=== PATIENT | male | born 1960 ===

== ENCOUNTER 2017-08-10 01:56 | Emergency (ER) | payer MEDICAID ==
[2017-08-10 02:18] VITALS: BP 128/82; PULSE 86; RESP 22; TEMP 98.9; O2SAT 98
--- NOTE | 2017-08-10 02:27 | C.PDOC ---
History Of Present Illness 56 year old male with long standing history of alcohol abuse presents to the ED c/o B/L leg swelling for the past 4 years. Patient admits to heavy alcohol consumption tonight. Patient is ambulatory in the ED. Patient denies trauma, fall, injury, SOB, CP, weakness, numbness. Chief Complaint (Nursing): Substance Abuse History Per: Patient History/Exam Limitations: no limitations Onset/Duration Of Symptoms: Days Current Symptoms Are (Timing): Still Present Suicide/Self Injury Attempted (Context): None Modifying Factor(s): Alcohol Associated Symptoms: denies: Depression, Suicidal Thoughts, Suicidal Plan Recent travel outside of the [place]: No Additional History Per: Patient Past Medical History Reviewed: Historical Data, Nursing Documentation, Vital Signs Vital Signs: Last Vital Signs Temp 98.9 F 08/10/17 02:16 Pulse 86 08/10/17 02:16 Resp 22 08/10/17 02:16 BP 128/82 08/10/17 02:16 Pulse Ox 98 08/10/17 02:27 - Medical History PMH: No Chronic Diseases Surgical History: No Surg Hx Family History: States: Unknown Family Hx - Social History Hx Tobacco Use: No Hx Alcohol Use: Yes Hx Substance Use: No - Immunization History Hx Tetanus Toxoid Vaccination: No Hx Influenza Vaccination: No Hx Pneumococcal Vaccination: No Review Of Systems Constitutional: Negative for: Fever, Chills Cardiovascular: Negative for: Chest Pain Gastrointestinal: Negative for: Abdominal Pain Musculoskeletal: Positive for: Leg Pain Skin: Negative for: Rash Psych: Negative for: Depression, Suicidal ideation Physical Exam - Physical Exam Appears: Non-toxic, No Acute Distress Skin: Normal Color, Warm, Dry Head: Atraumatic, Normacephalic Eye(s): bilateral: Normal Inspection Nose: No Discharge Oral Mucosa: Moist Neck: Normal ROM, Supple Chest: Symmetrical Cardiovascular: Rhythm Regular, No Murmur Respiratory: Normal Breath Sounds, No Rales, No Rhonchi, No Wheezing Gastrointestinal/Abdominal: Soft, No Tenderness, No Guarding, No Rebound Extremity: Normal ROM, No Tenderness, Capillary Refill (< 2 seconds), Swelling ( B/L pitting edema ) Extremity: Bilateral: Normal Color And Temperature, Normal ROM Pulses: Left Dorsalis Pedis: Normal, Right Dorsalis Pedis: Normal Neurological/Psych: Oriented x3, Normal Motor, Normal Sensation Gait: Steady ED Course And Treatment O2 Sat by Pulse Oximetry: 98 (On RA) Pulse Ox Interpretation: Normal Medical Decision Making Medical Decision Making: Impression: alcohol abuse Patient was ambulatory in the ED with no problem, patient was stable for D/C Disposition - Disposition Referrals: Non [facility] Provider, [Primary Care Provider] - Disposition: HOME/ ROUTINE Disposition Time: 02:26 Condition: FAIR Instructions: Dependent Edema (DC), Alcohol Abuse and Alcoholism (DC) Forms: Frequency (Lao) - Clinical Impression Clinical Impression: Alcohol intoxication, Chronic venous stasis dermatitis - Scribe Statement The provider has reviewed the documentation as recorded by the Scribe Neel Johnson All medical record entries made by the Scribe were at my direction and personally dictated by me. I have reviewed the chart and agree that the record accurately reflects my personal performance of the history, physical exam, medical decision making, and the department course for this patient. I have also personally directed, reviewed, and agree with the discharge instructions and disposition.
== END 2017-08-10 02:57 | disposition home or self-care (01) ==
LOC: C.ER 01:56 → SUPCPDRO 01:56 → C.ER 02:57
DX: F10.129 Alcohol abuse with intoxication, unspecified (principal); Y90.9 Presence of alcohol in blood, level not specified; I87.8 Other specified disorders of veins; I87.2 Venous insufficiency (chronic) (peripheral)

== ENCOUNTER 2018-02-27 11:25 | Inpatient (IN) | payer MEDICAID ==
[2018-02-27] MEDS ORDERED: Sodium Chloride 0.9% 1,000 ML IV ONE ×2 (12:09→15:45)
--- NOTE | 2018-02-27 12:23 | C.PDOC ---
History Of Present Illness 57 y/o male , homeless, hx of alcohol abuse, brought to ER by BLS for medical evaluation after he was found on someone's property. Currently, pt appears intoxicated, ith strong alcohol odor, arousable to verbal stimuli. Pt is unable to give history of present illness, appears not in any apparent distress. <Ynes Gill - Last Filed: 02/27/18 15:27> <Sheryl Rob - Last Filed: 02/27/18 12:57> History Per: EMS History/Exam Limitations: intoxication <Ynes Gill - Last Filed: 02/27/18 15:27> Time Seen by Provider: 02/27/18 12:09 Chief Complaint (Nursing): Substance Abuse Past Medical History Vital Signs: Last Vital Signs Temp 84 F L 02/27/18 11:54 Pulse 127 H 02/27/18 11:54 Resp 24 02/27/18 11:54 BP Pulse Ox 100 02/27/18 12:37 <Sheryl Rob - Last Filed: 02/27/18 12:57> Reviewed: Historical Data, Nursing Documentation, Vital Signs Vital Signs: Last Vital Signs Temp 84 F L 02/27/18 11:54 Pulse 127 H 02/27/18 11:54 Resp 24 02/27/18 11:54 BP Pulse Ox 100 02/27/18 11:54 Family History: States: Unknown Family Hx - Social History Hx Tobacco Use: No Hx Alcohol Use: Yes Hx Substance Use: No - Immunization History Hx Tetanus Toxoid Vaccination: No Hx Influenza Vaccination: No Hx Pneumococcal Vaccination: No <Ynes Gill - Last Filed: 02/27/18 15:27> Review Of Systems Review Of Systems: ROS cannot be obtained secondary to pt's inabilty to answer questions. (intoxicated) <Ynes Gill - Last Filed: 02/27/18 15:27> Physical Exam - Physical Exam Appears: No Acute Distress, Other (intoxicated, awake) Skin: Normal Color, Warm, Dry, No Ecchymosis Head: Atraumatic, Normacephalic Eye(s): bilateral: PERRL Nose: No Flaring Oral Mucosa: Moist, Other ((+)strong alcohol odor) Throat: No Drooling Neck: Trachea Midline, Supple Chest: Symmetrical Cardiovascular: No Murmur, No JVD Respiratory: No Decreased Breath Sounds, No Accessory Muscle Use, No Rales, No R honchi, No Stridor, No Wheezing Gastrointestinal/Abdominal: Soft, No Tenderness, No Distention, No Guarding, No Rebound Extremity: Normal ROM, No Swelling Neurological/Psych: Normal Motor, Normal Sensation, Normal Reflexes, Other (limited secondary to patient's condition) <Ynes Gill - Last Filed: 02/27/18 15:27> ED Course And Treatment - Laboratory Results Result Diagrams: 02/27/18 12:58 02/27/18 12:58 Lab Interpretation: Abnormal ECG: Interpreted By Me, Viewed By Me ECG Rhythm: Sinus Rhythm Interpretation Of ECG: NSR@70/min, RAD,prolong QT, no acute ST-T changes. note: limited due to motion artifacts Rate From EC O2 Sat by Pulse Oximetry: 100 (RA) Pulse Ox Interpretation: Normal - Radiology CXR: Read By Radiologist CXR Interpretation: Yes: Infiltrates (RLL) Progress Note: OBS pt in ED for 2 hours. case discussed with ED attending who evaluated patient as well. Blood work review, code sepsis called. Tx initiated per sepsis protocol. Case discussed with ICU attending and admission arranged to ICU. case discussed with hospitalist , admission arranged to service. <Ynes Gill - Last Filed: 02/27/18 15:27> Progress - Re-Evaluation Re-evaluation Note: 02/27/18 12:57 AWAKE INTERACTIVE. "I'M TRYING TO PEE". POOR HISTORIAN. VSS. IVF IN PROGRESS, LABS PENDING. - Data Reviewed Data Reviewed: Lab, Diagnostic imaging, EKG, Old records - Critical Care Citical Care: Excluding Proc Time Critical Care Time: 120 minutes <Sheryl Rob - Last Filed: 02/27/18 12:57> Critical Care Time - Critical Care Note Total Time (in mins): 120 Documented critical care: time excludes all time spent performing seperately billable procedures. <Ynes Gill - Last Filed: 02/27/18 15:27> Disposition <Sheryl Rob - Last Filed: 02/27/18 12:57> - Disposition Disposition Time: 14:04 <Ynes Gill - Last Filed: 02/27/18 15:27> - Disposition Disposition: HOSPITALIZED Condition: STABLE Forms: [facility] (C[place] Rican) - Clinical Impression Clinical Impression: Sepsis, Pneumonia - PA / YOKE PRESSER / Resident Statement MD/DO has reviewed & agrees with the documentation as recorded. - Scribe Statement The provider has reviewed the documentation as recorded by the Scribe Kyra Narvaez Provider Attestation All medical record entries made by the Scribe were at my direction and per sonally dictated by me. I have reviewed the chart and agree that the record accurately reflects my personal performance of the history, physical exam, medical decision making, and the department course for this patient. I have also personally directed, reviewed, and agree with the discharge instructions and disposition. <Ynes Gill - Last Filed: 02/27/18 15:27>
[2018-02-27 12:27] LABS: ABG ALLEN TEST POS; ARTERIAL BLOOD GAS HCO3 21.8 mmol/L (21-28); ARTERIAL BLOOD GAS O2 SAT 100.8 % (95-98); ARTERIAL BLOOD GAS PCO2 33 mm/Hg (35-45); ARTERIAL BLOOD GAS PH 7.39 (7.35-7.45); ARTERIAL BLOOD GAS PO2 121 mm/Hg (80-100)
[2018-02-27] MEDS ORDERED: Vancomycin 1 gm/NS 200 ml 1 GM/200 ML BAG IVPB STA (12:43)
[2018-02-27] MEDS ORDERED: Piperacill/Tazo 4.5gm in Dex 4.5 GM/100 ML BAG IVPB STA (12:43)
[2018-02-27 13:01] LABS: VENOUS BLOOD GAS BASE EXCESS -3.5 mmol/L (0.0-2.0); VENOUS BLOOD GAS PCO2 41 mmHg (40-60); VENOUS BLOOD GAS PO2 26 mm/Hg (30-55); VENOUS BLOOD PH 7.34 (7.32-7.43)
[2018-02-27 13:05] LABS: EOS # 0.2 K/uL (0.0-0.7); MONO # 0.7 K/uL (0.0-0.8); NEUT # 6.7 K/uL (1.8-7.0); RBC 2.92 Mil/uL (4.40-5.90)
[2018-02-27 13:11] LABS: BASO % 0.5 % (0.0-2.0); EOS % 2.1 % (0.0-4.0); HEMOGLOBIN 9.6 g/dL (12.0-18.0); LYMPH # 0.4 K/uL (1.0-4.3); LYMPH % 4.6 % (20.0-40.0); MEAN CELL VOLUME 94.2 fL (80.0-94.0); MEAN CORPUSCULAR HEMOGLOBIN 32.8 pg (27.0-31.0); MEAN CORPUSCULAR HGB CONC 34.8 g/dL (33.0-37.0); MEAN PLATELET VOLUME 9.2 fL (7.2-11.7); MONO % 8.8 % (0.0-10.0); NRBC % 0.1 % (0.0-2.0); RED CELL DISTRIBUTION WIDTH 18.1 % (11.5-14.5)
[2018-02-27 13:12] LABS: PH,URINE 6.5 (5.0-8.0); URINE BILIRUBIN MODERATE (NEGATIVE); URINE BLOOD SMALL (NEGATIVE); URINE CLARITY Clear (Clear); URINE GLUCOSE (UA) 100 mg/dL (Normal); URINE PROTEIN TRACE mg/dL (NEGATIVE)
[2018-02-27 13:13] LABS: SQUAMOUS EPITHIAL 1 /hpf (0-5); URINE BACTERIA OCC (<OCC); URINE LEUKOCYTE ESTERASE NEGATIVE Leu/uL (Negative)
[2018-02-27 13:13] LABS: PLATELET COUNT 87 K/uL (130-400)
[2018-02-27 13:14] LABS: INR 2.5
[2018-02-27 13:14] LABS: URINE COLOR YELLOW (YELLOW)
[2018-02-27 13:17] LABS: ALB/GLOB RATIO 0.7 (1.0-2.1); ALT/SGPT 77 U/L (21-72); AST/SGOT 494 U/L (17-59); BLOOD UREA NITROGEN 5 mg/dL (9-20); CALCIUM 7.4 mg/dl (8.6-10.4); GFR NON-AFRICAN AMERICAN > 60
--- NOTE | 2018-02-27 13:26 | RAD ---
Date of service: 02/27/2018 HISTORY: Sepsis Patient COMPARISON: No prior. FINDINGS: LUNGS: Right lower lobe infiltrate with air bronchograms consistent with acute pneumonia. PLEURA: No significant pleural effusion identified, no pneumothorax apparent. CARDIOVASCULAR: No atherosclerotic calcification present No radiographic findings to suggest acute or significant cardiovascular disease. OSSEOUS STRUCTURES: No significant abnormalities. VISUALIZED UPPER ABDOMEN: Normal. OTHER FINDINGS: None. IMPRESSION: Right lower lobe infiltrate/pneumonia.
[2018-02-27 13:31] LABS: BANDS 10 % (0-2); LYMPHOCYTE 5 % (20-40); MONOCYTE 6 % (0-10); NEUTROPHIL 79 % (50-75); TOTAL CELLS COUNTED 100
[2018-02-27 13:32] LABS: ANISOCYTOSIS SLIGHT; BURR CELLS SLIGHT; HYPOCHROMIC SLIGHT; PLATELET ESTIMATE DECREASED (NORMAL); POIKILOCYTOSIS SLIGHT; TARGET CELLS SLIGHT
[2018-02-27 13:38] LABS: BARBITURATES, UR NEGATIVE (NEGATIVE); BENZODIAZEPINES, UR NEGATIVE (NEGATIVE); OPIATES, UR NEGATIVE (NEGATIVE); PHENCYCLIDINE, UR NEGATIVE (NEGATIVE)
[2018-02-27] MEDS ORDERED: Piperacill/Tazo 3.375gm in Dex 3.375 GM/50 ML BAG IVPB SCH (15:15)
[2018-02-27] MEDS ORDERED: Vancomycin 1 gm/NS 200 ml 1 GM/200 ML BAG IVPB SCH (15:15)
[2018-02-27 15:30] LABS: B-TYPE NATRIURETIC PEPTIDE 332 pg/mL (0-900)
[2018-02-27] MEDS: Piperacill/Tazo 3.375gm in Dex 3.375 GM/50 ML BAG IVPB SCH ×2 (16:54→22:19)
[2018-02-27] MEDS: Vancomycin 1 gm/NS 200 ml 1 GM/200 ML BAG IVPB SCH (16:55)
--- NOTE | 2018-02-27 17:09 | CP.PCM.CON ---
History of Present Illness - History of Present Illness History of Present Illness: PGY1 Critical Care Consult Note for Dr. James Patient is a 57-year-old male with a past medical history of multiple visits to the ED for alcohol intoxication who presents to [facility] brought in by daniella marcos for alcohol intoxication. Of note, the patient is homeless and was found on someone else's property. ROS could not be obtained due to clinical condition. While in the ED: chest x-ray was obtained and revealed right lower lobe infiltrates. Patient treated empirically CAP. Pending cultures. Patient currently not arousable to painful stimuli, however he grimaces. A complete HPI and ROS could not be obtained due clinical condition. Review of Systems - Review of Systems Systems not reviewed;Unavailable: Acuity of Condition Past Patient History - Infectious Disease Hx of Infectious Diseases: None - Past Social History Smoking Status: Never Smoked - PSYCHIATRIC Hx Substance Use: No - SURGICAL HISTORY Hx Surgeries: No - ANESTHESIA Hx Anesthesia: No Meds Allergies/Adverse Reactions: Allergies Allergy/AdvReac Type Severity Reaction Status Date / Time No Known Allergies Allergy Verified 02/27/18 12:04 - Medications Medications: Current Medications Sodium Chloride (Sodium Chloride 0.9%) 1,000 mls @ 250 mls/hr IV .Q4H ONE Stop: 02/27/18 19:44 Last Admin: 02/27/18 16:58 Dose: 250 mls/hr Piperacillin Sod/Tazobactam Sod (Zosyn 3.375 Gm Iv Premix) 3.375 gm in 50 mls @ 100 mls/hr IVPB Q6H ASHLEIGH; Protocol Last Admin: 02/27/18 16:54 Dose: Not Given Vancomycin/Sodium Chloride (Vancomycin 1 Gm/Ns 200 Ml) 1 gm in 200 mls @ 133.333 mls/hr IVPB Q12H ASHLEIGH; Protocol Stop: 03/04/18 16:01 Last Admin: 02/27/18 16:55 Dose: Not Given Lorazepam (Ativan) 1 mg IVP Q6H PRN PRN Reason: Agitation Pantoprazole Sodium (Protonix Inj) 40 mg IVP DAILY ASHLEIGH Physical Exam - Head Exam Head Exam: ATRAUMATIC, NORMAL INSPECTION, NORMOCEPHALIC - Eye Exam Eye Exam: PERRL, Scleral icterus - ENT Exam ENT Exam: Mucous Membranes Dry - Neck Exam Neck exam: Positive for: Normal Inspection - Respiratory Exam Respiratory Exam: NORMAL BREATHING PATTERN. absent: Accessory Muscle Use, Chest Wall Tenderness - Cardiovascular Exam Cardiovascular Exam: REGULAR RHYTHM, RRR, +S1, +S2 Additional comments: 83 bpm - GI/Abdominal Exam GI & Abdominal Exam: Soft. absent: Distended - Extremities Exam Extremities exam: Positive for: pedal edema. Negative for: normal inspection Additional comments: skin dry bilaterally edema noted bilaterally - Neurological Exam Neurological exam: Altered Additional comments: corneal reflex in tact patient not arousable to verbal and/or painful stimuli + grimace with sternal rub Results - Vital Signs Recent Vital Signs: Last Vital Signs Temp 89.9 F L 02/27/18 15:58 Pulse 78 02/27/18 15:58 Resp 14 02/27/18 15:58 BP 105/63 02/27/18 15:58 Pulse Ox 100 02/27/18 15:58 - Labs Result Diagrams: 02/27/18 12:58 02/27/18 12:58 Labs: Laboratory Results - last 24 hr 02/27/18 02/27/18 02/27/18 11:54 12:20 12:51 WBC RBC Hgb Hct MCV MCH MCHC RDW Plt Count MPV Neut % (Auto) Lymph % (Auto) [place] % (Auto) Eos % (Auto) Baso % (Auto) Neut # (Auto) Lymph # (Auto) [place] # (Auto) Eos # (Auto) Baso # (Auto) Neutrophils % (Manual) Band Neutrophils % Lymphocytes % (Manual) Monocytes % (Manual) Platelet Estimate Hypochromasia (manual) Poikilocytosis (manual Anisocytosis (manual) Target Cells [place] Cells PT INR APTT Puncture Site Rra pCO2 33 L pO2 121 H HCO3 21.8 ABG pH 7.39 ABG Total CO2 21.0 L ABG O2 Saturation 100.8 H ABG Base Excess -4.1 L Rei Test Pos ABG Potassium 2.5 L* VBG pH VBG pCO2 VBG HCO3 VBG Total CO2 VBG O2 Sat (Calc) VBG Base Excess VBG Potassium A-a O2 Difference -13.0 Respiratory Index -0.1 Sodium 123.0 L Chloride 86.0 L Glucose 101 Lactate 8.0 H* FiO2 21.0 Crit Value Called To Dr espinoza Crit Value Called By [facility] Crit Value Read Back Y Blood Gas Notified Time 1227 Potassium Carbon Dioxide Anion Gap BUN Creatinine Est GFR ( Amer) Est GFR (Non-Af Amer) POC Glucose (mg/dL) 104 Random Glucose Calcium Phosphorus Magnesium Total Bilirubin AST ALT Alkaline Phosphatase Total Creatine Kinase Troponin I NT-Pro-B Natriuret Pep Total Protein Albumin Globulin Albumin/Globulin Ratio Arterial Blood Potassium 2.5 L* Venous Blood Potassium Urine Color Yellow Urine Clarity Clear Urine pH 6.5 Ur Specific [place] 1.010 Urine Protein Trace Urine Glucose (UA) 100 Urine Ketones 15 Urine Blood Small Urine Nitrate Negative Urine Bilirubin Moderate Urine Urobilinogen 4.0 Ur Leukocyte Esterase Negative Urine WBC (Auto) 2 Urine RBC (Auto) 2 Ur Squamous Epith Cells 1 Urine Bacteria Occ H Urine Opiates Screen Urine Methadone Screen Ur Barbiturates Screen Ur Phencyclidine Scrn Ur Amphetamines Screen U Benzodiazepines Scrn U Oth Cocaine Metabols U Cannabinoids Screen Alcohol, Quantitative 02/27/18 02/27/18 02/27/18 12:51 12:55 12:58 WBC 8.0 RBC 2.92 L Hgb 9.6 L Hct 27.5 L MCV 94.2 H MCH 32.8 H MCHC 34.8 RDW 18.1 H Plt Count 87 L MPV 9.2 Neut % (Auto) 84.0 H Lymph % (Auto) 4.6 L [place] % (Auto) 8.8 Eos % (Auto) 2.1 Baso % (Auto) 0.5 Neut # (Auto) 6.7 Lymph # (Auto) 0.4 L [place] # (Auto) 0.7 Eos # (Auto) 0.2 Baso # (Auto) 0.0 Neutrophils % (Manual) 79 H Band Neutrophils % 10 H Lymphocytes % (Manual) 5 L Monocytes % (Manual) 6 Platelet Estimate Decreased L Hypochromasia (manual) Slight Poikilocytosis (manual Slight Anisocytosis (manual) Slight Target Cells Slight [place] Cells Slight PT INR APTT Puncture Site pCO2 pO2 26 L HCO3 ABG pH ABG Total CO2 ABG O2 Saturation ABG Base Excess Rei Test ABG Potassium VBG pH 7.34 VBG pCO2 41 VBG HCO3 20.7 VBG Total CO2 23.4 VBG O2 Sat (Calc) 40.6 VBG Base Excess -3.5 L VBG Potassium 2.7 L A-a O2 Difference Respiratory Index Sodium 124.0 L Chloride 87.0 L Glucose 98 Lactate 7.7 H* FiO2 21.0 Crit Value Called To Dr ray Crit Value Called By [facility] Crit Value Read Back Y Blood Gas Notified Time 1300 Potassium Carbon Dioxide Anion Gap BUN Creatinine Est GFR ( Amer) Est GFR (Non-Af Amer) POC Glucose (mg/dL) Random Glucose Calcium Phosphorus Magnesium Total Bilirubin AST ALT Alkaline Phosphatase Total Creatine Kinase Troponin I NT-Pro-B Natriuret Pep Total Protein Albumin Globulin Albumin/Globulin Ratio Arterial Blood Potassium Venous Blood Potassium 2.7 L Urine Color Urine Clarity Urine pH Ur Specific [place] Urine Protein Urine Glucose (UA) Urine Ketones Urine Blood Urine Nitrate Urine Bilirubin Urine Urobilinogen Ur Leukocyte Esterase Urine WBC (Auto) Urine RBC (Auto) Ur Squamous Epith Cells Urine Bacteria Urine Opiates Screen Negative Urine Methadone Screen Negative Ur Barbiturates Screen Negative Ur Phencyclidine Scrn Negative Ur Amphetamines Screen Negative U Benzodiazepines Scrn Negative U Oth Cocaine Metabols Negative U Cannabinoids Screen Negative Alcohol, Quantitative 02/27/18 02/27/18 12:58 12:58 WBC RBC Hgb Hct MCV MCH MCHC RDW Plt Count MPV Neut % (Auto) Lymph % (Auto) [place] % (Auto) Eos % (Auto) Baso % (Auto) Neut # (Auto) Lymph # (Auto) [place] # (Auto) Eos # (Auto) Baso # (Auto) Neutrophils % (Manual) Band Neutrophils % Lymphocytes % (Manual) Monocytes % (Manual) Platelet Estimate Hypochromasia (manual) Poikilocytosis (manual Anisocytosis (manual) Target Cells [place] Cells PT 27.0 H INR 2.5 APTT 40 H Puncture Site pCO2 pO2 HCO3 ABG pH ABG Total CO2 ABG O2 Saturation ABG Base Excess Rei Test ABG Potassium VBG pH VBG pCO2 VBG HCO3 VBG Total CO2 VBG O2 Sat (Calc) VBG Base Excess VBG Potassium A-a O2 Difference Respiratory Index Sodium 123 L Chloride 82 L Glucose Lactate FiO2 Crit Value Called To Crit Value Called By Crit Value Read Back Blood Gas Notified Time Potassium 3.0 L Carbon Dioxide 22 Anion Gap 21 H BUN 5 L Creatinine 0.5 L Est GFR ( Amer) > 60 Est GFR (Non-Af Amer) > 60 POC Glucose (mg/dL) Random Glucose 107 Calcium 7.4 L Phosphorus 1.3 L Magnesium 1.7 Total Bilirubin 7.9 H AST 494 H ALT 77 H Alkaline Phosphatase 202 H Total Creatine Kinase 589 H Troponin I < 0.0120 NT-Pro-B Natriuret Pep 332 Total Protein 7.5 Albumin 3.0 L Globulin 4.5 H Albumin/Globulin Ratio 0.7 L Arterial Blood Potassium Venous Blood Potassium Urine Color Urine Clarity Urine pH Ur Specific [place] Urine Protein Urine Glucose (UA) Urine Ketones Urine Blood Urine Nitrate Urine Bilirubin Urine Urobilinogen Ur Leukocyte Esterase Urine WBC (Auto) Urine RBC (Auto) Ur Squamous Epith Cells Urine Bacteria Urine Opiates Screen Urine Methadone Screen Ur Barbiturates Screen Ur Phencyclidine Scrn Ur Amphetamines Screen U Benzodiazepines Scrn U Oth Cocaine Metabols U Cannabinoids Screen Alcohol, Quantitative 287 H Assessment & Plan - Assessment and Plan (Free Text) Assessment: Patient is a 57-year-old male with a past medical history of multiple visits to the ED for alcohol intoxication who presents to [facility] brought in by ambulance for alcohol intoxication. Of note, the patient is homeless and was found on someone else's property. While in the ED: chest x-ray was obtained and revealed right lower lobe infiltrates. Patient treated empirically CAP. Pending cultures. Patient currently not arousable to painful stimuli, however he grimaces. Neuro: - Patient is altered - UDS pending - Ammonia level pending - Start lactulose - Hyponatremia - Hypothermia: warming blankets - Urine Na, urine osm, serum osm, pending - CT head without contrast ordered - CTA of head and neck ordered - Neuro checks Q2 CV: - No acute issues - EKG obtained - patient monitor Pulm: - CXR: left lower lobe infiltrates - Start empiric antibiotics for CAP - Monitor CBC with diff, ABG Renal: - Hyponatremia - Hypophosphatemia; replete as needed - Hypokalemia; replete as needed - Urine Na, urine osm, serum osm, pending - Monitor with CMP, Mg, Phos GI: - Abd ultrasound pending - NG tube - NPO except meds - PPx: protonix 40mg IVP daily ID: - Hepatitis panel ordered - Empiric antibiotics for CAP - MRSA screen pending - Blood cultures pending - Urine cultures pending PPx: - GI: Protonix 40mg IVP daily - DVT: SCD contraindicated Patient seen and case discussed with Dr. Jacob Miller PGY1
[2018-02-27] MEDS ORDERED: Potassium & Sodium Phosphate PO ONE (17:14)
[2018-02-27] MEDS ORDERED: Albumin Human 25% (12.5 gm/50 ml) IV ONE (17:27)
--- NOTE | 2018-02-27 17:30 | CP.PCM.HP ---
<Bobo Miller - Last Filed: 02/27/18 17:28> History of Present Illness - History of Present Illness History of Present Illness: PGY1 History and Physical Exam Note for Dr. Giraldo Patient is a 57-year-old male with a past medical history of multiple visits to the ED for alcohol intoxication who presents to [facility] brought in by ambulance for alcohol intoxication. Of note, the patient is homeless and was found on someone else's property. ROS could not be obtained due to clinical condition. While in the ED: chest x-ray was obtained and revealed right lower lobe infiltrates. Patient treated empirically CAP. Pending cultures. Patient currently not arousable to painful stimuli, however he grimaces. A complete HPI and ROS could not be obtained due clinical condition. Present on Admission - Present on Admission Any Indicators Present on Admission: No History of DVT/PE: No History of Uncontrolled Diabetes: No Urinary Catheter: No Decubitus Ulcer Present: No History Surgical Site Infection Following: None Review of Systems - Review of Systems Systems not reviewed;Unavailable: Acuity of Condition Past Patient History - Infectious Disease Hx of Infectious Diseases: None - Past Social History Smoking Status: Never Smoked - PSYCHIATRIC Hx Substance Use: No - SURGICAL HISTORY Hx Surgeries: No - ANESTHESIA Hx Anesthesia: No Meds Allergies/Adverse Reactions: Allergies Allergy/AdvReac Type Severity Reaction Status Date / Time No Known Allergies Allergy Verified 02/27/18 12:04 Physical Exam - Additional Findings Additional findings: - Head Exam Head Exam: ATRAUMATIC, NORMAL INSPECTION, NORMOCEPHALIC - Eye Exam Eye Exam: PERRL, Scleral icterus - ENT Exam ENT Exam: Mucous Membranes Dry - Neck Exam Neck exam: Positive for: Normal Inspection - Respiratory Exam Respiratory Exam: NORMAL BREATHING PATTERN. absent: Accessory Muscle Use, Chest Wall Tenderness - Cardiovascular Exam Cardiovascular Exam: REGULAR RHYTHM, RRR, +S1, +S2 Additional comments: 83 bpm - GI/Abdominal Exam GI & Abdominal Exam: Soft. absent: Distended - Extremities Exam Extremities exam: Positive for: pedal edema. Negative for: normal inspection Additional comments: skin dry bilaterally edema noted bilaterally Results - Vital Signs Recent Vital Signs: Last Vital Signs Temp 89.9 F L 02/27/18 15:58 Pulse 78 02/27/18 15:58 Resp 14 02/27/18 15:58 BP 105/63 02/27/18 15:58 Pulse Ox 100 02/27/18 15:58 - Labs Result Diagrams: 02/27/18 12:58 02/27/18 12:58 Labs: Laboratory Results - last 24 hr 02/27/18 02/27/18 02/27/18 11:54 12:20 12:51 WBC RBC Hgb Hct MCV MCH MCHC RDW Plt Count MPV Neut % (Auto) Lymph % (Auto) [place] % (Auto) Eos % (Auto) Baso % (Auto) Neut # (Auto) Lymph # (Auto) [place] # (Auto) Eos # (Auto) Baso # (Auto) Neutrophils % (Manual) Band Neutrophils % Lymphocytes % (Manual) Monocytes % (Manual) Platelet Estimate Hypochromasia (manual) Poikilocytosis (manual Anisocytosis (manual) Target Cells [place] Cells PT INR APTT Puncture Site Rra pCO2 33 L pO2 121 H HCO3 21.8 ABG pH 7.39 ABG Total CO2 21.0 L ABG O2 Saturation 100.8 H ABG Base Excess -4.1 L Rei Test Pos ABG Potassium 2.5 L* VBG pH VBG pCO2 VBG HCO3 VBG Total CO2 VBG O2 Sat (Calc) VBG Base Excess VBG Potassium A-a O2 Difference -13.0 Respiratory Index -0.1 Sodium 123.0 L Chloride 86.0 L Glucose 101 Lactate 8.0 H* FiO2 21.0 Crit Value Called To Dr espinoza Crit Value Called By [facility] Crit Value Read Back Y Blood Gas Notified Time 1227 Potassium Carbon Dioxide Anion Gap BUN Creatinine Est GFR ( Amer) Est GFR (Non-Af Amer) POC Glucose (mg/dL) 104 Random Glucose Calcium Phosphorus Magnesium Total Bilirubin AST ALT Alkaline Phosphatase Total Creatine Kinase Troponin I NT-Pro-B Natriuret Pep Total Protein Albumin Globulin Albumin/Globulin Ratio Arterial Blood Potassium 2.5 L* Venous Blood Potassium Urine Color Yellow Urine Clarity Clear Urine pH 6.5 Ur Specific [place] 1.010 Urine Protein Trace Urine Glucose (UA) 100 Urine Ketones 15 Urine Blood Small Urine Nitrate Negative Urine Bilirubin Moderate Urine Urobilinogen 4.0 Ur Leukocyte Esterase Negative Urine WBC (Auto) 2 Urine RBC (Auto) 2 Ur Squamous Epith Cells 1 Urine Bacteria Occ H Urine Opiates Screen Urine Methadone Screen Ur Barbiturates Screen Ur Phencyclidine Scrn Ur Amphetamines Screen U Benzodiazepines Scrn U Oth Cocaine Metabols U Cannabinoids Screen Alcohol, Quantitative 02/27/18 02/27/18 02/27/18 12:51 12:55 12:58 WBC 8.0 RBC 2.92 L Hgb 9.6 L Hct 27.5 L MCV 94.2 H MCH 32.8 H MCHC 34.8 RDW 18.1 H Plt Count 87 L MPV 9.2 Neut % (Auto) 84.0 H Lymph % (Auto) 4.6 L [place] % (Auto) 8.8 Eos % (Auto) 2.1 Baso % (Auto) 0.5 Neut # (Auto) 6.7 Lymph # (Auto) 0.4 L [place] # (Auto) 0.7 Eos # (Auto) 0.2 Baso # (Auto) 0.0 Neutrophils % (Manual) 79 H Band Neutrophils % 10 H Lymphocytes % (Manual) 5 L Monocytes % (Manual) 6 Platelet Estimate Decreased L Hypochromasia (manual) Slight Poikilocytosis (manual Slight Anisocytosis (manual) Slight Target Cells Slight Rhona Cells Slight PT INR APTT Puncture Site pCO2 pO2 26 L HCO3 ABG pH ABG Total CO2 ABG O2 Saturation ABG Base Excess Rei Test ABG Potassium VBG pH 7.34 VBG pCO2 41 VBG HCO3 20.7 VBG Total CO2 23.4 VBG O2 Sat (Calc) 40.6 VBG Base Excess -3.5 L VBG Potassium 2.7 L A-a O2 Difference Respiratory Index Sodium 124.0 L Chloride 87.0 L Glucose 98 Lactate 7.7 H* FiO2 21.0 Crit Value Called To Dr ray Crit Value Called By [facility] Crit Value Read Back Y Blood Gas Notified Time 1300 Potassium Carbon Dioxide Anion Gap BUN Creatinine Est GFR ( Amer) Est GFR (Non-Af Amer) POC Glucose (mg/dL) Random Glucose Calcium Phosphorus Magnesium Total Bilirubin AST ALT Alkaline Phosphatase Total Creatine Kinase Troponin I NT-Pro-B Natriuret Pep Total Protein Albumin Globulin Albumin/Globulin Ratio Arterial Blood Potassium Venous Blood Potassium 2.7 L Urine Color Urine Clarity Urine pH Ur Specific [place] Urine Protein Urine Glucose (UA) Urine Ketones Urine Blood Urine Nitrate Urine Bilirubin Urine Urobilinogen Ur Leukocyte Esterase Urine WBC (Auto) Urine RBC (Auto) Ur Squamous Epith Cells Urine Bacteria Urine Opiates Screen Negative Urine Methadone Screen Negative Ur Barbiturates Screen Negative Ur Phencyclidine Scrn Negative Ur Amphetamines Screen Negative U Benzodiazepines Scrn Negative U Oth Cocaine Metabols Negative U Cannabinoids Screen Negative Alcohol, Quantitative 02/27/18 02/27/18 12:58 12:58 WBC RBC Hgb Hct MCV MCH MCHC RDW Plt Count MPV Neut % (Auto) Lymph % (Auto) [place] % (Auto) Eos % (Auto) Baso % (Auto) Neut # (Auto) Lymph # (Auto) [place] # (Auto) Eos # (Auto) Baso # (Auto) Neutrophils % (Manual) Band Neutrophils % Lymphocytes % (Manual) Monocytes % (Manual) Platelet Estimate Hypochromasia (manual) Poikilocytosis (manual Anisocytosis (manual) Target Cells [place] Cells PT 27.0 H INR 2.5 APTT 40 H Puncture Site pCO2 pO2 HCO3 ABG pH ABG Total CO2 ABG O2 Saturation ABG Base Excess Rei Test ABG Potassium VBG pH VBG pCO2 VBG HCO3 VBG Total CO2 VBG O2 Sat (Calc) VBG Base Excess VBG Potassium A-a O2 Difference Respiratory Index Sodium 123 L Chloride 82 L Glucose Lactate FiO2 Crit Value Called To Crit Value Called By Crit Value Read Back Blood Gas Notified Time Potassium 3.0 L Carbon Dioxide 22 Anion Gap 21 H BUN 5 L Creatinine 0.5 L Est GFR ( Amer) > 60 Est GFR (Non-Af Amer) > 60 POC Glucose (mg/dL) Random Glucose 107 Calcium 7.4 L Phosphorus 1.3 L Magnesium 1.7 Total Bilirubin 7.9 H AST 494 H ALT 77 H Alkaline Phosphatase 202 H Total Creatine Kinase 589 H Troponin I < 0.0120 NT-Pro-B Natriuret Pep 332 Total Protein 7.5 Albumin 3.0 L Globulin 4.5 H Albumin/Globulin Ratio 0.7 L Arterial Blood Potassium Venous Blood Potassium Urine Color Urine Clarity Urine pH Ur Specific [place] Urine Protein Urine Glucose (UA) Urine Ketones Urine Blood Urine Nitrate Urine Bilirubin Urine Urobilinogen Ur Leukocyte Esterase Urine WBC (Auto) Urine RBC (Auto) Ur Squamous Epith Cells Urine Bacteria Urine Opiates Screen Urine Methadone Screen Ur Barbiturates Screen Ur Phencyclidine Scrn Ur Amphetamines Screen U Benzodiazepines Scrn U Oth Cocaine Metabols U Cannabinoids Screen Alcohol, Quantitative 287 H Assessment & Plan - Assessment and Plan (Free Text) Assessment: Patient is a 57-year-old male with a past medical history of multiple visits to the ED for alcohol intoxication who presents to [facility] brought in by ambulance for alcohol intoxication. Of note, the patient is homeless and was found on someone else's property. While in the ED: chest x-ray was obtained and revealed right lower lobe infiltrates. Patient treated empirically CAP. Pending cultures. Patient currently not arousable to painful stimuli, however he grimaces. Neuro: - Patient is altered - UDS pending - Ammonia level pending - Start lactulose - Hyponatremia - Hypothermia: warming blankets - Urine Na, urine osm, serum osm, pending - CT head without contrast ordered - CTA of head and neck ordered - Neuro checks Q2 CV: - No acute issues - EKG obtained - rn lpn lvn Pulm: - CXR: left lower lobe infiltrates - Start empiric antibiotics for CAP - Monitor CBC with diff, ABG Renal: - Hyponatremia - Hypophosphatemia; replete as needed - Hypokalemia; replete as needed - Urine Na, urine osm, serum osm, pending - Monitor with CMP, Mg, Phos GI: - Abd ultrasound pending - NG tube - NPO except meds - PPx: protonix 40mg IVP daily ID: - Hepatitis panel ordered - Empiric antibiotics for CAP - MRSA screen pending - Blood cultures pending - Urine cultures pending PPx: - GI: Protonix 40mg IVP daily - DVT: SCD contraindicated Patient seen and case discussed with attending physician Bobo Miller PGY1 <Jerardo Giraldo - Last Filed: 02/27/18 19:27> Results - Vital Signs Recent Vital Signs: Last Vital Signs Temp 89.9 F L 02/27/18 15:58 Pulse 78 02/27/18 15:58 Resp 14 02/27/18 15:58 BP 105/63 02/27/18 15:58 Pulse Ox 100 02/27/18 15:58 - Labs Result Diagrams: 02/27/18 12:58 02/27/18 12:58 Labs: Laboratory Results - last 24 hr 02/27/18 02/27/18 02/27/18 11:54 12:20 12:51 WBC RBC Hgb Hct MCV MCH MCHC RDW Plt Count MPV Neut % (Auto) Lymph % (Auto) [place] % (Auto) Eos % (Auto) Baso % (Auto) Neut # (Auto) Lymph # (Auto) [place] # (Auto) Eos # (Auto) Baso # (Auto) Neutrophils % (Manual) Band Neutrophils % Lymphocytes % (Manual) Monocytes % (Manual) Platelet Estimate Hypochromasia (manual) Poikilocytosis (manual Anisocytosis (manual) Target Cells Rhona Cells PT INR APTT Puncture Site Rra pCO2 33 L pO2 121 H HCO3 21.8 ABG pH 7.39 ABG Total CO2 21.0 L ABG O2 Saturation 100.8 H ABG Base Excess -4.1 L Rei Test Pos ABG Potassium 2.5 L* VBG pH VBG pCO2 VBG HCO3 VBG Total CO2 VBG O2 Sat (Calc) VBG Base Excess VBG Potassium A-a O2 Difference -13.0 Respiratory Index -0.1 Sodium 123.0 L Chloride 86.0 L Glucose 101 Lactate 8.0 H* FiO2 21.0 Crit Value Called To Dr espinoza Crit Value Called By [facility] Crit Value Read Back Y Blood Gas Notified Time 1227 Potassium Carbon Dioxide Anion Gap BUN Creatinine Est GFR ( Amer) Est GFR (Non-Af Amer) POC Glucose (mg/dL) 104 Random Glucose Calcium Phosphorus Magnesium Total Bilirubin AST ALT Alkaline Phosphatase Ammonia Total Creatine Kinase Troponin I NT-Pro-B Natriuret Pep Total Protein Albumin Globulin Albumin/Globulin Ratio Arterial Blood Potassium 2.5 L* Venous Blood Potassium Urine Color Yellow Urine Clarity Clear Urine pH 6.5 Ur Specific [place] 1.010 Urine Protein Trace Urine Glucose (UA) 100 Urine Ketones 15 Urine Blood Small Urine Nitrate Negative Urine Bilirubin Moderate Urine Urobilinogen 4.0 Ur Leukocyte Esterase Negative Urine WBC (Auto) 2 Urine RBC (Auto) 2 Ur Squamous Epith Cells 1 Urine Bacteria Occ H Urine Opiates Screen Urine Methadone Screen Ur Barbiturates Screen Ur Phencyclidine Scrn Ur Amphetamines Screen U Benzodiazepines Scrn U Oth Cocaine Metabols U Cannabinoids Screen Alcohol, Quantitative 02/27/18 02/27/18 02/27/18 12:51 12:55 12:58 WBC 8.0 RBC 2.92 L Hgb 9.6 L Hct 27.5 L MCV 94.2 H MCH 32.8 H MCHC 34.8 RDW 18.1 H Plt Count 87 L MPV 9.2 Neut % (Auto) 84.0 H Lymph % (Auto) 4.6 L [place] % (Auto) 8.8 Eos % (Auto) 2.1 Baso % (Auto) 0.5 Neut # (Auto) 6.7 Lymph # (Auto) 0.4 L [place] # (Auto) 0.7 Eos # (Auto) 0.2 Baso # (Auto) 0.0 Neutrophils % (Manual) 79 H Band Neutrophils % 10 H Lymphocytes % (Manual) 5 L Monocytes % (Manual) 6 Platelet Estimate Decreased L Hypochromasia (manual) Slight Poikilocytosis (manual Slight Anisocytosis (manual) Slight Target Cells Slight Rhona Cells Slight PT INR APTT Puncture Site pCO2 pO2 26 L HCO3 ABG pH ABG Total CO2 ABG O2 Saturation ABG Base Excess Rei Test ABG Potassium VBG pH 7.34 VBG pCO2 41 VBG HCO3 20.7 VBG Total CO2 23.4 VBG O2 Sat (Calc) 40.6 VBG Base Excess -3.5 L VBG Potassium 2.7 L A-a O2 Difference Respiratory Index Sodium 124.0 L Chloride 87.0 L Glucose 98 Lactate 7.7 H* FiO2 21.0 Crit Value Called To Dr ray Crit Value Called By [facility] Crit Value Read Back Y Blood Gas Notified Time 1300 Potassium Carbon Dioxide Anion Gap BUN Creatinine Est GFR ( Amer) Est GFR (Non-Af Amer) POC Glucose (mg/dL) Random Glucose Calcium Phosphorus Magnesium Total Bilirubin AST ALT Alkaline Phosphatase Ammonia Total Creatine Kinase Troponin I NT-Pro-B Natriuret Pep Total Protein Albumin Globulin Albumin/Globulin Ratio Arterial Blood Potassium Venous Blood Potassium 2.7 L Urine Color Urine Clarity Urine pH Ur Specific [place] Urine Protein Urine Glucose (UA) Urine Ketones Urine Blood Urine Nitrate Urine Bilirubin Urine Urobilinogen Ur Leukocyte Esterase Urine WBC (Auto) Urine RBC (Auto) Ur Squamous Epith Cells Urine Bacteria Urine Opiates Screen Negative Urine Methadone Screen Negative Ur Barbiturates Screen Negative Ur Phencyclidine Scrn Negative Ur Amphetamines Screen Negative U Benzodiazepines Scrn Negative U Oth Cocaine Metabols Negative U Cannabinoids Screen Negative Alcohol, Quantitative 02/27/18 02/27/18 02/27/18 12:58 12:58 18:44 WBC RBC Hgb Hct MCV MCH MCHC RDW Plt Count MPV Neut % (Auto) Lymph % (Auto) [place] % (Auto) Eos % (Auto) Baso % (Auto) Neut # (Auto) Lymph # (Auto) [place] # (Auto) Eos # (Auto) Baso # (Auto) Neutrophils % (Manual) Band Neutrophils % Lymphocytes % (Manual) Monocytes % (Manual) Platelet Estimate Hypochromasia (manual) Poikilocytosis (manual Anisocytosis (manual) Target Cells [place] Cells PT 27.0 H INR 2.5 APTT 40 H Puncture Site pCO2 pO2 HCO3 ABG pH ABG Total CO2 ABG O2 Saturation ABG Base Excess Rei Test ABG Potassium VBG pH VBG pCO2 VBG HCO3 VBG Total CO2 VBG O2 Sat (Calc) VBG Base Excess VBG Potassium A-a O2 Difference Respiratory Index Sodium 123 L Chloride 82 L Glucose Lactate FiO2 Crit Value Called To Crit Value Called By Crit Value Read Back Blood Gas Notified Time Potassium 3.0 L Carbon Dioxide 22 Anion Gap 21 H BUN 5 L Creatinine 0.5 L Est GFR ( Amer) > 60 Est GFR (Non-Af Amer) > 60 POC Glucose (mg/dL) Random Glucose 107 Calcium 7.4 L Phosphorus 1.3 L Magnesium 1.7 Total Bilirubin 7.9 H AST 494 H ALT 77 H Alkaline Phosphatase 202 H Ammonia 9 Total Creatine Kinase 589 H Troponin I < 0.0120 NT-Pro-B Natriuret Pep 332 Total Protein 7.5 Albumin 3.0 L Globulin 4.5 H Albumin/Globulin Ratio 0.7 L Arterial Blood Potassium Venous Blood Potassium Urine Color Urine Clarity Urine pH Ur Specific [place] Urine Protein Urine Glucose (UA) Urine Ketones Urine Blood Urine Nitrate Urine Bilirubin Urine Urobilinogen Ur Leukocyte Esterase Urine WBC (Auto) Urine RBC (Auto) Ur Squamous Epith Cells Urine Bacteria Urine Opiates Screen Urine Methadone Screen Ur Barbiturates Screen Ur Phencyclidine Scrn Ur Amphetamines Screen U Benzodiazepines Scrn U Oth Cocaine Metabols U Cannabinoids Screen Alcohol, Quantitative 287 H Attending/Attestation - Attestation I have personally seen and examined this patient.: Yes I have fully participated in the care of the patient.: Yes I have reviewed all pertinent clinical information: Yes Notes (Text): 02/27/18 19:07 Patient was seen and examined in the ICU at 6:45 PM 02/27/18. General: not arousable HEENT: NCA, Pupils are round and reactive to light, Bilateral Scleral Incterus, NO lymphadenopathy, Nasal Turbinates and Oral Mucosa is moist Cardio: NS1 and NS2, NO M/R/G Resp: CTA B/L NO R/R/W however limited by lack of patient participation GI: BS X 4, Soft, Distention is present Ext: Pulses are strong and equal and Capillary Refill is 2 seconds in bilateral UE and LE, Skin changes consistent with chronic venous insufficiency in the bilateral lower legs to the ankles Neuro: not possible at this time 1). RLL Infiltrate Vancomycin 1 gm IV Q12H Zosyn 3.375 gm IV Q6H F/U Blood Culture F/U Urine Culture F/U Mycoplasma IgG and IgM F/U Urine Legionella Ag F/U Urine Strep pneumonaei Ag 2). Low K, Low Phos Being repleted 3). Hypothermia Cooling [place] IVF 4). Found on Ground Outside F/U CT Head F/U CT Head and Neck 5). Alcohol Abuse Monitor for signs of withdrawl 6). Anemia Likely Secondary to Hx Alcohol Abuse Monitor HgB/Hct F/U Vitamin B12 F/U Folate F/U Iron Studies 7). Thrombocytopenia Likely Secondary to Hx Alcohol Abuse Monitor Hold anticoagulation 8). Elevated LFTs Likely Secondary to Hx Alcohol Abuse F/U Abdominal U/S F/U Hepatitis Panel F/U HIV 4th Generation 9). Hyponatremia SIADH vs. Adrenal Insufficiency vs. Hyponatremia vs Hyperprolactinemia F/U Urine Osmolalilty F/U Urine Na F/U TSH, Free T4 F/U AM Cortisol F/U Prolactin Level F/U Lipid Panel 10). Elevated CPK Could be secondary to Rhabdomyolysis IVF Jerardo Giraldo D.O.
[2018-02-27 19:36] LABS: HEPATITIS B SURFACE AG Negative (NEGATIVE)
[2018-02-27 19:42] LABS: HEPATITIS A IGM NEGATIVE (NEGATIVE); HEPATITIS B CORE AB NEGATIVE (NEGATIVE)
[2018-02-27 19:53] LABS: HEPATITIS C ANTIBODY NEGATIVE (NEGATIVE)
[2018-02-27] MEDS ORDERED: Iodixanol 320 MG/ML 100 ML BOTTLE IV ONE (20:03)
[2018-02-27 23:30] LABS: OSMOLALITY,URINE 455 mosm/kg (300-1000)
[2018-02-27 23:51] LABS: BARBITURATES, UR NEGATIVE (NEGATIVE); BENZODIAZEPINES, UR NEGATIVE (NEGATIVE); OPIATES, UR NEGATIVE (NEGATIVE)
[2018-02-28 01:38] LABS: PHENCYCLIDINE, UR NEGATIVE (NEGATIVE)
[2018-02-28] MEDS: Piperacill/Tazo 3.375gm in Dex 3.375 GM/50 ML BAG IVPB SCH ×4 (04:14→21:31)
[2018-02-28] MEDS: Vancomycin 1 gm/NS 200 ml 1 GM/200 ML BAG IVPB SCH ×2 (04:15→15:46)
[2018-02-28 06:51] LABS: IRON 117 ug/dL (49-181)
[2018-02-28 07:01] LABS: % IRON SATURATION 56 (20-55); TOTAL IRON BINDING CAPACITY 210 ug/dL (250-450)
[2018-02-28 07:02] LABS: % IRON SATURATION 55 (20-55); TOTAL IRON BINDING CAPACITY 212 ug/dL (250-450)
[2018-02-28 07:09] LABS: PROLACTIN 21.3 ng/mL (3.7-17.9)
[2018-02-28 07:18] LABS: BASO % 0.3 % (0.0-2.0); EOS # 0.2 K/uL (0.0-0.7); EOS % 2.3 % (0.0-4.0); HEMOGLOBIN 8.3 g/dL (12.0-18.0); LYMPH # 0.3 K/uL (1.0-4.3); LYMPH % 3.1 % (20.0-40.0); MEAN CELL VOLUME 95.1 fL (80.0-94.0); MEAN CORPUSCULAR HGB CONC 34.7 g/dL (33.0-37.0); MEAN PLATELET VOLUME 9.1 fL (7.2-11.7); MONO # 0.9 K/uL (0.0-0.8); MONO % 9.4 % (0.0-10.0); NEUT # 8.2 K/uL (1.8-7.0); NEUT % 84.9 % (50.0-75.0); NRBC % 0.2 % (0.0-2.0); PLATELET COUNT 86 K/uL (130-400); RBC 2.51 Mil/uL (4.40-5.90); RED CELL DISTRIBUTION WIDTH 17.9 % (11.5-14.5); WHITE BLOOD COUNT 9.7 K/uL (4.8-10.8)
[2018-02-28 07:30] LABS: ALB/GLOB RATIO 0.7 (1.0-2.1); ALBUMIN 2.9 g/dL (3.5-5.0); ALT/SGPT 90 U/L (21-72); AST/SGOT 543 U/L (17-59); BLOOD UREA NITROGEN 6 mg/dL (9-20); GFR NON-AFRICAN AMERICAN > 60
[2018-02-28] MEDS ORDERED: Dextrose 5%/0.9% NS 1,000 ML IV ONE (07:43)
[2018-02-28] MEDS ORDERED: Glucagon Recombinant 1 mg Inj IM PRN (07:44)
[2018-02-28 07:45] LABS: INR 1.8; PROTHROMBIN TIME 19.9 SECONDS (9.7-12.2)
[2018-02-28 07:58] LABS: FOLATE 3.3 ng/mL
[2018-02-28] MEDS ORDERED: Dextrose 50% SYRINGE Inj (50 ml) IV ONE (08:15)
[2018-02-28] MEDS ORDERED: Multivitamin (MVI) 10 ML, Thiamine 100 MG, Folic Acid 1 MG in Sodium Chloride 0.9% 1,00... IV ONE (08:30)
[2018-02-28 08:33] LABS: BANDS 9 % (0-2); LYMPHOCYTE 2 % (20-40); MONOCYTE 10 % (0-10); NEUTROPHIL 79 % (50-75); PLATELET ESTIMATE DECREASED (NORMAL); TOTAL CELLS COUNTED 100
[2018-02-28 08:34] LABS: ANISOCYTOSIS SLIGHT; TARGET CELLS MODERATE
--- NOTE | 2018-02-28 09:12 | CP.PCM.CON ---
<Clara Siddiqui - Last Filed: 02/28/18 19:34> History of Present Illness - History of Present Illness History of Present Illness: Neurology Consult Note This is a 57 year old male with past medical history of chronic alcoholic abuse, who was referred to our service by Dr. Matthews, after the patient presented to the ED after being found intoxicated on someone's property. Patient speaks Gujrati and some Chinese. On exam this morning patient was aware of the month, y ear, and president, but he does not know where he is currently. Patient is homeless, but reports he has family who lives [facility]. At this time, patient's speech was understandable. Patient was reevaluated with Attending during afternoon rounds, at this time patient's speech was garbled and he was unable to answer questions appropriately. I was notified by the nurse he was given ativan 1 mg IV 4 hours prior to reexamination. Repeat Head CT was ordered as a precaution. PMHx: As noted above PSHx: Unattainable Meds: Unattainable All: NKDA SHx: Unattainable FHx: Unattainable Review of Systems - Review of Systems Systems not reviewed;Unavailable: Altered Mental Status Past Patient History - Infectious Disease Hx of Infectious Diseases: None - Past Medical History & Family History Past Medical History?: No - Past Social History Smoking Status: Unknown If Ever Smoked - MUSCULOSKELETAL/RHEUMATOLOGICAL Hx Falls: Yes - PSYCHIATRIC Hx Substance Use: No - SURGICAL HISTORY Hx Surgeries: No - ANESTHESIA Hx Anesthesia: No Meds Allergies/Adverse Reactions: Allergies Allergy/AdvReac Type Severity Reaction Status Date / Time No Known Allergies Allergy Verified 02/27/18 12:04 - Medications Medications: Current Medications Dextrose (Glutose 15) 0 gm PO ONCE PRN; Protocol PRN Reason: Hypoglycemia Protocol Glucagon (Glucagen Diagnostic Kit) 1 mg IM STAT PRN; Protocol PRN Reason: Hypoglycemia Protocol Piperacillin Sod/Tazobactam Sod (Zosyn 3.375 Gm Iv Premix) 3.375 gm in 50 mls @ 100 mls/hr IVPB Q6H A[facility]IGH; Protocol Last Admin: 02/28/18 04:14 Dose: 100 mls/hr Vancomycin/Sodium Chloride (Vancomycin 1 Gm/Ns 200 Ml) 1 gm in 200 mls @ 133.333 mls/hr IVPB Q12H A[facility]; Protocol Stop: 03/04/18 16:01 Last Admin: 02/28/18 04:15 Dose: 133.333 mls/hr Dextrose (Dextrose 5% In Water 1000 Ml) 1,000 mls @ 0 mls/hr IV .Q0M PRN; Protocol PRN Reason: Hypoglycemia Protocol Potassium Chloride (Potassium Chloride 20 Meq/100 Ml) 20 meq in 100 mls @ 50 mls/hr IVPB ONCE ONE Stop: 02/28/18 10:14 Last Admin: 02/28/18 08:13 Dose: 50 mls/hr Multivitamins/Vitamin C 10 ml/Thiamine HCl 100 mg/ Folic Acid 1 mg/ Sodium Chloride 1,011.2 mls @ 100 mls/hr IV .Q10H7M ONE Stop: 02/28/18 18:36 Lactobacillus Acidophilus (Bacid Acidophilus) 1 cap PO BID A[facility]IGH Lorazepam (Ativan) 1 mg IVP Q6H PRN PRN Reason: Agitation Pantoprazole Sodium (Protonix Inj) 40 mg IVP DAILY A[facility]IGH Physical Exam - Constitutional Appears: No Acute Distress, Unkempt, Older Than Stated Age - Head Exam Head Exam: NORMAL INSPECTION, NORMOCEPHALIC - Eye Exam Eye Exam: PERRL, Scleral icterus. absent: Nystagmus - ENT Exam ENT Exam: Mucous Membranes Dry - Respiratory Exam Respiratory Exam: Decreased Breath Sounds - Cardiovascular Exam Cardiovascular Exam: +S1, +S2 - GI/Abdominal Exam GI & Abdominal Exam: Normal Bowel Sounds, Soft. absent: Distended, Tenderness - Rectal Exam Rectal Exam: Deferred - Extremities Exam Extremities exam: Positive for: normal inspection, pedal edema, tenderness, pedal pulses present - Neurological Exam Neurological exam: Alert, Altered, CN II-XII Intact, Reflexes Normal Additional comments: patient not cooperative with most of neuro exam - Expanded Neurological Exam Expanded Speech: Garbled Speech Neuro motor strength exam: Left Upper Extremity: 5, Left Lower Extremity: 5 DTR: Patellar Left: 2+, Patellar Right: 2+ - Psychiatric Exam Psychiatric exam: Normal Affect, Normal Mood - Skin Skin Exam: Dry, Intact, Normal Color, Warm Results - Vital Signs Recent Vital Signs: Last Vital Signs Temp 90.4 F L 02/27/18 18:00 Pulse 126 H 02/28/18 07:02 Resp 42 H 02/28/18 07:02 BP 145/73 02/28/18 07:02 Pulse Ox 93 L 02/28/18 07:02 - Labs Result Diagrams: 02/28/18 07:14 02/28/18 07:14 Labs: Laboratory Results - last 24 hr 02/27/18 02/27/18 02/27/18 11:54 12:20 12:51 WBC RBC Hgb Hct MCV MCH MCHC RDW Plt Count MPV Neut % (Auto) Lymph % (Auto) [place] % (Auto) Eos % (Auto) Baso % (Auto) Neut # (Auto) Lymph # (Auto) [place] # (Auto) Eos # (Auto) Baso # (Auto) Neutrophils % (Manual) Band Neutrophils % Lymphocytes % (Manual) Monocytes % (Manual) Platelet Estimate Hypochromasia (manual) Poikilocytosis (manual Anisocytosis (manual) Target Cells [place] Cells PT INR APTT Puncture Site Rra pCO2 33 L pO2 121 H HCO3 21.8 ABG pH 7.39 ABG Total CO2 21.0 L ABG O2 Saturation 100.8 H ABG Base Excess -4.1 L Rei Test Pos ABG Potassium 2.5 L* VBG pH VBG pCO2 VBG HCO3 VBG Total CO2 VBG O2 Sat (Calc) VBG Base Excess VBG Potassium A-a O2 Difference -13.0 Respiratory Index -0.1 Sodium 123.0 L Chloride 86.0 L Glucose 101 Lactate 8.0 H* FiO2 21.0 Crit Value Called To Dr espinoza Crit Value Called By [facility] Crit Value Read Back Y Blood Gas Notified Time 1227 Potassium Carbon Dioxide Anion Gap BUN Creatinine Est GFR ( Amer) Est GFR (Non-Af Amer) POC Glucose (mg/dL) 104 Random Glucose Serum Osmolality Calcium Phosphorus Magnesium Iron TIBC % Saturation Ferritin Total Bilirubin AST ALT Alkaline Phosphatase Ammonia Total Creatine Kinase Troponin I NT-Pro-B Natriuret Pep Total Protein Albumin Globulin Albumin/Globulin Ratio Triglycerides Cholesterol LDL Cholesterol Direct HDL Cholesterol Vitamin B12 Folate Free T4 TSH 3rd Generation Prolactin Cortisol AM Sample Arterial Blood Potassium 2.5 L* Venous Blood Potassium Urine Color Yellow Urine Clarity Clear Urine pH 6.5 Ur Specific [place] 1.010 Urine Protein Trace Urine Glucose (UA) 100 Urine Ketones 15 Urine Blood Small Urine Nitrate Negative Urine Bilirubin Moderate Urine Urobilinogen 4.0 Ur Leukocyte Esterase Negative Urine WBC (Auto) 2 Urine RBC (Auto) 2 Ur Squamous Epith Cells 1 Urine Bacteria Occ H Urine Osmolality Ur Random Sodium Urine Opiates Screen Urine Methadone Screen Ur Barbiturates Screen Ur Phencyclidine Scrn Ur Amphetamines Screen U Benzodiazepines Scrn U Oth Cocaine Metabols U Cannabinoids Screen Alcohol, Quantitative Hepatitis A IgM Ab Hep Bs Antigen Hep B Core IgM Ab Hepatitis C Antibody Blood Type Blood Type Confirm Antibody Screen 02/27/18 02/27/18 02/27/18 12:51 12:55 12:58 WBC 8.0 RBC 2.92 L Hgb 9.6 L Hct 27.5 L MCV 94.2 H MCH 32.8 H MCHC 34.8 RDW 18.1 H Plt Count 87 L MPV 9.2 Neut % (Auto) 84.0 H Lymph % (Auto) 4.6 L [place] % (Auto) 8.8 Eos % (Auto) 2.1 Baso % (Auto) 0.5 Neut # (Auto) 6.7 Lymph # (Auto) 0.4 L [place] # (Auto) 0.7 Eos # (Auto) 0.2 Baso # (Auto) 0.0 Neutrophils % (Manual) 79 H Band Neutrophils % 10 H Lymphocytes % (Manual) 5 L Monocytes % (Manual) 6 Platelet Estimate Decreased L Hypochromasia (manual) Slight Poikilocytosis (manual Slight Anisocytosis (manual) Slight Target Cells Slight [place] Cells Slight PT INR APTT Puncture Site pCO2 pO2 26 L HCO3 ABG pH ABG Total CO2 ABG O2 Saturation ABG Base Excess Rei Test ABG Potassium VBG pH 7.34 VBG pCO2 41 VBG HCO3 20.7 VBG Total CO2 23.4 VBG O2 Sat (Calc) 40.6 VBG Base Excess -3.5 L VBG Potassium 2.7 L A-a O2 Difference Respiratory Index Sodium 124.0 L Chloride 87.0 L Glucose 98 Lactate 7.7 H* FiO2 21.0 Crit Value Called To Dr ray Crit Value Called By [facility] Crit Value Read Back Y Blood Gas Notified Time 1300 Potassium Carbon Dioxide Anion Gap BUN Creatinine Est GFR ( Amer) Est GFR (Non-Af Amer) POC Glucose (mg/dL) Random Glucose Serum Osmolality Calcium Phosphorus Magnesium Iron TIBC % Saturation Ferritin Total Bilirubin AST ALT Alkaline Phosphatase Ammonia Total Creatine Kinase Troponin I NT-Pro-B Natriuret Pep Total Protein Albumin Globulin Albumin/Globulin Ratio Triglycerides Cholesterol LDL Cholesterol Direct HDL Cholesterol Vitamin B12 Folate Free T4 TSH 3rd Generation Prolactin Cortisol AM Sample Arterial Blood Potassium Venous Blood Potassium 2.7 L Urine Color Urine Clarity Urine pH Ur Specific [place] Urine Protein Urine Glucose (UA) Urine Ketones Urine Blood Urine Nitrate Urine Bilirubin Urine Urobilinogen Ur Leukocyte Esterase Urine WBC (Auto) Urine RBC (Auto) Ur Squamous Epith Cells Urine Bacteria Urine Osmolality Ur Random Sodium Urine Opiates Screen Negative Urine Methadone Screen Negative Ur Barbiturates Screen Negative Ur Phencyclidine Scrn Negative Ur Amphetamines Screen Negative U Benzodiazepines Scrn Negative U Oth Cocaine Metabols Negative U Cannabinoids Screen Negative Alcohol, Quantitative Hepatitis A IgM Ab Hep Bs Antigen Hep B Core IgM Ab Hepatitis C Antibody Blood Type Blood Type Confirm Antibody Screen 02/27/18 02/27/18 02/27/18 12:58 12:58 18:44 WBC RBC Hgb Hct MCV MCH MCHC RDW Plt Count MPV Neut % (Auto) Lymph % (Auto) [place] % (Auto) Eos % (Auto) Baso % (Auto) Neut # (Auto) Lymph # (Auto) [place] # (Auto) Eos # (Auto) Baso # (Auto) Neutrophils % (Manual) Band Neutrophils % Lymphocytes % (Manual) Monocytes % (Manual) Platelet Estimate Hypochromasia (manual) Poikilocytosis (manual Anisocytosis (manual) Target Cells [place] Cells PT 27.0 H INR 2.5 APTT 40 H Puncture Site pCO2 pO2 HCO3 ABG pH ABG Total CO2 ABG O2 Saturation ABG Base Excess Rei Test ABG Potassium VBG pH VBG pCO2 VBG HCO3 VBG Total CO2 VBG O2 Sat (Calc) VBG Base Excess VBG Potassium A-a O2 Difference Respiratory Index Sodium 123 L Chloride 82 L Glucose Lactate FiO2 Crit Value Called To Crit Value Called By Crit Value Read Back Blood Gas Notified Time Potassium 3.0 L Carbon Dioxide 22 Anion Gap 21 H BUN 5 L Creatinine 0.5 L Est GFR ( Amer) > 60 Est GFR (Non-Af Amer) > 60 POC Glucose (mg/dL) Random Glucose 107 Serum Osmolality Calcium 7.4 L Phosphorus 1.3 L Magnesium 1.7 Iron TIBC % Saturation Ferritin Total Bilirubin 7.9 H AST 494 H ALT 77 H Alkaline Phosphatase 202 H Ammonia 9 Total Creatine Kinase 589 H Troponin I < 0.0120 NT-Pro-B Natriuret Pep 332 Total Protein 7.5 Albumin 3.0 L Globulin 4.5 H Albumin/Globulin Ratio 0.7 L Triglycerides Cholesterol LDL Cholesterol Direct HDL Cholesterol Vitamin B12 Folate Free T4 TSH 3rd Generation Prolactin Cortisol AM Sample Arterial Blood Potassium Venous Blood Potassium Urine Color Urine Clarity Urine pH Ur Specific [place] Urine Protein Urine Glucose (UA) Urine Ketones Urine Blood Urine Nitrate Urine Bilirubin Urine Urobilinogen Ur Leukocyte Esterase Urine WBC (Auto) Urine RBC (Auto) Ur Squamous Epith Cells Urine Bacteria Urine Osmolality Ur Random Sodium Urine Opiates Screen Urine Methadone Screen Ur Barbiturates Screen Ur Phencyclidine Scrn Ur Amphetamines Screen U Benzodiazepines Scrn U Oth Cocaine Metabols U Cannabinoids Screen Alcohol, Quantitative 287 H Hepatitis A IgM Ab Hep Bs Antigen Hep B Core IgM Ab Hepatitis C Antibody Blood Type Blood Type Confirm Antibody Screen 02/27/18 02/27/18 02/27/18 18:44 18:44 22:37 WBC RBC Hgb Hct MCV MCH MCHC RDW Plt Count MPV Neut % (Auto) Lymph % (Auto) [place] % (Auto) Eos % (Auto) Baso % (Auto) Neut # (Auto) Lymph # (Auto) [place] # (Auto) Eos # (Auto) Baso # (Auto) Neutrophils % (Manual) Band Neutrophils % Lymphocytes % (Manual) Monocytes % (Manual) Platelet Estimate Hypochromasia (manual) Poikilocytosis (manual Anisocytosis (manual) Target Cells Rhona Cells PT INR APTT Puncture Site pCO2 pO2 HCO3 ABG pH ABG Total CO2 ABG O2 Saturation ABG Base Excess Rei Test ABG Potassium VBG pH VBG pCO2 VBG HCO3 VBG Total CO2 VBG O2 Sat (Calc) VBG Base Excess VBG Potassium A-a O2 Difference Respiratory Index Sodium Chloride Glucose Lactate FiO2 Crit Value Called To Crit Value Called By Crit Value Read Back Blood Gas Notified Time Potassium Carbon Dioxide Anion Gap BUN Creatinine Est GFR ( Amer) Est GFR (Non-Af Amer) POC Glucose (mg/dL) Random Glucose Serum Osmolality 315 H Calcium Phosphorus Magnesium Iron TIBC % Saturation Ferritin Total Bilirubin AST ALT Alkaline Phosphatase Ammonia Total Creatine Kinase Troponin I NT-Pro-B Natriuret Pep Total Protein Albumin Globulin Albumin/Globulin Ratio Triglycerides Cholesterol LDL Cholesterol Direct HDL Cholesterol Vitamin B12 Folate Free T4 TSH 3rd Generation Prolactin Cortisol AM Sample Arterial Blood Potassium Venous Blood Potassium Urine Color Urine Clarity Urine pH Ur Specific [place] Urine Protein Urine Glucose (UA) Urine Ketones Urine Blood Urine Nitrate Urine Bilirubin Urine Urobilinogen Ur Leukocyte Esterase Urine WBC (Auto) Urine RBC (Auto) Ur Squamous Epith Cells Urine Bacteria Urine Osmolality Ur Random Sodium Urine Opiates Screen Urine Methadone Screen Ur Barbiturates Screen Ur Phencyclidine Scrn Ur Amphetamines Screen U Benzodiazepines Scrn U Oth Cocaine Metabols U Cannabinoids Screen Alcohol, Quantitative Hepatitis A IgM Ab Negative Hep Bs Antigen Negative Hep B Core IgM Ab Negative Hepatitis C Antibody Negative Blood Type B POSITIVE Blood Type Confirm B POSITIVE Antibody Screen Negative 02/27/18 02/28/18 02/28/18 23:16 06:34 06:34 WBC RBC Hgb Hct MCV MCH MCHC RDW Plt Count MPV Neut % (Auto) Lymph % (Auto) [place] % (Auto) Eos % (Auto) Baso % (Auto) Neut # (Auto) Lymph # (Auto) [place] # (Auto) Eos # (Auto) Baso # (Auto) Neutrophils % (Manual) Band Neutrophils % Lymphocytes % (Manual) Monocytes % (Manual) Platelet Estimate Hypochromasia (manual) Poikilocytosis (manual Anisocytosis (manual) Target Cells Rhona Cells PT INR APTT Puncture Site pCO2 pO2 HCO3 ABG pH ABG Total CO2 ABG O2 Saturation ABG Base Excess Rei Test ABG Potassium VBG pH VBG pCO2 VBG HCO3 VBG Total CO2 VBG O2 Sat (Calc) VBG Base Excess VBG Potassium A-a O2 Difference Respiratory Index Sodium Chloride Glucose Lactate FiO2 Crit Value Called To Crit Value Called By Crit Value Read Back Blood Gas Notified Time Potassium Carbon Dioxide Anion Gap BUN Creatinine Est GFR ( Amer) Est GFR (Non-Af Amer) POC Glucose (mg/dL) Random Glucose Serum Osmolality Calcium Phosphorus Magnesium Iron TIBC 210 L % Saturation 56 H Ferritin 689.0 Total Bilirubin AST ALT Alkaline Phosphatase Ammonia Total Creatine Kinase Troponin I NT-Pro-B Natriuret Pep Total Protein Albumin Globulin Albumin/Globulin Ratio Triglycerides Cholesterol LDL Cholesterol Direct HDL Cholesterol Vitamin B12 856 Folate 3.3 Free T4 TSH 3rd Generation Prolactin 21.3 H Cortisol AM Sample Arterial Blood Potassium Venous Blood Potassium Urine Color Urine Clarity Urine pH Ur Specific [place] Urine Protein Urine Glucose (UA) Urine Ketones Urine Blood Urine Nitrate Urine Bilirubin Urine Urobilinogen Ur Leukocyte Esterase Urine WBC (Auto) Urine RBC (Auto) Ur Squamous Epith Cells Urine Bacteria Urine Osmolality 455 Ur Random Sodium < 5 Urine Opiates Screen Negative Urine Methadone Screen Negative Ur Barbiturates Screen Negative Ur Phencyclidine Scrn Negative Ur Amphetamines Screen Negative U Benzodiazepines Scrn Negative U Oth Cocaine Metabols Negative U Cannabinoids Screen Negative Alcohol, Quantitative Hepatitis A IgM Ab Hep Bs Antigen Hep B Core IgM Ab Hepatitis C Antibody Blood Type Blood Type Confirm Antibody Screen 02/28/18 02/28/18 02/28/18 06:34 06:34 06:34 WBC RBC Hgb Hct MCV MCH MCHC RDW Plt Count MPV Neut % (Auto) Lymph % (Auto) [place] % (Auto) Eos % (Auto) Baso % (Auto) Neut # (Auto) Lymph # (Auto) [place] # (Auto) Eos # (Auto) Baso # (Auto) Neutrophils % (Manual) Band Neutrophils % Lymphocytes % (Manual) Monocytes % (Manual) Platelet Estimate Hypochromasia (manual) Poikilocytosis (manual Anisocytosis (manual) Target Cells [place] Cells PT INR APTT Puncture Site pCO2 pO2 HCO3 ABG pH ABG Total CO2 ABG O2 Saturation ABG Base Excess Rei Test ABG Potassium VBG pH VBG pCO2 VBG HCO3 VBG Total CO2 VBG O2 Sat (Calc) VBG Base Excess VBG Potassium A-a O2 Difference Respiratory Index Sodium Chloride Glucose Lactate FiO2 Crit Value Called To Crit Value Called By Crit Value Read Back Blood Gas Notified Time Potassium Carbon Dioxide Anion Gap BUN Creatinine Est GFR ( Amer) Est GFR (Non-Af Amer) POC Glucose (mg/dL) Random Glucose Serum Osmolality Calcium Phosphorus Magnesium Iron 117 TIBC 212 L % Saturation 55 Ferritin Total Bilirubin AST ALT Alkaline Phosphatase Ammonia Total Creatine Kinase Troponin I NT-Pro-B Natriuret Pep Total Protein Albumin Globulin Albumin/Globulin Ratio Triglycerides 192 H Cholesterol 94 LDL Cholesterol Direct 50 HDL Cholesterol 11 L Vitamin B12 Folate Free T4 TSH 3rd Generation 1.22 Prolactin Cortisol AM Sample 44.2 H Arterial Blood Potassium Venous Blood Potassium Urine Color Urine Clarity Urine pH Ur Specific [place] Urine Protein Urine Glucose (UA) Urine Ketones Urine Blood Urine Nitrate Urine Bilirubin Urine Urobilinogen Ur Leukocyte Esterase Urine WBC (Auto) Urine RBC (Auto) Ur Squamous Epith Cells Urine Bacteria Urine Osmolality Ur Random Sodium Urine Opiates Screen Urine Methadone Screen Ur Barbiturates Screen Ur Phencyclidine Scrn Ur Amphetamines Screen U Benzodiazepines Scrn U Oth Cocaine Metabols U Cannabinoids Screen Alcohol, Quantitative Hepatitis A IgM Ab Hep Bs Antigen Hep B Core IgM Ab Hepatitis C Antibody Blood Type Blood Type Confirm Antibody Screen 02/28/18 02/28/18 02/28/18 06:34 07:14 07:14 WBC 9.7 RBC 2.51 L Hgb 8.3 L Hct 23.9 L MCV 95.1 H MCH 33.0 H MCHC 34.7 RDW 17.9 H Plt Count 86 L MPV 9.1 Neut % (Auto) 84.9 H Lymph % (Auto) 3.1 L [place] % (Auto) 9.4 Eos % (Auto) 2.3 Baso % (Auto) 0.3 Neut # (Auto) 8.2 H Lymph # (Auto) 0.3 L [place] # (Auto) 0.9 H Eos # (Auto) 0.2 Baso # (Auto) 0.0 Neutrophils % (Manual) 79 H Band Neutrophils % 9 H Lymphocytes % (Manual) 2 L Monocytes % (Manual) 10 Platelet Estimate Decreased L Hypochromasia (manual) Poikilocytosis (manual Anisocytosis (manual) Slight Target Cells Moderate [place]ona Cells PT 19.9 H D INR 1.8 D APTT Puncture Site pCO2 pO2 HCO3 ABG pH ABG Total CO2 ABG O2 Saturation ABG Base Excess Rei Test ABG Potassium VBG pH VBG pCO2 VBG HCO3 VBG Total CO2 VBG O2 Sat (Calc) VBG Base Excess VBG Potassium A-a O2 Difference Respiratory Index Sodium Chloride Glucose Lactate FiO2 Crit Value Called To Crit Value Called By Crit Value Read Back Blood Gas Notified Time Potassium Carbon Dioxide Anion Gap BUN Creatinine Est GFR ( Amer) Est GFR (Non-Af Amer) POC Glucose (mg/dL) Random Glucose Serum Osmolality Calcium Phosphorus Magnesium Iron TIBC % Saturation Ferritin Total Bilirubin AST ALT Alkaline Phosphatase Ammonia Total Creatine Kinase Troponin I NT-Pro-B Natriuret Pep Total Protein Albumin Globulin Albumin/Globulin Ratio Triglycerides Cholesterol LDL Cholesterol Direct HDL Cholesterol Vitamin B12 Folate Free T4 1.05 TSH 3rd Generation Prolactin Cortisol AM Sample Arterial Blood Potassium Venous Blood Potassium Urine Color Urine Clarity Urine pH Ur Specific [place] Urine Protein Urine Glucose (UA) Urine Ketones Urine Blood Urine Nitrate Urine Bilirubin Urine Urobilinogen Ur Leukocyte Esterase Urine WBC (Auto) Urine RBC (Auto) Ur Squamous Epith Cells Urine Bacteria Urine Osmolality Ur Random Sodium Urine Opiates Screen Urine Methadone Screen Ur Barbiturates Screen Ur Phencyclidine Scrn Ur Amphetamines Screen U Benzodiazepines Scrn U Oth Cocaine Metabols U Cannabinoids Screen Alcohol, Quantitative Hepatitis A IgM Ab Hep Bs Antigen Hep B Core IgM Ab Hepatitis C Antibody Blood Type Blood Type Confirm Antibody Screen 02/28/18 02/28/18 02/28/18 07:14 07:46 07:48 WBC RBC Hgb Hct MCV MCH MCHC RDW Plt Count MPV Neut % (Auto) Lymph % (Auto) [place] % (Auto) Eos % (Auto) Baso % (Auto) Neut # (Auto) Lymph # (Auto) [place] # (Auto) Eos # (Auto) Baso # (Auto) Neutrophils % (Manual) Band Neutrophils % Lymphocytes % (Manual) Monocytes % (Manual) Platelet Estimate Hypochromasia (manual) Poikilocytosis (manual Anisocytosis (manual) Target Cells Rhona Cells PT INR APTT Puncture Site pCO2 pO2 HCO3 ABG pH ABG Total CO2 ABG O2 Saturation ABG Base Excess Rei Test ABG Potassium VBG pH VBG pCO2 VBG HCO3 VBG Total CO2 VBG O2 Sat (Calc) VBG Base Excess VBG Potassium A-a O2 Difference Respiratory Index Sodium 127 L Chloride 88 L Glucose Lactate FiO2 Crit Value Called To Crit Value Called By Crit Value Read Back Blood Gas Notified Time Potassium 2.9 L Carbon Dioxide 22 Anion Gap 20 BUN 6 L Creatinine 0.6 L Est GFR ( Amer) > 60 Est GFR (Non-Af Amer) > 60 POC Glucose (mg/dL) 39 L 242 H Random Glucose 47 L Serum Osmolality Calcium 7.0 L Phosphorus 1.5 L Magnesium 1.4 L Iron TIBC % Saturation Ferritin Total Bilirubin 7.7 H AST 543 H ALT 90 H Alkaline Phosphatase 188 H Ammonia Total Creatine Kinase Troponin I NT-Pro-B Natriuret Pep Total Protein 7.2 Albumin 2.9 L Globulin 4.3 H Albumin/Globulin Ratio 0.7 L Triglycerides Cholesterol LDL Cholesterol Direct HDL Cholesterol Vitamin B12 Folate Free T4 TSH 3rd Generation Prolactin Cortisol AM Sample Arterial Blood Potassium Venous Blood Potassium Urine Color Urine Clarity Urine pH Ur Specific [place] Urine Protein Urine Glucose (UA) Urine Ketones Urine Blood Urine Nitrate Urine Bilirubin Urine Urobilinogen Ur Leukocyte Esterase Urine WBC (Auto) Urine RBC (Auto) Ur Squamous Epith Cells Urine Bacteria Urine Osmolality Ur Random Sodium Urine Opiates Screen Urine Methadone Screen Ur Barbiturates Screen Ur Phencyclidine Scrn Ur Amphetamines Screen U Benzodiazepines Scrn U Oth Cocaine Metabols U Cannabinoids Screen Alcohol, Quantitative Hepatitis A IgM Ab Hep Bs Antigen Hep B Core IgM Ab Hepatitis C Antibody Blood Type Blood Type Confirm Antibody Screen Assessment & Plan - Assessment and Plan (Free Text) Plan: Left Subdural Hematoma Imaging: - Head CT without contrast: There is a thin left-sided acute subdural hematoma with larger right-sided subdural hygroma on the lateral which exerts mild mass effect compression of the right cerebral hemisphere and right lateral ventricle. No significant midline shift. - Repeat Head CT: Re demonstrated is a small left-sided subdural hematoma which has undergone evolution and appears less dense. Small but slightly larger right- sided subdural hygroma again noted which may have increased in size very slightly.. The collections exert mild bilateral mass-effect right slightly larger than left with compressive effects on the cerebral gyri and sulci as well as lateral ventricles right slightly more so than left. No significant midline shift. The collections exert persistent mild mass effect with compression of c erebral sulci and of bilateral ventricles right slightly greater than left. No significant midline shift. No new hemorrhages or hydrocephalus. Management: - Refrain from any anticoagulation - Head CT within 24 hours or sooner if any acute changes - Maintain head of bed elevated at 30-45 degrees - Aspiration, CIWA Protocol, Seizure Precautions - PT/ OT Case discussed with Clara Abbasi DO, PGY2 <Danilo Loving - Last Filed: 03/01/18 11:33> Meds - Medications Medications: Current Medications Dextrose (Glutose 15) 0 gm PO ONCE PRN; Protocol PRN Reason: Hypoglycemia Protocol Glucagon (Glucagen Diagnostic Kit) 1 mg IM STAT PRN; Protocol PRN Reason: Hypoglycemia Protocol Piperacillin Sod/Tazobactam Sod (Zosyn 3.375 Gm Iv Premix) 3.375 gm in 50 mls @ 100 mls/hr IVPB Q6H [facility]; Protocol Last Admin: 03/01/18 10:07 Dose: 100 mls/hr Vancomycin/Sodium Chloride (Vancomycin 1 Gm/Ns 200 Ml) 1 gm in 200 mls @ 133.333 mls/hr IVPB Q12H [facility]; Protocol Stop: 03/04/18 16:01 Last Admin: 03/01/18 04:56 Dose: 133.333 mls/hr Dextrose (Dextrose 5% In Water 1000 Ml) 1,000 mls @ 0 mls/hr IV .Q0M PRN; Protocol PRN Reason: Hypoglycemia Protocol Potassium Chloride (Potassium Chloride 20 Meq/100 Ml) 20 meq in 100 mls @ 50 mls/hr IVPB ONCE ONE Stop: 03/01/18 12:18 Influenza Virus Vaccine (Fluzone Quad [id number]) 60 mcg IM .ONCE ONE Stop: 03/02/18 10:01 Lactobacillus Acidophilus (Bacid Acidophilus) 1 cap PO BID [facility]IGH Last Admin: 03/01/18 10:07 Dose: Not Given Lorazepam (Ativan) 2 mg PO Q8H [facility]; Taper Stop: 03/05/18 13:09 Last Admin: 03/01/18 06:13 Dose: 2 mg Lorazepam (Ativan) 1 mg IVP Q6H PRN PRN Reason: Agitation Last Admin: 02/28/18 22:09 Dose: 1 mg Pantoprazole Sodium (Protonix Inj) 40 mg IVP DAILY [facility] Last Admin: 03/01/18 10:07 Dose: 40 mg Pneumococcal Polyvalent Vaccine (Pneumovax 23 Vaccine) 0.5 ml IM .ONCE ONE Stop: 03/02/18 10:01 Results - Vital Signs Recent Vital Signs: Last Vital Signs Temp 97.7 F 02/28/18 20:00 Pulse 115 H 03/01/18 06:02 Resp 17 03/01/18 06:02 BP 144/75 03/01/18 06:02 Pulse Ox 94 L 03/01/18 06:02 - Labs Result Diagrams: 03/01/18 05:06 03/01/18 05:45 Labs: Laboratory Results - last 24 hr 02/28/18 02/28/18 02/28/18 06:59 11:26 18:27 WBC RBC Hgb Hct MCV MCH MCHC RDW Plt Count MPV Neut % (Auto) Lymph % (Auto) [place] % (Auto) Eos % (Auto) Baso % (Auto) Neut # (Auto) Lymph # (Auto) [place] # (Auto) Eos # (Auto) Baso # (Auto) Neutrophils % (Manual) Band Neutrophils % Lymphocytes % (Manual) Monocytes % (Manual) Eosinophils % (Manual) Platelet Estimate Hypochromasia (manual) Poikilocytosis (manual Basophilic Stippling Anisocytosis (manual) Ovalocytes Sodium Potassium Chloride Carbon Dioxide Anion Gap BUN Creatinine Est GFR ( Amer) Est GFR (Non-Af Amer) POC Glucose (mg/dL) 73 Random Glucose Calcium Phosphorus Magnesium Total Bilirubin AST ALT Alkaline Phosphatase Total Creatine Kinase Total Protein Albumin Globulin Albumin/Globulin Ratio Vancomycin Trough HIV 1&2 Ag/Ab, 4th Gen Nonreactive Ur L.pneumophila Ag Negative 03/01/18 03/01/18 03/01/18 05:06 05:43 05:45 WBC 9.5 RBC 2.42 L Hgb 8.0 L Hct 22.9 L MCV 94.7 H MCH 33.1 H MCHC 35.0 RDW 18.2 H Plt Count 72 L MPV 9.1 Neut % (Auto) 78.2 H Lymph % (Auto) 9.1 L [place] % (Auto) 11.4 H Eos % (Auto) 0.5 Baso % (Auto) 0.8 Neut # (Auto) 7.4 H Lymph # (Auto) 0.9 L [place] # (Auto) 1.1 H Eos # (Auto) 0.0 Baso # (Auto) 0.1 Neutrophils % (Manual) 77 H Band Neutrophils % 6 H Lymphocytes % (Manual) 8 L Monocytes % (Manual) 8 Eosinophils % (Manual) 1 Platelet Estimate Decreased L Hypochromasia (manual) Slight Poikilocytosis (manual Slight Basophilic Stippling Slight Anisocytosis (manual) Slight Ovalocytes Moderate Sodium 128 L Potassium 2.9 L Chloride 90 L Carbon Dioxide 28 Anion Gap 12 BUN 8 L Creatinine 0.5 L Est GFR ( Amer) > 60 Est GFR (Non-Af Amer) > 60 POC Glucose (mg/dL) Random Glucose 86 Calcium 6.7 L Phosphorus 0.6 L* Magnesium 1.8 Total Bilirubin 8.4 H AST 425 H D ALT 78 H Alkaline Phosphatase 132 H D Total Creatine Kinase 133 Total Protein 6.5 Albumin 2.4 L Globulin 4.1 H Albumin/Globulin Ratio 0.6 L Vancomycin Trough 7.0 HIV 1&2 Ag/Ab, 4th Gen Ur L.pneumophila Ag Attending/Attestation - Attestation I have personally seen and examined this patient.: Yes I have fully participated in the care of the patient.: Yes I have reviewed all pertinent clinical information: Yes Notes (Text): 03/01/18 11:33 I agree with the assessment and plan: - Refrain from any anticoagulation - Head CT within 24 hours or sooner if any acute changes - Maintain head of bed elevated at 30-45 degrees - Aspiration, CIWA Protocol, Seizure Precautions - PT/ OT
[2018-02-28] MEDS: Lactobacillus Acidophilus 500 MU Cap PO SCH ×2 (09:17→19:11)
--- NOTE | 2018-02-28 09:56 | CT ---
Date of service: 02/27/2018 PROCEDURE: CT HEAD WITHOUT CONTRAST. HISTORY: AMS COMPARISON: None available. TECHNIQUE: Axial computed tomography images were obtained through the head/brain without intravenous contrast. Radiation dose: Total exam DLP = 1131.34 mGy-cm. This CT exam was performed using one or more of the following dose reduction techniques: Automated exposure control, adjustment of the mA and/or kV according to patient size, and/or use of iterative reconstruction technique. FINDINGS: HEMORRHAGE: N there is a thin acute left-sided subdural hematoma that extends from near the base of the skull left middle cranial fossa superiorly to near the vertex of. Minimal thinning mass-effect. There is a larger hypodense right-sided extra-axial collection that probably represents a subdural hygroma of which also exerts mild mass effect on the superior aspect of the right frontal lobe more so at and above the level of the lateral ventricles with compression of the right lateral ventricle. No significant farud-va-awcl midline shift. There is mild compressive effects on the right lateral ventricle more so than left. BRAIN: Mild chronic periventricular white matter ischemic changes seen extending peripherally into the deep white matter both cerebral hemispheres. VENTRICLES: Unremarkable. No hydrocephalus. CALVARIUM: No definitive acute calvarial fractures. Suspect mild left periorbital/supraorbital soft tissue swelling. PARANASAL SINUSES: Minor mucosal thickening left maxillary antrum with minimal mucosal thickening inferior aspect right maxillary antrum. Minimal mucosal thickening noted within a few ethmoid air cells extending superiorly the. There may also be some minimal into the frontal sinus. MASTOID AIR CELLS: Unremarkable as visualized. No inflammatory changes. OTHER FINDINGS: None. IMPRESSION: There is a thin left-sided acute subdural hematoma with larger right-sided subdural hygroma on the lateral which exerts mild mass effect compression of the right cerebral hemisphere and right lateral ventricle. No significant midline shift. Mild chronic white matter ischemic changes.
--- NOTE | 2018-02-28 10:10 | CT ---
Date of service: 02/28/2018 PROCEDURE: CT HEAD WITHOUT CONTRAST. HISTORY: Follow-up of subdura the l hematoma COMPARISON: Comparison made with prior CT scan 02/27/2018 TECHNIQUE: Axial computed tomography images were obtained through the head/brain without intravenous contrast. Radiation dose: Total exam DLP = 964.68 mGy-cm. This CT exam was performed using one or more of the following dose reduction techniques: Automated exposure control, adjustment of the mA and/or kV according to patient size, and/or use of iterative reconstruction technique. FINDINGS: Note the examination is slightly limited by motion artifact. HEMORRHAGE: There is a small acute left-sided subdural hematoma which has increased in size slightly.. Small right-sided subdural hygroma is also again seen. These changes result in mild near symmetric mass-effect with compression of both cerebral hemispheres including the lateral ventricles however no significant midline shift. BRAIN: Mild chronic periventricular white matter ischemic changes extend slightly into the deep and subcortical white matter both cerebral hemispheres Mild generalized volume loss. VENTRICLES: No obstructive hydrocephalus. CALVARIUM: There are no acute calvarial fractures. PARANASAL SINUSES: Unremarkable as visualized. No significant inflammatory changes. MASTOID AIR CELLS: Unremarkable as visualized. No inflammatory changes. OTHER FINDINGS: None. IMPRESSION: There is a small left-sided subdural hematoma which has increased in size slightly. Also again noted is a small right-sided subdural hygroma. Changes result in near symmetric mild mass effect with compression of both cerebral hemispheres. Mild chronic periventricular white matter ischemic changes. Mild generalized volume loss
--- NOTE | 2018-02-28 12:40 | US ---
HISTORY: transaminitis alcohol abuse / portal vein thrombus COMPARISON: None available. TECHNIQUE: Sonographic evaluation of the abdomen. FINDINGS: Markedly limited portable ICU sonogram due to patient condition and difficulty with breath hold. LIVER: Measures 18.3 cm in sagittal dimension. Echogenic liver may be seen in setting of hepatic parenchymal disease or fatty infiltration. Nodular hepatic contour. No focal hepatic mass identified. The main portal vein appears patent with normal directional flow. No intrahepatic bile duct dilatation. Small ascites. GALLBLADDER: Gallstones. No gallbladder wall thickening. Negative sonographic Mathew's sign as assessed by the community coordinator for high school. COMMON BILE DUCT: Measures 6 mm. PANCREAS: Not well visualized. RIGHT KIDNEY: Measures 11.8 x 6.0 x 6.1 cm. No obstructing calculus or hydronephrosis identified. LEFT KIDNEY: Measures 12.9 x 5.4 x 4.9 cm. No obstructing calculus or hydronephrosis identified. SPLEEN: Measures approximately 9.7 cm. AORTA: Limited views appear unremarkable. IVC: Not well-visualized. OTHER FINDINGS: None. IMPRESSION: Limited study as above. Nodular hepatic contour consistent with cirrhosis. Echogenic liver may be seen in setting of hepatic parenchymal disease or fatty infiltration. Small ascites. Gallstones.
--- NOTE | 2018-02-28 12:54 | CP.PCM.CON ---
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 suggest f/u CT i week Past Patient History - Infectious Disease Hx of Infectious Diseases: None - Past Medical History & Family History Past Medical History?: No - Past Social History Smoking Status: Unknown If Ever Smoked - MUSCULOSKELETAL/RHEUMATOLOGICAL Hx Falls: Yes - PSYCHIATRIC Hx Substance Use: No - SURGICAL HISTORY Hx Surgeries: No - ANESTHESIA Hx Anesthesia: No Meds Allergies/Adverse Reactions: Allergies Allergy/AdvReac Type Severity Reaction Status Date / Time No Known Allergies Allergy Verified 02/27/18 12:04 - Medications Medications: Current Medications Dextrose (Glutose 15) 0 gm PO ONCE PRN; Protocol PRN Reason: Hypoglycemia Protocol Glucagon (Glucagen Diagnostic Kit) 1 mg IM STAT PRN; Protocol PRN Reason: Hypoglycemia Protocol Piperacillin Sod/Tazobactam Sod (Zosyn 3.375 Gm Iv Premix) 3.375 gm in 50 mls @ 100 mls/hr IVPB Q6H [facility]; Protocol Last Admin: 02/28/18 09:17 Dose: 100 mls/hr Vancomycin/Sodium Chloride (Vancomycin 1 Gm/Ns 200 Ml) 1 gm in 200 mls @ 133.333 mls/hr IVPB Q12H [facility]; Protocol Stop: 03/04/18 16:01 Last Admin: 02/28/18 04:15 Dose: 133.333 mls/hr Dextrose (Dextrose 5% In Water 1000 Ml) 1,000 mls @ 0 mls/hr IV .Q0M PRN; Protocol PRN Reason: Hypoglycemia Protocol Multivitamins/Vitamin C 10 ml/Thiamine HCl 100 mg/ Folic Acid 1 mg/ Sodium Chloride 1,011.2 mls @ 100 mls/hr IV .Q10H7M ONE Stop: 02/28/18 18:36 Last Admin: 02/28/18 09:17 Dose: 100 mls/hr Lactobacillus Acidophilus (Bacid Acidophilus) 1 cap PO BID [facility] Last Admin: 02/28/18 09:17 Dose: Not Given Lorazepam (Ativan) 1 mg IVP Q6H PRN PRN Reason: Agitation Pantoprazole Sodium (Protonix Inj) 40 mg IVP DAILY [facility] Last Admin: 02/28/18 09:17 Dose: 40 mg Results - Vital Signs Recent Vital Signs: Last Vital Signs Temp 90.4 F L 02/27/18 18:00 Pulse 126 H 02/28/18 07:02 Resp 42 H 02/28/18 07:02 BP 145/73 02/28/18 07:02 Pulse Ox 93 L 02/28/18 07:02 - Labs Result Diagrams: 02/28/18 07:14 02/28/18 07:14 Labs: Laboratory Results - last 24 hr 02/27/18 02/27/18 02/27/18 11:54 12:51 12:51 WBC RBC Hgb Hct MCV MCH MCHC RDW Plt Count MPV Neut % (Auto) Lymph % (Auto) [place] % (Auto) Eos % (Auto) Baso % (Auto) Neut # (Auto) Lymph # (Auto) [place] # (Auto) Eos # (Auto) Baso # (Auto) Neutrophils % (Manual) Band Neutrophils % Lymphocytes % (Manual) Monocytes % (Manual) Platelet Estimate Hypochromasia (manual) Poikilocytosis (manual Anisocytosis (manual) Target Cells Morton Cells PT INR APTT pO2 VBG pH VBG pCO2 VBG HCO3 VBG Total CO2 VBG O2 Sat (Calc) VBG Base Excess VBG Potassium Sodium Chloride Glucose Lactate FiO2 Crit Value Called To Crit Value Called By Crit Value Read Back Blood Gas Notified Time Potassium Carbon Dioxide Anion Gap BUN Creatinine Est GFR ( Amer) Est GFR (Non-Af Amer) POC Glucose (mg/dL) 104 Random Glucose Serum Osmolality Calcium Phosphorus Magnesium Iron TIBC % Saturation Ferritin Total Bilirubin AST ALT Alkaline Phosphatase Ammonia Total Creatine Kinase Troponin I NT-Pro-B Natriuret Pep Total Protein Albumin Globulin Albumin/Globulin Ratio Triglycerides Cholesterol LDL Cholesterol Direct HDL Cholesterol Vitamin B12 Folate Free T4 TSH 3rd Generation Prolactin Cortisol AM Sample Venous Blood Potassium Urine Color Yellow Urine Clarity Clear Urine pH 6.5 Ur Specific [place] 1.010 Urine Protein Trace Urine Glucose (UA) 100 Urine Ketones 15 Urine Blood Small Urine Nitrate Negative Urine Bilirubin Moderate Urine Urobilinogen 4.0 Ur Leukocyte Esterase Negative Urine WBC (Auto) 2 Urine RBC (Auto) 2 Ur Squamous Epith Cells 1 Urine Bacteria Occ H Urine Osmolality Ur Random Sodium Urine Opiates Screen Negative Urine Methadone Screen Negative Ur Barbiturates Screen Negative Ur Phencyclidine Scrn Negative Ur Amphetamines Screen Negative U Benzodiazepines Scrn Negative U Oth Cocaine Metabols Negative U Cannabinoids Screen Negative Alcohol, Quantitative Hepatitis A IgM Ab Hep Bs Antigen Hep B Core IgM Ab Hepatitis C Antibody Blood Type Blood Type Confirm Antibody Screen 02/27/18 02/27/18 02/27/18 12:55 12:58 12:58 WBC 8.0 RBC 2.92 L Hgb 9.6 L Hct 27.5 L MCV 94.2 H MCH 32.8 H MCHC 34.8 RDW 18.1 H Plt Count 87 L MPV 9.2 Neut % (Auto) 84.0 H Lymph % (Auto) 4.6 L [place] % (Auto) 8.8 Eos % (Auto) 2.1 Baso % (Auto) 0.5 Neut # (Auto) 6.7 Lymph # (Auto) 0.4 L [place] # (Auto) 0.7 Eos # (Auto) 0.2 Baso # (Auto) 0.0 Neutrophils % (Manual) 79 H Band Neutrophils % 10 H Lymphocytes % (Manual) 5 L Monocytes % (Manual) 6 Platelet Estimate Decreased L Hypochromasia (manual) Slight Poikilocytosis (manual Slight Anisocytosis (manual) Slight Target Cells Slight Morton Cells Slight PT INR APTT pO2 26 L VBG pH 7.34 VBG pCO2 41 VBG HCO3 20.7 VBG Total CO2 23.4 VBG O2 Sat (Calc) 40.6 VBG Base Excess -3.5 L VBG Potassium 2.7 L Sodium 124.0 L 123 L Chloride 87.0 L 82 L Glucose 98 Lactate 7.7 H* FiO2 21.0 Crit Value Called To Dr ray Crit Value Called By [facility] Crit Value Read Back Y Blood Gas Notified Time 1300 Potassium 3.0 L Carbon Dioxide 22 Anion Gap 21 H BUN 5 L Creatinine 0.5 L Est GFR ( Amer) > 60 Est GFR (Non-Af Amer) > 60 POC Glucose (mg/dL) Random Glucose 107 Serum Osmolality Calcium 7.4 L Phosphorus 1.3 L Magnesium 1.7 Iron TIBC % Saturation Ferritin Total Bilirubin 7.9 H AST 494 H ALT 77 H Alkaline Phosphatase 202 H Ammonia Total Creatine Kinase 589 H Troponin I < 0.0120 NT-Pro-B Natriuret Pep 332 Total Protein 7.5 Albumin 3.0 L Globulin 4.5 H Albumin/Globulin Ratio 0.7 L Triglycerides Cholesterol LDL Cholesterol Direct HDL Cholesterol Vitamin B12 Folate Free T4 TSH 3rd Generation Prolactin Cortisol AM Sample Venous Blood Potassium 2.7 L Urine Color Urine Clarity Urine pH Ur Specific [place] Urine Protein Urine Glucose (UA) Urine Ketones Urine Blood Urine Nitrate Urine Bilirubin Urine Urobilinogen Ur Leukocyte Esterase Urine WBC (Auto) Urine RBC (Auto) Ur Squamous Epith Cells Urine Bacteria Urine Osmolality Ur Random Sodium Urine Opiates Screen Urine Methadone Screen Ur Barbiturates Screen Ur Phencyclidine Scrn Ur Amphetamines Screen U Benzodiazepines Scrn U Oth Cocaine Metabols U Cannabinoids Screen Alcohol, Quantitative 287 H Hepatitis A IgM Ab Hep Bs Antigen Hep B Core IgM Ab Hepatitis C Antibody Blood Type Blood Type Confirm Antibody Screen 02/27/18 02/27/18 02/27/18 12:58 18:44 18:44 WBC RBC Hgb Hct MCV MCH MCHC RDW Plt Count MPV Neut % (Auto) Lymph % (Auto) [place] % (Auto) Eos % (Auto) Baso % (Auto) Neut # (Auto) Lymph # (Auto) [place] # (Auto) Eos # (Auto) Baso # (Auto) Neutrophils % (Manual) Band Neutrophils % Lymphocytes % (Manual) Monocytes % (Manual) Platelet Estimate Hypochromasia (manual) Poikilocytosis (manual Anisocytosis (manual) Target Cells Morton Cells PT 27.0 H INR 2.5 APTT 40 H pO2 VBG pH VBG pCO2 VBG HCO3 VBG Total CO2 VBG O2 Sat (Calc) VBG Base Excess VBG Potassium Sodium Chloride Glucose Lactate FiO2 Crit Value Called To Crit Value Called By Crit Value Read Back Blood Gas Notified Time Potassium Carbon Dioxide Anion Gap BUN Creatinine Est GFR ( Amer) Est GFR (Non-Af Amer) POC Glucose (mg/dL) Random Glucose Serum Osmolality 315 H Calcium Phosphorus Magnesium Iron TIBC % Saturation Ferritin Total Bilirubin AST ALT Alkaline Phosphatase Ammonia 9 Total Creatine Kinase Troponin I NT-Pro-B Natriuret Pep Total Protein Albumin Globulin Albumin/Globulin Ratio Triglycerides Cholesterol LDL Cholesterol Direct HDL Cholesterol Vitamin B12 Folate Free T4 TSH 3rd Generation Prolactin Cortisol AM Sample Venous Blood Potassium Urine Color Urine Clarity Urine pH Ur Specific [place] Urine Protein Urine Glucose (UA) Urine Ketones Urine Blood Urine Nitrate Urine Bilirubin Urine Urobilinogen Ur Leukocyte Esterase Urine WBC (Auto) Urine RBC (Auto) Ur Squamous Epith Cells Urine Bacteria Urine Osmolality Ur Random Sodium Urine Opiates Screen Urine Methadone Screen Ur Barbiturates Screen Ur Phencyclidine Scrn Ur Amphetamines Screen U Benzodiazepines Scrn U Oth Cocaine Metabols U Cannabinoids Screen Alcohol, Quantitative Hepatitis A IgM Ab Hep Bs Antigen Hep B Core IgM Ab Hepatitis C Antibody Blood Type Blood Type Confirm Antibody Screen 02/27/18 02/27/18 02/27/18 18:44 22:37 23:16 WBC RBC Hgb Hct MCV MCH MCHC RDW Plt Count MPV Neut % (Auto) Lymph % (Auto) [place] % (Auto) Eos % (Auto) Baso % (Auto) Neut # (Auto) Lymph # (Auto) [place] # (Auto) Eos # (Auto) Baso # (Auto) Neutrophils % (Manual) Band Neutrophils % Lymphocytes % (Manual) Monocytes % (Manual) Platelet Estimate Hypochromasia (manual) Poikilocytosis (manual Anisocytosis (manual) Target Cells Rhona Cells PT INR APTT pO2 VBG pH VBG pCO2 VBG HCO3 VBG Total CO2 VBG O2 Sat (Calc) VBG Base Excess VBG Potassium Sodium Chloride Glucose Lactate FiO2 Crit Value Called To Crit Value Called By Crit Value Read Back Blood Gas Notified Time Potassium Carbon Dioxide Anion Gap BUN Creatinine Est GFR ( Amer) Est GFR (Non-Af Amer) POC Glucose (mg/dL) Random Glucose Serum Osmolality Calcium Phosphorus Magnesium Iron TIBC % Saturation Ferritin Total Bilirubin AST ALT Alkaline Phosphatase Ammonia Total Creatine Kinase Troponin I NT-Pro-B Natriuret Pep Total Protein Albumin Globulin Albumin/Globulin Ratio Triglycerides Cholesterol LDL Cholesterol Direct HDL Cholesterol Vitamin B12 Folate Free T4 TSH 3rd Generation Prolactin Cortisol AM Sample Venous Blood Potassium Urine Color Urine Clarity Urine pH Ur Specific [place] Urine Protein Urine Glucose (UA) Urine Ketones Urine Blood Urine Nitrate Urine Bilirubin Urine Urobilinogen Ur Leukocyte Esterase Urine WBC (Auto) Urine RBC (Auto) Ur Squamous Epith Cells Urine Bacteria Urine Osmolality 455 Ur Random Sodium < 5 Urine Opiates Screen Negative Urine Methadone Screen Negative Ur Barbiturates Screen Negative Ur Phencyclidine Scrn Negative Ur Amphetamines Screen Negative U Benzodiazepines Scrn Negative U Oth Cocaine Metabols Negative U Cannabinoids Screen Negative Alcohol, Quantitative Hepatitis A IgM Ab Negative Hep Bs Antigen Negative Hep B Core IgM Ab Negative Hepatitis C Antibody Negative Blood Type B POSITIVE Blood Type Confirm B POSITIVE Antibody Screen Negative 02/28/18 02/28/18 02/28/18 06:34 06:34 06:34 WBC RBC Hgb Hct MCV MCH MCHC RDW Plt Count MPV Neut % (Auto) Lymph % (Auto) [place] % (Auto) Eos % (Auto) Baso % (Auto) Neut # (Auto) Lymph # (Auto) [place] # (Auto) Eos # (Auto) Baso # (Auto) Neutrophils % (Manual) Band Neutrophils % Lymphocytes % (Manual) Monocytes % (Manual) Platelet Estimate Hypochromasia (manual) Poikilocytosis (manual Anisocytosis (manual) Target Cells [place] Cells PT INR APTT pO2 VBG pH VBG pCO2 VBG HCO3 VBG Total CO2 VBG O2 Sat (Calc) VBG Base Excess VBG Potassium Sodium Chloride Glucose Lactate FiO2 Crit Value Called To Crit Value Called By Crit Value Read Back Blood Gas Notified Time Potassium Carbon Dioxide Anion Gap BUN Creatinine Est GFR ( Amer) Est GFR (Non-Af Amer) POC Glucose (mg/dL) Random Glucose Serum Osmolality Calcium Phosphorus Magnesium Iron 117 TIBC 210 L 212 L % Saturation 56 H 55 Ferritin 689.0 Total Bilirubin AST ALT Alkaline Phosphatase Ammonia Total Creatine Kinase Troponin I NT-Pro-B Natriuret Pep Total Protein Albumin Globulin Albumin/Globulin Ratio Triglycerides Cholesterol LDL Cholesterol Direct HDL Cholesterol Vitamin B12 856 Folate 3.3 Free T4 TSH 3rd Generation Prolactin 21.3 H Cortisol AM Sample Venous Blood Potassium Urine Color Urine Clarity Urine pH Ur Specific [place] Urine Protein Urine Glucose (UA) Urine Ketones Urine Blood Urine Nitrate Urine Bilirubin Urine Urobilinogen Ur Leukocyte Esterase Urine WBC (Auto) Urine RBC (Auto) Ur Squamous Epith Cells Urine Bacteria Urine Osmolality Ur Random Sodium Urine Opiates Screen Urine Methadone Screen Ur Barbiturates Screen Ur Phencyclidine Scrn Ur Amphetamines Screen U Benzodiazepines Scrn U Oth Cocaine Metabols U Cannabinoids Screen Alcohol, Quantitative Hepatitis A IgM Ab Hep Bs Antigen Hep B Core IgM Ab Hepatitis C Antibody Blood Type Blood Type Confirm Antibody Screen 02/28/18 02/28/18 02/28/18 06:34 06:34 06:34 WBC RBC Hgb Hct MCV MCH MCHC RDW Plt Count MPV Neut % (Auto) Lymph % (Auto) [place] % (Auto) Eos % (Auto) Baso % (Auto) Neut # (Auto) Lymph # (Auto) [place] # (Auto) Eos # (Auto) Baso # (Auto) Neutrophils % (Manual) Band Neutrophils % Lymphocytes % (Manual) Monocytes % (Manual) Platelet Estimate Hypochromasia (manual) Poikilocytosis (manual Anisocytosis (manual) Target Cells Morton Cells PT INR APTT pO2 VBG pH VBG pCO2 VBG HCO3 VBG Total CO2 VBG O2 Sat (Calc) VBG Base Excess VBG Potassium Sodium Chloride Glucose Lactate FiO2 Crit Value Called To Crit Value Called By Crit Value Read Back Blood Gas Notified Time Potassium Carbon Dioxide Anion Gap BUN Creatinine Est GFR ( Amer) Est GFR (Non-Af Amer) POC Glucose (mg/dL) Random Glucose Serum Osmolality Calcium Phosphorus Magnesium Iron TIBC % Saturation Ferritin Total Bilirubin AST ALT Alkaline Phosphatase Ammonia Total Creatine Kinase Troponin I NT-Pro-B Natriuret Pep Total Protein Albumin Globulin Albumin/Globulin Ratio Triglycerides 192 H Cholesterol 94 LDL Cholesterol Direct 50 HDL Cholesterol 11 L Vitamin B12 Folate Free T4 1.05 TSH 3rd Generation 1.22 Prolactin Cortisol AM Sample 44.2 H Venous Blood Potassium Urine Color Urine Clarity Urine pH Ur Specific [place] Urine Protein Urine Glucose (UA) Urine Ketones Urine Blood Urine Nitrate Urine Bilirubin Urine Urobilinogen Ur Leukocyte Esterase Urine WBC (Auto) Urine RBC (Auto) Ur Squamous Epith Cells Urine Bacteria Urine Osmolality Ur Random Sodium Urine Opiates Screen Urine Methadone Screen Ur Barbiturates Screen Ur Phencyclidine Scrn Ur Amphetamines Screen U Benzodiazepines Scrn U Oth Cocaine Metabols U Cannabinoids Screen Alcohol, Quantitative Hepatitis A IgM Ab Hep Bs Antigen Hep B Core IgM Ab Hepatitis C Antibody Blood Type Blood Type Confirm Antibody Screen 02/28/18 02/28/18 02/28/18 07:14 07:14 07:14 WBC 9.7 RBC 2.51 L Hgb 8.3 L Hct 23.9 L MCV 95.1 H MCH 33.0 H MCHC 34.7 RDW 17.9 H Plt Count 86 L MPV 9.1 Neut % (Auto) 84.9 H Lymph % (Auto) 3.1 L [place] % (Auto) 9.4 Eos % (Auto) 2.3 Baso % (Auto) 0.3 Neut # (Auto) 8.2 H Lymph # (Auto) 0.3 L [place] # (Auto) 0.9 H Eos # (Auto) 0.2 Baso # (Auto) 0.0 Neutrophils % (Manual) 79 H Band Neutrophils % 9 H Lymphocytes % (Manual) 2 L Monocytes % (Manual) 10 Platelet Estimate Decreased L Hypochromasia (manual) Poikilocytosis (manual Anisocytosis (manual) Slight Target Cells Moderate Rhona Cells PT 19.9 H D INR 1.8 D APTT pO2 VBG pH VBG pCO2 VBG HCO3 VBG Total CO2 VBG O2 Sat (Calc) VBG Base Excess VBG Potassium Sodium 127 L Chloride 88 L Glucose Lactate FiO2 Crit Value Called To Crit Value Called By Crit Value Read Back Blood Gas Notified Time Potassium 2.9 L Carbon Dioxide 22 Anion Gap 20 BUN 6 L Creatinine 0.6 L Est GFR ( Amer) > 60 Est GFR (Non-Af Amer) > 60 POC Glucose (mg/dL) Random Glucose 47 L Serum Osmolality Calcium 7.0 L Phosphorus 1.5 L Magnesium 1.4 L Iron TIBC % Saturation Ferritin Total Bilirubin 7.7 H AST 543 H ALT 90 H Alkaline Phosphatase 188 H Ammonia Total Creatine Kinase Troponin I NT-Pro-B Natriuret Pep Total Protein 7.2 Albumin 2.9 L Globulin 4.3 H Albumin/Globulin Ratio 0.7 L Triglycerides Cholesterol LDL Cholesterol Direct HDL Cholesterol Vitamin B12 Folate Free T4 TSH 3rd Generation Prolactin Cortisol AM Sample Venous Blood Potassium Urine Color Urine Clarity Urine pH Ur Specific [place] Urine Protein Urine Glucose (UA) Urine Ketones Urine Blood Urine Nitrate Urine Bilirubin Urine Urobilinogen Ur Leukocyte Esterase Urine WBC (Auto) Urine RBC (Auto) Ur Squamous Epith Cells Urine Bacteria Urine Osmolality Ur Random Sodium Urine Opiates Screen Urine Methadone Screen Ur Barbiturates Screen Ur Phencyclidine Scrn Ur Amphetamines Screen U Benzodiazepines Scrn U Oth Cocaine Metabols U Cannabinoids Screen Alcohol, Quantitative Hepatitis A IgM Ab Hep Bs Antigen Hep B Core IgM Ab Hepatitis C Antibody Blood Type Blood Type Confirm Antibody Screen 02/28/18 02/28/18 02/28/18 07:46 07:48 11:26 WBC RBC Hgb Hct MCV MCH MCHC RDW Plt Count MPV Neut % (Auto) Lymph % (Auto) [place] % (Auto) Eos % (Auto) Baso % (Auto) Neut # (Auto) Lymph # (Auto) [place] # (Auto) Eos # (Auto) Baso # (Auto) Neutrophils % (Manual) Band Neutrophils % Lymphocytes % (Manual) Monocytes % (Manual) Platelet Estimate Hypochromasia (manual) Poikilocytosis (manual Anisocytosis (manual) Target Cells Rhona Cells PT INR APTT pO2 VBG pH VBG pCO2 VBG HCO3 VBG Total CO2 VBG O2 Sat (Calc) VBG Base Excess VBG Potassium Sodium Chloride Glucose Lactate FiO2 Crit Value Called To Crit Value Called By Crit Value Read Back Blood Gas Notified Time Potassium Carbon Dioxide Anion Gap BUN Creatinine Est GFR ( Amer) Est GFR (Non-Af Amer) POC Glucose (mg/dL) 39 L 242 H 73 Random Glucose Serum Osmolality Calcium Phosphorus Magnesium Iron TIBC % Saturation Ferritin Total Bilirubin AST ALT Alkaline Phosphatase Ammonia Total Creatine Kinase Troponin I NT-Pro-B Natriuret Pep Total Protein Albumin Globulin Albumin/Globulin Ratio Triglycerides Cholesterol LDL Cholesterol Direct HDL Cholesterol Vitamin B12 Folate Free T4 TSH 3rd Generation Prolactin Cortisol AM Sample Venous Blood Potassium Urine Color Urine Clarity Urine pH Ur Specific [place] Urine Protein Urine Glucose (UA) Urine Ketones Urine Blood Urine Nitrate Urine Bilirubin Urine Urobilinogen Ur Leukocyte Esterase Urine WBC (Auto) Urine RBC (Auto) Ur Squamous Epith Cells Urine Bacteria Urine Osmolality Ur Random Sodium Urine Opiates Screen Urine Methadone Screen Ur Barbiturates Screen Ur Phencyclidine Scrn Ur Amphetamines Screen U Benzodiazepines Scrn U Oth Cocaine Metabols U Cannabinoids Screen Alcohol, Quantitative Hepatitis A IgM Ab Hep Bs Antigen Hep B Core IgM Ab Hepatitis C Antibody Blood Type Blood Type Confirm Antibody Screen
--- NOTE | 2018-02-28 13:02 | CT ---
Date of service: 02/27/2018. PROCEDURE: CT Angiography of the neck and brain with contrast HISTORY: Altered mental status. Found on ground. COMPARISON: Comparison made with prior CT scan brain 02/27/2018 TECHNIQUE: Contiguous axial images of the neck were obtained from the level of the skull-base to the superior mediastinum in the arteriographic phase of enhancement. Coronal and sagittal reformats or also generated.. IV contrast dose: 100 cc Visipaque [id number] the FINDINGS: RIGHT CAROTID ARTERIES: The aortic arch widely patent. Some minimal calcified atherosclerotic plaque changes seen along the distal transverse and proximal descending aorta.. The great vessels are patent. The common carotid arteries are widely patent. Very tiny calcified atherosclerotic plaque seen left carotid bifurcation. Right carotid bifurcation is also widely patent. The distal internal carotid arteries including the petrous cavernous and supraclinoid segments are patent the no evidence of occlusion. No significant atherosclerotic plaque disease or stenosis. The major branches of the [place] are also patent. The distal anterior middle and posterior cerebral arteries are patent and relatively symmetric. No evidence of large aneurysm nor vascular malformation. OTHER FINDINGS: Note is made of moderately large right-sided effusion and right-sided atelectasis.. Right apical bullous and bleb changes are present.. There also linear fibrotic/scarring changes with some pleural thickening as well. Minimal chronic pleural thickening and parenchymal scarring left lung apex. Re demonstrated is a tiny left-sided acute subdural hematoma and small to medium-sized right-sided subdural hygroma. IMPRESSION: There is a tiny calcified plaque left carotid bifurcation however the remaining cervical entry intracranial circulation unremarkable. No evidence of large aneurysm nor vascular malformation.
[2018-02-28] MEDS: Magnesium Sulfate 1 gm in D5W 1 GM/100 ML BAG IVPB SCH ×2 (13:36→13:38)
[2018-02-28] MEDS ORDERED: Potassium & Sodium Phosphate PO ONE (14:00)
--- NOTE | 2018-02-28 16:32 | CP.PCM.PN ---
Subjective - Date & Time of Evaluation Date of Evaluation: 02/28/18 Time of Evaluation: 16:10 - Subjective Subjective: Patient was seen and examined in the ICU at 4:10 PM 02/28/18. 57 year old [place] rejira speaking male with a long history of Alcohol Abuse who was found on the ground and brought to the ER via EMS. Please see Assessment and Plans below for details. General: He is awake, aware of the month and year and president but could not state where he was or why he is here. He repeated that he had a court date that he needed to get tomorrow and that he would like a new pair of pants. It was explained to him in [facility] why he was in the possible, however I do not feel that this has registered with the patient as he is likely undergoing alcohol withdrawl at this time HEENT: NCA, Pupils are round and reactive to light, Bilateral Scleral Incterus, NO lymphadenopathy, Nasal Turbinates and Oral Mucosa is moist Cardio: NS1 and NS2, NO M/R/G Resp: CTA B/L NO R/R/W however limited by lack of patient participation GI: BS X 4, Soft, Distention is present Ext: Pulses are strong and equal and Capillary Refill is 2 seconds in bilateral UE and LE, Skin changes consistent with chronic venous insufficiency in the bilateral lower legs to the ankles, Right Leg appears to be larger in circumference than the Left Neuro: not possible at this time 1). RLL Infiltrate Vancomycin 1 gm IV Q12H (02/27/18-present): F/U Vancomycin Trough 3:30 AM 03/01/18 Zosyn 3.375 gm IV Q6H (02/27/18-present) Blood Culture 02/27/18: negative to date F/U Urine Culture F/U Mycoplasma IgG and IgM F/U Urine Legionella Ag F/U Urine Strep pneumonaei Ag F/U CT Chest w/o contrast 2). Low K, Low Phos Being repleted 3). Hypothermia Cooling [place] IVF 4). Subdural Hematoma CT Head 02/28/18: small left sided subdural hematoma which has increased in size slightly, small right sided hygroma, mild mass effect with compression of both cerebral hemispheres, mild chronic periventricular white matter ischemic changes, mild generalized volume loss CT Head and Neck 02/27/18: tiny calcified plaque left carotid bifurcation, NO evidence of large aneurysm/vascular malformation Seen by Neurosurgery Dr. Coleman 02/18/18: no surgical intervention warranted and will need repeat CT Head in 1 week Considering large drop in HgB, will order CT Head w/o contrast now 02/28/18 5). Alcohol Abuse Upon exam 02/28/18: evidence of tremors of the upper body, aware of month and year and president Start Ativan Taper 02/28/18 to finish at 1PM 6). Anemia Likely Secondary to Hx Alcohol Abuse Monitor HgB/Hct Vitamin B12 normal at 856 Folate normal at 3.3 Iron Studies: Total Iron at 117, % Saturation 55, Ferritin 689, TIBC low at 212 7). Thrombocytopenia Likely Secondary to Hx Alcohol Abuse Monitor Hold anticoagulation 8). Elevated LFTs Likely Secondary to Hx Alcohol Abuse Abdominal U/S 02/27/18: nodular hepatic contour consistent with cirrhosis, echogenic liver may be seen in the setting of hepatic parynchymal disease or fatty infiltration, small ascites, gallstones Hepatitis Panel 02/27/18: negative F/U HIV 4th Generation 9). Hyponatremia SIADH vs. Adrenal Insufficiency vs. Hyponatremia vs Hyperprolactinemia Urine Osmolalilty normal at 455 Urine Na low <5 TSH, Free T4 are normal AM Cortisol 02/28/18 is elevated at 44.5 Prolactin Level is elevated 21.3 Triglycerides elevated at 193 Please note that although the labs (Urine Osm and Urine Na does not indicated SIADH, considering the Subdural Hematoma and the fact that patient was already being treated prior to these labs being drawn SIADH is still a possibility) 10). Elevated CPK Could be secondary to Rhabdomyolysis IVF NS at 100 ml/hr F/U CPK 11). Prophylaxis NO anticoagulation considering the Subdural Hematoma, Anemia, Thrombocytopenia NO SCDs until results of Venoud Duplex are known NO PPI/H2 Antagonists indicated at this time F/U Venous Duplex of Bilateral LE Jerardo Giraldo D.O. Objective - Vital Signs/Intake and Output Vital Signs (last 24 hours): Temp Pulse Resp BP Pulse Ox 90.4 F L 126 H 42 H 145/73 93 L 02/27/18 18:00 02/28/18 07:02 02/28/18 07:02 02/28/18 07:02 02/28/18 07:02 Intake and Output: 02/28/18 02/28/18 06:59 18:59 Intake Total 1400 Output Total 700 Balance 700 - Medications Medications: Current Medications Dextrose (Glutose 15) 0 gm PO ONCE PRN; Protocol PRN Reason: Hypoglycemia Protocol Glucagon (Glucagen Diagnostic Kit) 1 mg IM STAT PRN; Protocol PRN Reason: Hypoglycemia Protocol Piperacillin Sod/Tazobactam Sod (Zosyn 3.375 Gm Iv Premix) 3.375 gm in 50 mls @ 100 mls/hr IVPB Q6H ASHLEIGH; Protocol Last Admin: 02/28/18 15:45 Dose: 100 mls/hr Vancomycin/Sodium Chloride (Vancomycin 1 Gm/Ns 200 Ml) 1 gm in 200 mls @ 133.333 mls/hr IVPB Q12H ASHLEIGH; Protocol Stop: 03/04/18 16:01 Last Admin: 02/28/18 15:46 Dose: 133.333 mls/hr Dextrose (Dextrose 5% In Water 1000 Ml) 1,000 mls @ 0 mls/hr IV .Q0M PRN; Protocol PRN Reason: Hypoglycemia Protocol Multivitamins/Vitamin C 10 ml/Thiamine HCl 100 mg/ Folic Acid 1 mg/ Sodium Chloride 1,011.2 mls @ 100 mls/hr IV .Q10H7M ONE Stop: 02/28/18 18:36 Last Admin: 02/28/18 09:17 Dose: 100 mls/hr Influenza Virus Vaccine (Fluzone Quad [id number]) 60 mcg IM .ONCE ONE Stop: 03/02/18 10:01 Lactobacillus Acidophilus (Bacid Acidophilus) 1 cap PO BID ASHLEIGH Last Admin: 02/28/18 09:17 Dose: Not Given Lorazepam (Ativan) 1 mg PO Q4H PRN PRN Reason: Agitation Pantoprazole Sodium (Protonix Inj) 40 mg IVP DAILY ASHLEIGH Last Admin: 02/28/18 09:17 Dose: 40 mg Pneumococcal Polyvalent Vaccine (Pneumovax 23 Vaccine) 0.5 ml IM .ONCE ONE Stop: 03/02/18 10:01 - Labs Labs: 02/28/18 07:14 02/28/18 07:14 PT 19.9 SECONDS (9.7-12.2) H D 02/28/18 07:14 INR 1.8 D 02/28/18 07:14 APTT 40 SECONDS (21-34) H 02/27/18 12:58
--- NOTE | 2018-02-28 17:39 | CP.CCUPN ---
<Bobo Miller - Last Filed: 02/28/18 17:37> CCU Subjective - Physician Review Events Since Last Encounter (Free Text): 02/28/18 17:37 No acute events overnight Subjective (Free Text): 02/28/18 17:37 PGY1 Critical Care Consult Note for Dr. Shay Patient seen and evaluated at bedside this morning. Patient arousable. No complaints. Patient is altered. 12 point ROS could not be obtained due to clinical condition. Patient on CIWA protocol. Patient was found to have small subdural hematomy on CT head without contrast 02/27/18. Critical Care Time Spent (in minutes): 35 CCU Objective - Vital Signs / Intake & Output Intake and Output (Last 8hrs): Intake & Output 02/28/18 02/28/18 02/28/18 06:59 14:59 22:59 Intake Total 850 Output Total 300 Balance 550 Weight 167 lb 15.876 oz Intake: Intake, IV Amount 250 Left Hand 250 Right Antecubital 0 Blood Product 600 Output: Urine 300 Urine, Voided 300 Other: # Voids Urine, Voided 1 # Bowel Movements 1 - Physical Exam Physical Exam Limitations: Positive for: Altered Mental Status Head: Positive for: Atraumatic, Normocephalic Pupils: Positive for: PERRL Extroacular Muscles: Positive for: EOMI Conjunctiva: Positive for: Normal, Icteric (bilaterally ) Mouth: Positive for: Moist Mucous Membranes Neck: Positive for: Normal Range of Motion Respiratory/Chest: Positive for: Clear to Auscultation. Negative for: Respiratory Distress, Accessory Muscle Use Cardiovascular: Positive for: Regular Rate and Rhythm, Normal S1, S2. Negative for: Murmurs Abdomen: Positive for: Normal Bowel Sounds. Negative for: Tenderness, Distent ion Back: Positive for: Normal Inspection Lower Extremity: Positive for: Edema (bilaterally ), Neurovascularly Intact, Capillary Refill < 2 s. Negative for: Tenderness Neurological: Positive for: Other (Patient is sedated and not verbally responsive at this time) Skin: Positive for: Warm, Dry Psychiatric: Positive for: Alert - Medications Active Medications: Active Medications Generic Name Dose Route Start Last Admin Trade Name Freq PRN Reason Stop Dose Admin Dextrose 0 gm 02/28/18 07:44 Glutose 15 PO ONCE PRN Hypoglycemia Protocol Protocol Glucagon 1 mg 02/28/18 07:44 Glucagen Diagnostic Kit IM STAT PRN Hypoglycemia Protocol Protocol Piperacillin Sod/Tazobactam Sod 3.375 gm in 50 mls @ 100 mls/hr 02/27/18 16:00 02/28/18 15:45 Zosyn 3.375 Gm Iv Premix IVPB 100 mls/hr Q6H ASHLEIGH Administration Protocol Vancomycin/Sodium Chloride 1 gm in 200 mls @ 133.333 mls/hr 02/27/18 16:00 02/28/18 15:46 Vancomycin 1 Gm/Ns 200 Ml IVPB 03/04/18 16:01 133.333 mls/hr Q12H ASHLEIGH Administration Protocol Dextrose 1,000 mls @ 0 mls/hr 02/28/18 07:44 Dextrose 5% In Water 1000 Ml IV .Q0M PRN Hypoglycemia Protocol Protocol Per Protocol Multivitamins/Vitamin C 10 ml/ 1,011.2 mls @ 100 mls/hr 02/28/18 08:30 02/28/18 09:17 Thiamine HCl 100 mg/ Folic IV 02/28/18 18:36 100 mls/hr Acid 1 mg/ Sodium Chloride .Q10H7M ONE Administration Influenza Virus Vaccine 60 mcg 03/02/18 10:00 Fluzone Quad [id number] IM 03/02/18 10:01 .ONCE ONE Lactobacillus Acidophilus 1 cap 02/28/18 10:00 02/28/18 09:17 Bacid Acidophilus PO Not Given BID ASHLEIGH Lorazepam 2 mg 02/28/18 17:30 Ativan PO 03/05/18 13:09 Q8H ASHLEIGH Taper Lorazepam 1 mg 02/28/18 17:20 Ativan IVP Q6H PRN Agitation Pantoprazole Sodium 40 mg 02/28/18 10:00 02/28/18 09:17 Protonix Inj IVP 40 mg DAILY ASHLEIGH Administration Pneumococcal Polyvalent Vaccine 0.5 ml 03/02/18 10:00 Pneumovax 23 Vaccine IM 03/02/18 10:01 .ONCE ONE - Patient Studies Lab Studies: Microbiology Studies 02/27/18 13:57 Blood Culture - Preliminary Blood NO GROWTH AFTER 24 HOURS 02/27/18 12:58 Blood Culture - Preliminary Blood NO GROWTH AFTER 24 HOURS Lab Studies 02/28/18 02/28/18 02/28/18 Range/Units 11:26 07:48 07:46 WBC (4.8-10.8) K/uL RBC (4.40-5.90) Mil/uL Hgb (12.0-18.0) g/dL Hct (35.0-51.0) % MCV (80.0-94.0) fL MCH (27.0-31.0) pg MCHC (33.0-37.0) g/dL RDW (11.5-14.5) % Plt Count (130-400) K/uL MPV (7.2-11.7) fL Neut % (Auto) (50.0-75.0) % Lymph % (Auto) (20.0-40.0) % Wilson % (Auto) (0.0-10.0) % Eos % (Auto) (0.0-4.0) % Baso % (Auto) (0.0-2.0) % Neut # (Auto) (1.8-7.0) K/uL Lymph # (Auto) (1.0-4.3) K/uL Wilson # (Auto) (0.0-0.8) K/uL Eos # (Auto) (0.0-0.7) K/uL Baso # (Auto) (0.0-0.2) K/uL Neutrophils % (Manual) (50-75) % Band Neutrophils % (0-2) % Lymphocytes % (Manual) (20-40) % Monocytes % (Manual) (0-10) % Platelet Estimate (NORMAL) Anisocytosis (manual) Target Cells PT (9.7-12.2) SECONDS INR Sodium (132-148) mmol/L Potassium (3.6-5.2) mmol/L Chloride (98-107) mmol/L Carbon Dioxide (22-30) mmol/L Anion Gap (10-20) BUN (9-20) mg/dL Creatinine (0.8-1.5) mg/dL Est GFR ( Amer) Est GFR (Non-Af Amer) POC Glucose (mg/dL) 73 242 H 39 L (65-110) mg/dL Random Glucose (75-110) mg/dL Serum Osmolality (272-300) mosm/kg Calcium (8.6-10.4) mg/dl Phosphorus (2.5-4.5) mg/dL Magnesium (1.6-2.3) mg/dL Iron (49-181) ug/dL TIBC (250-450) ug/dL % Saturation (20-55) Ferritin ng/mL Total Bilirubin (0.2-1.3) mg/dL AST (17-59) U/L ALT (21-72) U/L Alkaline Phosphatase (38-126) U/L Ammonia (9-33) umol/L Total Protein (6.3-8.3) g/dL Albumin (3.5-5.0) g/dL Globulin (2.2-3.9) gm/dL Albumin/Globulin Ratio (1.0-2.1) Triglycerides (0-149) mg/dL Cholesterol (0-199) mg/dL LDL Cholesterol Direct (0-129) mg/dL HDL Cholesterol (30-70) mg/dL Vitamin B12 (239-931) pg/mL Folate ng/mL Free T4 (0.78-2.19) ng/dL TSH 3rd Generation (0.46-4.68) mIU/L Prolactin (3.7-17.9) ng/mL Cortisol AM Sample (4.46-22.7) ug/dL Urine Osmolality (300-1000) mosm/kg Ur Random Sodium mmol/L Urine Opiates Screen (NEGATIVE) Urine Methadone Screen (NEGATIVE) Ur Barbiturates Screen (NEGATIVE) Ur Phencyclidine Scrn (NEGATIVE) Ur Amphetamines Screen (NEGATIVE) U Benzodiazepines Scrn (NEGATIVE) U Oth Cocaine Metabols (NEGATIVE) U Cannabinoids Screen (NEGATIVE) Hepatitis A IgM Ab (NEGATIVE) Hep Bs Antigen (NEGATIVE) Hep B Core IgM Ab (NEGATIVE) Hepatitis C Antibody (NEGATIVE) Blood Type Blood Type Confirm Antibody Screen 02/28/18 02/28/18 02/28/18 Range/Units 07:14 07:14 07:14 WBC 9.7 (4.8-10.8) K/uL RBC 2.51 L (4.40-5.90) Mil/uL Hgb 8.3 L (12.0-18.0) g/dL Hct 23.9 L (35.0-51.0) % MCV 95.1 H (80.0-94.0) fL MCH 33.0 H (27.0-31.0) pg MCHC 34.7 (33.0-37.0) g/dL RDW 17.9 H (11.5-14.5) % Plt Count 86 L (130-400) K/uL MPV 9.1 (7.2-11.7) fL Neut % (Auto) 84.9 H (50.0-75.0) % Lymph % (Auto) 3.1 L (20.0-40.0) % Wilson % (Auto) 9.4 (0.0-10.0) % Eos % (Auto) 2.3 (0.0-4.0) % Baso % (Auto) 0.3 (0.0-2.0) % Neut # (Auto) 8.2 H (1.8-7.0) K/uL Lymph # (Auto) 0.3 L (1.0-4.3) K/uL Wilson # (Auto) 0.9 H (0.0-0.8) K/uL Eos # (Auto) 0.2 (0.0-0.7) K/uL Baso # (Auto) 0.0 (0.0-0.2) K/uL Neutrophils % (Manual) 79 H (50-75) % Band Neutrophils % 9 H (0-2) % Lymphocytes % (Manual) 2 L (20-40) % Monocytes % (Manual) 10 (0-10) % Platelet Estimate Decreased L (NORMAL) Anisocytosis (manual) Slight Target Cells Moderate PT 19.9 H D (9.7-12.2) SECONDS INR 1.8 D Sodium 127 L (132-148) mmol/L Potassium 2.9 L (3.6-5.2) mmol/L Chloride 88 L (98-107) mmol/L Carbon Dioxide 22 (22-30) mmol/L Anion Gap 20 (10-20) BUN 6 L (9-20) mg/dL Creatinine 0.6 L (0.8-1.5) mg/dL Est GFR ( Amer) > 60 Est GFR (Non-Af Amer) > 60 POC Glucose (mg/dL) (65-110) mg/dL Random Glucose 47 L (75-110) mg/dL Serum Osmolality (272-300) mosm/kg Calcium 7.0 L (8.6-10.4) mg/dl Phosphorus 1.5 L (2.5-4.5) mg/dL Magnesium 1.4 L (1.6-2.3) mg/dL Iron (49-181) ug/dL TIBC (250-450) ug/dL % Saturation (20-55) Ferritin ng/mL Total Bilirubin 7.7 H (0.2-1.3) mg/dL AST 543 H (17-59) U/L ALT 90 H (21-72) U/L Alkaline Phosphatase 188 H (38-126) U/L Ammonia (9-33) umol/L Total Protein 7.2 (6.3-8.3) g/dL Albumin 2.9 L (3.5-5.0) g/dL Globulin 4.3 H (2.2-3.9) gm/dL Albumin/Globulin Ratio 0.7 L (1.0-2.1) Triglycerides (0-149) mg/dL Cholesterol (0-199) mg/dL LDL Cholesterol Direct (0-129) mg/dL HDL Cholesterol (30-70) mg/dL Vitamin B12 (239-931) pg/mL Folate ng/mL Free T4 (0.78-2.19) ng/dL TSH 3rd Generation (0.46-4.68) mIU/L Prolactin (3.7-17.9) ng/mL Cortisol AM Sample (4.46-22.7) ug/dL Urine Osmolality (300-1000) mosm/kg Ur Random Sodium mmol/L Urine Opiates Screen (NEGATIVE) Urine Methadone Screen (NEGATIVE) Ur Barbiturates Screen (NEGATIVE) Ur Phencyclidine Scrn (NEGATIVE) Ur Amphetamines Screen (NEGATIVE) U Benzodiazepines Scrn (NEGATIVE) U Oth Cocaine Metabols (NEGATIVE) U Cannabinoids Screen (NEGATIVE) Hepatitis A IgM Ab (NEGATIVE) Hep Bs Antigen (NEGATIVE) Hep B Core IgM Ab (NEGATIVE) Hepatitis C Antibody (NEGATIVE) Blood Type Blood Type Confirm Antibody Screen 02/28/18 02/28/18 02/28/18 Range/Units 06:34 06:34 06:34 WBC (4.8-10.8) K/uL RBC (4.40-5.90) Mil/uL Hgb (12.0-18.0) g/dL Hct (35.0-51.0) % MCV (80.0-94.0) fL MCH (27.0-31.0) pg MCHC (33.0-37.0) g/dL RDW (11.5-14.5) % Plt Count (130-400) K/uL MPV (7.2-11.7) fL Neut % (Auto) (50.0-75.0) % Lymph % (Auto) (20.0-40.0) % Wilson % (Auto) (0.0-10.0) % Eos % (Auto) (0.0-4.0) % Baso % (Auto) (0.0-2.0) % Neut # (Auto) (1.8-7.0) K/uL Lymph # (Auto) (1.0-4.3) K/uL Wilson # (Auto) (0.0-0.8) K/uL Eos # (Auto) (0.0-0.7) K/uL Baso # (Auto) (0.0-0.2) K/uL Neutrophils % (Manual) (50-75) % Band Neutrophils % (0-2) % Lymphocytes % (Manual) (20-40) % Monocytes % (Manual) (0-10) % Platelet Estimate (NORMAL) Anisocytosis (manual) Target Cells PT (9.7-12.2) SECONDS INR Sodium (132-148) mmol/L Potassium (3.6-5.2) mmol/L Chloride (98-107) mmol/L Carbon Dioxide (22-30) mmol/L Anion Gap (10-20) BUN (9-20) mg/dL Creatinine (0.8-1.5) mg/dL Est GFR ( Amer) Est GFR (Non-Af Amer) POC Glucose (mg/dL) (65-110) mg/dL Random Glucose (75-110) mg/dL Serum Osmolality (272-300) mosm/kg Calcium (8.6-10.4) mg/dl Phosphorus (2.5-4.5) mg/dL Magnesium (1.6-2.3) mg/dL Iron (49-181) ug/dL TIBC (250-450) ug/dL % Saturation (20-55) Ferritin ng/mL Total Bilirubin (0.2-1.3) mg/dL AST (17-59) U/L ALT (21-72) U/L Alkaline Phosphatase (38-126) U/L Ammonia (9-33) umol/L Total Protein (6.3-8.3) g/dL Albumin (3.5-5.0) g/dL Globulin (2.2-3.9) gm/dL Albumin/Globulin Ratio (1.0-2.1) Triglycerides 192 H (0-149) mg/dL Cholesterol 94 (0-199) mg/dL LDL Cholesterol Direct 50 (0-129) mg/dL HDL Cholesterol 11 L (30-70) mg/dL Vitamin B12 (239-931) pg/mL Folate ng/mL Free T4 1.05 (0.78-2.19) ng/dL TSH 3rd Generation 1.22 (0.46-4.68) mIU/L Prolactin (3.7-17.9) ng/mL Cortisol AM Sample 44.2 H (4.46-22.7) ug/dL Urine Osmolality (300-1000) mosm/kg Ur Random Sodium mmol/L Urine Opiates Screen (NEGATIVE) Urine Methadone Screen (NEGATIVE) Ur Barbiturates Screen (NEGATIVE) Ur Phencyclidine Scrn (NEGATIVE) Ur Amphetamines Screen (NEGATIVE) U Benzodiazepines Scrn (NEGATIVE) U Oth Cocaine Metabols (NEGATIVE) U Cannabinoids Screen (NEGATIVE) Hepatitis A IgM Ab (NEGATIVE) Hep Bs Antigen (NEGATIVE) Hep B Core IgM Ab (NEGATIVE) Hepatitis C Antibody (NEGATIVE) Blood Type Blood Type Confirm Antibody Screen 02/28/18 02/28/18 02/28/18 Range/Units 06:34 06:34 06:34 WBC (4.8-10.8) K/uL RBC (4.40-5.90) Mil/uL Hgb (12.0-18.0) g/dL Hct (35.0-51.0) % MCV (80.0-94.0) fL MCH (27.0-31.0) pg MCHC (33.0-37.0) g/dL RDW (11.5-14.5) % Plt Count (130-400) K/uL MPV (7.2-11.7) fL Neut % (Auto) (50.0-75.0) % Lymph % (Auto) (20.0-40.0) % Wilson % (Auto) (0.0-10.0) % Eos % (Auto) (0.0-4.0) % Baso % (Auto) (0.0-2.0) % Neut # (Auto) (1.8-7.0) K/uL Lymph # (Auto) (1.0-4.3) K/uL Wilson # (Auto) (0.0-0.8) K/uL Eos # (Auto) (0.0-0.7) K/uL Baso # (Auto) (0.0-0.2) K/uL Neutrophils % (Manual) (50-75) % Band Neutrophils % (0-2) % Lymphocytes % (Manual) (20-40) % Monocytes % (Manual) (0-10) % Platelet Estimate (NORMAL) Anisocytosis (manual) Target Cells PT (9.7-12.2) SECONDS INR Sodium (132-148) mmol/L Potassium (3.6-5.2) mmol/L Chloride (98-107) mmol/L Carbon Dioxide (22-30) mmol/L Anion Gap (10-20) BUN (9-20) mg/dL Creatinine (0.8-1.5) mg/dL Est GFR ( Amer) Est GFR (Non-Af Amer) POC Glucose (mg/dL) (65-110) mg/dL Random Glucose (75-110) mg/dL Serum Osmolality (272-300) mosm/kg Calcium (8.6-10.4) mg/dl Phosphorus (2.5-4.5) mg/dL Magnesium (1.6-2.3) mg/dL Iron 117 (49-181) ug/dL TIBC 212 L 210 L (250-450) ug/dL % Saturation 55 56 H (20-55) Ferritin 689.0 ng/mL Total Bilirubin (0.2-1.3) mg/dL AST (17-59) U/L ALT (21-72) U/L Alkaline Phosphatase (38-126) U/L Ammonia (9-33) umol/L Total Protein (6.3-8.3) g/dL Albumin (3.5-5.0) g/dL Globulin (2.2-3.9) gm/dL Albumin/Globulin Ratio (1.0-2.1) Triglycerides (0-149) mg/dL Cholesterol (0-199) mg/dL LDL Cholesterol Direct (0-129) mg/dL HDL Cholesterol (30-70) mg/dL Vitamin B12 856 (239-931) pg/mL Folate 3.3 ng/mL Free T4 (0.78-2.19) ng/dL TSH 3rd Generation (0.46-4.68) mIU/L Prolactin 21.3 H (3.7-17.9) ng/mL Cortisol AM Sample (4.46-22.7) ug/dL Urine Osmolality (300-1000) mosm/kg Ur Random Sodium mmol/L Urine Opiates Screen (NEGATIVE) Urine Methadone Screen (NEGATIVE) Ur Barbiturates Screen (NEGATIVE) Ur Phencyclidine Scrn (NEGATIVE) Ur Amphetamines Screen (NEGATIVE) U Benzodiazepines Scrn (NEGATIVE) U Oth Cocaine Metabols (NEGATIVE) U Cannabinoids Screen (NEGATIVE) Hepatitis A IgM Ab (NEGATIVE) Hep Bs Antigen (NEGATIVE) Hep B Core IgM Ab (NEGATIVE) Hepatitis C Antibody (NEGATIVE) Blood Type Blood Type Confirm Antibody Screen 02/27/18 02/27/18 02/27/18 Range/Units 23:16 22:37 18:44 WBC (4.8-10.8) K/uL RBC (4.40-5.90) Mil/uL Hgb (12.0-18.0) g/dL Hct (35.0-51.0) % MCV (80.0-94.0) fL MCH (27.0-31.0) pg MCHC (33.0-37.0) g/dL RDW (11.5-14.5) % Plt Count (130-400) K/uL MPV (7.2-11.7) fL Neut % (Auto) (50.0-75.0) % Lymph % (Auto) (20.0-40.0) % Wilson % (Auto) (0.0-10.0) % Eos % (Auto) (0.0-4.0) % Baso % (Auto) (0.0-2.0) % Neut # (Auto) (1.8-7.0) K/uL Lymph # (Auto) (1.0-4.3) K/uL Wilson # (Auto) (0.0-0.8) K/uL Eos # (Auto) (0.0-0.7) K/uL Baso # (Auto) (0.0-0.2) K/uL Neutrophils % (Manual) (50-75) % Band Neutrophils % (0-2) % Lymphocytes % (Manual) (20-40) % Monocytes % (Manual) (0-10) % Platelet Estimate (NORMAL) Anisocytosis (manual) Target Cells PT (9.7-12.2) SECONDS INR Sodium (132-148) mmol/L Potassium (3.6-5.2) mmol/L Chloride (98-107) mmol/L Carbon Dioxide (22-30) mmol/L Anion Gap (10-20) BUN (9-20) mg/dL Creatinine (0.8-1.5) mg/dL Est GFR ( Amer) Est GFR (Non-Af Amer) POC Glucose (mg/dL) (65-110) mg/dL Random Glucose (75-110) mg/dL Serum Osmolality (272-300) mosm/kg Calcium (8.6-10.4) mg/dl Phosphorus (2.5-4.5) mg/dL Magnesium (1.6-2.3) mg/dL Iron (49-181) ug/dL TIBC (250-450) ug/dL % Saturation (20-55) Ferritin ng/mL Total Bilirubin (0.2-1.3) mg/dL AST (17-59) U/L ALT (21-72) U/L Alkaline Phosphatase (38-126) U/L Ammonia (9-33) umol/L Total Protein (6.3-8.3) g/dL Albumin (3.5-5.0) g/dL Globulin (2.2-3.9) gm/dL Albumin/Globulin Ratio (1.0-2.1) Triglycerides (0-149) mg/dL Cholesterol (0-199) mg/dL LDL Cholesterol Direct (0-129) mg/dL HDL Cholesterol (30-70) mg/dL Vitamin B12 (239-931) pg/mL Folate ng/mL Free T4 (0.78-2.19) ng/dL TSH 3rd Generation (0.46-4.68) mIU/L Prolactin (3.7-17.9) ng/mL Cortisol AM Sample (4.46-22.7) ug/dL Urine Osmolality 455 (300-1000) mosm/kg Ur Random Sodium < 5 mmol/L Urine Opiates Screen Negative (NEGATIVE) Urine Methadone Screen Negative (NEGATIVE) Ur Barbiturates Screen Negative (NEGATIVE) Ur Phencyclidine Scrn Negative (NEGATIVE) Ur Amphetamines Screen Negative (NEGATIVE) U Benzodiazepines Scrn Negative (NEGATIVE) U Oth Cocaine Metabols Negative (NEGATIVE) U Cannabinoids Screen Negative (NEGATIVE) Hepatitis A IgM Ab Negative (NEGATIVE) Hep Bs Antigen Negative (NEGATIVE) Hep B Core IgM Ab Negative (NEGATIVE) Hepatitis C Antibody Negative (NEGATIVE) Blood Type B POSITIVE Blood Type Confirm B POSITIVE Antibody Screen Negative 02/27/18 02/27/18 Range/Units 18:44 18:44 WBC (4.8-10.8) K/uL RBC (4.40-5.90) Mil/uL Hgb (12.0-18.0) g/dL Hct (35.0-51.0) % MCV (80.0-94.0) fL MCH (27.0-31.0) pg MCHC (33.0-37.0) g/dL RDW (11.5-14.5) % Plt Count (130-400) K/uL MPV (7.2-11.7) fL Neut % (Auto) (50.0-75.0) % Lymph % (Auto) (20.0-40.0) % Wilson % (Auto) (0.0-10.0) % Eos % (Auto) (0.0-4.0) % Baso % (Auto) (0.0-2.0) % Neut # (Auto) (1.8-7.0) K/uL Lymph # (Auto) (1.0-4.3) K/uL Wilson # (Auto) (0.0-0.8) K/uL Eos # (Auto) (0.0-0.7) K/uL Baso # (Auto) (0.0-0.2) K/uL Neutrophils % (Manual) (50-75) % Band Neutrophils % (0-2) % Lymphocytes % (Manual) (20-40) % Monocytes % (Manual) (0-10) % Platelet Estimate (NORMAL) Anisocytosis (manual) Target Cells PT (9.7-12.2) SECONDS INR Sodium (132-148) mmol/L Potassium (3.6-5.2) mmol/L Chloride (98-107) mmol/L Carbon Dioxide (22-30) mmol/L Anion Gap (10-20) BUN (9-20) mg/dL Creatinine (0.8-1.5) mg/dL Est GFR ( Amer) Est GFR (Non-Af Amer) POC Glucose (mg/dL) (65-110) mg/dL Random Glucose (75-110) mg/dL Serum Osmolality 315 H (272-300) mosm/kg Calcium (8.6-10.4) mg/dl Phosphorus (2.5-4.5) mg/dL Magnesium (1.6-2.3) mg/dL Iron (49-181) ug/dL TIBC (250-450) ug/dL % Saturation (20-55) Ferritin ng/mL Total Bilirubin (0.2-1.3) mg/dL AST (17-59) U/L ALT (21-72) U/L Alkaline Phosphatase (38-126) U/L Ammonia 9 (9-33) umol/L Total Protein (6.3-8.3) g/dL Albumin (3.5-5.0) g/dL Globulin (2.2-3.9) gm/dL Albumin/Globulin Ratio (1.0-2.1) Triglycerides (0-149) mg/dL Cholesterol (0-199) mg/dL LDL Cholesterol Direct (0-129) mg/dL HDL Cholesterol (30-70) mg/dL Vitamin B12 (239-931) pg/mL Folate ng/mL Free T4 (0.78-2.19) ng/dL TSH 3rd Generation (0.46-4.68) mIU/L Prolactin (3.7-17.9) ng/mL Cortisol AM Sample (4.46-22.7) ug/dL Urine Osmolality (300-1000) mosm/kg Ur Random Sodium mmol/L Urine Opiates Screen (NEGATIVE) Urine Methadone Screen (NEGATIVE) Ur Barbiturates Screen (NEGATIVE) Ur Phencyclidine Scrn (NEGATIVE) Ur Amphetamines Screen (NEGATIVE) U Benzodiazepines Scrn (NEGATIVE) U Oth Cocaine Metabols (NEGATIVE) U Cannabinoids Screen (NEGATIVE) Hepatitis A IgM Ab (NEGATIVE) Hep Bs Antigen (NEGATIVE) Hep B Core IgM Ab (NEGATIVE) Hepatitis C Antibody (NEGATIVE) Blood Type Blood Type Confirm Antibody Screen Laboratory Results - last 24 hr 02/27/18 02/27/18 02/27/18 18:44 18:44 18:44 WBC RBC Hgb Hct MCV MCH MCHC RDW Plt Count MPV Neut % (Auto) Lymph % (Auto) Wilson % (Auto) Eos % (Auto) Baso % (Auto) Neut # (Auto) Lymph # (Auto) Wilson # (Auto) Eos # (Auto) Baso # (Auto) Neutrophils % (Manual) Band Neutrophils % Lymphocytes % (Manual) Monocytes % (Manual) Platelet Estimate Anisocytosis (manual) Target Cells PT INR Sodium Potassium Chloride Carbon Dioxide Anion Gap BUN Creatinine Est GFR ( Amer) Est GFR (Non-Af Amer) POC Glucose (mg/dL) Random Glucose Serum Osmolality 315 H Calcium Phosphorus Magnesium Iron TIBC % Saturation Ferritin Total Bilirubin AST ALT Alkaline Phosphatase Ammonia 9 Total Protein Albumin Globulin Albumin/Globulin Ratio Triglycerides Cholesterol LDL Cholesterol Direct HDL Cholesterol Vitamin B12 Folate Free T4 TSH 3rd Generation Prolactin Cortisol AM Sample Urine Osmolality Ur Random Sodium Urine Opiates Screen Urine Methadone Screen Ur Barbiturates Screen Ur Phencyclidine Scrn Ur Amphetamines Screen U Benzodiazepines Scrn U Oth Cocaine Metabols U Cannabinoids Screen Hepatitis A IgM Ab Negative Hep Bs Antigen Negative Hep B Core IgM Ab Negative Hepatitis C Antibody Negative Blood Type Blood Type Confirm Antibody Screen 02/27/18 02/27/18 02/28/18 22:37 23:16 06:34 WBC RBC Hgb Hct MCV MCH MCHC RDW Plt Count MPV Neut % (Auto) Lymph % (Auto) Wilson % (Auto) Eos % (Auto) Baso % (Auto) Neut # (Auto) Lymph # (Auto) Wilson # (Auto) Eos # (Auto) Baso # (Auto) Neutrophils % (Manual) Band Neutrophils % Lymphocytes % (Manual) Monocytes % (Manual) Platelet Estimate Anisocytosis (manual) Target Cells PT INR Sodium Potassium Chloride Carbon Dioxide Anion Gap BUN Creatinine Est GFR ( Amer) Est GFR (Non-Af Amer) POC Glucose (mg/dL) Random Glucose Serum Osmolality Calcium Phosphorus Magnesium Iron TIBC 210 L % Saturation 56 H Ferritin Total Bilirubin AST ALT Alkaline Phosphatase Ammonia Total Protein Albumin Globulin Albumin/Globulin Ratio Triglycerides Cholesterol LDL Cholesterol Direct HDL Cholesterol Vitamin B12 Folate Free T4 TSH 3rd Generation Prolactin Cortisol AM Sample Urine Osmolality 455 Ur Random Sodium < 5 Urine Opiates Screen Negative Urine Methadone Screen Negative Ur Barbiturates Screen Negative Ur Phencyclidine Scrn Negative Ur Amphetamines Screen Negative U Benzodiazepines Scrn Negative U Oth Cocaine Metabols Negative U Cannabinoids Screen Negative Hepatitis A IgM Ab Hep Bs Antigen Hep B Core IgM Ab Hepatitis C Antibody Blood Type B POSITIVE Blood Type Confirm B POSITIVE Antibody Screen Negative 02/28/18 02/28/18 02/28/18 06:34 06:34 06:34 WBC RBC Hgb Hct MCV MCH MCHC RDW Plt Count MPV Neut % (Auto) Lymph % (Auto) Wilson % (Auto) Eos % (Auto) Baso % (Auto) Neut # (Auto) Lymph # (Auto) Wilson # (Auto) Eos # (Auto) Baso # (Auto) Neutrophils % (Manual) Band Neutrophils % Lymphocytes % (Manual) Monocytes % (Manual) Platelet Estimate Anisocytosis (manual) Target Cells PT INR Sodium Potassium Chloride Carbon Dioxide Anion Gap BUN Creatinine Est GFR ( Amer) Est GFR (Non-Af Amer) POC Glucose (mg/dL) Random Glucose Serum Osmolality Calcium Phosphorus Magnesium Iron 117 TIBC 212 L % Saturation 55 Ferritin 689.0 Total Bilirubin AST ALT Alkaline Phosphatase Ammonia Total Protein Albumin Globulin Albumin/Globulin Ratio Triglycerides Cholesterol LDL Cholesterol Direct HDL Cholesterol Vitamin B12 856 Folate 3.3 Free T4 TSH 3rd Generation Prolactin 21.3 H Cortisol AM Sample 44.2 H Urine Osmolality Ur Random Sodium Urine Opiates Screen Urine Methadone Screen Ur Barbiturates Screen Ur Phencyclidine Scrn Ur Amphetamines Screen U Benzodiazepines Scrn U Oth Cocaine Metabols U Cannabinoids Screen Hepatitis A IgM Ab Hep Bs Antigen Hep B Core IgM Ab Hepatitis C Antibody Blood Type Blood Type Confirm Antibody Screen 02/28/18 02/28/18 02/28/18 06:34 06:34 07:14 WBC RBC Hgb Hct MCV MCH MCHC RDW Plt Count MPV Neut % (Auto) Lymph % (Auto) Wilson % (Auto) Eos % (Auto) Baso % (Auto) Neut # (Auto) Lymph # (Auto) Wilson # (Auto) Eos # (Auto) Baso # (Auto) Neutrophils % (Manual) Band Neutrophils % Lymphocytes % (Manual) Monocytes % (Manual) Platelet Estimate Anisocytosis (manual) Target Cells PT 19.9 H D INR 1.8 D Sodium Potassium Chloride Carbon Dioxide Anion Gap BUN Creatinine Est GFR ( Amer) Est GFR (Non-Af Amer) POC Glucose (mg/dL) Random Glucose Serum Osmolality Calcium Phosphorus Magnesium Iron TIBC % Saturation Ferritin Total Bilirubin AST ALT Alkaline Phosphatase Ammonia Total Protein Albumin Globulin Albumin/Globulin Ratio Triglycerides 192 H Cholesterol 94 LDL Cholesterol Direct 50 HDL Cholesterol 11 L Vitamin B12 Folate Free T4 1.05 TSH 3rd Generation 1.22 Prolactin Cortisol AM Sample Urine Osmolality Ur Random Sodium Urine Opiates Screen Urine Methadone Screen Ur Barbiturates Screen Ur Phencyclidine Scrn Ur Amphetamines Screen U Benzodiazepines Scrn U Oth Cocaine Metabols U Cannabinoids Screen Hepatitis A IgM Ab Hep Bs Antigen Hep B Core IgM Ab Hepatitis C Antibody Blood Type Blood Type Confirm Antibody Screen 02/28/18 02/28/18 02/28/18 07:14 07:14 07:46 WBC 9.7 RBC 2.51 L Hgb 8.3 L Hct 23.9 L MCV 95.1 H MCH 33.0 H MCHC 34.7 RDW 17.9 H Plt Count 86 L MPV 9.1 Neut % (Auto) 84.9 H Lymph % (Auto) 3.1 L Wilson % (Auto) 9.4 Eos % (Auto) 2.3 Baso % (Auto) 0.3 Neut # (Auto) 8.2 H Lymph # (Auto) 0.3 L Wilson # (Auto) 0.9 H Eos # (Auto) 0.2 Baso # (Auto) 0.0 Neutrophils % (Manual) 79 H Band Neutrophils % 9 H Lymphocytes % (Manual) 2 L Monocytes % (Manual) 10 Platelet Estimate Decreased L Anisocytosis (manual) Slight Target Cells Moderate PT INR Sodium 127 L Potassium 2.9 L Chloride 88 L Carbon Dioxide 22 Anion Gap 20 BUN 6 L Creatinine 0.6 L Est GFR ( Amer) > 60 Est GFR (Non-Af Amer) > 60 POC Glucose (mg/dL) 39 L Random Glucose 47 L Serum Osmolality Calcium 7.0 L Phosphorus 1.5 L Magnesium 1.4 L Iron TIBC % Saturation Ferritin Total Bilirubin 7.7 H AST 543 H ALT 90 H Alkaline Phosphatase 188 H Ammonia Total Protein 7.2 Albumin 2.9 L Globulin 4.3 H Albumin/Globulin Ratio 0.7 L Triglycerides Cholesterol LDL Cholesterol Direct HDL Cholesterol Vitamin B12 Folate Free T4 TSH 3rd Generation Prolactin Cortisol AM Sample Urine Osmolality Ur Random Sodium Urine Opiates Screen Urine Methadone Screen Ur Barbiturates Screen Ur Phencyclidine Scrn Ur Amphetamines Screen U Benzodiazepines Scrn U Oth Cocaine Metabols U Cannabinoids Screen Hepatitis A IgM Ab Hep Bs Antigen Hep B Core IgM Ab Hepatitis C Antibody Blood Type Blood Type Confirm Antibody Screen 02/28/18 02/28/18 07:48 11:26 WBC RBC Hgb Hct MCV MCH MCHC RDW Plt Count MPV Neut % (Auto) Lymph % (Auto) Wilson % (Auto) Eos % (Auto) Baso % (Auto) Neut # (Auto) Lymph # (Auto) Wilson # (Auto) Eos # (Auto) Baso # (Auto) Neutrophils % (Manual) Band Neutrophils % Lymphocytes % (Manual) Monocytes % (Manual) Platelet Estimate Anisocytosis (manual) Target Cells PT INR Sodium Potassium Chloride Carbon Dioxide Anion Gap BUN Creatinine Est GFR ( Amer) Est GFR (Non-Af Amer) POC Glucose (mg/dL) 242 H 73 Random Glucose Serum Osmolality Calcium Phosphorus Magnesium Iron TIBC % Saturation Ferritin Total Bilirubin AST ALT Alkaline Phosphatase Ammonia Total Protein Albumin Globulin Albumin/Globulin Ratio Triglycerides Cholesterol LDL Cholesterol Direct HDL Cholesterol Vitamin B12 Folate Free T4 TSH 3rd Generation Prolactin Cortisol AM Sample Urine Osmolality Ur Random Sodium Urine Opiates Screen Urine Methadone Screen Ur Barbiturates Screen Ur Phencyclidine Scrn Ur Amphetamines Screen U Benzodiazepines Scrn U Oth Cocaine Metabols U Cannabinoids Screen Hepatitis A IgM Ab Hep Bs Antigen Hep B Core IgM Ab Hepatitis C Antibody Blood Type Blood Type Confirm Antibody Screen Fingerstick Blood Sugar Results: 104 Review of Systems - Review of Systems Systems not reviewed;Unavailable: Altered Mental Status Critical Care Progress Note - Nutrition Nutrition: Nutrition Category Date Time Status Dysphagia/Modified Consistency Diet [DIET] Diets 02/28/18 Lunch Active Assessment/Plan - Assessment and Plan (Free Text) Assessment: Patient is a 57-year-old male with a past medical history of multiple visits to the ED for alcohol intoxication who presents to [facility] brought in by ambulance for alcohol intoxication. Of note, the patient is homeless and was found on someone else's property. While in the ED: chest x-ray was obtained and revealed right lower lobe infiltrates. Patient treated empirically CAP. CT head without contrast was obtained 02/27/18 and revealed small subdural hematoma. Patient currently arousable but is not oriented. Patient currently being monitored and treated in ICU. Neuro: - Patient is altered - UDS positive for high levels of alcohol - Ammonia level pending - Start lactulose - Hyponatremia - Hypothermia: warming blankets - Urine Na, urine osm, serum osm, pending - 02/27/18 CT head without contrast: small subdural hematoma (see official report for more detail) - CTA of head and neck ordered - CIWA protocol - Atival PRN - Hypoglycemia protocol - Banana bag started - Neuro checks Q2 CV: - No acute issues - EKG obtained - phototypesetting equipment monitor Pulm: - CXR: left lower lobe infiltrates - Start empiric antibiotics for CAP - Monitor CBC with diff, ABG Renal: - Hyponatremia - Hypophosphatemia; replete as needed - Hypokalemia; replete as needed - Urine Na, urine osm, serum osm, pending - Monitor with CMP, Mg, Phos GI: - 02/27/18 Abd ultrasound obtained - NG tube - NPO except meds - PPx: protonix 40mg IVP daily ID: - Hepatitis panel ordered - Empiric antibiotics for CAP - MRSA screen pending - Blood cultures pending - Urine cultures pending PPx: - GI: Protonix 40mg IVP daily - DVT: SCD contraindicated Patient seen and case discussed with Dr. Jaspal Miller PGY1 <Jarred Shay - Last Filed: 02/28/18 18:39> CCU Objective - Vital Signs / Intake & Output Vital Signs (Last 4 hours): Vital Signs Pulse Resp BP Pulse Ox 02/28/18 18:03 117 H 18 150/86 95 02/28/18 18:00 114 H 26 H 96 02/28/18 17:02 116 H 25 H 146/82 93 L 02/28/18 17:00 119 H 21 93 L 02/28/18 16:02 114 H 27 H 134/72 95 02/28/18 16:00 115 H 26 H 94 L 02/28/18 15:02 116 H 26 H 128/76 95 02/28/18 15:00 116 H 28 H 95 Intake and Output (Last 8hrs): Intake & Output 02/28/18 02/28/18 02/28/18 06:59 14:59 22:59 Intake Total 850 1100 700 Output Total 300 800 200 Balance 550 300 500 Weight 167 lb 15.876 oz Intake: Intake, IV Amount 250 1050 650 Left Hand 250 700 400 Right Antecubital 0 350 250 Oral 50 50 Blood Product 600 Output: Urine 300 800 200 Urine, Voided 300 800 200 Other: # Voids Urine, Voided 1 # Bowel Movements 1 - Medications Active Medications: Active Medications Generic Name Dose Route Start Last Admin Trade Name Freq PRN Reason Stop Dose Admin Dextrose 0 gm 02/28/18 07:44 Glutose 15 PO ONCE PRN Hypoglycemia Protocol Protocol Glucagon 1 mg 02/28/18 07:44 Glucagen Diagnostic Kit IM STAT PRN Hypoglycemia Protocol Protocol Piperacillin Sod/Tazobactam Sod 3.375 gm in 50 mls @ 100 mls/hr 02/27/18 16:00 02/28/18 15:45 Zosyn 3.375 Gm Iv Premix IVPB 100 mls/hr Q6H ASHLEIGH Administration Protocol Vancomycin/Sodium Chloride 1 gm in 200 mls @ 133.333 mls/hr 02/27/18 16:00 02/28/18 15:46 Vancomycin 1 Gm/Ns 200 Ml IVPB 03/04/18 16:01 133.333 mls/hr Q12H ASHLEIGH Administration Protocol Dextrose 1,000 mls @ 0 mls/hr 02/28/18 07:44 Dextrose 5% In Water 1000 Ml IV .Q0M PRN Hypoglycemia Protocol Protocol Per Protocol Influenza Virus Vaccine 60 mcg 03/02/18 10:00 Fluzone Quad [id number] IM 03/02/18 10:01 .ONCE ONE Lactobacillus Acidophilus 1 cap 02/28/18 10:00 02/28/18 09:17 Bacid Acidophilus PO Not Given BID ASHLEIGH Lorazepam 2 mg 02/28/18 17:30 Ativan PO 03/05/18 13:09 Q8H ASHLEIGH Taper Lorazepam 1 mg 02/28/18 17:20 Ativan IVP Q6H PRN Agitation Pantoprazole Sodium 40 mg 02/28/18 10:00 02/28/18 09:17 Protonix Inj IVP 40 mg DAILY ASHLEIGH Administration Pneumococcal Polyvalent Vaccine 0.5 ml 03/02/18 10:00 Pneumovax 23 Vaccine IM 03/02/18 10:01 .ONCE ONE - Patient Studies Lab Studies: Microbiology Studies 02/27/18 13:57 Blood Culture - Preliminary Blood NO GROWTH AFTER 24 HOURS 02/27/18 12:58 Blood Culture - Preliminary Blood NO GROWTH AFTER 24 HOURS Lab Studies 02/28/18 02/28/18 02/28/18 Range/Units 11:26 07:48 07:46 WBC (4.8-10.8) K/uL RBC (4.40-5.90) Mil/uL Hgb (12.0-18.0) g/dL Hct (35.0-51.0) % MCV (80.0-94.0) fL MCH (27.0-31.0) pg MCHC (33.0-37.0) g/dL RDW (11.5-14.5) % Plt Count (130-400) K/uL MPV (7.2-11.7) fL Neut % (Auto) (50.0-75.0) % Lymph % (Auto) (20.0-40.0) % Wilson % (Auto) (0.0-10.0) % Eos % (Auto) (0.0-4.0) % Baso % (Auto) (0.0-2.0) % Neut # (Auto) (1.8-7.0) K/uL Lymph # (Auto) (1.0-4.3) K/uL Wilson # (Auto) (0.0-0.8) K/uL Eos # (Auto) (0.0-0.7) K/uL Baso # (Auto) (0.0-0.2) K/uL Neutrophils % (Manual) (50-75) % Band Neutrophils % (0-2) % Lymphocytes % (Manual) (20-40) % Monocytes % (Manual) (0-10) % Platelet Estimate (NORMAL) Anisocytosis (manual) Target Cells PT (9.7-12.2) SECONDS INR Sodium (132-148) mmol/L Potassium (3.6-5.2) mmol/L Chloride (98-107) mmol/L Carbon Dioxide (22-30) mmol/L Anion Gap (10-20) BUN (9-20) mg/dL Creatinine (0.8-1.5) mg/dL Est GFR ( Amer) Est GFR (Non-Af Amer) POC Glucose (mg/dL) 73 242 H 39 L (65-110) mg/dL Random Glucose (75-110) mg/dL Serum Osmolality (272-300) mosm/kg Calcium (8.6-10.4) mg/dl Phosphorus (2.5-4.5) mg/dL Magnesium (1.6-2.3) mg/dL Iron (49-181) ug/dL TIBC (250-450) ug/dL % Saturation (20-55) Ferritin ng/mL Total Bilirubin (0.2-1.3) mg/dL AST (17-59) U/L ALT (21-72) U/L Alkaline Phosphatase (38-126) U/L Ammonia (9-33) umol/L Total Protein (6.3-8.3) g/dL Albumin (3.5-5.0) g/dL Globulin (2.2-3.9) gm/dL Albumin/Globulin Ratio (1.0-2.1) Triglycerides (0-149) mg/dL Cholesterol (0-199) mg/dL LDL Cholesterol Direct (0-129) mg/dL HDL Cholesterol (30-70) mg/dL Vitamin B12 (239-931) pg/mL Folate ng/mL Free T4 (0.78-2.19) ng/dL TSH 3rd Generation (0.46-4.68) mIU/L Prolactin (3.7-17.9) ng/mL Cortisol AM Sample (4.46-22.7) ug/dL Urine Osmolality (300-1000) mosm/kg Ur Random Sodium mmol/L Urine Opiates Screen (NEGATIVE) Urine Methadone Screen (NEGATIVE) Ur Barbiturates Screen (NEGATIVE) Ur Phencyclidine Scrn (NEGATIVE) Ur Amphetamines Screen (NEGATIVE) U Benzodiazepines Scrn (NEGATIVE) U Oth Cocaine Metabols (NEGATIVE) U Cannabinoids Screen (NEGATIVE) Hepatitis A IgM Ab (NEGATIVE) Hep Bs Antigen (NEGATIVE) Hep B Core IgM Ab (NEGATIVE) Hepatitis C Antibody (NEGATIVE) Blood Type Blood Type Confirm Antibody Screen 02/28/18 02/28/18 02/28/18 Range/Units 07:14 07:14 07:14 WBC 9.7 (4.8-10.8) K/uL RBC 2.51 L (4.40-5.90) Mil/uL Hgb 8.3 L (12.0-18.0) g/dL Hct 23.9 L (35.0-51.0) % MCV 95.1 H (80.0-94.0) fL MCH 33.0 H (27.0-31.0) pg MCHC 34.7 (33.0-37.0) g/dL RDW 17.9 H (11.5-14.5) % Plt Count 86 L (130-400) K/uL MPV 9.1 (7.2-11.7) fL Neut % (Auto) 84.9 H (50.0-75.0) % Lymph % (Auto) 3.1 L (20.0-40.0) % Wilson % (Auto) 9.4 (0.0-10.0) % Eos % (Auto) 2.3 (0.0-4.0) % Baso % (Auto) 0.3 (0.0-2.0) % Neut # (Auto) 8.2 H (1.8-7.0) K/uL Lymph # (Auto) 0.3 L (1.0-4.3) K/uL Wilson # (Auto) 0.9 H (0.0-0.8) K/uL Eos # (Auto) 0.2 (0.0-0.7) K/uL Baso # (Auto) 0.0 (0.0-0.2) K/uL Neutrophils % (Manual) 79 H (50-75) % Band Neutrophils % 9 H (0-2) % Lymphocytes % (Manual) 2 L (20-40) % Monocytes % (Manual) 10 (0-10) % Platelet Estimate Decreased L (NORMAL) Anisocytosis (manual) Slight Target Cells Moderate PT 19.9 H D (9.7-12.2) SECONDS INR 1.8 D Sodium 127 L (132-148) mmol/L Potassium 2.9 L (3.6-5.2) mmol/L Chloride 88 L (98-107) mmol/L Carbon Dioxide 22 (22-30) mmol/L Anion Gap 20 (10-20) BUN 6 L (9-20) mg/dL Creatinine 0.6 L (0.8-1.5) mg/dL Est GFR ( Amer) > 60 Est GFR (Non-Af Amer) > 60 POC Glucose (mg/dL) (65-110) mg/dL Random Glucose 47 L (75-110) mg/dL Serum Osmolality (272-300) mosm/kg Calcium 7.0 L (8.6-10.4) mg/dl Phosphorus 1.5 L (2.5-4.5) mg/dL Magnesium 1.4 L (1.6-2.3) mg/dL Iron (49-181) ug/dL TIBC (250-450) ug/dL % Saturation (20-55) Ferritin ng/mL Total Bilirubin 7.7 H (0.2-1.3) mg/dL AST 543 H (17-59) U/L ALT 90 H (21-72) U/L Alkaline Phosphatase 188 H (38-126) U/L Ammonia (9-33) umol/L Total Protein 7.2 (6.3-8.3) g/dL Albumin 2.9 L (3.5-5.0) g/dL Globulin 4.3 H (2.2-3.9) gm/dL Albumin/Globulin Ratio 0.7 L (1.0-2.1) Triglycerides (0-149) mg/dL Cholesterol (0-199) mg/dL LDL Cholesterol Direct (0-129) mg/dL HDL Cholesterol (30-70) mg/dL Vitamin B12 (239-931) pg/mL Folate ng/mL Free T4 (0.78-2.19) ng/dL TSH 3rd Generation (0.46-4.68) mIU/L Prolactin (3.7-17.9) ng/mL Cortisol AM Sample (4.46-22.7) ug/dL Urine Osmolality (300-1000) mosm/kg Ur Random Sodium mmol/L Urine Opiates Screen (NEGATIVE) Urine Methadone Screen (NEGATIVE) Ur Barbiturates Screen (NEGATIVE) Ur Phencyclidine Scrn (NEGATIVE) Ur Amphetamines Screen (NEGATIVE) U Benzodiazepines Scrn (NEGATIVE) U Oth Cocaine Metabols (NEGATIVE) U Cannabinoids Screen (NEGATIVE) Hepatitis A IgM Ab (NEGATIVE) Hep Bs Antigen (NEGATIVE) Hep B Core IgM Ab (NEGATIVE) Hepatitis C Antibody (NEGATIVE) Blood Type Blood Type Confirm Antibody Screen 02/28/18 02/28/18 02/28/18 Range/Units 06:34 06:34 06:34 WBC (4.8-10.8) K/uL RBC (4.40-5.90) Mil/uL Hgb (12.0-18.0) g/dL Hct (35.0-51.0) % MCV (80.0-94.0) fL MCH (27.0-31.0) pg MCHC (33.0-37.0) g/dL RDW (11.5-14.5) % Plt Count (130-400) K/uL MPV (7.2-11.7) fL Neut % (Auto) (50.0-75.0) % Lymph % (Auto) (20.0-40.0) % Wilson % (Auto) (0.0-10.0) % Eos % (Auto) (0.0-4.0) % Baso % (Auto) (0.0-2.0) % Neut # (Auto) (1.8-7.0) K/uL Lymph # (Auto) (1.0-4.3) K/uL Wilson # (Auto) (0.0-0.8) K/uL Eos # (Auto) (0.0-0.7) K/uL Baso # (Auto) (0.0-0.2) K/uL Neutrophils % (Manual) (50-75) % Band Neutrophils % (0-2) % Lymphocytes % (Manual) (20-40) % Monocytes % (Manual) (0-10) % Platelet Estimate (NORMAL) Anisocytosis (manual) Target Cells PT (9.7-12.2) SECONDS INR Sodium (132-148) mmol/L Potassium (3.6-5.2) mmol/L Chloride (98-107) mmol/L Carbon Dioxide (22-30) mmol/L Anion Gap (10-20) BUN (9-20) mg/dL Creatinine (0.8-1.5) mg/dL Est GFR ( Amer) Est GFR (Non-Af Amer) POC Glucose (mg/dL) (65-110) mg/dL Random Glucose (75-110) mg/dL Serum Osmolality (272-300) mosm/kg Calcium (8.6-10.4) mg/dl Phosphorus (2.5-4.5) mg/dL Magnesium (1.6-2.3) mg/dL Iron (49-181) ug/dL TIBC (250-450) ug/dL % Saturation (20-55) Ferritin ng/mL Total Bilirubin (0.2-1.3) mg/dL AST (17-59) U/L ALT (21-72) U/L Alkaline Phosphatase (38-126) U/L Ammonia (9-33) umol/L Total Protein (6.3-8.3) g/dL Albumin (3.5-5.0) g/dL Globulin (2.2-3.9) gm/dL Albumin/Globulin Ratio (1.0-2.1) Triglycerides 192 H (0-149) mg/dL Cholesterol 94 (0-199) mg/dL LDL Cholesterol Direct 50 (0-129) mg/dL HDL Cholesterol 11 L (30-70) mg/dL Vitamin B12 (239-931) pg/mL Folate ng/mL Free T4 1.05 (0.78-2.19) ng/dL TSH 3rd Generation 1.22 (0.46-4.68) mIU/L Prolactin (3.7-17.9) ng/mL Cortisol AM Sample 44.2 H (4.46-22.7) ug/dL Urine Osmolality (300-1000) mosm/kg Ur Random Sodium mmol/L Urine Opiates Screen (NEGATIVE) Urine Methadone Screen (NEGATIVE) Ur Barbiturates Screen (NEGATIVE) Ur Phencyclidine Scrn (NEGATIVE) Ur Amphetamines Screen (NEGATIVE) U Benzodiazepines Scrn (NEGATIVE) U Oth Cocaine Metabols (NEGATIVE) U Cannabinoids Screen (NEGATIVE) Hepatitis A IgM Ab (NEGATIVE) Hep Bs Antigen (NEGATIVE) Hep B Core IgM Ab (NEGATIVE) Hepatitis C Antibody (NEGATIVE) Blood Type Blood Type Confirm Antibody Screen 02/28/18 02/28/18 02/28/18 Range/Units 06:34 06:34 06:34 WBC (4.8-10.8) K/uL RBC (4.40-5.90) Mil/uL Hgb (12.0-18.0) g/dL Hct (35.0-51.0) % MCV (80.0-94.0) fL MCH (27.0-31.0) pg MCHC (33.0-37.0) g/dL RDW (11.5-14.5) % Plt Count (130-400) K/uL MPV (7.2-11.7) fL Neut % (Auto) (50.0-75.0) % Lymph % (Auto) (20.0-40.0) % Wilson % (Auto) (0.0-10.0) % Eos % (Auto) (0.0-4.0) % Baso % (Auto) (0.0-2.0) % Neut # (Auto) (1.8-7.0) K/uL Lymph # (Auto) (1.0-4.3) K/uL Wilson # (Auto) (0.0-0.8) K/uL Eos # (Auto) (0.0-0.7) K/uL Baso # (Auto) (0.0-0.2) K/uL Neutrophils % (Manual) (50-75) % Band Neutrophils % (0-2) % Lymphocytes % (Manual) (20-40) % Monocytes % (Manual) (0-10) % Platelet Estimate (NORMAL) Anisocytosis (manual) Target Cells PT (9.7-12.2) SECONDS INR Sodium (132-148) mmol/L Potassium (3.6-5.2) mmol/L Chloride (98-107) mmol/L Carbon Dioxide (22-30) mmol/L Anion Gap (10-20) BUN (9-20) mg/dL Creatinine (0.8-1.5) mg/dL Est GFR ( Amer) Est GFR (Non-Af Amer) POC Glucose (mg/dL) (65-110) mg/dL Random Glucose (75-110) mg/dL Serum Osmolality (272-300) mosm/kg Calcium (8.6-10.4) mg/dl Phosphorus (2.5-4.5) mg/dL Magnesium (1.6-2.3) mg/dL Iron 117 (49-181) ug/dL TIBC 212 L 210 L (250-450) ug/dL % Saturation 55 56 H (20-55) Ferritin 689.0 ng/mL Total Bilirubin (0.2-1.3) mg/dL AST (17-59) U/L ALT (21-72) U/L Alkaline Phosphatase (38-126) U/L Ammonia (9-33) umol/L Total Protein (6.3-8.3) g/dL Albumin (3.5-5.0) g/dL Globulin (2.2-3.9) gm/dL Albumin/Globulin Ratio (1.0-2.1) Triglycerides (0-149) mg/dL Cholesterol (0-199) mg/dL LDL Cholesterol Direct (0-129) mg/dL HDL Cholesterol (30-70) mg/dL Vitamin B12 856 (239-931) pg/mL Folate 3.3 ng/mL Free T4 (0.78-2.19) ng/dL TSH 3rd Generation (0.46-4.68) mIU/L Prolactin 21.3 H (3.7-17.9) ng/mL Cortisol AM Sample (4.46-22.7) ug/dL Urine Osmolality (300-1000) mosm/kg Ur Random Sodium mmol/L Urine Opiates Screen (NEGATIVE) Urine Methadone Screen (NEGATIVE) Ur Barbiturates Screen (NEGATIVE) Ur Phencyclidine Scrn (NEGATIVE) Ur Amphetamines Screen (NEGATIVE) U Benzodiazepines Scrn (NEGATIVE) U Oth Cocaine Metabols (NEGATIVE) U Cannabinoids Screen (NEGATIVE) Hepatitis A IgM Ab (NEGATIVE) Hep Bs Antigen (NEGATIVE) Hep B Core IgM Ab (NEGATIVE) Hepatitis C Antibody (NEGATIVE) Blood Type Blood Type Confirm Antibody Screen 02/27/18 02/27/18 02/27/18 Range/Units 23:16 22:37 18:44 WBC (4.8-10.8) K/uL RBC (4.40-5.90) Mil/uL Hgb (12.0-18.0) g/dL Hct (35.0-51.0) % MCV (80.0-94.0) fL MCH (27.0-31.0) pg MCHC (33.0-37.0) g/dL RDW (11.5-14.5) % Plt Count (130-400) K/uL MPV (7.2-11.7) fL Neut % (Auto) (50.0-75.0) % Lymph % (Auto) (20.0-40.0) % Wilson % (Auto) (0.0-10.0) % Eos % (Auto) (0.0-4.0) % Baso % (Auto) (0.0-2.0) % Neut # (Auto) (1.8-7.0) K/uL Lymph # (Auto) (1.0-4.3) K/uL Wilson # (Auto) (0.0-0.8) K/uL Eos # (Auto) (0.0-0.7) K/uL Baso # (Auto) (0.0-0.2) K/uL Neutrophils % (Manual) (50-75) % Band Neutrophils % (0-2) % Lymphocytes % (Manual) (20-40) % Monocytes % (Manual) (0-10) % Platelet Estimate (NORMAL) Anisocytosis (manual) Target Cells PT (9.7-12.2) SECONDS INR Sodium (132-148) mmol/L Potassium (3.6-5.2) mmol/L Chloride (98-107) mmol/L Carbon Dioxide (22-30) mmol/L Anion Gap (10-20) BUN (9-20) mg/dL Creatinine (0.8-1.5) mg/dL Est GFR ( Amer) Est GFR (Non-Af Amer) POC Glucose (mg/dL) (65-110) mg/dL Random Glucose (75-110) mg/dL Serum Osmolality (272-300) mosm/kg Calcium (8.6-10.4) mg/dl Phosphorus (2.5-4.5) mg/dL Magnesium (1.6-2.3) mg/dL Iron (49-181) ug/dL TIBC (250-450) ug/dL % Saturation (20-55) Ferritin ng/mL Total Bilirubin (0.2-1.3) mg/dL AST (17-59) U/L ALT (21-72) U/L Alkaline Phosphatase (38-126) U/L Ammonia (9-33) umol/L Total Protein (6.3-8.3) g/dL Albumin (3.5-5.0) g/dL Globulin (2.2-3.9) gm/dL Albumin/Globulin Ratio (1.0-2.1) Triglycerides (0-149) mg/dL Cholesterol (0-199) mg/dL LDL Cholesterol Direct (0-129) mg/dL HDL Cholesterol (30-70) mg/dL Vitamin B12 (239-931) pg/mL Folate ng/mL Free T4 (0.78-2.19) ng/dL TSH 3rd Generation (0.46-4.68) mIU/L Prolactin (3.7-17.9) ng/mL Cortisol AM Sample (4.46-22.7) ug/dL Urine Osmolality 455 (300-1000) mosm/kg Ur Random Sodium < 5 mmol/L Urine Opiates Screen Negative (NEGATIVE) Urine Methadone Screen Negative (NEGATIVE) Ur Barbiturates Screen Negative (NEGATIVE) Ur Phencyclidine Scrn Negative (NEGATIVE) Ur Amphetamines Screen Negative (NEGATIVE) U Benzodiazepines Scrn Negative (NEGATIVE) U Oth Cocaine Metabols Negative (NEGATIVE) U Cannabinoids Screen Negative (NEGATIVE) Hepatitis A IgM Ab Negative (NEGATIVE) Hep Bs Antigen Negative (NEGATIVE) Hep B Core IgM Ab Negative (NEGATIVE) Hepatitis C Antibody Negative (NEGATIVE) Blood Type B POSITIVE Blood Type Confirm B POSITIVE Antibody Screen Negative 02/27/18 02/27/18 Range/Units 18:44 18:44 WBC (4.8-10.8) K/uL RBC (4.40-5.90) Mil/uL Hgb (12.0-18.0) g/dL Hct (35.0-51.0) % MCV (80.0-94.0) fL MCH (27.0-31.0) pg MCHC (33.0-37.0) g/dL RDW (11.5-14.5) % Plt Count (130-400) K/uL MPV (7.2-11.7) fL Neut % (Auto) (50.0-75.0) % Lymph % (Auto) (20.0-40.0) % Wilson % (Auto) (0.0-10.0) % Eos % (Auto) (0.0-4.0) % Baso % (Auto) (0.0-2.0) % Neut # (Auto) (1.8-7.0) K/uL Lymph # (Auto) (1.0-4.3) K/uL Wilson # (Auto) (0.0-0.8) K/uL Eos # (Auto) (0.0-0.7) K/uL Baso # (Auto) (0.0-0.2) K/uL Neutrophils % (Manual) (50-75) % Band Neutrophils % (0-2) % Lymphocytes % (Manual) (20-40) % Monocytes % (Manual) (0-10) % Platelet Estimate (NORMAL) Anisocytosis (manual) Target Cells PT (9.7-12.2) SECONDS INR Sodium (132-148) mmol/L Potassium (3.6-5.2) mmol/L Chloride (98-107) mmol/L Carbon Dioxide (22-30) mmol/L Anion Gap (10-20) BUN (9-20) mg/dL Creatinine (0.8-1.5) mg/dL Est GFR ( Amer) Est GFR (Non-Af Amer) POC Glucose (mg/dL) (65-110) mg/dL Random Glucose (75-110) mg/dL Serum Osmolality 315 H (272-300) mosm/kg Calcium (8.6-10.4) mg/dl Phosphorus (2.5-4.5) mg/dL Magnesium (1.6-2.3) mg/dL Iron (49-181) ug/dL TIBC (250-450) ug/dL % Saturation (20-55) Ferritin ng/mL Total Bilirubin (0.2-1.3) mg/dL AST (17-59) U/L ALT (21-72) U/L Alkaline Phosphatase (38-126) U/L Ammonia 9 (9-33) umol/L Total Protein (6.3-8.3) g/dL Albumin (3.5-5.0) g/dL Globulin (2.2-3.9) gm/dL Albumin/Globulin Ratio (1.0-2.1) Triglycerides (0-149) mg/dL Cholesterol (0-199) mg/dL LDL Cholesterol Direct (0-129) mg/dL HDL Cholesterol (30-70) mg/dL Vitamin B12 (239-931) pg/mL Folate ng/mL Free T4 (0.78-2.19) ng/dL TSH 3rd Generation (0.46-4.68) mIU/L Prolactin (3.7-17.9) ng/mL Cortisol AM Sample (4.46-22.7) ug/dL Urine Osmolality (300-1000) mosm/kg Ur Random Sodium mmol/L Urine Opiates Screen (NEGATIVE) Urine Methadone Screen (NEGATIVE) Ur Barbiturates Screen (NEGATIVE) Ur Phencyclidine Scrn (NEGATIVE) Ur Amphetamines Screen (NEGATIVE) U Benzodiazepines Scrn (NEGATIVE) U Oth Cocaine Metabols (NEGATIVE) U Cannabinoids Screen (NEGATIVE) Hepatitis A IgM Ab (NEGATIVE) Hep Bs Antigen (NEGATIVE) Hep B Core IgM Ab (NEGATIVE) Hepatitis C Antibody (NEGATIVE) Blood Type Blood Type Confirm Antibody Screen Laboratory Results - last 24 hr 02/27/18 02/27/18 02/27/18 18:44 18:44 18:44 WBC RBC Hgb Hct MCV MCH MCHC RDW Plt Count MPV Neut % (Auto) Lymph % (Auto) Wilson % (Auto) Eos % (Auto) Baso % (Auto) Neut # (Auto) Lymph # (Auto) Wilson # (Auto) Eos # (Auto) Baso # (Auto) Neutrophils % (Manual) Band Neutrophils % Lymphocytes % (Manual) Monocytes % (Manual) Platelet Estimate Anisocytosis (manual) Target Cells PT INR Sodium Potassium Chloride Carbon Dioxide Anion Gap BUN Creatinine Est GFR ( Amer) Est GFR (Non-Af Amer) POC Glucose (mg/dL) Random Glucose Serum Osmolality 315 H Calcium Phosphorus Magnesium Iron TIBC % Saturation Ferritin Total Bilirubin AST ALT Alkaline Phosphatase Ammonia 9 Total Protein Albumin Globulin Albumin/Globulin Ratio Triglycerides Cholesterol LDL Cholesterol Direct HDL Cholesterol Vitamin B12 Folate Free T4 TSH 3rd Generation Prolactin Cortisol AM Sample Urine Osmolality Ur Random Sodium Urine Opiates Screen Urine Methadone Screen Ur Barbiturates Screen Ur Phencyclidine Scrn Ur Amphetamines Screen U Benzodiazepines Scrn U Oth Cocaine Metabols U Cannabinoids Screen Hepatitis A IgM Ab Negative Hep Bs Antigen Negative Hep B Core IgM Ab Negative Hepatitis C Antibody Negative Blood Type Blood Type Confirm Antibody Screen 02/27/18 02/27/18 02/28/18 22:37 23:16 06:34 WBC RBC Hgb Hct MCV MCH MCHC RDW Plt Count MPV Neut % (Auto) Lymph % (Auto) Wilson % (Auto) Eos % (Auto) Baso % (Auto) Neut # (Auto) Lymph # (Auto) Wilson # (Auto) Eos # (Auto) Baso # (Auto) Neutrophils % (Manual) Band Neutrophils % Lymphocytes % (Manual) Monocytes % (Manual) Platelet Estimate Anisocytosis (manual) Target Cells PT INR Sodium Potassium Chloride Carbon Dioxide Anion Gap BUN Creatinine Est GFR ( Amer) Est GFR (Non-Af Amer) POC Glucose (mg/dL) Random Glucose Serum Osmolality Calcium Phosphorus Magnesium Iron TIBC 210 L % Saturation 56 H Ferritin Total Bilirubin AST ALT Alkaline Phosphatase Ammonia Total Protein Albumin Globulin Albumin/Globulin Ratio Triglycerides Cholesterol LDL Cholesterol Direct HDL Cholesterol Vitamin B12 Folate Free T4 TSH 3rd Generation Prolactin Cortisol AM Sample Urine Osmolality 455 Ur Random Sodium < 5 Urine Opiates Screen Negative Urine Methadone Screen Negative Ur Barbiturates Screen Negative Ur Phencyclidine Scrn Negative Ur Amphetamines Screen Negative U Benzodiazepines Scrn Negative U Oth Cocaine Metabols Negative U Cannabinoids Screen Negative Hepatitis A IgM Ab Hep Bs Antigen Hep B Core IgM Ab Hepatitis C Antibody Blood Type B POSITIVE Blood Type Confirm B POSITIVE Antibody Screen Negative 02/28/18 02/28/18 02/28/18 06:34 06:34 06:34 WBC RBC Hgb Hct MCV MCH MCHC RDW Plt Count MPV Neut % (Auto) Lymph % (Auto) Wilson % (Auto) Eos % (Auto) Baso % (Auto) Neut # (Auto) Lymph # (Auto) Wilson # (Auto) Eos # (Auto) Baso # (Auto) Neutrophils % (Manual) Band Neutrophils % Lymphocytes % (Manual) Monocytes % (Manual) Platelet Estimate Anisocytosis (manual) Target Cells PT INR Sodium Potassium Chloride Carbon Dioxide Anion Gap BUN Creatinine Est GFR ( Amer) Est GFR (Non-Af Amer) POC Glucose (mg/dL) Random Glucose Serum Osmolality Calcium Phosphorus Magnesium Iron 117 TIBC 212 L % Saturation 55 Ferritin 689.0 Total Bilirubin AST ALT Alkaline Phosphatase Ammonia Total Protein Albumin Globulin Albumin/Globulin Ratio Triglycerides Cholesterol LDL Cholesterol Direct HDL Cholesterol Vitamin B12 856 Folate 3.3 Free T4 TSH 3rd Generation Prolactin 21.3 H Cortisol AM Sample 44.2 H Urine Osmolality Ur Random Sodium Urine Opiates Screen Urine Methadone Screen Ur Barbiturates Screen Ur Phencyclidine Scrn Ur Amphetamines Screen U Benzodiazepines Scrn U Oth Cocaine Metabols U Cannabinoids Screen Hepatitis A IgM Ab Hep Bs Antigen Hep B Core IgM Ab Hepatitis C Antibody Blood Type Blood Type Confirm Antibody Screen 02/28/18 02/28/18 02/28/18 06:34 06:34 07:14 WBC RBC Hgb Hct MCV MCH MCHC RDW Plt Count MPV Neut % (Auto) Lymph % (Auto) Wilson % (Auto) Eos % (Auto) Baso % (Auto) Neut # (Auto) Lymph # (Auto) Wilson # (Auto) Eos # (Auto) Baso # (Auto) Neutrophils % (Manual) Band Neutrophils % Lymphocytes % (Manual) Monocytes % (Manual) Platelet Estimate Anisocytosis (manual) Target Cells PT 19.9 H D INR 1.8 D Sodium Potassium Chloride Carbon Dioxide Anion Gap BUN Creatinine Est GFR ( Amer) Est GFR (Non-Af Amer) POC Glucose (mg/dL) Random Glucose Serum Osmolality Calcium Phosphorus Magnesium Iron TIBC % Saturation Ferritin Total Bilirubin AST ALT Alkaline Phosphatase Ammonia Total Protein Albumin Globulin Albumin/Globulin Ratio Triglycerides 192 H Cholesterol 94 LDL Cholesterol Direct 50 HDL Cholesterol 11 L Vitamin B12 Folate Free T4 1.05 TSH 3rd Generation 1.22 Prolactin Cortisol AM Sample Urine Osmolality Ur Random Sodium Urine Opiates Screen Urine Methadone Screen Ur Barbiturates Screen Ur Phencyclidine Scrn Ur Amphetamines Screen U Benzodiazepines Scrn U Oth Cocaine Metabols U Cannabinoids Screen Hepatitis A IgM Ab Hep Bs Antigen Hep B Core IgM Ab Hepatitis C Antibody Blood Type Blood Type Confirm Antibody Screen 02/28/18 02/28/18 02/28/18 07:14 07:14 07:46 WBC 9.7 RBC 2.51 L Hgb 8.3 L Hct 23.9 L MCV 95.1 H MCH 33.0 H MCHC 34.7 RDW 17.9 H Plt Count 86 L MPV 9.1 Neut % (Auto) 84.9 H Lymph % (Auto) 3.1 L Wilson % (Auto) 9.4 Eos % (Auto) 2.3 Baso % (Auto) 0.3 Neut # (Auto) 8.2 H Lymph # (Auto) 0.3 L Wilson # (Auto) 0.9 H Eos # (Auto) 0.2 Baso # (Auto) 0.0 Neutrophils % (Manual) 79 H Band Neutrophils % 9 H Lymphocytes % (Manual) 2 L Monocytes % (Manual) 10 Platelet Estimate Decreased L Anisocytosis (manual) Slight Target Cells Moderate PT INR Sodium 127 L Potassium 2.9 L Chloride 88 L Carbon Dioxide 22 Anion Gap 20 BUN 6 L Creatinine 0.6 L Est GFR ( Amer) > 60 Est GFR (Non-Af Amer) > 60 POC Glucose (mg/dL) 39 L Random Glucose 47 L Serum Osmolality Calcium 7.0 L Phosphorus 1.5 L Magnesium 1.4 L Iron TIBC % Saturation Ferritin Total Bilirubin 7.7 H AST 543 H ALT 90 H Alkaline Phosphatase 188 H Ammonia Total Protein 7.2 Albumin 2.9 L Globulin 4.3 H Albumin/Globulin Ratio 0.7 L Triglycerides Cholesterol LDL Cholesterol Direct HDL Cholesterol Vitamin B12 Folate Free T4 TSH 3rd Generation Prolactin Cortisol AM Sample Urine Osmolality Ur Random Sodium Urine Opiates Screen Urine Methadone Screen Ur Barbiturates Screen Ur Phencyclidine Scrn Ur Amphetamines Screen U Benzodiazepines Scrn U Oth Cocaine Metabols U Cannabinoids Screen Hepatitis A IgM Ab Hep Bs Antigen Hep B Core IgM Ab Hepatitis C Antibody Blood Type Blood Type Confirm Antibody Screen 02/28/18 02/28/18 07:48 11:26 WBC RBC Hgb Hct MCV MCH MCHC RDW Plt Count MPV Neut % (Auto) Lymph % (Auto) Wilson % (Auto) Eos % (Auto) Baso % (Auto) Neut # (Auto) Lymph # (Auto) Wilson # (Auto) Eos # (Auto) Baso # (Auto) Neutrophils % (Manual) Band Neutrophils % Lymphocytes % (Manual) Monocytes % (Manual) Platelet Estimate Anisocytosis (manual) Target Cells PT INR Sodium Potassium Chloride Carbon Dioxide Anion Gap BUN Creatinine Est GFR ( Amer) Est GFR (Non-Af Amer) POC Glucose (mg/dL) 242 H 73 Random Glucose Serum Osmolality Calcium Phosphorus Magnesium Iron TIBC % Saturation Ferritin Total Bilirubin AST ALT Alkaline Phosphatase Ammonia Total Protein Albumin Globulin Albumin/Globulin Ratio Triglycerides Cholesterol LDL Cholesterol Direct HDL Cholesterol Vitamin B12 Folate Free T4 TSH 3rd Generation Prolactin Cortisol AM Sample Urine Osmolality Ur Random Sodium Urine Opiates Screen Urine Methadone Screen Ur Barbiturates Screen Ur Phencyclidine Scrn Ur Amphetamines Screen U Benzodiazepines Scrn U Oth Cocaine Metabols U Cannabinoids Screen Hepatitis A IgM Ab Hep Bs Antigen Hep B Core IgM Ab Hepatitis C Antibody Blood Type Blood Type Confirm Antibody Screen Critical Care Progress Note - Nutrition Nutrition: Nutrition Category Date Time Status Dysphagia/Modified Consistency Diet [DIET] Diets 02/28/18 Lunch Active Attending/Attestation - Attestation I have personally seen and examined this patient.: Yes I have fully participated in the care of the patient.: Yes I have reviewed all pertinent clinical information: Yes Notes (Text): 02/28/18 18:39 I have seen and examined the patient. Medical records, lab studies, and imaging were reviewed by me and a management plan was formulated on multidisciplinary rounds with resident Dr. Miller. I agree with their documented assessment and plan. Continue CIWA protocol, patient is currently doing well, stable for downgrade to the floors. Critical Care Time 35 minutes. Multi-disciplinary rounds were performed with house staff, nursing, speech therapy, respiratory therapy, pharmacy and nutrition with integrated input from the primary team/attending and other consulting services. The documented time is cumulative and includes review of patient data/exams/labs/chart review and examination of the patient on rounds and throughout the day; time is exclusive of any procedures or teaching time.
--- NOTE | 2018-02-28 17:52 | CT ---
Date of service: 02/28/2018 PROCEDURE: CT HEAD WITHOUT CONTRAST. HISTORY: Change in mental status; monitor subdural hematoma COMPARISON: Comparison made with prior CT scan brain obtained earlier same day. TECHNIQUE: Axial computed tomography images were obtained through the head/brain without intravenous contrast. Radiation dose: Total exam DLP = 1104.04 mGy-cm. This CT exam was performed using one or more of the following dose reduction techniques: Automated exposure control, adjustment of the mA and/or kV according to patient size, and/or use of iterative reconstruction technique. FINDINGS: HEMORRHAGE: Re demonstrated is a small left-sided subdural hematoma which has undergone evolution and appears less dense. Small but slightly larger right-sided subdural hygroma again noted which may have increased in size very slightly.. The collections exert mild bilateral mass-effect right slightly larger than left with compressive effects on the cerebral gyri and sulci as well as lateral ventricles right slightly more so than left. No significant midline shift. BRAIN: No mass effect or edema. No atrophy or chronic microvascular ischemic changes. VENTRICLES: No obstructive hydrocephalus. CALVARIUM: Unremarkable. PARANASAL SINUSES: Unremarkable as mild mucosal thickening both maxillary antra. There also moderate mucosal thickening in the ethmoid air complex extending superiorly into the frontal sinus. MASTOID AIR CELLS: Unremarkable as visualized. No inflammatory changes. OTHER FINDINGS: None. IMPRESSION: Re demonstrated is a small left-sided subdural hematoma which has undergone evolution and appears less dense. Small but slightly larger right-sided subdural hygroma again noted which may have increased in size very slightly.. The collections exert mild bilateral mass-effect right slightly larger than left with compressive effects on the cerebral gyri and sulci as well as lateral ventricles right slightly more so than left. No significant midline shift.. The collections exert persistent mild mass effect with compression of cerebral sulci and of bilateral ventricles right slightly greater than left. No significant midline shift. No new hemorrhages or hydrocephalus.
--- NOTE | 2018-02-28 18:37 | CT ---
Date of service: 02/28/2018 CT chest without IV contrast Indication: RLL infiltrate. difficulty maintain O2 saturation. Technique: Contiguous axial images were obtained through the chest without intravenous contrast enhancement. Sagittal and coronal reconstructions were generated and reviewed. This CT exam was performed using 1 or more of the following dose reduction techniques: Automated exposure control, adjustment of the MAA and/or kV according to patient size, and/or use of iterative reconstruction technique. Radiation dose (DLP): 526.81 MGy-cm. Comparison: Chest x-ray performed 02/27/18 Findings: Visualized portions of the inferior thyroid gland appear unremarkable. The unenhanced mediastinal and hilar vascular structures appear grossly unremarkable. Heart size appears top normal. Mild atherosclerotic calcification of the aorta present. Large right and moderate left pleural effusions and associated consolidations. Lingular infiltrates. Probable bulla in the right upper lobe however small loculated pneumothorax is not excluded. Limited visualization of the noncontrast upper abdomen: Severe diffuse hepatic steatosis. Heterogeneous appearance of the hepatic parenchyma. Nodular hepatic contour. Partially imaged hepatomegaly. Question hepatic mass versus more focal fatty infiltration involving a large region of the medial upper liver (approximately 7.1 x 7.9 cm on coronal image 45). Small perihepatic and perisplenic ascites. Bilateral gynecomastia. No acute osseous abnormality is detected. Impression: Large right and moderate left pleural effusions and associated consolidations. Lingular infiltrates. Probable bulla in the right upper lobe however small loculated pneumothorax is not excluded. Limited visualization of the noncontrast upper abdomen: Severe diffuse hepatic steatosis. Heterogeneous appearance of the hepatic parenchyma. Nodular hepatic contour. Partially imaged hepatomegaly. Question hepatic mass versus more focal fatty infiltration involving a large region of the medial upper liver. Small perihepatic and perisplenic ascites.
[2018-03-01] MEDS: Piperacill/Tazo 3.375gm in Dex 3.375 GM/50 ML BAG IVPB SCH ×4 (04:00→21:41)
[2018-03-01] MEDS: Vancomycin 1 gm/NS 200 ml 1 GM/200 ML BAG IVPB SCH ×2 (04:56→16:24)
[2018-03-01 05:39] LABS: BASO # 0.1 K/uL (0.0-0.2); BASO % 0.8 % (0.0-2.0); EOS % 0.5 % (0.0-4.0); LYMPH # 0.9 K/uL (1.0-4.3); LYMPH % 9.1 % (20.0-40.0); MEAN CELL VOLUME 94.7 fL (80.0-94.0); MEAN CORPUSCULAR HEMOGLOBIN 33.1 pg (27.0-31.0); MEAN PLATELET VOLUME 9.1 fL (7.2-11.7); MONO # 1.1 K/uL (0.0-0.8); MONO % 11.4 % (0.0-10.0); NEUT # 7.4 K/uL (1.8-7.0); NEUT % 78.2 % (50.0-75.0); NRBC % 0.2 % (0.0-2.0); PLATELET COUNT 72 K/uL (130-400); RBC 2.42 Mil/uL (4.40-5.90); RED CELL DISTRIBUTION WIDTH 18.2 % (11.5-14.5); WHITE BLOOD COUNT 9.5 K/uL (4.8-10.8)
--- NOTE | 2018-03-01 06:25 | CON ---
DATE: 02/28/2018 HISTORY OF PRESENT ILLNESS: This is a 57-year-old individual, brought to the hospital with difficulty walking. CT scan documented very small left acute subdural hematoma with a relatively small right subdural hygroma. The patient was admitted to the ICU, apparently he also has been diagnosed with other things, on antibiotics etc. His past medical history, medications, allergies, social history, etc. were reviewed. PHYSICAL EXAMINATION: GENERAL: The patient is bright, awake, and alert. He is oriented to name, that he is in [place]. He follows all commands. HEENT: Pupils are equal and reactive. EOMS are full. Face is symmetric. EXTREMITIES: He moves all 4 extremities with good strength. CT of the brain done last night and repeated today showed again a very small acute subdural hematoma in the left posterior frontal temporal region with very minimal mass effect. On the right side, there was a hygroma and also without much in the way of mass effect, there is a fair amount of atrophy. IMPRESSION AND PLAN: I do not believe these hematomas are symptomatic at this time, and he certainly do not warrant surgical extirpation. My recommendation would be to repeat the CT scan in 7 to 10 days. Gus Coleman MD
[2018-03-01 06:40] LABS: ALB/GLOB RATIO 0.6 (1.0-2.1); ALBUMIN 2.4 g/dL (3.5-5.0); ALT/SGPT 78 U/L (21-72); AST/SGOT 425 U/L (17-59); BLOOD UREA NITROGEN 8 mg/dL (9-20); CALCIUM 6.7 mg/dl (8.6-10.4); GFR NON-AFRICAN AMERICAN > 60
[2018-03-01 08:24] LABS: BANDS 6 % (0-2); EOSINOPHIL 1 % (0-4); LYMPHOCYTE 8 % (20-40); MONOCYTE 8 % (0-10); NEUTROPHIL 77 % (50-75); TOTAL CELLS COUNTED 100
[2018-03-01 08:25] LABS: ANISOCYTOSIS SLIGHT; HYPOCHROMIC SLIGHT; OVALOCYTES MODERATE; PLATELET ESTIMATE DECREASED (NORMAL); POIKILOCYTOSIS SLIGHT
[2018-03-01] MEDS: Lactobacillus Acidophilus 500 MU Cap PO SCH ×2 (10:07→17:41)
--- NOTE | 2018-03-01 10:31 | CP.PCM.PN ---
<Clara Siddiqui - Last Filed: 03/01/18 14:52> Subjective - Date & Time of Evaluation Date of Evaluation: 03/01/18 Time of Evaluation: 09:00 - Subjective Subjective: Neurology Follow Up Note Patient was seen and examined at bedside. Patient seems more alert, oriented, not to place still. Denied any headaches, chest pain, abdominal pain. Objective - Vital Signs/Intake and Output Vital Signs (last 24 hours): Temp Pulse Resp BP Pulse Ox 97.7 F 115 H 17 144/75 94 L 02/28/18 20:00 03/01/18 06:02 03/01/18 06:02 03/01/18 06:02 03/01/18 06:02 Intake and Output: 03/01/18 03/01/18 06:59 18:59 Intake Total 2280 Output Total 800 Balance 1480 - Medications Medications: Current Medications Dextrose (Glutose 15) 0 gm PO ONCE PRN; Protocol PRN Reason: Hypoglycemia Protocol Glucagon (Glucagen Diagnostic Kit) 1 mg IM STAT PRN; Protocol PRN Reason: Hypoglycemia Protocol Piperacillin Sod/Tazobactam Sod (Zosyn 3.375 Gm Iv Premix) 3.375 gm in 50 mls @ 100 mls/hr IVPB Q6H A[facility]; Protocol Last Admin: 03/01/18 10:07 Dose: 100 mls/hr Vancomycin/Sodium Chloride (Vancomycin 1 Gm/Ns 200 Ml) 1 gm in 200 mls @ 133.333 mls/hr IVPB Q12H A[facility]; Protocol Stop: 03/04/18 16:01 Last Admin: 03/01/18 04:56 Dose: 133.333 mls/hr Dextrose (Dextrose 5% In Water 1000 Ml) 1,000 mls @ 0 mls/hr IV .Q0M PRN; Protocol PRN Reason: Hypoglycemia Protocol Potassium Chloride (Potassium Chloride 20 Meq/100 Ml) 20 meq in 100 mls @ 50 mls/hr IVPB ONCE ONE Stop: 03/01/18 11:00 Last Admin: 03/01/18 10:07 Dose: 50 mls/hr Magnesium Sulfate/Dextrose (Magnesium Sulfate 1 Gm/100 Ml D5w) 1 gm in 100 mls @ 300 mls/hr IVPB Q30M A[facility]IGH Stop: 03/01/18 11:19 Potassium Chloride (Potassium Chloride 20 Meq/100 Ml) 20 meq in 100 mls @ 50 mls/hr IVPB ONCE ONE Stop: 03/01/18 12:18 Influenza Virus Vaccine (Fluzone Quad [id number]) 60 mcg IM .ONCE ONE Stop: 03/02/18 10:01 Lactobacillus Acidophilus (Bacid Acidophilus) 1 cap PO BID ASHLEIGH Last Admin: 03/01/18 10:07 Dose: Not Given Lorazepam (Ativan) 2 mg PO Q8H ASHLEIGH; Taper Stop: 03/05/18 13:09 Last Admin: 03/01/18 06:13 Dose: 2 mg Lorazepam (Ativan) 1 mg IVP Q6H PRN PRN Reason: Agitation Last Admin: 02/28/18 22:09 Dose: 1 mg Pantoprazole Sodium (Protonix Inj) 40 mg IVP DAILY A[facility]LEIGH Last Admin: 03/01/18 10:07 Dose: 40 mg Pneumococcal Polyvalent Vaccine (Pneumovax 23 Vaccine) 0.5 ml IM .ONCE ONE Stop: 03/02/18 10:01 - Labs Labs: 03/01/18 05:06 03/01/18 05:45 PT 19.9 SECONDS (9.7-12.2) H D 02/28/18 07:14 INR 1.8 D 02/28/18 07:14 APTT 40 SECONDS (21-34) H 02/27/18 12:58 - Additional Findings Additional findings: - Constitutional Appears: No Acute Distress, Unkempt, Older Than Stated Age - Head Exam Head Exam: NORMAL INSPECTION, NORMOCEPHALIC - Eye Exam Eye Exam: PERRL, Scleral icterus. absent: Nystagmus - ENT Exam ENT Exam: Mucous Membranes Dry - Respiratory Exam Respiratory Exam: Decreased Breath Sounds - Cardiovascular Exam Cardiovascular Exam: +S1, +S2 - GI/Abdominal Exam GI & Abdominal Exam: Normal Bowel Sounds, Soft. absent: Distended, Tenderness - Rectal Exam Rectal Exam: Deferred - Extremities Exam Extremities exam: Positive for: normal inspection, pedal edema, tenderness, pedal pulses present - Neurological Exam Neurological exam: Alert, Altered, CN II-XII Intact, Reflexes Normal Additional comments: patient not cooperative with most of neuro exam - Expanded Neurological Exam Expanded Speech: Garbled Speech Neuro motor strength exam: Left Upper Extremity: 5, Left Lower Extremity: 5 DTR: Patellar Left: 2+, Patellar Right: 2+ - Psychiatric Exam Psychiatric exam: Normal Affect, Normal Mood - Skin Skin Exam: Dry, Intact, Normal Color, Warm Assessment and Plan - Assessment and Plan (Free Text) Plan: Left Subdural Hematoma Imaging: - Head CT without contrast (02/27): There is a thin left-sided acute subdural hematoma with larger right-sided subdural hygroma on the lateral which exerts mild mass effect compression of the right cerebral hemisphere and right lateral ventricle. No significant midline shift. - Head CT (02/28): Re demonstrated is a small left-sided subdural hematoma which has undergone evolution and appears less dense. Small but slightly larger right- sided subdural hygroma again noted which may have increased in size very slightly.. The collections exert mild bilateral mass-effect right slightly larger than left with compressive effects on the cerebral gyri and sulci as well as lateral ventricles right slightly more so than left. No significant midline shift. The collections exert persistent mild mass effect with compression of cerebral sulci and of bilateral ventricles right slightly greater than left. No significant midline shift. No new hemorrhages or hydrocephalus. Management: - Refrain from any anticoagulation - Maintain head of bed elevated at 30-45 degrees - Aspiration, CIWA Protocol, Seizure Precautions - Repeat Head CT if any changes in mental status - PT/ OT Case discussed with Clara Abbasi DO, PGY2 <Danilo Loving - Last Filed: 03/01/18 17:10> Objective - Vital Signs/Intake and Output Vital Signs (last 24 hours): Temp Pulse Resp BP Pulse Ox 97.7 F 107 H 28 H 130/77 95 02/28/18 20:00 03/01/18 17:03 03/01/18 17:03 03/01/18 17:03 03/01/18 17:03 Intake and Output: 03/01/18 03/01/18 06:59 18:59 Intake Total 2280 1300 Output Total 800 Balance 1480 1300 - Medications Medications: Current Medications Dextrose (Glutose 15) 0 gm PO ONCE PRN; Protocol PRN Reason: Hypoglycemia Protocol Glucagon (Glucagen Diagnostic Kit) 1 mg IM STAT PRN; Protocol PRN Reason: Hypoglycemia Protocol Piperacillin Sod/Tazobactam Sod (Zosyn 3.375 Gm Iv Premix) 3.375 gm in 50 mls @ 100 mls/hr IVPB Q6H [facility]; Protocol Last Admin: 03/01/18 16:24 Dose: 100 mls/hr Vancomycin/Sodium Chloride (Vancomycin 1 Gm/Ns 200 Ml) 1 gm in 200 mls @ 133.333 mls/hr IVPB Q12H [facility]; Protocol Stop: 03/04/18 16:01 Last Admin: 03/01/18 16:24 Dose: 133.333 mls/hr Dextrose (Dextrose 5% In Water 1000 Ml) 1,000 mls @ 0 mls/hr IV .Q0M PRN; Protocol PRN Reason: Hypoglycemia Protocol Dexmedetomidine HCl 200 mcg/ (Sodium Chloride) 50 mls @ 3.79 mls/hr IV TITR PRN; Protocol PRN Reason: Agitation Influenza Virus Vaccine (Fluzone Quad [id number]) 60 mcg IM .ONCE ONE Stop: 03/02/18 10:01 Lactobacillus Acidophilus (Bacid Acidophilus) 1 cap PO BID ASHLEIGH Last Admin: 03/01/18 10:07 Dose: Not Given Lorazepam (Ativan) 1 mg PO Q6H ASHLEIGH; Taper Stop: 03/05/18 13:09 Last Admin: 03/01/18 13:18 Dose: 1 mg Lorazepam (Ativan) 1 mg IVP Q6H PRN PRN Reason: Agitation Last Admin: 02/28/18 22:09 Dose: 1 mg Pantoprazole Sodium (Protonix Inj) 40 mg IVP DAILY A[facility]LEIGH Last Admin: 03/01/18 10:07 Dose: 40 mg Pneumococcal Polyvalent Vaccine (Pneumovax 23 Vaccine) 0.5 ml IM .ONCE ONE Stop: 03/02/18 10:01 - Labs Labs: 03/01/18 05:06 03/01/18 05:45 PT 19.9 SECONDS (9.7-12.2) H D 02/28/18 07:14 INR 1.8 D 02/28/18 07:14 APTT 40 SECONDS (21-34) H 02/27/18 12:58 Attending/Attestation - Attestation I have personally seen and examined this patient.: Yes I have fully participated in the care of the patient.: Yes I have reviewed all pertinent clinical information, including history, physical exam and plan: Yes Notes (Text): 03/01/18 17:10 I agree with the assessment and plan. The patient has altered mental status, likely due to SDH and pneumonia. Repeat CT head is stable.
[2018-03-01] MEDS: Magnesium Sulfate 1 gm in D5W 1 GM/100 ML BAG IVPB SCH ×2 (10:55→11:35)
[2018-03-01] MEDS ORDERED: Potassium Phosphate 20 MMOLE in Sodium Chloride 0.9% 250 ML IV ONE (11:57)
[2018-03-01] MEDS ORDERED: Potassium & Sodium Phosphate PO STA (11:57)
[2018-03-01] MEDS: Dexmedetomidine Hydrochloride 200 MCG in Sodium Chloride 0.9% 48 ML IV PRN ×2 (17:40→20:48)
--- NOTE | 2018-03-01 18:06 | CP.CCUPN ---
<Bobo Miller - Last Filed: 03/01/18 18:02> CCU Subjective - Physician Review Events Since Last Encounter (Free Text): 03/01/18 18:06 No acute events overnight Subjective (Free Text): 03/01/18 18:04 PGY1 Critical Care Consult Note for Dr. Shields Patient seen and evaluated at bedside this morning. Patient arousable. Patient is not oriented to name only. 12 point ROS could not be obtained due to clinical condition. Patient on CIWA protocol. Patient was found to have small subdural hematomy on CT head without contrast 02/27/18. Patient currently in withdrawals and is on CIWA protocol with Ativan ordered. Critical Care Time Spent (in minutes): 35 CCU Objective - Vital Signs / Intake & Output Vital Signs (Last 4 hours): Vital Signs Pulse Resp BP Pulse Ox 03/01/18 17:03 107 H 28 H 130/77 95 03/01/18 17:00 107 H 22 95 03/01/18 16:03 105 H 42 H 138/78 96 03/01/18 16:00 105 H 32 H 97 03/01/18 15:03 106 H 20 127/87 93 L 03/01/18 15:00 107 H 39 H 95 03/01/18 14:03 107 H 14 136/78 92 L Intake and Output (Last 8hrs): Intake & Output 03/01/18 03/01/18 03/01/18 06:59 14:59 22:59 Intake Total 1200 750 550 Output Total 450 Balance 750 750 550 Weight 167 lb 2 oz Intake: Intake, IV Amount 900 750 550 Left Hand 800 550 350 Left Wrist 100 Right Wrist 200 200 Oral 300 Output: Urine 450 Urine, Voided 450 - Physical Exam Head: Positive for: Atraumatic, Normocephalic Pupils: Positive for: PERRL Extroacular Muscles: Positive for: EOMI Conjunctiva: Positive for: Normal, Icteric (bilaterally ) Mouth: Positive for: Moist Mucous Membranes Neck: Positive for: Normal Range of Motion Respiratory/Chest: Positive for: Clear to Auscultation. Negative for: Respiratory Distress, Accessory Muscle Use Cardiovascular: Positive for: Regular Rate and Rhythm, Normal S1, S2. Negative for: Murmurs Abdomen: Positive for: Normal Bowel Sounds. Negative for: Tenderness, Distention Back: Positive for: Normal Inspection Lower Extremity: Positive for: Edema (bilaterally ), Neurovascularly Intact, Capillary Refill < 2 s. Negative for: Tenderness Neurological: Positive for: Other (Patient is sedated and not verbally responsive at this time) Skin: Positive for: Warm, Dry Psychiatric: Positive for: Alert - Medications Active Medications: Active Medications Generic Name Dose Route Start Last Admin Trade Name Freq PRN Reason Stop Dose Admin Dextrose 0 gm 02/28/18 07:44 Glutose 15 PO ONCE PRN Hypoglycemia Protocol Protocol Glucagon 1 mg 02/28/18 07:44 Glucagen Diagnostic Kit IM STAT PRN Hypoglycemia Protocol Protocol Piperacillin Sod/Tazobactam Sod 3.375 gm in 50 mls @ 100 mls/hr 02/27/18 16:00 03/01/18 16:24 Zosyn 3.375 Gm Iv Premix IVPB 100 mls/hr Q6H ASHLEIGH Administration Protocol Vancomycin/Sodium Chloride 1 gm in 200 mls @ 133.333 mls/hr 02/27/18 16:00 03/01/18 16:24 Vancomycin 1 Gm/Ns 200 Ml IVPB 03/04/18 16:01 133.333 mls/hr Q12H ASHLEIGH Administration Protocol Dextrose 1,000 mls @ 0 mls/hr 02/28/18 07:44 Dextrose 5% In Water 1000 Ml IV .Q0M PRN Hypoglycemia Protocol Protocol Per Protocol Dexmedetomidine HCl 200 mcg/ 50 mls @ 3.79 mls/hr 03/01/18 16:36 03/01/18 17:40 Sodium Chloride IV 1 mcg/kg/hr TITR PRN 18.95 mls/hr Agitation Administration Protocol 0.2 MCG/KG/HR Influenza Virus Vaccine 60 mcg 03/02/18 10:00 Fluzone Quad [id number] IM 03/02/18 10:01 .ONCE ONE Lactobacillus Acidophilus 1 cap 02/28/18 10:00 03/01/18 17:41 Bacid Acidophilus PO Not Given BID ASHLEIGH Lorazepam 1 mg 02/28/18 17:30 03/01/18 13:18 Ativan PO 03/05/18 13:09 1 mg Q6H ASHLEIGH Administration Taper Lorazepam 1 mg 02/28/18 17:20 02/28/18 22:09 Ativan IVP 1 mg Q6H PRN Administration Agitation Pantoprazole Sodium 40 mg 02/28/18 10:00 03/01/18 10:07 Protonix Inj IVP 40 mg DAILY ASHLEIGH Administration Pneumococcal Polyvalent Vaccine 0.5 ml 03/02/18 10:00 Pneumovax 23 Vaccine IM 03/02/18 10:01 .ONCE ONE - Patient Studies Lab Studies: Microbiology Studies 02/27/18 12:51 Urine Culture - Preliminary Urine Gram Positive Cocci 02/27/18 13:57 Blood Culture - Preliminary Blood NO GROWTH AFTER 48 HOURS 02/27/18 12:58 Blood Culture - Preliminary Blood NO GROWTH AFTER 48 HOURS 02/27/18 16:42 MRSA Culture (Admit) - Final Naris MRSA NOT DETECTED Lab Studies 03/01/18 03/01/18 03/01/18 Range/Units 05:45 05:43 05:06 WBC 9.5 (4.8-10.8) K/uL RBC 2.42 L (4.40-5.90) Mil/uL Hgb 8.0 L (12.0-18.0) g/dL Hct 22.9 L (35.0-51.0) % MCV 94.7 H (80.0-94.0) fL MCH 33.1 H (27.0-31.0) pg MCHC 35.0 (33.0-37.0) g/dL RDW 18.2 H (11.5-14.5) % Plt Count 72 L (130-400) K/uL MPV 9.1 (7.2-11.7) fL Neut % (Auto) 78.2 H (50.0-75.0) % Lymph % (Auto) 9.1 L (20.0-40.0) % Sebastian % (Auto) 11.4 H (0.0-10.0) % Eos % (Auto) 0.5 (0.0-4.0) % Baso % (Auto) 0.8 (0.0-2.0) % Neut # (Auto) 7.4 H (1.8-7.0) K/uL Lymph # (Auto) 0.9 L (1.0-4.3) K/uL Sebastian # (Auto) 1.1 H (0.0-0.8) K/uL Eos # (Auto) 0.0 (0.0-0.7) K/uL Baso # (Auto) 0.1 (0.0-0.2) K/uL Neutrophils % (Manual) 77 H (50-75) % Band Neutrophils % 6 H (0-2) % Lymphocytes % (Manual) 8 L (20-40) % Monocytes % (Manual) 8 (0-10) % Eosinophils % (Manual) 1 (0-4) % Platelet Estimate Decreased L (NORMAL) Hypochromasia (manual) Slight Poikilocytosis (manual Slight Basophilic Stippling Slight Anisocytosis (manual) Slight Ovalocytes Moderate Sodium 128 L (132-148) mmol/L Potassium 2.9 L (3.6-5.2) mmol/L Chloride 90 L (98-107) mmol/L Carbon Dioxide 28 (22-30) mmol/L Anion Gap 12 (10-20) BUN 8 L (9-20) mg/dL Creatinine 0.5 L (0.8-1.5) mg/dL Est GFR ( Amer) > 60 Est GFR (Non-Af Amer) > 60 Random Glucose 86 (75-110) mg/dL Calcium 6.7 L (8.6-10.4) mg/dl Phosphorus 0.6 L* (2.5-4.5) mg/dL Magnesium 1.8 (1.6-2.3) mg/dL Total Bilirubin 8.4 H (0.2-1.3) mg/dL AST 425 H D (17-59) U/L ALT 78 H (21-72) U/L Alkaline Phosphatase 132 H D (38-126) U/L Total Creatine Kinase 133 (55-170) U/L Total Protein 6.5 (6.3-8.3) g/dL Albumin 2.4 L (3.5-5.0) g/dL Globulin 4.1 H (2.2-3.9) gm/dL Albumin/Globulin Ratio 0.6 L (1.0-2.1) Vancomycin Trough 7.0 (5.0-10.0) ug/mL HIV 1&2 Ag/Ab, 4th Gen (Nonreactive) Ur L.pneumophila Ag (NEGATIVE) 02/28/18 02/28/18 Range/Units 18:27 06:59 WBC (4.8-10.8) K/uL RBC (4.40-5.90) Mil/uL Hgb (12.0-18.0) g/dL Hct (35.0-51.0) % MCV (80.0-94.0) fL MCH (27.0-31.0) pg MCHC (33.0-37.0) g/dL RDW (11.5-14.5) % Plt Count (130-400) K/uL MPV (7.2-11.7) fL Neut % (Auto) (50.0-75.0) % Lymph % (Auto) (20.0-40.0) % Sebastian % (Auto) (0.0-10.0) % Eos % (Auto) (0.0-4.0) % Baso % (Auto) (0.0-2.0) % Neut # (Auto) (1.8-7.0) K/uL Lymph # (Auto) (1.0-4.3) K/uL Sebastian # (Auto) (0.0-0.8) K/uL Eos # (Auto) (0.0-0.7) K/uL Baso # (Auto) (0.0-0.2) K/uL Neutrophils % (Manual) (50-75) % Band Neutrophils % (0-2) % Lymphocytes % (Manual) (20-40) % Monocytes % (Manual) (0-10) % Eosinophils % (Manual) (0-4) % Platelet Estimate (NORMAL) Hypochromasia (manual) Poikilocytosis (manual Basophilic Stippling Anisocytosis (manual) Ovalocytes Sodium (132-148) mmol/L Potassium (3.6-5.2) mmol/L Chloride (98-107) mmol/L Carbon Dioxide (22-30) mmol/L Anion Gap (10-20) BUN (9-20) mg/dL Creatinine (0.8-1.5) mg/dL Est GFR ( Amer) Est GFR (Non-Af Amer) Random Glucose (75-110) mg/dL Calcium (8.6-10.4) mg/dl Phosphorus (2.5-4.5) mg/dL Magnesium (1.6-2.3) mg/dL Total Bilirubin (0.2-1.3) mg/dL AST (17-59) U/L ALT (21-72) U/L Alkaline Phosphatase (38-126) U/L Total Creatine Kinase (55-170) U/L Total Protein (6.3-8.3) g/dL Albumin (3.5-5.0) g/dL Globulin (2.2-3.9) gm/dL Albumin/Globulin Ratio (1.0-2.1) Vancomycin Trough (5.0-10.0) ug/mL HIV 1&2 Ag/Ab, 4th Gen Nonreactive (Nonreactive) Ur L.pneumophila Ag Negative (NEGATIVE) Laboratory Results - last 24 hr 02/28/18 02/28/18 03/01/18 06:59 18:27 05:06 WBC 9.5 RBC 2.42 L Hgb 8.0 L Hct 22.9 L MCV 94.7 H MCH 33.1 H MCHC 35.0 RDW 18.2 H Plt Count 72 L MPV 9.1 Neut % (Auto) 78.2 H Lymph % (Auto) 9.1 L Sebastian % (Auto) 11.4 H Eos % (Auto) 0.5 Baso % (Auto) 0.8 Neut # (Auto) 7.4 H Lymph # (Auto) 0.9 L Sebastian # (Auto) 1.1 H Eos # (Auto) 0.0 Baso # (Auto) 0.1 Neutrophils % (Manual) 77 H Band Neutrophils % 6 H Lymphocytes % (Manual) 8 L Monocytes % (Manual) 8 Eosinophils % (Manual) 1 Platelet Estimate Decreased L Hypochromasia (manual) Slight Poikilocytosis (manual Slight Basophilic Stippling Slight Anisocytosis (manual) Slight Ovalocytes Moderate Sodium Potassium Chloride Carbon Dioxide Anion Gap BUN Creatinine Est GFR ( Amer) Est GFR (Non-Af Amer) Random Glucose Calcium Phosphorus Magnesium Total Bilirubin AST ALT Alkaline Phosphatase Total Creatine Kinase Total Protein Albumin Globulin Albumin/Globulin Ratio Vancomycin Trough HIV 1&2 Ag/Ab, 4th Gen Nonreactive Ur L.pneumophila Ag Negative 03/01/18 03/01/18 05:43 05:45 WBC RBC Hgb Hct MCV MCH MCHC RDW Plt Count MPV Neut % (Auto) Lymph % (Auto) Sebastian % (Auto) Eos % (Auto) Baso % (Auto) Neut # (Auto) Lymph # (Auto) Sebastian # (Auto) Eos # (Auto) Baso # (Auto) Neutrophils % (Manual) Band Neutrophils % Lymphocytes % (Manual) Monocytes % (Manual) Eosinophils % (Manual) Platelet Estimate Hypochromasia (manual) Poikilocytosis (manual Basophilic Stippling Anisocytosis (manual) Ovalocytes Sodium 128 L Potassium 2.9 L Chloride 90 L Carbon Dioxide 28 Anion Gap 12 BUN 8 L Creatinine 0.5 L Est GFR ( Amer) > 60 Est GFR (Non-Af Amer) > 60 Random Glucose 86 Calcium 6.7 L Phosphorus 0.6 L* Magnesium 1.8 Total Bilirubin 8.4 H AST 425 H D ALT 78 H Alkaline Phosphatase 132 H D Total Creatine Kinase 133 Total Protein 6.5 Albumin 2.4 L Globulin 4.1 H Albumin/Globulin Ratio 0.6 L Vancomycin Trough 7.0 HIV 1&2 Ag/Ab, 4th Gen Ur L.pneumophila Ag Fingerstick Blood Sugar Results: 104 Review of Systems - Review of Systems Systems not reviewed;Unavailable: Intoxicated Critical Care Progress Note - Nutrition Nutrition: Nutrition Category Date Time Status Dysphagia/Modified Consistency Diet [DIET] Diets 02/28/18 Lunch Active Assessment/Plan - Assessment and Plan (Free Text) Assessment: Patient is a 57-year-old male with a past medical history of multiple visits to the ED for alcohol intoxication who presents to [facility] brought in by ambulance for alcohol intoxication. Of note, the patient is homeless and was found on someone else's property. While in the ED: chest x-ray was obtained and revealed right lower lobe infiltrates. Patient treated empirically CAP. CT head without contrast was obtained 02/27/18 and revealed small subdural hematoma. Patient currently arousable but is not oriented. Patient currently being monitored and treated in ICU. Neuro: - Neurology consulted; Dr. Loving; recommendations appreciated - Patient is altered - UDS positive for high levels of alcohol - Ammonia =9 - Start lactulose - Hyponatremia - Hypothermia: warming blankets; resolved - Urine Na, urine osm, serum osm, pending - 02/27/18 CT head without contrast: small subdural hematoma (see official report for more detail) - 02/27/18 CTA of head and neck: There is a tiny calcified plaque left carotid bifurcation; otherwise unremarkable; No evidence of anneurysm or vascular malformation - CIWA protocol - Start Precedex - Start NS @100 - Atival PRN - Hypoglycemia protocol - Banana bag completed - Neuro checks Q2 CV: - No acute issues - 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 Pulm: - CXR: left lower lobe infiltrates - Start empiric antibiotics for CAP - Monitor CBC with diff, ABG Renal: - Hyponatremia; NS @100 - Hypophosphatemia; replete as needed - Hypokalemia; replete as needed - Urine Na, urine osm, serum osm, pending - Monitor with CMP, Mg, Phos GI: - 02/27/18 Abd ultrasound obtained - 03/01/18 CT abdomen/Pelvis obtained - NG tube - NPO except meds - PPx: protonix 40mg IVP daily ID: - Hepatitis panel negative - Empiric antibiotics for CAP - MRSA screen pending - Blood cultures: no growth x48hrs - Urine cultures: gram positive Cocci PPx: - GI: Protonix 40mg IVP daily - DVT: SCD contraindicated Patient seen and case discussed with Dr. Cornelius Miller PGY1 <Olvin Shields S - Last Filed: 03/01/18 18:50> CCU Subjective - Physician Review Critical Care Time Spent (in minutes): 45 CCU Objective - Vital Signs / Intake & Output Vital Signs (Last 4 hours): Vital Signs Pulse Resp BP Pulse Ox 03/01/18 17:03 107 H 28 H 130/77 95 03/01/18 17:00 107 H 22 95 03/01/18 16:03 105 H 42 H 138/78 96 03/01/18 16:00 105 H 32 H 97 03/01/18 15:03 106 H 20 127/87 93 L 03/01/18 15:00 107 H 39 H 95 Intake and Output (Last 8hrs): Intake & Output 03/01/18 03/01/18 03/01/18 06:59 14:59 22:59 Intake Total 1200 750 550 Output Total 450 Balance 750 750 550 Weight 167 lb 2 oz Intake: Intake, IV Amount 900 750 550 Left Hand 800 550 350 Left Wrist 100 Right Wrist 200 200 Oral 300 Output: Urine 450 Urine, Voided 450 - Medications Active Medications: Active Medications Generic Name Dose Route Start Last Admin Trade Name Freq PRN Reason Stop Dose Admin Dextrose 0 gm 02/28/18 07:44 Glutose 15 PO ONCE PRN Hypoglycemia Protocol Protocol Glucagon 1 mg 02/28/18 07:44 Glucagen Diagnostic Kit IM STAT PRN Hypoglycemia Protocol Protocol Piperacillin Sod/Tazobactam Sod 3.375 gm in 50 mls @ 100 mls/hr 02/27/18 16:00 03/01/18 16:24 Zosyn 3.375 Gm Iv Premix IVPB 100 mls/hr Q6H ASHLEIGH Administration Protocol Vancomycin/Sodium Chloride 1 gm in 200 mls @ 133.333 mls/hr 02/27/18 16:00 03/01/18 16:24 Vancomycin 1 Gm/Ns 200 Ml IVPB 03/04/18 16:01 133.333 mls/hr Q12H ASHLEIGH Administration Protocol Dextrose 1,000 mls @ 0 mls/hr 02/28/18 07:44 Dextrose 5% In Water 1000 Ml IV .Q0M PRN Hypoglycemia Protocol Protocol Per Protocol Dexmedetomidine HCl 200 mcg/ 50 mls @ 3.79 mls/hr 03/01/18 16:36 03/01/18 17:40 Sodium Chloride IV 1 mcg/kg/hr TITR PRN 18.95 mls/hr Agitation Administration Protocol 0.2 MCG/KG/HR Sodium Chloride 1,000 mls @ 100 mls/hr 03/01/18 18:15 Sodium Chloride 0.9% IV .Q10H ASHLEIGH Influenza Virus Vaccine 60 mcg 03/02/18 10:00 Fluzone Quad [id number] IM 03/02/18 10:01 .ONCE ONE Lactobacillus Acidophilus 1 cap 02/28/18 10:00 03/01/18 17:41 Bacid Acidophilus PO Not Given BID ASHLEIGH Lorazepam 1 mg 02/28/18 17:30 03/01/18 18:14 Ativan PO 03/05/18 13:09 Not Given Q6H ASHLEIGH Taper Lorazepam 1 mg 02/28/18 17:20 02/28/18 22:09 Ativan IVP 1 mg Q6H PRN Administration Agitation Pantoprazole Sodium 40 mg 02/28/18 10:00 03/01/18 10:07 Protonix Inj IVP 40 mg DAILY ASHLEIGH Administration Pneumococcal Polyvalent Vaccine 0.5 ml 03/02/18 10:00 Pneumovax 23 Vaccine IM 03/02/18 10:01 .ONCE ONE - Patient Studies Lab Studies: Microbiology Studies 02/27/18 12:51 Urine Culture - Preliminary Urine Gram Positive Cocci 02/27/18 13:57 Blood Culture - Preliminary Blood NO GROWTH AFTER 48 HOURS 02/27/18 12:58 Blood Culture - Preliminary Blood NO GROWTH AFTER 48 HOURS 02/27/18 16:42 MRSA Culture (Admit) - Final Naris MRSA NOT DETECTED Lab Studies 03/01/18 03/01/18 03/01/18 Range/Units 18:10 05:45 05:43 WBC (4.8-10.8) K/uL RBC (4.40-5.90) Mil/uL Hgb (12.0-18.0) g/dL Hct (35.0-51.0) % MCV (80.0-94.0) fL MCH (27.0-31.0) pg MCHC (33.0-37.0) g/dL RDW (11.5-14.5) % Plt Count (130-400) K/uL MPV (7.2-11.7) fL Neut % (Auto) (50.0-75.0) % Lymph % (Auto) (20.0-40.0) % Sebastian % (Auto) (0.0-10.0) % Eos % (Auto) (0.0-4.0) % Baso % (Auto) (0.0-2.0) % Neut # (Auto) (1.8-7.0) K/uL Lymph # (Auto) (1.0-4.3) K/uL Sebastian # (Auto) (0.0-0.8) K/uL Eos # (Auto) (0.0-0.7) K/uL Baso # (Auto) (0.0-0.2) K/uL Neutrophils % (Manual) (50-75) % Band Neutrophils % (0-2) % Lymphocytes % (Manual) (20-40) % Monocytes % (Manual) (0-10) % Eosinophils % (Manual) (0-4) % Platelet Estimate (NORMAL) Hypochromasia (manual) Poikilocytosis (manual Basophilic Stippling Anisocytosis (manual) Ovalocytes Sodium 130 L 128 L (132-148) mmol/L Potassium 5.0 2.9 L (3.6-5.2) mmol/L Chloride 93 L 90 L (98-107) mmol/L Carbon Dioxide 29 28 (22-30) mmol/L Anion Gap 14 12 (10-20) BUN 8 L 8 L (9-20) mg/dL Creatinine 0.6 L 0.5 L (0.8-1.5) mg/dL Est GFR ( Amer) > 60 > 60 Est GFR (Non-Af Amer) > 60 > 60 Random Glucose 83 86 (75-110) mg/dL Calcium 6.5 L 6.7 L (8.6-10.4) mg/dl Phosphorus 5.3 H 0.6 L* (2.5-4.5) mg/dL Magnesium 2.0 1.8 (1.6-2.3) mg/dL Total Bilirubin 9.3 H 8.4 H (0.2-1.3) mg/dL AST 360 H 425 H D (17-59) U/L ALT 79 H 78 H (21-72) U/L Alkaline Phosphatase 136 H 132 H D (38-126) U/L Total Creatine Kinase 133 (55-170) U/L Total Protein 6.4 6.5 (6.3-8.3) g/dL Albumin 2.5 L 2.4 L (3.5-5.0) g/dL Globulin 3.9 4.1 H (2.2-3.9) gm/dL Albumin/Globulin Ratio 0.6 L 0.6 L (1.0-2.1) Vancomycin Trough 7.0 (5.0-10.0) ug/mL HIV 1&2 Ag/Ab, 4th Gen (Nonreactive) Ur L.pneumophila Ag (NEGATIVE) 03/01/18 02/28/18 02/28/18 Range/Units 05:06 18:27 06:59 WBC 9.5 (4.8-10.8) K/uL RBC 2.42 L (4.40-5.90) Mil/uL Hgb 8.0 L (12.0-18.0) g/dL Hct 22.9 L (35.0-51.0) % MCV 94.7 H (80.0-94.0) fL MCH 33.1 H (27.0-31.0) pg MCHC 35.0 (33.0-37.0) g/dL RDW 18.2 H (11.5-14.5) % Plt Count 72 L (130-400) K/uL MPV 9.1 (7.2-11.7) fL Neut % (Auto) 78.2 H (50.0-75.0) % Lymph % (Auto) 9.1 L (20.0-40.0) % Sebastian % (Auto) 11.4 H (0.0-10.0) % Eos % (Auto) 0.5 (0.0-4.0) % Baso % (Auto) 0.8 (0.0-2.0) % Neut # (Auto) 7.4 H (1.8-7.0) K/uL Lymph # (Auto) 0.9 L (1.0-4.3) K/uL Sebastian # (Auto) 1.1 H (0.0-0.8) K/uL Eos # (Auto) 0.0 (0.0-0.7) K/uL Baso # (Auto) 0.1 (0.0-0.2) K/uL Neutrophils % (Manual) 77 H (50-75) % Band Neutrophils % 6 H (0-2) % Lymphocytes % (Manual) 8 L (20-40) % Monocytes % (Manual) 8 (0-10) % Eosinophils % (Manual) 1 (0-4) % Platelet Estimate Decreased L (NORMAL) Hypochromasia (manual) Slight Poikilocytosis (manual Slight Basophilic Stippling Slight Anisocytosis (manual) Slight Ovalocytes Moderate Sodium (132-148) mmol/L Potassium (3.6-5.2) mmol/L Chloride (98-107) mmol/L Carbon Dioxide (22-30) mmol/L Anion Gap (10-20) BUN (9-20) mg/dL Creatinine (0.8-1.5) mg/dL Est GFR ( Amer) Est GFR (Non-Af Amer) Random Glucose (75-110) mg/dL Calcium (8.6-10.4) mg/dl Phosphorus (2.5-4.5) mg/dL Magnesium (1.6-2.3) mg/dL Total Bilirubin (0.2-1.3) mg/dL AST (17-59) U/L ALT (21-72) U/L Alkaline Phosphatase (38-126) U/L Total Creatine Kinase (55-170) U/L Total Protein (6.3-8.3) g/dL Albumin (3.5-5.0) g/dL Globulin (2.2-3.9) gm/dL Albumin/Globulin Ratio (1.0-2.1) Vancomycin Trough (5.0-10.0) ug/mL HIV 1&2 Ag/Ab, 4th Gen Nonreactive (Nonreactive) Ur L.pneumophila Ag Negative (NEGATIVE) Laboratory Results - last 24 hr 02/28/18 02/28/18 03/01/18 06:59 18:27 05:06 WBC 9.5 RBC 2.42 L Hgb 8.0 L Hct 22.9 L MCV 94.7 H MCH 33.1 H MCHC 35.0 RDW 18.2 H Plt Count 72 L MPV 9.1 Neut % (Auto) 78.2 H Lymph % (Auto) 9.1 L Sebastian % (Auto) 11.4 H Eos % (Auto) 0.5 Baso % (Auto) 0.8 Neut # (Auto) 7.4 H Lymph # (Auto) 0.9 L Sebastian # (Auto) 1.1 H Eos # (Auto) 0.0 Baso # (Auto) 0.1 Neutrophils % (Manual) 77 H Band Neutrophils % 6 H Lymphocytes % (Manual) 8 L Monocytes % (Manual) 8 Eosinophils % (Manual) 1 Platelet Estimate Decreased L Hypochromasia (manual) Slight Poikilocytosis (manual Slight Basophilic Stippling Slight Anisocytosis (manual) Slight Ovalocytes Moderate Sodium Potassium Chloride Carbon Dioxide Anion Gap BUN Creatinine Est GFR ( Amer) Est GFR (Non-Af Amer) Random Glucose Calcium Phosphorus Magnesium Total Bilirubin AST ALT Alkaline Phosphatase Total Creatine Kinase Total Protein Albumin Globulin Albumin/Globulin Ratio Vancomycin Trough HIV 1&2 Ag/Ab, 4th Gen Nonreactive Ur L.pneumophila Ag Negative 03/01/18 03/01/18 03/01/18 05:43 05:45 18:10 WBC RBC Hgb Hct MCV MCH MCHC RDW Plt Count MPV Neut % (Auto) Lymph % (Auto) Sebastian % (Auto) Eos % (Auto) Baso % (Auto) Neut # (Auto) Lymph # (Auto) Sebastian # (Auto) Eos # (Auto) Baso # (Auto) Neutrophils % (Manual) Band Neutrophils % Lymphocytes % (Manual) Monocytes % (Manual) Eosinophils % (Manual) Platelet Estimate Hypochromasia (manual) Poikilocytosis (manual Basophilic Stippling Anisocytosis (manual) Ovalocytes Sodium 128 L 130 L Potassium 2.9 L 5.0 Chloride 90 L 93 L Carbon Dioxide 28 29 Anion Gap 12 14 BUN 8 L 8 L Creatinine 0.5 L 0.6 L Est GFR ( Amer) > 60 > 60 Est GFR (Non-Af Amer) > 60 > 60 Random Glucose 86 83 Calcium 6.7 L 6.5 L Phosphorus 0.6 L* 5.3 H Magnesium 1.8 2.0 Total Bilirubin 8.4 H 9.3 H AST 425 H D 360 H ALT 78 H 79 H Alkaline Phosphatase 132 H D 136 H Total Creatine Kinase 133 Total Protein 6.5 6.4 Albumin 2.4 L 2.5 L Globulin 4.1 H 3.9 Albumin/Globulin Ratio 0.6 L 0.6 L Vancomycin Trough 7.0 HIV 1&2 Ag/Ab, 4th Gen Ur L.pneumophila Ag Critical Care Progress Note - Nutrition Nutrition: Nutrition Category Date Time Status Dysphagia/Modified Consistency Diet [DIET] Diets 02/28/18 Lunch Active Attending/Attestation - Attestation I have personally seen and examined this patient.: Yes I have fully participated in the care of the patient.: Yes I have reviewed all pertinent clinical information: Yes Notes (Text): 03/01/18 18:49 patient seen and examined in the intensive Care unit Started on precedex for DTs Continue IV fluids Continue Ativan CAT scan of the chest noted IV antibiotics May need thoracentesis
[2018-03-01 18:44] LABS: ALB/GLOB RATIO 0.6 (1.0-2.1); ALBUMIN 2.5 g/dL (3.5-5.0); ALT/SGPT 79 U/L (21-72); AST/SGOT 360 U/L (17-59); BLOOD UREA NITROGEN 8 mg/dL (9-20); CALCIUM 6.5 mg/dl (8.6-10.4); GFR NON-AFRICAN AMERICAN > 60
--- NOTE | 2018-03-01 19:28 | CP.PCM.PN ---
Subjective - Date & Time of Evaluation Date of Evaluation: 03/01/18 Time of Evaluation: 18:45 - Subjective Subjective: Patient was seen and examined in the ICU at 6:45 PM 03/01/18. 57 year old [place] speaking male with a long history of Alcohol Abuse who was found on the ground and brought to the ER via EMS. Please see Assessment and Plans below for details. Precedex started on patient 03/01/18 by ICU Team General: Patient was NOT arousable HEENT: NCA, Pupils are round and reactive to light however are pinpoint, Bilateral Scleral Incterus, NO lymphadenopathy, Nasal Turbinates and Oral Mucosa is moist Cardio: NS1 and NS2, NO M/R/G Resp: CTA B/L NO R/R/W however limited by lack of patient participation GI: BS X 4, Soft, Distention is present Ext: Pulses are strong and equal and Capillary Refill is 2 seconds in bilateral UE and LE, Skin changes consistent with chronic venous insufficiency in the bilateral lower legs to the ankles, Right Leg appears to be larger in circumference than the Left Neuro: not possible at this time 1). RLL Infiltrate/Bilateral Pleural Effusions (Large on Right and Moderate on Left) CT Chest 02/28/18: large right and moderate left pleural effusions and associated consolidations, lingular infiltrate, probable bulla in the right upper lobe however small loculated penumothorax is not excluded, severe diffuse hepatic steatotosis, question hepatic mass versus more focal fatty infiltration involving a large region of the medial upper liver, small perhepatic and persplenic ascites. Vancomycin 1 gm IV Q12H (02/27/18-present): F/U Vancomycin Trough 3:30 PM 03/02/18 Zosyn 3.375 gm IV Q6H (02/27/18-present) Blood Culture 02/27/18: negative to date Urine Culture 02/27/18 shows NO growth F/U Mycoplasma IgG and IgM F/U Urine Legionella Ag F/U Urine Strep pneumonaei Ag 2). Low K, Low Phos, Low Mag Being repleted 3). Hypothermia Cooling [place] was used IVF 4). Subdural Hematoma CT Head 02/28/18 x 2: small left sided subdural hematoma which has increased in size slightly, small right sided hygroma, mild mass effect with compression of both cerebral hemispheres, mild chronic periventricular white matter ischemic changes, mild generalized volume loss CT Head and Neck 02/27/18: tiny calcified plaque left carotid bifurcation, NO evidence of large aneurysm/vascular malformation Seen by Neurosurgery Dr. Coleman 02/18/18: no surgical intervention warranted and will need repeat CT Head in 1 week Considering large drop in HgB, will order CT Head w/o contrast now 02/28/18 5). Alcohol Abuse Upon exam 02/28/18: evidence of tremors of the upper body, aware of month and year and president Start Ativan Taper 02/28/18 to finish 03/05/18 at 1PM 6). Anemia Likely Secondary to Hx Alcohol Abuse Monitor HgB/Hct Vitamin B12 normal at 856 Folate normal at 3.3 Iron Studies: Total Iron at 117, % Saturation 55, Ferritin 689, TIBC low at 212 7). Thrombocytopenia Likely Secondary to Hx Alcohol Abuse Monitor Hold anticoagulation 8). Elevated LFTs Likely Secondary to Hx Alcohol Abuse Abdominal U/S 02/27/18: nodular hepatic contour consistent with cirrhosis, echogenic liver may be seen in the setting of hepatic parynchymal disease or fatty infiltration, small ascites, gallstones Hepatitis Panel 02/27/18: negative HIV 4th Generation 02/27/18: negative 9). Hyponatremia SIADH vs. Adrenal Insufficiency vs. Hyponatremia vs Hyperprolactinemia Urine Osmolalilty normal at 455 Urine Na low <5 TSH, Free T4 are normal AM Cortisol 02/28/18 is elevated at 44.5 Prolactin Level is elevated 21.3 Triglycerides elevated at 193 Please note that although the labs (Urine Osm and Urine Na does not indicated SIADH, considering the Subdural Hematoma and the fact that patient was already being treated prior to these labs being drawn SIADH is still a possibility) 10). Elevated CPK Could be secondary to Rhabdomyolysis IVF NS at 100 ml/hr CPK 03/01/18: 113 normal 11). Prophylaxis NO anticoagulation considering the Subdural Hematoma, Anemia, Thrombocytopenia NO SCDs until results of Venoud Duplex are known NO PPI/H2 Antagonists indicated at this time F/U Venous Duplex of Bilateral LE ordered on 02/28/18 Jerardo Giraldo D.O. Objective - Vital Signs/Intake and Output Vital Signs (last 24 hours): Temp Pulse Resp BP Pulse Ox 97.7 F 78 40 H 130/86 93 L 02/28/18 20:00 03/01/18 19:00 03/01/18 19:00 03/01/18 18:02 03/01/18 19:00 Intake and Output: 03/01/18 03/02/18 18:59 06:59 Intake Total 1319 Balance 1319 - Medications Medications: Current Medications Dextrose (Glutose 15) 0 gm PO ONCE PRN; Protocol PRN Reason: Hypoglycemia Protocol Glucagon (Glucagen Diagnostic Kit) 1 mg IM STAT PRN; Protocol PRN Reason: Hypoglycemia Protocol Piperacillin Sod/Tazobactam Sod (Zosyn 3.375 Gm Iv Premix) 3.375 gm in 50 mls @ 100 mls/hr IVPB Q6H ASHLEIGH; Protocol Last Admin: 03/01/18 16:24 Dose: 100 mls/hr Vancomycin/Sodium Chloride (Vancomycin 1 Gm/Ns 200 Ml) 1 gm in 200 mls @ 133.333 mls/hr IVPB Q12H ASHLEIGH; Protocol Stop: 03/04/18 16:01 Last Admin: 03/01/18 16:24 Dose: 133.333 mls/hr Dextrose (Dextrose 5% In Water 1000 Ml) 1,000 mls @ 0 mls/hr IV .Q0M PRN; Protocol PRN Reason: Hypoglycemia Protocol Dexmedetomidine HCl 200 mcg/ (Sodium Chloride) 50 mls @ 3.79 mls/hr IV TITR PRN; Protocol PRN Reason: Agitation Last Admin: 03/01/18 17:40 Dose: 1 mcg/kg/hr, 18.95 mls/hr Sodium Chloride (Sodium Chloride 0.9%) 1,000 mls @ 100 mls/hr IV .Q10H A[facility] Influenza Virus Vaccine (Fluzone Quad [id number]) 60 mcg IM .ONCE ONE Stop: 03/02/18 10:01 Lactobacillus Acidophilus (Bacid Acidophilus) 1 cap PO BID ASHLEIGH Last Admin: 03/01/18 17:41 Dose: Not Given Lorazepam (Ativan) 1 mg PO Q6H ASHLEIGH; Taper Stop: 03/05/18 13:09 Last Admin: 03/01/18 18:14 Dose: Not Given Lorazepam (Ativan) 1 mg IVP Q6H PRN PRN Reason: Agitation Last Admin: 02/28/18 22:09 Dose: 1 mg Pantoprazole Sodium (Protonix Inj) 40 mg IVP DAILY ASHLEIGH Last Admin: 03/01/18 10:07 Dose: 40 mg Pneumococcal Polyvalent Vaccine (Pneumovax 23 Vaccine) 0.5 ml IM .ONCE ONE Stop: 03/02/18 10:01 - Labs Labs: 03/01/18 05:06 03/01/18 18:10 PT 19.9 SECONDS (9.7-12.2) H D 02/28/18 07:14 INR 1.8 D 02/28/18 07:14 APTT 40 SECONDS (21-34) H 02/27/18 12:58
--- NOTE | 2018-03-01 19:41 | CP.PCM.PCO ---
Physician Communication Note - Physician Communication Note Physician Communication Note: Please see above
[2018-03-01] MEDS: Sodium Chloride 0.9% 1,000 ML IV SCH (20:09)
--- NOTE | 2018-03-01 21:17 | CARD ---
APPROVED REPORT Date of service: 02/27/2018 EKG Measurement Heart [id number] NM [id number] [id number] <Conclusion> Sinus rhythm Rightward axis PROMINENT BASELINE ARTIFACT PLEASE REPEAT Abnormal ECG
[2018-03-02 00:43] LABS: ARTERIAL BLOOD GAS HCO3 25.2 mmol/L (21-28); ARTERIAL BLOOD GAS O2 SAT 98.5 % (95-98); ARTERIAL BLOOD GAS PCO2 55 mm/Hg (35-45); ARTERIAL BLOOD GAS PH 7.31 (7.35-7.45); ARTERIAL BLOOD GAS PO2 82 mm/Hg (80-100); ARTERIAL BLOOD GAS TCO2 29.4 mmol/L (22-28)
[2018-03-02] MEDS: Piperacill/Tazo 3.375gm in Dex 3.375 GM/50 ML BAG IVPB SCH ×4 (03:46→21:20)
[2018-03-02] MEDS: Vancomycin 1 gm/NS 200 ml 1 GM/200 ML BAG IVPB SCH ×2 (03:46→17:13)
[2018-03-02] MEDS: Sodium Chloride 0.9% 1,000 ML IV SCH ×4 (03:47→23:20)
[2018-03-02 04:51] LABS: ARTERIAL BLOOD GAS HCO3 25.8 mmol/L (21-28); ARTERIAL BLOOD GAS O2 SAT 101.1 % (95-98); ARTERIAL BLOOD GAS PCO2 31 mm/Hg (35-45); ARTERIAL BLOOD GAS PH 7.49 (7.35-7.45); ARTERIAL BLOOD GAS PO2 231 mm/Hg (80-100); ARTERIAL BLOOD GAS TCO2 24.6 mmol/L (22-28)
[2018-03-02 05:36] LABS: BASO # 0.1 K/uL (0.0-0.2); BASO % 0.8 % (0.0-2.0); EOS # 0.1 K/uL (0.0-0.7); EOS % 0.9 % (0.0-4.0); HEMOGLOBIN 7.5 g/dL (12.0-18.0); LYMPH # 0.8 K/uL (1.0-4.3); LYMPH % 10.1 % (20.0-40.0); MEAN CELL VOLUME 97.2 fL (80.0-94.0); MEAN CORPUSCULAR HEMOGLOBIN 33.3 pg (27.0-31.0); MEAN CORPUSCULAR HGB CONC 34.3 g/dL (33.0-37.0); MEAN PLATELET VOLUME 9.4 fL (7.2-11.7); MONO # 0.7 K/uL (0.0-0.8); MONO % 8.1 % (0.0-10.0); NEUT # 6.6 K/uL (1.8-7.0); NEUT % 80.1 % (50.0-75.0); NRBC % 0.1 % (0.0-2.0); RBC 2.25 Mil/uL (4.40-5.90); RED CELL DISTRIBUTION WIDTH 18.8 % (11.5-14.5); WHITE BLOOD COUNT 8.2 K/uL (4.8-10.8)
[2018-03-02 06:09] LABS: ALB/GLOB RATIO 0.6 (1.0-2.1); ALBUMIN 2.2 g/dL (3.5-5.0); ALT/SGPT 66 U/L (21-72); AST/SGOT 298 U/L (17-59); BLOOD UREA NITROGEN 12 mg/dL (9-20); CALCIUM 6.3 mg/dl (8.6-10.4); GFR NON-AFRICAN AMERICAN > 60
--- NOTE | 2018-03-02 08:46 | RAD ---
Date of service: 03/02/2018 HISTORY: Inadequate oxygenation COMPARISON: 02/27/2018 FINDINGS: LUNGS: Worsening dense consolidative opacifications seen in both lungs. Moderate to severe bilateral pleural effusions. Biapical pleural thickening with upper lobe granulomatous changes. PLEURA: As above. CARDIOVASCULAR: Aortic atherosclerotic calcification present. Cardiomegaly. OSSEOUS STRUCTURES: No significant abnormalities. VISUALIZED UPPER ABDOMEN: Normal. OTHER FINDINGS: None. IMPRESSION: Worsening dense consolidative opacifications seen in both lungs. Moderate to severe bilateral pleural effusions.
[2018-03-02] MEDS: Lactobacillus Acidophilus 500 MU Cap PO SCH ×2 (09:36→17:14)
[2018-03-02] MEDS ORDERED: Pneumococcal 23-Valent Vaccine IM ONE (10:00)
[2018-03-02] MEDS ORDERED: Influenza Vaccine 60 MCG/0.5 ML SYR (3 yr & up) IM ONE (10:00)
[2018-03-02 10:10] LABS: ABG ALLEN TEST PO; ARTERIAL BLOOD GAS HCO3 27.9 mmol/L (21-28); ARTERIAL BLOOD GAS HEMOGLOBIN 8.4 g/dL (11.7-17.4); ARTERIAL BLOOD GAS O2 SAT 100.5 % (95-98); ARTERIAL BLOOD GAS PCO2 43 mm/Hg (35-45); ARTERIAL BLOOD GAS PH 7.43 (7.35-7.45); ARTERIAL BLOOD GAS PO2 106 mm/Hg (80-100); ARTERIAL BLOOD GAS TCO2 29.8 mmol/L (22-28)
[2018-03-02] MEDS: Dexmedetomidine Hydrochloride 200 MCG in Sodium Chloride 0.9% 48 ML IV PRN (11:43)
[2018-03-02] MEDS ORDERED: Dextrose 50% SYRINGE Inj (50 ml) IV STA (12:11)
--- NOTE | 2018-03-02 15:41 | CT ---
Date of service: 03/02/2018 PROCEDURE: CT HEAD WITHOUT CONTRAST. HISTORY: Subdural hematoma. COMPARISON: None available. TECHNIQUE: Axial computed tomography images were obtained through the head/brain without intravenous contrast. Radiation dose: Total exam DLP = 1122.66 mGy-cm. This CT exam was performed using one or more of the following dose reduction techniques: Automated exposure control, adjustment of the mA and/or kV according to patient size, and/or use of iterative reconstruction technique. FINDINGS: HEMORRHAGE: Previously noted small left-sided acute subdural hematoma has continues to undergo evolution and now appears hypodense small but very slightly larger right-sided subdural hygroma or chronic subdural hematoma is also again noted. These extra-axial collections continue to exert nearly symmetric mass-effect on both cerebral hemispheres with compression of overlying sulci and ventricles. BRAIN: Suspect minimal chronic periventricular white matter ischemic changes. Mild generalized volume loss not withstanding aforementioned mass-effect. VENTRICLES: As above. No obstructive hydrocephalus. CALVARIUM: Calvarium intact. PARANASAL SINUSES: Unremarkable as visualized. No significant inflammatory changes. MASTOID AIR CELLS: Unremarkable as visualized. No inflammatory changes. OTHER FINDINGS: None. IMPRESSION: Previously noted small left-sided acute subdural hematoma has continues to undergo evolution and now appears hypodense small but very slightly larger right-sided subdural hygroma or chronic subdural hematoma is also again noted. These extra-axial collections continue to exert nearly symmetric mass-effect on both cerebral hemispheres with compression of overlying sulci and ventricles.
--- NOTE | 2018-03-02 17:15 | CP.PCM.PN ---
Subjective - Date & Time of Evaluation Date of Evaluation: 03/02/18 Time of Evaluation: 17:16 - Subjective Subjective: on precedex non verbal sedated on bipap Objective - Vital Signs/Intake and Output Vital Signs (last 24 hours): Temp Pulse Resp BP Pulse Ox 97.2 F L 67 17 126/75 89 L 03/02/18 12:00 03/02/18 16:06 03/02/18 13:03 03/02/18 13:03 03/02/18 13:03 Intake and Output: 03/02/18 03/02/18 06:59 18:59 Intake Total 1592.0 688.8 Output Total 100 Balance 1492.0 688.8 - Medications Medications: Current Medications Dextrose (Glutose 15) 0 gm PO ONCE PRN; Protocol PRN Reason: Hypoglycemia Protocol Glucagon (Glucagen Diagnostic Kit) 1 mg IM STAT PRN; Protocol PRN Reason: Hypoglycemia Protocol Piperacillin Sod/Tazobactam Sod (Zosyn 3.375 Gm Iv Premix) 3.375 gm in 50 mls @ 100 mls/hr IVPB Q6H A[facility]LEIGH; Protocol Last Admin: 03/02/18 16:19 Dose: 100 mls/hr Vancomycin/Sodium Chloride (Vancomycin 1 Gm/Ns 200 Ml) 1 gm in 200 mls @ 133.333 mls/hr IVPB Q12H A[facility]LEIGH; Protocol Stop: 03/04/18 16:01 Last Admin: 03/02/18 17:13 Dose: 133.333 mls/hr Dextrose (Dextrose 5% In Water 1000 Ml) 1,000 mls @ 0 mls/hr IV .Q0M PRN; Protocol PRN Reason: Hypoglycemia Protocol Dexmedetomidine HCl 200 mcg/ (Sodium Chloride) 50 mls @ 3.79 mls/hr IV TITR PRN; Protocol PRN Reason: Agitation Last Titration: 03/02/18 15:30 Dose: 0.1 mcg/kg/hr, 1.9 mls/hr Sodium Chloride (Sodium Chloride 0.9%) 1,000 mls @ 100 mls/hr IV .Q10H ASHLEIGH Last Admin: 03/02/18 14:31 Dose: Not Given Lactobacillus Acidophilus (Bacid Acidophilus) 1 cap PO BID ASHLEIGH Last Admin: 03/02/18 17:14 Dose: Not Given Lorazepam (Ativan) 1 mg PO Q8H ASHLEIGH; Taper Stop: 03/05/18 13:09 Last Admin: 03/02/18 13:18 Dose: Not Given Lorazepam (Ativan) 1 mg IVP Q6H PRN PRN Reason: Agitation Last Admin: 02/28/18 22:09 Dose: 1 mg Pantoprazole Sodium (Protonix Inj) 40 mg IVP DAILY ASHLEIGH Last Admin: 03/02/18 09:35 Dose: 40 mg - Labs Labs: 03/02/18 05:30 03/02/18 05:30 PT 19.9 SECONDS (9.7-12.2) H D 02/28/18 07:14 INR 1.8 D 02/28/18 07:14 APTT 40 SECONDS (21-34) H 02/27/18 12:58 - Constitutional Appears: Unkempt, Older Than Stated Age - Respiratory Exam Additional comments: on bipap coarse bs - Cardiovascular Exam Cardiovascular Exam: REGULAR RHYTHM, +S1, +S2 - GI/Abdominal Exam GI & Abdominal Exam: Soft, Normal Bowel Sounds. absent: Tenderness - Neurological Exam Neurological Exam: absent: Alert, Awake, Oriented x3 Assessment and Plan - Assessment and Plan (Free Text) Assessment: 1). RLL Infiltrate/Bilateral Pleural Effusions (Large on Right and Moderate on Left) possible abscess CT Chest 02/28/18: large right and moderate left pleural effusions and associated consolidations, lingular infiltrate, probable bulla in the right upper lobe however small loculated penumothorax is not excluded, severe diffuse hepatic steatotosis, question hepatic mass versus more focal fatty infiltration involving a large region of the medial upper liver, small perhepatic and persplenic ascites. Vancomycin 1 gm IV Q12H (02/27/18-present): F/U Vancomycin Trough 3:30 PM 03/02/18 Zosyn 3.375 gm IV Q6H (02/27/18-present) Blood Culture 02/27/18: negative to date Urine Culture 02/27/18 shows NO growth F/U Mycoplasma IgG and IgM F/U Urine Legionella Ag F/U Urine Strep pneumonaei Ag CONSULT IR for biopsy/ pleural effusion drainage 2). Low K, Low Phos, Low Mag Being repleted 3). Hypothermia Cooling [place] was used IVF 4). Subdural Hematoma CT Head 11/13/18 x 2: small left sided subdural hematoma which has increased in size slightly, small right sided hygroma, mild mass effect with compression of both cerebral hemispheres, mild chronic periventricular white matter ischemic changes, mild generalized volume loss CT Head and Neck 02/27/18: tiny calcified plaque left carotid bifurcation, NO evidence of large aneurysm/vascular malformation Seen by Neurosurgery Dr. Coleman 02/18/18: no surgical intervention warranted and will need repeat CT Head in 1 week Considering large drop in HgB, will order CT Head w/o contrast now 02/28/18 5). Alcohol Abuse Upon exam 02/28/18: evidence of tremors of the upper body, aware of month and year and president Start Ativan Taper 02/28/18 to finish 03/05/18 at 1PM 6). Anemia Likely Secondary to Hx Alcohol Abuse Monitor HgB/Hct Vitamin B12 normal at 856 Folate normal at 3.3 Iron Studies: Total Iron at 117, % Saturation 55, Ferritin 689, TIBC low at 212 7). Thrombocytopenia Likely Secondary to Hx Alcohol Abuse Monitor Hold anticoagulation 8). Elevated LFTs Likely Secondary to Hx Alcohol Abuse Abdominal U/S 02/27/18: nodular hepatic contour consistent with cirrhosis, echogenic liver may be seen in the setting of hepatic parynchymal disease or fatty infiltration, small ascites, gallstones Hepatitis Panel 02/27/18: negative HIV 4th Generation 02/27/18: negative 9). Hyponatremia SIADH vs. Adrenal Insufficiency vs. Hyponatremia vs Hyperprolactinemia Urine Osmolalilty normal at 455 Urine Na low <5 TSH, Free T4 are normal AM Cortisol 02/28/18 is elevated at 44.5 Prolactin Level is elevated 21.3 Triglycerides elevated at 193 Please note that although the labs (Urine Osm and Urine Na does not indicated SIADH, considering the Subdural Hematoma and the fact that patient was already being treated prior to these labs being drawn SIADH is still a possibility) 10). Elevated CPK Could be secondary to Rhabdomyolysis IVF NS at 100 ml/hr CPK 03/01/18: 113 normal 11). Prophylaxis NO anticoagulation considering the Subdural Hematoma, Anemia, Thrombocytopenia NO SCDs until results of Venoud Duplex are known NO PPI/H2 Antagonists indicated at this time F/U Venous Duplex of Bilateral LE ordered on 02/28/18
--- NOTE | 2018-03-02 18:13 | CP.CCUPN ---
<Bobo Miller - Last Filed: 03/02/18 18:10> CCU Subjective - Physician Review Events Since Last Encounter (Free Text): 03/02/18 18:11 Patient became agitated overnight. Was placed on BiPAP. Subjective (Free Text): 03/02/18 18:10 PGY1 Critical Care Consult Note for Dr. Lee Patient seen and evaluated at bedside this morning. Patient arousable. Patient is not oriented to name only. 12 point ROS could not be obtained due to clinical condition. Patient on CIWA protocol. Patient was found to have small subdural hematomy on CT head without contrast 02/27/18. Patient currently in withdrawals and is on CIWA protocol with Ativan ordered. Patient on BiPAP currently. On precedex. Non-verbal. Sedated. Critical Care Time Spent (in minutes): 35 CCU Objective - Vital Signs / Intake & Output Vital Signs (Last 4 hours): Vital Signs Pulse Resp BP Pulse Ox 03/02/18 17:02 64 23 92/56 L 100 03/02/18 17:00 63 27 H 100 03/02/18 16:06 67 03/02/18 16:02 68 25 H 101/61 100 03/02/18 16:00 68 26 H 100 03/02/18 15:13 78 32 H 131/80 97 03/02/18 15:06 88 13 Intake and Output (Last 8hrs): Intake & Output 03/02/18 03/02/18 03/02/18 06:59 14:59 22:59 Intake Total 1080.4 880.4 269.8 Output Total 100 Balance 980.4 880.4 269.8 Weight 168 lb 8 oz Intake: IV 0 16 Intake, IV Amount 1080.4 880.4 253.8 Left Hand 800 800 200 Left Hand - Y-Port 250 50 50 Right Wrist 30.4 30.4 3.8 Output: Urine 100 Urine, Voided 100 Other: # Voids Urine, Voided 1 1 - Physical Exam Head: Positive for: Atraumatic, Normocephalic Pupils: Positive for: PERRL Extroacular Muscles: Positive for: EOMI Conjunctiva: Positive for: Normal, Icteric (bilaterally ) Mouth: Positive for: Moist Mucous Membranes Neck: Positive for: Normal Range of Motion Respiratory/Chest: Positive for: Clear to Auscultation. Negative for: Re spiratory Distress, Accessory Muscle Use Cardiovascular: Positive for: Regular Rate and Rhythm, Normal S1, S2. Negative for: Murmurs Abdomen: Positive for: Normal Bowel Sounds. Negative for: Tenderness, Distention Back: Positive for: Normal Inspection Lower Extremity: Positive for: Edema (bilaterally ), Neurovascularly Intact, Capillary Refill < 2 s. Negative for: Tenderness Neurological: Positive for: Other (Patient is sedated and not verbally responsive at this time) Skin: Positive for: Warm, Dry Psychiatric: Positive for: Alert - Medications Active Medications: Active Medications Generic Name Dose Route Start Last Admin Trade Name Freq PRN Reason Stop Dose Admin Dextrose 0 gm 02/28/18 07:44 Glutose 15 PO ONCE PRN Hypoglycemia Protocol Protocol Glucagon 1 mg 02/28/18 07:44 Glucagen Diagnostic Kit IM STAT PRN Hypoglycemia Protocol Protocol Piperacillin Sod/Tazobactam Sod 3.375 gm in 50 mls @ 100 mls/hr 02/27/18 16:00 03/02/18 16:19 Zosyn 3.375 Gm Iv Premix IVPB 100 mls/hr Q6H ASHLEIGH Administration Protocol Vancomycin/Sodium Chloride 1 gm in 200 mls @ 133.333 mls/hr 02/27/18 16:00 03/02/18 17:13 Vancomycin 1 Gm/Ns 200 Ml IVPB 03/04/18 16:01 133.333 mls/hr Q12H ASHLEIGH Administration Protocol Dextrose 1,000 mls @ 0 mls/hr 02/28/18 07:44 Dextrose 5% In Water 1000 Ml IV .Q0M PRN Hypoglycemia Protocol Protocol Per Protocol Dexmedetomidine HCl 200 mcg/ 50 mls @ 3.79 mls/hr 03/01/18 16:36 03/02/18 15:30 Sodium Chloride IV 0.1 mcg/kg/hr TITR PRN 1.9 mls/hr Agitation Titration Protocol 0.2 MCG/KG/HR Sodium Chloride 1,000 mls @ 100 mls/hr 03/01/18 18:15 03/02/18 14:31 Sodium Chloride 0.9% IV Not Given .Q10H ASHLEIGH Lactobacillus Acidophilus 1 cap 02/28/18 10:00 03/02/18 17:14 Bacid Acidophilus PO Not Given BID ASHLEIGH Lorazepam 1 mg 02/28/18 17:30 03/02/18 13:18 Ativan PO 03/05/18 13:09 Not Given Q8H ASHLEIGH Taper Lorazepam 1 mg 02/28/18 17:20 02/28/18 22:09 Ativan IVP 1 mg Q6H PRN Administration Agitation Pantoprazole Sodium 40 mg 02/28/18 10:00 03/02/18 09:35 Protonix Inj IVP 40 mg DAILY ASHLEIGH Administration - Patient Studies Lab Studies: Microbiology Studies 02/27/18 13:57 Blood Culture - Preliminary Blood NO GROWTH AFTER 3 DAYS 02/27/18 12:51 Urine Culture - Final Urine Enterococcus Faecalis 02/27/18 12:58 Blood Culture - Preliminary Blood NO GROWTH AFTER 3 DAYS Lab Studies 03/02/18 03/02/18 03/02/18 Range/Units 16:17 10:06 05:30 WBC (4.8-10.8) K/uL RBC (4.40-5.90) Mil/uL Hgb (12.0-18.0) g/dL Hct (35.0-51.0) % MCV (80.0-94.0) fL MCH (27.0-31.0) pg MCHC (33.0-37.0) g/dL RDW (11.5-14.5) % Plt Count (130-400) K/uL MPV (7.2-11.7) fL Neut % (Auto) (50.0-75.0) % Lymph % (Auto) (20.0-40.0) % [place] % (Auto) (0.0-10.0) % Eos % (Auto) (0.0-4.0) % Baso % (Auto) (0.0-2.0) % Neut # (Auto) (1.8-7.0) K/uL Lymph # (Auto) (1.0-4.3) K/uL [place] # (Auto) (0.0-0.8) K/uL Eos # (Auto) (0.0-0.7) K/uL Baso # (Auto) (0.0-0.2) K/uL Puncture Site Rra pCO2 43 (35-45) mm/Hg pO2 106 H (80-100) mm/Hg HCO3 27.9 (21-28) mmol/L ABG pH 7.43 (7.35-7.45) ABG Total CO2 29.8 H (22-28) mmol/L ABG O2 Saturation 100.5 H (95-98) % ABG Base Excess 3.8 H (-2.0-3.0) mmol/L ABG Hemoglobin 8.4 L (11.7-17.4) g/dL ABG Carboxyhemoglobin 3.0 H (0.5-1.5) % POC ABG HHb (Measured) -0.5 L (0.0-5.0) % ABG Methemoglobin 1.1 (0.0-3.0) % Rei Test Po ABG Potassium (3.6-5.2) mmol/L A-a O2 Difference 339.0 mm/Hg Respiratory Index 3.2 Hgb O2 Saturation 96.5 (95.0-98.0) % Glucose (75-110) mg/dl Lactate (0.7-2.1) mmol/L Vent Mode Bipap Mechanical Rate FiO2 70.0 % Inspiratory BiPAP 16 Expiratory BiPAP 6 Sodium 130 L (132-148) mmol/L Potassium 3.6 (3.6-5.2) mmol/L Chloride 96 L (98-107) mmol/L Carbon Dioxide 28 (22-30) mmol/L Anion Gap 9 L (10-20) BUN 12 (9-20) mg/dL Creatinine 0.6 L (0.8-1.5) mg/dL Est GFR ( Amer) > 60 Est GFR (Non-Af Amer) > 60 Random Glucose 79 (75-110) mg/dL Calcium 6.3 L (8.6-10.4) mg/dl Phosphorus 1.5 L (2.5-4.5) mg/dL Magnesium 2.1 (1.6-2.3) mg/dL Total Bilirubin 8.2 H (0.2-1.3) mg/dL AST 298 H (17-59) U/L ALT 66 (21-72) U/L Alkaline Phosphatase 124 (38-126) U/L Total Protein 5.9 L (6.3-8.3) g/dL Albumin 2.2 L (3.5-5.0) g/dL Globulin 3.7 (2.2-3.9) gm/dL Albumin/Globulin Ratio 0.6 L (1.0-2.1) Arterial Blood Potassium (3.6-5.2) mmol/L Vancomycin Trough 11.5 H (5.0-10.0) ug/mL 03/02/18 03/02/18 03/02/18 Range/Units 05:30 04:40 00:30 WBC 8.2 (4.8-10.8) K/uL RBC 2.25 L (4.40-5.90) Mil/uL Hgb 7.5 L (12.0-18.0) g/dL Hct 21.9 L (35.0-51.0) % MCV 97.2 H D (80.0-94.0) fL MCH 33.3 H (27.0-31.0) pg MCHC 34.3 (33.0-37.0) g/dL RDW 18.8 H (11.5-14.5) % Plt Count 63 L (130-400) K/uL MPV 9.4 (7.2-11.7) fL Neut % (Auto) 80.1 H (50.0-75.0) % Lymph % (Auto) 10.1 L (20.0-40.0) % [place] % (Auto) 8.1 (0.0-10.0) % Eos % (Auto) 0.9 (0.0-4.0) % Baso % (Auto) 0.8 (0.0-2.0) % Neut # (Auto) 6.6 (1.8-7.0) K/uL Lymph # (Auto) 0.8 L (1.0-4.3) K/uL [place] # (Auto) 0.7 (0.0-0.8) K/uL Eos # (Auto) 0.1 (0.0-0.7) K/uL Baso # (Auto) 0.1 (0.0-0.2) K/uL Puncture Site Rb Rb pCO2 31 L 55 H (35-45) mm/Hg pO2 231 H 82 (80-100) mm/Hg HCO3 25.8 25.2 (21-28) mmol/L ABG pH 7.49 H 7.31 L (7.35-7.45) ABG Total CO2 24.6 29.4 H (22-28) mmol/L ABG O2 Saturation 101.1 H 98.5 H (95-98) % ABG Base Excess 1.0 0.4 (-2.0-3.0) mmol/L ABG Hemoglobin (11.7-17.4) g/dL ABG Carboxyhemoglobin (0.5-1.5) % POC ABG HHb (Measured) (0.0-5.0) % ABG Methemoglobin (0.0-3.0) % Rei Test Na Na ABG Potassium 2.7 L 3.1 L (3.6-5.2) mmol/L A-a O2 Difference 443.0 562.0 mm/Hg Respiratory Index 1.9 6.9 Hgb O2 Saturation (95.0-98.0) % Glucose 64 L 73 L (75-110) mg/dl Lactate 0.9 1.0 (0.7-2.1) mmol/L Vent Mode Bipap Non rebreather Mechanical Rate 16 FiO2 100.0 100.0 % Inspiratory BiPAP 12 Expiratory BiPAP 6 Sodium 137.0 131.0 L (132-148) mmol/L Potassium (3.6-5.2) mmol/L Chloride 109.0 H 99.0 (98-107) mmol/L Carbon Dioxide (22-30) mmol/L Anion Gap (10-20) BUN (9-20) mg/dL Creatinine (0.8-1.5) mg/dL Est GFR ( Amer) Est GFR (Non-Af Amer) Random Glucose (75-110) mg/dL Calcium (8.6-10.4) mg/dl Phosphorus (2.5-4.5) mg/dL Magnesium (1.6-2.3) mg/dL Total Bilirubin (0.2-1.3) mg/dL AST (17-59) U/L ALT (21-72) U/L Alkaline Phosphatase (38-126) U/L Total Protein (6.3-8.3) g/dL Albumin (3.5-5.0) g/dL Globulin (2.2-3.9) gm/dL Albumin/Globulin Ratio (1.0-2.1) Arterial Blood Potassium 2.7 L 3.1 L (3.6-5.2) mmol/L Vancomycin Trough (5.0-10.0) ug/mL 03/01/18 Range/Units 18:10 WBC (4.8-10.8) K/uL RBC (4.40-5.90) Mil/uL Hgb (12.0-18.0) g/dL Hct (35.0-51.0) % MCV (80.0-94.0) fL MCH (27.0-31.0) pg MCHC (33.0-37.0) g/dL RDW (11.5-14.5) % Plt Count (130-400) K/uL MPV (7.2-11.7) fL Neut % (Auto) (50.0-75.0) % Lymph % (Auto) (20.0-40.0) % [place] % (Auto) (0.0-10.0) % Eos % (Auto) (0.0-4.0) % Baso % (Auto) (0.0-2.0) % Neut # (Auto) (1.8-7.0) K/uL Lymph # (Auto) (1.0-4.3) K/uL [place] # (Auto) (0.0-0.8) K/uL Eos # (Auto) (0.0-0.7) K/uL Baso # (Auto) (0.0-0.2) K/uL Puncture Site pCO2 (35-45) mm/Hg pO2 (80-100) mm/Hg HCO3 (21-28) mmol/L ABG pH (7.35-7.45) ABG Total CO2 (22-28) mmol/L ABG O2 Saturation (95-98) % ABG Base Excess (-2.0-3.0) mmol/L ABG Hemoglobin (11.7-17.4) g/dL ABG Carboxyhemoglobin (0.5-1.5) % POC ABG HHb (Measured) (0.0-5.0) % ABG Methemoglobin (0.0-3.0) % Rei Test ABG Potassium (3.6-5.2) mmol/L A-a O2 Difference mm/Hg Respiratory Index Hgb O2 Saturation (95.0-98.0) % Glucose (75-110) mg/dl Lactate (0.7-2.1) mmol/L Vent Mode Mechanical Rate FiO2 % Inspiratory BiPAP Expiratory BiPAP Sodium 130 L (132-148) mmol/L Potassium 5.0 (3.6-5.2) mmol/L Chloride 93 L (98-107) mmol/L Carbon Dioxide 29 (22-30) mmol/L Anion Gap 14 (10-20) BUN 8 L (9-20) mg/dL Creatinine 0.6 L (0.8-1.5) mg/dL Est GFR ( Amer) > 60 Est GFR (Non-Af Amer) > 60 Random Glucose 83 (75-110) mg/dL Calcium 6.5 L (8.6-10.4) mg/dl Phosphorus 5.3 H (2.5-4.5) mg/dL Magnesium 2.0 (1.6-2.3) mg/dL Total Bilirubin 9.3 H (0.2-1.3) mg/dL AST 360 H (17-59) U/L ALT 79 H (21-72) U/L Alkaline Phosphatase 136 H (38-126) U/L Total Protein 6.4 (6.3-8.3) g/dL Albumin 2.5 L (3.5-5.0) g/dL Globulin 3.9 (2.2-3.9) gm/dL Albumin/Globulin Ratio 0.6 L (1.0-2.1) Arterial Blood Potassium (3.6-5.2) mmol/L Vancomycin Trough (5.0-10.0) ug/mL Laboratory Results - last 24 hr 03/01/18 03/02/18 03/02/18 18:10 00:30 04:40 WBC RBC Hgb Hct MCV MCH MCHC RDW Plt Count MPV Neut % (Auto) Lymph % (Auto) [place] % (Auto) Eos % (Auto) Baso % (Auto) Neut # (Auto) Lymph # (Auto) [place] # (Auto) Eos # (Auto) Baso # (Auto) Puncture Site Rb Rb pCO2 55 H 31 L pO2 82 231 H HCO3 25.2 25.8 ABG pH 7.31 L 7.49 H ABG Total CO2 29.4 H 24.6 ABG O2 Saturation 98.5 H 101.1 H ABG Base Excess 0.4 1.0 ABG Hemoglobin ABG Carboxyhemoglobin POC ABG HHb (Measured) ABG Methemoglobin Rei Test Na Na ABG Potassium 3.1 L 2.7 L A-a O2 Difference 562.0 443.0 Respiratory Index 6.9 1.9 Hgb O2 Saturation Glucose 73 L 64 L Lactate 1.0 0.9 Vent Mode Non rebreather Bipap Mechanical Rate 16 FiO2 100.0 100.0 Inspiratory BiPAP 12 Expiratory BiPAP 6 Sodium 130 L 131.0 L 137.0 Potassium 5.0 Chloride 93 L 99.0 109.0 H Carbon Dioxide 29 Anion Gap 14 BUN 8 L Creatinine 0.6 L Est GFR ( Amer) > 60 Est GFR (Non-Af Amer) > 60 Random Glucose 83 Calcium 6.5 L Phosphorus 5.3 H Magnesium 2.0 Total Bilirubin 9.3 H AST 360 H ALT 79 H Alkaline Phosphatase 136 H Total Protein 6.4 Albumin 2.5 L Globulin 3.9 Albumin/Globulin Ratio 0.6 L Arterial Blood Potassium 3.1 L 2.7 L Vancomycin Trough 03/02/18 03/02/18 03/02/18 05:30 05:30 10:06 WBC 8.2 RBC 2.25 L Hgb 7.5 L Hct 21.9 L MCV 97.2 H D MCH 33.3 H MCHC 34.3 RDW 18.8 H Plt Count 63 L MPV 9.4 Neut % (Auto) 80.1 H Lymph % (Auto) 10.1 L [place] % (Auto) 8.1 Eos % (Auto) 0.9 Baso % (Auto) 0.8 Neut # (Auto) 6.6 Lymph # (Auto) 0.8 L [place] # (Auto) 0.7 Eos # (Auto) 0.1 Baso # (Auto) 0.1 Puncture Site Rra pCO2 43 pO2 106 H HCO3 27.9 ABG pH 7.43 ABG Total CO2 29.8 H ABG O2 Saturation 100.5 H ABG Base Excess 3.8 H ABG Hemoglobin 8.4 L ABG Carboxyhemoglobin 3.0 H POC ABG HHb (Measured) -0.5 L ABG Methemoglobin 1.1 Rei Test Po ABG Potassium A-a O2 Difference 339.0 Respiratory Index 3.2 Hgb O2 Saturation 96.5 Glucose Lactate Vent Mode Bipap Mechanical Rate FiO2 70.0 Inspiratory BiPAP 16 Expiratory BiPAP 6 Sodium 130 L Potassium 3.6 Chloride 96 L Carbon Dioxide 28 Anion Gap 9 L BUN 12 Creatinine 0.6 L Est GFR ( Amer) > 60 Est GFR (Non-Af Amer) > 60 Random Glucose 79 Calcium 6.3 L Phosphorus 1.5 L Magnesium 2.1 Total Bilirubin 8.2 H AST 298 H ALT 66 Alkaline Phosphatase 124 Total Protein 5.9 L Albumin 2.2 L Globulin 3.7 Albumin/Globulin Ratio 0.6 L Arterial Blood Potassium Vancomycin Trough 03/02/18 16:17 WBC RBC Hgb Hct MCV MCH MCHC RDW Plt Count MPV Neut % (Auto) Lymph % (Auto) [place] % (Auto) Eos % (Auto) Baso % (Auto) Neut # (Auto) Lymph # (Auto) [place] # (Auto) Eos # (Auto) Baso # (Auto) Puncture Site pCO2 pO2 HCO3 ABG pH ABG Total CO2 ABG O2 Saturation ABG Base Excess ABG Hemoglobin ABG Carboxyhemoglobin POC ABG HHb (Measured) ABG Methemoglobin Rei Test ABG Potassium A-a O2 Difference Respiratory Index Hgb O2 Saturation Glucose Lactate Vent Mode Mechanical Rate FiO2 Inspiratory BiPAP Expiratory BiPAP Sodium Potassium Chloride Carbon Dioxide Anion Gap BUN Creatinine Est GFR ( Amer) Est GFR (Non-Af Amer) Random Glucose Calcium Phosphorus Magnesium Total Bilirubin AST ALT Alkaline Phosphatase Total Protein Albumin Globulin Albumin/Globulin Ratio Arterial Blood Potassium Vancomycin Trough 11.5 H Fingerstick Blood Sugar Results: 101 Review of Systems - Review of Systems Systems not reviewed;Unavailable: Altered Mental Status Critical Care Progress Note - Nutrition Nutrition: Nutrition Category Date Time Status Dysphagia/Modified Consistency Diet [DIET] Diets 02/28/18 Lunch Active Assessment/Plan - Assessment and Plan (Free Text) Assessment: Patient is a 57-year-old male with a past medical history of multiple visits to the ED for alcohol intoxication who presents to [facility] brought in by ambulance for alcohol intoxication. Of note, the patient is homeless and was found on someone else's property. While in the ED: chest x-ray was obtained and revealed right lower lobe infiltrates. Patient treated empirically CAP. CT head without contrast was obtained 02/27/18 and revealed small subdural hematoma. Patient currently arousable but is not oriented. Patient currently being monitored and treated in ICU. Neuro: - Neurology consulted; Dr. Loving; recommendations appreciated - Patient is altered - UDS positive for high levels of alcohol - Ammonia =9 - Start lactulose - Hyponatremia - Hypothermia: warming blankets; resolved - Urine Na, urine osm, serum osm, pending - 02/27/18 CT head without contrast: small subdural hematoma (see official report for more detail) - 02/27/18 CTA of head and neck: There is a tiny calcified plaque left carotid bifurcation; otherwise unremarkable; No evidence of anneurysm or vascular malformation - CIWA protocol - Start Precedex - Start NS @100 - Atival PRN - Hypoglycemia protocol - Banana bag completed - Neuro checks Q2 CV: - No acute issues - EKG obtained - nurse monitoring Pulm: - CXR 03/02: left lower lobe infiltrates - CT chest 02/28: * Per Official Report: Large right and moderate left pleural effusions and associated consolidations. Lingular infiltrates. Probable bulla in the right upper lobe however small loculated pneumothorax is not excluded. - Start empiric antibiotics for CAP - Monitor CBC with diff, ABG Renal: - Hyponatremia; NS @100 - Hypophosphatemia; replete as needed - Hypokalemia; replete as needed - Urine Na, urine osm, serum osm, pending - Monitor with CMP, Mg, Phos GI: - 02/27/18 Abd ultrasound obtained - 03/01/18 CT abdomen/Pelvis obtained - NG tube - NPO except meds - PPx: protonix 40mg IVP daily : - Monitor i/o - Intake: 2911mL - Output: 100mL - Balance: 2811mL ID: - Hepatitis panel negative - Empiric antibiotics for CAP - MRSA screen pending - Blood cultures: no growth x48hrs - Urine cultures: gram positive Cocci PPx: - GI: Protonix 40mg IVP daily - DVT: SCD contraindicated Patient seen and case discussed with Dr. Jesus Miller PGY1 <Jr Lee - Last Filed: 03/02/18 21:09> CCU Objective - Vital Signs / Intake & Output Vital Signs (Last 4 hours): Vital Signs Pulse Resp BP Pulse Ox 03/02/18 20:13 95 H 03/02/18 19:04 82 21 127/74 100 03/02/18 19:00 85 12 100 03/02/18 18:02 65 25 H 101/64 100 03/02/18 18:00 65 28 H 100 Intake and Output (Last 8hrs): Intake & Output 03/02/18 03/02/18 03/02/18 06:59 14:59 22:59 Intake Total 1080.4 880.4 841.5 Output Total 100 Balance 980.4 880.4 841.5 Weight 168 lb 8 oz Intake: IV 0 16 Intake, IV Amount 1080.4 880.4 825.5 Left Hand 800 800 500 Left Hand - Y-Port 250 50 316 Right Wrist 30.4 30.4 9.5 Output: Urine 100 Urine, Voided 100 Other: # Voids Urine, Voided 1 1 - Medications Active Medications: Active Medications Generic Name Dose Route Start Last Admin Trade Name Freq PRN Reason Stop Dose Admin Dextrose 0 gm 02/28/18 07:44 Glutose 15 PO ONCE PRN Hypoglycemia Protocol Protocol Glucagon 1 mg 02/28/18 07:44 Glucagen Diagnostic Kit IM STAT PRN Hypoglycemia Protocol Protocol Piperacillin Sod/Tazobactam Sod 3.375 gm in 50 mls @ 100 mls/hr 02/27/18 16:00 03/02/18 16:19 Zosyn 3.375 Gm Iv Premix IVPB 100 mls/hr Q6H ASHLEIGH Administration Protocol Vancomycin/Sodium Chloride 1 gm in 200 mls @ 133.333 mls/hr 02/27/18 16:00 03/02/18 17:13 Vancomycin 1 Gm/Ns 200 Ml IVPB 03/04/18 16:01 133.333 mls/hr Q12H ASHLEIGH Administration Protocol Dextrose 1,000 mls @ 0 mls/hr 02/28/18 07:44 Dextrose 5% In Water 1000 Ml IV .Q0M PRN Hypoglycemia Protocol Protocol Per Protocol Dexmedetomidine HCl 200 mcg/ 50 mls @ 3.79 mls/hr 03/01/18 16:36 03/02/18 15:30 Sodium Chloride IV 0.1 mcg/kg/hr TITR PRN 1.9 mls/hr Agitation Titration Protocol 0.2 MCG/KG/HR Sodium Chloride 1,000 mls @ 100 mls/hr 03/01/18 18:15 03/02/18 14:31 Sodium Chloride 0.9% IV Not Given .Q10H ASHLEIGH Lactobacillus Acidophilus 1 cap 02/28/18 10:00 03/02/18 17:14 Bacid Acidophilus PO Not Given BID ASHLEIGH Lorazepam 1 mg 02/28/18 17:30 03/02/18 13:18 Ativan PO 03/05/18 13:09 Not Given Q8H ASHLEIGH Taper Lorazepam 1 mg 02/28/18 17:20 02/28/18 22:09 Ativan IVP 1 mg Q6H PRN Administration Agitation Pantoprazole Sodium 40 mg 02/28/18 10:00 03/02/18 09:35 Protonix Inj IVP 40 mg DAILY ASHLEIGH Administration - Patient Studies Lab Studies: Microbiology Studies 02/27/18 13:57 Blood Culture - Preliminary Blood NO GROWTH AFTER 3 DAYS 02/27/18 12:51 Urine Culture - Final Urine Enterococcus Faecalis 02/27/18 12:58 Blood Culture - Preliminary Blood NO GROWTH AFTER 3 DAYS Lab Studies 03/02/18 03/02/18 03/02/18 Range/Units 16:17 10:06 05:30 WBC (4.8-10.8) K/uL RBC (4.40-5.90) Mil/uL Hgb (12.0-18.0) g/dL Hct (35.0-51.0) % MCV (80.0-94.0) fL MCH (27.0-31.0) pg MCHC (33.0-37.0) g/dL RDW (11.5-14.5) % Plt Count (130-400) K/uL MPV (7.2-11.7) fL Neut % (Auto) (50.0-75.0) % Lymph % (Auto) (20.0-40.0) % [place] % (Auto) (0.0-10.0) % Eos % (Auto) (0.0-4.0) % Baso % (Auto) (0.0-2.0) % Neut # (Auto) (1.8-7.0) K/uL Lymph # (Auto) (1.0-4.3) K/uL [place] # (Auto) (0.0-0.8) K/uL Eos # (Auto) (0.0-0.7) K/uL Baso # (Auto) (0.0-0.2) K/uL Puncture Site Rra pCO2 43 (35-45) mm/Hg pO2 106 H (80-100) mm/Hg HCO3 27.9 (21-28) mmol/L ABG pH 7.43 (7.35-7.45) ABG Total CO2 29.8 H (22-28) mmol/L ABG O2 Saturation 100.5 H (95-98) % ABG Base Excess 3.8 H (-2.0-3.0) mmol/L ABG Hemoglobin 8.4 L (11.7-17.4) g/dL ABG Carboxyhemoglobin 3.0 H (0.5-1.5) % POC ABG HHb (Measured) -0.5 L (0.0-5.0) % ABG Methemoglobin 1.1 (0.0-3.0) % Rei Test Po ABG Potassium (3.6-5.2) mmol/L A-a O2 Difference 339.0 mm/Hg Respiratory Index 3.2 Hgb O2 Saturation 96.5 (95.0-98.0) % Sodium 130 L (132-148) mmol/l Chloride 96 L (98-107) mmol/L Glucose (75-110) mg/dl Lactate (0.7-2.1) mmol/L Vent Mode Bipap Mechanical Rate FiO2 70.0 % Inspiratory BiPAP 16 Expiratory BiPAP 6 Potassium 3.6 (3.6-5.2) mmol/L Carbon Dioxide 28 (22-30) mmol/L Anion Gap 9 L (10-20) BUN 12 (9-20) mg/dL Creatinine 0.6 L (0.8-1.5) mg/dL Est GFR ( Amer) > 60 Est GFR (Non-Af Amer) > 60 Random Glucose 79 (75-110) mg/dL Calcium 6.3 L (8.6-10.4) mg/dl Phosphorus 1.5 L (2.5-4.5) mg/dL Magnesium 2.1 (1.6-2.3) mg/dL Total Bilirubin 8.2 H (0.2-1.3) mg/dL AST 298 H (17-59) U/L ALT 66 (21-72) U/L Alkaline Phosphatase 124 (38-126) U/L Total Protein 5.9 L (6.3-8.3) g/dL Albumin 2.2 L (3.5-5.0) g/dL Globulin 3.7 (2.2-3.9) gm/dL Albumin/Globulin Ratio 0.6 L (1.0-2.1) Arterial Blood Potassium (3.6-5.2) mmol/L Vancomycin Trough 11.5 H (5.0-10.0) ug/mL Mycoplasma pneumon IgG (<=0.90) 03/02/18 03/02/18 03/02/18 Range/Units 05:30 04:40 00:30 WBC 8.2 (4.8-10.8) K/uL RBC 2.25 L (4.40-5.90) Mil/uL Hgb 7.5 L (12.0-18.0) g/dL Hct 21.9 L (35.0-51.0) % MCV 97.2 H D (80.0-94.0) fL MCH 33.3 H (27.0-31.0) pg MCHC 34.3 (33.0-37.0) g/dL RDW 18.8 H (11.5-14.5) % Plt Count 63 L (130-400) K/uL MPV 9.4 (7.2-11.7) fL Neut % (Auto) 80.1 H (50.0-75.0) % Lymph % (Auto) 10.1 L (20.0-40.0) % [place] % (Auto) 8.1 (0.0-10.0) % Eos % (Auto) 0.9 (0.0-4.0) % Baso % (Auto) 0.8 (0.0-2.0) % Neut # (Auto) 6.6 (1.8-7.0) K/uL Lymph # (Auto) 0.8 L (1.0-4.3) K/uL [place] # (Auto) 0.7 (0.0-0.8) K/uL Eos # (Auto) 0.1 (0.0-0.7) K/uL Baso # (Auto) 0.1 (0.0-0.2) K/uL Puncture Site Rb Rb pCO2 31 L 55 H (35-45) mm/Hg pO2 231 H 82 (80-100) mm/Hg HCO3 25.8 25.2 (21-28) mmol/L ABG pH 7.49 H 7.31 L (7.35-7.45) ABG Total CO2 24.6 29.4 H (22-28) mmol/L ABG O2 Saturation 101.1 H 98.5 H (95-98) % ABG Base Excess 1.0 0.4 (-2.0-3.0) mmol/L ABG Hemoglobin (11.7-17.4) g/dL ABG Carboxyhemoglobin (0.5-1.5) % POC ABG HHb (Measured) (0.0-5.0) % ABG Methemoglobin (0.0-3.0) % Rei Test Na Na ABG Potassium 2.7 L 3.1 L (3.6-5.2) mmol/L A-a O2 Difference 443.0 562.0 mm/Hg Respiratory Index 1.9 6.9 Hgb O2 Saturation (95.0-98.0) % Sodium 137.0 131.0 L (132-148) mmol/l Chloride 109.0 H 99.0 (98-107) mmol/L Glucose 64 L 73 L (75-110) mg/dl Lactate 0.9 1.0 (0.7-2.1) mmol/L Vent Mode Bipap Non rebreather Mechanical Rate 16 FiO2 100.0 100.0 % Inspiratory BiPAP 12 Expiratory BiPAP 6 Potassium (3.6-5.2) mmol/L Carbon Dioxide (22-30) mmol/L Anion Gap (10-20) BUN (9-20) mg/dL Creatinine (0.8-1.5) mg/dL Est GFR ( Amer) Est GFR (Non-Af Amer) Random Glucose (75-110) mg/dL Calcium (8.6-10.4) mg/dl Phosphorus (2.5-4.5) mg/dL Magnesium (1.6-2.3) mg/dL Total Bilirubin (0.2-1.3) mg/dL AST (17-59) U/L ALT (21-72) U/L Alkaline Phosphatase (38-126) U/L Total Protein (6.3-8.3) g/dL Albumin (3.5-5.0) g/dL Globulin (2.2-3.9) gm/dL Albumin/Globulin Ratio (1.0-2.1) Arterial Blood Potassium 2.7 L 3.1 L (3.6-5.2) mmol/L Vancomycin Trough (5.0-10.0) ug/mL Mycoplasma pneumon IgG (<=0.90) 02/28/18 Range/Units 06:59 WBC (4.8-10.8) K/uL RBC (4.40-5.90) Mil/uL Hgb (12.0-18.0) g/dL Hct (35.0-51.0) % MCV (80.0-94.0) fL MCH (27.0-31.0) pg MCHC (33.0-37.0) g/dL RDW (11.5-14.5) % Plt Count (130-400) K/uL MPV (7.2-11.7) fL Neut % (Auto) (50.0-75.0) % Lymph % (Auto) (20.0-40.0) % [place] % (Auto) (0.0-10.0) % Eos % (Auto) (0.0-4.0) % Baso % (Auto) (0.0-2.0) % Neut # (Auto) (1.8-7.0) K/uL Lymph # (Auto) (1.0-4.3) K/uL [place] # (Auto) (0.0-0.8) K/uL Eos # (Auto) (0.0-0.7) K/uL Baso # (Auto) (0.0-0.2) K/uL Puncture Site pCO2 (35-45) mm/Hg pO2 (80-100) mm/Hg HCO3 (21-28) mmol/L ABG pH (7.35-7.45) ABG Total CO2 (22-28) mmol/L ABG O2 Saturation (95-98) % ABG Base Excess (-2.0-3.0) mmol/L ABG Hemoglobin (11.7-17.4) g/dL ABG Carboxyhemoglobin (0.5-1.5) % POC ABG HHb (Measured) (0.0-5.0) % ABG Methemoglobin (0.0-3.0) % Rei Test ABG Potassium (3.6-5.2) mmol/L A-a O2 Difference mm/Hg Respiratory Index Hgb O2 Saturation (95.0-98.0) % Sodium (132-148) mmol/l Chloride (98-107) mmol/L Glucose (75-110) mg/dl Lactate (0.7-2.1) mmol/L Vent Mode Mechanical Rate FiO2 % Inspiratory BiPAP Expiratory BiPAP Potassium (3.6-5.2) mmol/L Carbon Dioxide (22-30) mmol/L Anion Gap (10-20) BUN (9-20) mg/dL Creatinine (0.8-1.5) mg/dL Est GFR ( Amer) Est GFR (Non-Af Amer) Random Glucose (75-110) mg/dL Calcium (8.6-10.4) mg/dl Phosphorus (2.5-4.5) mg/dL Magnesium (1.6-2.3) mg/dL Total Bilirubin (0.2-1.3) mg/dL AST (17-59) U/L ALT (21-72) U/L Alkaline Phosphatase (38-126) U/L Total Protein (6.3-8.3) g/dL Albumin (3.5-5.0) g/dL Globulin (2.2-3.9) gm/dL Albumin/Globulin Ratio (1.0-2.1) Arterial Blood Potassium (3.6-5.2) mmol/L Vancomycin Trough (5.0-10.0) ug/mL Mycoplasma pneumon IgG 1.41 H (<=0.90) Laboratory Results - last 24 hr 02/28/18 03/02/18 03/02/18 06:59 00:30 04:40 WBC RBC Hgb Hct MCV MCH MCHC RDW Plt Count MPV Neut % (Auto) Lymph % (Auto) [place] % (Auto) Eos % (Auto) Baso % (Auto) Neut # (Auto) Lymph # (Auto) [place] # (Auto) Eos # (Auto) Baso # (Auto) Puncture Site Rb Rb pCO2 55 H 31 L pO2 82 231 H HCO3 25.2 25.8 ABG pH 7.31 L 7.49 H ABG Total CO2 29.4 H 24.6 ABG O2 Saturation 98.5 H 101.1 H ABG Base Excess 0.4 1.0 ABG Hemoglobin ABG Carboxyhemoglobin POC ABG HHb (Measured) ABG Methemoglobin Rei Test Na Na ABG Potassium 3.1 L 2.7 L A-a O2 Difference 562.0 443.0 Respiratory Index 6.9 1.9 Hgb O2 Saturation Sodium 131.0 L 137.0 Chloride 99.0 109.0 H Glucose 73 L 64 L Lactate 1.0 0.9 Vent Mode Non rebreather Bipap Mechanical Rate 16 FiO2 100.0 100.0 Inspiratory BiPAP 12 Expiratory BiPAP 6 Potassium Carbon Dioxide Anion Gap BUN Creatinine Est GFR ( Amer) Est GFR (Non-Af Amer) Random Glucose Calcium Phosphorus Magnesium Total Bilirubin AST ALT Alkaline Phosphatase Total Protein Albumin Globulin Albumin/Globulin Ratio Arterial Blood Potassium 3.1 L 2.7 L Vancomycin Trough Mycoplasma pneumon IgG 1.41 H 03/02/18 03/02/18 03/02/18 05:30 05:30 10:06 WBC 8.2 RBC 2.25 L Hgb 7.5 L Hct 21.9 L MCV 97.2 H D MCH 33.3 H MCHC 34.3 RDW 18.8 H Plt Count 63 L MPV 9.4 Neut % (Auto) 80.1 H Lymph % (Auto) 10.1 L [place] % (Auto) 8.1 Eos % (Auto) 0.9 Baso % (Auto) 0.8 Neut # (Auto) 6.6 Lymph # (Auto) 0.8 L [place] # (Auto) 0.7 Eos # (Auto) 0.1 Baso # (Auto) 0.1 Puncture Site Rra pCO2 43 pO2 106 H HCO3 27.9 ABG pH 7.43 ABG Total CO2 29.8 H ABG O2 Saturation 100.5 H ABG Base Excess 3.8 H ABG Hemoglobin 8.4 L ABG Carboxyhemoglobin 3.0 H POC ABG HHb (Measured) -0.5 L ABG Methemoglobin 1.1 Rei Test Po ABG Potassium A-a O2 Difference 339.0 Respiratory Index 3.2 Hgb O2 Saturation 96.5 Sodium 130 L Chloride 96 L Glucose Lactate Vent Mode Bipap Mechanical Rate FiO2 70.0 Inspiratory BiPAP 16 Expiratory BiPAP 6 Potassium 3.6 Carbon Dioxide 28 Anion Gap 9 L BUN 12 Creatinine 0.6 L Est GFR ( Amer) > 60 Est GFR (Non-Af Amer) > 60 Random Glucose 79 Calcium 6.3 L Phosphorus 1.5 L Magnesium 2.1 Total Bilirubin 8.2 H AST 298 H ALT 66 Alkaline Phosphatase 124 Total Protein 5.9 L Albumin 2.2 L Globulin 3.7 Albumin/Globulin Ratio 0.6 L Arterial Blood Potassium Vancomycin Trough Mycoplasma pneumon IgG 03/02/18 16:17 WBC RBC Hgb Hct MCV MCH MCHC RDW Plt Count MPV Neut % (Auto) Lymph % (Auto) [place] % (Auto) Eos % (Auto) Baso % (Auto) Neut # (Auto) Lymph # (Auto) [place] # (Auto) Eos # (Auto) Baso # (Auto) Puncture Site pCO2 pO2 HCO3 ABG pH ABG Total CO2 ABG O2 Saturation ABG Base Excess ABG Hemoglobin ABG Carboxyhemoglobin POC ABG HHb (Measured) ABG Methemoglobin Rei Test ABG Potassium A-a O2 Difference Respiratory Index Hgb O2 Saturation Sodium Chloride Glucose Lactate Vent Mode Mechanical Rate FiO2 Inspiratory BiPAP Expiratory BiPAP Potassium Carbon Dioxide Anion Gap BUN Creatinine Est GFR ( Amer) Est GFR (Non-Af Amer) Random Glucose Calcium Phosphorus Magnesium Total Bilirubin AST ALT Alkaline Phosphatase Total Protein Albumin Globulin Albumin/Globulin Ratio Arterial Blood Potassium Vancomycin Trough 11.5 H Mycoplasma pneumon IgG Critical Care Progress Note - Nutrition Nutrition: Nutrition Category Date Time Status Dysphagia/Modified Consistency Diet [DIET] Diets 02/28/18 Lunch Active Attending/Attestation - Attestation I have personally seen and examined this patient.: Yes I have fully participated in the care of the patient.: Yes I have reviewed all pertinent clinical information: Yes Notes (Text): 03/02/18 21:09 Today: February The Patient was seen and examined at the bedside, Medical records reviewed, and management issues were discussed and formulated with the house staff. I have reviewed all the relevant clinical, laboratory, hemodynamic, radiographic data and medications Events reviewed Pain issues, skin care, head of the bed elevation, glycemic control were addressed. Agree with above resident's assessment and treatment plans of care as transcribed in Dr. Miller's note.
[2018-03-03] MEDS: Vancomycin 1 gm/NS 200 ml 1 GM/200 ML BAG IVPB SCH ×3 (04:02→19:11)
[2018-03-03] MEDS: Piperacill/Tazo 3.375gm in Dex 3.375 GM/50 ML BAG IVPB SCH ×4 (04:02→21:56)
[2018-03-03 06:21] LABS: BASO % 0.3 % (0.0-2.0); EOS # 0.1 K/uL (0.0-0.7); EOS % 1.3 % (0.0-4.0); HEMOGLOBIN 6.8 g/dL (12.0-18.0); LYMPH # 0.5 K/uL (1.0-4.3); LYMPH % 8.3 % (20.0-40.0); MEAN CELL VOLUME 98.6 fL (80.0-94.0); MEAN CORPUSCULAR HEMOGLOBIN 33.7 pg (27.0-31.0); MEAN CORPUSCULAR HGB CONC 34.2 g/dL (33.0-37.0); MEAN PLATELET VOLUME 9.6 fL (7.2-11.7); MONO # 0.7 K/uL (0.0-0.8); MONO % 10.1 % (0.0-10.0); NEUT # 5.3 K/uL (1.8-7.0); NRBC % 0.3 % (0.0-2.0); PLATELET COUNT 51 K/uL (130-400); RBC 2.02 Mil/uL (4.40-5.90); RED CELL DISTRIBUTION WIDTH 18.6 % (11.5-14.5); WHITE BLOOD COUNT 6.6 K/uL (4.8-10.8)
[2018-03-03] MEDS: Dexmedetomidine Hydrochloride 200 MCG in Sodium Chloride 0.9% 48 ML IV PRN ×2 (06:41→18:32)
[2018-03-03 06:44] LABS: ALB/GLOB RATIO 0.5 (1.0-2.1); ALBUMIN 2.1 g/dL (3.5-5.0); ALT/SGPT 52 U/L (21-72); AST/SGOT 199 U/L (17-59); BLOOD UREA NITROGEN 9 mg/dL (9-20); CALCIUM 5.2 mg/dl (8.6-10.4); GFR NON-AFRICAN AMERICAN > 60
[2018-03-03] MEDS ORDERED: Potassium Chloride 20 mEq/15 ml LIQ UD PO ONE (07:50)
[2018-03-03] MEDS ORDERED: Potassium & Sodium Phosphate PO ONE (08:00)
--- NOTE | 2018-03-03 08:23 | CP.PCM.PN ---
Subjective - Date & Time of Evaluation Date of Evaluation: 03/03/18 Time of Evaluation: 08:10 - Subjective Subjective: Medical Attending Note: Discussed with RN, patient had increased agitation overnight. Patient is on Precedex and Ativan PRN. Patient is lethargic at bedside but responds to name. No family at bedside. Patient is supplemental oxygen. Objective - Vital Signs/Intake and Output Vital Signs (last 24 hours): Temp Pulse Resp BP Pulse Ox 97.4 F L 102 H 15 125/70 97 03/03/18 04:00 03/03/18 07:03 03/03/18 07:03 03/03/18 07:03 03/03/18 07:03 Intake and Output: 03/03/18 03/03/18 06:59 18:59 Intake Total 1436.1 105.7 Balance 1436.1 105.7 - Medications Medications: Current Medications Dextrose (Glutose 15) 0 gm PO ONCE PRN; Protocol PRN Reason: Hypoglycemia Protocol Glucagon (Glucagen Diagnostic Kit) 1 mg IM STAT PRN; Protocol PRN Reason: Hypoglycemia Protocol Piperacillin Sod/Tazobactam Sod (Zosyn 3.375 Gm Iv Premix) 3.375 gm in 50 mls @ 100 mls/hr IVPB Q6H A[facility]; Protocol Last Admin: 03/03/18 04:02 Dose: 100 mls/hr Vancomycin/Sodium Chloride (Vancomycin 1 Gm/Ns 200 Ml) 1 gm in 200 mls @ 133.333 mls/hr IVPB Q12H A[facility]LE[facility]; Protocol Stop: 03/04/18 16:01 Last Admin: 03/03/18 04:02 Dose: 133.333 mls/hr Dextrose (Dextrose 5% In Water 1000 Ml) 1,000 mls @ 0 mls/hr IV .Q0M PRN; Protocol PRN Reason: Hypoglycemia Protocol Dexmedetomidine HCl 200 mcg/ (Sodium Chloride) 50 mls @ 3.79 mls/hr IV TITR PRN; Protocol PRN Reason: Agitation Last Admin: 03/03/18 06:41 Dose: 0.3 mcg/kg/hr, 5.69 mls/hr Sodium Chloride (Sodium Chloride 0.9%) 1,000 mls @ 100 mls/hr IV .Q10H [facility] Last Admin: 03/02/18 23:20 Dose: 100 mls/hr Potassium Chloride (Potassium Chloride 20 Meq/100 Ml) 20 meq in 100 mls @ 50 mls/hr IVPB ONCE ONE Stop: 03/03/18 09:46 Lactobacillus Acidophilus (Bacid Acidophilus) 1 cap PO BID A[facility]LEIGH Last Admin: 03/02/18 17:14 Dose: Not Given Lorazepam (Ativan) 1 mg PO Q8H ASHLEIGH; Taper Stop: 03/05/18 13:09 Last Admin: 03/03/18 04:47 Dose: Not Given Lorazepam (Ativan) 1 mg IVP Q6H PRN PRN Reason: Agitation Last Admin: 03/03/18 01:24 Dose: 1 mg Pantoprazole Sodium (Protonix Inj) 40 mg IVP DAILY A[facility]IGH Last Admin: 03/02/18 09:35 Dose: 40 mg - Labs Labs: 03/03/18 06:12 03/03/18 06:12 PT 19.9 SECONDS (9.7-12.2) H D 02/28/18 07:14 INR 1.8 D 02/28/18 07:14 APTT 40 SECONDS (21-34) H 02/27/18 12:58 - Constitutional Appears: Non-toxic, No Acute Distress, Chronically Ill - Head Exam Head Exam: NORMAL INSPECTION - Eye Exam Eye Exam: EOMI, PERRL. absent: Nystagmus Pupil Exam: PERRL - ENT Exam ENT Exam: Mucous Membranes Dry - Respiratory Exam Respiratory Exam: Decreased Breath Sounds, NORMAL BREATHING PATTERN. absent: Stridor - Cardiovascular Exam Cardiovascular Exam: REGULAR RHYTHM, +S1, +S2 - GI/Abdominal Exam GI & Abdominal Exam: Soft, Normal Bowel Sounds. absent: Distended, Firm, Guarding, Rigid, Tenderness, Rebound Additional comments: +pitting edema on the abdomen - Extremities Exam Extremities Exam: Pedal Edema (pitting edema b/l., chronic venous stasis changes b/l) - Neurological Exam Neurological Exam: Awake - Skin Skin Exam: Dry, Intact, Warm Additional comments: chronic venous stasis changes b/l Assessment and Plan (1) Subdural hemorrhage Status: Acute (2) Pneumonia Status: Acute (3) Sepsis Status: Acute (4) Alcohol abuse Status: Acute (5) Chronic venous stasis dermatitis Status: Acute (6) Electrolyte imbalance Status: Acute (7) Prophylactic measure Status: Acute Attending/Attestation - Attestation I have personally seen and examined this patient.: Yes I have fully participated in the care of the patient.: Yes I have reviewed all pertinent clinical information, including history, physical exam and plan: Yes Notes (Text): 1). RLL Infiltrate/Bilateral Pleural Effusions (Large on Right and Moderate on Left) Urinary Tract Infection * CT Chest 02/28/18: large right and moderate left pleural effusions and associated consolidations, lingular infiltrate, probable bulla in the right upper lobe however small loculated penumothorax is not excluded, severe diffuse hepatic steatotosis, question hepatic mass versus more focal fatty infiltration involving a large region of the medial upper liver, small perhepatic and persplenic ascites. * Pending CT Chest (03/03) * Vancomycin 1 gm IV Q12H (02/27/18-present); 11.6 * Zosyn 3.375 gm IV Q6H (02/27/18-present) * Blood Culture 02/27/18: negative to date * Urine Culture 02/27/18: Enterococcus Faecalis sensitive to Vancomycin * Pending Myocplasma IGM: * Legionella: negative * HIV nonreactive 2). Low K, Low Phos, Low Mag * Being repleted * Patient ordered for repletion today * Monitor 3). Hypothermia * Tmax: 97.2 * on admission as low as 84F 4). Subdural Hematoma * Neurology (Dr. Loving) on board * Neurosurgery (Dr. Schmitt) on board * CT Head 02/28/18 x 2: small left sided subdural hematoma which has increased in size slightly, small right sided hygroma, mild mass effect with compression of both cerebral hemispheres, mild chronic periventricular white matter ischemic changes, mild generalized volume loss * CT Head and Neck 02/27/18: tiny calcified plaque left carotid bifurcation, NO evidence of large aneurysm/vascular malformation * Seen by Neurosurgery Dr. Coleman 02/18/18: no surgical intervention warranted and will need repeat CT Head in 1 week * CT head (03/02/18): previously noted small left sided acute subdural hematoma has continues to undergo evoluation and now appeats hyodense small but very slightly larger right sided subudral hygroma or chronic subdural hematoma. Extra axial collections continue to exert nerly symmetic mass effect on both cerebral hemispheres with compressions of overlying sulci and ventricles * Repeat CT head given drop in hemoglobin 5). Alcohol Abuse Cirrhosis * Upon exam 02/28/18: evidence of tremors of the upper body, aware of month and year and president * Patient is on Precedex and PRN ativan * d/c ativan taper to prevent oversedation * Abdominal US: nodular hepatic contour consistent with cirrhosis. Echogenic liver may be seen in setting of hepatic parenchymal disease of fatty infiltation, small ascites, gallstones. * Monitor * Ammonia on admission normal * Folic acid 1mg PO daily * Thiamine 100mg PO BID * MVI 1 tab PO daily 6). Anemia Likely Secondary to Hx Alcohol Abuse * Monitor HgB/Hct * Vitamin B12 normal at 856 * Folate normal at 3.3 * Iron Studies: Total Iron at 117, % Saturation 55, Ferritin 689, TIBC low at 212 * Patient is Cirrhotic per Ab US 7). Thrombocytopenia Likely Secondary to Hx Alcohol Abuse * Downtrending * Has not received anticoagulation secondary to subdural hematoma * patient is cirrhotic per US 8). Elevated LFTs Likely Secondary to Hx Alcohol Abuse * Abdominal U/S 02/27/18: nodular hepatic contour consistent with cirrhosis, echogenic liver may be seen in the setting of hepatic parynchymal disease or fatty infiltration, small ascites, gallstones * Hepatitis Panel 02/27/18: negative * HIV 4th Generation 02/27/18: negative 9). Hyponatremia * Improved by 9 over 24 hours * SIADH vs. Adrenal Insufficiency vs. Hyponatremia vs Hyperprolactinemia * Urine Osmolalilty normal at 455 * Urine Na low <5 * TSH, Free T4 are normal * AM Cortisol 02/28/18 is elevated at 44.5 * Prolactin Level is elevated 21.3 * Triglycerides elevated at 193 * Please note that although the labs (Urine Osm and Urine Na does not indicated SIADH, considering the Subdural Hematoma and the fact that patient was already being treated prior to these labs being drawn SIADH is still a possibility) * patient was on IV fluids from 03/01-03/03 dc in light increase of 9 in 24 hours * Repeat serum osmolarity, urine osmolarity, urine sodium 10). Elevated CPK * normal at 133 11). Prophylaxis * NO anticoagulation considering the Subdural Hematoma, Anemia, Thrombocytopenia * NO SCDs until results of Venoud Duplex are known * NO PPI/H2 Antagonists indicated at this time * F/U Venous Duplex of Bilateral LE ordered on 02/28/18: prelim read Pending official repeat of CT head, CT chest (03/03) Monitor repeat electrolytes Pending PICC line order pending echo given ef and worsening swelling
[2018-03-03 09:02] LABS: ANISOCYTOSIS SLIGHT; EOSINOPHIL 1 % (0-4); LYMPHOCYTE 6 % (20-40); MONOCYTE 7 % (0-10); NEUTROPHIL 86 % (50-75); PLATELET ESTIMATE DECREASED (NORMAL); POIKILOCYTOSIS SLIGHT; TOTAL CELLS COUNTED 100
[2018-03-03 09:03] LABS: HYPOCHROMIC SLIGHT
[2018-03-03] MEDS: Lactobacillus Acidophilus 500 MU Cap PO SCH ×2 (10:00→18:43)
[2018-03-03] MEDS: Multiple Vitamins Tab PO SCH (10:00)
--- NOTE | 2018-03-03 10:45 | RAD ---
Date of service: 03/03/2018 HISTORY: Pleural effusion vs pneumonia COMPARISON: No prior. FINDINGS: LUNGS: Patchy bilateral atelectasis and/or infiltrates and bilateral effusions right larger than left. PLEURA: No significant pleural effusion identified, no pneumothorax apparent. CARDIOVASCULAR: No appreciable aortic atherosclerotic calcification seen No heart appears enlarged.. No pulmonary vascular congestion. OSSEOUS STRUCTURES: No significant abnormalities. VISUALIZED UPPER ABDOMEN: Normal. OTHER FINDINGS: None. IMPRESSION: Patchy bilateral atelectasis and/or infiltrates and bilateral effusions right larger than left.
[2018-03-03] MEDS ORDERED: Potassium & Sodium Phosphate PO SCH (11:30)
--- NOTE | 2018-03-03 12:10 | VASCLAB ---
Date of service: 03/02/2018 PROCEDURE: Lower Extremity Venous Duplex Exam. HISTORY: Swelling. PRIORS: None. TECHNIQUE: Bilateral common femoral, femoral, popliteal and posterior tibial, peroneal and great saphenous veins were evaluated. Flow was assessed with color Doppler, compressibility, assessment of phasic flow and augmentation response. Report prepared by KORY Olvera FINDINGS: RIGHT: 1. Common Femoral Vein: 1.1. Compressibility - Fully compressible: Thrombus - None : Flow - Phasic: Augmentation -Normal: Reflux - None. 2. Femoral Vein: 2.1. Compressibility - Fully compressible: Thrombus - None : Flow - Phasic: Augmentation -Normal: Reflux - None. 3. Popliteal Vein: 3.1. Compressibility - Fully compressible: Thrombus - None : Flow - Phasic: Augmentation -Normal: Reflux - None. 4. Posterior Tibial Vein: 4.1. Compressibility - Fully compressible: Thrombus - None: Flow - Phasic: Augmentation -Normal: Reflux - None. 5. Peroneal Vein: 5.1. Compressibility - Fully compressible: Thrombus - None: Flow - Phasic: Augmentation -Normal: Reflux - None. 6. Great Saphenous Vein: 6.1. Compressibility - Fully compressible: Thrombus - None: Flow - Phasic: Augmentation - Normal: Reflux - None. LEFT: 1. Common Femoral Vein: 1.1. Compressibility - Fully compressible: Thrombus - None: Flow - Phasic: Augmentation -Normal: Reflux - None. 2. Femoral Vein: 2.1. Compressibility - Fully compressible: Thrombus - None: Flow - Phasic: Augmentation -Normal: Reflux - None. 3. Popliteal Vein: 3.1. Compressibility - Fully compressible: Thrombus - None : Flow - Phasic: Augmentation -Normal: Reflux - None. 4. Posterior Tibial Vein: 4.1. Compressibility - Fully compressible: Thrombus - None: Flow - Phasic: Augmentation -Normal: Reflux - None. 5. Peroneal Vein: 5.1. Compressibility - Fully compressible: Thrombus - None: Flow - Phasic: Augmentation -Normal: Reflux - None. 6. Great Saphenous Vein: 6.1. Compressibility - Fully compressible: Thrombus - None: Flow - Phasic: Augmentation - Normal: Reflux - None. OTHER FINDINGS: None. IMPRESSION: No evidence of deep or superficial vein thrombosis of bilateral lower extremities. Pulsatile venous flow noted bilaterally.
[2018-03-03] MEDS: Magnesium Sulfate 1 gm in D5W 1 GM/100 ML BAG IVPB SCH ×2 (12:32→13:45)
[2018-03-03] MEDS ORDERED: Midazolam 2 MG/2 ML VIAL ONE ×2 (12:55→12:58)
[2018-03-03] MEDS ORDERED: Potassium Phosphate 15 MMOLE in Sodium Chloride 0.9% 250 ML IVPB ONE (13:00)
--- NOTE | 2018-03-03 13:02 | CT ---
Date of service: 03/03/2018 PROCEDURE: CT Chest without contrast HISTORY: pulm nodules, bullous COMPARISON: 02/29/2008 TECHNIQUE: Contiguous axial images were obtained through the chest without intravenous contrast enhancement. Sagittal and coronal reconstructions were performed. Radiation dose: Total exam DLP = 672.57 mGy-cm. This CT exam was performed using one or more of the following dose reduction techniques: Automated exposure control, adjustment of the mA and/or kV according to patient size, and/or use of iterative reconstruction technique. FINDINGS: LUNGS: Stable large bilateral pleural effusions with worsening bilateral infiltrates with areas of consolidation in the upper lung zones as well as compressive atelectasis at the lung bases. MEDIASTINUM: Unremarkable thoracic aorta. No aneurysm. Normal sized heart. Main pulmonary artery unremarkable. No vascular congestion. No lymphadenopathy. No aortic atherosclerotic calcification. PLEURA: See above. BONES: No fracture. No destructive lesion. UPPER ABDOMEN: Grossly unremarkable. OTHER FINDINGS: None. IMPRESSION: Stable large bilateral pleural effusions with worsening bilateral infiltrates with areas of consolidation in the upper lung zones as well as compressive atelectasis at the lung bases.
[2018-03-03] MEDS ORDERED: Midazolam 2 MG/2 ML VIAL IVP ONE (13:13)
[2018-03-03] MEDS ORDERED: Etomidate 20 mg/10ml Inj IV ONE (13:30)
--- NOTE | 2018-03-03 13:36 | RAD ---
Date of service: 03/03/2018 HISTORY: Intubated COMPARISON: No prior. FINDINGS: In situ ETT, tip of which lies approximately 5.1 cm above sterling. Interval placement NGT, tip of which overlies left mid abdomen. Diffuse bilateral infiltrates and bilateral effusions right larger than left LUNGS: No active pulmonary disease. PLEURA: No significant pleural effusion identified, no pneumothorax apparent. CARDIOVASCULAR: No aortic atherosclerotic calcification present. Normal cardiac size. No pulmonary vascular congestion. OSSEOUS STRUCTURES: No significant abnormalities. VISUALIZED UPPER ABDOMEN: Normal. OTHER FINDINGS: None. IMPRESSION: Interval placement ETT and NGT as above bilateral infiltrates and bilateral effusions right larger than left.. Diffuse bilateral infiltrates and bilateral effusions right larger than left
[2018-03-03 14:06] LABS: OSMOLALITY,URINE 568 mosm/kg (300-1000)
--- NOTE | 2018-03-03 15:20 | PCM.PROC ---
Procedures Attestation:: I certify that I have explained the specified Operation(s) or Procedure(s), risks, benefits and reasonable alternatives to the Patient and/or other person responsible. The opportunity was given to ask questions and all questions answered - Intubation Time Out Performed: Yes Sedative: Versed, Fentanyl Mg Given: 10mg versed, 100mcg fentanyl Laryngoscope: Glidescope ET Tube Size: 7.5 ET Tube Uncuffed: No (cuffed) ET Tube Secured at Depth: 24 ET Tube Secured Locarion: Lips ET Tube Placement Confirmation: Visualized Passing Through Cords, Breath Sounds Equal Bilaterally, No Breath Sounds Over Epigastrum, Confirmation w/Capnometry Patient Tolerated Procedure: Well, No Complications Procedure Immediate Complications: None
--- NOTE | 2018-03-03 17:04 | CT ---
Date of service: 03/03/2018 PROCEDURE: CT HEAD WITHOUT CONTRAST. HISTORY: agitation, prior abnormal CT head COMPARISON: Noncontrast head CT performed 03/02/18 TECHNIQUE: Axial computed tomography images were obtained through the head/brain without intravenous contrast. Radiation dose: Total exam DLP = 1025.14 mGy-cm. This CT exam was performed using one or more of the following dose reduction techniques: Automated exposure control, adjustment of the mA and/or kV according to patient size, and/or use of iterative reconstruction technique. FINDINGS: HEMORRHAGE: Bilateral subdural hematomas measure approximately 11 mm on the right and 9 mm on the left and appear slightly heterogeneous but overall hypodense consistent with continued evolution. BRAIN: Generalized atrophy. No mass effect or edema. Nonspecific white matter changes. Please note that MRI with diffusion imaging is more sensitive in the detection of acute ischemic event. VENTRICLES: No hydrocephalus. CALVARIUM: Unremarkable. PARANASAL SINUSES: Mild mucosal thickening bilateral maxillary sinuses. MASTOID AIR CELLS: Unremarkable as visualized. No inflammatory changes. OTHER FINDINGS: None. IMPRESSION: Bilateral subdural hematomas appear slightly heterogeneous but mostly hypodense consistent with continued evolution.
--- NOTE | 2018-03-03 17:11 | CP.CCUPN ---
<Bobo Miller - Last Filed: 03/03/18 17:12> CCU Subjective - Physician Review Events Since Last Encounter (Free Text): 03/03/18 17:04 No acute events overnight Subjective (Free Text): 03/03/18 17:03 PGY1 Critical Care Consult Note for Dr. Lee Patient seen and evaluated at bedside this morning. Patient arousable. Patient is not oriented to name only. Patient on CIWA protocol. Patient was found to have small subdural hematomy on CT head without contrast 02/27/18. Patient currently in withdrawals and is on CIWA protocol with Ativan ordered. Patient on BiPAP 03/02. Today patient was intubated. On versed. On fentanyl. Non-verbal. 12 point ROS could not be obtained due to clinical condition. Critical Care Time Spent (in minutes): 35 CCU Objective - Vital Signs / Intake & Output Vital Signs (Last 4 hours): Vital Signs Pulse Resp BP Pulse Ox 03/03/18 15:03 61 16 91/52 L 100 03/03/18 15:00 61 16 100 03/03/18 14:03 121 H 24 133/98 H 03/03/18 14:00 64 16 100 Intake and Output (Last 8hrs): Intake & Output 03/03/18 03/03/18 03/03/18 06:59 14:59 22:59 Intake Total 978.5 838.4 65.7 Output Total 300 Balance 978.5 538.4 65.7 Weight 169 lb 12.095 oz Intake: IV 34 10 Intake, IV Amount 944.5 708.4 65.7 LA MIDLINE 120 60 LEFT FA Y 316 32.7 5.7 Left Forearm 450 Left Hand 600 100 Right Wrist 28.5 5.7 Oral 120 Output: Urine 300 Condom 200 Other: # Voids Urine, Voided 1 1 - Physical Exam Head: Positive for: Atraumatic, Normocephalic Pupils: Positive for: PERRL Extroacular Muscles: Positive for: EOMI Conjunctiva: Positive for: Normal, Icteric (bilaterally ) Mouth: Positive for: Moist Mucous Membranes Neck: Positive for: Normal Range of Motion Respiratory/Chest: Positive for: Other (intubated ). Negative for: Respiratory Distress, Accessory Muscle Use Cardiovascular: Positive for: Regular Rate and Rhythm, Normal S1, S2. Negative for: Murmurs Abdomen: Positive for: Normal Bowel Sounds. Negative for: Tenderness, Dis tention Back: Positive for: Normal Inspection Lower Extremity: Positive for: Edema (bilaterally ), Neurovascularly Intact, Capillary Refill < 2 s. Negative for: Tenderness Neurological: Positive for: Other (Patient is sedated and not verbally responsive at this time) Skin: Positive for: Warm, Dry Psychiatric: Positive for: Alert - Medications Active Medications: Active Medications Generic Name Dose Route Start Last Admin Trade Name Freq PRN Reason Stop Dose Admin Albuterol/Ipratropium 3 ml 03/03/18 20:00 Duoneb 3 Mg/0.5 Mg (3 Ml) Ud INH RQ6 ASHLEIGH Dextrose 0 gm 02/28/18 07:44 Glutose 15 PO ONCE PRN Hypoglycemia Protocol Protocol Folic Acid 1 mg 03/03/18 10:00 03/03/18 10:00 Folic Acid PO Not Given DAILY ASHLEIGH Glucagon 1 mg 02/28/18 07:44 Glucagen Diagnostic Kit IM STAT PRN Hypoglycemia Protocol Protocol Piperacillin Sod/Tazobactam Sod 3.375 gm in 50 mls @ 100 mls/hr 02/27/18 16:00 03/03/18 16:36 Zosyn 3.375 Gm Iv Premix IVPB 100 mls/hr Q6H ASHLEIGH Administration Protocol Vancomycin/Sodium Chloride 1 gm in 200 mls @ 133.333 mls/hr 02/27/18 16:00 03/03/18 04:02 Vancomycin 1 Gm/Ns 200 Ml IVPB 03/04/18 16:01 133.333 mls/hr Q12H ASHLEIGH Administration Protocol Dextrose 1,000 mls @ 0 mls/hr 02/28/18 07:44 Dextrose 5% In Water 1000 Ml IV .Q0M PRN Hypoglycemia Protocol Protocol Per Protocol Dexmedetomidine HCl 200 mcg/ 50 mls @ 3.79 mls/hr 03/01/18 16:36 03/03/18 13:57 Sodium Chloride IV 0.3 mcg/kg/hr TITR PRN 5.69 mls/hr Agitation Titration Protocol 0.2 MCG/KG/HR Potassium Phosphate 15 mmole/ 255 mls @ 42.5 mls/hr 03/03/18 13:00 03/03/18 13:50 Sodium Chloride IVPB 03/03/18 18:59 42.5 mls/hr ONCE ONE Administration Lactobacillus Acidophilus 1 cap 02/28/18 10:00 03/03/18 10:00 Bacid Acidophilus PO Not Given BID [facility] Lorazepam 1 mg 02/28/18 17:20 03/03/18 01:24 Ativan IVP 1 mg Q6H PRN Administration Agitation Multivitamins 1 tab 03/03/18 10:00 03/03/18 10:00 Hexavitamin PO Not Given DAILY [facility] Pantoprazole Sodium 40 mg 02/28/18 10:00 03/03/18 11:03 Protonix Inj IVP 40 mg DAILY ASHLEIGH Administration Thiamine HCl 100 mg 03/03/18 10:00 03/03/18 10:00 Vitamin B1 Tab PO Not Given BID [facility] - Patient Studies Lab Studies: Microbiology Studies 02/27/18 13:57 Blood Culture - Preliminary Blood NO GROWTH AFTER 4 DAYS 02/27/18 12:58 Blood Culture - Preliminary Blood NO GROWTH AFTER 4 DAYS 02/27/18 12:51 Urine Culture - Final Urine Enterococcus Faecalis Lab Studies 03/03/18 03/03/18 03/03/18 Range/Units 16:35 15:48 13:52 WBC (4.8-10.8) K/uL RBC (4.40-5.90) Mil/uL Hgb (12.0-18.0) g/dL Hct (35.0-51.0) % MCV (80.0-94.0) fL MCH (27.0-31.0) pg MCHC (33.0-37.0) g/dL RDW (11.5-14.5) % Plt Count (130-400) K/uL MPV (7.2-11.7) fL Neut % (Auto) (50.0-75.0) % Lymph % (Auto) (20.0-40.0) % Ceiba % (Auto) (0.0-10.0) % Eos % (Auto) (0.0-4.0) % Baso % (Auto) (0.0-2.0) % Neut # (Auto) (1.8-7.0) K/uL Lymph # (Auto) (1.0-4.3) K/uL Ceiba # (Auto) (0.0-0.8) K/uL Eos # (Auto) (0.0-0.7) K/uL Baso # (Auto) (0.0-0.2) K/uL Neutrophils % (Manual) (50-75) % Lymphocytes % (Manual) (20-40) % Monocytes % (Manual) (0-10) % Eosinophils % (Manual) (0-4) % Platelet Estimate (NORMAL) Hypochromasia (manual) Poikilocytosis (manual Anisocytosis (manual) Sodium (132-148) mmol/L Potassium (3.6-5.2) mmol/L Chloride (98-107) mmol/L Carbon Dioxide (22-30) mmol/L Anion Gap (10-20) BUN (9-20) mg/dL Creatinine (0.8-1.5) mg/dL Est GFR ( Amer) Est GFR (Non-Af Amer) POC Glucose (mg/dL) 110 (65-110) mg/dL Random Glucose (75-110) mg/dL Serum Osmolality (272-300) mosm/kg Calcium (8.6-10.4) mg/dl Phosphorus (2.5-4.5) mg/dL Magnesium (1.6-2.3) mg/dL Total Bilirubin (0.2-1.3) mg/dL AST (17-59) U/L ALT (21-72) U/L Alkaline Phosphatase (38-126) U/L Ammonia (9-33) umol/L Total Protein (6.3-8.3) g/dL Albumin (3.5-5.0) g/dL Globulin (2.2-3.9) gm/dL Albumin/Globulin Ratio (1.0-2.1) Urine Osmolality 568 (300-1000) mosm/kg Ur Random Sodium 68 mmol/L Vancomycin Trough 11.5 H (5.0-10.0) ug/mL Mycoplasma pneumon IgG (<=0.90) Mycoplasma pneumon IgM (<770) U/mL 18 03/03/18 03/03/18 Range/Units 11:58 11:58 11:58 WBC (4.8-10.8) K/uL RBC (4.40-5.90) Mil/uL Hgb (12.0-18.0) g/dL Hct (35.0-51.0) % MCV (80.0-94.0) fL MCH (27.0-31.0) pg MCHC (33.0-37.0) g/dL RDW (11.5-14.5) % Plt Count (130-400) K/uL MPV (7.2-11.7) fL Neut % (Auto) (50.0-75.0) % Lymph % (Auto) (20.0-40.0) % Ceiba % (Auto) (0.0-10.0) % Eos % (Auto) (0.0-4.0) % Baso % (Auto) (0.0-2.0) % Neut # (Auto) (1.8-7.0) K/uL Lymph # (Auto) (1.0-4.3) K/uL Ceiba # (Auto) (0.0-0.8) K/uL Eos # (Auto) (0.0-0.7) K/uL Baso # (Auto) (0.0-0.2) K/uL Neutrophils % (Manual) (50-75) % Lymphocytes % (Manual) (20-40) % Monocytes % (Manual) (0-10) % Eosinophils % (Manual) (0-4) % Platelet Estimate (NORMAL) Hypochromasia (manual) Poikilocytosis (manual Anisocytosis (manual) Sodium (132-148) mmol/L Potassium (3.6-5.2) mmol/L Chloride (98-107) mmol/L Carbon Dioxide (22-30) mmol/L Anion Gap (10-20) BUN (9-20) mg/dL Creatinine (0.8-1.5) mg/dL Est GFR ( Amer) Est GFR (Non-Af Amer) POC Glucose (mg/dL) 102 (65-110) mg/dL Random Glucose (75-110) mg/dL Serum Osmolality 289 (272-300) mosm/kg Calcium (8.6-10.4) mg/dl Phosphorus (2.5-4.5) mg/dL Magnesium (1.6-2.3) mg/dL Total Bilirubin (0.2-1.3) mg/dL AST (17-59) U/L ALT (21-72) U/L Alkaline Phosphatase (38-126) U/L Ammonia 17 D (9-33) umol/L Total Protein (6.3-8.3) g/dL Albumin (3.5-5.0) g/dL Globulin (2.2-3.9) gm/dL Albumin/Globulin Ratio (1.0-2.1) Urine Osmolality (300-1000) mosm/kg Ur Random Sodium mmol/L Vancomycin Trough (5.0-10.0) ug/mL Mycoplasma pneumon IgG (<=0.90) Mycoplasma pneumon IgM (<770) U/mL 03/03/18 03/03/18 03/03/18 Range/Units 07:25 06:12 06:12 WBC 6.6 (4.8-10.8) K/uL RBC 2.02 L (4.40-5.90) Mil/uL Hgb 6.8 L (12.0-18.0) g/dL Hct 20.0 L (35.0-51.0) % MCV 98.6 H (80.0-94.0) fL MCH 33.7 H (27.0-31.0) pg MCHC 34.2 (33.0-37.0) g/dL RDW 18.6 H (11.5-14.5) % Plt Count 51 L (130-400) K/uL MPV 9.6 (7.2-11.7) fL Neut % (Auto) 80.0 H (50.0-75.0) % Lymph % (Auto) 8.3 L (20.0-40.0) % Ceiba % (Auto) 10.1 H (0.0-10.0) % Eos % (Auto) 1.3 (0.0-4.0) % Baso % (Auto) 0.3 (0.0-2.0) % Neut # (Auto) 5.3 (1.8-7.0) K/uL Lymph # (Auto) 0.5 L (1.0-4.3) K/uL Ceiba # (Auto) 0.7 (0.0-0.8) K/uL Eos # (Auto) 0.1 (0.0-0.7) K/uL Baso # (Auto) 0.0 (0.0-0.2) K/uL Neutrophils % (Manual) 86 H (50-75) % Lymphocytes % (Manual) 6 L (20-40) % Monocytes % (Manual) 7 (0-10) % Eosinophils % (Manual) 1 (0-4) % Platelet Estimate Decreased L (NORMAL) Hypochromasia (manual) Slight Poikilocytosis (manual Slight Anisocytosis (manual) Slight Sodium 139 (132-148) mmol/L Potassium 2.9 L (3.6-5.2) mmol/L Chloride 90 L (98-107) mmol/L Carbon Dioxide 24 (22-30) mmol/L Anion Gap 27 H (10-20) BUN 9 (9-20) mg/dL Creatinine 0.4 L (0.8-1.5) mg/dL Est GFR ( Amer) > 60 Est GFR (Non-Af Amer) > 60 POC Glucose (mg/dL) 96 (65-110) mg/dL Random Glucose 142 H (75-110) mg/dL Serum Osmolality (272-300) mosm/kg Calcium 5.2 L* (8.6-10.4) mg/dl Phosphorus 1.0 L* (2.5-4.5) mg/dL Magnesium 1.6 (1.6-2.3) mg/dL Total Bilirubin 7.8 H (0.2-1.3) mg/dL AST 199 H D (17-59) U/L ALT 52 (21-72) U/L Alkaline Phosphatase 93 (38-126) U/L Ammonia (9-33) umol/L Total Protein 6.0 L (6.3-8.3) g/dL Albumin 2.1 L (3.5-5.0) g/dL Globulin 3.9 (2.2-3.9) gm/dL Albumin/Globulin Ratio 0.5 L (1.0-2.1) Urine Osmolality (300-1000) mosm/kg Ur Random Sodium mmol/L Vancomycin Trough (5.0-10.0) ug/mL Mycoplasma pneumon IgG (<=0.90) Mycoplasma pneumon IgM (<770) U/mL 03/02/18 03/02/18 03/02/18 Range/Units 21:26 16:20 11:18 WBC (4.8-10.8) K/uL RBC (4.40-5.90) Mil/uL Hgb (12.0-18.0) g/dL Hct (35.0-51.0) % MCV (80.0-94.0) fL MCH (27.0-31.0) pg MCHC (33.0-37.0) g/dL RDW (11.5-14.5) % Plt Count (130-400) K/uL MPV (7.2-11.7) fL Neut % (Auto) (50.0-75.0) % Lymph % (Auto) (20.0-40.0) % Ceiba % (Auto) (0.0-10.0) % Eos % (Auto) (0.0-4.0) % Baso % (Auto) (0.0-2.0) % Neut # (Auto) (1.8-7.0) K/uL Lymph # (Auto) (1.0-4.3) K/uL Ceiba # (Auto) (0.0-0.8) K/uL Eos # (Auto) (0.0-0.7) K/uL Baso # (Auto) (0.0-0.2) K/uL Neutrophils % (Manual) (50-75) % Lymphocytes % (Manual) (20-40) % Monocytes % (Manual) (0-10) % Eosinophils % (Manual) (0-4) % Platelet Estimate (NORMAL) Hypochromasia (manual) Poikilocytosis (manual Anisocytosis (manual) Sodium (132-148) mmol/L Potassium (3.6-5.2) mmol/L Chloride (98-107) mmol/L Carbon Dioxide (22-30) mmol/L Anion Gap (10-20) BUN (9-20) mg/dL Creatinine (0.8-1.5) mg/dL Est GFR ( Amer) Est GFR (Non-Af Amer) POC Glucose (mg/dL) 103 101 70 (65-110) mg/dL Random Glucose (75-110) mg/dL Serum Osmolality (272-300) mosm/kg Calcium (8.6-10.4) mg/dl Phosphorus (2.5-4.5) mg/dL Magnesium (1.6-2.3) mg/dL Total Bilirubin (0.2-1.3) mg/dL AST (17-59) U/L ALT (21-72) U/L Alkaline Phosphatase (38-126) U/L Ammonia (9-33) umol/L Total Protein (6.3-8.3) g/dL Albumin (3.5-5.0) g/dL Globulin (2.2-3.9) gm/dL Albumin/Globulin Ratio (1.0-2.1) Urine Osmolality (300-1000) mosm/kg Ur Random Sodium mmol/L Vancomycin Trough (5.0-10.0) ug/mL Mycoplasma pneumon IgG (<=0.90) Mycoplasma pneumon IgM (<770) U/mL 03/02/18 02/28/18 Range/Units 08:47 06:59 WBC (4.8-10.8) K/uL RBC (4.40-5.90) Mil/uL Hgb (12.0-18.0) g/dL Hct (35.0-51.0) % MCV (80.0-94.0) fL MCH (27.0-31.0) pg MCHC (33.0-37.0) g/dL RDW (11.5-14.5) % Plt Count (130-400) K/uL MPV (7.2-11.7) fL Neut % (Auto) (50.0-75.0) % Lymph % (Auto) (20.0-40.0) % Ceiba % (Auto) (0.0-10.0) % Eos % (Auto) (0.0-4.0) % Baso % (Auto) (0.0-2.0) % Neut # (Auto) (1.8-7.0) K/uL Lymph # (Auto) (1.0-4.3) K/uL Ceiba # (Auto) (0.0-0.8) K/uL Eos # (Auto) (0.0-0.7) K/uL Baso # (Auto) (0.0-0.2) K/uL Neutrophils % (Manual) (50-75) % Lymphocytes % (Manual) (20-40) % Monocytes % (Manual) (0-10) % Eosinophils % (Manual) (0-4) % Platelet Estimate (NORMAL) Hypochromasia (manual) Poikilocytosis (manual Anisocytosis (manual) Sodium (132-148) mmol/L Potassium (3.6-5.2) mmol/L Chloride (98-107) mmol/L Carbon Dioxide (22-30) mmol/L Anion Gap (10-20) BUN (9-20) mg/dL Creatinine (0.8-1.5) mg/dL Est GFR ( Amer) Est GFR (Non-Af Amer) POC Glucose (mg/dL) 72 (65-110) mg/dL Random Glucose (75-110) mg/dL Serum Osmolality (272-300) mosm/kg Calcium (8.6-10.4) mg/dl Phosphorus (2.5-4.5) mg/dL Magnesium (1.6-2.3) mg/dL Total Bilirubin (0.2-1.3) mg/dL AST (17-59) U/L ALT (21-72) U/L Alkaline Phosphatase (38-126) U/L Ammonia (9-33) umol/L Total Protein (6.3-8.3) g/dL Albumin (3.5-5.0) g/dL Globulin (2.2-3.9) gm/dL Albumin/Globulin Ratio (1.0-2.1) Urine Osmolality (300-1000) mosm/kg Ur Random Sodium mmol/L Vancomycin Trough (5.0-10.0) ug/mL Mycoplasma pneumon IgG 1.41 H (<=0.90) Mycoplasma pneumon IgM 216 (<770) U/mL Laboratory Results - last 24 hr 02/28/18 03/02/18 03/02/18 06:59 08:47 11:18 WBC RBC Hgb Hct MCV MCH MCHC RDW Plt Count MPV Neut % (Auto) Lymph % (Auto) Ceiba % (Auto) Eos % (Auto) Baso % (Auto) Neut # (Auto) Lymph # (Auto) Ceiba # (Auto) Eos # (Auto) Baso # (Auto) Neutrophils % (Manual) Lymphocytes % (Manual) Monocytes % (Manual) Eosinophils % (Manual) Platelet Estimate Hypochromasia (manual) Poikilocytosis (manual Anisocytosis (manual) Sodium Potassium Chloride Carbon Dioxide Anion Gap BUN Creatinine Est GFR ( Amer) Est GFR (Non-Af Amer) POC Glucose (mg/dL) 72 70 Random Glucose Serum Osmolality Calcium Phosphorus Magnesium Total Bilirubin AST ALT Alkaline Phosphatase Ammonia Total Protein Albumin Globulin Albumin/Globulin Ratio Urine Osmolality Ur Random Sodium Vancomycin Trough Mycoplasma pneumon IgG 1.41 H Mycoplasma pneumon IgM 216 03/02/18 03/02/18 03/03/18 16:20 21:26 06:12 WBC 6.6 RBC 2.02 L Hgb 6.8 L Hct 20.0 L MCV 98.6 H MCH 33.7 H MCHC 34.2 RDW 18.6 H Plt Count 51 L MPV 9.6 Neut % (Auto) 80.0 H Lymph % (Auto) 8.3 L Ceiba % (Auto) 10.1 H Eos % (Auto) 1.3 Baso % (Auto) 0.3 Neut # (Auto) 5.3 Lymph # (Auto) 0.5 L Ceiba # (Auto) 0.7 Eos # (Auto) 0.1 Baso # (Auto) 0.0 Neutrophils % (Manual) 86 H Lymphocytes % (Manual) 6 L Monocytes % (Manual) 7 Eosinophils % (Manual) 1 Platelet Estimate Decreased L Hypochromasia (manual) Slight Poikilocytosis (manual Slight Anisocytosis (manual) Slight Sodium Potassium Chloride Carbon Dioxide Anion Gap BUN Creatinine Est GFR ( Amer) Est GFR (Non-Af Amer) POC Glucose (mg/dL) 101 103 Random Glucose Serum Osmolality Calcium Phosphorus Magnesium Total Bilirubin AST ALT Alkaline Phosphatase Ammonia Total Protein Albumin Globulin Albumin/Globulin Ratio Urine Osmolality Ur Random Sodium Vancomycin Trough Mycoplasma pneumon IgG Mycoplasma pneumon IgM 03/03/18 03/03/18 03/03/18 06:12 07:25 11:58 WBC RBC Hgb Hct MCV MCH MCHC RDW Plt Count MPV Neut % (Auto) Lymph % (Auto) Ceiba % (Auto) Eos % (Auto) Baso % (Auto) Neut # (Auto) Lymph # (Auto) Ceiba # (Auto) Eos # (Auto) Baso # (Auto) Neutrophils % (Manual) Lymphocytes % (Manual) Monocytes % (Manual) Eosinophils % (Manual) Platelet Estimate Hypochromasia (manual) Poikilocytosis (manual Anisocytosis (manual) Sodium 139 Potassium 2.9 L Chloride 90 L Carbon Dioxide 24 Anion Gap 27 H BUN 9 Creatinine 0.4 L Est GFR ( Amer) > 60 Est GFR (Non-Af Amer) > 60 POC Glucose (mg/dL) 96 Random Glucose 142 H Serum Osmolality Calcium 5.2 L* Phosphorus 1.0 L* Magnesium 1.6 Total Bilirubin 7.8 H AST 199 H D ALT 52 Alkaline Phosphatase 93 Ammonia 17 D Total Protein 6.0 L Albumin 2.1 L Globulin 3.9 Albumin/Globulin Ratio 0.5 L Urine Osmolality Ur Random Sodium Vancomycin Trough Mycoplasma pneumon IgG Mycoplasma pneumon IgM 03/03/18 03/03/18 03/03/18 11:58 11:58 13:52 WBC RBC Hgb Hct MCV MCH MCHC RDW Plt Count MPV Neut % (Auto) Lymph % (Auto) Ceiba % (Auto) Eos % (Auto) Baso % (Auto) Neut # (Auto) Lymph # (Auto) Ceiba # (Auto) Eos # (Auto) Baso # (Auto) Neutrophils % (Manual) Lymphocytes % (Manual) Monocytes % (Manual) Eosinophils % (Manual) Platelet Estimate Hypochromasia (manual) Poikilocytosis (manual Anisocytosis (manual) Sodium Potassium Chloride Carbon Dioxide Anion Gap BUN Creatinine Est GFR ( Amer) Est GFR (Non-Af Amer) POC Glucose (mg/dL) 102 Random Glucose Serum Osmolality 289 Calcium Phosphorus Magnesium Total Bilirubin AST ALT Alkaline Phosphatase Ammonia Total Protein Albumin Globulin Albumin/Globulin Ratio Urine Osmolality 568 Ur Random Sodium 68 Vancomycin Trough Mycoplasma pneumon IgG Mycoplasma pneumon IgM 03/03/18 03/03/18 15:48 16:35 WBC RBC Hgb Hct MCV MCH MCHC RDW Plt Count MPV Neut % (Auto) Lymph % (Auto) Ceiba % (Auto) Eos % (Auto) Baso % (Auto) Neut # (Auto) Lymph # (Auto) Ceiba # (Auto) Eos # (Auto) Baso # (Auto) Neutrophils % (Manual) Lymphocytes % (Manual) Monocytes % (Manual) Eosinophils % (Manual) Platelet Estimate Hypochromasia (manual) Poikilocytosis (manual Anisocytosis (manual) Sodium Potassium Chloride Carbon Dioxide Anion Gap BUN Creatinine Est GFR ( Amer) Est GFR (Non-Af Amer) POC Glucose (mg/dL) 110 Random Glucose Serum Osmolality Calcium Phosphorus Magnesium Total Bilirubin AST ALT Alkaline Phosphatase Ammonia Total Protein Albumin Globulin Albumin/Globulin Ratio Urine Osmolality Ur Random Sodium Vancomycin Trough 11.5 H Mycoplasma pneumon IgG Mycoplasma pneumon IgM Fingerstick Blood Sugar Results: 96 Review of Systems - Review of Systems Systems not reviewed;Unavailable: Acuity of Condition Assessment/Plan - Assessment and Plan (Free Text) Assessment: Patient is a 57-year-old male with a past medical history of multiple visits to the ED for alcohol intoxication who presents to [facility] brought in by ambulance for alcohol intoxication. Of note, the patient is homeless and was found on someone else's property. While in the ED: chest x-ray was obtained and revealed right lower lobe infiltrates. Patient treated empirically CAP. CT head without contrast was obtained 02/27/18 and revealed small subdural hematoma. Patient currently arousable but is not oriented. Today patient was intubated. On versed. On fentanyl. Non-verbal. Patient continues to be closely monitored in ICU. Neuro: - Neurology consulted; Dr. Loving; recommendations appreciated - Patient is altered - UDS positive for high levels of alcohol - Continue lactulose - Hyponatremia - Hypothermia: warming blankets; resolved - Urine Na, urine osm, serum osm, pending - 03/03/18 CT head without contrast repeat: bilateral subdural hematomas appear slightly heterogenous but mostly hypodense consistent with continued evolution. - 02/27/18 CT head without contrast: small subdural hematoma (see official report for more detail) - 02/27/18 CTA of head and neck: There is a tiny calcified plaque left carotid bifurcation; otherwise unremarkable; No evidence of anneurysm or vascular malformation - CIWA protocol - Start Versed - Start Fentanyl - Atival PRN - Hypoglycemia protocol - Banana bag completed - Neuro checks Q2 CV: - No acute issues - EKG obtained - ECHO obtained 03/03; pending report - monitor tech Pulm: - Patient intubated 03/03 - CXR 03/03: Interval placement ETT and NGT as above bilateral infiltrates and bilateral effusions right larger than left. Diffuse bilateral infiltrates and bilateral effusions right larger than left - CXR 03/02: left lower lobe infiltrates - CT chest 02/28: * Per Official Report: Large right and moderate left pleural effusions and associated consolidations. Lingular infiltrates. Probable bulla in the right upper lobe however small loculated pneumothorax is not excluded. - Start empiric antibiotics for CAP - Monitor CBC with diff, ABG Renal: - Hyponatremia; resolved - Hypophosphatemia; replete as needed - Hypokalemia; replete as needed - Urine Na, urine osm, serum osm, pending - Monitor with CMP, Mg, Phos GI: - 02/27/18 Abd ultrasound obtained - 03/01/18 CT abdomen/Pelvis obtained - NG tube - Start tube feeds - Deep Fat Cook Fry consulted; recommendations appreciated - PPx: protonix 40mg IVP daily : - Monitor i/o - Intake: 3056.1mL - Output: 300mL - Balance: 2756mL ID: - Hepatitis panel negative - Empiric antibiotics for CAP - MRSA screen pending - Blood cultures: no growth x48hrs - Urine cultures: gram positive Cocci PPx: - GI: Protonix 40mg IVP daily - DVT: SCD contraindicated Patient seen and case discussed with Dr. Jaspal Miller PGY1 <Jarred Shay - Last Filed: 03/03/18 18:26> CCU Objective - Vital Signs / Intake & Output Vital Signs (Last 4 hours): Vital Signs Pulse Resp BP Pulse Ox 03/03/18 15:03 61 16 91/52 L 100 03/03/18 15:00 61 16 100 Intake and Output (Last 8hrs): Intake & Output 03/03/18 03/03/18 03/03/18 06:59 14:59 22:59 Intake Total 978.5 838.4 65.7 Output Total 300 Balance 978.5 538.4 65.7 Weight 169 lb 12.095 oz Intake: IV 34 10 Intake, IV Amount 944.5 708.4 65.7 LA MIDLINE 120 60 LEFT FA Y 316 32.7 5.7 Left Forearm 450 Left Hand 600 100 Right Wrist 28.5 5.7 Oral 120 Output: Urine 300 Condom 200 Other: # Voids Urine, Voided 1 1 - Medications Active Medications: Active Medications Generic Name Dose Route Start Last Admin Trade Name Freq PRN Reason Stop Dose Admin Acetazolamide 500 mg 03/03/18 18:00 Diamox 500 Mg Inj IV 03/04/18 10:01 BID ASHLEIGH Albuterol/Ipratropium 3 ml 03/03/18 20:00 Duoneb 3 Mg/0.5 Mg (3 Ml) Ud INH RQ6 ASHLEIGH Dextrose 0 gm 02/28/18 07:44 Glutose 15 PO ONCE PRN Hypoglycemia Protocol Protocol Folic Acid 1 mg 03/03/18 10:00 03/03/18 10:00 Folic Acid PO Not Given DAILY ASHLEIGH Glucagon 1 mg 02/28/18 07:44 Glucagen Diagnostic Kit IM STAT PRN Hypoglycemia Protocol Protocol Piperacillin Sod/Tazobactam Sod 3.375 gm in 50 mls @ 100 mls/hr 02/27/18 16:00 03/03/18 16:36 Zosyn 3.375 Gm Iv Premix IVPB 100 mls/hr Q6H [facility] Administration Protocol Vancomycin/Sodium Chloride 1 gm in 200 mls @ 133.333 mls/hr 02/27/18 16:00 03/03/18 04:02 Vancomycin 1 Gm/Ns 200 Ml IVPB 03/04/18 16:01 133.333 mls/hr Q12H [facility]LE[facility] Administration Protocol Dextrose 1,000 mls @ 0 mls/hr 02/28/18 07:44 Dextrose 5% In Water 1000 Ml IV .Q0M PRN Hypoglycemia Protocol Protocol Per Protocol Dexmedetomidine HCl 200 mcg/ 50 mls @ 3.79 mls/hr 03/01/18 16:36 03/03/18 13:57 Sodium Chloride IV 0.3 mcg/kg/hr TITR PRN 5.69 mls/hr Agitation Titration Protocol 0.2 MCG/KG/HR Potassium Phosphate 15 mmole/ 255 mls @ 42.5 mls/hr 03/03/18 13:00 03/03/18 13:50 Sodium Chloride IVPB 03/03/18 18:59 42.5 mls/hr ONCE ONE Administration Lactobacillus Acidophilus 1 cap 02/28/18 10:00 03/03/18 10:00 Bacid Acidophilus PO Not Given BID [facility] Lorazepam 1 mg 02/28/18 17:20 03/03/18 01:24 Ativan IVP 1 mg Q6H PRN Administration Agitation Multivitamins 1 tab 03/03/18 10:00 03/03/18 10:00 Hexavitamin PO Not Given DAILY [facility] Pantoprazole Sodium 40 mg 02/28/18 10:00 03/03/18 11:03 Protonix Inj IVP 40 mg DAILY [facility] Administration Thiamine HCl 100 mg 03/03/18 10:00 03/03/18 10:00 Vitamin B1 Tab PO Not Given BID A[facility]LE[facility] - Patient Studies Lab Studies: Microbiology Studies 02/27/18 13:57 Blood Culture - Preliminary Blood NO GROWTH AFTER 4 DAYS 02/27/18 12:58 Blood Culture - Preliminary Blood NO GROWTH AFTER 4 DAYS Lab Studies 03/03/18 03/03/18 03/03/18 Range/Units 17:31 16:35 15:48 WBC (4.8-10.8) K/uL RBC (4.40-5.90) Mil/uL Hgb (12.0-18.0) g/dL Hct (35.0-51.0) % MCV (80.0-94.0) fL MCH (27.0-31.0) pg MCHC (33.0-37.0) g/dL RDW (11.5-14.5) % Plt Count (130-400) K/uL MPV (7.2-11.7) fL Neut % (Auto) (50.0-75.0) % Lymph % (Auto) (20.0-40.0) % Ceiba % (Auto) (0.0-10.0) % Eos % (Auto) (0.0-4.0) % Baso % (Auto) (0.0-2.0) % Neut # (Auto) (1.8-7.0) K/uL Lymph # (Auto) (1.0-4.3) K/uL Ceiba # (Auto) (0.0-0.8) K/uL Eos # (Auto) (0.0-0.7) K/uL Baso # (Auto) (0.0-0.2) K/uL Neutrophils % (Manual) (50-75) % Lymphocytes % (Manual) (20-40) % Monocytes % (Manual) (0-10) % Eosinophils % (Manual) (0-4) % Platelet Estimate (NORMAL) Hypochromasia (manual) Poikilocytosis (manual Anisocytosis (manual) Puncture Site Rba pCO2 37 (35-45) mm/Hg pO2 245 H (80-100) mm/Hg HCO3 29.1 H (21-28) mmol/L ABG pH 7.50 H (7.35-7.45) ABG Total CO2 30.0 H (22-28) mmol/L ABG O2 Saturation 100.6 H (95-98) % ABG Base Excess 5.3 H (-2.0-3.0) mmol/L ABG Hemoglobin 7.6 L (11.7-17.4) g/dL ABG Carboxyhemoglobin 2.4 H (0.5-1.5) % POC ABG HHb (Measured) -0.6 L (0.0-5.0) % ABG Methemoglobin 1.7 (0.0-3.0) % Rei Test Na A-a O2 Difference 422.0 mm/Hg Respiratory Index 1.7 Hgb O2 Saturation 96.5 (95.0-98.0) % Vent Mode Prvc Mechanical Rate 16 FiO2 100.0 % Tidal Volume 500 PEEP 5 Sodium (132-148) mmol/L Potassium (3.6-5.2) mmol/L Chloride (98-107) mmol/L Carbon Dioxide (22-30) mmol/L Anion Gap (10-20) BUN (9-20) mg/dL Creatinine (0.8-1.5) mg/dL Est GFR ( Amer) Est GFR (Non-Af Amer) POC Glucose (mg/dL) 110 (65-110) mg/dL Random Glucose (75-110) mg/dL Serum Osmolality (272-300) mosm/kg Calcium (8.6-10.4) mg/dl Phosphorus (2.5-4.5) mg/dL Magnesium (1.6-2.3) mg/dL Total Bilirubin (0.2-1.3) mg/dL AST (17-59) U/L ALT (21-72) U/L Alkaline Phosphatase (38-126) U/L Ammonia (9-33) umol/L Total Protein (6.3-8.3) g/dL Albumin (3.5-5.0) g/dL Globulin (2.2-3.9) gm/dL Albumin/Globulin Ratio (1.0-2.1) Urine Osmolality (300-1000) mosm/kg Ur Random Sodium mmol/L Vancomycin Trough 11.5 H (5.0-10.0) ug/mL Mycoplasma pneumon IgM (<770) U/mL 03/03/18 03/03/18 03/03/18 Range/Units 13:52 11:58 11:58 WBC (4.8-10.8) K/uL RBC (4.40-5.90) Mil/uL Hgb (12.0-18.0) g/dL Hct (35.0-51.0) % MCV (80.0-94.0) fL MCH (27.0-31.0) pg MCHC (33.0-37.0) g/dL RDW (11.5-14.5) % Plt Count (130-400) K/uL MPV (7.2-11.7) fL Neut % (Auto) (50.0-75.0) % Lymph % (Auto) (20.0-40.0) % [place] % (Auto) (0.0-10.0) % Eos % (Auto) (0.0-4.0) % Baso % (Auto) (0.0-2.0) % Neut # (Auto) (1.8-7.0) K/uL Lymph # (Auto) (1.0-4.3) K/uL [place] # (Auto) (0.0-0.8) K/uL Eos # (Auto) (0.0-0.7) K/uL Baso # (Auto) (0.0-0.2) K/uL Neutrophils % (Manual) (50-75) % Lymphocytes % (Manual) (20-40) % Monocytes % (Manual) (0-10) % Eosinophils % (Manual) (0-4) % Platelet Estimate (NORMAL) Hypochromasia (manual) Poikilocytosis (manual Anisocytosis (manual) Puncture Site pCO2 (35-45) mm/Hg pO2 (80-100) mm/Hg HCO3 (21-28) mmol/L ABG pH (7.35-7.45) ABG Total CO2 (22-28) mmol/L ABG O2 Saturation (95-98) % ABG Base Excess (-2.0-3.0) mmol/L ABG Hemoglobin (11.7-17.4) g/dL ABG Carboxyhemoglobin (0.5-1.5) % POC ABG HHb (Measured) (0.0-5.0) % ABG Methemoglobin (0.0-3.0) % Rei Test A-a O2 Difference mm/Hg Respiratory Index Hgb O2 Saturation (95.0-98.0) % Vent Mode Mechanical Rate FiO2 % Tidal Volume PEEP Sodium (132-148) mmol/L Potassium (3.6-5.2) mmol/L Chloride (98-107) mmol/L Carbon Dioxide (22-30) mmol/L Anion Gap (10-20) BUN (9-20) mg/dL Creatinine (0.8-1.5) mg/dL Est GFR ( Amer) Est GFR (Non-Af Amer) POC Glucose (mg/dL) 102 (65-110) mg/dL Random Glucose (75-110) mg/dL Serum Osmolality 289 (272-300) mosm/kg Calcium (8.6-10.4) mg/dl Phosphorus (2.5-4.5) mg/dL Magnesium (1.6-2.3) mg/dL Total Bilirubin (0.2-1.3) mg/dL AST (17-59) U/L ALT (21-72) U/L Alkaline Phosphatase (38-126) U/L Ammonia (9-33) umol/L Total Protein (6.3-8.3) g/dL Albumin (3.5-5.0) g/dL Globulin (2.2-3.9) gm/dL Albumin/Globulin Ratio (1.0-2.1) Urine Osmolality 568 (300-1000) mosm/kg Ur Random Sodium 68 mmol/L Vancomycin Trough (5.0-10.0) ug/mL Mycoplasma pneumon IgM (<770) U/mL 03/03/18 03/03/18 03/03/18 Range/Units 11:58 07:25 06:12 WBC (4.8-10.8) K/uL RBC (4.40-5.90) Mil/uL Hgb (12.0-18.0) g/dL Hct (35.0-51.0) % MCV (80.0-94.0) fL MCH (27.0-31.0) pg MCHC (33.0-37.0) g/dL RDW (11.5-14.5) % Plt Count (130-400) K/uL MPV (7.2-11.7) fL Neut % (Auto) (50.0-75.0) % Lymph % (Auto) (20.0-40.0) % [place] % (Auto) (0.0-10.0) % Eos % (Auto) (0.0-4.0) % Baso % (Auto) (0.0-2.0) % Neut # (Auto) (1.8-7.0) K/uL Lymph # (Auto) (1.0-4.3) K/uL [place] # (Auto) (0.0-0.8) K/uL Eos # (Auto) (0.0-0.7) K/uL Baso # (Auto) (0.0-0.2) K/uL Neutrophils % (Manual) (50-75) % Lymphocytes % (Manual) (20-40) % Monocytes % (Manual) (0-10) % Eosinophils % (Manual) (0-4) % Platelet Estimate (NORMAL) Hypochromasia (manual) Poikilocytosis (manual Anisocytosis (manual) Puncture Site pCO2 (35-45) mm/Hg pO2 (80-100) mm/Hg HCO3 (21-28) mmol/L ABG pH (7.35-7.45) ABG Total CO2 (22-28) mmol/L ABG O2 Saturation (95-98) % ABG Base Excess (-2.0-3.0) mmol/L ABG Hemoglobin (11.7-17.4) g/dL ABG Carboxyhemoglobin (0.5-1.5) % POC ABG HHb (Measured) (0.0-5.0) % ABG Methemoglobin (0.0-3.0) % Rei Test A-a O2 Difference mm/Hg Respiratory Index Hgb O2 Saturation (95.0-98.0) % Vent Mode Mechanical Rate FiO2 % Tidal Volume PEEP Sodium 139 (132-148) mmol/L Potassium 2.9 L (3.6-5.2) mmol/L Chloride 90 L (98-107) mmol/L Carbon Dioxide 24 (22-30) mmol/L Anion Gap 27 H (10-20) BUN 9 (9-20) mg/dL Creatinine 0.4 L (0.8-1.5) mg/dL Est GFR ( Amer) > 60 Est GFR (Non-Af Amer) > 60 POC Glucose (mg/dL) 96 (65-110) mg/dL Random Glucose 142 H (75-110) mg/dL Serum Osmolality (272-300) mosm/kg Calcium 5.2 L* (8.6-10.4) mg/dl Phosphorus 1.0 L* (2.5-4.5) mg/dL Magnesium 1.6 (1.6-2.3) mg/dL Total Bilirubin 7.8 H (0.2-1.3) mg/dL AST 199 H D (17-59) U/L ALT 52 (21-72) U/L Alkaline Phosphatase 93 (38-126) U/L Ammonia 17 D (9-33) umol/L Total Protein 6.0 L (6.3-8.3) g/dL Albumin 2.1 L (3.5-5.0) g/dL Globulin 3.9 (2.2-3.9) gm/dL Albumin/Globulin Ratio 0.5 L (1.0-2.1) Urine Osmolality (300-1000) mosm/kg Ur Random Sodium mmol/L Vancomycin Trough (5.0-10.0) ug/mL Mycoplasma pneumon IgM (<770) U/mL 03/03/18 03/02/18 03/02/18 Range/Units 06:12 21:26 16:20 WBC 6.6 (4.8-10.8) K/uL RBC 2.02 L (4.40-5.90) Mil/uL Hgb 6.8 L (12.0-18.0) g/dL Hct 20.0 L (35.0-51.0) % MCV 98.6 H (80.0-94.0) fL MCH 33.7 H (27.0-31.0) pg MCHC 34.2 (33.0-37.0) g/dL RDW 18.6 H (11.5-14.5) % Plt Count 51 L (130-400) K/uL MPV 9.6 (7.2-11.7) fL Neut % (Auto) 80.0 H (50.0-75.0) % Lymph % (Auto) 8.3 L (20.0-40.0) % [place] % (Auto) 10.1 H (0.0-10.0) % Eos % (Auto) 1.3 (0.0-4.0) % Baso % (Auto) 0.3 (0.0-2.0) % Neut # (Auto) 5.3 (1.8-7.0) K/uL Lymph # (Auto) 0.5 L (1.0-4.3) K/uL [place] # (Auto) 0.7 (0.0-0.8) K/uL Eos # (Auto) 0.1 (0.0-0.7) K/uL Baso # (Auto) 0.0 (0.0-0.2) K/uL Neutrophils % (Manual) 86 H (50-75) % Lymphocytes % (Manual) 6 L (20-40) % Monocytes % (Manual) 7 (0-10) % Eosinophils % (Manual) 1 (0-4) % Platelet Estimate Decreased L (NORMAL) Hypochromasia (manual) Slight Poikilocytosis (manual Slight Anisocytosis (manual) Slight Puncture Site pCO2 (35-45) mm/Hg pO2 (80-100) mm/Hg HCO3 (21-28) mmol/L ABG pH (7.35-7.45) ABG Total CO2 (22-28) mmol/L ABG O2 Saturation (95-98) % ABG Base Excess (-2.0-3.0) mmol/L ABG Hemoglobin (11.7-17.4) g/dL ABG Carboxyhemoglobin (0.5-1.5) % POC ABG HHb (Measured) (0.0-5.0) % ABG Methemoglobin (0.0-3.0) % Rei Test A-a O2 Difference mm/Hg Respiratory Index Hgb O2 Saturation (95.0-98.0) % Vent Mode Mechanical Rate FiO2 % Tidal Volume PEEP Sodium (132-148) mmol/L Potassium (3.6-5.2) mmol/L Chloride (98-107) mmol/L Carbon Dioxide (22-30) mmol/L Anion Gap (10-20) BUN (9-20) mg/dL Creatinine (0.8-1.5) mg/dL Est GFR ( Amer) Est GFR (Non-Af Amer) POC Glucose (mg/dL) 103 101 (65-110) mg/dL Random Glucose (75-110) mg/dL Serum Osmolality (272-300) mosm/kg Calcium (8.6-10.4) mg/dl Phosphorus (2.5-4.5) mg/dL Magnesium (1.6-2.3) mg/dL Total Bilirubin (0.2-1.3) mg/dL AST (17-59) U/L ALT (21-72) U/L Alkaline Phosphatase (38-126) U/L Ammonia (9-33) umol/L Total Protein (6.3-8.3) g/dL Albumin (3.5-5.0) g/dL Globulin (2.2-3.9) gm/dL Albumin/Globulin Ratio (1.0-2.1) Urine Osmolality (300-1000) mosm/kg Ur Random Sodium mmol/L Vancomycin Trough (5.0-10.0) ug/mL Mycoplasma pneumon IgM (<770) U/mL 03/02/18 03/02/18 02/28/18 Range/Units 11:18 08:47 06:59 WBC (4.8-10.8) K/uL RBC (4.40-5.90) Mil/uL Hgb (12.0-18.0) g/dL Hct (35.0-51.0) % MCV (80.0-94.0) fL MCH (27.0-31.0) pg MCHC (33.0-37.0) g/dL RDW (11.5-14.5) % Plt Count (130-400) K/uL MPV (7.2-11.7) fL Neut % (Auto) (50.0-75.0) % Lymph % (Auto) (20.0-40.0) % [place] % (Auto) (0.0-10.0) % Eos % (Auto) (0.0-4.0) % Baso % (Auto) (0.0-2.0) % Neut # (Auto) (1.8-7.0) K/uL Lymph # (Auto) (1.0-4.3) K/uL [place] # (Auto) (0.0-0.8) K/uL Eos # (Auto) (0.0-0.7) K/uL Baso # (Auto) (0.0-0.2) K/uL Neutrophils % (Manual) (50-75) % Lymphocytes % (Manual) (20-40) % Monocytes % (Manual) (0-10) % Eosinophils % (Manual) (0-4) % Platelet Estimate (NORMAL) Hypochromasia (manual) Poikilocytosis (manual Anisocytosis (manual) Puncture Site pCO2 (35-45) mm/Hg pO2 (80-100) mm/Hg HCO3 (21-28) mmol/L ABG pH (7.35-7.45) ABG Total CO2 (22-28) mmol/L ABG O2 Saturation (95-98) % ABG Base Excess (-2.0-3.0) mmol/L ABG Hemoglobin (11.7-17.4) g/dL ABG Carboxyhemoglobin (0.5-1.5) % POC ABG HHb (Measured) (0.0-5.0) % ABG Methemoglobin (0.0-3.0) % Rei Test A-a O2 Difference mm/Hg Respiratory Index Hgb O2 Saturation (95.0-98.0) % Vent Mode Mechanical Rate FiO2 % Tidal Volume PEEP Sodium (132-148) mmol/L Potassium (3.6-5.2) mmol/L Chloride (98-107) mmol/L Carbon Dioxide (22-30) mmol/L Anion Gap (10-20) BUN (9-20) mg/dL Creatinine (0.8-1.5) mg/dL Est GFR ( Amer) Est GFR (Non-Af Amer) POC Glucose (mg/dL) 70 72 (65-110) mg/dL Random Glucose (75-110) mg/dL Serum Osmolality (272-300) mosm/kg Calcium (8.6-10.4) mg/dl Phosphorus (2.5-4.5) mg/dL Magnesium (1.6-2.3) mg/dL Total Bilirubin (0.2-1.3) mg/dL AST (17-59) U/L ALT (21-72) U/L Alkaline Phosphatase (38-126) U/L Ammonia (9-33) umol/L Total Protein (6.3-8.3) g/dL Albumin (3.5-5.0) g/dL Globulin (2.2-3.9) gm/dL Albumin/Globulin Ratio (1.0-2.1) Urine Osmolality (300-1000) mosm/kg Ur Random Sodium mmol/L Vancomycin Trough (5.0-10.0) ug/mL Mycoplasma pneumon IgM 216 (<770) U/mL Laboratory Results - last 24 hr 02/28/18 03/02/18 03/02/18 06:59 08:47 11:18 WBC RBC Hgb Hct MCV MCH MCHC RDW Plt Count MPV Neut % (Auto) Lymph % (Auto) [place] % (Auto) Eos % (Auto) Baso % (Auto) Neut # (Auto) Lymph # (Auto) [place] # (Auto) Eos # (Auto) Baso # (Auto) Neutrophils % (Manual) Lymphocytes % (Manual) Monocytes % (Manual) Eosinophils % (Manual) Platelet Estimate Hypochromasia (manual) Poikilocytosis (manual Anisocytosis (manual) Puncture Site pCO2 pO2 HCO3 ABG pH ABG Total CO2 ABG O2 Saturation ABG Base Excess ABG Hemoglobin ABG Carboxyhemoglobin POC ABG HHb (Measured) ABG Methemoglobin Rei Test A-a O2 Difference Respiratory Index Hgb O2 Saturation Vent Mode Mechanical Rate FiO2 Tidal Volume PEEP Sodium Potassium Chloride Carbon Dioxide Anion Gap BUN Creatinine Est GFR ( Amer) Est GFR (Non-Af Amer) POC Glucose (mg/dL) 72 70 Random Glucose Serum Osmolality Calcium Phosphorus Magnesium Total Bilirubin AST ALT Alkaline Phosphatase Ammonia Total Protein Albumin Globulin Albumin/Globulin Ratio Urine Osmolality Ur Random Sodium Vancomycin Trough Mycoplasma pneumon IgM 216 03/02/18 03/02/18 03/03/18 16:20 21:26 06:12 WBC 6.6 RBC 2.02 L Hgb 6.8 L Hct 20.0 L MCV 98.6 H MCH 33.7 H MCHC 34.2 RDW 18.6 H Plt Count 51 L MPV 9.6 Neut % (Auto) 80.0 H Lymph % (Auto) 8.3 L [place] % (Auto) 10.1 H Eos % (Auto) 1.3 Baso % (Auto) 0.3 Neut # (Auto) 5.3 Lymph # (Auto) 0.5 L [place] # (Auto) 0.7 Eos # (Auto) 0.1 Baso # (Auto) 0.0 Neutrophils % (Manual) 86 H Lymphocytes % (Manual) 6 L Monocytes % (Manual) 7 Eosinophils % (Manual) 1 Platelet Estimate Decreased L Hypochromasia (manual) Slight Poikilocytosis (manual Slight Anisocytosis (manual) Slight Puncture Site pCO2 pO2 HCO3 ABG pH ABG Total CO2 ABG O2 Saturation ABG Base Excess ABG Hemoglobin ABG Carboxyhemoglobin POC ABG HHb (Measured) ABG Methemoglobin Rei Test A-a O2 Difference Respiratory Index Hgb O2 Saturation Vent Mode Mechanical Rate FiO2 Tidal Volume PEEP Sodium Potassium Chloride Carbon Dioxide Anion Gap BUN Creatinine Est GFR ( Amer) Est GFR (Non-Af Amer) POC Glucose (mg/dL) 101 103 Random Glucose Serum Osmolality Calcium Phosphorus Magnesium Total Bilirubin AST ALT Alkaline Phosphatase Ammonia Total Protein Albumin Globulin Albumin/Globulin Ratio Urine Osmolality Ur Random Sodium Vancomycin Trough Mycoplasma pneumon IgM 03/03/18 03/03/18 03/03/18 06:12 07:25 11:58 WBC RBC Hgb Hct MCV MCH MCHC RDW Plt Count MPV Neut % (Auto) Lymph % (Auto) [place] % (Auto) Eos % (Auto) Baso % (Auto) Neut # (Auto) Lymph # (Auto) [place] # (Auto) Eos # (Auto) Baso # (Auto) Neutrophils % (Manual) Lymphocytes % (Manual) Monocytes % (Manual) Eosinophils % (Manual) Platelet Estimate Hypochromasia (manual) Poikilocytosis (manual Anisocytosis (manual) Puncture Site pCO2 pO2 HCO3 ABG pH ABG Total CO2 ABG O2 Saturation ABG Base Excess ABG Hemoglobin ABG Carboxyhemoglobin POC ABG HHb (Measured) ABG Methemoglobin Rei Test A-a O2 Difference Respiratory Index Hgb O2 Saturation Vent Mode Mechanical Rate FiO2 Tidal Volume PEEP Sodium 139 Potassium 2.9 L Chloride 90 L Carbon Dioxide 24 Anion Gap 27 H BUN 9 Creatinine 0.4 L Est GFR ( Amer) > 60 Est GFR (Non-Af Amer) > 60 POC Glucose (mg/dL) 96 Random Glucose 142 H Serum Osmolality Calcium 5.2 L* Phosphorus 1.0 L* Magnesium 1.6 Total Bilirubin 7.8 H AST 199 H D ALT 52 Alkaline Phosphatase 93 Ammonia 17 D Total Protein 6.0 L Albumin 2.1 L Globulin 3.9 Albumin/Globulin Ratio 0.5 L Urine Osmolality Ur Random Sodium Vancomycin Trough Mycoplasma pneumon IgM 03/03/18 03/03/18 03/03/18 11:58 11:58 13:52 WBC RBC Hgb Hct MCV MCH MCHC RDW Plt Count MPV Neut % (Auto) Lymph % (Auto) [place] % (Auto) Eos % (Auto) Baso % (Auto) Neut # (Auto) Lymph # (Auto) [place] # (Auto) Eos # (Auto) Baso # (Auto) Neutrophils % (Manual) Lymphocytes % (Manual) Monocytes % (Manual) Eosinophils % (Manual) Platelet Estimate Hypochromasia (manual) Poikilocytosis (manual Anisocytosis (manual) Puncture Site pCO2 pO2 HCO3 ABG pH ABG Total CO2 ABG O2 Saturation ABG Base Excess ABG Hemoglobin ABG Carboxyhemoglobin POC ABG HHb (Measured) ABG Methemoglobin Rei Test A-a O2 Difference Respiratory Index Hgb O2 Saturation Vent Mode Mechanical Rate FiO2 Tidal Volume PEEP Sodium Potassium Chloride Carbon Dioxide Anion Gap BUN Creatinine Est GFR ( Amer) Est GFR (Non-Af Amer) POC Glucose (mg/dL) 102 Random Glucose Serum Osmolality 289 Calcium Phosphorus Magnesium Total Bilirubin AST ALT Alkaline Phosphatase Ammonia Total Protein Albumin Globulin Albumin/Globulin Ratio Urine Osmolality 568 Ur Random Sodium 68 Vancomycin Trough Mycoplasma pneumon IgM 03/03/18 03/03/18 03/03/18 15:48 16:35 17:31 WBC RBC Hgb Hct MCV MCH MCHC RDW Plt Count MPV Neut % (Auto) Lymph % (Auto) [place] % (Auto) Eos % (Auto) Baso % (Auto) Neut # (Auto) Lymph # (Auto) [place] # (Auto) Eos # (Auto) Baso # (Auto) Neutrophils % (Manual) Lymphocytes % (Manual) Monocytes % (Manual) Eosinophils % (Manual) Platelet Estimate Hypochromasia (manual) Poikilocytosis (manual Anisocytosis (manual) Puncture Site Rba pCO2 37 pO2 245 H HCO3 29.1 H ABG pH 7.50 H ABG Total CO2 30.0 H ABG O2 Saturation 100.6 H ABG Base Excess 5.3 H ABG Hemoglobin 7.6 L ABG Carboxyhemoglobin 2.4 H POC ABG HHb (Measured) -0.6 L ABG Methemoglobin 1.7 Rei Test Na A-a O2 Difference 422.0 Respiratory Index 1.7 Hgb O2 Saturation 96.5 Vent Mode Prvc Mechanical Rate 16 FiO2 100.0 Tidal Volume 500 PEEP 5 Sodium Potassium Chloride Carbon Dioxide Anion Gap BUN Creatinine Est GFR ( Amer) Est GFR (Non-Af Amer) POC Glucose (mg/dL) 110 Random Glucose Serum Osmolality Calcium Phosphorus Magnesium Total Bilirubin AST ALT Alkaline Phosphatase Ammonia Total Protein Albumin Globulin Albumin/Globulin Ratio Urine Osmolality Ur Random Sodium Vancomycin Trough 11.5 H Mycoplasma pneumon IgM Attending/Attestation - Attestation I have personally seen and examined this patient.: Yes I have fully participated in the care of the patient.: Yes I have reviewed all pertinent clinical information: Yes Notes (Text): 03/03/18 18:23 I have seen and examined the patient. Medical records, lab studies, and imaging were reviewed by me and a management plan was formulated on multidisciplinary rounds with resident Dr. Miller. I agree with their documented assessment and plan. Patient went into acute respiratory failure secondary to pneumonia with significant atelectasis. Copious secretions suctioned s/p intubation. Continue Zosyn, duonebs and mucolytics. Critical Care Time 35 minutes. Multi-disciplinary rounds were performed with house staff, nursing, speech therapy, respiratory therapy, pharmacy and nutrition with integrated input from the primary team/attending and other consulting services. The documented time is cumulative and includes review of patient data/exams/labs/chart review and examination of the patient on rounds and throughout the day; time is exclusive of any procedures or teaching time. 03/03/18 18:26
[2018-03-03 17:35] LABS: ARTERIAL BLOOD GAS HCO3 29.1 mmol/L (21-28); ARTERIAL BLOOD GAS HEMOGLOBIN 7.6 g/dL (11.7-17.4); ARTERIAL BLOOD GAS O2 SAT 100.6 % (95-98); ARTERIAL BLOOD GAS PCO2 37 mm/Hg (35-45); ARTERIAL BLOOD GAS PO2 245 mm/Hg (80-100)
[2018-03-03] MEDS ORDERED: guaiFENesin 100 mg/5 ml Syrup UD PO PRN (18:27)
--- NOTE | 2018-03-03 18:33 | CP.PCM.CON ---
History of Present Illness - History of Present Illness History of Present Illness: 57 yo [place] male is referred for ID eval of pneumonia/ resp failure Patient is homeless alcoholic here many time for detox Found to have chronic SDH - neurosurg following currently intubated in ICU and unable to provide history Family is estranged - has daughter in [place] NKDA FH- n/c Review of Systems - Review of Systems All systems: reviewed and no additional remarkable complaints except Past Patient History - Infectious Disease Hx of Infectious Diseases: None - Past Medical History & Family History Past Medical History?: No - Past Social History Smoking Status: Unknown If Ever Smoked - MUSCULOSKELETAL/RHEUMATOLOGICAL Hx Falls: Yes - PSYCHIATRIC Hx Substance Use: No - SURGICAL HISTORY Hx Surgeries: No - ANESTHESIA Hx Anesthesia: No Meds Allergies/Adverse Reactions: Allergies Allergy/AdvReac Type Severity Reaction Status Date / Time No Known Allergies Allergy Verified 02/27/18 12:04 - Medications Medications: Current Medications Acetazolamide (Diamox 500 Mg Inj) 500 mg IV BID [facility] Stop: 03/04/18 10:01 Albuterol/Ipratropium (Duoneb 3 Mg/0.5 Mg (3 Ml) Ud) 3 ml INH RQ6 [facility] Dextrose (Glutose 15) 0 gm PO ONCE PRN; Protocol PRN Reason: Hypoglycemia Protocol Folic Acid (Folic Acid) 1 mg PO DAILY [facility] Last Admin: 03/03/18 10:00 Dose: Not Given Glucagon (Glucagen Diagnostic Kit) 1 mg IM STAT PRN; Protocol PRN Reason: Hypoglycemia Protocol Guaifenesin (Robitussin) 100 mg PO Q4H PRN PRN Reason: Cough Piperacillin Sod/Tazobactam Sod (Zosyn 3.375 Gm Iv Premix) 3.375 gm in 50 mls @ 100 mls/hr IVPB Q6H [facility]; Protocol Last Admin: 03/03/18 16:36 Dose: 100 mls/hr Dextrose (Dextrose 5% In Water 1000 Ml) 1,000 mls @ 0 mls/hr IV .Q0M PRN; P rotocol PRN Reason: Hypoglycemia Protocol Dexmedetomidine HCl 200 mcg/ (Sodium Chloride) 50 mls @ 3.79 mls/hr IV TITR PRN; Protocol PRN Reason: Agitation Last Titration: 03/03/18 13:57 Dose: 0.3 mcg/kg/hr, 5.69 mls/hr Potassium Phosphate 15 mmole/ (Sodium Chloride) 255 mls @ 42.5 mls/hr IVPB ONCE ONE Stop: 03/03/18 18:59 Last Admin: 03/03/18 13:50 Dose: 42.5 mls/hr Vancomycin/Sodium Chloride (Vancomycin 1 Gm/Ns 200 Ml) 1 gm in 200 mls @ 133 mls/hr IVPB Q8H [facility]; Protocol Stop: 03/08/18 19:01 Lactobacillus Acidophilus (Bacid Acidophilus) 1 cap PO BID [facility] Last Admin: 03/03/18 10:00 Dose: Not Given Lorazepam (Ativan) 1 mg IVP Q6H PRN PRN Reason: Agitation Last Admin: 03/03/18 01:24 Dose: 1 mg Multivitamins (Hexavitamin) 1 tab PO DAILY [facility] Last Admin: 03/03/18 10:00 Dose: Not Given Pantoprazole Sodium (Protonix Inj) 40 mg IVP DAILY [facility] Last Admin: 03/03/18 11:03 Dose: 40 mg Thiamine HCl (Vitamin B1 Tab) 100 mg PO BID [facility] Last Admin: 03/03/18 10:00 Dose: Not Given Physical Exam - Constitutional Appears: Confused, Cachectic, Chronically Ill - Head Exam Head Exam: ATRAUMATIC, NORMOCEPHALIC - Eye Exam Eye Exam: absent: Scleral icterus - ENT Exam ENT Exam: Mucous Membranes Dry - Neck Exam Neck exam: Positive for: Normal Inspection - Respiratory Exam Respiratory Exam: Decreased Breath Sounds, Rhonchi - Cardiovascular Exam Cardiovascular Exam: REGULAR RHYTHM, +S1, +S2 - GI/Abdominal Exam GI & Abdominal Exam: Diminished Bowel Sounds, Distended, Soft. absent: Guarding, Rebound, Rigid, Tenderness - Rectal Exam Rectal Exam: Deferred - Exam Exam: NORMAL INSPECTION - Extremities Exam Extremities exam: Positive for: pedal edema, pedal pulses present. Negative for: calf tenderness, tenderness - Back Exam Back exam: absent: CVA tenderness (L), CVA tenderness (R), paraspinal tenderness - Neurological Exam Neurological exam: Altered, CN II-XII Intact - Psychiatric Exam Psychiatric exam: Depressed - Skin Skin Exam: Dry Results - Vital Signs Recent Vital Signs: Last Vital Signs Temp 96.8 F L 03/03/18 12:00 Pulse 61 03/03/18 15:03 Resp 16 03/03/18 15:03 BP 91/52 L 03/03/18 15:03 Pulse Ox 100 03/03/18 15:03 - Labs Result Diagrams: 03/03/18 06:12 03/03/18 06:12 Labs: Laboratory Results - last 24 hr 02/28/18 03/02/18 03/02/18 06:59 08:47 11:18 WBC RBC Hgb Hct MCV MCH MCHC RDW Plt Count MPV Neut % (Auto) Lymph % (Auto) [place] % (Auto) Eos % (Auto) Baso % (Auto) Neut # (Auto) Lymph # (Auto) [place] # (Auto) Eos # (Auto) Baso # (Auto) Neutrophils % (Manual) Lymphocytes % (Manual) Monocytes % (Manual) Eosinophils % (Manual) Platelet Estimate Hypochromasia (manual) Poikilocytosis (manual Anisocytosis (manual) Puncture Site pCO2 pO2 HCO3 ABG pH ABG Total CO2 ABG O2 Saturation ABG Base Excess ABG Hemoglobin ABG Carboxyhemoglobin POC ABG HHb (Measured) ABG Methemoglobin Rei Test A-a O2 Difference Respiratory Index Hgb O2 Saturation Vent Mode Mechanical Rate FiO2 Tidal Volume PEEP Sodium Potassium Chloride Carbon Dioxide Anion Gap BUN Creatinine Est GFR ( Amer) Est GFR (Non-Af Amer) POC Glucose (mg/dL) 72 70 Random Glucose Serum Osmolality Calcium Phosphorus Magnesium Total Bilirubin AST ALT Alkaline Phosphatase Ammonia Total Protein Albumin Globulin Albumin/Globulin Ratio Urine Osmolality Ur Random Sodium Vancomycin Trough Mycoplasma pneumon IgM 216 03/02/18 03/02/18 03/03/18 16:20 21:26 06:12 WBC 6.6 RBC 2.02 L Hgb 6.8 L Hct 20.0 L MCV 98.6 H MCH 33.7 H MCHC 34.2 RDW 18.6 H Plt Count 51 L MPV 9.6 Neut % (Auto) 80.0 H Lymph % (Auto) 8.3 L [place] % (Auto) 10.1 H Eos % (Auto) 1.3 Baso % (Auto) 0.3 Neut # (Auto) 5.3 Lymph # (Auto) 0.5 L [place] # (Auto) 0.7 Eos # (Auto) 0.1 Baso # (Auto) 0.0 Neutrophils % (Manual) 86 H Lymphocytes % (Manual) 6 L Monocytes % (Manual) 7 Eosinophils % (Manual) 1 Platelet Estimate Decreased L Hypochromasia (manual) Slight Poikilocytosis (manual Slight Anisocytosis (manual) Slight Puncture Site pCO2 pO2 HCO3 ABG pH ABG Total CO2 ABG O2 Saturation ABG Base Excess ABG Hemoglobin ABG Carboxyhemoglobin POC ABG HHb (Measured) ABG Methemoglobin Rei Test A-a O2 Difference Respiratory Index Hgb O2 Saturation Vent Mode Mechanical Rate FiO2 Tidal Volume PEEP Sodium Potassium Chloride Carbon Dioxide Anion Gap BUN Creatinine Est GFR ( Amer) Est GFR (Non-Af Amer) POC Glucose (mg/dL) 101 103 Random Glucose Serum Osmolality Calcium Phosphorus Magnesium Total Bilirubin AST ALT Alkaline Phosphatase Ammonia Total Protein Albumin Globulin Albumin/Globulin Ratio Urine Osmolality Ur Random Sodium Vancomycin Trough Mycoplasma pneumon IgM 03/03/18 03/03/18 03/03/18 06:12 07:25 11:58 WBC RBC Hgb Hct MCV MCH MCHC RDW Plt Count MPV Neut % (Auto) Lymph % (Auto) [place] % (Auto) Eos % (Auto) Baso % (Auto) Neut # (Auto) Lymph # (Auto) [place] # (Auto) Eos # (Auto) Baso # (Auto) Neutrophils % (Manual) Lymphocytes % (Manual) Monocytes % (Manual) Eosinophils % (Manual) Platelet Estimate Hypochromasia (manual) Poikilocytosis (manual Anisocytosis (manual) Puncture Site pCO2 pO2 HCO3 ABG pH ABG Total CO2 ABG O2 Saturation ABG Base Excess ABG Hemoglobin ABG Carboxyhemoglobin POC ABG HHb (Measured) ABG Methemoglobin Rei Test A-a O2 Difference Respiratory Index Hgb O2 Saturation Vent Mode Mechanical Rate FiO2 Tidal Volume PEEP Sodium 139 Potassium 2.9 L Chloride 90 L Carbon Dioxide 24 Anion Gap 27 H BUN 9 Creatinine 0.4 L Est GFR ( Amer) > 60 Est GFR (Non-Af Amer) > 60 POC Glucose (mg/dL) 96 Random Glucose 142 H Serum Osmolality Calcium 5.2 L* Phosphorus 1.0 L* Magnesium 1.6 Total Bilirubin 7.8 H AST 199 H D ALT 52 Alkaline Phosphatase 93 Ammonia 17 D Total Protein 6.0 L Albumin 2.1 L Globulin 3.9 Albumin/Globulin Ratio 0.5 L Urine Osmolality Ur Random Sodium Vancomycin Trough Mycoplasma pneumon IgM 03/03/18 03/03/18 03/03/18 11:58 11:58 13:52 WBC RBC Hgb Hct MCV MCH MCHC RDW Plt Count MPV Neut % (Auto) Lymph % (Auto) [place] % (Auto) Eos % (Auto) Baso % (Auto) Neut # (Auto) Lymph # (Auto) [place] # (Auto) Eos # (Auto) Baso # (Auto) Neutrophils % (Manual) Lymphocytes % (Manual) Monocytes % (Manual) Eosinophils % (Manual) Platelet Estimate Hypochromasia (manual) Poikilocytosis (manual Anisocytosis (manual) Puncture Site pCO2 pO2 HCO3 ABG pH ABG Total CO2 ABG O2 Saturation ABG Base Excess ABG Hemoglobin ABG Carboxyhemoglobin POC ABG HHb (Measured) ABG Methemoglobin Rei Test A-a O2 Difference Respiratory Index Hgb O2 Saturation Vent Mode Mechanical Rate FiO2 Tidal Volume PEEP Sodium Potassium Chloride Carbon Dioxide Anion Gap BUN Creatinine Est GFR ( Amer) Est GFR (Non-Af Amer) POC Glucose (mg/dL) 102 Random Glucose Serum Osmolality 289 Calcium Phosphorus Magnesium Total Bilirubin AST ALT Alkaline Phosphatase Ammonia Total Protein Albumin Globulin Albumin/Globulin Ratio Urine Osmolality 568 Ur Random Sodium 68 Vancomycin Trough Mycoplasma pneumon IgM 03/03/18 03/03/18 03/03/18 15:48 16:35 17:31 WBC RBC Hgb Hct MCV MCH MCHC RDW Plt Count MPV Neut % (Auto) Lymph % (Auto) [place] % (Auto) Eos % (Auto) Baso % (Auto) Neut # (Auto) Lymph # (Auto) [place] # (Auto) Eos # (Auto) Baso # (Auto) Neutrophils % (Manual) Lymphocytes % (Manual) Monocytes % (Manual) Eosinophils % (Manual) Platelet Estimate Hypochromasia (manual) Poikilocytosis (manual Anisocytosis (manual) Puncture Site Rba pCO2 37 pO2 245 H HCO3 29.1 H ABG pH 7.50 H ABG Total CO2 30.0 H ABG O2 Saturation 100.6 H ABG Base Excess 5.3 H ABG Hemoglobin 7.6 L ABG Carboxyhemoglobin 2.4 H POC ABG HHb (Measured) -0.6 L ABG Methemoglobin 1.7 Rei Test Na A-a O2 Difference 422.0 Respiratory Index 1.7 Hgb O2 Saturation 96.5 Vent Mode Prvc Mechanical Rate 16 FiO2 100.0 Tidal Volume 500 PEEP 5 Sodium Potassium Chloride Carbon Dioxide Anion Gap BUN Creatinine Est GFR ( Amer) Est GFR (Non-Af Amer) POC Glucose (mg/dL) 110 Random Glucose Serum Osmolality Calcium Phosphorus Magnesium Total Bilirubin AST ALT Alkaline Phosphatase Ammonia Total Protein Albumin Globulin Albumin/Globulin Ratio Urine Osmolality Ur Random Sodium Vancomycin Trough 11.5 H Mycoplasma pneumon IgM Assessment & Plan (1) Pneumonia Status: Acute (2) Sepsis Status: Acute (3) Subdural hemorrhage Status: Acute (4) Alcohol abuse with intoxication Status: Acute (5) Chronic venous stasis dermatitis Status: Acute - Assessment and Plan (Free Text) Assessment: 57 yo [place] male is referred for ID eval of pneumonia/ resp failure Likely aspiration as cause for pneumonia- sputum cultures will be sent from [facility] Vanco adjusted to 1 g q8h to obtain trough of 15-20 - however if sputum neg for MRSA may d/c Vanco Cont Zosyn for anaerobes / strep pneumo and Gram negatives Poor prognosis from outset
--- NOTE | 2018-03-03 19:16 | CARD ---
APPROVED REPORT Date of service: 03/03/2018 EXAM: Two-dimensional and M-mode echocardiogram with Doppler and color Doppler. Other Information Quality : FairRhythm : NSR INDICATION Infection: EDEMA,PNEUMONIA 2D DIMENSIONS LA [id number] (18-58mL)IVC0.00 cm M-Mode DIMENSIONS RVDd2.57 (2.1-3.2cm)Left Atrium (MM)4.03 (2.5-4.0cm) IVSd1.11 (0.7-1.1cm)Aortic Root2.25 (2.2-3.7cm) LVDd5.17 (4.0-5.6cm)Aortic Cusp Exc.1.56 (1.5-2.0cm) PWd0.75 (0.7-1.1cm)FS (%) 39 % LVDs3.16 (2.0-3.8cm)LVEF (%)69 (>50%) Mitral Valve MV E Mltvkkbs48.3cm/sMV A Nkrggnux05.5cm/sE/A ratio1.0 TDI Lateral E' Peak V8.93cm/sMedial E' Peak V9.84cm/sE/Lateral E'10.4 E/Medial E'9.5 Tricuspid Valve TR Peak Ervooutr469dx/sTR Peak [id number] <Conclusion> poor window. tds. la is mildly dilated. normal size lv,ra & rv. normal lv wall motion,thickness,systolic & diastolic function with lvef of 55-60%. mac. aortic,tv & pv are probably normal. mild tr with normal pulmonary systolic pressures of 31 mm of hg. normal size ivc & aortic root. no pericardial effusion.
[2018-03-03] MEDS: Albuterol-Ipratrop 3 mg / 0.5 (3 ml) UD INH SCH (20:20)
[2018-03-03 20:49] LABS: BASO # 0.1 K/uL (0.0-0.2); BASO % 1.1 % (0.0-2.0); EOS # 0.1 K/uL (0.0-0.7); EOS % 2.3 % (0.0-4.0); HEMOGLOBIN 7.5 g/dL (12.0-18.0); LYMPH # 0.8 K/uL (1.0-4.3); LYMPH % 13.4 % (20.0-40.0); MEAN CELL VOLUME 100.2 fL (80.0-94.0); MEAN CORPUSCULAR HGB CONC 33.9 g/dL (33.0-37.0); MEAN PLATELET VOLUME 9.5 fL (7.2-11.7); MONO # 0.6 K/uL (0.0-0.8); NEUT # 4.1 K/uL (1.8-7.0); NEUT % 72.2 % (50.0-75.0); NRBC % 0.1 % (0.0-2.0); RBC 2.21 Mil/uL (4.40-5.90); RED CELL DISTRIBUTION WIDTH 18.8 % (11.5-14.5); WHITE BLOOD COUNT 5.7 K/uL (4.8-10.8)
[2018-03-03 21:13] LABS: ALB/GLOB RATIO 0.5 (1.0-2.1); ALBUMIN 2.1 g/dL (3.5-5.0); ALT/SGPT 63 U/L (21-72); AST/SGOT 227 U/L (17-59); BLOOD UREA NITROGEN 11 mg/dL (9-20); CALCIUM 6.3 mg/dl (8.6-10.4); GFR NON-AFRICAN AMERICAN > 60
[2018-03-03] MEDS ORDERED: Potassium Phosphate 15 MMOLE in Sodium Chloride 0.9% 250 ML IV ONE (23:02)
[2018-03-04] MEDS ORDERED: Sodium Chloride 0.9% 1,000 ML IV SCH (00:45)
[2018-03-04] MEDS: Albuterol-Ipratrop 3 mg / 0.5 (3 ml) UD INH SCH ×4 (01:54→20:03)
[2018-03-04] MEDS: Vancomycin 1 gm/NS 200 ml 1 GM/200 ML BAG IVPB SCH ×2 (02:17→11:35)
[2018-03-04] MEDS: Piperacill/Tazo 3.375gm in Dex 3.375 GM/50 ML BAG IVPB SCH ×3 (04:17→16:29)
[2018-03-04 05:54] LABS: ARTERIAL BLOOD GAS HEMOGLOBIN 7.9 g/dL (11.7-17.4); ARTERIAL BLOOD GAS O2 SAT 100.6 % (95-98); ARTERIAL BLOOD GAS PCO2 38 mm/Hg (35-45); ARTERIAL BLOOD GAS PO2 148 mm/Hg (80-100); ARTERIAL BLOOD GAS TCO2 24.7 mmol/L (22-28)
[2018-03-04 06:27] LABS: BASO # 0.1 K/uL (0.0-0.2); BASO % 0.9 % (0.0-2.0); EOS # 0.1 K/uL (0.0-0.7); EOS % 2.3 % (0.0-4.0); HEMOGLOBIN 7.7 g/dL (12.0-18.0); LYMPH # 1.3 K/uL (1.0-4.3); LYMPH % 21.6 % (20.0-40.0); MEAN CELL VOLUME 101.2 fL (80.0-94.0); MEAN CORPUSCULAR HEMOGLOBIN 33.7 pg (27.0-31.0); MEAN CORPUSCULAR HGB CONC 33.3 g/dL (33.0-37.0); MEAN PLATELET VOLUME 10.2 fL (7.2-11.7); MONO # 0.6 K/uL (0.0-0.8); MONO % 10.5 % (0.0-10.0); NEUT # 3.9 K/uL (1.8-7.0); NEUT % 64.7 % (50.0-75.0); NRBC % 0.2 % (0.0-2.0); RBC 2.3 Mil/uL (4.40-5.90); RED CELL DISTRIBUTION WIDTH 19.3 % (11.5-14.5)
[2018-03-04 06:54] LABS: ALB/GLOB RATIO 0.5 (1.0-2.1); ALBUMIN 2.1 g/dL (3.5-5.0); ALT/SGPT 61 U/L (21-72); AST/SGOT 214 U/L (17-59); BLOOD UREA NITROGEN 11 mg/dL (9-20); CALCIUM 6.4 mg/dl (8.6-10.4); GFR NON-AFRICAN AMERICAN > 60; URIC ACID 2.1 mg/dL (3.5-8.5)
[2018-03-04] MEDS ORDERED: Sodium Phosphate 30 MMOLE in Sodium Chloride 0.9% 250 ML IVPB ONE (07:44)
--- NOTE | 2018-03-04 09:22 | CP.PCM.CON ---
History of Present Illness - History of Present Illness History of Present Illness: H and P: Patient is a 57-year-old male with a past medical history of multiple visits to the ED for alcohol intoxication who presents to [facility] brought in by ambulance for alcohol intoxication. Of note, the patient is homeless and was found on someone else's property. ROS could not be obtained due to clinical condition. While in the ED: chest x-ray was obtained and revealed right lower lobe infiltrates. Patient treated empirically CAP. Pending cultures. Patient currently not arousable to painful stimuli, however he grimaces. A complete HPI and ROS could not be obtained due clinical condition. Hospital course: Treated for pneumonia, has had respiratory failure requiring placement on vent. Suffered head trauma- seen by neurosurgery, on medical management Imaging consistent with pneumonia, cirrhosis Called for hyponatremia evaluation, Na initially 123; now 137 with use NS IV fluids Also sedated, on GT feeds Initial Reba low, <5; urine osms have been elevated No known CKD Review of Systems - Review of Systems Systems not reviewed;Unavailable: Altered Mental Status Past Patient History - Infectious Disease Hx of Infectious Diseases: None - Past Medical History & Family History Past Medical History?: No Past Family History: Reviewed and not pertinent - Past Social History Smoking Status: Unknown If Ever Smoked - MUSCULOSKELETAL/RHEUMATOLOGICAL Hx Falls: Yes - PSYCHIATRIC Hx Substance Use: No - SURGICAL HISTORY Hx Surgeries: No - ANESTHESIA Hx Anesthesia: No Meds Allergies/Adverse Reactions: Allergies Allergy/AdvReac Type Severity Reaction Status Date / Time No Known Allergies Allergy Verified 02/27/18 12:04 - Medications Medications: Current Medications Acetazolamide (Diamox 500 Mg Inj) 500 mg IV BID [facility] Stop: 03/04/18 10:01 Last Admin: 03/03/18 18:56 Dose: 500 mg Albuterol/Ipratropium (Duoneb 3 Mg/0.5 Mg (3 Ml) Ud) 3 ml INH RQ6 [facility] Last Admin: 03/04/18 07:47 Dose: 3 ml Dextrose (Glutose 15) 0 gm PO ONCE PRN; Protocol PRN Reason: Hypoglycemia Protocol Folic Acid (Folic Acid) 1 mg PO DAILY [facility] Last Admin: 03/03/18 10:00 Dose: Not Given Glucagon (Glucagen Diagnostic Kit) 1 mg IM STAT PRN; Protocol PRN Reason: Hypoglycemia Protocol Guaifenesin (Robitussin) 100 mg PO Q4H PRN PRN Reason: Cough Piperacillin Sod/Tazobactam Sod (Zosyn 3.375 Gm Iv Premix) 3.375 gm in 50 mls @ 100 mls/hr IVPB Q6H [facility]; Protocol Last Admin: 03/04/18 04:17 Dose: 100 mls/hr Dextrose (Dextrose 5% In Water 1000 Ml) 1,000 mls @ 0 mls/hr IV .Q0M PRN; Protocol PRN Reason: Hypoglycemia Protocol Dexmedetomidine HCl 200 mcg/ (Sodium Chloride) 50 mls @ 3.79 mls/hr IV TITR PRN; Protocol PRN Reason: Agitation Last Titration: 03/03/18 23:53 Dose: 0.1 mcg/kg/hr, 1.9 mls/hr Vancomycin/Sodium Chloride (Vancomycin 1 Gm/Ns 200 Ml) 1 gm in 200 mls @ 133 mls/hr IVPB Q8H [facility]; Protocol Stop: 03/08/18 19:01 Last Admin: 03/04/18 02:17 Dose: 133 mls/hr Sodium Chloride (Sodium Chloride 0.9%) 1,000 mls @ 75 mls/hr IV .[id number] [facility] Last Admin: 03/04/18 01:02 Dose: 75 mls/hr Sodium Phosphate 30 mmole/ (Sodium Chloride) 260 mls @ 50 mls/hr IVPB .[id number] [facility] Stop: 03/04/18 12:55 Last Admin: 03/04/18 08:22 Dose: 50 mls/hr Lactobacillus Acidophilus (Bacid Acidophilus) 1 cap PO BID [facility] Last Admin: 03/03/18 18:43 Dose: 1 cap Lorazepam (Ativan) 1 mg IVP Q6H PRN PRN Reason: Agitation Last Admin: 03/03/18 01:24 Dose: 1 mg Multivitamins (Hexavitamin) 1 tab PO DAILY [facility] Last Admin: 03/03/18 10:00 Dose: Not Given Pantoprazole Sodium (Protonix Inj) 40 mg IVP DAILY [facility] Last Admin: 03/03/18 11:03 Dose: 40 mg Thiamine HCl (Vitamin B1 Tab) 100 mg PO BID [facility] Last Admin: 03/03/18 18:43 Dose: 100 mg Physical Exam - Constitutional Appears: In Acute Distress, Confused, Chronically Ill - Head Exam Head Exam: NORMOCEPHALIC - Neck Exam Neck exam: Positive for: Normal Inspection. Negative for: Tenderness - Respiratory Exam Respiratory Exam: Clear to Auscultation Bilateral, Respiratory Distress - Cardiovascular Exam Cardiovascular Exam: REGULAR RHYTHM, +S1 - GI/Abdominal Exam GI & Abdominal Exam: Distended, Soft - Extremities Exam Extremities exam: Positive for: normal inspection. Negative for: tenderness - Neurological Exam Neurological exam: Alert, CN II-XII Intact - Skin Skin Exam: Dry, Warm Results - Vital Signs Recent Vital Signs: Last Vital Signs Temp 97.3 F L 03/04/18 08:00 Pulse 67 03/04/18 07:00 Resp 16 03/04/18 08:00 BP 91/66 L 03/04/18 06:03 Pulse Ox 100 03/04/18 07:00 - Labs Result Diagrams: 03/04/18 06:19 03/04/18 06:19 Labs: Laboratory Results - last 24 hr 02/28/18 03/02/18 03/02/18 06:59 08:47 11:18 WBC RBC Hgb Hct MCV MCH MCHC RDW Plt Count MPV Neut % (Auto) Lymph % (Auto) Tyler % (Auto) Eos % (Auto) Baso % (Auto) Neut # (Auto) Lymph # (Auto) Tyler # (Auto) Eos # (Auto) Baso # (Auto) Puncture Site pCO2 pO2 HCO3 ABG pH ABG Total CO2 ABG O2 Saturation ABG Base Excess ABG Hemoglobin ABG Carboxyhemoglobin POC ABG HHb (Measured) ABG Methemoglobin Rei Test A-a O2 Difference Respiratory Index Hgb O2 Saturation Vent Mode Mechanical Rate FiO2 Tidal Volume PEEP Sodium Potassium Chloride Carbon Dioxide Anion Gap BUN Creatinine Est GFR ( Amer) Est GFR (Non-Af Amer) POC Glucose (mg/dL) 72 70 Random Glucose Serum Osmolality Uric Acid Calcium Phosphorus Magnesium Total Bilirubin AST ALT Alkaline Phosphatase Ammonia Total Protein Albumin Globulin Albumin/Globulin Ratio Urine Osmolality Ur Random Sodium Vancomycin Trough Mycoplasma pneumon IgM 216 03/02/18 03/02/18 03/03/18 16:20 21:26 07:25 WBC RBC Hgb Hct MCV MCH MCHC RDW Plt Count MPV Neut % (Auto) Lymph % (Auto) Tyler % (Auto) Eos % (Auto) Baso % (Auto) Neut # (Auto) Lymph # (Auto) Tyler # (Auto) Eos # (Auto) Baso # (Auto) Puncture Site pCO2 pO2 HCO3 ABG pH ABG Total CO2 ABG O2 Saturation ABG Base Excess ABG Hemoglobin ABG Carboxyhemoglobin POC ABG HHb (Measured) ABG Methemoglobin Rei Test A-a O2 Difference Respiratory Index Hgb O2 Saturation Vent Mode Mechanical Rate FiO2 Tidal Volume PEEP Sodium Potassium Chloride Carbon Dioxide Anion Gap BUN Creatinine Est GFR ( Amer) Est GFR (Non-Af Amer) POC Glucose (mg/dL) 101 103 96 Random Glucose Serum Osmolality Uric Acid Calcium Phosphorus Magnesium Total Bilirubin AST ALT Alkaline Phosphatase Ammonia Total Protein Albumin Globulin Albumin/Globulin Ratio Urine Osmolality Ur Random Sodium Vancomycin Trough Mycoplasma pneumon IgM 03/03/18 03/03/18 03/03/18 11:58 11:58 11:58 WBC RBC Hgb Hct MCV MCH MCHC RDW Plt Count MPV Neut % (Auto) Lymph % (Auto) Tyler % (Auto) Eos % (Auto) Baso % (Auto) Neut # (Auto) Lymph # (Auto) Tyler # (Auto) Eos # (Auto) Baso # (Auto) Puncture Site pCO2 pO2 HCO3 ABG pH ABG Total CO2 ABG O2 Saturation ABG Base Excess ABG Hemoglobin ABG Carboxyhemoglobin POC ABG HHb (Measured) ABG Methemoglobin Rei Test A-a O2 Difference Respiratory Index Hgb O2 Saturation Vent Mode Mechanical Rate FiO2 Tidal Volume PEEP Sodium Potassium Chloride Carbon Dioxide Anion Gap BUN Creatinine Est GFR ( Amer) Est GFR (Non-Af Amer) POC Glucose (mg/dL) 102 Random Glucose Serum Osmolality 289 Uric Acid Calcium Phosphorus Magnesium Total Bilirubin AST ALT Alkaline Phosphatase Ammonia 17 D Total Protein Albumin Globulin Albumin/Globulin Ratio Urine Osmolality Ur Random Sodium Vancomycin Trough Mycoplasma pneumon IgM 03/03/18 03/03/18 03/03/18 13:52 15:48 16:35 WBC RBC Hgb Hct MCV MCH MCHC RDW Plt Count MPV Neut % (Auto) Lymph % (Auto) Tyler % (Auto) Eos % (Auto) Baso % (Auto) Neut # (Auto) Lymph # (Auto) Tyler # (Auto) Eos # (Auto) Baso # (Auto) Puncture Site pCO2 pO2 HCO3 ABG pH ABG Total CO2 ABG O2 Saturation ABG Base Excess ABG Hemoglobin ABG Carboxyhemoglobin POC ABG HHb (Measured) ABG Methemoglobin Rei Test A-a O2 Difference Respiratory Index Hgb O2 Saturation Vent Mode Mechanical Rate FiO2 Tidal Volume PEEP Sodium Potassium Chloride Carbon Dioxide Anion Gap BUN Creatinine Est GFR ( Amer) Est GFR (Non-Af Amer) POC Glucose (mg/dL) 110 Random Glucose Serum Osmolality Uric Acid Calcium Phosphorus Magnesium Total Bilirubin AST ALT Alkaline Phosphatase Ammonia Total Protein Albumin Globulin Albumin/Globulin Ratio Urine Osmolality 568 Ur Random Sodium 68 Vancomycin Trough 11.5 H Mycoplasma pneumon IgM 03/03/18 03/03/18 03/03/18 17:31 18:35 20:44 WBC 5.7 RBC 2.21 L Hgb 7.5 L Hct 22.1 L MCV 100.2 H MCH 34.0 H MCHC 33.9 RDW 18.8 H Plt Count 55 L MPV 9.5 Neut % (Auto) 72.2 Lymph % (Auto) 13.4 L Tyler % (Auto) 11.0 H Eos % (Auto) 2.3 Baso % (Auto) 1.1 Neut # (Auto) 4.1 Lymph # (Auto) 0.8 L Tyler # (Auto) 0.6 Eos # (Auto) 0.1 Baso # (Auto) 0.1 Puncture Site Rba pCO2 37 pO2 245 H HCO3 29.1 H ABG pH 7.50 H ABG Total CO2 30.0 H ABG O2 Saturation 100.6 H ABG Base Excess 5.3 H ABG Hemoglobin 7.6 L ABG Carboxyhemoglobin 2.4 H POC ABG HHb (Measured) -0.6 L ABG Methemoglobin 1.7 Rei Test Na A-a O2 Difference 422.0 Respiratory Index 1.7 Hgb O2 Saturation 96.5 Vent Mode Prvc Mechanical Rate 16 FiO2 100.0 Tidal Volume 500 PEEP 5 Sodium Potassium Chloride Carbon Dioxide Anion Gap BUN Creatinine Est GFR ( Amer) Est GFR (Non-Af Amer) POC Glucose (mg/dL) 115 H Random Glucose Serum Osmolality Uric Acid Calcium Phosphorus Magnesium Total Bilirubin AST ALT Alkaline Phosphatase Ammonia Total Protein Albumin Globulin Albumin/Globulin Ratio Urine Osmolality Ur Random Sodium Vancomycin Trough Mycoplasma pneumon IgM 03/03/18 03/04/18 03/04/18 20:44 01:23 05:25 WBC RBC Hgb Hct MCV MCH MCHC RDW Plt Count MPV Neut % (Auto) Lymph % (Auto) Tyler % (Auto) Eos % (Auto) Baso % (Auto) Neut # (Auto) Lymph # (Auto) Tyler # (Auto) Eos # (Auto) Baso # (Auto) Puncture Site pCO2 pO2 HCO3 ABG pH ABG Total CO2 ABG O2 Saturation ABG Base Excess ABG Hemoglobin ABG Carboxyhemoglobin POC ABG HHb (Measured) ABG Methemoglobin Rei Test A-a O2 Difference Respiratory Index Hgb O2 Saturation Vent Mode Mechanical Rate FiO2 Tidal Volume PEEP Sodium 135 Potassium 3.4 L Chloride 101 Carbon Dioxide 26 Anion Gap 11 BUN 11 Creatinine 0.7 L Est GFR ( Amer) > 60 Est GFR (Non-Af Amer) > 60 POC Glucose (mg/dL) 118 H 130 H Random Glucose 115 H Serum Osmolality Uric Acid Calcium 6.3 L Phosphorus 1.2 L Magnesium 2.4 H Total Bilirubin 8.2 H AST 227 H ALT 63 Alkaline Phosphatase 99 Ammonia Total Protein 5.9 L Albumin 2.1 L Globulin 3.8 Albumin/Globulin Ratio 0.5 L Urine Osmolality Ur Random Sodium Vancomycin Trough Mycoplasma pneumon IgM 03/04/18 03/04/18 03/04/18 05:40 06:19 06:19 WBC RBC Hgb Hct MCV MCH MCHC RDW Plt Count MPV Neut % (Auto) Lymph % (Auto) Tyler % (Auto) Eos % (Auto) Baso % (Auto) Neut # (Auto) Lymph # (Auto) Tyler # (Auto) Eos # (Auto) Baso # (Auto) Puncture Site R bra pCO2 38 pO2 148 H HCO3 24.0 ABG pH 7.40 ABG Total CO2 24.7 ABG O2 Saturation 100.6 H ABG Base Excess -1.2 ABG Hemoglobin 7.9 L ABG Carboxyhemoglobin 2.5 H POC ABG HHb (Measured) -0.6 L ABG Methemoglobin 1.2 Rei Test Na A-a O2 Difference 232.0 Respiratory Index 1.6 Hgb O2 Saturation 96.9 Vent Mode Prvc Mechanical Rate 16 FiO2 60.0 Tidal Volume 500 PEEP 5 Sodium 137 Potassium 3.6 Chloride 103 Carbon Dioxide 24 Anion Gap 14 BUN 11 Creatinine 0.7 L Est GFR ( Amer) > 60 Est GFR (Non-Af Amer) > 60 POC Glucose (mg/dL) Random Glucose 107 Serum Osmolality Uric Acid 2.1 L Calcium 6.4 L Phosphorus 1.8 L Magnesium 2.2 Total Bilirubin 7.5 H AST 214 H ALT 61 Alkaline Phosphatase 97 Ammonia Total Protein 5.9 L Albumin 2.1 L Globulin 3.8 Albumin/Globulin Ratio 0.5 L Urine Osmolality Ur Random Sodium Vancomycin Trough 28.3 H Mycoplasma pneumon IgM 03/04/18 06:19 WBC 6.0 RBC 2.30 L Hgb 7.7 L Hct 23.3 L MCV 101.2 H MCH 33.7 H MCHC 33.3 RDW 19.3 H Plt Count 56 L MPV 10.2 Neut % (Auto) 64.7 Lymph % (Auto) 21.6 Tyler % (Auto) 10.5 H Eos % (Auto) 2.3 Baso % (Auto) 0.9 Neut # (Auto) 3.9 Lymph # (Auto) 1.3 Tyler # (Auto) 0.6 Eos # (Auto) 0.1 Baso # (Auto) 0.1 Puncture Site pCO2 pO2 HCO3 ABG pH ABG Total CO2 ABG O2 Saturation ABG Base Excess ABG Hemoglobin ABG Carboxyhemoglobin POC ABG HHb (Measured) ABG Methemoglobin Rei Test A-a O2 Difference Respiratory Index Hgb O2 Saturation Vent Mode Mechanical Rate FiO2 Tidal Volume PEEP Sodium Potassium Chloride Carbon Dioxide Anion Gap BUN Creatinine Est GFR ( Amer) Est GFR (Non-Af Amer) POC Glucose (mg/dL) Random Glucose Serum Osmolality Uric Acid Calcium Phosphorus Magnesium Total Bilirubin AST ALT Alkaline Phosphatase Ammonia Total Protein Albumin Globulin Albumin/Globulin Ratio Urine Osmolality Ur Random Sodium Vancomycin Trough Mycoplasma pneumon IgM Assessment & Plan (1) Respiratory failure Status: Acute (2) Alcoholic cirrhosis Status: Acute (3) Hyponatremia syndrome Status: Acute (4) Subdural hemorrhage Status: Acute (5) Alcohol abuse with intoxication Status: Acute (6) Electrolyte imbalance Status: Acute - Assessment and Plan (Free Text) Assessment: Hyponatremia now corrected with NS fluids Likely related to liver failure, fluid retention. Electrolyte abnormalities related to ETOH, malnutrition- needs monitoring and correction Likely not SIADH due to dx cirrhosis, initial Reba of 5 consistent with cirrhosis effect and perceived intravascular volume depletion. Plan: Agree with IV NS, correction of electrolyte abnormalities as being done Advance GT feeds as tolerated
[2018-03-04] MEDS: Multiple Vitamins Tab PO SCH (09:31)
[2018-03-04] MEDS: Lactobacillus Acidophilus 500 MU Cap PO SCH ×2 (09:32→18:07)
--- NOTE | 2018-03-04 10:44 | RAD ---
Chest x-ray single frontal view HISTORY: Vented. COMPARISON: 02/27/2018 FINDINGS: Low lying endotracheal tube approximately 1.2 centimeters above the sterling. NG tube with distal tip not well visualized. Worsening now moderate to severe airspace opacifications throughout both lungs. Moderate bilateral pleural effusions. Cardiomegaly. Degenerative changes in the spine and shoulders. Biapical pleural thickening with upper lobe granulomatous changes. Degenerative changes in the spine and shoulders. Impression: Low lying endotracheal tube approximately 1.2 centimeters above the sterling. NG tube with distal tip not well visualized. Worsening now moderate to severe airspace opacifications throughout both lungs. Moderate bilateral pleural effusions. Cardiomegaly. Degenerative changes in the spine and shoulders. Biapical pleural thickening with upper lobe granulomatous changes.
--- NOTE | 2018-03-04 15:25 | CP.PCM.PN ---
Subjective - Date & Time of Evaluation Date of Evaluation: 03/04/18 Time of Evaluation: 14:00 - Subjective Subjective: Medical Attending Note: Patient seen and examined. Patient required intubation yesterday by ICU. patient is on precedex but able to follow commands. Patient denies pain. Family not present at bedside. Objective - Vital Signs/Intake and Output Vital Signs (last 24 hours): Temp Pulse Resp BP Pulse Ox 97.3 F L 67 16 103/64 100 03/04/18 08:00 03/04/18 07:00 03/04/18 08:00 03/04/18 13:40 03/04/18 07:00 Intake and Output: 03/04/18 03/04/18 06:59 18:59 Intake Total 1336.8 268.8 Output Total 900 Balance 436.8 268.8 - Medications Medications: Current Medications Albuterol/Ipratropium (Duoneb 3 Mg/0.5 Mg (3 Ml) Ud) 3 ml INH RQ6 [facility] Last Admin: 03/04/18 13:33 Dose: 3 ml Dextrose (Glutose 15) 0 gm PO ONCE PRN; Protocol PRN Reason: Hypoglycemia Protocol Folic Acid (Folic Acid) 1 mg PO DAILY [facility] Last Admin: 03/04/18 09:31 Dose: 1 mg Furosemide (Lasix) 40 mg IVP Q12H [facility] Stop: 03/05/18 22:46 Last Admin: 03/04/18 13:40 Dose: 40 mg Glucagon (Glucagen Diagnostic Kit) 1 mg IM STAT PRN; Protocol PRN Reason: Hypoglycemia Protocol Guaifenesin (Robitussin) 100 mg PO Q4H PRN PRN Reason: Cough Piperacillin Sod/Tazobactam Sod (Zosyn 3.375 Gm Iv Premix) 3.375 gm in 50 mls @ 100 mls/hr IVPB Q6H [facility]; Protocol Last Admin: 03/04/18 09:24 Dose: 100 mls/hr Dexmedetomidine HCl 200 mcg/ (Sodium Chloride) 50 mls @ 3.79 mls/hr IV TITR PRN; Protocol PRN Reason: Agitation Last Titration: 03/03/18 23:53 Dose: 0.1 mcg/kg/hr, 1.9 mls/hr Vancomycin/Sodium Chloride (Vancomycin 1 Gm/Ns 200 Ml) 1 gm in 200 mls @ 133 mls/hr IVPB Q8H [facility]; Protocol Stop: 03/08/18 19:01 Last Admin: 03/04/18 11:35 Dose: Not Given Norepinephrine Bitartrate 8 mg (/ Dextrose) 258 mls @ 7.74 mls/hr IV .Q24H PRN; Protocol PRN Reason: TITRATE PER MD ORDER Lactobacillus Acidophilus (Bacid Acidophilus) 1 cap PO BID [facility] Last Admin: 03/04/18 09:32 Dose: 1 cap Lorazepam (Ativan) 1 mg IVP Q6H PRN PRN Reason: Agitation Last Admin: 03/03/18 01:24 Dose: 1 mg Multivitamins (Hexavitamin) 1 tab PO DAILY [facility] Last Admin: 03/04/18 09:31 Dose: 1 tab Pantoprazole Sodium (Protonix Susp) 40 mg PO 0600 [facility] Thiamine HCl (Vitamin B1 Tab) 100 mg PO BID [facility] Last Admin: 03/04/18 09:31 Dose: 100 mg - Labs Labs: 03/04/18 06:19 03/04/18 06:19 PT 19.9 SECONDS (9.7-12.2) H D 02/28/18 07:14 INR 1.8 D 02/28/18 07:14 APTT 40 SECONDS (21-34) H 02/27/18 12:58 - Constitutional Appears: Non-toxic, No Acute Distress - Head Exam Head Exam: NORMAL INSPECTION Additional comments: intubated - Eye Exam Eye Exam: EOMI - ENT Exam ENT Exam: Mucous Membranes Dry - Respiratory Exam Respiratory Exam: Decreased Breath Sounds, Rales, NORMAL BREATHING PATTERN. absent: Stridor Additional comments: on vent - Cardiovascular Exam Cardiovascular Exam: REGULAR RHYTHM, +S1, +S2 - GI/Abdominal Exam GI & Abdominal Exam: Distended, Soft, Normal Bowel Sounds. absent: Firm, Guarding, Rigid, Tenderness, Rebound - Extremities Exam Extremities Exam: Pedal Edema. absent: Tenderness Additional comments: chronic venous stasis changes, pitting - Neurological Exam Neurological Exam: Alert, Awake - Skin Skin Exam: Dry, Normal Color, Warm Assessment and Plan (1) Subdural hemorrhage Status: Acute (2) Electrolyte imbalance Status: Acute (3) Pneumonia Status: Acute (4) Sepsis Status: Acute (5) Alcohol abuse Status: Acute (6) Chronic venous stasis dermatitis Status: Acute (7) Prophylactic measure Status: Acute Attending/Attestation - Attestation I have personally seen and examined this patient.: Yes I have fully participated in the care of the patient.: Yes I have reviewed all pertinent clinical information, including history, physical exam and plan: Yes Notes (Text): Assessment/Plan 1) Acute Respiratory Failure RLL Infiltrate/Bilateral Pleural Effusions (Large on Right and Moderate on Left) Urinary Tract Infection Assessment/Plan * CT Chest 02/28/18: large right and moderate left pleural effusions and associated consolidations, lingular infiltrate, probable bulla in the right upper lobe however small loculated penumothorax is not excluded, severe diffuse hepatic steatotosis, question hepatic mass versus more focal fatty infiltration involving a large region of the medial upper liver, small perhepatic and persplenic ascites. * CT Chest (03/03/18): stable large bilateral pleural effusions with worsening bilateral infiltrates with areas of consolidations in the upper lung zones as well as compressive atelectasis at the lung bases * s/p intubation 03/03/18 * Vancomycin 1 gm IV Q8H (Start 03/03/18): elevated trough 28.3; hold dose; f/u random vancomycin level * pending sputum culture * Vancomycin trough: 15-20 * may d/c if not MRSA * Zosyn 3.375 gm IV Q6H (02/27/18-present) * Blood Culture 02/27/18: negative to date * Urine Culture 02/27/18: Enterococcus Faecalis sensitive to Vancomycin * Sputum culture 03/03/18: pending * Myocplasma IGM: negative * Legionella: negative * HIV nonreactive 2). Electrolyte imbalances Assessment/Plan * Repleted 3). Hypothermia * Tmax: 97.2 * on admission as low as 84F 4). Subdural Hematoma * Neurology (Dr. Loving) on board * Neurosurgery (Dr. Schmitt) on board * CT Head 02/28/18 x 2: small left sided subdural hematoma which has increased in size slightly, small right sided hygroma, mild mass effect with compression of both cerebral hemispheres, mild chronic periventricular white matter ischemic changes, mild generalized volume loss * CT Head and Neck 02/27/18: tiny calcified plaque left carotid bifurcation, NO evidence of large aneurysm/vascular malformation * Seen by Neurosurgery Dr. Coleman 02/18/18: no surgical intervention warranted and will need repeat CT Head in 1 week * CT head (03/02/18): previously noted small left sided acute subdural hematoma has continues to undergo evoluation and now appeats hyodense small but very slightly larger right sided subudral hygroma or chronic subdural hematoma. Extra axial collections continue to exert nerly symmetic mass effect on both cerebral hemispheres with compressions of overlying sulci and ventricles * CT (03/03/18): b/l subdural hematoma appear slightly heterogenous but mostly hypodense consistent with continued evolution * Patient unable to get MRI; patient is intubated 5). Alcohol Abuse Cirrhosis * Upon exam 02/28/18: evidence of tremors of the upper body, aware of month and year and president * Patient is on Precedex and PRN ativan * d/c ativan taper to prevent oversedation * Abdominal US: nodular hepatic contour consistent with cirrhosis. Echogenic liver may be seen in setting of hepatic parenchymal disease of fatty infiltation, small ascites, gallstones. * Monitor * Ammonia on admission normal * Folic acid 1mg PO daily * Thiamine 100mg PO BID * MVI 1 tab PO daily 6). Anemia Likely Secondary to Hx Alcohol Abuse * Monitor HgB/Hct * Vitamin B12 normal at 856 * Folate normal at 3.3 * Iron Studies: Total Iron at 117, % Saturation 55, Ferritin 689, TIBC low at 212 * Patient is Cirrhotic per Ab US 7). Thrombocytopenia Likely Secondary to Hx Alcohol Abuse * Downtrending * Has not received anticoagulation secondary to subdural hematoma * patient is cirrhotic per US 8). Elevated LFTs Likely Secondary to Hx Alcohol Abuse * Abdominal U/S 02/27/18: nodular hepatic contour consistent with cirrhosis, echogenic liver may be seen in the setting of hepatic parynchymal disease or fatty infiltration, small ascites, gallstones * Hepatitis Panel 02/27/18: negative * HIV 4th Generation 02/27/18: negative 9). Hyponatremia (resolved) * nephrology (Dr. Taylor) on consult-->help appreciated * Agree with IV NS, correction of electrolyte abnormalites * Advanced GT feeds as tolerated 10). Elevated CPK * normal at 133 11). Prophylaxis * NO anticoagulation considering the Subdural Hematoma, Anemia, Thrombocytopenia * SCDS b/l * NO PPI/H2 Antagonists indicated at this time * Venous dopplers negative Disposition: Vent management per ICU; patient was intubated on 03/03 by ICU for worsening breathe. Patient is pending for IR thoracentesis for large pleural effusions. Vancomycin held given elevated trough.
--- NOTE | 2018-03-04 15:39 | CP.CCUPN ---
CCU Subjective - Physician Review Events Since Last Encounter (Free Text): 03/04/18 15:37 sedated on vent, following commands. CCU Objective - Vital Signs / Intake & Output Vital Signs (Last 4 hours): Vital Signs Pulse Resp BP Pulse Ox 03/04/18 15:14 99 H 31 H 150/98 H 96 03/04/18 15:00 82 25 H 100 03/04/18 14:12 79 21 97/52 L 100 03/04/18 14:00 81 18 100 03/04/18 13:40 103/64 03/04/18 13:13 68 13 103/64 100 03/04/18 13:00 67 23 100 03/04/18 12:55 68 12 95/58 L 100 03/04/18 12:21 67 12 100 Intake and Output (Last 8hrs): Intake & Output 03/04/18 03/04/18 03/04/18 06:59 14:59 22:59 Intake Total 1129.6 700.2 71.9 Output Total 900 750 Balance 229.6 -49.8 71.9 Weight 168 lb 13.985 oz Intake: IV 13 Intake, IV Amount 856.6 440.2 51.9 LA MIDLINE 17.1 15.2 1.9 LEFT FA Y 587.5 425 50 Left Forearm 252 Tube Feeding 160 160 20 Other 100 100 Output: Urine 900 750 Condom 900 750 Other: # Bowel Movements 0 - Physical Exam Head: Positive for: Atraumatic, Normocephalic Pupils: Positive for: PERRL Extroacular Muscles: Positive for: EOMI Conjunctiva: Positive for: Normal, Icteric (bilaterally ) Mouth: Positive for: Moist Mucous Membranes Neck: Positive for: Normal Range of Motion Respiratory/Chest: Positive for: Other (intubated ). Negative for: Respiratory Distress, Accessory Muscle Use Cardiovascular: Positive for: Regular Rate and Rhythm, Normal S1, S2. Negative for: Murmurs Abdomen: Positive for: Normal Bowel Sounds. Negative for: Tenderness, Distention Back: Positive for: Normal Inspection Lower Extremity: Positive for: Edema (bilaterally ), Neurovascularly Intact, Capillary Refill < 2 s. Negative for: Tenderness Neurological: Positive for: Other (Patient is sedated and not verbally responsive at this time) Skin: Positive for: Warm, Dry Psychiatric: Positive for: Alert - Medications Active Medications: Active Medications Generic Name Dose Route Start Last Admin Trade Name Freq PRN Reason Stop Dose Admin Albuterol/Ipratropium 3 ml 03/03/18 20:00 03/04/18 13:33 Duoneb 3 Mg/0.5 Mg (3 Ml) Ud INH 3 ml RQ6 ASHLEIGH Administration Dextrose 0 gm 02/28/18 07:44 Glutose 15 PO ONCE PRN Hypoglycemia Protocol Protocol Folic Acid 1 mg 03/03/18 10:00 03/04/18 09:31 Folic Acid PO 1 mg DAILY ASHLEIGH Administration Furosemide 40 mg 03/04/18 10:45 03/04/18 13:40 Lasix IVP 03/05/18 22:46 40 mg Q12H ASHLEIGH Administration Glucagon 1 mg 02/28/18 07:44 Glucagen Diagnostic Kit IM STAT PRN Hypoglycemia Protocol Protocol Guaifenesin 100 mg 03/03/18 18:27 Robitussin PO Q4H PRN Cough Piperacillin Sod/Tazobactam Sod 3.375 gm in 50 mls @ 100 mls/hr 02/27/18 16:00 03/04/18 09:24 Zosyn 3.375 Gm Iv Premix IVPB 100 mls/hr Q6H ASHLEIGH Administration Protocol Dexmedetomidine HCl 200 mcg/ 50 mls @ 3.79 mls/hr 03/01/18 16:36 03/03/18 23:53 Sodium Chloride IV 0.1 mcg/kg/hr TITR PRN 1.9 mls/hr Agitation Titration Protocol 0.2 MCG/KG/HR Vancomycin/Sodium Chloride 1 gm in 200 mls @ 133 mls/hr 03/03/18 19:00 02/16 11/02 11:35 Vancomycin 1 Gm/Ns 200 Ml IVPB 03/08/18 19:01 Not Given Q8H ASHLEIGH Protocol Norepinephrine Bitartrate 8 mg 258 mls @ 7.74 mls/hr 03/04/18 12:59 / Dextrose IV .Q24H PRN TITRATE PER MD ORDER Protocol 4 MCG/MIN Lactobacillus Acidophilus 1 cap 02/28/18 10:00 03/04/18 09:32 Bacid Acidophilus PO 1 cap BID ASHLEIGH Administration Lorazepam 1 mg 02/28/18 17:20 03/03/18 01:24 Ativan IVP 1 mg Q6H PRN Administration Agitation Multivitamins 1 tab 03/03/18 10:00 03/04/18 09:31 Hexavitamin PO 1 tab DAILY ASHLEIGH Administration Pantoprazole Sodium 40 mg 03/05/18 06:00 Protonix Susp PO 0600 ASHLEIGH Thiamine HCl 100 mg 03/03/18 10:00 03/04/18 09:31 Vitamin B1 Tab PO 100 mg BID ASHLEIGH Administration - Patient Studies Lab Studies: Microbiology Studies 02/27/18 13:57 Blood Culture - Final Blood NO GROWTH AFTER 5 DAYS Gram Stain - Final TEST NOT PERFORMED 02/27/18 12:58 Blood Culture - Final Blood NO GROWTH AFTER 5 DAYS Gram Stain - Final TEST NOT PERFORMED 03/03/18 20:44 Gram Stain - Final Sputum Lab Studies 03/04/18 03/04/18 03/04/18 Range/Units 11:36 06:19 06:19 WBC 6.0 (4.8-10.8) K/uL RBC 2.30 L (4.40-5.90) Mil/uL Hgb 7.7 L (12.0-18.0) g/dL Hct 23.3 L (35.0-51.0) % MCV 101.2 H (80.0-94.0) fL MCH 33.7 H (27.0-31.0) pg MCHC 33.3 (33.0-37.0) g/dL RDW 19.3 H (11.5-14.5) % Plt Count 56 L (130-400) K/uL MPV 10.2 (7.2-11.7) fL Neut % (Auto) 64.7 (50.0-75.0) % Lymph % (Auto) 21.6 (20.0-40.0) % [place] % (Auto) 10.5 H (0.0-10.0) % Eos % (Auto) 2.3 (0.0-4.0) % Baso % (Auto) 0.9 (0.0-2.0) % Neut # (Auto) 3.9 (1.8-7.0) K/uL Lymph # (Auto) 1.3 (1.0-4.3) K/uL [place] # (Auto) 0.6 (0.0-0.8) K/uL Eos # (Auto) 0.1 (0.0-0.7) K/uL Baso # (Auto) 0.1 (0.0-0.2) K/uL Puncture Site pCO2 (35-45) mm/Hg pO2 (80-100) mm/Hg HCO3 (21-28) mmol/L ABG pH (7.35-7.45) ABG Total CO2 (22-28) mmol/L ABG O2 Saturation (95-98) % ABG Base Excess (-2.0-3.0) mmol/L ABG Hemoglobin (11.7-17.4) g/dL ABG Carboxyhemoglobin (0.5-1.5) % POC ABG HHb (Measured) (0.0-5.0) % ABG Methemoglobin (0.0-3.0) % Rei Test A-a O2 Difference mm/Hg Respiratory Index Hgb O2 Saturation (95.0-98.0) % Vent Mode Mechanical Rate FiO2 % Tidal Volume PEEP Sodium (132-148) mmol/L Potassium (3.6-5.2) mmol/L Chloride (98-107) mmol/L Carbon Dioxide (22-30) mmol/L Anion Gap (10-20) BUN (9-20) mg/dL Creatinine (0.8-1.5) mg/dL Est GFR ( Amer) Est GFR (Non-Af Amer) POC Glucose (mg/dL) 116 H (65-110) mg/dL Random Glucose (75-110) mg/dL Uric Acid (3.5-8.5) mg/dL Calcium (8.6-10.4) mg/dl Phosphorus (2.5-4.5) mg/dL Magnesium (1.6-2.3) mg/dL Total Bilirubin (0.2-1.3) mg/dL AST (17-59) U/L ALT (21-72) U/L Alkaline Phosphatase (38-126) U/L Total Protein (6.3-8.3) g/dL Albumin (3.5-5.0) g/dL Globulin (2.2-3.9) gm/dL Albumin/Globulin Ratio (1.0-2.1) Vancomycin Trough 28.3 H (5.0-10.0) ug/mL Ur L.pneumophila Ag (NEGATIVE) 03/04/18 03/04/18 03/04/18 Range/Units 06:19 05:40 05:25 WBC (4.8-10.8) K/uL RBC (4.40-5.90) Mil/uL Hgb (12.0-18.0) g/dL Hct (35.0-51.0) % MCV (80.0-94.0) fL MCH (27.0-31.0) pg MCHC (33.0-37.0) g/dL RDW (11.5-14.5) % Plt Count (130-400) K/uL MPV (7.2-11.7) fL Neut % (Auto) (50.0-75.0) % Lymph % (Auto) (20.0-40.0) % [place] % (Auto) (0.0-10.0) % Eos % (Auto) (0.0-4.0) % Baso % (Auto) (0.0-2.0) % Neut # (Auto) (1.8-7.0) K/uL Lymph # (Auto) (1.0-4.3) K/uL [place] # (Auto) (0.0-0.8) K/uL Eos # (Auto) (0.0-0.7) K/uL Baso # (Auto) (0.0-0.2) K/uL Puncture Site R bra pCO2 38 (35-45) mm/Hg pO2 148 H (80-100) mm/Hg HCO3 24.0 (21-28) mmol/L ABG pH 7.40 (7.35-7.45) ABG Total CO2 24.7 (22-28) mmol/L ABG O2 Saturation 100.6 H (95-98) % ABG Base Excess -1.2 (-2.0-3.0) mmol/L ABG Hemoglobin 7.9 L (11.7-17.4) g/dL ABG Carboxyhemoglobin 2.5 H (0.5-1.5) % POC ABG HHb (Measured) -0.6 L (0.0-5.0) % ABG Methemoglobin 1.2 (0.0-3.0) % Rei Test Na A-a O2 Difference 232.0 mm/Hg Respiratory Index 1.6 Hgb O2 Saturation 96.9 (95.0-98.0) % Vent Mode Prvc Mechanical Rate 16 FiO2 60.0 % Tidal Volume 500 PEEP 5 Sodium 137 (132-148) mmol/L Potassium 3.6 (3.6-5.2) mmol/L Chloride 103 (98-107) mmol/L Carbon Dioxide 24 (22-30) mmol/L Anion Gap 14 (10-20) BUN 11 (9-20) mg/dL Creatinine 0.7 L (0.8-1.5) mg/dL Est GFR ( Amer) > 60 Est GFR (Non-Af Amer) > 60 POC Glucose (mg/dL) 130 H (65-110) mg/dL Random Glucose 107 (75-110) mg/dL Uric Acid 2.1 L (3.5-8.5) mg/dL Calcium 6.4 L (8.6-10.4) mg/dl Phosphorus 1.8 L (2.5-4.5) mg/dL Magnesium 2.2 (1.6-2.3) mg/dL Total Bilirubin 7.5 H (0.2-1.3) mg/dL AST 214 H (17-59) U/L ALT 61 (21-72) U/L Alkaline Phosphatase 97 (38-126) U/L Total Protein 5.9 L (6.3-8.3) g/dL Albumin 2.1 L (3.5-5.0) g/dL Globulin 3.8 (2.2-3.9) gm/dL Albumin/Globulin Ratio 0.5 L (1.0-2.1) Vancomycin Trough (5.0-10.0) ug/mL Ur L.pneumophila Ag (NEGATIVE) 03/04/18 03/03/18 03/03/18 Range/Units 01:23 22:37 20:44 WBC (4.8-10.8) K/uL RBC (4.40-5.90) Mil/uL Hgb (12.0-18.0) g/dL Hct (35.0-51.0) % MCV (80.0-94.0) fL MCH (27.0-31.0) pg MCHC (33.0-37.0) g/dL RDW (11.5-14.5) % Plt Count (130-400) K/uL MPV (7.2-11.7) fL Neut % (Auto) (50.0-75.0) % Lymph % (Auto) (20.0-40.0) % [place] % (Auto) (0.0-10.0) % Eos % (Auto) (0.0-4.0) % Baso % (Auto) (0.0-2.0) % Neut # (Auto) (1.8-7.0) K/uL Lymph # (Auto) (1.0-4.3) K/uL [place] # (Auto) (0.0-0.8) K/uL Eos # (Auto) (0.0-0.7) K/uL Baso # (Auto) (0.0-0.2) K/uL Puncture Site pCO2 (35-45) mm/Hg pO2 (80-100) mm/Hg HCO3 (21-28) mmol/L ABG pH (7.35-7.45) ABG Total CO2 (22-28) mmol/L ABG O2 Saturation (95-98) % ABG Base Excess (-2.0-3.0) mmol/L ABG Hemoglobin (11.7-17.4) g/dL ABG Carboxyhemoglobin (0.5-1.5) % POC ABG HHb (Measured) (0.0-5.0) % ABG Methemoglobin (0.0-3.0) % Rei Test A-a O2 Difference mm/Hg Respiratory Index Hgb O2 Saturation (95.0-98.0) % Vent Mode Mechanical Rate FiO2 % Tidal Volume PEEP Sodium 135 (132-148) mmol/L Potassium 3.4 L (3.6-5.2) mmol/L Chloride 101 (98-107) mmol/L Carbon Dioxide 26 (22-30) mmol/L Anion Gap 11 (10-20) BUN 11 (9-20) mg/dL Creatinine 0.7 L (0.8-1.5) mg/dL Est GFR ( Amer) > 60 Est GFR (Non-Af Amer) > 60 POC Glucose (mg/dL) 118 H (65-110) mg/dL Random Glucose 115 H (75-110) mg/dL Uric Acid (3.5-8.5) mg/dL Calcium 6.3 L (8.6-10.4) mg/dl Phosphorus 1.2 L (2.5-4.5) mg/dL Magnesium 2.4 H (1.6-2.3) mg/dL Total Bilirubin 8.2 H (0.2-1.3) mg/dL AST 227 H (17-59) U/L ALT 63 (21-72) U/L Alkaline Phosphatase 99 (38-126) U/L Total Protein 5.9 L (6.3-8.3) g/dL Albumin 2.1 L (3.5-5.0) g/dL Globulin 3.8 (2.2-3.9) gm/dL Albumin/Globulin Ratio 0.5 L (1.0-2.1) Vancomycin Trough (5.0-10.0) ug/mL Ur L.pneumophila Ag Negative (NEGATIVE) 03/03/18 03/03/18 03/03/18 Range/Units 20:44 18:35 17:31 WBC 5.7 (4.8-10.8) K/uL RBC 2.21 L (4.40-5.90) Mil/uL Hgb 7.5 L (12.0-18.0) g/dL Hct 22.1 L (35.0-51.0) % MCV 100.2 H (80.0-94.0) fL MCH 34.0 H (27.0-31.0) pg MCHC 33.9 (33.0-37.0) g/dL RDW 18.8 H (11.5-14.5) % Plt Count 55 L (130-400) K/uL MPV 9.5 (7.2-11.7) fL Neut % (Auto) 72.2 (50.0-75.0) % Lymph % (Auto) 13.4 L (20.0-40.0) % [place] % (Auto) 11.0 H (0.0-10.0) % Eos % (Auto) 2.3 (0.0-4.0) % Baso % (Auto) 1.1 (0.0-2.0) % Neut # (Auto) 4.1 (1.8-7.0) K/uL Lymph # (Auto) 0.8 L (1.0-4.3) K/uL [place] # (Auto) 0.6 (0.0-0.8) K/uL Eos # (Auto) 0.1 (0.0-0.7) K/uL Baso # (Auto) 0.1 (0.0-0.2) K/uL Puncture Site Rba pCO2 37 (35-45) mm/Hg pO2 245 H (80-100) mm/Hg HCO3 29.1 H (21-28) mmol/L ABG pH 7.50 H (7.35-7.45) ABG Total CO2 30.0 H (22-28) mmol/L ABG O2 Saturation 100.6 H (95-98) % ABG Base Excess 5.3 H (-2.0-3.0) mmol/L ABG Hemoglobin 7.6 L (11.7-17.4) g/dL ABG Carboxyhemoglobin 2.4 H (0.5-1.5) % POC ABG HHb (Measured) -0.6 L (0.0-5.0) % ABG Methemoglobin 1.7 (0.0-3.0) % Rei Test Na A-a O2 Difference 422.0 mm/Hg Respiratory Index 1.7 Hgb O2 Saturation 96.5 (95.0-98.0) % Vent Mode Prvc Mechanical Rate 16 FiO2 100.0 % Tidal Volume 500 PEEP 5 Sodium (132-148) mmol/L Potassium (3.6-5.2) mmol/L Chloride (98-107) mmol/L Carbon Dioxide (22-30) mmol/L Anion Gap (10-20) BUN (9-20) mg/dL Creatinine (0.8-1.5) mg/dL Est GFR ( Amer) Est GFR (Non-Af Amer) POC Glucose (mg/dL) 115 H (65-110) mg/dL Random Glucose (75-110) mg/dL Uric Acid (3.5-8.5) mg/dL Calcium (8.6-10.4) mg/dl Phosphorus (2.5-4.5) mg/dL Magnesium (1.6-2.3) mg/dL Total Bilirubin (0.2-1.3) mg/dL AST (17-59) U/L ALT (21-72) U/L Alkaline Phosphatase (38-126) U/L Total Protein (6.3-8.3) g/dL Albumin (3.5-5.0) g/dL Globulin (2.2-3.9) gm/dL Albumin/Globulin Ratio (1.0-2.1) Vancomycin Trough (5.0-10.0) ug/mL Ur L.pneumophila Ag (NEGATIVE) 03/03/18 03/03/18 Range/Units 16:35 15:48 WBC (4.8-10.8) K/uL RBC (4.40-5.90) Mil/uL Hgb (12.0-18.0) g/dL Hct (35.0-51.0) % MCV (80.0-94.0) fL MCH (27.0-31.0) pg MCHC (33.0-37.0) g/dL RDW (11.5-14.5) % Plt Count (130-400) K/uL MPV (7.2-11.7) fL Neut % (Auto) (50.0-75.0) % Lymph % (Auto) (20.0-40.0) % [place] % (Auto) (0.0-10.0) % Eos % (Auto) (0.0-4.0) % Baso % (Auto) (0.0-2.0) % Neut # (Auto) (1.8-7.0) K/uL Lymph # (Auto) (1.0-4.3) K/uL [place] # (Auto) (0.0-0.8) K/uL Eos # (Auto) (0.0-0.7) K/uL Baso # (Auto) (0.0-0.2) K/uL Puncture Site pCO2 (35-45) mm/Hg pO2 (80-100) mm/Hg HCO3 (21-28) mmol/L ABG pH (7.35-7.45) ABG Total CO2 (22-28) mmol/L ABG O2 Saturation (95-98) % ABG Base Excess (-2.0-3.0) mmol/L ABG Hemoglobin (11.7-17.4) g/dL ABG Carboxyhemoglobin (0.5-1.5) % POC ABG HHb (Measured) (0.0-5.0) % ABG Methemoglobin (0.0-3.0) % Rei Test A-a O2 Difference mm/Hg Respiratory Index Hgb O2 Saturation (95.0-98.0) % Vent Mode Mechanical Rate FiO2 % Tidal Volume PEEP Sodium (132-148) mmol/L Potassium (3.6-5.2) mmol/L Chloride (98-107) mmol/L Carbon Dioxide (22-30) mmol/L Anion Gap (10-20) BUN (9-20) mg/dL Creatinine (0.8-1.5) mg/dL Est GFR ( Amer) Est GFR (Non-Af Amer) POC Glucose (mg/dL) 110 (65-110) mg/dL Random Glucose (75-110) mg/dL Uric Acid (3.5-8.5) mg/dL Calcium (8.6-10.4) mg/dl Phosphorus (2.5-4.5) mg/dL Magnesium (1.6-2.3) mg/dL Total Bilirubin (0.2-1.3) mg/dL AST (17-59) U/L ALT (21-72) U/L Alkaline Phosphatase (38-126) U/L Total Protein (6.3-8.3) g/dL Albumin (3.5-5.0) g/dL Globulin (2.2-3.9) gm/dL Albumin/Globulin Ratio (1.0-2.1) Vancomycin Trough 11.5 H (5.0-10.0) ug/mL Ur L.pneumophila Ag (NEGATIVE) Laboratory Results - last 24 hr 03/03/18 03/03/18 03/03/18 15:48 16:35 17:31 WBC RBC Hgb Hct MCV MCH MCHC RDW Plt Count MPV Neut % (Auto) Lymph % (Auto) [place] % (Auto) Eos % (Auto) Baso % (Auto) Neut # (Auto) Lymph # (Auto) [place] # (Auto) Eos # (Auto) Baso # (Auto) Puncture Site Rba pCO2 37 pO2 245 H HCO3 29.1 H ABG pH 7.50 H ABG Total CO2 30.0 H ABG O2 Saturation 100.6 H ABG Base Excess 5.3 H ABG Hemoglobin 7.6 L ABG Carboxyhemoglobin 2.4 H POC ABG HHb (Measured) -0.6 L ABG Methemoglobin 1.7 Rei Test Na A-a O2 Difference 422.0 Respiratory Index 1.7 Hgb O2 Saturation 96.5 Vent Mode Prvc Mechanical Rate 16 FiO2 100.0 Tidal Volume 500 PEEP 5 Sodium Potassium Chloride Carbon Dioxide Anion Gap BUN Creatinine Est GFR ( Amer) Est GFR (Non-Af Amer) POC Glucose (mg/dL) 110 Random Glucose Uric Acid Calcium Phosphorus Magnesium Total Bilirubin AST ALT Alkaline Phosphatase Total Protein Albumin Globulin Albumin/Globulin Ratio Vancomycin Trough 11.5 H Ur L.pneumophila Ag 03/03/18 03/03/18 03/03/18 18:35 20:44 20:44 WBC 5.7 RBC 2.21 L Hgb 7.5 L Hct 22.1 L MCV 100.2 H MCH 34.0 H MCHC 33.9 RDW 18.8 H Plt Count 55 L MPV 9.5 Neut % (Auto) 72.2 Lymph % (Auto) 13.4 L [place] % (Auto) 11.0 H Eos % (Auto) 2.3 Baso % (Auto) 1.1 Neut # (Auto) 4.1 Lymph # (Auto) 0.8 L [place] # (Auto) 0.6 Eos # (Auto) 0.1 Baso # (Auto) 0.1 Puncture Site pCO2 pO2 HCO3 ABG pH ABG Total CO2 ABG O2 Saturation ABG Base Excess ABG Hemoglobin ABG Carboxyhemoglobin POC ABG HHb (Measured) ABG Methemoglobin Rei Test A-a O2 Difference Respiratory Index Hgb O2 Saturation Vent Mode Mechanical Rate FiO2 Tidal Volume PEEP Sodium 135 Potassium 3.4 L Chloride 101 Carbon Dioxide 26 Anion Gap 11 BUN 11 Creatinine 0.7 L Est GFR ( Amer) > 60 Est GFR (Non-Af Amer) > 60 POC Glucose (mg/dL) 115 H Random Glucose 115 H Uric Acid Calcium 6.3 L Phosphorus 1.2 L Magnesium 2.4 H Total Bilirubin 8.2 H AST 227 H ALT 63 Alkaline Phosphatase 99 Total Protein 5.9 L Albumin 2.1 L Globulin 3.8 Albumin/Globulin Ratio 0.5 L Vancomycin Trough Ur L.pneumophila Ag 03/03/18 03/04/18 03/04/18 22:37 01:23 05:25 WBC RBC Hgb Hct MCV MCH MCHC RDW Plt Count MPV Neut % (Auto) Lymph % (Auto) [place] % (Auto) Eos % (Auto) Baso % (Auto) Neut # (Auto) Lymph # (Auto) [place] # (Auto) Eos # (Auto) Baso # (Auto) Puncture Site pCO2 pO2 HCO3 ABG pH ABG Total CO2 ABG O2 Saturation ABG Base Excess ABG Hemoglobin ABG Carboxyhemoglobin POC ABG HHb (Measured) ABG Methemoglobin Rei Test A-a O2 Difference Respiratory Index Hgb O2 Saturation Vent Mode Mechanical Rate FiO2 Tidal Volume PEEP Sodium Potassium Chloride Carbon Dioxide Anion Gap BUN Creatinine Est GFR ( Amer) Est GFR (Non-Af Amer) POC Glucose (mg/dL) 118 H 130 H Random Glucose Uric Acid Calcium Phosphorus Magnesium Total Bilirubin AST ALT Alkaline Phosphatase Total Protein Albumin Globulin Albumin/Globulin Ratio Vancomycin Trough Ur L.pneumophila Ag Negative 03/04/18 03/04/18 03/04/18 05:40 06:19 06:19 WBC RBC Hgb Hct MCV MCH MCHC RDW Plt Count MPV Neut % (Auto) Lymph % (Auto) [place] % (Auto) Eos % (Auto) Baso % (Auto) Neut # (Auto) Lymph # (Auto) [place] # (Auto) Eos # (Auto) Baso # (Auto) Puncture Site R bra pCO2 38 pO2 148 H HCO3 24.0 ABG pH 7.40 ABG Total CO2 24.7 ABG O2 Saturation 100.6 H ABG Base Excess -1.2 ABG Hemoglobin 7.9 L ABG Carboxyhemoglobin 2.5 H POC ABG HHb (Measured) -0.6 L ABG Methemoglobin 1.2 Rei Test Na A-a O2 Difference 232.0 Respiratory Index 1.6 Hgb O2 Saturation 96.9 Vent Mode Prvc Mechanical Rate 16 FiO2 60.0 Tidal Volume 500 PEEP 5 Sodium 137 Potassium 3.6 Chloride 103 Carbon Dioxide 24 Anion Gap 14 BUN 11 Creatinine 0.7 L Est GFR ( Amer) > 60 Est GFR (Non-Af Amer) > 60 POC Glucose (mg/dL) Random Glucose 107 Uric Acid 2.1 L Calcium 6.4 L Phosphorus 1.8 L Magnesium 2.2 Total Bilirubin 7.5 H AST 214 H ALT 61 Alkaline Phosphatase 97 Total Protein 5.9 L Albumin 2.1 L Globulin 3.8 Albumin/Globulin Ratio 0.5 L Vancomycin Trough 28.3 H Ur L.pneumophila Ag 03/04/18 03/04/18 06:19 11:36 WBC 6.0 RBC 2.30 L Hgb 7.7 L Hct 23.3 L MCV 101.2 H MCH 33.7 H MCHC 33.3 RDW 19.3 H Plt Count 56 L MPV 10.2 Neut % (Auto) 64.7 Lymph % (Auto) 21.6 [place] % (Auto) 10.5 H Eos % (Auto) 2.3 Baso % (Auto) 0.9 Neut # (Auto) 3.9 Lymph # (Auto) 1.3 [place] # (Auto) 0.6 Eos # (Auto) 0.1 Baso # (Auto) 0.1 Puncture Site pCO2 pO2 HCO3 ABG pH ABG Total CO2 ABG O2 Saturation ABG Base Excess ABG Hemoglobin ABG Carboxyhemoglobin POC ABG HHb (Measured) ABG Methemoglobin Rei Test A-a O2 Difference Respiratory Index Hgb O2 Saturation Vent Mode Mechanical Rate FiO2 Tidal Volume PEEP Sodium Potassium Chloride Carbon Dioxide Anion Gap BUN Creatinine Est GFR ( Amer) Est GFR (Non-Af Amer) POC Glucose (mg/dL) 116 H Random Glucose Uric Acid Calcium Phosphorus Magnesium Total Bilirubin AST ALT Alkaline Phosphatase Total Protein Albumin Globulin Albumin/Globulin Ratio Vancomycin Trough Ur L.pneumophila Ag Fingerstick Blood Sugar Results: 117 Review of Systems - Review of Systems Systems not reviewed;Unavailable: Intubated Critical Care Progress Note - Ventilator Checklist Head of Bed 30 Degrees: Yes Daily Sedation Vacation: Yes Daily Assessment of Readiness to Wean: Yes Daily Spontaneous Breathing Trial: Yes PUD Prophalyxis: Yes DVT Prophylaxis: Yes Oral Care with Chlorhexidine Gluconate {CHG}: Yes Assessment/Plan (1) Pneumonia Assessment and plan: Patient is a 57-year-old male with a past medical history of multiple visits to the ED for alcohol intoxication who presents to [facility] brought in by ambulance for alcohol intoxication. Of note, the patient is homeless and was found on someone else's property. While in the ED: chest x-ray was obtained and revealed right lower lobe infiltrates. Patient treated empirically CAP. CT head without contrast was obtained 02/27/18 and revealed small subdural hematoma. Pat ient currently arousable but is not oriented. (03/03/18) patient was intubated. On versed. On fentanyl. Non-verbal. Patient continues to be closely monitored in ICU. Neuro: sedated with precedex gtt. Patient has evolving bilateral subdural hematomas. If these subdurals continued to grow may have to consider drainage. Neurosurgery consulted. Pulm: acute respiratory failure on vent, secondary to pneumonia. large right sided pleural effusion, thoracentesis scheduled with IR. duonebs and guaifenesin. CV: hemodyanmically stable. Hem: no acute issues Renal: meatal stenosis, unable to pass coude catheter. Urology consulted. Diuresing with IV Lasix every 12h. Endo: no acute issues GI: NPO, Jevity@ 20 ID: Sepsis secondary to community-acquired pneumonia continue Zosyn and vancomycin. DVT proph - SCDs, anticoagulation held with current subdural hematomas GI proph - Protonix gay for strict I/O's during acute illness Code status - Full code Critical Care Time spent 35 minutes Multi-disciplinary rounds were performed with house staff, nursing, speech therapy, respiratory therapy, pharmacy and nutrition with integrated input from the primary team/attending and other consulting services. The documented time is cumulative and includes review of patient data/exams/labs/chart review and examination of the patient on rounds and throughout the day; time is exclusive of any procedures or teaching time. Current Visit: Yes Status: Acute
[2018-03-04] MEDS: Dexmedetomidine Hydrochloride 200 MCG in Sodium Chloride 0.9% 48 ML IV PRN (18:06)
[2018-03-05] MEDS: Albuterol-Ipratrop 3 mg / 0.5 (3 ml) UD INH SCH ×3 (01:56→14:29)
[2018-03-05 06:00] LABS: BASO % 0.3 % (0.0-2.0); EOS # 0.1 K/uL (0.0-0.7); HEMOGLOBIN 7.9 g/dL (12.0-18.0); LYMPH % 11.7 % (20.0-40.0); MEAN CORPUSCULAR HEMOGLOBIN 33.9 pg (27.0-31.0); MEAN CORPUSCULAR HGB CONC 33.9 g/dL (33.0-37.0); MEAN PLATELET VOLUME 9.9 fL (7.2-11.7); MONO # 0.7 K/uL (0.0-0.8); MONO % 8.2 % (0.0-10.0); NEUT # 6.6 K/uL (1.8-7.0); NEUT % 78.8 % (50.0-75.0); NRBC % 0.1 % (0.0-2.0); RBC 2.34 Mil/uL (4.40-5.90); WHITE BLOOD COUNT 8.4 K/uL (4.8-10.8)
[2018-03-05 06:15] LABS: ABG ALLEN TEST POS; ARTERIAL BLOOD GAS HCO3 24.2 mmol/L (21-28); ARTERIAL BLOOD GAS HEMOGLOBIN 8.2 g/dL (11.7-17.4); ARTERIAL BLOOD GAS O2 SAT 100.4 % (95-98); ARTERIAL BLOOD GAS PCO2 28 mm/Hg (35-45); ARTERIAL BLOOD GAS PO2 117 mm/Hg (80-100); ARTERIAL BLOOD GAS TCO2 22.7 mmol/L (22-28)
[2018-03-05 06:23] LABS: ALB/GLOB RATIO 0.6 (1.0-2.1); ALBUMIN 2.3 g/dL (3.5-5.0); ALT/SGPT 69 U/L (21-72); AST/SGOT 229 U/L (17-59); BLOOD UREA NITROGEN 11 mg/dL (9-20); CALCIUM 7.1 mg/dl (8.6-10.4); GFR NON-AFRICAN AMERICAN > 60
[2018-03-05] MEDS: Pantoprazole 40 mg Susp UD PO SCH (06:29)
--- NOTE | 2018-03-05 07:50 | RAD ---
Chest x-ray single frontal view HISTORY: Endotracheal tube placement. COMPARISON: 03/04/2018 FINDINGS: Endotracheal tube appears low lying extending approximately 6 millimeters above the sterling. Retraction approximately 1.5 centimeters is recommended. NG tube extending into the stomach. Prominent diffuse bilateral airspace consolidative opacities in both lungs. Small to moderate bilateral pleural effusions. Mild cardiomegaly. Impression: Endotracheal tube appears low lying extending approximately 6 millimeters above the sterling. Retraction approximately 1.5 centimeters is recommended. NG tube extending into the stomach. Prominent diffuse bilateral airspace consolidative opacities in both lungs. Small to moderate bilateral pleural effusions. Mild cardiomegaly.
[2018-03-05] MEDS: Potassium Chloride 20 mEq/15 ml LIQ UD PO SCH ×2 (07:56→11:35)
[2018-03-05] MEDS: Multiple Vitamins Tab PO SCH (09:27)
[2018-03-05] MEDS: Lactobacillus Acidophilus 500 MU Cap PO SCH ×2 (10:26→17:28)
--- NOTE | 2018-03-05 12:44 | CP.PCM.PN ---
Subjective - Date & Time of Evaluation Date of Evaluation: 03/05/18 Time of Evaluation: 12:43 - Subjective Subjective: Patient was seen and examined , patient is arousable to verbal stimuli,trying to follow directions,OGT feeding in progress 10ml residual.[place] cath to light jose color urine.on mechanical ventilator Objective - Vital Signs/Intake and Output Vital Signs (last 24 hours): Temp Pulse Resp BP Pulse Ox 98 F 82 16 101/61 100 03/05/18 08:00 03/05/18 11:00 03/05/18 11:00 03/05/18 10:26 03/05/18 11:00 Intake and Output: 03/05/18 03/05/18 06:59 18:59 Intake Total 262.8 206.2 Output Total 2295 1000 Balance -2032.2 -793.8 - Medications Medications: Current Medications Albuterol/Ipratropium (Duoneb 3 Mg/0.5 Mg (3 Ml) Ud) 3 ml INH RQ6 ASHLEIGH Last Admin: 03/05/18 09:30 Dose: 3 ml Dextrose (Glutose 15) 0 gm PO ONCE PRN; Protocol PRN Reason: Hypoglycemia Protocol Folic Acid (Folic Acid) 1 mg PO DAILY ASHLEIGH Last Admin: 03/05/18 09:27 Dose: 1 mg Furosemide (Lasix) 40 mg IVP Q12H ASHLEIGH Stop: 03/05/18 22:46 Last Admin: 03/05/18 10:26 Dose: 40 mg Glucagon (Glucagen Diagnostic Kit) 1 mg IM STAT PRN; Protocol PRN Reason: Hypoglycemia Protocol Guaifenesin (Robitussin) 100 mg PO Q4H PRN PRN Reason: Cough Dexmedetomidine HCl 200 mcg/ (Sodium Chloride) 50 mls @ 3.79 mls/hr IV TITR PRN; Protocol PRN Reason: Agitation Last Titration: 03/05/18 09:32 Dose: 0.2 mcg/kg/hr, 3.79 mls/hr Vancomycin/Sodium Chloride (Vancomycin 1 Gm/Ns 200 Ml) 1 gm in 200 mls @ 133 mls/hr IVPB Q8H ASHLEIGH; Protocol Stop: 03/08/18 19:01 Last Admin: 03/04/18 11:35 Dose: Not Given Piperacillin Sod/Tazobactam Sod (Zosyn 3.375 Gm Iv Premix) 3.375 gm in 50 mls @ 100 mls/hr IVPB Q6H [facility]; Protocol Lactobacillus Acidophilus (Bacid Acidophilus) 1 cap PO BID [facility] Last Admin: 03/05/18 10:26 Dose: 1 cap Lorazepam (Ativan) 1 mg IVP Q6H PRN PRN Reason: Agitation Last Admin: 03/04/18 16:29 Dose: 1 mg Multivitamins (Hexavitamin) 1 tab PO DAILY [facility] Last Admin: 03/05/18 09:27 Dose: 1 tab Pantoprazole Sodium (Protonix Susp) 40 mg PO 0600 [facility] Last Admin: 03/05/18 06:29 Dose: 40 mg Phytonadione (Vitamin K Inj) 10 mg SC ONCE ONE Stop: 03/05/18 12:46 Thiamine HCl (Vitamin B1 Tab) 100 mg PO BID [facility] Last Admin: 03/05/18 09:27 Dose: 100 mg - Labs Labs: 03/05/18 05:51 03/05/18 05:51 PT 22.0 SECONDS (9.7-12.2) H 03/05/18 05:51 INR 2.0 03/05/18 05:51 APTT 37 SECONDS (21-34) H 03/05/18 05:51 - Constitutional Appears: Older Than Stated Age - Head Exam Head Exam: absent: NORMAL INSPECTION (intubated on mv) - Eye Exam Eye Exam: Normal appearance, PERRL Pupil Exam: NORMAL ACCOMODATION - ENT Exam ENT Exam: Mucous Membranes Moist - Neck Exam Neck Exam: absent: Full ROM (intubated ) - Respiratory Exam Respiratory Exam: Clear to Ausculation Bilateral, NORMAL BREATHING PATTERN - Cardiovascular Exam Cardiovascular Exam: REGULAR RHYTHM - GI/Abdominal Exam GI & Abdominal Exam: Soft, Normal Bowel Sounds - Extremities Exam Extremities Exam: absent: Full ROM (limited exam) - Back Exam Back Exam: absent: Full ROM - Neurological Exam Neurological Exam: Awake. absent: Oriented x3 (intubated) - Psychiatric Exam Psychiatric exam: absent: Normal Mood - Skin Skin Exam: Dry Assessment and Plan - Assessment and Plan (Free Text) Plan: 1) Acute Respiratory Failure Patient has pleural effusions,pneumonia and subdural Hematoma 2) RLL Infiltrate/Bilateral Pleural Effusions (Large on Right and Moderate on Left) Patient is responsive and trying to follow directions wean from from ventilator as per Critical care planning for thgoracentesis tomorrow transfuse platelets INR 2. we will give vit K and FFP tonight. repeat INR in the morning * CT Chest 02/28/18: large right and moderate left pleural effusions and associated consolidations, lingular infiltrate, probable bulla in the right upper lobe however small loculated penumothorax is not excluded, severe diffuse hepatic steatotosis, question hepatic mass versus more focal fatty infiltration involving a large region of the medial upper liver, small perhepatic and persplenic ascites. * CT Chest (03/03/18): stable large bilateral pleural effusions with worsening bilateral infiltrates with areas of consolidations in the upper lung zones as well as compressive atelectasis at the lung bases * s/p intubation 03/03/18 * Vancomycin 1 gm IV Q8H (Start 03/03/18): elevated trough 28.3; hold dose.repeat random level in the morning * pending sputum culture * Vancomycin trough: 15-20 * may d/c if not MRSA * Zosyn 3.375 gm IV Q6H (02/27/18-present) * Blood Culture 02/27/18: negative to date * Urine Culture 02/27/18: Enterococcus Faecalis Myocplasma IGM: negative * Legionella: negative * HIV nonreactive 3). Subdural Hematoma * Neurology (Dr. Loving) on board * Neurosurgery (Dr. Schmitt) on board * CT Head 02/28/18 x 2: small left sided subdural hematoma which has increased in size slightly, small right sided hygroma, mild mass effect with compression of both cerebral hemispheres, mild chronic periventricular white matter ischemic changes, mild generalized volume loss * CT Head and Neck 02/27/18: tiny calcified plaque left carotid bifurcation, NO evidence of large aneurysm/vascular malformation * Seen by Neurosurgery Dr. Coleman 02/18/18: no surgical intervention warranted and will need repeat CT Head in 1 week * CT head (03/02/18): previously noted small left sided acute subdural hematoma has continues to undergo evoluation and now appeats hyodense small but very slightly larger right sided subudral hygroma or chronic subdural hematoma. Extra axial collections continue to exert nerly symmetic mass effect on both cerebral hemispheres with compressions of overlying sulci and ventricles * CT (03/03/18): b/l subdural hematoma appear slightly heterogenous but mostly hypodense consistent with continued evolution * Patient unable to get MRI; patient is intubated 4) Hypokalemia follow K after supplements 5). Alcohol Abuse Cirrhosis * Upon exam 02/28/18: evidence of tremors of the upper body, aware of month and year and president * Patient is on Precedex and PRN ativan * d/c ativan taper to prevent oversedation * Abdominal US: nodular hepatic contour consistent with cirrhosis. Echogenic liver may be seen in setting of hepatic parenchymal disease of fatty infiltation, small ascites, gallstones. * Monitor * Ammonia on admission normal * Folic acid 1mg PO daily * Thiamine 100mg PO BID * MVI 1 tab PO daily 6). Anemia Likely Secondary to Hx Alcohol Abuse * Monitor HgB/Hct * Vitamin B12 normal at 856 * Folate normal at 3.3 * Iron Studies: Total Iron at 117, % Saturation 55, Ferritin 689, TIBC low at 212 * Patient is Cirrhotic per Ab US 7). Thrombocytopenia Likely Secondary to Hx Alcohol Abuse * Has not received anticoagulation secondary to subdural hematoma * patient is cirrhotic per US 8). Elevated LFTs Likely Secondary to Hx Alcohol Abuse * Abdominal U/S 02/27/18: nodular hepatic contour consistent with cirrhosis, echogenic liver may be seen in the setting of hepatic parynchymal disease or fatty infiltration, small ascites, gallstones * Hepatitis Panel 02/27/18: negative * HIV 4th Generation 02/27/18: negative 9). Hyponatremia (resolved) * nephrology (Dr. Taylor) on consult-->help appreciated * Agree with IV NS, correction of electrolyte abnormalites * Advanced GT feeds as tolerated 10). Elevated CPK * normal at 133 11). Prophylaxis * NO anticoagulation considering the Subdural Hematoma, Anemia, Thrombocytopenia * SCDS b/l * NO PPI/H2 Antagonists indicated at this time * Venous dopplers negative Disposition: Vent management per critical care physician Patient is pending for IR thoracentesis for large pleural effusions.follow INR and platelets tomorrow Vancomycin held given elevated trough.repeat level in the morning,follow sputum cultures
[2018-03-05] MEDS ORDERED: Phytonadione 10 mg/ml Inj (Adult) SC ONE (12:45)
[2018-03-05] MEDS: Piperacill/Tazo 3.375gm in Dex 3.375 GM/50 ML BAG IVPB SCH ×2 (13:01→17:31)
--- NOTE | 2018-03-05 14:13 | CT ---
Date of service: 03/05/2018 PROCEDURE: CT HEAD WITHOUT CONTRAST. HISTORY: Subdural collections COMPARISON: 03/03/2018 TECHNIQUE: Axial computed tomography images were obtained through the head/brain without intravenous contrast. Radiation dose: Total exam DLP = 1026.29 mGy-cm. This CT exam was performed using one or more of the following dose reduction techniques: Automated exposure control, adjustment of the mA and/or kV according to patient size, and/or use of iterative reconstruction technique. FINDINGS: HEMORRHAGE: Bilateral subdural collection/subdural hematomas measure approximately 11-12 millimeters on the right and 9-10 millimeters on the left; heterogeneous to hypodense in appearance, not significantly changed since the prior study. BRAIN: Generalized atrophy. Scattered focal lucencies in the subcortical and periventricular white matter suggestive for chronic microvascular ischemic change. Small focal hypodensity in the medial right frontal lobe on series 4, image 20 may represent some volume averaging with the adjacent gyrus versus small chronic infarct. Generalized cerebellar and temporal lobe atrophy. VENTRICLES: Unremarkable. No hydrocephalus. CALVARIUM: Unremarkable. PARANASAL SINUSES: Mild mucosal thickening of the bilateral maxillary sinuses. MASTOID AIR CELLS: Unremarkable as visualized. No inflammatory changes. OTHER FINDINGS: Intracranial arterial calcifications. IMPRESSION: No significant interval change in bilateral heterogeneous hypodense subdural extra-axial collection/hematomas. Correlation with MRI may be helpful if indicated.
--- NOTE | 2018-03-05 16:07 | CP.CCUPN ---
CCU Subjective - Physician Review Events Since Last Encounter (Free Text): 03/05/18 15:57 alert and following some commands. CCU Objective - Vital Signs / Intake & Output Vital Signs (Last 4 hours): Vital Signs Temp Pulse Resp BP Pulse Ox 03/05/18 15:00 94 H 28 H 100 03/05/18 14:54 88 24 115/60 100 03/05/18 14:00 97 H 27 H 100 03/05/18 13:54 93 H 25 H 114/78 03/05/18 13:00 90 22 100 03/05/18 12:26 86 17 91/51 L 100 03/05/18 12:00 97.7 F 93 H 14 100 Intake and Output (Last 8hrs): Intake & Output 03/05/18 03/05/18 03/05/18 06:59 14:59 22:59 Intake Total 95.2 303.0 0 Output Total 1345 2300 100 Balance -1249.8 -1997.0 -100 Weight 154 lb Intake: IV 44 0 Intake, IV Amount 15.2 19.0 0 LA MIDLINE 15.2 19.0 0 Tube Feeding 80 240 0 Output: Urine 1345 2300 100 Condom 1345 2300 100 Other: # Bowel Movements 0 0 0 - Physical Exam Head: Positive for: Atraumatic, Normocephalic Pupils: Positive for: PERRL Extroacular Muscles: Positive for: EOMI Conjunctiva: Positive for: Normal, Icteric (bilaterally ) Mouth: Positive for: Moist Mucous Membranes Neck: Positive for: Normal Range of Motion Respiratory/Chest: Positive for: Other (intubated ). Negative for: Respiratory Distress, Accessory Muscle Use Cardiovascular: Positive for: Regular Rate and Rhythm, Normal S1, S2. Negative for: Murmurs Abdomen: Positive for: Normal Bowel Sounds. Negative for: Tenderness, Distention Back: Positive for: Normal Inspection Lower Extremity: Positive for: Edema (bilaterally ), Neurovascularly Intact, Capillary Refill < 2 s. Negative for: Tenderness Neurological: Positive for: Other (Patient is sedated but more alert today.) Skin: Positive for: Warm, Dry Psychiatric: Positive for: Alert - Medications Active Medications: Active Medications Generic Name Dose Route Start Last Admin Trade Name Freq PRN Reason Stop Dose Admin Albuterol/Ipratropium 3 ml 03/03/18 20:00 03/05/18 14:29 Duoneb 3 Mg/0.5 Mg (3 Ml) Ud INH 3 ml RQ6 ASHLEIGH Administration Dextrose 0 gm 02/28/18 07:44 Glutose 15 PO ONCE PRN Hypoglycemia Protocol Protocol Folic Acid 1 mg 03/03/18 10:00 03/05/18 09:27 Folic Acid PO 1 mg DAILY ASHLEIGH Administration Furosemide 40 mg 03/04/18 10:45 03/05/18 10:26 Lasix IVP 03/05/18 22:46 40 mg Q12H ASHLEIGH Administration Glucagon 1 mg 02/28/18 07:44 Glucagen Diagnostic Kit IM STAT PRN Hypoglycemia Protocol Protocol Guaifenesin 100 mg 03/03/18 18:27 Robitussin PO Q4H PRN Cough Dexmedetomidine HCl 200 mcg/ 50 mls @ 3.79 mls/hr 03/01/18 16:36 03/05/18 15:33 Sodium Chloride IV 0.2 mcg/kg/hr TITR PRN 3.79 mls/hr Agitation Titration Protocol 0.2 MCG/KG/HR Vancomycin/Sodium Chloride 1 gm in 200 mls @ 133 mls/hr 03/03/18 19:00 03/04/18 11:35 Vancomycin 1 Gm/Ns 200 Ml IVPB 03/08/18 19:01 Not Given Q8H ASHLEIGH Protocol Piperacillin Sod/Tazobactam Sod 3.375 gm in 50 mls @ 100 mls/hr 03/05/18 12:30 03/05/18 13:01 Zosyn 3.375 Gm Iv Premix IVPB 100 mls/hr Q6H A[facility] Administration Protocol Lactobacillus Acidophilus 1 cap 02/28/18 10:00 03/05/18 10:26 Bacid Acidophilus PO 1 cap BID ASHLEIGH Administration Lorazepam 1 mg 02/28/18 17:20 03/04/18 16:29 Ativan IVP 1 mg Q6H PRN Administration Agitation Multivitamins 1 tab 03/03/18 10:00 03/05/18 09:27 Hexavitamin PO 1 tab DAILY ASHLEIGH Administration Pantoprazole Sodium 40 mg 03/05/18 06:00 03/05/18 06:29 Protonix Susp PO 40 mg 0600 ASHLEIGH Administration Thiamine HCl 100 mg 03/03/18 10:00 03/05/18 09:27 Vitamin B1 Tab PO 100 mg BID ASHLEIGH Administration - Patient Studies Lab Studies: Microbiology Studies 03/03/18 20:44 Gram Stain - Final Sputum Sputum Culture - Final No growth. 03/03/18 22:37 Urine Culture - Final Urine,Clean Catch No Growth (<1,000 CFU/ML) 02/27/18 13:57 Blood Culture - Final Blood NO GROWTH AFTER 5 DAYS Gram Stain - Final TEST NOT PERFORMED 02/27/18 12:58 Blood Culture - Final Blood NO GROWTH AFTER 5 DAYS Gram Stain - Final TEST NOT PERFORMED Lab Studies 03/05/18 03/05/18 03/05/18 Range/Units 11:28 06:00 05:51 WBC (4.8-10.8) K/uL RBC (4.40-5.90) Mil/uL Hgb (12.0-18.0) g/dL Hct (35.0-51.0) % MCV (80.0-94.0) fL MCH (27.0-31.0) pg MCHC (33.0-37.0) g/dL RDW (11.5-14.5) % Plt Count (130-400) K/uL MPV (7.2-11.7) fL Neut % (Auto) (50.0-75.0) % Lymph % (Auto) (20.0-40.0) % Walton % (Auto) (0.0-10.0) % Eos % (Auto) (0.0-4.0) % Baso % (Auto) (0.0-2.0) % Neut # (Auto) (1.8-7.0) K/uL Lymph # (Auto) (1.0-4.3) K/uL Walton # (Auto) (0.0-0.8) K/uL Eos # (Auto) (0.0-0.7) K/uL Baso # (Auto) (0.0-0.2) K/uL PT (9.7-12.2) SECONDS INR APTT (21-34) SECONDS Puncture Site Rradial pCO2 28 L (35-45) mm/Hg pO2 117 H (80-100) mm/Hg HCO3 24.2 (21-28) mmol/L ABG pH 7.50 H (7.35-7.45) ABG Total CO2 22.7 (22-28) mmol/L ABG O2 Saturation 100.4 H (95-98) % ABG Base Excess -0.9 (-2.0-3.0) mmol/L ABG Hemoglobin 8.2 L (11.7-17.4) g/dL ABG Carboxyhemoglobin 2.7 H (0.5-1.5) % POC ABG HHb (Measured) -0.4 L (0.0-5.0) % ABG Methemoglobin 1.1 (0.0-3.0) % Rei Test Pos A-a O2 Difference 133.0 mm/Hg Respiratory Index 1.1 Hgb O2 Saturation 96.7 (95.0-98.0) % Vent Mode Prvc Mechanical Rate 16 FiO2 40.0 % Tidal Volume 500 PEEP 5 Sodium 137 (132-148) mmol/L Potassium 2.5 L* D (3.6-5.2) mmol/L Chloride 106 (98-107) mmol/L Carbon Dioxide 23 (22-30) mmol/L Anion Gap 10 (10-20) BUN 11 (9-20) mg/dL Creatinine 0.7 L (0.8-1.5) mg/dL Est GFR ( Amer) > 60 Est GFR (Non-Af Amer) > 60 POC Glucose (mg/dL) 147 H (65-110) mg/dL Random Glucose 133 H (75-110) mg/dL Calcium 7.1 L (8.6-10.4) mg/dl Phosphorus 1.7 L (2.5-4.5) mg/dL Magnesium 1.8 (1.6-2.3) mg/dL Total Bilirubin 8.1 H (0.2-1.3) mg/dL AST 229 H (17-59) U/L ALT 69 (21-72) U/L Alkaline Phosphatase 164 H D (38-126) U/L Total Protein 6.4 (6.3-8.3) g/dL Albumin 2.3 L (3.5-5.0) g/dL Globulin 4.1 H (2.2-3.9) gm/dL Albumin/Globulin Ratio 0.6 L (1.0-2.1) 03/05/18 03/05/18 03/05/18 Range/Units 05:51 05:51 05:16 WBC 8.4 (4.8-10.8) K/uL RBC 2.34 L (4.40-5.90) Mil/uL Hgb 7.9 L (12.0-18.0) g/dL Hct 23.4 L (35.0-51.0) % MCV 100.0 H (80.0-94.0) fL MCH 33.9 H (27.0-31.0) pg MCHC 33.9 (33.0-37.0) g/dL RDW 20.0 H (11.5-14.5) % Plt Count 57 L (130-400) K/uL MPV 9.9 (7.2-11.7) fL Neut % (Auto) 78.8 H (50.0-75.0) % Lymph % (Auto) 11.7 L (20.0-40.0) % Walton % (Auto) 8.2 (0.0-10.0) % Eos % (Auto) 1.0 (0.0-4.0) % Baso % (Auto) 0.3 (0.0-2.0) % Neut # (Auto) 6.6 (1.8-7.0) K/uL Lymph # (Auto) 1.0 (1.0-4.3) K/uL Walton # (Auto) 0.7 (0.0-0.8) K/uL Eos # (Auto) 0.1 (0.0-0.7) K/uL Baso # (Auto) 0.0 (0.0-0.2) K/uL PT 22.0 H (9.7-12.2) SECONDS INR 2.0 APTT 37 H (21-34) SECONDS Puncture Site pCO2 (35-45) mm/Hg pO2 (80-100) mm/Hg HCO3 (21-28) mmol/L ABG pH (7.35-7.45) ABG Total CO2 (22-28) mmol/L ABG O2 Saturation (95-98) % ABG Base Excess (-2.0-3.0) mmol/L ABG Hemoglobin (11.7-17.4) g/dL ABG Carboxyhemoglobin (0.5-1.5) % POC ABG HHb (Measured) (0.0-5.0) % ABG Methemoglobin (0.0-3.0) % Rei Test A-a O2 Difference mm/Hg Respiratory Index Hgb O2 Saturation (95.0-98.0) % Vent Mode Mechanical Rate FiO2 % Tidal Volume PEEP Sodium (132-148) mmol/L Potassium (3.6-5.2) mmol/L Chloride (98-107) mmol/L Carbon Dioxide (22-30) mmol/L Anion Gap (10-20) BUN (9-20) mg/dL Creatinine (0.8-1.5) mg/dL Est GFR ( Amer) Est GFR (Non-Af Amer) POC Glucose (mg/dL) 143 H (65-110) mg/dL Random Glucose (75-110) mg/dL Calcium (8.6-10.4) mg/dl Phosphorus (2.5-4.5) mg/dL Magnesium (1.6-2.3) mg/dL Total Bilirubin (0.2-1.3) mg/dL AST (17-59) U/L ALT (21-72) U/L Alkaline Phosphatase (38-126) U/L Total Protein (6.3-8.3) g/dL Albumin (3.5-5.0) g/dL Globulin (2.2-3.9) gm/dL Albumin/Globulin Ratio (1.0-2.1) 03/05/18 03/04/18 Range/Units 00:17 17:48 WBC (4.8-10.8) K/uL RBC (4.40-5.90) Mil/uL Hgb (12.0-18.0) g/dL Hct (35.0-51.0) % MCV (80.0-94.0) fL MCH (27.0-31.0) pg MCHC (33.0-37.0) g/dL RDW (11.5-14.5) % Plt Count (130-400) K/uL MPV (7.2-11.7) fL Neut % (Auto) (50.0-75.0) % Lymph % (Auto) (20.0-40.0) % Walton % (Auto) (0.0-10.0) % Eos % (Auto) (0.0-4.0) % Baso % (Auto) (0.0-2.0) % Neut # (Auto) (1.8-7.0) K/uL Lymph # (Auto) (1.0-4.3) K/uL Walton # (Auto) (0.0-0.8) K/uL Eos # (Auto) (0.0-0.7) K/uL Baso # (Auto) (0.0-0.2) K/uL PT (9.7-12.2) SECONDS INR APTT (21-34) SECONDS Puncture Site pCO2 (35-45) mm/Hg pO2 (80-100) mm/Hg HCO3 (21-28) mmol/L ABG pH (7.35-7.45) ABG Total CO2 (22-28) mmol/L ABG O2 Saturation (95-98) % ABG Base Excess (-2.0-3.0) mmol/L ABG Hemoglobin (11.7-17.4) g/dL ABG Carboxyhemoglobin (0.5-1.5) % POC ABG HHb (Measured) (0.0-5.0) % ABG Methemoglobin (0.0-3.0) % Rei Test A-a O2 Difference mm/Hg Respiratory Index Hgb O2 Saturation (95.0-98.0) % Vent Mode Mechanical Rate FiO2 % Tidal Volume PEEP Sodium (132-148) mmol/L Potassium (3.6-5.2) mmol/L Chloride (98-107) mmol/L Carbon Dioxide (22-30) mmol/L Anion Gap (10-20) BUN (9-20) mg/dL Creatinine (0.8-1.5) mg/dL Est GFR ( Amer) Est GFR (Non-Af Amer) POC Glucose (mg/dL) 106 117 H (65-110) mg/dL Random Glucose (75-110) mg/dL Calcium (8.6-10.4) mg/dl Phosphorus (2.5-4.5) mg/dL Magnesium (1.6-2.3) mg/dL Total Bilirubin (0.2-1.3) mg/dL AST (17-59) U/L ALT (21-72) U/L Alkaline Phosphatase (38-126) U/L Total Protein (6.3-8.3) g/dL Albumin (3.5-5.0) g/dL Globulin (2.2-3.9) gm/dL Albumin/Globulin Ratio (1.0-2.1) Laboratory Results - last 24 hr 03/04/18 03/05/18 03/05/18 17:48 00:17 05:16 WBC RBC Hgb Hct MCV MCH MCHC RDW Plt Count MPV Neut % (Auto) Lymph % (Auto) Walton % (Auto) Eos % (Auto) Baso % (Auto) Neut # (Auto) Lymph # (Auto) Walton # (Auto) Eos # (Auto) Baso # (Auto) PT INR APTT Puncture Site pCO2 pO2 HCO3 ABG pH ABG Total CO2 ABG O2 Saturation ABG Base Excess ABG Hemoglobin ABG Carboxyhemoglobin POC ABG HHb (Measured) ABG Methemoglobin Rei Test A-a O2 Difference Respiratory Index Hgb O2 Saturation Vent Mode Mechanical Rate FiO2 Tidal Volume PEEP Sodium Potassium Chloride Carbon Dioxide Anion Gap BUN Creatinine Est GFR ( Amer) Est GFR (Non-Af Amer) POC Glucose (mg/dL) 117 H 106 143 H Random Glucose Calcium Phosphorus Magnesium Total Bilirubin AST ALT Alkaline Phosphatase Total Protein Albumin Globulin Albumin/Globulin Ratio 03/05/18 03/05/18 03/05/18 05:51 05:51 05:51 WBC 8.4 RBC 2.34 L Hgb 7.9 L Hct 23.4 L MCV 100.0 H MCH 33.9 H MCHC 33.9 RDW 20.0 H Plt Count 57 L MPV 9.9 Neut % (Auto) 78.8 H Lymph % (Auto) 11.7 L Walton % (Auto) 8.2 Eos % (Auto) 1.0 Baso % (Auto) 0.3 Neut # (Auto) 6.6 Lymph # (Auto) 1.0 Walton # (Auto) 0.7 Eos # (Auto) 0.1 Baso # (Auto) 0.0 PT 22.0 H INR 2.0 APTT 37 H Puncture Site pCO2 pO2 HCO3 ABG pH ABG Total CO2 ABG O2 Saturation ABG Base Excess ABG Hemoglobin ABG Carboxyhemoglobin POC ABG HHb (Measured) ABG Methemoglobin Rei Test A-a O2 Difference Respiratory Index Hgb O2 Saturation Vent Mode Mechanical Rate FiO2 Tidal Volume PEEP Sodium 137 Potassium 2.5 L* D Chloride 106 Carbon Dioxide 23 Anion Gap 10 BUN 11 Creatinine 0.7 L Est GFR ( Amer) > 60 Est GFR (Non-Af Amer) > 60 POC Glucose (mg/dL) Random Glucose 133 H Calcium 7.1 L Phosphorus 1.7 L Magnesium 1.8 Total Bilirubin 8.1 H AST 229 H ALT 69 Alkaline Phosphatase 164 H D Total Protein 6.4 Albumin 2.3 L Globulin 4.1 H Albumin/Globulin Ratio 0.6 L 03/05/18 03/05/18 06:00 11:28 WBC RBC Hgb Hct MCV MCH MCHC RDW Plt Count MPV Neut % (Auto) Lymph % (Auto) Walton % (Auto) Eos % (Auto) Baso % (Auto) Neut # (Auto) Lymph # (Auto) Walton # (Auto) Eos # (Auto) Baso # (Auto) PT INR APTT Puncture Site Rradial pCO2 28 L pO2 117 H HCO3 24.2 ABG pH 7.50 H ABG Total CO2 22.7 ABG O2 Saturation 100.4 H ABG Base Excess -0.9 ABG Hemoglobin 8.2 L ABG Carboxyhemoglobin 2.7 H POC ABG HHb (Measured) -0.4 L ABG Methemoglobin 1.1 Rei Test Pos A-a O2 Difference 133.0 Respiratory Index 1.1 Hgb O2 Saturation 96.7 Vent Mode Prvc Mechanical Rate 16 FiO2 40.0 Tidal Volume 500 PEEP 5 Sodium Potassium Chloride Carbon Dioxide Anion Gap BUN Creatinine Est GFR ( Amer) Est GFR (Non-Af Amer) POC Glucose (mg/dL) 147 H Random Glucose Calcium Phosphorus Magnesium Total Bilirubin AST ALT Alkaline Phosphatase Total Protein Albumin Globulin Albumin/Globulin Ratio Fingerstick Blood Sugar Results: 147 Review of Systems - Review of Systems Systems not reviewed;Unavailable: Intubated Critical Care Progress Note - Ventilator Checklist Head of Bed 30 Degrees: Yes Daily Sedation Vacation: Yes Daily Assessment of Readiness to Wean: Yes Daily Spontaneous Breathing Trial: Yes PUD Prophalyxis: Yes DVT Prophylaxis: Yes Oral Care with Chlorhexidine Gluconate {CHG}: Yes Assessment/Plan (1) Pneumonia Assessment and plan: Patient is a 57-year-old male with a past medical history of multiple visits to the ED for alcohol intoxication who presents to [facility] brought in by ambulance for alcohol intoxication. Of note, the patient is homeless and was found on someone else's property. While in the ED: chest x-ray was obtained and revealed right lower lobe infiltrates. Patient treated empirically CAP. CT head without contrast was obtained 02/27/18 and revealed small subdural hematoma. Patient currently arousable but is not oriented. (03/03/18) patient was intubated. On versed. On fentanyl. Non-verbal. Patient continues to be closely monitored in ICU. Neuro: sedated with precedex gtt, holding. Patient has evolving bilateral subdural hematomas but now stabilizing. Neurosurgery consulted. Pulm: acute respiratory failure on vent, secondary to pneumonia. Also, possible neurogenic pulmonary edema. large right sided pleural effusion, thoracentesis scheduled with IR for Tuesday. duonebs and guaifenesin. Tolerated PS for 2 hours, but then became tachypneic. CV: hemodyanmically stable. Hem: thrombocytopenia - giving platelets, slightly elevated INR - giving FFP, both for thoracentesis. Patient never mounted leucoytosis, possibly immunosuppressed. Renal: meatal stenosis, unable to pass coude catheter. Urology consulted. Diuresing with IV Lasix every 12h, stopped secondary to induced metabolic alkalosis, giving acetazolamide x 4 doses. Endo: no acute issues GI: NPO, Jevity@ 20 ID: Sepsis secondary to community-acquired pneumonia continue Zosyn and vancomycin. DVT proph - SCDs, anticoagulation held with current subdural hematomas GI proph - Protonix gay for strict I/O's during acute illness Code status - Full code Critical Care Time spent 35 minutes Multi-disciplinary rounds were performed with house staff, nursing, speech therapy, respiratory therapy, pharmacy and nutrition with integrated input from the primary team/attending and other consulting services. The documented time is cumulative and includes review of patient data/exams/labs/chart review and examination of the patient on rounds and throughout the day; time is exclusive of any procedures or teaching time. Current Visit: Yes Status: Acute
--- NOTE | 2018-03-05 16:25 | CP.PCM.PN ---
Subjective - Date & Time of Evaluation Date of Evaluation: 03/05/18 Time of Evaluation: 09:00 - Subjective Subjective: patient is arousable to verbal stimuli,trying to follow directions, Objective - Vital Signs/Intake and Output Vital Signs (last 24 hours): Temp Pulse Resp BP Pulse Ox 97.7 F 97 H 24 126/71 100 03/05/18 12:00 03/05/18 16:00 03/05/18 16:00 03/05/18 15:55 03/05/18 16:00 Intake and Output: 03/05/18 03/05/18 06:59 18:59 Intake Total 262.8 346.8 Output Total 2295 2600 Balance -2032.2 -2253.2 - Medications Medications: Current Medications Acetazolamide (Diamox 500 Mg Inj) 500 mg IV Q12H [facility] Stop: 03/07/18 04:31 Albuterol/Ipratropium (Duoneb 3 Mg/0.5 Mg (3 Ml) Ud) 3 ml INH RQ6 [facility] Last Admin: 03/05/18 14:29 Dose: 3 ml Dextrose (Glutose 15) 0 gm PO ONCE PRN; Protocol PRN Reason: Hypoglycemia Protocol Folic Acid (Folic Acid) 1 mg PO DAILY [facility] Last Admin: 03/05/18 09:27 Dose: 1 mg Glucagon (Glucagen Diagnostic Kit) 1 mg IM STAT PRN; Protocol PRN Reason: Hypoglycemia Protocol Guaifenesin (Robitussin) 100 mg PO Q4H PRN PRN Reason: Cough Dexmedetomidine HCl 200 mcg/ (Sodium Chloride) 50 mls @ 3.79 mls/hr IV TITR PRN; Protocol PRN Reason: Agitation Last Titration: 03/05/18 15:33 Dose: 0.2 mcg/kg/hr, 3.79 mls/hr Vancomycin/Sodium Chloride (Vancomycin 1 Gm/Ns 200 Ml) 1 gm in 200 mls @ 133 mls/hr IVPB Q8H [facility]; Protocol Stop: 03/08/18 19:01 Last Admin: 03/04/18 11:35 Dose: Not Given Piperacillin Sod/Tazobactam Sod (Zosyn 3.375 Gm Iv Premix) 3.375 gm in 50 mls @ 100 mls/hr IVPB Q6H [facility]; Protocol Last Admin: 03/05/18 13:01 Dose: 100 mls/hr Lactobacillus Acidophilus (Bacid Acidophilus) 1 cap PO BID [facility] Last Admin: 03/05/18 10:26 Dose: 1 cap Lorazepam (Ativan) 1 mg IVP Q6H PRN PRN Reason: Agitation Last Admin: 03/04/18 16:29 Dose: 1 mg Multivitamins (Hexavitamin) 1 tab PO DAILY [facility] Last Admin: 03/05/18 09:27 Dose: 1 tab Pantoprazole Sodium (Protonix Susp) 40 mg PO 0600 [facility] Last Admin: 03/05/18 06:29 Dose: 40 mg Thiamine HCl (Vitamin B1 Tab) 100 mg PO BID [facility] Last Admin: 03/05/18 09:27 Dose: 100 mg - Labs Labs: 03/05/18 05:51 03/05/18 16:02 PT 22.0 SECONDS (9.7-12.2) H 03/05/18 05:51 INR 2.0 03/05/18 05:51 APTT 37 SECONDS (21-34) H 03/05/18 05:51 - Constitutional Appears: Confused, Cachectic, Chronically Ill - Head Exam Head Exam: NORMOCEPHALIC - Eye Exam Eye Exam: absent: Scleral icterus - ENT Exam ENT Exam: Mucous Membranes Dry - Neck Exam Neck Exam: absent: Lymphadenopathy - Respiratory Exam Respiratory Exam: Decreased Breath Sounds - Cardiovascular Exam Cardiovascular Exam: REGULAR RHYTHM - GI/Abdominal Exam GI & Abdominal Exam: Distended, Soft - Rectal Exam Rectal Exam: Deferred - Exam Exam: NORMAL INSPECTION - Extremities Exam Extremities Exam: Pedal Edema - Back Exam Back Exam: absent: CVA tenderness (L), CVA tenderness (R) - Neurological Exam Neurological Exam: Altered - Psychiatric Exam Psychiatric exam: Depressed Assessment and Plan (1) Pneumonia Status: Acute (2) Sepsis Status: Acute (3) Subdural hemorrhage Status: Acute (4) Alcohol abuse with intoxication Status: Acute (5) Chronic venous stasis dermatitis Status: Acute - Assessment and Plan (Free Text) Assessment: cont IV rx as per cultures Plan: vanco on hold for now
[2018-03-05] MEDS: Dexmedetomidine Hydrochloride 200 MCG in Sodium Chloride 0.9% 48 ML IV PRN (17:30)
[2018-03-06] MEDS: Piperacill/Tazo 3.375gm in Dex 3.375 GM/50 ML BAG IVPB SCH ×4 (00:13→17:59)
[2018-03-06] MEDS: Albuterol-Ipratrop 3 mg / 0.5 (3 ml) UD INH SCH ×3 (01:13→13:38)
[2018-03-06 04:51] LABS: ARTERIAL BLOOD GAS HCO3 20.9 mmol/L (21-28); ARTERIAL BLOOD GAS HEMOGLOBIN 15.6 g/dL (11.7-17.4); ARTERIAL BLOOD GAS O2 SAT 100.1 % (95-98); ARTERIAL BLOOD GAS PCO2 32 mm/Hg (35-45); ARTERIAL BLOOD GAS PH 7.38 (7.35-7.45); ARTERIAL BLOOD GAS PO2 162 mm/Hg (80-100); ARTERIAL BLOOD GAS TCO2 19.9 mmol/L (22-28)
[2018-03-06] MEDS: Pantoprazole 40 mg Susp UD PO SCH (06:56)
[2018-03-06] MEDS: Multiple Vitamins Tab PO SCH (09:08)
[2018-03-06] MEDS: Lactobacillus Acidophilus 500 MU Cap PO SCH ×2 (09:08→17:59)
[2018-03-06] MEDS: Dexmedetomidine Hydrochloride 200 MCG in Sodium Chloride 0.9% 48 ML IV PRN (09:09)
--- NOTE | 2018-03-06 09:33 | CP.PCM.PN ---
Subjective - Date & Time of Evaluation Date of Evaluation: 03/06/18 Time of Evaluation: 09:30 - Subjective Subjective: Medical Attending Note: patient is intubated on precedex following commands, unable ROS secondary to clinical condition. Objective - Vital Signs/Intake and Output Vital Signs (last 24 hours): Temp Pulse Resp BP Pulse Ox 97.6 F 80 25 H 107/65 100 03/06/18 08:00 03/06/18 08:01 03/06/18 08:01 03/06/18 08:01 03/06/18 08:01 Intake and Output: 03/06/18 03/06/18 06:59 18:59 Intake Total 1808.6 212.6 Output Total 675 175 Balance 1133.6 37.6 - Medications Medications: Current Medications Acetazolamide (Diamox 500 Mg Inj) 500 mg IV Q12H [facility] Stop: 03/07/18 04:31 Last Admin: 03/06/18 05:26 Dose: 500 mg Albuterol/Ipratropium (Duoneb 3 Mg/0.5 Mg (3 Ml) Ud) 3 ml INH RQ6 [facility] Last Admin: 03/06/18 08:15 Dose: 3 ml Dextrose (Glutose 15) 0 gm PO ONCE PRN; Protocol PRN Reason: Hypoglycemia Protocol Folic Acid (Folic Acid) 1 mg PO DAILY [facility] Last Admin: 03/06/18 09:08 Dose: 1 mg Glucagon (Glucagen Diagnostic Kit) 1 mg IM STAT PRN; Protocol PRN Reason: Hypoglycemia Protocol Guaifenesin (Robitussin) 100 mg PO Q4H PRN PRN Reason: Cough Dexmedetomidine HCl 200 mcg/ (Sodium Chloride) 50 mls @ 3.79 mls/hr IV TITR PRN; Protocol PRN Reason: Agitation Last Admin: 03/06/18 09:09 Dose: 0.2 mcg/kg/hr, 3.79 mls/hr Vancomycin/Sodium Chloride (Vancomycin 1 Gm/Ns 200 Ml) 1 gm in 200 mls @ 133 mls/hr IVPB Q8H [facility]; Protocol Stop: 03/08/18 19:01 Last Admin: 03/04/18 11:35 Dose: Not Given Piperacillin Sod/Tazobactam Sod (Zosyn 3.375 Gm Iv Premix) 3.375 gm in 50 mls @ 100 mls/hr IVPB Q6H [facility]; Protocol Last Admin: 03/06/18 07:01 Dose: 100 mls/hr Lactobacillus Acidophilus (Bacid Acidophilus) 1 cap PO BID [facility] Last Admin: 03/06/18 09:08 Dose: 1 cap Lorazepam (Ativan) 1 mg IVP Q6H PRN PRN Reason: Agitation Last Admin: 03/04/18 16:29 Dose: 1 mg Multivitamins (Hexavitamin) 1 tab PO DAILY [facility] Last Admin: 03/06/18 09:08 Dose: 1 tab Pantoprazole Sodium (Protonix Susp) 40 mg PO 0600 [facility] Last Admin: 03/06/18 06:56 Dose: 40 mg Thiamine HCl (Vitamin B1 Tab) 100 mg PO BID [facility] Last Admin: 03/06/18 09:08 Dose: 100 mg - Labs Labs: 03/05/18 05:51 03/05/18 16:02 PT 22.0 SECONDS (9.7-12.2) H 03/05/18 05:51 INR 2.0 03/05/18 05:51 APTT 37 SECONDS (21-34) H 03/05/18 05:51 - Constitutional Appears: Chronically Ill - Head Exam Head Exam: NORMAL INSPECTION Additional comments: intubated on vent - Eye Exam Eye Exam: EOMI - ENT Exam ENT Exam: Mucous Membranes Moist - Respiratory Exam Respiratory Exam: Decreased Breath Sounds, Rales, NORMAL BREATHING PATTERN - Cardiovascular Exam Cardiovascular Exam: REGULAR RHYTHM, +S1, +S2 - GI/Abdominal Exam GI & Abdominal Exam: Soft, Normal Bowel Sounds. absent: Distended, Firm, Guarding, Rigid, Tenderness, Rebound - Extremities Exam Extremities Exam: Pedal Edema. absent: Tenderness Additional comments: upper (left) arm swelling: mild PICC line - Neurological Exam Neurological Exam: Awake - Skin Skin Exam: Dry, Normal Color, Warm Additional comments: venous stasis changes b/l legs Assessment and Plan (1) Sepsis Status: Acute (2) Subdural hemorrhage Status: Acute (3) Electrolyte imbalance Status: Acute (4) Pneumonia Status: Acute (5) Alcohol abuse Status: Acute (6) Chronic venous stasis dermatitis Status: Acute (7) Prophylactic measure Status: Acute (8) Urinary tract infection Status: Acute (9) Alcoholic cirrhosis Status: Acute Attending/Attestation - Attestation I have personally seen and examined this patient.: Yes I have fully participated in the care of the patient.: Yes I have reviewed all pertinent clinical information, including history, physical exam and plan: Yes Notes (Text): Assessment/Plan 1) Acute Respiratory Failure RLL Infiltrate/Bilateral Pleural Effusions (Large on Right and Moderate on Left) Urinary Tract Infection Assessment/Plan * CT Chest 02/28/18: large right and moderate left pleural effusions and associated consolidations, lingular infiltrate, probable bulla in the right upper lobe however small loculated penumothorax is not excluded, severe diffuse hepatic steatotosis, question hepatic mass versus more focal fatty infiltration involving a large region of the medial upper liver, small perhepatic and persplenic ascites. * CT Chest (03/03/18): stable large bilateral pleural effusions with worsening bilateral infiltrates with areas of consolidations in the upper lung zones as well as compressive atelectasis at the lung bases * s/p intubation 03/03/18 * Vancomycin 1 gm IV Q8H (Start 03/03/18): elevated trough 28.3; hold dose; f/u random vancomycin level * sputum culture: no growth * Vancomycin trough: 15-20 * may d/c if not MRSA * Zosyn 3.375 gm IV Q6H (02/27/18-present) * Blood Culture 02/27/18: negative to date * Urine Culture 02/27/18: Enterococcus Faecalis sensitive to Vancomycin * Urine culture 03/03/18: no growth * Sputum culture 03/03/18: normal * Myocplasma IGM: negative * Legionella: negative * HIV nonreactive 2). Electrolyte imbalances Assessment/Plan * Repleted 3). Hypothermia * Tmax: 97.2 * on admission as low as 84F 4). Subdural Hematoma * Neurology (Dr. Loving) on board * Neurosurgery (Dr. Schmitt) on board * CT Head 02/28/18 x 2: small left sided subdural hematoma which has increased in size slightly, small right sided hygroma, mild mass effect with compression of both cerebral hemispheres, mild chronic periventricular white matter ischemic changes, mild generalized volume loss * CT Head and Neck 02/27/18: tiny calcified plaque left carotid bifurcation, NO evidence of large aneurysm/vascular malformation * Seen by Neurosurgery Dr. Coleman 02/18/18: no surgical intervention warranted and will need repeat CT Head in 1 week * CT head (03/02/18): previously noted small left sided acute subdural hematoma has continues to undergo evoluation and now appeats hyodense small but very slightly larger right sided subudral hygroma or chronic subdural hematoma. Extra axial collections continue to exert nerly symmetic mass effect on both cerebral hemispheres with compressions of overlying sulci and ventricles * CT (03/03/18): b/l subdural hematoma appear slightly heterogenous but mostly hypodense consistent with continued evolution * Patient unable to get MRI; patient is intubated * Per neurosurgery, not candidate for drainage; repeat CT head in one week 5). Alcohol Abuse Cirrhosis * Upon exam 02/28/18: evidence of tremors of the upper body, aware of month and year and president * Patient is on Precedex and PRN ativan * d/c ativan taper to prevent oversedation * Abdominal US: nodular hepatic contour consistent with cirrhosis. Echogenic liver may be seen in setting of hepatic parenchymal disease of fatty infiltation, small ascites, gallstones. * Monitor * Ammonia on admission normal * Folic acid 1mg PO daily * Thiamine 100mg PO BID * MVI 1 tab PO daily 6). Anemia Likely Secondary to Hx Alcohol Abuse * Monitor HgB/Hct * Vitamin B12 normal at 856 * Folate normal at 3.3 * Iron Studies: Total Iron at 117, % Saturation 55, Ferritin 689, TIBC low at 212 * Patient is Cirrhotic per Ab US 7). Thrombocytopenia Likely Secondary to Hx Alcohol Abuse * Downtrending * Has not received anticoagulation secondary to subdural hematoma * patient is cirrhotic per US 8). Elevated LFTs Likely Secondary to Hx Alcohol Abuse * Abdominal U/S 02/27/18: nodular hepatic contour consistent with cirrhosis, echogenic liver may be seen in the setting of hepatic parynchymal disease or fatty infiltration, small ascites, gallstones * Hepatitis Panel 02/27/18: negative * HIV 4th Generation 02/27/18: negative 9). Hyponatremia (resolved) * nephrology (Dr. Taylor) on consult-->help appreciated * Agree with IV NS, correction of electrolyte abnormalites * Advanced GT feeds as tolerated 10). Elevated CPK * normal at 133 11). Prophylaxis * NO anticoagulation considering the Subdural Hematoma, Anemia, Thrombocytopenia * SCDS b/l * NO PPI/H2 Antagonists indicated at this time * Venous dopplers negative Disposition: Vent management per ICU; patient was intubated on 03/03 by ICU for worsening breathe. Patient is pending for IR thoracentesis for large pleural effusions ICU has obtained consent through daughter, bev.
[2018-03-06 09:40] LABS: BASO # 0.1 K/uL (0.0-0.2); BASO % 0.8 % (0.0-2.0); EOS # 0.1 K/uL (0.0-0.7); HEMOGLOBIN 7.7 g/dL (12.0-18.0); INR 1.9; LYMPH # 1.1 K/uL (1.0-4.3); LYMPH % 15.4 % (20.0-40.0); MEAN CELL VOLUME 102.4 fL (80.0-94.0); MEAN CORPUSCULAR HEMOGLOBIN 33.8 pg (27.0-31.0); MONO # 0.6 K/uL (0.0-0.8); MONO % 8.2 % (0.0-10.0); NEUT # 5.1 K/uL (1.8-7.0); NEUT % 73.6 % (50.0-75.0); PROTHROMBIN TIME 20.8 SECONDS (9.7-12.2); RBC 2.29 Mil/uL (4.40-5.90); RED CELL DISTRIBUTION WIDTH 21.3 % (11.5-14.5); WHITE BLOOD COUNT 6.9 K/uL (4.8-10.8)
--- NOTE | 2018-03-06 09:42 | RAD ---
Chest x-ray single frontal view History: Intubated. Comparison: 03/05/2018 Findings: Lines and tubes in stable position. Prominent diffuse bilateral airspace consolidative opacities throughout both lungs. Small bilateral pleural effusions Cardiomegaly. Mild atherosclerotic calcification noted within the aorta. Degenerative changes in the spine. Impression: Lines and tubes in stable position. Prominent diffuse bilateral airspace consolidative opacities throughout both lungs. Small bilateral pleural effusions Cardiomegaly. Mild atherosclerotic calcification noted within the aorta.
[2018-03-06 09:56] LABS: ALB/GLOB RATIO 0.6 (1.0-2.1); ALBUMIN 2.6 g/dL (3.5-5.0); ALT/SGPT 65 U/L (21-72); AST/SGOT 165 U/L (17-59); BLOOD UREA NITROGEN 10 mg/dL (9-20); CALCIUM 7.8 mg/dl (8.6-10.4); GFR NON-AFRICAN AMERICAN > 60
--- NOTE | 2018-03-06 11:17 | CP.PCM.PN ---
Subjective - Date & Time of Evaluation Date of Evaluation: 03/06/18 Time of Evaluation: 08:00 - Subjective Subjective: intubated confused nad Objective - Vital Signs/Intake and Output Vital Signs (last 24 hours): Temp Pulse Resp BP Pulse Ox 97.6 F 86 30 H 137/80 100 03/06/18 08:00 03/06/18 11:01 03/06/18 11:01 03/06/18 11:01 03/06/18 11:01 Intake and Output: 03/06/18 03/06/18 06:59 18:59 Intake Total 1808.6 341.4 Output Total 675 325 Balance 1133.6 16.4 - Medications Medications: Current Medications Acetazolamide (Diamox 500 Mg Inj) 500 mg IV Q12H [facility] Stop: 03/07/18 04:31 Last Admin: 03/06/18 05:26 Dose: 500 mg Albuterol/Ipratropium (Duoneb 3 Mg/0.5 Mg (3 Ml) Ud) 3 ml INH RQ6 [facility] Last Admin: 03/06/18 08:15 Dose: 3 ml Dextrose (Glutose 15) 0 gm PO ONCE PRN; Protocol PRN Reason: Hypoglycemia Protocol Folic Acid (Folic Acid) 1 mg PO DAILY [facility] Last Admin: 03/06/18 09:08 Dose: 1 mg Furosemide (Lasix) 20 mg PO DAILY [facility] Last Admin: 03/06/18 09:54 Dose: 20 mg Glucagon (Glucagen Diagnostic Kit) 1 mg IM STAT PRN; Protocol PRN Reason: Hypoglycemia Protocol Guaifenesin (Robitussin) 100 mg PO Q4H PRN PRN Reason: Cough Dexmedetomidine HCl 200 mcg/ (Sodium Chloride) 50 mls @ 3.79 mls/hr IV TITR PRN; Protocol PRN Reason: Agitation Last Titration: 03/06/18 10:42 Dose: 0.1 mcg/kg/hr, 1.9 mls/hr Vancomycin/Sodium Chloride (Vancomycin 1 Gm/Ns 200 Ml) 1 gm in 200 mls @ 133 mls/hr IVPB Q8H [facility]; Protocol Stop: 03/08/18 19:01 Last Admin: 03/04/18 11:35 Dose: Not Given Piperacillin Sod/Tazobactam Sod (Zosyn 3.375 Gm Iv Premix) 3.375 gm in 50 mls @ 100 mls/hr IVPB Q6H [facility]; Protocol Last Admin: 03/06/18 07:01 Dose: 100 mls/hr Potassium Phosphate 15 mmole/ (Sodium Chloride) 255 mls @ 42.5 mls/hr IVPB ONCE ONE Stop: 03/06/18 16:43 Lactobacillus Acidophilus (Bacid Acidophilus) 1 cap PO BID [facility] Last Admin: 03/06/18 09:08 Dose: 1 cap Lorazepam (Ativan) 1 mg IVP Q6H PRN PRN Reason: Agitation Last Admin: 03/04/18 16:29 Dose: 1 mg Multivitamins (Hexavitamin) 1 tab PO DAILY [facility] Last Admin: 03/06/18 09:08 Dose: 1 tab Pantoprazole Sodium (Protonix Susp) 40 mg PO 0600 [facility] Last Admin: 03/06/18 06:56 Dose: 40 mg Spironolactone (Aldactone) 25 mg PO DAILY [facility] Last Admin: 03/06/18 09:55 Dose: 25 mg Thiamine HCl (Vitamin B1 Tab) 100 mg PO BID [facility] Last Admin: 03/06/18 09:08 Dose: 100 mg - Labs Labs: 03/06/18 09:31 03/06/18 09:31 PT 20.8 SECONDS (9.7-12.2) H 03/06/18 09:31 INR 1.9 03/06/18 09:31 APTT 37 SECONDS (21-34) H 03/05/18 05:51 - Constitutional Appears: Confused, Chronically Ill - Head Exam Head Exam: NORMOCEPHALIC - Eye Exam Eye Exam: absent: Scleral icterus - ENT Exam ENT Exam: Mucous Membranes Dry - Neck Exam Neck Exam: absent: Lymphadenopathy - Respiratory Exam Respiratory Exam: Decreased Breath Sounds - Cardiovascular Exam Cardiovascular Exam: REGULAR RHYTHM - GI/Abdominal Exam GI & Abdominal Exam: Distended, Soft - Rectal Exam Rectal Exam: Deferred - Exam Exam: NORMAL INSPECTION - Extremities Exam Extremities Exam: Pedal Edema - Back Exam Back Exam: absent: CVA tenderness (L), CVA tenderness (R) - Neurological Exam Neurological Exam: Altered Assessment and Plan (1) Pneumonia Status: Acute (2) Sepsis Status: Acute (3) Subdural hemorrhage Status: Acute (4) Alcohol abuse with intoxication Status: Acute (5) Chronic venous stasis dermatitis Status: Acute - Assessment and Plan (Free Text) Assessment: cont vent support weaning as tolerated
--- NOTE | 2018-03-06 11:41 | CP.CCUPN ---
<Rogers Morrow - Last Filed: 03/06/18 19:08> CCU Subjective - Physician Review Subjective (Free Text): 03/06/18 11:40 PGY-1 Critical Care Progress Note for Dr. James Patient seen and examined at bedside this AM. No acute overnight events reported. Patient more alert today, started on precedex and arousable to verbal/tactile stimuli. 12 pt ROS unattainable due to clinical status. Critical Care Time Spent (in minutes): 35 CCU Objective - Vital Signs / Intake & Output Vital Signs (Last 4 hours): Vital Signs Temp Pulse Resp BP Pulse Ox 03/06/18 11:01 86 30 H 137/80 100 03/06/18 11:00 88 18 100 03/06/18 10:46 82 20 128/76 100 03/06/18 10:45 82 20 100 03/06/18 10:31 85 28 H 127/76 100 03/06/18 10:17 90 15 135/84 100 03/06/18 10:01 79 20 125/75 100 03/06/18 10:00 79 20 100 03/06/18 09:54 109/64 03/06/18 09:46 75 21 109/64 100 03/06/18 09:31 77 20 118/70 100 03/06/18 09:17 81 26 H 110/66 100 03/06/18 09:01 74 16 106/61 100 03/06/18 09:00 73 18 100 03/06/18 08:46 80 21 111/67 100 03/06/18 08:31 75 16 106/64 100 03/06/18 08:16 78 22 112/65 100 03/06/18 08:01 80 25 H 107/65 100 03/06/18 08:00 97.6 F 80 26 H 100 03/06/18 07:47 88 29 H 111/74 100 Intake and Output (Last 8hrs): Intake & Output 03/05/18 03/06/18 03/06/18 22:59 06:59 14:59 Intake Total 462.6 1633.4 341.4 Output Total 650 475 325 Balance -187.4 1158.4 16.4 Weight 168 lb 13.985 oz Intake: IV 6 50 5 Intake, IV Amount 76.6 30.4 11.4 LA MIDLINE 26.6 30.4 11.4 LEFT FA Y 50 Tube Feeding 280 320 200 Blood Product 1233 125 Apheresis Plts Acda Lr 376 Irr Unit [id number] Other 100 Output: Urine 650 475 325 Condom 650 475 325 Other: # Bowel Movements 0 - Physical Exam Head: Positive for: Atraumatic, Normocephalic Pupils: Positive for: PERRL Extroacular Muscles: Positive for: EOMI Conjunctiva: Positive for: Normal, Icteric (bilaterally ) Mouth: Positive for: Moist Mucous Membranes Neck: Positive for: Normal Range of Motion Respiratory/Chest: Positive for: Other (intubated ). Negative for: Respiratory Distress, Accessory Muscle Use Cardiovascular: Positive for: Regular Rate and Rhythm, Normal S1, S2. Negative for: Murmurs Abdomen: Positive for: Normal Bowel Sounds. Negative for: Tenderness, Distention Back: Positive for: Normal Inspection Lower Extremity: Positive for: Edema (bilaterally ), Neurovascularly Intact, Capillary Refill < 2 s. Negative for: Tenderness Neurological: Positive for: Other (more alert today to tactile, verbal stimuli) Skin: Positive for: Warm, Dry Psychiatric: Positive for: Alert - Medications Active Medications: Active Medications Generic Name Dose Route Start Last Admin Trade Name Freq PRN Reason Stop Dose Admin Acetazolamide 500 mg 03/05/18 16:30 03/06/18 05:26 Diamox 500 Mg Inj IV 03/07/18 04:31 500 mg Q12H ASHLEIGH Administration Albuterol/Ipratropium 3 ml 03/03/18 20:00 03/06/18 08:15 Duoneb 3 Mg/0.5 Mg (3 Ml) Ud INH 3 ml RQ6 ASHLEIGH Administration Dextrose 0 gm 02/28/18 07:44 Glutose 15 PO ONCE PRN Hypoglycemia Protocol Protocol Folic Acid 1 mg 03/03/18 10:00 03/06/18 09:08 Folic Acid PO 1 mg DAILY ASHLEIGH Administration Furosemide 20 mg 03/06/18 10:00 03/06/18 09:54 Lasix PO 20 mg DAILY ASHLEIGH Administration Glucagon 1 mg 02/28/18 07:44 Glucagen Diagnostic Kit IM STAT PRN Hypoglycemia Protocol Protocol Guaifenesin 100 mg 03/03/18 18:27 Robitussin PO Q4H PRN Cough Dexmedetomidine HCl 200 mcg/ 50 mls @ 3.79 mls/hr 03/01/18 16:36 03/06/18 10:42 Sodium Chloride IV 0.1 mcg/kg/hr TITR PRN 1.9 mls/hr Agitation Titration Protocol 0.2 MCG/KG/HR Vancomycin/Sodium Chloride 1 gm in 200 mls @ 133 mls/hr 03/03/18 19:00 03/04/18 11:35 Vancomycin 1 Gm/Ns 200 Ml IVPB 03/08/18 19:01 Not Given Q8H ASHLEIGH Protocol Piperacillin Sod/Tazobactam Sod 3.375 gm in 50 mls @ 100 mls/hr 03/05/18 12:30 03/06/18 07:01 Zosyn 3.375 Gm Iv Premix IVPB 100 mls/hr Q6H ASHLEIGH Administration Protocol Potassium Phosphate 15 mmole/ 255 mls @ 42.5 mls/hr 03/06/18 12:00 Sodium Chloride IVPB 03/06/18 17:59 ONCE ONE Lactobacillus Acidophilus 1 cap 02/28/18 10:00 03/06/18 09:08 Bacid Acidophilus PO 1 cap BID ASHLEIGH Administration Lorazepam 1 mg 02/28/18 17:20 03/04/18 16:29 Ativan IVP 1 mg Q6H PRN Administration Agitation Multivitamins 1 tab 03/03/18 10:00 03/06/18 09:08 Hexavitamin PO 1 tab DAILY ASHLEIGH Administration Pantoprazole Sodium 40 mg 03/05/18 06:00 03/06/18 06:56 Protonix Susp PO 40 mg 0600 ASHLEIGH Administration Spironolactone 25 mg 03/06/18 10:00 03/06/18 09:55 Aldactone PO 25 mg DAILY ASHLEIGH Administration Thiamine HCl 100 mg 03/03/18 10:00 03/06/18 09:08 Vitamin B1 Tab PO 100 mg BID ASHLEIGH Administration - Patient Studies Lab Studies: Microbiology Studies 03/03/18 20:44 Gram Stain - Final Sputum Sputum Culture - Final No growth. 03/03/18 22:37 Urine Culture - Final Urine,Clean Catch No Growth (<1,000 CFU/ML) Lab Studies 03/06/18 03/06/18 03/06/18 Range/Units 11:32 09:31 09:31 WBC 6.9 (4.8-10.8) K/uL RBC 2.29 L (4.40-5.90) Mil/uL Hgb 7.7 L (12.0-18.0) g/dL Hct 23.4 L (35.0-51.0) % MCV 102.4 H D (80.0-94.0) fL MCH 33.8 H (27.0-31.0) pg MCHC 33.0 (33.0-37.0) g/dL RDW 21.3 H (11.5-14.5) % Plt Count 107 L D (130-400) K/uL MPV 10.0 (7.2-11.7) fL Neut % (Auto) 73.6 (50.0-75.0) % Lymph % (Auto) 15.4 L (20.0-40.0) % Stevens % (Auto) 8.2 (0.0-10.0) % Eos % (Auto) 2.0 (0.0-4.0) % Baso % (Auto) 0.8 (0.0-2.0) % Neut # (Auto) 5.1 (1.8-7.0) K/uL Lymph # (Auto) 1.1 (1.0-4.3) K/uL Stevens # (Auto) 0.6 (0.0-0.8) K/uL Eos # (Auto) 0.1 (0.0-0.7) K/uL Baso # (Auto) 0.1 (0.0-0.2) K/uL PT (9.7-12.2) SECONDS INR Puncture Site pCO2 (35-45) mm/Hg pO2 (80-100) mm/Hg HCO3 (21-28) mmol/L ABG pH (7.35-7.45) ABG Total CO2 (22-28) mmol/L ABG O2 Saturation (95-98) % ABG Base Excess (-2.0-3.0) mmol/L ABG Hemoglobin (11.7-17.4) g/dL ABG Carboxyhemoglobin (0.5-1.5) % POC ABG HHb (Measured) (0.0-5.0) % ABG Methemoglobin (0.0-3.0) % Rei Test A-a O2 Difference mm/Hg Respiratory Index Hgb O2 Saturation (95.0-98.0) % Vent Mode Mechanical Rate FiO2 % Tidal Volume PEEP Sodium (132-148) mmol/L Potassium (3.6-5.2) mmol/L Chloride (98-107) mmol/L Carbon Dioxide (22-30) mmol/L Anion Gap (10-20) BUN (9-20) mg/dL Creatinine (0.8-1.5) mg/dL Est GFR ( Amer) Est GFR (Non-Af Amer) POC Glucose (mg/dL) 116 H (65-110) mg/dL Random Glucose (75-110) mg/dL Calcium (8.6-10.4) mg/dl Phosphorus (2.5-4.5) mg/dL Magnesium (1.6-2.3) mg/dL Total Bilirubin (0.2-1.3) mg/dL AST (17-59) U/L ALT (21-72) U/L Alkaline Phosphatase (38-126) U/L Total Protein (6.3-8.3) g/dL Albumin (3.5-5.0) g/dL Globulin (2.2-3.9) gm/dL Albumin/Globulin Ratio (1.0-2.1) Random Vancomycin < 5.0 ug/mL 03/06/18 03/06/18 03/06/18 Range/Units 09:31 09:31 04:30 WBC (4.8-10.8) K/uL RBC (4.40-5.90) Mil/uL Hgb (12.0-18.0) g/dL Hct (35.0-51.0) % MCV (80.0-94.0) fL MCH (27.0-31.0) pg MCHC (33.0-37.0) g/dL RDW (11.5-14.5) % Plt Count (130-400) K/uL MPV (7.2-11.7) fL Neut % (Auto) (50.0-75.0) % Lymph % (Auto) (20.0-40.0) % Stevens % (Auto) (0.0-10.0) % Eos % (Auto) (0.0-4.0) % Baso % (Auto) (0.0-2.0) % Neut # (Auto) (1.8-7.0) K/uL Lymph # (Auto) (1.0-4.3) K/uL Stevens # (Auto) (0.0-0.8) K/uL Eos # (Auto) (0.0-0.7) K/uL Baso # (Auto) (0.0-0.2) K/uL PT 20.8 H (9.7-12.2) SECONDS INR 1.9 Puncture Site Rb pCO2 32 L (35-45) mm/Hg pO2 162 H (80-100) mm/Hg HCO3 20.9 L (21-28) mmol/L ABG pH 7.38 (7.35-7.45) ABG Total CO2 19.9 L (22-28) mmol/L ABG O2 Saturation 100.1 H (95-98) % ABG Base Excess -5.1 L (-2.0-3.0) mmol/L ABG Hemoglobin 15.6 (11.7-17.4) g/dL ABG Carboxyhemoglobin 2.4 H (0.5-1.5) % POC ABG HHb (Measured) -0.1 L (0.0-5.0) % ABG Methemoglobin 1.0 (0.0-3.0) % Rei Test Na A-a O2 Difference 83.0 mm/Hg Respiratory Index 0.5 Hgb O2 Saturation 96.8 (95.0-98.0) % Vent Mode Prvc Mechanical Rate 16 FiO2 40.0 % Tidal Volume 450 PEEP 5 Sodium 137 (132-148) mmol/L Potassium 3.0 L (3.6-5.2) mmol/L Chloride 110 H (98-107) mmol/L Carbon Dioxide 20 L (22-30) mmol/L Anion Gap 10 (10-20) BUN 10 (9-20) mg/dL Creatinine 0.7 L (0.8-1.5) mg/dL Est GFR ( Amer) > 60 Est GFR (Non-Af Amer) > 60 POC Glucose (mg/dL) (65-110) mg/dL Random Glucose 101 (75-110) mg/dL Calcium 7.8 L (8.6-10.4) mg/dl Phosphorus 2.1 L (2.5-4.5) mg/dL Magnesium 1.8 (1.6-2.3) mg/dL Total Bilirubin 7.3 H (0.2-1.3) mg/dL AST 165 H D (17-59) U/L ALT 65 (21-72) U/L Alkaline Phosphatase 190 H (38-126) U/L Total Protein 6.8 (6.3-8.3) g/dL Albumin 2.6 L (3.5-5.0) g/dL Globulin 4.2 H (2.2-3.9) gm/dL Albumin/Globulin Ratio 0.6 L (1.0-2.1) Random Vancomycin ug/mL 03/06/18 03/05/18 03/05/18 Range/Units 00:13 18:23 16:02 WBC (4.8-10.8) K/uL RBC (4.40-5.90) Mil/uL Hgb (12.0-18.0) g/dL Hct (35.0-51.0) % MCV (80.0-94.0) fL MCH (27.0-31.0) pg MCHC (33.0-37.0) g/dL RDW (11.5-14.5) % Plt Count (130-400) K/uL MPV (7.2-11.7) fL Neut % (Auto) (50.0-75.0) % Lymph % (Auto) (20.0-40.0) % Stevens % (Auto) (0.0-10.0) % Eos % (Auto) (0.0-4.0) % Baso % (Auto) (0.0-2.0) % Neut # (Auto) (1.8-7.0) K/uL Lymph # (Auto) (1.0-4.3) K/uL Stevens # (Auto) (0.0-0.8) K/uL Eos # (Auto) (0.0-0.7) K/uL Baso # (Auto) (0.0-0.2) K/uL PT (9.7-12.2) SECONDS INR Puncture Site pCO2 (35-45) mm/Hg pO2 (80-100) mm/Hg HCO3 (21-28) mmol/L ABG pH (7.35-7.45) ABG Total CO2 (22-28) mmol/L ABG O2 Saturation (95-98) % ABG Base Excess (-2.0-3.0) mmol/L ABG Hemoglobin (11.7-17.4) g/dL ABG Carboxyhemoglobin (0.5-1.5) % POC ABG HHb (Measured) (0.0-5.0) % ABG Methemoglobin (0.0-3.0) % Rei Test A-a O2 Difference mm/Hg Respiratory Index Hgb O2 Saturation (95.0-98.0) % Vent Mode Mechanical Rate FiO2 % Tidal Volume PEEP Sodium (132-148) mmol/L Potassium 3.5 L (3.6-5.2) mmol/L Chloride (98-107) mmol/L Carbon Dioxide (22-30) mmol/L Anion Gap (10-20) BUN (9-20) mg/dL Creatinine (0.8-1.5) mg/dL Est GFR ( Amer) Est GFR (Non-Af Amer) POC Glucose (mg/dL) 131 H 138 H (65-110) mg/dL Random Glucose (75-110) mg/dL Calcium (8.6-10.4) mg/dl Phosphorus (2.5-4.5) mg/dL Magnesium (1.6-2.3) mg/dL Total Bilirubin (0.2-1.3) mg/dL AST (17-59) U/L ALT (21-72) U/L Alkaline Phosphatase (38-126) U/L Total Protein (6.3-8.3) g/dL Albumin (3.5-5.0) g/dL Globulin (2.2-3.9) gm/dL Albumin/Globulin Ratio (1.0-2.1) Random Vancomycin ug/mL 18 Range/Units 11:28 WBC (4.8-10.8) K/uL RBC (4.40-5.90) Mil/uL Hgb (12.0-18.0) g/dL Hct (35.0-51.0) % MCV (80.0-94.0) fL MCH (27.0-31.0) pg MCHC (33.0-37.0) g/dL RDW (11.5-14.5) % Plt Count (130-400) K/uL MPV (7.2-11.7) fL Neut % (Auto) (50.0-75.0) % Lymph % (Auto) (20.0-40.0) % Stevens % (Auto) (0.0-10.0) % Eos % (Auto) (0.0-4.0) % Baso % (Auto) (0.0-2.0) % Neut # (Auto) (1.8-7.0) K/uL Lymph # (Auto) (1.0-4.3) K/uL Stevens # (Auto) (0.0-0.8) K/uL Eos # (Auto) (0.0-0.7) K/uL Baso # (Auto) (0.0-0.2) K/uL PT (9.7-12.2) SECONDS INR Puncture Site pCO2 (35-45) mm/Hg pO2 (80-100) mm/Hg HCO3 (21-28) mmol/L ABG pH (7.35-7.45) ABG Total CO2 (22-28) mmol/L ABG O2 Saturation (95-98) % ABG Base Excess (-2.0-3.0) mmol/L ABG Hemoglobin (11.7-17.4) g/dL ABG Carboxyhemoglobin (0.5-1.5) % POC ABG HHb (Measured) (0.0-5.0) % ABG Methemoglobin (0.0-3.0) % Rei Test A-a O2 Difference mm/Hg Respiratory Index Hgb O2 Saturation (95.0-98.0) % Vent Mode Mechanical Rate FiO2 % Tidal Volume PEEP Sodium (132-148) mmol/L Potassium (3.6-5.2) mmol/L Chloride (98-107) mmol/L Carbon Dioxide (22-30) mmol/L Anion Gap (10-20) BUN (9-20) mg/dL Creatinine (0.8-1.5) mg/dL Est GFR ( Amer) Est GFR (Non-Af Amer) POC Glucose (mg/dL) 147 H (65-110) mg/dL Random Glucose (75-110) mg/dL Calcium (8.6-10.4) mg/dl Phosphorus (2.5-4.5) mg/dL Magnesium (1.6-2.3) mg/dL Total Bilirubin (0.2-1.3) mg/dL AST (17-59) U/L ALT (21-72) U/L Alkaline Phosphatase (38-126) U/L Total Protein (6.3-8.3) g/dL Albumin (3.5-5.0) g/dL Globulin (2.2-3.9) gm/dL Albumin/Globulin Ratio (1.0-2.1) Random Vancomycin ug/mL Laboratory Results - last 24 hr 03/05/18 03/05/18 03/05/18 11:28 16:02 18:23 WBC RBC Hgb Hct MCV MCH MCHC RDW Plt Count MPV Neut % (Auto) Lymph % (Auto) Stevens % (Auto) Eos % (Auto) Baso % (Auto) Neut # (Auto) Lymph # (Auto) Stevens # (Auto) Eos # (Auto) Baso # (Auto) PT INR Puncture Site pCO2 pO2 HCO3 ABG pH ABG Total CO2 ABG O2 Saturation ABG Base Excess ABG Hemoglobin ABG Carboxyhemoglobin POC ABG HHb (Measured) ABG Methemoglobin Rei Test A-a O2 Difference Respiratory Index Hgb O2 Saturation Vent Mode Mechanical Rate FiO2 Tidal Volume PEEP Sodium Potassium 3.5 L Chloride Carbon Dioxide Anion Gap BUN Creatinine Est GFR ( Amer) Est GFR (Non-Af Amer) POC Glucose (mg/dL) 147 H 138 H Random Glucose Calcium Phosphorus Magnesium Total Bilirubin AST ALT Alkaline Phosphatase Total Protein Albumin Globulin Albumin/Globulin Ratio Random Vancomycin 03/06/18 03/06/18 03/06/18 00:13 04:30 09:31 WBC RBC Hgb Hct MCV MCH MCHC RDW Plt Count MPV Neut % (Auto) Lymph % (Auto) Stevens % (Auto) Eos % (Auto) Baso % (Auto) Neut # (Auto) Lymph # (Auto) Stevens # (Auto) Eos # (Auto) Baso # (Auto) PT 20.8 H INR 1.9 Puncture Site Rb pCO2 32 L pO2 162 H HCO3 20.9 L ABG pH 7.38 ABG Total CO2 19.9 L ABG O2 Saturation 100.1 H ABG Base Excess -5.1 L ABG Hemoglobin 15.6 ABG Carboxyhemoglobin 2.4 H POC ABG HHb (Measured) -0.1 L ABG Methemoglobin 1.0 Rei Test Na A-a O2 Difference 83.0 Respiratory Index 0.5 Hgb O2 Saturation 96.8 Vent Mode Prvc Mechanical Rate 16 FiO2 40.0 Tidal Volume 450 PEEP 5 Sodium Potassium Chloride Carbon Dioxide Anion Gap BUN Creatinine Est GFR ( Amer) Est GFR (Non-Af Amer) POC Glucose (mg/dL) 131 H Random Glucose Calcium Phosphorus Magnesium Total Bilirubin AST ALT Alkaline Phosphatase Total Protein Albumin Globulin Albumin/Globulin Ratio Random Vancomycin 03/06/18 03/06/18 03/06/18 09:31 09:31 09:31 WBC 6.9 RBC 2.29 L Hgb 7.7 L Hct 23.4 L MCV 102.4 H D MCH 33.8 H MCHC 33.0 RDW 21.3 H Plt Count 107 L D MPV 10.0 Neut % (Auto) 73.6 Lymph % (Auto) 15.4 L Stevens % (Auto) 8.2 Eos % (Auto) 2.0 Baso % (Auto) 0.8 Neut # (Auto) 5.1 Lymph # (Auto) 1.1 Stevens # (Auto) 0.6 Eos # (Auto) 0.1 Baso # (Auto) 0.1 PT INR Puncture Site pCO2 pO2 HCO3 ABG pH ABG Total CO2 ABG O2 Saturation ABG Base Excess ABG Hemoglobin ABG Carboxyhemoglobin POC ABG HHb (Measured) ABG Methemoglobin Rei Test A-a O2 Difference Respiratory Index Hgb O2 Saturation Vent Mode Mechanical Rate FiO2 Tidal Volume PEEP Sodium 137 Potassium 3.0 L Chloride 110 H Carbon Dioxide 20 L Anion Gap 10 BUN 10 Creatinine 0.7 L Est GFR ( Amer) > 60 Est GFR (Non-Af Amer) > 60 POC Glucose (mg/dL) Random Glucose 101 Calcium 7.8 L Phosphorus 2.1 L Magnesium 1.8 Total Bilirubin 7.3 H AST 165 H D ALT 65 Alkaline Phosphatase 190 H Total Protein 6.8 Albumin 2.6 L Globulin 4.2 H Albumin/Globulin Ratio 0.6 L Random Vancomycin < 5.0 03/06/18 11:32 WBC RBC Hgb Hct MCV MCH MCHC RDW Plt Count MPV Neut % (Auto) Lymph % (Auto) Stevens % (Auto) Eos % (Auto) Baso % (Auto) Neut # (Auto) Lymph # (Auto) Stevens # (Auto) Eos # (Auto) Baso # (Auto) PT INR Puncture Site pCO2 pO2 HCO3 ABG pH ABG Total CO2 ABG O2 Saturation ABG Base Excess ABG Hemoglobin ABG Carboxyhemoglobin POC ABG HHb (Measured) ABG Methemoglobin Rei Test A-a O2 Difference Respiratory Index Hgb O2 Saturation Vent Mode Mechanical Rate FiO2 Tidal Volume PEEP Sodium Potassium Chloride Carbon Dioxide Anion Gap BUN Creatinine Est GFR ( Amer) Est GFR (Non-Af Amer) POC Glucose (mg/dL) 116 H Random Glucose Calcium Phosphorus Magnesium Total Bilirubin AST ALT Alkaline Phosphatase Total Protein Albumin Globulin Albumin/Globulin Ratio Random Vancomycin Fingerstick Blood Sugar Results: 131 Review of Systems - Review of Systems Systems not reviewed;Unavailable: Intubated Assessment/Plan - Assessment and Plan (Free Text) Assessment: 57 yo M with PMHx of multiple visits to the ED for alcohol intoxication BIBEMS for alcohol intoxication. Of note, the patient is homeless and was found on someone else's property. While in the ED: CXR was obtained and revealed right lower lobe infiltrates. Patient treated empirically for CAP. CT head without contrast was obtained 02/27/18 and revealed small subdural hematoma. Patient currently arousable but is not oriented. Patient was intubated on 03/03/18. Started on precedex, arousable by verbal and tactile stimuli. Patient continues to be closely monitored in ICU. Patient for possible thoracentesis tomorrow. Plan: Neuro: -sedated on precedex -more alert today, arousable to verbal/tactile stimuli -has evolving subdural hematomas, now stabilizing. Neurosurgery on board. Pulm: -acute respiratory failure on ventilator 2/2 pneumonia -CXR (03/06): Prominent diffuse b/l airspace consolidative opacities throughout lungs. Small b/l pleural effusions, cardiomegaly. Mild atherosclerotic calcification noted within the aorta. -Patient tolerating CPAP well, however still has a large amounts of secretions from ETT. Possible thoracentesis with IR for tomorrow. -chepe krishnamurthysin CV: -hemodynamically stable Heme: -thrombocytopenia, slightly elevated INR: receiving PLT transfusions, giving FFP--both for thoracentesis -no leukocytosis noted Renal: -K, phos repletion given -Nephro recs (Dr. Taylor) appreciated: patient now with metabolic acidosis/resp alkalosis; hypokalemia likely secondary to lasix, diamox; Diamox being held, would change lasix to prn only Endo: -no acute issues GI: -NPO, Jevity @ 20cc/hr ID: -Sepsis secondary to CAP -continue Vanc/Zosyn PPx, Diet, Disposition -DVT ppx: scds, anticoagulation being held d/t current subdural hematomas -GI ppx: protonix -gay for strict I/Os during acute illness -Diet: tube feeding, Jevity @ 20cc/hr -Code status: Full code Case discussed with Dr. Jacob Morrow DO, PGY-1 <Angelique James - Last Filed: 03/07/18 11:35> CCU Objective - Vital Signs / Intake & Output Vital Signs (Last 4 hours): Vital Signs Temp Pulse Resp BP Pulse Ox 03/07/18 11:16 94 H 34 H 140/83 92 L 03/07/18 11:02 100 H 14 140/99 H 03/07/18 11:00 99 H 29 H 98 03/07/18 10:47 94 H 20 141/96 H 03/07/18 10:31 88 16 111/68 84 L 03/07/18 10:16 68 21 104/59 L 96 03/07/18 10:15 104/59 L 03/07/18 10:01 66 14 93/57 L 99 03/07/18 10:00 65 17 95 03/07/18 09:46 67 18 94/56 L 96 03/07/18 09:31 68 14 102/61 98 03/07/18 09:16 74 22 117/64 91 L 03/07/18 09:15 74 20 107/67 96 03/07/18 09:01 67 20 97/59 L 98 03/07/18 09:00 67 20 99 03/07/18 08:46 70 18 113/68 97 03/07/18 08:32 69 16 117/70 98 03/07/18 08:16 69 17 114/70 99 03/07/18 08:01 68 22 110/65 99 03/07/18 08:00 97.7 F 69 19 100 03/07/18 07:46 69 24 119/67 98 Intake and Output (Last 8hrs): Intake & Output 03/06/18 03/07/18 03/07/18 22:59 06:59 14:59 Intake Total 558.7 564.2 721.7 Output Total 500 600 200 Balance 58.7 -35.8 521.7 Weight 148 lb 9.465 oz Intake: IV 32 13 Intake, IV Amount 206.7 131.2 161.7 LA MIDLINE 147.0 31.2 150 LEFT FA Y 50 Left Forearm 9.7 100 11.7 Tube Feeding 320 320 160 Other 100 400 Output: Urine 500 600 200 Condom 500 600 200 Other: # Bowel Movements 0 - Medications Active Medications: Active Medications Generic Name Dose Route Start Last Admin Trade Name Freq PRN Reason Stop Dose Admin Albuterol/Ipratropium 3 ml 03/03/18 20:00 03/07/18 08:29 Duoneb 3 Mg/0.5 Mg (3 Ml) Ud INH 3 ml RQ6 ASHLEIGH Administration Dextrose 0 gm 02/28/18 07:44 Glutose 15 PO ONCE PRN Hypoglycemia Protocol Protocol Folic Acid 1 mg 03/03/18 10:00 03/07/18 10:15 Folic Acid PO 1 mg DAILY ASHLEIGH Administration Furosemide 20 mg 03/06/18 10:00 03/07/18 10:15 Lasix PO 20 mg DAILY ASHLEIGH Administration Glucagon 1 mg 02/28/18 07:44 Glucagen Diagnostic Kit IM STAT PRN Hypoglycemia Protocol Protocol Guaifenesin 100 mg 03/03/18 18:27 Robitussin PO Q4H PRN Cough Dexmedetomidine HCl 200 mcg/ 50 mls @ 3.79 mls/hr 03/01/18 16:36 03/07/18 00:13 Sodium Chloride IV 0.2 mcg/kg/hr TITR PRN 3.8 mls/hr Agitation Administration Protocol 0.2 MCG/KG/HR Vancomycin/Sodium Chloride 1 gm in 200 mls @ 133 mls/hr 03/03/18 19:00 03/04/18 11:35 Vancomycin 1 Gm/Ns 200 Ml IVPB 03/08/18 19:01 Not Given Q8H ASHLEIGH Protocol Piperacillin Sod/Tazobactam Sod 3.375 gm in 50 mls @ 100 mls/hr 03/05/18 12:30 03/07/18 06:01 Zosyn 3.375 Gm Iv Premix IVPB 100 mls/hr Q6H ASHLEIGH Administration Protocol Potassium Chloride 20 meq in 100 mls @ 50 mls/hr 03/07/18 08:30 03/07/18 10:17 Potassium Chloride 20 Meq/100 Ml IVPB 03/07/18 12:29 50 mls/hr Q2H ASHLEIGH Administration Lactobacillus Acidophilus 1 cap 02/28/18 10:00 03/07/18 10:15 Bacid Acidophilus PO 1 cap BID ASHLEIGH Administration Lorazepam 1 mg 02/28/18 17:20 03/04/18 16:29 Ativan IVP 1 mg Q6H PRN Administration Agitation Multivitamins 1 tab 03/03/18 10:00 03/07/18 10:17 Hexavitamin PO 1 tab DAILY ASHLEIGH Administration Pantoprazole Sodium 40 mg 03/05/18 06:00 03/07/18 06:03 Protonix Susp PO 40 mg 0600 ASHLEIGH Administration Potassium Phos/Sodium Phos 1 pkt 03/07/18 10:45 Neutra-Phos PO BID ASHLEIGH Spironolactone 25 mg 03/06/18 10:00 03/07/18 10:15 Aldactone PO 25 mg DAILY ASHLEIGH Administration Thiamine HCl 100 mg 03/03/18 10:00 03/07/18 10:17 Vitamin B1 Tab PO 100 mg BID ASHLEIGH Administration - Patient Studies Lab Studies: Lab Studies 03/07/18 03/07/18 03/07/18 Range/Units 08:13 06:32 06:32 WBC 6.3 (4.8-10.8) K/uL RBC 2.34 L (4.40-5.90) Mil/uL Hgb 8.0 L (12.0-18.0) g/dL Hct 23.8 L (35.0-51.0) % MCV 101.4 H (80.0-94.0) fL MCH 34.2 H (27.0-31.0) pg MCHC 33.8 (33.0-37.0) g/dL RDW 20.6 H (11.5-14.5) % Plt Count 103 L (130-400) K/uL MPV 10.7 (7.2-11.7) fL Neut % (Auto) 63.9 (50.0-75.0) % Lymph % (Auto) 23.8 (20.0-40.0) % Stevens % (Auto) 8.6 (0.0-10.0) % Eos % (Auto) 2.3 (0.0-4.0) % Baso % (Auto) 1.4 (0.0-2.0) % Neut # (Auto) 4.1 (1.8-7.0) K/uL Lymph # (Auto) 1.5 (1.0-4.3) K/uL Stevens # (Auto) 0.5 (0.0-0.8) K/uL Eos # (Auto) 0.1 (0.0-0.7) K/uL Baso # (Auto) 0.1 (0.0-0.2) K/uL PT 20.6 H (9.7-12.2) SECONDS INR 1.9 Puncture Site pCO2 (35-45) mm/Hg pO2 (80-100) mm/Hg HCO3 (21-28) mmol/L ABG pH (7.35-7.45) ABG Total CO2 (22-28) mmol/L ABG O2 Saturation (95-98) % ABG Base Excess (-2.0-3.0) mmol/L ABG Hemoglobin (11.7-17.4) g/dL ABG Carboxyhemoglobin (0.5-1.5) % POC ABG HHb (Measured) (0.0-5.0) % ABG Methemoglobin (0.0-3.0) % Rei Test A-a O2 Difference mm/Hg Respiratory Index Hgb O2 Saturation (95.0-98.0) % Vent Mode Mechanical Rate FiO2 % Tidal Volume PEEP Sodium (132-148) mmol/L Potassium (3.6-5.2) mmol/L Chloride (98-107) mmol/L Carbon Dioxide (22-30) mmol/L Anion Gap (10-20) BUN (9-20) mg/dL Creatinine (0.8-1.5) mg/dL Est GFR ( Amer) Est GFR (Non-Af Amer) POC Glucose (mg/dL) (65-110) mg/dL Random Glucose (75-110) mg/dL Calcium (8.6-10.4) mg/dl Magnesium (1.6-2.3) mg/dL Total Bilirubin (0.2-1.3) mg/dL AST (17-59) U/L ALT (21-72) U/L Alkaline Phosphatase (38-126) U/L Total Protein (6.3-8.3) g/dL Albumin (3.5-5.0) g/dL Globulin (2.2-3.9) gm/dL Albumin/Globulin Ratio (1.0-2.1) Procalcitonin 0.43 (0.19-0.49) NG/ML 03/07/18 03/07/18 03/07/18 Range/Units 06:30 06:27 05:23 WBC (4.8-10.8) K/uL RBC (4.40-5.90) Mil/uL Hgb (12.0-18.0) g/dL Hct (35.0-51.0) % MCV (80.0-94.0) fL MCH (27.0-31.0) pg MCHC (33.0-37.0) g/dL RDW (11.5-14.5) % Plt Count (130-400) K/uL MPV (7.2-11.7) fL Neut % (Auto) (50.0-75.0) % Lymph % (Auto) (20.0-40.0) % Stevens % (Auto) (0.0-10.0) % Eos % (Auto) (0.0-4.0) % Baso % (Auto) (0.0-2.0) % Neut # (Auto) (1.8-7.0) K/uL Lymph # (Auto) (1.0-4.3) K/uL Stevens # (Auto) (0.0-0.8) K/uL Eos # (Auto) (0.0-0.7) K/uL Baso # (Auto) (0.0-0.2) K/uL PT (9.7-12.2) SECONDS INR Puncture Site pCO2 (35-45) mm/Hg pO2 (80-100) mm/Hg HCO3 (21-28) mmol/L ABG pH (7.35-7.45) ABG Total CO2 (22-28) mmol/L ABG O2 Saturation (95-98) % ABG Base Excess (-2.0-3.0) mmol/L ABG Hemoglobin (11.7-17.4) g/dL ABG Carboxyhemoglobin (0.5-1.5) % POC ABG HHb (Measured) (0.0-5.0) % ABG Methemoglobin (0.0-3.0) % Rei Test A-a O2 Difference mm/Hg Respiratory Index Hgb O2 Saturation (95.0-98.0) % Vent Mode Mechanical Rate FiO2 % Tidal Volume PEEP Sodium 136 (132-148) mmol/L Potassium 3.1 L (3.6-5.2) mmol/L Chloride 108 H (98-107) mmol/L Carbon Dioxide 19 L (22-30) mmol/L Anion Gap 12 (10-20) BUN 12 (9-20) mg/dL Creatinine 0.7 L (0.8-1.5) mg/dL Est GFR ( Amer) > 60 Est GFR (Non-Af Amer) > 60 POC Glucose (mg/dL) 133 H 118 H (65-110) mg/dL Random Glucose 108 (75-110) mg/dL Calcium 7.8 L (8.6-10.4) mg/dl Magnesium 1.7 (1.6-2.3) mg/dL Total Bilirubin 7.3 H (0.2-1.3) mg/dL AST 146 H (17-59) U/L ALT 59 (21-72) U/L Alkaline Phosphatase 176 H (38-126) U/L Total Protein 6.9 (6.3-8.3) g/dL Albumin 2.5 L (3.5-5.0) g/dL Globulin 4.4 H (2.2-3.9) gm/dL Albumin/Globulin Ratio 0.6 L (1.0-2.1) Procalcitonin (0.19-0.49) NG/ML 03/07/18 03/07/18 03/06/18 Range/Units 05:17 00:04 17:56 WBC (4.8-10.8) K/uL RBC (4.40-5.90) Mil/uL Hgb (12.0-18.0) g/dL Hct (35.0-51.0) % MCV (80.0-94.0) fL MCH (27.0-31.0) pg MCHC (33.0-37.0) g/dL RDW (11.5-14.5) % Plt Count (130-400) K/uL MPV (7.2-11.7) fL Neut % (Auto) (50.0-75.0) % Lymph % (Auto) (20.0-40.0) % Stevens % (Auto) (0.0-10.0) % Eos % (Auto) (0.0-4.0) % Baso % (Auto) (0.0-2.0) % Neut # (Auto) (1.8-7.0) K/uL Lymph # (Auto) (1.0-4.3) K/uL Stevens # (Auto) (0.0-0.8) K/uL Eos # (Auto) (0.0-0.7) K/uL Baso # (Auto) (0.0-0.2) K/uL PT (9.7-12.2) SECONDS INR Puncture Site Rb pCO2 28 L (35-45) mm/Hg pO2 113 H (80-100) mm/Hg HCO3 20.7 L (21-28) mmol/L ABG pH 7.42 (7.35-7.45) ABG Total CO2 19.1 L (22-28) mmol/L ABG O2 Saturation 100.2 H (95-98) % ABG Base Excess -5.5 L (-2.0-3.0) mmol/L ABG Hemoglobin 8.2 L (11.7-17.4) g/dL ABG Carboxyhemoglobin 2.8 H (0.5-1.5) % POC ABG HHb (Measured) -0.2 L (0.0-5.0) % ABG Methemoglobin 1.0 (0.0-3.0) % Rei Test Na A-a O2 Difference 137.0 mm/Hg Respiratory Index 1.2 Hgb O2 Saturation 96.4 (95.0-98.0) % Vent Mode Prvc Mechanical Rate 16 FiO2 40.0 % Tidal Volume 450 PEEP 5 Sodium (132-148) mmol/L Potassium (3.6-5.2) mmol/L Chloride (98-107) mmol/L Carbon Dioxide (22-30) mmol/L Anion Gap (10-20) BUN (9-20) mg/dL Creatinine (0.8-1.5) mg/dL Est GFR ( Amer) Est GFR (Non-Af Amer) POC Glucose (mg/dL) 109 98 (65-110) mg/dL Random Glucose (75-110) mg/dL Calcium (8.6-10.4) mg/dl Magnesium (1.6-2.3) mg/dL Total Bilirubin (0.2-1.3) mg/dL AST (17-59) U/L ALT (21-72) U/L Alkaline Phosphatase (38-126) U/L Total Protein (6.3-8.3) g/dL Albumin (3.5-5.0) g/dL Globulin (2.2-3.9) gm/dL Albumin/Globulin Ratio (1.0-2.1) Procalcitonin (0.19-0.49) NG/ML 03/06/18 03/06/18 Range/Units 11:32 00:13 WBC (4.8-10.8) K/uL RBC (4.40-5.90) Mil/uL Hgb (12.0-18.0) g/dL Hct (35.0-51.0) % MCV (80.0-94.0) fL MCH (27.0-31.0) pg MCHC (33.0-37.0) g/dL RDW (11.5-14.5) % Plt Count (130-400) K/uL MPV (7.2-11.7) fL Neut % (Auto) (50.0-75.0) % Lymph % (Auto) (20.0-40.0) % Stevens % (Auto) (0.0-10.0) % Eos % (Auto) (0.0-4.0) % Baso % (Auto) (0.0-2.0) % Neut # (Auto) (1.8-7.0) K/uL Lymph # (Auto) (1.0-4.3) K/uL Stevens # (Auto) (0.0-0.8) K/uL Eos # (Auto) (0.0-0.7) K/uL Baso # (Auto) (0.0-0.2) K/uL PT (9.7-12.2) SECONDS INR Puncture Site pCO2 (35-45) mm/Hg pO2 (80-100) mm/Hg HCO3 (21-28) mmol/L ABG pH (7.35-7.45) ABG Total CO2 (22-28) mmol/L ABG O2 Saturation (95-98) % ABG Base Excess (-2.0-3.0) mmol/L ABG Hemoglobin (11.7-17.4) g/dL ABG Carboxyhemoglobin (0.5-1.5) % POC ABG HHb (Measured) (0.0-5.0) % ABG Methemoglobin (0.0-3.0) % Rei Test A-a O2 Difference mm/Hg Respiratory Index Hgb O2 Saturation (95.0-98.0) % Vent Mode Mechanical Rate FiO2 % Tidal Volume PEEP Sodium (132-148) mmol/L Potassium (3.6-5.2) mmol/L Chloride (98-107) mmol/L Carbon Dioxide (22-30) mmol/L Anion Gap (10-20) BUN (9-20) mg/dL Creatinine (0.8-1.5) mg/dL Est GFR ( Amer) Est GFR (Non-Af Amer) POC Glucose (mg/dL) 116 H 131 H (65-110) mg/dL Random Glucose (75-110) mg/dL Calcium (8.6-10.4) mg/dl Magnesium (1.6-2.3) mg/dL Total Bilirubin (0.2-1.3) mg/dL AST (17-59) U/L ALT (21-72) U/L Alkaline Phosphatase (38-126) U/L Total Protein (6.3-8.3) g/dL Albumin (3.5-5.0) g/dL Globulin (2.2-3.9) gm/dL Albumin/Globulin Ratio (1.0-2.1) Procalcitonin (0.19-0.49) NG/ML Laboratory Results - last 24 hr 03/06/18 03/06/18 03/06/18 00:13 11:32 17:56 WBC RBC Hgb Hct MCV MCH MCHC RDW Plt Count MPV Neut % (Auto) Lymph % (Auto) Stevens % (Auto) Eos % (Auto) Baso % (Auto) Neut # (Auto) Lymph # (Auto) Stevens # (Auto) Eos # (Auto) Baso # (Auto) PT INR Puncture Site pCO2 pO2 HCO3 ABG pH ABG Total CO2 ABG O2 Saturation ABG Base Excess ABG Hemoglobin ABG Carboxyhemoglobin POC ABG HHb (Measured) ABG Methemoglobin Rei Test A-a O2 Difference Respiratory Index Hgb O2 Saturation Vent Mode Mechanical Rate FiO2 Tidal Volume PEEP Sodium Potassium Chloride Carbon Dioxide Anion Gap BUN Creatinine Est GFR ( Amer) Est GFR (Non-Af Amer) POC Glucose (mg/dL) 131 H 116 H 98 Random Glucose Calcium Magnesium Total Bilirubin AST ALT Alkaline Phosphatase Total Protein Albumin Globulin Albumin/Globulin Ratio Procalcitonin 03/07/18 03/07/18 03/07/18 00:04 05:17 05:23 WBC RBC Hgb Hct MCV MCH MCHC RDW Plt Count MPV Neut % (Auto) Lymph % (Auto) Stevens % (Auto) Eos % (Auto) Baso % (Auto) Neut # (Auto) Lymph # (Auto) Stevens # (Auto) Eos # (Auto) Baso # (Auto) PT INR Puncture Site Rb pCO2 28 L pO2 113 H HCO3 20.7 L ABG pH 7.42 ABG Total CO2 19.1 L ABG O2 Saturation 100.2 H ABG Base Excess -5.5 L ABG Hemoglobin 8.2 L ABG Carboxyhemoglobin 2.8 H POC ABG HHb (Measured) -0.2 L ABG Methemoglobin 1.0 Rei Test Na A-a O2 Difference 137.0 Respiratory Index 1.2 Hgb O2 Saturation 96.4 Vent Mode Prvc Mechanical Rate 16 FiO2 40.0 Tidal Volume 450 PEEP 5 Sodium Potassium Chloride Carbon Dioxide Anion Gap BUN Creatinine Est GFR ( Amer) Est GFR (Non-Af Amer) POC Glucose (mg/dL) 109 118 H Random Glucose Calcium Magnesium Total Bilirubin AST ALT Alkaline Phosphatase Total Protein Albumin Globulin Albumin/Globulin Ratio Procalcitonin 11/20/18 11/20/18 11/20/18 06:27 06:30 06:32 WBC RBC Hgb Hct MCV MCH MCHC RDW Plt Count MPV Neut % (Auto) Lymph % (Auto) Stevens % (Auto) Eos % (Auto) Baso % (Auto) Neut # (Auto) Lymph # (Auto) Stevens # (Auto) Eos # (Auto) Baso # (Auto) PT 20.6 H INR 1.9 Puncture Site pCO2 pO2 HCO3 ABG pH ABG Total CO2 ABG O2 Saturation ABG Base Excess ABG Hemoglobin ABG Carboxyhemoglobin POC ABG HHb (Measured) ABG Methemoglobin Rei Test A-a O2 Difference Respiratory Index Hgb O2 Saturation Vent Mode Mechanical Rate FiO2 Tidal Volume PEEP Sodium 136 Potassium 3.1 L Chloride 108 H Carbon Dioxide 19 L Anion Gap 12 BUN 12 Creatinine 0.7 L Est GFR ( Amer) > 60 Est GFR (Non-Af Amer) > 60 POC Glucose (mg/dL) 133 H Random Glucose 108 Calcium 7.8 L Magnesium 1.7 Total Bilirubin 7.3 H AST 146 H ALT 59 Alkaline Phosphatase 176 H Total Protein 6.9 Albumin 2.5 L Globulin 4.4 H Albumin/Globulin Ratio 0.6 L Procalcitonin 03/07/18 03/07/18 06:32 08:13 WBC 6.3 RBC 2.34 L Hgb 8.0 L Hct 23.8 L MCV 101.4 H MCH 34.2 H MCHC 33.8 RDW 20.6 H Plt Count 103 L MPV 10.7 Neut % (Auto) 63.9 Lymph % (Auto) 23.8 Stevens % (Auto) 8.6 Eos % (Auto) 2.3 Baso % (Auto) 1.4 Neut # (Auto) 4.1 Lymph # (Auto) 1.5 Stevens # (Auto) 0.5 Eos # (Auto) 0.1 Baso # (Auto) 0.1 PT INR Puncture Site pCO2 pO2 HCO3 ABG pH ABG Total CO2 ABG O2 Saturation ABG Base Excess ABG Hemoglobin ABG Carboxyhemoglobin POC ABG HHb (Measured) ABG Methemoglobin Rei Test A-a O2 Difference Respiratory Index Hgb O2 Saturation Vent Mode Mechanical Rate FiO2 Tidal Volume PEEP Sodium Potassium Chloride Carbon Dioxide Anion Gap BUN Creatinine Est GFR ( Amer) Est GFR (Non-Af Amer) POC Glucose (mg/dL) Random Glucose Calcium Magnesium Total Bilirubin AST ALT Alkaline Phosphatase Total Protein Albumin Globulin Albumin/Globulin Ratio Procalcitonin 0.43 Attending/Attestation - Attestation I have personally seen and examined this patient.: Yes I have fully participated in the care of the patient.: Yes I have reviewed all pertinent clinical information: Yes Notes (Text): 03/07/18 11:34 Patient still having increasing with thick secretions. Awake and responding. Tolerating the CPAP. Possible thoracentesis tomorrow. After that the possible extubation. Will continue the current aggressive treatment for pneumonia.
--- NOTE | 2018-03-06 11:45 | CP.PCM.PN ---
Subjective - Date & Time of Evaluation Date of Evaluation: 03/06/18 Time of Evaluation: 11:42 - Subjective Subjective: For thporacentesis later Remains on vent; cpap trial now good UO Receiving lasix, aldactone , diamox K low- kphos being repleted opens eyes Objective - Vital Signs/Intake and Output Vital Signs (last 24 hours): Temp Pulse Resp BP Pulse Ox 97.6 F 86 30 H 137/80 100 03/06/18 08:00 03/06/18 11:01 03/06/18 11:01 03/06/18 11:01 03/06/18 11:01 Intake and Output: 03/06/18 03/06/18 06:59 18:59 Intake Total 1808.6 341.4 Output Total 675 325 Balance 1133.6 16.4 - Medications Medications: Current Medications Acetazolamide (Diamox 500 Mg Inj) 500 mg IV Q12H [facility] Stop: 03/07/18 04:31 Last Admin: 03/06/18 05:26 Dose: 500 mg Albuterol/Ipratropium (Duoneb 3 Mg/0.5 Mg (3 Ml) Ud) 3 ml INH RQ6 [facility] Last Admin: 03/06/18 08:15 Dose: 3 ml Dextrose (Glutose 15) 0 gm PO ONCE PRN; Protocol PRN Reason: Hypoglycemia Protocol Folic Acid (Folic Acid) 1 mg PO DAILY [facility] Last Admin: 03/06/18 09:08 Dose: 1 mg Furosemide (Lasix) 20 mg PO DAILY [facility] Last Admin: 03/06/18 09:54 Dose: 20 mg Glucagon (Glucagen Diagnostic Kit) 1 mg IM STAT PRN; Protocol PRN Reason: Hypoglycemia Protocol Guaifenesin (Robitussin) 100 mg PO Q4H PRN PRN Reason: Cough Dexmedetomidine HCl 200 mcg/ (Sodium Chloride) 50 mls @ 3.79 mls/hr IV TITR PRN; Protocol PRN Reason: Agitation Last Titration: 03/06/18 10:42 Dose: 0.1 mcg/kg/hr, 1.9 mls/hr Vancomycin/Sodium Chloride (Vancomycin 1 Gm/Ns 200 Ml) 1 gm in 200 mls @ 133 mls/hr IVPB Q8H [facility]; Protocol Stop: 03/08/18 19:01 Last Admin: 03/04/18 11:35 Dose: Not Given Piperacillin Sod/Tazobactam Sod (Zosyn 3.375 Gm Iv Premix) 3.375 gm in 50 mls @ 100 mls/hr IVPB Q6H [facility]; Protocol Last Admin: 03/06/18 07:01 Dose: 100 mls/hr Potassium Phosphate 15 mmole/ (Sodium Chloride) 255 mls @ 42.5 mls/hr IVPB ONCE ONE Stop: 03/06/18 17:59 Lactobacillus Acidophilus (Bacid Acidophilus) 1 cap PO BID [facility] Last Admin: 03/06/18 09:08 Dose: 1 cap Lorazepam (Ativan) 1 mg IVP Q6H PRN PRN Reason: Agitation Last Admin: 03/04/18 16:29 Dose: 1 mg Multivitamins (Hexavitamin) 1 tab PO DAILY [facility] Last Admin: 03/06/18 09:08 Dose: 1 tab Pantoprazole Sodium (Protonix Susp) 40 mg PO 0600 [facility] Last Admin: 03/06/18 06:56 Dose: 40 mg Spironolactone (Aldactone) 25 mg PO DAILY [facility] Last Admin: 03/06/18 09:55 Dose: 25 mg Thiamine HCl (Vitamin B1 Tab) 100 mg PO BID [facility] Last Admin: 03/06/18 09:08 Dose: 100 mg - Labs Labs: 03/06/18 09:31 03/06/18 09:31 PT 20.8 SECONDS (9.7-12.2) H 03/06/18 09:31 INR 1.9 03/06/18 09:31 APTT 37 SECONDS (21-34) H 03/05/18 05:51 - Constitutional Appears: In Acute Distress, Cachectic, Chronically Ill - Head Exam Head Exam: ATRAUMATIC, NORMAL INSPECTION - Eye Exam Eye Exam: Normal appearance - Neck Exam Neck Exam: Normal Inspection. absent: Tenderness - Respiratory Exam Respiratory Exam: Decreased Breath Sounds, Respiratory Distress - Cardiovascular Exam Cardiovascular Exam: REGULAR RHYTHM, +S1 - GI/Abdominal Exam GI & Abdominal Exam: Soft. absent: Tenderness - Extremities Exam Extremities Exam: Normal Inspection. absent: Tenderness - Neurological Exam Neurological Exam: Altered - Skin Skin Exam: Dry, Warm Assessment and Plan (1) Respiratory failure Status: Acute (2) Alcoholic cirrhosis Status: Acute (3) Hyponatremia syndrome Status: Acute (4) Subdural hemorrhage Status: Acute (5) Alcohol abuse with intoxication Status: Acute (6) Electrolyte imbalance Status: Acute - Assessment and Plan (Free Text) Plan: now with metabolic acidosis/ respiratory alkalosis k low- worsened by lasix, diamox would hold diamox, would change lasix to prn only- would hold now agree with K, phos repletion
[2018-03-06] MEDS ORDERED: Potassium Phosphate 15 MMOLE in Sodium Chloride 0.9% 250 ML IVPB ONE (12:00)
--- NOTE | 2018-03-06 14:06 | CP.PCM.PN ---
Subjective - Date & Time of Evaluation Date of Evaluation: 03/06/18 Time of Evaluation: 14:04 - Subjective Subjective: CT stable, mildly inc SDH since original min ME 2 to marked atrophy Pt suffering with mult medical probs at this time NOT acandidate for basically elective drainage SDHs suggest cont Tx of other issues f/u CT i week Objective - Vital Signs/Intake and Output Vital Signs (last 24 hours): Temp Pulse Resp BP Pulse Ox 97.6 F 70 15 128/68 100 03/06/18 12:00 03/06/18 14:00 03/06/18 14:00 03/06/18 14:01 03/06/18 14:00 Intake and Output: 03/06/18 03/06/18 06:59 18:59 Intake Total 1808.6 744.6 Output Total 675 625 Balance 1133.6 119.6 - Medications Medications: Current Medications Albuterol/Ipratropium (Duoneb 3 Mg/0.5 Mg (3 Ml) Ud) 3 ml INH RQ6 [facility] Last Admin: 03/06/18 13:38 Dose: 3 ml Dextrose (Glutose 15) 0 gm PO ONCE PRN; Protocol PRN Reason: Hypoglycemia Protocol Folic Acid (Folic Acid) 1 mg PO DAILY [facility] Last Admin: 03/06/18 09:08 Dose: 1 mg Furosemide (Lasix) 20 mg PO DAILY [facility] Last Admin: 03/06/18 09:54 Dose: 20 mg Glucagon (Glucagen Diagnostic Kit) 1 mg IM STAT PRN; Protocol PRN Reason: Hypoglycemia Protocol Guaifenesin (Robitussin) 100 mg PO Q4H PRN PRN Reason: Cough Dexmedetomidine HCl 200 mcg/ (Sodium Chloride) 50 mls @ 3.79 mls/hr IV TITR PRN; Protocol PRN Reason: Agitation Last Titration: 03/06/18 10:42 Dose: 0.1 mcg/kg/hr, 1.9 mls/hr Vancomycin/Sodium Chloride (Vancomycin 1 Gm/Ns 200 Ml) 1 gm in 200 mls @ 133 ml s/hr IVPB Q8H [facility]; Protocol Stop: 03/08/18 19:01 Last Admin: 03/04/18 11:35 Dose: Not Given Piperacillin Sod/Tazobactam Sod (Zosyn 3.375 Gm Iv Premix) 3.375 gm in 50 mls @ 100 mls/hr IVPB Q6H [facility]; Protocol Last Admin: 03/06/18 11:51 Dose: 100 mls/hr Potassium Phosphate 15 mmole/ (Sodium Chloride) 255 mls @ 42.5 mls/hr IVPB ONCE ONE Stop: 03/06/18 17:59 Last Admin: 03/06/18 11:51 Dose: 42.5 mls/hr Lactobacillus Acidophilus (Bacid Acidophilus) 1 cap PO BID [facility] Last Admin: 03/06/18 09:08 Dose: 1 cap Lorazepam (Ativan) 1 mg IVP Q6H PRN PRN Reason: Agitation Last Admin: 03/04/18 16:29 Dose: 1 mg Multivitamins (Hexavitamin) 1 tab PO DAILY [facility] Last Admin: 03/06/18 09:08 Dose: 1 tab Pantoprazole Sodium (Protonix Susp) 40 mg PO 0600 [facility] Last Admin: 03/06/18 06:56 Dose: 40 mg Spironolactone (Aldactone) 25 mg PO DAILY [facility] Last Admin: 03/06/18 09:55 Dose: 25 mg Thiamine HCl (Vitamin B1 Tab) 100 mg PO BID [facility] Last Admin: 03/06/18 09:08 Dose: 100 mg - Labs Labs: 03/06/18 09:31 03/06/18 09:31 PT 20.8 SECONDS (9.7-12.2) H 03/06/18 09:31 INR 1.9 03/06/18 09:31 APTT 37 SECONDS (21-34) H 03/05/18 05:51
[2018-03-07] MEDS: Piperacill/Tazo 3.375gm in Dex 3.375 GM/50 ML BAG IVPB SCH ×4 (00:12→19:30)
[2018-03-07] MEDS: Dexmedetomidine Hydrochloride 200 MCG in Sodium Chloride 0.9% 48 ML IV PRN ×3 (00:13→23:00)
[2018-03-07] MEDS: Albuterol-Ipratrop 3 mg / 0.5 (3 ml) UD INH SCH ×4 (01:59→19:57)
[2018-03-07 05:32] LABS: ARTERIAL BLOOD GAS HCO3 20.7 mmol/L (21-28); ARTERIAL BLOOD GAS HEMOGLOBIN 8.2 g/dL (11.7-17.4); ARTERIAL BLOOD GAS O2 SAT 100.2 % (95-98); ARTERIAL BLOOD GAS PCO2 28 mm/Hg (35-45); ARTERIAL BLOOD GAS PH 7.42 (7.35-7.45); ARTERIAL BLOOD GAS PO2 113 mm/Hg (80-100); ARTERIAL BLOOD GAS TCO2 19.1 mmol/L (22-28)
[2018-03-07] MEDS: Pantoprazole 40 mg Susp UD PO SCH (06:03)
[2018-03-07 06:39] LABS: BASO # 0.1 K/uL (0.0-0.2); BASO % 1.4 % (0.0-2.0); EOS # 0.1 K/uL (0.0-0.7); EOS % 2.3 % (0.0-4.0); LYMPH # 1.5 K/uL (1.0-4.3); LYMPH % 23.8 % (20.0-40.0); MEAN CELL VOLUME 101.4 fL (80.0-94.0); MEAN CORPUSCULAR HEMOGLOBIN 34.2 pg (27.0-31.0); MEAN CORPUSCULAR HGB CONC 33.8 g/dL (33.0-37.0); MEAN PLATELET VOLUME 10.7 fL (7.2-11.7); MONO # 0.5 K/uL (0.0-0.8); MONO % 8.6 % (0.0-10.0); NEUT # 4.1 K/uL (1.8-7.0); NEUT % 63.9 % (50.0-75.0); NRBC % 0.1 % (0.0-2.0); RBC 2.34 Mil/uL (4.40-5.90); RED CELL DISTRIBUTION WIDTH 20.6 % (11.5-14.5); WHITE BLOOD COUNT 6.3 K/uL (4.8-10.8)
[2018-03-07 06:46] LABS: INR 1.9; PROTHROMBIN TIME 20.6 SECONDS (9.7-12.2)
[2018-03-07 06:50] LABS: ALB/GLOB RATIO 0.6 (1.0-2.1); ALBUMIN 2.5 g/dL (3.5-5.0); ALT/SGPT 59 U/L (21-72); AST/SGOT 146 U/L (17-59); BLOOD UREA NITROGEN 12 mg/dL (9-20); CALCIUM 7.8 mg/dl (8.6-10.4); GFR NON-AFRICAN AMERICAN > 60
--- NOTE | 2018-03-07 07:54 | CP.CCUPN ---
<Rogers Morrow - Last Filed: 03/07/18 18:39> CCU Subjective - Physician Review Subjective (Free Text): 03/07/18 07:54 PGY-1 Critical Care Progress Note for Dr. Shields Patient seen and examined at bedside this AM. No acute overnight events reported. Patient off precedex, arousable to verbal/tactile stimuli. Orally intubated on CPAP, not in acute distress. 12 pt ROS unattainable due to clinical status. 03/07/18 14:[address] Shields at bedside. 18 gauge needle used to R posterior chest. 1L fluid drained with no complications. Sterile dressing applied to site. CXR: status post R thoracentesis with decrease in R pleural effusion and commensurate re-expansion R lung. No pneumothorax. Critical Care Time Spent (in minutes): 35 CCU Objective - Vital Signs / Intake & Output Vital Signs (Last 4 hours): Vital Signs Pulse Resp BP Pulse Ox 03/07/18 07:31 70 25 H 112/63 98 03/07/18 07:17 82 26 H 127/69 98 03/07/18 07:01 70 27 H 120/69 100 03/07/18 07:00 76 28 H 100 03/07/18 06:46 67 21 96/58 L 99 03/07/18 06:31 69 23 106/63 100 03/07/18 06:17 72 25 H 108/63 100 03/07/18 06:01 68 21 112/66 100 03/07/18 06:00 68 20 100 03/07/18 05:46 71 24 120/70 100 03/07/18 05:31 74 25 H 122/73 100 03/07/18 05:16 80 26 H 139/76 100 03/07/18 05:01 80 20 132/81 99 03/07/18 05:00 85 11 L 100 03/07/18 04:48 85 133/71 100 03/07/18 04:32 80 28 H 123/67 98 03/07/18 04:16 69 21 116/67 100 03/07/18 04:01 68 23 120/70 100 03/07/18 04:00 69 22 100 Intake and Output (Last 8hrs): Intake & Output 03/06/18 03/07/18 03/07/18 22:59 06:59 14:59 Intake Total 558.7 564.2 Output Total 500 600 Balance 58.7 -35.8 Weight 148 lb 9.465 oz Intake: IV 32 13 Intake, IV Amount 206.7 131.2 LA MIDLINE 147.0 31.2 LEFT FA Y 50 Left Forearm 9.7 100 Tube Feeding 320 320 Other 100 Output: Urine 500 600 Condom 500 600 - Physical Exam Head: Positive for: Atraumatic, Normocephalic Pupils: Positive for: PERRL Extroacular Muscles: Positive for: EOMI Conjunctiva: Positive for: Normal, Icteric (bilaterally ) Mouth: Positive for: Moist Mucous Membranes Neck: Positive for: Normal Range of Motion Respiratory/Chest: Positive for: Other (intubated ). Negative for: Respiratory Distress, Accessory Muscle Use Cardiovascular: Positive for: Regular Rate and Rhythm, Normal S1, S2. Negative for: Murmurs Abdomen: Positive for: Normal Bowel Sounds. Negative for: Tenderness, Distention Back: Positive for: Normal Inspection Lower Extremity: Positive for: Edema (bilaterally ), Neurovascularly Intact, Capillary Refill < 2 s. Negative for: Tenderness Neurological: Positive for: Other (more alert today to tactile, verbal stimuli) Skin: Positive for: Warm, Dry Psychiatric: Positive for: Alert - Medications Active Medications: Active Medications Generic Name Dose Route Start Last Admin Trade Name Freq PRN Reason Stop Dose Admin Albuterol/Ipratropium 3 ml 03/03/18 20:00 03/07/18 01:59 Duoneb 3 Mg/0.5 Mg (3 Ml) Ud INH 3 ml RQ6 ASHLEIGH Administration Dextrose 0 gm 02/28/18 07:44 Glutose 15 PO ONCE PRN Hypoglycemia Protocol Protocol Folic Acid 1 mg 03/03/18 10:00 03/06/18 09:08 Folic Acid PO 1 mg DAILY ASHLEIGH Administration Furosemide 20 mg 03/06/18 10:00 03/06/18 09:54 Lasix PO 20 mg DAILY ASHLEIGH Administration Glucagon 1 mg 02/28/18 07:44 Glucagen Diagnostic Kit IM STAT PRN Hypoglycemia Protocol Protocol Guaifenesin 100 mg 03/03/18 18:27 Robitussin PO Q4H PRN Cough Dexmedetomidine HCl 200 mcg/ 50 mls @ 3.79 mls/hr 03/01/18 16:36 03/07/18 00:13 Sodium Chloride IV 0.2 mcg/kg/hr TITR PRN 3.8 mls/hr Agitation Administration Protocol 0.2 MCG/KG/HR Vancomycin/Sodium Chloride 1 gm in 200 mls @ 133 mls/hr 03/03/18 19:00 03/04/18 11:35 Vancomycin 1 Gm/Ns 200 Ml IVPB 03/08/18 19:01 Not Given Q8H ASHLEIGH Protocol Piperacillin Sod/Tazobactam Sod 3.375 gm in 50 mls @ 100 mls/hr 03/05/18 12:30 03/07/18 06:01 Zosyn 3.375 Gm Iv Premix IVPB 100 mls/hr Q6H ASHLEIGH Administration Protocol Lactobacillus Acidophilus 1 cap 02/28/18 10:00 03/06/18 17:59 Bacid Acidophilus PO 1 cap BID ASHLEIGH Administration Lorazepam 1 mg 02/28/18 17:20 03/04/18 16:29 Ativan IVP 1 mg Q6H PRN Administration Agitation Multivitamins 1 tab 03/03/18 10:00 03/06/18 09:08 Hexavitamin PO 1 tab DAILY ASHLEIGH Administration Pantoprazole Sodium 40 mg 03/05/18 06:00 03/07/18 06:03 Protonix Susp PO 40 mg 0600 ASHELIGH Administration Spironolactone 25 mg 03/06/18 10:00 03/06/18 09:55 Aldactone PO 25 mg DAILY ASHLEIGH Administration Thiamine HCl 100 mg 03/03/18 10:00 03/06/18 17:59 Vitamin B1 Tab PO 100 mg BID ASHLEIGH Administration - Patient Studies Lab Studies: Lab Studies 03/07/18 03/07/18 03/07/18 Range/Units 06:32 06:32 06:30 WBC 6.3 (4.8-10.8) K/uL RBC 2.34 L (4.40-5.90) Mil/uL Hgb 8.0 L (12.0-18.0) g/dL Hct 23.8 L (35.0-51.0) % MCV 101.4 H (80.0-94.0) fL MCH 34.2 H (27.0-31.0) pg MCHC 33.8 (33.0-37.0) g/dL RDW 20.6 H (11.5-14.5) % Plt Count 103 L (130-400) K/uL MPV 10.7 (7.2-11.7) fL Neut % (Auto) 63.9 (50.0-75.0) % Lymph % (Auto) 23.8 (20.0-40.0) % Petroleum % (Auto) 8.6 (0.0-10.0) % Eos % (Auto) 2.3 (0.0-4.0) % Baso % (Auto) 1.4 (0.0-2.0) % Neut # (Auto) 4.1 (1.8-7.0) K/uL Lymph # (Auto) 1.5 (1.0-4.3) K/uL Petroleum # (Auto) 0.5 (0.0-0.8) K/uL Eos # (Auto) 0.1 (0.0-0.7) K/uL Baso # (Auto) 0.1 (0.0-0.2) K/uL PT 20.6 H (9.7-12.2) SECONDS INR 1.9 Puncture Site pCO2 (35-45) mm/Hg pO2 (80-100) mm/Hg HCO3 (21-28) mmol/L ABG pH (7.35-7.45) ABG Total CO2 (22-28) mmol/L ABG O2 Saturation (95-98) % ABG Base Excess (-2.0-3.0) mmol/L ABG Hemoglobin (11.7-17.4) g/dL ABG Carboxyhemoglobin (0.5-1.5) % POC ABG HHb (Measured) (0.0-5.0) % ABG Methemoglobin (0.0-3.0) % Rei Test A-a O2 Difference mm/Hg Respiratory Index Hgb O2 Saturation (95.0-98.0) % Vent Mode Mechanical Rate FiO2 % Tidal Volume PEEP Sodium 136 (132-148) mmol/L Potassium 3.1 L (3.6-5.2) mmol/L Chloride 108 H (98-107) mmol/L Carbon Dioxide 19 L (22-30) mmol/L Anion Gap 12 (10-20) BUN 12 (9-20) mg/dL Creatinine 0.7 L (0.8-1.5) mg/dL Est GFR ( Amer) > 60 Est GFR (Non-Af Amer) > 60 POC Glucose (mg/dL) (65-110) mg/dL Random Glucose 108 (75-110) mg/dL Calcium 7.8 L (8.6-10.4) mg/dl Phosphorus (2.5-4.5) mg/dL Magnesium 1.7 (1.6-2.3) mg/dL Total Bilirubin 7.3 H (0.2-1.3) mg/dL AST 146 H (17-59) U/L ALT 59 (21-72) U/L Alkaline Phosphatase 176 H (38-126) U/L Total Protein 6.9 (6.3-8.3) g/dL Albumin 2.5 L (3.5-5.0) g/dL Globulin 4.4 H (2.2-3.9) gm/dL Albumin/Globulin Ratio 0.6 L (1.0-2.1) Random Vancomycin ug/mL 03/07/18 03/07/18 03/06/18 Range/Units 05:17 00:04 17:56 WBC (4.8-10.8) K/uL RBC (4.40-5.90) Mil/uL Hgb (12.0-18.0) g/dL Hct (35.0-51.0) % MCV (80.0-94.0) fL MCH (27.0-31.0) pg MCHC (33.0-37.0) g/dL RDW (11.5-14.5) % Plt Count (130-400) K/uL MPV (7.2-11.7) fL Neut % (Auto) (50.0-75.0) % Lymph % (Auto) (20.0-40.0) % Petroleum % (Auto) (0.0-10.0) % Eos % (Auto) (0.0-4.0) % Baso % (Auto) (0.0-2.0) % Neut # (Auto) (1.8-7.0) K/uL Lymph # (Auto) (1.0-4.3) K/uL Petroleum # (Auto) (0.0-0.8) K/uL Eos # (Auto) (0.0-0.7) K/uL Baso # (Auto) (0.0-0.2) K/uL PT (9.7-12.2) SECONDS INR Puncture Site Rb pCO2 28 L (35-45) mm/Hg pO2 113 H (80-100) mm/Hg HCO3 20.7 L (21-28) mmol/L ABG pH 7.42 (7.35-7.45) ABG Total CO2 19.1 L (22-28) mmol/L ABG O2 Saturation 100.2 H (95-98) % ABG Base Excess -5.5 L (-2.0-3.0) mmol/L ABG Hemoglobin 8.2 L (11.7-17.4) g/dL ABG Carboxyhemoglobin 2.8 H (0.5-1.5) % POC ABG HHb (Measured) -0.2 L (0.0-5.0) % ABG Methemoglobin 1.0 (0.0-3.0) % Rei Test Na A-a O2 Difference 137.0 mm/Hg Respiratory Index 1.2 Hgb O2 Saturation 96.4 (95.0-98.0) % Vent Mode Prvc Mechanical Rate 16 FiO2 40.0 % Tidal Volume 450 PEEP 5 Sodium (132-148) mmol/L Potassium (3.6-5.2) mmol/L Chloride (98-107) mmol/L Carbon Dioxide (22-30) mmol/L Anion Gap (10-20) BUN (9-20) mg/dL Creatinine (0.8-1.5) mg/dL Est GFR ( Amer) Est GFR (Non-Af Amer) POC Glucose (mg/dL) 109 98 (65-110) mg/dL Random Glucose (75-110) mg/dL Calcium (8.6-10.4) mg/dl Phosphorus (2.5-4.5) mg/dL Magnesium (1.6-2.3) mg/dL Total Bilirubin (0.2-1.3) mg/dL AST (17-59) U/L ALT (21-72) U/L Alkaline Phosphatase (38-126) U/L Total Protein (6.3-8.3) g/dL Albumin (3.5-5.0) g/dL Globulin (2.2-3.9) gm/dL Albumin/Globulin Ratio (1.0-2.1) Random Vancomycin ug/mL 03/06/18 03/06/18 03/06/18 Range/Units 11:32 09:31 09:31 WBC 6.9 (4.8-10.8) K/uL RBC 2.29 L (4.40-5.90) Mil/uL Hgb 7.7 L (12.0-18.0) g/dL Hct 23.4 L (35.0-51.0) % MCV 102.4 H D (80.0-94.0) fL MCH 33.8 H (27.0-31.0) pg MCHC 33.0 (33.0-37.0) g/dL RDW 21.3 H (11.5-14.5) % Plt Count 107 L D (130-400) K/uL MPV 10.0 (7.2-11.7) fL Neut % (Auto) 73.6 (50.0-75.0) % Lymph % (Auto) 15.4 L (20.0-40.0) % Petroleum % (Auto) 8.2 (0.0-10.0) % Eos % (Auto) 2.0 (0.0-4.0) % Baso % (Auto) 0.8 (0.0-2.0) % Neut # (Auto) 5.1 (1.8-7.0) K/uL Lymph # (Auto) 1.1 (1.0-4.3) K/uL Petroleum # (Auto) 0.6 (0.0-0.8) K/uL Eos # (Auto) 0.1 (0.0-0.7) K/uL Baso # (Auto) 0.1 (0.0-0.2) K/uL PT (9.7-12.2) SECONDS INR Puncture Site pCO2 (35-45) mm/Hg pO2 (80-100) mm/Hg HCO3 (21-28) mmol/L ABG pH (7.35-7.45) ABG Total CO2 (22-28) mmol/L ABG O2 Saturation (95-98) % ABG Base Excess (-2.0-3.0) mmol/L ABG Hemoglobin (11.7-17.4) g/dL ABG Carboxyhemoglobin (0.5-1.5) % POC ABG HHb (Measured) (0.0-5.0) % ABG Methemoglobin (0.0-3.0) % Rei Test A-a O2 Difference mm/Hg Respiratory Index Hgb O2 Saturation (95.0-98.0) % Vent Mode Mechanical Rate FiO2 % Tidal Volume PEEP Sodium (132-148) mmol/L Potassium (3.6-5.2) mmol/L Chloride (98-107) mmol/L Carbon Dioxide (22-30) mmol/L Anion Gap (10-20) BUN (9-20) mg/dL Creatinine (0.8-1.5) mg/dL Est GFR ( Amer) Est GFR (Non-Af Amer) POC Glucose (mg/dL) 116 H (65-110) mg/dL Random Glucose (75-110) mg/dL Calcium (8.6-10.4) mg/dl Phosphorus (2.5-4.5) mg/dL Magnesium (1.6-2.3) mg/dL Total Bilirubin (0.2-1.3) mg/dL AST (17-59) U/L ALT (21-72) U/L Alkaline Phosphatase (38-126) U/L Total Protein (6.3-8.3) g/dL Albumin (3.5-5.0) g/dL Globulin (2.2-3.9) gm/dL Albumin/Globulin Ratio (1.0-2.1) Random Vancomycin < 5.0 ug/mL 03/06/18 03/06/18 03/06/18 Range/Units 09:31 09:31 00:13 WBC (4.8-10.8) K/uL RBC (4.40-5.90) Mil/uL Hgb (12.0-18.0) g/dL Hct (35.0-51.0) % MCV (80.0-94.0) fL MCH (27.0-31.0) pg MCHC (33.0-37.0) g/dL RDW (11.5-14.5) % Plt Count (130-400) K/uL MPV (7.2-11.7) fL Neut % (Auto) (50.0-75.0) % Lymph % (Auto) (20.0-40.0) % Petroleum % (Auto) (0.0-10.0) % Eos % (Auto) (0.0-4.0) % Baso % (Auto) (0.0-2.0) % Neut # (Auto) (1.8-7.0) K/uL Lymph # (Auto) (1.0-4.3) K/uL Petroleum # (Auto) (0.0-0.8) K/uL Eos # (Auto) (0.0-0.7) K/uL Baso # (Auto) (0.0-0.2) K/uL PT 20.8 H (9.7-12.2) SECONDS INR 1.9 Puncture Site pCO2 (35-45) mm/Hg pO2 (80-100) mm/Hg HCO3 (21-28) mmol/L ABG pH (7.35-7.45) ABG Total CO2 (22-28) mmol/L ABG O2 Saturation (95-98) % ABG Base Excess (-2.0-3.0) mmol/L ABG Hemoglobin (11.7-17.4) g/dL ABG Carboxyhemoglobin (0.5-1.5) % POC ABG HHb (Measured) (0.0-5.0) % ABG Methemoglobin (0.0-3.0) % Rei Test A-a O2 Difference mm/Hg Respiratory Index Hgb O2 Saturation (95.0-98.0) % Vent Mode Mechanical Rate FiO2 % Tidal Volume PEEP Sodium 137 (132-148) mmol/L Potassium 3.0 L (3.6-5.2) mmol/L Chloride 110 H (98-107) mmol/L Carbon Dioxide 20 L (22-30) mmol/L Anion Gap 10 (10-20) BUN 10 (9-20) mg/dL Creatinine 0.7 L (0.8-1.5) mg/dL Est GFR ( Amer) > 60 Est GFR (Non-Af Amer) > 60 POC Glucose (mg/dL) 131 H (65-110) mg/dL Random Glucose 101 (75-110) mg/dL Calcium 7.8 L (8.6-10.4) mg/dl Phosphorus 2.1 L (2.5-4.5) mg/dL Magnesium 1.8 (1.6-2.3) mg/dL Total Bilirubin 7.3 H (0.2-1.3) mg/dL AST 165 H D (17-59) U/L ALT 65 (21-72) U/L Alkaline Phosphatase 190 H (38-126) U/L Total Protein 6.8 (6.3-8.3) g/dL Albumin 2.6 L (3.5-5.0) g/dL Globulin 4.2 H (2.2-3.9) gm/dL Albumin/Globulin Ratio 0.6 L (1.0-2.1) Random Vancomycin ug/mL Laboratory Results - last 24 hr 03/06/18 03/06/18 03/06/18 00:13 09:31 09:31 WBC RBC Hgb Hct MCV MCH MCHC RDW Plt Count MPV Neut % (Auto) Lymph % (Auto) Petroleum % (Auto) Eos % (Auto) Baso % (Auto) Neut # (Auto) Lymph # (Auto) Petroleum # (Auto) Eos # (Auto) Baso # (Auto) PT 20.8 H INR 1.9 Puncture Site pCO2 pO2 HCO3 ABG pH ABG Total CO2 ABG O2 Saturation ABG Base Excess ABG Hemoglobin ABG Carboxyhemoglobin POC ABG HHb (Measured) ABG Methemoglobin Rei Test A-a O2 Difference Respiratory Index Hgb O2 Saturation Vent Mode Mechanical Rate FiO2 Tidal Volume PEEP Sodium 137 Potassium 3.0 L Chloride 110 H Carbon Dioxide 20 L Anion Gap 10 BUN 10 Creatinine 0.7 L Est GFR ( Amer) > 60 Est GFR (Non-Af Amer) > 60 POC Glucose (mg/dL) 131 H Random Glucose 101 Calcium 7.8 L Phosphorus 2.1 L Magnesium 1.8 Total Bilirubin 7.3 H AST 165 H D ALT 65 Alkaline Phosphatase 190 H Total Protein 6.8 Albumin 2.6 L Globulin 4.2 H Albumin/Globulin Ratio 0.6 L Random Vancomycin 03/06/18 03/06/18 03/06/18 09:31 09:31 11:32 WBC 6.9 RBC 2.29 L Hgb 7.7 L Hct 23.4 L MCV 102.4 H D MCH 33.8 H MCHC 33.0 RDW 21.3 H Plt Count 107 L D MPV 10.0 Neut % (Auto) 73.6 Lymph % (Auto) 15.4 L Petroleum % (Auto) 8.2 Eos % (Auto) 2.0 Baso % (Auto) 0.8 Neut # (Auto) 5.1 Lymph # (Auto) 1.1 Petroleum # (Auto) 0.6 Eos # (Auto) 0.1 Baso # (Auto) 0.1 PT INR Puncture Site pCO2 pO2 HCO3 ABG pH ABG Total CO2 ABG O2 Saturation ABG Base Excess ABG Hemoglobin ABG Carboxyhemoglobin POC ABG HHb (Measured) ABG Methemoglobin Rei Test A-a O2 Difference Respiratory Index Hgb O2 Saturation Vent Mode Mechanical Rate FiO2 Tidal Volume PEEP Sodium Potassium Chloride Carbon Dioxide Anion Gap BUN Creatinine Est GFR ( Amer) Est GFR (Non-Af Amer) POC Glucose (mg/dL) 116 H Random Glucose Calcium Phosphorus Magnesium Total Bilirubin AST ALT Alkaline Phosphatase Total Protein Albumin Globulin Albumin/Globulin Ratio Random Vancomycin < 5.0 03/06/18 03/07/18 03/07/18 17:56 00:04 05:17 WBC RBC Hgb Hct MCV MCH MCHC RDW Plt Count MPV Neut % (Auto) Lymph % (Auto) Petroleum % (Auto) Eos % (Auto) Baso % (Auto) Neut # (Auto) Lymph # (Auto) Petroleum # (Auto) Eos # (Auto) Baso # (Auto) PT INR Puncture Site Rb pCO2 28 L pO2 113 H HCO3 20.7 L ABG pH 7.42 ABG Total CO2 19.1 L ABG O2 Saturation 100.2 H ABG Base Excess -5.5 L ABG Hemoglobin 8.2 L ABG Carboxyhemoglobin 2.8 H POC ABG HHb (Measured) -0.2 L ABG Methemoglobin 1.0 Rei Test Na A-a O2 Difference 137.0 Respiratory Index 1.2 Hgb O2 Saturation 96.4 Vent Mode Prvc Mechanical Rate 16 FiO2 40.0 Tidal Volume 450 PEEP 5 Sodium Potassium Chloride Carbon Dioxide Anion Gap BUN Creatinine Est GFR ( Amer) Est GFR (Non-Af Amer) POC Glucose (mg/dL) 98 109 Random Glucose Calcium Phosphorus Magnesium Total Bilirubin AST ALT Alkaline Phosphatase Total Protein Albumin Globulin Albumin/Globulin Ratio Random Vancomycin 03/07/18 03/07/18 03/07/18 06:30 06:32 06:32 WBC 6.3 RBC 2.34 L Hgb 8.0 L Hct 23.8 L MCV 101.4 H MCH 34.2 H MCHC 33.8 RDW 20.6 H Plt Count 103 L MPV 10.7 Neut % (Auto) 63.9 Lymph % (Auto) 23.8 Petroleum % (Auto) 8.6 Eos % (Auto) 2.3 Baso % (Auto) 1.4 Neut # (Auto) 4.1 Lymph # (Auto) 1.5 Petroleum # (Auto) 0.5 Eos # (Auto) 0.1 Baso # (Auto) 0.1 PT 20.6 H INR 1.9 Puncture Site pCO2 pO2 HCO3 ABG pH ABG Total CO2 ABG O2 Saturation ABG Base Excess ABG Hemoglobin ABG Carboxyhemoglobin POC ABG HHb (Measured) ABG Methemoglobin Rei Test A-a O2 Difference Respiratory Index Hgb O2 Saturation Vent Mode Mechanical Rate FiO2 Tidal Volume PEEP Sodium 136 Potassium 3.1 L Chloride 108 H Carbon Dioxide 19 L Anion Gap 12 BUN 12 Creatinine 0.7 L Est GFR ( Amer) > 60 Est GFR (Non-Af Amer) > 60 POC Glucose (mg/dL) Random Glucose 108 Calcium 7.8 L Phosphorus Magnesium 1.7 Total Bilirubin 7.3 H AST 146 H ALT 59 Alkaline Phosphatase 176 H Total Protein 6.9 Albumin 2.5 L Globulin 4.4 H Albumin/Globulin Ratio 0.6 L Random Vancomycin Fingerstick Blood Sugar Results: 118 Review of Systems - Review of Systems All systems: reviewed and no additional remarkable complaints except Review of Systems: as per HPI Assessment/Plan - Assessment and Plan (Free Text) Assessment: 57 yo M with PMHx of multiple visits to the ED for alcohol intoxication BIBEMS for alcohol intoxication. Of note, the patient is homeless and was found on someone else's property. While in the ED: CXR was obtained and revealed right lower lobe infiltrates. Patient treated empirically for CAP. CT head without contrast was obtained 02/27/18 and revealed small subdural hematoma. Patient currently arousable but is not oriented. Patient was intubated on 03/03/18. Currently off precedex, arousable by verbal and tactile stimuli. Patient continues to be closely monitored in ICU. Possible thoracentesis pending IR recs . Plan: Neuro: -off precedex -arousable to verbal/tactile stimuli -has evolving subdural hematomas, now stabilizing. Neurosurgery on board. Pulm: -acute respiratory failure on ventilator 2/2 pneumonia -f/u pleural effusion u/s (03/07) -CXR (03/07): small b/l infiltrate R>L -CXR (03/06): Prominent diffuse b/l airspace consolidative opacities throughout lungs. Small b/l pleural effusions, cardiomegaly. Mild atherosclerotic calcification noted within the aorta. -Patient tolerating CPAP well, however still has a large amounts of secretions from ETT. Possible thoracentesis with IR for tomorrow. -mili krishnamurthy CV: -hemodynamically stable Heme: -INR 1.9 -PLT 103 -Per IR, thoracentesis if INR <1.5 and PLT >80 -10 mg Vitamin K given -no leukocytosis noted Renal: -K, phos repletion given -Nephro recs (Dr. Taylor) appreciated: patient now with metabolic acidosis/resp alkalosis; hypokalemia likely secondary to lasix, diamox; Diamox being held, would change lasix to prn only Endo: -no acute issues GI: -NPO, Jevity @ 20cc/hr ID: -Sepsis secondary to CAP -on Zosyn, Vanc on hold PPx, Diet, Disposition -DVT ppx: scds, anticoagulation being held d/t current subdural hematomas -GI ppx: protonix -gay for strict I/Os during acute illness -Diet: tube feeding, Jevity @ 20cc/hr -Code status: Full code Case discussed with Dr. Cornelius Morrow DO, PGY-1 <Olvin Shields S - Last Filed: 03/07/18 19:04> CCU Subjective - Physician Review Critical Care Time Spent (in minutes): 45 CCU Objective - Vital Signs / Intake & Output Vital Signs (Last 4 hours): Vital Signs Temp Pulse Resp BP Pulse Ox 03/07/18 17:16 83 25 H 138/77 100 03/07/18 17:01 90 35 H 140/82 98 03/07/18 17:00 91 H 40 H 100 11/20/18 16:46 87 40 H 148/87 99 03/07/18 16:31 84 29 H 148/75 100 03/07/18 16:17 83 29 H 137/78 100 03/07/18 16:01 71 27 H 116/65 100 03/07/18 16:00 99.5 F 72 28 H 100 03/07/18 15:46 72 28 H 116/67 100 03/07/18 15:31 68 20 94/53 L 100 03/07/18 15:16 77 21 104/62 100 03/07/18 15:01 82 24 121/80 99 Intake and Output (Last 8hrs): Intake & Output 03/07/18 03/07/18 03/07/18 06:59 14:59 22:59 Intake Total 564.2 673.4 131.7 Output Total 600 500 300 Balance -35.8 173.4 -168.3 Weight 148 lb 9.465 oz Intake: IV 13 70 0 Intake, IV Amount 131.2 323.4 11.7 LA MIDLINE 31.2 300 Left Forearm 100 23.4 11.7 Tube Feeding 320 280 120 Other 100 Output: Urine 600 500 300 Condom 600 500 300 Other: # Bowel Movements 0 0 - Medications Active Medications: Active Medications Generic Name Dose Route Start Last Admin Trade Name Freq PRN Reason Stop Dose Admin Albuterol/Ipratropium 3 ml 03/03/18 20:00 03/07/18 14:02 Duoneb 3 Mg/0.5 Mg (3 Ml) Ud INH Not Given RQ6 ASHLEIGH Dextrose 0 gm 02/28/18 07:44 Glutose 15 PO ONCE PRN Hypoglycemia Protocol Protocol Docusate Sodium 100 mg 03/07/18 18:00 03/07/18 18:21 Colace PO 100 mg DAILY PRN Administration Constipation Folic Acid 1 mg 03/03/18 10:00 03/07/18 10:15 Folic Acid PO 1 mg DAILY ASHLEIGH Administration Furosemide 20 mg 03/06/18 10:00 03/07/18 10:15 Lasix PO 20 mg DAILY ASHLEIGH Administration Glucagon 1 mg 02/28/18 07:44 Glucagen Diagnostic Kit IM STAT PRN Hypoglycemia Protocol Protocol Guaifenesin 100 mg 03/03/18 18:27 Robitussin PO Q4H PRN Cough Dexmedetomidine HCl 200 mcg/ 50 mls @ 3.79 mls/hr 03/01/18 16:36 03/07/18 17:00 Sodium Chloride IV 0.2 mcg/kg/hr TITR PRN 3.79 mls/hr Agitation Titration Protocol 0.2 MCG/KG/HR Piperacillin Sod/Tazobactam Sod 3.375 gm in 50 mls @ 100 mls/hr 03/05/18 12:30 03/07/18 12:27 Zosyn 3.375 Gm Iv Premix IVPB 100 mls/hr Q6H ASHLEIGH Administration Protocol Lactobacillus Acidophilus 1 cap 02/28/18 10:00 03/07/18 18:21 Bacid Acidophilus PO 1 cap BID ASHLEIGH Administration Lorazepam 1 mg 02/28/18 17:20 03/07/18 14:29 Ativan IVP 1 mg Q6H PRN Administration Agitation Multivitamins 1 tab 03/03/18 10:00 03/07/18 10:17 Hexavitamin PO 1 tab DAILY ASHLEIGH Administration Pantoprazole Sodium 40 mg 03/05/18 06:00 03/07/18 06:03 Protonix Susp PO 40 mg 0600 ASHLEIGH Administration Potassium Phos/Sodium Phos 1 pkt 03/07/18 10:45 03/07/18 18:21 Neutra-Phos PO 1 pkt BID ASHLEIGH Administration Spironolactone 25 mg 03/06/18 10:00 03/07/18 10:15 Aldactone PO 25 mg DAILY ASHLEIGH Administration Thiamine HCl 100 mg 03/03/18 10:00 03/07/18 18:23 Vitamin B1 Tab PO 100 mg BID ASHLEIGH Administration - Patient Studies Lab Studies: Lab Studies 03/07/18 03/07/18 03/07/18 Range/Units 18:08 15:23 12:18 WBC (4.8-10.8) K/uL RBC (4.40-5.90) Mil/uL Hgb (12.0-18.0) g/dL Hct (35.0-51.0) % MCV (80.0-94.0) fL MCH (27.0-31.0) pg MCHC (33.0-37.0) g/dL RDW (11.5-14.5) % Plt Count (130-400) K/uL MPV (7.2-11.7) fL Neut % (Auto) (50.0-75.0) % Lymph % (Auto) (20.0-40.0) % Petroleum % (Auto) (0.0-10.0) % Eos % (Auto) (0.0-4.0) % Baso % (Auto) (0.0-2.0) % Neut # (Auto) (1.8-7.0) K/uL Lymph # (Auto) (1.0-4.3) K/uL Petroleum # (Auto) (0.0-0.8) K/uL Eos # (Auto) (0.0-0.7) K/uL Baso # (Auto) (0.0-0.2) K/uL PT (9.7-12.2) SECONDS INR Puncture Site pCO2 (35-45) mm/Hg pO2 (80-100) mm/Hg HCO3 (21-28) mmol/L ABG pH (7.35-7.45) ABG Total CO2 (22-28) mmol/L ABG O2 Saturation (95-98) % ABG Base Excess (-2.0-3.0) mmol/L ABG Hemoglobin (11.7-17.4) g/dL ABG Carboxyhemoglobin (0.5-1.5) % POC ABG HHb (Measured) (0.0-5.0) % ABG Methemoglobin (0.0-3.0) % Rei Test A-a O2 Difference mm/Hg Respiratory Index Hgb O2 Saturation (95.0-98.0) % Vent Mode Mechanical Rate FiO2 % Tidal Volume PEEP Sodium (132-148) mmol/L Potassium (3.6-5.2) mmol/L Chloride (98-107) mmol/L Carbon Dioxide (22-30) mmol/L Anion Gap (10-20) BUN (9-20) mg/dL Creatinine (0.8-1.5) mg/dL Est GFR ( Amer) Est GFR (Non-Af Amer) POC Glucose (mg/dL) 99 108 (65-110) mg/dL Random Glucose (75-110) mg/dL Calcium (8.6-10.4) mg/dl Magnesium (1.6-2.3) mg/dL Total Bilirubin (0.2-1.3) mg/dL AST (17-59) U/L ALT (21-72) U/L Alkaline Phosphatase (38-126) U/L Total Protein (6.3-8.3) g/dL Albumin (3.5-5.0) g/dL Globulin (2.2-3.9) gm/dL Albumin/Globulin Ratio (1.0-2.1) Procalcitonin (0.19-0.49) NG/ML Fluid Source Pleural/thoracentesi Fluid Appearance Cloudy (CLEAR) Fluid WBC 2078.0 H (0.0-300.0) /mm3 Fluid RBC 2708.0 H (0.0-0.0) /mm3 Fluid Tot Cell Count 100 H (0-0) Fluid Neutrophils 23.0 H (0-0) % Fluid Lymphocytes 75.0 H (0-0) % Fld Monocyte/Macrophag 2 H (0-0) % Fluid Comment 03/07/18 03/07/18 03/07/18 Range/Units 08:13 06:32 06:32 WBC 6.3 (4.8-10.8) K/uL RBC 2.34 L (4.40-5.90) Mil/uL Hgb 8.0 L (12.0-18.0) g/dL Hct 23.8 L (35.0-51.0) % MCV 101.4 H (80.0-94.0) fL MCH 34.2 H (27.0-31.0) pg MCHC 33.8 (33.0-37.0) g/dL RDW 20.6 H (11.5-14.5) % Plt Count 103 L (130-400) K/uL MPV 10.7 (7.2-11.7) fL Neut % (Auto) 63.9 (50.0-75.0) % Lymph % (Auto) 23.8 (20.0-40.0) % Petroleum % (Auto) 8.6 (0.0-10.0) % Eos % (Auto) 2.3 (0.0-4.0) % Baso % (Auto) 1.4 (0.0-2.0) % Neut # (Auto) 4.1 (1.8-7.0) K/uL Lymph # (Auto) 1.5 (1.0-4.3) K/uL Petroleum # (Auto) 0.5 (0.0-0.8) K/uL Eos # (Auto) 0.1 (0.0-0.7) K/uL Baso # (Auto) 0.1 (0.0-0.2) K/uL PT 20.6 H (9.7-12.2) SECONDS INR 1.9 Puncture Site pCO2 (35-45) mm/Hg pO2 (80-100) mm/Hg HCO3 (21-28) mmol/L ABG pH (7.35-7.45) ABG Total CO2 (22-28) mmol/L ABG O2 Saturation (95-98) % ABG Base Excess (-2.0-3.0) mmol/L ABG Hemoglobin (11.7-17.4) g/dL ABG Carboxyhemoglobin (0.5-1.5) % POC ABG HHb (Measured) (0.0-5.0) % ABG Methemoglobin (0.0-3.0) % Rei Test A-a O2 Difference mm/Hg Respiratory Index Hgb O2 Saturation (95.0-98.0) % Vent Mode Mechanical Rate FiO2 % Tidal Volume PEEP Sodium (132-148) mmol/L Potassium (3.6-5.2) mmol/L Chloride (98-107) mmol/L Carbon Dioxide (22-30) mmol/L Anion Gap (10-20) BUN (9-20) mg/dL Creatinine (0.8-1.5) mg/dL Est GFR ( Amer) Est GFR (Non-Af Amer) POC Glucose (mg/dL) (65-110) mg/dL Random Glucose (75-110) mg/dL Calcium (8.6-10.4) mg/dl Magnesium (1.6-2.3) mg/dL Total Bilirubin (0.2-1.3) mg/dL AST (17-59) U/L ALT (21-72) U/L Alkaline Phosphatase (38-126) U/L Total Protein (6.3-8.3) g/dL Albumin (3.5-5.0) g/dL Globulin (2.2-3.9) gm/dL Albumin/Globulin Ratio (1.0-2.1) Procalcitonin 0.43 (0.19-0.49) NG/ML Fluid Source Fluid Appearance (CLEAR) Fluid WBC (0.0-300.0) /mm3 Fluid RBC (0.0-0.0) /mm3 Fluid Tot Cell Count (0-0) Fluid Neutrophils (0-0) % Fluid Lymphocytes (0-0) % Fld Monocyte/Macrophag (0-0) % Fluid Comment 03/07/18 03/07/18 03/07/18 Range/Units 06:30 06:27 05:23 WBC (4.8-10.8) K/uL RBC (4.40-5.90) Mil/uL Hgb (12.0-18.0) g/dL Hct (35.0-51.0) % MCV (80.0-94.0) fL MCH (27.0-31.0) pg MCHC (33.0-37.0) g/dL RDW (11.5-14.5) % Plt Count (130-400) K/uL MPV (7.2-11.7) fL Neut % (Auto) (50.0-75.0) % Lymph % (Auto) (20.0-40.0) % Petroleum % (Auto) (0.0-10.0) % Eos % (Auto) (0.0-4.0) % Baso % (Auto) (0.0-2.0) % Neut # (Auto) (1.8-7.0) K/uL Lymph # (Auto) (1.0-4.3) K/uL Petroleum # (Auto) (0.0-0.8) K/uL Eos # (Auto) (0.0-0.7) K/uL Baso # (Auto) (0.0-0.2) K/uL PT (9.7-12.2) SECONDS INR Puncture Site pCO2 (35-45) mm/Hg pO2 (80-100) mm/Hg HCO3 (21-28) mmol/L ABG pH (7.35-7.45) ABG Total CO2 (22-28) mmol/L ABG O2 Saturation (95-98) % ABG Base Excess (-2.0-3.0) mmol/L ABG Hemoglobin (11.7-17.4) g/dL ABG Carboxyhemoglobin (0.5-1.5) % POC ABG HHb (Measured) (0.0-5.0) % ABG Methemoglobin (0.0-3.0) % Rei Test A-a O2 Difference mm/Hg Respiratory Index Hgb O2 Saturation (95.0-98.0) % Vent Mode Mechanical Rate FiO2 % Tidal Volume PEEP Sodium 136 (132-148) mmol/L Potassium 3.1 L (3.6-5.2) mmol/L Chloride 108 H (98-107) mmol/L Carbon Dioxide 19 L (22-30) mmol/L Anion Gap 12 (10-20) BUN 12 (9-20) mg/dL Creatinine 0.7 L (0.8-1.5) mg/dL Est GFR ( Amer) > 60 Est GFR (Non-Af Amer) > 60 POC Glucose (mg/dL) 133 H 118 H (65-110) mg/dL Random Glucose 108 (75-110) mg/dL Calcium 7.8 L (8.6-10.4) mg/dl Magnesium 1.7 (1.6-2.3) mg/dL Total Bilirubin 7.3 H (0.2-1.3) mg/dL AST 146 H (17-59) U/L ALT 59 (21-72) U/L Alkaline Phosphatase 176 H (38-126) U/L Total Protein 6.9 (6.3-8.3) g/dL Albumin 2.5 L (3.5-5.0) g/dL Globulin 4.4 H (2.2-3.9) gm/dL Albumin/Globulin Ratio 0.6 L (1.0-2.1) Procalcitonin (0.19-0.49) NG/ML Fluid Source Fluid Appearance (CLEAR) Fluid WBC (0.0-300.0) /mm3 Fluid RBC (0.0-0.0) /mm3 Fluid Tot Cell Count (0-0) Fluid Neutrophils (0-0) % Fluid Lymphocytes (0-0) % Fld Monocyte/Macrophag (0-0) % Fluid Comment 03/07/18 03/07/18 03/06/18 Range/Units 05:17 00:04 17:56 WBC (4.8-10.8) K/uL RBC (4.40-5.90) Mil/uL Hgb (12.0-18.0) g/dL Hct (35.0-51.0) % MCV (80.0-94.0) fL MCH (27.0-31.0) pg MCHC (33.0-37.0) g/dL RDW (11.5-14.5) % Plt Count (130-400) K/uL MPV (7.2-11.7) fL Neut % (Auto) (50.0-75.0) % Lymph % (Auto) (20.0-40.0) % Petroleum % (Auto) (0.0-10.0) % Eos % (Auto) (0.0-4.0) % Baso % (Auto) (0.0-2.0) % Neut # (Auto) (1.8-7.0) K/uL Lymph # (Auto) (1.0-4.3) K/uL Petroleum # (Auto) (0.0-0.8) K/uL Eos # (Auto) (0.0-0.7) K/uL Baso # (Auto) (0.0-0.2) K/uL PT (9.7-12.2) SECONDS INR Puncture Site Rb pCO2 28 L (35-45) mm/Hg pO2 113 H (80-100) mm/Hg HCO3 20.7 L (21-28) mmol/L ABG pH 7.42 (7.35-7.45) ABG Total CO2 19.1 L (22-28) mmol/L ABG O2 Saturation 100.2 H (95-98) % ABG Base Excess -5.5 L (-2.0-3.0) mmol/L ABG Hemoglobin 8.2 L (11.7-17.4) g/dL ABG Carboxyhemoglobin 2.8 H (0.5-1.5) % POC ABG HHb (Measured) -0.2 L (0.0-5.0) % ABG Methemoglobin 1.0 (0.0-3.0) % Rei Test Na A-a O2 Difference 137.0 mm/Hg Respiratory Index 1.2 Hgb O2 Saturation 96.4 (95.0-98.0) % Vent Mode Prvc Mechanical Rate 16 FiO2 40.0 % Tidal Volume 450 PEEP 5 Sodium (132-148) mmol/L Potassium (3.6-5.2) mmol/L Chloride (98-107) mmol/L Carbon Dioxide (22-30) mmol/L Anion Gap (10-20) BUN (9-20) mg/dL Creatinine (0.8-1.5) mg/dL Est GFR ( Amer) Est GFR (Non-Af Amer) POC Glucose (mg/dL) 109 98 (65-110) mg/dL Random Glucose (75-110) mg/dL Calcium (8.6-10.4) mg/dl Magnesium (1.6-2.3) mg/dL Total Bilirubin (0.2-1.3) mg/dL AST (17-59) U/L ALT (21-72) U/L Alkaline Phosphatase (38-126) U/L Total Protein (6.3-8.3) g/dL Albumin (3.5-5.0) g/dL Globulin (2.2-3.9) gm/dL Albumin/Globulin Ratio (1.0-2.1) Procalcitonin (0.19-0.49) NG/ML Fluid Source Fluid Appearance (CLEAR) Fluid WBC (0.0-300.0) /mm3 Fluid RBC (0.0-0.0) /mm3 Fluid Tot Cell Count (0-0) Fluid Neutrophils (0-0) % Fluid Lymphocytes (0-0) % Fld Monocyte/Macrophag (0-0) % Fluid Comment 03/06/18 03/06/18 Range/Units 11:32 00:13 WBC (4.8-10.8) K/uL RBC (4.40-5.90) Mil/uL Hgb (12.0-18.0) g/dL Hct (35.0-51.0) % MCV (80.0-94.0) fL MCH (27.0-31.0) pg MCHC (33.0-37.0) g/dL RDW (11.5-14.5) % Plt Count (130-400) K/uL MPV (7.2-11.7) fL Neut % (Auto) (50.0-75.0) % Lymph % (Auto) (20.0-40.0) % Petroleum % (Auto) (0.0-10.0) % Eos % (Auto) (0.0-4.0) % Baso % (Auto) (0.0-2.0) % Neut # (Auto) (1.8-7.0) K/uL Lymph # (Auto) (1.0-4.3) K/uL Petroleum # (Auto) (0.0-0.8) K/uL Eos # (Auto) (0.0-0.7) K/uL Baso # (Auto) (0.0-0.2) K/uL PT (9.7-12.2) SECONDS INR Puncture Site pCO2 (35-45) mm/Hg pO2 (80-100) mm/Hg HCO3 (21-28) mmol/L ABG pH (7.35-7.45) ABG Total CO2 (22-28) mmol/L ABG O2 Saturation (95-98) % ABG Base Excess (-2.0-3.0) mmol/L ABG Hemoglobin (11.7-17.4) g/dL ABG Carboxyhemoglobin (0.5-1.5) % POC ABG HHb (Measured) (0.0-5.0) % ABG Methemoglobin (0.0-3.0) % Rei Test A-a O2 Difference mm/Hg Respiratory Index Hgb O2 Saturation (95.0-98.0) % Vent Mode Mechanical Rate FiO2 % Tidal Volume PEEP Sodium (132-148) mmol/L Potassium (3.6-5.2) mmol/L Chloride (98-107) mmol/L Carbon Dioxide (22-30) mmol/L Anion Gap (10-20) BUN (9-20) mg/dL Creatinine (0.8-1.5) mg/dL Est GFR ( Amer) Est GFR (Non-Af Amer) POC Glucose (mg/dL) 116 H 131 H (65-110) mg/dL Random Glucose (75-110) mg/dL Calcium (8.6-10.4) mg/dl Magnesium (1.6-2.3) mg/dL Total Bilirubin (0.2-1.3) mg/dL AST (17-59) U/L ALT (21-72) U/L Alkaline Phosphatase (38-126) U/L Total Protein (6.3-8.3) g/dL Albumin (3.5-5.0) g/dL Globulin (2.2-3.9) gm/dL Albumin/Globulin Ratio (1.0-2.1) Procalcitonin (0.19-0.49) NG/ML Fluid Source Fluid Appearance (CLEAR) Fluid WBC (0.0-300.0) /mm3 Fluid RBC (0.0-0.0) /mm3 Fluid Tot Cell Count (0-0) Fluid Neutrophils (0-0) % Fluid Lymphocytes (0-0) % Fld Monocyte/Macrophag (0-0) % Fluid Comment Laboratory Results - last 24 hr 03/06/18 03/06/18 03/06/18 00:13 11:32 17:56 WBC RBC Hgb Hct MCV MCH MCHC RDW Plt Count MPV Neut % (Auto) Lymph % (Auto) Petroleum % (Auto) Eos % (Auto) Baso % (Auto) Neut # (Auto) Lymph # (Auto) Petroleum # (Auto) Eos # (Auto) Baso # (Auto) PT INR Puncture Site pCO2 pO2 HCO3 ABG pH ABG Total CO2 ABG O2 Saturation ABG Base Excess ABG Hemoglobin ABG Carboxyhemoglobin POC ABG HHb (Measured) ABG Methemoglobin Rei Test A-a O2 Difference Respiratory Index Hgb O2 Saturation Vent Mode Mechanical Rate FiO2 Tidal Volume PEEP Sodium Potassium Chloride Carbon Dioxide Anion Gap BUN Creatinine Est GFR ( Amer) Est GFR (Non-Af Amer) POC Glucose (mg/dL) 131 H 116 H 98 Random Glucose Calcium Magnesium Total Bilirubin AST ALT Alkaline Phosphatase Total Protein Albumin Globulin Albumin/Globulin Ratio Procalcitonin Fluid Source Fluid Appearance Fluid WBC Fluid RBC Fluid Tot Cell Count Fluid Neutrophils Fluid Lymphocytes Fld Monocyte/Macrophag Fluid Comment 03/07/18 03/07/18 03/07/18 00:04 05:17 05:23 WBC RBC Hgb Hct MCV MCH MCHC RDW Plt Count MPV Neut % (Auto) Lymph % (Auto) Petroleum % (Auto) Eos % (Auto) Baso % (Auto) Neut # (Auto) Lymph # (Auto) Petroleum # (Auto) Eos # (Auto) Baso # (Auto) PT INR Puncture Site Rb pCO2 28 L pO2 113 H HCO3 20.7 L ABG pH 7.42 ABG Total CO2 19.1 L ABG O2 Saturation 100.2 H ABG Base Excess -5.5 L ABG Hemoglobin 8.2 L ABG Carboxyhemoglobin 2.8 H POC ABG HHb (Measured) -0.2 L ABG Methemoglobin 1.0 Rei Test Na A-a O2 Difference 137.0 Respiratory Index 1.2 Hgb O2 Saturation 96.4 Vent Mode Prvc Mechanical Rate 16 FiO2 40.0 Tidal Volume 450 PEEP 5 Sodium Potassium Chloride Carbon Dioxide Anion Gap BUN Creatinine Est GFR ( Amer) Est GFR (Non-Af Amer) POC Glucose (mg/dL) 109 118 H Random Glucose Calcium Magnesium Total Bilirubin AST ALT Alkaline Phosphatase Total Protein Albumin Globulin Albumin/Globulin Ratio Procalcitonin Fluid Source Fluid Appearance Fluid WBC Fluid RBC Fluid Tot Cell Count Fluid Neutrophils Fluid Lymphocytes Fld Monocyte/Macrophag Fluid Comment 03/07/18 03/07/18 03/07/18 06:27 06:30 06:32 WBC RBC Hgb Hct MCV MCH MCHC RDW Plt Count MPV Neut % (Auto) Lymph % (Auto) Petroleum % (Auto) Eos % (Auto) Baso % (Auto) Neut # (Auto) Lymph # (Auto) Petroleum # (Auto) Eos # (Auto) Baso # (Auto) PT 20.6 H INR 1.9 Puncture Site pCO2 pO2 HCO3 ABG pH ABG Total CO2 ABG O2 Saturation ABG Base Excess ABG Hemoglobin ABG Carboxyhemoglobin POC ABG HHb (Measured) ABG Methemoglobin Rei Test A-a O2 Difference Respiratory Index Hgb O2 Saturation Vent Mode Mechanical Rate FiO2 Tidal Volume PEEP Sodium 136 Potassium 3.1 L Chloride 108 H Carbon Dioxide 19 L Anion Gap 12 BUN 12 Creatinine 0.7 L Est GFR ( Amer) > 60 Est GFR (Non-Af Amer) > 60 POC Glucose (mg/dL) 133 H Random Glucose 108 Calcium 7.8 L Magnesium 1.7 Total Bilirubin 7.3 H AST 146 H ALT 59 Alkaline Phosphatase 176 H Total Protein 6.9 Albumin 2.5 L Globulin 4.4 H Albumin/Globulin Ratio 0.6 L Procalcitonin Fluid Source Fluid Appearance Fluid WBC Fluid RBC Fluid Tot Cell Count Fluid Neutrophils Fluid Lymphocytes Fld Monocyte/Macrophag Fluid Comment 03/07/18 03/07/18 03/07/18 06:32 08:13 12:18 WBC 6.3 RBC 2.34 L Hgb 8.0 L Hct 23.8 L MCV 101.4 H MCH 34.2 H MCHC 33.8 RDW 20.6 H Plt Count 103 L MPV 10.7 Neut % (Auto) 63.9 Lymph % (Auto) 23.8 Petroleum % (Auto) 8.6 Eos % (Auto) 2.3 Baso % (Auto) 1.4 Neut # (Auto) 4.1 Lymph # (Auto) 1.5 Petroleum # (Auto) 0.5 Eos # (Auto) 0.1 Baso # (Auto) 0.1 PT INR Puncture Site pCO2 pO2 HCO3 ABG pH ABG Total CO2 ABG O2 Saturation ABG Base Excess ABG Hemoglobin ABG Carboxyhemoglobin POC ABG HHb (Measured) ABG Methemoglobin Rei Test A-a O2 Difference Respiratory Index Hgb O2 Saturation Vent Mode Mechanical Rate FiO2 Tidal Volume PEEP Sodium Potassium Chloride Carbon Dioxide Anion Gap BUN Creatinine Est GFR ( Amer) Est GFR (Non-Af Amer) POC Glucose (mg/dL) 108 Random Glucose Calcium Magnesium Total Bilirubin AST ALT Alkaline Phosphatase Total Protein Albumin Globulin Albumin/Globulin Ratio Procalcitonin 0.43 Fluid Source Fluid Appearance Fluid WBC Fluid RBC Fluid Tot Cell Count Fluid Neutrophils Fluid Lymphocytes Fld Monocyte/Macrophag Fluid Comment 03/07/18 03/07/18 15:23 18:08 WBC RBC Hgb Hct MCV MCH MCHC RDW Plt Count MPV Neut % (Auto) Lymph % (Auto) Petroleum % (Auto) Eos % (Auto) Baso % (Auto) Neut # (Auto) Lymph # (Auto) Petroleum # (Auto) Eos # (Auto) Baso # (Auto) PT INR Puncture Site pCO2 pO2 HCO3 ABG pH ABG Total CO2 ABG O2 Saturation ABG Base Excess ABG Hemoglobin ABG Carboxyhemoglobin POC ABG HHb (Measured) ABG Methemoglobin Rei Test A-a O2 Difference Respiratory Index Hgb O2 Saturation Vent Mode Mechanical Rate FiO2 Tidal Volume PEEP Sodium Potassium Chloride Carbon Dioxide Anion Gap BUN Creatinine Est GFR ( Amer) Est GFR (Non-Af Amer) POC Glucose (mg/dL) 99 Random Glucose Calcium Magnesium Total Bilirubin AST ALT Alkaline Phosphatase Total Protein Albumin Globulin Albumin/Globulin Ratio Procalcitonin Fluid Source Pleural/thoracentesi Fluid Appearance Cloudy Fluid WBC 2078.0 H Fluid RBC 2708.0 H Fluid Tot Cell Count 100 H Fluid Neutrophils 23.0 H Fluid Lymphocytes 75.0 H Fld Monocyte/Macrophag 2 H Fluid Comment Attending/Attestation - Attestation I have personally seen and examined this patient.: Yes I have fully participated in the care of the patient.: Yes I have reviewed all pertinent clinical information: Yes Notes (Text): 03/07/18 19:01 Patient seen and examined in the intensive care unit. patient tolerated CPAP for many hours Status post thoracentesis and 1 L of straw-colored fluid removed Continue antibiotics Continue weaning Sedation vacation
[2018-03-07] MEDS ORDERED: Potassium Chloride 20 mEq ER Tab PO ONE (08:08)
[2018-03-07] MEDS ORDERED: Potassium Ch 20mEq in D5W 1,000 ML IV SCH (08:15)
[2018-03-07] MEDS ORDERED: Phytonadione 10 mg/ml Inj (Adult) IV STA (09:42)
[2018-03-07] MEDS ORDERED: Phytonadione 10 MG in Sodium Chloride 0.9% 50 ML IV ONE (10:00)
[2018-03-07] MEDS ORDERED: Potassium Chloride 20 mEq ER Tab PO SCH (10:00)
[2018-03-07] MEDS: Lactobacillus Acidophilus 500 MU Cap PO SCH ×2 (10:15→18:21)
[2018-03-07] MEDS: Multiple Vitamins Tab PO SCH (10:17)
--- NOTE | 2018-03-07 10:41 | CP.PCM.PN ---
Subjective - Date & Time of Evaluation Date of Evaluation: 03/07/18 Time of Evaluation: 10:39 - Subjective Subjective: seen and examined intubated sedated Objective - Vital Signs/Intake and Output Vital Signs (last 24 hours): Temp Pulse Resp BP Pulse Ox 97.7 F 74 22 104/59 L 91 L 03/07/18 08:00 03/07/18 09:16 03/07/18 09:16 03/07/18 10:15 03/07/18 09:16 Intake and Output: 03/07/18 03/07/18 06:59 18:59 Intake Total 771.8 387.8 Output Total 600 100 Balance 171.8 287.8 - Medications Medications: Current Medications Albuterol/Ipratropium (Duoneb 3 Mg/0.5 Mg (3 Ml) Ud) 3 ml INH RQ6 [facility] Last Admin: 03/07/18 08:29 Dose: 3 ml Dextrose (Glutose 15) 0 gm PO ONCE PRN; Protocol PRN Reason: Hypoglycemia Protocol Folic Acid (Folic Acid) 1 mg PO DAILY [facility] Last Admin: 03/07/18 10:15 Dose: 1 mg Furosemide (Lasix) 20 mg PO DAILY [facility] Last Admin: 03/07/18 10:15 Dose: 20 mg Glucagon (Glucagen Diagnostic Kit) 1 mg IM STAT PRN; Protocol PRN Reason: Hypoglycemia Protocol Guaifenesin (Robitussin) 100 mg PO Q4H PRN PRN Reason: Cough Dexmedetomidine HCl 200 mcg/ (Sodium Chloride) 50 mls @ 3.79 mls/hr IV TITR PRN; Protocol PRN Reason: Agitation Last Admin: 03/07/18 00:13 Dose: 0.2 mcg/kg/hr, 3.8 mls/hr Vancomycin/Sodium Chloride (Vancomycin 1 Gm/Ns 200 Ml) 1 gm in 200 mls @ 133 mls/hr IVPB Q8H [facility]; Protocol Stop: 03/08/18 19:01 Last Admin: 03/04/18 11:35 Dose: Not Given Piperacillin Sod/Tazobactam Sod (Zosyn 3.375 Gm Iv Premix) 3.375 gm in 50 mls @ 100 mls/hr IVPB Q6H [facility]; Protocol Last Admin: 03/07/18 06:01 Dose: 100 mls/hr Potassium Chloride (Potassium Chloride 20 Meq/100 Ml) 20 meq in 100 mls @ 50 mls/hr IVPB Q2H [facility] Stop: 03/07/18 12:29 Last Admin: 03/07/18 10:17 Dose: 50 mls/hr Lactobacillus Acidophilus (Bacid Acidophilus) 1 cap PO BID [facility] Last Admin: 03/07/18 10:15 Dose: 1 cap Lorazepam (Ativan) 1 mg IVP Q6H PRN PRN Reason: Agitation Last Admin: 03/04/18 16:29 Dose: 1 mg Multivitamins (Hexavitamin) 1 tab PO DAILY [facility] Last Admin: 03/07/18 10:17 Dose: 1 tab Pantoprazole Sodium (Protonix Susp) 40 mg PO 0600 [facility] Last Admin: 03/07/18 06:03 Dose: 40 mg Spironolactone (Aldactone) 25 mg PO DAILY [facility] Last Admin: 03/07/18 10:15 Dose: 25 mg Thiamine HCl (Vitamin B1 Tab) 100 mg PO BID [facility] Last Admin: 03/07/18 10:17 Dose: 100 mg - Labs Labs: 03/07/18 06:32 03/07/18 06:30 PT 20.6 SECONDS (9.7-12.2) H 03/07/18 06:32 INR 1.9 03/07/18 06:32 APTT 37 SECONDS (21-34) H 03/05/18 05:51 - Constitutional Appears: No Acute Distress, Chronically Ill (intubated sedated) - Head Exam Head Exam: NORMAL INSPECTION, NORMOCEPHALIC - Eye Exam Eye Exam: Normal appearance, PERRL - ENT Exam ENT Exam: Mucous Membranes Dry (ET tube) - Neck Exam Neck Exam: Full ROM, Normal Inspection - Respiratory Exam Respiratory Exam: Decreased Breath Sounds (b/l breath sounds) - GI/Abdominal Exam GI & Abdominal Exam: Distended, Soft, Diminished Bowel Sounds - Extremities Exam Extremities Exam: Normal Inspection - Neurological Exam Neurological Exam: absent: Alert, Awake - Skin Skin Exam: Dry, Intact Assessment and Plan (1) Alcoholic cirrhosis Status: Acute (2) Electrolyte imbalance Status: Acute (3) Respiratory failure Status: Acute (4) Sepsis Status: Acute - Assessment and Plan (Free Text) Assessment: supplement potassium and magnesium add neutra phos
[2018-03-07] MEDS: Potassium & Sodium Phosphate PO SCH ×2 (10:45→18:21)
--- NOTE | 2018-03-07 11:14 | RAD ---
Date of service: 03/07/2018 HISTORY: pleural effusion COMPARISON: Multiple serial examinations preceding the most recent study: March 06, 2018. FINDINGS: LUNGS: Stable multifocal infiltrates. PLEURA: Stable small bilateral pleural effusions. CARDIOVASCULAR: No atherosclerotic calcification present Normal. OSSEOUS STRUCTURES: No significant abnormalities. VISUALIZED UPPER ABDOMEN: Normal. OTHER FINDINGS: Stable and satisfactory position of endotracheal tube and nasogastric tube. IMPRESSION: Stable bilateral infiltrates right greater than left. Stable position of support apparatus.
--- NOTE | 2018-03-07 12:43 | CP.PCM.PN ---
Subjective - Date & Time of Evaluation Date of Evaluation: 03/07/18 Time of Evaluation: 09:00 - Subjective Subjective: events noted rx in progress Objective - Vital Signs/Intake and Output Vital Signs (last 24 hours): Temp Pulse Resp BP Pulse Ox 97.7 F 94 H 34 H 140/83 92 L 03/07/18 08:00 03/07/18 11:16 03/07/18 11:16 03/07/18 11:16 03/07/18 11:16 Intake and Output: 03/07/18 03/07/18 06:59 18:59 Intake Total 771.8 721.7 Output Total 600 200 Balance 171.8 521.7 - Medications Medications: Current Medications Albuterol/Ipratropium (Duoneb 3 Mg/0.5 Mg (3 Ml) Ud) 3 ml INH RQ6 [facility] Last Admin: 03/07/18 08:29 Dose: 3 ml Dextrose (Glutose 15) 0 gm PO ONCE PRN; Protocol PRN Reason: Hypoglycemia Protocol Folic Acid (Folic Acid) 1 mg PO DAILY [facility] Last Admin: 03/07/18 10:15 Dose: 1 mg Furosemide (Lasix) 20 mg PO DAILY [facility] Last Admin: 03/07/18 10:15 Dose: 20 mg Glucagon (Glucagen Diagnostic Kit) 1 mg IM STAT PRN; Protocol PRN Reason: Hypoglycemia Protocol Guaifenesin (Robitussin) 100 mg PO Q4H PRN PRN Reason: Cough Dexmedetomidine HCl 200 mcg/ (Sodium Chloride) 50 mls @ 3.79 mls/hr IV TITR PRN; Protocol PRN Reason: Agitation Last Admin: 03/07/18 00:13 Dose: 0.2 mcg/kg/hr, 3.8 mls/hr Vancomycin/Sodium Chloride (Vancomycin 1 Gm/Ns 200 Ml) 1 gm in 200 mls @ 133 mls/hr IVPB Q8H [facility]; Protocol Stop: 03/08/18 19:01 Last Admin: 03/04/18 11:35 Dose: Not Given Piperacillin Sod/Tazobactam Sod (Zosyn 3.375 Gm Iv Premix) 3.375 gm in 50 mls @ 100 mls/hr IVPB Q6H [facility]; Protocol Last Admin: 03/07/18 12:27 Dose: 100 mls/hr Lactobacillus Acidophilus (Bacid Acidophilus) 1 cap PO BID [facility] Last Admin: 03/07/18 10:15 Dose: 1 cap Lorazepam (Ativan) 1 mg IVP Q6H PRN PRN Reason: Agitation Last Admin: 03/04/18 16:29 Dose: 1 mg Multivitamins (Hexavitamin) 1 tab PO DAILY [facility] Last Admin: 03/07/18 10:17 Dose: 1 tab Pantoprazole Sodium (Protonix Susp) 40 mg PO 0600 [facility] Last Admin: 03/07/18 06:03 Dose: 40 mg Potassium Phos/Sodium Phos (Neutra-Phos) 1 pkt PO BID [facility] Last Admin: 03/07/18 10:45 Dose: 1 pkt Spironolactone (Aldactone) 25 mg PO DAILY [facility] Last Admin: 03/07/18 10:15 Dose: 25 mg Thiamine HCl (Vitamin B1 Tab) 100 mg PO BID [facility] Last Admin: 03/07/18 10:17 Dose: 100 mg - Labs Labs: 03/07/18 06:32 03/07/18 06:30 PT 20.6 SECONDS (9.7-12.2) H 03/07/18 06:32 INR 1.9 03/07/18 06:32 APTT 37 SECONDS (21-34) H 03/05/18 05:51 - Constitutional Appears: Non-toxic, Confused, Chronically Ill - Head Exam Head Exam: NORMOCEPHALIC - Eye Exam Eye Exam: absent: Scleral icterus - ENT Exam ENT Exam: Mucous Membranes Dry - Neck Exam Neck Exam: absent: Lymphadenopathy - Respiratory Exam Respiratory Exam: Decreased Breath Sounds - Cardiovascular Exam Cardiovascular Exam: REGULAR RHYTHM - GI/Abdominal Exam GI & Abdominal Exam: Distended, Soft - Rectal Exam Rectal Exam: Deferred - Exam Exam: NORMAL INSPECTION - Extremities Exam Extremities Exam: absent: Pedal Edema - Back Exam Back Exam: absent: CVA tenderness (L), CVA tenderness (R) - Neurological Exam Neurological Exam: Altered Assessment and Plan (1) Pneumonia Status: Acute (2) Sepsis Status: Acute (3) Subdural hemorrhage Status: Acute (4) Alcohol abuse with intoxication Status: Acute (5) Chronic venous stasis dermatitis Status: Acute
--- NOTE | 2018-03-07 14:16 | VASCLAB ---
Date of service: 03/06/2018 PROCEDURE: Left Upper Extremity Venous Duplex Exam HISTORY: swelling r/o dvt PRIORS: None. TECHNIQUE: Left upper extremity, internal jugular, subclavian, axillary, brachial, ulnar, radial, basilic and upper cephalic veins were evaluated. Flow was assessed with color Doppler, compressibility, assessment of phasic flow and augmentation response. Report prepared by KORY Olvera FINDINGS: LEFT: 1. Internal Jugular: 1.1. Compressibility - Fully compressible: Thrombus - None : Flow - Phasic: Augmentation -Normal: Reflux - None. 2. Subclavian: 2.1. Compressibility - Fully compressible: Thrombus - None : Flow - Phasic: Augmentation -Normal: Reflux - None. 3. Axillary: 3.1. Compressibility - Fully compressible: Thrombus - None : Flow - Phasic: Augmentation -Normal: Reflux - None. 4. Brachial: 4.1. Compressibility - Fully compressible: Thrombus - None: Flow - Phasic: Augmentation -Normal: Reflux - None. 5. Ulnar: 5.1. Compressibility - Fully compressible: Thrombus - None: Flow - Phasic: Augmentation -Normal: Reflux - None. 6. Radial: 6.1. Compressibility - Fully compressible: Thrombus - None: Flow - Phasic: Augmentation - Normal: Reflux - None. 7. Cephalic: 7.1. Compressibility - Fully compressible: Thrombus - None: Flow - Phasic: Augmentation -Normal: Reflux - None. 8. Basilic: 8.1. Compressibility - : Thrombus - : Flow - : Augmentation -: Reflux - . OTHER FINDINGS: Unable to image the left basilic vein. IMPRESSION: Left: No evidence of vein thrombosis of the left upper extremity with excellent venous flow. Normal valve function noted of the left side. Normal venous flow noted in the right internal jugular and right subclavian veins.
--- NOTE | 2018-03-07 14:47 | PCM.PROC ---
Procedures Attestation:: I certify that I have explained the specified Operation(s) or Procedure(s), risks, benefits and reasonable alternatives to the Patient and/or other person responsible. The opportunity was given to ask questions and all questions answered - Chest Tube Chest Tube Location: Posterior Chest Right Chest Tube Procedure: Chlorhexidine Tube Sutured to Skin: No Anesthesia: Lidocaine 1% Volume Anesthetic (mls): 5 Post Procedure: sterile dressing applied Tube Drainage: fluid Amount of Initial Drainage: 1 (L) Post Procedure CXR?: Yes Patient Tolerated Procedure: Yes
--- NOTE | 2018-03-07 15:09 | US ---
Date of service: 03/07/2018 PROCEDURE: Ultrasound pleural spaces HISTORY: thoracentesis by senior marketing analyst COMPARISON: None TECHNIQUE: Standard protocol for this study/examination. FINDINGS: Bilateral pleural effusions identified right larger than left IMPRESSION: The window to the pocket of fluid in the right pleural space was marked for the senior marketing analyst prior to thoracentesis
--- NOTE | 2018-03-07 15:13 | RAD ---
Date of service: 03/07/2018 HISTORY: s/p thoracentesis COMPARISON: March 07, 2018 07:08. FINDINGS: LUNGS: Improved aeration of the right lung following thoracentesis. Stable consolidative changes left hemithorax. PLEURA: Trace right pleural effusion which is diminished in the interim. Stable left pleural effusion. CARDIOVASCULAR: No atherosclerotic calcification present No change PICC line again identified the tip is in the expected location of the left axillary vein OSSEOUS STRUCTURES: No significant abnormalities. VISUALIZED UPPER ABDOMEN: Normal. OTHER FINDINGS: Stable position of support apparatus including endotracheal tube and nasogastric tube. IMPRESSION: Status post right thoracentesis with decrease in right pleural effusion and commensurate re-expansion right lung. No pneumothorax.
[2018-03-07 15:26] LABS: BODY FLUID TYPE PLEURAL/THORACENTESI
--- NOTE | 2018-03-07 15:52 | CP.PCM.PN ---
Subjective - Date & Time of Evaluation Date of Evaluation: 03/07/18 Time of Evaluation: 15:00 - Subjective Subjective: Medical Attending Note: Patient seen and examined at bedside. Patient is on low dose Precedex. Patient underwent thoracentesis today; awaiting fluid studies. Patient is on CPAP trial today. Unable to ROS since patient is intubated. Objective - Vital Signs/Intake and Output Vital Signs (last 24 hours): Temp Pulse Resp BP Pulse Ox 98.5 F 68 20 94/53 L 100 03/07/18 12:00 03/07/18 15:31 03/07/18 15:31 03/07/18 15:31 03/07/18 15:31 Intake and Output: 03/07/18 03/07/18 06:59 18:59 Intake Total 771.8 1497.3 Output Total 600 600 Balance 171.8 897.3 - Medications Medications: Current Medications Albuterol/Ipratropium (Duoneb 3 Mg/0.5 Mg (3 Ml) Ud) 3 ml INH RQ6 A[facility]LE[facility] Last Admin: 03/07/18 14:02 Dose: Not Given Dextrose (Glutose 15) 0 gm PO ONCE PRN; Protocol PRN Reason: Hypoglycemia Protocol Docusate Sodium (Colace) 100 mg PO DAILY PRN PRN Reason: Constipation Folic Acid (Folic Acid) 1 mg PO DAILY [facility] Last Admin: 03/07/18 10:15 Dose: 1 mg Furosemide (Lasix) 20 mg PO DAILY [facility] Last Admin: 03/07/18 10:15 Dose: 20 mg Glucagon (Glucagen Diagnostic Kit) 1 mg IM STAT PRN; Protocol PRN Reason: Hypoglycemia Protocol Guaifenesin (Robitussin) 100 mg PO Q4H PRN PRN Reason: Cough Dexmedetomidine HCl 200 mcg/ (Sodium Chloride) 50 mls @ 3.79 mls/hr IV TITR PRN; Protocol PRN Reason: Agitation Last Admin: 03/07/18 13:40 Dose: 0.2 mcg/kg/hr, 3.79 mls/hr Piperacillin Sod/Tazobactam Sod (Zosyn 3.375 Gm Iv Premix) 3.375 gm in 50 mls @ 100 mls/hr IVPB Q6H ASHLEIGH; Protocol Last Admin: 03/07/18 12:27 Dose: 100 mls/hr Lactobacillus Acidophilus (Bacid Acidophilus) 1 cap PO BID [facility] Last Admin: 03/07/18 10:15 Dose: 1 cap Lorazepam (Ativan) 1 mg IVP Q6H PRN PRN Reason: Agitation Last Admin: 03/07/18 14:29 Dose: 1 mg Multivitamins (Hexavitamin) 1 tab PO DAILY [facility] Last Admin: 03/07/18 10:17 Dose: 1 tab Pantoprazole Sodium (Protonix Susp) 40 mg PO 0600 [facility] Last Admin: 03/07/18 06:03 Dose: 40 mg Potassium Phos/Sodium Phos (Neutra-Phos) 1 pkt PO BID [facility] Last Admin: 03/07/18 10:45 Dose: 1 pkt Spironolactone (Aldactone) 25 mg PO DAILY [facility] Last Admin: 03/07/18 10:15 Dose: 25 mg Thiamine HCl (Vitamin B1 Tab) 100 mg PO BID [facility] Last Admin: 03/07/18 10:17 Dose: 100 mg - Labs Labs: 03/07/18 06:32 03/07/18 06:30 PT 20.6 SECONDS (9.7-12.2) H 03/07/18 06:32 INR 1.9 03/07/18 06:32 APTT 37 SECONDS (21-34) H 03/05/18 05:51 - Constitutional Appears: Non-toxic, No Acute Distress - Head Exam Head Exam: NORMAL INSPECTION - Eye Exam Eye Exam: EOMI - ENT Exam ENT Exam: Mucous Membranes Dry - Respiratory Exam Respiratory Exam: Decreased Breath Sounds, Rales, Rhonchi, NORMAL BREATHING PATTERN - GI/Abdominal Exam GI & Abdominal Exam: Soft, Normal Bowel Sounds. absent: Distended, Guarding, Rigid, Tenderness, Rebound - Extremities Exam Extremities Exam: Pedal Edema (trace) Additional comments: chronic venous stasis changes scds b/l - Neurological Exam Neurological Exam: Alert, Awake - Skin Skin Exam: Dry, Warm Assessment and Plan (1) Sepsis Status: Acute (2) Subdural hemorrhage Status: Acute (3) Electrolyte imbalance Status: Acute (4) Pneumonia Status: Acute (5) Alcohol abuse Status: Acute (6) Chronic venous stasis dermatitis Status: Acute (7) Urinary tract infection Status: Acute (8) Alcoholic cirrhosis Status: Acute (9) Prophylactic measure Status: Acute Attending/Attestation - Attestation I have personally seen and examined this patient.: Yes I have fully participated in the care of the patient.: Yes I have reviewed all pertinent clinical information, including history, physical exam and plan: Yes Notes (Text): Assessment/Plan 1) Acute Respiratory Failure RLL Infiltrate/Bilateral Pleural Effusions (Large on Right and Moderate on Left) Urinary Tract Infection Assessment/Plan * CT Chest 02/28/18: large right and moderate left pleural effusions and associated consolidations, lingular infiltrate, probable bulla in the right upper lobe however small loculated penumothorax is not excluded, severe diffuse hepatic steatotosis, question hepatic mass versus more focal fatty infiltration involving a large region of the medial upper liver, small perhepatic and persplenic ascites. * CT Chest (03/03/18): stable large bilateral pleural effusions with worsening bilateral infiltrates with areas of consolidations in the upper lung zones as well as compressive atelectasis at the lung bases * s/p intubation 03/03/18 * Chest xray (03/07/18): stable bilateral infiltrates right greater than left. Stable position of support apparatus. * s/p thoracentesis 03/07/18 (right side) * f/u fluid studies * Chest xray (03/07/18): status post right thoracentesis with decrease in right pleural effusion and commensurate re-expansion right lung. no pneumothorax. * Vancomycin 1 gm IV Q8H (Start 03/03/18): elevated trough 28.3; hold dose; f/u random vancomycin level * sputum culture: no growth * Vancomycin trough: 15-20 * may d/c if not MRSA * Zosyn 3.375 gm IV Q6H (02/27/18-present) * Blood Culture 02/27/18: negative to date * Urine Culture 02/27/18: Enterococcus Faecalis sensitive to Vancomycin * Urine culture 03/03/18: no growth * Sputum culture 03/03/18: normal * Myocplasma IGM: negative * Legionella: negative * HIV nonreactive * ProcalcitoninL 0.43 2). Electrolyte imbalances Assessment/Plan * Repleted 3). Hypothermia * Tmax: 97.2 * on admission as low as 84F 4). Subdural Hematoma * Neurology (Dr. Loving) on board * Neurosurgery (Dr. Schmitt) on board * CT Head 02/28/18 x 2: small left sided subdural hematoma which has increased in size slightly, small right sided hygroma, mild mass effect with compression of both cerebral hemispheres, mild chronic periventricular white matter ischemic changes, mild generalized volume loss * CT Head and Neck 02/27/18: tiny calcified plaque left carotid bifurcation, NO evidence of large aneurysm/vascular malformation * Seen by Neurosurgery Dr. Coleman 02/18/18: no surgical intervention warranted and will need repeat CT Head in 1 week * CT head (03/02/18): previously noted small left sided acute subdural hematoma has continues to undergo evoluation and now appeats hyodense small but very slightly larger right sided subudral hygroma or chronic subdural hematoma. Extra axial collections continue to exert nerly symmetic mass effect on both cerebral hemispheres with compressions of overlying sulci and ventricles * CT (03/03/18): b/l subdural hematoma appear slightly heterogenous but mostly hypodense consistent with continued evolution * Patient unable to get MRI; patient is intubated * Per neurosurgery, not candidate for drainage; repeat CT head in one week * Repeat CT head 03/13 * NOT acandidate for basically elective drainage SDHs (03/06/18) 5). Alcohol Abuse Cirrhosis * Upon exam 02/28/18: evidence of tremors of the upper body, aware of month and year and president * Patient is on Precedex * d/c ativan taper to prevent oversedation * Abdominal US: nodular hepatic contour consistent with cirrhosis. Echogenic liver may be seen in setting of hepatic parenchymal disease of fatty infiltation, small ascites, gallstones. * Monitor * Ammonia on admission normal * Folic acid 1mg PO daily * Thiamine 100mg PO BID * MVI 1 tab PO daily 6). Anemia Likely Secondary to Hx Alcohol Abuse * Monitor HgB/Hct * Vitamin B12 normal at 856 * Folate normal at 3.3 * Iron Studies: Total Iron at 117, % Saturation 55, Ferritin 689, TIBC low at 2 12 * Patient is Cirrhotic per Ab US 7). Thrombocytopenia Likely Secondary to Hx Alcohol Abuse * Improving * Has not received anticoagulation secondary to subdural hematoma * patient is cirrhotic per US 8). Elevated LFTs Likely Secondary to Hx Alcohol Abuse * Abdominal U/S 02/27/18: nodular hepatic contour consistent with cirrhosis, echogenic liver may be seen in the setting of hepatic parynchymal disease or fatty infiltration, small ascites, gallstones * Hepatitis Panel 02/27/18: negative * HIV 4th Generation 02/27/18: negative 9). Hyponatremia (resolved) * nephrology (Dr. Taylor) on consult-->help appreciated * Agree with IV NS, correction of electrolyte abnormalites * Advanced GT feeds as tolerated 10). Elevated CPK * normal at 133 11). Prophylaxis * NO anticoagulation considering the Subdural Hematoma, Anemia, Thrombocytopenia * SCDS b/l * NO PPI/H2 Antagonists indicated at this time * Venous dopplers negative Disposition: Vent management per ICU; patient was intubated on 03/03 by ICU for worsening breathe. s/p thoracentesis/ f/u fluid studies. procalcitonin is normal. patient is not neurosurgical candidate f/u CT head (03/14)
[2018-03-07 15:59] LABS: BF GROSS APPEARANCE CLOUDY (CLEAR)
[2018-03-07 16:00] LABS: BODY FLUID MONO/MACROPHAGE 2 % (0-0); BODY FLUID TOTAL COUNT 100 (0-0)
[2018-03-08] MEDS: Piperacill/Tazo 3.375gm in Dex 3.375 GM/50 ML BAG IVPB SCH ×4 (00:30→17:51)
[2018-03-08] MEDS: Albuterol-Ipratrop 3 mg / 0.5 (3 ml) UD INH SCH ×4 (01:34→20:22)
[2018-03-08 05:34] LABS: ABG ALLEN TEST POS; ARTERIAL BLOOD GAS HCO3 22.4 mmol/L (21-28); ARTERIAL BLOOD GAS HEMOGLOBIN 8.2 g/dL (11.7-17.4); ARTERIAL BLOOD GAS O2 SAT 100.4 % (95-98); ARTERIAL BLOOD GAS PCO2 29 mm/Hg (35-45); ARTERIAL BLOOD GAS PH 7.45 (7.35-7.45); ARTERIAL BLOOD GAS PO2 135 mm/Hg (80-100); ARTERIAL BLOOD GAS TCO2 21.1 mmol/L (22-28)
[2018-03-08 06:30] LABS: BASO # 0.1 K/uL (0.0-0.2); BASO % 0.8 % (0.0-2.0); EOS # 0.1 K/uL (0.0-0.7); EOS % 1.6 % (0.0-4.0); LYMPH # 1.3 K/uL (1.0-4.3); LYMPH % 19.5 % (20.0-40.0); MEAN CELL VOLUME 102.1 fL (80.0-94.0); MEAN CORPUSCULAR HEMOGLOBIN 34.4 pg (27.0-31.0); MEAN CORPUSCULAR HGB CONC 33.7 g/dL (33.0-37.0); MEAN PLATELET VOLUME 10.8 fL (7.2-11.7); MONO # 0.6 K/uL (0.0-0.8); NEUT # 4.7 K/uL (1.8-7.0); NEUT % 69.1 % (50.0-75.0); NRBC % 0.1 % (0.0-2.0); RBC 2.31 Mil/uL (4.40-5.90); RED CELL DISTRIBUTION WIDTH 20.6 % (11.5-14.5); WHITE BLOOD COUNT 6.8 K/uL (4.8-10.8)
[2018-03-08 06:38] LABS: ALB/GLOB RATIO 0.6 (1.0-2.1); ALBUMIN 2.5 g/dL (3.5-5.0); ALT/SGPT 49 U/L (21-72); AST/SGOT 121 U/L (17-59); BLOOD UREA NITROGEN 11 mg/dL (9-20); GFR NON-AFRICAN AMERICAN > 60
[2018-03-08] MEDS: Pantoprazole 40 mg Susp UD PO SCH (06:41)
[2018-03-08] MEDS: Dexmedetomidine Hydrochloride 200 MCG in Sodium Chloride 0.9% 48 ML IV PRN ×2 (07:00→23:17)
--- NOTE | 2018-03-08 07:46 | CP.CCUPN ---
<Rogers Morrow - Last Filed: 03/08/18 17:49> CCU Subjective - Physician Review Subjective (Free Text): 03/08/18 11:25 PGY-1 Critical Care Progress Note for Dr. Shields Patient seen and examined at bedside this AM s/p R thoracentesis draining 1 L fluid . No acute overnight events reported. On low dose precedex 0.1 mcg/kg/hr. Patient remains on CPAP trial, PSV decreased to 8, PEEP 5. OGT in place infusing Jevity @ 40cc/hr. Critical Care Time Spent (in minutes): 35 CCU Objective - Vital Signs / Intake & Output Vital Signs (Last 4 hours): Vital Signs Temp Pulse Resp BP Pulse Ox 03/08/18 06:33 67 19 114/65 100 03/08/18 04:33 62 16 118/62 100 03/08/18 04:00 98.9 F 100 03/08/18 03:55 63 16 107/58 L 100 Intake and Output (Last 8hrs): Intake & Output 03/07/18 03/08/18 03/08/18 22:59 06:59 14:59 Intake Total 489.2 399.4 234.3 Output Total 1110 650 0 Balance -620.8 -250.6 234.3 Weight 149 lb 14.629 oz Intake: IV 0 41.4 38.6 Intake, IV Amount 69.2 38.0 55.7 LA MIDLINE 11.4 38.0 5.7 Left Forearm 57.8 50 Tube Feeding 320 320 40 Other 100 100 Output: Urine 1110 650 0 Condom 1110 650 0 Other: # Bowel Movements 0 0 0 - Physical Exam Head: Positive for: Atraumatic, Normocephalic Pupils: Positive for: PERRL Extroacular Muscles: Positive for: EOMI Conjunctiva: Positive for: Normal, Icteric (bilaterally ) Mouth: Positive for: Moist Mucous Membranes Neck: Positive for: Normal Range of Motion Respiratory/Chest: Positive for: Other (intubated ). Negative for: Respiratory Distress, Accessory Muscle Use Cardiovascular: Positive for: Regular Rate and Rhythm, Normal S1, S2. Negative for: Murmurs Abdomen: Positive for: Normal Bowel Sounds. Negative for: Tenderness, Distention Back: Positive for: Normal Inspection Lower Extremity: Positive for: Edema (bilaterally ), Neurovascularly Intact, Capillary Refill < 2 s. Negative for: Tenderness Neurological: Positive for: Other (more alert today to tactile, verbal stimuli) Skin: Positive for: Warm, Dry Psychiatric: Positive for: Alert - Medications Active Medications: Active Medications Generic Name Dose Route Start Last Admin Trade Name Freq PRN Reason Stop Dose Admin Albuterol/Ipratropium 3 ml 03/03/18 20:00 03/08/18 01:34 Duoneb 3 Mg/0.5 Mg (3 Ml) Ud INH 3 ml RQ6 ASHLEIGH Administration Dextrose 0 gm 02/28/18 07:44 Glutose 15 PO ONCE PRN Hypoglycemia Protocol Protocol Docusate Sodium 100 mg 03/07/18 18:00 03/07/18 18:21 Colace PO 100 mg DAILY PRN Administration Constipation Folic Acid 1 mg 03/03/18 10:00 03/07/18 10:15 Folic Acid PO 1 mg DAILY ASHLEIGH Administration Furosemide 20 mg 03/06/18 10:00 03/07/18 10:15 Lasix PO 20 mg DAILY ASHLEIGH Administration Glucagon 1 mg 02/28/18 07:44 Glucagen Diagnostic Kit IM STAT PRN Hypoglycemia Protocol Protocol Guaifenesin 100 mg 03/03/18 18:27 Robitussin PO Q4H PRN Cough Dexmedetomidine HCl 200 mcg/ 50 mls @ 3.79 mls/hr 03/01/18 16:36 03/08/18 07:00 Sodium Chloride IV 0.3 mcg/kg/hr TITR PRN 5.69 mls/hr Agitation Administration Protocol 0.2 MCG/KG/HR Piperacillin Sod/Tazobactam Sod 3.375 gm in 50 mls @ 100 mls/hr 03/05/18 12:30 03/08/18 06:30 Zosyn 3.375 Gm Iv Premix IVPB 100 mls/hr Q6H ASHLEIGH Administration Protocol Lactobacillus Acidophilus 1 cap 02/28/18 10:00 03/07/18 18:21 Bacid Acidophilus PO 1 cap BID ASHLEIGH Administration Lorazepam 1 mg 02/28/18 17:20 03/07/18 14:29 Ativan IVP 1 mg Q6H PRN Administration Agitation Multivitamins 1 tab 03/03/18 10:00 03/07/18 10:17 Hexavitamin PO 1 tab DAILY ASHLEIGH Administration Pantoprazole Sodium 40 mg 03/05/18 06:00 03/08/18 06:41 Protonix Susp PO 40 mg 0600 ASHLEIGH Administration Potassium Phos/Sodium Phos 1 pkt 03/07/18 10:45 03/07/18 18:21 Neutra-Phos PO 1 pkt BID ASHLEIGH Administration Spironolactone 25 mg 03/06/18 10:00 03/07/18 10:15 Aldactone PO 25 mg DAILY ASHLEIGH Administration Thiamine HCl 100 mg 03/03/18 10:00 03/07/18 18:23 Vitamin B1 Tab PO 100 mg BID ASHLEIGH Administration - Patient Studies Lab Studies: Lab Studies 03/08/18 03/08/18 03/08/18 Range/Units 05:53 05:52 05:16 WBC 6.8 (4.8-10.8) K/uL RBC 2.31 L (4.40-5.90) Mil/uL Hgb 8.0 L (12.0-18.0) g/dL Hct 23.6 L (35.0-51.0) % MCV 102.1 H (80.0-94.0) fL MCH 34.4 H (27.0-31.0) pg MCHC 33.7 (33.0-37.0) g/dL RDW 20.6 H (11.5-14.5) % Plt Count 95 L (130-400) K/uL MPV 10.8 (7.2-11.7) fL Neut % (Auto) 69.1 (50.0-75.0) % Lymph % (Auto) 19.5 L (20.0-40.0) % [place] % (Auto) 9.0 (0.0-10.0) % Eos % (Auto) 1.6 (0.0-4.0) % Baso % (Auto) 0.8 (0.0-2.0) % Neut # (Auto) 4.7 (1.8-7.0) K/uL Lymph # (Auto) 1.3 (1.0-4.3) K/uL [place] # (Auto) 0.6 (0.0-0.8) K/uL Eos # (Auto) 0.1 (0.0-0.7) K/uL Baso # (Auto) 0.1 (0.0-0.2) K/uL Puncture Site pCO2 (35-45) mm/Hg pO2 (80-100) mm/Hg HCO3 (21-28) mmol/L ABG pH (7.35-7.45) ABG Total CO2 (22-28) mmol/L ABG O2 Saturation (95-98) % ABG Base Excess (-2.0-3.0) mmol/L ABG Hemoglobin (11.7-17.4) g/dL ABG Carboxyhemoglobin (0.5-1.5) % POC ABG HHb (Measured) (0.0-5.0) % ABG Methemoglobin (0.0-3.0) % Rei Test A-a O2 Difference mm/Hg Respiratory Index Hgb O2 Saturation (95.0-98.0) % Vent Mode Mechanical Rate FiO2 % Tidal Volume PEEP Sodium 134 (132-148) mmol/L Potassium 3.1 L (3.6-5.2) mmol/L Chloride 104 (98-107) mmol/L Carbon Dioxide 22 (22-30) mmol/L Anion Gap 11 (10-20) BUN 11 (9-20) mg/dL Creatinine 0.8 (0.8-1.5) mg/dL Est GFR ( Amer) > 60 Est GFR (Non-Af Amer) > 60 POC Glucose (mg/dL) 116 H (65-110) mg/dL Random Glucose 115 H (75-110) mg/dL Calcium 8.0 L (8.6-10.4) mg/dl Phosphorus 3.2 (2.5-4.5) mg/dL Magnesium 1.7 (1.6-2.3) mg/dL Total Bilirubin 5.7 H (0.2-1.3) mg/dL AST 121 H (17-59) U/L ALT 49 (21-72) U/L Alkaline Phosphatase 191 H (38-126) U/L Total Protein 6.8 (6.3-8.3) g/dL Albumin 2.5 L (3.5-5.0) g/dL Globulin 4.4 H (2.2-3.9) gm/dL Albumin/Globulin Ratio 0.6 L (1.0-2.1) Procalcitonin (0.19-0.49) NG/ML Fluid Source Fluid Appearance (CLEAR) Fluid WBC (0.0-300.0) /mm3 Fluid RBC (0.0-0.0) /mm3 Fluid Tot Cell Count (0-0) Fluid Neutrophils (0-0) % Fluid Lymphocytes (0-0) % Fld Monocyte/Macrophag (0-0) % Fluid Comment 03/08/18 03/08/18 03/07/18 Range/Units 05:05 00:00 18:08 WBC (4.8-10.8) K/uL RBC (4.40-5.90) Mil/uL Hgb (12.0-18.0) g/dL Hct (35.0-51.0) % MCV (80.0-94.0) fL MCH (27.0-31.0) pg MCHC (33.0-37.0) g/dL RDW (11.5-14.5) % Plt Count (130-400) K/uL MPV (7.2-11.7) fL Neut % (Auto) (50.0-75.0) % Lymph % (Auto) (20.0-40.0) % [place] % (Auto) (0.0-10.0) % Eos % (Auto) (0.0-4.0) % Baso % (Auto) (0.0-2.0) % Neut # (Auto) (1.8-7.0) K/uL Lymph # (Auto) (1.0-4.3) K/uL [place] # (Auto) (0.0-0.8) K/uL Eos # (Auto) (0.0-0.7) K/uL Baso # (Auto) (0.0-0.2) K/uL Puncture Site Rr pCO2 29 L (35-45) mm/Hg pO2 135 H (80-100) mm/Hg HCO3 22.4 (21-28) mmol/L ABG pH 7.45 (7.35-7.45) ABG Total CO2 21.1 L (22-28) mmol/L ABG O2 Saturation 100.4 H (95-98) % ABG Base Excess -3.2 L (-2.0-3.0) mmol/L ABG Hemoglobin 8.2 L (11.7-17.4) g/dL ABG Carboxyhemoglobin 2.7 H (0.5-1.5) % POC ABG HHb (Measured) -0.4 L (0.0-5.0) % ABG Methemoglobin 1.0 (0.0-3.0) % Rei Test Pos A-a O2 Difference 114.0 mm/Hg Respiratory Index 0.8 Hgb O2 Saturation 96.7 (95.0-98.0) % Vent Mode Prvc Mechanical Rate 16 FiO2 40.0 % Tidal Volume 450 PEEP 5 Sodium (132-148) mmol/L Potassium (3.6-5.2) mmol/L Chloride (98-107) mmol/L Carbon Dioxide (22-30) mmol/L Anion Gap (10-20) BUN (9-20) mg/dL Creatinine (0.8-1.5) mg/dL Est GFR ( Amer) Est GFR (Non-Af Amer) POC Glucose (mg/dL) 133 H 99 (65-110) mg/dL Random Glucose (75-110) mg/dL Calcium (8.6-10.4) mg/dl Phosphorus (2.5-4.5) mg/dL Magnesium (1.6-2.3) mg/dL Total Bilirubin (0.2-1.3) mg/dL AST (17-59) U/L ALT (21-72) U/L Alkaline Phosphatase (38-126) U/L Total Protein (6.3-8.3) g/dL Albumin (3.5-5.0) g/dL Globulin (2.2-3.9) gm/dL Albumin/Globulin Ratio (1.0-2.1) Procalcitonin (0.19-0.49) NG/ML Fluid Source Fluid Appearance (CLEAR) Fluid WBC (0.0-300.0) /mm3 Fluid RBC (0.0-0.0) /mm3 Fluid Tot Cell Count (0-0) Fluid Neutrophils (0-0) % Fluid Lymphocytes (0-0) % Fld Monocyte/Macrophag (0-0) % Fluid Comment 03/07/18 03/07/18 03/07/18 Range/Units 15:23 12:18 08:13 WBC (4.8-10.8) K/uL RBC (4.40-5.90) Mil/uL Hgb (12.0-18.0) g/dL Hct (35.0-51.0) % MCV (80.0-94.0) fL MCH (27.0-31.0) pg MCHC (33.0-37.0) g/dL RDW (11.5-14.5) % Plt Count (130-400) K/uL MPV (7.2-11.7) fL Neut % (Auto) (50.0-75.0) % Lymph % (Auto) (20.0-40.0) % [place] % (Auto) (0.0-10.0) % Eos % (Auto) (0.0-4.0) % Baso % (Auto) (0.0-2.0) % Neut # (Auto) (1.8-7.0) K/uL Lymph # (Auto) (1.0-4.3) K/uL [place] # (Auto) (0.0-0.8) K/uL Eos # (Auto) (0.0-0.7) K/uL Baso # (Auto) (0.0-0.2) K/uL Puncture Site pCO2 (35-45) mm/Hg pO2 (80-100) mm/Hg HCO3 (21-28) mmol/L ABG pH (7.35-7.45) ABG Total CO2 (22-28) mmol/L ABG O2 Saturation (95-98) % ABG Base Excess (-2.0-3.0) mmol/L ABG Hemoglobin (11.7-17.4) g/dL ABG Carboxyhemoglobin (0.5-1.5) % POC ABG HHb (Measured) (0.0-5.0) % ABG Methemoglobin (0.0-3.0) % Rei Test A-a O2 Difference mm/Hg Respiratory Index Hgb O2 Saturation (95.0-98.0) % Vent Mode Mechanical Rate FiO2 % Tidal Volume PEEP Sodium (132-148) mmol/L Potassium (3.6-5.2) mmol/L Chloride (98-107) mmol/L Carbon Dioxide (22-30) mmol/L Anion Gap (10-20) BUN (9-20) mg/dL Creatinine (0.8-1.5) mg/dL Est GFR ( Amer) Est GFR (Non-Af Amer) POC Glucose (mg/dL) 108 (65-110) mg/dL Random Glucose (75-110) mg/dL Calcium (8.6-10.4) mg/dl Phosphorus (2.5-4.5) mg/dL Magnesium (1.6-2.3) mg/dL Total Bilirubin (0.2-1.3) mg/dL AST (17-59) U/L ALT (21-72) U/L Alkaline Phosphatase (38-126) U/L Total Protein (6.3-8.3) g/dL Albumin (3.5-5.0) g/dL Globulin (2.2-3.9) gm/dL Albumin/Globulin Ratio (1.0-2.1) Procalcitonin 0.43 (0.19-0.49) NG/ML Fluid Source Pleural/thoracentesi Fluid Appearance Cloudy (CLEAR) Fluid WBC 2078.0 H (0.0-300.0) /mm3 Fluid RBC 2708.0 H (0.0-0.0) /mm3 Fluid Tot Cell Count 100 H (0-0) Fluid Neutrophils 23.0 H (0-0) % Fluid Lymphocytes 75.0 H (0-0) % Fld Monocyte/Macrophag 2 H (0-0) % Fluid Comment 03/07/18 03/07/18 Range/Units 06:27 05:23 WBC (4.8-10.8) K/uL RBC (4.40-5.90) Mil/uL Hgb (12.0-18.0) g/dL Hct (35.0-51.0) % MCV (80.0-94.0) fL MCH (27.0-31.0) pg MCHC (33.0-37.0) g/dL RDW (11.5-14.5) % Plt Count (130-400) K/uL MPV (7.2-11.7) fL Neut % (Auto) (50.0-75.0) % Lymph % (Auto) (20.0-40.0) % [place] % (Auto) (0.0-10.0) % Eos % (Auto) (0.0-4.0) % Baso % (Auto) (0.0-2.0) % Neut # (Auto) (1.8-7.0) K/uL Lymph # (Auto) (1.0-4.3) K/uL [place] # (Auto) (0.0-0.8) K/uL Eos # (Auto) (0.0-0.7) K/uL Baso # (Auto) (0.0-0.2) K/uL Puncture Site pCO2 (35-45) mm/Hg pO2 (80-100) mm/Hg HCO3 (21-28) mmol/L ABG pH (7.35-7.45) ABG Total CO2 (22-28) mmol/L ABG O2 Saturation (95-98) % ABG Base Excess (-2.0-3.0) mmol/L ABG Hemoglobin (11.7-17.4) g/dL ABG Carboxyhemoglobin (0.5-1.5) % POC ABG HHb (Measured) (0.0-5.0) % ABG Methemoglobin (0.0-3.0) % Rei Test A-a O2 Difference mm/Hg Respiratory Index Hgb O2 Saturation (95.0-98.0) % Vent Mode Mechanical Rate FiO2 % Tidal Volume PEEP Sodium (132-148) mmol/L Potassium (3.6-5.2) mmol/L Chloride (98-107) mmol/L Carbon Dioxide (22-30) mmol/L Anion Gap (10-20) BUN (9-20) mg/dL Creatinine (0.8-1.5) mg/dL Est GFR ( Amer) Est GFR (Non-Af Amer) POC Glucose (mg/dL) 133 H 118 H (65-110) mg/dL Random Glucose (75-110) mg/dL Calcium (8.6-10.4) mg/dl Phosphorus (2.5-4.5) mg/dL Magnesium (1.6-2.3) mg/dL Total Bilirubin (0.2-1.3) mg/dL AST (17-59) U/L ALT (21-72) U/L Alkaline Phosphatase (38-126) U/L Total Protein (6.3-8.3) g/dL Albumin (3.5-5.0) g/dL Globulin (2.2-3.9) gm/dL Albumin/Globulin Ratio (1.0-2.1) Procalcitonin (0.19-0.49) NG/ML Fluid Source Fluid Appearance (CLEAR) Fluid WBC (0.0-300.0) /mm3 Fluid RBC (0.0-0.0) /mm3 Fluid Tot Cell Count (0-0) Fluid Neutrophils (0-0) % Fluid Lymphocytes (0-0) % Fld Monocyte/Macrophag (0-0) % Fluid Comment Laboratory Results - last 24 hr 03/07/18 03/07/18 03/07/18 05:23 06:27 08:13 WBC RBC Hgb Hct MCV MCH MCHC RDW Plt Count MPV Neut % (Auto) Lymph % (Auto) [place] % (Auto) Eos % (Auto) Baso % (Auto) Neut # (Auto) Lymph # (Auto) [place] # (Auto) Eos # (Auto) Baso # (Auto) Puncture Site pCO2 pO2 HCO3 ABG pH ABG Total CO2 ABG O2 Saturation ABG Base Excess ABG Hemoglobin ABG Carboxyhemoglobin POC ABG HHb (Measured) ABG Methemoglobin Rei Test A-a O2 Difference Respiratory Index Hgb O2 Saturation Vent Mode Mechanical Rate FiO2 Tidal Volume PEEP Sodium Potassium Chloride Carbon Dioxide Anion Gap BUN Creatinine Est GFR ( Amer) Est GFR (Non-Af Amer) POC Glucose (mg/dL) 118 H 133 H Random Glucose Calcium Phosphorus Magnesium Total Bilirubin AST ALT Alkaline Phosphatase Total Protein Albumin Globulin Albumin/Globulin Ratio Procalcitonin 0.43 Fluid Source Fluid Appearance Fluid WBC Fluid RBC Fluid Tot Cell Count Fluid Neutrophils Fluid Lymphocytes Fld Monocyte/Macrophag Fluid Comment 03/07/18 03/07/18 03/07/18 12:18 15:23 18:08 WBC RBC Hgb Hct MCV MCH MCHC RDW Plt Count MPV Neut % (Auto) Lymph % (Auto) [place] % (Auto) Eos % (Auto) Baso % (Auto) Neut # (Auto) Lymph # (Auto) [place] # (Auto) Eos # (Auto) Baso # (Auto) Puncture Site pCO2 pO2 HCO3 ABG pH ABG Total CO2 ABG O2 Saturation ABG Base Excess ABG Hemoglobin ABG Carboxyhemoglobin POC ABG HHb (Measured) ABG Methemoglobin Rei Test A-a O2 Difference Respiratory Index Hgb O2 Saturation Vent Mode Mechanical Rate FiO2 Tidal Volume PEEP Sodium Potassium Chloride Carbon Dioxide Anion Gap BUN Creatinine Est GFR ( Amer) Est GFR (Non-Af Amer) POC Glucose (mg/dL) 108 99 Random Glucose Calcium Phosphorus Magnesium Total Bilirubin AST ALT Alkaline Phosphatase Total Protein Albumin Globulin Albumin/Globulin Ratio Procalcitonin Fluid Source Pleural/thoracentesi Fluid Appearance Cloudy Fluid WBC 2078.0 H Fluid RBC 2708.0 H Fluid Tot Cell Count 100 H Fluid Neutrophils 23.0 H Fluid Lymphocytes 75.0 H Fld Monocyte/Macrophag 2 H Fluid Comment 03/08/18 03/08/18 03/08/18 00:00 05:05 05:16 WBC RBC Hgb Hct MCV MCH MCHC RDW Plt Count MPV Neut % (Auto) Lymph % (Auto) [place] % (Auto) Eos % (Auto) Baso % (Auto) Neut # (Auto) Lymph # (Auto) [place] # (Auto) Eos # (Auto) Baso # (Auto) Puncture Site Rr pCO2 29 L pO2 135 H HCO3 22.4 ABG pH 7.45 ABG Total CO2 21.1 L ABG O2 Saturation 100.4 H ABG Base Excess -3.2 L ABG Hemoglobin 8.2 L ABG Carboxyhemoglobin 2.7 H POC ABG HHb (Measured) -0.4 L ABG Methemoglobin 1.0 Rei Test Pos A-a O2 Difference 114.0 Respiratory Index 0.8 Hgb O2 Saturation 96.7 Vent Mode Prvc Mechanical Rate 16 FiO2 40.0 Tidal Volume 450 PEEP 5 Sodium Potassium Chloride Carbon Dioxide Anion Gap BUN Creatinine Est GFR ( Amer) Est GFR (Non-Af Amer) POC Glucose (mg/dL) 133 H 116 H Random Glucose Calcium Phosphorus Magnesium Total Bilirubin AST ALT Alkaline Phosphatase Total Protein Albumin Globulin Albumin/Globulin Ratio Procalcitonin Fluid Source Fluid Appearance Fluid WBC Fluid RBC Fluid Tot Cell Count Fluid Neutrophils Fluid Lymphocytes Fld Monocyte/Macrophag Fluid Comment 03/08/18 03/08/18 05:52 05:53 WBC 6.8 RBC 2.31 L Hgb 8.0 L Hct 23.6 L MCV 102.1 H MCH 34.4 H MCHC 33.7 RDW 20.6 H Plt Count 95 L MPV 10.8 Neut % (Auto) 69.1 Lymph % (Auto) 19.5 L [place] % (Auto) 9.0 Eos % (Auto) 1.6 Baso % (Auto) 0.8 Neut # (Auto) 4.7 Lymph # (Auto) 1.3 [place] # (Auto) 0.6 Eos # (Auto) 0.1 Baso # (Auto) 0.1 Puncture Site pCO2 pO2 HCO3 ABG pH ABG Total CO2 ABG O2 Saturation ABG Base Excess ABG Hemoglobin ABG Carboxyhemoglobin POC ABG HHb (Measured) ABG Methemoglobin Rei Test A-a O2 Difference Respiratory Index Hgb O2 Saturation Vent Mode Mechanical Rate FiO2 Tidal Volume PEEP Sodium 134 Potassium 3.1 L Chloride 104 Carbon Dioxide 22 Anion Gap 11 BUN 11 Creatinine 0.8 Est GFR ( Amer) > 60 Est GFR (Non-Af Amer) > 60 POC Glucose (mg/dL) Random Glucose 115 H Calcium 8.0 L Phosphorus 3.2 Magnesium 1.7 Total Bilirubin 5.7 H AST 121 H ALT 49 Alkaline Phosphatase 191 H Total Protein 6.8 Albumin 2.5 L Globulin 4.4 H Albumin/Globulin Ratio 0.6 L Procalcitonin Fluid Source Fluid Appearance Fluid WBC Fluid RBC Fluid Tot Cell Count Fluid Neutrophils Fluid Lymphocytes Fld Monocyte/Macrophag Fluid Comment Fingerstick Blood Sugar Results: 116 Review of Systems - Review of Systems Systems not reviewed;Unavailable: Intubated Assessment/Plan - Assessment and Plan (Free Text) Assessment: 57 yo M with PMHx of multiple visits to the ED for alcohol intoxication BIBEMS for alcohol intoxication. Of note, the patient is homeless and was found on someone else's property. While in the ED: CXR was obtained and revealed right lower lobe infiltrates. Patient treated empirically for CAP. CT head without contrast was obtained 02/27/18 and revealed small subdural hematoma. Patient currently arousable but is not oriented. Patient was intubated on 03/03/18. Remains on CPAP trial. Status post R thoracentesis with 1 L of straw-colored fluid removed. Continue antibiotics, continue weaning. Sedation vacation. Plan: Neuro: -sedation vacation -arousable to verbal/tactile stimuli -has evolving subdural hematomas, now stabilizing. Neurosurgery on board. Pulm: -acute respiratory failure on ventilator 2/2 pneumonia - pleural effusion cytology -WBC 2078 -RBC 2708 -Neutrophil 23 -Lymphocyte 75 -CXR (03/08): Dense b/l pleural parenchymal opacities throughout both lungs. Scattered modular densities in both lung brown. -CXR (03/07): small b/l infiltrate R>L -CXR (03/06): Prominent diffuse b/l airspace consolidative opacities throughout lungs. Small b/l pleural effusions, cardiomegaly. Mild atherosclerotic calcification noted within the aorta. -Patient tolerating CPAP well, however still has a large amounts of secretions from ETT. Possible thoracentesis with IR for tomorrow. -mili krishnamurthy CV: -hemodynamically stable Heme: -PLT 95 -no leukocytosis noted Renal: -K, phos repletion -Nephro recs (Dr. Taylor) appreciated: patient now with metabolic acidosis/resp alkalosis; hypokalemia likely secondary to lasix, diamox; Diamox being held, would change lasix to prn only Endo: -no acute issues GI: -NPO, Jevity @ 40cc/hr ID: -Sepsis secondary to CAP -on Zosyn, Vanc on hold PPx, Diet, Disposition -DVT ppx: scds, anticoagulation being held d/t current subdural hematomas -GI ppx: protonix -gay for strict I/Os during acute illness -Diet: tube feeding, Jevity @ 40 cc/hr -Code status: Full code Case discussed with Dr. Cornelius Morrow DO, PGY-1 <Olvin Shields S - Last Filed: 03/08/18 18:08> CCU Subjective - Physician Review Critical Care Time Spent (in minutes): 45 CCU Objective - Vital Signs / Intake & Output Vital Signs (Last 4 hours): Vital Signs Temp Pulse Resp BP Pulse Ox 03/08/18 17:00 85 16 100 03/08/18 16:33 83 22 120/57 L 99 03/08/18 16:00 98.1 F 88 18 99 03/08/18 15:33 89 18 127/69 100 03/08/18 15:00 93 H 18 100 03/08/18 14:33 87 22 140/82 100 Intake and Output (Last 8hrs): Intake & Output 03/08/18 03/08/18 03/08/18 06:59 14:59 22:59 Intake Total 399.4 987.9 137.4 Output Total 650 1750 750 Balance -250.6 -762.1 -612.6 Weight 149 lb 14.629 oz Intake: IV 41.4 50.6 Intake, IV Amount 38.0 267.3 17.4 LA MIDLINE 38.0 205.7 Left Forearm 61.6 17.4 Tube Feeding 320 320 120 Other 350 Output: Urine 650 1750 750 Condom 650 1750 750 Other: # Bowel Movements 0 0 1 - Medications Active Medications: Active Medications Generic Name Dose Route Start Last Admin Trade Name Freq PRN Reason Stop Dose Admin Albuterol/Ipratropium 3 ml 03/03/18 20:00 03/08/18 13:07 Duoneb 3 Mg/0.5 Mg (3 Ml) Ud INH 3 ml RQ6 ASHLEIGH Administration Dextrose 0 gm 02/28/18 07:44 Glutose 15 PO ONCE PRN Hypoglycemia Protocol Protocol Docusate Sodium 100 mg 03/07/18 18:00 03/07/18 18:21 Colace PO 100 mg DAILY PRN Administration Constipation Folic Acid 1 mg 03/03/18 10:00 03/08/18 09:16 Folic Acid PO 1 mg DAILY ASHLEIGH Administration Furosemide 20 mg 03/06/18 10:00 03/08/18 09:17 Lasix PO 20 mg DAILY ASHLEIGH Administration Glucagon 1 mg 02/28/18 07:44 Glucagen Diagnostic Kit IM STAT PRN Hypoglycemia Protocol Protocol Guaifenesin 100 mg 03/03/18 18:27 Robitussin PO Q4H PRN Cough Dexmedetomidine HCl 200 mcg/ 50 mls @ 3.79 mls/hr 03/01/18 16:36 03/08/18 13:00 Sodium Chloride IV 0.3 mcg/kg/hr TITR PRN 5.69 mls/hr Agitation Titration Protocol 0.2 MCG/KG/HR Piperacillin Sod/Tazobactam Sod 3.375 gm in 50 mls @ 100 mls/hr 03/05/18 12:30 03/08/18 17:51 Zosyn 3.375 Gm Iv Premix IVPB 100 mls/hr Q6H ASHLEIGH Administration Protocol Lactobacillus Acidophilus 1 cap 02/28/18 10:00 03/08/18 17:51 Bacid Acidophilus PO 1 cap BID ASHLEIGH Administration Lorazepam 1 mg 02/28/18 17:20 03/07/18 14:29 Ativan IVP 1 mg Q6H PRN Administration Agitation Multivitamins 1 tab 03/03/18 10:00 03/08/18 09:17 Hexavitamin PO 1 tab DAILY ASHLEIGH Administration Pantoprazole Sodium 40 mg 03/05/18 06:00 03/08/18 06:41 Protonix Susp PO 40 mg 0600 ASHLEIGH Administration Potassium Phos/Sodium Phos 1 pkt 03/07/18 10:45 03/08/18 17:51 Neutra-Phos PO 1 pkt BID ASHLEIGH Administration Spironolactone 50 mg 03/08/18 13:12 Aldactone PO DAILY ASHLEIGH Thiamine HCl 100 mg 03/03/18 10:00 03/08/18 17:51 Vitamin B1 Tab PO 100 mg BID ASHLEIGH Administration - Patient Studies Lab Studies: Microbiology Studies 03/07/18 15:23 Body Fluid Culture - Preliminary Pleural Fluid NO GROWTH AFTER 24 HOURS Lab Studies 03/08/18 03/08/18 03/08/18 Range/Units 17:26 13:59 12:11 WBC (4.8-10.8) K/uL RBC (4.40-5.90) Mil/uL Hgb (12.0-18.0) g/dL Hct (35.0-51.0) % MCV (80.0-94.0) fL MCH (27.0-31.0) pg MCHC (33.0-37.0) g/dL RDW (11.5-14.5) % Plt Count (130-400) K/uL MPV (7.2-11.7) fL Neut % (Auto) (50.0-75.0) % Lymph % (Auto) (20.0-40.0) % [place] % (Auto) (0.0-10.0) % Eos % (Auto) (0.0-4.0) % Baso % (Auto) (0.0-2.0) % Neut # (Auto) (1.8-7.0) K/uL Lymph # (Auto) (1.0-4.3) K/uL [place] # (Auto) (0.0-0.8) K/uL Eos # (Auto) (0.0-0.7) K/uL Baso # (Auto) (0.0-0.2) K/uL Puncture Site pCO2 (35-45) mm/Hg pO2 (80-100) mm/Hg HCO3 (21-28) mmol/L ABG pH (7.35-7.45) ABG Total CO2 (22-28) mmol/L ABG O2 Saturation (95-98) % ABG Base Excess (-2.0-3.0) mmol/L ABG Hemoglobin (11.7-17.4) g/dL ABG Carboxyhemoglobin (0.5-1.5) % POC ABG HHb (Measured) (0.0-5.0) % ABG Methemoglobin (0.0-3.0) % Rei Test A-a O2 Difference mm/Hg Respiratory Index Hgb O2 Saturation (95.0-98.0) % Vent Mode Mechanical Rate FiO2 % Tidal Volume PEEP Sodium (132-148) mmol/L Potassium (3.6-5.2) mmol/L Chloride (98-107) mmol/L Carbon Dioxide (22-30) mmol/L Anion Gap (10-20) BUN (9-20) mg/dL Creatinine (0.8-1.5) mg/dL Est GFR ( Amer) Est GFR (Non-Af Amer) POC Glucose (mg/dL) 115 H 90 (65-110) mg/dL Random Glucose (75-110) mg/dL Calcium (8.6-10.4) mg/dl Phosphorus (2.5-4.5) mg/dL Magnesium (1.6-2.3) mg/dL Total Bilirubin (0.2-1.3) mg/dL AST (17-59) U/L ALT (21-72) U/L Alkaline Phosphatase (38-126) U/L Total Protein (6.3-8.3) g/dL Albumin (3.5-5.0) g/dL Globulin (2.2-3.9) gm/dL Albumin/Globulin Ratio (1.0-2.1) Ur Random Potassium 18.4 mmol/L 03/08/18 03/08/18 03/08/18 Range/Units 05:53 05:52 05:16 WBC 6.8 (4.8-10.8) K/uL RBC 2.31 L (4.40-5.90) Mil/uL Hgb 8.0 L (12.0-18.0) g/dL Hct 23.6 L (35.0-51.0) % MCV 102.1 H (80.0-94.0) fL MCH 34.4 H (27.0-31.0) pg MCHC 33.7 (33.0-37.0) g/dL RDW 20.6 H (11.5-14.5) % Plt Count 95 L (130-400) K/uL MPV 10.8 (7.2-11.7) fL Neut % (Auto) 69.1 (50.0-75.0) % Lymph % (Auto) 19.5 L (20.0-40.0) % [place] % (Auto) 9.0 (0.0-10.0) % Eos % (Auto) 1.6 (0.0-4.0) % Baso % (Auto) 0.8 (0.0-2.0) % Neut # (Auto) 4.7 (1.8-7.0) K/uL Lymph # (Auto) 1.3 (1.0-4.3) K/uL [place] # (Auto) 0.6 (0.0-0.8) K/uL Eos # (Auto) 0.1 (0.0-0.7) K/uL Baso # (Auto) 0.1 (0.0-0.2) K/uL Puncture Site pCO2 (35-45) mm/Hg pO2 (80-100) mm/Hg HCO3 (21-28) mmol/L ABG pH (7.35-7.45) ABG Total CO2 (22-28) mmol/L ABG O2 Saturation (95-98) % ABG Base Excess (-2.0-3.0) mmol/L ABG Hemoglobin (11.7-17.4) g/dL ABG Carboxyhemoglobin (0.5-1.5) % POC ABG HHb (Measured) (0.0-5.0) % ABG Methemoglobin (0.0-3.0) % Rei Test A-a O2 Difference mm/Hg Respiratory Index Hgb O2 Saturation (95.0-98.0) % Vent Mode Mechanical Rate FiO2 % Tidal Volume PEEP Sodium 134 (132-148) mmol/L Potassium 3.1 L (3.6-5.2) mmol/L Chloride 104 (98-107) mmol/L Carbon Dioxide 22 (22-30) mmol/L Anion Gap 11 (10-20) BUN 11 (9-20) mg/dL Creatinine 0.8 (0.8-1.5) mg/dL Est GFR ( Amer) > 60 Est GFR (Non-Af Amer) > 60 POC Glucose (mg/dL) 116 H (65-110) mg/dL Random Glucose 115 H (75-110) mg/dL Calcium 8.0 L (8.6-10.4) mg/dl Phosphorus 3.2 (2.5-4.5) mg/dL Magnesium 1.7 (1.6-2.3) mg/dL Total Bilirubin 5.7 H (0.2-1.3) mg/dL AST 121 H (17-59) U/L ALT 49 (21-72) U/L Alkaline Phosphatase 191 H (38-126) U/L Total Protein 6.8 (6.3-8.3) g/dL Albumin 2.5 L (3.5-5.0) g/dL Globulin 4.4 H (2.2-3.9) gm/dL Albumin/Globulin Ratio 0.6 L (1.0-2.1) Ur Random Potassium mmol/L 03/08/18 03/08/18 03/07/18 Range/Units 05:05 00:00 18:08 WBC (4.8-10.8) K/uL RBC (4.40-5.90) Mil/uL Hgb (12.0-18.0) g/dL Hct (35.0-51.0) % MCV (80.0-94.0) fL MCH (27.0-31.0) pg MCHC (33.0-37.0) g/dL RDW (11.5-14.5) % Plt Count (130-400) K/uL MPV (7.2-11.7) fL Neut % (Auto) (50.0-75.0) % Lymph % (Auto) (20.0-40.0) % [place] % (Auto) (0.0-10.0) % Eos % (Auto) (0.0-4.0) % Baso % (Auto) (0.0-2.0) % Neut # (Auto) (1.8-7.0) K/uL Lymph # (Auto) (1.0-4.3) K/uL [place] # (Auto) (0.0-0.8) K/uL Eos # (Auto) (0.0-0.7) K/uL Baso # (Auto) (0.0-0.2) K/uL Puncture Site Rr pCO2 29 L (35-45) mm/Hg pO2 135 H (80-100) mm/Hg HCO3 22.4 (21-28) mmol/L ABG pH 7.45 (7.35-7.45) ABG Total CO2 21.1 L (22-28) mmol/L ABG O2 Saturation 100.4 H (95-98) % ABG Base Excess -3.2 L (-2.0-3.0) mmol/L ABG Hemoglobin 8.2 L (11.7-17.4) g/dL ABG Carboxyhemoglobin 2.7 H (0.5-1.5) % POC ABG HHb (Measured) -0.4 L (0.0-5.0) % ABG Methemoglobin 1.0 (0.0-3.0) % Rei Test Pos A-a O2 Difference 114.0 mm/Hg Respiratory Index 0.8 Hgb O2 Saturation 96.7 (95.0-98.0) % Vent Mode Prvc Mechanical Rate 16 FiO2 40.0 % Tidal Volume 450 PEEP 5 Sodium (132-148) mmol/L Potassium (3.6-5.2) mmol/L Chloride (98-107) mmol/L Carbon Dioxide (22-30) mmol/L Anion Gap (10-20) BUN (9-20) mg/dL Creatinine (0.8-1.5) mg/dL Est GFR ( Amer) Est GFR (Non-Af Amer) POC Glucose (mg/dL) 133 H 99 (65-110) mg/dL Random Glucose (75-110) mg/dL Calcium (8.6-10.4) mg/dl Phosphorus (2.5-4.5) mg/dL Magnesium (1.6-2.3) mg/dL Total Bilirubin (0.2-1.3) mg/dL AST (17-59) U/L ALT (21-72) U/L Alkaline Phosphatase (38-126) U/L Total Protein (6.3-8.3) g/dL Albumin (3.5-5.0) g/dL Globulin (2.2-3.9) gm/dL Albumin/Globulin Ratio (1.0-2.1) Ur Random Potassium mmol/L Laboratory Results - last 24 hr 03/07/18 03/08/18 03/08/18 18:08 00:00 05:05 WBC RBC Hgb Hct MCV MCH MCHC RDW Plt Count MPV Neut % (Auto) Lymph % (Auto) [place] % (Auto) Eos % (Auto) Baso % (Auto) Neut # (Auto) Lymph # (Auto) [place] # (Auto) Eos # (Auto) Baso # (Auto) Puncture Site Rr pCO2 29 L pO2 135 H HCO3 22.4 ABG pH 7.45 ABG Total CO2 21.1 L ABG O2 Saturation 100.4 H ABG Base Excess -3.2 L ABG Hemoglobin 8.2 L ABG Carboxyhemoglobin 2.7 H POC ABG HHb (Measured) -0.4 L ABG Methemoglobin 1.0 Rei Test Pos A-a O2 Difference 114.0 Respiratory Index 0.8 Hgb O2 Saturation 96.7 Vent Mode Prvc Mechanical Rate 16 FiO2 40.0 Tidal Volume 450 PEEP 5 Sodium Potassium Chloride Carbon Dioxide Anion Gap BUN Creatinine Est GFR ( Amer) Est GFR (Non-Af Amer) POC Glucose (mg/dL) 99 133 H Random Glucose Calcium Phosphorus Magnesium Total Bilirubin AST ALT Alkaline Phosphatase Total Protein Albumin Globulin Albumin/Globulin Ratio Ur Random Potassium 03/08/18 03/08/18 03/08/18 05:16 05:52 05:53 WBC 6.8 RBC 2.31 L Hgb 8.0 L Hct 23.6 L MCV 102.1 H MCH 34.4 H MCHC 33.7 RDW 20.6 H Plt Count 95 L MPV 10.8 Neut % (Auto) 69.1 Lymph % (Auto) 19.5 L [place] % (Auto) 9.0 Eos % (Auto) 1.6 Baso % (Auto) 0.8 Neut # (Auto) 4.7 Lymph # (Auto) 1.3 [place] # (Auto) 0.6 Eos # (Auto) 0.1 Baso # (Auto) 0.1 Puncture Site pCO2 pO2 HCO3 ABG pH ABG Total CO2 ABG O2 Saturation ABG Base Excess ABG Hemoglobin ABG Carboxyhemoglobin POC ABG HHb (Measured) ABG Methemoglobin Rei Test A-a O2 Difference Respiratory Index Hgb O2 Saturation Vent Mode Mechanical Rate FiO2 Tidal Volume PEEP Sodium 134 Potassium 3.1 L Chloride 104 Carbon Dioxide 22 Anion Gap 11 BUN 11 Creatinine 0.8 Est GFR ( Amer) > 60 Est GFR (Non-Af Amer) > 60 POC Glucose (mg/dL) 116 H Random Glucose 115 H Calcium 8.0 L Phosphorus 3.2 Magnesium 1.7 Total Bilirubin 5.7 H AST 121 H ALT 49 Alkaline Phosphatase 191 H Total Protein 6.8 Albumin 2.5 L Globulin 4.4 H Albumin/Globulin Ratio 0.6 L Ur Random Potassium 03/08/18 03/08/18 03/08/18 12:11 13:59 17:26 WBC RBC Hgb Hct MCV MCH MCHC RDW Plt Count MPV Neut % (Auto) Lymph % (Auto) [place] % (Auto) Eos % (Auto) Baso % (Auto) Neut # (Auto) Lymph # (Auto) [place] # (Auto) Eos # (Auto) Baso # (Auto) Puncture Site pCO2 pO2 HCO3 ABG pH ABG Total CO2 ABG O2 Saturation ABG Base Excess ABG Hemoglobin ABG Carboxyhemoglobin POC ABG HHb (Measured) ABG Methemoglobin Rei Test A-a O2 Difference Respiratory Index Hgb O2 Saturation Vent Mode Mechanical Rate FiO2 Tidal Volume PEEP Sodium Potassium Chloride Carbon Dioxide Anion Gap BUN Creatinine Est GFR ( Amer) Est GFR (Non-Af Amer) POC Glucose (mg/dL) 90 115 H Random Glucose Calcium Phosphorus Magnesium Total Bilirubin AST ALT Alkaline Phosphatase Total Protein Albumin Globulin Albumin/Globulin Ratio Ur Random Potassium 18.4 Attending/Attestation - Attestation I have personally seen and examined this patient.: Yes I have fully participated in the care of the patient.: Yes I have reviewed all pertinent clinical information: Yes Notes (Text): 03/08/18 18:07 patient seen and examined in the intensive care unit. Patient is not tolerating weaning Continue antibiotics Copious secretions Continue feeding Precedex drip
--- NOTE | 2018-03-08 09:01 | RAD ---
Chest x-ray single frontal view HISTORY: Intubated. Pleural effusions. Comparison: None available FINDINGS: Lines and tubes in stable position. Dense bilateral pleural parenchymal opacities throughout both lungs, overall not significantly changed since the prior study. Scattered nodular densities in both lung brown. Mild cardiomegaly. Degenerative changes in the spine. Impression: Dense bilateral pleural parenchymal opacities throughout both lungs, overall not significantly changed since the prior study. Scattered nodular densities in both lung brown. Mild cardiomegaly.
[2018-03-08] MEDS: Lactobacillus Acidophilus 500 MU Cap PO SCH ×2 (09:16→17:51)
[2018-03-08] MEDS: Potassium & Sodium Phosphate PO SCH ×2 (09:17→17:51)
[2018-03-08] MEDS: Multiple Vitamins Tab PO SCH (09:17)
--- NOTE | 2018-03-08 15:06 | CP.PCM.PN ---
Subjective - Date & Time of Evaluation Date of Evaluation: 03/08/18 Time of Evaluation: 15:04 - Subjective Subjective: on cpap labs reviewed awake unable to obtain ROS due to cllnical scenario Objective - Vital Signs/Intake and Output Vital Signs (last 24 hours): Temp Pulse Resp BP Pulse Ox 99.1 F 87 22 140/82 100 03/08/18 12:00 03/08/18 14:33 03/08/18 14:33 03/08/18 14:33 03/08/18 14:33 Intake and Output: 03/08/18 03/08/18 06:59 18:59 Intake Total 720.8 987.9 Output Total 960 1750 Balance -239.2 -762.1 - Medications Medications: Current Medications Albuterol/Ipratropium (Duoneb 3 Mg/0.5 Mg (3 Ml) Ud) 3 ml INH RQ6 [facility] Last Admin: 03/08/18 13:07 Dose: 3 ml Dextrose (Glutose 15) 0 gm PO ONCE PRN; Protocol PRN Reason: Hypoglycemia Protocol Docusate Sodium (Colace) 100 mg PO DAILY PRN PRN Reason: Constipation Last Admin: 03/07/18 18:21 Dose: 100 mg Folic Acid (Folic Acid) 1 mg PO DAILY [facility] Last Admin: 03/08/18 09:16 Dose: 1 mg Furosemide (Lasix) 20 mg PO DAILY [facility] Last Admin: 03/08/18 09:17 Dose: 20 mg Glucagon (Glucagen Diagnostic Kit) 1 mg IM STAT PRN; Protocol PRN Reason: Hypoglycemia Protocol Guaifenesin (Robitussin) 100 mg PO Q4H PRN PRN Reason: Cough Dexmedetomidine HCl 200 mcg/ (Sodium Chloride) 50 mls @ 3.79 mls/hr IV TITR PRN; Protocol PRN Reason: Agitation Last Titration: 03/08/18 13:00 Dose: 0.3 mcg/kg/hr, 5.69 mls/hr Piperacillin Sod/Tazobactam Sod (Zosyn 3.375 Gm Iv Premix) 3.375 gm in 50 mls @ 100 mls/hr IVPB Q6H [facility]; Protocol Last Admin: 03/08/18 12:30 Dose: 100 mls/hr Lactobacillus Acidophilus (Bacid Acidophilus) 1 cap PO BID [facility] Last Admin: 03/08/18 09:16 Dose: 1 cap Lorazepam (Ativan) 1 mg IVP Q6H PRN PRN Reason: Agitation Last Admin: 03/07/18 14:29 Dose: 1 mg Multivitamins (Hexavitamin) 1 tab PO DAILY [facility] Last Admin: 03/08/18 09:17 Dose: 1 tab Pantoprazole Sodium (Protonix Susp) 40 mg PO 0600 [facility] Last Admin: 03/08/18 06:41 Dose: 40 mg Potassium Phos/Sodium Phos (Neutra-Phos) 1 pkt PO BID [facility] Last Admin: 03/08/18 09:17 Dose: 1 pkt Spironolactone (Aldactone) 50 mg PO DAILY [facility] Thiamine HCl (Vitamin B1 Tab) 100 mg PO BID [facility] Last Admin: 03/08/18 09:16 Dose: 100 mg - Labs Labs: 03/08/18 05:52 03/08/18 05:53 PT 20.6 SECONDS (9.7-12.2) H 03/07/18 06:32 INR 1.9 03/07/18 06:32 APTT 37 SECONDS (21-34) H 03/05/18 05:51 - Constitutional Appears: No Acute Distress, Chronically Ill - Head Exam Head Exam: ATRAUMATIC, NORMAL INSPECTION Additional comments: ET tube - Eye Exam Eye Exam: EOMI, Normal appearance - Respiratory Exam Respiratory Exam: Decreased Breath Sounds. absent: Accessory Muscle Use - Cardiovascular Exam Cardiovascular Exam: REGULAR RHYTHM. absent: Rubs - GI/Abdominal Exam GI & Abdominal Exam: Distended, Normal Bowel Sounds - Extremities Exam Extremities Exam: absent: Pedal Edema Assessment and Plan - Assessment and Plan (Free Text) Assessment: electrolyte abnormalities increase spirinolactone urine K ordered weaning trial
--- NOTE | 2018-03-08 19:32 | CP.PCM.PN ---
Subjective - Date & Time of Evaluation Date of Evaluation: 03/08/18 Time of Evaluation: 08:00 - Subjective Subjective: s/p thoracentesis iv rx renewed intubated nad Objective - Vital Signs/Intake and Output Vital Signs (last 24 hours): Temp Pulse Resp BP Pulse Ox 98.1 F 68 16 120/57 L 100 03/08/18 16:00 03/08/18 18:00 03/08/18 18:00 03/08/18 16:33 03/08/18 18:00 Intake and Output: 03/08/18 03/09/18 18:59 06:59 Intake Total 1159.5 Output Total 2300 Balance -1140.5 - Medications Medications: Current Medications Albuterol/Ipratropium (Duoneb 3 Mg/0.5 Mg (3 Ml) Ud) 3 ml INH RQ6 [facility] Last Admin: 03/08/18 13:07 Dose: 3 ml Dextrose (Glutose 15) 0 gm PO ONCE PRN; Protocol PRN Reason: Hypoglycemia Protocol Docusate Sodium (Colace) 100 mg PO DAILY PRN PRN Reason: Constipation Last Admin: 03/07/18 18:21 Dose: 100 mg Folic Acid (Folic Acid) 1 mg PO DAILY [facility] Last Admin: 03/08/18 09:16 Dose: 1 mg Furosemide (Lasix) 20 mg PO DAILY [facility] Last Admin: 03/08/18 09:17 Dose: 20 mg Glucagon (Glucagen Diagnostic Kit) 1 mg IM STAT PRN; Protocol PRN Reason: Hypoglycemia Protocol Guaifenesin (Robitussin) 100 mg PO Q4H PRN PRN Reason: Cough Dexmedetomidine HCl 200 mcg/ (Sodium Chloride) 50 mls @ 3.79 mls/hr IV TITR PRN; Protocol PRN Reason: Agitation Last Titration: 03/08/18 13:00 Dose: 0.3 mcg/kg/hr, 5.69 mls/hr Piperacillin Sod/Tazobactam Sod (Zosyn 3.375 Gm Iv Premix) 3.375 gm in 50 mls @ 100 mls/hr IVPB Q6H [facility]; Protocol Last Admin: 03/08/18 17:51 Dose: 100 mls/hr Lactobacillus Acidophilus (Bacid Acidophilus) 1 cap PO BID [facility] Last Admin: 03/08/18 17:51 Dose: 1 cap Lorazepam (Ativan) 1 mg IVP Q6H PRN PRN Reason: Agitation Last Admin: 03/07/18 14:29 Dose: 1 mg Multivitamins (Hexavitamin) 1 tab PO DAILY [facility] Last Admin: 03/08/18 09:17 Dose: 1 tab Pantoprazole Sodium (Protonix Susp) 40 mg PO 0600 [facility] Last Admin: 03/08/18 06:41 Dose: 40 mg Potassium Phos/Sodium Phos (Neutra-Phos) 1 pkt PO BID [facility] Last Admin: 03/08/18 17:51 Dose: 1 pkt Spironolactone (Aldactone) 50 mg PO DAILY [facility] Thiamine HCl (Vitamin B1 Tab) 100 mg PO BID [facility] Last Admin: 03/08/18 17:51 Dose: 100 mg - Labs Labs: 03/08/18 05:52 03/08/18 05:53 PT 20.6 SECONDS (9.7-12.2) H 03/07/18 06:32 INR 1.9 03/07/18 06:32 APTT 37 SECONDS (21-34) H 03/05/18 05:51 - Constitutional Appears: Confused, Cachectic, Chronically Ill - Head Exam Head Exam: NORMOCEPHALIC - Eye Exam Eye Exam: absent: Scleral icterus - ENT Exam ENT Exam: Mucous Membranes Dry - Neck Exam Neck Exam: absent: Lymphadenopathy - Respiratory Exam Respiratory Exam: Decreased Breath Sounds, Rhonchi - Cardiovascular Exam Cardiovascular Exam: REGULAR RHYTHM - GI/Abdominal Exam GI & Abdominal Exam: Distended, Soft Assessment and Plan (1) Pneumonia Status: Acute (2) Sepsis Status: Acute (3) Subdural hemorrhage Status: Acute (4) Alcohol abuse with intoxication Status: Acute (5) Chronic venous stasis dermatitis Status: Acute
--- NOTE | 2018-03-08 22:42 | CP.PCM.PN ---
Subjective - Date & Time of Evaluation Date of Evaluation: 03/08/18 Time of Evaluation: 19:45 - Subjective Subjective: Medical Attending Note: Patient seen and examined. Patient is intubated, but can follow while on low dose Precedex. Unable to ROS secondary to clinical condition. Discussed with Rn, patient had a bowel movement. Patient tried on CPAP trials, increased secretions, and became tachypneic. Objective - Vital Signs/Intake and Output Vital Signs (last 24 hours): Temp Pulse Resp BP Pulse Ox 98.1 F 68 16 120/57 L 100 03/08/18 16:00 03/08/18 18:00 03/08/18 18:00 03/08/18 16:33 03/08/18 18:00 Intake and Output: 03/08/18 03/09/18 18:59 06:59 Intake Total 1159.5 Output Total 2300 Balance -1140.5 - Medications Medications: Current Medications Albuterol/Ipratropium (Duoneb 3 Mg/0.5 Mg (3 Ml) Ud) 3 ml INH RQ6 [facility] Last Admin: 03/08/18 20:22 Dose: 3 ml Dextrose (Glutose 15) 0 gm PO ONCE PRN; Protocol PRN Reason: Hypoglycemia Protocol Docusate Sodium (Colace) 100 mg PO DAILY PRN PRN Reason: Constipation Last Admin: 03/07/18 18:21 Dose: 100 mg Folic Acid (Folic Acid) 1 mg PO DAILY [facility] Last Admin: 03/08/18 09:16 Dose: 1 mg Furosemide (Lasix) 20 mg PO DAILY [facility] Last Admin: 03/08/18 09:17 Dose: 20 mg Glucagon (Glucagen Diagnostic Kit) 1 mg IM STAT PRN; Protocol PRN Reason: Hypoglycemia Protocol Guaifenesin (Robitussin) 100 mg PO Q4H PRN PRN Reason: Cough Dexmedetomidine HCl 200 mcg/ (Sodium Chloride) 50 mls @ 3.79 mls/hr IV TITR PRN; Protocol PRN Reason: Agitation Last Titration: 03/08/18 13:00 Dose: 0.3 mcg/kg/hr, 5.69 mls/hr Piperacillin Sod/Tazobactam Sod (Zosyn 3.375 Gm Iv Premix) 3.375 gm in 50 mls @ 100 mls/hr IVPB Q6H [facility]; Protocol Last Admin: 03/08/18 17:51 Dose: 100 mls/hr Lactobacillus Acidophilus (Bacid Acidophilus) 1 cap PO BID [facility] Last Admin: 03/08/18 17:51 Dose: 1 cap Lorazepam (Ativan) 1 mg IVP Q6H PRN PRN Reason: Agitation Last Admin: 03/07/18 14:29 Dose: 1 mg Multivitamins (Hexavitamin) 1 tab PO DAILY [facility] Last Admin: 03/08/18 09:17 Dose: 1 tab Pantoprazole Sodium (Protonix Susp) 40 mg PO 0600 [facility] Last Admin: 03/08/18 06:41 Dose: 40 mg Potassium Phos/Sodium Phos (Neutra-Phos) 1 pkt PO BID [facility] Last Admin: 03/08/18 17:51 Dose: 1 pkt Spironolactone (Aldactone) 50 mg PO DAILY [facility] Thiamine HCl (Vitamin B1 Tab) 100 mg PO BID [facility] Last Admin: 03/08/18 17:51 Dose: 100 mg - Labs Labs: 03/08/18 05:52 03/08/18 05:53 PT 20.6 SECONDS (9.7-12.2) H 03/07/18 06:32 INR 1.9 03/07/18 06:32 APTT 37 SECONDS (21-34) H 03/05/18 05:51 - Constitutional Appears: Chronically Ill - Head Exam Head Exam: NORMAL INSPECTION Additional comments: intubated - Eye Exam Eye Exam: EOMI, PERRL - ENT Exam ENT Exam: Mucous Membranes Dry - Respiratory Exam Respiratory Exam: Decreased Breath Sounds, Rales, Rhonchi, NORMAL BREATHING PATTERN. absent: Respiratory Distress Additional comments: intubated - Cardiovascular Exam Cardiovascular Exam: REGULAR RHYTHM, +S1, +S2 - GI/Abdominal Exam GI & Abdominal Exam: Soft, Normal Bowel Sounds. absent: Distended, Firm, Guarding, Rigid, Tenderness, Hyperactive Bowel Sounds, Rebound - Extremities Exam Extremities Exam: absent: Pedal Edema, Tenderness Additional comments: scds b/l chronic venous stasis changes trace edema - Neurological Exam Neurological Exam: Alert, Awake - Skin Skin Exam: Dry, Intact, Warm Assessment and Plan (1) Sepsis Status: Acute (2) Subdural hemorrhage Status: Acute (3) Electrolyte imbalance Status: Acute (4) Pneumonia Status: Acute (5) Alcohol abuse Status: Acute (6) Chronic venous stasis dermatitis Status: Acute (7) Urinary tract infection Status: Acute (8) Alcoholic cirrhosis Status: Acute (9) Prophylactic measure Status: Acute Attending/Attestation - Attestation I have personally seen and examined this patient.: Yes I have fully participated in the care of the patient.: Yes I have reviewed all pertinent clinical information, including history, physical exam and plan: Yes Notes (Text): Assessment/Plan 1) Acute Respiratory Failure RLL Infiltrate/Bilateral Pleural Effusions (Large on Right and Moderate on Left) Urinary Tract Infection Assessment/Plan * CT Chest 02/28/18: large right and moderate left pleural effusions and associated consolidations, lingular infiltrate, probable bulla in the right upper lobe however small loculated penumothorax is not excluded, severe diffuse hepatic steatotosis, question hepatic mass versus more focal fatty infiltration involving a large region of the medial upper liver, small perhepatic and persplenic ascites. * CT Chest (03/03/18): stable large bilateral pleural effusions with worsening bilateral infiltrates with areas of consolidations in the upper lung zones as well as compressive atelectasis at the lung bases * s/p intubation 03/03/18 * Chest xray (03/07/18): stable bilateral infiltrates right greater than left. Stable position of support apparatus. * s/p thoracentesis 03/07/18 (right side) * Elevated WBC 2078.0, RBC 2708.0, Total Cell count: 11, Neutrophils: 23.0 * pleural fluid: no growth after 24hours * Chest xray (03/07/18): status post right thoracentesis with decrease in right pleural effusion and commensurate re-expansion right lung. no pneumothorax. * Vancomycin 1 gm IV Q8H (Start 03/03-): elevated trough 28.3; hold dose; no therapeutoc * sputum culture: no growth * may d/c if not MRSA * MRCA not detected * Zosyn 3.375 gm IV Q6H (02/27/18-present) * Blood Culture 02/27/18: negative to date * Urine Culture 02/27/18: Enterococcus Faecalis sensitive to Vancomycin, Ampicillin, and PCN * Urine culture 03/03/18: no growth * Sputum culture 03/03/18: normal * Myocplasma IGM: negative * Legionella: negative * HIV nonreactive * ProcalcitoninL 0.43 2). Electrolyte imbalances Assessment/Plan * Repleted 3). Hypothermia-->resolved 4). Subdural Hematoma * Neurology (Dr. Loving) on board * Neurosurgery (Dr. Schmitt) on board * CT Head 02/28/18 x 2: small left sided subdural hematoma which has increased in size slightly, small right sided hygroma, mild mass effect with compression of both cerebral hemispheres, mild chronic periventricular white matter ischemic changes, mild generalized volume loss * CT Head and Neck 02/27/18: tiny calcified plaque left carotid bifurcation, NO evidence of large aneurysm/vascular malformation * Seen by Neurosurgery Dr. Coleman 02/18/18: no surgical intervention warranted and will need repeat CT Head in 1 week * CT head (03/02/18): previously noted small left sided acute subdural hematoma has continues to undergo evoluation and now appeats hyodense small but very slightly larger right sided subudral hygroma or chronic subdural hematoma. Extra axial collections continue to exert nerly symmetic mass effect on both cerebral hemispheres with compressions of overlying sulci and ventricles * CT (03/03/18): b/l subdural hematoma appear slightly heterogenous but mostly hypodense consistent with continued evolution * Patient unable to get MRI; patient is intubated * Per neurosurgery, not candidate for drainage; repeat CT head in one week * Repeat CT head 03/13 * NOT acandidate for basically elective drainage SDHs (03/06/18) 5). Alcohol Abuse Cirrhosis * Upon exam 02/28/18: evidence of tremors of the upper body, aware of month and year and president * Patient is on Precedex * d/c ativan taper to prevent oversedation * Abdominal US: nodular hepatic contour consistent with cirrhosis. Echogenic marino er may be seen in setting of hepatic parenchymal disease of fatty infiltation, small ascites, gallstones. * Monitor * Ammonia on admission normal * Folic acid 1mg PO daily * Thiamine 100mg PO BID * MVI 1 tab PO daily 6). Anemia Likely Secondary to Hx Alcohol Abuse * Monitor HgB/Hct * Vitamin B12 normal at 856 * Folate normal at 3.3 * Iron Studies: Total Iron at 117, % Saturation 55, Ferritin 689, TIBC low at 212 * Patient is Cirrhotic per Ab US 7). Thrombocytopenia Likely Secondary to Hx Alcohol Abuse * Has not received anticoagulation secondary to subdural hematoma * patient is cirrhotic per US 8). Elevated LFTs Likely Secondary to Hx Alcohol Abuse * Abdominal U/S 02/27/18: nodular hepatic contour consistent with cirrhosis, echogenic liver may be seen in the setting of hepatic parynchymal disease or fatty infiltration, small ascites, gallstones * Hepatitis Panel 02/27/18: negative * HIV 4th Generation 02/27/18: negative 9). Hyponatremia (resolved) * nephrology (Dr. Taylor) on consult-->help appreciated * Agree with IV NS, correction of electrolyte abnormalites * Advanced GT feeds as tolerated 10). Elevated CPK (resolved) * normal at 133 11). Prophylaxis * NO anticoagulation considering the Subdural Hematoma, Anemia, Thrombocytopenia * SCDS b/l * NO PPI/H2 Antagonists indicated at this time * Venous dopplers negative * intubated on 03/03/18 * Thoracentesis 03/07/18 Disposition: Vent management per ICU; patient was intubated on 03/03 by ICU for worsening breathe. Patient undergoing CPAP trials, however he has secretions and becomes tachypnic. s/p thoracentesis on 03/07/18. Pleural culture: no growth. patient is not neurosurgical candidate f/u CT head (03/14)
[2018-03-09] MEDS: Albuterol-Ipratrop 3 mg / 0.5 (3 ml) UD INH SCH ×3 (01:10→21:05)
[2018-03-09] MEDS: Piperacill/Tazo 3.375gm in Dex 3.375 GM/50 ML BAG IVPB SCH ×4 (01:31→17:50)
[2018-03-09 04:46] LABS: ARTERIAL BLOOD GAS HCO3 23.2 mmol/L (21-28); ARTERIAL BLOOD GAS HEMOGLOBIN 16.8 g/dL (11.7-17.4); ARTERIAL BLOOD GAS O2 SAT 100.2 % (95-98); ARTERIAL BLOOD GAS PCO2 33 mm/Hg (35-45); ARTERIAL BLOOD GAS PH 7.42 (7.35-7.45); ARTERIAL BLOOD GAS PO2 140 mm/Hg (80-100); ARTERIAL BLOOD GAS TCO2 22.4 mmol/L (22-28)
[2018-03-09] MEDS: Pantoprazole 40 mg Susp UD PO SCH (05:34)
[2018-03-09] MEDS: Dexmedetomidine Hydrochloride 200 MCG in Sodium Chloride 0.9% 48 ML IV PRN ×2 (05:52→13:01)
[2018-03-09 06:23] LABS: BASO # 0.1 K/uL (0.0-0.2); EOS # 0.1 K/uL (0.0-0.7); EOS % 1.1 % (0.0-4.0); HEMOGLOBIN 7.8 g/dL (12.0-18.0); MEAN CORPUSCULAR HEMOGLOBIN 35.4 pg (27.0-31.0); MEAN CORPUSCULAR HGB CONC 34.7 g/dL (33.0-37.0); MEAN PLATELET VOLUME 10.6 fL (7.2-11.7); MONO # 0.7 K/uL (0.0-0.8); MONO % 8.6 % (0.0-10.0); NEUT # 6.5 K/uL (1.8-7.0); NEUT % 77.3 % (50.0-75.0); RBC 2.22 Mil/uL (4.40-5.90); RED CELL DISTRIBUTION WIDTH 20.2 % (11.5-14.5); WHITE BLOOD COUNT 8.5 K/uL (4.8-10.8)
[2018-03-09 06:28] LABS: INR 1.8; PROTHROMBIN TIME 19.3 SECONDS (9.7-12.2)
[2018-03-09 06:38] LABS: ALB/GLOB RATIO 0.6 (1.0-2.1); ALBUMIN 2.4 g/dL (3.5-5.0); ALT/SGPT 46 U/L (21-72); AST/SGOT 104 U/L (17-59); BLOOD UREA NITROGEN 15 mg/dL (9-20); GFR NON-AFRICAN AMERICAN > 60
--- NOTE | 2018-03-09 08:14 | CP.PCM.PN ---
Subjective - Date & Time of Evaluation Date of Evaluation: 03/09/18 Time of Evaluation: 08:10 - Subjective Subjective: Remains vented; s/p CPAP trial [id number] K low- aldactone started alert Objective - Vital Signs/Intake and Output Vital Signs (last 24 hours): Temp Pulse Resp BP Pulse Ox 97.8 F 66 16 124/72 100 03/09/18 08:00 03/09/18 08:00 03/09/18 08:00 03/09/18 07:58 03/09/18 08:00 Intake and Output: 03/09/18 03/09/18 06:59 18:59 Intake Total 707.7 49.5 Output Total 300 Balance 407.7 49.5 - Medications Medications: Current Medications Albuterol/Ipratropium (Duoneb 3 Mg/0.5 Mg (3 Ml) Ud) 3 ml INH RQ6 [facility] Last Admin: 03/09/18 01:10 Dose: 3 ml Dextrose (Glutose 15) 0 gm PO ONCE PRN; Protocol PRN Reason: Hypoglycemia Protocol Docusate Sodium (Colace) 100 mg PO DAILY PRN PRN Reason: Constipation Last Admin: 03/07/18 18:21 Dose: 100 mg Folic Acid (Folic Acid) 1 mg PO DAILY [facility] Last Admin: 03/08/18 09:16 Dose: 1 mg Furosemide (Lasix) 20 mg PO DAILY [facility] Last Admin: 03/08/18 09:17 Dose: 20 mg Glucagon (Glucagen Diagnostic Kit) 1 mg IM STAT PRN; Protocol PRN Reason: Hypoglycemia Protocol Guaifenesin (Robitussin) 100 mg PO Q4H PRN PRN Reason: Cough Dexmedetomidine HCl 200 mcg/ (Sodium Chloride) 50 mls @ 3.79 mls/hr IV TITR PRN; Protocol PRN Reason: Agitation Last Admin: 03/09/18 05:52 Dose: 0.5 mcg/kg/hr, 9.48 mls/hr Piperacillin Sod/Tazobactam Sod (Zosyn 3.375 Gm Iv Premix) 3.375 gm in 50 mls @ 100 mls/hr IVPB Q6H [facility]; Protocol Last Admin: 03/09/18 05:34 Dose: 100 mls/hr Lactobacillus Acidophilus (Bacid Acidophilus) 1 cap PO BID [facility] Last Admin: 03/08/18 17:51 Dose: 1 cap Lorazepam (Ativan) 1 mg IVP Q6H PRN PRN Reason: Agitation Last Admin: 03/07/18 14:29 Dose: 1 mg Multivitamins (Hexavitamin) 1 tab PO DAILY [facility] Last Admin: 03/08/18 09:17 Dose: 1 tab Pantoprazole Sodium (Protonix Susp) 40 mg PO 0600 [facility] Last Admin: 03/09/18 05:34 Dose: 40 mg Potassium Phos/Sodium Phos (Neutra-Phos) 1 pkt PO BID [facility] Last Admin: 03/08/18 17:51 Dose: 1 pkt Spironolactone (Aldactone) 50 mg PO DAILY [facility] Thiamine HCl (Vitamin B1 Tab) 100 mg PO BID [facility] Last Admin: 03/08/18 17:51 Dose: 100 mg - Labs Labs: 03/09/18 06:15 03/09/18 06:12 PT 19.3 SECONDS (9.7-12.2) H 03/09/18 06:21 INR 1.8 03/09/18 06:21 APTT 37 SECONDS (21-34) H 03/05/18 05:51 - Constitutional Appears: No Acute Distress, Chronically Ill - Head Exam Head Exam: ATRAUMATIC, NORMAL INSPECTION - Eye Exam Eye Exam: EOMI, Normal appearance - Neck Exam Neck Exam: Normal Inspection. absent: Tenderness - Respiratory Exam Respiratory Exam: Clear to Ausculation Bilateral, Respiratory Distress - Cardiovascular Exam Cardiovascular Exam: REGULAR RHYTHM, +S1 - GI/Abdominal Exam GI & Abdominal Exam: Soft. absent: Tenderness - Neurological Exam Neurological Exam: Awake, CN II-XII Intact - Skin Skin Exam: Dry, Warm Assessment and Plan (1) Respiratory failure Status: Acute (2) Alcoholic cirrhosis Status: Acute (3) Hyponatremia syndrome Status: Acute (4) Subdural hemorrhage Status: Acute (5) Alcohol abuse with intoxication Status: Acute (6) Electrolyte imbalance Status: Acute - Assessment and Plan (Free Text) Plan: replete K continue aldactone; vent management
--- NOTE | 2018-03-09 08:22 | CP.PCM.PN ---
Subjective - Date & Time of Evaluation Date of Evaluation: 03/09/18 Time of Evaluation: 08:10 - Subjective Subjective: Medical Attending Note; Patient seen and examined this morning. Patient is awake and alert. no family present at bedside. Patient is intubated. No pain but is aware of the ET tube. unable to ROS. Objective - Vital Signs/Intake and Output Vital Signs (last 24 hours): Temp Pulse Resp BP Pulse Ox 97.8 F 66 16 124/72 100 03/09/18 08:00 03/09/18 08:00 03/09/18 08:00 03/09/18 07:58 03/09/18 08:00 Intake and Output: 03/09/18 03/09/18 06:59 18:59 Intake Total 707.7 49.5 Output Total 300 Balance 407.7 49.5 - Medications Medications: Current Medications Albuterol/Ipratropium (Duoneb 3 Mg/0.5 Mg (3 Ml) Ud) 3 ml INH RQ6 [facility] Last Admin: 03/09/18 01:10 Dose: 3 ml Dextrose (Glutose 15) 0 gm PO ONCE PRN; Protocol PRN Reason: Hypoglycemia Protocol Docusate Sodium (Colace) 100 mg PO DAILY PRN PRN Reason: Constipation Last Admin: 03/07/18 18:21 Dose: 100 mg Folic Acid (Folic Acid) 1 mg PO DAILY [facility] Last Admin: 03/08/18 09:16 Dose: 1 mg Furosemide (Lasix) 20 mg PO DAILY [facility] Last Admin: 03/08/18 09:17 Dose: 20 mg Glucagon (Glucagen Diagnostic Kit) 1 mg IM STAT PRN; Protocol PRN Reason: Hypoglycemia Protocol Guaifenesin (Robitussin) 100 mg PO Q4H PRN PRN Reason: Cough Dexmedetomidine HCl 200 mcg/ (Sodium Chloride) 50 mls @ 3.79 mls/hr IV TITR PRN; Protocol PRN Reason: Agitation Last Admin: 03/09/18 05:52 Dose: 0.5 mcg/kg/hr, 9.48 mls/hr Piperacillin Sod/Tazobactam Sod (Zosyn 3.375 Gm Iv Premix) 3.375 gm in 50 mls @ 100 mls/hr IVPB Q6H [facility]; Protocol Last Admin: 03/09/18 05:34 Dose: 100 mls/hr Potassium Chloride (Potassium Chloride 20 Meq/100 Ml) 20 meq in 100 mls @ 50 mls/hr IVPB ONCE ONE Stop: 03/09/18 10:13 Lactobacillus Acidophilus (Bacid Acidophilus) 1 cap PO BID [facility] Last Admin: 03/08/18 17:51 Dose: 1 cap Lorazepam (Ativan) 1 mg IVP Q6H PRN PRN Reason: Agitation Last Admin: 03/07/18 14:29 Dose: 1 mg Multivitamins (Hexavitamin) 1 tab PO DAILY [facility] Last Admin: 03/08/18 09:17 Dose: 1 tab Pantoprazole Sodium (Protonix Susp) 40 mg PO 0600 [facility] Last Admin: 03/09/18 05:34 Dose: 40 mg Potassium Phos/Sodium Phos (Neutra-Phos) 1 pkt PO BID [facility] Last Admin: 03/08/18 17:51 Dose: 1 pkt Spironolactone (Aldactone) 50 mg PO DAILY [facility] Thiamine HCl (Vitamin B1 Tab) 100 mg PO BID [facility] Last Admin: 03/08/18 17:51 Dose: 100 mg - Labs Labs: 03/09/18 06:15 03/09/18 06:12 PT 19.3 SECONDS (9.7-12.2) H 03/09/18 06:21 INR 1.8 03/09/18 06:21 APTT 37 SECONDS (21-34) H 03/05/18 05:51 - Constitutional Appears: Non-toxic, No Acute Distress - Head Exam Head Exam: NORMAL INSPECTION - Eye Exam Eye Exam: EOMI - ENT Exam ENT Exam: Mucous Membranes Moist - Respiratory Exam Respiratory Exam: Decreased Breath Sounds, Rales, Rhonchi (less), NORMAL BREATHING PATTERN - Cardiovascular Exam Cardiovascular Exam: REGULAR RHYTHM, +S1, +S2 - GI/Abdominal Exam GI & Abdominal Exam: Soft, Normal Bowel Sounds. absent: Distended, Firm, Guarding, Rigid, Tenderness, Rebound - Extremities Exam Extremities Exam: Pedal Edema (trace b/l) - Neurological Exam Neurological Exam: Alert, Awake - Skin Skin Exam: Dry, Intact, Normal Color, Warm Additional comments: chronic venous stasis b/l Assessment and Plan (1) Sepsis Status: Acute (2) Subdural hemorrhage Status: Acute (3) Electrolyte imbalance Status: Acute (4) Pneumonia Status: Acute (5) Alcohol abuse Status: Acute (6) Chronic venous stasis dermatitis Status: Acute (7) Urinary tract infection Status: Acute (8) Alcoholic cirrhosis Status: Acute (9) Prophylactic measure Status: Acute Attending/Attestation - Attestation I have personally seen and examined this patient.: Yes I have fully participated in the care of the patient.: Yes I have reviewed all pertinent clinical information, including history, physical exam and plan: Yes Notes (Text): Order chest xray today vent management per ICU. potassium repleted by nephrology Assessment/Plan 1) Acute Respiratory Failure RLL Infiltrate/Bilateral Pleural Effusions (Large on Right and Moderate on Left) Urinary Tract Infection Assessment/Plan * CT Chest 02/28/18: large right and moderate left pleural effusions and associated consolidations, lingular infiltrate, probable bulla in the right upper lobe however small loculated penumothorax is not excluded, severe d iffuse hepatic steatotosis, question hepatic mass versus more focal fatty infiltration involving a large region of the medial upper liver, small perhepatic and persplenic ascites. * CT Chest (03/03/18): stable large bilateral pleural effusions with worsening bilateral infiltrates with areas of consolidations in the upper lung zones as well as compressive atelectasis at the lung bases * s/p intubation 03/03/18 * Chest xray (03/07/18): stable bilateral infiltrates right greater than left. Stable position of support apparatus. * s/p thoracentesis 03/07/18 (right side) * Elevated WBC 2078.0, RBC 2708.0, Total Cell count: 11, Neutrophils: 23.0 * pleural fluid: no growth after 24hours * Chest xray (03/07/18): status post right thoracentesis with decrease in right pleural effusion and commensurate re-expansion right lung. no pneumothorax. * Vancomycin 1 gm IV Q8H (Start 03/03-): elevated trough 28.3; hold dose; no therapeutoc * sputum culture: no growth * may d/c if not MRSA * MRCA not detected * Zosyn 3.375 gm IV Q6H (02/27/18-present) * Blood Culture 02/27/18: negative to date * Urine Culture 02/27/18: Enterococcus Faecalis sensitive to Vancomycin, Ampicillin, and PCN * Urine culture 03/03/18: no growth * Sputum culture 03/03/18: normal * Myocplasma IGM: negative * Legionella: negative * HIV nonreactive * ProcalcitoninL 0.43 2). Electrolyte imbalances Assessment/Plan * Repleted 3). Hypothermia-->resolved 4). Subdural Hematoma * Neurology (Dr. Loving) on board * Neurosurgery (Dr. Schmitt) on board * CT Head 02/28/18 x 2: small left sided subdural hematoma which has increased in size slightly, small right sided hygroma, mild mass effect with compression of both cerebral hemispheres, mild chronic periventricular white matter ischemic changes, mild generalized volume loss * CT Head and Neck 02/27/18: tiny calcified plaque left carotid bifurcation, NO evidence of large aneurysm/vascular malformation * Seen by Neurosurgery Dr. Coleman 02/18/18: no surgical intervention warranted and will need repeat CT Head in 1 week * CT head (03/02/18): previously noted small left sided acute subdural hematoma has continues to undergo evoluation and now appeats hyodense small but very slightly larger right sided subudral hygroma or chronic subdural hematoma. Extra axial collections continue to exert nerly symmetic mass effect on both cerebral hemispheres with compressions of overlying sulci and ventricles * CT (03/03/18): b/l subdural hematoma appear slightly heterogenous but mostly hypodense consistent with continued evolution * Patient unable to get MRI; patient is intubated * Per neurosurgery, not candidate for drainage; repeat CT head in one week * Repeat CT head 03/13 * NOT acandidate for basically elective drainage SDHs (03/06/18) 5). Alcohol Abuse Cirrhosis * Upon exam 02/28/18: evidence of tremors of the upper body, aware of month and year and president * Patient is on Precedex * d/c ativan taper to prevent oversedation * Abdominal US: nodular hepatic contour consistent with cirrhosis. Echogenic liver may be seen in setting of hepatic parenchymal disease of fatty infiltation, small ascites, gallstones. * Monitor * Ammonia on admission normal * Folic acid 1mg PO daily * Thiamine 100mg PO BID * MVI 1 tab PO daily 6). Anemia Likely Secondary to Hx Alcohol Abuse * Monitor HgB/Hct * Vitamin B12 normal at 856 * Folate normal at 3.3 * Iron Studies: Total Iron at 117, % Saturation 55, Ferritin 689, TIBC low at 212 * Patient is Cirrhotic per Ab US 7). Thrombocytopenia Likely Secondary to Hx Alcohol Abuse * Has not received anticoagulation secondary to subdural hematoma * patient is cirrhotic per US 8). Elevated LFTs Likely Secondary to Hx Alcohol Abuse * Abdominal U/S 02/27/18: nodular hepatic contour consistent with cirrhosis, echogenic liver may be seen in the setting of hepatic parynchymal disease or fatty infiltration, small ascites, gallstones * Hepatitis Panel 02/27/18: negative * HIV 4th Generation 02/27/18: negative 9). Hyponatremia (resolved) * nephrology (Dr. Taylor) on consult-->help appreciated * Agree with IV NS, correction of electrolyte abnormalites * Advanced GT feeds as tolerated 10). Elevated CPK (resolved) * normal at 133 11). Prophylaxis * NO anticoagulation considering the Subdural Hematoma, Anemia, Thrombocytopenia * SCDS b/l * NO PPI/H2 Antagonists indicated at this time * Venous dopplers negative * intubated on 03/03/18 * Thoracentesis 03/07/18 Disposition: Vent management per ICU; patient was intubated on 03/03 by ICU for worsening breathe. Patient undergoing CPAP trials, however he has secretions and becomes tachypnic. s/p thoracentesis on 03/07/18. Pleural culture: no growth. patient is not neurosurgical candidate f/u CT head (03/14)
[2018-03-09] MEDS: Magnesium Sulfate 1 gm in D5W 1 GM/100 ML BAG IVPB SCH ×2 (10:17→11:41)
[2018-03-09] MEDS: Potassium Chloride 20 mEq/15 ml LIQ UD PO SCH ×3 (10:17→21:40)
[2018-03-09] MEDS: Multiple Vitamins Tab PO SCH (10:19)
[2018-03-09] MEDS: MethylPREDNISolone 40 mg Vial IVP SCH ×2 (10:19→17:53)
[2018-03-09] MEDS: Potassium & Sodium Phosphate PO SCH ×2 (10:19→17:50)
[2018-03-09] MEDS: Lactobacillus Acidophilus 500 MU Cap PO SCH ×2 (10:22→18:07)
--- NOTE | 2018-03-09 13:30 | RAD ---
Date of service: 03/09/2018 HISTORY: pleural effusion, pneumonia COMPARISON: Comparison is made with 03/08/2018 FINDINGS: LUNGS: The ET tube is seen at appropriate position. Interval mild improvement in the previously noted bilateral patchy opacities larger on the right since the prior study. PLEURA: No significant pleural effusion identified, no pneumothorax apparent. CARDIOVASCULAR: No aortic atherosclerotic calcification present. Normal cardiac size. No pulmonary vascular congestion. OSSEOUS STRUCTURES: No significant abnormalities. VISUALIZED UPPER ABDOMEN: Mildly dilated bowel loops noted in the upper abdomen. The NG tube seen extending to the abdomen. OTHER FINDINGS: None. IMPRESSION: Interval mild improvement in the lungs since the previous exam.
--- NOTE | 2018-03-09 16:00 | CP.CCUPN ---
CCU Subjective - Physician Review Subjective (Free Text): 03/09/18 15:56 Patient seen and examined at bedside. patietn with h/o heart failure and b/l pleural effusion, tolerating CPAP, denies any cheest pain, denies any dizziness CCU Objective - Vital Signs / Intake & Output Vital Signs (Last 4 hours): Vital Signs Temp Pulse Resp BP Pulse Ox 03/09/18 15:00 63 15 100 03/09/18 14:58 64 20 124/90 96 03/09/18 14:00 61 19 99 03/09/18 13:58 60 21 118/68 96 03/09/18 13:00 56 L 16 100 03/09/18 12:58 59 L 16 128/77 03/09/18 12:00 98.2 F 57 L 17 99 03/09/18 11:58 56 L 12 117/70 95 Intake and Output (Last 8hrs): Intake & Output 03/09/18 03/09/18 03/09/18 06:59 14:59 22:59 Intake Total 486.5 682.0 Output Total 300 550 Balance 186.5 132.0 Weight 136 lb 9.6 oz Intake: IV 50 50 Intake, IV Amount 116.5 412.0 LA MIDLINE 50 LEFT FA Y 350 Left Forearm 66.5 62.0 Tube Feeding 320 120 Other 100 Output: Urine 300 550 Condom 300 250 Urine, Voided 300 Other: # Voids Urine, Voided 1 # Bowel Movements 1 - Physical Exam Head: Positive for: Atraumatic, Normocephalic Pupils: Positive for: PERRL Extroacular Muscles: Positive for: EOMI Conjunctiva: Positive for: Normal, Icteric (bilaterally ) Mouth: Positive for: Moist Mucous Membranes Neck: Positive for: Normal Range of Motion Respiratory/Chest: Positive for: Other (intubated ). Negative for: Respiratory Distress, Accessory Muscle Use Cardiovascular: Positive for: Regular Rate and Rhythm, Normal S1, S2. Negative for: Murmurs Abdomen: Positive for: Normal Bowel Sounds. Negative for: Tenderness, Distention Back: Positive for: Normal Inspection Lower Extremity: Positive for: Edema (bilaterally ), Neurovascularly Intact, Capillary Refill < 2 s. Negative for: Tenderness Neurological: Positive for: Other (more alert today to tactile, verbal stimuli) Skin: Positive for: Warm, Dry Psychiatric: Positive for: Alert - Medications Active Medications: Active Medications Generic Name Dose Route Start Last Admin Trade Name Freq PRN Reason Stop Dose Admin Albuterol/Ipratropium 3 ml 03/03/18 20:00 03/09/18 07:45 Duoneb 3 Mg/0.5 Mg (3 Ml) Ud INH 3 ml RQ6 ASHLEIGH Administration Dextrose 0 gm 02/28/18 07:44 Glutose 15 PO ONCE PRN Hypoglycemia Protocol Protocol Docusate Sodium 100 mg 03/07/18 18:00 03/07/18 18:21 Colace PO 100 mg DAILY PRN Administration Constipation Folic Acid 1 mg 03/03/18 10:00 03/09/18 10:19 Folic Acid PO 1 mg DAILY ASHLEIGH Administration Furosemide 40 mg 03/09/18 10:00 03/09/18 10:19 Lasix PO 40 mg DAILY ASHLEIGH Administration Glucagon 1 mg 02/28/18 07:44 Glucagen Diagnostic Kit IM STAT PRN Hypoglycemia Protocol Protocol Piperacillin Sod/Tazobactam Sod 3.375 gm in 50 mls @ 100 mls/hr 03/05/18 12:30 03/09/18 11:42 Zosyn 3.375 Gm Iv Premix IVPB 100 mls/hr Q6H ASHLEIGH Administration Protocol Lactobacillus Acidophilus 1 cap 02/28/18 10:00 03/09/18 10:22 Bacid Acidophilus PO 1 cap BID ASHLEIGH Administration Methylprednisolone 40 mg 03/09/18 09:30 03/09/18 10:19 Solu-Medrol IVP 03/11/18 01:31 40 mg Q8H ASHLEIGH Administration Multivitamins 1 tab 03/03/18 10:00 03/09/18 10:19 Hexavitamin PO 1 tab DAILY ASHLEIGH Administration Pantoprazole Sodium 40 mg 03/05/18 06:00 03/09/18 05:34 Protonix Susp PO 40 mg 0600 ASHLEIGH Administration Potassium Chloride 40 meq 03/09/18 09:30 03/09/18 10:17 Potassium Chloride Oral Soln PO 03/10/18 03:31 40 meq Q6H ASHLEIGH Administration Potassium Phos/Sodium Phos 1 pkt 03/07/18 10:45 03/09/18 10:19 Neutra-Phos PO 1 pkt BID ASHLEIGH Administration Spironolactone 50 mg 03/08/18 13:12 03/09/18 10:18 Aldactone PO 50 mg DAILY ASHLEIGH Administration Thiamine HCl 100 mg 03/03/18 10:00 03/09/18 10:19 Vitamin B1 Tab PO 100 mg BID ASHLEIGH Administration - Patient Studies Lab Studies: Microbiology Studies 03/07/18 15:26 Anaerobic Culture - Final Pleural Fluid NO ANAEROBES ISOLATED. 03/07/18 15:23 Gram Stain - Final Pleural Fluid Body Fluid Culture - Preliminary NO GROWTH AFTER 2 DAYS Lab Studies 03/09/18 03/09/18 03/09/18 Range/Units 11: 06:44 06:21 WBC (4.8-10.8) K/uL RBC (4.40-5.90) Mil/uL Hgb (12.0-18.0) g/dL Hct (35.0-51.0) % MCV (80.0-94.0) fL MCH (27.0-31.0) pg MCHC (33.0-37.0) g/dL RDW (11.5-14.5) % Plt Count (130-400) K/uL MPV (7.2-11.7) fL Neut % (Auto) (50.0-75.0) % Lymph % (Auto) (20.0-40.0) % Cedar % (Auto) (0.0-10.0) % Eos % (Auto) (0.0-4.0) % Baso % (Auto) (0.0-2.0) % Neut # (Auto) (1.8-7.0) K/uL Lymph # (Auto) (1.0-4.3) K/uL Cedar # (Auto) (0.0-0.8) K/uL Eos # (Auto) (0.0-0.7) K/uL Baso # (Auto) (0.0-0.2) K/uL PT 19.3 H (9.7-12.2) SECONDS INR 1.8 Puncture Site pCO2 (35-45) mm/Hg pO2 (80-100) mm/Hg HCO3 (21-28) mmol/L ABG pH (7.35-7.45) ABG Total CO2 (22-28) mmol/L ABG O2 Saturation (95-98) % ABG Base Excess (-2.0-3.0) mmol/L ABG Hemoglobin (11.7-17.4) g/dL ABG Carboxyhemoglobin (0.5-1.5) % POC ABG HHb (Measured) (0.0-5.0) % ABG Methemoglobin (0.0-3.0) % Rei Test A-a O2 Difference mm/Hg Respiratory Index Hgb O2 Saturation (95.0-98.0) % Vent Mode Mechanical Rate FiO2 % Tidal Volume PEEP Sodium (132-148) mmol/L Potassium (3.6-5.2) mmol/L Chloride (98-107) mmol/L Carbon Dioxide (22-30) mmol/L Anion Gap (10-20) BUN (9-20) mg/dL Creatinine (0.8-1.5) mg/dL Est GFR ( Amer) Est GFR (Non-Af Amer) POC Glucose (mg/dL) 134 H 104 (65-110) mg/dL Random Glucose (75-110) mg/dL Calcium (8.6-10.4) mg/dl Phosphorus (2.5-4.5) mg/dL Magnesium (1.6-2.3) mg/dL Total Bilirubin (0.2-1.3) mg/dL AST (17-59) U/L ALT (21-72) U/L Alkaline Phosphatase (38-126) U/L Total Protein (6.3-8.3) g/dL Albumin (3.5-5.0) g/dL Globulin (2.2-3.9) gm/dL Albumin/Globulin Ratio (1.0-2.1) 03/09/18 03/09/18 03/09/18 Range/Units 06:15 06:12 04:30 WBC 8.5 (4.8-10.8) K/uL RBC 2.22 L (4.40-5.90) Mil/uL Hgb 7.8 L (12.0-18.0) g/dL Hct 22.6 L (35.0-51.0) % MCV 102.0 H (80.0-94.0) fL MCH 35.4 H (27.0-31.0) pg MCHC 34.7 (33.0-37.0) g/dL RDW 20.2 H (11.5-14.5) % Plt Count 84 L (130-400) K/uL MPV 10.6 (7.2-11.7) fL Neut % (Auto) 77.3 H (50.0-75.0) % Lymph % (Auto) 12.0 L (20.0-40.0) % Cedar % (Auto) 8.6 (0.0-10.0) % Eos % (Auto) 1.1 (0.0-4.0) % Baso % (Auto) 1.0 (0.0-2.0) % Neut # (Auto) 6.5 (1.8-7.0) K/uL Lymph # (Auto) 1.0 (1.0-4.3) K/uL Cedar # (Auto) 0.7 (0.0-0.8) K/uL Eos # (Auto) 0.1 (0.0-0.7) K/uL Baso # (Auto) 0.1 (0.0-0.2) K/uL PT (9.7-12.2) SECONDS INR Puncture Site Rb pCO2 33 L (35-45) mm/Hg pO2 140 H (80-100) mm/Hg HCO3 23.2 (21-28) mmol/L ABG pH 7.42 (7.35-7.45) ABG Total CO2 22.4 (22-28) mmol/L ABG O2 Saturation 100.2 H (95-98) % ABG Base Excess -2.1 L (-2.0-3.0) mmol/L ABG Hemoglobin 16.8 (11.7-17.4) g/dL ABG Carboxyhemoglobin 2.9 H (0.5-1.5) % POC ABG HHb (Measured) -0.2 L (0.0-5.0) % ABG Methemoglobin 0.9 (0.0-3.0) % Rei Test Na A-a O2 Difference 104.0 mm/Hg Respiratory Index 0.7 Hgb O2 Saturation 96.4 (95.0-98.0) % Vent Mode Prvc Mechanical Rate 16 FiO2 40.0 % Tidal Volume 450 PEEP 5 Sodium 135 (132-148) mmol/L Potassium 3.0 L (3.6-5.2) mmol/L Chloride 102 (98-107) mmol/L Carbon Dioxide 25 (22-30) mmol/L Anion Gap 11 (10-20) BUN 15 (9-20) mg/dL Creatinine 0.8 (0.8-1.5) mg/dL Est GFR ( Amer) > 60 Est GFR (Non-Af Amer) > 60 POC Glucose (mg/dL) (65-110) mg/dL Random Glucose 113 H (75-110) mg/dL Calcium 8.0 L (8.6-10.4) mg/dl Phosphorus 3.6 (2.5-4.5) mg/dL Magnesium 1.9 (1.6-2.3) mg/dL Total Bilirubin 5.2 H (0.2-1.3) mg/dL AST 104 H (17-59) U/L ALT 46 (21-72) U/L Alkaline Phosphatase 169 H (38-126) U/L Total Protein 6.8 (6.3-8.3) g/dL Albumin 2.4 L (3.5-5.0) g/dL Globulin 4.4 H (2.2-3.9) gm/dL Albumin/Globulin Ratio 0.6 L (1.0-2.1) 03/09/18 03/08/18 Range/Units 00:50 17:26 WBC (4.8-10.8) K/uL RBC (4.40-5.90) Mil/uL Hgb (12.0-18.0) g/dL Hct (35.0-51.0) % MCV (80.0-94.0) fL MCH (27.0-31.0) pg MCHC (33.0-37.0) g/dL RDW (11.5-14.5) % Plt Count (130-400) K/uL MPV (7.2-11.7) fL Neut % (Auto) (50.0-75.0) % Lymph % (Auto) (20.0-40.0) % Cedar % (Auto) (0.0-10.0) % Eos % (Auto) (0.0-4.0) % Baso % (Auto) (0.0-2.0) % Neut # (Auto) (1.8-7.0) K/uL Lymph # (Auto) (1.0-4.3) K/uL Cedar # (Auto) (0.0-0.8) K/uL Eos # (Auto) (0.0-0.7) K/uL Baso # (Auto) (0.0-0.2) K/uL PT (9.7-12.2) SECONDS INR Puncture Site pCO2 (35-45) mm/Hg pO2 (80-100) mm/Hg HCO3 (21-28) mmol/L ABG pH (7.35-7.45) ABG Total CO2 (22-28) mmol/L ABG O2 Saturation (95-98) % ABG Base Excess (-2.0-3.0) mmol/L ABG Hemoglobin (11.7-17.4) g/dL ABG Carboxyhemoglobin (0.5-1.5) % POC ABG HHb (Measured) (0.0-5.0) % ABG Methemoglobin (0.0-3.0) % Rei Test A-a O2 Difference mm/Hg Respiratory Index Hgb O2 Saturation (95.0-98.0) % Vent Mode Mechanical Rate FiO2 % Tidal Volume PEEP Sodium (132-148) mmol/L Potassium (3.6-5.2) mmol/L Chloride (98-107) mmol/L Carbon Dioxide (22-30) mmol/L Anion Gap (10-20) BUN (9-20) mg/dL Creatinine (0.8-1.5) mg/dL Est GFR ( Amer) Est GFR (Non-Af Amer) POC Glucose (mg/dL) 109 115 H (65-110) mg/dL Random Glucose (75-110) mg/dL Calcium (8.6-10.4) mg/dl Phosphorus (2.5-4.5) mg/dL Magnesium (1.6-2.3) mg/dL Total Bilirubin (0.2-1.3) mg/dL AST (17-59) U/L ALT (21-72) U/L Alkaline Phosphatase (38-126) U/L Total Protein (6.3-8.3) g/dL Albumin (3.5-5.0) g/dL Globulin (2.2-3.9) gm/dL Albumin/Globulin Ratio (1.0-2.1) Laboratory Results - last 24 hr 03/08/18 03/09/18 03/09/18 17:26 00:50 04:30 WBC RBC Hgb Hct MCV MCH MCHC RDW Plt Count MPV Neut % (Auto) Lymph % (Auto) Cedar % (Auto) Eos % (Auto) Baso % (Auto) Neut # (Auto) Lymph # (Auto) Cedar # (Auto) Eos # (Auto) Baso # (Auto) PT INR Puncture Site Rb pCO2 33 L pO2 140 H HCO3 23.2 ABG pH 7.42 ABG Total CO2 22.4 ABG O2 Saturation 100.2 H ABG Base Excess -2.1 L ABG Hemoglobin 16.8 ABG Carboxyhemoglobin 2.9 H POC ABG HHb (Measured) -0.2 L ABG Methemoglobin 0.9 Rei Test Na A-a O2 Difference 104.0 Respiratory Index 0.7 Hgb O2 Saturation 96.4 Vent Mode Prvc Mechanical Rate 16 FiO2 40.0 Tidal Volume 450 PEEP 5 Sodium Potassium Chloride Carbon Dioxide Anion Gap BUN Creatinine Est GFR ( Amer) Est GFR (Non-Af Amer) POC Glucose (mg/dL) 115 H 109 Random Glucose Calcium Phosphorus Magnesium Total Bilirubin AST ALT Alkaline Phosphatase Total Protein Albumin Globulin Albumin/Globulin Ratio 03/09/18 03/09/18 03/09/18 06:12 06:15 06:21 WBC 8.5 RBC 2.22 L Hgb 7.8 L Hct 22.6 L MCV 102.0 H MCH 35.4 H MCHC 34.7 RDW 20.2 H Plt Count 84 L MPV 10.6 Neut % (Auto) 77.3 H Lymph % (Auto) 12.0 L Cedar % (Auto) 8.6 Eos % (Auto) 1.1 Baso % (Auto) 1.0 Neut # (Auto) 6.5 Lymph # (Auto) 1.0 Cedar # (Auto) 0.7 Eos # (Auto) 0.1 Baso # (Auto) 0.1 PT 19.3 H INR 1.8 Puncture Site pCO2 pO2 HCO3 ABG pH ABG Total CO2 ABG O2 Saturation ABG Base Excess ABG Hemoglobin ABG Carboxyhemoglobin POC ABG HHb (Measured) ABG Methemoglobin Rei Test A-a O2 Difference Respiratory Index Hgb O2 Saturation Vent Mode Mechanical Rate FiO2 Tidal Volume PEEP Sodium 135 Potassium 3.0 L Chloride 102 Carbon Dioxide 25 Anion Gap 11 BUN 15 Creatinine 0.8 Est GFR ( Amer) > 60 Est GFR (Non-Af Amer) > 60 POC Glucose (mg/dL) Random Glucose 113 H Calcium 8.0 L Phosphorus 3.6 Magnesium 1.9 Total Bilirubin 5.2 H AST 104 H ALT 46 Alkaline Phosphatase 169 H Total Protein 6.8 Albumin 2.4 L Globulin 4.4 H Albumin/Globulin Ratio 0.6 L 03/09/18 03/09/18 06:44 11:18 WBC RBC Hgb Hct MCV MCH MCHC RDW Plt Count MPV Neut % (Auto) Lymph % (Auto) Cedar % (Auto) Eos % (Auto) Baso % (Auto) Neut # (Auto) Lymph # (Auto) Cedar # (Auto) Eos # (Auto) Baso # (Auto) PT INR Puncture Site pCO2 pO2 HCO3 ABG pH ABG Total CO2 ABG O2 Saturation ABG Base Excess ABG Hemoglobin ABG Carboxyhemoglobin POC ABG HHb (Measured) ABG Methemoglobin Rei Test A-a O2 Difference Respiratory Index Hgb O2 Saturation Vent Mode Mechanical Rate FiO2 Tidal Volume PEEP Sodium Potassium Chloride Carbon Dioxide Anion Gap BUN Creatinine Est GFR ( Amer) Est GFR (Non-Af Amer) POC Glucose (mg/dL) 104 134 H Random Glucose Calcium Phosphorus Magnesium Total Bilirubin AST ALT Alkaline Phosphatase Total Protein Albumin Globulin Albumin/Globulin Ratio Fingerstick Blood Sugar Results: 134 Review of Systems - Review of Systems Systems not reviewed;Unavailable: Intubated Assessment/Plan - Assessment and Plan (Free Text) Assessment: Hypoxic respiratory failure:continue CPAP trials, RSBI 42, will extubate -b/l pleural effusoin: s/p thoracentesis -sepsis; lactic normal, continue abx, f/u cultures -continue all other home medications continue DVT/PUD ppx Patient remains hemodynamically stable tolerated Extubation - Date & Time Date: 03/09/18 Time: 16:00
[2018-03-09 16:57] LABS: ARTERIAL BLOOD GAS HCO3 25.8 mmol/L (21-28); ARTERIAL BLOOD GAS O2 SAT 99.3 % (95-98); ARTERIAL BLOOD GAS PCO2 30 mm/Hg (35-45); ARTERIAL BLOOD GAS PO2 89 mm/Hg (80-100); ARTERIAL BLOOD GAS TCO2 24.3 mmol/L (22-28)
[2018-03-09 17:02] LABS: GLUCOSE PLEURAL FLUID 129 mg/dL; LDH PLEURAL FLUID 494 U/L
[2018-03-10] MEDS: Piperacill/Tazo 3.375gm in Dex 3.375 GM/50 ML BAG IVPB SCH ×4 (00:30→18:10)
[2018-03-10] MEDS: MethylPREDNISolone 40 mg Vial IVP SCH ×3 (00:48→18:43)
[2018-03-10] MEDS: Albuterol-Ipratrop 3 mg / 0.5 (3 ml) UD INH SCH ×4 (01:14→20:10)
[2018-03-10] MEDS: Potassium Chloride 20 mEq/15 ml LIQ UD PO SCH (03:28)
[2018-03-10] MEDS: Pantoprazole 40 mg Susp UD PO SCH (06:18)
[2018-03-10 06:42] LABS: BASO % 0.1 % (0.0-2.0); HEMOGLOBIN 8.2 g/dL (12.0-18.0); LYMPH # 1.5 K/uL (1.0-4.3); LYMPH % 20.7 % (20.0-40.0); MEAN CELL VOLUME 102.7 fL (80.0-94.0); MEAN CORPUSCULAR HEMOGLOBIN 34.9 pg (27.0-31.0); MEAN PLATELET VOLUME 10.9 fL (7.2-11.7); MONO # 0.2 K/uL (0.0-0.8); MONO % 2.8 % (0.0-10.0); NEUT # 5.4 K/uL (1.8-7.0); NEUT % 76.4 % (50.0-75.0); NRBC % 0.1 % (0.0-2.0); RBC 2.35 Mil/uL (4.40-5.90); RED CELL DISTRIBUTION WIDTH 19.6 % (11.5-14.5); WHITE BLOOD COUNT 7.1 K/uL (4.8-10.8)
[2018-03-10 06:59] LABS: ALB/GLOB RATIO 0.6 (1.0-2.1); ALBUMIN 2.9 g/dL (3.5-5.0); ALT/SGPT 53 U/L (21-72); AST/SGOT 108 U/L (17-59); BLOOD UREA NITROGEN 15 mg/dL (9-20); CALCIUM 7.9 mg/dl (8.6-10.4); GFR NON-AFRICAN AMERICAN > 60
--- NOTE | 2018-03-10 07:28 | CP.CCUPN ---
<Rogers Morrow - Last Filed: 03/10/18 14:02> CCU Subjective - Physician Review Subjective (Free Text): 03/10/18 07:27 PGY-1 Critical Care Progress Note for Dr. Giraldo Patient seen and examined at bedside this AM. No acute overnight events reported. Patient clinically improved, no acute distress. Medically stable for downgrade to medicine floors. Critical Care Time Spent (in minutes): 35 CCU Objective - Vital Signs / Intake & Output Intake and Output (Last 8hrs): Intake & Output 03/09/18 03/10/18 03/10/18 22:59 06:59 14:59 Intake Total 570 370 Output Total 800 500 200 Balance -230 -130 -200 Weight 139 lb 0.16 oz Intake: Intake, IV Amount 50 50 LA MIDLINE 50 50 Oral 520 320 Output: Urine 800 500 200 Condom 200 Urine, Voided 800 500 Other: # Voids Urine, Voided 1 - Physical Exam Head: Positive for: Atraumatic, Normocephalic Pupils: Positive for: PERRL Extroacular Muscles: Positive for: EOMI Conjunctiva: Positive for: Normal, Icteric (bilaterally ) Mouth: Positive for: Moist Mucous Membranes Neck: Positive for: Normal Range of Motion Respiratory/Chest: Negative for: Respiratory Distress, Accessory Muscle Use Cardiovascular: Positive for: Regular Rate and Rhythm, Normal S1, S2. Negative for: Murmurs Abdomen: Positive for: Normal Bowel Sounds. Negative for: Tenderness, Distention Back: Positive for: Normal Inspection Lower Extremity: Positive for: Edema (bilaterally ), Neurovascularly Intact, Capillary Refill < 2 s. Negative for: Tenderness Neurological: Positive for: Other (more alert to tactile, verbal stimuli) Skin: Positive for: Warm, Dry Psychiatric: Positive for: Alert, Oriented x 3 - Medications Active Medications: Active Medications Generic Name Dose Route Start Last Admin Trade Name Freq PRN Reason Stop Dose Admin Albuterol/Ipratropium 3 ml 03/03/18 20:00 03/10/18 01:14 Duoneb 3 Mg/0.5 Mg (3 Ml) Ud INH 3 ml RQ6 ASHLEIGH Administration Dextrose 0 gm 02/28/18 07:44 Glutose 15 PO ONCE PRN Hypoglycemia Protocol Protocol Docusate Sodium 100 mg 03/07/18 18:00 03/07/18 18:21 Colace PO 100 mg DAILY PRN Administration Constipation Folic Acid 1 mg 03/03/18 10:00 03/09/18 10:19 Folic Acid PO 1 mg DAILY ASHLEIGH Administration Furosemide 40 mg 03/09/18 10:00 03/09/18 10:19 Lasix PO 40 mg DAILY ASHLEIGH Administration Glucagon 1 mg 02/28/18 07:44 Glucagen Diagnostic Kit IM STAT PRN Hypoglycemia Protocol Protocol Piperacillin Sod/Tazobactam Sod 3.375 gm in 50 mls @ 100 mls/hr 03/05/18 12:30 03/10/18 06:00 Zosyn 3.375 Gm Iv Premix IVPB 100 mls/hr Q6H ASHLEIGH Administration Protocol Lactobacillus Acidophilus 1 cap 02/28/18 10:00 03/09/18 18:07 Bacid Acidophilus PO 1 cap BID ASHLEIGH Administration Methylprednisolone 40 mg 03/09/18 09:30 03/10/18 00:48 Solu-Medrol IVP 03/11/18 01:31 40 mg Q8H ASHLEIGH Administration Multivitamins 1 tab 03/03/18 10:00 03/09/18 10:19 Hexavitamin PO 1 tab DAILY ASHLEIGH Administration Pantoprazole Sodium 40 mg 03/05/18 06:00 03/10/18 06:18 Protonix Susp PO 40 mg 0600 ASHLEIGH Administration Potassium Phos/Sodium Phos 1 pkt 03/07/18 10:45 03/09/18 17:50 Neutra-Phos PO 1 pkt BID ASHLEIGH Administration Spironolactone 50 mg 03/08/18 13:12 03/09/18 10:18 Aldactone PO 50 mg DAILY ASHLEIGH Administration Thiamine HCl 100 mg 03/03/18 10:00 03/09/18 17:50 Vitamin B1 Tab PO 100 mg BID ASHLEIGH Administration - Patient Studies Lab Studies: Microbiology Studies 03/09/18 12:43 Gram Stain - Final Sputum Induced 03/07/18 15:26 Anaerobic Culture - Final Pleural Fluid NO ANAEROBES ISOLATED. 03/07/18 15:23 Gram Stain - Final Pleural Fluid Body Fluid Culture - Preliminary NO GROWTH AFTER 2 DAYS Lab Studies 03/10/18 03/10/18 03/10/18 Range/Units 06:33 06:33 06:32 WBC 7.1 (4.8-10.8) K/uL RBC 2.35 L (4.40-5.90) Mil/uL Hgb 8.2 L (12.0-18.0) g/dL Hct 24.1 L (35.0-51.0) % MCV 102.7 H (80.0-94.0) fL MCH 34.9 H (27.0-31.0) pg MCHC 34.0 (33.0-37.0) g/dL RDW 19.6 H (11.5-14.5) % Plt Count 108 L D (130-400) K/uL MPV 10.9 (7.2-11.7) fL Neut % (Auto) 76.4 H (50.0-75.0) % Lymph % (Auto) 20.7 (20.0-40.0) % Perkins % (Auto) 2.8 (0.0-10.0) % Eos % (Auto) 0.0 (0.0-4.0) % Baso % (Auto) 0.1 (0.0-2.0) % Neut # (Auto) 5.4 (1.8-7.0) K/uL Lymph # (Auto) 1.5 (1.0-4.3) K/uL Perkins # (Auto) 0.2 (0.0-0.8) K/uL Eos # (Auto) 0.0 (0.0-0.7) K/uL Baso # (Auto) 0.0 (0.0-0.2) K/uL Puncture Site pCO2 (35-45) mm/Hg pO2 (80-100) mm/Hg HCO3 (21-28) mmol/L ABG pH (7.35-7.45) ABG Total CO2 (22-28) mmol/L ABG O2 Saturation (95-98) % ABG Base Excess (-2.0-3.0) mmol/L Rei Test ABG Potassium (3.6-5.2) mmol/L A-a O2 Difference mm/Hg Respiratory Index Sodium 136 (132-148) mmol/l Chloride 103 (98-107) mmol/L Glucose (75-110) mg/dl Lactate (0.7-2.1) mmol/L FiO2 % Potassium 4.5 (3.6-5.2) mmol/L Carbon Dioxide 24 (22-30) mmol/L Anion Gap 13 (10-20) BUN 15 (9-20) mg/dL Creatinine 0.7 L (0.8-1.5) mg/dL Est GFR ( Amer) > 60 Est GFR (Non-Af Amer) > 60 POC Glucose (mg/dL) 138 H (65-110) mg/dL Random Glucose 141 H (75-110) mg/dL Calcium 7.9 L (8.6-10.4) mg/dl Phosphorus 2.6 (2.5-4.5) mg/dL Magnesium 1.9 (1.6-2.3) mg/dL Total Bilirubin 5.7 H (0.2-1.3) mg/dL AST 108 H (17-59) U/L ALT 53 (21-72) U/L Alkaline Phosphatase 141 H (38-126) U/L Total Protein 7.6 (6.3-8.3) g/dL Albumin 2.9 L D (3.5-5.0) g/dL Globulin 4.7 H (2.2-3.9) gm/dL Albumin/Globulin Ratio 0.6 L (1.0-2.1) Arterial Blood Potassium (3.6-5.2) mmol/L Pleural Total Protein g/dL Pleural LDH U/L Pleural Glucose mg/dL 03/09/18 03/09/18 03/09/18 Range/Units 23:53 17:45 16:52 WBC (4.8-10.8) K/uL RBC (4.40-5.90) Mil/uL Hgb (12.0-18.0) g/dL Hct (35.0-51.0) % MCV (80.0-94.0) fL MCH (27.0-31.0) pg MCHC (33.0-37.0) g/dL RDW (11.5-14.5) % Plt Count (130-400) K/uL MPV (7.2-11.7) fL Neut % (Auto) (50.0-75.0) % Lymph % (Auto) (20.0-40.0) % Perkins % (Auto) (0.0-10.0) % Eos % (Auto) (0.0-4.0) % Baso % (Auto) (0.0-2.0) % Neut # (Auto) (1.8-7.0) K/uL Lymph # (Auto) (1.0-4.3) K/uL Perkins # (Auto) (0.0-0.8) K/uL Eos # (Auto) (0.0-0.7) K/uL Baso # (Auto) (0.0-0.2) K/uL Puncture Site Rra pCO2 30 L (35-45) mm/Hg pO2 89 (80-100) mm/Hg HCO3 25.8 (21-28) mmol/L ABG pH 7.50 H (7.35-7.45) ABG Total CO2 24.3 (22-28) mmol/L ABG O2 Saturation 99.3 H (95-98) % ABG Base Excess 1.1 (-2.0-3.0) mmol/L Rei Test Na ABG Potassium 4.7 (3.6-5.2) mmol/L A-a O2 Difference 73.0 mm/Hg Respiratory Index 0.8 Sodium 134.0 (132-148) mmol/l Chloride 106.0 (98-107) mmol/L Glucose 151 H (75-110) mg/dl Lactate 1.6 (0.7-2.1) mmol/L FiO2 28.0 % Potassium (3.6-5.2) mmol/L Carbon Dioxide (22-30) mmol/L Anion Gap (10-20) BUN (9-20) mg/dL Creatinine (0.8-1.5) mg/dL Est GFR ( Amer) Est GFR (Non-Af Amer) POC Glucose (mg/dL) 156 H 147 H (65-110) mg/dL Random Glucose (75-110) mg/dL Calcium (8.6-10.4) mg/dl Phosphorus (2.5-4.5) mg/dL Magnesium (1.6-2.3) mg/dL Total Bilirubin (0.2-1.3) mg/dL AST (17-59) U/L ALT (21-72) U/L Alkaline Phosphatase (38-126) U/L Total Protein (6.3-8.3) g/dL Albumin (3.5-5.0) g/dL Globulin (2.2-3.9) gm/dL Albumin/Globulin Ratio (1.0-2.1) Arterial Blood Potassium 4.7 (3.6-5.2) mmol/L Pleural Total Protein g/dL Pleural LDH U/L Pleural Glucose mg/dL 03/09/18 03/07/18 03/07/18 Range/Units 11:18 15:23 15:23 WBC (4.8-10.8) K/uL RBC (4.40-5.90) Mil/uL Hgb (12.0-18.0) g/dL Hct (35.0-51.0) % MCV (80.0-94.0) fL MCH (27.0-31.0) pg MCHC (33.0-37.0) g/dL RDW (11.5-14.5) % Plt Count (130-400) K/uL MPV (7.2-11.7) fL Neut % (Auto) (50.0-75.0) % Lymph % (Auto) (20.0-40.0) % Perkins % (Auto) (0.0-10.0) % Eos % (Auto) (0.0-4.0) % Baso % (Auto) (0.0-2.0) % Neut # (Auto) (1.8-7.0) K/uL Lymph # (Auto) (1.0-4.3) K/uL Perkins # (Auto) (0.0-0.8) K/uL Eos # (Auto) (0.0-0.7) K/uL Baso # (Auto) (0.0-0.2) K/uL Puncture Site pCO2 (35-45) mm/Hg pO2 (80-100) mm/Hg HCO3 (21-28) mmol/L ABG pH (7.35-7.45) ABG Total CO2 (22-28) mmol/L ABG O2 Saturation (95-98) % ABG Base Excess (-2.0-3.0) mmol/L Rei Test ABG Potassium (3.6-5.2) mmol/L A-a O2 Difference mm/Hg Respiratory Index Sodium (132-148) mmol/l Chloride (98-107) mmol/L Glucose (75-110) mg/dl Lactate (0.7-2.1) mmol/L FiO2 % Potassium (3.6-5.2) mmol/L Carbon Dioxide (22-30) mmol/L Anion Gap (10-20) BUN (9-20) mg/dL Creatinine (0.8-1.5) mg/dL Est GFR ( Amer) Est GFR (Non-Af Amer) POC Glucose (mg/dL) 134 H (65-110) mg/dL Random Glucose (75-110) mg/dL Calcium (8.6-10.4) mg/dl Phosphorus (2.5-4.5) mg/dL Magnesium (1.6-2.3) mg/dL Total Bilirubin (0.2-1.3) mg/dL AST (17-59) U/L ALT (21-72) U/L Alkaline Phosphatase (38-126) U/L Total Protein (6.3-8.3) g/dL Albumin (3.5-5.0) g/dL Globulin (2.2-3.9) gm/dL Albumin/Globulin Ratio (1.0-2.1) Arterial Blood Potassium (3.6-5.2) mmol/L Pleural Total Protein <3.0 g/dL Pleural LDH 494 U/L Pleural Glucose 129 mg/dL Laboratory Results - last 24 hr 03/07/18 03/07/18 03/09/18 15:23 15:23 11:18 WBC RBC Hgb Hct MCV MCH MCHC RDW Plt Count MPV Neut % (Auto) Lymph % (Auto) Perkins % (Auto) Eos % (Auto) Baso % (Auto) Neut # (Auto) Lymph # (Auto) Perkins # (Auto) Eos # (Auto) Baso # (Auto) Puncture Site pCO2 pO2 HCO3 ABG pH ABG Total CO2 ABG O2 Saturation ABG Base Excess Rei Test ABG Potassium A-a O2 Difference Respiratory Index Sodium Chloride Glucose Lactate FiO2 Potassium Carbon Dioxide Anion Gap BUN Creatinine Est GFR ( Amer) Est GFR (Non-Af Amer) POC Glucose (mg/dL) 134 H Random Glucose Calcium Phosphorus Magnesium Total Bilirubin AST ALT Alkaline Phosphatase Total Protein Albumin Globulin Albumin/Globulin Ratio Arterial Blood Potassium Pleural Total Protein <3.0 Pleural LDH 494 Pleural Glucose 129 11/22/18 11/22/18 11/22/18 16:52 17:45 23:53 WBC RBC Hgb Hct MCV MCH MCHC RDW Plt Count MPV Neut % (Auto) Lymph % (Auto) Perkins % (Auto) Eos % (Auto) Baso % (Auto) Neut # (Auto) Lymph # (Auto) Perkins # (Auto) Eos # (Auto) Baso # (Auto) Puncture Site Rra pCO2 30 L pO2 89 HCO3 25.8 ABG pH 7.50 H ABG Total CO2 24.3 ABG O2 Saturation 99.3 H ABG Base Excess 1.1 Rei Test Na ABG Potassium 4.7 A-a O2 Difference 73.0 Respiratory Index 0.8 Sodium 134.0 Chloride 106.0 Glucose 151 H Lactate 1.6 FiO2 28.0 Potassium Carbon Dioxide Anion Gap BUN Creatinine Est GFR ( Amer) Est GFR (Non-Af Amer) POC Glucose (mg/dL) 147 H 156 H Random Glucose Calcium Phosphorus Magnesium Total Bilirubin AST ALT Alkaline Phosphatase Total Protein Albumin Globulin Albumin/Globulin Ratio Arterial Blood Potassium 4.7 Pleural Total Protein Pleural LDH Pleural Glucose 03/10/18 03/10/18 03/10/18 06:32 06:33 06:33 WBC 7.1 RBC 2.35 L Hgb 8.2 L Hct 24.1 L MCV 102.7 H MCH 34.9 H MCHC 34.0 RDW 19.6 H Plt Count 108 L D MPV 10.9 Neut % (Auto) 76.4 H Lymph % (Auto) 20.7 Perkins % (Auto) 2.8 Eos % (Auto) 0.0 Baso % (Auto) 0.1 Neut # (Auto) 5.4 Lymph # (Auto) 1.5 Perkins # (Auto) 0.2 Eos # (Auto) 0.0 Baso # (Auto) 0.0 Puncture Site pCO2 pO2 HCO3 ABG pH ABG Total CO2 ABG O2 Saturation ABG Base Excess Rei Test ABG Potassium A-a O2 Difference Respiratory Index Sodium 136 Chloride 103 Glucose Lactate FiO2 Potassium 4.5 Carbon Dioxide 24 Anion Gap 13 BUN 15 Creatinine 0.7 L Est GFR ( Amer) > 60 Est GFR (Non-Af Amer) > 60 POC Glucose (mg/dL) 138 H Random Glucose 141 H Calcium 7.9 L Phosphorus 2.6 Magnesium 1.9 Total Bilirubin 5.7 H AST 108 H ALT 53 Alkaline Phosphatase 141 H Total Protein 7.6 Albumin 2.9 L D Globulin 4.7 H Albumin/Globulin Ratio 0.6 L Arterial Blood Potassium Pleural Total Protein Pleural LDH Pleural Glucose Fingerstick Blood Sugar Results: 131 Review of Systems - Review of Systems All systems: reviewed and no additional remarkable complaints except Review of Systems: as per HPI Critical Care Progress Note - Nutrition Nutrition: Nutrition Category Date Time Status Heart Healthy Diet [DIET] Diets 03/09/18 Breakfast Active Assessment/Plan - Assessment and Plan (Free Text) Assessment: 57 yo M with PMHx of multiple visits to the ED for alcohol intoxication BIBEMS for alcohol intoxication. Of note, the patient is homeless and was found on someone else's property. While in the ED: CXR was obtained and revealed right lower lobe infiltrates. Patient treated empirically for CAP. CT head without contrast was obtained 02/27/18 and revealed small subdural hematoma. Tolerated extubation 03/09, medically stable for downgrade. Plan: Neuro: -tolerated extubation (03/09) -has evolving subdural hematomas, now stabilizing. Neurosurgery on board. Pulm: -acute respiratory failure on ventilator 2/2 pneumonia - pleural effusion cytology -WBC 2078 -RBC 2708 -Neutrophil 23 -Lymphocyte 75 -CXR (03/08): Dense b/l pleural parenchymal opacities throughout both lungs. Scattered modular densities in both lung brown. -CXR (03/07): small b/l infiltrate R>L -CXR (03/06): Prominent diffuse b/l airspace consolidative opacities throughout lungs. Small b/l pleural effusions, cardiomegaly. Mild atherosclerotic calcification noted within the aorta. -Patient tolerating CPAP well, however still has a large amounts of secretions from ETT. Possible thoracentesis with IR for tomorrow. -chepe krishnamurthysin CV: -hemodynamically stable Heme: -PLT 108 -no leukocytosis noted Renal: -electrolytes improved, stable now -Nephro recs (Dr. Taylor) on board Endo: -no acute issues GI: -HHD ID: -Sepsis secondary to CAP -on Zosyn, Vanc on hold PPx, Diet, Disposition -DVT ppx: scds, anticoagulation being held d/t current subdural hematomas -GI ppx: protonix -gay for strict I/Os during acute illness -Diet: HHD Case discussed with Dr. Enzo Morrow DO PGY-1 <EnzoAneta M - Last Filed: 03/10/18 14:56> CCU Objective - Vital Signs / Intake & Output Intake and Output (Last 8hrs): Intake & Output 03/09/18 03/10/18 03/10/18 22:59 06:59 14:59 Intake Total 570 370 Output Total 800 500 200 Balance -230 -130 -200 Weight 139 lb 0.16 oz Intake: Intake, IV Amount 50 50 LA MIDLINE 50 50 Oral 520 320 Output: Urine 800 500 200 Condom 200 Urine, Voided 800 500 Other: # Voids Urine, Voided 1 - Medications Active Medications: Active Medications Generic Name Dose Route Start Last Admin Trade Name Freq PRN Reason Stop Dose Admin Albuterol/Ipratropium 3 ml 03/03/18 20:00 03/10/18 14:41 Duoneb 3 Mg/0.5 Mg (3 Ml) Ud INH 3 ml RQ6 ASHLEIGH Administration Aspirin 81 mg 03/10/18 10:00 03/10/18 10:39 Aspirin Chewable PO 81 mg DAILY ASHLEIGH Administration Chlordiazepoxide 10 mg 03/10/18 08:45 03/10/18 10:39 Librium PO 10 mg Q24H ASHLEIGH Administration Dextrose 0 gm 02/28/18 07:44 Glutose 15 PO ONCE PRN Hypoglycemia Protocol Protocol Docusate Sodium 100 mg 03/07/18 18:00 03/07/18 18:21 Colace PO 100 mg DAILY PRN Administration Constipation Enoxaparin Sodium 40 mg 03/10/18 10:00 03/10/18 10:39 Lovenox SC 40 mg DAILY ASHLEIGH Administration Folic Acid 1 mg 03/03/18 10:00 03/10/18 10:39 Folic Acid PO 1 mg DAILY ASHLEIGH Administration Glucagon 1 mg 02/28/18 07:44 Glucagen Diagnostic Kit IM STAT PRN Hypoglycemia Protocol Protocol Piperacillin Sod/Tazobactam Sod 3.375 gm in 50 mls @ 100 mls/hr 03/05/18 12:30 03/10/18 13:26 Zosyn 3.375 Gm Iv Premix IVPB 100 mls/hr Q6H ASHLEIGH Administration Protocol Lactobacillus Acidophilus 1 cap 02/28/18 10:00 03/10/18 10:26 Bacid Acidophilus PO 1 cap BID ASHLEIGH Administration Methylprednisolone 40 mg 03/09/18 09:30 03/10/18 10:39 Solu-Medrol IVP 03/11/18 01:31 40 mg Q8H ASHLEIGH Administration Multivitamins 1 tab 03/03/18 10:00 03/10/18 10:40 Hexavitamin PO 1 tab DAILY ASHLEIGH Administration Multivitamins/Minerals 1 tab 03/11/18 08:00 Therapeutic-M Tab PO 0800 ASHLEIGH Pantoprazole Sodium 40 mg 03/05/18 06:00 03/10/18 06:18 Protonix Susp PO 40 mg 0600 ASHLEIGH Administration Potassium Phos/Sodium Phos 1 pkt 03/07/18 10:45 03/10/18 10:39 Neutra-Phos PO 1 pkt BID ASHLEIGH Administration Spironolactone 50 mg 03/08/18 13:12 03/10/18 10:39 Aldactone PO 50 mg DAILY ASHLEIGH Administration Thiamine HCl 100 mg 03/03/18 10:00 03/10/18 10:40 Vitamin B1 Tab PO 100 mg BID ASHLEIGH Administration Thiamine HCl 100 mg 03/10/18 10:00 03/10/18 10:40 Vitamin B1 Tab PO Not Given BID ASHLEIGH - Patient Studies Lab Studies: Microbiology Studies 03/07/18 15:23 Gram Stain - Final Pleural Fluid Body Fluid Culture - Preliminary NO GROWTH AFTER 3 DAYS 03/09/18 12:43 Gram Stain - Final Sputum Induced 03/07/18 15:26 Anaerobic Culture - Final Pleural Fluid NO ANAEROBES ISOLATED. Lab Studies 03/10/18 03/10/18 03/10/18 Range/Units 11:53 06:33 06:33 WBC 7.1 (4.8-10.8) K/uL RBC 2.35 L (4.40-5.90) Mil/uL Hgb 8.2 L (12.0-18.0) g/dL Hct 24.1 L (35.0-51.0) % MCV 102.7 H (80.0-94.0) fL MCH 34.9 H (27.0-31.0) pg MCHC 34.0 (33.0-37.0) g/dL RDW 19.6 H (11.5-14.5) % Plt Count 108 L D (130-400) K/uL MPV 10.9 (7.2-11.7) fL Neut % (Auto) 76.4 H (50.0-75.0) % Lymph % (Auto) 20.7 (20.0-40.0) % Perkins % (Auto) 2.8 (0.0-10.0) % Eos % (Auto) 0.0 (0.0-4.0) % Baso % (Auto) 0.1 (0.0-2.0) % Neut # (Auto) 5.4 (1.8-7.0) K/uL Lymph # (Auto) 1.5 (1.0-4.3) K/uL Perkins # (Auto) 0.2 (0.0-0.8) K/uL Eos # (Auto) 0.0 (0.0-0.7) K/uL Baso # (Auto) 0.0 (0.0-0.2) K/uL Puncture Site pCO2 (35-45) mm/Hg pO2 (80-100) mm/Hg HCO3 (21-28) mmol/L ABG pH (7.35-7.45) ABG Total CO2 (22-28) mmol/L ABG O2 Saturation (95-98) % ABG Base Excess (-2.0-3.0) mmol/L Rei Test ABG Potassium (3.6-5.2) mmol/L A-a O2 Difference mm/Hg Respiratory Index Sodium 136 (132-148) mmol/l Chloride 103 (98-107) mmol/L Glucose (75-110) mg/dl Lactate (0.7-2.1) mmol/L FiO2 % Potassium 4.5 (3.6-5.2) mmol/L Carbon Dioxide 24 (22-30) mmol/L Anion Gap 13 (10-20) BUN 15 (9-20) mg/dL Creatinine 0.7 L (0.8-1.5) mg/dL Est GFR ( Amer) > 60 Est GFR (Non-Af Amer) > 60 POC Glucose (mg/dL) 184 H (65-110) mg/dL Random Glucose 141 H (75-110) mg/dL Calcium 7.9 L (8.6-10.4) mg/dl Phosphorus 2.6 (2.5-4.5) mg/dL Magnesium 1.9 (1.6-2.3) mg/dL Total Bilirubin 5.7 H (0.2-1.3) mg/dL AST 108 H (17-59) U/L ALT 53 (21-72) U/L Alkaline Phosphatase 141 H (38-126) U/L Total Protein 7.6 (6.3-8.3) g/dL Albumin 2.9 L D (3.5-5.0) g/dL Globulin 4.7 H (2.2-3.9) gm/dL Albumin/Globulin Ratio 0.6 L (1.0-2.1) Arterial Blood Potassium (3.6-5.2) mmol/L Pleural Total Protein g/dL Pleural LDH U/L Pleural Glucose mg/dL 03/10/18 03/09/18 03/09/18 Range/Units 06:32 23:53 17:45 WBC (4.8-10.8) K/uL RBC (4.40-5.90) Mil/uL Hgb (12.0-18.0) g/dL Hct (35.0-51.0) % MCV (80.0-94.0) fL MCH (27.0-31.0) pg MCHC (33.0-37.0) g/dL RDW (11.5-14.5) % Plt Count (130-400) K/uL MPV (7.2-11.7) fL Neut % (Auto) (50.0-75.0) % Lymph % (Auto) (20.0-40.0) % Perkins % (Auto) (0.0-10.0) % Eos % (Auto) (0.0-4.0) % Baso % (Auto) (0.0-2.0) % Neut # (Auto) (1.8-7.0) K/uL Lymph # (Auto) (1.0-4.3) K/uL Perkins # (Auto) (0.0-0.8) K/uL Eos # (Auto) (0.0-0.7) K/uL Baso # (Auto) (0.0-0.2) K/uL Puncture Site pCO2 (35-45) mm/Hg pO2 (80-100) mm/Hg HCO3 (21-28) mmol/L ABG pH (7.35-7.45) ABG Total CO2 (22-28) mmol/L ABG O2 Saturation (95-98) % ABG Base Excess (-2.0-3.0) mmol/L Rei Test ABG Potassium (3.6-5.2) mmol/L A-a O2 Difference mm/Hg Respiratory Index Sodium (132-148) mmol/l Chloride (98-107) mmol/L Glucose (75-110) mg/dl Lactate (0.7-2.1) mmol/L FiO2 % Potassium (3.6-5.2) mmol/L Carbon Dioxide (22-30) mmol/L Anion Gap (10-20) BUN (9-20) mg/dL Creatinine (0.8-1.5) mg/dL Est GFR ( Amer) Est GFR (Non-Af Amer) POC Glucose (mg/dL) 138 H 156 H 147 H (65-110) mg/dL Random Glucose (75-110) mg/dL Calcium (8.6-10.4) mg/dl Phosphorus (2.5-4.5) mg/dL Magnesium (1.6-2.3) mg/dL Total Bilirubin (0.2-1.3) mg/dL AST (17-59) U/L ALT (21-72) U/L Alkaline Phosphatase (38-126) U/L Total Protein (6.3-8.3) g/dL Albumin (3.5-5.0) g/dL Globulin (2.2-3.9) gm/dL Albumin/Globulin Ratio (1.0-2.1) Arterial Blood Potassium (3.6-5.2) mmol/L Pleural Total Protein g/dL Pleural LDH U/L Pleural Glucose mg/dL 03/09/18 03/07/18 03/07/18 Range/Units 16:52 15:23 15:23 WBC (4.8-10.8) K/uL RBC (4.40-5.90) Mil/uL Hgb (12.0-18.0) g/dL Hct (35.0-51.0) % MCV (80.0-94.0) fL MCH (27.0-31.0) pg MCHC (33.0-37.0) g/dL RDW (11.5-14.5) % Plt Count (130-400) K/uL MPV (7.2-11.7) fL Neut % (Auto) (50.0-75.0) % Lymph % (Auto) (20.0-40.0) % Perkins % (Auto) (0.0-10.0) % Eos % (Auto) (0.0-4.0) % Baso % (Auto) (0.0-2.0) % Neut # (Auto) (1.8-7.0) K/uL Lymph # (Auto) (1.0-4.3) K/uL Perkins # (Auto) (0.0-0.8) K/uL Eos # (Auto) (0.0-0.7) K/uL Baso # (Auto) (0.0-0.2) K/uL Puncture Site Rra pCO2 30 L (35-45) mm/Hg pO2 89 (80-100) mm/Hg HCO3 25.8 (21-28) mmol/L ABG pH 7.50 H (7.35-7.45) ABG Total CO2 24.3 (22-28) mmol/L ABG O2 Saturation 99.3 H (95-98) % ABG Base Excess 1.1 (-2.0-3.0) mmol/L Rei Test Na ABG Potassium 4.7 (3.6-5.2) mmol/L A-a O2 Difference 73.0 mm/Hg Respiratory Index 0.8 Sodium 134.0 (132-148) mmol/l Chloride 106.0 (98-107) mmol/L Glucose 151 H (75-110) mg/dl Lactate 1.6 (0.7-2.1) mmol/L FiO2 28.0 % Potassium (3.6-5.2) mmol/L Carbon Dioxide (22-30) mmol/L Anion Gap (10-20) BUN (9-20) mg/dL Creatinine (0.8-1.5) mg/dL Est GFR ( Amer) Est GFR (Non-Af Amer) POC Glucose (mg/dL) (65-110) mg/dL Random Glucose (75-110) mg/dL Calcium (8.6-10.4) mg/dl Phosphorus (2.5-4.5) mg/dL Magnesium (1.6-2.3) mg/dL Total Bilirubin (0.2-1.3) mg/dL AST (17-59) U/L ALT (21-72) U/L Alkaline Phosphatase (38-126) U/L Total Protein (6.3-8.3) g/dL Albumin (3.5-5.0) g/dL Globulin (2.2-3.9) gm/dL Albumin/Globulin Ratio (1.0-2.1) Arterial Blood Potassium 4.7 (3.6-5.2) mmol/L Pleural Total Protein <3.0 g/dL Pleural LDH 494 U/L Pleural Glucose 129 mg/dL Laboratory Results - last 24 hr 03/07/18 03/07/18 03/09/18 15:23 15:23 16:52 WBC RBC Hgb Hct MCV MCH MCHC RDW Plt Count MPV Neut % (Auto) Lymph % (Auto) Perkins % (Auto) Eos % (Auto) Baso % (Auto) Neut # (Auto) Lymph # (Auto) Perkins # (Auto) Eos # (Auto) Baso # (Auto) Puncture Site Rra pCO2 30 L pO2 89 HCO3 25.8 ABG pH 7.50 H ABG Total CO2 24.3 ABG O2 Saturation 99.3 H ABG Base Excess 1.1 Rei Test Na ABG Potassium 4.7 A-a O2 Difference 73.0 Respiratory Index 0.8 Sodium 134.0 Chloride 106.0 Glucose 151 H Lactate 1.6 FiO2 28.0 Potassium Carbon Dioxide Anion Gap BUN Creatinine Est GFR ( Amer) Est GFR (Non-Af Amer) POC Glucose (mg/dL) Random Glucose Calcium Phosphorus Magnesium Total Bilirubin AST ALT Alkaline Phosphatase Total Protein Albumin Globulin Albumin/Globulin Ratio Arterial Blood Potassium 4.7 Pleural Total Protein <3.0 Pleural LDH 494 Pleural Glucose 129 03/09/18 03/09/18 03/10/18 17:45 23:53 06:32 WBC RBC Hgb Hct MCV MCH MCHC RDW Plt Count MPV Neut % (Auto) Lymph % (Auto) Perkins % (Auto) Eos % (Auto) Baso % (Auto) Neut # (Auto) Lymph # (Auto) Perkins # (Auto) Eos # (Auto) Baso # (Auto) Puncture Site pCO2 pO2 HCO3 ABG pH ABG Total CO2 ABG O2 Saturation ABG Base Excess Rei Test ABG Potassium A-a O2 Difference Respiratory Index Sodium Chloride Glucose Lactate FiO2 Potassium Carbon Dioxide Anion Gap BUN Creatinine Est GFR ( Amer) Est GFR (Non-Af Amer) POC Glucose (mg/dL) 147 H 156 H 138 H Random Glucose Calcium Phosphorus Magnesium Total Bilirubin AST ALT Alkaline Phosphatase Total Protein Albumin Globulin Albumin/Globulin Ratio Arterial Blood Potassium Pleural Total Protein Pleural LDH Pleural Glucose 03/10/18 03/10/18 03/10/18 06:33 06:33 11:53 WBC 7.1 RBC 2.35 L Hgb 8.2 L Hct 24.1 L MCV 102.7 H MCH 34.9 H MCHC 34.0 RDW 19.6 H Plt Count 108 L D MPV 10.9 Neut % (Auto) 76.4 H Lymph % (Auto) 20.7 Perkins % (Auto) 2.8 Eos % (Auto) 0.0 Baso % (Auto) 0.1 Neut # (Auto) 5.4 Lymph # (Auto) 1.5 Perkins # (Auto) 0.2 Eos # (Auto) 0.0 Baso # (Auto) 0.0 Puncture Site pCO2 pO2 HCO3 ABG pH ABG Total CO2 ABG O2 Saturation ABG Base Excess Rei Test ABG Potassium A-a O2 Difference Respiratory Index Sodium 136 Chloride 103 Glucose Lactate FiO2 Potassium 4.5 Carbon Dioxide 24 Anion Gap 13 BUN 15 Creatinine 0.7 L Est GFR ( Amer) > 60 Est GFR (Non-Af Amer) > 60 POC Glucose (mg/dL) 184 H Random Glucose 141 H Calcium 7.9 L Phosphorus 2.6 Magnesium 1.9 Total Bilirubin 5.7 H AST 108 H ALT 53 Alkaline Phosphatase 141 H Total Protein 7.6 Albumin 2.9 L D Globulin 4.7 H Albumin/Globulin Ratio 0.6 L Arterial Blood Potassium Pleural Total Protein Pleural LDH Pleural Glucose Critical Care Progress Note - Nutrition Nutrition: Nutrition Category Date Time Status Heart Healthy Diet [DIET] Diets 03/09/18 Breakfast Active Assessment/Plan - Assessment and Plan (Free Text) Plan: Patient seen and examined at [facility]. Patient toerated extubation -toelrating oral diet -oob to chair -remains hemodynamically stable. -PT/OT -d/c all gay and catheter -switch to oral tabs - Date & Time Date: 03/10/18 Time: 14:56
--- NOTE | 2018-03-10 09:32 | CP.PCM.PN ---
Subjective - Date & Time of Evaluation Date of Evaluation: 03/10/18 Time of Evaluation: 09:30 - Subjective Subjective: for CT head; f/u subdural hematoma s/p extubation still very weak [id number] Lytes improved- stable now renal function normal Objective - Vital Signs/Intake and Output Vital Signs (last 24 hours): Temp Pulse Resp BP Pulse Ox 98.1 F 69 22 108/66 100 03/10/18 04:00 03/09/18 19:00 03/09/18 19:00 03/09/18 18:58 03/10/18 04:00 Intake and Output: 03/10/18 03/10/18 06:59 18:59 Intake Total 470 Output Total 800 200 Balance -330 -200 - Medications Medications: Current Medications Albuterol/Ipratropium (Duoneb 3 Mg/0.5 Mg (3 Ml) Ud) 3 ml INH RQ6 [facility] Last Admin: 03/10/18 01:14 Dose: 3 ml Aspirin (Aspirin Chewable) 81 mg PO DAILY [facility] Chlordiazepoxide (Librium) 10 mg PO Q24H [facility] Dextrose (Glutose 15) 0 gm PO ONCE PRN; Protocol PRN Reason: Hypoglycemia Protocol Docusate Sodium (Colace) 100 mg PO DAILY PRN PRN Reason: Constipation Last Admin: 03/07/18 18:21 Dose: 100 mg Enoxaparin Sodium (Lovenox) 40 mg SC DAILY [facility] Folic Acid (Folic Acid) 1 mg PO DAILY [facility] Last Admin: 03/09/18 10:19 Dose: 1 mg Glucagon (Glucagen Diagnostic Kit) 1 mg IM STAT PRN; Protocol PRN Reason: Hypoglycemia Protocol Piperacillin Sod/Tazobactam Sod (Zosyn 3.375 Gm Iv Premix) 3.375 gm in 50 mls @ 100 mls/hr IVPB Q6H [facility]; Protocol Last Admin: 03/10/18 06:00 Dose: 100 mls/hr Lactobacillus Acidophilus (Bacid Acidophilus) 1 cap PO BID [facility] Last Admin: 03/09/18 18:07 Dose: 1 cap Methylprednisolone (Solu-Medrol) 40 mg IVP Q8H [facility] Stop: 03/11/18 01:31 Last Admin: 03/10/18 00:48 Dose: 40 mg Multivitamins (Hexavitamin) 1 tab PO DAILY [facility] Last Admin: 03/09/18 10:19 Dose: 1 tab Multivitamins/Minerals (Therapeutic-M Tab) 1 tab PO 0800 [facility] Pantoprazole Sodium (Protonix Susp) 40 mg PO 0600 [facility] Last Admin: 03/10/18 06:18 Dose: 40 mg Potassium Phos/Sodium Phos (Neutra-Phos) 1 pkt PO BID [facility] Last Admin: 03/09/18 17:50 Dose: 1 pkt Spironolactone (Aldactone) 50 mg PO DAILY [facility] Last Admin: 03/09/18 10:18 Dose: 50 mg Thiamine HCl (Vitamin B1 Tab) 100 mg PO BID [facility] Last Admin: 03/09/18 17:50 Dose: 100 mg Thiamine HCl (Vitamin B1 Tab) 100 mg PO BID [facility] - Labs Labs: 03/10/18 06:33 03/10/18 06:33 PT 19.3 SECONDS (9.7-12.2) H 03/09/18 06:21 INR 1.8 03/09/18 06:21 APTT 37 SECONDS (21-34) H 03/05/18 05:51 - Constitutional Appears: No Acute Distress, Cachectic, Chronically Ill - Head Exam Head Exam: ATRAUMATIC, NORMAL INSPECTION - Eye Exam Eye Exam: EOMI, Normal appearance - Neck Exam Neck Exam: Normal Inspection. absent: Tenderness - Respiratory Exam Respiratory Exam: Clear to Ausculation Bilateral, NORMAL BREATHING PATTERN - Cardiovascular Exam Cardiovascular Exam: REGULAR RHYTHM, +S1 - GI/Abdominal Exam GI & Abdominal Exam: Soft. absent: Tenderness - Extremities Exam Extremities Exam: Normal Inspection. absent: Tenderness - Neurological Exam Neurological Exam: Awake, CN II-XII Intact - Skin Skin Exam: Dry, Warm Assessment and Plan (1) Respiratory failure Status: Resolved (2) Alcoholic cirrhosis Status: Chronic (3) Hyponatremia syndrome Status: Resolved (4) Subdural hemorrhage Status: Acute (5) Alcohol abuse with intoxication Status: Acute (6) Electrolyte imbalance Status: Resolved - Assessment and Plan (Free Text) Plan: Continue to monitor lytes Renal issues resolved- call again if needed
--- NOTE | 2018-03-10 09:44 | CP.PCM.PN ---
Subjective - Date & Time of Evaluation Date of Evaluation: 03/10/18 Time of Evaluation: 09:40 - Subjective Subjective: Medical Attending Note: Patient seen and examined. Patient was extubated yesterday. Patient sitting upright in chair. Patient reports cough but controlled with Robotussin. Denies chest pain, denies abdominal pain, denies nausea, denies vomitting, denies constipation. Patient counselled at bedside that needs to stop alcohol use. Objective - Vital Signs/Intake and Output Vital Signs (last 24 hours): Temp Pulse Resp BP Pulse Ox 98.1 F 69 22 108/66 100 03/10/18 04:00 03/09/18 19:00 03/09/18 19:00 03/09/18 18:58 03/10/18 04:00 Intake and Output: 03/10/18 03/10/18 06:59 18:59 Intake Total 470 Output Total 800 200 Balance -330 -200 - Medications Medications: Current Medications Albuterol/Ipratropium (Duoneb 3 Mg/0.5 Mg (3 Ml) Ud) 3 ml INH RQ6 [facility] Last Admin: 03/10/18 01:14 Dose: 3 ml Aspirin (Aspirin Chewable) 81 mg PO DAILY [facility] Chlordiazepoxide (Librium) 10 mg PO Q24H [facility] Dextrose (Glutose 15) 0 gm PO ONCE PRN; Protocol PRN Reason: Hypoglycemia Protocol Docusate Sodium (Colace) 100 mg PO DAILY PRN PRN Reason: Constipation Last Admin: 03/07/18 18:21 Dose: 100 mg Enoxaparin Sodium (Lovenox) 40 mg SC DAILY [facility] Folic Acid (Folic Acid) 1 mg PO DAILY [facility] Last Admin: 03/09/18 10:19 Dose: 1 mg Glucagon (Glucagen Diagnostic Kit) 1 mg IM STAT PRN; Protocol PRN Reason: Hypoglycemia Protocol Piperacillin Sod/Tazobactam Sod (Zosyn 3.375 Gm Iv Premix) 3.375 gm in 50 mls @ 100 mls/hr IVPB Q6H [facility]; Protocol Last Admin: 03/10/18 06:00 Dose: 100 mls/hr Lactobacillus Acidophilus (Bacid Acidophilus) 1 cap PO BID [facility] Last Admin: 03/09/18 18:07 Dose: 1 cap Methylprednisolone (Solu-Medrol) 40 mg IVP Q8H [facility] Stop: 03/11/18 01:31 Last Admin: 03/10/18 00:48 Dose: 40 mg Multivitamins (Hexavitamin) 1 tab PO DAILY [facility] Last Admin: 03/09/18 10:19 Dose: 1 tab Multivitamins/Minerals (Therapeutic-M Tab) 1 tab PO 0800 [facility] Pantoprazole Sodium (Protonix Susp) 40 mg PO 0600 [facility] Last Admin: 03/10/18 06:18 Dose: 40 mg Potassium Phos/Sodium Phos (Neutra-Phos) 1 pkt PO BID [facility] Last Admin: 03/09/18 17:50 Dose: 1 pkt Spironolactone (Aldactone) 50 mg PO DAILY [facility] Last Admin: 03/09/18 10:18 Dose: 50 mg Thiamine HCl (Vitamin B1 Tab) 100 mg PO BID [facility] Last Admin: 03/09/18 17:50 Dose: 100 mg Thiamine HCl (Vitamin B1 Tab) 100 mg PO BID [facility] - Labs Labs: 03/10/18 06:33 03/10/18 06:33 PT 19.3 SECONDS (9.7-12.2) H 03/09/18 06:21 INR 1.8 03/09/18 06:21 APTT 37 SECONDS (21-34) H 03/05/18 05:51 Assessment and Plan (1) Sepsis Status: Acute (2) Subdural hemorrhage Status: Acute (3) Electrolyte imbalance Status: Resolved (4) Pneumonia Status: Acute (5) Alcohol abuse Status: Acute (6) Chronic venous stasis dermatitis Status: Acute (7) Urinary tract infection Status: Acute (8) Alcoholic cirrhosis Status: Chronic (9) Prophylactic measure Status: Acute
[2018-03-10] MEDS: Lactobacillus Acidophilus 500 MU Cap PO SCH ×2 (10:26→18:43)
[2018-03-10] MEDS: Enoxaparin 40 mg Syringe SC SCH (10:39)
[2018-03-10] MEDS: Potassium & Sodium Phosphate PO SCH ×2 (10:39→18:43)
[2018-03-10] MEDS: Multiple Vitamins Tab PO SCH (10:40)
--- NOTE | 2018-03-10 10:42 | CT ---
Date of service: 03/10/2018 PROCEDURE: CT HEAD WITHOUT CONTRAST. HISTORY: Followup subdural COMPARISON: Comparison made with prior CT scan of the brain 03/05/2018. TECHNIQUE: Axial computed tomography images were obtained through the head/brain without intravenous contrast. Radiation dose: Total exam DLP = 1025.85 mGy-cm. This CT exam was performed using one or more of the following dose reduction techniques: Automated exposure control, adjustment of the mA and/or kV according to patient size, and/or use of iterative reconstruction technique. FINDINGS: HEMORRHAGE: Re demonstrated are bilateral hypodense extra-axial collections right slightly larger than left. There is persistent compressive effects on the cerebral hemispheres more so on the right side with mild compression of the right lateral ventricle. No significant [id number] midline shift is identified. No new hemorrhages. Mild chronic periventricular white matter ischemic changes are again noted. Significant supra and infratentorial generalized volume loss. BRAIN: As above. VENTRICLES: No obstructive hydrocephalus. CALVARIUM: No acute calvarial fractures. PARANASAL SINUSES: Unremarkable as visualized. No significant inflammatory changes. MASTOID AIR CELLS: Unremarkable as visualized. No inflammatory changes. OTHER FINDINGS: None. IMPRESSION: Bilateral hypodense extra-axial collections right slightly larger than left. There is persistent compressive effects on the cerebral hemispheres more so on the right side with mild compression of the right lateral ventricle. No significant [id number] midline shift is identified. No new hemorrhages. Mild chronic periventricular white matter ischemic changes are again noted. Significant supra and infratentorial generalized volume loss.
--- NOTE | 2018-03-10 16:35 | CP.PCM.PN ---
Subjective - Date & Time of Evaluation Date of Evaluation: 03/10/18 Time of Evaluation: 07:00 - Subjective Subjective: slow progress s/p extubation Objective - Vital Signs/Intake and Output Vital Signs (last 24 hours): Temp Pulse Resp BP Pulse Ox 98.1 F 107 H 27 H 108/66 100 03/10/18 04:00 03/10/18 16:15 03/10/18 16:15 03/09/18 18:58 03/10/18 04:00 Intake and Output: 03/10/18 03/10/18 06:59 18:59 Intake Total 470 Output Total 800 200 Balance -330 -200 - Medications Medications: Current Medications Albuterol/Ipratropium (Duoneb 3 Mg/0.5 Mg (3 Ml) Ud) 3 ml INH RQ6 [facility] Last Admin: 03/10/18 14:41 Dose: 3 ml Aspirin (Aspirin Chewable) 81 mg PO DAILY [facility] Last Admin: 03/10/18 10:39 Dose: 81 mg Chlordiazepoxide (Librium) 10 mg PO Q24H [facility] Last Admin: 03/10/18 10:39 Dose: 10 mg Dextrose (Glutose 15) 0 gm PO ONCE PRN; Protocol PRN Reason: Hypoglycemia Protocol Docusate Sodium (Colace) 100 mg PO DAILY PRN PRN Reason: Constipation Last Admin: 03/07/18 18:21 Dose: 100 mg Enoxaparin Sodium (Lovenox) 40 mg SC DAILY [facility] Last Admin: 03/10/18 10:39 Dose: 40 mg Folic Acid (Folic Acid) 1 mg PO DAILY [facility] Last Admin: 03/10/18 10:39 Dose: 1 mg Glucagon (Glucagen Diagnostic Kit) 1 mg IM STAT PRN; Protocol PRN Reason: Hypoglycemia Protocol Piperacillin Sod/Tazobactam Sod (Zosyn 3.375 Gm Iv Premix) 3.375 gm in 50 mls @ 100 mls/hr IVPB Q6H [facility]; Protocol Last Admin: 03/10/18 13:26 Dose: 100 mls/hr Lactobacillus Acidophilus (Bacid Acidophilus) 1 cap PO BID [facility] Last Admin: 03/10/18 10:26 Dose: 1 cap Methylprednisolone (Solu-Medrol) 40 mg IVP Q8H [facility] Stop: 03/11/18 01:31 Last Admin: 03/10/18 10:39 Dose: 40 mg Multivitamins (Hexavitamin) 1 tab PO DAILY [facility] Last Admin: 03/10/18 10:40 Dose: 1 tab Multivitamins/Minerals (Therapeutic-M Tab) 1 tab PO 0800 [facility] Pantoprazole Sodium (Protonix Susp) 40 mg PO 0600 [facility] Last Admin: 03/10/18 06:18 Dose: 40 mg Potassium Phos/Sodium Phos (Neutra-Phos) 1 pkt PO BID [facility] Last Admin: 03/10/18 10:39 Dose: 1 pkt Spironolactone (Aldactone) 50 mg PO DAILY [facility] Last Admin: 03/10/18 10:39 Dose: 50 mg Thiamine HCl (Vitamin B1 Tab) 100 mg PO BID [facility] Last Admin: 03/10/18 10:40 Dose: 100 mg Thiamine HCl (Vitamin B1 Tab) 100 mg PO BID [facility] Last Admin: 03/10/18 10:40 Dose: Not Given - Labs Labs: 03/10/18 06:33 03/10/18 06:33 PT 19.3 SECONDS (9.7-12.2) H 03/09/18 06:21 INR 1.8 03/09/18 06:21 APTT 37 SECONDS (21-34) H 03/05/18 05:51 - Constitutional Appears: Chronically Ill - Head Exam Head Exam: NORMOCEPHALIC - Eye Exam Eye Exam: absent: Scleral icterus - ENT Exam ENT Exam: Mucous Membranes Dry - Neck Exam Neck Exam: absent: Lymphadenopathy - Respiratory Exam Respiratory Exam: Decreased Breath Sounds, Prolonged Expiratory Phase, Rhonchi - Cardiovascular Exam Cardiovascular Exam: REGULAR RHYTHM, +S1, +S2 - GI/Abdominal Exam GI & Abdominal Exam: Distended, Soft. absent: Tenderness - Rectal Exam Rectal Exam: Deferred - Exam Exam: NORMAL INSPECTION - Extremities Exam Extremities Exam: Pedal Edema - Back Exam Back Exam: absent: CVA tenderness (L), CVA tenderness (R) Assessment and Plan (1) Pneumonia Status: Acute (2) Sepsis Status: Acute (3) Subdural hemorrhage Status: Acute (4) Alcohol abuse with intoxication Status: Acute (5) Chronic venous stasis dermatitis Status: Acute - Assessment and Plan (Free Text) Assessment: iv rx in progress prognosis guarded
[2018-03-10 22:42] LABS: SQUAMOUS EPITHIAL < 1 /hpf (0-5); URINE BILIRUBIN NEGATIVE (NEGATIVE); URINE BLOOD NEGATIVE (NEGATIVE); URINE CLARITY Clear (Clear); URINE COLOR Amber (YELLOW); URINE GLUCOSE (UA) NORMAL (Normal); URINE LEUKOCYTE ESTERASE NEG Leu/uL (Negative); URINE PROTEIN NEGATIVE (NEGATIVE)
[2018-03-11] MEDS: Piperacill/Tazo 3.375gm in Dex 3.375 GM/50 ML BAG IVPB SCH ×4 (00:26→18:38)
[2018-03-11] MEDS: MethylPREDNISolone 40 mg Vial IVP SCH (00:30)
[2018-03-11] MEDS: Albuterol-Ipratrop 3 mg / 0.5 (3 ml) UD INH SCH ×4 (02:21→21:01)
[2018-03-11 06:34] LABS: ALB/GLOB RATIO 0.6 (1.0-2.1); ALT/SGPT 55 U/L (21-72); AST/SGOT 99 U/L (17-59); BLOOD UREA NITROGEN 15 mg/dL (9-20); GFR NON-AFRICAN AMERICAN > 60
[2018-03-11 06:35] LABS: BASO % 0.2 % (0.0-2.0); HEMOGLOBIN 8.2 g/dL (12.0-18.0); LYMPH # 0.9 K/uL (1.0-4.3); LYMPH % 10.6 % (20.0-40.0); MEAN CORPUSCULAR HEMOGLOBIN 34.9 pg (27.0-31.0); MEAN CORPUSCULAR HGB CONC 33.9 g/dL (33.0-37.0); MEAN PLATELET VOLUME 11.1 fL (7.2-11.7); MONO # 0.3 K/uL (0.0-0.8); MONO % 3.8 % (0.0-10.0); NEUT # 7.6 K/uL (1.8-7.0); NEUT % 85.4 % (50.0-75.0); NRBC % 0.1 % (0.0-2.0); RBC 2.35 Mil/uL (4.40-5.90); RED CELL DISTRIBUTION WIDTH 20.2 % (11.5-14.5); WHITE BLOOD COUNT 8.9 K/uL (4.8-10.8)
[2018-03-11] MEDS: Pantoprazole 40 mg Susp UD PO SCH (06:35)
--- NOTE | 2018-03-11 09:54 | CP.PCM.PN ---
Subjective - Date & Time of Evaluation Date of Evaluation: 03/11/18 Time of Evaluation: 09:50 - Subjective Subjective: Medical Attending Note: Patient seen and examined. Patient is awake, alert, oriented 2. Patient denies headache, denies chest pain, denies palpitations, denies shortness of breathe, dry cough, denies abdominal pain, denies nausea, denies vomitting, reports he has always had tremor over the right upper extremity. Discussed with Rn, patient has urinary incontinence, no noted seizures. Objective - Vital Signs/Intake and Output Vital Signs (last 24 hours): Temp Pulse Resp BP Pulse Ox 98.3 F 97 H 16 143/83 100 03/11/18 04:00 03/11/18 04:00 03/11/18 04:00 03/11/18 04:00 03/11/18 04:00 Intake and Output: 03/11/18 03/11/18 06:59 18:59 Intake Total 300 Output Total 1000 Balance -700 - Medications Medications: Current Medications Albuterol/Ipratropium (Duoneb 3 Mg/0.5 Mg (3 Ml) Ud) 3 ml INH RQ6 [facility] Last Admin: 03/11/18 08:30 Dose: 3 ml Aspirin (Aspirin Chewable) 81 mg PO DAILY [facility] Last Admin: 03/10/18 10:39 Dose: 81 mg Chlordiazepoxide (Librium) 10 mg PO Q24H [facility] Last Admin: 03/10/18 10:39 Dose: 10 mg Dextrose (Glutose 15) 0 gm PO ONCE PRN; Protocol PRN Reason: Hypoglycemia Protocol Docusate Sodium (Colace) 100 mg PO DAILY PRN PRN Reason: Constipation Last Admin: 03/07/18 18:21 Dose: 100 mg Enoxaparin Sodium (Lovenox) 40 mg SC DAILY [facility] Last Admin: 03/10/18 10:39 Dose: 40 mg Folic Acid (Folic Acid) 1 mg PO DAILY [facility] Last Admin: 03/10/18 10:39 Dose: 1 mg Glucagon (Glucagen Diagnostic Kit) 1 mg IM STAT PRN; Protocol PRN Reason: Hypoglycemia Protocol Piperacillin Sod/Tazobactam Sod (Zosyn 3.375 Gm Iv Premix) 3.375 gm in 50 mls @ 100 mls/hr IVPB Q6H [facility]; Protocol Last Admin: 03/11/18 06:30 Dose: 100 mls/hr Lactobacillus Acidophilus (Bacid Acidophilus) 1 cap PO BID [facility] Last Admin: 03/10/18 18:43 Dose: 1 cap Metoprolol Tartrate (Lopressor) 12.5 mg PO BID [facility] Multivitamins (Hexavitamin) 1 tab PO DAILY [facility] Last Admin: 03/10/18 10:40 Dose: 1 tab Multivitamins/Minerals (Therapeutic-M Tab) 1 tab PO 0800 [facility] Pantoprazole Sodium (Protonix Susp) 40 mg PO 0600 [facility] Last Admin: 03/11/18 06:35 Dose: 40 mg Thiamine HCl (Vitamin B1 Tab) 100 mg PO BID [facility] Last Admin: 03/10/18 18:43 Dose: 100 mg Vitamin A (Vitamin A & D Oint Ud Foilpak) 1 ea TOP BID [facility] - Labs Labs: 03/11/18 06:23 03/11/18 06:07 PT 19.3 SECONDS (9.7-12.2) H 03/09/18 06:21 INR 1.8 03/09/18 06:21 APTT 37 SECONDS (21-34) H 03/05/18 05:51 - Constitutional Appears: Non-toxic, No Acute Distress - Head Exam Head Exam: NORMAL INSPECTION - Eye Exam Eye Exam: EOMI - ENT Exam ENT Exam: Mucous Membranes Moist - Respiratory Exam Respiratory Exam: Clear to Ausculation Bilateral, NORMAL BREATHING PATTERN. abs ent: Rales, Rhonchi, Wheezes - Cardiovascular Exam Cardiovascular Exam: Tachycardia, +S1, +S2 - GI/Abdominal Exam GI & Abdominal Exam: Soft, Normal Bowel Sounds. absent: Distended, Firm, Guarding, Rigid, Tenderness, Rebound - Extremities Exam Extremities Exam: Pedal Edema (trace). absent: Tenderness Additional comments: chronic venous stasis changes - Neurological Exam Neurological Exam: Alert, Awake - Psychiatric Exam Psychiatric exam: Normal Affect, Normal Mood - Skin Skin Exam: Dry, Intact, Warm Assessment and Plan (1) Sepsis Status: Acute (2) Subdural hemorrhage Status: Acute (3) Electrolyte imbalance Status: Resolved (4) Pneumonia Status: Acute (5) Alcohol abuse Status: Acute (6) Chronic venous stasis dermatitis Status: Acute (7) Urinary tract infection Status: Acute (8) Alcoholic cirrhosis Status: Chronic (9) Prophylactic measure Status: Acute Attending/Attestation - Attestation I have personally seen and examined this patient.: Yes I have fully participated in the care of the patient.: Yes I have reviewed all pertinent clinical information, including history, physical exam and plan: Yes Notes (Text): Assessment/Plan 1) Acute Respiratory Failure RLL Infiltrate/Bilateral Pleural Effusions (Large on Right and Moderate on Left) Urinary Tract Infection Assessment/Plan * CT Chest 02/28/18: large right and moderate left pleural effusions and associated consolidations, lingular infiltrate, probable bulla in the right upper lobe however small loculated penumothorax is not excluded, severe diffuse hepatic steatotosis, question hepatic mass versus more focal fatty infiltration involving a large region of the medial upper liver, small perhepatic and persplenic ascites. * CT Chest (03/03/18): stable large bilateral pleural effusions with worsening bilateral infiltrates with areas of consolidations in the upper lung zones as well as compressive atelectasis at the lung bases * s/p intubation 03/03/18; extubated 03/09 * Chest xray (03/07/18): stable bilateral infiltrates right greater than left. Stable position of support apparatus. * s/p thoracentesis 03/07/18 (right side) * Elevated WBC 2078.0, RBC 2708.0, Total Cell count: 11, Neutrophils: 23.0 * pleural fluid: no growth after 3 days; anaerobes no growth * Chest xray (03/07/18): status post right thoracentesis with decrease in right pleural effusion and commensurate re-expansion right lung. no pneumothorax. * Vancomycin 1 gm IV Q8H (Start 03/03-): elevated trough 28.3; hold dose; no therapeutic * sputum culture: no growth * may d/c if not MRSA * MRCA not detected * Zosyn 3.375 gm IV Q6H (02/27/18-present) * Blood Culture 02/27/18: negative to date * Urine Culture 02/27/18: Enterococcus Faecalis sensitive to Vancomycin, Ampicillin, and PCN * Urine culture 03/03/18: no growth * Repeat urine studies today * Sputum culture 03/03/18: normal * Myocplasma IGM: negative * Legionella: negative * HIV nonreactive * ProcalcitoninL 0.43 2). Electrolyte imbalances Assessment/Plan * Repleted 3). Hypothermia-->resolved * Nephrology has signed off. 4). Subdural Hematoma * Neurology (Dr. Loving) on board * Neurosurgery (Dr. Schmitt) on board * CT Head 02/28/18 x 2: small left sided subdural hematoma which has increased in size slightly, small right sided hygroma, mild mass effect with compression of both cerebral hemispheres, mild chronic periventricular white matter ische paul changes, mild generalized volume loss * CT Head and Neck 02/27/18: tiny calcified plaque left carotid bifurcation, NO evidence of large aneurysm/vascular malformation * Seen by Neurosurgery Dr. Coleman 02/18/18: no surgical intervention warranted and will need repeat CT Head in 1 week * CT head (03/02/18): previously noted small left sided acute subdural hematoma has continues to undergo evoluation and now appeats hyodense small but very slightly larger right sided subudral hygroma or chronic subdural hematoma. Extra axial collections continue to exert nerly symmetic mass effect on both cerebral hemispheres with compressions of overlying sulci and ventricles * CT (03/03/18): b/l subdural hematoma appear slightly heterogenous but mostly hypodense consistent with continued evolution * Patient unable to get MRI; patient is intubated * Per neurosurgery, not candidate for drainage; repeat CT head in one week * Repeat CT head 03/13 * NOT acandidate for basically elective drainage SDHs (03/06/18) 5). Alcohol Abuse Cirrhosis * Upon exam 02/28/18: evidence of tremors of the upper body, aware of month and year and president * Patient is on Precedex * d/c ativan taper to prevent oversedation * Abdominal US: nodular hepatic contour consistent with cirrhosis. Echogenic liver may be seen in setting of hepatic parenchymal disease of fatty infiltation, small ascites, gallstones. * Monitor * Ammonia on admission normal * Folic acid 1mg PO daily * Thiamine 100mg PO BID * MVI 1 tab PO daily 6). Anemia Likely Secondary to Hx Alcohol Abuse * Monitor HgB/Hct * Vitamin B12 normal at 856 * Folate normal at 3.3 * Iron Studies: Total Iron at 117, % Saturation 55, Ferritin 689, TIBC low at 212 * Patient is Cirrhotic per Ab US 7). Thrombocytopenia Likely Secondary to Hx Alcohol Abuse * Has not received anticoagulation secondary to subdural hematoma * patient is cirrhotic per US 8). Elevated LFTs Likely Secondary to Hx Alcohol Abuse * Abdominal U/S 02/27/18: nodular hepatic contour consistent with cirrhosis, echogenic liver may be seen in the setting of hepatic parynchymal disease or fatty infiltration, small ascites, gallstones * Hepatitis Panel 02/27/18: negative * HIV 4th Generation 02/27/18: negative 9). Hyponatremia (resolved) * nephrology (Dr. Taylor) on consult-->help appreciated * Agree with IV NS, correction of electrolyte abnormalites * Advanced GT feeds as tolerated 10). Elevated CPK (resolved) * normal at 133 11). Prophylaxis * NO anticoagulation considering the Subdural Hematoma, Anemia, Thrombocytopenia * SCDS b/l * Venous dopplers negative * intubated on 03/03/18; extubated 03/09/18 * s/p Thoracentesis 03/07/18 * Reconsult PT/OT * Subacute rehab eval Disposition: patient extubated on 03/09/18. Repeat urine studies pending. Pleural culture: no growth. patient is not neurosurgical candidate; we will need f/u CT head (03/14) per neurosurgery recommendation. Fall risk. PT/OT eval. Subacute rehab reval. Follow-up with ID for PO antibiotic to cover for pneumonia.
[2018-03-11] MEDS: Lactobacillus Acidophilus 500 MU Cap PO SCH ×2 (10:33→18:37)
[2018-03-11] MEDS: Enoxaparin 40 mg Syringe SC SCH (10:33)
[2018-03-11] MEDS: Multiple Vitamins Tab PO SCH (10:34)
[2018-03-11] MEDS: Multivitamin With Minerals Tab PO SCH (10:34)
[2018-03-11] MEDS: Vitamins A & D Oint UD Foilpak TOP SCH ×2 (10:35→18:37)
[2018-03-12] MEDS: Piperacill/Tazo 3.375gm in Dex 3.375 GM/50 ML BAG IVPB SCH ×4 (01:09→18:39)
[2018-03-12] MEDS: Albuterol-Ipratrop 3 mg / 0.5 (3 ml) UD INH SCH ×4 (02:17→20:51)
[2018-03-12] MEDS: Pantoprazole 40 mg Susp UD PO SCH (05:58)
[2018-03-12 07:39] LABS: BASO % 0.2 % (0.0-2.0); EOS % 0.5 % (0.0-4.0); HEMOGLOBIN 8.5 g/dL (12.0-18.0); LYMPH # 1.1 K/uL (1.0-4.3); LYMPH % 15.3 % (20.0-40.0); MEAN CELL VOLUME 102.2 fL (80.0-94.0); MEAN CORPUSCULAR HEMOGLOBIN 34.3 pg (27.0-31.0); MEAN CORPUSCULAR HGB CONC 33.5 g/dL (33.0-37.0); MEAN PLATELET VOLUME 10.7 fL (7.2-11.7); MONO # 0.7 K/uL (0.0-0.8); MONO % 9.3 % (0.0-10.0); NEUT # 5.6 K/uL (1.8-7.0); NEUT % 74.7 % (50.0-75.0); RBC 2.49 Mil/uL (4.40-5.90); RED CELL DISTRIBUTION WIDTH 19.1 % (11.5-14.5); WHITE BLOOD COUNT 7.5 K/uL (4.8-10.8)
[2018-03-12 08:06] LABS: ALB/GLOB RATIO 0.6 (1.0-2.1); ALBUMIN 2.6 g/dL (3.5-5.0); ALT/SGPT 52 U/L (21-72); AST/SGOT 85 U/L (17-59); BLOOD UREA NITROGEN 12 mg/dL (9-20); CALCIUM 7.9 mg/dl (8.6-10.4); GFR NON-AFRICAN AMERICAN > 60
[2018-03-12] MEDS ORDERED: Potassium Chloride 20 mEq ER Tab PO ONE (08:58)
[2018-03-12] MEDS ORDERED: Magnesium Sulfate 1 gm in D5W 1 GM/100 ML BAG IVPB ONE (08:58)
[2018-03-12] MEDS: Lactobacillus Acidophilus 500 MU Cap PO SCH (10:06)
[2018-03-12] MEDS: Enoxaparin 40 mg Syringe SC SCH (10:07)
[2018-03-12] MEDS: Vitamins A & D Oint UD Foilpak TOP SCH ×2 (10:07→18:45)
[2018-03-12] MEDS: Multivitamin With Minerals Tab PO SCH (10:11)
[2018-03-12] MEDS ORDERED: Permethrin 1% Kit 59 ML BOTTLE TOP ONE (10:49)
--- NOTE | 2018-03-12 14:24 | CP.PCM.PN ---
Subjective - Date & Time of Evaluation Date of Evaluation: 03/12/18 Time of Evaluation: 08:00 - Subjective Subjective: seen in ICU extubated alert NAD Objective - Vital Signs/Intake and Output Vital Signs (last 24 hours): Temp Pulse Resp BP Pulse Ox 98 F 74 18 128/77 99 03/12/18 04:00 03/12/18 04:00 03/12/18 04:00 03/12/18 04:00 03/12/18 04:00 Intake and Output: 03/12/18 03/12/18 06:59 18:59 Intake Total 1110 Output Total 1400 Balance -290 - Medications Medications: Current Medications Albuterol/Ipratropium (Duoneb 3 Mg/0.5 Mg (3 Ml) Ud) 3 ml INH RQ6 [facility] Last Admin: 03/12/18 13:19 Dose: Not Given Aspirin (Aspirin Chewable) 81 mg PO DAILY [facility] Last Admin: 03/12/18 10:07 Dose: 81 mg Chlordiazepoxide (Librium) 10 mg PO Q24H [facility] Last Admin: 03/12/18 10:11 Dose: 10 mg Dextrose (Glutose 15) 0 gm PO ONCE PRN; Protocol PRN Reason: Hypoglycemia Protocol Docusate Sodium (Colace) 100 mg PO DAILY PRN PRN Reason: Constipation Last Admin: 03/07/18 18:21 Dose: 100 mg Enoxaparin Sodium (Lovenox) 40 mg SC DAILY [facility] Last Admin: 03/12/18 10:07 Dose: 40 mg Folic Acid (Folic Acid) 1 mg PO DAILY [facility] Last Admin: 03/12/18 10:07 Dose: 1 mg Glucagon (Glucagen Diagnostic Kit) 1 mg IM STAT PRN; Protocol PRN Reason: Hypoglycemia Protocol Piperacillin Sod/Tazobactam Sod (Zosyn 3.375 Gm Iv Premix) 3.375 gm in 50 mls @ 100 mls/hr IVPB Q6H [facility]; Protocol Last Admin: 03/12/18 05:58 Dose: 100 mls/hr Lactobacillus Acidophilus (Bacid Acidophilus) 1 cap PO BID [facility] Last Admin: 03/12/18 10:06 Dose: 1 cap Metoprolol Tartrate (Lopressor) 12.5 mg PO BID [facility] Last Admin: 03/12/18 10:06 Dose: 12.5 mg Multivitamins/Minerals (Therapeutic-M Tab) 1 tab PO 0800 [facility] Last Admin: 03/12/18 10:11 Dose: 1 tab Pantoprazole Sodium (Protonix Susp) 40 mg PO 0600 [facility] Last Admin: 03/12/18 05:58 Dose: 40 mg Thiamine HCl (Vitamin B1 Tab) 100 mg PO BID [facility] Last Admin: 03/12/18 10:07 Dose: 100 mg Vitamin A (Vitamin A & D Oint Ud Foilpak) 1 ea TOP BID [facility] Last Admin: 03/12/18 10:07 Dose: 1 ea - Labs Labs: 03/12/18 07:26 03/12/18 07:26 PT 19.3 SECONDS (9.7-12.2) H 03/09/18 06:21 INR 1.8 03/09/18 06:21 APTT 37 SECONDS (21-34) H 03/05/18 05:51 - Constitutional Appears: Non-toxic, Chronically Ill - Head Exam Head Exam: NORMOCEPHALIC - Eye Exam Eye Exam: PERRL. absent: Scleral icterus - ENT Exam ENT Exam: Mucous Membranes Dry - Neck Exam Neck Exam: absent: Lymphadenopathy - Respiratory Exam Respiratory Exam: Decreased Breath Sounds - Cardiovascular Exam Cardiovascular Exam: REGULAR RHYTHM - GI/Abdominal Exam GI & Abdominal Exam: Distended, Soft - Rectal Exam Rectal Exam: Deferred - Exam Exam: NORMAL INSPECTION - Extremities Exam Extremities Exam: absent: Pedal Edema - Back Exam Back Exam: absent: CVA tenderness (L), CVA tenderness (R) - Neurological Exam Neurological Exam: Alert, Awake, Oriented x3 Assessment and Plan (1) Pneumonia Status: Acute (2) Sepsis Status: Acute (3) Subdural hemorrhage Status: Acute (4) Alcohol abuse with intoxication Status: Acute (5) Chronic venous stasis dermatitis Status: Acute - Assessment and Plan (Free Text) Assessment: pneumonia improving cont iv rx 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
--- NOTE | 2018-03-12 20:16 | CP.PCM.PN ---
Subjective - Date & Time of Evaluation Date of Evaluation: 03/12/18 Time of Evaluation: 18:45 - Subjective Subjective: Medical Attending Note: Patient seen and examined at bedside. Patient discovered having lice in his belongings and in his room. Patient's belongings discarded, washed, room washed and transferred room. Patient denies headache, denies chills, denies chest pain, denies shortness of breathe, denies abdominal pain, denies nausea, denies vomitting. Patient is still unsteady in his gait. Objective - Vital Signs/Intake and Output Vital Signs (last 24 hours): Temp Pulse Resp BP Pulse Ox 98 F 74 18 128/77 99 03/12/18 04:00 03/12/18 04:00 03/12/18 04:00 03/12/18 04:00 03/12/18 04:00 Intake and Output: 03/12/18 03/13/18 18:59 06:59 Intake Total 800 Output Total 750 Balance 50 - Medications Medications: Current Medications Albuterol/Ipratropium (Duoneb 3 Mg/0.5 Mg (3 Ml) Ud) 3 ml INH RQ6 [facility] Last Admin: 03/12/18 13:19 Dose: Not Given Aspirin (Aspirin Chewable) 81 mg PO DAILY [facility] Last Admin: 03/12/18 10:07 Dose: 81 mg Chlordiazepoxide (Librium) 10 mg PO Q24H [facility] Last Admin: 03/12/18 10:11 Dose: 10 mg Dextrose (Glutose 15) 0 gm PO ONCE PRN; Protocol PRN Reason: Hypoglycemia Protocol Docusate Sodium (Colace) 100 mg PO DAILY PRN PRN Reason: Constipation Last Admin: 03/07/18 18:21 Dose: 100 mg Enoxaparin Sodium (Lovenox) 40 mg SC DAILY [facility] Last Admin: 03/12/18 10:07 Dose: 40 mg Folic Acid (Folic Acid) 1 mg PO DAILY [facility] Last Admin: 03/12/18 10:07 Dose: 1 mg Glucagon (Glucagen Diagnostic Kit) 1 mg IM STAT PRN; Protocol PRN Reason: Hypoglycemia Protocol Piperacillin Sod/Tazobactam Sod (Zosyn 3.375 Gm Iv Premix) 3.375 gm in 50 mls @ 100 mls/hr IVPB Q6H [facility]; Protocol Stop: 03/13/18 00:01 Last Admin: 03/12/18 18:39 Dose: 100 mls/hr Lactobacillus Acidophilus (Bacid Acidophilus) 1 cap PO BID [facility] Last Admin: 03/12/18 10:06 Dose: 1 cap Metoprolol Tartrate (Lopressor) 12.5 mg PO BID [facility] Last Admin: 03/12/18 18:45 Dose: 12.5 mg Moxifloxacin HCl (Avelox) 400 mg PO DAILY [facility]; Protocol Stop: 03/20/18 10:01 Multivitamins/Minerals (Therapeutic-M Tab) 1 tab PO 0800 [facility] Last Admin: 03/12/18 10:11 Dose: 1 tab Pantoprazole Sodium (Protonix Susp) 40 mg PO 0600 [facility] Last Admin: 03/12/18 05:58 Dose: 40 mg Thiamine HCl (Vitamin B1 Tab) 100 mg PO BID [facility] Last Admin: 03/12/18 18:42 Dose: 100 mg Vitamin A (Vitamin A & D Oint Ud Foilpak) 1 ea TOP BID [facility] Last Admin: 03/12/18 18:45 Dose: 1 ea - Labs Labs: 03/12/18 07:26 03/12/18 07:26 PT 19.3 SECONDS (9.7-12.2) H 03/09/18 06:21 INR 1.8 03/09/18 06:21 APTT 37 SECONDS (21-34) H 03/05/18 05:51 - Constitutional Appears: Non-toxic, No Acute Distress - Head Exam Head Exam: NORMAL INSPECTION - Eye Exam Eye Exam: EOMI - ENT Exam ENT Exam: Mucous Membranes Moist - Respiratory Exam Respiratory Exam: Clear to Ausculation Bilateral, NORMAL BREATHING PATTERN. absent: Rales, Rhonchi, Wheezes - Cardiovascular Exam Cardiovascular Exam: REGULAR RHYTHM, +S1, +S2 - GI/Abdominal Exam GI & Abdominal Exam: Soft, Normal Bowel Sounds. absent: Distended, Firm, Guarding, Rigid, Tenderness, Rebound - Extremities Exam Extremities Exam: absent: Pedal Edema, Tenderness Additional comments: venous stasis changes - Back Exam Back Exam: absent: CVA tenderness (L), CVA tenderness (R) - Neurological Exam Neurological Exam: Alert, Awake, Oriented x3 - Psychiatric Exam Psychiatric exam: Normal Affect, Normal Mood - Skin Skin Exam: Dry, Normal Color, Warm Assessment and Plan (1) Sepsis Status: Acute (2) Subdural hemorrhage Status: Acute (3) Electrolyte imbalance Status: Resolved (4) Pneumonia Status: Acute (5) Alcohol abuse Status: Acute (6) Chronic venous stasis dermatitis Status: Acute (7) Urinary tract infection Status: Acute (8) Alcoholic cirrhosis Status: Chronic (9) Prophylactic measure Status: Acute Attending/Attestation - Attestation I have personally seen and examined this patient.: Yes I have fully participated in the care of the patient.: Yes I have reviewed all pertinent clinical information, including history, physical exam and plan: Yes Notes (Text): Assessment/Plan 1) Acute Respiratory Failure RLL Infiltrate/Bilateral Pleural Effusions (Large on Right and Moderate on Left) Urinary Tract Infection Assessment/Plan * CT Chest 02/28/18: large right and moderate left pleural effusions and associated consolidations, lingular infiltrate, probable bulla in the right upper lobe however small loculated penumothorax is not excluded, severe diffuse hepatic steatotosis, question hepatic mass versus more focal fatty infiltration involving a large region of the medial upper liver, small perhepatic and persplenic ascites. * CT Chest (03/03/18): stable large bilateral pleural effusions with worsening bilateral infiltrates with areas of consolidations in the upper lung zones as well as compressive atelectasis at the lung bases * s/p intubation 03/03/18; extubated 03/09 * Chest xray (03/07/18): stable bilateral infiltrates right greater than left. Stable position of support apparatus. * s/p thoracentesis 03/07/18 (right side) * Elevated WBC 2078.0, RBC 2708.0, Total Cell count: 11, Neutrophils: 23.0 * pleural fluid: no growth after 3 days; anaerobes no growth * Chest xray (03/07/18): status post right thoracentesis with decrease in right pleural effusion and commensurate re-expansion right lung. no pneumothorax. * Vancomycin 1 gm IV Q8H (Start 03/03-): elevated trough 28.3; hold dose; no therapeutic * sputum culture: no growth * may d/c if not MRSA * MRCA not detected * Zosyn 3.375 gm IV Q6H (02/27/18-present) * Resident has spoken with ID, switch to Avelox 400mg PO daily to finish 7 day course to start 03/13/18 * Blood Culture 02/27/18: negative to date * Urine Culture 02/27/18: Enterococcus Faecalis sensitive to Vancomycin, Ampicillin, and PCN * Urine culture 03/03/18: no growth * Repeat urine studies today * Sputum culture 03/03/18: normal * Myocplasma IGM: negative * Legionella: negative * HIV nonreactive * Procalcitonin: 0.43 2). Electrolyte imbalances Assessment/Plan * Repleted 3). Hypothermia-->resolved * Nephrology has signed off. 4). Subdural Hematoma * Neurology (Dr. Loving) on board * Neurosurgery (Dr. Schmitt) on board * CT Head 02/28/18 x 2: small left sided subdural hematoma which has increased in size slightly, small right sided hygroma, mild mass effect with compression of both cerebral hemispheres, mild chronic periventricular white matter ischemic changes, mild generalized volume loss * CT Head and Neck 02/27/18: tiny calcified plaque left carotid bifurcation, NO evidence of large aneurysm/vascular malformation * Seen by Neurosurgery Dr. Coleman 02/18/18: no surgical intervention warranted and will need repeat CT Head in 1 week * CT head (03/02/18): previously noted small left sided acute subdural hematoma has continues to undergo evoluation and now appeats hyodense small but very sl ightly larger right sided subudral hygroma or chronic subdural hematoma. Extra axial collections continue to exert nerly symmetic mass effect on both cerebral hemispheres with compressions of overlying sulci and ventricles * CT (03/03/18): b/l subdural hematoma appear slightly heterogenous but mostly hypodense consistent with continued evolution * Patient unable to get MRI; patient is intubated * Per neurosurgery, not candidate for drainage; repeat CT head in one week * Repeat CT head 03/13-->f/u neurosurgery * NOT a candidate for basically elective drainage SDHs (03/06/18) 5). Alcohol Abuse Cirrhosis * Upon exam 02/28/18: evidence of tremors of the upper body, aware of month and year and president * Patient is on Precedex * d/c ativan taper to prevent oversedation * Abdominal US: nodular hepatic contour consistent with cirrhosis. Echogenic liver may be seen in setting of hepatic parenchymal disease of fatty infiltation, small ascites, gallstones. * Monitor * Ammonia on admission normal * Folic acid 1mg PO daily * Thiamine 100mg PO BID * MVI 1 tab PO daily 6). Anemia Likely Secondary to Hx Alcohol Abuse * Monitor HgB/Hct * Vitamin B12 normal at 856 * Folate normal at 3.3 * Iron Studies: Total Iron at 117, % Saturation 55, Ferritin 689, TIBC low at 212 * Patient is Cirrhotic per Ab US 7). Thrombocytopenia Likely Secondary to Hx Alcohol Abuse * Has not received anticoagulation secondary to subdural hematoma * patient is cirrhotic per US 8). Elevated LFTs Likely Secondary to Hx Alcohol Abuse * Abdominal U/S 02/27/18: nodular hepatic contour consistent with cirrhosis, echogenic liver may be seen in the setting of hepatic parynchymal disease or fatty infiltration, small ascites, gallstones * Hepatitis Panel 02/27/18: negative * HIV 4th Generation 02/27/18: negative 9). Hyponatremia (resolved) * nephrology (Dr. Taylor) on consult-->help appreciated * Agree with IV NS, correction of electrolyte abnormalites * Advanced GT feeds as tolerated 10). Elevated CPK (resolved) * normal at 133 11) Lice * Patient was washed, room washed, lice, given permetharin cream 03/12/18 11). Prophylaxis * NO anticoagulation considering the Subdural Hematoma, Anemia, Thrombocytopenia * SCDS b/l * Venous dopplers negative * intubated on 03/03/18; extubated 03/09/18 * s/p Thoracentesis 03/07/18 * Reconsult PT/OT * Subacute rehab eval Disposition: patient extubated on 03/09/18. Pleural culture: no growth. patient is not neurosurgical candidate; we will need f/u CT head (03/13) per neurosurgery recommendation. Fall risk. PT/OT eval. Subacute rehab reval. Patient to complete 7 day course of Avelox 400mg PO daily to start 03/13/18.
[2018-03-12 22:39] VITALS: RESP 20
[2018-03-13] MEDS: Albuterol-Ipratrop 3 mg / 0.5 (3 ml) UD INH SCH (02:39)
[2018-03-13 04:21] VITALS: O2SAT 95
[2018-03-13] MEDS: Pantoprazole 40 mg Susp UD PO SCH (05:16)
[2018-03-13 05:49] LABS: BASO % 0.4 % (0.0-2.0); EOS # 0.1 K/uL (0.0-0.7); HEMOGLOBIN 8.8 g/dL (12.0-18.0); LYMPH % 15.2 % (20.0-40.0); MEAN CORPUSCULAR HGB CONC 33.6 g/dL (33.0-37.0); MEAN PLATELET VOLUME 10.4 fL (7.2-11.7); MONO # 0.6 K/uL (0.0-0.8); MONO % 9.4 % (0.0-10.0); NEUT # 4.7 K/uL (1.8-7.0); NRBC % 0.1 % (0.0-2.0); RBC 2.58 Mil/uL (4.40-5.90); RED CELL DISTRIBUTION WIDTH 18.2 % (11.5-14.5); WHITE BLOOD COUNT 6.3 K/uL (4.8-10.8)
[2018-03-13 06:10] LABS: ALB/GLOB RATIO 0.6 (1.0-2.1); ALBUMIN 2.6 g/dL (3.5-5.0); ALT/SGPT 52 U/L (21-72); AST/SGOT 80 U/L (17-59); BLOOD UREA NITROGEN 10 mg/dL (9-20); CALCIUM 7.6 mg/dl (8.6-10.4); GFR NON-AFRICAN AMERICAN > 60
--- NOTE | 2018-03-13 07:23 | CP.PCM.PN ---
Objective - Vital Signs/Intake and Output Vital Signs (last 24 hours): Temp Pulse Resp BP Pulse Ox 99 F 88 20 118/63 95 03/13/18 04:00 03/13/18 04:00 03/13/18 04:00 03/13/18 04:00 03/13/18 04:00 Intake and Output: 03/13/18 03/13/18 06:59 18:59 Intake Total 480 Output Total 2200 Balance -1720 - Medications Medications: Current Medications Albuterol/Ipratropium (Duoneb 3 Mg/0.5 Mg (3 Ml) Ud) 3 ml INH RQ6 [facility] Last Admin: 03/13/18 02:39 Dose: Not Given Aspirin (Aspirin Chewable) 81 mg PO DAILY [facility] Last Admin: 03/12/18 10:07 Dose: 81 mg Chlordiazepoxide (Librium) 10 mg PO Q24H [facility] Last Admin: 03/12/18 10:11 Dose: 10 mg Dextrose (Glutose 15) 0 gm PO ONCE PRN; Protocol PRN Reason: Hypoglycemia Protocol Docusate Sodium (Colace) 100 mg PO DAILY PRN PRN Reason: Constipation Last Admin: 03/07/18 18:21 Dose: 100 mg Enoxaparin Sodium (Lovenox) 40 mg SC DAILY [facility] Last Admin: 03/12/18 10:07 Dose: 40 mg Folic Acid (Folic Acid) 1 mg PO DAILY [facility] Last Admin: 03/12/18 10:07 Dose: 1 mg Glucagon (Glucagen Diagnostic Kit) 1 mg IM STAT PRN; Protocol PRN Reason: Hypoglycemia Protocol Lactobacillus Acidophilus (Bacid Acidophilus) 1 cap PO BID [facility] Last Admin: 03/12/18 10:06 Dose: 1 cap Metoprolol Tartrate (Lopressor) 12.5 mg PO BID [facility] Last Admin: 03/12/18 18:45 Dose: 12.5 mg Moxifloxacin HCl (Avelox) 400 mg PO DAILY [facility]; Protocol Stop: 03/20/18 10:01 Multivitamins/Minerals (Therapeutic-M Tab) 1 tab PO 0800 [facility] Last Admin: 03/12/18 10:11 Dose: 1 tab Pantoprazole Sodium (Protonix Susp) 40 mg PO 0600 [facility] Last Admin: 03/13/18 05:16 Dose: 40 mg Thiamine HCl (Vitamin B1 Tab) 100 mg PO BID [facility] Last Admin: 03/12/18 18:42 Dose: 100 mg Vitamin A (Vitamin A & D Oint Ud Foilpak) 1 ea TOP BID [facility] Last Admin: 03/12/18 18:45 Dose: 1 ea - Labs Labs: 03/13/18 05:37 03/13/18 05:37 PT 19.3 SECONDS (9.7-12.2) H 03/09/18 06:21 INR 1.8 03/09/18 06:21 APTT 37 SECONDS (21-34) H 03/05/18 05:51
[2018-03-13] MEDS: Multivitamin With Minerals Tab PO SCH (08:08)
[2018-03-13 08:13] VITALS: BP 127/75; PULSE 82
--- NOTE | 2018-03-13 09:53 | CT ---
Date of service: 03/13/2018 PROCEDURE: CT HEAD WITHOUT CONTRAST. HISTORY: monitor subdural hematoma COMPARISON: 03/10/2018 TECHNIQUE: Axial computed tomography images were obtained through the head/brain without intravenous contrast. Radiation dose: Total exam DLP = 1311.92 mGy-cm. This CT exam was performed using one or more of the following dose reduction techniques: Automated exposure control, adjustment of the mA and/or kV according to patient size, and/or use of iterative reconstruction technique. FINDINGS: HEMORRHAGE: Bilateral frontal subdural collections are again noted. The right collection is persistently hypodense. There is acute on chronic hemorrhage in the left subdural collection with a small amount of dependent high attenuation blood in the left subdural extra-axial collection adjacent to the left temporal lobe. The size of the subdural collections overall has not changed. There is some flattening of the frontal gyri bilaterally. There is no midline shift. No other intracranial hemorrhage is identified elsewhere. BRAIN: No intracranial mass. Mild bilateral frontal atrophy. Mild cerebellar atrophy. No evidence of acute infarct. VENTRICLES: Unremarkable. No hydrocephalus. CALVARIUM: Unremarkable. PARANASAL SINUSES: Unremarkable as visualized. No significant inflammatory changes. MASTOID AIR CELLS: Unremarkable as visualized. No inflammatory changes. OTHER FINDINGS: None. IMPRESSION: Bilateral frontal chronic subdural hemorrhages with small amount of acute on chronic hemorrhage in the left temporal convexity subdural space. No midline shift. No other significant abnormality.
[2018-03-13] MEDS: Lactobacillus Acidophilus 500 MU Cap PO SCH (10:01)
[2018-03-13] MEDS: Vitamins A & D Oint UD Foilpak TOP SCH (10:02)
[2018-03-13] MEDS: Enoxaparin 40 mg Syringe SC SCH (10:02)
--- NOTE | 2018-03-13 12:58 | CP.PCM.PN ---
Subjective - Date & Time of Evaluation Date of Evaluation: 03/13/18 Time of Evaluation: 08:00 - Subjective Subjective: improving for possible d/c on PO augmentin Objective - Vital Signs/Intake and Output Vital Signs (last 24 hours): Temp Pulse Resp BP Pulse Ox 98.2 F 82 20 127/75 95 03/13/18 12:00 03/13/18 08:00 03/13/18 08:00 03/13/18 08:00 03/13/18 08:00 Intake and Output: 03/13/18 03/13/18 06:59 18:59 Intake Total 480 360 Output Total 2200 200 Balance -1720 160 - Medications Medications: Current Medications Aspirin (Aspirin Chewable) 81 mg PO DAILY [facility] Last Admin: 03/13/18 10:00 Dose: 81 mg Chlordiazepoxide (Librium) 10 mg PO Q24H [facility] Last Admin: 03/13/18 08:08 Dose: 10 mg Dextrose (Glutose 15) 0 gm PO ONCE PRN; Protocol PRN Reason: Hypoglycemia Protocol Docusate Sodium (Colace) 100 mg PO DAILY PRN PRN Reason: Constipation Last Admin: 03/07/18 18:21 Dose: 100 mg Enoxaparin Sodium (Lovenox) 40 mg SC DAILY [facility] Last Admin: 03/13/18 10:02 Dose: 40 mg Folic Acid (Folic Acid) 1 mg PO DAILY [facility] Last Admin: 03/13/18 10:01 Dose: 1 mg Glucagon (Glucagen Diagnostic Kit) 1 mg IM STAT PRN; Protocol PRN Reason: Hypoglycemia Protocol Lactobacillus Acidophilus (Bacid Acidophilus) 1 cap PO BID [facility] Last Admin: 03/13/18 10:01 Dose: 1 cap Metoprolol Tartrate (Lopressor) 12.5 mg PO BID [facility] Last Admin: 03/13/18 10:01 Dose: 12.5 mg Moxifloxacin HCl (Avelox) 400 mg PO DAILY [facility]; Protocol Stop: 03/20/18 10:01 Last Admin: 03/13/18 10:00 Dose: 400 mg Multivitamins/Minerals (Therapeutic-M Tab) 1 tab PO 0800 [facility] Last Admin: 03/13/18 08:08 Dose: 1 tab Pantoprazole Sodium (Protonix Susp) 40 mg PO 0600 [facility] Last Admin: 03/13/18 05:16 Dose: 40 mg Thiamine HCl (Vitamin B1 Tab) 100 mg PO BID [facility] Last Admin: 03/13/18 10:02 Dose: 100 mg Vitamin A (Vitamin A & D Oint Ud Foilpak) 1 ea TOP BID [facility] Last Admin: 03/13/18 10:02 Dose: 1 ea - Labs Labs: 03/13/18 05:37 03/13/18 05:37 PT 19.3 SECONDS (9.7-12.2) H 03/09/18 06:21 INR 1.8 03/09/18 06:21 APTT 37 SECONDS (21-34) H 03/05/18 05:51 - Constitutional Appears: Non-toxic, Chronically Ill - Head Exam Head Exam: NORMOCEPHALIC - Eye Exam Eye Exam: absent: Scleral icterus - ENT Exam ENT Exam: Mucous Membranes Dry - Neck Exam Neck Exam: absent: Lymphadenopathy - Respiratory Exam Respiratory Exam: Decreased Breath Sounds - Cardiovascular Exam Cardiovascular Exam: REGULAR RHYTHM - GI/Abdominal Exam GI & Abdominal Exam: Distended, Soft Assessment and Plan (1) Pneumonia Status: Acute (2) Sepsis Status: Acute (3) Subdural hemorrhage Status: Acute (4) Alcohol abuse with intoxication Status: Acute (5) Chronic venous stasis dermatitis Status: Acute
[2018-03-13 16:29] VITALS: TEMP 97.8
--- NOTE | 2018-03-13 19:50 | CP.PCM.DIS ---
Provider - Provider Date of Admission: 02/27/18 14:04 Attending physician: Judie Rossi DO Primary care physician: Sonya Dove Consults: Dr. Moss (ID), Dr. Dobson (nephrology), Dr. Loving (neurology), Dr. Collins (IR), Dr. Wynn (neurosurgery) Time Spent in preparation of Discharge (in minutes): 40 Diagnosis - Discharge Diagnosis (1) Subdural hemorrhage Status: Acute Comment: Not surgery candidate, conservative management (2) Pneumonia Status: Acute Comment: Abx, D/C augmentin 875/125 Po X 7days Hospital Course - Lab Results Lab Results: Micro Results 03/07/18 15:23 Pleural Fluid Gram Stain - Final 03/07/18 15:23 Pleural Fluid Body Fluid Culture - Final NO GROWTH AFTER 4 DAYS 03/09/18 12:43 Sputum Induced Gram Stain - Final 03/07/18 15:26 Pleural Fluid Anaerobic Culture - Final NO ANAEROBES ISOLATED. 03/03/18 20:44 Sputum Gram Stain - Final 03/03/18 20:44 Sputum Sputum Culture - Final No growth. 03/03/18 22:37 Urine,Clean Catch Urine Culture - Final No Growth (<1,000 CFU/ML) 02/27/18 13:57 Blood Blood Culture - Final NO GROWTH AFTER 5 DAYS 02/27/18 13:57 Blood Gram Stain - Final TEST NOT PERFORMED 02/27/18 12:58 Blood Blood Culture - Final NO GROWTH AFTER 5 DAYS 02/27/18 12:58 Blood Gram Stain - Final TEST NOT PERFORMED 02/27/18 12:51 Urine Urine Culture - Final Enterococcus Faecalis 02/27/18 16:42 Naris MRSA Culture (Admit) - Final MRSA NOT DETECTED Most Recent Lab Values WBC 6.3 K/uL (4.8-10.8) 03/13/18 05:37 RBC 2.58 Mil/uL (4.40-5.90) L 03/13/18 05:37 Hgb 8.8 g/dL (12.0-18.0) L 03/13/18 05:37 Hct 26.0 % (35.0-51.0) L 03/13/18 05:37 MCV 101.0 fL (80.0-94.0) H 03/13/18 05:37 MCH 34.0 pg (27.0-31.0) H 03/13/18 05:37 MCHC 33.6 g/dL (33.0-37.0) 03/13/18 05:37 RDW 18.2 % (11.5-14.5) H 03/13/18 05:37 Plt Count 118 K/uL (130-400) L 03/13/18 05:37 MPV 10.4 fL (7.2-11.7) 03/13/18 05:37 Neut % (Auto) 74.0 % (50.0-75.0) 03/13/18 05:37 Lymph % (Auto) 15.2 % (20.0-40.0) L 03/13/18 05:37 [place] % (Auto) 9.4 % (0.0-10.0) 03/13/18 05:37 Eos % (Auto) 1.0 % (0.0-4.0) 03/13/18 05:37 Baso % (Auto) 0.4 % (0.0-2.0) 03/13/18 05:37 Neut # (Auto) 4.7 K/uL (1.8-7.0) 03/13/18 05:37 Lymph # (Auto) 1.0 K/uL (1.0-4.3) 03/13/18 05:37 [place] # (Auto) 0.6 K/uL (0.0-0.8) 03/13/18 05:37 Eos # (Auto) 0.1 K/uL (0.0-0.7) 03/13/18 05:37 Baso # (Auto) 0.0 K/uL (0.0-0.2) 03/13/18 05:37 Neutrophils % (Manual) 86 % (50-75) H 03/03/18 06:12 Band Neutrophils % 6 % (0-2) H 03/01/18 05:06 Lymphocytes % (Manual) 6 % (20-40) L 03/03/18 06:12 Monocytes % (Manual) 7 % (0-10) 03/03/18 06:12 Eosinophils % (Manual) 1 % (0-4) 03/03/18 06:12 Differential Comment 03/13/18 05:37 Platelet Estimate Decreased (NORMAL) L 03/03/18 06:12 Hypochromasia (manual) Slight 03/03/18 06:12 Poikilocytosis (manual Slight 03/03/18 06:12 Basophilic Stippling Slight 03/01/18 05:06 Anisocytosis (manual) Slight 03/03/18 06:12 Target Cells Moderate 02/28/18 07:14 Ovalocytes Moderate 03/01/18 05:06 [place] Cells Slight 02/27/18 12:58 PT 19.3 SECONDS (9.7-12.2) H 03/09/18 06:21 INR 1.8 03/09/18 06:21 APTT 37 SECONDS (21-34) H 03/05/18 05:51 Puncture Site Rra 03/09/18 16:52 pCO2 30 mm/Hg (35-45) L 03/09/18 16:52 pO2 89 mm/Hg (80-100) 03/09/18 16:52 HCO3 25.8 mmol/L (21-28) 03/09/18 16:52 ABG pH 7.50 (7.35-7.45) H 03/09/18 16:52 ABG Total CO2 24.3 mmol/L (22-28) 03/09/18 16:52 ABG O2 Saturation 99.3 % (95-98) H 03/09/18 16:52 ABG Base Excess 1.1 mmol/L (-2.0-3.0) 03/09/18 16:52 ABG Hemoglobin 16.8 g/dL (11.7-17.4) 03/09/18 04:30 ABG Carboxyhemoglobin 2.9 % (0.5-1.5) H 03/09/18 04:30 POC ABG HHb (Measured) -0.2 % (0.0-5.0) L 03/09/18 04:30 ABG Methemoglobin 0.9 % (0.0-3.0) 03/09/18 04:30 Rei Test Na 03/09/18 16:52 ABG Potassium 4.7 mmol/L (3.6-5.2) 03/09/18 16:52 VBG pH 7.34 (7.32-7.43) 02/27/18 12:55 VBG pCO2 41 mmHg (40-60) 02/27/18 12:55 VBG HCO3 20.7 mmol/L 02/27/18 12:55 VBG Total CO2 23.4 mmol/L (22-28) 02/27/18 12:55 VBG O2 Sat (Calc) 40.6 % (40-65) 02/27/18 12:55 VBG Base Excess -3.5 mmol/L (0.0-2.0) L 02/27/18 12:55 VBG Potassium 2.7 mmol/L (3.6-5.2) L 02/27/18 12:55 A-a O2 Difference 73.0 mm/Hg 03/09/18 16:52 Respiratory Index 0.8 03/09/18 16:52 Hgb O2 Saturation 96.4 % (95.0-98.0) 03/09/18 04:30 Sodium 134.0 mmol/l (132-148) 03/09/18 16:52 Chloride 106.0 mmol/L (98-107) 03/09/18 16:52 Glucose 151 mg/dl (75-110) H 03/09/18 16:52 Lactate 1.6 mmol/L (0.7-2.1) 03/09/18 16:52 Vent Mode Prvc 03/09/18 04:30 Mechanical Rate 16 03/09/18 04:30 FiO2 28.0 % 03/09/18 16:52 Tidal Volume 450 03/09/18 04:30 PEEP 5 03/09/18 04:30 Inspiratory BiPAP 16 03/02/18 10:06 Expiratory BiPAP 6 03/02/18 10:06 Crit Value Called To Dr ray 02/27/18 12:55 Crit Value Called By [facility] 02/27/18 12:55 Crit Value Read Back Y 02/27/18 12:55 Blood Gas Notified Time 1300 02/27/18 12:55 Sodium 126 mmol/L (132-148) L 03/13/18 05:37 Potassium 4.1 mmol/L (3.6-5.2) 03/13/18 05:37 Chloride 91 mmol/L (98-107) L 03/13/18 05:37 Carbon Dioxide 26 mmol/L (22-30) 03/13/18 05:37 Anion Gap 12 (10-20) 03/13/18 05:37 BUN 10 mg/dL (9-20) 03/13/18 05:37 Creatinine 0.7 mg/dL (0.8-1.5) L 03/13/18 05:37 Est GFR ( Amer) > 60 03/13/18 05:37 Est GFR (Non-Af Amer) > 60 03/13/18 05:37 POC Glucose (mg/dL) 118 mg/dL (65-110) H 03/13/18 16:11 Random Glucose 122 mg/dL (75-110) H 03/13/18 05:37 Serum Osmolality 289 mosm/kg (272-300) 03/03/18 11:58 Uric Acid 2.1 mg/dL (3.5-8.5) L 03/04/18 06:19 Calcium 7.6 mg/dl (8.6-10.4) L 03/13/18 05:37 Phosphorus 1.9 mg/dL (2.5-4.5) L 03/13/18 05:37 Magnesium 1.5 mg/dL (1.6-2.3) L 03/13/18 05:37 Iron 117 ug/dL (49-181) 02/28/18 06:34 TIBC 212 ug/dL (250-450) L 02/28/18 06:34 % Saturation 55 (20-55) 02/28/18 06:34 Ferritin 689.0 ng/mL 02/28/18 06:34 Total Bilirubin 4.0 mg/dL (0.2-1.3) H 03/13/18 05:37 AST 80 U/L (17-59) H 03/13/18 05:37 ALT 52 U/L (21-72) 03/13/18 05:37 Alkaline Phosphatase 126 U/L (38-126) 03/13/18 05:37 Ammonia 17 umol/L (9-33) D 03/03/18 11:58 Total Creatine Kinase 133 U/L (55-170) 03/01/18 05:45 Troponin I < 0.0120 ng/mL (0.00-0.120) 02/27/18 12:58 NT-Pro-B Natriuret Pep 332 pg/mL (0-900) 02/27/18 12:58 Total Protein 6.8 g/dL (6.3-8.3) 03/13/18 05:37 Albumin 2.6 g/dL (3.5-5.0) L 03/13/18 05:37 Globulin 4.2 gm/dL (2.2-3.9) H 03/13/18 05:37 Albumin/Globulin Ratio 0.6 (1.0-2.1) L 03/13/18 05:37 Triglycerides 192 mg/dL (0-149) H 02/28/18 06:34 Cholesterol 94 mg/dL (0-199) 02/28/18 06:34 LDL Cholesterol Direct 50 mg/dL (0-129) 02/28/18 06:34 HDL Cholesterol 11 mg/dL (30-70) L 02/28/18 06:34 Vitamin B12 856 pg/mL (239-931) 02/28/18 06:34 Folate 3.3 ng/mL 02/28/18 06:34 Procalcitonin 0.43 NG/ML (0.19-0.49) 03/07/18 08:13 Free T4 1.05 ng/dL (0.78-2.19) 02/28/18 06:34 TSH 3rd Generation 1.22 mIU/L (0.46-4.68) 02/28/18 06:34 Prolactin 21.3 ng/mL (3.7-17.9) H 02/28/18 06:34 Cortisol AM Sample 44.2 ug/dL (4.46-22.7) H 02/28/18 06:34 Arterial Blood Potassium 4.7 mmol/L (3.6-5.2) 03/09/18 16:52 Venous Blood Potassium 2.7 mmol/L (3.6-5.2) L 02/27/18 12:55 Urine Color [place] (YELLOW) 03/10/18 22: Urine Clarity Clear (Clear) 03/10/18 22: Urine pH 5.0 (5.0-8.0) 03/10/18 22: Ur Specific [place] 1.019 (1.003-1.030) 03/10/18 22:29 Urine Protein Negative mg/dL (NEGATIVE) 03/10/18 22: Urine Glucose (UA) Normal mg/dL (Normal) 03/10/18 22:29 Urine Ketones Negative mg/dL (NEGATIVE) 03/10/18 22: Urine Blood Negative (NEGATIVE) 03/10/18 22: Urine Nitrate Negative (NEGATIVE) 03/10/18 22: Urine Bilirubin Negative (NEGATIVE) 03/10/18 22: Urine Urobilinogen 4.0 mg/dL (0.2-1.0) 03/10/18 22:29 Ur Leukocyte Esterase Neg [place]/uL (Negative) 03/10/18 22: Urine WBC (Auto) 1 /hpf (0-5) 03/10/18 22: Urine RBC (Auto) < 1 /hpf (0-3) 03/10/18 22: Ur Squamous Epith Cells < 1 /hpf (0-5) 03/10/18 22:29 Urine Bacteria Occ (<OCC) H 02/27/18 12:51 Urine Osmolality 568 mosm/kg (300-1000) 03/03/18 13:52 Ur Random Sodium 68 mmol/L 03/03/18 13:52 Ur Random Potassium 18.4 mmol/L 03/08/18 13:59 Fluid Source Pleural/thoracentesi 03/07/18 15:23 Fluid Appearance Cloudy (CLEAR) 03/07/18 15:23 Fluid WBC 2078.0 /mm3 (0.0-300.0) H 03/07/18 15:23 Fluid RBC 2708.0 /mm3 (0.0-0.0) H 03/07/18 15:23 Fluid Tot Cell Count 100 (0-0) H 03/07/18 15:23 Fluid Neutrophils 23.0 % (0-0) H 03/07/18 15:23 Fluid Lymphocytes 75.0 % (0-0) H 03/07/18 15:23 Fld Monocyte/Macrophag 2 % (0-0) H 03/07/18 15:23 Fluid Comment 03/07/18 15:23 Pleural Total Protein <3.0 g/dL 03/07/18 15:23 Pleural LDH 494 U/L 03/07/18 15:23 Pleural Glucose 129 mg/dL 03/07/18 15:23 Pleur Adenosine Deamin 11.4 U/L (<9.2) H 03/08/18 10:49 Vancomycin Trough 28.3 ug/mL (5.0-10.0) H 03/04/18 06:19 Random Vancomycin < 5.0 ug/mL 03/06/18 09:31 Urine Opiates Screen Negative (NEGATIVE) 02/27/18 23:16 Urine Methadone Screen Negative (NEGATIVE) 02/27/18 23:16 Ur Barbiturates Screen Negative (NEGATIVE) 02/27/18 23:16 Ur Phencyclidine Scrn Negative (NEGATIVE) 02/27/18 23:16 Ur Amphetamines Screen Negative (NEGATIVE) 02/27/18 23:16 U Benzodiazepines Scrn Negative (NEGATIVE) 02/27/18 23:16 U Oth Cocaine Metabols Negative (NEGATIVE) 02/27/18 23:16 U Cannabinoids Screen Negative (NEGATIVE) 02/27/18 23:16 Alcohol, Quantitative 287 mg/dl (0-10) H 02/27/18 12:58 Hepatitis A IgM Ab Negative (NEGATIVE) 02/27/18 18:44 Hep Bs Antigen Negative (NEGATIVE) 02/27/18 18:44 Hep B Core IgM Ab Negative (NEGATIVE) 02/27/18 18:44 Hepatitis C Antibody Negative (NEGATIVE) 02/27/18 18:44 HIV 1&2 Ag/Ab, 4th Gen Nonreactive (Nonreactive) 02/28/18 06:59 Ur L.pneumophila Ag Negative (NEGATIVE) 03/03/18 22:37 Mycoplasma pneumon IgG 1.41 (<=0.90) H 02/28/18 06:59 Mycoplasma pneumon IgM 216 U/mL (<770) 02/28/18 06:59 Blood Type B POSITIVE 02/27/18 22:37 Blood Type Confirm B POSITIVE 02/27/18 22:37 Antibody Screen Negative 02/27/18 22:37 - Hospital Course Hospital Course: H&P Patient is a 57-year-old male with a past medical history of multiple visits to the ED for alcohol intoxication who presents to brought in by ambulance for alcohol intoxication. Of note, the patient is homeless and was found on someone else's property. ROS could not be obtained due to clinical condition. While in the ED: chest x-ray was obtained and revealed right lower lobe infiltrates. Patient treated empirically CAP. Pending cultures. Patient currently not arousable to painful stimuli, however he grimaces. A complete HPI and ROS could not be obtained due clinical condition. During hospital course: Patient had CT head: Patient was intubated for airway protection, CT Head 02/28/18 x 2: small left sided subdural hematoma which has increased in size slightly, small right sided hygroma, mild mass effect with compression of both cerebral hemispheres, mild chronic periventricular white matter ischemic changes, mild generalized volume loss CT Head and Neck 02/27/18: tiny calcified plaque left carotid bifurcation, NO evidence of large aneurysm/vascular malformation. Seen by Neurosurgery Dr. Coleman 02/18/18: no surgical intervention warranted and will need repeat CT Head in [address] head (03/02/18): previously noted small left sided acute subdural hematoma has continues to undergo evoluation and now appeats hyodense small but very slightly larger right sided subudral hygroma or chronic subdural hematoma. Extra axial collections continue to exert nerly symmetic mass effect on both cerebral hemispheres with compressions of overlying sulci and ventricles CT (03/03/18): b/l subdural hematoma appear slightly heterogenous but mostly hypodense consistent with continued evolution * Patient unable to get MRI; patient is intubated CT Chest 02/28/18: large right and moderate left pleural effusions and associated consolidations, lingular infiltrate, probable bulla in the right upper lobe however small loculated penumothorax is not excluded, severe diffuse hepatic steatotosis, question hepatic mass versus more focal fatty infiltration involving a large region of the medial upper liver, small perhepatic and persplenic ascites. CT Chest (03/03/18): stable large bilateral pleural effusions with worsening bilateral infiltrates with areas of consolidations in the upper lung zones as well as compressive atelectasis at the lung bases Vanc & Zosyn emperic coverage, then enterococcus faecalis, senstive vanco & ampicillin Patient had lice, was treated w/ permetharin cream 03/12/18 Alcohol abuse history, managed w/ precedex Patient recommended for TCU, but refused. Dr. Ebony Giraldo and I spoke to patient in his [place] language, Gujarati and explained him the risks of going home vs TCU, but patient still did not want TCU. Above is only a brief summary of patients stay in the hospital. Below are instructions provided to patient on AMA. Transportation was provided to patient to his friends residence, where he currently resides. You are signing out Against medical advice. Please take the following medications: 1) Augmentin 875/125, 1 tab by mouth 2x day (8am & 8pm) 2) Metoprolol tartrate 12.5 mg, 1 tab by mouth 2x day (8am & 8pm) 3) Aspirin 81 mg, 1 tab by mouth 1x day (8am) 4) Lactobicillus, cap, 1 tab by mouth 2x day (10am & 6pm) 5) Multivitamin 1 tablet per mouth 1x day Schedule a follow up with neurosurgeon Dr. Jovanni Peace by [phone] Appoint should be in 7 days. Follow up with your primary care physician, Jeny Palacios in 7 days or the [facility] at [phone] in 7 days Call [phone] for help quitting. Discharge Exam - Head Exam Head Exam: ATRAUMATIC, NORMOCEPHALIC - Eye Exam Eye Exam: Normal appearance - ENT Exam ENT Exam: Mucous Membranes Moist - Neck Exam Neck exam: Full Rom - Respiratory Exam Respiratory Exam: Clear to PA & Lateral, NORMAL BREATHING PATTERN. absent: Rales, Rhonchi, Wheezes - Cardiovascular Exam Cardiovascular Exam: +S1, +S2. absent: Tachycardia - GI/Abdominal Exam GI & Abdominal Exam: Normal Bowel Sounds, Soft, Tenderness - Extremities Exam Additional comments: B/L tremor in upper extremities/ hands Denied pedal edema Denied calf tenderness - Back Exam Back exam: absent: CVA tenderness (L), CVA tenderness (R) - Neurological Exam Neurological exam: Alert, Oriented x3 - Psychiatric Exam Psychiatric exam: Normal Affect, Normal Mood - Skin Skin Exam: Dry, Intact, Normal Color, Warm Discharge Plan - Discharge Medications Prescriptions: Amoxicillin/Clavulanate [Augmentin 875 MG-125 MG] 1 tab PO BID #14 tab Aspirin [Aspirin Chewable] 81 mg PO DAILY #30 chew Lactobacillus Acidophilus [Bacid Acidophilus] 1 cap PO BID #74 cap Metoprolol Tartrate [Lopressor] 12.5 mg PO BID #60 tab - Follow Up Plan Condition: STABLE Disposition: AGAINST MEDICAL ADVICE Additional Instructions: You are signing out Against medical advice. Please take the following medications: 1) Augmentin 875/125, 1 tab by mouth 2x day (8am & 8pm) 2) Metoprolol tartrate 12.5 mg, 1 tab by mouth 2x day (8am & 8pm) 3) Aspirin 81 mg, 1 tab by mouth 1x day (8am) 4) Lactobicillus, cap, 1 tab by mouth 2x day (10am & 6pm) 5) Multivitamin 1 tablet per mouth 1x day Schedule a follow up with neurosurgeon Dr. Jovanni Peace by [phone] Appoint should be in 7 days. Follow up with your primary care physician, Jeny Palacios in 7 days or the [facility] at [phone] in 7 days Call [phone] for help quitting.
== END 2018-03-13 17:24 | disposition left against medical advice (07) | DRG 584 ==
LOC: C.ER 11:25 → C.9I 14:04
PROVIDERS: ADMIT Hospitalist; ATTEND Hospitalist
PROC: 05H633Z Insertion of Infusion Device into Left Subclavian Vein, Percutaneous Approach (ICD-10-PCS; 2018-03-03)
PROC: 0W9B3ZZ Drainage of Left Pleural Cavity, Percutaneous Approach (ICD-10-PCS; principal; 2018-03-07)
PROC: 0BH17EZ Insertion of Endotracheal Airway into Trachea, Via Natural or Artificial Opening (ICD-10-PCS; 2018-03-07)
PROC: 5A1955Z Respiratory Ventilation, Greater than 96 Consecutive Hours (ICD-10-PCS; 2018-03-07)
DX: A41.9 Sepsis, unspecified organism (principal); J18.9 Pneumonia, unspecified organism; J96.01 Acute respiratory failure with hypoxia; I62.03 Nontraumatic chronic subdural hemorrhage; I50.9 Heart failure, unspecified; F10.231 Alcohol dependence with withdrawal delirium; E87.6 Hypokalemia; E87.3 Alkalosis; K70.30 Alcoholic cirrhosis of liver without ascites; N39.0 Urinary tract infection, site not specified; R32 Unspecified urinary incontinence; E87.1 Hypo-osmolality and hyponatremia; E86.9 Volume depletion, unspecified; I87.2 Venous insufficiency (chronic) (peripheral); Z59.0 Homelessness; Z93.1 Gastrostomy status

== ENCOUNTER 2018-03-14 00:29 | Emergency (ER) | payer MEDICAID ==
[2018-03-14 00:36] VITALS: BP 118/69; PULSE 70; RESP 16; TEMP 97.5; O2SAT 95
--- NOTE | 2018-03-14 01:13 | C.PDOC ---
History Of Present Illness 57 year old male homeless is brought to the ED by EMS for public intoxication. Patient had prolonged hospital course dc this am. Patient is seen in the ED ambulating with steady gait in no acute distress. Patient is clinically sober. Patient denies SI/HI, hallucinations, other medical complaints. Time Seen by Provider: 03/14/18 00:40 Chief Complaint (Nursing): Substance Abuse History Per: Patient, EMS History/Exam Limitations: intoxication Onset/Duration Of Symptoms: Hrs Current Symptoms Are (Timing): Still Present Suicide/Self Injury Attempted (Context): None Modifying Factor(s): Alcohol Associated Symptoms: denies: Depression, Suicidal Thoughts, Suicidal Plan Recent travel outside of the [place]: No Additional History Per: Patient, EMS Past Medical History Reviewed: Historical Data, Nursing Documentation, Vital Signs Vital Signs: Last Vital Signs Temp 97.5 F L 03/14/18 00:34 Pulse 70 03/14/18 00:34 Resp 16 03/14/18 00:34 BP 118/69 03/14/18 00:34 Pulse Ox 95 03/14/18 00:34 - Medical History PMH: No Chronic Diseases Surgical History: No Surg Hx Family History: States: Unknown Family Hx - Social History Hx Tobacco Use: No Hx Alcohol Use: Yes Hx Substance Use: No - Immunization History Hx Tetanus Toxoid Vaccination: No Hx Influenza Vaccination: No Hx Pneumococcal Vaccination: No Review Of Systems Constitutional: Negative for: Fever, Chills Cardiovascular: Negative for: Chest Pain Respiratory: Negative for: Cough, Shortness of Breath Gastrointestinal: Negative for: Nausea, Vomiting, Abdominal Pain Skin: Negative for: Rash Neurological: Negative for: Weakness, Numbness, Headache, Dizziness Psych: Negative for: Depression, Suicidal ideation Physical Exam - Physical Exam Appears: Non-toxic, No Acute Distress Skin: Normal Color, Warm, Dry Head: Atraumatic, Normacephalic Eye(s): bilateral: Normal Inspection Neck: Normal ROM, Supple Chest: Symmetrical Cardiovascular: Rhythm Regular Respiratory: Normal Breath Sounds, No Rales, No Rhonchi, No Wheezing Gastrointestinal/Abdominal: Soft, No Tenderness, No Guarding, No Rebound Extremity: Normal ROM, No Tenderness, No Swelling Neurological/Psych: Oriented x3, Normal Speech, Normal Cognition Gait: Steady ED Course And Treatment O2 Sat by Pulse Oximetry: 95 (ON RA) Pulse Ox Interpretation: Normal Medical Decision Making Medical Decision Making: no medical complaint no acute issue. stable for dc. Disposition - Disposition Disposition: HOME/ ROUTINE Disposition Time: 01:30 Condition: STABLE Additional Instructions: return to er with worsening symptoms or concerns. Instructions: Alcohol Abuse and Alcoholism (DC) Forms: [facility] (Khmer) - Clinical Impression Clinical Impression: Alcohol abuse - Scribe Statement The provider has reviewed the documentation as recorded by the Scribe Neel Johnson All medical record entries made by the Scribe were at my direction and personally dictated by me. I have reviewed the chart and agree that the record accurately reflects my personal performance of the history, physical exam, medical decision making, and the department course for this patient. I have also personally directed, reviewed, and agree with the discharge instructions and disposition.
== END 2018-03-14 01:15 | disposition home or self-care (01) ==
LOC: C.ER 00:29
DX: F10.10 Alcohol abuse, uncomplicated (principal); Y90.9 Presence of alcohol in blood, level not specified

== ENCOUNTER 2018-03-14 11:41 | Inpatient (IN) | payer MEDICAID ==
[2018-03-14] MEDS ORDERED: Sodium Chloride 0.9% 1,000 ML IV ONE (12:39)
[2018-03-14] MEDS ORDERED: Sodium Chloride 0.9% 1,000 ML ONE (13:08)
[2018-03-14 13:23] LABS: BASO % 0.3 % (0.0-2.0); HEMOGLOBIN 9.5 g/dL (12.0-18.0); LYMPH # 0.4 K/uL (1.0-4.3); LYMPH % 2.6 % (20.0-40.0); MEAN CELL VOLUME 101.3 fL (80.0-94.0); MEAN CORPUSCULAR HEMOGLOBIN 33.7 pg (27.0-31.0); MEAN CORPUSCULAR HGB CONC 33.3 g/dL (33.0-37.0); MEAN PLATELET VOLUME 10.7 fL (7.2-11.7); MONO # 0.7 K/uL (0.0-0.8); MONO % 4.5 % (0.0-10.0); NEUT # 13.5 K/uL (1.8-7.0); NEUT % 92.6 % (50.0-75.0); PLATELET COUNT 112 K/uL (130-400); RBC 2.81 Mil/uL (4.40-5.90); RED CELL DISTRIBUTION WIDTH 18.1 % (11.5-14.5)
[2018-03-14 13:25] LABS: WHITE BLOOD COUNT 14.6 K/uL (4.8-10.8)
[2018-03-14 13:32] LABS: INR 1.9; PROTHROMBIN TIME 20.3 SECONDS (9.7-12.2)
[2018-03-14 13:36] LABS: ALB/GLOB RATIO 0.7 (1.0-2.1); ALT/SGPT 77 U/L (21-72); AST/SGOT 143 U/L (17-59); BLOOD UREA NITROGEN 19 mg/dL (9-20); CALCIUM 8.3 mg/dl (8.6-10.4); GFR NON-AFRICAN AMERICAN > 60; LIPASE 397 U/L (23-300)
[2018-03-14 13:46] LABS: CK-MB 1.87 ng/mL (0.0-3.38)
--- NOTE | 2018-03-14 13:51 | RAD ---
HISTORY: SOB COMPARISON: Chest x-ray performed 03/09/18. TECHNIQUE: Chest, one view. FINDINGS: Interval removal of nasogastric tube and endotracheal tube. LUNGS: Patchy right lower lobe consolidation. Mild pulmonary venous congestion. Please note that chest x-ray has limited sensitivity for the detection of pulmonary masses. PLEURA: No significant pleural effusion identified. No definite pneumothorax . CARDIOVASCULAR: Mild cardiomegaly. No significant atherosclerotic calcification present. OSSEOUS STRUCTURES: Mild degenerative changes. VISUALIZED UPPER ABDOMEN: Unremarkable. OTHER FINDINGS: None. IMPRESSION: Patchy right lower lobe consolidation. Mild pulmonary venous congestion.
--- NOTE | 2018-03-14 13:59 | C.PDOC ---
History Of Present Illness 57 yo male with PMH of ETOH abuse brought into the ER stating "I cant walk." Pt notes he has trouble walking and feels off balance. Pt states he was discharged from the hospital "a couple of days ago". Admits to drinking yesterday, none today. When asked why he has feces on him, pt states "I couldnt get up to go to the bathroom." Admits to leaving AMA yesterday but states he is ready to stay now. Denies any pain, sob, abdominal pain , n/v, headache, dizziness, visual changes. Pt is a poor historian. Previous records show: Pt was admitted on 02/27/18 for PNA, hyponatremia; signed out AMA on 03/13/18; Also found to have subdural hematoma (02/27/18) Time Seen by Provider: 03/14/18 12:16 Chief Complaint (Nursing): Medical Clearance History Per: Patient Past Medical History Vital Signs: Last Vital Signs Temp 98.1 F 03/14/18 12:04 Pulse 122 H 03/14/18 12:04 Resp 18 03/14/18 12:04 BP 136/71 03/14/18 12:04 Pulse Ox 100 03/14/18 12:04 - [facility] Procedures DRAINAGE OF LEFT PLEURAL CAVITY, PERCUTANEOUS APPROACH (02/27/18) INSERTION OF ENDOTRACHEAL AIRWAY INTO TRACHEA, VIA OPENING (02/27/18) INSERTION OF INFUSION DEV INTO L SUBCLAV VEIN, PERC APPROACH (02/27/18) RESPIRATORY VENTILATION, GREATER THAN 96 CONSECUTIVE HOURS (02/27/18) Family History: States: Unknown Family Hx - Social History Hx Tobacco Use: No Hx Alcohol Use: Yes Hx Substance Use: No - Immunization History Hx Tetanus Toxoid Vaccination: No Hx Influenza Vaccination: No Hx Pneumococcal Vaccination: No Review Of Systems Except As Marked, All Systems Reviewed And Found Negative. Physical Exam - Physical Exam Appears: Well, No Acute Distress, Unkempt Skin: Warm, Dry Head: Atraumatic, Normacephalic Eye(s): bilateral: PERRL, EOMI, Scleral Icterus Nose: Normal Oral Mucosa: Moist Neck: Normal, Normal ROM, Supple Chest: Symmetrical Cardiovascular: Rhythm Regular Respiratory: Normal Breath Sounds, No Accessory Muscle Use Gastrointestinal/Abdominal: Normal Exam, Soft, No Tenderness Back: Normal Inspection Extremity: Normal ROM ED Course And Treatment - Laboratory Results Result Diagrams: 03/14/18 13:12 03/14/18 13:12 ECG: Interpreted By Me, Viewed By Me ECG Rhythm: Sinus Rhythm Rate From EC (BPM) O2 Sat by Pulse Oximetry: 100 (RA) Pulse Ox Interpretation: Normal - CT Scan/US CT head w/o contrast Other Rad Studies (CT/US): Read By Radiologist, Radiology Report Reviewed CT/US Interpretation: IMPRESSION: Interval development of small hyperdensity within the posterior fossa close to the cerebellar vermis along the tentorium, consistent with acute subdural hematoma. Bilateral subdural collections appear hypodense consistent with chronic hematomas. Nonspecific white matter changes. Additional findings as above. Findings discussed with YOLANDA Altamirano on 03/14/18 at 2:02 p.m.. Progress Note: D/w Neurosurgey call center consultant CT findings, will review CT scan. Dr Wynn reviewed CT scan states no intervention is necessary at this time. Case discussed with Dr Giraldo , agreed upon admission. Disposition - Disposition Disposition: HOSPITALIZED Disposition Time: 13:00 Condition: STABLE - Clinical Impression Clinical Impression: Subdural hemorrhage, Pneumonia, Alcohol abuse, Hyponatremia
[2018-03-14 14:03] LABS: BANDS 3 % (0-2); LYMPHOCYTE 2 % (20-40); MONOCYTE 4 % (0-10); NEUTROPHIL 91 % (50-75); PLATELET ESTIMATE SLIGHTLY DECREASED (NORMAL); TOTAL CELLS COUNTED 100
[2018-03-14 14:05] LABS: ANISOCYTOSIS SLIGHT; HYPOCHROMIC SLIGHT; POIKILOCYTOSIS SLIGHT
--- NOTE | 2018-03-14 14:05 | CT ---
Date of service: 03/14/2018 PROCEDURE: CT HEAD WITHOUT CONTRAST. HISTORY: R/O Bleed COMPARISON: Noncontrast head CT performed 03/13/18 and 03/10/18 TECHNIQUE: Axial computed tomography images were obtained through the head/brain without intravenous contrast. Radiation dose: Total exam DLP = 964.91 mGy-cm. This CT exam was performed using one or more of the following dose reduction techniques: Automated exposure control, adjustment of the mA and/or kV according to patient size, and/or use of iterative reconstruction technique. FINDINGS: HEMORRHAGE: As below. BRAIN: Interval development of small hyperdensity within the posterior fossa close to the cerebellar vermis along the tentorium (series 4, image 25), consistent with acute subdural hematoma. Redemonstrated bilateral hypodense extra-axial collections, right minimally greater than left, appear chronic. No mass effect or edema. Mild bilateral frontal atrophy. Mild cerebellar atrophy. Mild scattered periventricular and subcortical white matter hypodensities, which are nonspecific, but often seen with chronic microvascular ischemic disease. VENTRICLES: No hydrocephalus. CALVARIUM: Unremarkable. PARANASAL SINUSES: Unremarkable as visualized. No significant inflammatory changes. MASTOID AIR CELLS: Unremarkable as visualized. No inflammatory changes. OTHER FINDINGS: None. IMPRESSION: Interval development of small hyperdensity within the posterior fossa close to the cerebellar vermis along the tentorium, consistent with acute subdural hematoma. Bilateral subdural collections appear hypodense consistent with chronic hematomas. Nonspecific white matter changes. Additional findings as above. Findings discussed with YOLANDA Altamirano on 03/14/18 at 2:02 p.m..
--- NOTE | 2018-03-14 14:56 | CP.PCM.PN ---
Subjective - Date & Time of Evaluation Date of Evaluation: 03/14/18 Time of Evaluation: 14:54 - Subjective Subjective: pt know to our service from prior admission was discharged yesterday found on street and brought to ER today CT done shows bilateral CSDH unchanged from last admission Report notes some acute blood layering on tentorium, not significant finding no indication at this time to evacuate SDH Objective - Vital Signs/Intake and Output Vital Signs (last 24 hours): Temp Pulse Resp BP Pulse Ox 97.7 F 118 H 17 130/62 100 03/14/18 14:50 03/14/18 14:50 03/14/18 14:50 03/14/18 14:50 03/14/18 14:51 - Labs Labs: 03/14/18 13:12 03/14/18 13:12 PT 20.3 SECONDS (9.7-12.2) H 03/14/18 13:12 INR 1.9 03/14/18 13:12 APTT 34 SECONDS (21-34) 03/14/18 13:12
--- NOTE | 2018-03-14 15:18 | CP.PCM.HP ---
<Charly Bell M - Last Filed: 03/15/18 13:31> History of Present Illness - History of Present Illness History of Present Illness: H&P for hospitalist Dr. Jerardo Giraldo H&P obtained in [facility] 57 yr male w/ PMHx: HTN, subdural hematoma, lice, thrombocytopenia, anemia, ETOH abuse, liver cirrhosis, pneumonia, recently admitted for a subdural hematoma (02/27) and signed out AMA on 03/13/18 returns to ED for unsteady gait. Patient was recommended for TCU placement by physical therapy yesterday due to his unsteady gait 2/2 to his ETOH abuse; however, patient was adamant that he did not want TCU and wanted to signout AMA. After signing out AMA, patient was transported to his friends home, where he states he realized he cannot ambulate himself. Patient states he managed to get on a train to [facility] to purchase ETOH. Patient states he had some ETOH overnight where he was seen at [facility]; however, per EMR review, patient was seen in the ED overnight, here at [facility] for ETOH intoxication. Patient states he was no longer wants to drink and would like assistance in getting stronger and states he will go to a TCU/ rehab per recommendations of the medicine team/ physical therapy. Patient states he has no other complaints. Patient denies chest pain, SOB, abdominal pain, nausea, vomiting, leg pain, numbness/ tinging in all 4 extremities, headaches, vision changes, dysuria, hematuria. PMD: Sonya Dove PMHx: HTN, subdural hematoma, lice, thrombocytopenia, anemia, ETOH abuse, liver cirrhosis, pneumonia Meds: metoprolol tartrate 12.5mg BID, Augmenten 875/125 mg BID, Lactobacillus 1 cap BID, aspirin 81mg BID PSHx: None Allergies: NKDA SHx: Extensive hx of ETOH abuse FHx: unknown Present on Admission - Present on Admission Any Indicators Present on Admission: No Review of Systems - Constitutional Constitutional: Weakness. absent: Fatigue, Fever, Frequent Falls - EENT Eyes: absent: Blurred Vision, Itchy Eyes, Sees Flashes Nose/Mouth/Throat: absent: Nasal Trauma, Nose Pain, Mouth Pain - Cardiovascular Cardiovascular: absent: Chest Pain, Chest Pain at Rest, Diaphoresis, Irregular Heart Rhythm, Leg Edema, Palpitations - Respiratory Respiratory: absent: Cough, Dyspnea, Hemoptysis, Wheezing - Gastrointestinal Gastrointestinal: absent: Diarrhea, Vomiting - Musculoskeletal Musculoskeletal: absent: Arthralgias, Myalgias, Stiffness - Integumentary Integumentary: absent: Bleeding Lesions, Pruritus - Neurological Neurological: Weakness. absent: Dizziness, Numbness, Syncope - Endocrine Endocrine: absent: Polydipsia, Polyphagia, Polyuria Past Patient History - Infectious Disease Hx of Infectious Diseases: None - Past Medical History & Family History Past Medical History?: No - Past Social History Smoking Status: Unknown If Ever Smoked - MUSCULOSKELETAL/RHEUMATOLOGICAL Hx Musculoskeletal Disorders: Yes Hx Falls: Yes - GASTROINTESTINAL Hx Liver Failure: Yes - PSYCHIATRIC Hx Substance Use: No - SURGICAL HISTORY Hx Surgeries: No - ANESTHESIA Hx Anesthesia: No Meds Allergies/Adverse Reactions: Allergies Allergy/AdvReac Type Severity Reaction Status Date / Time No Known Allergies Allergy Verified 03/14/18 11:58 Physical Exam - Constitutional Appears: Cachectic - Head Exam Head Exam: absent: ATRAUMATIC Additional comments: 2.5" X 3" subscapular fluid collection on R superior to posterior portion of head - Eye Exam Eye Exam: EOMI, Scleral icterus Additional comments: scleral icterus - ENT Exam ENT Exam: Mucous Membranes Moist - Neck Exam Neck exam: Positive for: Normal Inspection. Negative for: Lymphadenopathy - Respiratory Exam Respiratory Exam: Clear to Auscultation Bilateral, NORMAL BREATHING PATTERN. absent: Rales, Rhonchi, Wheezes - Cardiovascular Exam Cardiovascular Exam: +S1, +S2 - GI/Abdominal Exam GI & Abdominal Exam: Normal Bowel Sounds, Soft. absent: Tenderness - Extremities Exam Extremities exam: Positive for: normal capillary refill. 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 Patient denies pain on all joint palpation. Patient has Full ROM of all extremities without pain. - Back Exam Back exam: absent: CVA tenderness (L), CVA tenderness (R), rash noted - Neurological Exam Neurological exam: Alert, CN II-XII Intact, Oriented x3 - Psychiatric Exam Psychiatric exam: Normal Affect, Normal Mood - Skin Skin Exam: Abrasion, Dry, Intact, Warm Results - Vital Signs Recent Vital Signs: Last Vital Signs Temp 97.7 F 03/14/18 14:50 Pulse 118 H 03/14/18 14:50 Resp 17 03/14/18 14:50 BP 130/62 03/14/18 14:50 Pulse Ox 100 03/14/18 14:51 - Labs Result Diagrams: 03/14/18 13:12 03/14/18 13:12 Labs: Laboratory Results - last 24 hr 03/14/18 03/14/18 03/14/18 11:54 13:12 13:12 WBC 14.6 H D RBC 2.81 L Hgb 9.5 L Hct 28.4 L MCV 101.3 H MCH 33.7 H MCHC 33.3 RDW 18.1 H Plt Count 112 L MPV 10.7 Neut % (Auto) 92.6 H Lymph % (Auto) 2.6 L Dunn % (Auto) 4.5 Eos % (Auto) 0.0 Baso % (Auto) 0.3 Neut # (Auto) 13.5 H Lymph # (Auto) 0.4 L Dunn # (Auto) 0.7 Eos # (Auto) 0.0 Baso # (Auto) 0.0 Neutrophils % (Manual) 91 H Band Neutrophils % 3 H Lymphocytes % (Manual) 2 L Monocytes % (Manual) 4 Platelet Estimate Slightly decreased L Hypochromasia (manual) Slight Poikilocytosis (manual Slight Anisocytosis (manual) Slight PT 20.3 H INR 1.9 APTT 34 Sodium Potassium Chloride Carbon Dioxide Anion Gap BUN Creatinine Est GFR ( Amer) Est GFR (Non-Af Amer) POC Glucose (mg/dL) 86 Random Glucose Calcium Phosphorus Magnesium Total Bilirubin AST ALT Alkaline Phosphatase Ammonia Total Creatine Kinase CK-MB (Mass) Total Protein Albumin Globulin Albumin/Globulin Ratio Lipase Alcohol, Quantitative 03/14/18 03/14/18 13:12 13:53 WBC RBC Hgb Hct MCV MCH MCHC RDW Plt Count MPV Neut % (Auto) Lymph % (Auto) Dunn % (Auto) Eos % (Auto) Baso % (Auto) Neut # (Auto) Lymph # (Auto) Dunn # (Auto) Eos # (Auto) Baso # (Auto) Neutrophils % (Manual) Band Neutrophils % Lymphocytes % (Manual) Monocytes % (Manual) Platelet Estimate Hypochromasia (manual) Poikilocytosis (manual Anisocytosis (manual) PT INR APTT Sodium 122 L Potassium 3.9 Chloride 88 L Carbon Dioxide 22 Anion Gap 17 BUN 19 Creatinine 0.9 Est GFR ( Amer) > 60 Est GFR (Non-Af Amer) > 60 POC Glucose (mg/dL) Random Glucose 82 Calcium 8.3 L Phosphorus 2.4 L Magnesium 1.4 L Total Bilirubin 4.2 H AST 143 H D ALT 77 H D Alkaline Phosphatase 163 H D Ammonia < 9 L Total Creatine Kinase 51 L CK-MB (Mass) 1.87 Total Protein 7.4 Albumin 3.0 L Globulin 4.4 H Albumin/Globulin Ratio 0.7 L Lipase 397 H Alcohol, Quantitative < 10 Assessment & Plan - Assessment and Plan (Free Text) Assessment: 57 yr old male w/ PMhx of subdural hematoma, HTN, ETOH abuse, pneumonia: presents for unsteady gait Subdural Hematoma - CT head (03/14): Interval development of small hyperdensity within the posterior fossa close to the cerebellar vermis along the tentorium, consistent with acute subdural hematoma. Bilateral subdural collections appear hypodense consistent with chronic hematomas. Nonspecific white matter changes. - F/u neurosurgery Dr. Wynn recs - no surgerical intervention warranted at this time - F/u CT head in AM (03/15) Hyponatremia Electrolyte imbalance - Na+ 122 (03/14) - Likely due to ETOH abuse - Fluid restrict to 1000ml/day - F/u nephrology, Dr. Taylor recs - Urine osmololity, serium uric acid - Give 5% saline 300 ml over 6hrs IF patient becomes altered or Na+ drops below 122 Pneumonia Acute respiratory failure - CXR (03/14): Patchy right lower lobe consolidation. Mild pulmonary venous congestion. - continue outpatient therapy Augmentin 875/125mg BID for 7 days Hypertension - home medication metoprolol tartrate 12.5mg PO BID held (BP in 130s currently) Unsteady gait - patient currently has baseline tremor - patient unable to walk without assistance - physical therapy evaluation Alcohol abuse Cirrhosis - ETOH <10 - Fall precautions - Seizure precautions - Has not received anticoagulation secondary to subdural hematoma - patient is cirrhotic per US - Ativan 1mg IVP PRN - Thaimine 100 mg PO BID - Folic acid 1mg PO daily - Multivitamin 1 tab PO daily Elevated Liver Function Tests - likely secondary to patients ETOH history - From previous admission labs - Abdominal U/S 02/27/18: nodular hepatic contour consistent with cirrhosis, echogenic liver may be seen in the setting of hepatic parynchymal disease or fatty infiltration, small ascites, gallstones - Hepatitis Panel 02/27/18: negative - HIV 4th Generation 02/27/18: negative Anemia likely secondary to history alcohol abuse - Monitor HgB/Hct - From previous admission labs: - Vitamin B12 normal at 856 - Folate normal at 3.3 - Iron Studies: Total Iron at 117, % Saturation 55, Ferritin 689, TIBC low at 212 - Patient is Cirrhotic per Ab US Prophylaxis - DVT: SCDs (venous dopplers from previous admission negative), chemical contraindicated 2/2 to subdural hematoma - PT evaluation <Jerardo Giraldo - Last Filed: 03/17/18 22:35> Results - Vital Signs Recent Vital Signs: Last Vital Signs Temp 98.9 F 03/17/18 15:20 Pulse 88 03/17/18 15:20 Resp 20 03/17/18 15:20 BP 123/58 L 03/17/18 15:20 Pulse Ox 98 03/17/18 15:20 - Labs Result Diagrams: 03/17/18 06:30 03/17/18 06:30 Labs: Laboratory Results - last 24 hr 03/17/18 03/17/18 03/17/18 06:30 06:30 06:30 WBC 6.8 RBC 2.35 L Hgb 8.0 L Hct 23.5 L MCV 99.8 H MCH 34.0 H MCHC 34.1 RDW 17.0 H Plt Count 95 L MPV 10.7 Neut % (Auto) 48.8 L Lymph % (Auto) 35.3 Dunn % (Auto) 12.7 H Eos % (Auto) 2.0 Baso % (Auto) 1.2 Neut # (Auto) 3.3 Lymph # (Auto) 2.4 Dunn # (Auto) 0.9 H Eos # (Auto) 0.1 Baso # (Auto) 0.1 Sodium 124 L Potassium 4.0 Chloride 91 L Carbon Dioxide 26 Anion Gap 11 BUN 8 L Creatinine 0.7 L Est GFR ( Amer) > 60 Est GFR (Non-Af Amer) > 60 Random Glucose 98 Serum Osmolality 260 L Calcium 7.4 L Phosphorus 1.9 L Magnesium 1.2 L Total Bilirubin 2.7 H AST 87 H ALT 69 Alkaline Phosphatase 132 H Total Protein 6.0 L Albumin 2.3 L Globulin 3.7 Albumin/Globulin Ratio 0.6 L Attending/Attestation - Attestation I have personally seen and examined this patient.: Yes I have fully participated in the care of the patient.: Yes I have reviewed all pertinent clinical information: Yes Notes (Text): 03/17/18 22:34 This is a late entry. History, Physical, Assessment and Plan, and all orders were gone over in detail with resident Dr. Bell at the time of admission. Jerardo Giraldo D.O.
[2018-03-14 15:48] LABS: GRANULAR CAST 3 /lpf (0-1); SQUAMOUS EPITHIAL 4 /hpf (0-5); URINE AMORPHOUS SEDIMENT RARE /ul (<OCC); URINE BACTERIA RARE (<OCC); URINE BILIRUBIN NEGATIVE (NEGATIVE); URINE BLOOD 1+ (NEGATIVE); URINE CLARITY Hazy (Clear); URINE COLOR Amber (YELLOW); URINE GLUCOSE (UA) NORMAL (Normal); URINE LEUKOCYTE ESTERASE NEG Leu/uL (Negative); URINE PROTEIN 2+ mg/dL (NEGATIVE)
[2018-03-14] MEDS: Amoxicillin-Clav 875-125 mg Tab PO SCH (16:06)
[2018-03-14] MEDS: Multiple Vitamins Oral Solution PO SCH (16:06)
[2018-03-14 16:24] LABS: BARBITURATES, UR NEGATIVE (NEGATIVE); OPIATES, UR NEGATIVE (NEGATIVE); PHENCYCLIDINE, UR NEGATIVE (NEGATIVE)
[2018-03-14 16:40] LABS: BENZODIAZEPINES, UR POSITIVE (NEGATIVE)
[2018-03-14] MEDS: Lactobacillus Acidophilus 500 MU Cap PO SCH (19:00)
[2018-03-15] MEDS: Amoxicillin-Clav 875-125 mg Tab PO SCH ×2 (03:12→15:32)
--- NOTE | 2018-03-15 07:01 | CP.PCM.PN ---
<Betsy Bells M - Last Filed: 03/15/18 16:19> Subjective - Date & Time of Evaluation Date of Evaluation: 03/15/18 Time of Evaluation: 07:40 - Subjective Subjective: PGY1 Medicine Progress Note for Hospitalist Dr. Jerardo Giraldo. Patient seen and examined at bedside. Overnight patient had hypotensive episode overnight w/ SBP in the 90s. Patient was given sodium chloride tablet and had a SBP increase to the 100s. Patient remained asymptomatic. Patient in the AM was lying peacefully in the bed. Patient currently has no complaints. Patient denies chest pain, SOB, nausea, vomiting, abdominal pain, fevers, chills, dysuria, hematuria, headaches, vision changes. Patient states he still feels weak due to deconditioning 2/2 to his ETOH abuse. Objective - Vital Signs/Intake and Output Vital Signs (last 24 hours): Temp Pulse Resp BP Pulse Ox 98 F 84 20 109/60 95 03/14/18 23:10 03/14/18 23:10 03/14/18 23:10 03/14/18 23:10 03/14/18 23:10 Intake and Output: 03/15/18 03/15/18 06:59 18:59 Intake Total 100 Balance 100 - Medications Medications: Current Medications Amoxicillin/Clavulanate Potassium (Augmentin 875 Mg-125 Mg Tab) 1 tab PO Q12H [facility]; Protocol Stop: 03/21/18 15:31 Last Admin: 03/15/18 03:12 Dose: 1 tab Docusate Sodium (Colace) 100 mg PO DAILY PRN PRN Reason: Constipation Folic Acid (Folic Acid) 1 mg PO DAILY [facility] Last Admin: 03/14/18 16:06 Dose: 1 mg Influenza Virus Vaccine (Fluzone Quad [id number]) 60 mcg IM .ONCE ONE Stop: 03/16/18 10:01 Lactobacillus Acidophilus (Bacid Acidophilus) 1 cap PO BID [facility] Stop: 04/20/18 10:01 Last Admin: 03/14/18 19:00 Dose: 1 cap Lorazepam (Ativan) 1 mg IVP Q6H PRN PRN Reason: Seizure activity Metoprolol Tartrate (Lopressor) 12.5 mg PO BID [facility] Multivitamins/Vitamin C (Multi-Delyn Liquid) 5 ml PO DAILY [facility] Last Admin: 03/14/18 16:06 Dose: 5 ml Pneumococcal Polyvalent Vaccine (Pneumovax 23 Vaccine) 0.5 ml IM .ONCE ONE Stop: 03/16/18 10:01 Thiamine HCl (Vitamin B1 Tab) 100 mg PO BID [facility] Last Admin: 03/14/18 19:00 Dose: 100 mg - Labs Labs: 03/14/18 13:12 03/14/18 13:12 PT 20.3 SECONDS (9.7-12.2) H 03/14/18 13:12 INR 1.9 03/14/18 13:12 APTT 34 SECONDS (21-34) 03/14/18 13:12 - Constitutional Appears: Non-toxic, No Acute Distress - Head Exam Additional comments: 2.5" X 3" subscapular fluid collection on R superior to posterior portion of head - Eye Exam Pupil Exam: NORMAL ACCOMODATION, PERRL Additional comments: continued scleral icterus, improved - ENT Exam ENT Exam: Mucous Membranes Moist - Respiratory Exam Respiratory Exam: Clear to Ausculation Bilateral, NORMAL BREATHING PATTERN. absent: Rales, Rhonchi, Wheezes - Cardiovascular Exam Cardiovascular Exam: +S1, +S2. absent: Murmur - GI/Abdominal Exam GI & Abdominal Exam: Soft, Normal Bowel Sounds. absent: Guarding, Rigid, Tenderness - Extremities Exam Extremities Exam: Full ROM. 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 Patient denies pain on all joint palpation. Patient has Full ROM of all extremities without pain. - Neurological Exam Neurological Exam: Alert, Awake, Oriented x3 - Psychiatric Exam Psychiatric exam: Normal Affect, Normal Mood - Skin Skin Exam: Dry, Intact, Warm Assessment and Plan - Assessment and Plan (Free Text) Assessment: 57 yr old male w/ PMhx of subdural hematoma, HTN, ETOH abuse, pneumonia: presents for unsteady gait Subdural Hematoma - CT head (03/14): Interval development of small hyperdensity within the posterior fossa close to the cerebellar vermis along the tentorium, consistent with acute subdural hematoma. Bilateral subdural collections appear hypodense consistent with chronic hematomas. Nonspecific white matter changes. - F/u neurosurgery Dr. Wynn recs - no surgerical intervention warranted at this time - CT head (03/15): Stable small medial left tentorial subdural hematoma with no mass-effect related. No new interval intracranial hemorrhage. Stable bilateral subdural hygromas. Stable mild diffuse cerebral atrophy reiterated. Continued clinical and CT vigilance recommended - continue to monitor - Patient will need repeat CT head in approximately 1 week (03/22/18) to monitor progression of hematoma Hyponatremia Electrolyte imbalance - Na+ 122 (03/14 on admission) - > 129 (03/15) - Likely due to ETOH abuse - Fluid restrict to 1000ml/day - F/u nephrology, Dr. Taylor recs - Urine osmololity: 341, serium uric acid: 5.4 - Give 5% saline 300 ml over 6hrs IF patient becomes altered or Na+ drops below 122 Pneumonia Acute respiratory failure - WBC 14.6 (03/14 on admission) -> 14.5 (03/15) - CXR (03/14): Patchy right lower lobe consolidation. Mild pulmonary venous congestion. - continue outpatient therapy Augmentin 875/125mg BID for 7 days Hypertension - home medication metoprolol tartrate 12.5mg PO BID held (BP in 130s currently) - PT evaluation: 20 contact guard, rolling walker, outpatient rolling walker. Additionally recommended 1 week of rehab for rolling walker. Unsteady gait - patient currently has baseline tremor - patient unable to walk without assistance - physical therapy evaluation Alcohol abuse Cirrhosis - ETOH <10 - Fall precautions - Seizure precautions - Has not received anticoagulation secondary to subdural hematoma - patient is cirrhotic per US - Ativan 1mg IVP PRN - Thaimine 100 mg PO BID - Folic acid 1mg PO daily - Multivitamin 1 tab PO daily Elevated Liver Function Tests - likely secondary to patients ETOH history - From previous admission labs - Abdominal U/S 02/27/18: nodular hepatic contour consistent with cirrhosis, echogenic liver may be seen in the setting of hepatic parynchymal disease or fatty infiltration, small ascites, gallstones - Hepatitis Panel 02/27/18: negative - HIV 4th Generation 02/27/18: negative Anemia likely secondary to history alcohol abuse - Monitor HgB/Hct - From previous admission labs: - Vitamin B12 normal at 856 - Folate normal at 3.3 - Iron Studies: Total Iron at 117, % Saturation 55, Ferritin 689, TIBC low at 212 - Patient is Cirrhotic per Ab US Prophylaxis - DVT: SCDs (venous dopplers from previous admission negative), chemical contraindicated 2/2 to subdural hematoma - PT evaluation: 20 contact guard, rolling walker, outpatient rolling walker. Additionally recommended 1 week of rehab for rolling walker. Per social worker psychiatric Melvin, patient had his medicaid lapse in coverage. Patient will need to be cleared by PT with rolling walker prior to discharge. Per Patient, he would like his family in [place] to pick him up upon discharge. RADHAMES Charles is in contact with the family and once patient is cleared, family will be further contacted. <Jerardo Giraldo - Last Filed: 03/16/18 00:41> Objective - Vital Signs/Intake and Output Vital Signs (last 24 hours): Temp Pulse Resp BP Pulse Ox 98 F 105 H 20 119/60 96 03/15/18 16:23 03/15/18 16:23 03/15/18 16:23 03/15/18 16:23 03/15/18 16:23 Intake and Output: 03/15/18 03/16/18 18:59 06:59 Intake Total 800 240 Balance 800 240 - Medications Medications: Current Medications Amoxicillin/Clavulanate Potassium (Augmentin 875 Mg-125 Mg Tab) 1 tab PO Q12H [facility]; Protocol Stop: 03/21/18 15:31 Last Admin: 03/15/18 15:32 Dose: 1 tab Docusate Sodium (Colace) 100 mg PO DAILY PRN PRN Reason: Constipation Folic Acid (Folic Acid) 1 mg PO DAILY [facility] Last Admin: 03/15/18 10:00 Dose: 1 mg Lactobacillus Acidophilus (Bacid Acidophilus) 1 cap PO BID [facility] Stop: 04/20/18 10:01 Last Admin: 03/15/18 17:55 Dose: 1 cap Lorazepam (Ativan) 1 mg IVP Q6H PRN PRN Reason: Seizure activity Metoprolol Tartrate (Lopressor) 12.5 mg PO BID [facility] Multivitamins/Vitamin C (Multi-Delyn Liquid) 5 ml PO DAILY [facility] Last Admin: 03/15/18 10:00 Dose: 5 ml Thiamine HCl (Vitamin B1 Tab) 100 mg PO BID [facility] Last Admin: 03/15/18 17:55 Dose: 100 mg - Labs Labs: 03/15/18 07:44 03/15/18 07:44 PT 20.3 SECONDS (9.7-12.2) H 03/14/18 13:12 INR 1.9 03/14/18 13:12 APTT 34 SECONDS (21-34) 03/14/18 13:12 Attending/Attestation - Attestation I have personally seen and examined this patient.: Yes I have fully participated in the care of the patient.: Yes I have reviewed all pertinent clinical information, including history, physical exam and plan: Yes Notes (Text): 03/16/18 00:39 Patient was seen and examined at 4:30 PM 03/15/18. Care of this patient was gone over in detail with resident Dr. Bell. Please see above for full details. Jerardo Giraldo D.O.
[2018-03-15 07:53] LABS: BASO % 0.1 % (0.0-2.0); EOS # 0.1 K/uL (0.0-0.7); EOS % 0.6 % (0.0-4.0); HEMOGLOBIN 8.2 g/dL (12.0-18.0); LYMPH % 14.1 % (20.0-40.0); MEAN CELL VOLUME 100.8 fL (80.0-94.0); MEAN CORPUSCULAR HEMOGLOBIN 34.2 pg (27.0-31.0); MEAN CORPUSCULAR HGB CONC 33.9 g/dL (33.0-37.0); MEAN PLATELET VOLUME 11.2 fL (7.2-11.7); MONO # 1.4 K/uL (0.0-0.8); MONO % 9.4 % (0.0-10.0); NEUT % 75.8 % (50.0-75.0); RBC 2.4 Mil/uL (4.40-5.90); RED CELL DISTRIBUTION WIDTH 18.2 % (11.5-14.5); WHITE BLOOD COUNT 14.5 K/uL (4.8-10.8)
[2018-03-15 08:26] LABS: ALB/GLOB RATIO 0.7 (1.0-2.1); ALBUMIN 2.5 g/dL (3.5-5.0); ALT/SGPT 65 U/L (21-72); AST/SGOT 111 U/L (17-59); BLOOD UREA NITROGEN 16 mg/dL (9-20); CALCIUM 7.9 mg/dl (8.6-10.4); GFR NON-AFRICAN AMERICAN > 60
--- NOTE | 2018-03-15 09:31 | CT ---
Date of service: 03/15/2018 PROCEDURE: CT HEAD WITHOUT CONTRAST. HISTORY: subdural hematoma COMPARISON: Unenhanced head CT 03/14/2018. TECHNIQUE: Axial computed tomography images were obtained through the head/brain without intravenous contrast. Radiation dose: Total exam DLP = 1017.8 mGy-cm. This CT exam was performed using one or more of the following dose reduction techniques: Automated exposure control, adjustment of the mA and/or kV according to patient size, and/or use of iterative reconstruction technique. FINDINGS: HEMORRHAGE: A small subdural hematoma is again seen at the inferior margins of the medial left tentorium without mass effect once again. No interval increase in size. Thrombus appears to have contracted into an ovoid shape at this time. No interval new hematoma identified. Bilateral convexity subdural hygromas are reiterated. BRAIN: No interval mass effect or parenchymal edema. Stable limited diffuse cerebral atrophy identified. VENTRICLES: Unremarkable. No hydrocephalus. CALVARIUM: Unremarkable. PARANASAL SINUSES: Unremarkable as visualized. No significant inflammatory changes. MASTOID AIR CELLS: Unremarkable as visualized. No inflammatory changes. OTHER FINDINGS: None. IMPRESSION: Stable small medial left tentorial subdural hematoma with no mass-effect related. No new interval intracranial hemorrhage. Stable bilateral subdural hygromas. Stable mild diffuse cerebral atrophy reiterated. Continued clinical and CT vigilance recommended.
[2018-03-15] MEDS: Lactobacillus Acidophilus 500 MU Cap PO SCH ×2 (10:00→17:55)
[2018-03-15] MEDS: Multiple Vitamins Oral Solution PO SCH (10:00)
--- NOTE | 2018-03-15 15:51 | CP.PCM.CON ---
History of Present Illness - History of Present Illness History of Present Illness: 57 yr male w/ PMHx: HTN, subdural hematoma, lice, thrombocytopenia, anemia, ETOH abuse, liver cirrhosis, pneumonia, recently admitted for a subdural hematoma (02/27) and signed out AMA on 03/13/18 returns to ED for unsteady gait. Patient was recommended for TCU placement by physical therapy yesterday due to his unsteady gait 2/2 to his ETOH abuse; however, patient was adamant that he did not want TCU and wanted to signout AMA. After signing out AMA, patient was transported to his friends home, where he states he realized he cannot ambulate himself. Patient states he managed to get on a train to [facility] to purchase ETOH. Patient states he had some ETOH overnight where he was seen at [facility]; however, per EMR review, patient was seen in the ED overnight, here at [facility] for ETOH intoxication. Patient states he was no longer wants to drink and would like assistance in getting stronger and states he will go to a TCU/ rehab per recommendations of the medicine team/ physical therapy. Patient states he has no other complaints. Patient denies chest pain, SOB, abdominal pain, nausea, vomiting, leg pain, numbness/ tinging in all 4 extremities, headaches, vision changes, dysuria, hematuria. Prior hx hyponatremia controlled with fluid restriction PMD: Sonya Dove PMHx: HTN, subdural hematoma, lice, thrombocytopenia, anemia, ETOH abuse, liver cirrhosis, pneumonia Meds: metoprolol tartrate 12.5mg BID, Augmenten 875/125 mg BID, Lactobacillus 1 cap BID, aspirin 81mg BID PSHx: None Allergies: NKDA SHx: Extensive hx of ETOH abuse FHx: unknown Review of Systems - Constitutional Constitutional: Fatigue, Weakness - EENT Eyes: absent: As Per HPI, Blind Spots, Blurred Vision, Change in Vision, Decreased Night Vision, Diplopia, Discharge, Dry Eye, Exophthalmos, Floaters, Irritation, Itchy Eyes, Loss of Peripheral Vision, Pain, Photophobia, Requires Corrective Lenses, Sees Flashes, Spots in Vision, Tunnel Vision, Other Visual Disturbances, Loss of Vision, Other Ears: absent: As Per HPI, Decreased Hearing, Ear Discharge, Ear Pain, Tinnitus, Abnormal Hearing, Disequilibrium, Dizziness, Other Nose/Mouth/Throat: absent: As Per HPI, Epistaxis, Nasal Congestion, Nasal Discharge, Nasal Obstruction, Nasal Trauma, Nose Pain, Post Nasal Drip, Sinus Pain, Sinus Pressure, Bleeding Gums, Change in Voice, Dental Pain, Dry Mouth, Dysphagia, Halitosis, Hoarsness, Lip Swelling, Mouth Lesions, Mouth Pain, Odynophagia, Sore Throat, Throat Swelling, Tongue Swelling, Facial Pain, Neck Pain, Neck Mass, Other - Cardiovascular Cardiovascular: absent: As Per HPI, Acrocyanosis, Chest Pain, Chest Pain at Rest, Chest Pain with Activity, Claudication, Diaphoresis, Dyspnea, Dyspnea on Exertion, Edema, Irregular Heart Rhythm, Pain Radiating to Arm/Neck/Jaw, Leg Edema, Leg Ulcers, Lightheadedness, Orthopnea, Palpitations, Paroxysmal Nocturnal Dyspnea, Pedal Edema, Radiating Pain, Rapid Heart Rate, Slow Heart Rate, Syncope, Other - Respiratory Respiratory: Cough - Gastrointestinal Gastrointestinal: As Per HPI - Genitourinary Genitourinary: absent: As Per HPI, Change in Urinary Stream, Difficulty Urinating, Dysuria, Flank Pain, Hematuria, Pyuria, Nocturia, Urinary Incontinence, Urinary Frequency, Urinary Hesitance, Urinary Urgency, Voiding Freq/Small Amts, Freq UTI, Hx Renal/Bladder Calculi, Hx /Renal Surgery, Bladder Distension, Other - Musculoskeletal Musculoskeletal: Muscle Weakness, Myalgias Past Patient History - Infectious Disease Hx of Infectious Diseases: None - Past Medical History & Family History Past Medical History?: No Past Family History: Reviewed and not pertinent - Past Social History Smoking Status: Unknown If Ever Smoked Chewing Tobacco Use: No Cigar Use: No Alcohol: > 2 Drinks/Day Home Situation {Lives}: Alone - CARDIAC Hx Hypertension: Yes - PULMONARY Hx Pneumonia: Yes - MUSCULOSKELETAL/RHEUMATOLOGICAL Hx Musculoskeletal Disorders: Yes Hx Falls: Yes - GASTROINTESTINAL Hx Liver Failure: Yes - PSYCHIATRIC Hx Substance Use: No - SURGICAL HISTORY Hx Surgeries: No - ANESTHESIA Hx Anesthesia: No Meds Allergies/Adverse Reactions: Allergies Allergy/AdvReac Type Severity Reaction Status Date / Time No Known Allergies Allergy Verified 03/14/18 11:58 - Medications Medications: Current Medications Amoxicillin/Clavulanate Potassium (Augmentin 875 Mg-125 Mg Tab) 1 tab PO Q12H [facility]; Protocol Stop: 12/04/18 15:31 Last Admin: 03/15/18 15:32 Dose: 1 tab Docusate Sodium (Colace) 100 mg PO DAILY PRN PRN Reason: Constipation Folic Acid (Folic Acid) 1 mg PO DAILY [facility] Last Admin: 03/15/18 10:00 Dose: 1 mg Lactobacillus Acidophilus (Bacid Acidophilus) 1 cap PO BID [facility] Stop: 04/20/18 10:01 Last Admin: 03/15/18 10:00 Dose: 1 cap Lorazepam (Ativan) 1 mg IVP Q6H PRN PRN Reason: Seizure activity Metoprolol Tartrate (Lopressor) 12.5 mg PO BID [facility] Multivitamins/Vitamin C (Multi-Delyn Liquid) 5 ml PO DAILY [facility] Last Admin: 03/15/18 10:00 Dose: 5 ml Thiamine HCl (Vitamin B1 Tab) 100 mg PO BID [facility] Last Admin: 03/15/18 10:00 Dose: 100 mg Physical Exam - Head Exam Head Exam: ATRAUMATIC, NORMAL INSPECTION - Eye Exam Eye Exam: EOMI, Normal appearance - Neck Exam Neck exam: Positive for: Normal Inspection. Negative for: Tenderness - Respiratory Exam Respiratory Exam: Clear to Auscultation Bilateral, NORMAL BREATHING PATTERN - Cardiovascular Exam Cardiovascular Exam: REGULAR RHYTHM, +S1 - GI/Abdominal Exam GI & Abdominal Exam: Distended, Soft - Extremities Exam Extremities exam: Positive for: normal inspection. Negative for: tenderness - Neurological Exam Neurological exam: Alert, CN II-XII Intact - Skin Skin Exam: Dry, Warm Results - Vital Signs Recent Vital Signs: Last Vital Signs Temp 97.7 F 03/15/18 08:00 Pulse 84 03/15/18 12:44 Resp 20 03/15/18 08:00 BP 104/57 L 03/15/18 08:00 Pulse Ox 97 03/15/18 12:10 - Labs Result Diagrams: 03/15/18 07:44 03/15/18 07:44 Labs: Laboratory Results - last 24 hr 03/14/18 03/14/18 03/14/18 15:27 15:27 17:12 WBC RBC Hgb Hct MCV MCH MCHC RDW Plt Count MPV Neut % (Auto) Lymph % (Auto) [place] % (Auto) Eos % (Auto) Baso % (Auto) Neut # (Auto) Lymph # (Auto) [place] # (Auto) Eos # (Auto) Baso # (Auto) Sodium Potassium Chloride Carbon Dioxide Anion Gap BUN Creatinine Est GFR ( Amer) Est GFR (Non-Af Amer) Random Glucose Uric Acid Calcium Phosphorus Magnesium Total Bilirubin AST ALT Alkaline Phosphatase Total Protein Albumin Globulin Albumin/Globulin Ratio Urine Color [place] Urine Clarity Hazy Urine pH 5.0 Ur Specific [place] 1.014 Urine Protein 2+ H Urine Glucose (UA) Normal Urine Ketones Negative Urine Blood 1+ H Urine Nitrate Negative Urine Bilirubin Negative Urine Urobilinogen 4.0 Ur Leukocyte Esterase Neg Urine RBC (Auto) 6 H Ur Squamous Epith Cells 4 Amorphous Sediment Rare H Urine Bacteria Rare Hyaline Casts 3-5 H Granular Casts (Auto) 3 Urine Osmolality 341 Urine Opiates Screen Negative Urine Methadone Screen Negative Ur Barbiturates Screen Negative Ur Phencyclidine Scrn Negative Ur Amphetamines Screen Negative U Benzodiazepines Scrn Positive U Oth Cocaine Metabols Negative U Cannabinoids Screen Negative 03/14/18 03/15/18 03/15/18 18:56 07:44 07:44 WBC 14.5 H RBC 2.40 L Hgb 8.2 L Hct 24.2 L MCV 100.8 H MCH 34.2 H MCHC 33.9 RDW 18.2 H Plt Count 113 L MPV 11.2 Neut % (Auto) 75.8 H Lymph % (Auto) 14.1 L [place] % (Auto) 9.4 Eos % (Auto) 0.6 Baso % (Auto) 0.1 Neut # (Auto) 11.0 H Lymph # (Auto) 2.0 [place] # (Auto) 1.4 H Eos # (Auto) 0.1 Baso # (Auto) 0.0 Sodium 129 L Potassium 3.8 Chloride 96 L Carbon Dioxide 26 Anion Gap 11 BUN 16 Creatinine 0.7 L Est GFR ( Amer) > 60 Est GFR (Non-Af Amer) > 60 Random Glucose 80 Uric Acid 5.4 Calcium 7.9 L Phosphorus 2.6 Magnesium 1.7 Total Bilirubin 3.3 H AST 111 H D ALT 65 Alkaline Phosphatase 121 Total Protein 6.4 Albumin 2.5 L Globulin 3.9 Albumin/Globulin Ratio 0.7 L Urine Color Urine Clarity Urine pH Ur Specific [place] Urine Protein Urine Glucose (UA) Urine Ketones Urine Blood Urine Nitrate Urine Bilirubin Urine Urobilinogen Ur Leukocyte Esterase Urine RBC (Auto) Ur Squamous Epith Cells Amorphous Sediment Urine Bacteria Hyaline Casts Granular Casts (Auto) Urine Osmolality Urine Opiates Screen Urine Methadone Screen Ur Barbiturates Screen Ur Phencyclidine Scrn Ur Amphetamines Screen U Benzodiazepines Scrn U Oth Cocaine Metabols U Cannabinoids Screen Assessment & Plan (1) ETOH abuse Status: Acute (2) Cirrhosis Status: Acute (3) Cirrhosis Status: Acute (4) Hyponatremia Status: Acute - Assessment and Plan (Free Text) Plan: Pt better with oral fluid restriction Hyponatremia due to cirrhosis and or SIADH Will repeat parameters Continue fluid restriction
[2018-03-15 21:58] LABS: OSMOLALITY,URINE 489 mosm/kg (300-1000)
--- NOTE | 2018-03-15 23:46 | CARD ---
APPROVED REPORT Date of service: 03/14/2018 EKG Measurement Heart [id number] <Conclusion> Normal sinus rhythm Normal ECG
[2018-03-16] MEDS: Amoxicillin-Clav 875-125 mg Tab PO SCH ×2 (03:37→14:40)
--- NOTE | 2018-03-16 07:15 | CP.PCM.PN ---
Subjective - Date & Time of Evaluation Date of Evaluation: 03/16/18 Time of Evaluation: 07:14 - Subjective Subjective: PGY1 Medicine Progress Note for Dr. Rossi Pt seen and examined at bedside. No acute events overnight. Pt is resting comfortably and has no complaints at this time. Patient denies chest pain, SOB, nausea, vomiting, abdominal pain, fevers, chills, dysuria, hematuria, headaches, vision changes, lightheadedness, dizziness, seizure activity. Objective - Vital Signs/Intake and Output Vital Signs (last 24 hours): Temp Pulse Resp BP Pulse Ox 98.2 F 101 H 20 110/56 L 98 03/15/18 23:10 03/15/18 23:30 03/15/18 23:10 03/15/18 23:10 03/15/18 23:10 Intake and Output: 03/16/18 03/16/18 06:59 18:59 Intake Total 240 Balance 240 - Medications Medications: Current Medications Amoxicillin/Clavulanate Potassium (Augmentin 875 Mg-125 Mg Tab) 1 tab PO Q12H [facility]; Protocol Stop: 03/21/18 15:31 Last Admin: 03/16/18 03:37 Dose: 1 tab Docusate Sodium (Colace) 100 mg PO DAILY PRN PRN Reason: Constipation Folic Acid (Folic Acid) 1 mg PO DAILY [facility] Last Admin: 03/15/18 10:00 Dose: 1 mg Lactobacillus Acidophilus (Bacid Acidophilus) 1 cap PO BID [facility] Stop: 04/20/18 10:01 Last Admin: 03/15/18 17:55 Dose: 1 cap Lorazepam (Ativan) 1 mg IVP Q6H PRN PRN Reason: Seizure activity Metoprolol Tartrate (Lopressor) 12.5 mg PO BID [facility] Multivitamins/Vitamin C (Multi-Delyn Liquid) 5 ml PO DAILY [facility] Last Admin: 03/15/18 10:00 Dose: 5 ml Thiamine HCl (Vitamin B1 Tab) 100 mg PO BID [facility] Last Admin: 03/15/18 17:55 Dose: 100 mg - Labs Labs: 03/15/18 07:44 03/15/18 07:44 PT 20.3 SECONDS (9.7-12.2) H 03/14/18 13:12 INR 1.9 03/14/18 13:12 APTT 34 SECONDS (21-34) 03/14/18 13:12 - Additional Findings Additional findings: - Constitutional Appears: Non-toxic, No Acute Distress - Head Exam Additional comments: (+) subscapular fluid collection on R superior to posterior portion of head - Eye Exam Pupil Exam: NORMAL ACCOMODATION, PERRL - ENT Exam ENT Exam: Mucous Membranes Moist - Respiratory Exam Respiratory Exam: Clear to Ausculation Bilateral, NORMAL BREATHING PATTERN. absent: Rales, Rhonchi, Wheezes - Cardiovascular Exam Cardiovascular Exam: +S1, +S2. absent: Murmur - GI/Abdominal Exam GI & Abdominal Exam: Soft, Normal Bowel Sounds. absent: Guarding, Rigid, Tenderness - Extremities Exam Extremities Exam: Full ROM. (+) tremulousness on outstretched hand (baseline as per prior notes) absent: Calf Tenderness, Pedal Edema - Neurological Exam Neurological Exam: Alert, Awake, Oriented x3 - Psychiatric Exam Psychiatric exam: Normal Affect, Normal Mood - Skin Skin Exam: Dry, Intact, Warm Assessment and Plan - Assessment and Plan (Free Text) Assessment: 57 yr old male w/ PMhx of subdural hematoma, HTN, ETOH abuse, pneumonia: presents for unsteady gait Subdural Hematoma - CT head (03/14): Interval development of small hyperdensity within the post erior fossa close to the cerebellar vermis along the tentorium, consistent with acute subdural hematoma. Bilateral subdural collections appear hypodense consistent with chronic hematomas. Nonspecific white matter changes. - F/u neurosurgery Dr. Kingsley escobedo - no surgical intervention warranted at this time - CT head (03/15): Stable small medial left tentorial subdural hematoma with no mass-effect related. No new interval intracranial hemorrhage. Stable bilateral subdural hygromas. Stable mild diffuse cerebral atrophy reiterated. 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 Taylor recs - Urine osmololity: 341, serium uric acid: 5.4 - Give 5% saline 300 ml over 6hrs IF patient becomes altered or Na+ drops below 122 - f/u serum osmol Pneumonia Acute respiratory failure - Leukocytosis resolved - CXR (03/14): Patchy right lower lobe consolidation. Mild pulmonary venous congestion. - continue outpatient therapy Augmentin 875/125mg BID for 7 days Electrolyte abnormalities - Mg 1.3, repleted - Phosphorous 1.8, repleted - Potassium 3.5 repleted - continue to monitor Hypertension - home medication metoprolol tartrate 12.5mg PO BID held (SBP is 120s-130, DBP is 60s) - PT evaluation: 20 contact guard, rolling walker, outpatient rolling walker. Additionally recommended 1 week of rehab for rolling walker. Unsteady gait - patient currently has baseline tremor - patient unable to walk without assistance - continue PT Alcohol abuse Cirrhosis - ETOH <10 - Fall precautions - Seizure precautions - Has not received anticoagulation secondary to subdural hematoma - patient is cirrhotic per US - Ativan 1mg IVP PRN - Thaimine 100 mg PO BID - Folic acid 1mg PO daily - Multivitamin 1 tab PO daily Elevated Liver Function Tests - likely secondary to patients ETOH history - downtrending LFTs and tbili - From previous admission labs - Abdominal U/S 02/27/18: nodular hepatic contour consistent with cirrhosis, echogenic liver may be seen in the setting of hepatic parynchymal disease or fatty infiltration, small ascites, gallstones - Hepatitis Panel 02/27/18: negative - HIV 4th Generation 02/27/18: negative Anemia likely secondary to history alcohol abuse - H/H is stable - From previous admission labs: - Vitamin B12 normal at 856 - Folate normal at 3.3 - Iron Studies: Total Iron at 117, % Saturation 55, Ferritin 689, TIBC low at 212 - Patient is Cirrhotic per Ab US Prophylaxis - DVT: SCDs (venous dopplers from previous admission negative), chemical contraindicated 2/2 to subdural hematoma - PT evaluation: 20 contact guard, rolling walker, outpatient rolling walker. Additionally recommended 1 week of rehab for rolling walker. Per social media marketing analyst Melvin, patient had his medicaid lapse in coverage. Patient will need to be cleared by PT with rolling walker prior to discharge. Per Pratima ent, he would like his family in [place] to pick him up upon discharge. RADHAMES Charles is in contact with the family and once patient is cleared, family will be further contacted. Case discussed with attending physician, Dr. Flo Webster, PGY-1
[2018-03-16 07:52] LABS: BASO # 0.1 K/uL (0.0-0.2); BASO % 1.1 % (0.0-2.0); EOS # 0.1 K/uL (0.0-0.7); EOS % 1.8 % (0.0-4.0); LYMPH # 2.1 K/uL (1.0-4.3); LYMPH % 29.6 % (20.0-40.0); MEAN CELL VOLUME 100.2 fL (80.0-94.0); MEAN CORPUSCULAR HEMOGLOBIN 34.5 pg (27.0-31.0); MEAN CORPUSCULAR HGB CONC 34.5 g/dL (33.0-37.0); MEAN PLATELET VOLUME 10.9 fL (7.2-11.7); MONO # 0.9 K/uL (0.0-0.8); MONO % 13.3 % (0.0-10.0); NEUT # 3.8 K/uL (1.8-7.0); NEUT % 54.2 % (50.0-75.0); NRBC % 0.2 % (0.0-2.0); RBC 2.3 Mil/uL (4.40-5.90); RED CELL DISTRIBUTION WIDTH 17.8 % (11.5-14.5)
[2018-03-16 08:15] LABS: ALB/GLOB RATIO 0.6 (1.0-2.1); ALBUMIN 2.2 g/dL (3.5-5.0); ALT/SGPT 62 U/L (21-72); AST/SGOT 91 U/L (17-59); BLOOD UREA NITROGEN 11 mg/dL (9-20); CALCIUM 7.6 mg/dl (8.6-10.4); GFR NON-AFRICAN AMERICAN > 60
[2018-03-16] MEDS: Multiple Vitamins Oral Solution PO SCH (09:50)
[2018-03-16] MEDS: Lactobacillus Acidophilus 500 MU Cap PO SCH ×2 (09:50→17:24)
[2018-03-16] MEDS ORDERED: Influenza Vaccine 60 MCG/0.5 ML SYR (3 yr & up) IM ONE (10:00)
[2018-03-16] MEDS ORDERED: Pneumococcal 23-Valent Vaccine IM ONE (10:00)
[2018-03-16] MEDS ORDERED: Potassium & Sodium Phosphate PO ONE (10:38)
--- NOTE | 2018-03-16 10:43 | CP.PCM.PN ---
Subjective - Date & Time of Evaluation Date of Evaluation: 03/16/18 Time of Evaluation: 10:40 - Subjective Subjective: Feels better Na decreased to 125 Urine paerameters c/w SIADH Has prior h/o cirrhosis Usually tovalptan not used in liver failure Objective - Vital Signs/Intake and Output Vital Signs (last 24 hours): Temp Pulse Resp BP Pulse Ox 98.1 F 84 20 126/67 100 03/16/18 08:35 03/16/18 08:35 03/16/18 08:35 03/16/18 08:35 03/16/18 08:35 Intake and Output: 03/16/18 03/16/18 06:59 18:59 Intake Total 240 Balance 240 - Medications Medications: Current Medications Amoxicillin/Clavulanate Potassium (Augmentin 875 Mg-125 Mg Tab) 1 tab PO Q12H [facility]; Protocol Stop: 03/21/18 15:31 Last Admin: 03/16/18 03:37 Dose: 1 tab Docusate Sodium (Colace) 100 mg PO DAILY PRN PRN Reason: Constipation Folic Acid (Folic Acid) 1 mg PO DAILY [facility] Last Admin: 03/16/18 09:50 Dose: 1 mg Magnesium Sulfate/Dextrose (Magnesium Sulfate 1 Gm/100 Ml D5w) 1 gm in 100 mls @ 300 mls/hr IVPB Q30M [facility] Stop: 03/16/18 11:34 Lactobacillus Acidophilus (Bacid Acidophilus) 1 cap PO BID [facility] Stop: 04/20/18 10:01 Last Admin: 03/16/18 09:50 Dose: 1 cap Lorazepam (Ativan) 1 mg IVP Q6H PRN PRN Reason: Seizure activity Metoprolol Tartrate (Lopressor) 12.5 mg PO BID [facility] Multivitamins/Vitamin C (Multi-Delyn Liquid) 5 ml PO DAILY [facility] Last Admin: 03/16/18 09:50 Dose: 5 ml Potassium Phos/Sodium Phos (Neutra-Phos) 1 pkt PO ONCE ONE Stop: 03/16/18 10:39 Thiamine HCl (Vitamin B1 Tab) 100 mg PO BID [facility] Last Admin: 03/16/18 09:49 Dose: 100 mg - Labs Labs: 03/16/18 07:42 03/16/18 07:42 PT 20.3 SECONDS (9.7-12.2) H 03/14/18 13:12 INR 1.9 03/14/18 13:12 APTT 34 SECONDS (21-34) 03/14/18 13:12 - Constitutional Appears: No Acute Distress, Chronically Ill - Head Exam Head Exam: ATRAUMATIC, NORMAL INSPECTION - Eye Exam Eye Exam: EOMI, Normal appearance - Neck Exam Neck Exam: Normal Inspection. absent: Tenderness - Respiratory Exam Respiratory Exam: Clear to Ausculation Bilateral, NORMAL BREATHING PATTERN - Cardiovascular Exam Cardiovascular Exam: REGULAR RHYTHM, +S1 - GI/Abdominal Exam GI & Abdominal Exam: Soft. absent: Tenderness - Extremities Exam Extremities Exam: Normal Inspection. absent: Tenderness - Neurological Exam Neurological Exam: Awake, CN II-XII Intact - Skin Skin Exam: Dry, Warm Assessment and Plan (1) ETOH abuse Status: Acute (2) Cirrhosis Status: Acute (3) Cirrhosis Status: Acute (4) Hyponatremia Status: Acute - Assessment and Plan (Free Text) Plan: Continue strict fluid restriction Monitor lytes replete phos
[2018-03-16] MEDS: Magnesium Sulfate 1 gm in D5W 1 GM/100 ML BAG IVPB SCH ×2 (11:04→11:05)
[2018-03-17] MEDS: Amoxicillin-Clav 875-125 mg Tab PO SCH ×2 (04:05→16:25)
[2018-03-17 06:37] LABS: BASO # 0.1 K/uL (0.0-0.2); BASO % 1.2 % (0.0-2.0); EOS # 0.1 K/uL (0.0-0.7); LYMPH # 2.4 K/uL (1.0-4.3); LYMPH % 35.3 % (20.0-40.0); MEAN CELL VOLUME 99.8 fL (80.0-94.0); MEAN CORPUSCULAR HGB CONC 34.1 g/dL (33.0-37.0); MEAN PLATELET VOLUME 10.7 fL (7.2-11.7); MONO # 0.9 K/uL (0.0-0.8); MONO % 12.7 % (0.0-10.0); NEUT # 3.3 K/uL (1.8-7.0); NEUT % 48.8 % (50.0-75.0); NRBC % 0.1 % (0.0-2.0); RBC 2.35 Mil/uL (4.40-5.90); WHITE BLOOD COUNT 6.8 K/uL (4.8-10.8)
--- NOTE | 2018-03-17 06:52 | CP.PCM.PN ---
Subjective - Date & Time of Evaluation Date of Evaluation: 03/17/18 Time of Evaluation: 07:05 - Subjective Subjective: PGY1 Medicine Progress Note for Hospitalist Dr. Jerardo Giraldo. Patient seen and examined at bedside. No overnight events reported. Patient in the AM was lying peacefully in the bed. Patient currently has no complaints. Patient denies chest pain, SOB, nausea, vomiting, abdominal pain, fevers, chills, dysuria, hematuria, headaches, vision changes. Patient states he still feels weak due to deconditioning 2/2 to his ETOH abuse. Objective - Vital Signs/Intake and Output Vital Signs (last 24 hours): Temp Pulse Resp BP Pulse Ox 99.8 F H 99 H 20 117/58 L 95 03/16/18 23:25 03/16/18 23:30 03/16/18 23:25 03/16/18 23:25 03/16/18 23:25 Intake and Output: 03/16/18 03/17/18 18:59 06:59 Intake Total 1000 480 Output Total 200 Balance 1000 280 - Medications Medications: Current Medications Amoxicillin/Clavulanate Potassium (Augmentin 875 Mg-125 Mg Tab) 1 tab PO Q12H [facility]; Protocol Stop: 03/21/18 15:31 Last Admin: 03/17/18 04:05 Dose: 1 tab Docusate Sodium (Colace) 100 mg PO DAILY PRN PRN Reason: Constipation Folic Acid (Folic Acid) 1 mg PO DAILY [facility] Last Admin: 03/16/18 09:50 Dose: 1 mg Lactobacillus Acidophilus (Bacid Acidophilus) 1 cap PO BID [facility] Stop: 04/20/18 10:01 Last Admin: 03/16/18 17:24 Dose: 1 cap Lorazepam (Ativan) 1 mg IVP Q6H PRN PRN Reason: Seizure activity Metoprolol Tartrate (Lopressor) 12.5 mg PO BID [facility] Multivitamins/Vitamin C (Multi-Delyn Liquid) 5 ml PO DAILY [facility] Last Admin: 03/16/18 09:50 Dose: 5 ml Thiamine HCl (Vitamin B1 Tab) 100 mg PO BID [facility] Last Admin: 03/16/18 17:24 Dose: 100 mg - Labs Labs: 03/17/18 06:30 03/16/18 07:42 PT 20.3 SECONDS (9.7-12.2) H 03/14/18 13:12 INR 1.9 03/14/18 13:12 APTT 34 SECONDS (21-34) 03/14/18 13:12 - Constitutional Appears: Non-toxic, No Acute Distress, Cachectic - Head Exam Additional comments: 2.0" X 2.5" subscapular fluid collection on R superior to posterior portion of head - Eye Exam Eye Exam: Normal appearance - ENT Exam ENT Exam: Mucous Membranes Moist - Respiratory Exam Respiratory Exam: Clear to Ausculation Bilateral, NORMAL BREATHING PATTERN. absent: Rales, Rhonchi, Wheezes - Cardiovascular Exam Cardiovascular Exam: +S1, +S2. absent: Murmur - GI/Abdominal Exam GI & Abdominal Exam: Soft, Normal Bowel Sounds - Extremities Exam Extremities Exam: Full ROM, Normal Inspection. absent: Calf Tenderness, Pedal Edema Additional comments: Baseline extremity tremor, pt states it has been there for several years. 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 - Back Exam Back Exam: absent: CVA tenderness (L), CVA tenderness (R) - Neurological Exam Neurological Exam: Alert, Awake, Oriented x3 - Psychiatric Exam Psychiatric exam: Normal Affect, Normal Mood - Skin Skin Exam: Dry, Intact, Normal Color, Warm Assessment and Plan - Assessment and Plan (Free Text) Assessment: 57 yr old male w/ PMhx of subdural hematoma, HTN, ETOH abuse, pneumonia: presents for unsteady gait Subdural Hematoma - CT head (03/14): Interval development of small hyperdensity within the posterior fossa close to the cerebellar vermis along the tentorium, consistent with acute subdural hematoma. Bilateral subdural collections appear hypodense consistent with chronic hematomas. Nonspecific white matter changes. - F/u neurosurgery Dr. Wynn recs - no surgerical intervention warranted at this time - F/u neurology, Dr. Skelton recs - no further neurology recs at this time - signed off - F/u CT head in AM (03/15) Hyponatremia Electrolyte imbalance - Na+ 122 (03/14) -> 129 - > 124 - Likely due to ETOH abuse - Fluid restrict to 1000ml/day - F/u nephrology, Dr. Taylor recs - Urine osmololity, serium uric acid - Give 5% saline 300 ml over 6hrs IF patient becomes altered or Na+ drops below 122 - tovalptan x 1 dose Essential Tremor - likely 2/2 to ETOH abuse - per patient, it has been there for several years - Per neurology, not likely neurological cause - 1 X 0.5mg ativan given to assess reduction of tremor Pneumonia Acute respiratory failure - CXR (03/14): Patchy right lower lobe consolidation. Mild pulmonary venous congestion. - continue outpatient therapy Augmentin 875/125mg BID for 7 days Hypertension - home medication metoprolol tartrate 12.5mg PO BID held (BP in 130s currently) Unsteady gait - patient currently has baseline tremor - patient unable to walk without assistance - physical therapy evaluation Alcohol abuse Cirrhosis - ETOH <10 - Fall precautions - Seizure precautions - Has not received anticoagulation secondary to subdural hematoma - patient is cirrhotic per US - Ativan 1mg IVP PRN - Thaimine 100 mg PO BID - Folic acid 1mg PO daily - Multivitamin 1 tab PO daily Elevated Liver Function Tests - likely secondary to patients ETOH history - From previous admission labs - Abdominal U/S 02/27/18: nodular hepatic contour consistent with cirrhosis, echogenic liver may be seen in the setting of hepatic parynchymal disease or fatty infiltration, small ascites, gallstones - Hepatitis Panel 02/27/18: negative - HIV 4th Generation 02/27/18: negative Anemia likely secondary to history alcohol abuse - Monitor HgB/Hct - From previous admission labs: - Vitamin B12 normal at 856 - Folate normal at 3.3 - Iron Studies: Total Iron at 117, % Saturation 55, Ferritin 689, TIBC low at 212 - Patient is Cirrhotic per Ab US Prophylaxis - DVT: SCDs (venous dopplers from previous admission negative), chemical contraindicated 2/2 to subdural hematoma - PT evaluation - TCU recommendation - D/c telemetry Patient verbally consented and requested that I speak with his daughters to provide them with an update on his condition. I spoke with Peri @ [phone] & Catherine @ [phone]. Both daughters understood the patients condition and stated that they will be visiting him tomorrow afternoon (03/17). Additionally, both daughters were informed that his medicaid will be expiring today at 03/17/18. Both daughters stated that they will discuss whether the patient will be able to stay with them upon discharge.
[2018-03-17 07:48] LABS: ALB/GLOB RATIO 0.6 (1.0-2.1); ALBUMIN 2.3 g/dL (3.5-5.0); ALT/SGPT 69 U/L (21-72); AST/SGOT 87 U/L (17-59); BLOOD UREA NITROGEN 8 mg/dL (9-20); CALCIUM 7.4 mg/dl (8.6-10.4); GFR NON-AFRICAN AMERICAN > 60
[2018-03-17] MEDS: Multiple Vitamins Oral Solution PO SCH (09:44)
[2018-03-17] MEDS: Lactobacillus Acidophilus 500 MU Cap PO SCH ×2 (09:44→18:18)
[2018-03-17] MEDS: Magnesium Sulfate 1 gm in D5W 1 GM/100 ML BAG IVPB SCH (09:50)
[2018-03-17] MEDS ORDERED: Potassium & Sodium Phosphate PO SCH (10:00)
[2018-03-17] MEDS ORDERED: Potassium Chloride 20 mEq ER Tab PO ONE (10:34)
--- NOTE | 2018-03-17 14:49 | CP.PCM.PN ---
Subjective - Date & Time of Evaluation Date of Evaluation: 03/17/18 Time of Evaluation: 14:47 - Subjective Subjective: tremulous but feels ok Na 124 No other new complaint Objective - Vital Signs/Intake and Output Vital Signs (last 24 hours): Temp Pulse Resp BP Pulse Ox 97.7 F 85 20 120/75 96 03/17/18 08:05 03/17/18 09:00 03/17/18 08:05 03/17/18 08:05 03/17/18 08:05 Intake and Output: 03/17/18 03/17/18 06:59 18:59 Intake Total 480 400 Output Total 200 300 Balance 280 100 - Medications Medications: Current Medications Amoxicillin/Clavulanate Potassium (Augmentin 875 Mg-125 Mg Tab) 1 tab PO Q12H [facility]; Protocol Stop: 03/21/18 15:31 Last Admin: 03/17/18 04:05 Dose: 1 tab Docusate Sodium (Colace) 100 mg PO DAILY PRN PRN Reason: Constipation Folic Acid (Folic Acid) 1 mg PO DAILY [facility] Last Admin: 03/17/18 09:54 Dose: 1 mg Lactobacillus Acidophilus (Bacid Acidophilus) 1 cap PO BID [facility] Stop: 04/20/18 10:01 Last Admin: 03/17/18 09:44 Dose: 1 cap Lorazepam (Ativan) 1 mg IVP Q6H PRN PRN Reason: Seizure activity Metoprolol Tartrate (Lopressor) 12.5 mg PO BID [facility] Multivitamins/Vitamin C (Multi-Delyn Liquid) 5 ml PO DAILY [facility] Last Admin: 03/17/18 09:44 Dose: 5 ml Potassium Phos/Sodium Phos (Neutra-Phos) 1 pkt PO TID [facility] Stop: 03/18/18 14:01 Thiamine HCl (Vitamin B1 Tab) 100 mg PO BID [facility] Last Admin: 03/17/18 09:44 Dose: 100 mg - Labs Labs: 03/17/18 06:30 03/17/18 06:30 PT 20.3 SECONDS (9.7-12.2) H 03/14/18 13:12 INR 1.9 03/14/18 13:12 APTT 34 SECONDS (21-34) 03/14/18 13:12 - Constitutional Appears: No Acute Distress, Chronically Ill - Head Exam Head Exam: ATRAUMATIC, NORMAL INSPECTION - Eye Exam Eye Exam: EOMI, Normal appearance - Neck Exam Neck Exam: Normal Inspection. absent: Tenderness - Respiratory Exam Respiratory Exam: Clear to Ausculation Bilateral, NORMAL BREATHING PATTERN - Cardiovascular Exam Cardiovascular Exam: REGULAR RHYTHM, +S1 - GI/Abdominal Exam GI & Abdominal Exam: Soft. absent: Tenderness - Extremities Exam Extremities Exam: Normal Inspection. absent: Tenderness - Neurological Exam Neurological Exam: Awake, CN II-XII Intact - Skin Skin Exam: Dry, Warm Assessment and Plan (1) ETOH abuse Status: Acute (2) Cirrhosis Status: Acute (3) Cirrhosis Status: Acute (4) Hyponatremia Status: Acute - Assessment and Plan (Free Text) Plan: Serial chemistries If Na decreases closer to 120, can try tovalptan x 1 dose
--- NOTE | 2018-03-17 14:53 | CP.PCM.CON ---
History of Present Illness - History of Present Illness History of Present Illness: Neurology Consult Note for Dr. Skelton Reason for Consult: Ataxia, SDH HPI: Patient is a 57 yo M with PMH of HTN, SDH, lice, thrombocytopenia, anemia, EtOH abuse, liver cirrhosis, and PNA presents to [facility] due to ataxia. Patient was recently admitted for SDH on 02/27/18, but signed out AMA. At that time, TCU was recommended, but patient refused. After leaving the hospital patient realized he had difficulty ambulating on his own. Patient has an extended history of EtOH abuse and admits to drinking between this admission and the last. Patient denies CP, SOB, n/v/d, abdominal pain, fever, chills, RUDD, numbness, dizziness, weakness, or RUDD. PMH: HTN, subdural hematoma, lice, thrombocytopenia, anemia, ETOH abuse, liver cirrhosis, pneumonia Surg: None Allergies: NKDA SHx: Extensive hx of ETOH abuse FHx: unknown Meds: metoprolol tartrate 12.5mg BID, Augmenten 875/125 mg BID, Lactobacillus 1 cap BID, aspirin 81mg BID Review of Systems - Review of Systems All systems: reviewed and no additional remarkable complaints except (12 point ROS reviewed and is negative other than what is stated in HPI.) Past Patient History - Infectious Disease Hx of Infectious Diseases: None - Past Medical History & Family History Past Medical History?: No Past Family History: Reviewed and not pertinent - Past Social History Smoking Status: Unknown If Ever Smoked Chewing Tobacco Use: No Cigar Use: No Alcohol: > 2 Drinks/Day Home Situation {Lives}: Alone - CARDIAC Hx Hypertension: Yes - PULMONARY Hx Pneumonia: Yes - MUSCULOSKELETAL/RHEUMATOLOGICAL Hx Musculoskeletal Disorders: Yes Hx Falls: Yes - GASTROINTESTINAL Hx Liver Failure: Yes - PSYCHIATRIC Hx Substance Use: No - SURGICAL HISTORY Hx Surgeries: No - ANESTHESIA Hx Anesthesia: No Meds Allergies/Adverse Reactions: Allergies Allergy/AdvReac Type Severity Reaction Status Date / Time No Known Allergies Allergy Verified 03/14/18 11:58 - Medications Medications: Current Medications Amoxicillin/Clavulanate Potassium (Augmentin 875 Mg-125 Mg Tab) 1 tab PO Q12H [facility]; Protocol Stop: 03/21/18 15:31 Last Admin: 03/17/18 04:05 Dose: 1 tab Docusate Sodium (Colace) 100 mg PO DAILY PRN PRN Reason: Constipation Folic Acid (Folic Acid) 1 mg PO DAILY [facility] Last Admin: 03/17/18 09:54 Dose: 1 mg Lactobacillus Acidophilus (Bacid Acidophilus) 1 cap PO BID [facility] Stop: 04/20/18 10:01 Last Admin: 03/17/18 09:44 Dose: 1 cap Lorazepam (Ativan) 1 mg IVP Q6H PRN PRN Reason: Seizure activity Lorazepam (Ativan) 0.5 mg IVP ONCE ONE Stop: 03/17/18 14:46 Metoprolol Tartrate (Lopressor) 12.5 mg PO BID [facility] Multivitamins/Vitamin C (Multi-Delyn Liquid) 5 ml PO DAILY [facility] Last Admin: 03/17/18 09:44 Dose: 5 ml Potassium Phos/Sodium Phos (Neutra-Phos) 1 pkt PO TID [facility] Stop: 03/18/18 14:01 Thiamine HCl (Vitamin B1 Tab) 100 mg PO BID [facility] Last Admin: 03/17/18 09:44 Dose: 100 mg Physical Exam - Constitutional Appears: No Acute Distress - Head Exam Head Exam: NORMAL INSPECTION - Eye Exam Eye Exam: EOMI, Normal appearance, PERRL - ENT Exam ENT Exam: Mucous Membranes Moist, Normal Exam - Neck Exam Neck exam: Positive for: Normal Inspection - Respiratory Exam Respiratory Exam: Clear to Auscultation Bilateral. absent: Rales, Rhonchi, Wheezes - Cardiovascular Exam Cardiovascular Exam: RRR, +S1, +S2. absent: Diastolic murmur, Gallop, Rubs, Systolic Murmur - GI/Abdominal Exam GI & Abdominal Exam: Soft. absent: Guarding, Rebound, Tenderness - Extremities Exam Extremities exam: Positive for: normal inspection - Back Exam Back exam: NORMAL INSPECTION - Neurological Exam Neurological exam: Alert, CN II-XII Intact, Oriented x3, Reflexes Normal Additional comments: wide based gait, no cogwheel rigidity, pt able to go from seated to standing transition without assistance UE and LE strength 5/5, no sensory deficits, neurovascularly intact Results - Vital Signs Recent Vital Signs: Last Vital Signs Temp 97.7 F 03/17/18 08:05 Pulse 85 03/17/18 09:00 Resp 20 03/17/18 08:05 BP 120/75 03/17/18 08:05 Pulse Ox 96 03/17/18 08:05 - Labs Result Diagrams: 03/17/18 06:30 03/17/18 06:30 Labs: Laboratory Results - last 24 hr 03/17/18 03/17/18 03/17/18 06:30 06:30 06:30 WBC 6.8 RBC 2.35 L Hgb 8.0 L Hct 23.5 L MCV 99.8 H MCH 34.0 H MCHC 34.1 RDW 17.0 H Plt Count 95 L MPV 10.7 Neut % (Auto) 48.8 L Lymph % (Auto) 35.3 [place] % (Auto) 12.7 H Eos % (Auto) 2.0 Baso % (Auto) 1.2 Neut # (Auto) 3.3 Lymph # (Auto) 2.4 [place] # (Auto) 0.9 H Eos # (Auto) 0.1 Baso # (Auto) 0.1 Sodium 124 L Potassium 4.0 Chloride 91 L Carbon Dioxide 26 Anion Gap 11 BUN 8 L Creatinine 0.7 L Est GFR ( Amer) > 60 Est GFR (Non-Af Amer) > 60 Random Glucose 98 Serum Osmolality 260 L Calcium 7.4 L Phosphorus 1.9 L Magnesium 1.2 L Total Bilirubin 2.7 H AST 87 H ALT 69 Alkaline Phosphatase 132 H Total Protein 6.0 L Albumin 2.3 L Globulin 3.7 Albumin/Globulin Ratio 0.6 L Assessment & Plan - Assessment and Plan (Free Text) Assessment: 57 yo M with PMH of HTN, SDH, lice, thrombocytopenia, anemia, EtOH abuse, liver cirrhosis, and PNA admitted for ataxia and SDH. CT head showed stable small medial left tentorial subdural hematoma with no mass-effect related. NO new interval intracranial hemorrhage. Ataxia is likely 2/2 to EtOH abuse. Possible concern for for Parkinson's in a patient in this age group, but clinically at this point EtOH is more likely. Plan: - Recommend EtOH cessation - Correct hyponatremia per nephrology - Nothing to do from neurosurgery standpoint - Outpatient follow up - Patient clear from neurology stand point, at this time we will sign off. Please reconsult if needed. Patient seen and discussed in detail with Dr. Skelton. Ruslan Booker, DO PGY2
[2018-03-17] MEDS: Potassium & Sodium Phosphate PO SCH ×2 (15:08→18:18)
--- NOTE | 2018-03-18 00:46 | CP.PCM.PN ---
<Byron Arellano - Last Filed: 03/18/18 00:44> Subjective - Date & Time of Evaluation Date of Evaluation: 03/18/18 Time of Evaluation: 00:44 - Subjective Subjective: HOSPITALIST SERVICE Pt seen and examined at bedside. Pt denies cp sob fc nv, denies acute events overnight Objective - Vital Signs/Intake and Output Vital Signs (last 24 hours): Temp Pulse Resp BP Pulse Ox 98.9 F 98 H 20 104/74 97 03/17/18 23:30 03/17/18 23:30 03/17/18 23:30 03/17/18 23:30 03/17/18 23:30 Intake and Output: 03/17/18 03/18/18 18:59 06:59 Intake Total 400 500 Output Total 300 Balance 100 500 - Medications Medications: Current Medications Amoxicillin/Clavulanate Potassium (Augmentin 875 Mg-125 Mg Tab) 1 tab PO Q12H [facility]; Protocol Stop: 03/21/18 15:31 Last Admin: 03/17/18 16:25 Dose: 1 tab Docusate Sodium (Colace) 100 mg PO DAILY PRN PRN Reason: Constipation Folic Acid (Folic Acid) 1 mg PO DAILY [facility] Last Admin: 03/17/18 09:54 Dose: 1 mg Lactobacillus Acidophilus (Bacid Acidophilus) 1 cap PO BID [facility] Stop: 04/20/18 10:01 Last Admin: 03/17/18 18:18 Dose: 1 cap Lorazepam (Ativan) 1 mg IVP Q6H PRN PRN Reason: Seizure activity Metoprolol Tartrate (Lopressor) 12.5 mg PO BID [facility] Multivitamins/Vitamin C (Multi-Delyn Liquid) 5 ml PO DAILY [facility] Last Admin: 03/17/18 09:44 Dose: 5 ml Potassium Phos/Sodium Phos (Neutra-Phos) 1 pkt PO TID [facility] Stop: 03/18/18 14:01 Last Admin: 03/17/18 18:18 Dose: 1 pkt Thiamine HCl (Vitamin B1 Tab) 100 mg PO BID [facility] Last Admin: 03/17/18 18:18 Dose: 100 mg - Labs Labs: 03/17/18 06:30 03/17/18 06:30 PT 20.3 SECONDS (9.7-12.2) H 03/14/18 13:12 INR 1.9 03/14/18 13:12 APTT 34 SECONDS (21-34) 03/14/18 13:12 - Additional Findings Additional findings: - Constitutional Appears: Non-toxic, No Acute Distress, Cachectic - Head Exam Additional comments: 2.0" X 2.5" subscapular fluid collection on R superior to posterior portion of head - Eye Exam Eye Exam: Normal appearance - ENT Exam ENT Exam: Mucous Membranes Moist - Respiratory Exam Respiratory Exam: Clear to Ausculation Bilateral, NORMAL BREATHING PATTERN. absent: Rales, Rhonchi, Wheezes - Cardiovascular Exam Cardiovascular Exam: +S1, +S2. absent: Murmur - GI/Abdominal Exam GI & Abdominal Exam: Soft, Normal Bowel Sounds - Extremities Exam Extremities Exam: Full ROM, Normal Inspection. absent: Calf Tenderness, Pedal Edema Additional comments: Baseline extremity tremor, pt states it has been there for several years. 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 - Back Exam Back Exam: absent: CVA tenderness (L), CVA tenderness (R) - Neurological Exam Neurological Exam: Alert, Awake, Oriented x3 - Psychiatric Exam Psychiatric exam: Normal Affect, Normal Mood - Skin Skin Exam: Dry, Intact, Normal Color, Warm Assessment and Plan - Assessment and Plan (Free Text) Assessment: 57 yr old male w/ PMhx of subdural hematoma, HTN, ETOH abuse, pneumonia: presents for unsteady gait Subdural Hematoma - CT head (03/14): Interval development of small hyperdensity within the posterior fossa close to the cerebellar vermis along the tentorium, consistent with acute subdural hematoma. Bilateral subdural collections appear hypodense consistent with chronic hematomas. Nonspecific white matter changes. - F/u neurosurgery Dr. Wynn recs - no surgerical intervention warranted at this time - F/u neurology, Dr. Skelton recs - no further neurology recs at this time - signed off - F/u CT head in AM (03/15) Hyponatremia Electrolyte imbalance - Na+ 122 (03/14) -> 129 - > 124 - Likely due to ETOH abuse - Fluid restrict to 1000ml/day - F/u nephrology, Dr. Taylor recs - Urine osmololity, serium uric acid - Give 5% saline 300 ml over 6hrs IF patient becomes altered or Na+ drops below 122 - tovalptan x 1 dose Essential Tremor - likely 2/2 to ETOH abuse - per patient, it has been there for several years - Per neurology, not likely neurological cause - 1 X 0.5mg ativan given to assess reduction of tremor Pneumonia Acute respiratory failure - CXR (03/14): Patchy right lower lobe consolidation. Mild pulmonary venous congestion. - continue outpatient therapy Augmentin 875/125mg BID for 7 days Hypertension - home medication metoprolol tartrate 12.5mg PO BID held (BP in 130s currently) Unsteady gait - patient currently has baseline tremor - patient unable to walk without assistance - physical therapy evaluation Alcohol abuse Cirrhosis - ETOH <10 - Fall precautions - Seizure precautions - Has not received anticoagulation secondary to subdural hematoma - patient is cirrhotic per US - Ativan 1mg IVP PRN - Thaimine 100 mg PO BID - Folic acid 1mg PO daily - Multivitamin 1 tab PO daily Elevated Liver Function Tests - likely secondary to patients ETOH history - From previous admission labs - Abdominal U/S 02/27/18: nodular hepatic contour consistent with cirrhosis, echogenic liver may be seen in the setting of hepatic parynchymal disease or fatty infiltration, small ascites, gallstones - Hepatitis Panel 02/27/18: negative - HIV 4th Generation 02/27/18: negative Anemia likely secondary to history alcohol abuse - Monitor HgB/Hct - From previous admission labs: - Vitamin B12 normal at 856 - Folate normal at 3.3 - Iron Studies: Total Iron at 117, % Saturation 55, Ferritin 689, TIBC low at 212 - Patient is Cirrhotic per Ab US Prophylaxis - DVT: SCDs (venous dopplers from previous admission negative), chemical contraindicated 2/2 to subdural hematoma - PT evaluation - TCU recommendation - D/c telemetry Patient verbally consented and requested that I speak with his daughters to provide them with an update on his condition. I spoke with Peri @ [phone] & Catherine @ [phone]. Both daughters understood the patients condition and stated that they will be visiting him tomorrow afternoon (03/17). Additionally, both daughters were informed that his medicaid will be expiring today at 03/17/18. Both daughters stated that they will discuss whether the patient will be able to stay with them upon discharge. <Thea Davison - Last Filed: 03/18/18 18:21> Objective - Vital Signs/Intake and Output Vital Signs (last 24 hours): Temp Pulse Resp BP Pulse Ox 99.2 F 102 H 20 134/71 96 03/18/18 15:05 03/18/18 15:05 03/18/18 15:05 03/18/18 15:05 03/18/18 15:05 Intake and Output: 03/18/18 03/18/18 06:59 18:59 Intake Total 500 900 Output Total 380 Balance 500 520 - Medications Medications: Current Medications Amoxicillin/Clavulanate Potassium (Augmentin 875 Mg-125 Mg Tab) 1 tab PO Q12H [facility]; Protocol Stop: 03/21/18 15:31 Last Admin: 03/18/18 14:42 Dose: 1 tab Docusate Sodium (Colace) 100 mg PO DAILY PRN PRN Reason: Constipation Folic Acid (Folic Acid) 1 mg PO DAILY [facility] Last Admin: 03/18/18 09:44 Dose: 1 mg Lactobacillus Acidophilus (Bacid Acidophilus) 1 cap PO BID [facility] Stop: 04/20/18 10:01 Last Admin: 03/18/18 17:30 Dose: 1 cap Lorazepam (Ativan) 1 mg IVP Q6H PRN PRN Reason: Seizure activity Metoprolol Tartrate (Lopressor) 12.5 mg PO BID [facility] Multivitamins/Vitamin C (Multi-Delyn Liquid) 5 ml PO DAILY [facility] Last Admin: 03/18/18 09:44 Dose: 5 ml Thiamine HCl (Vitamin B1 Tab) 100 mg PO BID [facility] Last Admin: 03/18/18 17:30 Dose: 100 mg - Labs Labs: 03/18/18 07:41 03/18/18 13:57 PT 20.3 SECONDS (9.7-12.2) H 03/14/18 13:12 INR 1.9 03/14/18 13:12 APTT 34 SECONDS (21-34) 03/14/18 13:12 Attending/Attestation - Attestation I have personally seen and examined this patient.: Yes I have fully participated in the care of the patient.: Yes I have reviewed all pertinent clinical information, including history, physical exam and plan: Yes Notes (Text): Patient was seen and examined by me. He is alert and oriented x3 He is 57years male with history of Cirrhosis,ETOH abuse and recent Subdural hemorrhage is readmitted for unsteady gait Has hypontremia ,followed by director of revenue continue fluid restriction,follow electrolytes and mag level repeat sodium [address] Taylor this afternoon. We will monitor sodium
[2018-03-18] MEDS: Amoxicillin-Clav 875-125 mg Tab PO SCH ×2 (04:53→14:42)
[2018-03-18 08:01] LABS: BASO # 0.1 K/uL (0.0-0.2); EOS # 0.2 K/uL (0.0-0.7); EOS % 3.3 % (0.0-4.0); HEMOGLOBIN 8.1 g/dL (12.0-18.0); LYMPH # 2.2 K/uL (1.0-4.3); LYMPH % 31.4 % (20.0-40.0); MEAN CELL VOLUME 99.4 fL (80.0-94.0); MEAN CORPUSCULAR HEMOGLOBIN 34.1 pg (27.0-31.0); MEAN CORPUSCULAR HGB CONC 34.3 g/dL (33.0-37.0); MEAN PLATELET VOLUME 10.9 fL (7.2-11.7); MONO % 14.1 % (0.0-10.0); NEUT # 3.5 K/uL (1.8-7.0); NEUT % 50.2 % (50.0-75.0); NRBC % 0.1 % (0.0-2.0); RBC 2.37 Mil/uL (4.40-5.90); RED CELL DISTRIBUTION WIDTH 17.7 % (11.5-14.5); WHITE BLOOD COUNT 6.9 K/uL (4.8-10.8)
[2018-03-18 08:16] LABS: ALB/GLOB RATIO 0.6 (1.0-2.1); ALBUMIN 2.3 g/dL (3.5-5.0); ALT/SGPT 55 U/L (21-72); AST/SGOT 70 U/L (17-59); BLOOD UREA NITROGEN 9 mg/dL (9-20); CALCIUM 7.6 mg/dl (8.6-10.4); GFR NON-AFRICAN AMERICAN > 60
--- NOTE | 2018-03-18 09:23 | CP.PCM.PN ---
Subjective - Date & Time of Evaluation Date of Evaluation: 03/18/18 Time of Evaluation: 09:20 - Subjective Subjective: serum sodium unchanged at 123 in positive water according to chart up in bed eating follows commands ROS no dizziness no sob no chest pain no abd pain no n/v/d no dysuria Objective - Vital Signs/Intake and Output Vital Signs (last 24 hours): Temp Pulse Resp BP Pulse Ox 99.6 F 95 H 20 121/62 96 03/18/18 07:33 03/18/18 07:33 03/18/18 07:33 03/18/18 07:33 03/18/18 07:33 Intake and Output: 03/18/18 03/18/18 06:59 18:59 Intake Total 500 Balance 500 - Medications Medications: Current Medications Amoxicillin/Clavulanate Potassium (Augmentin 875 Mg-125 Mg Tab) 1 tab PO Q12H [facility]; Protocol Stop: 03/21/18 15:31 Last Admin: 03/18/18 04:53 Dose: 1 tab Docusate Sodium (Colace) 100 mg PO DAILY PRN PRN Reason: Constipation Folic Acid (Folic Acid) 1 mg PO DAILY [facility] Last Admin: 03/17/18 09:54 Dose: 1 mg Lactobacillus Acidophilus (Bacid Acidophilus) 1 cap PO BID [facility] Stop: 04/20/18 10:01 Last Admin: 03/17/18 18:18 Dose: 1 cap Lorazepam (Ativan) 1 mg IVP Q6H PRN PRN Reason: Seizure activity Metoprolol Tartrate (Lopressor) 12.5 mg PO BID [facility] Multivitamins/Vitamin C (Multi-Delyn Liquid) 5 ml PO DAILY [facility] Last Admin: 03/17/18 09:44 Dose: 5 ml Potassium Phos/Sodium Phos (Neutra-Phos) 1 pkt PO TID [facility] Stop: 03/18/18 14:01 Last Admin: 03/17/18 18:18 Dose: 1 pkt Thiamine HCl (Vitamin B1 Tab) 100 mg PO BID [facility] Last Admin: 03/17/18 18:18 Dose: 100 mg - Labs Labs: 03/18/18 07:41 03/18/18 07:41 PT 20.3 SECONDS (9.7-12.2) H 03/14/18 13:12 INR 1.9 11/27/18 13:12 APTT 34 SECONDS (21-34) 03/14/18 13:12 - Constitutional Appears: No Acute Distress - ENT Exam ENT Exam: Mucous Membranes Moist - Respiratory Exam Respiratory Exam: Clear to Ausculation Bilateral, NORMAL BREATHING PATTERN - Cardiovascular Exam Cardiovascular Exam: REGULAR RHYTHM - GI/Abdominal Exam GI & Abdominal Exam: Distended, Soft. absent: Tenderness Additional comments: dull distended - Extremities Exam Extremities Exam: absent: Calf Tenderness - Back Exam Back Exam: absent: CVA tenderness (L), CVA tenderness (R) - Skin Skin Exam: Dry Assessment and Plan (1) Cirrhosis Status: Acute (2) ETOH abuse Status: Acute (3) Hyponatremia Status: Acute (4) Subdural hemorrhage Status: Acute - Assessment and Plan (Free Text) Plan: discussed case with nurse to try to enforce fluid restriction repeat bmp this PM and ammonia mental status apparently unchanged according to staff may require 3% nacl
[2018-03-18] MEDS: Potassium & Sodium Phosphate PO SCH ×2 (09:44→14:43)
[2018-03-18] MEDS: Lactobacillus Acidophilus 500 MU Cap PO SCH ×2 (09:44→17:30)
[2018-03-18] MEDS: Multiple Vitamins Oral Solution PO SCH (09:44)
[2018-03-18] MEDS: Magnesium Sulfate 1 gm in D5W 1 GM/100 ML BAG IVPB SCH ×2 (11:24→11:26)
[2018-03-18 14:25] LABS: BLOOD UREA NITROGEN 9 mg/dL (9-20); CALCIUM 7.9 mg/dl (8.6-10.4); GFR NON-AFRICAN AMERICAN > 60
--- NOTE | 2018-03-19 00:12 | CP.PCM.PN ---
<Byron Arellano - Last Filed: 03/19/18 00:10> Subjective - Date & Time of Evaluation Date of Evaluation: 03/19/18 Time of Evaluation: 00:10 - Subjective Subjective: HOSPITALIST SERVICE Pt seen and examined at bedside, fever overnight 101.1. Pt denies sob nv chills sweats. no diarrhea.f/u bc uc move IV lines Objective - Vital Signs/Intake and Output Vital Signs (last 24 hours): Temp Pulse Resp BP Pulse Ox 101.1 F H 96 H 20 121/63 95 03/18/18 23:26 03/18/18 23:26 03/18/18 23:26 03/18/18 23:26 03/18/18 23:26 Intake and Output: 03/18/18 03/19/18 18:59 06:59 Intake Total 900 Output Total 380 Balance 520 - Medications Medications: Current Medications Acetaminophen (Tylenol 325mg Tab) 650 mg PO Q6 [facility] Stop: 03/20/18 00:01 Amoxicillin/Clavulanate Potassium (Augmentin 875 Mg-125 Mg Tab) 1 tab PO Q12H [facility]; Protocol Stop: 03/21/18 15:31 Last Admin: 03/18/18 14:42 Dose: 1 tab Docusate Sodium (Colace) 100 mg PO DAILY PRN PRN Reason: Constipation Folic Acid (Folic Acid) 1 mg PO DAILY [facility] Last Admin: 03/18/18 09:44 Dose: 1 mg Lactobacillus Acidophilus (Bacid Acidophilus) 1 cap PO BID [facility] Stop: 04/20/18 10:01 Last Admin: 03/18/18 17:30 Dose: 1 cap Lorazepam (Ativan) 1 mg IVP Q6H PRN PRN Reason: Seizure activity Metoprolol Tartrate (Lopressor) 12.5 mg PO BID [facility] Multivitamins/Vitamin C (Multi-Delyn Liquid) 5 ml PO DAILY [facility] Last Admin: 03/18/18 09:44 Dose: 5 ml Thiamine HCl (Vitamin B1 Tab) 100 mg PO BID [facility] Last Admin: 03/18/18 17:30 Dose: 100 mg - Labs Labs: 03/18/18 07:41 03/18/18 13:57 PT 20.3 SECONDS (9.7-12.2) H 03/14/18 13:12 INR 1.9 03/14/18 13:12 APTT 34 SECONDS (21-34) 03/14/18 13:12 - Additional Findings Additional findings: - Constitutional Appears: Non-toxic, No Acute Distress, Cachectic - Head Exam Additional comments: 2.0" X 2.5" subscapular fluid collection on R superior to posterior portion of head - Eye Exam Eye Exam: Normal appearance - ENT Exam ENT Exam: Mucous Membranes Moist - Respiratory Exam Respiratory Exam: Clear to Ausculation Bilateral, NORMAL BREATHING PATTERN. absent: Rales, Rhonchi, Wheezes - Cardiovascular Exam Cardiovascular Exam: +S1, +S2. absent: Murmur - GI/Abdominal Exam GI & Abdominal Exam: Soft, Normal Bowel Sounds - Extremities Exam Extremities Exam: Full ROM, Normal Inspection. absent: Calf Tenderness, Pedal Edema Additional comments: Baseline extremity tremor, pt states it has been there for several years. 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 - Back Exam Back Exam: absent: CVA tenderness (L), CVA tenderness (R) - Neurological Exam Neurological Exam: Alert, Awake, Oriented x3 - Psychiatric Exam Psychiatric exam: Normal Affect, Normal Mood - Skin Skin Exam: Dry, Intact, Normal Color, Warm Assessment and Plan - Assessment and Plan (Free Text) Assessment: Assessment and Plan - Assessment and Plan (Free Text) Assessment: 57 yr old male w/ PMhx of subdural hematoma, HTN, ETOH abuse, pneumonia: presents for unsteady gait Subdural Hematoma - CT head (03/14): Interval development of small hyperdensity within the posterior fossa close to the cerebellar vermis along the tentorium, consistent with acute subdural hematoma. Bilateral subdural collections appear hypodense consistent with chronic hematomas. Nonspecific white matter changes. - F/u neurosurgery Dr. Wynn recs - no surgerical intervention warranted at this time - F/u neurology, Dr. Skelton recs - no further neurology recs at this time - signed off - F/u CT head in AM (03/15) Hyponatremia Electrolyte imbalance - Na+ 122 (03/14) -> 129 - > 124 - Likely due to ETOH abuse - Fluid restrict to 1000ml/day - F/u nephrology, Dr. Taylor recs - Urine osmololity, serium uric acid - Give 5% saline 300 ml over 6hrs IF patient becomes altered or Na+ drops below 122 - tovalptan x 1 dose Essential Tremor - likely 2/2 to ETOH abuse - per patient, it has been there for several years - Per neurology, not likely neurological cause - 1 X 0.5mg ativan given to assess reduction of tremor Pneumonia Acute respiratory failure - CXR (03/14): Patchy right lower lobe consolidation. Mild pulmonary venous congestion. - continue outpatient therapy Augmentin 875/125mg BID for 7 days -f/u bc, and uc -move IV lines -f/u AM CXR Hypertension - home medication metoprolol tartrate 12.5mg PO BID held (BP in 130s currently) Unsteady gait - patient currently has baseline tremor - patient unable to walk without assistance - physical therapy evaluation Alcohol abuse Cirrhosis - ETOH <10 - Fall precautions - Seizure precautions - Has not received anticoagulation secondary to subdural hematoma - patient is cirrhotic per US - Ativan 1mg IVP PRN - Thaimine 100 mg PO BID - Folic acid 1mg PO daily - Multivitamin 1 tab PO daily Elevated Liver Function Tests - likely secondary to patients ETOH history - From previous admission labs - Abdominal U/S 02/27/18: nodular hepatic contour consistent with cirrhosis, echogenic liver may be seen in the setting of hepatic parynchymal disease or fatty infiltration, small ascites, gallstones - Hepatitis Panel 02/27/18: negative - HIV 4th Generation 02/27/18: negative Anemia likely secondary to history alcohol abuse - Monitor HgB/Hct - From previous admission labs: - Vitamin B12 normal at 856 - Folate normal at 3.3 - Iron Studies: Total Iron at 117, % Saturation 55, Ferritin 689, TIBC low at 212 - Patient is Cirrhotic per Ab US Prophylaxis - DVT: SCDs (venous dopplers from previous admission negative), chemical contraindicated 2/2 to subdural hematoma - PT evaluation - TCU recommendation - D/c telemetry Patient verbally consented and requested that I speak with his daughters to provide them with an update on his condition. I spoke with Peri @ [phone] & Catherine @ [phone]. Both daughters understood the patients condition and stated that they will be visiting him tomorrow afternoon (03/17). Additionally, both daughters were informed that his medicaid will be expiring today at 03/17/18. Both daughters stated that they will discuss whether the patient will be able to stay with them upon discharge. <Judie Rossi V - Last Filed: 03/19/18 22:32> Objective - Vital Signs/Intake and Output Vital Signs (last 24 hours): Temp Pulse Resp BP Pulse Ox 100.7 F H 97 H 20 132/66 99 03/19/18 15:55 03/19/18 15:55 03/19/18 15:55 03/19/18 15:55 03/19/18 15:55 Intake and Output: 03/19/18 03/20/18 18:59 06:59 Intake Total 1240 100 Output Total 360 100 Balance 880 0 - Medications Medications: Current Medications Amoxicillin/Clavulanate Potassium (Augmentin 875 Mg-125 Mg Tab) 1 tab PO Q12H [facility]; Protocol Stop: 03/21/18 15:31 Last Admin: 03/19/18 14:31 Dose: 1 tab Docusate Sodium (Colace) 100 mg PO DAILY PRN PRN Reason: Constipation Folic Acid (Folic Acid) 1 mg PO DAILY [facility] Last Admin: 03/19/18 09:49 Dose: 1 mg Lactobacillus Acidophilus (Bacid Acidophilus) 1 cap PO BID [facility] Stop: 04/20/18 10:01 Last Admin: 03/19/18 17:34 Dose: 1 cap Lorazepam (Ativan) 1 mg IVP Q6H PRN PRN Reason: Seizure activity Metoprolol Tartrate (Lopressor) 12.5 mg PO BID [facility] Multivitamins/Vitamin C (Multi-Delyn Liquid) 5 ml PO DAILY [facility] Last Admin: 03/19/18 09:49 Dose: 5 ml Thiamine HCl (Vitamin B1 Tab) 100 mg PO BID [facility] Last Admin: 03/19/18 17:36 Dose: 100 mg - Labs Labs: 03/19/18 08:31 03/19/18 08:31 PT 20.3 SECONDS (9.7-12.2) H 03/14/18 13:12 INR 1.9 03/14/18 13:12 APTT 34 SECONDS (21-34) 03/14/18 13:12 Attending/Attestation - Attestation I have personally seen and examined this patient.: Yes I have fully participated in the care of the patient.: Yes I have reviewed all pertinent clinical information, including history, physical exam and plan: Yes Notes (Text): Patient seen, examined and case discussed with medical director of hospice. Patient spiked a fever overnight. Patient's main complaint is cough. Patient's repeat chest xray noted for pneumonia which he was treated in last admission and remains Augmentin during this admission. patient had blood cultures repeated and urine studies repeated today. Cough prn added Assessment/Plan 1) Subdural Hematoma - CT head (03/14): Interval development of small hyperdensity within the posterior fossa close to the cerebellar vermis along the tentorium, consistent with acute subdural hematoma. Bilateral subdural collections appear hypodense consistent with chronic hematomas. Nonspecific white matter changes. - F/u neurosurgery Dr. Wynn recs - no surgerical intervention warranted at this time - F/u neurology, Dr. Skelton recs - no further neurology recs at this time - signed off - CT head in AM (03/15): stable small medial left tentorial subdural hematoma with no mass effect related. No new interval intracranial hemorrhage. Stable bilateral subdural hygromas. Stable mild diffuse cerebral atrophy reiterated. 2) Hyponatremia Electrolyte imbalance SIADH - Na+ 122 (03/14) -> 129 - > 124 - Likely due to ETOH abuse - Fluid restrict to 1000ml/day - F/u nephrology, Dr. Taylor recs 3) Essential Tremor - likely 2/2 to ETOH abuse - per patient, it has been there for several years - Per neurology, not likely neurological cause 4) Pneumonia Acute respiratory failure - CXR (03/14): Patchy right lower lobe consolidation. Mild pulmonary venous congestion. - continue outpatient therapy Augmentin 875/125mg BID for 7 days -f/u bc, and uc -move IV lines -f/u AM CXR 5) Hypertension - home medication metoprolol tartrate 12.5mg PO BID held (BP in 130s currently) 6) Unsteady gait - patient currently has baseline tremor - patient unable to walk without assistance - physical therapy evaluation 7) Alcohol abuse Cirrhosis - ETOH <10 - Fall precautions - Seizure precautions - Has not received anticoagulation secondary to subdural hematoma - patient is cirrhotic per US - Ativan 1mg IVP PRN - Thaimine 100 mg PO BID - Folic acid 1mg PO daily - Multivitamin 1 tab PO daily 8) Elevated Liver Function Tests - likely secondary to patients ETOH history - From previous admission labs - Abdominal U/S 02/27/18: nodular hepatic contour consistent with cirrhosis, echogenic liver may be seen in the setting of hepatic parynchymal disease or fatty infiltration, small ascites, gallstones - Hepatitis Panel 02/27/18: negative - HIV 4th Generation 02/27/18: negative 9) Anemia likely secondary to history alcohol abuse - Monitor HgB/Hct - From previous admission labs: - Vitamin B12 normal at 856 - Folate normal at 3.3 - Iron Studies: Total Iron at 117, % Saturation 55, Ferritin 689, TIBC low at 212 - Patient is Cirrhotic per Ab US 10) Prophylaxis * DVT: SCDs (venous dopplers from previous admission negative), chemical contraindicated 2/2 to subdural hematoma * PT evaluation - TCU recommendation * D/c telemetry * Peri @ [phone] & Catherine @ [phone]. Both daughters understood the patients condition and stated that they will be visiting him tomorrow afternoon (03/17) * f/u social work referral Disposition: pending active insurance for rehab placement; f/u social work; monitor sodium in light of liver cirrhosis and currently on fluid restriction.
[2018-03-19] MEDS: Amoxicillin-Clav 875-125 mg Tab PO SCH ×2 (03:54→14:31)
[2018-03-19 08:38] LABS: BASO # 0.1 K/uL (0.0-0.2); BASO % 1.3 % (0.0-2.0); EOS # 0.3 K/uL (0.0-0.7); EOS % 3.6 % (0.0-4.0); HEMOGLOBIN 9.1 g/dL (12.0-18.0); LYMPH % 27.7 % (20.0-40.0); MEAN CELL VOLUME 100.1 fL (80.0-94.0); MEAN CORPUSCULAR HEMOGLOBIN 34.1 pg (27.0-31.0); MEAN CORPUSCULAR HGB CONC 34.1 g/dL (33.0-37.0); MEAN PLATELET VOLUME 10.8 fL (7.2-11.7); MONO # 1.2 K/uL (0.0-0.8); MONO % 16.7 % (0.0-10.0); NEUT # 3.7 K/uL (1.8-7.0); NEUT % 50.7 % (50.0-75.0); NRBC % 0.1 % (0.0-2.0); RBC 2.68 Mil/uL (4.40-5.90); RED CELL DISTRIBUTION WIDTH 17.5 % (11.5-14.5); WHITE BLOOD COUNT 7.2 K/uL (4.8-10.8)
[2018-03-19 08:53] LABS: ALB/GLOB RATIO 0.7 (1.0-2.1); ALBUMIN 2.7 g/dL (3.5-5.0); ALT/SGPT 59 U/L (21-72); AST/SGOT 74 U/L (17-59); BLOOD UREA NITROGEN 8 mg/dL (9-20); CALCIUM 7.8 mg/dl (8.6-10.4); GFR NON-AFRICAN AMERICAN > 60
--- NOTE | 2018-03-19 09:05 | RAD ---
Chest x-ray two views HISTORY: Pneumonia. COMPARISON: 03/14/2018 Findings: Persistent patchy increased consolidative changes at the right lower lung zone concerning for underlying infiltrate. Posttreatment interval follow-up is recommended to ensure resolution and exclude underlying lesion. Diffuse increased interstitial lung markings bilaterally. Biapical pleural thickening with upper lobe granulomatous changes. Heart size within normal limits. Degenerative changes in the spine. Impression: Persistent patchy increased consolidative changes at the right lower lung zone concerning for underlying infiltrate. Posttreatment interval follow-up is recommended to ensure resolution and exclude underlying lesion. Diffuse increased interstitial lung markings bilaterally. Biapical pleural thickening with upper lobe granulomatous changes.
[2018-03-19] MEDS: Lactobacillus Acidophilus 500 MU Cap PO SCH ×2 (09:49→17:34)
[2018-03-19] MEDS: Multiple Vitamins Oral Solution PO SCH (09:49)
[2018-03-19] MEDS: Magnesium Sulfate 1 gm in D5W 1 GM/100 ML BAG IVPB SCH (11:35)
[2018-03-20] MEDS: Amoxicillin-Clav 875-125 mg Tab PO SCH ×2 (04:23→14:36)
--- NOTE | 2018-03-20 07:07 | CP.PCM.PN ---
<Charly Bell - Last Filed: 03/20/18 10:31> Subjective - Date & Time of Evaluation Date of Evaluation: 03/20/18 Time of Evaluation: 07:00 - Subjective Subjective: PGY1 Medicine Progress Note for Hospitalist Dr. Rossi. Patient lying in bed with no complaints. No overnight events reported. Patient lying in bed, no acute distress. Patient states he feels fine and currently has no new complaints. Patient denies chest pain, SOB, abdominal pain, nausea, vomiting, fevers, chills. Patient states he still has a baseline hand tremor that has been persistent for the past several years. On further questioning patient attests to mild lower extremity tenderness. Objective - Vital Signs/Intake and Output Vital Signs (last 24 hours): Temp Pulse Resp BP Pulse Ox 98.6 F 86 18 110/60 98 03/19/18 23:27 03/19/18 23:27 03/19/18 23:27 03/19/18 23:27 03/19/18 23:27 Intake and Output: 03/20/18 03/20/18 06:59 18:59 Intake Total 100 Output Total 100 Balance 0 - Medications Medications: Current Medications Amoxicillin/Clavulanate Potassium (Augmentin 875 Mg-125 Mg Tab) 1 tab PO Q12H [facility]; Protocol Stop: 03/21/18 15:31 Last Admin: 03/20/18 04:23 Dose: 1 tab Docusate Sodium (Colace) 100 mg PO DAILY PRN PRN Reason: Constipation Folic Acid (Folic Acid) 1 mg PO DAILY [facility] Last Admin: 03/19/18 09:49 Dose: 1 mg Guaifenesin (Mucinex La) 600 mg PO BID [facility] Lactobacillus Acidophilus (Bacid Acidophilus) 1 cap PO BID [facility] Stop: 04/20/18 10:01 Last Admin: 03/19/18 17:34 Dose: 1 cap Lorazepam (Ativan) 1 mg IVP Q6H PRN PRN Reason: Seizure activity Metoprolol Tartrate (Lopressor) 12.5 mg PO BID [facility] Multivitamins/Vitamin C (Multi-Delyn Liquid) 5 ml PO DAILY [facility] Last Admin: 03/19/18 09:49 Dose: 5 ml Thiamine HCl (Vitamin B1 Tab) 100 mg PO BID [facility] Last Admin: 03/19/18 17:36 Dose: 100 mg - Labs Labs: 03/19/18 08:31 03/19/18 08:31 PT 20.3 SECONDS (9.7-12.2) H 03/14/18 13:12 INR 1.9 03/14/18 13:12 APTT 34 SECONDS (21-34) 03/14/18 13:12 - Constitutional Appears: Non-toxic, No Acute Distress - Eye Exam Eye Exam: Normal appearance - ENT Exam ENT Exam: Mucous Membranes Moist - Respiratory Exam Respiratory Exam: Clear to Ausculation Bilateral, NORMAL BREATHING PATTERN. absent: Rales, Rhonchi, Wheezes - Cardiovascular Exam Cardiovascular Exam: +S1, +S2. absent: Murmur - GI/Abdominal Exam GI & Abdominal Exam: Soft, Normal Bowel Sounds - Extremities Exam Extremities Exam: absent: Pedal Edema Additional comments: mild edema b/l le - Back Exam Back Exam: absent: CVA tenderness (L), CVA tenderness (R) - Neurological Exam Neurological Exam: Alert, Awake, Oriented x3 - Psychiatric Exam Psychiatric exam: Normal Affect, Normal Mood - Skin Skin Exam: Dry, Intact, Normal Color, Warm Assessment and Plan - Assessment and Plan (Free Text) Assessment: 57 yr old male w/ PMhx of subdural hematoma, HTN, ETOH abuse, pneumonia: presents for unsteady gait Subdural Hematoma - CT head (03/14): Interval development of small hyperdensity within the posterior fossa close to the cerebellar vermis along the tentorium, consistent with acute subdural hematoma. Bilateral subdural collections appear hypodense consistent with chronic hematomas. Nonspecific white matter changes. - CT head (03/15): Stable small medial left tentorial subdural hematoma with no mass-effect related. No new interval intracranial hemorrhage. Stable bilateral subdural hygromas. Stable mild diffuse cerebral atrophy reiterated. Continued clinical and CT vigilance recommended. - F/u neurosurgery Dr. Wynn recs - no surgerical intervention warranted at this time - F/u neurology, Dr. Skelton recs - no further neurology recs at this time - signed off - CT head in AM (03/22) Hyponatremia Electrolyte imbalance - Na+ 122 (03/14) -> 129 - > 124 (03/20) - Likely due to ETOH abuse - Fluid restrict to 1000ml/day - F/u nephrology, Dr. Brandon recs - Urine osmololity, serium uric acid - Give 5% saline 300 ml over 6hrs IF patient becomes altered or Na+ drops below 122 - tovalptan x 1 dose if Na <120 - Mg 1.5, Phos 2.1, replenish w/ Mg 1gm X2 bags & neutrophos TID Pneumonia Fevers Acute respiratory failure - CXR (03/14): Patchy right lower lobe consolidation. Mild pulmonary venous congestion. - continue outpatient therapy Augmentin 875/125mg BID for 7 days - Fever spikes on 03/19 @3pm Tmax 100.7, will continue to trend - CXR (03/19): persistent patch increased consolidative changes at RLL zone concerning for underlying infiltrate. Posttreatment interval following-up is recommended to ensure resolution & exclude underlying lesion. Diffuse increased interstitial lung markings bilaterally. Biapical pleural thickening with upper lobe granulomatous changes. - Blood cultures 03/19 - negative X 24 hr - F/u urine cultures Lower Leg Edema - PAD vs DVT vs other cases - F/u LE duplex B/L - F/u D-dimer Essential Tremor - likely 2/2 to ETOH abuse - per patient, it has been there for several years - Per neurology, not likely neurological cause - 1 X 0.5mg ativan given to assess reduction of tremor - tremor still persistent Hypertension - resume home medication metoprolol tartrate 12.5mg PO BID Unsteady gait - patient currently has baseline tremor - patient unable to walk without assistance - physical therapy evaluation - Fall precautions - Bedside commode Alcohol abuse Cirrhosis - ETOH <10 - Fall precautions - Seizure precautions - Has not received anticoagulation secondary to subdural hematoma - patient is cirrhotic per US - Ativan 1mg IVP PRN - Thaimine 100 mg PO BID - Folic acid 1mg PO daily - Multivitamin 1 tab PO daily Elevated Liver Function Tests - likely secondary to patients ETOH history - From previous admission labs - Abdominal U/S 02/27/18: nodular hepatic contour consistent with cirrhosis, echogenic liver may be seen in the setting of hepatic parynchymal disease or fatty infiltration, small ascites, gallstones - Hepatitis Panel 02/27/18: negative - HIV 4th Generation 02/27/18: negative Anemia likely secondary to history alcohol abuse - Monitor HgB/Hct - From previous admission labs: - Vitamin B12 normal at 856 - Folate normal at 3.3 - Iron Studies: Total Iron at 117, % Saturation 55, Ferritin 689, TIBC low at 212 - Patient is Cirrhotic per Ab US Prophylaxis - DVT: SCDs (venous dopplers from previous admission negative), chemical contraindicated 2/2 to subdural hematoma - PT evaluation - TCU recommendation - D/c telemetry Patient verbally consented and requested that I speak with his daughters to provide them with an update on his condition. I spoke with Peri @ [phone] & Catherine @ [phone] on 03/17. Both daughters understood the patients condition. Additionally, both daughters were informed that his medicaid will be expiring today at 03/17/18. Both daughters stated that they will discuss whether the patient will be able to stay with them upon discharge. <Judie Rossi V - Last Filed: 03/20/18 18:26> Objective - Vital Signs/Intake and Output Vital Signs (last 24 hours): Temp Pulse Resp BP Pulse Ox 98.1 F 94 H 20 125/71 100 03/20/18 17:00 03/20/18 18:04 03/20/18 17:00 03/20/18 18:04 03/20/18 17:00 Intake and Output: 03/20/18 03/20/18 06:59 18:59 Intake Total 100 800 Output Total 100 Balance 0 800 - Medications Medications: Current Medications Amoxicillin/Clavulanate Potassium (Augmentin 875 Mg-125 Mg Tab) 1 tab PO Q12H [facility]; Protocol Stop: 03/21/18 15:31 Last Admin: 03/20/18 14:36 Dose: 1 tab Docusate Sodium (Colace) 100 mg PO DAILY PRN PRN Reason: Constipation Folic Acid (Folic Acid) 1 mg PO DAILY [facility] Last Admin: 03/20/18 09:19 Dose: 1 mg Guaifenesin (Mucinex La) 600 mg PO BID [facility] Last Admin: 03/20/18 18:00 Dose: 600 mg Lactobacillus Acidophilus (Bacid Acidophilus) 1 cap PO BID [facility] Stop: 04/20/18 10:01 Last Admin: 03/20/18 18:00 Dose: 1 cap Lorazepam (Ativan) 1 mg IVP Q6H PRN PRN Reason: Seizure activity Metoprolol Tartrate (Lopressor) 12.5 mg PO BID [facility] Last Admin: 03/20/18 18:03 Dose: 12.5 mg Multivitamins/Vitamin C (Multi-Delyn Liquid) 5 ml PO DAILY [facility] Last Admin: 03/20/18 09:23 Dose: 5 ml Potassium Phos/Sodium Phos (Neutra-Phos) 1 pkt PO TID [facility] Stop: 03/23/18 10:01 Last Admin: 03/20/18 18:00 Dose: 1 pkt Sodium Chloride (Sodium Chloride Tab) 1 gm PO BID [facility] Last Admin: 03/20/18 18:00 Dose: 1 gm Thiamine HCl (Vitamin B1 Tab) 100 mg PO BID [facility] Last Admin: 03/20/18 18:00 Dose: 100 mg - Labs Labs: 03/20/18 07:23 03/20/18 07:23 PT 20.3 SECONDS (9.7-12.2) H 03/14/18 13:12 INR 1.9 03/14/18 13:12 APTT 34 SECONDS (21-34) 03/14/18 13:12 Attending/Attestation - Attestation I have personally seen and examined this patient.: Yes I have fully participated in the care of the patient.: Yes I have reviewed all pertinent clinical information, including history, physical exam and plan: Yes Notes (Text): Patient seen, examined and case discussed with medical staffing coordinator. Patient spiked a fever yesterday afternoon 100.7 Fahrenheit Patient's main complaint is cough. No cultures have been negative for 24 hours. Urine culture is shows no growth. Patient has noted for mild extremity tenderness. In light of of prior smoking history and fall and given fever we'll rule out clot. Patient does have an elevated d-dimer. We'll check for venous Doppler to rule out DVT as well as CT anterior to rule out PE. Is no patient cannot be started on anticoagulation on light of acute subdural that was noted earlier in in the admission if this is the case we'll have to touch base with neurosurgery to make sure the anticoagulation cannot be given in light of the subdural and may have to consider a IVC filter placement. Patient has been seen by nephrology. We'll recheck SIADH parameters as well as maybe consider salt tabs. We will need to follow-up with social work in regards to reestablishing Medicare for the patient as well as check with nursing staff to reaffirm fall risk precautions. Assessment/Plan 1) Subdural Hematoma - CT head (03/14): Interval development of small hyperdensity within the posterior fossa close to the cerebellar vermis along the tentorium, consistent with acute subdural hematoma. Bilateral subdural collections appear hypodense consistent with chronic hematomas. Nonspecific white matter changes. - F/u neurosurgery Dr. Wynn recs - no surgerical intervention warranted at this time - F/u neurology, Dr. Skelton recs - no further neurology recs at this time - signed off - CT head in AM (03/15): stable small medial left tentorial subdural hematoma with no mass effect related. No new interval intracranial hemorrhage. Stable bilateral subdural hygromas. Stable mild diffuse cerebral atrophy reiterated. 2) Hyponatremia Electrolyte imbalance SIADH - Na+ 122 (03/14) -> 129 - > 124 - Likely due to ETOH abuse - Fluid restrict to 1000ml/day - F/u nephrology, Dr. Taylor recs -Possible consideration for salt tabs. 3) Essential Tremor - likely 2/2 to ETOH abuse - per patient, it has been there for several years - Per neurology, not likely neurological cause 4) Pneumonia Acute respiratory failure - CXR (03/14): Patchy right lower lobe consolidation. Mild pulmonary venous congestion. - continue outpatient therapy Augmentin 875/125mg BID for 7 days Blood cultures March 19 oh growth for 24 hours 2 Culture from March 19 no growth Patient complaining of lower extremity pain will rule out DVT if the d-dimer is elevated will rule out PE. 5) Hypertension - home medication metoprolol tartrate 12.5mg PO BID held (BP in 130s currently) will restart 6) Unsteady gait - patient currently has baseline tremor - patient unable to walk without assistance - physical therapy evaluation Reemphasized fall risk precautions 7) Alcohol abuse Cirrhosis - ETOH <10 - Fall precautions - Seizure precautions - Has not received anticoagulation secondary to subdural hematoma - patient is cirrhotic per US - Ativan 1mg IVP PRN - Thaimine 100 mg PO BID - Folic acid 1mg PO daily - Multivitamin 1 tab PO daily 8) Elevated Liver Function Tests - likely secondary to patients ETOH history - From previous admission labs - Abdominal U/S 02/27/18: nodular hepatic contour consistent with cirrhosis, echogenic liver may be seen in the setting of hepatic parynchymal disease or fatty infiltration, small ascites, gallstones - Hepatitis Panel 02/27/18: negative - HIV 4th Generation 02/27/18: negative 9) Anemia likely secondary to history alcohol abuse - Monitor HgB/Hct - From previous admission labs: - Vitamin B12 normal at 856 - Folate normal at 3.3 - Iron Studies: Total Iron at 117, % Saturation 55, Ferritin 689, TIBC low at 212 - Patient is Cirrhotic per Ab US 10) Prophylaxis * DVT: SCDs (venous dopplers from previous admission negative), chemical contraindicated 2/2 to subdural hematoma * PT evaluation - TCU recommendation * D/c telemetry * Peri @ [phone] & Catherine @ [phone]. Both daughters understood the patients condition and stated that they will be visiting him tomorrow afternoon (03/17) * f/u social work referral Disposition: pending active insurance for rehab placement; f/u social work; monitor sodium in light of liver cirrhosis and currently on fluid restriction. Patient had complained about lower extremity tenderness. Will rule out DVT. If patient's d-dimer is also elevated we have to consider rule out PE. Patient is not hypoxic however is at times tachycardic and did spike a fever yesterday
[2018-03-20 07:28] LABS: BASO # 0.1 K/uL (0.0-0.2); BASO % 1.1 % (0.0-2.0); EOS # 0.3 K/uL (0.0-0.7); EOS % 3.4 % (0.0-4.0); HEMOGLOBIN 8.1 g/dL (12.0-18.0); LYMPH # 2.7 K/uL (1.0-4.3); LYMPH % 36.1 % (20.0-40.0); MEAN CELL VOLUME 99.7 fL (80.0-94.0); MEAN CORPUSCULAR HEMOGLOBIN 34.1 pg (27.0-31.0); MEAN CORPUSCULAR HGB CONC 34.2 g/dL (33.0-37.0); MEAN PLATELET VOLUME 10.3 fL (7.2-11.7); MONO # 1.1 K/uL (0.0-0.8); MONO % 15.3 % (0.0-10.0); NEUT # 3.3 K/uL (1.8-7.0); NEUT % 44.1 % (50.0-75.0); NRBC % 0.1 % (0.0-2.0); RBC 2.36 Mil/uL (4.40-5.90); RED CELL DISTRIBUTION WIDTH 17.4 % (11.5-14.5); WHITE BLOOD COUNT 7.4 K/uL (4.8-10.8)
[2018-03-20 08:11] LABS: ALB/GLOB RATIO 0.7 (1.0-2.1); ALBUMIN 2.4 g/dL (3.5-5.0); ALT/SGPT 48 U/L (21-72); AST/SGOT 68 U/L (17-59); BLOOD UREA NITROGEN 8 mg/dL (9-20); CALCIUM 7.3 mg/dl (8.6-10.4); GFR NON-AFRICAN AMERICAN > 60
[2018-03-20] MEDS: Potassium & Sodium Phosphate PO SCH ×3 (09:18→18:00)
[2018-03-20] MEDS: guaiFENesin 600 mg ER Tab PO SCH ×2 (09:18→18:00)
[2018-03-20] MEDS: Magnesium Sulfate 1 gm in D5W 1 GM/100 ML BAG IVPB SCH (09:19)
[2018-03-20] MEDS: Multiple Vitamins Oral Solution PO SCH (09:23)
[2018-03-20] MEDS: Lactobacillus Acidophilus 500 MU Cap PO SCH ×2 (09:23→18:00)
--- NOTE | 2018-03-20 12:30 | CP.PCM.PN ---
Subjective - Date & Time of Evaluation Date of Evaluation: 03/20/18 Time of Evaluation: 12:29 - Subjective Subjective: patient about same Na lower 124 Will try nacl tabbs Recheck siadh parameters Objective - Vital Signs/Intake and Output Vital Signs (last 24 hours): Temp Pulse Resp BP Pulse Ox 98.7 F 94 H 20 118/61 98 03/20/18 08:00 03/20/18 08:00 03/20/18 08:00 03/20/18 08:00 03/20/18 08:00 Intake and Output: 03/20/18 03/20/18 06:59 18:59 Intake Total 100 Output Total 100 Balance 0 - Medications Medications: Current Medications Amoxicillin/Clavulanate Potassium (Augmentin 875 Mg-125 Mg Tab) 1 tab PO Q12H [facility]; Protocol Stop: 03/21/18 15:31 Last Admin: 03/20/18 04:23 Dose: 1 tab Docusate Sodium (Colace) 100 mg PO DAILY PRN PRN Reason: Constipation Folic Acid (Folic Acid) 1 mg PO DAILY [facility] Last Admin: 03/20/18 09:19 Dose: 1 mg Guaifenesin (Mucinex La) 600 mg PO BID [facility] Last Admin: 03/20/18 09:18 Dose: 600 mg Lactobacillus Acidophilus (Bacid Acidophilus) 1 cap PO BID [facility] Stop: 04/20/18 10:01 Last Admin: 03/20/18 09:23 Dose: 1 cap Lorazepam (Ativan) 1 mg IVP Q6H PRN PRN Reason: Seizure activity Metoprolol Tartrate (Lopressor) 12.5 mg PO BID [facility] Multivitamins/Vitamin C (Multi-Delyn Liquid) 5 ml PO DAILY [facility] Last Admin: 03/20/18 09:23 Dose: 5 ml Potassium Phos/Sodium Phos (Neutra-Phos) 1 pkt PO TID [facility] Stop: 03/23/18 10:01 Last Admin: 03/20/18 09:18 Dose: 1 pkt Thiamine HCl (Vitamin B1 Tab) 100 mg PO BID [facility] Last Admin: 03/20/18 09:23 Dose: 100 mg - Labs Labs: 03/20/18 07:23 03/20/18 07:23 PT 20.3 SECONDS (9.7-12.2) H 03/14/18 13:12 INR 1.9 03/14/18 13:12 APTT 34 SECONDS (21-34) 03/14/18 13:12 - Constitutional Appears: No Acute Distress, Chronically Ill - Head Exam Head Exam: ATRAUMATIC, NORMAL INSPECTION - Eye Exam Eye Exam: EOMI, Normal appearance - Neck Exam Neck Exam: Normal Inspection. absent: Tenderness - Respiratory Exam Respiratory Exam: Clear to Ausculation Bilateral, NORMAL BREATHING PATTERN - Cardiovascular Exam Cardiovascular Exam: REGULAR RHYTHM, +S1 - GI/Abdominal Exam GI & Abdominal Exam: Soft. absent: Tenderness - Extremities Exam Extremities Exam: Normal Inspection. absent: Tenderness - Neurological Exam Neurological Exam: Awake, CN II-XII Intact - Skin Skin Exam: Dry, Warm Assessment and Plan (1) ETOH abuse Status: Acute (2) Cirrhosis Status: Acute (3) Cirrhosis Status: Acute (4) Hyponatremia Status: Acute - Assessment and Plan (Free Text) Plan: Add nacl tabs Recheck for siadh
[2018-03-20 16:53] LABS: OSMOLALITY,URINE 639 mosm/kg (300-1000)
[2018-03-20] MEDS ORDERED: Iohexol 350mg/ml 100 ML ONE (18:27)
[2018-03-21] MEDS: Amoxicillin-Clav 875-125 mg Tab PO SCH ×2 (04:28→14:46)
--- NOTE | 2018-03-21 06:55 | CP.PCM.PN ---
Subjective - Date & Time of Evaluation Date of Evaluation: 03/21/18 Time of Evaluation: 07:00 - Subjective Subjective: PGY 1 Medicine Progress Note for Hospitalist Dr. Rossi. Patient seen and examined at bedside. No overnight events reported. Patient ly ing in bed comfortably, no acute distress. Patient denies any complaints. He denies chest pain, SOB, headaches, vision changes, nausea, vomiting, abdominal pain, dysuria, hematuria. Patient does state his tremor has improved since yesterday and he has walked through the hallway with PT assistance. Objective - Vital Signs/Intake and Output Vital Signs (last 24 hours): Temp Pulse Resp BP Pulse Ox 99 F 85 20 109/55 L 97 03/20/18 23:05 03/20/18 23:05 03/20/18 23:05 03/20/18 23:05 03/20/18 23:05 Intake and Output: 03/20/18 03/21/18 18:59 06:59 Intake Total 800 400 Output Total 500 Balance 800 -100 - Medications Medications: Current Medications Amoxicillin/Clavulanate Potassium (Augmentin 875 Mg-125 Mg Tab) 1 tab PO Q12H [facility]; Protocol Stop: 03/21/18 15:31 Last Admin: 03/21/18 04:28 Dose: 1 tab Docusate Sodium (Colace) 100 mg PO DAILY PRN PRN Reason: Constipation Folic Acid (Folic Acid) 1 mg PO DAILY [facility] Last Admin: 03/20/18 09:19 Dose: 1 mg Guaifenesin (Mucinex La) 600 mg PO BID [facility] Last Admin: 03/20/18 18:00 Dose: 600 mg Lactobacillus Acidophilus (Bacid Acidophilus) 1 cap PO BID [facility] Stop: 04/20/18 10:01 Last Admin: 03/20/18 18:00 Dose: 1 cap Lorazepam (Ativan) 1 mg IVP Q6H PRN PRN Reason: Seizure activity Metoprolol Tartrate (Lopressor) 12.5 mg PO BID [facility] Last Admin: 03/20/18 18:03 Dose: 12.5 mg Multivitamins/Vitamin C (Multi-Delyn Liquid) 5 ml PO DAILY [facility] Last Admin: 03/20/18 09:23 Dose: 5 ml Potassium Phos/Sodium Phos (Neutra-Phos) 1 pkt PO TID [facility] Stop: 03/23/18 10:01 Last Admin: 03/20/18 18:00 Dose: 1 pkt Sodium Chloride (Sodium Chloride Tab) 1 gm PO BID [facility] Last Admin: 03/20/18 18:00 Dose: 1 gm Thiamine HCl (Vitamin B1 Tab) 100 mg PO BID [facility] Last Admin: 03/20/18 18:00 Dose: 100 mg - Labs Labs: 03/20/18 07:23 03/20/18 07:23 PT 20.3 SECONDS (9.7-12.2) H 03/14/18 13:12 INR 1.9 03/14/18 13:12 APTT 34 SECONDS (21-34) 03/14/18 13:12 - Constitutional Appears: Non-toxic, No Acute Distress - Eye Exam Eye Exam: Normal appearance - ENT Exam ENT Exam: Mucous Membranes Moist - Respiratory Exam Respiratory Exam: Clear to Ausculation Bilateral, NORMAL BREATHING PATTERN. absent: Rales, Rhonchi, Wheezes - Cardiovascular Exam Cardiovascular Exam: +S1, +S2. absent: Murmur - GI/Abdominal Exam GI & Abdominal Exam: Soft, Normal Bowel Sounds. absent: Firm, Guarding, Rigid - Extremities Exam Extremities Exam: Full ROM. absent: Calf Tenderness Additional comments: mild edema/trace b/l le xeroderma b/l le - Back Exam Back Exam: absent: CVA tenderness (L), CVA tenderness (R) - Neurological Exam Neurological Exam: Alert, Awake, Oriented x3 - Psychiatric Exam Psychiatric exam: Normal Affect, Normal Mood - Skin Skin Exam: Dry, Normal Color, Warm Assessment and Plan - Assessment and Plan (Free Text) Assessment: 57 yr old male w/ PMhx of subdural hematoma, HTN, ETOH abuse, pneumonia: presents for unsteady gait Subdural Hematoma - CT head (03/14): Interval development of small hyperdensity within the posterior fossa close to the cerebellar vermis along the tentorium, consistent with acute subdural hematoma. Bilateral subdural collections appear hypodense consistent with chronic hematomas. Nonspecific white matter changes. - CT head (03/15): Stable small medial left tentorial subdural hematoma with no mass-effect related. No new interval intracranial hemorrhage. Stable bilateral subdural hygromas. Stable mild diffuse cerebral atrophy reiterated. Continued clinical and CT vigilance recommended. - F/u neurosurgery Dr. Wynn recs - no surgerical intervention warranted at this time - F/u neurology, Dr. Skelton recs - no further neurology recs at this time - signed off - CT head in AM (03/22) Hyponatremia Electrolyte imbalance - Na+ 122 (03/14) -> 129 - > 124 -> 126 (03/21) - NaCl restarted 03/22 - Likely due to ETOH abuse - Fluid restrict to 1000ml/day - F/u nephrology, Dr. Taylor recs - Urine osmololity, serium uric acid - Give 5% saline 300 ml over 6hrs IF patient becomes altered or Na+ drops below 122 - tovalptan x 1 dose if Na <120 - due to persistant hyponatremia, NaCl resumed - Mg 1.5 -> 1.6 - Mg 1gm X 2bags 03/20 -Phos 2.1 -> 2.0 - neutrophos TID on 03/20 Pneumonia Fevers Acute respiratory failure - CXR (03/14): Patchy right lower lobe consolidation. Mild pulmonary venous congestion. - continue outpatient therapy Augmentin 875/125mg BID for 7 days - Fever spikes on 03/19 @3pm Tmax 100.7, will continue to trend - CXR (03/19): persistent patch increased consolidative changes at RLL zone concerning for underlying infiltrate. Posttreatment interval following-up is recommended to ensure resolution & exclude underlying lesion. Diffuse increased interstitial lung markings bilaterally. Biapical pleural thickening with upper lobe granulomatous changes. - Blood cultures 03/19 - negative X 48 hrs - urine cultures negative - Afebril 24 hrs Lower Leg Edema - PAD vs DVT vs other cases - D-dimer 4000s - CTA (03/22): no PE, moderate pleural effusion, pulmonary edema/CHF, hilar adenopathy- likely reactive - F/u LE & UE duplex B/L - IF duplex negative - compressive stockings - Vit A& D for xeroderma Essential Tremor - likely 2/2 to ETOH abuse - per patient, it has been there for several years - Per neurology, not likely neurological cause - 1 X 0.5mg ativan given to assess reduction of tremor - tremor still persistent Hypertension - resume home medication metoprolol tartrate 12.5mg PO BID Unsteady gait - patient currently has baseline tremor - patient unable to walk without assistance - physical therapy evaluation - on 03/21 - patient is stable for D/C with rolling walker - Fall precautions - Bedside commode Alcohol abuse Cirrhosis - ETOH <10 - Fall precautions - Seizure precautions - Has not received anticoagulation secondary to subdural hematoma - patient is cirrhotic per US - Ativan 1mg IVP PRN - Thaimine 100 mg PO BID - Folic acid 1mg PO daily - Multivitamin 1 tab PO daily Elevated Liver Function Tests - likely secondary to patients ETOH history - From previous admission labs - Abdominal U/S 02/27/18: nodular hepatic contour consistent with cirrhosis, echogenic liver may be seen in the setting of hepatic parynchymal disease or fatty infiltration, small ascites, gallstones - Hepatitis Panel 02/27/18: negative - HIV 4th Generation 02/27/18: negative Anemia likely secondary to history alcohol abuse - Monitor HgB/Hct - From previous admission labs: - Vitamin B12 normal at 856 - Folate normal at 3.3 - Iron Studies: Total Iron at 117, % Saturation 55, Ferritin 689, TIBC low at 212 - Patient is Cirrhotic per Ab US Prophylaxis - DVT: SCDs (venous dopplers from previous admission negative), chemical contraindicated 2/2 to subdural hematoma - PT evaluation - TCU recommendation - D/c telemetry Patient verbally consented and requested that I speak with his daughters to provide them with an update on his condition. Spoke with Peri @ [phone] & Catherine @ [phone] on 03/17. Both daughters understood the patients condition. Additionally, both daughters were informed that his medicaid will be expiring on 03/17/18. Both daughters stated that they will discuss whether the patient will be able to stay with them upon discharge. Spoke with Peri on 03/21, daughter has re-submitted medicaid paperwork on 03/20. She stated Catherine might be able to take father to her residence after D/C; however, made multiple attempts to reach Catherine, but was unable to get in contact. PT recs safe D/C with rolling walker; however, patient is homeless and would not be able to go to [facility] w walker. Will make another attempt to reach out to daughter Catherine.
[2018-03-21 07:53] LABS: BASO # 0.1 K/uL (0.0-0.2); BASO % 0.8 % (0.0-2.0); EOS # 0.4 K/uL (0.0-0.7); EOS % 5.6 % (0.0-4.0); LYMPH # 2.8 K/uL (1.0-4.3); LYMPH % 40.9 % (20.0-40.0); MEAN CELL VOLUME 99.4 fL (80.0-94.0); MEAN CORPUSCULAR HEMOGLOBIN 33.9 pg (27.0-31.0); MEAN CORPUSCULAR HGB CONC 34.1 g/dL (33.0-37.0); MONO # 1.1 K/uL (0.0-0.8); NEUT # 2.5 K/uL (1.8-7.0); NEUT % 36.7 % (50.0-75.0); RBC 2.36 Mil/uL (4.40-5.90); RED CELL DISTRIBUTION WIDTH 16.9 % (11.5-14.5); WHITE BLOOD COUNT 6.9 K/uL (4.8-10.8)
[2018-03-21 08:25] LABS: ALB/GLOB RATIO 0.6 (1.0-2.1); ALBUMIN 2.3 g/dL (3.5-5.0); ALT/SGPT 40 U/L (21-72); AST/SGOT 53 U/L (17-59); BLOOD UREA NITROGEN 7 mg/dL (9-20); CALCIUM 7.2 mg/dl (8.6-10.4); GFR NON-AFRICAN AMERICAN > 60; URIC ACID 2.7 mg/dL (3.5-8.5)
[2018-03-21] MEDS: Lactobacillus Acidophilus 500 MU Cap PO SCH ×2 (09:22→17:21)
[2018-03-21] MEDS: Potassium & Sodium Phosphate PO SCH ×3 (09:23→17:21)
[2018-03-21] MEDS: Multiple Vitamins Oral Solution PO SCH (09:23)
[2018-03-21] MEDS: guaiFENesin 600 mg ER Tab PO SCH ×2 (09:23→17:23)
[2018-03-21] MEDS: Vitamins A & D Oint UD Foilpak TOP SCH ×2 (12:30→17:21)
--- NOTE | 2018-03-21 12:30 | CT ---
Date of service: 03/20/2018 PROCEDURE: CT Chest with contrast (Pulmonary Angiogram) HISTORY: elevated d-dimer COMPARISON: 03/03/2018 TECHNIQUE: Axial computed tomography images were obtained of the chest in the pulmonary arterial phase of enhancement. Coronal and sagittal reformatted images were created and reviewed. Intravenous contrast dose: Radiation dose: Total exam DLP = 312.83 mGy-cm. This CT exam was performed using one or more of the following dose reduction techniques: Automated exposure control, adjustment of the mA and/or kV according to patient size, and/or use of iterative reconstruction technique. FINDINGS: PULMONARY ARTERIES: Unremarkable. No pulmonary embolism. AORTA: No acute findings. No thoracic aortic aneurysm. No aortic atherosclerotic calcification or mural plaque present. LUNGS: Dense right lower lobe consolidation pattern with pneumonia. Scattered bullous emphysema. Interstitial prominence probably related to pulmonary venous congestion with diffuse pulmonary edema. PLEURAL SPACES: Bilateral pleural effusions, right greater left. HEART: Cardiomegaly y. No significant pericardial effusion. LYMPH NODES: Possible subcarinal lymphadenopathy; cannot exclude malignancy. BONES, CHEST WALL: Unremarkable. No fracture or destructive lesion OTHER FINDINGS: Unremarkable. IMPRESSION: No evidence of pulmonary embolism. Dense consolidation at the right base with right pleural effusion. Increased subcarinal soft tissue density, possibly related lymphadenopathy; cannot exclude malignancy.
--- NOTE | 2018-03-21 13:07 | CP.PCM.PN ---
Subjective - Date & Time of Evaluation Date of Evaluation: 03/21/18 Time of Evaluation: 13:06 - Subjective Subjective: seen and examined awake rsponding to questions, eating lunch. denies any pain n/v/d/dizziness/cp/fevers/chills/dysuria no events na 126 Objective - Vital Signs/Intake and Output Vital Signs (last 24 hours): Temp Pulse Resp BP Pulse Ox 98.2 F 80 20 108/55 L 96 03/21/18 07:10 03/21/18 07:10 03/21/18 07:10 03/21/18 07:10 03/21/18 07:10 Intake and Output: 03/21/18 03/21/18 06:59 18:59 Intake Total 400 Output Total 500 Balance -100 - Medications Medications: Current Medications Amoxicillin/Clavulanate Potassium (Augmentin 875 Mg-125 Mg Tab) 1 tab PO Q12H [facility]; Protocol Stop: 03/21/18 15:31 Last Admin: 03/21/18 04:28 Dose: 1 tab Docusate Sodium (Colace) 100 mg PO DAILY PRN PRN Reason: Constipation Folic Acid (Folic Acid) 1 mg PO DAILY [facility] Last Admin: 03/21/18 09:22 Dose: 1 mg Guaifenesin (Mucinex La) 600 mg PO BID [facility] Last Admin: 03/21/18 09:23 Dose: 600 mg Lactobacillus Acidophilus (Bacid Acidophilus) 1 cap PO BID [facility] Stop: 04/20/18 10:01 Last Admin: 03/21/18 09:22 Dose: 1 cap Lorazepam (Ativan) 1 mg IVP Q6H PRN PRN Reason: Seizure activity Metoprolol Tartrate (Lopressor) 12.5 mg PO BID [facility] Last Admin: 03/21/18 09:22 Dose: 12.5 mg Multivitamins/Vitamin C (Multi-Delyn Liquid) 5 ml PO DAILY [facility] Last Admin: 03/21/18 09:23 Dose: 5 ml Potassium Phos/Sodium Phos (Neutra-Phos) 1 pkt PO TID [facility] Stop: 03/23/18 10:01 Last Admin: 03/21/18 09:23 Dose: 1 pkt Sodium Chloride (Sodium Chloride Tab) 1 gm PO BID [facility] Last Admin: 03/21/18 09:22 Dose: 1 gm Thiamine HCl (Vitamin B1 Tab) 100 mg PO BID [facility] Last Admin: 03/21/18 09:23 Dose: 100 mg Vitamin A (Vitamin A & D Oint Ud Foilpak) 1 ea TOP BID [facility] - Labs Labs: 03/21/18 07:39 03/21/18 07:39 PT 20.3 SECONDS (9.7-12.2) H 03/14/18 13:12 INR 1.9 03/14/18 13:12 APTT 34 SECONDS (21-34) 03/14/18 13:12 - Constitutional Appears: No Acute Distress, Chronically Ill - Head Exam Head Exam: NORMAL INSPECTION, NORMOCEPHALIC - Eye Exam Eye Exam: Normal appearance, PERRL - ENT Exam ENT Exam: Mucous Membranes Moist, Normal Exam - Neck Exam Neck Exam: Full ROM, Normal Inspection - Respiratory Exam Respiratory Exam: Decreased Breath Sounds, NORMAL BREATHING PATTERN - GI/Abdominal Exam GI & Abdominal Exam: Distended, Soft - Extremities Exam Extremities Exam: Full ROM, Normal Inspection - Neurological Exam Neurological Exam: Alert, Awake - Psychiatric Exam Psychiatric exam: Normal Affect, Normal Mood - Skin Skin Exam: Dry, Intact Assessment and Plan (1) Alcohol abuse Status: Acute (2) Cirrhosis Status: Acute (3) Hyponatremia Status: Acute - Assessment and Plan (Free Text) Assessment: hyponatremia sec to liver dz/cirrhosis not a candidate for tolvaptan maintain fluid restriction poor prognosis
--- NOTE | 2018-03-21 13:20 | VASCLAB ---
Date of service: 03/20/2018 PROCEDURE: Lower Extremity Venous Duplex Exam. HISTORY: lower extremity swelling, r/o dvt PRIORS: None. TECHNIQUE: Bilateral common femoral, femoral, popliteal and posterior tibial, peroneal and great saphenous veins were evaluated. Flow was assessed with color Doppler, compressibility, assessment of phasic flow and augmentation response. Report prepared by Gustavo Valero, MARY, RVT FINDINGS: RIGHT: 1. Common Femoral Vein: 1.1. Compressibility - Fully compressible: Thrombus - None : Flow - Phasic: Augmentation -Normal: Reflux - None. 2. Femoral Vein: 2.1. Compressibility - Fully compressible: Thrombus - None : Flow - Phasic: Augmentation -Normal: Reflux - None. 3. Popliteal Vein: 3.1. Compressibility - Fully compressible: Thrombus - None : Flow - Phasic: Augmentation -Normal: Reflux - None. 4. Posterior Tibial Vein: 4.1. Compressibility - Fully compressible: Thrombus - None: Flow - Phasic: Augmentation -Normal: Reflux - None. 5. Peroneal Vein: 5.1. Compressibility - Fully compressible: Thrombus - None: Flow - Phasic: Augmentation -Normal: Reflux - None. 6. Great Saphenous Vein: 6.1. Compressibility - Fully compressible: Thrombus - None: Flow - Phasic: Augmentation - Normal: Reflux - None. LEFT: 1. Common Femoral Vein: 1.1. Compressibility - Fully compressible: Thrombus - None: Flow - Phasic: Augmentation -Normal: Reflux - None. 2. Femoral Vein: 2.1. Compressibility - Fully compressible: Thrombus - None: Flow - Phasic: Augmentation -Normal: Reflux - None. 3. Popliteal Vein: 3.1. Compressibility - Fully compressible: Thrombus - None : Flow - Phasic: Augmentation -Normal: Reflux - None. 4. Posterior Tibial Vein: 4.1. Compressibility - Fully compressible: Thrombus - None: Flow - Phasic: Augmentation -Normal: Reflux - None. 5. Peroneal Vein: 5.1. Compressibility - Fully compressible: Thrombus - None: Flow - Phasic: Augmentation -Normal: Reflux - None. 6. Great Saphenous Vein: 6.1. Compressibility - Fully compressible: Thrombus - None: Flow - Phasic: Augmentation - Normal: Reflux - None. OTHER FINDINGS: Right: None significant. Left: None significant. IMPRESSION: Right: No evidence of deep or superficial vein thrombosis of the right lower extremity. Normal valve function noted of the right side. Left: No evidence of deep or superficial vein thrombosis of the left lower extremity. Normal valve function noted of the left side.
--- NOTE | 2018-03-21 13:21 | VASCLAB ---
Date of service: 03/21/2018 PROCEDURE: Upper Extremity Venous Duplex Exam HISTORY: Elevated d-dimer, r/o DVT. PRIORS: 02/2018, normal. TECHNIQUE: Bilateral upper extremity, internal jugular, subclavian, axillary, brachial, ulnar, radial, basilic and upper cephalic veins were evaluated. Flow was assessed with color Doppler, compressibility, assessment of phasic flow and augmentation response. Report prepared by KORY Olvera FINDINGS: RIGHT: 1. Internal Jugular: 1.1. Compressibility - Fully compressible: Thrombus - None : Flow - Phasic: Augmentation -Normal: Reflux - None. 2. Subclavian: 2.1. Compressibility - Fully compressible: Thrombus - None : Flow - Phasic: Augmentation -Normal: Reflux - None. 3. Axillary: 3.1. Compressibility - Fully compressible: Thrombus - None : Flow - Phasic: Augmentation -Normal: Reflux - None. 4. Brachial: 4.1. Compressibility - Fully compressible: Thrombus - None: Flow - Phasic: Augmentation -Normal: Reflux - None. 5. Ulnar: 5.1. Compressibility - Fully compressible: Thrombus - None: Flow - Phasic: Augmentation -Normal: Reflux - None. 6. Radial: 6.1. Compressibility - Fully compressible: Thrombus - None: Flow - Phasic: Augmentation - Normal: Reflux - None. 7. Cephalic: 7.1. Compressibility - Fully compressible: Thrombus - None: Flow - Phasic: Augmentation -Normal: Reflux - None. 8. Basilic: 8.1. Compressibility - Fully compressible: Thrombus - None: Flow - Phasic: Augmentation -Normal: Reflux - None. LEFT: 1. Internal Jugular: 1.1. Compressibility - Fully compressible: Thrombus - None : Flow - Phasic: Augmentation -Normal: Reflux - None. 2. Subclavian: 2.1. Compressibility - Fully compressible: Thrombus - None : Flow - Phasic: Augmentation -Normal: Reflux - None. 3. Axillary: 3.1. Compressibility - Fully compressible: Thrombus - None : Flow - Phasic: Augmentation -Normal: Reflux - None. 4. Brachial: 4.1. Compressibility - Fully compressible: Thrombus - None: Flow - Phasic: Augmentation -Normal: Reflux - None. 5. Ulnar: 5.1. Compressibility - Fully compressible: Thrombus - None: Flow - Phasic: Augmentation -Normal: Reflux - None. 6. Radial: 6.1. Compressibility - Fully compressible: Thrombus - None: Flow - Phasic: Augmentation - Normal: Reflux - None. 7. Cephalic: Not visualized. 8. Basilic: 8.1. Compressibility - Fully compressible: Thrombus - None: Flow - Phasic: Augmentation -Normal: Reflux - None. OTHER FINDINGS: None. IMPRESSION: Right: No evidence of vein thrombosis of the right upper extremity with excellent venous flow. Normal valve function noted of the right side. Left: No evidence of vein thrombosis of the left upper extremity with excellent venous flow. Normal valve function noted of the left side.
--- NOTE | 2018-03-22 06:21 | CP.PCM.PN ---
Subjective - Date & Time of Evaluation Date of Evaluation: 03/22/18 Time of Evaluation: 07:15 - Subjective Subjective: PGY 1 Medicine Progress Note for Dr. Rossi. Patient seen and examined at bedside. No overnight events reported. Patient lying in bed in no acute distress. Patient denies any complaints. Patient denies chest pain, SOB, abdominal pain, hematuria, dysuria, headaches, vision changes. Patient states he is walking much better and his hand tremor is much improved. Objective - Vital Signs/Intake and Output Vital Signs (last 24 hours): Temp Pulse Resp BP Pulse Ox 97.8 F 77 20 116/65 98 03/21/18 23:35 03/21/18 23:35 03/21/18 23:35 03/21/18 23:35 03/21/18 23:35 Intake and Output: 03/21/18 03/22/18 18:59 06:59 Intake Total 700 Balance 700 - Medications Medications: Current Medications Docusate Sodium (Colace) 100 mg PO DAILY PRN PRN Reason: Constipation Folic Acid (Folic Acid) 1 mg PO DAILY [facility] Last Admin: 03/21/18 09:22 Dose: 1 mg Guaifenesin (Mucinex La) 600 mg PO BID [facility] Last Admin: 03/21/18 17:23 Dose: 600 mg Lactobacillus Acidophilus (Bacid Acidophilus) 1 cap PO BID [facility] Stop: 04/20/18 10:01 Last Admin: 03/21/18 17:21 Dose: 1 cap Lorazepam (Ativan) 1 mg IVP Q6H PRN PRN Reason: Seizure activity Metoprolol Tartrate (Lopressor) 12.5 mg PO BID [facility] Last Admin: 03/21/18 17:21 Dose: 12.5 mg Multivitamins/Vitamin C (Multi-Delyn Liquid) 5 ml PO DAILY [facility] Last Admin: 03/21/18 09:23 Dose: 5 ml Potassium Phos/Sodium Phos (Neutra-Phos) 1 pkt PO TID [facility] Stop: 03/23/18 10:01 Last Admin: 03/21/18 17:21 Dose: 1 pkt Sodium Chloride (Sodium Chloride Tab) 1 gm PO BID [facility] Last Admin: 03/21/18 17:21 Dose: 1 gm Thiamine HCl (Vitamin B1 Tab) 100 mg PO BID [facility] Last Admin: 03/21/18 17:21 Dose: 100 mg Vitamin A (Vitamin A & D Oint Ud Foilpak) 1 ea TOP BID [facility] Last Admin: 03/21/18 17:21 Dose: 1 ea - Labs Labs: 03/21/18 07:39 03/21/18 07:39 PT 20.3 SECONDS (9.7-12.2) H 03/14/18 13:12 INR 1.9 03/14/18 13:12 APTT 34 SECONDS (21-34) 03/14/18 13:12 - Constitutional Appears: Non-toxic, No Acute Distress - Eye Exam Eye Exam: Normal appearance - ENT Exam ENT Exam: Mucous Membranes Moist - Respiratory Exam Respiratory Exam: Clear to Ausculation Bilateral, NORMAL BREATHING PATTERN. absent: Rales, Rhonchi, Wheezes - Cardiovascular Exam Cardiovascular Exam: +S1, +S2. absent: Murmur - GI/Abdominal Exam GI & Abdominal Exam: Soft, Normal Bowel Sounds. absent: Rigid, Tenderness - Extremities Exam Extremities Exam: Full ROM, Normal Inspection. absent: Calf Tenderness, Pedal Edema - Back Exam Back Exam: absent: CVA tenderness (L), CVA tenderness (R) - Neurological Exam Neurological Exam: Alert, Awake, Oriented x3 - Psychiatric Exam Psychiatric exam: Normal Affect, Normal Mood - Skin Skin Exam: Dry, Intact, Normal Color, Warm Assessment and Plan - Assessment and Plan (Free Text) Assessment: 57 yr old male w/ PMhx of subdural hematoma, HTN, ETOH abuse, pneumonia: presents for unsteady gait Subdural Hematoma - CT head (03/14): Interval development of small hyperdensity within the posterior fossa close to the cerebellar vermis along the tentorium, consistent with acute subdural hematoma. Bilateral subdural collections appear hypodense consistent with chronic hematomas. Nonspecific white matter changes. - CT head (03/15): Stable small medial left tentorial subdural hematoma with no mass-effect related. No new interval intracranial hemorrhage. Stable bilateral subdural hygromas. Stable mild diffuse cerebral atrophy reiterated. Continued clinical and CT vigilance recommended. - F/u neurosurgery Dr. Wynn recs - no surgerical intervention warranted at this time - F/u neurology, Dr. Skelton recs - no further neurology recs at this time - signed off - CT head (03/22): Stable appearing small to medium-sized bilateral hypodense subdural collections right slightly larger than left. Moderate generalized volume loss as above. No new hemorrhages or hydrocephalus. Hyponatremia Electrolyte imbalance - Na+ stables in 124s - NaCl restarted 03/22 - Likely due to ETOH abuse - Fluid restrict to 1000ml/day - F/u nephrology, Dr. Taylor recs - Urine osmololity, serium uric acid - Give 5% saline 300 ml over 6hrs IF patient becomes altered or Na+ drops below 122 - tovalptan x 1 dose if Na <120 - due to persistant hyponatremia, NaCl resumed - Mg in 1.5 - replenish as necessary -Phos in low 2s - neutrophos TID on 03/20 Pneumonia Fevers Acute respiratory failure - CXR (03/14): Patchy right lower lobe consolidation. Mild pulmonary venous congestion. - continue outpatient therapy Augmentin 875/125mg BID for 7 days - Fever spikes on 03/19 @3pm Tmax 100.7, will continue to trend - CXR (03/19): persistent patch increased consolidative changes at RLL zone concerning for underlying infiltrate. Posttreatment interval following-up is recommended to ensure resolution & exclude underlying lesion. Diffuse increased interstitial lung markings bilaterally. Biapical pleural thickening with upper lobe granulomatous changes. - Blood cultures 03/19 - negative X 72 hrs - urine cultures negative - Afebril 72 hrs Lower Leg Edema - PAD vs DVT vs other cases - D-dimer 4000s - CTA (03/22): no PE, moderate pleural effusion, pulmonary edema/CHF, hilar adenopathy- likely reactive - LE & UE duplex B/L - negative - Compressive stockings - Vit A& D for xeroderma Essential Tremor - likely 2/2 to ETOH abuse - per patient, it has been there for several years - Per neurology, not likely neurological cause - 1 X 0.5mg ativan given to assess reduction of tremor - tremor still persistent Hypertension - resume home medication metoprolol tartrate 12.5mg PO BID Unsteady gait - patient currently has baseline tremor - patient unable to walk without assistance - physical therapy evaluation - on 03/21 - patient is stable for D/C with rolling walker - Fall precautions - Bedside commode Alcohol abuse Cirrhosis - ETOH <10 - Fall precautions - Seizure precautions - Has not received anticoagulation secondary to subdural hematoma - patient is cirrhotic per US - Ativan 1mg IVP PRN - Thaimine 100 mg PO BID - Folic acid 1mg PO daily - Multivitamin 1 tab PO daily Elevated Liver Function Tests - likely secondary to patients ETOH history - From previous admission labs - Abdominal U/S 02/27/18: nodular hepatic contour consistent with cirrhosis, echogenic liver may be seen in the setting of hepatic parynchymal disease or fatty infiltration, small ascites, gallstones - Hepatitis Panel 02/27/18: negative - HIV 4th Generation 02/27/18: negative Anemia likely secondary to history alcohol abuse - Monitor HgB/Hct - From previous admission labs: - Vitamin B12 normal at 856 - Folate normal at 3.3 - Iron Studies: Total Iron at 117, % Saturation 55, Ferritin 689, TIBC low at 212 - Patient is Cirrhotic per Ab US Prophylaxis - DVT: SCDs (venous dopplers from previous admission negative), chemical contraindicated 2/2 to subdural hematoma - PT evaluation - D/C w/ walker - D/c telemetry Patient verbally consented and requested that I speak with his daughters to provide them with an update on his condition. Spoke with Peri @ [phone] & Catherine @ [phone] on 03/17. Both daughters understood the patients condition. Additionally, both daughters were informed that his medicaid will be expiring on 03/17/18. Both daughters stated that they will discuss whether the patient will be able to stay with them upon discharge. Spoke with Peri on 03/21, daughter has re-submitted medicaid paperwork on 03/20. She stated Catherine might be able to take father to her residence after D/C; however, made multiple attempts to reach Catherine, but was unable to get in contact. 03/22, social work administrator spoke with Catherine and stated she would not be able to take care of her father. Patient also has a sister, Radha Giraldo, that can be reacehd at [phone] or [phone]. Patient states he does not want to go their home on D/C. Patient states he can be discharged [address], [place]. PT recs safe D/C with rolling walker; however, patient is homeless and would not be able to go to detention w walker.
[2018-03-22 07:50] LABS: BASO # 0.2 K/uL (0.0-0.2); BASO % 2.2 % (0.0-2.0); EOS # 0.4 K/uL (0.0-0.7); EOS % 5.3 % (0.0-4.0); HEMOGLOBIN 8.3 g/dL (12.0-18.0); LYMPH # 3.7 K/uL (1.0-4.3); LYMPH % 49.5 % (20.0-40.0); MEAN CORPUSCULAR HEMOGLOBIN 33.5 pg (27.0-31.0); MEAN CORPUSCULAR HGB CONC 33.5 g/dL (33.0-37.0); MEAN PLATELET VOLUME 10.2 fL (7.2-11.7); MONO % 12.9 % (0.0-10.0); NEUT # 2.2 K/uL (1.8-7.0); NEUT % 30.1 % (50.0-75.0); NRBC % 0.1 % (0.0-2.0); RBC 2.48 Mil/uL (4.40-5.90); RED CELL DISTRIBUTION WIDTH 17.3 % (11.5-14.5); WHITE BLOOD COUNT 7.4 K/uL (4.8-10.8)
[2018-03-22 08:05] LABS: ALB/GLOB RATIO 0.6 (1.0-2.1); ALBUMIN 2.3 g/dL (3.5-5.0); ALT/SGPT 45 U/L (21-72); AST/SGOT 53 U/L (17-59); BLOOD UREA NITROGEN 7 mg/dL (9-20); CALCIUM 7.4 mg/dl (8.6-10.4); GFR NON-AFRICAN AMERICAN > 60
--- NOTE | 2018-03-22 09:32 | CT ---
Date of service: 03/22/2018 PROCEDURE: CT HEAD WITHOUT CONTRAST. HISTORY: Subdural hematoma. COMPARISON: Comparison made with prior CT scan brain 03/15/2018.. TECHNIQUE: Axial computed tomography images were obtained through the head/brain without intravenous contrast. Radiation dose: Total exam DLP = 1001.38 mGy-cm. This CT exam was performed using one or more of the following dose reduction techniques: Automated exposure control, adjustment of the mA and/or kV according to patient size, and/or use of iterative reconstruction technique. FINDINGS: HEMORRHAGE: There are small to medium-sized bilateral chronic appearing hypodense subdural collections right slightly larger than left. These collections result in mild to moderate compressive effects on both cerebral hemispheres which are nearly offsetting with only minimal right to left midline shift No new hemorrhages are seen. BRAIN: Moderate supra and infratentorial generalized volume loss not withstanding the aforementioned mass-effect. VENTRICLES: No obstructive hydrocephalus. CALVARIUM: Unremarkable. PARANASAL SINUSES: Unremarkable as visualized. No significant inflammatory changes. MASTOID AIR CELLS: Unremarkable as visualized. No inflammatory changes. OTHER FINDINGS: None. IMPRESSION: Stable appearing small to medium-sized bilateral hypodense subdural collections right slightly larger than left. Moderate generalized volume loss as above. No new hemorrhages or hydrocephalus.
[2018-03-22] MEDS: Potassium & Sodium Phosphate PO SCH ×3 (09:56→17:31)
[2018-03-22] MEDS: guaiFENesin 600 mg ER Tab PO SCH ×2 (09:56→17:31)
[2018-03-22] MEDS: Lactobacillus Acidophilus 500 MU Cap PO SCH ×2 (09:56→17:31)
[2018-03-22] MEDS: Vitamins A & D Oint UD Foilpak TOP SCH ×2 (09:56→17:31)
[2018-03-22] MEDS: Magnesium Sulfate 1 gm in D5W 1 GM/100 ML BAG IVPB SCH ×2 (09:56→09:57)
[2018-03-22] MEDS: Multiple Vitamins Oral Solution PO SCH (09:56)
--- NOTE | 2018-03-22 13:19 | CP.PCM.PN ---
Subjective - Date & Time of Evaluation Date of Evaluation: 03/22/18 Time of Evaluation: 13:16 - Subjective Subjective: offers no acute complaints chart reviewed no acute events labs noted cannot obtain ROS due to clinical condition Objective - Vital Signs/Intake and Output Vital Signs (last 24 hours): Temp Pulse Resp BP Pulse Ox 97.6 F 77 20 117/61 98 03/22/18 07:39 03/22/18 07:39 03/22/18 07:39 03/22/18 07:39 03/22/18 07:39 - Medications Medications: Current Medications Docusate Sodium (Colace) 100 mg PO DAILY PRN PRN Reason: Constipation Folic Acid (Folic Acid) 1 mg PO DAILY [facility] Last Admin: 03/22/18 09:56 Dose: 1 mg Guaifenesin (Mucinex La) 600 mg PO BID [facility] Last Admin: 03/22/18 09:56 Dose: 600 mg Lactobacillus Acidophilus (Bacid Acidophilus) 1 cap PO BID [facility] Stop: 04/20/18 10:01 Last Admin: 03/22/18 09:56 Dose: 1 cap Lorazepam (Ativan) 1 mg IVP Q6H PRN PRN Reason: Seizure activity Metoprolol Tartrate (Lopressor) 12.5 mg PO BID [facility] Last Admin: 03/22/18 09:56 Dose: 12.5 mg Multivitamins/Vitamin C (Multi-Delyn Liquid) 5 ml PO DAILY [facility] Last Admin: 03/22/18 09:56 Dose: 5 ml Potassium Phos/Sodium Phos (Neutra-Phos) 1 pkt PO TID [facility] Stop: 03/23/18 10:01 Last Admin: 03/22/18 09:56 Dose: 1 pkt Sodium Chloride (Sodium Chloride Tab) 1 gm PO BID [facility] Last Admin: 03/22/18 09:56 Dose: 1 gm Thiamine HCl (Vitamin B1 Tab) 100 mg PO BID [facility] Last Admin: 03/22/18 09:56 Dose: 100 mg Vitamin A (Vitamin A & D Oint Ud Foilpak) 1 ea TOP BID [facility] Last Admin: 03/22/18 09:56 Dose: 1 ea - Labs Labs: 03/22/18 07:41 03/22/18 07:41 PT 20.3 SECONDS (9.7-12.2) H 03/14/18 13:12 INR 1.9 03/14/18 13:12 APTT 34 SECONDS (21-34) 03/14/18 13:12 - Constitutional Appears: No Acute Distress, Confused, Chronically Ill - Head Exam Head Exam: ATRAUMATIC, NORMAL INSPECTION - Eye Exam Eye Exam: EOMI, Normal appearance - ENT Exam ENT Exam: Mucous Membranes Moist - Neck Exam Neck Exam: Full ROM. absent: Lymphadenopathy - Respiratory Exam Respiratory Exam: Decreased Breath Sounds. absent: Respiratory Distress - Cardiovascular Exam Cardiovascular Exam: REGULAR RHYTHM. absent: Rubs - GI/Abdominal Exam GI & Abdominal Exam: Distended. absent: Guarding, Tenderness - Extremities Exam Extremities Exam: absent: Pedal Edema Assessment and Plan - Assessment and Plan (Free Text) Assessment: chronic asx hyponatremia due to liver disease ETOH abuse falls pneumonia continue fluid restriction resume loop diuretic
[2018-03-22] MEDS: Simethicone 80 mg Chewtab PO SCH ×2 (17:31→21:32)
[2018-03-23 07:28] LABS: BASO # 0.1 K/uL (0.0-0.2); BASO % 1.8 % (0.0-2.0); EOS # 0.4 K/uL (0.0-0.7); EOS % 5.8 % (0.0-4.0); HEMOGLOBIN 8.3 g/dL (12.0-18.0); LYMPH # 3.1 K/uL (1.0-4.3); LYMPH % 44.8 % (20.0-40.0); MEAN CELL VOLUME 100.9 fL (80.0-94.0); MEAN CORPUSCULAR HEMOGLOBIN 34.2 pg (27.0-31.0); MEAN CORPUSCULAR HGB CONC 33.9 g/dL (33.0-37.0); MEAN PLATELET VOLUME 9.3 fL (7.2-11.7); MONO # 0.9 K/uL (0.0-0.8); MONO % 12.7 % (0.0-10.0); NEUT # 2.4 K/uL (1.8-7.0); NEUT % 34.9 % (50.0-75.0); NRBC % 0.1 % (0.0-2.0); RBC 2.43 Mil/uL (4.40-5.90); RED CELL DISTRIBUTION WIDTH 17.1 % (11.5-14.5); WHITE BLOOD COUNT 6.8 K/uL (4.8-10.8)
[2018-03-23 08:04] LABS: ALB/GLOB RATIO 0.6 (1.0-2.1); ALBUMIN 2.2 g/dL (3.5-5.0); ALT/SGPT 41 U/L (21-72); AST/SGOT 50 U/L (17-59); BLOOD UREA NITROGEN 7 mg/dL (9-20); CALCIUM 7.5 mg/dl (8.6-10.4); GFR NON-AFRICAN AMERICAN > 60
[2018-03-23] MEDS: Potassium & Sodium Phosphate PO SCH (09:43)
[2018-03-23] MEDS: guaiFENesin 600 mg ER Tab PO SCH ×2 (09:43→17:48)
[2018-03-23] MEDS: Simethicone 80 mg Chewtab PO SCH ×4 (09:44→22:26)
[2018-03-23] MEDS: Lactobacillus Acidophilus 500 MU Cap PO SCH ×2 (09:44→17:47)
[2018-03-23] MEDS: Vitamins A & D Oint UD Foilpak TOP SCH ×2 (09:44→17:48)
[2018-03-23] MEDS: Multiple Vitamins Oral Solution PO SCH (09:44)
--- NOTE | 2018-03-23 09:54 | CP.PCM.PN ---
Subjective - Date & Time of Evaluation Date of Evaluation: 03/23/18 Time of Evaluation: 09:52 - Subjective Subjective: more alert po lasix added; has been on nacl tabs urine na<5- consistent with liver failure repeat na 127- stable Objective - Vital Signs/Intake and Output Vital Signs (last 24 hours): Temp Pulse Resp BP Pulse Ox 98.2 F 74 20 118/60 99 03/23/18 08:00 03/23/18 08:00 03/23/18 08:00 03/23/18 09:44 03/23/18 08:00 - Medications Medications: Current Medications Docusate Sodium (Colace) 100 mg PO DAILY PRN PRN Reason: Constipation Folic Acid (Folic Acid) 1 mg PO DAILY [facility] Last Admin: 03/23/18 09:44 Dose: 1 mg Furosemide (Lasix) 20 mg PO DAILY [facility] Last Admin: 03/23/18 09:44 Dose: 20 mg Guaifenesin (Mucinex La) 600 mg PO BID [facility] Last Admin: 03/23/18 09:43 Dose: 600 mg Lactobacillus Acidophilus (Bacid Acidophilus) 1 cap PO BID [facility] Stop: 04/20/18 10:01 Last Admin: 03/23/18 09:44 Dose: 1 cap Lorazepam (Ativan) 1 mg IVP Q6H PRN PRN Reason: Seizure activity Metoprolol Tartrate (Lopressor) 12.5 mg PO BID [facility] Last Admin: 03/23/18 09:44 Dose: 12.5 mg Multivitamins/Vitamin C (Multi-Delyn Liquid) 5 ml PO DAILY [facility] Last Admin: 03/23/18 09:44 Dose: 5 ml Potassium Phos/Sodium Phos (Neutra-Phos) 1 pkt PO TID [facility] Stop: 03/23/18 10:01 Last Admin: 03/23/18 09:43 Dose: 1 pkt Simethicone (Mylicon Chew Tab) 80 mg PO QID [facility] Last Admin: 03/23/18 09:44 Dose: 80 mg Sodium Chloride (Sodium Chloride Tab) 1 gm PO BID [facility] Last Admin: 03/23/18 09:43 Dose: 1 gm Thiamine HCl (Vitamin B1 Tab) 100 mg PO BID [facility] Last Admin: 03/23/18 09:44 Dose: 100 mg Vitamin A (Vitamin A & D Oint Ud Foilpak) 1 ea TOP BID [facility] Last Admin: 03/23/18 09:44 Dose: 1 ea - Labs Labs: 03/23/18 07:22 03/23/18 07:22 PT 20.3 SECONDS (9.7-12.2) H 03/14/18 13:12 INR 1.9 03/14/18 13:12 APTT 34 SECONDS (21-34) 03/14/18 13:12 - Constitutional Appears: No Acute Distress, Chronically Ill - Head Exam Head Exam: ATRAUMATIC, NORMAL INSPECTION - Eye Exam Eye Exam: EOMI, Normal appearance - Neck Exam Neck Exam: Normal Inspection. absent: Tenderness - Respiratory Exam Respiratory Exam: Clear to Ausculation Bilateral, NORMAL BREATHING PATTERN - Cardiovascular Exam Cardiovascular Exam: REGULAR RHYTHM, +S1 - GI/Abdominal Exam GI & Abdominal Exam: Soft. absent: Tenderness - Extremities Exam Extremities Exam: Normal Inspection. absent: Tenderness - Neurological Exam Neurological Exam: Awake, CN II-XII Intact - Skin Skin Exam: Dry, Warm Assessment and Plan (1) ETOH abuse Status: Acute (2) Cirrhosis Status: Acute (3) Hyponatremia Status: Acute - Assessment and Plan (Free Text) Plan: agree with present meds If Na increases can stop nacl tabs
--- NOTE | 2018-03-23 13:22 | CP.PCM.PN ---
Subjective - Date & Time of Evaluation Date of Evaluation: 03/23/18 Time of Evaluation: 13:19 - Subjective Subjective: PGY-1 Medicine Progress Note for Dr. Rossi's service Patient seen and examined at bedside. Patient offers no acute complaints. Patient has different opinions of where he wants to go upon discharge. Daughters are not currently willing to take father as per social work. Patient denies fevers, chills, chest pain, sob, n/v, constipation or diarrhea, and dysuria. Objective - Vital Signs/Intake and Output Vital Signs (last 24 hours): Temp Pulse Resp BP Pulse Ox 98.2 F 74 20 118/60 99 03/23/18 08:00 03/23/18 08:00 03/23/18 08:00 03/23/18 09:44 03/23/18 08:00 - Medications Medications: Current Medications Docusate Sodium (Colace) 100 mg PO DAILY PRN PRN Reason: Constipation Folic Acid (Folic Acid) 1 mg PO DAILY [facility] Last Admin: 03/23/18 09:44 Dose: 1 mg Furosemide (Lasix) 20 mg PO DAILY [facility] Last Admin: 03/23/18 09:44 Dose: 20 mg Guaifenesin (Mucinex La) 600 mg PO BID [facility] Last Admin: 03/23/18 09:43 Dose: 600 mg Lactobacillus Acidophilus (Bacid Acidophilus) 1 cap PO BID [facility] Stop: 04/20/18 10:01 Last Admin: 03/23/18 09:44 Dose: 1 cap Lorazepam (Ativan) 1 mg IVP Q6H PRN PRN Reason: Seizure activity Metoprolol Tartrate (Lopressor) 12.5 mg PO BID [facility] Last Admin: 03/23/18 09:44 Dose: 12.5 mg Multivitamins/Vitamin C (Multi-Delyn Liquid) 5 ml PO DAILY [facility] Last Admin: 03/23/18 09:44 Dose: 5 ml Simethicone (Mylicon Chew Tab) 80 mg PO QID [facility] Last Admin: 03/23/18 09:44 Dose: 80 mg Sodium Chloride (Sodium Chloride Tab) 1 gm PO BID [facility] Last Admin: 03/23/18 09:43 Dose: 1 gm Thiamine HCl (Vitamin B1 Tab) 100 mg PO BID [facility] Last Admin: 03/23/18 09:44 Dose: 100 mg Vitamin A (Vitamin A & D Oint Ud Foilpak) 1 ea TOP BID [facility] Last Admin: 03/23/18 09:44 Dose: 1 ea - Labs Labs: 03/23/18 07:22 03/23/18 07:22 PT 20.3 SECONDS (9.7-12.2) H 03/14/18 13:12 INR 1.9 03/14/18 13:12 APTT 34 SECONDS (21-34) 03/14/18 13:12 - Constitutional Appears: Non-toxic, No Acute Distress - Head Exam Head Exam: NORMAL INSPECTION, NORMOCEPHALIC - Eye Exam Eye Exam: EOMI, Normal appearance. absent: Nystagmus, Scleral icterus - Respiratory Exam Respiratory Exam: Clear to Ausculation Bilateral, NORMAL BREATHING PATTERN. absent: Rales, Rhonchi, Wheezes - Cardiovascular Exam Cardiovascular Exam: REGULAR RHYTHM, +S1, +S2 - GI/Abdominal Exam GI & Abdominal Exam: Soft, Normal Bowel Sounds. absent: Distended, Firm, Guarding, Rigid, Tenderness - Extremities Exam Extremities Exam: Normal Inspection. absent: Calf Tenderness, Pedal Edema - Back Exam Back Exam: NORMAL INSPECTION. absent: CVA tenderness (L), CVA tenderness (R) - Neurological Exam Neurological Exam: Alert, Awake, Oriented x3 - Psychiatric Exam Psychiatric exam: Normal Affect, Normal Mood - Skin Skin Exam: Intact, Normal Color Assessment and Plan - Assessment and Plan (Free Text) Assessment: 57 yr old male w/ PMhx of subdural hematoma, HTN, ETOH abuse, pneumonia: presents for unsteady gait Plan: Subdural Hematoma CT head (03/14): Interval development of small hyperdensity within the posterior fossa close to the cerebellar vermis along the tentorium, consistent with acute subdural hematoma. Bilateral subdural collections appear hypodense consistent with chronic hematomas. Nonspecific white matter changes. CT head (03/15): Stable small medial left tentorial subdural hematoma with no mass-effect related. No new interval intracranial hemorrhage. Stable bilateral subdural hygromas. Stable mild diffuse cerebral atrophy reiterated. Continued clinical and CT vigilance recommended. Neurosurgery Dr. Wynn- no surgical intervention warranted at this time Neurology Dr. Skelton- no further neurology recs at this time, signed off CT head (03/22): Stable appearing small to medium-sized bilateral hypodense subdural collections right slightly larger than left. Moderate generalized volume loss as above. No new hemorrhages or hydrocephalus. Patient asymptomatic and no neurologic complaints Electrolyte Disturbances Likely due to ETOH abuse Fluid restrict to 1000ml/day Nephrology, Dr. Taylor reccs: Urine osmololity, serium uric acid; Give 5% saline 300 ml over 6hrs IF patient becomes altered or Na+ drops below 122; tovalptan x 1 dose if Na <120 ; due to persistant hyponatremia; Fluid restriction 1200 ml Magnesium repleted with Mag Oxide Salt tabs 1gm po bid [facility] Acute respiratory failure /2 PNA CXR (03/14): Patchy right lower lobe consolidation. Mild pulmonary venous congestion. continue outpatient therapy Augmentin 875/125mg BID for 7 days Fever spikes on 03/19 @3pm Tmax 100.7, will continue to trend CXR (03/19): persistent patch increased consolidative changes at RLL zone concerning for underlying infiltrate. Posttreatment interval following-up is recommended to ensure resolution & exclude underlying lesion. Diffuse increased interstitial lung markings bilaterally. Biapical pleural thickening with upper lobe granulomatous changes. Blood cultures 03/19 - negative X 72 hrs urine cultures negative Afebrile 72 hrs Lower Leg Edema PAD vs DVT vs other cases D-dimer 4000s CTA (03/22): no PE, moderate pleural effusion, pulmonary edema/CHF, hilar adenopathy- likely reactive LE & UE duplex B/L - negative Compressive stockings Vit A& D for xeroderma Essential Tremor likely 2/2 to ETOH abuse Per patient, it has been there for several years Per neurology, not likely neurological cause 1 X 0.5mg ativan given to assess reduction of tremor tremor still persistent Hypertension Metoprolol tartrate 12.5mg PO BID Lasix 20mg po daily Unsteady gait patient currently has baseline tremor patient unable to walk without assistance physical therapy evaluation - on 03/21 - patient is stable for D/C with rolling walker Fall precautions Bedside commode Cirrhosis 2/2 to alcohol abuse with elevated LFTs Abdominal U/S 02/27/18: nodular hepatic contour consistent with cirrhosis, echogenic liver may be seen in the setting of hepatic parynchymal disease or fatty infiltration, small ascites, gallstones Hepatitis Panel 02/27/18: negative HIV 4th Generation 02/27/18: negative Fall precautions; Seizure precautions Has not received anticoagulation secondary to subdural hematoma Ativan 1mg IVP PRN Thaimine 100 mg PO BID Folic acid 1mg PO daily Multivitamin 1 tab PO daily Anemia likely secondary to history alcohol abuse MCV>100 VSS; Repeat CBC in AM Prophylaxis DVT: SCDs (venous dopplers from previous admission negative), chemical contraindicated 2/2 to subdural hematoma GI: Lactobacillus 1 cap po bid chel PT evaluation - D/C w/ walker Patient verbally consented and requested that I speak with his daughters to p rovide them with an update on his condition. Spoke with Peri @ [phone] & Catherine @ [phone] on 03/17. Both daughters understood the patients condition. Additionally, both daughters were informed that his medicaid will be expiring on 03/17/18. Both daughters stated that they will discuss whether the patient will be able to stay with them upon discharge. Spoke with Peri on 03/21, daughter has re-submitted medicaid paperwork on 03/20. She stated Catherine might be able to take father to her residence after D/C; however, made multiple attempts to reach Catherine, but was unable to get in contact. 03/22, social work program coordinator spoke with Catherine and stated she would not be able to take care of her father. Patient also has a sister, Radha Giraldo, that can be reached at [phone] or [phone]. Patient states he does not want to go their home on D/C. Patient states he can be discharged [address] [place] [address]. PT recs safe D/C with rolling walker; however, patient is homeless and would not be able to go to intermediate w walker. PGY-1 [facility] d/w Dr. Rossi
[2018-03-23] MEDS ORDERED: Magnesium Oxide 400 mg Tab UD PO ONE (14:30)
--- NOTE | 2018-03-24 07:04 | CP.PCM.PN ---
Subjective - Date & Time of Evaluation Date of Evaluation: 03/24/18 Time of Evaluation: 07:50 - Subjective Subjective: PGY 1 Medicine Progress Note for Hospitalist Dr. Rossi. Patient seen and examined at bedside. No overnight events reported. Pt started on lasix on 03/23 for hyponatremia. Pt offers not complaints. States he is able to walk more, denies chest pain, SOB, abdominal pain, N/V, cough. He states his hand tremor is much improved. Pt states he is likely going to leave later this afternoon or go tomorrow morning AMA. Objective - Vital Signs/Intake and Output Vital Signs (last 24 hours): Temp Pulse Resp BP Pulse Ox 98.2 F 72 20 111/83 98 03/24/18 04:30 03/24/18 04:30 03/24/18 04:30 03/24/18 04:30 03/24/18 04:30 Intake and Output: 03/24/18 03/24/18 06:59 18:59 Intake Total 500 Balance 500 - Medications Medications: Current Medications Docusate Sodium (Colace) 100 mg PO DAILY PRN PRN Reason: Constipation Folic Acid (Folic Acid) 1 mg PO DAILY [facility] Last Admin: 03/23/18 09:44 Dose: 1 mg Furosemide (Lasix) 20 mg PO DAILY [facility] Last Admin: 03/23/18 09:44 Dose: 20 mg Guaifenesin (Mucinex La) 600 mg PO BID [facility] Last Admin: 03/23/18 17:48 Dose: 600 mg Lactobacillus Acidophilus (Bacid Acidophilus) 1 cap PO BID [facility] Stop: 04/20/18 10:01 Last Admin: 03/23/18 17:47 Dose: 1 cap Lorazepam (Ativan) 1 mg IVP Q6H PRN PRN Reason: Seizure activity Metoprolol Tartrate (Lopressor) 12.5 mg PO BID [facility] Last Admin: 03/23/18 17:47 Dose: 12.5 mg Multivitamins/Vitamin C (Multi-Delyn Liquid) 5 ml PO DAILY [facility] Last Admin: 03/23/18 09:44 Dose: 5 ml Simethicone (Mylicon Chew Tab) 80 mg PO QID [facility] Last Admin: 03/23/18 22:26 Dose: 80 mg Sodium Chloride (Sodium Chloride Tab) 1 gm PO BID [facility] Last Admin: 03/23/18 17:47 Dose: 1 gm Thiamine HCl (Vitamin B1 Tab) 100 mg PO BID [facility] Last Admin: 03/23/18 17:48 Dose: 100 mg Vitamin A (Vitamin A & D Oint Ud Foilpak) 1 ea TOP BID [facility] Last Admin: 03/23/18 17:48 Dose: 1 ea - Labs Labs: 03/23/18 07:22 03/23/18 07:22 PT 20.3 SECONDS (9.7-12.2) H 03/14/18 13:12 INR 1.9 03/14/18 13:12 APTT 34 SECONDS (21-34) 03/14/18 13:12 - Constitutional Appears: Non-toxic, No Acute Distress - Head Exam Head Exam: NORMAL INSPECTION - Eye Exam Eye Exam: Normal appearance - ENT Exam ENT Exam: Mucous Membranes Moist - Respiratory Exam Respiratory Exam: Clear to Ausculation Bilateral, NORMAL BREATHING PATTERN. absent: Rales, Rhonchi, Wheezes - Cardiovascular Exam Cardiovascular Exam: +S1, +S2 - GI/Abdominal Exam GI & Abdominal Exam: Soft, Normal Bowel Sounds - Extremities Exam Extremities Exam: Full ROM, Normal Inspection. absent: Calf Tenderness, Pedal Edema - Back Exam Back Exam: CVA tenderness (L), CVA tenderness (R) - Neurological Exam Neurological Exam: Alert, Awake, Oriented x3 - Psychiatric Exam Psychiatric exam: Normal Affect, Normal Mood - Skin Skin Exam: Dry, Intact, Normal Color, Warm Assessment and Plan - Assessment and Plan (Free Text) Assessment: 57 yr old homeless male w/ PMhx of subdural hematoma, HTN, ETOH abuse, pneumonia: presents for unsteady gait and new subdural hematoma. Pt had previous stable pneumonia, hyponatrema, & subdural on previous admission and was recommended to TCU for unsteady gait; however he signed out AMA on 03/13, returning to ED 03/14 new subdural hematoma, unsteady gait, hyponatremia. Pt had lapse in medicaid on 03/17 disqualifiying him for TCU. Currently pt refuses to be D/c'ed to families home and is not a candidate for nursing home as he is required to have a rolling walker: Subdural Hematoma - CT head (03/14): Interval development of small hyperdensity within the posterior fossa close to the cerebellar vermis along the tentorium, consistent with acute subdural hematoma. Bilateral subdural collections appear hypodense consistent with chronic hematomas. Nonspecific white matter changes. - CT head (03/15): Stable small medial left tentorial subdural hematoma with no mass-effect related. No new interval intracranial hemorrhage. Stable bilateral subdural hygromas. Stable mild diffuse cerebral atrophy reiterated. Continued clinical and CT vigilance recommended. - CT head (03/22): Stable appearing small to medium-sized bilateral hypodense subdural collections right slightly larger than left. Moderate generalized volume loss as above. No new hemorrhages or hydrocephalus. - no further management per neurosurgery & neurology - pt remains A&Ox3, asymptomatic, continue to monitor Hyponatremia Electrolyte imbalance - Na+ stable in mid 120s - Likely due to ETOH abuse - Fluid restrict to 1000ml/day - F/u nephrology, Dr. Taylor recs - Urine osmololity, serium uric acid - Give 5% saline 300 ml over 6hrs IF patient becomes altered or Na+ drops below 122 - tovalptan x 1 dose if Na <120 - due to persistant hyponatremia, NaCl resumed 03/22; lasix 03/23 - Mg in 1.5 - replenish as necessary -Phos in low 2s - neutrophos TID on 03/20 Lower Leg Edema - PAD vs DVT vs other cases - D-dimer 4000s - CTA (03/22): no PE, moderate pleural effusion, pulmonary edema/CHF, hilar adenopathy- likely reactive - LE & UE duplex B/L - negative - Compressive stockings - Vit A& D for xeroderma Essential Tremor Chronic - likely 2/2 to ETOH abuse - Per neurology, not likely neurological cause - 1 X 0.5mg ativan given to assess reduction of tremor - metoprolol 12.5 mg BID - tremor still present but improved Hypertension - resume home medication metoprolol tartrate 12.5mg PO BID Unsteady gait - patient currently has baseline tremor - patient unable to walk without assistance - physical therapy evaluation - on 03/21 - patient is stable for D/C with rolling walker - Fall precautions - Bedside commode Alcohol abuse Cirrhosis - ETOH <10 - Fall precautions - Seizure precautions - Has not received anticoagulation secondary to subdural hematoma - patient is cirrhotic per US - Ativan 1mg IVP PRN - Thaimine 100 mg PO BID - Folic acid 1mg PO daily - Multivitamin 1 tab PO daily Elevated Liver Function Tests - likely secondary to patients ETOH history - From previous admission labs - Abdominal U/S 02/27/18: nodular hepatic contour consistent with cirrhosis, echogenic liver may be seen in the setting of hepatic parynchymal disease or fatty infiltration, small ascites, gallstones - Hepatitis Panel 02/27/18: negative - HIV 4th Generation 02/27/18: negative Anemia likely secondary to history alcohol abuse - Monitor HgB/Hct - From previous admission labs: - Vitamin B12 normal at 856 - Folate normal at 3.3 - Iron Studies: Total Iron at 117, % Saturation 55, Ferritin 689, TIBC low at 212 - Patient is Cirrhotic per Ab US Pneumonia Fevers Acute respiratory failure Resolved - Fever spikes on 03/19 @3pm Tmax 100.7, afebrile > 72 hrs - CXR (03/14): Patchy right lower lobe consolidation. Mild pulmonary venous congestion. - CXR (03/19): persistent patch increased consolidative changes at RLL zone concerning for underlying infiltrate. Posttreatment interval following-up is recommended to ensure resolution & exclude underlying lesion. Diffuse increased interstitial lung markings bilaterally. Biapical pleural thickening with upper lobe granulomatous changes. - Blood cultures 03/19 - negative X 72 hrs - urine cultures negative - Afebril 72 hrs - outpatient therapy Augmentin 875/125mg BID for 7 days completed Prophylaxis - DVT: SCDs (venous dopplers from previous admission negative), chemical contraindicated 05/20 to subdural hematoma - PT evaluation - D/C w/ walker - D/c telemetry Patient verbally consented and requested that I speak with his daughters to p rovide them with an update on his condition. Spoke with Peri @ [phone] & Catherine @ [phone] on 03/17. Both daughters understood the patients condition. Additionally, both daughters were informed that his medicaid will be expiring on 03/17/18. Both daughters stated that they will discuss whether the patient will be able to stay with them upon discharge. Spoke with Peri on 03/21, daughter has re-submitted medicaid paperwork on 03/20. She stated Catherine might be able to take father to her residence after D/C; however, made multiple attempts to reach Catherine, but was unable to get in contact. 03/22, sheet metal worker maintenance spoke with Catherine and stated she would not be able to take care of her father. Patient also has a sister, Radha Giraldo, that can be reacehd at [phone] or [phone]. Patient states he does not want to go their home on D/C. Patient states he can be discharged [address] [place] [address]. PT recs safe D/C with rolling walker; however, patient is homeless and would not be able to go to nursing home w walker. Spoke with patient extensively of the dangers of signing out AMA, patient understood but still stated that he will sign out AMA latest tomorrow morning. He states he will attempt to quit ETOH. Patient already has medication bedside from previous admission. Will provide prescription for new medications: lasix 40 and sodium chloride tablets.
[2018-03-24 07:23] LABS: BASO % 0.6 % (0.0-2.0); EOS # 0.4 K/uL (0.0-0.7); EOS % 4.8 % (0.0-4.0); HEMOGLOBIN 8.7 g/dL (12.0-18.0); LYMPH % 51.4 % (20.0-40.0); MEAN CELL VOLUME 100.2 fL (80.0-94.0); MEAN CORPUSCULAR HEMOGLOBIN 34.2 pg (27.0-31.0); MEAN CORPUSCULAR HGB CONC 34.2 g/dL (33.0-37.0); MEAN PLATELET VOLUME 9.8 fL (7.2-11.7); MONO # 0.9 K/uL (0.0-0.8); MONO % 11.1 % (0.0-10.0); NEUT # 2.5 K/uL (1.8-7.0); NEUT % 32.1 % (50.0-75.0); NRBC % 0.2 % (0.0-2.0); RBC 2.53 Mil/uL (4.40-5.90); RED CELL DISTRIBUTION WIDTH 16.8 % (11.5-14.5); WHITE BLOOD COUNT 7.8 K/uL (4.8-10.8)
[2018-03-24 08:08] LABS: ALB/GLOB RATIO 0.6 (1.0-2.1); ALBUMIN 2.4 g/dL (3.5-5.0); ALT/SGPT 39 U/L (21-72); AST/SGOT 48 U/L (17-59); BLOOD UREA NITROGEN 7 mg/dL (9-20); CALCIUM 7.9 mg/dl (8.6-10.4); GFR NON-AFRICAN AMERICAN > 60
[2018-03-24] MEDS: Multiple Vitamins Oral Solution PO SCH (09:20)
[2018-03-24] MEDS: Lactobacillus Acidophilus 500 MU Cap PO SCH ×2 (09:20→17:57)
[2018-03-24] MEDS: guaiFENesin 600 mg ER Tab PO SCH ×2 (09:20→17:56)
[2018-03-24] MEDS: Simethicone 80 mg Chewtab PO SCH ×4 (09:20→21:31)
[2018-03-24] MEDS: Vitamins A & D Oint UD Foilpak TOP SCH ×2 (09:20→17:56)
[2018-03-24] MEDS: Magnesium Sulfate 1 gm in D5W 1 GM/100 ML BAG IVPB SCH (09:59)
--- NOTE | 2018-03-24 12:21 | CP.PCM.PN ---
Subjective - Date & Time of Evaluation Date of Evaluation: 03/24/18 Time of Evaluation: 12:19 - Subjective Subjective: Alert, feels better Na 129- improving maintained on lasix, nacl tabs Objective - Vital Signs/Intake and Output Vital Signs (last 24 hours): Temp Pulse Resp BP Pulse Ox 98.3 F 70 20 124/64 98 03/24/18 07:10 03/24/18 07:10 03/24/18 07:10 03/24/18 09:20 03/24/18 07:10 Intake and Output: 03/24/18 03/24/18 06:59 18:59 Intake Total 620 Output Total 1000 Balance -380 - Medications Medications: Current Medications Docusate Sodium (Colace) 100 mg PO DAILY PRN PRN Reason: Constipation Folic Acid (Folic Acid) 1 mg PO DAILY [facility] Last Admin: 03/24/18 10:26 Dose: 1 mg Furosemide (Lasix) 20 mg PO DAILY [facility] Last Admin: 03/24/18 09:20 Dose: 20 mg Guaifenesin (Mucinex La) 600 mg PO BID [facility] Last Admin: 03/24/18 09:20 Dose: 600 mg Lactobacillus Acidophilus (Bacid Acidophilus) 1 cap PO BID [facility] Stop: 04/20/18 10:01 Last Admin: 03/24/18 09:20 Dose: 1 cap Lorazepam (Ativan) 1 mg IVP Q6H PRN PRN Reason: Seizure activity Metoprolol Tartrate (Lopressor) 12.5 mg PO BID [facility] Last Admin: 03/24/18 09:20 Dose: 12.5 mg Multivitamins (Hexavitamin) 1 tab PO DAILY [facility] Simethicone (Mylicon Chew Tab) 80 mg PO QID [facility] Last Admin: 03/24/18 09:20 Dose: 80 mg Sodium Chloride (Sodium Chloride Tab) 1 gm PO BID [facility] Last Admin: 03/24/18 09:20 Dose: 1 gm Thiamine HCl (Vitamin B1 Tab) 100 mg PO BID [facility] Last Admin: 03/24/18 09:20 Dose: 100 mg Vitamin A (Vitamin A & D Oint Ud Foilpak) 1 ea TOP BID [facility] Last Admin: 03/24/18 09:20 Dose: 1 ea - Labs Labs: 03/24/18 07:13 03/24/18 07:13 PT 20.3 SECONDS (9.7-12.2) H 03/14/18 13:12 INR 1.9 03/14/18 13:12 APTT 34 SECONDS (21-34) 03/14/18 13:12 - Constitutional Appears: No Acute Distress, Chronically Ill - Head Exam Head Exam: ATRAUMATIC, NORMAL INSPECTION - Eye Exam Eye Exam: EOMI, Normal appearance - Respiratory Exam Respiratory Exam: Clear to Ausculation Bilateral, NORMAL BREATHING PATTERN - Cardiovascular Exam Cardiovascular Exam: REGULAR RHYTHM, +S1 - GI/Abdominal Exam GI & Abdominal Exam: Soft. absent: Tenderness - Extremities Exam Extremities Exam: Normal Inspection. absent: Tenderness - Neurological Exam Neurological Exam: Awake, CN II-XII Intact - Skin Skin Exam: Dry, Warm Assessment and Plan (1) ETOH abuse Status: Acute (2) Cirrhosis Status: Acute (3) Hyponatremia Status: Acute - Assessment and Plan (Free Text) Plan: Continue po lasix, nacl tabs
[2018-03-25 07:25] LABS: BASO % 0.3 % (0.0-2.0); EOS # 0.3 K/uL (0.0-0.7); EOS % 4.2 % (0.0-4.0); HEMOGLOBIN 8.6 g/dL (12.0-18.0); LYMPH % 50.2 % (20.0-40.0); MEAN CELL VOLUME 99.9 fL (80.0-94.0); MEAN CORPUSCULAR HEMOGLOBIN 33.9 pg (27.0-31.0); MEAN CORPUSCULAR HGB CONC 33.9 g/dL (33.0-37.0); MEAN PLATELET VOLUME 9.4 fL (7.2-11.7); MONO # 0.9 K/uL (0.0-0.8); MONO % 10.9 % (0.0-10.0); NEUT # 2.7 K/uL (1.8-7.0); NEUT % 34.4 % (50.0-75.0); NRBC % 0.2 % (0.0-2.0); RBC 2.55 Mil/uL (4.40-5.90); RED CELL DISTRIBUTION WIDTH 16.8 % (11.5-14.5); WHITE BLOOD COUNT 7.9 K/uL (4.8-10.8)
[2018-03-25 07:55] LABS: ALB/GLOB RATIO 0.6 (1.0-2.1); ALBUMIN 2.4 g/dL (3.5-5.0); ALT/SGPT 36 U/L (21-72); AST/SGOT 46 U/L (17-59); BLOOD UREA NITROGEN 7 mg/dL (9-20); GFR NON-AFRICAN AMERICAN > 60
--- NOTE | 2018-03-25 08:33 | CP.PCM.PN ---
Subjective - Date & Time of Evaluation Date of Evaluation: 03/25/18 Time of Evaluation: 08:10 - Subjective Subjective: PGY 1 Medicine Progress Note for Hospitalist Dr. Rossi. Patient examined in bedside. No overnight events reported. Pt lying in bed com fortably. Patient has no complaints, denies chest pain, SOB, hematuria, dysuria, abdominal pain, f/c, n/v. Pt states he is going to sign out AMA tomorrow around noon. Objective - Vital Signs/Intake and Output Vital Signs (last 24 hours): Temp Pulse Resp BP Pulse Ox 98.3 F 76 20 102/58 L 96 03/25/18 07:47 03/25/18 07:47 03/25/18 07:47 03/25/18 07:47 03/25/18 07:47 Intake and Output: 03/25/18 03/25/18 06:59 18:59 Output Total 700 Balance -700 - Medications Medications: Current Medications Docusate Sodium (Colace) 100 mg PO DAILY PRN PRN Reason: Constipation Folic Acid (Folic Acid) 1 mg PO DAILY [facility] Last Admin: 03/24/18 10:26 Dose: 1 mg Furosemide (Lasix) 20 mg PO DAILY [facility] Last Admin: 03/24/18 09:20 Dose: 20 mg Guaifenesin (Mucinex La) 600 mg PO BID [facility] Last Admin: 03/24/18 17:56 Dose: 600 mg Lactobacillus Acidophilus (Bacid Acidophilus) 1 cap PO BID [facility] Stop: 04/20/18 10:01 Last Admin: 03/24/18 17:57 Dose: 1 cap Lorazepam (Ativan) 1 mg IVP Q6H PRN PRN Reason: Seizure activity Metoprolol Tartrate (Lopressor) 12.5 mg PO BID [facility] Last Admin: 03/24/18 17:56 Dose: 12.5 mg Multivitamins (Hexavitamin) 1 tab PO DAILY [facility] Simethicone (Mylicon Chew Tab) 80 mg PO QID [facility] Last Admin: 03/24/18 21:31 Dose: 80 mg Sodium Chloride (Sodium Chloride Tab) 1 gm PO BID [facility] Last Admin: 03/24/18 17:57 Dose: 1 gm Thiamine HCl (Vitamin B1 Tab) 100 mg PO BID [facility] Last Admin: 03/24/18 17:56 Dose: 100 mg Vitamin A (Vitamin A & D Oint Ud Foilpak) 1 ea TOP BID [facility] Last Admin: 03/24/18 17:56 Dose: 1 ea - Labs Labs: 03/25/18 07:20 03/25/18 07:20 PT 20.3 SECONDS (9.7-12.2) H 03/14/18 13:12 INR 1.9 03/14/18 13:12 APTT 34 SECONDS (21-34) 03/14/18 13:12 - Constitutional Appears: Non-toxic, No Acute Distress - Head Exam Head Exam: NORMAL INSPECTION - Eye Exam Eye Exam: EOMI, Normal appearance - ENT Exam ENT Exam: Mucous Membranes Moist - Respiratory Exam Respiratory Exam: Clear to Ausculation Bilateral, NORMAL BREATHING PATTERN. absent: Rales, Rhonchi, Wheezes - Cardiovascular Exam Cardiovascular Exam: +S1, +S2. absent: Murmur - GI/Abdominal Exam GI & Abdominal Exam: Soft, Normal Bowel Sounds - Extremities Exam Extremities Exam: Full ROM, Normal Inspection. absent: Calf Tenderness, Pedal Edema - Back Exam Back Exam: absent: CVA tenderness (L), CVA tenderness (R) - Neurological Exam Neurological Exam: Alert, Awake, Oriented x3 - Skin Skin Exam: Dry, Intact, Normal Color, Warm Assessment and Plan - Assessment and Plan (Free Text) Assessment: 57 yr old homeless male w/ PMhx of subdural hematoma, HTN, ETOH abuse, pneumonia: presents for unsteady gait and new subdural hematoma. Pt had previous stable pneumonia, hyponatrema, & subdural on previous admission and was recommended to TCU for unsteady gait; however he signed out AMA on 03/13, retur james to ED 03/14 new subdural hematoma, unsteady gait, hyponatremia. Pt had lapse in medicaid on 03/17 disqualifiying him for TCU. Currently pt refuses to be D/c'ed to families home and is not a candidate for halfway as he is required to have a rolling walker: Subdural Hematoma - CT head (03/14): Interval development of small hyperdensity within the posterior fossa close to the cerebellar vermis along the tentorium, consistent with acute subdural hematoma. Bilateral subdural collections appear hypodense consistent with chronic hematomas. Nonspecific white matter changes. - CT head (03/15): Stable small medial left tentorial subdural hematoma with no mass-effect related. No new interval intracranial hemorrhage. Stable bilateral subdural hygromas. Stable mild diffuse cerebral atrophy reiterated. Continued clinical and CT vigilance recommended. - CT head (03/22): Stable appearing small to medium-sized bilateral hypodense subdural collections right slightly larger than left. Moderate generalized volume loss as above. No new hemorrhages or hydrocephalus. - no further management per neurosurgery & neurology - pt remains A&Ox3, asymptomatic, continue to monitor Hyponatremia Electrolyte imbalance - Na+ stable in mid 120s - Likely due to ETOH abuse - Fluid restrict to 1000ml/day - F/u nephrology, Dr. Taylor recs - Urine osmololity, serium uric acid - Give 5% saline 300 ml over 6hrs IF patient becomes altered or Na+ drops b elow 122 - tovalptan x 1 dose if Na <120 - due to persistant hyponatremia, NaCl resumed 03/22; lasix 03/23 - Mg in 1.5 - replenish as necessary Lower Leg Edema - PAD vs DVT vs other cases - D-dimer 4000s - CTA (03/22): no PE, moderate pleural effusion, pulmonary edema/CHF, hilar adenopathy- likely reactive - LE & UE duplex B/L - negative - Compressive stockings - Vit A& D for xeroderma Essential Tremor Chronic - likely 2/2 to ETOH abuse - Per neurology, not likely neurological cause - 1 X 0.5mg ativan given to assess reduction of tremor - metoprolol 12.5 mg BID - tremor still present but improved Hypertension - resume home medication metoprolol tartrate 12.5mg PO BID Unsteady gait - patient currently has baseline tremor - patient unable to walk without assistance - physical therapy evaluation - on 03/21 - patient is stable for D/C with rolling walker - Fall precautions - Bedside commode Alcohol abuse Cirrhosis - ETOH <10 - Fall precautions - Seizure precautions - Has not received anticoagulation secondary to subdural hematoma - patient is cirrhotic per US - Ativan 1mg IVP PRN - Thaimine 100 mg PO BID - Folic acid 1mg PO daily - Multivitamin 1 tab PO daily Elevated Liver Function Tests - likely secondary to patients ETOH history - From previous admission labs - Abdominal U/S 02/27/18: nodular hepatic contour consistent with cirrhosis, echogenic liver may be seen in the setting of hepatic parynchymal disease or fatty infiltration, small ascites, gallstones - Hepatitis Panel 02/27/18: negative - HIV 4th Generation 02/27/18: negative Anemia likely secondary to history alcohol abuse - Monitor HgB/Hct - From previous admission labs: - Vitamin B12 normal at 856 - Folate normal at 3.3 - Iron Studies: Total Iron at 117, % Saturation 55, Ferritin 689, TIBC low at 212 - Patient is Cirrhotic per Ab US Pneumonia Fevers Acute respiratory failure Resolved - Fever spikes on 03/19 @3pm Tmax 100.7, afebrile > 72 hrs - CXR (03/14): Patchy right lower lobe consolidation. Mild pulmonary venous congestion. - CXR (03/19): persistent patch increased consolidative changes at RLL zone concerning for underlying infiltrate. Posttreatment interval following-up is recommended to ensure resolution & exclude underlying lesion. Diffuse increased interstitial lung markings bilaterally. Biapical pleural thickening with upper lobe granulomatous changes. - Blood cultures 03/19 - negative X 72 hrs - urine cultures negative - Afebril 72 hrs - outpatient therapy Augmentin 875/125mg BID for 7 days completed Prophylaxis - DVT: SCDs (venous dopplers from previous admission negative), chemical contraindicated 05/20 to subdural hematoma - PT evaluation - D/C w/ walker - D/c telemetry Patient verbally consented and requested that I speak with his daughters to provide them with an update on his condition. Spoke with Peri @ [phone] & Catherine @ [phone] on 03/17. Both daughters understood the patients condition. Additionally, both daughters were informed that his medicaid will be expiring on 03/17/18. Both daughters stated that they will discuss whether the patient will be able to stay with them upon discharge. Spoke with Peri on 03/21, daughter has re-submitted medicaid paperwork on 03/20. She stated Catherine might be able to take father to her residence after D/C; however, made multiple attempts to reach Catherine, but was unable to get in contact. 03/22, social work job titles spoke with Catherine and stated she would not be able to take care of her father. Patient also has a sister, Radha Giraldo, that can be reacehd at [phone] or [phone]. Patient states he does not want to go their home on D/C. Patient states he can be discharged [address], [place]. PT recs safe D/C with rolling walker; however, patient is homeless and would not be able to go to halfway w walker. Spoke with patient extensively of the dangers of signing out AMA, patient understood but still stated that he will sign out AMA latest 03/26 (updated) . He states he will attempt to quit ETOH. Patient already has medication bedside from previous admission. Will provide prescription for new medications: lasix 20 and sodium chloride tablets.
--- NOTE | 2018-03-25 09:53 | CP.PCM.PN ---
Subjective - Date & Time of Evaluation Date of Evaluation: 03/25/18 Time of Evaluation: 09:50 - Subjective Subjective: Notes reviewed Comfortable in bed Offers no complaints Food tray at bedside with pitcher of water Discussed water restriction No overnight events NO cp or palp, no sob or cough, no n/v/d 10 point ros negative other than stated above Objective - Vital Signs/Intake and Output Vital Signs (last 24 hours): Temp Pulse Resp BP Pulse Ox 98.3 F 76 20 102/58 L 96 03/25/18 07:47 03/25/18 07:47 03/25/18 07:47 03/25/18 07:47 03/25/18 07:47 Intake and Output: 03/25/18 03/25/18 06:59 18:59 Output Total 700 Balance -700 - Medications Medications: Current Medications Docusate Sodium (Colace) 100 mg PO DAILY PRN PRN Reason: Constipation Folic Acid (Folic Acid) 1 mg PO DAILY [facility] Last Admin: 03/24/18 10:26 Dose: 1 mg Furosemide (Lasix) 20 mg PO DAILY [facility] Last Admin: 03/24/18 09:20 Dose: 20 mg Guaifenesin (Mucinex La) 600 mg PO BID [facility] Last Admin: 03/24/18 17:56 Dose: 600 mg Lactobacillus Acidophilus (Bacid Acidophilus) 1 cap PO BID [facility] Stop: 04/20/18 10:01 Last Admin: 03/24/18 17:57 Dose: 1 cap Lorazepam (Ativan) 1 mg IVP Q6H PRN PRN Reason: Seizure activity Metoprolol Tartrate (Lopressor) 12.5 mg PO BID [facility] Last Admin: 03/24/18 17:56 Dose: 12.5 mg Multivitamins (Hexavitamin) 1 tab PO DAILY [facility] Simethicone (Mylicon Chew Tab) 80 mg PO QID [facility] Last Admin: 03/24/18 21:31 Dose: 80 mg Sodium Chloride (Sodium Chloride Tab) 1 gm PO BID [facility] Last Admin: 03/24/18 17:57 Dose: 1 gm Thiamine HCl (Vitamin B1 Tab) 100 mg PO BID [facility] Last Admin: 03/24/18 17:56 Dose: 100 mg Vitamin A (Vitamin A & D Oint Ud Foilpak) 1 ea TOP BID [facility] Last Admin: 03/24/18 17:56 Dose: 1 ea - Labs Labs: 03/25/18 07:20 03/25/18 07:20 PT 20.3 SECONDS (9.7-12.2) H 03/14/18 13:12 INR 1.9 03/14/18 13:12 APTT 34 SECONDS (21-34) 03/14/18 13:12 - Constitutional Appears: No Acute Distress, Chronically Ill - Eye Exam Eye Exam: EOMI, Normal appearance - ENT Exam ENT Exam: Mucous Membranes Moist, Normal Oropharynx - Neck Exam Neck Exam: absent: Lymphadenopathy, Thyromegaly - Respiratory Exam Respiratory Exam: absent: Rales, Rhonchi, Wheezes - Cardiovascular Exam Cardiovascular Exam: +S1, +S2. absent: JVD - GI/Abdominal Exam GI & Abdominal Exam: Soft, Normal Bowel Sounds - Extremities Exam Extremities Exam: absent: Pedal Edema, Tenderness - Neurological Exam Neurological Exam: Alert, Awake - Skin Skin Exam: Dry, Intact Assessment and Plan (1) Alcohol abuse Status: Acute (2) Hyponatremia Status: Acute (3) Subdural hemorrhage Status: Acute - Assessment and Plan (Free Text) Assessment: Hyponatremia stable Await labs today Discussed fluid restriction with patient Continue current care
[2018-03-25] MEDS: Vitamins A & D Oint UD Foilpak TOP SCH ×2 (10:10→17:49)
[2018-03-25] MEDS: Lactobacillus Acidophilus 500 MU Cap PO SCH ×2 (10:10→17:49)
[2018-03-25] MEDS: guaiFENesin 600 mg ER Tab PO SCH ×2 (10:11→17:49)
[2018-03-25] MEDS: Multiple Vitamins Tab PO SCH (10:11)
[2018-03-25] MEDS: Simethicone 80 mg Chewtab PO SCH ×4 (10:11→21:40)
[2018-03-25] MEDS ORDERED: Magnesium Sulfate 1 gm in D5W 1 GM/100 ML BAG IVPB SCH (14:30)
[2018-03-25] MEDS ORDERED: Potassium Chloride 20 mEq ER Tab PO ONE (14:31)
[2018-03-25] MEDS: Magnesium Sulfate 1 gm in D5W 1 GM/100 ML BAG IVPB SCH ×2 (15:28→16:52)
[2018-03-26 07:38] LABS: BASO # 0.1 K/uL (0.0-0.2); BASO % 1.4 % (0.0-2.0); EOS # 0.3 K/uL (0.0-0.7); EOS % 3.7 % (0.0-4.0); LYMPH # 4.2 K/uL (1.0-4.3); LYMPH % 46.6 % (20.0-40.0); MEAN CELL VOLUME 100.6 fL (80.0-94.0); MEAN CORPUSCULAR HEMOGLOBIN 34.6 pg (27.0-31.0); MEAN CORPUSCULAR HGB CONC 34.4 g/dL (33.0-37.0); MEAN PLATELET VOLUME 8.9 fL (7.2-11.7); MONO % 11.6 % (0.0-10.0); NEUT # 3.3 K/uL (1.8-7.0); NEUT % 36.7 % (50.0-75.0); NRBC % 0.1 % (0.0-2.0); RBC 2.59 Mil/uL (4.40-5.90); RED CELL DISTRIBUTION WIDTH 16.7 % (11.5-14.5)
--- NOTE | 2018-03-26 07:40 | CP.PCM.PN ---
Subjective - Date & Time of Evaluation Date of Evaluation: 03/26/18 Time of Evaluation: 07:00 - Subjective Subjective: PGY 1 Medicine Progress Note for Hospitalist Dr. Rossi. Patient examined in bedside. No overnight events reported. Pt lying in bed com fortably. Patient has no complaints, denies chest pain, SOB, hematuria, dysuria, abdominal pain, f/c, n/v. Patient is stating he will now sign out tomorrow AMA as he needs a pair of clothes prior to discharge. Objective - Vital Signs/Intake and Output Vital Signs (last 24 hours): Temp Pulse Resp BP Pulse Ox 98.1 F 80 20 114/54 L 100 03/25/18 23:05 03/25/18 23:05 03/25/18 23:05 03/25/18 23:05 03/25/18 23:05 Intake and Output: 03/26/18 03/26/18 06:59 18:59 Intake Total 680 Balance 680 - Medications Medications: Current Medications Docusate Sodium (Colace) 100 mg PO DAILY PRN PRN Reason: Constipation Folic Acid (Folic Acid) 1 mg PO DAILY [facility] Last Admin: 03/25/18 10:11 Dose: 1 mg Furosemide (Lasix) 20 mg PO DAILY [facility] Last Admin: 03/25/18 10:12 Dose: 20 mg Guaifenesin (Mucinex La) 600 mg PO BID [facility] Last Admin: 03/25/18 17:49 Dose: 600 mg Lactobacillus Acidophilus (Bacid Acidophilus) 1 cap PO BID [facility] Stop: 04/20/18 10:01 Last Admin: 03/25/18 17:49 Dose: 1 cap Lorazepam (Ativan) 1 mg IVP Q6H PRN PRN Reason: Seizure activity Metoprolol Tartrate (Lopressor) 12.5 mg PO BID [facility] Last Admin: 03/25/18 17:50 Dose: 12.5 mg Multivitamins (Hexavitamin) 1 tab PO DAILY [facility] Last Admin: 03/25/18 10:11 Dose: 1 tab Simethicone (Mylicon Chew Tab) 80 mg PO QID [facility] Last Admin: 03/25/18 21:40 Dose: 80 mg Sodium Chloride (Sodium Chloride Tab) 1 gm PO BID [facility] Last Admin: 03/25/18 17:49 Dose: 1 gm Thiamine HCl (Vitamin B1 Tab) 100 mg PO BID [facility] Last Admin: 03/25/18 17:49 Dose: 100 mg Vitamin A (Vitamin A & D Oint Ud Foilpak) 1 ea TOP BID [facility] Last Admin: 03/25/18 17:49 Dose: 1 ea - Labs Labs: 03/26/18 07:24 03/25/18 07:20 PT 20.3 SECONDS (9.7-12.2) H 03/14/18 13:12 INR 1.9 03/14/18 13:12 APTT 34 SECONDS (21-34) 03/14/18 13:12 - Constitutional Appears: Non-toxic, No Acute Distress - Head Exam Head Exam: NORMAL INSPECTION - Eye Exam Eye Exam: Normal appearance - ENT Exam ENT Exam: Mucous Membranes Moist - Respiratory Exam Respiratory Exam: Clear to Ausculation Bilateral, NORMAL BREATHING PATTERN - Cardiovascular Exam Cardiovascular Exam: +S1, +S2. absent: REGULAR RHYTHM - GI/Abdominal Exam GI & Abdominal Exam: Soft, Normal Bowel Sounds - Extremities Exam Extremities Exam: Full ROM, Normal Inspection. absent: Pedal Edema - Neurological Exam Neurological Exam: Alert, Awake, Oriented x3 - Psychiatric Exam Psychiatric exam: Normal Affect, Normal Mood - Skin Skin Exam: Dry, Intact, Normal Color, Warm Assessment and Plan - Assessment and Plan (Free Text) Assessment: 57 yr old homeless male w/ PMhx of subdural hematoma, HTN, ETOH abuse, pne umonia: presents for unsteady gait and new subdural hematoma. Pt had previous stable pneumonia, hyponatrema, & subdural on previous admission and was recommended to TCU for unsteady gait; however he signed out AMA on 03/13, returning to ED 03/14 new subdural hematoma, unsteady gait, hyponatremia. Pt had lapse in medicaid on 03/17 disqualifiying him for TCU. Currently pt refuses to be D/c'ed to families home and is not a candidate for intermediate as he is required to have a rolling walker: Subdural Hematoma - CT head (03/14): Interval development of small hyperdensity within the posterior fossa close to the cerebellar vermis along the tentorium, consistent with acute subdural hematoma. Bilateral subdural collections appear hypodense consistent with chronic hematomas. Nonspecific white matter changes. - CT head (03/15): Stable small medial left tentorial subdural hematoma with no mass-effect related. No new interval intracranial hemorrhage. Stable bilateral subdural hygromas. Stable mild diffuse cerebral atrophy reiterated. Continued clinical and CT vigilance recommended. - CT head (03/22): Stable appearing small to medium-sized bilateral hypodense subdural collections right slightly larger than left. Moderate generalized volume loss as above. No new hemorrhages or hydrocephalus. - no further management per neurosurgery & neurology - pt remains A&Ox3, asymptomatic, continue to monitor Hyponatremia Electrolyte imbalance - Na+ stable in mid 120s - Likely due to ETOH abuse - Fluid restrict to 1000ml/day - F/u nephrology, Dr. Taylor recs - Urine osmololity, serium uric acid - Give 5% saline 300 ml over 6hrs IF patient becomes altered or Na+ drops below 122 - tovalptan x 1 dose if Na <120 - due to persistant hyponatremia, NaCl resumed 03/22; lasix 03/23 Lower Leg Edema - PAD vs DVT vs other cases - D-dimer 4000s - CTA (03/22): no PE, moderate pleural effusion, pulmonary edema/CHF, hilar adenopathy- likely reactive - LE & UE duplex B/L - negative - Compressive stockings - Vit A& D for xeroderma Essential Tremor Chronic - likely 2/2 to ETOH abuse - Per neurology, not likely neurological cause - 1 X 0.5mg ativan given to assess reduction of tremor - metoprolol 12.5 mg BID - tremor still present but improved Hypertension - resume home medication metoprolol tartrate 12.5mg PO BID Unsteady gait - patient currently has baseline tremor - patient unable to walk without assistance - physical therapy evaluation - on 03/21 - patient is stable for D/C with rolling walker - Fall precautions - Bedside commode Alcohol abuse Cirrhosis - ETOH <10 - Fall precautions - Seizure precautions - Has not received anticoagulation secondary to subdural hematoma - patient is cirrhotic per US - Ativan 1mg IVP PRN - Thaimine 100 mg PO BID - Folic acid 1mg PO daily - Multivitamin 1 tab PO daily Elevated Liver Function Tests - likely secondary to patients ETOH history - From previous admission labs - Abdominal U/S 02/27/18: nodular hepatic contour consistent with cirrhosis, echogenic liver may be seen in the setting of hepatic parynchymal disease or fatty infiltration, small ascites, gallstones - Hepatitis Panel 02/27/18: negative - HIV 4th Generation 02/27/18: negative Anemia likely secondary to history alcohol abuse - Monitor HgB/Hct - From previous admission labs: - Vitamin B12 normal at 856 - Folate normal at 3.3 - Iron Studies: Total Iron at 117, % Saturation 55, Ferritin 689, TIBC low at 212 - Patient is Cirrhotic per Ab US Pneumonia Fevers Acute respiratory failure Resolved - Fever spikes on 03/19 @3pm Tmax 100.7, afebrile > 72 hrs - CXR (03/14): Patchy right lower lobe consolidation. Mild pulmonary venous congestion. - CXR (03/19): persistent patch increased consolidative changes at RLL zone concerning for underlying infiltrate. Posttreatment interval following-up is recommended to ensure resolution & exclude underlying lesion. Diffuse increased interstitial lung markings bilaterally. Biapical pleural thickening with upper lobe granulomatous changes. - Blood cultures 03/19 - negative X 72 hrs - urine cultures negative - Afebril 72 hrs - outpatient therapy Augmentin 875/125mg BID for 7 days completed Prophylaxis - DVT: SCDs (venous dopplers from previous admission negative), chemical contraindicated 05/20 to subdural hematoma - PT evaluation - D/C w/ walker - D/c telemetry Patient verbally consented and requested that I speak with his daughters to provide them with an update on his condition. Spoke with Peri @ [phone] & Catherine @ [phone] on 03/17. Both daughters understood the patients condition. Additionally, both daughters were informed that his medicaid will be expiring on 03/17/18. Both daughters stated that they will discuss whether the patient will be able to stay with them upon discharge. Spoke with Peri on 03/21, daughter has re-submitted medicaid paperwork on 03/20. She stated Catherine might be able to take father to her residence after D/C; however, made multiple attempts to reach Catherine, but was unable to get in contact. 03/22, social insurance analyst spoke with Catherine and stated she would not be able to take care of her father. Patient also has a sister, Radha Giraldo, that can be [facility] at [phone] or [phone]. Patient states he does not want to go their home on D/C. Patient states he can be discharged [address] [place], [place]. PT recs safe D/C with rolling walker; however, patient is homeless and would not be able to go to intermediate w walker. . He states he will attempt to quit ETOH. Patient already has medication bedside from previous admission. Will provide prescription for new medications: lasix 20 and sodium chloride tablets. Spoke with patient extensively of the dangers of signing out AMA, patient understood but still stated that he will sign out AMA now on 12/10 AM.
[2018-03-26 07:59] LABS: ALB/GLOB RATIO 0.6 (1.0-2.1); ALBUMIN 2.4 g/dL (3.5-5.0); ALT/SGPT 32 U/L (21-72); AST/SGOT 45 U/L (17-59); BLOOD UREA NITROGEN 8 mg/dL (9-20); CALCIUM 7.7 mg/dl (8.6-10.4); GFR NON-AFRICAN AMERICAN > 60
[2018-03-26] MEDS: Simethicone 80 mg Chewtab PO SCH ×4 (10:04→22:43)
[2018-03-26] MEDS: Multiple Vitamins Tab PO SCH (10:04)
[2018-03-26] MEDS: guaiFENesin 600 mg ER Tab PO SCH ×2 (10:05→17:42)
[2018-03-26] MEDS: Vitamins A & D Oint UD Foilpak TOP SCH ×2 (10:05→17:43)
[2018-03-26] MEDS: Lactobacillus Acidophilus 500 MU Cap PO SCH ×2 (13:40→17:43)
--- NOTE | 2018-03-27 08:37 | CP.PCM.PN ---
Subjective - Date & Time of Evaluation Date of Evaluation: 03/27/18 Time of Evaluation: 08:00 - Subjective Subjective: PGY1 Medicine Progress Note for Hospitalist Dr. Jerardo Giraldo. Patient seen and examined at bedside. No overnight events reported. Patient lying in bed, no acute distress. Patient has no complaints. Patient denies chest pain, SOB, abdominal pain, nausea, vomiting, f/c, hematuria, dysuria. Patient states his walking around much better than better with his hand tremor is much improved. Objective - Vital Signs/Intake and Output Vital Signs (last 24 hours): Temp Pulse Resp BP Pulse Ox 99.3 F 78 20 118/64 98 03/27/18 07:00 03/27/18 07:00 03/27/18 07:00 03/27/18 07:00 03/27/18 07:00 Intake and Output: 03/27/18 03/27/18 06:59 18:59 Intake Total 500 Output Total 600 Balance -100 - Medications Medications: Current Medications Docusate Sodium (Colace) 100 mg PO DAILY PRN PRN Reason: Constipation Last Admin: 03/26/18 10:05 Dose: 100 mg Folic Acid (Folic Acid) 1 mg PO DAILY [facility] Last Admin: 03/26/18 10:04 Dose: 1 mg Furosemide (Lasix) 20 mg PO DAILY [facility] Last Admin: 03/26/18 10:05 Dose: 20 mg Guaifenesin (Mucinex La) 600 mg PO BID [facility] Last Admin: 03/26/18 17:42 Dose: 600 mg Lactobacillus Acidophilus (Bacid Acidophilus) 1 cap PO BID [facility] Stop: 04/20/18 10:01 Last Admin: 03/26/18 17:43 Dose: 1 cap Metoprolol Tartrate (Lopressor) 12.5 mg PO BID [facility] Last Admin: 03/26/18 17:43 Dose: Not Given Multivitamins (Hexavitamin) 1 tab PO DAILY [facility] Last Admin: 03/26/18 10:04 Dose: 1 tab Simethicone (Mylicon Chew Tab) 80 mg PO QID [facility] Last Admin: 03/26/18 22:43 Dose: 80 mg Sodium Chloride (Sodium Chloride Tab) 1 gm PO BID [facility] Last Admin: 03/26/18 17:43 Dose: 1 gm Thiamine HCl (Vitamin B1 Tab) 100 mg PO BID [facility] Last Admin: 03/26/18 17:43 Dose: 100 mg Vitamin A (Vitamin A & D Oint Ud Foilpak) 1 ea TOP BID [facility] Last Admin: 03/26/18 17:43 Dose: 1 ea - Labs Labs: 03/26/18 07:24 03/26/18 07:24 PT 20.3 SECONDS (9.7-12.2) H 03/14/18 13:12 INR 1.9 03/14/18 13:12 APTT 34 SECONDS (21-34) 03/14/18 13:12 - Constitutional Appears: Non-toxic, No Acute Distress - Head Exam Head Exam: NORMAL INSPECTION - Eye Exam Eye Exam: Normal appearance - ENT Exam ENT Exam: Mucous Membranes Moist - Respiratory Exam Respiratory Exam: Clear to Ausculation Bilateral, NORMAL BREATHING PATTERN. absent: Rales, Rhonchi, Wheezes - Cardiovascular Exam Cardiovascular Exam: +S1, +S2 - GI/Abdominal Exam GI & Abdominal Exam: Soft, Normal Bowel Sounds - Extremities Exam Extremities Exam: Normal Inspection, Pedal Edema Additional comments: trace pitting edema. - Back Exam Back Exam: absent: CVA tenderness (L), CVA tenderness (R) - Neurological Exam Neurological Exam: Alert, Awake, Oriented x3 - Psychiatric Exam Psychiatric exam: Normal Affect, Normal Mood - Skin Skin Exam: Dry, Intact, Normal Color, Warm Additional comments: LE b/l hyperpigmented consistent w/ peripheral vascular disease Assessment and Plan - Assessment and Plan (Free Text) Assessment: 57 yr old homeless male w/ PMhx of subdural hematoma, HTN, ETOH abuse, pneumonia: presents for unsteady gait and new subdural hematoma. Pt had previous stable pneumonia, hyponatrema, & subdural on previous admission and was recommended to TCU for unsteady gait; however he signed out AMA on 03/13, returning to ED 03/14 new subdural hematoma, unsteady gait, hyponatremia. Pt had lapse in medicaid on 03/17 disqualifiying him for TCU. Currently pt refuses to be D/c'ed to families home and is not a candidate for longterm as he is required to have a rolling walker: Subdural Hematoma - CT head (03/14): Interval development of small hyperdensity within the posterior fossa close to the cerebellar vermis along the tentorium, consistent with acute subdural hematoma. Bilateral subdural collections appear hypodense consistent with chronic hematomas. Nonspecific white matter changes. - CT head (03/15): Stable small medial left tentorial subdural hematoma with no mass-effect related. No new interval intracranial hemorrhage. Stable bilateral subdural hygromas. Stable mild diffuse cerebral atrophy reiterated. Continued clinical and CT vigilance recommended. - CT head (03/22): Stable appearing small to medium-sized bilateral hypodense subdural collections right slightly larger than left. Moderate generalized volume loss as above. No new hemorrhages or hydrocephalus. - no further management per neurosurgery & neurology - pt remains A&Ox3, asymptomatic, continue to monitor Hyponatremia Electrolyte imbalance - Na+ stable in mid 120s - Likely due to ETOH abuse - Fluid restrict to 1000ml/day - F/u nephrology, Dr. Taylor recs - Urine osmololity, serium uric acid - Give 5% saline 300 ml over 6hrs IF patient becomes altered or Na+ drops below 122 - tovalptan x 1 dose if Na <120 - due to persistant hyponatremia, NaCl resumed 03/22; lasix 03/23 - magnesium 1.4 in AM labs, replenish 1gm magnesium X 2 bags Lower Leg Edema - PAD vs DVT vs other cases - D-dimer 4000s - CTA (03/22): no PE, moderate pleural effusion, pulmonary edema/CHF, hilar adenopathy- likely reactive - LE & UE duplex B/L - negative - Compressive stockings - Vit A& D for xeroderma Essential Tremor Chronic - likely 2/2 to ETOH abuse - Per neurology, not likely neurological cause - 1 X 0.5mg ativan given to assess reduction of tremor - metoprolol 12.5 mg BID - tremor still present but improved Hypertension - resume home medication metoprolol tartrate 12.5mg PO BID Unsteady gait - patient currently has baseline tremor - patient unable to walk without assistance - physical therapy evaluation - on 03/21 - patient is stable for D/C with rolling walker - Fall precautions - Bedside commode Alcohol abuse Cirrhosis - ETOH <10 - Fall precautions - Seizure precautions - Has not received anticoagulation secondary to subdural hematoma - patient is cirrhotic per US - Ativan 1mg IVP PRN - Thaimine 100 mg PO BID - Folic acid 1mg PO daily - Multivitamin 1 tab PO daily Elevated Liver Function Tests - likely secondary to patients ETOH history - From previous admission labs - Abdominal U/S 02/27/18: nodular hepatic contour consistent with cirrhosis, echogenic liver may be seen in the setting of hepatic parynchymal disease or fatty infiltration, small ascites, gallstones - Hepatitis Panel 02/27/18: negative - HIV 4th Generation 02/27/18: negative Anemia likely secondary to history alcohol abuse - Monitor HgB/Hct - From previous admission labs: - Vitamin B12 normal at 856 - Folate normal at 3.3 - Iron Studies: Total Iron at 117, % Saturation 55, Ferritin 689, TIBC low at 212 - Patient is Cirrhotic per Ab US Pneumonia Fevers Acute respiratory failure Resolved - Fever spikes on 03/19 @3pm Tmax 100.7, afebrile > 72 hrs - CXR (03/14): Patchy right lower lobe consolidation. Mild pulmonary venous congestion. - CXR (03/19): persistent patch increased consolidative changes at RLL zone con cerning for underlying infiltrate. Posttreatment interval following-up is recommended to ensure resolution & exclude underlying lesion. Diffuse increased interstitial lung markings bilaterally. Biapical pleural thickening with upper lobe granulomatous changes. - Blood cultures 03/19 - negative X 72 hrs - urine cultures negative - Afebril 72 hrs - outpatient therapy Augmentin 875/125mg BID for 7 days completed Prophylaxis - DVT: SCDs (venous dopplers from previous admission negative), chemical contraindicated 05/20 to subdural hematoma - PT evaluation - D/C w/ walker - D/c telemetry Patient verbally consented and requested that I speak with his daughters to provide them with an update on his condition. Spoke with Peri @ [phone] & Catherine @ [phone] on 03/17. Both daughters understood the patients condition. Additionally, both daughters were informed that his medicaid will be expiring on 03/17/18. Both daughters stated that they will discuss whether the patient will be able to stay with them upon discharge. Spoke with Peri on 03/21, daughter has re-submitted medicaid paperwork on 03/20. She stated Catherine might be able to take father to her residence after D/C; however, made multiple attempts to reach Catherine, but was unable to get in contact. 03/22, social services manager spoke with Catherine and stated she would not be able to take care of her father. Patient also has a sister, Radha Giraldo, that can be [facility] at [phone] or [phone]. Patient states he does not want to go their home on D/C. Patient states he can be discharged [address], [place]. PT recs safe D/C with rolling walker; however, patient is homeless and would not be able to go to longterm w walker. . He states he will attempt to quit ETOH. Patient already has medication bedside from previous admission. Will provide prescription for new medications: lasix 20 and sodium chloride tablets. Spoke with patient extensively of the dangers of signing out AMA, patient understood but still stated that he will sign out AMA now on 12/11 AM. Patient stated he needed a ramandeep r of pants as his were soiled on admission. Hospital has provided him a pair of pants.
[2018-03-27] MEDS: Vitamins A & D Oint UD Foilpak TOP SCH ×2 (09:44→17:11)
[2018-03-27] MEDS: guaiFENesin 600 mg ER Tab PO SCH ×2 (09:44→17:11)
[2018-03-27] MEDS: Multiple Vitamins Tab PO SCH (09:44)
[2018-03-27] MEDS: Simethicone 80 mg Chewtab PO SCH ×4 (09:44→21:31)
--- NOTE | 2018-03-27 10:44 | CP.PCM.PN ---
Subjective - Date & Time of Evaluation Date of Evaluation: 03/27/18 Time of Evaluation: 10:42 - Subjective Subjective: seen and examined no complaints getting labs drawn reports going home today Objective - Vital Signs/Intake and Output Vital Signs (last 24 hours): Temp Pulse Resp BP Pulse Ox 99.3 F 97 H 20 111/60 98 03/27/18 07:00 03/27/18 09:43 03/27/18 07:00 03/27/18 09:44 03/27/18 07:00 Intake and Output: 03/27/18 03/27/18 06:59 18:59 Intake Total 500 Output Total 600 Balance -100 - Medications Medications: Current Medications Docusate Sodium (Colace) 100 mg PO DAILY PRN PRN Reason: Constipation Last Admin: 03/27/18 09:44 Dose: 100 mg Folic Acid (Folic Acid) 1 mg PO DAILY [facility] Last Admin: 03/27/18 09:44 Dose: 1 mg Furosemide (Lasix) 20 mg PO DAILY [facility] Last Admin: 03/27/18 09:44 Dose: 20 mg Guaifenesin (Mucinex La) 600 mg PO BID [facility] Last Admin: 03/27/18 09:44 Dose: 600 mg Lactobacillus Acidophilus (Bacid Acidophilus) 1 cap PO BID [facility] Stop: 04/20/18 10:01 Last Admin: 03/26/18 17:43 Dose: 1 cap Metoprolol Tartrate (Lopressor) 12.5 mg PO BID [facility] Last Admin: 03/27/18 09:44 Dose: 12.5 mg Multivitamins (Hexavitamin) 1 tab PO DAILY [facility] Last Admin: 03/27/18 09:44 Dose: 1 tab Simethicone (Mylicon Chew Tab) 80 mg PO QID [facility] Last Admin: 03/27/18 09:44 Dose: 80 mg Sodium Chloride (Sodium Chloride Tab) 1 gm PO BID [facility] Last Admin: 03/27/18 09:44 Dose: 1 gm Thiamine HCl (Vitamin B1 Tab) 100 mg PO BID [facility] Last Admin: 03/27/18 09:44 Dose: 100 mg Vitamin A (Vitamin A & D Oint Ud Foilpak) 1 ea TOP BID [facility] Last Admin: 03/27/18 09:44 Dose: 1 ea - Labs Labs: 03/26/18 07:24 03/26/18 07:24 PT 20.3 SECONDS (9.7-12.2) H 03/14/18 13:12 INR 1.9 03/14/18 13:12 APTT 34 SECONDS (21-34) 03/14/18 13:12 - Constitutional Appears: Non-toxic, No Acute Distress, Cachectic, Chronically Ill - Head Exam Head Exam: NORMAL INSPECTION, NORMOCEPHALIC - Eye Exam Eye Exam: Normal appearance, PERRL - ENT Exam ENT Exam: Mucous Membranes Moist, Normal Exam - Neck Exam Neck Exam: Full ROM, Normal Inspection - Respiratory Exam Respiratory Exam: Decreased Breath Sounds, NORMAL BREATHING PATTERN - Cardiovascular Exam Cardiovascular Exam: REGULAR RHYTHM, RRR - GI/Abdominal Exam GI & Abdominal Exam: Distended, Soft - Extremities Exam Extremities Exam: Full ROM, Normal Inspection, Pedal Edema - Back Exam Back Exam: NORMAL INSPECTION - Neurological Exam Neurological Exam: Alert, Awake, Oriented x3 - Skin Skin Exam: Normal Color, Warm Assessment and Plan (1) Alcohol abuse Status: Acute (2) Cirrhosis Status: Acute (3) Hyponatremia Status: Acute - Assessment and Plan (Free Text) Assessment: hyponatremia sec to liver cirrhosis alcoholic liver dz plan: fluid restriction nacl tabs, lasix daily chems not a candidate for tolvaptan
[2018-03-27] MEDS: Lactobacillus Acidophilus 500 MU Cap PO SCH ×2 (10:50→17:11)
[2018-03-27 11:38] LABS: BASO # 0.1 K/uL (0.0-0.2); BASO % 1.2 % (0.0-2.0); EOS # 0.3 K/uL (0.0-0.7); LYMPH # 3.5 K/uL (1.0-4.3); MEAN CELL VOLUME 101.4 fL (80.0-94.0); MEAN CORPUSCULAR HEMOGLOBIN 35.2 pg (27.0-31.0); MEAN CORPUSCULAR HGB CONC 34.8 g/dL (33.0-37.0); MEAN PLATELET VOLUME 8.8 fL (7.2-11.7); MONO # 0.9 K/uL (0.0-0.8); MONO % 13.2 % (0.0-10.0); NEUT # 1.9 K/uL (1.8-7.0); NEUT % 28.6 % (50.0-75.0); NRBC % 0.2 % (0.0-2.0); RBC 2.56 Mil/uL (4.40-5.90); RED CELL DISTRIBUTION WIDTH 16.1 % (11.5-14.5); WHITE BLOOD COUNT 6.5 K/uL (4.8-10.8)
[2018-03-27 11:45] LABS: ALB/GLOB RATIO 0.7 (1.0-2.1); ALBUMIN 2.9 g/dL (3.5-5.0); ALT/SGPT 34 U/L (21-72); AST/SGOT 51 U/L (17-59); BLOOD UREA NITROGEN 7 mg/dL (9-20); CALCIUM 7.9 mg/dl (8.6-10.4); GFR NON-AFRICAN AMERICAN > 60
[2018-03-27 15:10] LABS: OSMOLALITY,URINE 280 mosm/kg (300-1000)
[2018-03-27] MEDS: Magnesium Sulfate 1 gm in D5W 1 GM/100 ML BAG IVPB SCH ×2 (16:55→17:55)
--- NOTE | 2018-03-28 07:13 | CP.PCM.PN ---
Objective - Vital Signs/Intake and Output Vital Signs (last 24 hours): Temp Pulse Resp BP Pulse Ox 98.4 F 83 20 107/64 99 03/27/18 23:05 03/27/18 23:05 03/27/18 23:05 03/27/18 23:05 03/27/18 23:05 Intake and Output: 03/28/18 03/28/18 06:59 18:59 Intake Total 700 Output Total 900 Balance -200 - Medications Medications: Current Medications Docusate Sodium (Colace) 100 mg PO DAILY PRN PRN Reason: Constipation Last Admin: 03/27/18 09:44 Dose: 100 mg Folic Acid (Folic Acid) 1 mg PO DAILY [facility] Last Admin: 03/27/18 09:44 Dose: 1 mg Furosemide (Lasix) 20 mg PO DAILY [facility] Last Admin: 03/27/18 09:44 Dose: 20 mg Guaifenesin (Mucinex La) 600 mg PO BID [facility] Last Admin: 03/27/18 17:11 Dose: 600 mg Lactobacillus Acidophilus (Bacid Acidophilus) 1 cap PO BID [facility] Stop: 04/20/18 10:01 Last Admin: 03/27/18 17:11 Dose: 1 cap Metoprolol Tartrate (Lopressor) 12.5 mg PO BID [facility] Last Admin: 03/27/18 17:11 Dose: 12.5 mg Multivitamins (Hexavitamin) 1 tab PO DAILY [facility] Last Admin: 03/27/18 09:44 Dose: 1 tab Simethicone (Mylicon Chew Tab) 80 mg PO QID [facility] Last Admin: 03/27/18 21:31 Dose: 80 mg Sodium Chloride (Sodium Chloride Tab) 1 gm PO BID [facility] Last Admin: 03/27/18 17:11 Dose: 1 gm Thiamine HCl (Vitamin B1 Tab) 100 mg PO BID [facility] Last Admin: 03/27/18 17:11 Dose: 100 mg Vitamin A (Vitamin A & D Oint Ud Foilpak) 1 ea TOP BID [facility] Last Admin: 03/27/18 17:11 Dose: 1 ea - Labs Labs: 03/27/18 11:21 03/27/18 11:21 PT 20.3 SECONDS (9.7-12.2) H 03/14/18 13:12 INR 1.9 03/14/18 13:12 APTT 34 SECONDS (21-34) 03/14/18 13:12
[2018-03-28 07:53] LABS: BASO # 0.1 K/uL (0.0-0.2); BASO % 1.3 % (0.0-2.0); EOS # 0.3 K/uL (0.0-0.7); EOS % 3.8 % (0.0-4.0); HEMOGLOBIN 8.7 g/dL (12.0-18.0); LYMPH # 4.2 K/uL (1.0-4.3); LYMPH % 62.2 % (20.0-40.0); MEAN CELL VOLUME 99.8 fL (80.0-94.0); MEAN CORPUSCULAR HEMOGLOBIN 34.1 pg (27.0-31.0); MEAN CORPUSCULAR HGB CONC 34.2 g/dL (33.0-37.0); MEAN PLATELET VOLUME 8.6 fL (7.2-11.7); MONO # 0.9 K/uL (0.0-0.8); MONO % 13.7 % (0.0-10.0); NEUT # 1.3 K/uL (1.8-7.0); NRBC % 0.1 % (0.0-2.0); RBC 2.55 Mil/uL (4.40-5.90); RED CELL DISTRIBUTION WIDTH 16.5 % (11.5-14.5); WHITE BLOOD COUNT 6.7 K/uL (4.8-10.8)
[2018-03-28 08:03] VITALS: BP 108/64; PULSE 77; RESP 18; TEMP 98; O2SAT 100
[2018-03-28 08:16] LABS: ALB/GLOB RATIO 0.7 (1.0-2.1); ALBUMIN 2.6 g/dL (3.5-5.0); ALT/SGPT 32 U/L (21-72); AST/SGOT 52 U/L (17-59); BLOOD UREA NITROGEN 7 mg/dL (9-20); CALCIUM 7.7 mg/dl (8.6-10.4); GFR NON-AFRICAN AMERICAN > 60
--- NOTE | 2018-03-28 11:04 | CP.PCM.DIS ---
Provider - Provider Date of Admission: 03/14/18 14:06 Attending physician: Judie Rossi DO Primary care physician: Jeny Dove. Consults: 03/14/18 15:35 Nephrology Consult Routine Comment: Consulting Provider: Eduar Taylor Consulting Physician: Eduar Taylor Reason for Consult: hyponatremia 03/17/18 11:49 Neurology Consult Routine Comment: Consulting Provider: Mateo Skelton Consulting Physician: Mateo Skelton Reason for Consult: new subdural hematoma Time Spent in preparation of Discharge (in minutes): 45 Diagnosis - Discharge Diagnosis (1) Alcohol abuse Status: Acute Comment: monitored for withdrawl. (2) Cirrhosis Status: Acute Comment: chronic (3) Hyponatremia Status: Acute Comment: nacl tabs & lasix, chronic (4) Subdural hemorrhage Status: Acute Comment: CT head obtained w/ interval scans, no changes, patient a&ox3, neurosurgery rec no intervention, neurologiy rec no intervention (5) Pneumonia Status: Acute Comment: treated w/ amoxicillian 875/125 Hospital Course - Lab Results Lab Results: Micro Results 03/19/18 04:56 Blood Blood Culture - Final NO GROWTH AFTER 5 DAYS 03/19/18 04:56 Blood Gram Stain - Final TEST NOT PERFORMED 03/19/18 04:56 Blood Blood Culture - Final NO GROWTH AFTER 5 DAYS 03/19/18 04:56 Blood Gram Stain - Final TEST NOT PERFORMED 03/19/18 13:57 Urine,Clean Catch Urine Culture - Final No Growth (<1,000 CFU/ML) Most Recent Lab Values WBC 6.7 K/uL (4.8-10.8) 03/28/18 07:42 RBC 2.55 Mil/uL (4.40-5.90) L 03/28/18 07:42 Hgb 8.7 g/dL (12.0-18.0) L 03/28/18 07:42 Hct 25.5 % (35.0-51.0) L 03/28/18 07:42 MCV 99.8 fL (80.0-94.0) H 03/28/18 07:42 MCH 34.1 pg (27.0-31.0) H 03/28/18 07:42 MCHC 34.2 g/dL (33.0-37.0) 03/28/18 07:42 RDW 16.5 % (11.5-14.5) H 03/28/18 07:42 Plt Count 184 K/uL (130-400) 03/28/18 07:42 MPV 8.6 fL (7.2-11.7) 03/28/18 07:42 Neut % (Auto) 19.0 % (50.0-75.0) L 03/28/18 07:42 Lymph % (Auto) 62.2 % (20.0-40.0) H 03/28/18 07:42 Otoe % (Auto) 13.7 % (0.0-10.0) H 03/28/18 07:42 Eos % (Auto) 3.8 % (0.0-4.0) 03/28/18 07:42 Baso % (Auto) 1.3 % (0.0-2.0) 03/28/18 07:42 Neut # (Auto) 1.3 K/uL (1.8-7.0) L 03/28/18 07:42 Lymph # (Auto) 4.2 K/uL (1.0-4.3) 03/28/18 07:42 Otoe # (Auto) 0.9 K/uL (0.0-0.8) H 03/28/18 07:42 Eos # (Auto) 0.3 K/uL (0.0-0.7) 03/28/18 07:42 Baso # (Auto) 0.1 K/uL (0.0-0.2) 03/28/18 07:42 Neutrophils % (Manual) 91 % (50-75) H 03/14/18 13:12 Band Neutrophils % 3 % (0-2) H 03/14/18 13:12 Lymphocytes % (Manual) 2 % (20-40) L 03/14/18 13:12 Monocytes % (Manual) 4 % (0-10) 03/14/18 13:12 Differential Comment 03/18/18 07:41 Platelet Estimate Slightly decreased (NORMAL) L 03/14/18 13:12 Hypochromasia (manual) Slight 03/14/18 13:12 Poikilocytosis (manual Slight 03/14/18 13:12 Anisocytosis (manual) Slight 03/14/18 13:12 PT 20.3 SECONDS (9.7-12.2) H 03/14/18 13:12 INR 1.9 03/14/18 13:12 APTT 34 SECONDS (21-34) 03/14/18 13:12 D-Dimer, Quantitative 4289 ng/mlDDU (0-243) H 03/20/18 14:12 Sodium 130 mmol/L (132-148) L 03/28/18 07:42 Potassium 3.9 mmol/L (3.6-5.2) 03/28/18 07:42 Chloride 100 mmol/L (98-107) 03/28/18 07:42 Carbon Dioxide 24 mmol/L (22-30) 03/28/18 07:42 Anion Gap 10 (10-20) 03/28/18 07:42 BUN 7 mg/dL (9-20) L 03/28/18 07:42 Creatinine 0.5 mg/dL (0.8-1.5) L 03/28/18 07:42 Est GFR ( Amer) > 60 03/28/18 07:42 Est GFR (Non-Af Amer) > 60 03/28/18 07:42 POC Glucose (mg/dL) 86 mg/dL (65-110) 03/14/18 11:54 Random Glucose 86 mg/dL (75-110) 03/28/18 07:42 Serum Osmolality 260 mosm/kg (272-300) L 03/17/18 06:30 Uric Acid 2.7 mg/dL (3.5-8.5) L 03/21/18 07:39 Calcium 7.7 mg/dl (8.6-10.4) L 03/28/18 07:42 Phosphorus 3.3 mg/dL (2.5-4.5) 03/28/18 07:42 Magnesium 1.9 mg/dL (1.6-2.3) 03/28/18 07:42 Total Bilirubin 1.7 mg/dL (0.2-1.3) H 03/28/18 07:42 AST 52 U/L (17-59) 03/28/18 07:42 ALT 32 U/L (21-72) 03/28/18 07:42 Alkaline Phosphatase 244 U/L (38-126) H D 03/28/18 07:42 Ammonia 11 umol/L (9-33) D 03/18/18 13:57 Total Creatine Kinase 51 U/L (55-170) L 03/14/18 13:12 CK-MB (Mass) 1.87 ng/mL (0.0-3.38) 03/14/18 13:12 Total Protein 6.4 g/dL (6.3-8.3) 03/28/18 07:42 Albumin 2.6 g/dL (3.5-5.0) L 03/28/18 07:42 Globulin 3.8 gm/dL (2.2-3.9) 03/28/18 07:42 Albumin/Globulin Ratio 0.7 (1.0-2.1) L 03/28/18 07:42 Lipase 397 U/L (23-300) H 03/14/18 13:12 Urine Color Mary[place] (YELLOW) 03/14/18 15:27 Urine Clarity Hazy (Clear) 03/14/18 15:27 Urine pH 5.0 (5.0-8.0) 03/14/18 15:27 Ur Specific [place] 1.014 (1.003-1.030) 03/14/18 15:27 Urine Protein 2+ mg/dL (NEGATIVE) H 03/14/18 15:27 Urine Glucose (UA) Normal mg/dL (Normal) 03/14/18 15:27 Urine Ketones Negative mg/dL (NEGATIVE) 03/14/18 15:27 Urine Blood 1+ (NEGATIVE) H 03/14/18 15:27 Urine Nitrate Negative (NEGATIVE) 03/14/18 15:27 Urine Bilirubin Negative (NEGATIVE) 03/14/18 15:27 Urine Urobilinogen 4.0 mg/dL (0.2-1.0) 03/14/18 15:27 Ur Leukocyte Esterase Neg Marina/uL (Negative) 03/14/18 15:27 Urine RBC (Auto) 6 /hpf (0-3) H 03/14/18 15:27 Ur Squamous Epith Cells 4 /hpf (0-5) 03/14/18 15:27 Amorphous Sediment Rare /ul (<OCC) H 03/14/18 15:27 Urine Bacteria Rare (<OCC) 03/14/18 15:27 Hyaline Casts 3-5 /lpf (0-2) H 03/14/18 15:27 Granular Casts (Auto) 3 /lpf (0-1) 03/14/18 15:27 Urine Osmolality 280 mosm/kg (300-1000) L 03/27/18 14:43 Ur Random Sodium 45 mmol/L 03/27/18 14:43 Urine Opiates Screen Negative (NEGATIVE) 03/14/18 15:27 Urine Methadone Screen Negative (NEGATIVE) 03/14/18 15:27 Ur Barbiturates Screen Negative (NEGATIVE) 03/14/18 15:27 Ur Phencyclidine Scrn Negative (NEGATIVE) 03/14/18 15:27 Ur Amphetamines Screen Negative (NEGATIVE) 03/14/18 15:27 U Benzodiazepines Scrn Positive (NEGATIVE) 03/14/18 15:27 U Oth Cocaine Metabols Negative (NEGATIVE) 03/14/18 15:27 U Cannabinoids Screen Negative (NEGATIVE) 03/14/18 15:27 Alcohol, Quantitative < 10 mg/dl (0-10) 03/14/18 13:12 Influenza Typ A,B (EIA) Negative for flu a/b (NEGATIVE) 03/19/18 17:33 - Hospital Course Hospital Course: 57 yr male w/ PMHx: HTN, subdural hematoma, lice, thrombocytopenia, anemia, ETOH abuse, liver cirrhosis, pneumonia, recently admitted for a subdural hematoma (02/27) and signed out AMA on 03/13/18 returns to ED for unsteady gait. Patient was recommended for TCU placement by physical therapy yesterday due to his unsteady gait 2/2 to his ETOH abuse; however, patient was adamant that he did not want TCU and wanted to signout AMA. After signing out AMA, patient was transported to his friends home, where he states he realized he cannot ambulate himself. Patient states he managed to get on a train to [facility] to purchase ETOH. Patient states he had some ETOH overnight where he was seen at [facility]; however, per EMR review, patient was seen in the ED overnight, here at [facility] for ETOH intoxication. Patient states he was no longer wants to drink and would like assistance in getting stronger and states he will go to a TCU/ rehab per recommendations of the medicine team/ physical therapy. Patient states he has no other complaints. Patient denies chest pain, SOB, abdominal pain, nausea, vomiting, leg pain, numbness/ tinging in all 4 extremities, headaches, vision changes, dysuria, hematuria. During hospital stay, patient remained hyponatremic in the 120s, likely chronic. His chronic conditions were medically maintained and optimized. U/S of extremties showed no DVT, CTA showed no PE. Interval CT head showed no increase in new subdural found at admission. Patient received physical therapy that recommended rolling walker. Multiple attempts were made for patient to live with family as patient is homeless and was not a safe discharge to residential dueto his walker not being accept. He refused and stated he would continue to live around [place]. Additionally multiple attempts were made to encourage patient for cessation of ETOH but he continually stated he will try. For multiple days patient stated he will sign out AMA. Today, 03/28 patient stated he wanted to sign out AMA. Patient informed the risks of leaving, considering his underlying unsteady gait. Patient stated he understood and was A&OX3 at time AMA form was signed. All attempts were made both in Pashto and Gujarati, as he spoke both languages. Below are the instructions provided to patient upon signout of AGAINST MEDICAL ADVICE. You are signing out AGAINST MEDICAL ADVICE. Please see the following instructions that are being provided to you. Please take the following medications: 1) Augmentin 875/125, 1 tab by mouth 2x day (8am & 8pm) 2) Metoprolol tartrate 12.5 mg, 1 tab by mouth 2x day (8am & 8pm) 3) Aspirin 81 mg, 1 tab by mouth 1x day (8am) 4) Lactobicillus, cap, 1 tab by mouth 2x day (10am & 6pm) 5) Multivitamin 1 tablet per mouth 1x day The above medications were provided at previous visit and confirmed the patient has them and should start/continue taking them. 6) Lasix 20 mg 1 tab by mouth 1x day (8am) 7) Sodium Chloride tab 1 tablet 2x day (8am & 8pm) Additionally, the above 2 medications are being prescribed at this time. The Lasix is being provided to you at time of discharge. You will receive a prescription for the sodium chloride tablets. You must fill them at your pharmacy at your choice and take them as prescribed. Schedule a follow up with neurosurgeon Dr. Jovanni Peace by [phone] Appoint should be in 7 days. Follow up with your primary care physician, Jeny Palacios in 7 days or the [facility] at [phone] in 7 days Call [phone] for help quitting to drink Please abstain from drugs & alcohol. If any of the symptoms arise or worsen that had you hospitalized, please return to your nearest emergency facility. Please take care. Discharge Exam - Head Exam Head Exam: NORMAL INSPECTION - Eye Exam Eye Exam: EOMI, Normal appearance Pupil Exam: NORMAL ACCOMODATION - ENT Exam ENT Exam: Mucous Membranes Moist - Neck Exam Neck exam: Full Rom - Respiratory Exam Respiratory Exam: Clear to PA & Lateral, UNREMARKABLE. absent: Rales, Rhonchi, Wheezes - Cardiovascular Exam Cardiovascular Exam: +S1, +S2. absent: Systolic Murmur - GI/Abdominal Exam GI & Abdominal Exam: Normal Bowel Sounds, Soft. absent: Rigid - Extremities Exam Extremities exam: pedal pulses present Additional comments: no calf tenderness, none to trace pedal edema resting hand tremor - Back Exam Back exam: absent: CVA tenderness (L), CVA tenderness (R) - Neurological Exam Neurological exam: Alert, Oriented x3 Additional comments: unsteady gait - Psychiatric Exam Psychiatric exam: Normal Affect, Normal Mood - Skin Additional comments: hyperpigmented B/L lower extremities, consistent w/ peripheral vascular disease Discharge Plan - Discharge Medications Prescriptions: Furosemide [Lasix] 20 mg PO DAILY #30 tab Sodium Chloride [Sodium Chloride Tab] 1 gm PO BID #28 tab - Follow Up Plan Condition: STABLE Disposition: AGAINST MEDICAL ADVICE Instructions: Pneumonia, Adult (DC), Cirrhosis (DC), Alcohol Abuse and Alcoholism (DC), Subdural Hematoma (DC) Additional Instructions: You are signing out AGAINST MEDICAL ADVICE. Please see the following instructions that are being provided to you. Please take the following medications: 1) Augmentin 875/125, 1 tab by mouth 2x day (8am & 8pm) 2) Metoprolol tartrate 12.5 mg, 1 tab by mouth 2x day (8am & 8pm) 3) Aspirin 81 mg, 1 tab by mouth 1x day (8am) 4) Lactobicillus, cap, 1 tab by mouth 2x day (10am & 6pm) 5) Multivitamin 1 tablet per mouth 1x day The above medications were provided at previous visit and confirmed the patient has them and should start/continue taking them. 6) Lasix 20 mg 1 tab by mouth 1x day (8am) 7) Sodium Chloride tab 1 tablet 2x day (8am & 8pm) Additionally, the above 2 medications are being prescribed at this time. The Lasix is being provided to you at time of discharge. You will receive a prescription for the sodium chloride tablets. You must fill them at your pharmacy at your choice and take them as prescribed. Schedule a follow up with neurosurgeon Dr. Jovanni Peace by [phone] Appoint should be in 7 days. Follow up with your primary care physician, Jeny Palacios in 7 days or the [facility] at [phone] in 7 days Call [phone] for help quitting to drink Please abstain from drugs & alcohol. If any of the symptoms arise or worsen that had you hospitalized, please return to your nearest emergency facility. Please take care. Referrals: Eduar Taylor MD [Staff Provider] - Mateo Skelton MD [Staff Provider] -
== END 2018-03-28 10:50 | disposition left against medical advice (07) | DRG 533 ==
LOC: C.ER 11:41 → C.9E 14:06 → C.5S 19:13
PROVIDERS: ADMIT Hospitalist; ATTEND Hospitalist
DX: S06.5X9A Traumatic subdural hemorrhage with loss of consciousness of unspecified duration, initial encounter (principal); J18.9 Pneumonia, unspecified organism; J96.00 Acute respiratory failure, unspecified whether with hypoxia or hypercapnia; E22.2 Syndrome of inappropriate secretion of antidiuretic hormone; G96.0 Cerebrospinal fluid leak; K70.30 Alcoholic cirrhosis of liver without ascites; F10.229 Alcohol dependence with intoxication, unspecified; I10 Essential (primary) hypertension; G25.0 Essential tremor; D64.9 Anemia, unspecified; Y90.0 Blood alcohol level of less than 20 mg/100 ml; Z87.891 Personal history of nicotine dependence; Z59.0 Homelessness; Z87.01 Personal history of pneumonia (recurrent); Z91.81 History of falling

== ENCOUNTER 2018-04-05 22:42 | Emergency (ER) | payer MEDICAID ==
[2018-04-05 22:49] VITALS: O2SAT 98
--- NOTE | 2018-04-05 23:35 | C.PDOC ---
History Of Present Illness 57 year old male brought in via EMS for ETOH intoxication. Patient states he cannot walk at this time and has "leg problems" with chronic edema. Denies any other complaints at this time. <Miguel Lu - Last Filed: 04/06/18 01:14> History Per: Patient, EMS History/Exam Limitations: no limitations Onset/Duration Of Symptoms: Hrs Current Symptoms Are (Timing): Still Present Suicide/Self Injury Attempted (Context): None Modifying Factor(s): Alcohol Involuntary Hold By: None Recent travel outside of the [place]: No <Miguel Lu - Last Filed: 04/06/18 01:14> <Donn Mclean - Last Filed: 04/06/18 05:56> Time Seen by Provider: 04/05/18 22:57 Chief Complaint (Nursing): Substance Abuse Past Medical History Reviewed: Historical Data, Nursing Documentation, Vital Signs Vital Signs: Last Vital Signs Temp 97.3 F L 04/05/18 22:47 Pulse 81 04/05/18 22:47 Resp 16 04/05/18 22:47 BP 112/73 04/05/18 22:47 Pulse Ox 98 04/05/18 22:47 - Medical History PMH: HTN, Pneumonia - [facility] Procedures DRAINAGE OF LEFT PLEURAL CAVITY, PERCUTANEOUS APPROACH (02/27/18) INSERTION OF ENDOTRACHEAL AIRWAY INTO TRACHEA, VIA OPENING (02/27/18) INSERTION OF INFUSION DEV INTO L SUBCLAV VEIN, PERC APPROACH (02/27/18) RESPIRATORY VENTILATION, GREATER THAN 96 CONSECUTIVE HOURS (02/27/18) Family History: States: Unknown Family Hx - Social History Hx Tobacco Use: No Hx Alcohol Use: Yes Hx Substance Use: No - Immunization History Hx Tetanus Toxoid Vaccination: No Hx Influenza Vaccination: No Hx Pneumococcal Vaccination: No <Miguel Lu - Last Filed: 04/06/18 01:14> Vital Signs: Last Vital Signs Temp 98.2 F 04/06/18 04:16 Pulse 72 04/06/18 04:16 Resp 20 04/06/18 04:16 BP 118/74 04/06/18 04:16 Pulse Ox 98 04/06/18 04:16 - [facility] Procedures DRAINAGE OF LEFT PLEURAL CAVITY, PERCUTANEOUS APPROACH (02/27/18) INSERTION OF ENDOTRACHEAL AIRWAY INTO TRACHEA, VIA OPENING (02/27/18) INSERTION OF INFUSION DEV INTO L SUBCLAV VEIN, PERC APPROACH (02/27/18) RESPIRATORY VENTILATION, GREATER THAN 96 CONSECUTIVE HOURS (02/27/18) <Donn Mclean - Last Filed: 04/06/18 05:56> Review Of Systems Except As Marked, All Systems Reviewed And Found Negative. Constitutional: Positive for: Other (ETOH intoxication) <Miguel Lu - Last Filed: 04/06/18 01:14> Physical Exam - Physical Exam Additional Physical Exam Comments: Gen: VS reviewed, alert, well developed, well nourished, nontoxic, mild distress, intoxicated Eye: EOMI, PERRL Neck: no JVD, supple, no adenopathy CV: regular rate, regular rhythm, no rubs,no murmur, S1, S2 Pulm: no distress, clear to auscultation, no wheeze, no rhonchi, breath sounds equal, no rales Abd: soft, nontender, no guarding, no rebound, no rigidity Ext: no edema Skin: good color, no rash, no cyanosis Psych: responds appropriately to questions, normal affect Neuro: oriented x3, CN2-12 intact grossly, motor intact, sensation intact, slurred speech <Miguel Lu - Last Filed: 04/06/18 01:14> ED Course And Treatment O2 Sat by Pulse Oximetry: 98 <Miguel Lu - Last Filed: 04/06/18 01:14> Medical Decision Making Medical Decision Making: patient seen for alcohol intoxication, patient does not exhibit any s/s of alcohol withdrawal, no physical evidence of trauma. will observe to clinical sobriety. 1:[address] mclean, pending clinical observation and final disposition <Miguel Lu - Last Filed: 04/06/18 01:14> Disposition <Miguel Lu - Last Filed: 04/06/18 01:14> Counseled Patient/Family Regarding: Diagnosis - Disposition Disposition Time: 06:20 - POA Present On Arrival: None <Donn Mclean - Last Filed: 04/06/18 05:56> - Disposition Referrals: [facility] [Outside] Condition: STABLE Instructions: Alcohol Abuse and Alcoholism (DC) Forms: [facility] (Slovak) - Clinical Impression Clinical Impression: Alcohol intoxication, Alcohol abuse - Scribe Statement The provider has reviewed the documentation as recorded by the Scribe Gustavo Alonzo All medical record entries made by the Scribe were at my direction and personally dictated by me. I have reviewed the chart and agree that the record accurately reflects my personal performance of the history, physical exam, medical decision making, and the department course for this patient. I have also personally directed, reviewed, and agree with the discharge instructions and disposition. <Miguel Lu - Last Filed: 04/06/18 01:14>
[2018-04-06 04:19] VITALS: BP 118/74; PULSE 72; TEMP 98.2
[2018-04-06 06:42] VITALS: RESP 18
== END 2018-04-06 06:33 | disposition home or self-care (01) ==
LOC: C.ER 22:42
DX: F10.129 Alcohol abuse with intoxication, unspecified (principal)

== ENCOUNTER 2018-04-06 10:27 | Inpatient (IN) | payer MEDICAID ==
[2018-04-06] MEDS ORDERED: Thiamine 100 mg/ml Inj IV ONE (10:42)
[2018-04-06] MEDS ORDERED: Tdap Vaccine 0.5 ml Vial (10-64 yrs) IM ONE ×2 (10:47→11:33)
[2018-04-06] MEDS ORDERED: Lidocaine 1% Inj (20ml) INFIL ONE (10:47)
[2018-04-06] MEDS ORDERED: Lidocaine 2% w Epi 1:100,000 Inj IJ ONE ×2 (10:54→11:00)
--- NOTE | 2018-04-06 11:23 | C.PDOC ---
History Of Present Illness 57 y/o male brought to ER by EMS for evaluation after he was found outside with half-filled bottle of vodka. Patient is slow to arousal. Patient has laceration to the right eyebrow region. He has temperature 88 F upon arrival to ER. Denies having fever, chills, CP, SOB, nausea,vomiting, and other complaints at this time. Time Seen by Provider: 04/06/18 10:35 Chief Complaint (Nursing): Substance Abuse History Per: Patient History/Exam Limitations: no limitations Past Medical History Reviewed: Historical Data, Nursing Documentation, Vital Signs Vital Signs: Last Vital Signs Temp 88.1 F L 04/06/18 10:53 Pulse 70 04/06/18 10:32 Resp 16 04/06/18 10:32 BP 107/66 04/06/18 10:32 Pulse Ox 100 04/06/18 10:32 - Medical History PMH: HTN, Pneumonia Surgical History: No Surg Hx - [facility] Procedures DRAINAGE OF LEFT PLEURAL CAVITY, PERCUTANEOUS APPROACH (02/27/18) INSERTION OF ENDOTRACHEAL AIRWAY INTO TRACHEA, VIA OPENING (02/27/18) INSERTION OF INFUSION DEV INTO L SUBCLAV VEIN, PERC APPROACH (02/27/18) RESPIRATORY VENTILATION, GREATER THAN 96 CONSECUTIVE HOURS (02/27/18) Family History: States: No Known Family Hx - Social History Hx Tobacco Use: No Hx Alcohol Use: Yes Hx Substance Use: No - Immunization History Hx Tetanus Toxoid Vaccination: No Hx Influenza Vaccination: No Hx Pneumococcal Vaccination: No Review Of Systems Except As Marked, All Systems Reviewed And Found Negative. Constitutional: Negative for: Fever, Chills Cardiovascular: Negative for: Chest Pain Respiratory: Negative for: Shortness of Breath Gastrointestinal: Negative for: Nausea, Vomiting Physical Exam - Physical Exam Appears: No Acute Distress Skin: Normal Color, Warm, Dry Head: Normacephalic, Laceration (3 cm laceration to right eyebrow) Eye(s): bilateral: Normal Inspection Nose: Normal Oral Mucosa: Moist Neck: Supple Chest: Symmetrical Cardiovascular: Rhythm Regular Respiratory: Normal Breath Sounds, No Rales, No Rhonchi, No Wheezing Gastrointestinal/Abdominal: Normal Exam, Soft, No Tenderness, No Guarding, No Rebound Extremity: Normal ROM, Other (2+ pitting edema) Neurological/Psych: Oriented x3, Normal Speech ED Course And Treatment - Laboratory Results Result Diagrams: 04/06/18 11:33 04/06/18 11:33 ECG: Interpreted By Me, Viewed By Me ECG Rhythm: Sinus Rhythm Interpretation Of ECG: NSR with normal intervals, right axis deviation, artifact, and no ST/ T wave abnormalities Rate From EC O2 Sat by Pulse Oximetry: 100 (RA) Pulse Ox Interpretation: Normal - CT Scan/US CT-Head Other Rad Studies (CT/US): Read By Radiologist, Radiology Report Reviewed CT/US Interpretation: Date of service: 04/06/2018. PROCEDURE: CT HEAD WITHOUT CONTRAST. HISTORY: Head injury. COMPARISON: Comparison made with prior CT scan 03/22/2018. TECHNIQUE: Axial computed tomography images were obtained through the head/brain without intravenous contrast. Radiation dose: Total exam DLP = 848.49 mGy-cm. This CT exam was performed using one or more of the following dose reduction techniques: Automated exposure control, adjustment of the mA and/or kV according to patient size, and/or use of iterative reconstruction technique. FINDINGS: HEMORRHAGE: There is a relatively large hypodense subdural collection which overlies most of the right cerebral hemisphere. Smaller hypodense chronic right-sided collection exerts moderate mass effect with moderate compression of the right cerebral hemisphere including the frontal and to a slightly lesser degree temporal parietal regions.. There is mild compression of the right lateral ventricle and persistent slight shift of the septum pellucidum from right to left estimated approximately 3.6 mm. The left-sided collection exerts mild mass effect.. Prominent posterior fossa suba rachnoid spaces. BRAIN: Suspect minimal chronic periventricular white matter ischemic changes. VENTRICLES: No obstructive hydrocephalus. CALVARIUM: Calvarium intact.. There appears to be mild bilateral lateral periorbital soft tissue swelling right greater than left. PARANASAL SINUSES: Unremarkable as visualize head. No significant inflammatory changes. MASTOID AIR CELLS: Unremarkable as visualized. No inflammatory changes. OTHER FINDINGS: None. IMPRESSION: No acute intracranial hemorrhage. There appears to be mild bilateral lateral periorbital soft tissue swelling right greater than left. Moderately large right-sided hypodense subdural collection which exerts persistent mass effect and persistent mild right left midline shift as described. Smaller chronic left-sided subdural hematoma is again noted as well with minor mass-effect.. Mild chronic periventricular white matter ischemic changes. Critical Care Time - Critical Care Note Total Time (in mins): 45 Documented critical care: time excludes all time spent performing seperately billable procedures. Laceration - Laceration Repair Right Eyebrow Wound Length (In cm): 3 cm Description Of Wound: Linear Wound Cleansed With: Betadine, Sterile Saline Anesthesia: Lidocaine 2%, With Epi Wound Examination: Irrigated With Saline, No FB With Wound Exploration Wound Closure: Suture Suture Technique And Material Used: Nylon (4 sutures 5-0 nylon) Wound Complexity: Simple Medical Decision Making Medical Decision Making: Assessment: Hypothermia,ETOH abuse, Facial Laceration Plan: --Labs --ECG --CXR --UA --CT-Head Updates: Laceration repair performed. Patient tolerated well. 13:06 Case discussed with , hospitalist. Patient has been admitted to Telemetry. Disposition Discussed With DrLuigi: Judie Rossi Doctor Will See Patient In The: Hospital Counseled Patient/Family Regarding: Studies Performed, Diagnosis - Disposition Disposition: HOSPITALIZED Disposition Time: 13:06 Condition: FAIR Forms: [facility] (Kiswahili) - Clinical Impression Clinical Impression: Alcohol intoxication, Subdural hemorrhage, Hypothermia - Scribe Statement The provider has reviewed the documentation as recorded by the Augustoibe Kyra Narvaez Provider Attestation: All medical record entries made by the Scribe were at my direction and personally dictated by me. I have reviewed the chart and agree that the record accurately reflects my personal performance of the history, physical exam, medical decision making, and the department course for this patient. I have also personally directed, reviewed, and agree with the discharge instructions and disposition.
[2018-04-06] MEDS ORDERED: Thiamine 100 mg/ml Inj ONE (11:33)
[2018-04-06 11:38] LABS: BASO # 0.1 K/uL (0.0-0.2); BASO % 0.8 % (0.0-2.0); EOS % 0.6 % (0.0-4.0); HEMOGLOBIN 9.7 g/dL (12.0-18.0); LYMPH # 4.3 K/uL (1.0-4.3); LYMPH % 65.6 % (20.0-40.0); MEAN CORPUSCULAR HEMOGLOBIN 32.5 pg (27.0-31.0); MEAN CORPUSCULAR HGB CONC 33.8 g/dL (33.0-37.0); MEAN PLATELET VOLUME 7.8 fL (7.2-11.7); MONO # 0.4 K/uL (0.0-0.8); MONO % 6.4 % (0.0-10.0); NEUT # 1.8 K/uL (1.8-7.0); NEUT % 26.6 % (50.0-75.0); NRBC % 0.1 % (0.0-2.0); RBC 2.98 Mil/uL (4.40-5.90); RED CELL DISTRIBUTION WIDTH 15.8 % (11.5-14.5); WHITE BLOOD COUNT 6.6 K/uL (4.8-10.8)
[2018-04-06 11:45] LABS: INR 1.5
[2018-04-06 11:55] LABS: ALB/GLOB RATIO 0.8 (1.0-2.1); ALBUMIN 3.4 g/dL (3.5-5.0); ALT/SGPT 43 U/L (21-72); AST/SGOT 106 U/L (17-59); BLOOD UREA NITROGEN 3 mg/dL (9-20); GFR NON-AFRICAN AMERICAN > 60
[2018-04-06 12:02] LABS: B-TYPE NATRIURETIC PEPTIDE 66.5 pg/mL (0-900)
--- NOTE | 2018-04-06 12:28 | CT ---
Date of service: 04/06/2018 PROCEDURE: CT HEAD WITHOUT CONTRAST. HISTORY: Head injury COMPARISON: Comparison made with prior CT scan 03/22/2018. TECHNIQUE: Axial computed tomography images were obtained through the head/brain without intravenous contrast. Radiation dose: Total exam DLP = 848.49 mGy-cm. This CT exam was performed using one or more of the following dose reduction techniques: Automated exposure control, adjustment of the mA and/or kV according to patient size, and/or use of iterative reconstruction technique. FINDINGS: HEMORRHAGE: There is a relatively large hypodense subdural collection which overlies most of the right cerebral hemisphere. Smaller hypodense chronic right-sided collection exerts moderate mass effect with moderate compression of the right cerebral hemisphere including the frontal and to a slightly lesser degree temporal parietal regions.. There is mild compression of the right lateral ventricle and persistent slight shift of the septum pellucidum from right to left estimated approximately 3.6 mm. The left-sided collection exerts mild mass effect.. Prominent posterior fossa subarachnoid spaces. BRAIN: Suspect minimal chronic periventricular white matter ischemic changes. VENTRICLES: No obstructive hydrocephalus. CALVARIUM: Calvarium intact.. There appears to be mild bilateral lateral periorbital soft tissue swelling right greater than left. PARANASAL SINUSES: Unremarkable as visualize head. No significant inflammatory changes. MASTOID AIR CELLS: Unremarkable as visualized. No inflammatory changes. OTHER FINDINGS: None. IMPRESSION: No acute intracranial hemorrhage. There appears to be mild bilateral lateral periorbital soft tissue swelling right greater than left. Moderately large right-sided hypodense subdural collection which exerts persistent mass effect and persistent mild right left midline shift as described. Smaller chronic left-sided subdural hematoma is again noted as well with minor mass-effect.. Mild chronic periventricular white matter ischemic changes.
[2018-04-06 13:26] LABS: BARBITURATES, UR NEGATIVE (NEGATIVE); BENZODIAZEPINES, UR NEGATIVE (NEGATIVE); OPIATES, UR NEGATIVE (NEGATIVE); PHENCYCLIDINE, UR NEGATIVE (NEGATIVE)
--- NOTE | 2018-04-06 13:45 | CP.PCM.HP ---
<Eddie Arellano - Last Filed: 04/06/18 16:21> History of Present Illness - History of Present Illness History of Present Illness: Eddie Arellano PGY1 H&P for Dr. Davison 57 yr male w/ PMHx HTN, subdural hematoma, lice, thrombocytopenia, anemia, ETOH abuse, liver cirrhosis, pneumonia, recently admitted for a subdural hematoma 03/14 and signed out AMA 03/28 brought to ED after being found on the street with a bottle of vodka. Pt denies pain at this time, but is not verbally res ponsive to questions. He is sleepy but arrousable. Full history and ROS are unattainable at this time. SxH: None SocH: Extensive hx of ETOH abuse FHx: unknown Meds: unknown Allergies: NKDA PMD: Sonya Dove Present on Admission - Present on Admission Any Indicators Present on Admission: No Review of Systems - Review of Systems Systems not reviewed;Unavailable: Intoxicated, Uncooperative Past Patient History - Infectious Disease Hx of Infectious Diseases: None - Past Medical History & Family History Past Medical History?: No - Past Social History Smoking Status: Unknown If Ever Smoked - CARDIAC Hx Hypertension: Yes - PULMONARY Hx Pneumonia: Yes - MUSCULOSKELETAL/RHEUMATOLOGICAL Hx Musculoskeletal Disorders: Yes Hx Falls: Yes - GASTROINTESTINAL Hx Liver Failure: Yes - PSYCHIATRIC Hx Substance Use: No - SURGICAL HISTORY Hx Surgeries: No - ANESTHESIA Hx Anesthesia: No Meds Allergies/Adverse Reactions: Allergies Allergy/AdvReac Type Severity Reaction Status Date / Time No Known Allergies Allergy Verified 04/06/18 10:35 Physical Exam - Constitutional Appears: Unkempt - Head Exam Additional comments: laceration under R eyebrow with sutures clean, dry, intact. minimal surrounding erythema. no drainage. - Eye Exam Eye Exam: Normal appearance - ENT Exam ENT Exam: Mucous Membranes Dry - Neck Exam Neck exam: Positive for: Normal Inspection - Respiratory Exam Respiratory Exam: Clear to Auscultation Bilateral, NORMAL BREATHING PATTERN. absent: Rales, Rhonchi, Wheezes - Cardiovascular Exam Cardiovascular Exam: REGULAR RHYTHM, +S1, +S2. absent: Gallop, Rubs, Systolic Murmur - GI/Abdominal Exam GI & Abdominal Exam: Distended, Normal Bowel Sounds, Soft. absent: Firm, Tenderness - Extremities Exam Extremities exam: Positive for: pedal edema - Neurological Exam Neurological exam: Altered Results - Vital Signs Recent Vital Signs: Last Vital Signs Temp 89.0 F L 04/06/18 12:52 Pulse 69 04/06/18 11:48 Resp 16 04/06/18 11:48 BP 106/69 04/06/18 11:48 Pulse Ox 100 04/06/18 13:11 - Labs Result Diagrams: 04/06/18 11:33 04/06/18 11:33 Labs: Laboratory Results - last 24 hr 04/06/18 04/06/18 04/06/18 10:30 11:33 11:33 WBC 6.6 RBC 2.98 L Hgb 9.7 L Hct 28.6 L MCV 96.0 H D MCH 32.5 H MCHC 33.8 RDW 15.8 H Plt Count 150 MPV 7.8 Neut % (Auto) 26.6 L Lymph % (Auto) 65.6 H [place] % (Auto) 6.4 Eos % (Auto) 0.6 Baso % (Auto) 0.8 Neut # (Auto) 1.8 Lymph # (Auto) 4.3 [place] # (Auto) 0.4 Eos # (Auto) 0.0 Baso # (Auto) 0.1 PT 16.0 H INR 1.5 APTT 42 H Sodium Potassium Chloride Carbon Dioxide Anion Gap BUN Creatinine Est GFR ( Amer) Est GFR (Non-Af Amer) POC Glucose (mg/dL) 145 H Random Glucose Calcium Magnesium Total Bilirubin AST ALT Alkaline Phosphatase Troponin I NT-Pro-B Natriuret Pep Total Protein Albumin Globulin Albumin/Globulin Ratio TSH 3rd Generation Urine Opiates Screen Urine Methadone Screen Ur Barbiturates Screen Ur Phencyclidine Scrn Ur Amphetamines Screen U Benzodiazepines Scrn U Oth Cocaine Metabols U Cannabinoids Screen Alcohol, Quantitative 04/06/18 04/06/18 11:33 12:49 WBC RBC Hgb Hct MCV MCH MCHC RDW Plt Count MPV Neut % (Auto) Lymph % (Auto) [place] % (Auto) Eos % (Auto) Baso % (Auto) Neut # (Auto) Lymph # (Auto) [place] # (Auto) Eos # (Auto) Baso # (Auto) PT INR APTT Sodium 134 Potassium 4.2 Chloride 99 Carbon Dioxide 24 Anion Gap 16 BUN 3 L Creatinine 0.3 L Est GFR ( Amer) > 60 Est GFR (Non-Af Amer) > 60 POC Glucose (mg/dL) Random Glucose 137 H D Calcium 8.0 L Magnesium 1.6 Total Bilirubin 1.7 H AST 106 H D ALT 43 Alkaline Phosphatase 426 H D Troponin I 0.0250 NT-Pro-B Natriuret Pep 66.5 Total Protein 7.6 Albumin 3.4 L D Globulin 4.2 H Albumin/Globulin Ratio 0.8 L TSH 3rd Generation 3.14 Urine Opiates Screen Negative Urine Methadone Screen Negative Ur Barbiturates Screen Negative Ur Phencyclidine Scrn Negative Ur Amphetamines Screen Negative U Benzodiazepines Scrn Negative U Oth Cocaine Metabols Negative U Cannabinoids Screen Negative Alcohol, Quantitative 414 H Assessment & Plan - Assessment and Plan (Free Text) Assessment: Pt is a 57yo M with PMH of brought to ED after being found intoxicated on the street with a bottle of vodka. Admitted for hypothermia and etoh intoxication. Plan: Hypothermia - likely secondary to staying outdoors - r/o infectious cause - T 88.1 in ED - bear hug warming blanket - NS @100cc/hr - f/u UA, BCx Subdural Hematoma - CT head: No acute intracranial hemorrhage. mild b/l periorbital soft tissue swelling R>L. Moderately large hypodense R subdural collection w/ mass effect and midline shift. Smaller chronic L subdural hematoma is again noted as well with minor mass-effect. Mild chronic periventricular white matter ischemic changes. - unchanged from hematoma on prior admission - no surgical intervention advised on prior admission EtoH Intoxication - long standing etoh history - alcohol level 414 - UDS negative - WA protocol - fall precautions - seizure precautions - ativan 2mg q4h PRN - banana bag Transaminitis - AST 106, ALT 43, Alk Phos 426 - likely secondary to etoh - continue to monitor Laceration, R eyebrow - s/p lac repair, 4 sutures PPX GI: pepcid DVT: lovenox HHD Pt seen and case reviewed by Dr. Davison <Thea Davison - Last Filed: 04/06/18 17:11> Results - Vital Signs Recent Vital Signs: Last Vital Signs Temp 97.2 F L 04/06/18 15:55 Pulse 79 04/06/18 15:55 Resp 20 04/06/18 15:55 BP 106/67 04/06/18 15:55 Pulse Ox 100 04/06/18 15:55 - Labs Result Diagrams: 04/06/18 11:33 04/06/18 11:33 Labs: Laboratory Results - last 24 hr 04/06/18 04/06/18 04/06/18 10:30 11:33 11:33 WBC 6.6 RBC 2.98 L Hgb 9.7 L Hct 28.6 L MCV 96.0 H D MCH 32.5 H MCHC 33.8 RDW 15.8 H Plt Count 150 MPV 7.8 Neut % (Auto) 26.6 L Lymph % (Auto) 65.6 H [place] % (Auto) 6.4 Eos % (Auto) 0.6 Baso % (Auto) 0.8 Neut # (Auto) 1.8 Lymph # (Auto) 4.3 [place] # (Auto) 0.4 Eos # (Auto) 0.0 Baso # (Auto) 0.1 PT 16.0 H INR 1.5 APTT 42 H pO2 VBG pH VBG pCO2 VBG HCO3 VBG Total CO2 VBG O2 Sat (Calc) VBG Base Excess VBG Potassium Glucose Lactate Sodium Potassium Chloride Carbon Dioxide Anion Gap BUN Creatinine Est GFR ( Amer) Est GFR (Non-Af Amer) POC Glucose (mg/dL) 145 H Random Glucose Calcium Magnesium Total Bilirubin AST ALT Alkaline Phosphatase Troponin I NT-Pro-B Natriuret Pep Total Protein Albumin Globulin Albumin/Globulin Ratio TSH 3rd Generation Venous Blood Potassium Urine Opiates Screen Urine Methadone Screen Ur Barbiturates Screen Ur Phencyclidine Scrn Ur Amphetamines Screen U Benzodiazepines Scrn U Oth Cocaine Metabols U Cannabinoids Screen Alcohol, Quantitative 04/06/18 04/06/18 04/06/18 11:33 12:49 14:25 WBC RBC Hgb Hct MCV MCH MCHC RDW Plt Count MPV Neut % (Auto) Lymph % (Auto) [place] % (Auto) Eos % (Auto) Baso % (Auto) Neut # (Auto) Lymph # (Auto) [place] # (Auto) Eos # (Auto) Baso # (Auto) PT INR APTT pO2 48 VBG pH 7.35 VBG pCO2 46 VBG HCO3 24.0 VBG Total CO2 26.8 VBG O2 Sat (Calc) 84.6 H VBG Base Excess -0.6 L VBG Potassium 4.0 Glucose 91 Lactate 2.3 H Sodium 134 141.0 Potassium 4.2 Chloride 99 112.0 H Carbon Dioxide 24 Anion Gap 16 BUN 3 L Creatinine 0.3 L Est GFR ( Amer) > 60 Est GFR (Non-Af Amer) > 60 POC Glucose (mg/dL) Random Glucose 137 H D Calcium 8.0 L Magnesium 1.6 Total Bilirubin 1.7 H AST 106 H D ALT 43 Alkaline Phosphatase 426 H D Troponin I 0.0250 NT-Pro-B Natriuret Pep 66.5 Total Protein 7.6 Albumin 3.4 L D Globulin 4.2 H Albumin/Globulin Ratio 0.8 L TSH 3rd Generation 3.14 Venous Blood Potassium 4.0 Urine Opiates Screen Negative Urine Methadone Screen Negative Ur Barbiturates Screen Negative Ur Phencyclidine Scrn Negative Ur Amphetamines Screen Negative U Benzodiazepines Scrn Negative U Oth Cocaine Metabols Negative U Cannabinoids Screen Negative Alcohol, Quantitative 414 H Attending/Attestation - Attestation I have personally seen and examined this patient.: Yes I have fully participated in the care of the patient.: Yes I have reviewed all pertinent clinical information: Yes Notes (Text): Seen and examined by me in the ER patient is arousable,denies pain, No fever,no signs of infection,Chest xay resolving pneumonia. Hypothermic likely due to be in the cold drunk-improving continue bear hugger/ warm blanket monitor temp Evaluated by ICU for hypothermia and hypotension. His BP is improving continue IV fluids,thiamine and folic acid. assessment and the plan discussed with the resident Patient is homeless d/w daughter Peri. She did paper work to renew MEDICAID -pending
[2018-04-06 14:41] LABS: VENOUS BLOOD GAS BASE EXCESS -0.6 mmol/L (0.0-2.0); VENOUS BLOOD GAS PCO2 46 mmHg (40-60); VENOUS BLOOD GAS PO2 48 mm/Hg (30-55); VENOUS BLOOD PH 7.35 (7.32-7.43)
[2018-04-06] MEDS: Sodium Chloride 0.9% 1,000 ML IV SCH (15:00)
[2018-04-06] MEDS ORDERED: Folic Acid 1 MG, Thiamine 100 MG, Multivitamin (MVI) 10 ML in Dextrose 5% In Water 1,00... IV SCH (15:30)
--- NOTE | 2018-04-06 15:35 | RAD ---
Date of service: 04/06/2018 PROCEDURE: CHEST RADIOGRAPH, 1 VIEW HISTORY: SOB COMPARISON: 03/19/2018 FINDINGS: LUNGS: The prior right basal opacity has cleared compatible with a a interval cleared prior infiltrate here. The overall interstitial and bronchovascular markings appear diffusely mildly increased as before elsewhere. Few scattered granulomatous changes are noted. PLEURA: No pneumothorax or pleural fluid seen. CARDIOVASCULAR: There is absence of aortic atherosclerotic calcification on x-ray. Minimal cardiomegaly suspect OSSEOUS STRUCTURES: Bilateral shoulder arthrosis. VISUALIZED UPPER ABDOMEN: Normal. OTHER FINDINGS: None. IMPRESSION: Interval resolution of the prior right basal infiltrate. Elsewhere are chronic appearing changes as noted above.
--- NOTE | 2018-04-06 16:10 | CP.PCM.CON ---
History of Present Illness - History of Present Illness History of Present Illness: PGY-1 ICU Consult Note for Dr. Lee's service Consult: Hypothermia and Hypotensive HPI: Patient is a 57 yo male w/ PMH of HTN, subdural hematoma, lice, thrombocytopenia, anemia, ETOH abuse, liver cirrhosis, pneumonia, recently admitted for a subdural hematoma 03/14 and signed out AMA 03/28 brought to ED a fter being found on the street with a bottle of vodka. On examination patient is arousable to verbal questioning. Patient is lethargic and needs time to respond to questioning. Patient did not participate completely with interview due to fatigue 2/2 increased alcohol use. Limited ROS 2/2 patient clinical condition. PMD: Sonya Dove PMHx: HTN, subdural hematoma, lice, thrombocytopenia, anemia, ETOH abuse, liver cirrhosis, pneumonia Meds: metoprolol tartrate 12.5mg BID, Augmenten 875/125 mg BID, Lactobacillus 1 cap BID, aspirin 81mg BID PSHx: None Allergies: NKDA SHx: Extensive hx of ETOH abuse FHx: unknown Review of Systems - Review of Systems Systems not reviewed;Unavailable: Acuity of Condition Past Patient History - Infectious Disease Hx of Infectious Diseases: None - Past Medical History & Family History Past Medical History?: No - Past Social History Smoking Status: Unknown If Ever Smoked - CARDIAC Hx Hypertension: Yes - PULMONARY Hx Pneumonia: Yes - MUSCULOSKELETAL/RHEUMATOLOGICAL Hx Musculoskeletal Disorders: Yes Hx Falls: Yes - GASTROINTESTINAL Hx Liver Failure: Yes - PSYCHIATRIC Hx Substance Use: No - SURGICAL HISTORY Hx Surgeries: No - ANESTHESIA Hx Anesthesia: No Meds Allergies/Adverse Reactions: Allergies Allergy/AdvReac Type Severity Reaction Status Date / Time No Known Allergies Allergy Verified 04/06/18 10:35 - Medications Medications: Current Medications Folic Acid (Folic Acid) 1 mg PO DAILY [facility] Folic Acid 1 mg/ Thiamine HCl 100 mg/ Multivitamins/Vitamin C 10 ml/ Dextrose 1,011.2 mls @ 100 mls/hr IV .Q10H7M [facility] Stop: 04/07/18 01:36 Sodium Chloride (Sodium Chloride 0.9%) 1,000 mls @ 100 mls/hr IV .Q10H [facility] Multivitamins (Hexavitamin) 1 tab PO DAILY [facility] Thiamine HCl (Vitamin B1 Tab) 100 mg PO DAILY [facility] Physical Exam - Constitutional Appears: Non-toxic, No Acute Distress, Cachectic, Chronically Ill - Head Exam Head Exam: NORMOCEPHALIC Additional comments: swelling on superior portion of both eyes left eye supraorbital region with stitches right eye supraorbital region with dried blood - Eye Exam Eye Exam: EOMI Additional comments: patient cannot completely open eye due to swelling - ENT Exam ENT Exam: Mucous Membranes Dry - Respiratory Exam Respiratory Exam: Clear to Auscultation Bilateral, NORMAL BREATHING PATTERN. absent: Rales, Rhonchi, Wheezes - Cardiovascular Exam Cardiovascular Exam: REGULAR RHYTHM, +S1, +S2. absent: Tachycardia - GI/Abdominal Exam GI & Abdominal Exam: Normal Bowel Sounds, Soft. absent: Diminished Bowel Sounds, Distended, Firm, Guarding, Tenderness - Extremities Exam Extremities exam: Positive for: normal inspection. Negative for: calf tenderness, pedal edema - Neurological Exam Neurological exam: Alert, Oriented x3 - Psychiatric Exam Psychiatric exam: Normal Mood - Skin Skin Exam: Dry, Intact, Normal Color Results - Vital Signs Recent Vital Signs: Last Vital Signs Temp 97.2 F L 04/06/18 15:55 Pulse 79 04/06/18 15:55 Resp 20 04/06/18 15:55 BP 106/67 04/06/18 15:55 Pulse Ox 100 04/06/18 15:55 - Labs Result Diagrams: 04/06/18 11:33 04/06/18 11:33 Labs: Laboratory Results - last 24 hr 04/06/18 04/06/18 04/06/18 10:30 11:33 11:33 WBC 6.6 RBC 2.98 L Hgb 9.7 L Hct 28.6 L MCV 96.0 H D MCH 32.5 H MCHC 33.8 RDW 15.8 H Plt Count 150 MPV 7.8 Neut % (Auto) 26.6 L Lymph % (Auto) 65.6 H [place] % (Auto) 6.4 Eos % (Auto) 0.6 Baso % (Auto) 0.8 Neut # (Auto) 1.8 Lymph # (Auto) 4.3 [place] # (Auto) 0.4 Eos # (Auto) 0.0 Baso # (Auto) 0.1 PT 16.0 H INR 1.5 APTT 42 H pO2 VBG pH VBG pCO2 VBG HCO3 VBG Total CO2 VBG O2 Sat (Calc) VBG Base Excess VBG Potassium Glucose Lactate Sodium Potassium Chloride Carbon Dioxide Anion Gap BUN Creatinine Est GFR ( Amer) Est GFR (Non-Af Amer) POC Glucose (mg/dL) 145 H Random Glucose Calcium Magnesium Total Bilirubin AST ALT Alkaline Phosphatase Troponin I NT-Pro-B Natriuret Pep Total Protein Albumin Globulin Albumin/Globulin Ratio TSH 3rd Generation Venous Blood Potassium Urine Opiates Screen Urine Methadone Screen Ur Barbiturates Screen Ur Phencyclidine Scrn Ur Amphetamines Screen U Benzodiazepines Scrn U Oth Cocaine Metabols U Cannabinoids Screen Alcohol, Quantitative 04/06/18 04/06/18 04/06/18 11:33 12:49 14:25 WBC RBC Hgb Hct MCV MCH MCHC RDW Plt Count MPV Neut % (Auto) Lymph % (Auto) [place] % (Auto) Eos % (Auto) Baso % (Auto) Neut # (Auto) Lymph # (Auto) [place] # (Auto) Eos # (Auto) Baso # (Auto) PT INR APTT pO2 48 VBG pH 7.35 VBG pCO2 46 VBG HCO3 24.0 VBG Total CO2 26.8 VBG O2 Sat (Calc) 84.6 H VBG Base Excess -0.6 L VBG Potassium 4.0 Glucose 91 Lactate 2.3 H Sodium 134 141.0 Potassium 4.2 Chloride 99 112.0 H Carbon Dioxide 24 Anion Gap 16 BUN 3 L Creatinine 0.3 L Est GFR ( Amer) > 60 Est GFR (Non-Af Amer) > 60 POC Glucose (mg/dL) Random Glucose 137 H D Calcium 8.0 L Magnesium 1.6 Total Bilirubin 1.7 H AST 106 H D ALT 43 Alkaline Phosphatase 426 H D Troponin I 0.0250 NT-Pro-B Natriuret Pep 66.5 Total Protein 7.6 Albumin 3.4 L D Globulin 4.2 H Albumin/Globulin Ratio 0.8 L TSH 3rd Generation 3.14 Venous Blood Potassium 4.0 Urine Opiates Screen Negative Urine Methadone Screen Negative Ur Barbiturates Screen Negative Ur Phencyclidine Scrn Negative Ur Amphetamines Screen Negative U Benzodiazepines Scrn Negative U Oth Cocaine Metabols Negative U Cannabinoids Screen Negative Alcohol, Quantitative 414 H Assessment & Plan - Assessment and Plan (Free Text) Assessment: Patient is a 57 yo male w/ PMH of HTN, subdural hematoma, lice, thrombocytopenia, anemia, ETOH abuse, liver cirrhosis, pneumonia, recently admitted for a subdural hematoma 03/14 and signed out AMA 03/28 brought to ED after being found on the street with a bottle of vodka. On admission 414 alcohol quant. On admission vital signs showed hypothermia with temperature of 88.1. In ED patient was put on bearhugger and patient became hypotensive after likely 2/2 to vasodilation. Most recent blood pressure shows 106/67. Patient can remain on floors on telemetry. Recommendations NS Thiamine/Folate/Multivitamins CIWA protocol; Seizure precautions; Fall precautions; Ativan prn Continue bearhugger Monitor for withdrawal symptoms Reconsult if necesary GI and DVT ppx as necessary
[2018-04-06 17:05] LABS: URINE BILIRUBIN NEGATIVE (NEGATIVE); URINE BLOOD 3+ (NEGATIVE); URINE CLARITY Clear (Clear); URINE COLOR Straw (YELLOW); URINE GLUCOSE (UA) NORMAL (Normal); URINE LEUKOCYTE ESTERASE NEG Leu/uL (Negative); URINE PROTEIN NEGATIVE (NEGATIVE); URINE UROBILINOGEN NORMAL mg/dL (0.2-1.0)
[2018-04-07 06:12] LABS: BASO % 0.7 % (0.0-2.0); EOS # 0.1 K/uL (0.0-0.7); HEMOGLOBIN 8.2 g/dL (12.0-18.0); LYMPH # 3.1 K/uL (1.0-4.3); LYMPH % 57.6 % (20.0-40.0); MEAN CELL VOLUME 94.9 fL (80.0-94.0); MEAN CORPUSCULAR HEMOGLOBIN 31.9 pg (27.0-31.0); MEAN CORPUSCULAR HGB CONC 33.6 g/dL (33.0-37.0); MEAN PLATELET VOLUME 7.6 fL (7.2-11.7); MONO # 0.5 K/uL (0.0-0.8); MONO % 8.8 % (0.0-10.0); NEUT # 1.7 K/uL (1.8-7.0); NEUT % 31.9 % (50.0-75.0); NRBC % 0.1 % (0.0-2.0); RBC 2.57 Mil/uL (4.40-5.90); RED CELL DISTRIBUTION WIDTH 15.8 % (11.5-14.5); WHITE BLOOD COUNT 5.4 K/uL (4.8-10.8)
[2018-04-07 06:43] LABS: ALB/GLOB RATIO 0.7 (1.0-2.1); ALBUMIN 2.3 g/dL (3.5-5.0); ALT/SGPT 41 U/L (21-72); AST/SGOT 76 U/L (17-59); BLOOD UREA NITROGEN 3 mg/dL (9-20); CALCIUM 7.2 mg/dl (8.6-10.4); GFR NON-AFRICAN AMERICAN > 60
[2018-04-07] MEDS: Multiple Vitamins Tab PO SCH (09:19)
[2018-04-07] MEDS ORDERED: Enoxaparin 40 mg Syringe SC SCH (10:00)
--- NOTE | 2018-04-07 11:42 | CP.PCM.PN ---
Subjective - Date & Time of Evaluation Date of Evaluation: 04/07/18 Time of Evaluation: 11:39 - Subjective Subjective: Eddie Arellano PGY1 Progress Note for Dr. Davison Pt was examined at bedside this morning. He reports some L lower leg pain. He denies chest pain, abdominal pain, shortness of breath, nausea, vomiting, diarrhea, dysuria. Objective - Vital Signs/Intake and Output Vital Signs (last 24 hours): Temp Pulse Resp BP Pulse Ox 98.5 F 111 H 18 131/68 97 04/07/18 07:00 04/07/18 07:00 04/07/18 07:00 04/07/18 07:00 04/07/18 07:00 Intake and Output: 04/07/18 04/07/18 06:59 18:59 Intake Total 1000 Output Total 400 Balance 600 - Medications Medications: Current Medications Enoxaparin Sodium (Lovenox) 40 mg SC DAILY [facility] Last Admin: 04/07/18 09:19 Dose: 40 mg Famotidine (Pepcid) 20 mg PO BID [facility] Last Admin: 04/07/18 09:19 Dose: 20 mg Folic Acid (Folic Acid) 1 mg PO DAILY [facility] Last Admin: 04/07/18 09:19 Dose: 1 mg Sodium Chloride (Sodium Chloride 0.9%) 1,000 mls @ 100 mls/hr IV .Q10H [facility] Last Admin: 04/06/18 15:00 Dose: 100 mls/hr Lorazepam (Ativan) 2 mg IVP Q4H PRN PRN Reason: Anxiety Last Admin: 04/07/18 08:36 Dose: 2 mg Lorazepam (Ativan) 1 mg PO Q2H PRN PRN Reason: Symptoms of alcohol withdrawl Last Admin: 04/07/18 10:27 Dose: 1 mg Multivitamins (Hexavitamin) 1 tab PO DAILY [facility] Last Admin: 04/07/18 09:19 Dose: 1 tab Thiamine HCl (Vitamin B1 Tab) 100 mg PO DAILY [facility] Last Admin: 04/07/18 09:19 Dose: 100 mg - Labs Labs: 04/07/18 06:04 04/07/18 06:04 PT 16.0 SECONDS (9.7-12.2) H 04/06/18 11:33 INR 1.5 04/06/18 11:33 APTT 42 SECONDS (21-34) H 04/06/18 11:33 - Constitutional Appears: No Acute Distress, Unkempt - Head Exam Additional comments: laceration with sutures below R eyebrow clean/dry/intact. no drainage or edema - Eye Exam Eye Exam: EOMI, Normal appearance, PERRL - ENT Exam ENT Exam: Mucous Membranes Moist, Normal Exam - Neck Exam Neck Exam: Normal Inspection - Respiratory Exam Respiratory Exam: Clear to Ausculation Bilateral, NORMAL BREATHING PATTERN. absent: Rales, Rhonchi, Wheezes - Cardiovascular Exam Cardiovascular Exam: REGULAR RHYTHM, +S1, +S2. absent: Gallop, Rubs, Murmur - GI/Abdominal Exam GI & Abdominal Exam: Soft, Normal Bowel Sounds. absent: Distended, Tenderness - Extremities Exam Extremities Exam: Pedal Edema - Neurological Exam Neurological Exam: Alert, Awake - Psychiatric Exam Psychiatric exam: Normal Affect, Normal Mood - Skin Skin Exam: Dry Assessment and Plan - Assessment and Plan (Free Text) Assessment: Pt is a 57yo M with PMH of brought to ED after being found intoxicated on the street with a bottle of vodka. Admitted for hypothermia and etoh intoxication. Pt temperature regulated, being treated for alcohol withdrawal. Plan: Hypothermia, resolved - likely secondary to staying outdoors - T 88.1 in ED, now regulated - UA neg leuk esterase, nitrates - BCx neg - NS @100cc/hr Subdural Hematoma - CT head: No acute intracranial hemorrhage. mild b/l periorbital soft tissue swelling R>L. Moderately large hypodense R subdural collection w/ mass effect and midline shift. Smaller chronic L subdural hematoma is again noted as well with minor mass-effect. Mild chronic periventricular white matter ischemic changes. - unchanged from hematoma on prior admission - no surgical intervention advised on prior admission EtoH Intoxication - long standing etoh history - alcohol level 414 - UDS negative - WA protocol - fall precautions - seizure precautions - ativan 1mg PO q2h PRN - librium 25mg PO q8h PRN - folic acid 1 tab PO daily - thiamine 100mg PO daily - multivitamin 1 tab PO daily Transaminitis - improving - likely secondary to etoh - continue to monitor Laceration, R eyebrow - s/p lac repair, 4 sutures PPX GI: pepcid DVT: lovenox HHD Pt seen and case reviewed by Dr. Davison
[2018-04-07] MEDS: Sodium Chloride 0.9% 1,000 ML IV SCH (11:58)
--- NOTE | 2018-04-07 12:04 | CARD ---
APPROVED REPORT Date of service: 04/06/2018 EKG Measurement Heart [id number] <Conclusion> Sinus rhythm with short MT Rightward axis Borderline ECG
[2018-04-07] MEDS ORDERED: Metoprolol 1 mg/ml Inj IVP ONE (13:45)
[2018-04-08] MEDS: Sodium Chloride 0.9% 1,000 ML IV SCH ×3 (00:24→17:43)
--- NOTE | 2018-04-08 02:51 | CP.PCM.PN ---
Subjective - Date & Time of Evaluation Date of Evaluation: 04/08/18 Time of Evaluation: 05:15 - Subjective Subjective: PGY-1 Medicine Progress Note for Dr. Davison Patient was seen and examined at bedside in no acute distress. Patient had a fever of 102 overnight which came down with Tylenol. Denies feeling feverish, chills, headache, dizziness. Patient has no new complaints. Denies chest pain, shortness of breath, abdominal pain, n/v/c/d. Objective - Vital Signs/Intake and Output Vital Signs (last 24 hours): Temp Pulse Resp BP Pulse Ox 99.2 F 105 H 20 123/60 96 04/07/18 23:00 04/07/18 23:47 04/07/18 23:00 04/07/18 23:00 04/07/18 23:00 Intake and Output: 04/07/18 04/08/18 18:59 06:59 Output Total 850 Balance -850 - Medications Medications: Current Medications Chlordiazepoxide (Librium) 25 mg PO Q8 PRN PRN Reason: Symptoms of alcohol withdrawl Last Admin: 04/08/18 02:00 Dose: 25 mg Enoxaparin Sodium (Lovenox) 40 mg SC DAILY [facility] Last Admin: 04/07/18 09:19 Dose: 40 mg Famotidine (Pepcid) 20 mg PO BID [facility] Last Admin: 04/07/18 17:50 Dose: 20 mg Folic Acid (Folic Acid) 1 mg PO DAILY [facility] Last Admin: 04/07/18 09:19 Dose: 1 mg Sodium Chloride (Sodium Chloride 0.9%) 1,000 mls @ 100 mls/hr IV .Q10H [facility] Last Admin: 04/08/18 00:24 Dose: 100 mls/hr Lorazepam (Ativan) 1 mg PO Q2H PRN PRN Reason: Symptoms of alcohol withdrawl Last Admin: 04/07/18 21:36 Dose: 1 mg Multivitamins (Hexavitamin) 1 tab PO DAILY [facility] Last Admin: 04/07/18 09:19 Dose: 1 tab Thiamine HCl (Vitamin B1 Tab) 100 mg PO DAILY [facility] Last Admin: 04/07/18 09:19 Dose: 100 mg - Labs Labs: 04/07/18 06:04 04/07/18 06:04 PT 16.0 SECONDS (9.7-12.2) H 12/20/18 11:33 INR 1.5 04/06/18 11:33 APTT 42 SECONDS (21-34) H 04/06/18 11:33 - Constitutional Appears: No Acute Distress, Unkempt - Head Exam Additional comments: laceration with sutures below R eyebrow c/d/i without drainage/erythema/edema - Eye Exam Eye Exam: EOMI, Normal appearance - ENT Exam ENT Exam: Mucous Membranes Moist - Respiratory Exam Respiratory Exam: Clear to Ausculation Bilateral, NORMAL BREATHING PATTERN. absent: Rales, Rhonchi, Wheezes - Cardiovascular Exam Cardiovascular Exam: REGULAR RHYTHM, +S1, +S2. absent: Gallop, Rubs, Murmur - GI/Abdominal Exam GI & Abdominal Exam: Soft, Normal Bowel Sounds. absent: Tenderness - Extremities Exam Extremities Exam: Pedal Edema - Neurological Exam Neurological Exam: Alert, Awake - Psychiatric Exam Psychiatric exam: Flat Affect - Skin Skin Exam: Normal Color, Warm Assessment and Plan - Assessment and Plan (Free Text) Assessment: Pt is a 57yo M with PMH of brought to ED after being found intoxicated on the street with a bottle of vodka. Admitted for hypothermia and etoh intoxication. Pt temperature regulated, being treated for alcohol withdrawal. Plan: Hypothermia, resolved - likely secondary to staying outdoors - T 88.1 in ED, now regulated - UA neg leuk esterase, nitrates - BCx neg - NS @100cc/hr Subdural Hematoma - CT head: No acute intracranial hemorrhage. mild b/l periorbital soft tissue swelling R>L. Moderately large hypodense R subdural collection w/ mass effect and midline shift. Smaller chronic L subdural hematoma is again noted as well with minor mass-effect. Mild chronic periventricular white matter ischemic changes. - unchanged from hematoma on prior admission - no surgical intervention advised on prior admission EtoH Intoxication - long standing etoh history - alcohol level 414 - UDS negative - [facility] protocol - fall precautions - seizure precautions - ativan 1mg PO q2h PRN - librium 25mg PO q8h PRN - folic acid 1 tab PO daily - thiamine 100mg PO daily - multivitamin 1 tab PO daily Transaminitis - improving - likely secondary to etoh - continue to monitor Laceration, R eyebrow - s/p lac repair, 4 sutures PPX GI: pepcid DVT: lovenox HHD
[2018-04-08 07:17] LABS: BASO % 0.2 % (0.0-2.0); EOS % 0.4 % (0.0-4.0); HEMOGLOBIN 8.4 g/dL (12.0-18.0); LYMPH % 43.9 % (20.0-40.0); MEAN CORPUSCULAR HEMOGLOBIN 32.4 pg (27.0-31.0); MEAN CORPUSCULAR HGB CONC 34.1 g/dL (33.0-37.0); MEAN PLATELET VOLUME 7.6 fL (7.2-11.7); MONO # 0.8 K/uL (0.0-0.8); NEUT # 4.3 K/uL (1.8-7.0); NEUT % 46.5 % (50.0-75.0); NRBC % 0.2 % (0.0-2.0); RBC 2.61 Mil/uL (4.40-5.90); RED CELL DISTRIBUTION WIDTH 15.8 % (11.5-14.5); WHITE BLOOD COUNT 9.2 K/uL (4.8-10.8)
[2018-04-08 07:46] LABS: ALB/GLOB RATIO 0.7 (1.0-2.1); ALBUMIN 2.1 g/dL (3.5-5.0); ALT/SGPT 37 U/L (21-72); AST/SGOT 64 U/L (17-59); BLOOD UREA NITROGEN 5 mg/dL (9-20); GFR NON-AFRICAN AMERICAN > 60
[2018-04-08] MEDS: Multiple Vitamins Tab PO SCH (09:41)
[2018-04-09] MEDS ORDERED: guaiFENesin DM 200 mg-20 mg/10 ml UD PO STA (00:04)
--- NOTE | 2018-04-09 00:14 | CP.PCM.PN ---
<BassettCecilia Y - Last Filed: 04/09/18 00:10> Subjective - Date & Time of Evaluation Date of Evaluation: 04/09/18 Time of Evaluation: 05:30 - Subjective Subjective: PGY-1 Medicine Progress Note for Dr. Davison Patient was seen and examined at bedside in no acute distress. Patient requested Robitussin overnight for persistent cough. He still has an intermittent cough that is minimally productive. Denies hemoptysis, chest pain, palpitations, wheezing, headache. Patient remained afebrile over the course of the day, and denies subjective fever, chills, dizziness, lightheadedness. Objective - Vital Signs/Intake and Output Vital Signs (last 24 hours): Temp Pulse Resp BP Pulse Ox 98.5 F 93 H 18 121/71 97 04/08/18 15:00 04/08/18 16:36 04/08/18 15:00 04/08/18 15:00 04/08/18 15:00 Intake and Output: 04/08/18 04/09/18 18:59 06:59 Intake Total 880 800 Output Total 1300 700 Balance -420 100 - Medications Medications: Current Medications Chlordiazepoxide (Librium) 10 mg PO Q8 PRN PRN Reason: Agitation Last Admin: 04/08/18 20:06 Dose: 10 mg Enoxaparin Sodium (Lovenox) 40 mg SC DAILY [facility] Last Admin: 04/07/18 09:19 Dose: 40 mg Famotidine (Pepcid) 20 mg PO BID [facility] Last Admin: 04/08/18 17:41 Dose: 20 mg Folic Acid (Folic Acid) 1 mg PO DAILY [facility] Last Admin: 04/08/18 09:41 Dose: 1 mg Sodium Chloride (Sodium Chloride 0.9%) 1,000 mls @ 100 mls/hr IV .Q10H [facility] Last Admin: 04/08/18 17:43 Dose: 100 mls/hr Lorazepam (Ativan) 1 mg PO Q2H PRN PRN Reason: Symptoms of alcohol withdrawl Last Admin: 04/07/18 21:36 Dose: 1 mg Multivitamins (Hexavitamin) 1 tab PO DAILY [facility] Last Admin: 04/08/18 09:41 Dose: 1 tab Thiamine HCl (Vitamin B1 Tab) 100 mg PO DAILY [facility] Last Admin: 04/08/18 09:41 Dose: 100 mg - Labs Labs: 04/08/18 07:04 04/08/18 07:04 PT 16.0 SECONDS (9.7-12.2) H 04/06/18 11:33 INR 1.5 04/06/18 11:33 APTT 42 SECONDS (21-34) H 04/06/18 11:33 - Constitutional Appears: No Acute Distress, Unkempt - Head Exam Additional comments: laceration with sutures below R eyebrow c/d/i without drainage/erythema/edema - Eye Exam Eye Exam: EOMI, Normal appearance - ENT Exam ENT Exam: Mucous Membranes Moist - Respiratory Exam Respiratory Exam: Clear to Ausculation Bilateral, NORMAL BREATHING PATTERN. absent: Rales, Rhonchi, Wheezes - Cardiovascular Exam Cardiovascular Exam: REGULAR RHYTHM, +S1, +S2. absent: Gallop, Rubs, Murmur - GI/Abdominal Exam GI & Abdominal Exam: Soft, Normal Bowel Sounds. absent: Tenderness - Extremities Exam Extremities Exam: Pedal Edema - Neurological Exam Neurological Exam: Alert, Awake - Psychiatric Exam Psychiatric exam: Flat Affect - Skin Skin Exam: Normal Color, Warm Assessment and Plan - Assessment and Plan (Free Text) Assessment: Pt is a 57yo M with PMH of brought to ED after being found intoxicated on the street with a bottle of vodka. Admitted for hypothermia and etoh intoxication. Pt temperature regulated, being treated for alcohol withdrawal. Plan: Hypothermia, resolved - likely secondary to staying outdoors - T 88.1 in ED, now regulated - UA neg leuk esterase, nitrates - BCx neg - NS @100cc/hr Subdural Hematoma - CT head: No acute intracranial hemorrhage. mild b/l periorbital soft tissue swelling R>L. Moderately large hypodense R subdural collection w/ mass effect and midline shift. Smaller chronic L subdural hematoma is again noted as well with minor mass-effect. Mild chronic periventricular white matter ischemic changes. - unchanged from hematoma on prior admission - no surgical intervention advised on prior admission EtoH Intoxication - long standing etoh history - alcohol level 414 - UDS negative - [facility] protocol - fall precautions - seizure precautions - ativan 1mg PO q2h PRN - librium 25mg PO q8h PRN - folic acid 1 tab PO daily - thiamine 100mg PO daily - multivitamin 1 tab PO daily Transaminitis - improving - likely secondary to etoh - continue to monitor Laceration, R eyebrow - s/p lac repair, 4 sutures PPX GI: pepcid DVT: lovenox [facility]HD <Eh Wong H - Last Filed: 04/09/18 10:05> Objective - Vital Signs/Intake and Output Vital Signs (last 24 hours): Temp Pulse Resp BP Pulse Ox 98.1 F 69 20 128/67 98 04/09/18 07:00 04/09/18 07:00 04/09/18 07:00 04/09/18 07:00 04/09/18 07:00 Intake and Output: 04/09/18 04/09/18 06:59 18:59 Intake Total 800 Output Total 800 Balance 0 - Medications Medications: Current Medications Chlordiazepoxide (Librium) 10 mg PO Q8 PRN PRN Reason: Agitation Last Admin: 04/08/18 20:06 Dose: 10 mg Enoxaparin Sodium (Lovenox) 40 mg SC DAILY [facility] Last Admin: 04/07/18 09:19 Dose: 40 mg Famotidine (Pepcid) 20 mg PO BID [facility] Last Admin: 04/09/18 09:45 Dose: 20 mg Folic Acid (Folic Acid) 1 mg PO DAILY [facility] Last Admin: 04/09/18 09:45 Dose: 1 mg Sodium Chloride (Sodium Chloride 0.9%) 1,000 mls @ 100 mls/hr IV .Q10H [facility] Last Admin: 04/08/18 17:43 Dose: 100 mls/hr Lorazepam (Ativan) 1 mg PO Q2H PRN PRN Reason: Symptoms of alcohol withdrawl Last Admin: 04/07/18 21:36 Dose: 1 mg Multivitamins (Hexavitamin) 1 tab PO DAILY [facility] Last Admin: 04/09/18 09:45 Dose: 1 tab Potassium Chloride (K-Dur 20 Meq Er Tab) 40 meq PO DAILY [facility] Last Admin: 04/09/18 09:46 Dose: 40 meq Thiamine HCl (Vitamin B1 Tab) 100 mg PO DAILY [facility] Last Admin: 04/09/18 09:45 Dose: 100 mg - Labs Labs: 04/09/18 08:14 04/09/18 08:14 PT 16.0 SECONDS (9.7-12.2) H 04/06/18 11:33 INR 1.5 04/06/18 11:33 APTT 42 SECONDS (21-34) H 04/06/18 11:33 Attending/Attestation - Attestation I have personally seen and examined this patient.: Yes I have fully participated in the care of the patient.: Yes I have reviewed all pertinent clinical information, including history, physical exam and plan: Yes Notes (Text): 04/09/18 10:00 Medical attending: Patient was seen and examined by me. No acute distress this morning. No events overnight Yesterday he finished the [facility] protocol for alcohol withdrawal. He denies weakness, denied headache, denies tremors at this time. We will assess the patient tomorrow and if he is stable will consider DC tomorrow. He does not remember the previous time comming to the hospital intoxicated and falling resulting in subdural bleed that was fourtunately stable - he signed out AMA and came back again intoxicated - this time hypothermic. Since then his temperature is better - the minimal temperature was 97.5 and better. Platelet count was 73. If he does ok tommorow then maybe will discharge Eh Wong
[2018-04-09 01:53] VITALS: RESP 20
[2018-04-09 08:35] LABS: BASO % 0.2 % (0.0-2.0); EOS # 0.2 K/uL (0.0-0.7); HEMOGLOBIN 8.8 g/dL (12.0-18.0); LYMPH # 3.3 K/uL (1.0-4.3); LYMPH % 53.3 % (20.0-40.0); MEAN CELL VOLUME 95.5 fL (80.0-94.0); MEAN CORPUSCULAR HEMOGLOBIN 32.7 pg (27.0-31.0); MEAN CORPUSCULAR HGB CONC 34.3 g/dL (33.0-37.0); MEAN PLATELET VOLUME 7.9 fL (7.2-11.7); MONO # 0.6 K/uL (0.0-0.8); MONO % 8.9 % (0.0-10.0); NEUT # 2.1 K/uL (1.8-7.0); NEUT % 34.6 % (50.0-75.0); NRBC % 0.1 % (0.0-2.0); RBC 2.68 Mil/uL (4.40-5.90); RED CELL DISTRIBUTION WIDTH 15.5 % (11.5-14.5); WHITE BLOOD COUNT 6.2 K/uL (4.8-10.8)
[2018-04-09 09:01] LABS: ALB/GLOB RATIO 0.6 (1.0-2.1); ALBUMIN 2.1 g/dL (3.5-5.0); ALT/SGPT 33 U/L (21-72); AST/SGOT 57 U/L (17-59); BLOOD UREA NITROGEN 4 mg/dL (9-20); CALCIUM 7.1 mg/dl (8.6-10.4); GFR NON-AFRICAN AMERICAN > 60
[2018-04-09] MEDS: Multiple Vitamins Tab PO SCH (09:45)
[2018-04-09] MEDS: Potassium Chloride 20 mEq ER Tab PO SCH (09:46)
[2018-04-09] MEDS: Sodium Chloride 0.9% 1,000 ML IV SCH ×2 (13:56→23:00)
[2018-04-10 06:29] LABS: BASO % 0.6 % (0.0-2.0); EOS # 0.2 K/uL (0.0-0.7); EOS % 4.8 % (0.0-4.0); LYMPH # 2.8 K/uL (1.0-4.3); LYMPH % 55.1 % (20.0-40.0); MEAN CELL VOLUME 95.1 fL (80.0-94.0); MEAN CORPUSCULAR HEMOGLOBIN 31.8 pg (27.0-31.0); MEAN CORPUSCULAR HGB CONC 33.4 g/dL (33.0-37.0); MEAN PLATELET VOLUME 7.9 fL (7.2-11.7); MONO # 0.4 K/uL (0.0-0.8); MONO % 8.6 % (0.0-10.0); NEUT # 1.6 K/uL (1.8-7.0); NEUT % 30.9 % (50.0-75.0); NRBC % 0.1 % (0.0-2.0); RBC 2.85 Mil/uL (4.40-5.90); RED CELL DISTRIBUTION WIDTH 15.7 % (11.5-14.5)
[2018-04-10] MEDS: Sodium Chloride 0.9% 1,000 ML IV SCH (06:46)
[2018-04-10 06:58] LABS: ALB/GLOB RATIO 0.6 (1.0-2.1); ALBUMIN 2.1 g/dL (3.5-5.0); ALT/SGPT 29 U/L (21-72); AST/SGOT 44 U/L (17-59); BLOOD UREA NITROGEN 4 mg/dL (9-20); CALCIUM 7.2 mg/dl (8.6-10.4); GFR NON-AFRICAN AMERICAN > 60
[2018-04-10 07:37] VITALS: O2SAT 98
[2018-04-10] MEDS: Multiple Vitamins Tab PO SCH (09:40)
[2018-04-10] MEDS: Potassium Chloride 20 mEq ER Tab PO SCH (09:40)
--- NOTE | 2018-04-10 11:18 | CP.PCM.DIS ---
<Eddie Arellano - Last Filed: 04/10/18 11:18> Provider - Provider Date of Admission: 04/06/18 13:01 Attending physician: Eh Wong DO Consults: 04/06/18 15:05 Critical Care Consult Routine Comment: Consulting Provider: Jr Lee Consulting Physician: Jr Lee Reason for Consult: hypothermic and hypotensive/alcohol intoxication 04/06/18 16:19 Qa Reviewer [Case Management Referral] Routine Comment: homeless pt with h/o alcohol abuse Physician Instructions: Reason For Exam: Reason for Referral: Qa Reviewer Cristine 04/06/18 21:09 Nursing Referral for Palliative Care Routine Comment: Physician Instructions: Reason For Exam: score of 4 Time Spent in preparation of Discharge (in minutes): 70 Hospital Course - Lab Results Lab Results: Micro Results 04/06/18 11:36 Blood-Venous Blood Culture - Preliminary NO GROWTH AFTER 3 DAYS 04/06/18 11:33 Blood-Venous Blood Culture - Preliminary NO GROWTH AFTER 3 DAYS 04/06/18 22:46 Urine Urine Culture - Final No Growth (<1,000 CFU/ML) Most Recent Lab Values WBC 5.0 K/uL (4.8-10.8) 04/10/18 06:23 RBC 2.85 Mil/uL (4.40-5.90) L 04/10/18 06:23 Hgb 9.0 g/dL (12.0-18.0) L 04/10/18 06:23 Hct 27.1 % (35.0-51.0) L 04/10/18 06:23 MCV 95.1 fL (80.0-94.0) H 04/10/18 06:23 MCH 31.8 pg (27.0-31.0) H 04/10/18 06:23 MCHC 33.4 g/dL (33.0-37.0) 04/10/18 06:23 RDW 15.7 % (11.5-14.5) H 04/10/18 06:23 Plt Count 83 K/uL (130-400) L 04/10/18 06:23 MPV 7.9 fL (7.2-11.7) 04/10/18 06:23 Neut % (Auto) 30.9 % (50.0-75.0) L 04/10/18 06:23 Lymph % (Auto) 55.1 % (20.0-40.0) H 04/10/18 06:23 [place] % (Auto) 8.6 % (0.0-10.0) 04/10/18 06:23 Eos % (Auto) 4.8 % (0.0-4.0) H 04/10/18 06:23 Baso % (Auto) 0.6 % (0.0-2.0) 04/10/18 06:23 Neut # (Auto) 1.6 K/uL (1.8-7.0) L 04/10/18 06:23 Lymph # (Auto) 2.8 K/uL (1.0-4.3) 04/10/18 06:23 [place] # (Auto) 0.4 K/uL (0.0-0.8) 04/10/18 06:23 Eos # (Auto) 0.2 K/uL (0.0-0.7) 04/10/18 06:23 Baso # (Auto) 0.0 K/uL (0.0-0.2) 04/10/18 06:23 Differential Comment 04/08/18 07:04 PT 16.0 SECONDS (9.7-12.2) H 04/06/18 11:33 INR 1.5 04/06/18 11:33 APTT 42 SECONDS (21-34) H 04/06/18 11:33 pO2 48 mm/Hg (30-55) 04/06/18 14:25 VBG pH 7.35 (7.32-7.43) 04/06/18 14:25 VBG pCO2 46 mmHg (40-60) 04/06/18 14:25 VBG HCO3 24.0 mmol/L 04/06/18 14:25 VBG Total CO2 26.8 mmol/L (22-28) 04/06/18 14:25 VBG O2 Sat (Calc) 84.6 % (40-65) H 04/06/18 14:25 VBG Base Excess -0.6 mmol/L (0.0-2.0) L 04/06/18 14:25 VBG Potassium 4.0 mmol/L (3.6-5.2) 04/06/18 14:25 Sodium 141.0 mmol/l (132-148) 04/06/18 14:25 Chloride 112.0 mmol/L (98-107) H 04/06/18 14:25 Glucose 91 mg/dl (75-110) 04/06/18 14:25 Lactate 2.3 mmol/L (0.7-2.1) H 04/06/18 14:25 Sodium 131 mmol/L (132-148) L 04/10/18 06:23 Potassium 3.6 mmol/L (3.6-5.2) 04/10/18 06:23 Chloride 103 mmol/L (98-107) 04/10/18 06:23 Carbon Dioxide 23 mmol/L (22-30) 04/10/18 06:23 Anion Gap 9 (10-20) L 04/10/18 06:23 BUN 4 mg/dL (9-20) L 04/10/18 06:23 Creatinine 0.5 mg/dL (0.8-1.5) L 04/10/18 06:23 Est GFR ( Amer) > 60 04/10/18 06:23 Est GFR (Non-Af Amer) > 60 04/10/18 06:23 POC Glucose (mg/dL) 145 mg/dL (65-110) H 04/06/18 10:30 Random Glucose 85 mg/dL (75-110) 04/10/18 06:23 Lactic Acid 1.9 mmol/L (0.7-2.1) 04/07/18 18:03 Calcium 7.2 mg/dl (8.6-10.4) L 04/10/18 06:23 Magnesium 1.6 mg/dL (1.6-2.3) 04/06/18 11:33 Total Bilirubin 1.4 mg/dL (0.2-1.3) H 04/10/18 06:23 AST 44 U/L (17-59) 04/10/18 06:23 ALT 29 U/L (21-72) 04/10/18 06:23 Alkaline Phosphatase 150 U/L (38-126) H 04/10/18 06:23 Troponin I 0.0250 ng/mL (0.00-0.120) 04/06/18 11:33 NT-Pro-B Natriuret Pep 66.5 pg/mL (0-900) 04/06/18 11:33 Total Protein 5.3 g/dL (6.3-8.3) L 04/10/18 06:23 Albumin 2.1 g/dL (3.5-5.0) L 04/10/18 06:23 Globulin 3.2 gm/dL (2.2-3.9) 04/10/18 06:23 Albumin/Globulin Ratio 0.6 (1.0-2.1) L 04/10/18 06:23 TSH 3rd Generation 3.14 mIU/L (0.46-4.68) 04/06/18 11:33 Venous Blood Potassium 4.0 mmol/L (3.6-5.2) 04/06/18 14:25 Urine Color Straw (YELLOW) 04/06/18 16:56 Urine Clarity Clear (Clear) 04/06/18 16:56 Urine pH 6.0 (5.0-8.0) 04/06/18 16:56 Ur Specific [place] 1.003 (1.003-1.030) 04/06/18 16:56 Urine Protein Negative mg/dL (NEGATIVE) 04/06/18 16:56 Urine Glucose (UA) Normal mg/dL (Normal) 04/06/18 16:56 Urine Ketones Negative mg/dL (NEGATIVE) 04/06/18 16:56 Urine Blood 3+ (NEGATIVE) H 04/06/18 16:56 Urine Nitrate Negative (NEGATIVE) 04/06/18 16:56 Urine Bilirubin Negative (NEGATIVE) 04/06/18 16:56 Urine Urobilinogen Normal mg/dL (0.2-1.0) 04/06/18 16:56 Ur Leukocyte Esterase Neg Marina/uL (Negative) 04/06/18 16:56 Urine WBC (Auto) < 1 /hpf (0-5) 04/06/18 16:56 Urine RBC (Auto) 1 /hpf (0-3) 04/06/18 16:56 Urine Opiates Screen Negative (NEGATIVE) 04/06/18 12:49 Urine Methadone Screen Negative (NEGATIVE) 04/06/18 12:49 Ur Barbiturates Screen Negative (NEGATIVE) 04/06/18 12:49 Ur Phencyclidine Scrn Negative (NEGATIVE) 04/06/18 12:49 Ur Amphetamines Screen Negative (NEGATIVE) 04/06/18 12:49 U Benzodiazepines Scrn Negative (NEGATIVE) 04/06/18 12:49 U Oth Cocaine Metabols Negative (NEGATIVE) 04/06/18 12:49 U Cannabinoids Screen Negative (NEGATIVE) 04/06/18 12:49 Alcohol, Quantitative 414 mg/dl (0-10) H 04/06/18 11:33 - Hospital Course Hospital Course: Upon Admission: 57 yr male w/ PMHx HTN, subdural hematoma, lice, thrombocytopenia, anemia, ETOH abuse, liver cirrhosis, pneumonia, recently admitted for a subdural hematoma 03/14 and signed out AMA 03/28 brought to ED after being found on the street with a bottle of vodka. Pt was not verbally responsive to questions at the time of admission. In the ED, pt was found to by hypothermic. CT head showed a moderately large hypodense R subdural collection w/ mass effect and midline shift. Smaller chronic L subdural hematoma. Unchanged since prior admission. Pt was found to have laceration below the R eyebrow. Pt was admitted for hypothermia and subdural hematoma. Hospital Course: Pt was warmed with a bear hug heating blanket and temperature improved. Laceration was repaired with 4 sutures. Pt was given banana bag, multivitamin, thiamine, folate. Pt was put on CIWA protocol for alcohol withdrawal. Pt became responsive to questions, and completed the withdrawal protocol. Pt was deemed stable for discharge. Upon Discharge: Pt was deemed stable for discharge to long-term. Pt was instructed to take home medications and to follow up with primary care doctor. Patient was instructed to stop drinking alcohol. Pt understood instructions. Discharge Exam - Head Exam Head Exam: NORMOCEPHALIC Additional comments: laceration below R eyebrow with sutures clean/dry/intact - Eye Exam Eye Exam: EOMI, PERRL Pupil Exam: NORMAL ACCOMODATION, PERRL - ENT Exam ENT Exam: Mucous Membranes Moist - Neck Exam Neck exam: Full Rom - Respiratory Exam Respiratory Exam: Clear to PA & Lateral, NORMAL BREATHING PATTERN, UNREMARKABLE. absent: Rales, Rhonchi, Wheezes - Cardiovascular Exam Cardiovascular Exam: REGULAR RHYTHM, +S1, +S2. absent: Gallop, Rubs, Systolic Murmur - GI/Abdominal Exam GI & Abdominal Exam: Normal Bowel Sounds, Soft. absent: Distended, Tenderness - Extremities Exam Extremities exam: pedal edema - Neurological Exam Neurological exam: Alert, Oriented x3 - Psychiatric Exam Psychiatric exam: Normal Affect, Normal Mood - Skin Skin Exam: Dry Discharge Plan - Discharge Medications Prescriptions: RX: Folic Acid 1 mg PO DAILY #30 tab RX: Multivitamins [Hexavitamin] 1 tab PO DAILY #30 tab RX: Thiamine [Vitamin B1 Tab] 100 mg PO DAILY #30 tab - Follow Up Plan Condition: FAIR Disposition: HOME/ ROUTINE Instructions: Hypothermia, Heart Healthy Diet, Alcohol Withdrawal (DC), Effects of Alcohol on Your Health, Alcohol Intoxication (DC) Additional Instructions: Please follow up with your primary care physician, Dr. Vang, within 7 days. Please call to make an appointment. Please have your sutures removed Please take your medications as prescribed. Please refrain from drinking alcohol as it will worsen your condition. Please return to the ED if symptoms return. Take care and be well. <Eh Wong - Last Filed: 04/10/18 14:46> Provider - Provider Date of Admission: 04/06/18 13:01 Attending physician: Eh Wong DO Consults: 04/06/18 15:05 Critical Care Consult Routine Comment: Consulting Provider: Jr Lee Consulting Physician: rJ Lee Reason for Consult: hypothermic and hypotensive/alcohol intoxication 04/06/18 16:19 Qa Reviewer [Case Management Referral] Routine Comment: homeless pt with h/o alcohol abuse Physician Instructions: Reason For Exam: Reason for Referral: Qa Reviewer Cristine 04/06/18 21:09 Nursing Referral for Palliative Care Routine Comment: Physician Instructions: Reason For Exam: score of 4 Hospital Course - Lab Results Lab Results: Micro Results 04/06/18 11:36 Blood-Venous Blood Culture - Preliminary NO GROWTH AFTER 4 DAYS 04/06/18 11:33 Blood-Venous Blood Culture - Preliminary NO GROWTH AFTER 4 DAYS 04/06/18 22:46 Urine Urine Culture - Final No Growth (<1,000 CFU/ML) Most Recent Lab Values WBC 5.0 K/uL (4.8-10.8) 04/10/18 06:23 RBC 2.85 Mil/uL (4.40-5.90) L 04/10/18 06:23 Hgb 9.0 g/dL (12.0-18.0) L 04/10/18 06:23 Hct 27.1 % (35.0-51.0) L 04/10/18 06:23 MCV 95.1 fL (80.0-94.0) H 04/10/18 06:23 MCH 31.8 pg (27.0-31.0) H 04/10/18 06:23 MCHC 33.4 g/dL (33.0-37.0) 04/10/18 06:23 RDW 15.7 % (11.5-14.5) H 04/10/18 06:23 Plt Count 83 K/uL (130-400) L 04/10/18 06:23 MPV 7.9 fL (7.2-11.7) 04/10/18 06:23 Neut % (Auto) 30.9 % (50.0-75.0) L 04/10/18 06:23 Lymph % (Auto) 55.1 % (20.0-40.0) H 04/10/18 06:23 [place] % (Auto) 8.6 % (0.0-10.0) 04/10/18 06:23 Eos % (Auto) 4.8 % (0.0-4.0) H 04/10/18 06:23 Baso % (Auto) 0.6 % (0.0-2.0) 04/10/18 06:23 Neut # (Auto) 1.6 K/uL (1.8-7.0) L 04/10/18 06:23 Lymph # (Auto) 2.8 K/uL (1.0-4.3) 04/10/18 06:23 [place] # (Auto) 0.4 K/uL (0.0-0.8) 04/10/18 06:23 Eos # (Auto) 0.2 K/uL (0.0-0.7) 04/10/18 06:23 Baso # (Auto) 0.0 K/uL (0.0-0.2) 04/10/18 06:23 Differential Comment 04/08/18 07:04 PT 16.0 SECONDS (9.7-12.2) H 04/06/18 11:33 INR 1.5 04/06/18 11:33 APTT 42 SECONDS (21-34) H 04/06/18 11:33 pO2 48 mm/Hg (30-55) 04/06/18 14:25 VBG pH 7.35 (7.32-7.43) 04/06/18 14:25 VBG pCO2 46 mmHg (40-60) 04/06/18 14:25 VBG HCO3 24.0 mmol/L 04/06/18 14:25 VBG Total CO2 26.8 mmol/L (22-28) 04/06/18 14:25 VBG O2 Sat (Calc) 84.6 % (40-65) H 04/06/18 14:25 VBG Base Excess -0.6 mmol/L (0.0-2.0) L 04/06/18 14:25 VBG Potassium 4.0 mmol/L (3.6-5.2) 04/06/18 14:25 Sodium 141.0 mmol/l (132-148) 04/06/18 14:25 Chloride 112.0 mmol/L (98-107) H 04/06/18 14:25 Glucose 91 mg/dl (75-110) 04/06/18 14:25 Lactate 2.3 mmol/L (0.7-2.1) H 04/06/18 14:25 Sodium 131 mmol/L (132-148) L 04/10/18 06:23 Potassium 3.6 mmol/L (3.6-5.2) 04/10/18 06:23 Chloride 103 mmol/L (98-107) 04/10/18 06:23 Carbon Dioxide 23 mmol/L (22-30) 04/10/18 06:23 Anion Gap 9 (10-20) L 04/10/18 06:23 BUN 4 mg/dL (9-20) L 04/10/18 06:23 Creatinine 0.5 mg/dL (0.8-1.5) L 04/10/18 06:23 Est GFR ( Amer) > 60 04/10/18 06:23 Est GFR (Non-Af Amer) > 60 04/10/18 06:23 POC Glucose (mg/dL) 145 mg/dL (65-110) H 04/06/18 10:30 Random Glucose 85 mg/dL (75-110) 04/10/18 06:23 Lactic Acid 1.9 mmol/L (0.7-2.1) 04/07/18 18:03 Calcium 7.2 mg/dl (8.6-10.4) L 04/10/18 06:23 Magnesium 1.6 mg/dL (1.6-2.3) 04/06/18 11:33 Total Bilirubin 1.4 mg/dL (0.2-1.3) H 04/10/18 06:23 AST 44 U/L (17-59) 04/10/18 06:23 ALT 29 U/L (21-72) 04/10/18 06:23 Alkaline Phosphatase 150 U/L (38-126) H 04/10/18 06:23 Troponin I 0.0250 ng/mL (0.00-0.120) 04/06/18 11:33 NT-Pro-B Natriuret Pep 66.5 pg/mL (0-900) 04/06/18 11:33 Total Protein 5.3 g/dL (6.3-8.3) L 04/10/18 06:23 Albumin 2.1 g/dL (3.5-5.0) L 04/10/18 06:23 Globulin 3.2 gm/dL (2.2-3.9) 04/10/18 06:23 Albumin/Globulin Ratio 0.6 (1.0-2.1) L 04/10/18 06:23 TSH 3rd Generation 3.14 mIU/L (0.46-4.68) 04/06/18 11:33 Venous Blood Potassium 4.0 mmol/L (3.6-5.2) 04/06/18 14:25 Urine Color Straw (YELLOW) 04/06/18 16:56 Urine Clarity Clear (Clear) 04/06/18 16:56 Urine pH 6.0 (5.0-8.0) 04/06/18 16:56 Ur Specific [place] 1.003 (1.003-1.030) 04/06/18 16:56 Urine Protein Negative mg/dL (NEGATIVE) 04/06/18 16:56 Urine Glucose (UA) Normal mg/dL (Normal) 04/06/18 16:56 Urine Ketones Negative mg/dL (NEGATIVE) 04/06/18 16:56 Urine Blood 3+ (NEGATIVE) H 04/06/18 16:56 Urine Nitrate Negative (NEGATIVE) 04/06/18 16:56 Urine Bilirubin Negative (NEGATIVE) 04/06/18 16:56 Urine Urobilinogen Normal mg/dL (0.2-1.0) 04/06/18 16:56 Ur Leukocyte Esterase Neg Marina/uL (Negative) 04/06/18 16:56 Urine WBC (Auto) < 1 /hpf (0-5) 04/06/18 16:56 Urine RBC (Auto) 1 /hpf (0-3) 04/06/18 16:56 Urine Opiates Screen Negative (NEGATIVE) 04/06/18 12:49 Urine Methadone Screen Negative (NEGATIVE) 04/06/18 12:49 Ur Barbiturates Screen Negative (NEGATIVE) 04/06/18 12:49 Ur Phencyclidine Scrn Negative (NEGATIVE) 04/06/18 12:49 Ur Amphetamines Screen Negative (NEGATIVE) 04/06/18 12:49 U Benzodiazepines Scrn Negative (NEGATIVE) 04/06/18 12:49 U Oth Cocaine Metabols Negative (NEGATIVE) 04/06/18 12:49 U Cannabinoids Screen Negative (NEGATIVE) 04/06/18 12:49 Alcohol, Quantitative 414 mg/dl (0-10) H 04/06/18 11:33 Attending/Attestation - Attestation I have personally seen and examined this patient.: Yes I have fully participated in the care of the patient.: Yes I have reviewed all pertinent clinical information, including history, physical exam and plan: Yes Notes (Text): 04/10/18 14:43 Medical attending: Patient was seen and examined by me. Agree with the above note by the resident The patient was not in any acute distress when we came and saw. He reported feeling well without tremors or shaking We had a very long discussion before discharge today about his repeated use of alcohol. He never gives us a good response and always tries to deffer the question. He had complaints about being at a long-term and we pointed out to him that being in a long-term is preffereable to being out in the cold - especially since the alcohol he has been drinking contributes to him being intoxicated and at risk for falling and another episode of hypotherm ia. Eh Wong
[2018-04-10 16:03] VITALS: BP 124/77; PULSE 80; TEMP 98.1
== END 2018-04-10 18:33 | disposition home or self-care (01) | DRG 775 ==
LOC: C.ER 10:27 → C.9E 13:01 → C.6T 13:53
PROVIDERS: ADMIT Hospitalist; ATTEND Hospitalist
DX: F10.220 Alcohol dependence with intoxication, uncomplicated (principal); T68.XXXA Hypothermia, initial encounter; I62.03 Nontraumatic chronic subdural hemorrhage; F10.230 Alcohol dependence with withdrawal, uncomplicated; D69.59 Other secondary thrombocytopenia; B85.2 Pediculosis, unspecified; K70.30 Alcoholic cirrhosis of liver without ascites; I10 Essential (primary) hypertension; D64.9 Anemia, unspecified; S01.111A Laceration without foreign body of right eyelid and periocular area, initial encounter; S01.81XA Laceration without foreign body of other part of head, initial encounter; Y90.8 Blood alcohol level of 240 mg/100 ml or more; Z87.01 Personal history of pneumonia (recurrent); X31.XXXA Exposure to excessive natural cold, initial encounter

== ENCOUNTER 2018-04-22 00:17 | Emergency (ER) | payer MEDICAID ==
[2018-04-22 02:11] VITALS: O2SAT 100
--- NOTE | 2018-04-22 02:28 | C.PDOC ---
History Of Present Illness 57 year old male is brought to the ED by EMS for alcohol intoxication. Patient was found intoxicated in [facility] and brought to the ED. Patient admits to drinking alcohol today. Patient denies SI/HI, hallucinations, injury, fall, trauma. Time Seen by Provider: 04/22/18 02:28 Chief Complaint (Nursing): Substance Abuse History Per: Patient, EMS History/Exam Limitations: intoxication Onset/Duration Of Symptoms: Hrs Current Symptoms Are (Timing): Still Present Suicide/Self Injury Attempted (Context): None Modifying Factor(s): Alcohol Associated Symptoms: denies: Depression, Suicidal Thoughts, Suicidal Plan Recent travel outside of the [place]: No Additional History Per: Patient Past Medical History Reviewed: Historical Data, Nursing Documentation, Vital Signs Vital Signs: Last Vital Signs Temp 97.2 F L 04/22/18 00:17 Pulse 70 04/22/18 00:17 Resp 20 04/22/18 00:17 BP 123/69 04/22/18 00:17 Pulse Ox 100 04/22/18 00:17 - Medical History PMH: Anemia, HTN, Pneumonia Denies: Chronic Kidney Disease Surgical History: No Surg Hx - [facility] Procedures DRAINAGE OF LEFT PLEURAL CAVITY, PERCUTANEOUS APPROACH (02/27/18) INSERTION OF ENDOTRACHEAL AIRWAY INTO TRACHEA, VIA OPENING (02/27/18) INSERTION OF INFUSION DEV INTO L SUBCLAV VEIN, PERC APPROACH (02/27/18) RESPIRATORY VENTILATION, GREATER THAN 96 CONSECUTIVE HOURS (02/27/18) Family History: States: No Known Family Hx - Social History Hx Tobacco Use: No Hx Alcohol Use: Yes (excessive alcohol drinking) Hx Substance Use: No - Immunization History Hx Tetanus Toxoid Vaccination: No Hx Influenza Vaccination: No Hx Pneumococcal Vaccination: No Review Of Systems Constitutional: Negative for: Fever, Chills Cardiovascular: Negative for: Chest Pain Respiratory: Negative for: Shortness of Breath Gastrointestinal: Negative for: Nausea, Vomiting, Abdominal Pain Skin: Negative for: Rash Psych: Negative for: Depression, Suicidal ideation Physical Exam - Physical Exam Appears: Non-toxic, No Acute Distress Skin: Warm, Dry Head: Normacephalic Eye(s): bilateral: Normal Inspection Neck: Supple Chest: Symmetrical Cardiovascular: Rhythm Regular Respiratory: No Rales, No Rhonchi, No Wheezing Gastrointestinal/Abdominal: Soft, No Tenderness, No Guarding, No Rebound Extremity: Bilateral: Atraumatic, Normal Color And Temperature, Normal ROM Neurological/Psych: Oriented x3, Normal Speech, Normal Cognition Gait: Steady ED Course And Treatment O2 Sat by Pulse Oximetry: 100 (ON RA) Pulse Ox Interpretation: Normal Reevaluation Time: 05:59 Reassessment Condition: Improved Disposition Counseled Patient/Family Regarding: Studies Performed, Diagnosis, Need For Followup - Disposition Referrals: [facility] [Outside] Disposition: HOME/ ROUTINE Disposition Time: 02:28 Condition: FAIR Instructions: Alcohol Abuse and Alcoholism (DC) Forms: [employer] (Slovak) - Clinical Impression Clinical Impression: Alcohol intoxication - Scribe Statement The provider has reviewed the documentation as recorded by the Scribe Neel Johnson All medical record entries made by the Scribe were at my direction and personally dictated by me. I have reviewed the chart and agree that the record accurately reflects my personal performance of the history, physical exam, medical decision making, and the department course for this patient. I have also personally directed, reviewed, and agree with the discharge instructions and disposition.
[2018-04-22 06:11] VITALS: BP 136/77; PULSE 77; RESP 17; TEMP 97.9
== END 2018-04-22 06:13 | disposition home or self-care (01) ==
LOC: C.ER 00:17
DX: F10.129 Alcohol abuse with intoxication, unspecified (principal); Y90.9 Presence of alcohol in blood, level not specified

== ENCOUNTER 2018-04-23 11:08 | Emergency (ER) | payer MEDICAID ==
--- NOTE | 2018-04-23 12:34 | C.PDOC ---
History Of Present Illness 57 year old male presents to the emergency department and admits to drinking alcohol earlier today. Patient states that he had fallen two weeks ago and sustained a laceration to his right eyebrow. Patient is requesting suture removal, and a sandwich. He denies fever, chills, nausea, vomiting, diarrhea, and suicidal ideation. Time Seen by Provider: 04/23/18 11:14 Chief Complaint (Nursing): Substance Abuse History Per: Patient History/Exam Limitations: no limitations Onset/Duration Of Symptoms: Hrs Current Symptoms Are (Timing): Still Present Suicide/Self Injury Attempted (Context): None Modifying Factor(s): Alcohol Associated Symptoms: denies: Suicidal Thoughts, Suicidal Plan Past Medical History Reviewed: Historical Data, Nursing Documentation, Vital Signs Vital Signs: Last Vital Signs Temp 97.4 F L 04/23/18 11:16 Pulse 98 H 04/23/18 11:16 Resp 18 04/23/18 11:16 BP 110/63 04/23/18 11:16 Pulse Ox 99 04/23/18 11:16 - Medical History PMH: Anemia, HTN, Pneumonia Denies: Chronic Kidney Disease Surgical History: No Surg Hx - [facility] Procedures DRAINAGE OF LEFT PLEURAL CAVITY, PERCUTANEOUS APPROACH (02/27/18) INSERTION OF ENDOTRACHEAL AIRWAY INTO TRACHEA, VIA OPENING (02/27/18) INSERTION OF INFUSION DEV INTO L SUBCLAV VEIN, PERC APPROACH (02/27/18) RESPIRATORY VENTILATION, GREATER THAN 96 CONSECUTIVE HOURS (02/27/18) Family History: States: No Known Family Hx - Social History Hx Tobacco Use: No Hx Alcohol Use: Yes (excessive alcohol drinking) Hx Substance Use: No - Immunization History Hx Tetanus Toxoid Vaccination: No Hx Influenza Vaccination: No Hx Pneumococcal Vaccination: No Review Of Systems Constitutional: Negative for: Fever, Chills Gastrointestinal: Negative for: Nausea, Vomiting, Diarrhea Neurological: Positive for: Other (alcohol intoxication) Psych: Negative for: Suicidal ideation Physical Exam - Physical Exam Appears: Non-toxic, No Acute Distress, Other (mildly intoxicated) Skin: Warm, Dry Head: Normacephalic, Laceration (well-healed laceration above the right eyebrow. [address] ) Eye(s): bilateral: Normal Inspection, PERRL, EOMI, Other (b/l raccoon eyes) Nose: Normal Oral Mucosa: Moist Neck: Normal, Supple Chest: Symmetrical, No Tenderness Cardiovascular: Rhythm Regular, No Friction Rub Respiratory: No Rales, No Rhonchi, No Wheezing Extremity: Normal ROM ED Course And Treatment O2 Sat by Pulse Oximetry: 99 (RA) Pulse Ox Interpretation: Normal Progress Note: Plan: Glucose POC. Sutures removed, patient given sandwich, currently pending sobriety. Disposition Counseled Patient/Family Regarding: Studies Performed, Diagnosis, Need For Followup, Rx Given - Disposition Referrals: Sonya Dove MD [Primary Care Provider] - Disposition: HOME/ ROUTINE Disposition Time: 15:35 Condition: STABLE Additional Instructions: FOLLOW UP WITH YOUR DOCTOR IN 1-2 DAYS RETURN TO ER IF YOU HAVE ANY CONCERNING SYMPTOMS Instructions: Alcohol Abuse and Alcoholism (DC) Forms: [employer] (Turkmen) Print Language: HONDURAN - Clinical Impression Clinical Impression: Alcohol intoxication, Encounter for removal of sutures - Scribe Statement The provider has reviewed the documentation as recorded by the Scribe (Tony Colin) Provider Attestation: All medical record entries made by the Scribe were at my direction and personally dictated by me. I have reviewed the chart and agree that the record accurately reflects my personal performance of the history, physical exam, medical decision making, and the department course for this patient. I have also personally directed, reviewed, and agree with the discharge instructions and disposition.
[2018-04-23 15:50] VITALS: BP 120/66; PULSE 92; RESP 20; TEMP 98.2; O2SAT 98
== END 2018-04-23 16:09 | disposition home or self-care (01) ==
LOC: C.ER 11:08 → SUPCPDRO 11:08 → C.ER 16:09
DX: S01.111D Laceration without foreign body of right eyelid and periocular area, subsequent encounter (principal); F10.129 Alcohol abuse with intoxication, unspecified; I10 Essential (primary) hypertension

== ENCOUNTER 2018-04-26 18:13 | Inpatient (IN) | payer MEDICAID ==
--- NOTE | 2018-04-26 19:42 | C.PDOC ---
History Of Present Illness 57 year old male presents to the ER with acute ETOH intoxication and complaining of swelling to the testicular area. Patient states he has had swelling to the testicular area for the past few years but more so tonight. Denies any pain. Chief Complaint (Nursing): Lower Extremity Problem/Injury History Per: Patient History/Exam Limitations: no limitations Onset/Duration Of Symptoms: Days Current Symptoms Are (Timing): Still Present Recent travel outside of the [place]: No Past Medical History Reviewed: Historical Data, Nursing Documentation, Vital Signs Vital Signs: Last Vital Signs Temp 97.6 F 04/26/18 18:25 Pulse 96 H 04/26/18 18:25 Resp 18 04/26/18 18:25 BP 124/70 04/26/18 18:25 Pulse Ox 99 04/26/18 18:25 - Medical History PMH: Anemia, HTN, Pneumonia Denies: Chronic Kidney Disease - [facility] Procedures DRAINAGE OF LEFT PLEURAL CAVITY, PERCUTANEOUS APPROACH (02/27/18) INSERTION OF ENDOTRACHEAL AIRWAY INTO TRACHEA, VIA OPENING (02/27/18) INSERTION OF INFUSION DEV INTO L SUBCLAV VEIN, PERC APPROACH (02/27/18) RESPIRATORY VENTILATION, GREATER THAN 96 CONSECUTIVE HOURS (02/27/18) Family History: States: Unknown Family Hx - Social History Hx Tobacco Use: No Hx Alcohol Use: Yes (excessive alcohol drinking) Hx Substance Use: No - Immunization History Hx Tetanus Toxoid Vaccination: No Hx Influenza Vaccination: No Hx Pneumococcal Vaccination: No Review Of Systems Constitutional: Positive for: Other (ETOH intoxication). Negative for: Fever, Chills Cardiovascular: Negative for: Chest Pain, Palpitations Respiratory: Negative for: Cough, Shortness of Breath Gastrointestinal: Negative for: Nausea, Vomiting Genitourinary: Positive for: Other (Swelling to testicular area) Neurological: Negative for: Weakness, Numbness Physical Exam - Physical Exam Appears: Non-toxic, Other (Slight AOB) Skin: Normal Color, Warm, Dry Head: Atraumatic, Normacephalic Eye(s): bilateral: Normal Inspection Oral Mucosa: Moist Neck: Normal, Supple Chest: Symmetrical, No Tenderness Cardiovascular: Rhythm Regular Respiratory: Normal Breath Sounds, No Rales, No Rhonchi, No Wheezing Gastrointestinal/Abdominal: Soft, No Tenderness Male Genital: Inguinal Swelling (Bilateral, no tenderness), Scrotal Swelling (Severe, no tenderness) Neurological/Psych: Oriented x3, Normal Speech ED Course And Treatment - Laboratory Results Result Diagrams: 04/26/18 19:34 04/26/18 19:34 O2 Sat by Pulse Oximetry: 99 (Room air) Pulse Ox Interpretation: Normal Progress Note: CT abd/pel, blood work, urinalysis, and testicular US ordered. Disposition Discussed With : Lew Martinez Doctor Will See Patient In The: Hospital Counseled Patient/Family Regarding: Diagnosis - Disposition Disposition: HOSPITALIZED Disposition Time: 03:29 Condition: STABLE Forms: [employer] ([employer]) - POA Present On Arrival: None - Clinical Impression Clinical Impression: Acute colitis, Hydrocele of testis, Alcohol intoxication - Scribe Statement The provider has reviewed the documentation as recorded by the Scribtravis Alonzo All medical record entries made by the Scribe were at my direction and personally dictated by me. I have reviewed the chart and agree that the record accurately reflects my personal performance of the history, physical exam, medical decision making, and the department course for this patient. I have also personally directed, reviewed, and agree with the discharge instructions and disposition.
[2018-04-26 19:44] LABS: BASO % 0.5 % (0.0-2.0); EOS # 0.1 K/uL (0.0-0.7); EOS % 0.9 % (0.0-4.0); HEMOGLOBIN 8.4 g/dL (12.0-18.0); LYMPH # 5.2 K/uL (1.0-4.3); LYMPH % 62.4 % (20.0-40.0); MEAN CORPUSCULAR HEMOGLOBIN 30.7 pg (27.0-31.0); MEAN CORPUSCULAR HGB CONC 33.6 g/dL (33.0-37.0); MEAN PLATELET VOLUME 8.1 fL (7.2-11.7); MONO # 0.9 K/uL (0.0-0.8); NEUT # 2.1 K/uL (1.8-7.0); NEUT % 25.2 % (50.0-75.0); NRBC % 0.2 % (0.0-2.0); RBC 2.74 Mil/uL (4.40-5.90); RED CELL DISTRIBUTION WIDTH 17.4 % (11.5-14.5)
[2018-04-26 19:52] LABS: ALB/GLOB RATIO 0.8 (1.0-2.1); ALBUMIN 2.8 g/dL (3.5-5.0); ALT/SGPT 31 U/L (21-72); AST/SGOT 77 U/L (17-59); BLOOD UREA NITROGEN 5 mg/dL (9-20); CALCIUM 7.5 mg/dl (8.6-10.4); GFR NON-AFRICAN AMERICAN > 60
[2018-04-26 19:56] LABS: MEAN CELL VOLUME 91.4 fL (80.0-94.0); WHITE BLOOD COUNT 8.3 K/uL (4.8-10.8)
[2018-04-26] MEDS ORDERED: Iohexol 240 (50 ml) PO ONE (21:36)
[2018-04-26] MEDS ORDERED: Iohexol 240 (50 ml) ONE (21:43)
[2018-04-26] MEDS ORDERED: Iodixanol 320 MG/ML 100 ML BOTTLE IV ONE (22:05)
[2018-04-27 02:21] LABS: URINE BILIRUBIN NEGATIVE (NEGATIVE); URINE BLOOD NEGATIVE (NEGATIVE); URINE CLARITY Clear (Clear); URINE COLOR Straw (YELLOW); URINE GLUCOSE (UA) NORMAL (Normal); URINE LEUKOCYTE ESTERASE NEG Leu/uL (Negative); URINE PROTEIN NEGATIVE (NEGATIVE); URINE UROBILINOGEN NORMAL mg/dL (0.2-1.0)
[2018-04-27 02:47] LABS: BARBITURATES, UR NEGATIVE (NEGATIVE); BENZODIAZEPINES, UR NEGATIVE (NEGATIVE); OPIATES, UR NEGATIVE (NEGATIVE); PHENCYCLIDINE, UR NEGATIVE (NEGATIVE)
[2018-04-27] MEDS ORDERED: Ciprofloxacin 400mg/200ml D5W 400 MG/200 ML BAG IVPB STA (02:54)
[2018-04-27] MEDS ORDERED: metroNIDAZOLE IV 500 mg/100 ml 500 MG/100 ML BAG IVPB SCH (03:00)
[2018-04-27] MEDS ORDERED: Ciprofloxacin 400mg/200ml D5W 400 MG/200 ML BAG IVPB ONE (03:34)
[2018-04-27] MEDS ORDERED: metroNIDAZOLE IV 500 mg/100 ml 500 MG/100 ML BAG ONE (04:54)
[2018-04-27] MEDS ORDERED: metroNIDAZOLE IV 500 mg/100 ml 500 MG/100 ML BAG IVPB STA (04:57)
--- NOTE | 2018-04-27 10:09 | US ---
Date of service: 04/26/2018 HISTORY: wscrtal swelling TECHNIQUE: Realtime sonography through the scrotum with color and doppler flow. COMPARISON: None Available. FINDINGS: RIGHT TESTICLE: Measures 3.1 x 1.8 x 2.2 cm. Homogeneous echotexture. No mass. Normal flow demonstrated. RIGHT EPIDIDYMIS: Normal size, morphology and vascularity. No mass. LEFT TESTICLE: Measures 3.2 x 1.9 x 2.2 cm. Homogeneous echotexture. No mass. Normal flow demonstrated. LEFT EPIDIDYMIS: Normal size, morphology and vascularity.Incidental 5 mm epididymal cyst. HYDROCELE: Trace bilateral hydrocele VARICOCELE: None. OTHER FINDINGS: Marked diffuse scrotal edema and hypervascularity concerning for a cellulitis. Correlate clinically. IMPRESSION: Probable scrotal cellulitis. Incidental 5 mm left epididymal cyst. Trace bilateral hydrocele. The preliminary findings for this examination were reported by [facility] at 9:17 p.m. on 04/26/2018. There is concurrence of this report with the preliminary findings.
[2018-04-27] MEDS: Multiple Vitamins Tab PO SCH (10:43)
--- NOTE | 2018-04-27 12:52 | CT ---
Date of service: 04/26/2018 PROCEDURE: CT Abdomen and Pelvis without intravenous contrast HISTORY: eric inguinal /scrotal swelling COMPARISON: None. TECHNIQUE: CT scan of the abdomen and pelvis was performed without administration of intravenous contrast. Oral contrast was not administered. Coronal and sagittal reformatted images were obtained. . Radiation dose: Total exam DLP = 622.21 mGy-cm. This CT exam was performed using one or more of the following dose reduction techniques: Automated exposure control, adjustment of the mA and/or kV according to patient size, and/or use of iterative reconstruction technique. FINDINGS: LOWER THORAX: Moderate bilateral pleural. There is subsegmental atelectasis in the lingula and compressive atelectasis in the lower lobes. LIVER: Mild hepatomegaly and fatty liver. No intrahepatic ductal dilatation. GALLBLADDER AND BILE DUCTS: The gallbladder is distended and is moderate pericholecystic fluid. There are multiple calcified gallstones. PANCREAS: Normal in size. No ductal dilatation. SPLEEN: Normal in size. ADRENALS: Normal in size. No discrete nodule. KIDNEYS AND URETERS: Normal in size without nephrolithiasis. No hydronephrosis. There are punctate nonobstructing stone in the upper pole and 5 mm nonobstructing stone in the lower pole of the left kidney. VASCULATURE: No aortic aneurysm. No aortic atherosclerotic calcification or mural plaque present. BOWEL: Evaluation of the bowel is limited in the absence of oral contrast. The proximal small bowel loops are normal in caliber. There is mild circumferential mural thickening in the terminal ileum and severe circumferential mural thickening in the cecum and ascending colon with pericolonic inflammatory changes and moderate pericolonic fluid. APPENDIX: Normal appendix. PERITONEUM: Small abdominal and pelvic ascites. No free air. LYMPH NODES: No enlarged lymph nodes. There are atherosclerotic aortic calcifications present. BLADDER: There is moderate circumferential mural thickening of the urinary bladder wall which may be related to underdistention. REPRODUCTIVE: The prostate gland is normal in size BONES: No acute fracture. OTHER FINDINGS: There is severe diffuse anasarca and scrotal wall edema. IMPRESSION: 1. Findings are most compatible with acute nonspecific infectious/inflammatory colitis involving the cecum and ascending colon. 2. No CT evidence for acute appendicitis. 3. Mild hepatomegaly. Small abdominal and pelvic ascites. 4. Small nonobstructing stones in the left kidney.
--- NOTE | 2018-04-27 13:33 | CT ---
Date of service: 04/26/2018 PROCEDURE: CT Abdomen and Pelvis with contrast HISTORY: RLQ inflammatory mass COMPARISON: 04/26/2018 at 20:13 p.m. TECHNIQUE: CT scan of the abdomen and pelvis was performed after administration of intravenous contrast. Oral contrast was administered. Coronal and sagittal reformatted images were obtained. Contrast dose: 100 mL Visipaque 240 Radiation dose: Total exam DLP = 726.74 mGy-cm. This CT exam was performed using one or more of the following dose reduction techniques: Automated exposure control, adjustment of the mA and/or kV according to patient size, and/or use of iterative reconstruction technique. FINDINGS: LOWER THORAX: Large right and moderate left pleural effusions with compressive atelectasis of the lower lobes. LIVER: Mild hepatomegaly and fatty liver. Mild nodular contour. No ductal dilatation. GALLBLADDER AND BILE DUCTS: The gallbladder is distended and there is mild wall enhancement and moderate pericholecystic fluid. There are multiple small calcified gallstones. PANCREAS: Normal in size with homogeneous enhancement. No gross lesion or ductal dilatation. SPLEEN: Normal in size and appearance. ADRENALS: No discrete nodule. KIDNEYS AND URETERS: Normal in size with homogeneous enhancement. No hydronephrosis. No solid mass. VASCULATURE: No aortic aneurysm. BOWEL: The proximal and mid small bowel loops are normal in caliber. There is mild circumferential mural thickening in the distal ileum. There is severe circumferential mural thickening in the cecum and ascending colon with pericolonic inflammatory changes and moderate fluid in the right paracolic gutter. APPENDIX: There is mild dilatation of air-filled appendix which measures 10 mm in diameter. No evidence of wall thickening or intraluminal fluid PERITONEUM: Small abdominal and pelvic ascites. No free air. LYMPH NODES: No enlarged lymph nodes. BLADDER: Well distended and normal in appearance. REPRODUCTIVE: The prostate gland is normal in size. BONES: No acute fracture. Within normal limits for the patient's age. OTHER FINDINGS: There is severe diffuse anasarca. IMPRESSION: 1. Findings are concerning for acute calculus cholecystitis. 2. Severe circumferential mural thickening in the cecum and ascending colon with pericolonic inflammatory changes and moderate pericolonic fluid and circumferential mural thickening in the distal any a most compatible with acute nonspecific infectious/inflammatory colitis and ileitis. 3. Appendix is mildly distended with intraluminal air without wall thickening or intraluminal fluid, no definite evidence for acute appendicitis. 4. Mild hepatomegaly, fatty liver and mild nodular contour which may represent a hepatic cirrhosis. Clinical follow-up is advised. 5. Small abdominal and pelvic ascites.
--- NOTE | 2018-04-27 13:43 | CP.PCM.HP ---
Past Patient History - Infectious Disease Hx of Infectious Diseases: None - Past Medical History & Family History Past Medical History?: Yes - Past Social History Smoking Status: Never Smoked - CARDIAC Hx Cardiac Disorders: Yes Hx Hypertension: Yes - PULMONARY Hx Respiratory Disorders: Yes Hx Pneumonia: Yes - NEUROLOGICAL Hx Neurological Disorder: No - HEENT Hx HEENT Problems: No - RENAL Hx Chronic Kidney Disease: No - ENDOCRINE/METABOLIC Hx Endocrine Disorders: No - HEMATOLOGICAL/ONCOLOGICAL Hx Blood Disorders: Yes Hx Anemia: Yes - INTEGUMENTARY Hx Dermatological Problems: No - MUSCULOSKELETAL/RHEUMATOLOGICAL Hx Musculoskeletal Disorders: Yes Hx Falls: Yes - GASTROINTESTINAL Hx Gastrointestinal Disorders: Yes Hx Liver Failure: Yes - GENITOURINARY/GYNECOLOGICAL Hx Genitourinary Disorders: No - PSYCHIATRIC Hx Psychophysiologic Disorder: No Hx Substance Use: No - SURGICAL HISTORY Hx Surgeries: No - ANESTHESIA Hx Anesthesia: No Hx Anesthesia Reactions: No Meds Allergies/Adverse Reactions: Allergies Allergy/AdvReac Type Severity Reaction Status Date / Time No Known Allergies Allergy Verified 04/23/18 11:17 Results - Vital Signs Recent Vital Signs: Last Vital Signs Temp 98.9 F 04/27/18 12:58 Pulse 119 H 04/27/18 12:58 Resp 18 04/27/18 12:58 BP 159/73 H 04/27/18 12:58 Pulse Ox 97 04/27/18 12:58 - Labs Result Diagrams: 04/26/18 19:34 04/26/18 19:34 Labs: Laboratory Results - last 24 hr 04/26/18 04/26/18 04/27/18 19:34 19:34 02:15 WBC 8.3 D RBC 2.74 L Hgb 8.4 L Hct 25.0 L MCV 91.4 D MCH 30.7 MCHC 33.6 RDW 17.4 H Plt Count 80 L MPV 8.1 Neut % (Auto) 25.2 L Lymph % (Auto) 62.4 H Sumter % (Auto) 11.0 H Eos % (Auto) 0.9 Baso % (Auto) 0.5 Neut # (Auto) 2.1 Lymph # (Auto) 5.2 H Sum[place] # (Auto) 0.9 H Eos # (Auto) 0.1 Baso # (Auto) 0.0 Differential Comment Sodium 132 Potassium 3.6 Chloride 97 L Carbon Dioxide 27 Anion Gap 12 BUN 5 L Creatinine 0.5 L Est GFR ( Amer) > 60 Est GFR (Non-Af Amer) > 60 Random Glucose 106 D Calcium 7.5 L Phosphorus 3.0 Magnesium 1.6 Total Bilirubin 1.2 AST 77 H D ALT 31 Alkaline Phosphatase 200 H D Total Protein 6.4 Albumin 2.8 L D Globulin 3.7 Albumin/Globulin Ratio 0.8 L Urine Color Straw Urine Clarity Clear Urine pH 6.0 Ur Specific Imbler 1.019 Urine Protein Negative Urine Glucose (UA) Normal Urine Ketones Negative Urine Blood Negative Urine Nitrate Negative Urine Bilirubin Negative Urine Urobilinogen Normal Ur Leukocyte Esterase Neg Urine Opiates Screen Urine Methadone Screen Ur Barbiturates Screen Ur Phencyclidine Scrn Ur Amphetamines Screen U Benzodiazepines Scrn U Oth Cocaine Metabols U Cannabinoids Screen Alcohol, Quantitative 254 H 04/27/18 02:15 WBC RBC Hgb Hct MCV MCH MCHC RDW Plt Count MPV Neut % (Auto) Lymph % (Auto) Sum[place] % (Auto) Eos % (Auto) Baso % (Auto) Neut # (Auto) Lymph # (Auto) [place] # (Auto) Eos # (Auto) Baso # (Auto) Differential Comment Sodium Potassium Chloride Carbon Dioxide Anion Gap BUN Creatinine Est GFR ( Amer) Est GFR (Non-Af Amer) Random Glucose Calcium Phosphorus Magnesium Total Bilirubin AST ALT Alkaline Phosphatase Total Protein Albumin Globulin Albumin/Globulin Ratio Urine Color Urine Clarity Urine pH Ur Specific Imbler Urine Protein Urine Glucose (UA) Urine Ketones Urine Blood Urine Nitrate Urine Bilirubin Urine Urobilinogen Ur Leukocyte Esterase Urine Opiates Screen Negative Urine Methadone Screen Negative Ur Barbiturates Screen Negative Ur Phencyclidine Scrn Negative Ur Amphetamines Screen Negative U Benzodiazepines Scrn Negative U Oth Cocaine Metabols Negative U Cannabinoids Screen Negative Alcohol, Quantitative
[2018-04-27 16:30] VITALS: RESP 20
[2018-04-27] MEDS: metroNIDAZOLE IV 500 mg/100 ml 500 MG/100 ML BAG IVPB SCH (20:46)
[2018-04-28] MEDS: metroNIDAZOLE IV 500 mg/100 ml 500 MG/100 ML BAG IVPB SCH ×2 (01:59→18:10)
[2018-04-28] MEDS: Multiple Vitamins Tab PO SCH (09:48)
[2018-04-28] MEDS: Enoxaparin 40 mg Syringe SC SCH (09:48)
--- NOTE | 2018-04-28 18:19 | CP.PCM.PN ---
Subjective - Date & Time of Evaluation Date of Evaluation: 04/28/18 Time of Evaluation: 18:19 Objective - Vital Signs/Intake and Output Vital Signs (last 24 hours): Temp Pulse Resp BP Pulse Ox 98.6 F 106 H 20 132/68 96 04/28/18 15:00 04/28/18 15:00 04/28/18 15:00 04/28/18 15:00 04/28/18 15:00 Intake and Output: 04/28/18 04/28/18 06:59 18:59 Intake Total 840 Output Total 1150 Balance -310 - Medications Medications: Current Medications Enoxaparin Sodium (Lovenox) 40 mg SC DAILY [facility] Last Admin: 04/28/18 09:48 Dose: 40 mg Folic Acid (Folic Acid) 1 mg PO DAILY [facility] Last Admin: 04/28/18 09:48 Dose: 1 mg Metronidazole (Flagyl) 500 mg in 100 mls @ 100 mls/hr IVPB Q8H [facility]; Protocol Last Admin: 04/28/18 18:10 Dose: 100 mls/hr Influenza Virus Vaccine (Flucelvax Quad [id number] Syr) 60 mcg IM .ONCE ONE Stop: 04/29/18 14:01 Lorazepam (Ativan) 1 mg PO Q6 PRN PRN Reason: Anxiety Last Admin: 04/28/18 02:34 Dose: 1 mg Multivitamins (Hexavitamin) 1 tab PO DAILY [facility] Last Admin: 04/28/18 09:48 Dose: 1 tab Thiamine HCl (Vitamin B1 Tab) 100 mg PO DAILY [facility] Last Admin: 04/28/18 09:48 Dose: 100 mg - Labs Labs: 04/26/18 19:34 04/26/18 19:34
[2018-04-29] MEDS: metroNIDAZOLE IV 500 mg/100 ml 500 MG/100 ML BAG IVPB SCH ×3 (01:30→17:25)
[2018-04-29] MEDS: Multiple Vitamins Tab PO SCH (09:49)
[2018-04-29] MEDS: Enoxaparin 40 mg Syringe SC SCH (09:49)
[2018-04-29] MEDS ORDERED: Influenza Vaccine 60 mcg/0.5 mL SYR (4YR UP) IM ONE (14:00)
[2018-04-29] MEDS: Piperacillin/Tazobact 3.375 GM in Sodium Chloride 100 ML IVPB SCH ×2 (14:30→22:48)
--- NOTE | 2018-04-29 16:44 | CP.PCM.PN ---
Subjective - Date & Time of Evaluation Date of Evaluation: 04/29/18 Time of Evaluation: 16:44 Objective - Vital Signs/Intake and Output Vital Signs (last 24 hours): Temp Pulse Resp BP Pulse Ox 97.9 F 94 H 20 143/80 97 04/29/18 07:00 04/29/18 07:00 04/29/18 07:00 04/29/18 07:00 04/29/18 07:00 Intake and Output: 04/29/18 04/29/18 06:59 18:59 Intake Total 980 Output Total 1050 Balance -70 - Medications Medications: Current Medications Enoxaparin Sodium (Lovenox) 40 mg SC DAILY [facility] Last Admin: 04/29/18 09:49 Dose: 40 mg Folic Acid (Folic Acid) 1 mg PO DAILY [facility] Last Admin: 04/29/18 09:49 Dose: 1 mg Metronidazole (Flagyl) 500 mg in 100 mls @ 100 mls/hr IVPB Q8H [facility]; Protocol Last Admin: 04/29/18 09:56 Dose: 100 mls/hr Piperacillin Sod/Tazobactam (Sod 3.375 gm/ Sodium Chloride) 100 mls @ 100 mls/hr IVPB Q8 [facility]; Protocol Last Admin: 04/29/18 14:30 Dose: 100 mls/hr Lorazepam (Ativan) 1 mg PO Q6 PRN PRN Reason: Anxiety Last Admin: 04/28/18 02:34 Dose: 1 mg Multivitamins (Hexavitamin) 1 tab PO DAILY [facility] Last Admin: 04/29/18 09:49 Dose: 1 tab Thiamine HCl (Vitamin B1 Tab) 100 mg PO DAILY [facility] Last Admin: 04/29/18 09:49 Dose: 100 mg - Labs Labs: 04/26/18 19:34 04/26/18 19:34
--- NOTE | 2018-04-29 17:47 | CP.PCM.CON ---
<Zoran Fung - Last Filed: 04/29/18 18:30> History of Present Illness - History of Present Illness History of Present Illness: Surgery Consult note. Dr. Gorman 57yo M with HTN, Cirrhosis, ETOH abuse, here for evaluation of bilateral lower extremity swelling and scrotal swelling. Patient denies any nausea, vomiting. No abdominal pain. No fevers or chills. Currently tolerating regular diet. CT Abd/Pelvis was performed during this hospitalization with evidence of cholelithiasis and surgery consultation was requested to r/o cholecystitis. Patient denies any abdominal complaints at this time. No urinary complaints. Last use of ETOH was 04/25/18, the day prior to arrival. PMHx: HTN, ETOH abuse, cirrhosis PSHx: Denies Family Hx: Father: HTN Social Hx: Admits to heavy ETOH use. Denies Tobacco use, Denies illicit drugs. States that he recently became homeless NKDA Review of Systems - Review of Systems All systems: reviewed and no additional remarkable complaints except - Constitutional Constitutional: absent: Chills, Fever - Cardiovascular Cardiovascular: Edema, Leg Edema. absent: Chest Pain, Dyspnea - Gastrointestinal Gastrointestinal: absent: Abdominal Pain, Diarrhea, Hematemesis, Hematochezia, Melena, Nausea, Vomiting Past Patient History - Infectious Disease Hx of Infectious Diseases: None - Past Medical History & Family History Past Medical History?: Yes - Past Social History Smoking Status: Never Smoked - CARDIAC Hx Cardiac Disorders: Yes Hx Hypertension: Yes - PULMONARY Hx Respiratory Disorders: Yes Hx Pneumonia: Yes - NEUROLOGICAL Hx Neurological Disorder: No - HEENT Hx HEENT Problems: No - RENAL Hx Chronic Kidney Disease: No - ENDOCRINE/METABOLIC Hx Endocrine Disorders: No - HEMATOLOGICAL/ONCOLOGICAL Hx Blood Disorders: Yes Hx Anemia: Yes - INTEGUMENTARY Hx Dermatological Problems: No - MUSCULOSKELETAL/RHEUMATOLOGICAL Hx Musculoskeletal Disorders: Yes Hx Falls: Yes - GASTROINTESTINAL Hx Gastrointestinal Disorders: Yes Hx Liver Failure: Yes - GENITOURINARY/GYNECOLOGICAL Hx Genitourinary Disorders: No - PSYCHIATRIC Hx Psychophysiologic Disorder: No Hx Substance Use: No - SURGICAL HISTORY Hx Surgeries: No - ANESTHESIA Hx Anesthesia: No Hx Anesthesia Reactions: No Meds Allergies/Adverse Reactions: Allergies Allergy/AdvReac Type Severity Reaction Status Date / Time No Known Allergies Allergy Verified 04/23/18 11:17 - Medications Medications: Current Medications Enoxaparin Sodium (Lovenox) 40 mg SC DAILY [facility] Last Admin: 04/29/18 09:49 Dose: 40 mg Folic Acid (Folic Acid) 1 mg PO DAILY [facility] Last Admin: 04/29/18 09:49 Dose: 1 mg Metronidazole (Flagyl) 500 mg in 100 mls @ 100 mls/hr IVPB Q8H [facility]; Protocol Last Admin: 04/29/18 17:25 Dose: 100 mls/hr Piperacillin Sod/Tazobactam (Sod 3.375 gm/ Sodium Chloride) 100 mls @ 100 mls/hr IVPB Q8 [facility]; Protocol Last Admin: 04/29/18 14:30 Dose: 100 mls/hr Lorazepam (Ativan) 1 mg PO Q6 PRN PRN Reason: Anxiety Last Admin: 04/28/18 02:34 Dose: 1 mg Multivitamins (Hexavitamin) 1 tab PO DAILY [facility] Last Admin: 04/29/18 09:49 Dose: 1 tab Thiamine HCl (Vitamin B1 Tab) 100 mg PO DAILY [facility] Last Admin: 04/29/18 09:49 Dose: 100 mg Physical Exam - Constitutional Appears: Non-toxic, No Acute Distress - Head Exam Head Exam: ATRAUMATIC, NORMAL INSPECTION, NORMOCEPHALIC - Eye Exam Eye Exam: EOMI, Normal appearance. absent: Scleral icterus - ENT Exam ENT Exam: Mucous Membranes Moist - Respiratory Exam Respiratory Exam: NORMAL BREATHING PATTERN. absent: Respiratory Distress - Cardiovascular Exam Cardiovascular Exam: absent: JVD - GI/Abdominal Exam Additional comments: No abdominal tenderness. +fluid wave present. Mild distention. Soft. nontender - Extremities Exam Extremities exam: Positive for: normal inspection - Neurological Exam Neurological exam: Alert, Oriented x3 - Psychiatric Exam Psychiatric exam: Normal Affect, Normal Mood - Skin Skin Exam: Dry, Intact, Normal Color, Warm Results - Vital Signs Recent Vital Signs: Last Vital Signs Temp 98.1 F 04/29/18 15:05 Pulse 100 H 04/29/18 15:05 Resp 20 04/29/18 15:05 BP 143/74 04/29/18 15:05 Pulse Ox 99 04/29/18 15:05 - Labs Result Diagrams: 04/26/18 19:34 04/26/18 19:34 Assessment & Plan - Assessment and Plan (Free Text) Assessment: 57yo M w etoh abuse and cirrhosis. Surgery consulted due to CT Abd with concerns of cholecystitis. Plan: - f/u HIDA scan as ordered - f/u AM labs - We will make more recs as we follow results of workup - Medical mgmt as per Primary team Further recs as per Dr. Sherif Fung PGY2 surgery <Mykel Gorman - Last Filed: 05/05/18 20:32> Results - Vital Signs Recent Vital Signs: Last Vital Signs Temp 98.5 F 05/04/18 07:00 Pulse 83 05/04/18 07:00 Resp 20 05/04/18 07:00 BP 146/82 05/04/18 07:00 Pulse Ox 99 05/04/18 07:00 - Labs Result Diagrams: 05/03/18 08:22 05/03/18 08:22 Attending/Attestation - Attestation I have personally seen and examined this patient.: Yes I have fully participated in the care of the patient.: Yes I have reviewed all pertinent clinical information: Yes Notes (Text): Pt was seen and examined at bedside Agree with above note and assessment Pt with LE swelling with CT scan findings of Cholecystitis Abdomen: Soft, NT, ND Labs and radiology reviewed Ass: NO clinical evidence of Cholecystitis Plan: HIDA scan IV antibiotics c.w current mx Plan d.w pt in detail Risk and benefit explained in detail.
[2018-04-30] MEDS: metroNIDAZOLE IV 500 mg/100 ml 500 MG/100 ML BAG IVPB SCH ×3 (02:00→17:47)
[2018-04-30] MEDS: Piperacillin/Tazobact 3.375 GM in Sodium Chloride 100 ML IVPB SCH ×3 (06:21→22:12)
--- NOTE | 2018-04-30 08:09 | CP.PCM.PN ---
<Tony Grider - Last Filed: 04/30/18 12:16> Subjective - Date & Time of Evaluation Date of Evaluation: 04/30/18 Time of Evaluation: 08:06 - Subjective Subjective: General Surgery Consult Note for Dr. Gorman 57M seen and evaluated at bedside this morning. No acute events overnight. No complaints this morning. Patient does not endorse pain the RUQ. Denies f/c, n/v/d, SOB, CP, palpitations, or urinary symptoms. Objective - Vital Signs/Intake and Output Vital Signs (last 24 hours): Temp Pulse Resp BP Pulse Ox 98.6 F 97 H 20 136/76 96 04/29/18 23:45 04/29/18 23:45 04/29/18 23:45 04/29/18 23:45 04/29/18 23:45 Intake and Output: 04/30/18 04/30/18 06:59 18:59 Intake Total 500 Output Total 800 Balance -300 - Medications Medications: Current Medications Enoxaparin Sodium (Lovenox) 40 mg SC DAILY [facility] Last Admin: 04/29/18 09:49 Dose: 40 mg Folic Acid (Folic Acid) 1 mg PO DAILY [facility] Last Admin: 04/29/18 09:49 Dose: 1 mg Metronidazole (Flagyl) 500 mg in 100 mls @ 100 mls/hr IVPB Q8H [facility]; Protocol Last Admin: 04/30/18 02:00 Dose: 100 mls/hr Piperacillin Sod/Tazobactam (Sod 3.375 gm/ Sodium Chloride) 100 mls @ 100 mls/hr IVPB Q8 [facility]; Protocol Last Admin: 04/30/18 06:21 Dose: 100 mls/hr Lorazepam (Ativan) 1 mg PO Q6 PRN PRN Reason: Anxiety Last Admin: 04/29/18 19:16 Dose: 1 mg Multivitamins (Hexavitamin) 1 tab PO DAILY [facility] Last Admin: 04/29/18 09:49 Dose: 1 tab Thiamine HCl (Vitamin B1 Tab) 100 mg PO DAILY [facility] Last Admin: 04/29/18 09:49 Dose: 100 mg - Labs Labs: 04/26/18 19:34 04/26/18 19:34 - Constitutional Appears: Well, Non-toxic, No Acute Distress - Head Exam Head Exam: ATRAUMATIC, NORMAL INSPECTION, NORMOCEPHALIC - Eye Exam Eye Exam: EOMI - ENT Exam ENT Exam: Mucous Membranes Dry - Respiratory Exam Respiratory Exam: NORMAL BREATHING PATTERN. absent: Respiratory Distress - Cardiovascular Exam Cardiovascular Exam: REGULAR RHYTHM. absent: Tachycardia - GI/Abdominal Exam GI & Abdominal Exam: Soft, Normal Bowel Sounds. absent: Distended, Guarding, Tenderness, Rebound - Neurological Exam Neurological Exam: Alert, Awake - Psychiatric Exam Psychiatric exam: Normal Affect, Normal Mood Assessment and Plan - Assessment and Plan (Free Text) Assessment: 57M w/ CT Abd/Pel concerning for cholecystitis Plan: F/u HIDA scan Continue to monitor vitals Continue AM labs Further recommendations to follow D/w Dr. Sherif Grider PGY1 <Mykel Gorman - Last Filed: 05/05/18 20:33> Objective - Vital Signs/Intake and Output Vital Signs (last 24 hours): Temp Pulse Resp BP Pulse Ox 98.5 F 83 20 146/82 99 05/04/18 07:00 05/04/18 07:00 05/04/18 07:00 05/04/18 07:00 05/04/18 07:00 - Labs Labs: 05/03/18 08:22 05/03/18 08:22 Attending/Attestation - Attestation I have personally seen and examined this patient.: Yes I have fully participated in the care of the patient.: Yes I have reviewed all pertinent clinical information, including history, physical exam and plan: Yes Notes (Text): Pt was seen and examined at bedside Agree with above note and assessment Pt is improved clinically f.u HIDA scan report we will f.u Plan d.w pt in detail.
[2018-04-30 08:12] LABS: BASO % 0.6 % (0.0-2.0); EOS # 0.3 K/uL (0.0-0.7); HEMOGLOBIN 9.5 g/dL (12.0-18.0); LYMPH # 2.3 K/uL (1.0-4.3); MEAN CELL VOLUME 92.9 fL (80.0-94.0); MEAN CORPUSCULAR HEMOGLOBIN 31.1 pg (27.0-31.0); MEAN CORPUSCULAR HGB CONC 33.5 g/dL (33.0-37.0); MEAN PLATELET VOLUME 8.8 fL (7.2-11.7); MONO # 0.7 K/uL (0.0-0.8); MONO % 13.1 % (0.0-10.0); NEUT # 2.1 K/uL (1.8-7.0); NEUT % 38.3 % (50.0-75.0); NRBC % 0.2 % (0.0-2.0); RBC 3.05 Mil/uL (4.40-5.90); RED CELL DISTRIBUTION WIDTH 18.2 % (11.5-14.5); WHITE BLOOD COUNT 5.4 K/uL (4.8-10.8)
[2018-04-30 08:23] LABS: ALB/GLOB RATIO 0.7 (1.0-2.1); ALBUMIN 2.4 g/dL (3.5-5.0); ALT/SGPT 29 U/L (21-72); AST/SGOT 47 U/L (17-59); BLOOD UREA NITROGEN 6 mg/dL (9-20); CALCIUM 7.7 mg/dl (8.6-10.4); GFR NON-AFRICAN AMERICAN > 60
[2018-04-30] MEDS: Multiple Vitamins Tab PO SCH (09:50)
[2018-04-30] MEDS: Enoxaparin 40 mg Syringe SC SCH (09:51)
--- NOTE | 2018-04-30 15:17 | CP.PCM.CON ---
History of Present Illness - History of Present Illness History of Present Illness: 57yo M with HTN, Cirrhosis, ETOH abuse, here for evaluation of bilateral lower extremity swelling and scrotal swelling. Patient denies any nausea, vomiting. No abdominal pain. No fevers or chills. Currently tolerating regular diet. ID CONSULTED FOR BILAT LEG SWWELLING, CELLULITIS R/O CHOLECYSTITIS PMHx: HTN, ETOH abuse, cirrhosis PSHx: Denies Family Hx: Father: HTN Social Hx: Admits to heavy ETOH use. Denies Tobacco use, Denies illicit drugs. States that he recently became homeless NKDA Review of Systems - Review of Systems All systems: reviewed and no additional remarkable complaints except - Constitutional Constitutional: absent: Chills, Fever - Cardiovascular Cardiovascular: Edema, Leg Edema. absent: Chest Pain, Dyspnea - Gastrointestinal Gastrointestinal: absent: Abdominal Pain, Diarrhea, Hematemesis, Hematochezia, Melena, Nausea, Vomiting Past Patient History - Infectious Disease Hx of Infectious Diseases: None - Past Medical History & Family History Past Medical History?: Yes - Past Social History Smoking Status: Never Smoked - CARDIAC Hx Cardiac Disorders: Yes Hx Hypertension: Yes - PULMONARY Hx Respiratory Disorders: Yes Hx Pneumonia: Yes - NEUROLOGICAL Hx Neurological Disorder: No - HEENT Hx HEENT Problems: No - RENAL Hx Chronic Kidney Disease: No - ENDOCRINE/METABOLIC Hx Endocrine Disorders: No - HEMATOLOGICAL/ONCOLOGICAL Hx Blood Disorders: Yes Hx Anemia: Yes - INTEGUMENTARY Hx Dermatological Problems: No - MUSCULOSKELETAL/RHEUMATOLOGICAL Hx Musculoskeletal Disorders: Yes Hx Falls: Yes - GASTROINTESTINAL Hx Gastrointestinal Disorders: Yes Hx Liver Failure: Yes - GENITOURINARY/GYNECOLOGICAL Hx Genitourinary Disorders: No - PSYCHIATRIC Hx Psychophysiologic Disorder: No Hx Substance Use: No - SURGICAL HISTORY Hx Surgeries: No - ANESTHESIA Hx Anesthesia: No Hx Anesthesia Reactions: No Meds Allergies/Adverse Reactions: Allergies Allergy/AdvReac Type Severity Reaction Status Date / Time No Known Allergies Allergy Verified 04/23/18 11:17 - Medications Medications: Current Medications Enoxaparin Sodium (Lovenox) 40 mg SC DAILY [facility] Last Admin: 04/30/18 09:51 Dose: 40 mg Folic Acid (Folic Acid) 1 mg PO DAILY [facility] Last Admin: 04/30/18 09:50 Dose: 1 mg Metronidazole (Flagyl) 500 mg in 100 mls @ 100 mls/hr IVPB Q8H [facility]; Protocol Last Admin: 04/30/18 09:50 Dose: 100 mls/hr Piperacillin Sod/Tazobactam (Sod 3.375 gm/ Sodium Chloride) 100 mls @ 100 mls/hr IVPB Q8 [facility]; Protocol Last Admin: 04/30/18 13:59 Dose: 100 mls/hr Lorazepam (Ativan) 1 mg PO Q6 PRN PRN Reason: Anxiety Last Admin: 04/29/18 19:16 Dose: 1 mg Multivitamins (Hexavitamin) 1 tab PO DAILY [facility] Last Admin: 04/30/18 09:50 Dose: 1 tab Thiamine HCl (Vitamin B1 Tab) 100 mg PO DAILY [facility] Last Admin: 04/30/18 09:51 Dose: 100 mg Physical Exam - Constitutional Appears: No Acute Distress, Chronically Ill - Head Exam Head Exam: ATRAUMATIC, NORMOCEPHALIC - Eye Exam Eye Exam: absent: Scleral icterus - ENT Exam ENT Exam: Mucous Membranes Dry - Neck Exam Neck exam: Negative for: Lymphadenopathy - Respiratory Exam Respiratory Exam: Decreased Breath Sounds - Cardiovascular Exam Cardiovascular Exam: REGULAR RHYTHM - GI/Abdominal Exam GI & Abdominal Exam: Diminished Bowel Sounds, Soft. absent: Tenderness - Rectal Exam Rectal Exam: Deferred - Exam Exam: NORMAL INSPECTION - Extremities Exam Extremities exam: Positive for: pedal edema, tenderness, pedal pulses present. Negative for: calf tenderness - Back Exam Back exam: absent: CVA tenderness (L), CVA tenderness (R), paraspinal tenderness - Neurological Exam Neurological exam: Alert, CN II-XII Intact, Oriented x3, Reflexes Normal - Psychiatric Exam Psychiatric exam: Normal Mood - Skin Skin Exam: Dry, Erythema, Intact Results - Vital Signs Recent Vital Signs: Last Vital Signs Temp 98 F 04/30/18 07:00 Pulse 97 H 04/30/18 07:00 Resp 20 04/30/18 07:00 BP 137/76 04/30/18 07:00 Pulse Ox 96 04/30/18 07:00 - Labs Result Diagrams: 04/30/18 07:50 04/30/18 07:50 Labs: Laboratory Results - last 24 hr 04/30/18 04/30/18 07:50 07:50 WBC 5.4 RBC 3.05 L Hgb 9.5 L Hct 28.4 L MCV 92.9 MCH 31.1 H MCHC 33.5 RDW 18.2 H Plt Count 80 L MPV 8.8 Neut % (Auto) 38.3 L Lymph % (Auto) 43.0 H [place] % (Auto) 13.1 H Eos % (Auto) 5.0 H Baso % (Auto) 0.6 Neut # (Auto) 2.1 Lymph # (Auto) 2.3 [place] # (Auto) 0.7 Eos # (Auto) 0.3 Baso # (Auto) 0.0 Sodium 128 L Potassium 3.5 L Chloride 99 Carbon Dioxide 25 Anion Gap 7 L BUN 6 L Creatinine 0.5 L Est GFR ( Amer) > 60 Est GFR (Non-Af Amer) > 60 Random Glucose 94 Calcium 7.7 L Total Bilirubin 1.2 AST 47 ALT 29 Alkaline Phosphatase 160 H Total Protein 6.1 L Albumin 2.4 L Globulin 3.7 Albumin/Globulin Ratio 0.7 L Assessment & Plan (1) Acute colitis Status: Acute (2) Alcohol intoxication Status: Acute (3) Hydrocele of testis Status: Acute (4) Alcohol abuse Status: Acute (5) Chronic venous stasis dermatitis Status: Acute (6) Cirrhosis Status: Acute - Assessment and Plan (Free Text) Assessment: AWAIT IMAGING AND CULTURES CONT IV ANTIBIOTICS
--- NOTE | 2018-04-30 15:46 | CP.PCM.PN ---
Subjective - Date & Time of Evaluation Date of Evaluation: 04/30/18 Time of Evaluation: 15:46 Objective - Vital Signs/Intake and Output Vital Signs (last 24 hours): Temp Pulse Resp BP Pulse Ox 98 F 97 H 20 137/76 96 04/30/18 07:00 04/30/18 07:00 04/30/18 07:00 04/30/18 07:00 04/30/18 07:00 Intake and Output: 04/30/18 04/30/18 06:59 18:59 Intake Total 500 Output Total 800 Balance -300 - Medications Medications: Current Medications Enoxaparin Sodium (Lovenox) 40 mg SC DAILY [facility] Last Admin: 04/30/18 09:51 Dose: 40 mg Folic Acid (Folic Acid) 1 mg PO DAILY [facility] Last Admin: 04/30/18 09:50 Dose: 1 mg Metronidazole (Flagyl) 500 mg in 100 mls @ 100 mls/hr IVPB Q8H [facility]; Protocol Last Admin: 04/30/18 09:50 Dose: 100 mls/hr Piperacillin Sod/Tazobactam (Sod 3.375 gm/ Sodium Chloride) 100 mls @ 100 mls/hr IVPB Q8 [facility]; Protocol Last Admin: 04/30/18 13:59 Dose: 100 mls/hr Vancomycin/Sodium Chloride (Vancomycin 1 Gm/Ns 200 Ml) 1 gm in 200 mls @ 133.333 mls/hr IVPB Q12H [facility]; Protocol Lorazepam (Ativan) 1 mg PO Q6 PRN PRN Reason: Anxiety Last Admin: 04/29/18 19:16 Dose: 1 mg Multivitamins (Hexavitamin) 1 tab PO DAILY [facility] Last Admin: 04/30/18 09:50 Dose: 1 tab Thiamine HCl (Vitamin B1 Tab) 100 mg PO DAILY [facility] Last Admin: 04/30/18 09:51 Dose: 100 mg - Labs Labs: 04/30/18 07:50 04/30/18 07:50
[2018-04-30] MEDS: Vancomycin 1 gm/NS 200 ml 1 GM/200 ML BAG IVPB SCH (18:54)
[2018-05-01] MEDS: metroNIDAZOLE IV 500 mg/100 ml 500 MG/100 ML BAG IVPB SCH ×3 (00:56→17:59)
[2018-05-01] MEDS: Vancomycin 1 gm/NS 200 ml 1 GM/200 ML BAG IVPB SCH ×2 (04:04→16:28)
[2018-05-01] MEDS: Piperacillin/Tazobact 3.375 GM in Sodium Chloride 100 ML IVPB SCH ×3 (05:49→21:14)
--- NOTE | 2018-05-01 09:55 | VASCLAB ---
Date of service: 04/28/2018 PROCEDURE: Lower Extremity Venous Duplex Exam. HISTORY: r/o DVT PRIORS: 03/20/2018, normal. TECHNIQUE: Bilateral common femoral, femoral, popliteal and posterior tibial, peroneal and great saphenous veins were evaluated. Flow was assessed with color Doppler, compressibility, assessment of phasic flow and augmentation response. Report prepared by KORY Olvera FINDINGS: RIGHT: 1. Common Femoral Vein: 1.1. Compressibility - Fully compressible: Thrombus - None : Flow - Phasic: Augmentation -Normal: Reflux - None. 2. Femoral Vein: 2.1. Compressibility - Fully compressible: Thrombus - None : Flow - Phasic: Augmentation -Normal: Reflux - None. 3. Popliteal Vein: 3.1. Compressibility - Fully compressible: Thrombus - None : Flow - Phasic: Augmentation -Normal: Reflux - None. 4. Posterior Tibial Vein: 4.1. Compressibility - Fully compressible: Thrombus - None: Flow - Phasic: Augmentation -Normal: Reflux - None. 5. Peroneal Vein: 5.1. Compressibility - Fully compressible: Thrombus - None: Flow - Phasic: Augmentation -Normal: Reflux - None. 6. Great Saphenous Vein: 6.1. Compressibility - Fully compressible: Thrombus - None: Flow - Phasic: Augmentation - Normal: Reflux - None. LEFT: 1. Common Femoral Vein: 1.1. Compressibility - Fully compressible: Thrombus - None: Flow - Phasic: Augmentation -Normal: Reflux - None. 2. Femoral Vein: 2.1. Compressibility - Fully compressible: Thrombus - None: Flow - Phasic: Augmentation -Normal: Reflux - None. 3. Popliteal Vein: 3.1. Compressibility - Fully compressible: Thrombus - None : Flow - Phasic: Augmentation -Normal: Reflux - None. 4. Posterior Tibial Vein: 4.1. Compressibility - Fully compressible: Thrombus - None: Flow - Phasic: Augmentation -Normal: Reflux - None. 5. Peroneal Vein: 5.1. Compressibility - Fully compressible: Thrombus - None: Flow - Phasic: Augmentation -Normal: Reflux - None. 6. Great Saphenous Vein: 6.1. Compressibility - Fully compressible: Thrombus - None: Flow - Phasic: Augmentation - Normal: Reflux - None. OTHER FINDINGS: Right: None significant. Left: None significant. IMPRESSION: Right: No evidence of deep or superficial vein thrombosis of the right lower extremity. Normal valve function noted of the right side. Left: No evidence of deep or superficial vein thrombosis of the left lower extremity. Normal valve function noted of the left side.
[2018-05-01] MEDS: Multiple Vitamins Tab PO SCH (10:01)
[2018-05-01] MEDS: Enoxaparin 40 mg Syringe SC SCH (10:02)
--- NOTE | 2018-05-01 10:45 | NM ---
Date of service: 05/01/2018 PROCEDURE: Nuclear Medicine Hepatobiliary Scan HISTORY: r/o cystic duct obstruction COMPARISON: 04/26/2018. CT abdomen and pelvis TECHNIQUE: . 6.0 mCi of technetium 99m Mebrofenin was administered intravenously. Planar images of the abdomen were obtained at 5 min intervals to 60 mins. Delayed images were also obtained. FINDINGS: LIVER: Timely and homogenous uptake. COMMON BILE DUCT: identified at 10 mins. GALLBLADDER: identified at 20 mins. SMALL BOWEL: Identified at 10 mins. IMPRESSION: Normal Hepatobiliary Scan. The cystic duct is patent.
--- NOTE | 2018-05-01 11:28 | CP.PCM.PN ---
Subjective - Date & Time of Evaluation Date of Evaluation: 05/01/18 Time of Evaluation: 08:00 - Subjective Subjective: 57yo M with HTN, Cirrhosis, ETOH abuse, here for evaluation of bilateral lower extremity swelling and scrotal swelling. ID CONSULTED FOR BILAT LEG SWWELLING, CELLULITIS POSSIBLE CHOLECYSTITIS IV rx in progress Objective - Vital Signs/Intake and Output Vital Signs (last 24 hours): Temp Pulse Resp BP Pulse Ox 98.7 F 98 H 20 125/65 96 04/30/18 23:40 04/30/18 23:40 04/30/18 23:40 04/30/18 23:40 04/30/18 23:40 - Medications Medications: Current Medications Enoxaparin Sodium (Lovenox) 40 mg SC DAILY [facility] Last Admin: 05/01/18 10:02 Dose: 40 mg Folic Acid (Folic Acid) 1 mg PO DAILY [facility] Last Admin: 05/01/18 10:01 Dose: 1 mg Metronidazole (Flagyl) 500 mg in 100 mls @ 100 mls/hr IVPB Q8H [facility]; Protocol Last Admin: 05/01/18 10:02 Dose: 100 mls/hr Piperacillin Sod/Tazobactam (Sod 3.375 gm/ Sodium Chloride) 100 mls @ 100 mls/hr IVPB Q8 [facility]; Protocol Last Admin: 05/01/18 05:49 Dose: 100 mls/hr Vancomycin/Sodium Chloride (Vancomycin 1 Gm/Ns 200 Ml) 1 gm in 200 mls @ 133.333 mls/hr IVPB Q12H [facility]; Protocol Last Admin: 05/01/18 04:04 Dose: 133.333 mls/hr Lorazepam (Ativan) 1 mg PO Q6 PRN PRN Reason: Anxiety Last Admin: 04/29/18 19:16 Dose: 1 mg Multivitamins (Hexavitamin) 1 tab PO DAILY [facility] Last Admin: 05/01/18 10:01 Dose: 1 tab Thiamine HCl (Vitamin B1 Tab) 100 mg PO DAILY [facility] Last Admin: 05/01/18 10:01 Dose: 100 mg - Labs Labs: 04/30/18 07:50 04/30/18 07:50 - Constitutional Appears: Non-toxic, Chronically Ill - Head Exam Head Exam: NORMOCEPHALIC - Eye Exam Eye Exam: absent: Scleral icterus - ENT Exam ENT Exam: Mucous Membranes Dry - Neck Exam Neck Exam: absent: Lymphadenopathy - Respiratory Exam Respiratory Exam: Decreased Breath Sounds - Cardiovascular Exam Cardiovascular Exam: REGULAR RHYTHM - GI/Abdominal Exam GI & Abdominal Exam: Distended - Rectal Exam Rectal Exam: Deferred - Exam Exam: Scrotal Swelling - Extremities Exam Extremities Exam: Pedal Edema, Tenderness - Back Exam Back Exam: absent: CVA tenderness (L), CVA tenderness (R), paraspinal tenderness - Neurological Exam Neurological Exam: Alert, Awake, CN II-XII Intact, Oriented x3 - Psychiatric Exam Psychiatric exam: Depressed Assessment and Plan (1) Acute colitis Status: Acute (2) Alcohol intoxication Status: Acute (3) Hydrocele of testis Status: Acute (4) Alcohol abuse Status: Acute (5) Chronic venous stasis dermatitis Status: Acute (6) Cirrhosis Status: Acute - Assessment and Plan (Free Text) Assessment: cont IV antibiotics as ordered await surgery / GI eval cont leg elevation, nutritional support
--- NOTE | 2018-05-01 17:54 | CP.PCM.PN ---
Subjective - Date & Time of Evaluation Date of Evaluation: 05/01/18 Time of Evaluation: 17:54 Objective - Vital Signs/Intake and Output Vital Signs (last 24 hours): Temp Pulse Resp BP Pulse Ox 98.1 F 96 H 20 137/72 98 05/01/18 15:00 05/01/18 15:00 05/01/18 15:00 05/01/18 15:00 05/01/18 15:00 - Medications Medications: Current Medications Enoxaparin Sodium (Lovenox) 40 mg SC DAILY [facility] Last Admin: 05/01/18 10:02 Dose: 40 mg Folic Acid (Folic Acid) 1 mg PO DAILY [facility] Last Admin: 05/01/18 10:01 Dose: 1 mg Metronidazole (Flagyl) 500 mg in 100 mls @ 100 mls/hr IVPB Q8H [facility]; Protocol Last Admin: 05/01/18 10:02 Dose: 100 mls/hr Piperacillin Sod/Tazobactam (Sod 3.375 gm/ Sodium Chloride) 100 mls @ 100 mls/hr IVPB Q8 [facility]; Protocol Last Admin: 05/01/18 13:43 Dose: 100 mls/hr Vancomycin/Sodium Chloride (Vancomycin 1 Gm/Ns 200 Ml) 1 gm in 200 mls @ 13 3.333 mls/hr IVPB Q12H [facility]; Protocol Last Admin: 05/01/18 16:28 Dose: 133.333 mls/hr Lorazepam (Ativan) 1 mg PO Q6 PRN PRN Reason: Anxiety Last Admin: 04/29/18 19:16 Dose: 1 mg Multivitamins (Hexavitamin) 1 tab PO DAILY [facility] Last Admin: 05/01/18 10:01 Dose: 1 tab Thiamine HCl (Vitamin B1 Tab) 100 mg PO DAILY [facility] Last Admin: 05/01/18 10:01 Dose: 100 mg - Labs Labs: 04/30/18 07:50 04/30/18 07:50
--- NOTE | 2018-05-01 18:05 | CP.PCM.PN ---
<Zoran Fung - Last Filed: 05/01/18 17:59> Subjective - Date & Time of Evaluation Date of Evaluation: 05/01/18 Time of Evaluation: 06:55 - Subjective Subjective: Surgery Progress note. Dr. Gorman service Pt seen and examined at bedside. No acute events overnight. Denies any abdominal pain. No N/V/D. No F/C. No new complaints. Tolerating diet. Objective - Vital Signs/Intake and Output Vital Signs (last 24 hours): Temp Pulse Resp BP Pulse Ox 98.1 F 96 H 20 137/72 98 05/01/18 15:00 05/01/18 15:00 05/01/18 15:00 05/01/18 15:00 05/01/18 15:00 - Medications Medications: Current Medications Enoxaparin Sodium (Lovenox) 40 mg SC DAILY [facility] Last Admin: 05/01/18 10:02 Dose: 40 mg Folic Acid (Folic Acid) 1 mg PO DAILY [facility] Last Admin: 05/01/18 10:01 Dose: 1 mg Metronidazole (Flagyl) 500 mg in 100 mls @ 100 mls/hr IVPB Q8H [facility]; Protocol Last Admin: 05/01/18 10:02 Dose: 100 mls/hr Piperacillin Sod/Tazobactam (Sod 3.375 gm/ Sodium Chloride) 100 mls @ 100 mls/hr IVPB Q8 [facility]; Protocol Last Admin: 05/01/18 13:43 Dose: 100 mls/hr Vancomycin/Sodium Chloride (Vancomycin 1 Gm/Ns 200 Ml) 1 gm in 200 mls @ 133.333 mls/hr IVPB Q12H [facility]; Protocol Last Admin: 05/01/18 16:28 Dose: 133.333 mls/hr Lorazepam (Ativan) 1 mg PO Q6 PRN PRN Reason: Anxiety Last Admin: 04/29/18 19:16 Dose: 1 mg Multivitamins (Hexavitamin) 1 tab PO DAILY [facility] Last Admin: 05/01/18 10:01 Dose: 1 tab Thiamine HCl (Vitamin B1 Tab) 100 mg PO DAILY [facility] Last Admin: 05/01/18 10:01 Dose: 100 mg - Labs Labs: 04/30/18 07:50 04/30/18 07:50 - Constitutional Appears: Non-toxic, No Acute Distress, Older Than Stated Age - Head Exam Head Exam: ATRAUMATIC, NORMAL INSPECTION, NORMOCEPHALIC - Eye Exam Eye Exam: EOMI. absent: Scleral icterus - ENT Exam ENT Exam: Mucous Membranes Moist - Cardiovascular Exam Cardiovascular Exam: absent: JVD - GI/Abdominal Exam GI & Abdominal Exam: Soft. absent: Distended, Guarding, Tenderness, Rebound - Neurological Exam Neurological Exam: Alert, Awake, Oriented x3 Assessment and Plan - Assessment and Plan (Free Text) Assessment: 57yo M here for lower extremity swelling. Surgery consulted for CT findings suspicious for cholecystitis. - low suspicion clinically Plan: - HIDA scan with patent cystic duct. No evidence of cholecystitis. - No plans for surgical intervention at this time Further recs as per Dr. Gorman. Zoran Fung PGY2 surgery <Mykel Gorman - Last Filed: 05/05/18 20:34> Objective - Vital Signs/Intake and Output Vital Signs (last 24 hours): Temp Pulse Resp BP Pulse Ox 98.5 F 83 20 146/82 99 05/04/18 07:00 05/04/18 07:00 05/04/18 07:00 05/04/18 07:00 05/04/18 07:00 - Labs Labs: 05/03/18 08:22 05/03/18 08:22 Attending/Attestation - Attestation I have personally seen and examined this patient.: Yes I have fully participated in the care of the patient.: Yes I have reviewed all pertinent clinical information, including history, physical exam and plan: Yes Notes (Text): Pt was seen and examined at bedside Agree with above note and assessment Pt is improved clinically No evidence of Cholecystitis No general surgical intervention required f.u as outpt Plan d.w pt in detail Risk and benefit explained in detail.
[2018-05-02] MEDS: metroNIDAZOLE IV 500 mg/100 ml 500 MG/100 ML BAG IVPB SCH ×3 (02:00→17:50)
[2018-05-02] MEDS: Vancomycin 1 gm/NS 200 ml 1 GM/200 ML BAG IVPB SCH ×2 (05:00→16:49)
[2018-05-02] MEDS: Piperacillin/Tazobact 3.375 GM in Sodium Chloride 100 ML IVPB SCH ×3 (05:30→21:24)
[2018-05-02] MEDS: Multiple Vitamins Tab PO SCH (10:30)
[2018-05-02] MEDS: Enoxaparin 40 mg Syringe SC SCH (10:30)
--- NOTE | 2018-05-02 12:36 | CP.PCM.PN ---
Subjective - Date & Time of Evaluation Date of Evaluation: 05/02/18 Time of Evaluation: 09:00 - Subjective Subjective: improving nad HIDA negative iv rx for cellulitis legs in progress Objective - Vital Signs/Intake and Output Vital Signs (last 24 hours): Temp Pulse Resp BP Pulse Ox 99.1 F 93 H 20 136/88 99 05/02/18 07:00 05/02/18 07:00 05/02/18 07:00 05/02/18 07:00 05/02/18 07:00 Intake and Output: 05/02/18 05/02/18 06:59 18:59 Intake Total 880 Output Total 1850 Balance -970 - Medications Medications: Current Medications Enoxaparin Sodium (Lovenox) 40 mg SC DAILY [facility] Last Admin: 05/02/18 10:30 Dose: 40 mg Folic Acid (Folic Acid) 1 mg PO DAILY [facility] Last Admin: 05/02/18 10:30 Dose: 1 mg Metronidazole (Flagyl) 500 mg in 100 mls @ 100 mls/hr IVPB Q8H [facility]; Protocol Last Admin: 05/02/18 10:29 Dose: 100 mls/hr Piperacillin Sod/Tazobactam (Sod 3.375 gm/ Sodium Chloride) 100 mls @ 100 mls/hr IVPB Q8 [facility]; Protocol Last Admin: 05/02/18 05:30 Dose: 100 mls/hr Vancomycin/Sodium Chloride (Vancomycin 1 Gm/Ns 200 Ml) 1 gm in 200 mls @ 133.333 mls/hr IVPB Q12H [facility]; Protocol Last Admin: 05/02/18 05:00 Dose: 133.333 mls/hr Lorazepam (Ativan) 1 mg PO Q6 PRN PRN Reason: Anxiety Last Admin: 04/29/18 19:16 Dose: 1 mg Multivitamins (Hexavitamin) 1 tab PO DAILY [facility] Last Admin: 05/02/18 10:30 Dose: 1 tab Thiamine HCl (Vitamin B1 Tab) 100 mg PO DAILY [facility] Last Admin: 05/02/18 10:30 Dose: 100 mg - Labs Labs: 04/30/18 07:50 04/30/18 07:50 - Constitutional Appears: Non-toxic, Chronically Ill - Head Exam Head Exam: NORMOCEPHALIC - Eye Exam Eye Exam: absent: Scleral icterus - ENT Exam ENT Exam: Mucous Membranes Dry - Neck Exam Neck Exam: absent: Lymphadenopathy - Respiratory Exam Respiratory Exam: Decreased Breath Sounds - Cardiovascular Exam Cardiovascular Exam: REGULAR RHYTHM - Rectal Exam Rectal Exam: Deferred - Exam Exam: Scrotal Swelling - Back Exam Back Exam: absent: CVA tenderness (L), CVA tenderness (R) Assessment and Plan (1) Acute colitis Status: Acute (2) Alcohol intoxication Status: Acute (3) Hydrocele of testis Status: Acute (4) Alcohol abuse Status: Acute (5) Chronic venous stasis dermatitis Status: Acute (6) Cirrhosis Status: Acute - Assessment and Plan (Free Text) Assessment: renew iv rx
--- NOTE | 2018-05-02 16:02 | CP.PCM.PN ---
Subjective - Date & Time of Evaluation Date of Evaluation: 05/02/18 Time of Evaluation: 16:02 Objective - Vital Signs/Intake and Output Vital Signs (last 24 hours): Temp Pulse Resp BP Pulse Ox 98.3 F 97 H 20 140/80 98 05/02/18 15:38 05/02/18 15:38 05/02/18 15:38 05/02/18 15:38 05/02/18 15:38 Intake and Output: 05/02/18 05/02/18 06:59 18:59 Intake Total 880 Output Total 1850 Balance -970 - Medications Medications: Current Medications Enoxaparin Sodium (Lovenox) 40 mg SC DAILY [facility] Last Admin: 05/02/18 10:30 Dose: 40 mg Folic Acid (Folic Acid) 1 mg PO DAILY [facility] Last Admin: 05/02/18 10:30 Dose: 1 mg Metronidazole (Flagyl) 500 mg in 100 mls @ 100 mls/hr IVPB Q8H [facility]; Protocol Last Admin: 05/02/18 10:29 Dose: 100 mls/hr Piperacillin Sod/Tazobactam (Sod 3.375 gm/ Sodium Chloride) 100 mls @ 100 mls/hr IVPB Q8 [facility]; Protocol Last Admin: 05/02/18 13:36 Dose: 100 mls/hr Vancomycin/Sodium Chloride (Vancomycin 1 Gm/Ns 200 Ml) 1 gm in 200 mls @ 133.333 mls/hr IVPB Q12H [facility]; Protocol Last Admin: 05/02/18 05:00 Dose: 133.333 mls/hr Lorazepam (Ativan) 1 mg PO Q6 PRN PRN Reason: Anxiety Last Admin: 04/29/18 19:16 Dose: 1 mg Multivitamins (Hexavitamin) 1 tab PO DAILY [facility] Last Admin: 05/02/18 10:30 Dose: 1 tab Thiamine HCl (Vitamin B1 Tab) 100 mg PO DAILY [facility] Last Admin: 05/02/18 10:30 Dose: 100 mg - Labs Labs: 04/30/18 07:50 04/30/18 07:50
[2018-05-03] MEDS: Vancomycin 1 gm/NS 200 ml 1 GM/200 ML BAG IVPB SCH ×2 (03:11→15:37)
[2018-05-03] MEDS: Piperacillin/Tazobact 3.375 GM in Sodium Chloride 100 ML IVPB SCH ×3 (05:19→21:42)
[2018-05-03 08:31] LABS: BASO % 0.7 % (0.0-2.0); EOS # 0.3 K/uL (0.0-0.7); EOS % 4.6 % (0.0-4.0); HEMOGLOBIN 9.3 g/dL (12.0-18.0); LYMPH # 2.5 K/uL (1.0-4.3); LYMPH % 44.9 % (20.0-40.0); MEAN CELL VOLUME 92.8 fL (80.0-94.0); MEAN CORPUSCULAR HEMOGLOBIN 30.5 pg (27.0-31.0); MEAN CORPUSCULAR HGB CONC 32.9 g/dL (33.0-37.0); MEAN PLATELET VOLUME 8.8 fL (7.2-11.7); MONO % 18.8 % (0.0-10.0); NEUT # 1.7 K/uL (1.8-7.0); NRBC % 0.1 % (0.0-2.0); RBC 3.05 Mil/uL (4.40-5.90); RED CELL DISTRIBUTION WIDTH 18.5 % (11.5-14.5); WHITE BLOOD COUNT 5.5 K/uL (4.8-10.8)
[2018-05-03 08:42] LABS: BLOOD UREA NITROGEN 7 mg/dL (9-20); CALCIUM 7.7 mg/dl (8.6-10.4); GFR NON-AFRICAN AMERICAN > 60
[2018-05-03] MEDS: Multiple Vitamins Tab PO SCH (09:23)
[2018-05-03] MEDS: Enoxaparin 40 mg Syringe SC SCH (09:23)
[2018-05-03] MEDS ORDERED: Potassium Chloride 20 mEq/15 ml LIQ UD PO ONE (11:15)
--- NOTE | 2018-05-03 16:33 | CP.PCM.PN ---
Subjective - Date & Time of Evaluation Date of Evaluation: 05/03/18 Time of Evaluation: 16:33 Objective - Vital Signs/Intake and Output Vital Signs (last 24 hours): Temp Pulse Resp BP Pulse Ox 98.4 F 86 20 129/68 97 05/03/18 07:00 05/03/18 07:00 05/03/18 07:00 05/03/18 07:00 05/03/18 07:00 Intake and Output: 05/03/18 05/03/18 06:59 18:59 Intake Total 1120 Output Total 1900 Balance -780 - Medications Medications: Current Medications Enoxaparin Sodium (Lovenox) 40 mg SC DAILY [facility] Last Admin: 05/03/18 09:23 Dose: 40 mg Folic Acid (Folic Acid) 1 mg PO DAILY [facility] Last Admin: 05/03/18 09:23 Dose: 1 mg Piperacillin Sod/Tazobactam (Sod 3.375 gm/ Sodium Chloride) 100 mls @ 100 mls/hr IVPB Q8 [facility]; Protocol Last Admin: 05/03/18 14:54 Dose: 100 mls/hr Vancomycin/Sodium Chloride (Vancomycin 1 Gm/Ns 200 Ml) 1 gm in 200 mls @ 133.333 mls/hr IVPB Q12H [facility]; Protocol Last Admin: 05/03/18 15:37 Dose: 133.333 mls/hr Lorazepam (Ativan) 1 mg PO Q6 PRN PRN Reason: Anxiety Last Admin: 04/29/18 19:16 Dose: 1 mg Multivitamins (Hexavitamin) 1 tab PO DAILY [facility] Last Admin: 05/03/18 09:23 Dose: 1 tab Thiamine HCl (Vitamin B1 Tab) 100 mg PO DAILY [facility] Last Admin: 05/03/18 09:23 Dose: 100 mg - Labs Labs: 05/03/18 08:22 05/03/18 08:22
--- NOTE | 2018-05-03 16:44 | CP.PCM.PN ---
Subjective - Date & Time of Evaluation Date of Evaluation: 05/03/18 Time of Evaluation: 08:00 - Subjective Subjective: awake alert nad denies fever scrotal swelling less Objective - Vital Signs/Intake and Output Vital Signs (last 24 hours): Temp Pulse Resp BP Pulse Ox 98.4 F 86 20 129/68 97 05/03/18 07:00 05/03/18 07:00 05/03/18 07:00 05/03/18 07:00 05/03/18 07:00 Intake and Output: 05/03/18 05/03/18 06:59 18:59 Intake Total 1120 Output Total 1900 Balance -780 - Medications Medications: Current Medications Enoxaparin Sodium (Lovenox) 40 mg SC DAILY [facility] Last Admin: 05/03/18 09:23 Dose: 40 mg Folic Acid (Folic Acid) 1 mg PO DAILY [facility] Last Admin: 05/03/18 09:23 Dose: 1 mg Piperacillin Sod/Tazobactam (Sod 3.375 gm/ Sodium Chloride) 100 mls @ 100 mls/hr IVPB Q8 [facility]; Protocol Last Admin: 05/03/18 14:54 Dose: 100 mls/hr Vancomycin/Sodium Chloride (Vancomycin 1 Gm/Ns 200 Ml) 1 gm in 200 mls @ 133.333 mls/hr IVPB Q12H [facility]; Protocol Last Admin: 05/03/18 15:37 Dose: 133.333 mls/hr Lorazepam (Ativan) 1 mg PO Q6 PRN PRN Reason: Anxiety Last Admin: 04/29/18 19:16 Dose: 1 mg Multivitamins (Hexavitamin) 1 tab PO DAILY [facility] Last Admin: 05/03/18 09:23 Dose: 1 tab Thiamine HCl (Vitamin B1 Tab) 100 mg PO DAILY [facility] Last Admin: 05/03/18 09:23 Dose: 100 mg - Labs Labs: 05/03/18 08:22 05/03/18 08:22 - Constitutional Appears: Non-toxic, Chronically Ill - Head Exam Head Exam: NORMOCEPHALIC - Eye Exam Eye Exam: absent: Scleral icterus - ENT Exam ENT Exam: Mucous Membranes Dry - Neck Exam Neck Exam: absent: Lymphadenopathy - Respiratory Exam Respiratory Exam: Decreased Breath Sounds - Cardiovascular Exam Cardiovascular Exam: REGULAR RHYTHM - GI/Abdominal Exam GI & Abdominal Exam: Distended - Rectal Exam Rectal Exam: Deferred - Exam Exam: NORMAL INSPECTION - Extremities Exam Extremities Exam: absent: Pedal Edema - Back Exam Back Exam: absent: CVA tenderness (L), CVA tenderness (R) - Neurological Exam Neurological Exam: Alert, Awake, CN II-XII Intact Assessment and Plan (1) Acute colitis Status: Acute (2) Alcohol intoxication Status: Acute (3) Hydrocele of testis Status: Acute (4) Alcohol abuse Status: Acute (5) Chronic venous stasis dermatitis Status: Acute (6) Cirrhosis Status: Acute - Assessment and Plan (Free Text) Assessment: cont iv antibiotics
[2018-05-03] MEDS: Ammonium Lactate 12% Lotion (225 g) EXT SCH (18:00)
[2018-05-04] MEDS: Vancomycin 1 gm/NS 200 ml 1 GM/200 ML BAG IVPB SCH (04:00)
[2018-05-04] MEDS: Ammonium Lactate 12% Lotion (225 g) EXT SCH (05:30)
[2018-05-04] MEDS: Piperacillin/Tazobact 3.375 GM in Sodium Chloride 100 ML IVPB SCH (05:59)
[2018-05-04 08:19] VITALS: BP 146/82; PULSE 83; TEMP 98.5; O2SAT 99
[2018-05-04] MEDS: Multiple Vitamins Tab PO SCH (11:07)
[2018-05-04] MEDS: Enoxaparin 40 mg Syringe SC SCH (11:08)
== END 2018-05-04 13:50 | disposition home or self-care (01) | DRG 775 ==
LOC: C.ER 18:13 → C.9E 04-27 03:29 → C.6T 04-27 14:30
PROVIDERS: ADMIT Internal Medicine Critical Care Medicine; ATTEND Internal Medicine Critical Care Medicine
DX: F10.120 Alcohol abuse with intoxication, uncomplicated (principal); K74.60 Unspecified cirrhosis of liver; L03.115 Cellulitis of right lower limb; I10 Essential (primary) hypertension; Y90.8 Blood alcohol level of 240 mg/100 ml or more; I87.2 Venous insufficiency (chronic) (peripheral); K52.9 Noninfective gastroenteritis and colitis, unspecified; N43.3 Hydrocele, unspecified; N50.89 Other specified disorders of the male genital organs; Z59.0 Homelessness; Z87.01 Personal history of pneumonia (recurrent); L03.116 Cellulitis of left lower limb

== ENCOUNTER 2018-05-20 18:32 | Emergency (ER) | payer MEDICAID ==
[2018-05-20 18:52] VITALS: BP 130/56; PULSE 77; RESP 17; TEMP 98.1; O2SAT 100
--- NOTE | 2018-05-21 00:08 | C.PDOC ---
History Of Present Illness 57 year old male is brought to the ED by EMS for public intoxication. Patient was picked up from [facility] where he was found intoxicated. Patient admits to drinking alcohol today. Patient c/o right leg and shoulder pain, after an alleged fall 3 weeks ago, on arrival patient moving extremities without difficulty. Patient denies SI/HI, hallucinations, other medical complaints. Chief Complaint (Nursing): Lower Extremity Problem/Injury History Per: Patient, EMS History/Exam Limitations: intoxication Onset/Duration Of Symptoms: Hrs Current Symptoms Are (Timing): Still Present Suicide/Self Injury Attempted (Context): None Modifying Factor(s): Alcohol Associated Symptoms: denies: Depression, Suicidal Thoughts, Suicidal Plan Additional History Per: Patient, EMS Past Medical History Reviewed: Historical Data, Nursing Documentation, Vital Signs Vital Signs: Last Vital Signs Temp 98.1 F 05/20/18 18:51 Pulse 77 05/20/18 18:51 Resp 17 05/20/18 18:51 BP 130/56 L 05/20/18 18:51 Pulse Ox 100 05/20/18 18:51 - Medical History PMH: Anemia, HTN, Pneumonia Denies: Chronic Kidney Disease Surgical History: No Surg Hx - [facility] Procedures DRAINAGE OF LEFT PLEURAL CAVITY, PERCUTANEOUS APPROACH (02/27/18) INSERTION OF ENDOTRACHEAL AIRWAY INTO TRACHEA, VIA OPENING (02/27/18) INSERTION OF INFUSION DEV INTO L SUBCLAV VEIN, PERC APPROACH (02/27/18) RESPIRATORY VENTILATION, GREATER THAN 96 CONSECUTIVE HOURS (02/27/18) Family History: States: Unknown Family Hx - Social History Hx Tobacco Use: No Hx Alcohol Use: Yes Hx Substance Use: No - Immunization History Hx Tetanus Toxoid Vaccination: No Hx Influenza Vaccination: No Hx Pneumococcal Vaccination: No Review Of Systems Constitutional: Negative for: Fever, Chills Cardiovascular: Negative for: Chest Pain Respiratory: Negative for: Shortness of Breath Gastrointestinal: Negative for: Nausea, Vomiting, Abdominal Pain Musculoskeletal: Positive for: Arm Pain, Leg Pain Skin: Negative for: Rash Psych: Negative for: Depression, Suicidal ideation Physical Exam - Physical Exam Appears: Non-toxic, No Acute Distress, Other (intoxicated) Skin: Normal Color, Warm, Dry Head: Atraumatic, Normacephalic Eye(s): bilateral: Normal Inspection Neck: Normal ROM, Supple Chest: Symmetrical Cardiovascular: Rhythm Regular Respiratory: Normal Breath Sounds, No Rales, No Rhonchi, No Wheezing Gastrointestinal/Abdominal: Soft, No Tenderness, No Guarding, No Rebound Extremity: Capillary Refill (< 2 seconds) Extremity: Bilateral: Atraumatic, Normal Color And Temperature, Normal ROM Pulses: Left Radial: Normal, Right Radial: Normal Neurological/Psych: Oriented x3, Normal Speech, Normal Cognition Gait: Steady ED Course And Treatment O2 Sat by Pulse Oximetry: 100 (On RA) Pulse Ox Interpretation: Normal Disposition - Disposition Referrals: [facility] [Outside] [facility] [Outside] Disposition Time: 20:00 Condition: IMPROVED Additional Instructions: The emergency medical care you received today was directed at your acute symptoms. If you were prescribed any medication, please fill it and take as directed. It may take several days for your symptoms to resolve. Return to the Emergency Department if your symptoms worsen, do not improve, or if you have any other problems. Please contact your doctor or call one of the physicians/clinics you have been referred to that are listed on the Patient Visit Information form that is included in your discharge packet. Bring any paperwork you were given at discharge with you along with any medications you are taking to your follow up visit. Our treatment cannot replace ongoing medical care by a primary care provider outside of the emergency department. Thank you for allowing the [facility] team to be part of your care today. Follow up with the clinic next week for further evaluation. Instructions: Alcohol Abuse and Alcoholism (DC) Forms: [facility] (Eritrean) - Clinical Impression Clinical Impression: Alcohol abuse - Scribe Statement The provider has reviewed the documentation as recorded by the Scribe Neel Johnson All medical record entries made by the Scribe were at my direction and personally dictated by me. I have reviewed the chart and agree that the record accurately reflects my personal performance of the history, physical exam, medical decision making, and the department course for this patient. I have also personally directed, reviewed, and agree with the discharge instructions and disposition.
== END 2018-05-20 19:04 | disposition left against medical advice (07) ==
LOC: C.ER 18:32
DX: F10.10 Alcohol abuse, uncomplicated (principal); I10 Essential (primary) hypertension

== ENCOUNTER 2018-05-22 22:52 | Emergency (ER) | payer MEDICAID ==
[2018-05-22 23:05] VITALS: RESP 20
--- NOTE | 2018-05-23 00:32 | C.PDOC ---
Time Seen by Provider: 05/22/18 23:10 Chief Complaint (Nursing): Substance Abuse Past Medical History Vital Signs: Last Vital Signs Temp 96 F L 05/22/18 23:02 Pulse 89 05/22/18 23:02 Resp 20 05/22/18 23:02 BP 118/70 05/22/18 23:02 Pulse Ox 96 05/22/18 23:02 - Medical History PMH: Anemia, HTN, Pneumonia Denies: Chronic Kidney Disease - [facility] Procedures DRAINAGE OF LEFT PLEURAL CAVITY, PERCUTANEOUS APPROACH (02/27/18) INSERTION OF ENDOTRACHEAL AIRWAY INTO TRACHEA, VIA OPENING (02/27/18) INSERTION OF INFUSION DEV INTO L SUBCLAV VEIN, PERC APPROACH (02/27/18) RESPIRATORY VENTILATION, GREATER THAN 96 CONSECUTIVE HOURS (02/27/18) Family History: States: Unknown Family Hx - Social History Hx Tobacco Use: No Hx Alcohol Use: Yes Hx Substance Use: No - Immunization History Hx Tetanus Toxoid Vaccination: No Hx Influenza Vaccination: No Hx Pneumococcal Vaccination: No ED Course And Treatment O2 Sat by Pulse Oximetry: 96 Disposition - Disposition Forms: [facility] (Congolese)
--- NOTE | 2018-05-23 00:32 | C.PDOC ---
History Of Present Illness 57 year old male brought in by EMS for public intoxication. Patient states he did not get into the detention on time. Denies any complaints at this time. <Michael Shell - Last Filed: 05/23/18 00:33> History Per: Patient, EMS History/Exam Limitations: no limitations Onset/Duration Of Symptoms: Hrs Current Symptoms Are (Timing): Still Present Suicide/Self Injury Attempted (Context): None Modifying Factor(s): Alcohol Associated Symptoms: denies: Depression, Suicidal Thoughts Involuntary Hold By: None Recent travel outside of the [place]: No <Michael Shell - Last Filed: 05/23/18 00:33> <Samson Vivar - Last Filed: 05/23/18 05:44> Time Seen by Provider: 05/22/18 23:10 Chief Complaint (Nursing): Substance Abuse Past Medical History Reviewed: Historical Data, Nursing Documentation, Vital Signs Vital Signs: Last Vital Signs Temp 96 F L 05/22/18 23:02 Pulse 89 05/22/18 23:02 Resp 20 05/22/18 23:02 BP 118/70 05/22/18 23:02 Pulse Ox 96 05/22/18 23:02 - Medical History PMH: Anemia, HTN, Pneumonia Denies: Chronic Kidney Disease - [facility] Procedures DRAINAGE OF LEFT PLEURAL CAVITY, PERCUTANEOUS APPROACH (02/27/18) INSERTION OF ENDOTRACHEAL AIRWAY INTO TRACHEA, VIA OPENING (02/27/18) INSERTION OF INFUSION DEV INTO L SUBCLAV VEIN, PERC APPROACH (02/27/18) RESPIRATORY VENTILATION, GREATER THAN 96 CONSECUTIVE HOURS (02/27/18) Family History: States: Unknown Family Hx - Social History Hx Tobacco Use: No Hx Alcohol Use: Yes Hx Substance Use: No - Immunization History Hx Tetanus Toxoid Vaccination: No Hx Influenza Vaccination: No Hx Pneumococcal Vaccination: No <Michael Shell - Last Filed: 05/23/18 00:33> Vital Signs: Last Vital Signs Temp 96 F L 05/22/18 23:02 Pulse 71 05/23/18 02:33 Resp 20 05/23/18 02:33 BP 102/68 05/23/18 02:33 Pulse Ox 98 05/23/18 02:33 - [facility] Procedures DRAINAGE OF LEFT PLEURAL CAVITY, PERCUTANEOUS APPROACH (02/27/18) INSERTION OF ENDOTRACHEAL AIRWAY INTO TRACHEA, VIA OPENING (02/27/18) INSERTION OF INFUSION DEV INTO L SUBCLAV VEIN, PERC APPROACH (02/27/18) RESPIRATORY VENTILATION, GREATER THAN 96 CONSECUTIVE HOURS (02/27/18) <Samson Vivar - Last Filed: 05/23/18 05:44> Review Of Systems Constitutional: Negative for: Fever, Chills Cardiovascular: Negative for: Chest Pain, Palpitations Respiratory: Negative for: Cough, Shortness of Breath Gastrointestinal: Negative for: Nausea, Vomiting Neurological: Negative for: Weakness, Numbness <Michael Shell - Last Filed: 05/23/18 00:33> Physical Exam - Physical Exam Appears: Non-toxic, Other (Elderly male, foul smelling, disheveled, verbally abusive, ETOH on breath) Skin: Normal Color, Warm, Dry Head: Atraumatic, Normacephalic Eye(s): bilateral: Normal Inspection Oral Mucosa: Moist Neck: Normal, Supple Chest: Symmetrical, No Tenderness Cardiovascular: Rhythm Regular Respiratory: Normal Breath Sounds, No Rales, No Rhonchi, No Wheezing Gastrointestinal/Abdominal: Soft, No Tenderness Back: No CVA Tenderness Neurological/Psych: Oriented x3 Gait: Unsteady <Michael Shell E - Last Filed: 05/23/18 00:33> ED Course And Treatment O2 Sat by Pulse Oximetry: 96 (Room air) Pulse Ox Interpretation: Normal <Michael Shell Umu Dickey Last Filed: 05/23/18 00:33> Medical Decision Making Medical Decision Making: typical homeless, alcohol abuse <Michael Shell - Last Filed: 05/23/18 00:33> Disposition - Disposition Disposition Time: 01:00 <Michael Shell Noble Last Filed: 05/23/18 00:33> Counseled Patient/Family Regarding: Studies Performed, Diagnosis, Need For Followup <Samson Vivar - Last Filed: 05/23/18 05:44> - Disposition Referrals: [facility] [Outside] Disposition: HOME/ ROUTINE Condition: FAIR Instructions: Alcohol Abuse and Alcoholism (DC) Forms: [facility] (Kyrgyz) - Clinical Impression Clinical Impression: Alcohol intoxication, Alcohol abuse - Scribe Statement The provider has reviewed the documentation as recorded by the Scribe Gustavo Alonzo All medical record entries made by the Scribe were at my direction and personally dictated by me. I have reviewed the chart and agree that the record accurately reflects my personal performance of the history, physical exam, medical decision making, and the department course for this patient. I have also personally directed, reviewed, and agree with the discharge instructions and disposition. <Michael Shell E - Last Filed: 05/23/18 00:33> Physician Patient Turnover Patient Signed Over To: Samson Vivar Handoff Comments: dipo in AM when sober <Michael Shell E - Last Filed: 05/23/18 00:33>
[2018-05-23 02:34] VITALS: O2SAT 98
[2018-05-23 05:50] VITALS: BP 119/70; PULSE 79; TEMP 97.2
== END 2018-05-23 05:50 | disposition home or self-care (01) ==
LOC: C.ER 22:52
DX: F10.129 Alcohol abuse with intoxication, unspecified (principal); Y90.9 Presence of alcohol in blood, level not specified

== ENCOUNTER 2018-08-10 22:31 | Inpatient (IN) | payer MEDICAID ==
[2018-08-10 22:31] VITALS: BMI 21.8
[2018-08-10] MEDS ORDERED: Sodium Chloride 0.9% 1,000 ML IV ONE ×3 (22:52→23:55)
[2018-08-10 23:08] LABS: BASO % 0.6 % (0.0-2.0); EOS % 0.4 % (0.0-4.0); LYMPH # 0.9 K/uL (1.0-4.3); LYMPH % 10.8 % (20.0-40.0); MEAN CELL VOLUME 78.5 fL (80.0-94.0); MEAN CORPUSCULAR HEMOGLOBIN 25.8 pg (27.0-31.0); MEAN CORPUSCULAR HGB CONC 32.8 g/dL (33.0-37.0); MEAN PLATELET VOLUME 6.9 fL (7.2-11.7); MONO # 0.1 K/uL (0.0-0.8); MONO % 1.6 % (0.0-10.0); NEUT # 6.9 K/uL (1.8-7.0); NEUT % 86.6 % (50.0-75.0); RBC 3.86 Mil/uL (4.40-5.90); RED CELL DISTRIBUTION WIDTH 20.4 % (11.5-14.5)
[2018-08-10] MEDS ORDERED: Sodium Chloride 0.9% 1,000 ML ONE (23:09)
[2018-08-10 23:28] LABS: ALB/GLOB RATIO 0.9 (1.0-2.1); ALBUMIN 3.8 g/dL (3.5-5.0); ALT/SGPT 14 U/L (21-72); AST/SGOT 98 U/L (17-59); BLOOD UREA NITROGEN 10 mg/dL (9-20); CALCIUM 8.5 mg/dl (8.6-10.4); GFR NON-AFRICAN AMERICAN > 60
--- NOTE | 2018-08-10 23:32 | C.PDOC ---
History Of Present Illness 57 year old male is brought to the ED by EMS for public intoxication. Patient was picked up from [facility] where he was [place], as per EMS patient with diffuse diarrhea. As per EMS patient was initially found with no pants. Patient admits to drinking two and a half paints of vodka. Patient has multiple evaluations for alcoholism in the past. Patient denies SI/HI, hallucinations, other medical complaint at this time. Chief Complaint (Nursing): GI Problem History Per: Patient, EMS History/Exam Limitations: intoxication Onset/Duration Of Symptoms: Hrs Current Symptoms Are (Timing): Still Present Suicide/Self Injury Attempted (Context): None Modifying Factor(s): Alcohol Associated Symptoms: denies: Depression, Suicidal Thoughts, Suicidal Plan Recent travel outside of the [place]: No Additional History Per: Patient, EMS Past Medical History Reviewed: Historical Data, Nursing Documentation, Vital Signs Vital Signs: Last Vital Signs Temp 98.6 F 08/10/18 22:42 Pulse 145 H 08/10/18 23:29 Resp 18 08/10/18 23:29 BP 127/64 08/10/18 23:29 Pulse Ox 98 08/10/18 23:29 - Medical History PMH: Anemia, HTN, Pneumonia Denies: Chronic Kidney Disease Surgical History: No Surg Hx - [facility] Procedures DRAINAGE OF LEFT PLEURAL CAVITY, PERCUTANEOUS APPROACH (02/27/18) INSERTION OF ENDOTRACHEAL AIRWAY INTO TRACHEA, VIA OPENING (02/27/18) INSERTION OF INFUSION DEV INTO L SUBCLAV VEIN, PERC APPROACH (02/27/18) RESPIRATORY VENTILATION, GREATER THAN 96 CONSECUTIVE HOURS (02/27/18) Family History: States: Unknown Family Hx - Social History Hx Tobacco Use: No Hx Alcohol Use: Yes Hx Substance Use: No - Immunization History Hx Tetanus Toxoid Vaccination: No Hx Influenza Vaccination: No Hx Pneumococcal Vaccination: No Review Of Systems Constitutional: Negative for: Fever, Chills Cardiovascular: Negative for: Chest Pain Respiratory: Negative for: Shortness of Breath Gastrointestinal: Positive for: Diarrhea. Negative for: Nausea, Vomiting, Abdominal Pain Skin: Negative for: Rash Psych: Negative for: Depression, Suicidal ideation Physical Exam - Physical Exam Appears: Non-toxic, Other (much older than stated age) Skin: Normal Color, Warm, Dry Head: Atraumatic, Normacephalic Eye(s): bilateral: Normal Inspection Oral Mucosa: Moist Neck: Normal ROM, Supple Chest: Symmetrical Cardiovascular: Rhythm Regular (tachycardic) Respiratory: Normal Breath Sounds, No Rales, No Rhonchi, No Wheezing Gastrointestinal/Abdominal: Soft, No Tenderness, No Distention Extremity: Normal ROM, No Tenderness, No Swelling, Other (bilateral feet macera bryn skin, foul odor) Neurological/Psych: Oriented x3, Other (tremors) ED Course And Treatment - Laboratory Results Result Diagrams: 08/23/18 11:28 08/23/18 11:28 Lab Results: Total Bilirubin 1.4 mg/dL (0.2-1.3) H 08/10/18 22:52 AST 98 U/L (17-59) H D 08/10/18 22:52 ALT 14 U/L (21-72) L D 08/10/18 22:52 Alkaline Phosphatase 175 U/L (38-126) H 08/10/18 22:52 Total Protein 8.2 g/dL (6.3-8.3) 08/10/18 22:52 Albumin 3.8 g/dL (3.5-5.0) 08/10/18 22:52 Globulin 4.4 gm/dL (2.2-3.9) H 08/10/18 22:52 Albumin/Globulin Ratio 0.9 (1.0-2.1) L 08/10/18 22:52 O2 Sat by Pulse Oximetry: 98 (ON RA) Pulse Ox Interpretation: Normal Critical Care Time - Critical Care Note Total Time (in mins): 90 Documented critical care: time excludes all time spent performing seperately billable procedures. Medical Decision Making Medical Decision Making: Plan: * Labs * EKG * UA * Ativan 2 mg IVP * IV fluids alcohol withdrawal usually 2.5 pts Vodka/day Ativan pushes for tremors and tachycardia tachycardia vs ABISAI vs A flutter fluid bolus and Cardizem Dehydration vs hyponatremia ? beer potomania vs dehydration but creat wnl hydrate and correct sodium slowly Microcytic Anemia ? GIB, chronic prob alcoholic gastritis Protonix IV diarrhea ? etiology no elev wbc's Hypomagnesemia Mg 2g IV repleated follow Disposition Doctor Will See Patient In The: Hospital Counseled Patient/Family Regarding: Studies Performed, Diagnosis - Disposition Disposition: HOSPITALIZED Disposition Time: 07:00 Condition: CRITICAL - Clinical Impression Clinical Impression: Alcohol abuse, Diarrhea, Alcohol withdrawal delirium - Scribe Statement The provider has reviewed the documentation as recorded by the Scribe Neel Johnson All medical record entries made by the Scribe were at my direction and personally dictated by me. I have reviewed the chart and agree that the record accurately reflects my personal performance of the history, physical exam, medical decision making, and the department course for this patient. I have also personally directed, reviewed, and agree with the discharge instructions and disposition.
[2018-08-10] MEDS ORDERED: Magnesium Sulfate 1 gm in D5W 1 GM/100 ML BAG IV ONE (23:55)
[2018-08-11] MEDS ORDERED: Magnesium Sulfate 1 gm in D5W 2 GM/200 ML BAG IVPB ONE (00:04)
--- NOTE | 2018-08-11 00:59 | CP.PCM.CON ---
<EnzoGadsden M - Last Filed: 08/11/18 05:28> History of Present Illness - History of Present Illness History of Present Illness: 57 y/o male with pmx of ETOH abuse previously seen by publicity writer in ICU setting admitted to [facility] [place] for "trying to defecate on rail" -Patient was given IV ativan and patient is sedated no history could be obtained. PMX; ETOH use Psuf hx: unknown allergiess: unknown From previous consult: PMD: Sonya Dove PMHx: HTN, subdural hematoma, lice, thrombocytopenia, anemia, ETOH abuse, liver cirrhosis, pneumonia Meds: metoprolol tartrate 12.5mg BID, Augmenten 875/125 mg BID, Lactobacillus 1 cap BID, aspirin 81mg BID PSHx: None Allergies: NKDA SHx: Extensive hx of ETOH abuse FHx: unknown Review of Systems - Review of Systems Systems not reviewed;Unavailable: Altered Mental Status, Intoxicated, Uncooperative Past Patient History - Infectious Disease Hx of Infectious Diseases: None - Tetanus Immunizations Tetanus Immunization: Unknown - Past Medical History & Family History Past Medical History?: Yes - Past Social History Smoking Status: Never Smoked - CARDIAC Hx Hypertension: Yes - PULMONARY Hx Pneumonia: Yes - NEUROLOGICAL Hx Neurological Disorder: No - HEENT Hx HEENT Problems: No - RENAL Hx Chronic Kidney Disease: No - ENDOCRINE/METABOLIC Hx Endocrine Disorders: No - HEMATOLOGICAL/ONCOLOGICAL Hx Anemia: Yes - INTEGUMENTARY Hx Dermatological Problems: No - MUSCULOSKELETAL/RHEUMATOLOGICAL Hx Musculoskeletal Disorders: Yes Hx Falls: Yes - GASTROINTESTINAL Hx Gastrointestinal Disorders: Yes Hx Liver Failure: Yes - GENITOURINARY/GYNECOLOGICAL Hx Genitourinary Disorders: No - PSYCHIATRIC Hx Substance Use: No - SURGICAL HISTORY Hx Surgeries: No - ANESTHESIA Hx Anesthesia: No Hx Anesthesia Reactions: No Meds Allergies/Adverse Reactions: Allergies Allergy/AdvReac Type Severity Reaction Status Date / Time No Known Allergies Allergy Verified 08/10/18 22:44 - Medications Medications: Current Medications Chlordiazepoxide (Librium) 50 mg PO Q6H [facility] Last Admin: 08/11/18 00:49 Dose: Not Given Folic Acid (Folic Acid) 1 mg PO STAT STA Stop: 08/11/18 00:56 Multivitamins/Vitamin C (Multi-Delyn Liquid) 5 ml PO DAILY [facility] Thiamine HCl (Vitamin B1 Inj) 200 mg IV Q8 [facility] Stop: 08/12/18 14:01 Physical Exam - Head Exam Head Exam: ATRAUMATIC - Respiratory Exam Respiratory Exam: NORMAL BREATHING PATTERN - Cardiovascular Exam Cardiovascular Exam: +S1, +S2 - GI/Abdominal Exam GI & Abdominal Exam: Soft, Tenderness - Extremities Exam Extremities exam: Positive for: pedal edema - Neurological Exam Neurological exam: Altered - Skin Skin Exam: Normal Color Results - Vital Signs Recent Vital Signs: Last Vital Signs Temp 98.6 F 08/10/18 22:42 Pulse 133 H 08/11/18 00:33 Resp 18 08/11/18 00:33 BP 123/48 L 08/11/18 00:33 Pulse Ox 95 08/11/18 00:33 - Labs Result Diagrams: 08/11/18 05:02 08/10/18 22:52 Labs: Laboratory Results - last 24 hr 08/10/18 08/10/18 08/10/18 22:36 22:52 22:52 WBC 8.0 RBC 3.86 L Hgb 10.0 L Hct 30.3 L MCV 78.5 L D MCH 25.8 L MCHC 32.8 L RDW 20.4 H Plt Count 155 MPV 6.9 L Neut % (Auto) 86.6 H Lymph % (Auto) 10.8 L [place] % (Auto) 1.6 Eos % (Auto) 0.4 Baso % (Auto) 0.6 Neut # (Auto) 6.9 Lymph # (Auto) 0.9 L [place] # (Auto) 0.1 Eos # (Auto) 0.0 Baso # (Auto) 0.0 Sodium 127 L Potassium 4.0 Chloride 94 L Carbon Dioxide 22 Anion Gap 15 BUN 10 Creatinine 0.9 Est GFR ( Amer) > 60 Est GFR (Non-Af Amer) > 60 POC Glucose (mg/dL) 123 H Random Glucose 104 Calcium 8.5 L Phosphorus 2.6 Magnesium 1.2 L Total Bilirubin 1.4 H AST 98 H D ALT 14 L D Alkaline Phosphatase 175 H Total Protein 8.2 Albumin 3.8 Globulin 4.4 H Albumin/Globulin Ratio 0.9 L Alcohol, Quantitative < 10 Assessment & Plan - Assessment and Plan (Free Text) Assessment: SVT: sinus in nature, possible 2nd DTs, a/sp ativan, switch to oral librium -hyponatremia: 2nd beerpotomenia, continue iVF at maintenance dose fo 50 ml/hr, repeat cmp/mag/phos -AMS: check toxicology and cT head, continue to monitor -ANion gap metabolic acidosis: lactic high, possible type II lactic acidosis, possible aspiration, continue IVF, seria lactic and empriical abx cxr not available -DTS: start librium -dvt ppx heparin SQ (after official CT head results) pud ppx pepcid -Patient is sedated and will need monitoring for ETCO2 until more awake and able to take oral librium. Addendum: CT head pending, awaiting official result - Date & Time Date: 08/11/18 Time: 01:04 <Jarred Shay - Last Filed: 08/15/18 20:12> Meds - Medications Medications: Current Medications Albuterol/Ipratropium (Duoneb 3 Mg/0.5 Mg (3 Ml) Ud) 3 ml INH RQ4 [facility] Last Admin: 08/15/18 20:01 Dose: 3 ml Famotidine (Pepcid) 20 mg IVP DAILY [facility] Last Admin: 08/15/18 09:08 Dose: 20 mg Heparin Sodium (Porcine) (Heparin) 5,000 units SC Q8 [facility] Last Admin: 08/15/18 13:31 Dose: 5,000 units Dexmedetomidine HCl 200 mcg/ (Sodium Chloride) 50 mls @ 4.07 mls/hr IV TITR PRN; Protocol PRN Reason: Agitation Last Titration: 08/15/18 18:48 Dose: 0.88 mcg/kg/hr, 18 mls/hr Piperacillin Sod/Tazobactam (Sod 2.25 gm/ Sodium Chloride) 100 mls @ 200 mls/hr IVPB Q8H [facility]; Protocol Last Admin: 08/15/18 15:36 Dose: 200 mls/hr Insulin Human Regular (Novolin R) 0 unit SC Q6 [facility]; Protocol Last Admin: 08/15/18 18:06 Dose: 2 unit Methylprednisolone (Solu-Medrol) 40 mg IVP DAILY [facility] Last Admin: 08/15/18 09:08 Dose: 40 mg Multivitamins/Vitamin C (Multi-Delyn Liquid) 5 ml PO DAILY [facility] Last Admin: 08/15/18 09:09 Dose: 5 ml Results - Vital Signs Recent Vital Signs: Last Vital Signs Temp 94.7 F L 08/15/18 16:00 Pulse 70 08/15/18 19:27 Resp 23 08/15/18 19:27 BP 135/79 08/15/18 19:27 Pulse Ox 100 08/15/18 19:27 - Labs Result Diagrams: 08/15/18 04:42 08/15/18 04:42 Labs: Laboratory Results - last 24 hr 08/15/18 08/15/18 08/15/18 04:42 04:42 05:28 WBC 6.5 RBC 4.03 L Hgb 9.9 L Hct 31.7 L MCV 78.8 L MCH 24.6 L MCHC 31.2 L RDW 21.1 H Plt Count 88 L MPV 9.5 Neut % (Auto) 76.8 H Lymph % (Auto) 6.6 L [place] % (Auto) 16.4 H Eos % (Auto) 0.0 Baso % (Auto) 0.2 Neut # (Auto) 5.0 Lymph # (Auto) 0.4 L [place] # (Auto) 1.1 H Eos # (Auto) 0.0 Baso # (Auto) 0.0 Neutrophils % (Manual) 78 H Band Neutrophils % 4 H Lymphocytes % (Manual) 5 L Monocytes % (Manual) 13 H Platelet Estimate Decreased L Hypochromasia (manual) Slight Anisocytosis (manual) Moderate Puncture Site Rb pCO2 31 L pO2 106 H HCO3 23.5 ABG pH 7.45 ABG Total CO2 22.5 ABG O2 Saturation 99.4 H ABG Base Excess -1.9 ABG Hemoglobin 9.4 L ABG Carboxyhemoglobin 1.9 H POC ABG HHb (Measured) 0.6 ABG Methemoglobin 1.0 Rei Test Na A-a O2 Difference 69.0 Respiratory Index 0.7 Hgb O2 Saturation 96.4 Vent Mode Prvc Mechanical Rate 15 FiO2 30.0 Tidal Volume 500 PEEP 5 Sodium 146 Potassium 3.3 L Chloride 110 H Carbon Dioxide 21 L Anion Gap 18 BUN 65 H Creatinine 2.8 H Est GFR ( Amer) 28 Est GFR (Non-Af Amer) 23 Random Glucose 209 H Serum Osmolality Calcium 8.2 L Phosphorus 3.1 Magnesium 2.6 H Total Bilirubin 0.8 AST 92 H ALT 52 Alkaline Phosphatase 120 Total Protein 6.5 Albumin 3.1 L Globulin 3.4 Albumin/Globulin Ratio 0.9 L Urine Color Urine Clarity Urine pH Ur Specific [place] Urine Protein Urine Glucose (UA) Urine Ketones Urine Blood Urine Nitrate Urine Bilirubin Urine Urobilinogen Ur Leukocyte Esterase Urine WBC (Auto) Urine RBC (Auto) Ur Squamous Epith Cells U Random Total Protein 08/15/18 08/15/18 08/15/18 13:19 13:28 13:53 WBC RBC Hgb Hct MCV MCH MCHC RDW Plt Count MPV Neut % (Auto) Lymph % (Auto) [place] % (Auto) Eos % (Auto) Baso % (Auto) Neut # (Auto) Lymph # (Auto) [place] # (Auto) Eos # (Auto) Baso # (Auto) Neutrophils % (Manual) Band Neutrophils % Lymphocytes % (Manual) Monocytes % (Manual) Platelet Estimate Hypochromasia (manual) Anisocytosis (manual) Puncture Site pCO2 pO2 HCO3 ABG pH ABG Total CO2 ABG O2 Saturation ABG Base Excess ABG Hemoglobin ABG Carboxyhemoglobin POC ABG HHb (Measured) ABG Methemoglobin Rei Test A-a O2 Difference Respiratory Index Hgb O2 Saturation Vent Mode Mechanical Rate FiO2 Tidal Volume PEEP Sodium Potassium Chloride Carbon Dioxide Anion Gap BUN Creatinine Est GFR ( Amer) Est GFR (Non-Af Amer) Random Glucose Serum Osmolality 334 H Calcium Phosphorus Magnesium Total Bilirubin AST ALT Alkaline Phosphatase Total Protein Albumin Globulin Albumin/Globulin Ratio Urine Color Yellow Urine Clarity Clear Urine pH 6.0 Ur Specific [place] 1.016 Urine Protein Negative Urine Glucose (UA) Normal Urine Ketones Negative Urine Blood 2+ H Urine Nitrate Negative Urine Bilirubin Negative Urine Urobilinogen Normal Ur Leukocyte Esterase Neg Urine WBC (Auto) 4 Urine RBC (Auto) 19 H Ur Squamous Epith Cells < 1 U Random Total Protein 26.0 H Attending/Attestation - Attestation I have personally seen and examined this patient.: Yes I have fully participated in the care of the patient.: Yes I have reviewed all pertinent clinical information: Yes
[2018-08-11 01:00] LABS: VENOUS BLOOD GAS BASE EXCESS -3.8 mmol/L (0.0-2.0); VENOUS BLOOD GAS PCO2 39 mmHg (40-60); VENOUS BLOOD GAS PO2 27 mm/Hg (30-55); VENOUS BLOOD PH 7.35 (7.32-7.43)
[2018-08-11] MEDS ORDERED: Sodium Chloride 0.9% 1,000 ML IV SCH ×2 (01:15)
[2018-08-11] MEDS: Thiamine 100 mg/ml Inj IV SCH ×4 (02:02→21:34)
[2018-08-11] MEDS: Piperacillin/Tazobact 3.375 GM in Sodium Chloride 100 ML IVPB SCH ×4 (02:04→18:45)
[2018-08-11] MEDS: Vancomycin 1 gm/NS 200 ml 1 GM/200 ML BAG IVPB SCH ×2 (02:05→14:00)
[2018-08-11 05:08] LABS: BASO % 0.4 % (0.0-2.0); HEMOGLOBIN 9.1 g/dL (12.0-18.0); LYMPH # 0.5 K/uL (1.0-4.3); LYMPH % 4.1 % (20.0-40.0); MEAN CELL VOLUME 78.2 fL (80.0-94.0); MEAN CORPUSCULAR HEMOGLOBIN 24.2 pg (27.0-31.0); MEAN CORPUSCULAR HGB CONC 30.9 g/dL (33.0-37.0); MEAN PLATELET VOLUME 7.5 fL (7.2-11.7); MONO # 0.6 K/uL (0.0-0.8); MONO % 5.1 % (0.0-10.0); NEUT # 10.7 K/uL (1.8-7.0); NEUT % 90.4 % (50.0-75.0); RBC 3.78 Mil/uL (4.40-5.90); RED CELL DISTRIBUTION WIDTH 20.2 % (11.5-14.5); WHITE BLOOD COUNT 11.9 K/uL (4.8-10.8)
[2018-08-11 05:16] LABS: PLATELET COUNT 112 K/uL (130-400)
[2018-08-11 05:43] LABS: ALB/GLOB RATIO 0.7 (1.0-2.1); ALBUMIN 2.7 g/dL (3.5-5.0); CALCIUM 7.5 mg/dl (8.6-10.4)
[2018-08-11] MEDS: Magnesium Sulfate 1 gm in D5W 1 GM/100 ML BAG IVPB SCH ×2 (06:35→07:09)
[2018-08-11] MEDS: Potassium Chloride 20 mEq ER Tab PO SCH ×4 (06:40→17:31)
--- NOTE | 2018-08-11 08:08 | RAD ---
Chest x-ray single frontal view History: Evaluate aspiration. COMPARISON: 04/06/2018 FINDINGS: Prominent confluent consolidative increased markings in the left mid to lower lung zones which may represent underlying infiltrate. Clinical correlation. Diffuse increased interstitial lung markings. Bilateral hilar prominence. Biapical pleural thickening with upper lobe granulomatous changes. Atherosclerotic calcification at the aortic knob. Enlarged ectatic aorta. Cardiomegaly. Degenerative changes in the spine and shoulders. Impression: Prominent confluent consolidative increased markings in the left mid to lower lung zones which may represent underlying infiltrate. Clinical correlation. Diffuse increased interstitial lung markings. Bilateral hilar prominence. Biapical pleural thickening with upper lobe granulomatous changes. Atherosclerotic calcification at the aortic knob. Enlarged ectatic aorta. Cardiomegaly. Degenerative changes in the spine and shoulders.
--- NOTE | 2018-08-11 08:50 | CT ---
Date of service: 08/11/2018 PROCEDURE: CT HEAD WITHOUT CONTRAST. HISTORY: AMS COMPARISON: 04/06/2018 TECHNIQUE: Axial computed tomography images were obtained through the head/brain without intravenous contrast. Radiation dose: Total exam DLP = 1038.76 mGy-cm. This CT exam was performed using one or more of the following dose reduction techniques: Automated exposure control, adjustment of the mA and/or kV according to patient size, and/or use of iterative reconstruction technique. FINDINGS: HEMORRHAGE: Chronic right convexity subdural hygroma increased slightly in size from approximately 8 mm width to 10 mm with compared to the prior examination of 04/06/2018. Previously identified small chronic left subdural hygroma has resolved. There is midline shift towards the left by approximately 5 mm. This has increased from approximately 3 mm on prior examination. BRAIN: No intracranial mass. No atrophy or chronic microvascular ischemic changes. VENTRICLES: No ventriculomegaly. No evidence of downward herniation. The basilar cisterns are preserved. There is no tonsillar herniation. CALVARIUM: Unremarkable. PARANASAL SINUSES: Chronic left maxillary sinusitis. MASTOID AIR CELLS: Unremarkable as visualized. No inflammatory changes. OTHER FINDINGS: None. IMPRESSION: Slight increase in size of right convexity chronic subdural hygroma compared to prior examination. Resolution of left convexity chronic subdural hygroma. Slight increase in midline shift towards the left from 3-5 mm compared to 04/06/2018. No evidence of downward herniation. No other significant abnormality. The preliminary findings for this examination were reported by [facility] at 2:12 a.m. on 08/11/2018. There is concurrence of this report with the preliminary findings.
[2018-08-11 09:30] LABS: ANISOCYTOSIS SLIGHT; BANDS 20 % (0-2); LYMPHOCYTE 4 % (20-40); MONOCYTE 1 % (0-10); NEUTROPHIL 75 % (50-75); PLATELET ESTIMATE SLIGHTLY DECREASED (NORMAL); TOTAL CELLS COUNTED 100
[2018-08-11 09:31] LABS: HYPOCHROMIC SLIGHT; POIKILOCYTOSIS SLIGHT
[2018-08-11] MEDS ORDERED: Lactated Ringer's 1,000 ML IV STA (09:50)
[2018-08-11] MEDS ORDERED: Lactated Ringer's 1,000 ML IV SCH (11:00)
[2018-08-11] MEDS: Multiple Vitamins Oral Solution PO SCH (11:42)
--- NOTE | 2018-08-11 12:59 | RAD ---
Date of service: 08/11/2018 HISTORY: sob COMPARISON: 08/11/2018 FINDINGS: LUNGS: The lungs are well inflated. There is severe pulmonary venous congestion with redistribution. PLEURA: There are small effusions. No pneumothorax. CARDIOVASCULAR: There is moderate cardiomegaly with prominent central vasculature. No aortic atherosclerotic calcifications present. OSSEOUS STRUCTURES: Within normal limits for the patient's age. VISUALIZED UPPER ABDOMEN: Normal. OTHER FINDINGS: None. IMPRESSION: Worsening congestive heart failure.
[2018-08-11] MEDS ORDERED: Albuterol 0.042% Inhal Sol (1.25 mg/3 mL) UD INH ONE (13:00)
--- NOTE | 2018-08-11 14:42 | CP.PCM.CON ---
History of Present Illness - History of Present Illness History of Present Illness: 57yo M with HTN, Cirrhosis, ETOH abuse, admitted to ICU with AMS sepsis and resp failure IV antibiotics in progress PMHx: HTN, ETOH abuse, cirrhosis PSHx: Denies Family Hx: Father: HTN Social Hx: Admits to heavy ETOH use. Denies Tobacco use, Denies illicit drugs. States that he recently became homeless NKDA Review of Systems - Review of Systems All systems: reviewed and no additional remarkable complaints except - Constitutional Constitutional: absent: Chills, Fever - Cardiovascular Cardiovascular: Edema, Leg Edema. absent: Chest Pain, Dyspnea - Gastrointestinal Gastrointestinal: absent: Abdominal Pain, Diarrhea, Hematemesis, Hematochezia, Melena, Nausea, Vomiting Past Patient History - Infectious Disease Hx of Infectious Diseases: None - Tetanus Immunizations Tetanus Immunization: Unknown - Past Medical History & Family History Past Medical History?: Yes - Past Social History Smoking Status: Never Smoked - CARDIAC Hx Hypertension: Yes - PULMONARY Hx Pneumonia: Yes - NEUROLOGICAL Hx Neurological Disorder: No - HEENT Hx HEENT Problems: No - RENAL Hx Chronic Kidney Disease: No - ENDOCRINE/METABOLIC Hx Endocrine Disorders: No - HEMATOLOGICAL/ONCOLOGICAL Hx Anemia: Yes - INTEGUMENTARY Hx Dermatological Problems: No - MUSCULOSKELETAL/RHEUMATOLOGICAL Hx Musculoskeletal Disorders: Yes Hx Falls: Yes - GASTROINTESTINAL Hx Gastrointestinal Disorders: Yes Hx Liver Failure: Yes - GENITOURINARY/GYNECOLOGICAL Hx Genitourinary Disorders: No - PSYCHIATRIC Hx Substance Use: No - SURGICAL HISTORY Hx Surgeries: No - ANESTHESIA Hx Anesthesia: No Hx Anesthesia Reactions: No Meds Allergies/Adverse Reactions: Allergies Allergy/AdvReac Type Severity Reaction Status Date / Time No Known Allergies Allergy Verified 08/10/18 22:44 - Medications Medications: Current Medications Famotidine (Pepcid) 20 mg IVP DAILY [facility] Last Admin: 08/11/18 10:07 Dose: 20 mg Piperacillin Sod/Tazobactam (Sod 3.375 gm/ Sodium Chloride) 100 mls @ 200 mls/hr IVPB Q6H [facility]; Protocol Last Admin: 08/11/18 07:00 Dose: 200 mls/hr Vancomycin/Sodium Chloride (Vancomycin 1 Gm/Ns 200 Ml) 1 gm in 200 mls @ 133 mls/hr IVPB Q12H [facility]; Protocol Stop: 08/16/18 01:16 Last Admin: 08/11/18 14:00 Dose: 133 mls/hr Sodium Chloride (Sodium Chloride 0.9%) 1,000 mls @ 50 mls/hr IV .Q20H [facility] Last Admin: 08/11/18 02:02 Dose: 50 mls/hr Lactated Ringer's (Lactated Ringer's) 1,000 mls @ 100 mls/hr IV .Q10H [facility] Last Admin: 08/11/18 11:00 Dose: 100 mls/hr Lorazepam (Ativan) 1 mg IVP Q4H PRN PRN Reason: Agitation Methylprednisolone (Solu-Medrol) 125 mg IV ONCE ONE Stop: 08/11/18 15:01 Multivitamins/Vitamin C (Multi-Delyn Liquid) 5 ml PO DAILY [facility] Last Admin: 08/11/18 11:42 Dose: Not Given Potassium Chloride (K-Dur 20 Meq Er Tab) 40 meq PO Q6H [facility] Stop: 08/12/18 00:31 Last Admin: 08/11/18 14:24 Dose: Not Given Thiamine HCl (Vitamin B1 Inj) 200 mg IV Q8 [facility] Stop: 08/12/18 14:01 Last Admin: 08/11/18 14:21 Dose: 200 mg Physical Exam - Constitutional Appears: No Acute Distress, Confused, Chronically Ill - Head Exam Head Exam: NORMOCEPHALIC - Eye Exam Eye Exam: absent: Scleral icterus Pupil Exam: NORMAL ACCOMODATION - ENT Exam ENT Exam: Mucous Membranes Dry, Normal External Ear Exam - Neck Exam Neck exam: Positive for: Normal Inspection - Respiratory Exam Respiratory Exam: Decreased Breath Sounds, Rhonchi - Cardiovascular Exam Cardiovascular Exam: REGULAR RHYTHM, +S1, +S2 - GI/Abdominal Exam GI & Abdominal Exam: Diminished Bowel Sounds, Soft. absent: Tenderness - Rectal Exam Rectal Exam: Deferred - Exam Exam: NORMAL INSPECTION - Extremities Exam Extremities exam: Positive for: pedal edema. Negative for: calf tenderness, pedal pulses present - Back Exam Back exam: NORMAL INSPECTION. absent: CVA tenderness (L), CVA tenderness (R) - Neurological Exam Neurological exam: Altered - Psychiatric Exam Psychiatric exam: Depressed - Skin Skin Exam: Dry Results - Vital Signs Recent Vital Signs: Last Vital Signs Temp 101.3 F H 08/11/18 12:00 Pulse 117 H 08/11/18 14:00 Resp 26 H 08/11/18 14:00 BP 101/55 L 08/11/18 13:14 Pulse Ox 95 08/11/18 14:00 - Labs Result Diagrams: 08/12/18 06:46 08/12/18 06:46 Labs: Laboratory Results - last 24 hr 08/10/18 08/10/18 08/10/18 22:36 22:52 22:52 WBC 8.0 RBC 3.86 L Hgb 10.0 L Hct 30.3 L MCV 78.5 L D MCH 25.8 L MCHC 32.8 L RDW 20.4 H Plt Count 155 MPV 6.9 L Neut % (Auto) 86.6 H Lymph % (Auto) 10.8 L [place] % (Auto) 1.6 Eos % (Auto) 0.4 Baso % (Auto) 0.6 Neut # (Auto) 6.9 Lymph # (Auto) 0.9 L [place] # (Auto) 0.1 Eos # (Auto) 0.0 Baso # (Auto) 0.0 Neutrophils % (Manual) Band Neutrophils % Lymphocytes % (Manual) Monocytes % (Manual) Platelet Estimate Hypochromasia (manual) Poikilocytosis (manual Anisocytosis (manual) pO2 VBG pH VBG pCO2 VBG HCO3 VBG Total CO2 VBG O2 Sat (Calc) VBG Base Excess VBG Potassium Glucose Lactate Crit Value Called To Crit Value Called By Crit Value Read Back Blood Gas Notified Time Sodium 127 L Potassium 4.0 Chloride 94 L Carbon Dioxide 22 Anion Gap 15 BUN 10 Creatinine 0.9 Est GFR ( Amer) > 60 Est GFR (Non-Af Amer) > 60 POC Glucose (mg/dL) 123 H Random Glucose 104 Lactic Acid Calcium 8.5 L Phosphorus 2.6 Magnesium 1.2 L Total Bilirubin 1.4 H AST 98 H D ALT 14 L D Alkaline Phosphatase 175 H Total Protein 8.2 Albumin 3.8 Globulin 4.4 H Albumin/Globulin Ratio 0.9 L Venous Blood Potassium Alcohol, Quantitative < 10 08/11/18 08/11/18 08/11/18 00:48 05:02 05:02 WBC 11.9 H RBC 3.78 L Hgb 9.1 L Hct 29.6 L MCV 78.2 L MCH 24.2 L MCHC 30.9 L RDW 20.2 H Plt Count 112 L D MPV 7.5 Neut % (Auto) 90.4 H Lymph % (Auto) 4.1 L [place] % (Auto) 5.1 Eos % (Auto) 0.0 Baso % (Auto) 0.4 Neut # (Auto) 10.7 H Lymph # (Auto) 0.5 L [place] # (Auto) 0.6 Eos # (Auto) 0.0 Baso # (Auto) 0.0 Neutrophils % (Manual) 75 Band Neutrophils % 20 H* Lymphocytes % (Manual) 4 L Monocytes % (Manual) 1 Platelet Estimate Slightly decreased L Hypochromasia (manual) Slight Poikilocytosis (manual Slight Anisocytosis (manual) Slight pO2 27 L VBG pH 7.35 VBG pCO2 39 L VBG HCO3 20.6 VBG Total CO2 22.7 VBG O2 Sat (Calc) 37.9 L VBG Base Excess -3.8 L VBG Potassium 4.0 Glucose 97 Lactate 5.9 H* Crit Value Called To Georgiana harris rn Crit Value Called By Raquel monteiro rt Crit Value Read Back Y Blood Gas Notified Time 100 Sodium 128.0 L Potassium Chloride 94.0 L Carbon Dioxide Anion Gap BUN Creatinine Est GFR ( Amer) Est GFR (Non-Af Amer) POC Glucose (mg/dL) Random Glucose Lactic Acid 3.8 H Calcium Phosphorus Magnesium Total Bilirubin AST ALT Alkaline Phosphatase Total Protein Albumin Globulin Albumin/Globulin Ratio Venous Blood Potassium 4.0 Alcohol, Quantitative 08/11/18 05:02 WBC RBC Hgb Hct MCV MCH MCHC RDW Plt Count MPV Neut % (Auto) Lymph % (Auto) [place] % (Auto) Eos % (Auto) Baso % (Auto) Neut # (Auto) Lymph # (Auto) [place] # (Auto) Eos # (Auto) Baso # (Auto) Neutrophils % (Manual) Band Neutrophils % Lymphocytes % (Manual) Monocytes % (Manual) Platelet Estimate Hypochromasia (manual) Poikilocytosis (manual Anisocytosis (manual) pO2 VBG pH VBG pCO2 VBG HCO3 VBG Total CO2 VBG O2 Sat (Calc) VBG Base Excess VBG Potassium Glucose Lactate Crit Value Called To Crit Value Called By Crit Value Read Back Blood Gas Notified Time Sodium 129 L Potassium 3.3 L Chloride 101 Carbon Dioxide 19 L Anion Gap 13 BUN 11 Creatinine 1.5 Est GFR ( Amer) 58 Est GFR (Non-Af Amer) 48 POC Glucose (mg/dL) Random Glucose 91 Lactic Acid Calcium 7.5 L Phosphorus 2.7 Magnesium 1.5 L Total Bilirubin 1.4 H AST 127 H D ALT 30 Alkaline Phosphatase 120 Total Protein 6.6 Albumin 2.7 L D Globulin 4.0 H Albumin/Globulin Ratio 0.7 L Venous Blood Potassium Alcohol, Quantitative Assessment & Plan (1) Alcohol abuse with intoxication Status: Acute (2) Cirrhosis Status: Acute (3) Hydrocele of testis Status: Acute (4) Pneumonia Status: Acute (5) Sepsis Status: Acute (6) Subdural hemorrhage Status: Acute (7) Alcoholic cirrhosis Status: Chronic (8) Respiratory failure Status: Resolved - Assessment and Plan (Free Text) Assessment: Group G strep in blood has significant swelling redness warmth both lower extremities 57yo M with HTN, Cirrhosis, ETOH abuse cont IV antibiotics and supportive rx ,
[2018-08-11] MEDS: Albumin Human 25% (12.5 gm/50 ml) IV SCH ×4 (15:45→20:49)
--- NOTE | 2018-08-11 19:00 | CARD ---
APPROVED REPORT Date of service: 08/11/2018 EXAM: Two-dimensional and M-mode echocardiogram with Doppler and color Doppler. Other Information Quality : TDSRhythm : INDICATION Congestive Heart Failure 2D DIMENSIONS IVSd0.9 (0.7-1.1cm)LVDd5.4 (3.9-5.9cm) PWd0.8 (0.7-1.1cm)LA [id number] (18-58mL) LVDs3.3 (2.5-4.0cm)FS (%) 38.8 % LVEF (%)55.0 (>50%) M-Mode DIMENSIONS Left Atrium (MM)4.01 (2.5-4.0cm)IVSd1.22 (0.7-1.1cm) Aortic Root3.35 (2.2-3.7cm)LVDd4.97 (4.0-5.6cm) Aortic Cusp Exc.1.79 (1.5-2.0cm)PWd0.88 (0.7-1.1cm) FS (%) 39 %LVDs3.03 (2.0-3.8cm) LVEF (%)50 (>50%) Mitral Valve MV E Nfqglkcc843.4cm/sE/A ratio0.0 TDI Lateral E' Peak V13.27cm/sMedial E' Peak V14.24cm/sE/Lateral E'11.6 E/Medial E'10.8 Tricuspid Valve TR Peak Aqubvaif991ty/sTR Peak [id number] LEFT VENTRICLE The Left Ventricle is borderline to mildly dilated. There is normal left ventricular wall thickness. The left ventricular systolic function appears to be in the low normal. No Biplane ejection fraction available There is slight global hypokinesis of the left ventricle. Transmitral Doppler flow pattern is Grade I-abnormal relaxation pattern. Elevated left atrial pressure by Tissue Doppler RIGHT VENTRICLE The right ventricle is mildly dilated. The right ventricular systolic function in the low normal. ATRIA The left atrial index is moderately increased. The right atrium is mildly dilated. AORTIC VALVE The aortic valve is normal in structure. No aortic regurgitation is present. There is no aortic valvular stenosis. MITRAL VALVE Mitral annular calcification is moderate. The mitral valve leaflets are normal in structure. There is no mitral valve regurgitation noted. TRICUSPID VALVE The tricuspid valve is normal in structure. There is moderate tricuspid regurgitation. Right ventricular systolic pressure is estimated - 51 mmHg. There is moderate pulmonary hypertension. PULMONIC VALVE The pulmonary valve is normal in structure. There is trace pulmonic valvular regurgitation. GREAT VESSELS The aortic root is normal in size. The IVC is normal in size and collapses >50% with inspiration. PERICARDIAL EFFUSION There is no pericardial effusion. <Conclusion> The left ventricle is borderline to mildly dilated. There is slight global hypokinesis of the left ventricle.The left ventricular systolic function appears preserved. Grade I diastolic dysfunction-abnormal relaxation pattern. Elevated left atrial pressure by Tissue Doppler The right ventricle is mildly dilated. The right ventricular systolic function in the low normal. Mild to moderate bi-atrial enlargement. Mitral annular calcification is moderate. There is no mitral valve regurgitation noted. There is moderate tricuspid regurgitation. Right ventricular systolic pressure is estimated - 51 mmHg compatible with moderate pulmonary hypertension. There is no pericardial effusion.
[2018-08-11 21:49] LABS: SQUAMOUS EPITHIAL < 1 /hpf (0-5); URINE BACTERIA RARE (<OCC); URINE BILIRUBIN NEGATIVE (NEGATIVE); URINE BLOOD 3+ (NEGATIVE); URINE CLARITY Clear (Clear); URINE COLOR Straw (YELLOW); URINE GLUCOSE (UA) NORMAL (Normal); URINE LEUKOCYTE ESTERASE NEG Leu/uL (Negative); URINE PROTEIN NEGATIVE (NEGATIVE); URINE UROBILINOGEN NORMAL mg/dL (0.2-1.0)
[2018-08-11 22:03] LABS: BARBITURATES, UR NEGATIVE (NEGATIVE); BENZODIAZEPINES, UR NEGATIVE (NEGATIVE); OPIATES, UR NEGATIVE (NEGATIVE); PHENCYCLIDINE, UR NEGATIVE (NEGATIVE)
--- NOTE | 2018-08-11 23:09 | CP.PCM.HP ---
Present on Admission - Present on Admission Any Indicators Present on Admission: No Past Patient History - Infectious Disease Hx of Infectious Diseases: None - Tetanus Immunizations Tetanus Immunization: Unknown - Past Medical History & Family History Past Medical History?: Yes - Past Social History Smoking Status: Never Smoked - CARDIAC Hx Hypertension: Yes - PULMONARY Hx Pneumonia: Yes - NEUROLOGICAL Hx Neurological Disorder: No - HEENT Hx HEENT Problems: No - RENAL Hx Chronic Kidney Disease: No - ENDOCRINE/METABOLIC Hx Endocrine Disorders: No - HEMATOLOGICAL/ONCOLOGICAL Hx Anemia: Yes - INTEGUMENTARY Hx Dermatological Problems: No - MUSCULOSKELETAL/RHEUMATOLOGICAL Hx Musculoskeletal Disorders: Yes Hx Falls: Yes - GASTROINTESTINAL Hx Gastrointestinal Disorders: Yes Hx Liver Failure: Yes - GENITOURINARY/GYNECOLOGICAL Hx Genitourinary Disorders: No - PSYCHIATRIC Hx Substance Use: No - SURGICAL HISTORY Hx Surgeries: No - ANESTHESIA Hx Anesthesia: No Hx Anesthesia Reactions: No Meds Allergies/Adverse Reactions: Allergies Allergy/AdvReac Type Severity Reaction Status Date / Time No Known Allergies Allergy Verified 08/10/18 22:44 Results - Vital Signs Recent Vital Signs: Last Vital Signs Temp 97.0 F L 08/11/18 22:00 Pulse 112 H 08/11/18 22:14 Resp 31 H 08/11/18 22:14 BP 122/66 08/11/18 22:14 Pulse Ox 100 08/11/18 22:14 - Labs Result Diagrams: 08/11/18 05:02 08/11/18 05:02 Labs: Laboratory Results - last 24 hr 08/10/18 08/10/18 08/11/18 22:52 22:52 00:48 WBC 8.0 RBC 3.86 L Hgb 10.0 L Hct 30.3 L MCV 78.5 L D MCH 25.8 L MCHC 32.8 L RDW 20.4 H Plt Count 155 MPV 6.9 L Neut % (Auto) 86.6 H Lymph % (Auto) 10.8 L Cocke % (Auto) 1.6 Eos % (Auto) 0.4 Baso % (Auto) 0.6 Neut # (Auto) 6.9 Lymph # (Auto) 0.9 L Cocke # (Auto) 0.1 Eos # (Auto) 0.0 Baso # (Auto) 0.0 Neutrophils % (Manual) Band Neutrophils % Lymphocytes % (Manual) Monocytes % (Manual) Platelet Estimate Hypochromasia (manual) Poikilocytosis (manual Anisocytosis (manual) pO2 27 L VBG pH 7.35 VBG pCO2 39 L VBG HCO3 20.6 VBG Total CO2 22.7 VBG O2 Sat (Calc) 37.9 L VBG Base Excess -3.8 L VBG Potassium 4.0 Glucose 97 Lactate 5.9 H* Crit Value Called To Georgiana harris rn Crit Value Called By Raquel monteiro rt Crit Value Read Back Y Blood Gas Notified Time 100 Sodium 127 L 128.0 L Potassium 4.0 Chloride 94 L 94.0 L Carbon Dioxide 22 Anion Gap 15 BUN 10 Creatinine 0.9 Est GFR ( Amer) > 60 Est GFR (Non-Af Amer) > 60 Random Glucose 104 Serum Osmolality Lactic Acid Calcium 8.5 L Phosphorus 2.6 Magnesium 1.2 L Total Bilirubin 1.4 H AST 98 H D ALT 14 L D Alkaline Phosphatase 175 H NT-Pro-B Natriuret Pep Total Protein 8.2 Albumin 3.8 Globulin 4.4 H Albumin/Globulin Ratio 0.9 L Venous Blood Potassium 4.0 Urine Color Urine Clarity Urine pH Ur Specific [place] Urine Protein Urine Glucose (UA) Urine Ketones Urine Blood Urine Nitrate Urine Bilirubin Urine Urobilinogen Ur Leukocyte Esterase Urine WBC (Auto) Urine RBC (Auto) Ur Squamous Epith Cells Urine Bacteria Urine Opiates Screen Urine Methadone Screen Ur Barbiturates Screen Ur Phencyclidine Scrn Ur Amphetamines Screen U Benzodiazepines Scrn U Oth Cocaine Metabols U Cannabinoids Screen Alcohol, Quantitative < 10 C. difficile Ag & Toxin Influenza Typ A,B (EIA) 08/11/18 08/11/18 08/11/18 05:02 05:02 05:02 WBC 11.9 H RBC 3.78 L Hgb 9.1 L Hct 29.6 L MCV 78.2 L MCH 24.2 L MCHC 30.9 L RDW 20.2 H Plt Count 112 L D MPV 7.5 Neut % (Auto) 90.4 H Lymph % (Auto) 4.1 L Cocke % (Auto) 5.1 Eos % (Auto) 0.0 Baso % (Auto) 0.4 Neut # (Auto) 10.7 H Lymph # (Auto) 0.5 L Cocke # (Auto) 0.6 Eos # (Auto) 0.0 Baso # (Auto) 0.0 Neutrophils % (Manual) 75 Band Neutrophils % 20 H* Lymphocytes % (Manual) 4 L Monocytes % (Manual) 1 Platelet Estimate Slightly decreased L Hypochromasia (manual) Slight Poikilocytosis (manual Slight Anisocytosis (manual) Slight pO2 VBG pH VBG pCO2 VBG HCO3 VBG Total CO2 VBG O2 Sat (Calc) VBG Base Excess VBG Potassium Glucose Lactate Crit Value Called To Crit Value Called By Crit Value Read Back Blood Gas Notified Time Sodium 129 L Potassium 3.3 L Chloride 101 Carbon Dioxide 19 L Anion Gap 13 BUN 11 Creatinine 1.5 Est GFR ( Amer) 58 Est GFR (Non-Af Amer) 48 Random Glucose 91 Serum Osmolality Lactic Acid 3.8 H Calcium 7.5 L Phosphorus 2.7 Magnesium 1.5 L Total Bilirubin 1.4 H AST 127 H D ALT 30 Alkaline Phosphatase 120 NT-Pro-B Natriuret Pep Total Protein 6.6 Albumin 2.7 L D Globulin 4.0 H Albumin/Globulin Ratio 0.7 L Venous Blood Potassium Urine Color Urine Clarity Urine pH Ur Specific [place] Urine Protein Urine Glucose (UA) Urine Ketones Urine Blood Urine Nitrate Urine Bilirubin Urine Urobilinogen Ur Leukocyte Esterase Urine WBC (Auto) Urine RBC (Auto) Ur Squamous Epith Cells Urine Bacteria Urine Opiates Screen Urine Methadone Screen Ur Barbiturates Screen Ur Phencyclidine Scrn Ur Amphetamines Screen U Benzodiazepines Scrn U Oth Cocaine Metabols U Cannabinoids Screen Alcohol, Quantitative C. difficile Ag & Toxin Influenza Typ A,B (EIA) 08/11/18 08/11/18 08/11/18 13:04 14:52 14:52 WBC RBC Hgb Hct MCV MCH MCHC RDW Plt Count MPV Neut % (Auto) Lymph % (Auto) Cocke % (Auto) Eos % (Auto) Baso % (Auto) Neut # (Auto) Lymph # (Auto) Cocke # (Auto) Eos # (Auto) Baso # (Auto) Neutrophils % (Manual) Band Neutrophils % Lymphocytes % (Manual) Monocytes % (Manual) Platelet Estimate Hypochromasia (manual) Poikilocytosis (manual Anisocytosis (manual) pO2 VBG pH VBG pCO2 VBG HCO3 VBG Total CO2 VBG O2 Sat (Calc) VBG Base Excess VBG Potassium Glucose Lactate Crit Value Called To Crit Value Called By Crit Value Read Back Blood Gas Notified Time Sodium Potassium Chloride Carbon Dioxide Anion Gap BUN Creatinine Est GFR ( Amer) Est GFR (Non-Af Amer) Random Glucose Serum Osmolality 286 Lactic Acid 2.0 Calcium Phosphorus Magnesium Total Bilirubin AST ALT Alkaline Phosphatase NT-Pro-B Natriuret Pep Total Protein Albumin Globulin Albumin/Globulin Ratio Venous Blood Potassium Urine Color Urine Clarity Urine pH Ur Specific [place] Urine Protein Urine Glucose (UA) Urine Ketones Urine Blood Urine Nitrate Urine Bilirubin Urine Urobilinogen Ur Leukocyte Esterase Urine WBC (Auto) Urine RBC (Auto) Ur Squamous Epith Cells Urine Bacteria Urine Opiates Screen Urine Methadone Screen Ur Barbiturates Screen Ur Phencyclidine Scrn Ur Amphetamines Screen U Benzodiazepines Scrn U Oth Cocaine Metabols U Cannabinoids Screen Alcohol, Quantitative C. difficile Ag & Toxin Negative Influenza Typ A,B (EIA) 08/11/18 08/11/18 08/11/18 15:17 17:14 21:35 WBC RBC Hgb Hct MCV MCH MCHC RDW Plt Count MPV Neut % (Auto) Lymph % (Auto) [place] % (Auto) Eos % (Auto) Baso % (Auto) Neut # (Auto) Lymph # (Auto) [place] # (Auto) Eos # (Auto) Baso # (Auto) Neutrophils % (Manual) Band Neutrophils % Lymphocytes % (Manual) Monocytes % (Manual) Platelet Estimate Hypochromasia (manual) Poikilocytosis (manual Anisocytosis (manual) pO2 VBG pH VBG pCO2 VBG HCO3 VBG Total CO2 VBG O2 Sat (Calc) VBG Base Excess VBG Potassium Glucose Lactate Crit Value Called To Crit Value Called By Crit Value Read Back Blood Gas Notified Time Sodium Potassium Chloride Carbon Dioxide Anion Gap BUN Creatinine Est GFR ( Amer) Est GFR (Non-Af Amer) Random Glucose Serum Osmolality Lactic Acid Calcium Phosphorus Magnesium Total Bilirubin AST ALT Alkaline Phosphatase NT-Pro-B Natriuret Pep 43253 H Total Protein Albumin Globulin Albumin/Globulin Ratio Venous Blood Potassium Urine Color Urine Clarity Urine pH Ur Specific [place] Urine Protein Urine Glucose (UA) Urine Ketones Urine Blood Urine Nitrate Urine Bilirubin Urine Urobilinogen Ur Leukocyte Esterase Urine WBC (Auto) Urine RBC (Auto) Ur Squamous Epith Cells Urine Bacteria Urine Opiates Screen Negative Urine Methadone Screen Negative Ur Barbiturates Screen Negative Ur Phencyclidine Scrn Negative Ur Amphetamines Screen Negative U Benzodiazepines Scrn Negative U Oth Cocaine Metabols Negative U Cannabinoids Screen Negative Alcohol, Quantitative C. difficile Ag & Toxin Influenza Typ A,B (EIA) Negative for flu a/b 08/11/18 21:35 WBC RBC Hgb Hct MCV MCH MCHC RDW Plt Count MPV Neut % (Auto) Lymph % (Auto) [place]ke % (Auto) Eos % (Auto) Baso % (Auto) Neut # (Auto) Lymph # (Auto) [place] # (Auto) Eos # (Auto) Baso # (Auto) Neutrophils % (Manual) Band Neutrophils % Lymphocytes % (Manual) Monocytes % (Manual) Platelet Estimate Hypochromasia (manual) Poikilocytosis (manual Anisocytosis (manual) pO2 VBG pH VBG pCO2 VBG HCO3 VBG Total CO2 VBG O2 Sat (Calc) VBG Base Excess VBG Potassium Glucose Lactate Crit Value Called To Crit Value Called By Crit Value Read Back Blood Gas Notified Time Sodium Potassium Chloride Carbon Dioxide Anion Gap BUN Creatinine Est GFR ( Amer) Est GFR (Non-Af Amer) Random Glucose Serum Osmolality Lactic Acid Calcium Phosphorus Magnesium Total Bilirubin AST ALT Alkaline Phosphatase NT-Pro-B Natriuret Pep Total Protein Albumin Globulin Albumin/Globulin Ratio Venous Blood Potassium Urine Color Straw Urine Clarity Clear Urine pH 6.0 Ur Specific [place] 1.005 Urine Protein Negative Urine Glucose (UA) Normal Urine Ketones Negative Urine Blood 3+ H Urine Nitrate Negative Urine Bilirubin Negative Urine Urobilinogen Normal Ur Leukocyte Esterase Neg Urine WBC (Auto) 3 Urine RBC (Auto) 150 H Ur Squamous Epith Cells < 1 Urine Bacteria Rare Urine Opiates Screen Urine Methadone Screen Ur Barbiturates Screen Ur Phencyclidine Scrn Ur Amphetamines Screen U Benzodiazepines Scrn U Oth Cocaine Metabols U Cannabinoids Screen Alcohol, Quantitative C. difficile Ag & Toxin Influenza Typ A,B (EIA)
[2018-08-11 23:27] LABS: OSMOLALITY,URINE 228 mosm/kg (300-1000)
[2018-08-12] MEDS: Piperacillin/Tazobact 3.375 GM in Sodium Chloride 100 ML IVPB SCH ×2 (00:28→06:48)
[2018-08-12] MEDS: Vancomycin 1 gm/NS 200 ml 1 GM/200 ML BAG IVPB SCH (00:29)
[2018-08-12] MEDS: Potassium Chloride 20 mEq ER Tab PO SCH (00:52)
--- NOTE | 2018-08-12 02:43 | HP ---
CHIEF COMPLAINT: Acute intoxication. HISTORY OF PRESENT ILLNESS: This is a 57-year-old [place] male who was picked up by ambulance from [facility] where he was [place] defecate near the [place] tracks, and the patient had diffuse diarrhea. The patient was also found without any clothes. According to him, he has been drinking 2.5 pints of vodka and the patient has history of multiple hospitalizations and emergency room evaluation in the past for alcohol and alcohol related incidences. Other than that, right now the patient is on oxygen Ventimask and he is altered and no further details are obtainable. As per ICU, the patient received Ativan for agitation, he received 3 L of normal saline, and the patient is lethargic and the patient is non-arousable. Other than that, there is history of left lower lobe consolidation. No further details are obtainable and no medication details, and no history of past history is available. SOCIAL HISTORY: The patient is alcoholic. FAMILY HISTORY: Not obtainable. PHYSICAL EXAMINATION: GENERAL: An elderly male who is on oxygen high-flow with a mask and the patient is altered. VITAL SIGNS: Blood pressure 122/66, pulse 115, respiratory rate 27, temperature 97. SKIN: Senile turgor. Flushed. Scratch judd. No bruises. HEENT: Atraumatic and normocephalic. The patient has mask on the face. NECK: Supple. LUNGS: Bilateral scattered rales. No rhonchi. CARDIOVASCULAR SYSTEM: PMI is not localized. S1 and S2, tachycardic. ABDOMEN: Soft and nontender. Bowel sounds are positive. RECTAL AND PELVIC: Cannot be performed. CENTRAL NERVOUS SYSTEM: The patient is withdrawing from pain. No other distress. ASSESSMENT: 1. Acute alcohol intoxication. 2. Left lower lobe pneumonia. 3. Alcoholism. 4. Anemia. PLAN: Admit. Detailed orders are written. Seen and examined. Chino Cheung MD
[2018-08-12] MEDS: Thiamine 100 mg/ml Inj IV SCH ×2 (05:13→13:14)
[2018-08-12 05:37] LABS: ABG ALLEN TEST POS; ARTERIAL BLOOD GAS HEMOGLOBIN 8.7 g/dL (11.7-17.4); ARTERIAL BLOOD GAS O2 SAT 97.2 % (95-98); ARTERIAL BLOOD GAS PCO2 42 mm/Hg (35-45); ARTERIAL BLOOD GAS PH 7.24 (7.35-7.45); ARTERIAL BLOOD GAS PO2 79 mm/Hg (80-100); ARTERIAL BLOOD GAS TCO2 19.3 mmol/L (22-28)
[2018-08-12 06:51] LABS: BASO % 0.2 % (0.0-2.0); HEMOGLOBIN 8.5 g/dL (12.0-18.0); LYMPH # 0.6 K/uL (1.0-4.3); MEAN CELL VOLUME 80.6 fL (80.0-94.0); MEAN CORPUSCULAR HEMOGLOBIN 24.5 pg (27.0-31.0); MEAN CORPUSCULAR HGB CONC 30.3 g/dL (33.0-37.0); MEAN PLATELET VOLUME 7.8 fL (7.2-11.7); MONO # 1.1 K/uL (0.0-0.8); MONO % 5.4 % (0.0-10.0); NEUT # 18.1 K/uL (1.8-7.0); NEUT % 91.4 % (50.0-75.0); PLATELET COUNT 100 K/uL (130-400); RBC 3.45 Mil/uL (4.40-5.90); RED CELL DISTRIBUTION WIDTH 20.5 % (11.5-14.5); WHITE BLOOD COUNT 19.8 K/uL (4.8-10.8)
[2018-08-12 07:06] LABS: CALCIUM 7.9 mg/dl (8.6-10.4)
[2018-08-12 07:07] LABS: IRON < 10 ug/dL (49-181)
[2018-08-12 07:15] LABS: TOTAL IRON BINDING CAPACITY 305 ug/dL (250-450)
[2018-08-12 07:16] LABS: % IRON SATURATION 3.3 (20-55)
[2018-08-12] MEDS ORDERED: Dexmedetomidine Hydrochloride 200 MCG in Sodium Chloride 0.9% 48 ML IV PRN (08:50)
[2018-08-12] MEDS: Multiple Vitamins Oral Solution PO SCH (09:54)
[2018-08-12] MEDS: Sodium Bicarbonate 8.4% 150 MEQ in Dextrose 5% In Water 1,000 ML IV SCH (09:54)
[2018-08-12] MEDS ORDERED: Enoxaparin 40 mg Syringe SC SCH (10:00)
--- NOTE | 2018-08-12 10:15 | CP.PCM.PN ---
Subjective - Date & Time of Evaluation Date of Evaluation: 08/12/18 Time of Evaluation: 10:09 - Subjective Subjective: Patient not awake, on bi-pap, moves upper and lower extremitites Objective - Vital Signs/Intake and Output Vital Signs (last 24 hours): Temp Pulse Resp BP Pulse Ox 93.5 F L 99 H 42 H 126/80 97 08/12/18 08:00 08/12/18 09:15 08/12/18 09:15 08/12/18 09:15 08/12/18 09:15 Intake and Output: 08/12/18 08/12/18 06:59 18:59 Intake Total 600 0 Output Total 750 170 Balance -150 -170 - Medications Medications: Current Medications Famotidine (Pepcid) 20 mg IVP DAILY [facility] Last Admin: 08/12/18 09:54 Dose: 20 mg Piperacillin Sod/Tazobactam Sod (Zosyn 3.375 Gm Iv Premix) 3.375 gm in 50 mls @ 100 mls/hr IVPB Q8H [facility]; Protocol Sodium Bicarbonate 150 meq/ (Dextrose) 1,150 mls @ 50 mls/hr IV .Q23H [facility] Last Admin: 08/12/18 09:54 Dose: 50 mls/hr Dexmedetomidine HCl 200 mcg/ (Sodium Chloride) 50 mls @ 1.84 mls/hr IV TITR PRN; Protocol PRN Reason: Agitation Multivitamins/Vitamin C (Multi-Delyn Liquid) 5 ml PO DAILY [facility] Last Admin: 08/12/18 09:54 Dose: Not Given Thiamine HCl (Vitamin B1 Inj) 200 mg IV Q8 [facility] Stop: 08/12/18 14:01 Last Admin: 08/12/18 05:13 Dose: 200 mg - Labs Labs: 08/12/18 06:46 08/12/18 06:46 - Head Exam Head Exam: ATRAUMATIC, NORMAL INSPECTION, NORMOCEPHALIC - Eye Exam Eye Exam: EOMI - Respiratory Exam Respiratory Exam: Clear to Ausculation Bilateral, NORMAL BREATHING PATTERN. absent: Rhonchi, Wheezes, Stridor - Cardiovascular Exam Cardiovascular Exam: REGULAR RHYTHM, +S1, +S2 - GI/Abdominal Exam GI & Abdominal Exam: Soft, Normal Bowel Sounds - Extremities Exam Extremities Exam: Full ROM, Pedal Edema - Neurological Exam Neurological Exam: Altered. absent: Alert, CN II-XII Intact - Skin Skin Exam: Normal Color, Warm Assessment and Plan - Assessment and Plan (Free Text) Assessment: -SVT: resolved, HR now near 90s -hyponatremia with metabolic acidosis: slow improvement, continue bicarb ggt -AMS: subdural no signs of external damage, check ammonia -ANion gap metabolic acidosis: resolving -?sepsis: etiology GPC bacteremia, check vanco level, switch abx to renal function -RAMIREZ: avoid nephrotoxic drugs, monitor urine output, renal US, continue gently hydration -DTS: start precedex, as patient too sleepy on onur librium and likely enterohepatic circulation -Metabolic and respiratory acidosis: continue bi-pap to improve ventilation and IV bicarb for metabolic acidosis, until renal function improves -dvt ppx:SCDs pud ppx pepcid Patient will benefit from close monitoring until renal function improves
[2018-08-12 10:41] LABS: ANISOCYTOSIS MODERATE; BANDS 19 % (0-2); LYMPHOCYTE 3 % (20-40); MONOCYTE 8 % (0-10); NEUTROPHIL 70 % (50-75); PLATELET ESTIMATE SLIGHTLY DECREASED (NORMAL); TOTAL CELLS COUNTED 100
[2018-08-12 10:43] LABS: POIKILOCYTOSIS SLIGHT; TOXIC GRANULATION PRESENT
[2018-08-12 10:44] LABS: HYPOCHROMIC MODERATE; LARGE PLATELETS PRESENT; MICROCYTOSIS SLIGHT; OVALOCYTES SLIGHT; POLYCHROMIC SLIGHT
[2018-08-12 10:45] LABS: BURR CELLS SLIGHT; GIANT PLATELETS PRESENT
--- NOTE | 2018-08-12 12:22 | US ---
Date of service: 08/12/2018 HISTORY: RAMIREZ COMPARISON: None. TECHNIQUE: Sonographic evaluation of the abdomen. FINDINGS: LIVER: Measures 21.0 in length. Diffusely increased echogenicity of the liver parenchyma. Consistent with fatty infiltration. Nodular contour consistent with hepatic cirrhosis. No mass. No biliary ductal dilatation. GALLBLADDER: Cholelithiasis. No mural thickening or pericholecystic fluid. Negative sonographic Mathew sign. COMMON BILE DUCT: Measures 5 in transverse dimension. No stones. No dilatation. PANCREAS: Unremarkable as visualized. No mass. No ductal dilatation. RIGHT KIDNEY: Measures 12.4cm. Normal echogenicity. No calculus, mass, or hydronephrosis. LEFT KIDNEY: Measures 12.8cm. Normal echogenicity. No calculus, mass, or hydronephrosis. AORTA: No aneurysmal dilatation. IVC: Unremarkable. OTHER FINDINGS: Mild ascites.. IMPRESSION: Enlarged nodular liver consistent with hepatic cirrhosis and fatty infiltration. Cholelithiasis. No evidence of cholecystitis. No evidence of biliary obstruction. Trace ascites.
[2018-08-12] MEDS: Dexmedetomidine Hydrochloride 200 MCG in Sodium Chloride 0.9% 48 ML IV PRN ×3 (14:03→23:04)
[2018-08-12] MEDS: Piperacill/Tazo 3.375gm in Dex 3.375 GM/50 ML BAG IVPB SCH (16:50)
[2018-08-12] MEDS ORDERED: Propofol 10 mg/ml Inj (20 ML) IV ONE (18:45)
[2018-08-12] MEDS ORDERED: Propofol 10 mg/ml Inj (20 ML) ONE (18:50)
--- NOTE | 2018-08-12 19:03 | PCM.PROC ---
Procedures Attestation:: I certify that I have explained the specified Operation(s) or Procedure(s), risks, benefits and reasonable alternatives to the Patient and/or other person responsible. The opportunity was given to ask questions and all questions answered - Intubation Sedative: None, Other (propofol 5 ml) Laryngoscope: Allan ET Tube Size: 7.5 ET Tube Uncuffed: No ET Tube Secured at Depth: 23 ET Tube Secured Locarion: Lips ET Tube Placement Confirmation: Visualized Passing Through Cords, Breath Sounds Equal Bilaterally, No Breath Sounds Over Epigastrum, Confirmation w/Capnometry Patient Tolerated Procedure: Well Procedure Immediate Complications: None
[2018-08-12] MEDS: MethylPREDNISolone 40 mg Vial IVP SCH (20:00)
[2018-08-12 20:01] LABS: ARTERIAL BLOOD GAS HCO3 20.8 mmol/L (21-28); ARTERIAL BLOOD GAS O2 SAT 100.8 % (95-98); ARTERIAL BLOOD GAS PCO2 38 mm/Hg (35-45); ARTERIAL BLOOD GAS PH 7.33 (7.35-7.45); ARTERIAL BLOOD GAS PO2 315 mm/Hg (80-100); ARTERIAL BLOOD GAS TCO2 21.2 mmol/L (22-28)
[2018-08-12] MEDS: Albuterol-Ipratrop 3 mg / 0.5 (3 ml) UD INH SCH ×2 (20:09→23:42)
--- NOTE | 2018-08-12 20:30 | CP.PCM.PN ---
Subjective - Date & Time of Evaluation Date of Evaluation: 08/12/18 Time of Evaluation: 07:25 - Subjective Subjective: dict Objective - Vital Signs/Intake and Output Vital Signs (last 24 hours): Temp Pulse Resp BP Pulse Ox 97.4 F L 68 20 87/55 L 99 08/12/18 20:00 08/12/18 20:16 08/12/18 20:16 08/12/18 20:16 08/12/18 20:16 Intake and Output: 08/12/18 08/13/18 18:59 06:59 Intake Total 466.4 83.1 Output Total 520 40 Balance -53.6 43.1 - Medications Medications: Current Medications Albuterol/Ipratropium (Duoneb 3 Mg/0.5 Mg (3 Ml) Ud) 3 ml INH RQ4 [facility] Last Admin: 08/12/18 20:09 Dose: 3 ml Famotidine (Pepcid) 20 mg IVP DAILY [facility] Last Admin: 08/12/18 09:54 Dose: 20 mg Piperacillin Sod/Tazobactam Sod (Zosyn 3.375 Gm Iv Premix) 3.375 gm in 50 mls @ 100 mls/hr IVPB Q8H [facility]; Protocol Last Admin: 08/12/18 16:50 Dose: 100 mls/hr Sodium Bicarbonate 150 meq/ (Dextrose) 1,150 mls @ 50 mls/hr IV .Q23H [facility] Last Admin: 08/12/18 09:54 Dose: 50 mls/hr Dexmedetomidine HCl 200 mcg/ (Sodium Chloride) 50 mls @ 4.07 mls/hr IV TITR PRN; Protocol PRN Reason: Agitation Last Titration: 08/12/18 20:11 Dose: 0.5 mcg/kg/hr, 10.16 mls/hr Insulin Human Regular (Novolin R) 0 unit SC Q6 [facility]; Protocol Methylprednisolone (Solu-Medrol) 40 mg IVP Q6H [facility] Multivitamins/Vitamin C (Multi-Delyn Liquid) 5 ml PO DAILY [facility] Last Admin: 08/12/18 09:54 Dose: Not Given - Labs Labs: 08/12/18 06:46 08/12/18 06:46
[2018-08-12 20:40] LABS: ALB/GLOB RATIO 0.9 (1.0-2.1); ALBUMIN 2.9 g/dL (3.5-5.0); CALCIUM 7.4 mg/dl (8.6-10.4)
[2018-08-13] MEDS: (Novolin R) Insulin Human Regular 100 units/ml vial SC SCH ×4 (00:40→18:35)
--- NOTE | 2018-08-13 00:52 | PN ---
DATE: 08/12/2018 SUBJECTIVE: The patient is drowsy. He is withdrawing. He has Copeland catheter with bloody urine with clots in the urine. The patient's heparin is on hold. The patient is congested. He is wheezing. He is on Zosyn. WBC is high. PHYSICAL EXAMINATION: GENERAL: The patient is afebrile. VITAL SIGNS: Blood pressure 87/54, pulse 68, respiratory rate 20, temperature 99. LUNGS: Positive basal fine crepitations. Decreased air entry. CARDIOVASCULAR: S1 and S2, regular. ABDOMEN: Soft. Nontender. ASSESSMENT: 1. Pneumonia. 2. Low blood pressure. 3. Alcohol-induced withdrawal. 4. Anemia. PLAN: Continue current medication. The patient is sick. Supportive care. Chino Cheung MD
[2018-08-13] MEDS: Dexmedetomidine Hydrochloride 200 MCG in Sodium Chloride 0.9% 48 ML IV PRN ×7 (02:32→22:35)
[2018-08-13] MEDS: MethylPREDNISolone 40 mg Vial IVP SCH ×4 (02:35→18:36)
[2018-08-13] MEDS: Albuterol-Ipratrop 3 mg / 0.5 (3 ml) UD INH SCH ×5 (03:26→19:38)
[2018-08-13 05:35] LABS: ARTERIAL BLOOD GAS HCO3 22.3 mmol/L (21-28); ARTERIAL BLOOD GAS PCO2 32 mm/Hg (35-45); ARTERIAL BLOOD GAS PH 7.41 (7.35-7.45); ARTERIAL BLOOD GAS PO2 112 mm/Hg (80-100); ARTERIAL BLOOD GAS TCO2 21.3 mmol/L (22-28)
[2018-08-13 06:20] LABS: BASO % 0.3 % (0.0-2.0); EOS % 0.2 % (0.0-4.0); HEMOGLOBIN 8.5 g/dL (12.0-18.0); LYMPH # 1.3 K/uL (1.0-4.3); LYMPH % 12.2 % (20.0-40.0); MEAN CELL VOLUME 79.8 fL (80.0-94.0); MEAN CORPUSCULAR HEMOGLOBIN 25.3 pg (27.0-31.0); MEAN CORPUSCULAR HGB CONC 31.8 g/dL (33.0-37.0); MEAN PLATELET VOLUME 8.4 fL (7.2-11.7); MONO # 0.3 K/uL (0.0-0.8); MONO % 3.2 % (0.0-10.0); NEUT # 9.1 K/uL (1.8-7.0); NEUT % 84.1 % (50.0-75.0); RBC 3.34 Mil/uL (4.40-5.90); RED CELL DISTRIBUTION WIDTH 20.7 % (11.5-14.5); WHITE BLOOD COUNT 10.8 K/uL (4.8-10.8)
[2018-08-13 06:35] LABS: ALB/GLOB RATIO 0.8 (1.0-2.1); ALBUMIN 2.8 g/dL (3.5-5.0); CALCIUM 7.5 mg/dl (8.6-10.4)
[2018-08-13] MEDS ORDERED: Propofol 10 mg/ml Inj (20 ML) IV ONE (07:30)
[2018-08-13] MEDS ORDERED: Propofol 10 mg/ml Inj (20 ML) ONE (07:43)
[2018-08-13] MEDS: Sodium Bicarbonate 8.4% 150 MEQ in Dextrose 5% In Water 1,000 ML IV SCH (08:00)
[2018-08-13] MEDS: Piperacill/Tazo 3.375gm in Dex 3.375 GM/50 ML BAG IVPB SCH ×3 (08:03→16:24)
[2018-08-13] MEDS: Acetylcysteine 20% Inhal Soln (4ml) PO SCH ×2 (09:13→20:50)
[2018-08-13] MEDS: Multiple Vitamins Oral Solution PO SCH (09:13)
[2018-08-13] MEDS: Sodium Chloride 0.9% 1,000 ML IV SCH (09:13)
--- NOTE | 2018-08-13 10:19 | CP.CCUPN ---
CCU Subjective - Physician Review Subjective (Free Text): Patient remained on ventilation, at times agitated 08/13/18 10:09 Critical Care Time Spent (in minutes): 39 CCU Objective - Vital Signs / Intake & Output Vital Signs (Last 4 hours): Vital Signs Temp Pulse Resp BP Pulse Ox 08/13/18 09:00 90 27 H 99 08/13/18 08:57 92 H 30 H 96/60 L 99 08/13/18 08:27 93 H 25 H 96/57 L 100 08/13/18 08:00 97.6 F 88 20 100 08/13/18 07:57 87 22 92/57 L 100 08/13/18 07:40 92 H 48 H 91/54 L 08/13/18 07:27 81 21 95/61 L 100 08/13/18 07:00 83 27 H 100 08/13/18 06:57 83 27 H 96/62 L 100 08/13/18 06:27 84 25 H 96/62 L 100 Intake and Output (Last 8hrs): Intake & Output 08/12/18 08/13/18 08/13/18 22:59 06:59 14:59 Intake Total 591.3 680.4 328.9 Output Total 270 230 80 Balance 321.3 450.4 248.9 Weight 176 lb Intake: IV 80.0 100 50 Intake, IV Amount 511.3 580.4 248.9 Left Wrist 50 50 50 Right Forearm 400 400 150 Right Hand 61.3 130.4 48.9 Oral 0 0 30 Output: Urine 270 230 80 Condom 270 230 80 Other: # Bowel Movements 1 0 0 - Physical Exam Head: Positive for: Atraumatic, Normocephalic Mouth: Positive for: Drooling Respiratory/Chest: Positive for: Good Air Exchange, Rales, Rhonchi. Negative for: Respiratory Distress, Accessory Muscle Use Cardiovascular: Positive for: Normal S1, S2, Tachycardic Abdomen: Positive for: Normal Bowel Sounds Lower Extremity: Positive for: Normal Inspection Neurological: Negative for: GCS=15, Speech Normal - Medications Active Medications: Active Medications Generic Name Dose Route Start Last Admin Trade Name Freq PRN Reason Stop Dose Admin Acetylcysteine 6 ml 08/13/18 08:45 08/13/18 09:13 Acetylcysteine 20% PO 08/14/18 20:46 6 ml Q12H ASHLEIGH Administration Albuterol/Ipratropium 3 ml 08/12/18 20:00 08/13/18 07:41 Duoneb 3 Mg/0.5 Mg (3 Ml) Ud INH 3 ml RQ4 ASHLEIGH Administration Famotidine 20 mg 08/11/18 10:00 08/12/18 09:54 Pepcid IVP 20 mg DAILY ASHLEIGH Administration Piperacillin Sod/Tazobactam Sod 3.375 gm in 50 mls @ 100 mls/hr 08/12/18 16:00 08/13/18 08:03 Zosyn 3.375 Gm Iv Premix IVPB 100 mls/hr Q8H ASHLEIGH Administration Protocol Dexmedetomidine HCl 200 mcg/ 50 mls @ 4.07 mls/hr 08/12/18 14:30 08/13/18 09:33 Sodium Chloride IV 0.8 mcg/kg/hr TITR PRN 16.26 mls/hr Agitation Administration Protocol 0.2 MCG/KG/HR Sodium Chloride 1,000 mls @ 50 mls/hr 08/13/18 08:45 08/13/18 09:13 Sodium Chloride 0.9% IV 50 mls/hr .Q20H ASHLEIGH Administration Insulin Human Regular 0 unit 08/13/18 00:00 08/13/18 06:20 Novolin R SC 2 unit Q6 ASHLEIGH Administration Protocol Methylprednisolone 40 mg 08/12/18 19:15 08/13/18 08:02 Solu-Medrol IVP 40 mg Q6H ASHLEIGH Administration Multivitamins/Vitamin C 5 ml 08/11/18 10:00 08/13/18 09:13 Multi-Delyn Liquid PO 5 ml DAILY ASHLEIGH Administration - Patient Studies Lab Studies: Microbiology Studies 08/11/18 05:02 MRSA Culture (Admit) - Final Naris MRSA NOT DETECTED 08/11/18 01:30 Blood Culture - Final Blood-Venous Group G Streptococcus Gram Stain - Final 08/11/18 01:00 S.aureus & Coag-Neg Staph PNA FISH - Final Blood-Venous Blood Culture - Final Group G Streptococcus Gram Stain - Final Lab Studies 08/13/18 08/13/18 08/13/18 Range/Units 06:12 06:09 06:09 WBC 10.8 (4.8-10.8) K/uL RBC 3.34 L (4.40-5.90) Mil/uL Hgb 8.5 L (12.0-18.0) g/dL Hct 26.6 L (35.0-51.0) % MCV 79.8 L (80.0-94.0) fL MCH 25.3 L (27.0-31.0) pg MCHC 31.8 L (33.0-37.0) g/dL RDW 20.7 H (11.5-14.5) % Plt Count 92 L (130-400) K/uL MPV 8.4 (7.2-11.7) fL Neut % (Auto) 84.1 H (50.0-75.0) % Lymph % (Auto) 12.2 L (20.0-40.0) % [place] % (Auto) 3.2 (0.0-10.0) % Eos % (Auto) 0.2 (0.0-4.0) % Baso % (Auto) 0.3 (0.0-2.0) % Neut # (Auto) 9.1 H (1.8-7.0) K/uL Lymph # (Auto) 1.3 (1.0-4.3) K/uL [place] # (Auto) 0.3 (0.0-0.8) K/uL Eos # (Auto) 0.0 (0.0-0.7) K/uL Baso # (Auto) 0.0 (0.0-0.2) K/uL Neutrophils % (Manual) (50-75) % Band Neutrophils % (0-2) % Lymphocytes % (Manual) (20-40) % Monocytes % (Manual) (0-10) % Toxic Granulation Platelet Estimate (NORMAL) Large Platelets Giant Platelets Polychromasia Hypochromasia (manual) Poikilocytosis (manual Anisocytosis (manual) Microcytosis (manual) Ovalocytes [place]ona Cells Puncture Site pCO2 (35-45) mm/Hg pO2 (80-100) mm/Hg HCO3 (21-28) mmol/L ABG pH (7.35-7.45) ABG Total CO2 (22-28) mmol/L ABG O2 Saturation (95-98) % ABG Base Excess (-2.0-3.0) mmol/L Rei Test ABG Potassium (3.6-5.2) mmol/L A-a O2 Difference mm/Hg Respiratory Index Sodium 135 (132-148) mmol/l Chloride 102 (98-107) mmol/L Glucose (75-110) mg/dl Lactate (0.7-2.1) mmol/L Vent Mode Mechanical Rate FiO2 % Tidal Volume PEEP Potassium 3.8 (3.6-5.2) mmol/L Carbon Dioxide 20 L (22-30) mmol/L Anion Gap 17 (10-20) BUN 39 H (9-20) mg/dL Creatinine 2.8 H (0.8-1.5) mg/dL Est GFR ( Amer) 28 Est GFR (Non-Af Amer) 23 Random Glucose 220 H D (75-110) mg/dL Calcium 7.5 L (8.6-10.4) mg/dl Phosphorus 5.5 H (2.5-4.5) mg/dL Magnesium 2.2 (1.6-2.3) mg/dL Total Bilirubin 0.9 (0.2-1.3) mg/dL AST 174 H (17-59) U/L ALT 51 (21-72) U/L Alkaline Phosphatase 39 (38-126) U/L Ammonia 38 H (9-33) umol/L Total Protein 6.4 (6.3-8.3) g/dL Albumin 2.8 L (3.5-5.0) g/dL Globulin 3.5 (2.2-3.9) gm/dL Albumin/Globulin Ratio 0.8 L (1.0-2.1) Arterial Blood Potassium (3.6-5.2) mmol/L Random Vancomycin ug/mL 08/13/18 08/13/18 08/12/18 Range/Units 06:09 05:17 20:20 WBC (4.8-10.8) K/uL RBC (4.40-5.90) Mil/uL Hgb (12.0-18.0) g/dL Hct (35.0-51.0) % MCV (80.0-94.0) fL MCH (27.0-31.0) pg MCHC (33.0-37.0) g/dL RDW (11.5-14.5) % Plt Count (130-400) K/uL MPV (7.2-11.7) fL Neut % (Auto) (50.0-75.0) % Lymph % (Auto) (20.0-40.0) % [place] % (Auto) (0.0-10.0) % Eos % (Auto) (0.0-4.0) % Baso % (Auto) (0.0-2.0) % Neut # (Auto) (1.8-7.0) K/uL Lymph # (Auto) (1.0-4.3) K/uL [place] # (Auto) (0.0-0.8) K/uL Eos # (Auto) (0.0-0.7) K/uL Baso # (Auto) (0.0-0.2) K/uL Neutrophils % (Manual) (50-75) % Band Neutrophils % (0-2) % Lymphocytes % (Manual) (20-40) % Monocytes % (Manual) (0-10) % Toxic Granulation Platelet Estimate (NORMAL) Large Platelets Giant Platelets Polychromasia Hypochromasia (manual) Poikilocytosis (manual Anisocytosis (manual) Microcytosis (manual) Ovalocytes [place] Cells Puncture Site Rb pCO2 32 L (35-45) mm/Hg pO2 112 H (80-100) mm/Hg HCO3 22.3 (21-28) mmol/L ABG pH 7.41 (7.35-7.45) ABG Total CO2 21.3 L (22-28) mmol/L ABG O2 Saturation 100.0 H (95-98) % ABG Base Excess -3.4 L (-2.0-3.0) mmol/L Rei Test Na ABG Potassium 3.5 L (3.6-5.2) mmol/L A-a O2 Difference 205.0 mm/Hg Respiratory Index 1.8 Sodium 133.0 130 L (132-148) mmol/l Chloride 103.0 102 (98-107) mmol/L Glucose 223 H (75-110) mg/dl Lactate 2.0 (0.7-2.1) mmol/L Vent Mode Prvc Mechanical Rate 20 FiO2 50.0 % Tidal Volume 450 PEEP 5 Potassium 3.9 (3.6-5.2) mmol/L Carbon Dioxide 19 L (22-30) mmol/L Anion Gap 13 (10-20) BUN 31 H (9-20) mg/dL Creatinine 2.7 H (0.8-1.5) mg/dL Est GFR ( Amer) 30 Est GFR (Non-Af Amer) 24 Random Glucose 148 H D (75-110) mg/dL Calcium 7.4 L (8.6-10.4) mg/dl Phosphorus 6.2 H (2.5-4.5) mg/dL Magnesium 2.2 (1.6-2.3) mg/dL Total Bilirubin 0.9 (0.2-1.3) mg/dL AST 209 H D (17-59) U/L ALT 54 (21-72) U/L Alkaline Phosphatase 38 D (38-126) U/L Ammonia (9-33) umol/L Total Protein 6.3 (6.3-8.3) g/dL Albumin 2.9 L (3.5-5.0) g/dL Globulin 3.4 (2.2-3.9) gm/dL Albumin/Globulin Ratio 0.9 L (1.0-2.1) Arterial Blood Potassium 3.5 L (3.6-5.2) mmol/L Random Vancomycin 19.7 ug/mL 08/12/18 08/12/18 Range/Units 19:58 06:46 WBC (4.8-10.8) K/uL RBC (4.40-5.90) Mil/uL Hgb (12.0-18.0) g/dL Hct (35.0-51.0) % MCV (80.0-94.0) fL MCH (27.0-31.0) pg MCHC (33.0-37.0) g/dL RDW (11.5-14.5) % Plt Count (130-400) K/uL MPV (7.2-11.7) fL Neut % (Auto) (50.0-75.0) % Lymph % (Auto) (20.0-40.0) % [place] % (Auto) (0.0-10.0) % Eos % (Auto) (0.0-4.0) % Baso % (Auto) (0.0-2.0) % Neut # (Auto) (1.8-7.0) K/uL Lymph # (Auto) (1.0-4.3) K/uL [place] # (Auto) (0.0-0.8) K/uL Eos # (Auto) (0.0-0.7) K/uL Baso # (Auto) (0.0-0.2) K/uL Neutrophils % (Manual) 70 (50-75) % Band Neutrophils % 19 H* (0-2) % Lymphocytes % (Manual) 3 L (20-40) % Monocytes % (Manual) 8 (0-10) % Toxic Granulation Present Platelet Estimate Slightly decreased L (NORMAL) Large Platelets Present Giant Platelets Present Polychromasia Slight Hypochromasia (manual) Moderate Poikilocytosis (manual Slight Anisocytosis (manual) Moderate Microcytosis (manual) Slight Ovalocytes Slight [place] Cells Slight Puncture Site Rb pCO2 38 (35-45) mm/Hg pO2 315 H (80-100) mm/Hg HCO3 20.8 L (21-28) mmol/L ABG pH 7.33 L (7.35-7.45) ABG Total CO2 21.2 L (22-28) mmol/L ABG O2 Saturation 100.8 H (95-98) % ABG Base Excess -5.4 L (-2.0-3.0) mmol/L Rei Test Na ABG Potassium 3.7 (3.6-5.2) mmol/L A-a O2 Difference 351.0 mm/Hg Respiratory Index 1.1 Sodium 131.0 L (132-148) mmol/l Chloride 104.0 (98-107) mmol/L Glucose 152 H (75-110) mg/dl Lactate 1.3 (0.7-2.1) mmol/L Vent Mode Prvc Mechanical Rate 20 FiO2 100.0 % Tidal Volume 450 PEEP 5 Potassium (3.6-5.2) mmol/L Carbon Dioxide (22-30) mmol/L Anion Gap (10-20) BUN (9-20) mg/dL Creatinine (0.8-1.5) mg/dL Est GFR ( Amer) Est GFR (Non-Af Amer) Random Glucose (75-110) mg/dL Calcium (8.6-10.4) mg/dl Phosphorus (2.5-4.5) mg/dL Magnesium (1.6-2.3) mg/dL Total Bilirubin (0.2-1.3) mg/dL AST (17-59) U/L ALT (21-72) U/L Alkaline Phosphatase (38-126) U/L Ammonia (9-33) umol/L Total Protein (6.3-8.3) g/dL Albumin (3.5-5.0) g/dL Globulin (2.2-3.9) gm/dL Albumin/Globulin Ratio (1.0-2.1) Arterial Blood Potassium 3.7 (3.6-5.2) mmol/L Random Vancomycin ug/mL Laboratory Results - last 24 hr 08/12/18 08/12/18 08/12/18 06:46 19:58 20:20 WBC RBC Hgb Hct MCV MCH MCHC RDW Plt Count MPV Neut % (Auto) Lymph % (Auto) [place] % (Auto) Eos % (Auto) Baso % (Auto) Neut # (Auto) Lymph # (Auto) [place] # (Auto) Eos # (Auto) Baso # (Auto) Neutrophils % (Manual) 70 Band Neutrophils % 19 H* Lymphocytes % (Manual) 3 L Monocytes % (Manual) 8 Toxic Granulation Present Platelet Estimate Slightly decreased L Large Platelets Present Giant Platelets Present Polychromasia Slight Hypochromasia (manual) Moderate Poikilocytosis (manual Slight Anisocytosis (manual) Moderate Microcytosis (manual) Slight Ovalocytes Slight [place] Cells Slight Puncture Site Rb pCO2 38 pO2 315 H HCO3 20.8 L ABG pH 7.33 L ABG Total CO2 21.2 L ABG O2 Saturation 100.8 H ABG Base Excess -5.4 L Rei Test Na ABG Potassium 3.7 A-a O2 Difference 351.0 Respiratory Index 1.1 Sodium 131.0 L 130 L Chloride 104.0 102 Glucose 152 H Lactate 1.3 Vent Mode Prvc Mechanical Rate 20 FiO2 100.0 Tidal Volume 450 PEEP 5 Potassium 3.9 Carbon Dioxide 19 L Anion Gap 13 BUN 31 H Creatinine 2.7 H Est GFR ( Amer) 30 Est GFR (Non-Af Amer) 24 Random Glucose 148 H D Calcium 7.4 L Phosphorus 6.2 H Magnesium 2.2 Total Bilirubin 0.9 AST 209 H D ALT 54 Alkaline Phosphatase 38 D Ammonia Total Protein 6.3 Albumin 2.9 L Globulin 3.4 Albumin/Globulin Ratio 0.9 L Arterial Blood Potassium 3.7 Random Vancomycin 08/13/18 08/13/18 08/13/18 05:17 06:09 06:09 WBC RBC Hgb Hct MCV MCH MCHC RDW Plt Count MPV Neut % (Auto) Lymph % (Auto) [place] % (Auto) Eos % (Auto) Baso % (Auto) Neut # (Auto) Lymph # (Auto) [place] # (Auto) Eos # (Auto) Baso # (Auto) Neutrophils % (Manual) Band Neutrophils % Lymphocytes % (Manual) Monocytes % (Manual) Toxic Granulation Platelet Estimate Large Platelets Giant Platelets Polychromasia Hypochromasia (manual) Poikilocytosis (manual Anisocytosis (manual) Microcytosis (manual) Ovalocytes [place] Cells Puncture Site Rb pCO2 32 L pO2 112 H HCO3 22.3 ABG pH 7.41 ABG Total CO2 21.3 L ABG O2 Saturation 100.0 H ABG Base Excess -3.4 L Rei Test Na ABG Potassium 3.5 L A-a O2 Difference 205.0 Respiratory Index 1.8 Sodium 133.0 135 Chloride 103.0 102 Glucose 223 H Lactate 2.0 Vent Mode Prvc Mechanical Rate 20 FiO2 50.0 Tidal Volume 450 PEEP 5 Potassium 3.8 Carbon Dioxide 20 L Anion Gap 17 BUN 39 H Creatinine 2.8 H Est GFR ( Amer) 28 Est GFR (Non-Af Amer) 23 Random Glucose 220 H D Calcium 7.5 L Phosphorus 5.5 H Magnesium 2.2 Total Bilirubin 0.9 AST 174 H ALT 51 Alkaline Phosphatase 39 Ammonia Total Protein 6.4 Albumin 2.8 L Globulin 3.5 Albumin/Globulin Ratio 0.8 L Arterial Blood Potassium 3.5 L Random Vancomycin 19.7 08/13/18 08/13/18 06:09 06:12 WBC 10.8 RBC 3.34 L Hgb 8.5 L Hct 26.6 L MCV 79.8 L MCH 25.3 L MCHC 31.8 L RDW 20.7 H Plt Count 92 L MPV 8.4 Neut % (Auto) 84.1 H Lymph % (Auto) 12.[address] [place] % (Auto) 3.2 Eos % (Auto) 0.2 Baso % (Auto) 0.3 Neut # (Auto) 9.1 H Lymph # (Auto) 1.3 [place] # (Auto) 0.3 Eos # (Auto) 0.0 Baso # (Auto) 0.0 Neutrophils % (Manual) Band Neutrophils % Lymphocytes % (Manual) Monocytes % (Manual) Toxic Granulation Platelet Estimate Large Platelets Giant Platelets Polychromasia Hypochromasia (manual) Poikilocytosis (manual Anisocytosis (manual) Microcytosis (manual) Ovalocytes [place] Cells Puncture Site pCO2 pO2 HCO3 ABG pH ABG Total CO2 ABG O2 Saturation ABG Base Excess Rei Test ABG Potassium A-a O2 Difference Respiratory Index Sodium Chloride Glucose Lactate Vent Mode Mechanical Rate FiO2 Tidal Volume PEEP Potassium Carbon Dioxide Anion Gap BUN Creatinine Est GFR ( Amer) Est GFR (Non-Af Amer) Random Glucose Calcium Phosphorus Magnesium Total Bilirubin AST ALT Alkaline Phosphatase Ammonia 38 H Total Protein Albumin Globulin Albumin/Globulin Ratio Arterial Blood Potassium Random Vancomycin Radiology Impressions: Radiology Impressions Abdomen/Bladder Ultrasound 08/12/18 10:08 IMPRESSION: Enlarged nodular liver consistent with hepatic cirrhosis and fatty infiltration. Cholelithiasis. No evidence of cholecystitis. No evidence of biliary obstruction. Trace ascites. Fingerstick Blood Sugar Results: 245 Review of Systems - Review of Systems Systems not reviewed;Unavailable: Intubated Critical Care Progress Note - Ventilator Checklist Head of Bed 30 Degrees: Yes Daily Sedation Vacation: Yes Daily Assessment of Readiness to Wean: Yes Daily Spontaneous Breathing Trial: Yes PUD Prophalyxis: Yes DVT Prophylaxis: Yes Oral Care with Chlorhexidine Gluconate {CHG}: Yes - Extremities/Vascular Does the Patient have a Central Venous Catheter?: No Does the Patient need a Central Venous Catheter?: No Does the Patient have a [place] Catheter?: Yes (critical strict I/O) Does the Patient need a [place] Catheter?: Yes (see above) Catheter Insertion Criteria: Need for accurate measurement of output in critically ill patient - Restraints Justification for Restraints: High risk for removing IV access - Prophylaxis GI Prophylaxis GI: PPI - Prophylaxis DVT Prophylaxis DVT: Lovenox Assessment/Plan - Assessment and Plan (Free Text) Assessment: -ASpiration yesterday, intubated for hypoxic respiratory failure: FiO2 30 percent, did not tolerated CPAP today -SVT: resolved, HR now near 80s -COPD: continue solumedrol + duonebs -hyponatremia/RAMIREZ with metabolic acidosis: slow improvement, continue IVF ggt, urine output >500 ml over 24 hours -AMS: subdural no signs of external contusion, mentally awake when off sedation -ANion gap metabolic acidosis: resolving -start NG tube feeds -?sepsis: etiology strep bacteremia, continue zosyn, no indication for vanco as not MRSA -RAMIREZ: avoid nephrotoxic drugs, monitor urine output, renal US, continue gentle hydration -DTS: continue precedex, agitated at times -BGM q6hrs, ISS -Metabolic and respiratory acidosis: intubated and IVF, slow improvement in urine output -dvt ppx:heparin SQ pud ppx pepcid cc time 39 minutes - Date & Time Date: 08/13/18 Time: 10:49
--- NOTE | 2018-08-13 10:23 | RAD ---
Date of service: 08/13/2018 HISTORY: intubated COMPARISON: 08/12/2018 TECHNIQUE: Two view obtained. FINDINGS: LUNGS: Once again, there is extensive bilateral pulmonary opacity, somewhat patchy in distribution. There is no focal consolidation. PLEURA: Probable small bilateral pleural effusion. No pneumothorax. CARDIOVASCULAR: No aortic atherosclerotic calcification present. Normal cardiac size. Endotracheal tube tip approximately 3.0 cm above the tracheal sterling. Nasogastric tube extends to the left upper abdomen. OSSEOUS STRUCTURES: No significant abnormalities. VISUALIZED UPPER ABDOMEN: Normal. OTHER FINDINGS: None. IMPRESSION: Extensive bilateral pulmonary opacity. Possible pneumonia. ET tube and NG tube grossly unchanged. Possible small bilateral pleural effusion.
--- NOTE | 2018-08-13 10:56 | CP.PCM.PN ---
Subjective - Date & Time of Evaluation Date of Evaluation: 08/13/18 Time of Evaluation: 08:20 - Subjective Subjective: dict Objective - Vital Signs/Intake and Output Vital Signs (last 24 hours): Temp Pulse Resp BP Pulse Ox 97.6 F 86 24 95/58 L 99 08/13/18 08:00 08/13/18 10:00 08/13/18 10:00 08/13/18 09:57 08/13/18 10:00 Intake and Output: 08/13/18 08/13/18 06:59 18:59 Intake Total 1005.3 435.2 Output Total 360 115 Balance 645.3 320.2 - Medications Medications: Current Medications Acetylcysteine (Acetylcysteine 20%) 6 ml PO Q12H ASHLEIGH Stop: 08/14/18 20:46 Last Admin: 08/13/18 09:13 Dose: 6 ml Albuterol/Ipratropium (Duoneb 3 Mg/0.5 Mg (3 Ml) Ud) 3 ml INH RQ4 ASHLEIGH Last Admin: 08/13/18 07:41 Dose: 3 ml Famotidine (Pepcid) 20 mg IVP DAILY ASHLEIGH Last Admin: 08/13/18 10:24 Dose: 20 mg Heparin Sodium (Porcine) (Heparin) 5,000 units SC Q8 ASHLEIGH Piperacillin Sod/Tazobactam Sod (Zosyn 3.375 Gm Iv Premix) 3.375 gm in 50 mls @ 100 mls/hr IVPB Q8H ASHLEIGH; Protocol Last Admin: 08/13/18 08:03 Dose: 100 mls/hr Dexmedetomidine HCl 200 mcg/ (Sodium Chloride) 50 mls @ 4.07 mls/hr IV TITR PRN; Protocol PRN Reason: Agitation Last Admin: 08/13/18 09:33 Dose: 0.8 mcg/kg/hr, 16.26 mls/hr Sodium Chloride (Sodium Chloride 0.9%) 1,000 mls @ 50 mls/hr IV .Q20H ASHLEIGH Last Admin: 08/13/18 09:13 Dose: 50 mls/hr Insulin Human Regular (Novolin R) 0 unit SC Q6 ASHLEIGH; Protocol Last Admin: 08/13/18 06:20 Dose: 2 unit Methylprednisolone (Solu-Medrol) 40 mg IVP Q6H ASHLEIGH Last Admin: 08/13/18 08:02 Dose: 40 mg Multivitamins/Vitamin C (Multi-Delyn Liquid) 5 ml PO DAILY ASHLEIGH Last Admin: 08/13/18 09:13 Dose: 5 ml - Labs Labs: 08/13/18 06:12 08/13/18 06:09
--- NOTE | 2018-08-13 15:31 | CP.PCM.PN ---
Subjective - Date & Time of Evaluation Date of Evaluation: 08/13/18 Time of Evaluation: 07:00 - Subjective Subjective: awake and alert on vent via ETT no new complaints interim events noted patient examined entries reviewed labs reviewed orders signed Objective - Vital Signs/Intake and Output Vital Signs (last 24 hours): Temp Pulse Resp BP Pulse Ox 96.8 F L 94 H 33 H 100/60 99 08/13/18 12:00 08/13/18 14:00 08/13/18 14:00 08/13/18 13:57 08/13/18 14:00 Intake and Output: 08/13/18 08/13/18 06:59 18:59 Intake Total 1005.3 830.4 Output Total 360 255 Balance 645.3 575.4 - Medications Medications: Current Medications Acetylcysteine (Acetylcysteine 20%) 6 ml PO Q12H [facility] Stop: 08/14/18 20:46 Last Admin: 08/13/18 09:13 Dose: 6 ml Albuterol/Ipratropium (Duoneb 3 Mg/0.5 Mg (3 Ml) Ud) 3 ml INH RQ4 ASHLEIGH Last Admin: 08/13/18 13:05 Dose: 3 ml Famotidine (Pepcid) 20 mg IVP DAILY ASHLEIGH Last Admin: 08/13/18 10:24 Dose: 20 mg Heparin Sodium (Porcine) (Heparin) 5,000 units SC Q8 ASHLEIGH Last Admin: 08/13/18 14:01 Dose: 5,000 units Piperacillin Sod/Tazobactam Sod (Zosyn 3.375 Gm Iv Premix) 3.375 gm in 50 mls @ 100 mls/hr IVPB Q8H ASHLEIGH; Protocol Last Admin: 08/13/18 08:03 Dose: 100 mls/hr Dexmedetomidine HCl 200 mcg/ (Sodium Chloride) 50 mls @ 4.07 mls/hr IV TITR PRN; Protocol PRN Reason: Agitation Last Admin: 08/13/18 12:18 Dose: 0.8 mcg/kg/hr, 16.26 mls/hr Sodium Chloride (Sodium Chloride 0.9%) 1,000 mls @ 50 mls/hr IV .Q20H ASHLEIGH Last Admin: 08/13/18 09:13 Dose: 50 mls/hr Insulin Human Regular (Novolin R) 0 unit SC Q6 ASHLEIGH; Protocol Last Admin: 08/13/18 11:26 Dose: 2 unit Methylprednisolone (Solu-Medrol) 40 mg IVP Q6H [facility] Last Admin: 08/13/18 12:17 Dose: 40 mg Multivitamins/Vitamin C (Multi-Delyn Liquid) 5 ml PO DAILY [facility] Last Admin: 08/13/18 09:13 Dose: 5 ml - Labs Labs: 08/13/18 06:12 08/13/18 06:09 - Constitutional Appears: Confused, Cachectic, Chronically Ill - Head Exam Head Exam: ATRAUMATIC, NORMAL INSPECTION, NORMOCEPHALIC - Eye Exam Eye Exam: EOMI, Normal appearance, PERRL Pupil Exam: NORMAL ACCOMODATION, PERRL - ENT Exam ENT Exam: Mucous Membranes Moist, Normal Exam - Neck Exam Neck Exam: Full ROM, Normal Inspection. absent: Lymphadenopathy - Respiratory Exam Respiratory Exam: Decreased Breath Sounds, Prolonged Expiratory Phase, Rhonchi - Cardiovascular Exam Cardiovascular Exam: REGULAR RHYTHM, +S1, +S2. absent: Murmur - GI/Abdominal Exam GI & Abdominal Exam: Soft, Normal Bowel Sounds. absent: Tenderness - Rectal Exam Rectal Exam: Deferred - Exam Exam: NORMAL INSPECTION - Extremities Exam Extremities Exam: Full ROM, Pedal Edema. absent: Joint Swelling, Normal Capillary Refill, Normal Inspection - Back Exam Back Exam: NORMAL INSPECTION - Neurological Exam Neurological Exam: Alert, Altered, CN II-XII Intact. absent: Normal Gait, Oriented x3 - Psychiatric Exam Psychiatric exam: Depressed - Skin Skin Exam: Dry, Erythema, Intact Assessment and Plan (1) Alcohol abuse with intoxication Status: Acute (2) Cirrhosis Status: Acute (3) Hydrocele of testis Status: Acute (4) Pneumonia Status: Acute (5) Sepsis Status: Acute (6) Subdural hemorrhage Status: Acute (7) Alcoholic cirrhosis Status: Chronic - Assessment and Plan (Free Text) Assessment: strep bacteremia/ sepsis IV Zosyn in progress cont supportive care weaning as tolerated
--- NOTE | 2018-08-13 17:47 | RAD ---
Date of service: 08/12/2018 HISTORY: et tube COMPARISON: 08/11/2018 TECHNIQUE: 1 view obtained. FINDINGS: LUNGS: Patchy bilateral pulmonary opacities most prominently in the left suprahilar/hilar region. Suspicious for bilateral pneumonia or asymmetric pulmonary edema. PLEURA: Probable small left pleural effusion. No evidence of right pleural effusion. No pneumothorax. CARDIOVASCULAR: No aortic atherosclerotic calcification present. Normal cardiac size. Congestive change noted. ET tube tip approximately 3.7 cm above the tracheal sterling. NG tube extends to left upper abdomen. OSSEOUS STRUCTURES: No significant abnormalities. VISUALIZED UPPER ABDOMEN: Normal. OTHER FINDINGS: None. IMPRESSION: Patchy bilateral opacities, left greater than right. Probable small left pleural effusion. Possible bilateral pneumonia versus CHF/pulmonary edema. ET tube and NG tube noted in grossly appropriate position.
--- NOTE | 2018-08-13 21:34 | CP.PCM.CON ---
History of Present Illness - History of Present Illness History of Present Illness: CC: Cardiac evaluation for Tachyarrhythmias 57 y/o male with pmx of ETOH abuse intubated due to respiratory failure PMD: Sonya Dove PMHx: HTN, subdural hematoma, lice, thrombocytopenia, anemia, ETOH abuse, liver cirrhosis, pneumonia Meds: metoprolol tartrate 12.5mg BID, Augmenten 875/125 mg BID, Lactobacillus 1 cap BID, aspirin 81mg BID PSHx: None Allergies: NKDA SHx: Extensive hx of ETOH abuse FHx: unknown Review of Systems - Review of Systems Systems not reviewed;Unavailable: Altered Mental Status, Intoxicated, Uncooperative Physical Exam - Head Exam Head Exam: ATRAUMATIC - Respiratory Exam Respiratory Exam: NORMAL BREATHING PATTERN - Cardiovascular Exam Cardiovascular Exam: +S1, +S2 - GI/Abdominal Exam GI & Abdominal Exam: Soft, Tenderness - Extremities Exam Extremities exam: Positive for: pedal edema - Neurological Exam Neurological exam: Altered - Skin Skin Exam: Normal Color Past Patient History - Infectious Disease Hx of Infectious Diseases: None - Tetanus Immunizations Tetanus Immunization: Unknown - Past Medical History & Family History Past Medical History?: Yes - Past Social History Smoking Status: Never Smoked - CARDIAC Hx Hypertension: Yes - PULMONARY Hx Pneumonia: Yes - NEUROLOGICAL Hx Neurological Disorder: No - HEENT Hx HEENT Problems: No - RENAL Hx Chronic Kidney Disease: No - ENDOCRINE/METABOLIC Hx Endocrine Disorders: No - HEMATOLOGICAL/ONCOLOGICAL Hx Anemia: Yes - INTEGUMENTARY Hx Dermatological Problems: No - MUSCULOSKELETAL/RHEUMATOLOGICAL Hx Musculoskeletal Disorders: Yes Hx Falls: Yes - GASTROINTESTINAL Hx Gastrointestinal Disorders: Yes Hx Liver Failure: Yes - GENITOURINARY/GYNECOLOGICAL Hx Genitourinary Disorders: No - PSYCHIATRIC Hx Substance Use: No - SURGICAL HISTORY Hx Surgeries: No - ANESTHESIA Hx Anesthesia: No Hx Anesthesia Reactions: No Meds Allergies/Adverse Reactions: Allergies Allergy/AdvReac Type Severity Reaction Status Date / Time No Known Allergies Allergy Verified 08/10/18 22:44 - Medications Medications: Current Medications Acetylcysteine (Acetylcysteine 20%) 6 ml PO Q12H [facility] Stop: 08/14/18 20:46 Last Admin: 08/13/18 09:13 Dose: 6 ml Albuterol/Ipratropium (Duoneb 3 Mg/0.5 Mg (3 Ml) Ud) 3 ml INH RQ4 [facility] Last Admin: 08/13/18 19:38 Dose: 3 ml Famotidine (Pepcid) 20 mg IVP DAILY [facility] Last Admin: 08/13/18 10:24 Dose: 20 mg Heparin Sodium (Porcine) (Heparin) 5,000 units SC Q8 [facility] Last Admin: 08/13/18 14:01 Dose: 5,000 units Piperacillin Sod/Tazobactam Sod (Zosyn 3.375 Gm Iv Premix) 3.375 gm in 50 mls @ 100 mls/hr IVPB Q8H [facility]; Protocol Last Admin: 08/13/18 16:24 Dose: 100 mls/hr Dexmedetomidine HCl 200 mcg/ (Sodium Chloride) 50 mls @ 4.07 mls/hr IV TITR PRN; Protocol PRN Reason: Agitation Last Admin: 08/13/18 19:24 Dose: 0.8 mcg/kg/hr, 16.26 mls/hr Sodium Chloride (Sodium Chloride 0.9%) 1,000 mls @ 50 mls/hr IV .Q20H [facility] Last Admin: 08/13/18 09:13 Dose: 50 mls/hr Insulin Human Regular (Novolin R) 0 unit SC Q6 [facility]; Protocol Last Admin: 08/13/18 18:35 Dose: Not Given Methylprednisolone (Solu-Medrol) 40 mg IVP Q6H [facility] Last Admin: 08/13/18 18:36 Dose: 40 mg Multivitamins/Vitamin C (Multi-Delyn Liquid) 5 ml PO DAILY [facility] Last Admin: 08/13/18 09:13 Dose: 5 ml Results - Vital Signs Recent Vital Signs: Last Vital Signs Temp 97.9 F 08/13/18 20:00 Pulse 84 08/13/18 19:27 Resp 20 08/13/18 19:27 BP 117/74 08/13/18 19:27 Pulse Ox 100 08/13/18 20:00 - Labs Result Diagrams: 08/13/18 06:12 08/13/18 06:09 Labs: Laboratory Results - last 24 hr 08/13/18 08/13/18 08/13/18 05:17 06:09 06:09 WBC RBC Hgb Hct MCV MCH MCHC RDW Plt Count MPV Neut % (Auto) Lymph % (Auto) [place] % (Auto) Eos % (Auto) Baso % (Auto) Neut # (Auto) Lymph # (Auto) [place] # (Auto) Eos # (Auto) Baso # (Auto) Puncture Site Rb pCO2 32 L pO2 112 H HCO3 22.3 ABG pH 7.41 ABG Total CO2 21.3 L ABG O2 Saturation 100.0 H ABG Base Excess -3.4 L Rei Test Na ABG Potassium 3.5 L A-a O2 Difference 205.0 Respiratory Index 1.8 Sodium 133.0 135 Chloride 103.0 102 Glucose 223 H Lactate 2.0 Vent Mode Prvc Mechanical Rate 20 FiO2 50.0 Tidal Volume 450 PEEP 5 Potassium 3.8 Carbon Dioxide 20 L Anion Gap 17 BUN 39 H Creatinine 2.8 H Est GFR ( Amer) 28 Est GFR (Non-Af Amer) 23 Random Glucose 220 H D Calcium 7.5 L Phosphorus 5.5 H Magnesium 2.2 Total Bilirubin 0.9 AST 174 H ALT 51 Alkaline Phosphatase 39 Ammonia Total Protein 6.4 Albumin 2.8 L Globulin 3.5 Albumin/Globulin Ratio 0.8 L Arterial Blood Potassium 3.5 L Random Vancomycin 19.7 08/13/18 08/13/18 06:09 06:12 WBC 10.8 RBC 3.34 L Hgb 8.5 L Hct 26.6 L MCV 79.8 L MCH 25.3 L MCHC 31.8 L RDW 20.7 H Plt Count 92 L MPV 8.4 Neut % (Auto) 84.1 H Lymph % (Auto) 12.2 L [place] % (Auto) 3.2 Eos % (Auto) 0.2 Baso % (Auto) 0.3 Neut # (Auto) 9.1 H Lymph # (Auto) 1.3 [place] # (Auto) 0.3 Eos # (Auto) 0.0 Baso # (Auto) 0.0 Puncture Site pCO2 pO2 HCO3 ABG pH ABG Total CO2 ABG O2 Saturation ABG Base Excess Rei Test ABG Potassium A-a O2 Difference Respiratory Index Sodium Chloride Glucose Lactate Vent Mode Mechanical Rate FiO2 Tidal Volume PEEP Potassium Carbon Dioxide Anion Gap BUN Creatinine Est GFR ( Amer) Est GFR (Non-Af Amer) Random Glucose Calcium Phosphorus Magnesium Total Bilirubin AST ALT Alkaline Phosphatase Ammonia 38 H Total Protein Albumin Globulin Albumin/Globulin Ratio Arterial Blood Potassium Random Vancomycin Assessment & Plan - Assessment and Plan (Free Text) Assessment: -ASpiration yesterday, intubated for hypoxic respiratory failure: FiO2 30 percent, did not tolerated CPAP today -SVT: resolved, HR now near 80s -COPD: continue solumedrol + duonebs -hyponatremia/RAMIREZ with metabolic acidosis: slow improvement, continue IVF ggt, urine output >500 ml over 24 hours -AMS: subdural no signs of external contusion, mentally awake when off sedation -ANion gap metabolic acidosis: resolving -start NG tube feeds -?sepsis: etiology strep bacteremia, continue zosyn, no indication for vanco as not MRSA -RAMIREZ: avoid nephrotoxic drugs, monitor urine output, renal US, continue gentle hydration -DTS: continue precedex, agitated at times -BGM q6hrs, ISS -Metabolic and respiratory acidosis: intubated and IVF, slow improvement in urine output -dvt ppx:heparin SQ pud ppx pepcid
[2018-08-14] MEDS: Piperacill/Tazo 3.375gm in Dex 3.375 GM/50 ML BAG IVPB SCH
[2018-08-14] MEDS: Albuterol-Ipratrop 3 mg / 0.5 (3 ml) UD INH SCH ×6 (00:04→20:38)
[2018-08-14] MEDS: MethylPREDNISolone 40 mg Vial IVP SCH ×3 (00:16→10:51)
[2018-08-14] MEDS: (Novolin R) Insulin Human Regular 100 units/ml vial SC SCH ×4 (00:18→18:29)
[2018-08-14] MEDS: Dexmedetomidine Hydrochloride 200 MCG in Sodium Chloride 0.9% 48 ML IV PRN ×6 (01:40→20:43)
--- NOTE | 2018-08-14 03:20 | PN ---
DATE: 08/13/2018 SUBJECTIVE: The patient is afebrile. Hemodynamically more stable. Still drowsy, withdrawing. PHYSICAL EXAMINATION: VITAL SIGNS: Blood pressure 90/50, pulse 100, respiratory rate 20, temperature 97.9. LUNGS: Bibasilar crepitations. Reduce air entry. CARDIOVASCULAR SYSTEM: S1, S2, regular. ABDOMEN: Soft. ASSESSMENT: 1. Pneumonia. 2. Acute alcohol withdrawal delirium tremens. 3. 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 4. Dehydration. PLAN: Medical management. Monitor the patient. Chino Cheung MD
[2018-08-14 05:33] LABS: ARTERIAL BLOOD GAS HCO3 21.1 mmol/L (21-28); ARTERIAL BLOOD GAS O2 SAT 99.6 % (95-98); ARTERIAL BLOOD GAS PCO2 22 mm/Hg (35-45); ARTERIAL BLOOD GAS PH 7.48 (7.35-7.45); ARTERIAL BLOOD GAS PO2 107 mm/Hg (80-100); ARTERIAL BLOOD GAS TCO2 17.1 mmol/L (22-28)
[2018-08-14] MEDS: Sodium Chloride 0.9% 1,000 ML IV SCH ×2 (05:45→06:25)
[2018-08-14 06:00] LABS: BASO % 0.1 % (0.0-2.0); HEMOGLOBIN 9.1 g/dL (12.0-18.0); LYMPH # 0.9 K/uL (1.0-4.3); LYMPH % 12.3 % (20.0-40.0); MEAN CELL VOLUME 78.4 fL (80.0-94.0); MEAN CORPUSCULAR HEMOGLOBIN 25.4 pg (27.0-31.0); MEAN CORPUSCULAR HGB CONC 32.4 g/dL (33.0-37.0); MONO # 0.6 K/uL (0.0-0.8); MONO % 7.4 % (0.0-10.0); NEUT # 6.2 K/uL (1.8-7.0); NEUT % 80.2 % (50.0-75.0); RBC 3.59 Mil/uL (4.40-5.90); RED CELL DISTRIBUTION WIDTH 21.2 % (11.5-14.5); WHITE BLOOD COUNT 7.7 K/uL (4.8-10.8)
[2018-08-14 06:25] LABS: ALB/GLOB RATIO 0.9 (1.0-2.1); ALBUMIN 3.1 g/dL (3.5-5.0); CALCIUM 7.4 mg/dl (8.6-10.4)
[2018-08-14] MEDS: Acetylcysteine 20% Inhal Soln (4ml) PO SCH ×2 (07:48→20:49)
[2018-08-14] MEDS: Piperacillin/Tazobact 2.25 GM in Sodium Chloride 100 ML IVPB SCH ×2 (08:00→15:20)
--- NOTE | 2018-08-14 09:10 | RAD ---
Date of service: 08/14/2018 HISTORY: INTUBATED COMPARISON: 08/13/2018. FINDINGS: Endotracheal tube terminates 1.5 cm proximal to the sterling. The nasogastric tube terminates in the stomach. LUNGS: The lungs are well inflated. There is worsening patchy and confluent airspace disease in both lungs. PLEURA: Small pleural effusions. No pneumothorax. CARDIOVASCULAR: Persistent moderate cardiomegaly. No aortic atherosclerotic calcifications present. OSSEOUS STRUCTURES: Within normal limits for the patient's age. VISUALIZED UPPER ABDOMEN: Normal. OTHER FINDINGS: None. IMPRESSION: Worsening multifocal airspace disease in the lungs. Small pleural effusions. Satisfactory position of support tubes.
[2018-08-14] MEDS: Multiple Vitamins Oral Solution PO SCH (10:54)
--- NOTE | 2018-08-14 12:09 | CP.PCM.PN ---
Subjective - Date & Time of Evaluation Date of Evaluation: 08/14/18 Time of Evaluation: 08:00 - Subjective Subjective: on vent via ETT no new complaints interim events noted Objective - Vital Signs/Intake and Output Vital Signs (last 24 hours): Temp Pulse Resp BP Pulse Ox 97.2 F L 77 21 140/86 100 08/14/18 08:00 08/14/18 11:00 08/14/18 11:00 08/14/18 10:57 08/14/18 11:00 Intake and Output: 08/14/18 08/14/18 06:59 18:59 Intake Total 1355.6 471.2 Output Total 750 301 Balance 605.6 170.2 - Medications Medications: Current Medications Acetylcysteine (Acetylcysteine 20%) 6 ml PO Q12H [facility] Stop: 08/14/18 20:46 Last Admin: 08/14/18 07:48 Dose: 6 ml Albuterol/Ipratropium (Duoneb 3 Mg/0.5 Mg (3 Ml) Ud) 3 ml INH RQ4 [facility] Last Admin: 08/14/18 11:39 Dose: 3 ml Famotidine (Pepcid) 20 mg IVP DAILY [facility] Last Admin: 08/14/18 10:51 Dose: 20 mg Heparin Sodium (Porcine) (Heparin) 5,000 units SC Q8 [facility] Last Admin: 08/14/18 05:59 Dose: 5,000 units Dexmedetomidine HCl 200 mcg/ (Sodium Chloride) 50 mls @ 4.07 mls/hr IV TITR PRN; Protocol PRN Reason: Agitation Last Admin: 08/14/18 10:57 Dose: 0.5 mcg/kg/hr, 10.16 mls/hr Piperacillin Sod/Tazobactam (Sod 2.25 gm/ Sodium Chloride) 100 mls @ 200 mls/hr IVPB Q8H [facility]; Protocol Last Admin: 08/14/18 08:00 Dose: 200 mls/hr Insulin Human Regular (Novolin R) 0 unit SC Q6 [facility]; Protocol Last Admin: 08/14/18 05:59 Dose: 3 unit Methylprednisolone (Solu-Medrol) 40 mg IVP DAILY [facility] Last Admin: 08/14/18 10:51 Dose: 40 mg Multivitamins/Vitamin C (Multi-Delyn Liquid) 5 ml PO DAILY [facility] Last Admin: 08/14/18 10:54 Dose: 5 ml - Labs Labs: 08/14/18 05:47 08/14/18 05:47 - Constitutional Appears: Confused, Cachectic, Chronically Ill - Head Exam Head Exam: ATRAUMATIC, NORMAL INSPECTION, NORMOCEPHALIC - Eye Exam Eye Exam: EOMI, Normal appearance, PERRL Pupil Exam: NORMAL ACCOMODATION, PERRL - ENT Exam ENT Exam: Mucous Membranes Moist Additional comments: ETT in place - Neck Exam Neck Exam: Full ROM, Normal Inspection. absent: Lymphadenopathy - Respiratory Exam Respiratory Exam: Clear to Ausculation Bilateral, NORMAL BREATHING PATTERN - Cardiovascular Exam Cardiovascular Exam: REGULAR RHYTHM, +S1, +S2. absent: Murmur - GI/Abdominal Exam GI & Abdominal Exam: Distended, Soft, Hypoactive Bowel Sounds. absent: Tenderness - Rectal Exam Rectal Exam: Deferred - Exam Exam: Scrotal Swelling - Extremities Exam Extremities Exam: Full ROM, Normal Capillary Refill, Normal Inspection. absent: Joint Swelling, Pedal Edema - Back Exam Back Exam: NORMAL INSPECTION - Neurological Exam Neurological Exam: Altered, CN II-XII Intact. absent: Normal Gait, Oriented x3 Neuro motor strength exam: Left Upper Extremity: 3, Right Upper Extremity: 3, Left Lower Extremity: 2/1, Right Lower Extremity: 2/1 - Psychiatric Exam Psychiatric exam: Depressed, Normal Affect, Normal Mood - Skin Skin Exam: Dry, Intact Assessment and Plan (1) Alcohol abuse with intoxication Status: Acute (2) Cirrhosis Status: Acute (3) Hydrocele of testis Status: Acute (4) Pneumonia Status: Acute (5) Sepsis Status: Acute (6) Subdural hemorrhage Status: Acute (7) Alcoholic cirrhosis Status: Chronic - Assessment and Plan (Free Text) Assessment: sepsis 'resp failure pneumonia strep bacteremia lower extrm cellulitis AMS Cirrhosis DT/s cont IV antibiotics supportive care poor prognosis
--- NOTE | 2018-08-14 14:00 | VASCLAB ---
Date of service: 08/12/2018 PROCEDURE: Lower Extremity Venous Duplex Exam. HISTORY: B/L Legs edema, Venous stasis disease. PRIORS: None. TECHNIQUE: Bilateral common femoral, femoral, popliteal and posterior tibial, peroneal and great saphenous veins were evaluated. Flow was assessed with color Doppler, compressibility, assessment of phasic flow and augmentation response. Report prepared by Abdifatah Mejia, T FINDINGS: RIGHT: 1. Common Femoral Vein: 1.1. Compressibility - Fully compressible: Thrombus - None : Flow - Phasic: Augmentation -Normal: Reflux - . 2. Femoral Vein: 2.1. Compressibility - Fully compressible: Thrombus - None : Flow - Phasic: Augmentation -Normal: Reflux - . 3. Popliteal Vein: 3.1. Compressibility - Fully compressible: Thrombus - None : Flow - Phasic: Augmentation -Normal: Reflux - . 4. Posterior Tibial Vein: 4.1. Compressibility - Fully compressible: Thrombus - None: Flow - Phasic: Augmentation -Normal: Reflux - . 5. Peroneal Vein: 5.1. Compressibility - Fully compressible: Thrombus - None: Flow - Phasic: Augmentation -Normal: Reflux - . 6. Great Saphenous Vein: 6.1. Compressibility - Fully compressible: Thrombus - None: Flow - Phasic: Augmentation - Normal: Reflux - . LEFT: 1. Common Femoral Vein: 1.1. Compressibility - Fully compressible: Thrombus - None: Flow - Phasic: Augmentation -Normal: Reflux - . 2. Femoral Vein: 2.1. Compressibility - Fully compressible: Thrombus - None: Flow - Phasic: Augmentation -Normal: Reflux - . 3. Popliteal Vein: 3.1. Compressibility - Fully compressible: Thrombus - None : Flow - Phasic: Augmentation -Normal: Reflux - . 4. Posterior Tibial Vein: 4.1. Compressibility - Fully compressible: Thrombus - None: Flow - Phasic: Augmentation -Normal: Reflux - . 5. Peroneal Vein: 5.1. Compressibility - Fully compressible: Thrombus - None: Flow - Phasic: Augmentation -Normal: Reflux - . 6. Great Saphenous Vein: 6.1. Compressibility - Fully compressible: Thrombus - None: Flow - Phasic: Augmentation - Normal: Reflux - . OTHER FINDINGS: Right: None significant. Left: None significant. IMPRESSION: Right: No evidence of deep or superficial vein thrombosis of the right lower extremity. Left: No evidence of deep or superficial vein thrombosis of the left lower extremity.
--- NOTE | 2018-08-14 14:15 | CP.CCUPN ---
CCU Subjective - Physician Review Subjective (Free Text): 08/14/18 14:46 PGY-1 Critical Care Progress Note for Dr. James Patient seen and examined at bedside. No acute events overnight. Pt remains intubate on vent. ROS unable to be obtained. CCU Objective - Vital Signs / Intake & Output Vital Signs (Last 4 hours): Vital Signs Temp Pulse Resp BP Pulse Ox 08/14/18 13:00 82 21 100 08/14/18 12:57 83 19 147/90 100 08/14/18 12:27 82 21 145/89 100 08/14/18 12:00 97.4 F L 77 20 100 08/14/18 11:57 79 21 141/87 100 08/14/18 11:27 78 16 141/89 100 08/14/18 11:00 77 21 100 08/14/18 10:57 78 22 140/86 100 08/14/18 10:27 80 21 135/83 100 08/14/18 10:00 81 18 100 08/14/18 09:57 83 18 140/85 100 Intake and Output (Last 8hrs): Intake & Output 08/13/18 08/14/18 08/14/18 22:59 06:59 14:59 Intake Total 885.4 910.4 646.6 Output Total 415 500 384 Balance 470.4 410.4 262.6 Weight 176 lb 5.917 oz Intake: IV 150 150 50 Intake, IV Amount 555.4 530.4 316.6 Right Forearm 425 400 225 Right Hand 130.4 130.4 91.6 Oral 30 Tube Feeding 150 230 280 Output: Urine 415 500 384 Condom 215 Urethral ([place]) 200 500 384 Other: # Bowel Movements 0 0 0 - Physical Exam Head: Positive for: Atraumatic, Normocephalic Mouth: Positive for: Drooling Respiratory/Chest: Positive for: Good Air Exchange, Rales, Rhonchi. Negative for: Respiratory Distress, Accessory Muscle Use Cardiovascular: Positive for: Normal S1, S2, Tachycardic Abdomen: Positive for: Normal Bowel Sounds Lower Extremity: Positive for: Normal Inspection Neurological: Negative for: GCS=15, Speech Normal - Medications Active Medications: Active Medications Generic Name Dose Route Start Last Admin Trade Name Freq PRN Reason Stop Dose Admin Acetylcysteine 6 ml 08/13/18 08:45 08/14/18 07:48 Acetylcysteine 20% PO 08/14/18 20:46 6 ml Q12H [facility] Administration Albuterol/Ipratropium 3 ml 08/12/18 20:00 08/14/18 11:39 Duoneb 3 Mg/0.5 Mg (3 Ml) Ud INH 3 ml RQ4 [facility] Administration Famotidine 20 mg 08/11/18 10:00 08/14/18 10:51 Pepcid IVP 20 mg DAILY [facility] Administration Heparin Sodium (Porcine) 5,000 units 08/13/18 14:00 08/14/18 05:59 Heparin SC 5,000 units Q8 [facility] Administration Dexmedetomidine HCl 200 mcg/ 50 mls @ 4.07 mls/hr 08/12/18 14:30 08/14/18 10:57 Sodium Chloride IV 0.5 mcg/kg/hr TITR PRN 10.16 mls/hr Ag[facility] Administration Protocol 0.2 MCG/KG/HR Piperacillin Sod/Tazobactam 100 mls @ 200 mls/hr 08/14/18 08:00 08/14/18 08:00 Sod 2.25 gm/ Sodium Chloride IVPB 200 mls/hr Q8H [facility] Administration Protocol Insulin Human Regular 0 unit 08/13/18 00:00 08/14/18 12:11 Novolin R SC 2 unit Q6 [facility] Administration Protocol Methylprednisolone 40 mg 08/14/18 10:00 08/14/18 10:51 Solu-Medrol IVP 40 mg DAILY [facility] Administration Multivitamins/Vitamin C 5 ml 08/11/18 10:00 08/14/18 10:54 Multi-Delyn Liquid PO 5 ml DAILY [facility] Administration - Patient Studies Lab Studies: Microbiology Studies 08/11/18 21:35 Urine Culture - Final Urine,Catheterized No Growth (<1,000 CFU/ML) 08/11/18 01:00 S.aureus & Coag-Neg Staph PNA FISH - Final Blood-Venous Blood Culture - Final Group G Streptococcus Gram Stain - Final 08/12/18 20:20 Gram Stain - Final Trachasp Lab Studies 08/14/18 08/14/18 08/14/18 Range/Units 05:47 05:47 05:21 WBC 7.7 (4.8-10.8) K/uL RBC 3.59 L (4.40-5.90) Mil/uL Hgb 9.1 L (12.0-18.0) g/dL Hct 28.2 L (35.0-51.0) % MCV 78.4 L (80.0-94.0) fL MCH 25.4 L (27.0-31.0) pg MCHC 32.4 L (33.0-37.0) g/dL RDW 21.2 H (11.5-14.5) % Plt Count 92 L (130-400) K/uL MPV 9.0 (7.2-11.7) fL Neut % (Auto) 80.2 H (50.0-75.0) % Lymph % (Auto) 12.3 L (20.0-40.0) % [facility] % (Auto) 7.4 (0.0-10.0) % Eos % (Auto) 0.0 (0.0-4.0) % Baso % (Auto) 0.1 (0.0-2.0) % Neut # (Auto) 6.2 (1.8-7.0) K/uL Lymph # (Auto) 0.9 L (1.0-4.3) K/uL [facility] # (Auto) 0.6 (0.0-0.8) K/uL Eos # (Auto) 0.0 (0.0-0.7) K/uL Baso # (Auto) 0.0 (0.0-0.2) K/uL Puncture Site Rb pCO2 22 L (35-45) mm/Hg pO2 107 H (80-100) mm/Hg HCO3 21.1 (21-28) mmol/L ABG pH 7.48 H (7.35-7.45) ABG Total CO2 17.1 L (22-28) mmol/L ABG O2 Saturation 99.6 H (95-98) % ABG Base Excess -5.0 L (-2.0-3.0) mmol/L Rei Test Na ABG Potassium 2.8 L (3.6-5.2) mmol/L A-a O2 Difference 79.0 mm/Hg Respiratory Index 0.7 Sodium 139 141.0 (132-148) mmol/l Chloride 104 112.0 H (98-107) mmol/L Glucose 210 H (75-110) mg/dl Lactate 1.6 (0.7-2.1) mmol/L Vent Mode A/c pc Mechanical Rate 15 FiO2 30.0 % PEEP 5 Potassium 3.5 L (3.6-5.2) mmol/L Carbon Dioxide 20 L (22-30) mmol/L Anion Gap 19 (10-20) BUN 58 H (9-20) mg/dL Creatinine 3.0 H (0.8-1.5) mg/dL Est GFR ( Amer) 26 Est GFR (Non-Af Amer) 22 Random Glucose 244 H (75-110) mg/dL Calcium 7.4 L (8.6-10.4) mg/dl Phosphorus 4.3 (2.5-4.5) mg/dL Magnesium 2.4 H (1.6-2.3) mg/dL Total Bilirubin 0.9 (0.2-1.3) mg/dL AST 105 H D (17-59) U/L ALT 51 (21-72) U/L Alkaline Phosphatase 44 (38-126) U/L Total Protein 6.6 (6.3-8.3) g/dL Albumin 3.1 L (3.5-5.0) g/dL Globulin 3.5 (2.2-3.9) gm/dL Albumin/Globulin Ratio 0.9 L (1.0-2.1) Arterial Blood Potassium 2.8 L (3.6-5.2) mmol/L Ur Opiates (GC/MS) (Negative) 300 Ur Methadone, Qual (Negative) 300 Urine Propoxyphene (Negative) 300 Methaqualone (Negative) 300 Ur Barbiturates, Qual (Negative) 300 Ur Phencyclidine (PCP) (Negative) 25 Ur Amphetamines Screen (Negative) 1000 U Benzodiazepines Qual (Negative) 300 Urine Cocaine (Negative) 300 U Marijuana (THC) Screen (Negative) 50 Drugs of Abuse Note 08/11/18 Range/Units 21:35 WBC (4.8-10.8) K/uL RBC (4.40-5.90) Mil/uL Hgb (12.0-18.0) g/dL Hct (35.0-51.0) % MCV (80.0-94.0) fL MCH (27.0-31.0) pg MCHC (33.0-37.0) g/dL RDW (11.5-14.5) % Plt Count (130-400) K/uL MPV (7.2-11.7) fL Neut % (Auto) (50.0-75.0) % Lymph % (Auto) (20.0-40.0) % [facility] % (Auto) (0.0-10.0) % Eos % (Auto) (0.0-4.0) % Baso % (Auto) (0.0-2.0) % Neut # (Auto) (1.8-7.0) K/uL Lymph # (Auto) (1.0-4.3) K/uL [facility] # (Auto) (0.0-0.8) K/uL Eos # (Auto) (0.0-0.7) K/uL Baso # (Auto) (0.0-0.2) K/uL Puncture Site pCO2 (35-45) mm/Hg pO2 (80-100) mm/Hg HCO3 (21-28) mmol/L ABG pH (7.35-7.45) ABG Total CO2 (22-28) mmol/L ABG O2 Saturation (95-98) % ABG Base Excess (-2.0-3.0) mmol/L Rei Test ABG Potassium (3.6-5.2) mmol/L A-a O2 Difference mm/Hg Respiratory Index Sodium (132-148) mmol/l Chloride (98-107) mmol/L Glucose (75-110) mg/dl Lactate (0.7-2.1) mmol/L Vent Mode Mechanical Rate FiO2 % PEEP Potassium (3.6-5.2) mmol/L Carbon Dioxide (22-30) mmol/L Anion Gap (10-20) BUN (9-20) mg/dL Creatinine (0.8-1.5) mg/dL Est GFR ( Amer) Est GFR (Non-Af Amer) Random Glucose (75-110) mg/dL Calcium (8.6-10.4) mg/dl Phosphorus (2.5-4.5) mg/dL Magnesium (1.6-2.3) mg/dL Total Bilirubin (0.2-1.3) mg/dL AST (17-59) U/L ALT (21-72) U/L Alkaline Phosphatase (38-126) U/L Total Protein (6.3-8.3) g/dL Albumin (3.5-5.0) g/dL Globulin (2.2-3.9) gm/dL Albumin/Globulin Ratio (1.0-2.1) Arterial Blood Potassium (3.6-5.2) mmol/L Ur Opiates (GC/MS) Negative (Negative) 300 Ur Methadone, Qual Negative (Negative) 300 Urine Propoxyphene Negative (Negative) 300 Methaqualone Negative (Negative) 300 Ur Barbiturates, Qual Negative (Negative) 300 Ur Phencyclidine (PCP) Negative (Negative) 25 Ur Amphetamines Screen Negative (Negative) 1000 U Benzodiazepines Qual Negative (Negative) 300 Urine Cocaine Negative (Negative) 300 U Marijuana (THC) Screen Negative (Negative) 50 Drugs of Abuse Note See note Laboratory Results - last 24 hr 08/11/18 08/14/18 08/14/18 21:35 05:21 05:47 WBC 7.7 RBC 3.59 L Hgb 9.1 L Hct 28.2 L MCV 78.4 L MCH 25.4 L MCHC 32.4 L RDW 21.2 H Plt Count 92 L MPV 9.0 Neut % (Auto) 80.2 H Lymph % (Auto) 12.3 L [facility] % (Auto) 7.4 Eos % (Auto) 0.0 Baso % (Auto) 0.1 Neut # (Auto) 6.2 Lymph # (Auto) 0.9 L [facility] # (Auto) 0.6 Eos # (Auto) 0.0 Baso # (Auto) 0.0 Puncture Site Rb pCO2 22 L pO2 107 H HCO3 21.1 ABG pH 7.48 H ABG Total CO2 17.1 L ABG O2 Saturation 99.6 H ABG Base Excess -5.0 L Rei Test Na ABG Potassium 2.8 L A-a O2 Difference 79.0 Respiratory Index 0.7 Sodium 141.0 Chloride 112.0 H Glucose 210 H Lactate 1.6 Vent Mode A/c pc Mechanical Rate 15 FiO2 30.0 PEEP 5 Potassium Carbon Dioxide Anion Gap BUN Creatinine Est GFR ( Amer) Est GFR (Non-Af Amer) Random Glucose Calcium Phosphorus Magnesium Total Bilirubin AST ALT Alkaline Phosphatase Total Protein Albumin Globulin Albumin/Globulin Ratio Arterial Blood Potassium 2.8 L Ur Opiates (GC/MS) Negative Ur Methadone, Qual Negative Urine Propoxyphene Negative Methaqualone Negative Ur Barbiturates, Qual Negative Ur Phencyclidine (PCP) Negative Ur Amphetamines Screen Negative U Benzodiazepines Qual Negative Urine Cocaine Negative U Marijuana (THC) Screen Negative Drugs of Abuse Note See note 08/14/18 05:47 WBC RBC Hgb Hct MCV MCH MCHC RDW Plt Count MPV Neut % (Auto) Lymph % (Auto) [facility] % (Auto) Eos % (Auto) Baso % (Auto) Neut # (Auto) Lymph # (Auto) [facility] # (Auto) Eos # (Auto) Baso # (Auto) Puncture Site pCO2 pO2 HCO3 ABG pH ABG Total CO2 ABG O2 Saturation ABG Base Excess Rei Test ABG Potassium A-a O2 Difference Respiratory Index Sodium 139 Chloride 104 Glucose Lactate Vent Mode Mechanical Rate FiO2 PEEP Potassium 3.5 L Carbon Dioxide 20 L Anion Gap 19 BUN 58 H Creatinine 3.0 H Est GFR ( Amer) 26 Est GFR (Non-Af Amer) 22 Random Glucose 244 H Calcium 7.4 L Phosphorus 4.3 Magnesium 2.4 H Total Bilirubin 0.9 AST 105 H D ALT 51 Alkaline Phosphatase 44 Total Protein 6.6 Albumin 3.1 L Globulin 3.5 Albumin/Globulin Ratio 0.9 L Arterial Blood Potassium Ur Opiates (GC/MS) Ur Methadone, Qual Urine Propoxyphene Methaqualone Ur Barbiturates, Qual Ur Phencyclidine (PCP) Ur Amphetamines Screen U Benzodiazepines Qual Urine Cocaine U Marijuana (THC) Screen Drugs of Abuse Note Radiology Impressions: Radiology Impressions Chest X-Ray 08/12/18 18:59 IMPRESSION: Patchy bilateral opacities, left greater than right. Probable small left pleural effusion. Possible bilateral pneumonia versus CHF/pulmonary edema. ET tube and NG tube noted in grossly appropriate position. Chest X-Ray 08/14/18 06:00 IMPRESSION: Worsening multifocal airspace disease in the lungs. Small pleural effusions. Satisfactory position of support tubes. Fingerstick Blood Sugar Results: 219 Review of Systems - Review of Systems All systems: reviewed and no additional remarkable complaints except Assessment/Plan - Assessment and Plan (Free Text) Assessment: Pulm Hypoxic respiratory failure, COPD -Intubated 08/12, PRVC. FiO2 30% -Solumedrol 40 mg IV daily -Blood cx - Group G strep. Sputum cx pending -Zosyn 2.25 daily for renal dosing Cardio -SVT resolved, NSR on monitor HR 80s -D/w patient possible need for ablation outpatinet Neuro AMS, DTs -Continue to monitor -Precedex -Monitor Endo -Anion gap metablic acidosis -AG 15 ID Sepsis, strep bacteremia -cont zosyn -f/u repeat blood cultures -Monitor vitals Ppx -Heparin SCC Q8 -Precedex Assessment and plan d/w Dr. Jacob Steinberg, PGY-1
--- NOTE | 2018-08-14 20:27 | CP.PCM.PN ---
Subjective - Date & Time of Evaluation Date of Evaluation: 08/14/18 Time of Evaluation: 08:40 - Subjective Subjective: dict Objective - Vital Signs/Intake and Output Vital Signs (last 24 hours): Temp Pulse Resp BP Pulse Ox 97.3 F L 94 H 28 H 140/83 100 08/14/18 16:00 08/14/18 18:00 08/14/18 18:00 08/14/18 17:57 08/14/18 18:00 Intake and Output: 08/14/18 08/15/18 18:59 06:59 Intake Total 982.6 112.6 Output Total 714 0 Balance 268.6 112.6 - Medications Medications: Current Medications Acetylcysteine (Acetylcysteine 20%) 6 ml PO Q12H ASHLEIGH Stop: 08/14/18 20:46 Last Admin: 08/14/18 07:48 Dose: 6 ml Albuterol/Ipratropium (Duoneb 3 Mg/0.5 Mg (3 Ml) Ud) 3 ml INH RQ4 ASHLEIGH Last Admin: 08/14/18 16:25 Dose: 3 ml Famotidine (Pepcid) 20 mg IVP DAILY A[facility] Last Admin: 08/14/18 10:51 Dose: 20 mg Heparin Sodium (Porcine) (Heparin) 5,000 units SC Q8 A[facility]LEIGH Last Admin: 08/14/18 14:55 Dose: 5,000 units Dexmedetomidine HCl 200 mcg/ (Sodium Chloride) 50 mls @ 4.07 mls/hr IV TITR PRN; Protocol PRN Reason: Agitation Last Titration: 08/14/18 19:59 Dose: 0.8 mcg/kg/hr, 16.26 mls/hr Piperacillin Sod/Tazobactam (Sod 2.25 gm/ Sodium Chloride) 100 mls @ 200 mls/hr IVPB Q8H A[facility]LEIGH; Protocol Last Admin: 08/14/18 15:20 Dose: 200 mls/hr Insulin Human Regular (Novolin R) 0 unit SC Q6 ASHLEIGH; Protocol Last Admin: 08/14/18 18:29 Dose: 3 unit Methylprednisolone (Solu-Medrol) 40 mg IVP DAILY A[facility] Last Admin: 08/14/18 10:51 Dose: 40 mg Multivitamins/Vitamin C (Multi-Delyn Liquid) 5 ml PO DAILY A[facility]LEIGH Last Admin: 08/14/18 10:54 Dose: 5 ml - Labs Labs: 08/14/18 05:47 08/14/18 05:47
--- NOTE | 2018-08-14 22:46 | CP.PCM.PN ---
Subjective - Date & Time of Evaluation Date of Evaluation: 08/14/18 Time of Evaluation: 10:15 - Subjective Subjective: Patient seen and evaluated On Ventilator No new cardiac events noted Objective - Vital Signs/Intake and Output Vital Signs (last 24 hours): Temp Pulse Resp BP Pulse Ox 97.5 F L 84 30 H 136/83 99 08/14/18 20:00 08/14/18 20:27 08/14/18 20:27 08/14/18 20:27 08/14/18 20:27 Intake and Output: 08/14/18 08/15/18 18:59 06:59 Intake Total 982.6 162.6 Output Total 714 0 Balance 268.6 162.6 - Medications Medications: Current Medications Albuterol/Ipratropium (Duoneb 3 Mg/0.5 Mg (3 Ml) Ud) 3 ml INH RQ4 A[facility]LEIGH Last Admin: 08/14/18 20:38 Dose: 3 ml Famotidine (Pepcid) 20 mg IVP DAILY A[facility]LE[facility] Last Admin: 08/14/18 10:51 Dose: 20 mg Heparin Sodium (Porcine) (Heparin) 5,000 units SC Q8 A[facility]LEIGH Last Admin: 08/14/18 21:01 Dose: 5,000 units Dexmedetomidine HCl 200 mcg/ (Sodium Chloride) 50 mls @ 4.07 mls/hr IV TITR PRN; Protocol PRN Reason: Agitation Last Admin: 08/14/18 20:43 Dose: 0.8 mcg/kg/hr, 16.26 mls/hr Piperacillin Sod/Tazobactam (Sod 2.25 gm/ Sodium Chloride) 100 mls @ 200 mls/hr IVPB Q8H [facility]LE[facility]; Protocol Last Admin: 08/14/18 15:20 Dose: 200 mls/hr Insulin Human Regular (Novolin R) 0 unit SC Q6 ASHLEIGH; Protocol Last Admin: 08/14/18 18:29 Dose: 3 unit Methylprednisolone (Solu-Medrol) 40 mg IVP DAILY A[facility]LE[facility] Last Admin: 08/14/18 10:51 Dose: 40 mg Multivitamins/Vitamin C (Multi-Delyn Liquid) 5 ml PO DAILY A[facility]LEIGH Last Admin: 08/14/18 10:54 Dose: 5 ml - Labs Labs: 08/14/18 05:47 08/14/18 05:47
[2018-08-15] MEDS: (Novolin R) Insulin Human Regular 100 units/ml vial SC SCH ×4 (00:04→18:06)
[2018-08-15] MEDS: Piperacillin/Tazobact 2.25 GM in Sodium Chloride 100 ML IVPB SCH ×4 (00:04→23:34)
[2018-08-15] MEDS: Albuterol-Ipratrop 3 mg / 0.5 (3 ml) UD INH SCH ×6 (00:17→20:01)
[2018-08-15] MEDS: Dexmedetomidine Hydrochloride 200 MCG in Sodium Chloride 0.9% 48 ML IV PRN ×6 (00:23→20:41)
--- NOTE | 2018-08-15 01:55 | PN ---
DATE: 08/14/2018 SUBJECTIVE: The patient is on mechanical ventilator. He is afebrile. He is not in distress. He is cooperative. He is calm. PHYSICAL EXAMINATION: VITAL SIGNS: Blood pressure 142/87, pulse 78, respiratory rate 20, and temperature 98. LUNGS: Bilateral rales all over the lung field. CENTRAL NERVOUS SYSTEM: S1 and S2, plus S3 positive. ABDOMEN: Soft and nontender. Bowel sounds are positive. ASSESSMENT: 1. Pneumonia. 2. Congestive heart failure. 3. Alcohol withdrawal, delirium tremens, status post alcohol intoxication. PLAN: Medical management. Monitor the patient. Chino Cheung MD
[2018-08-15 04:48] LABS: BASO % 0.2 % (0.0-2.0); HEMOGLOBIN 9.9 g/dL (12.0-18.0); LYMPH # 0.4 K/uL (1.0-4.3); LYMPH % 6.6 % (20.0-40.0); MEAN CELL VOLUME 78.8 fL (80.0-94.0); MEAN CORPUSCULAR HEMOGLOBIN 24.6 pg (27.0-31.0); MEAN CORPUSCULAR HGB CONC 31.2 g/dL (33.0-37.0); MEAN PLATELET VOLUME 9.5 fL (7.2-11.7); MONO # 1.1 K/uL (0.0-0.8); MONO % 16.4 % (0.0-10.0); NEUT % 76.8 % (50.0-75.0); NRBC % 0.2 % (0.0-2.0); PLATELET COUNT 88 K/uL (130-400); RBC 4.03 Mil/uL (4.40-5.90); RED CELL DISTRIBUTION WIDTH 21.1 % (11.5-14.5); WHITE BLOOD COUNT 6.5 K/uL (4.8-10.8)
[2018-08-15 05:17] LABS: ALB/GLOB RATIO 0.9 (1.0-2.1); ALBUMIN 3.1 g/dL (3.5-5.0)
[2018-08-15 05:36] LABS: CALCIUM 8.2 mg/dl (8.6-10.4)
[2018-08-15 05:47] LABS: ARTERIAL BLOOD GAS HCO3 23.5 mmol/L (21-28); ARTERIAL BLOOD GAS HEMOGLOBIN 9.4 g/dL (11.7-17.4); ARTERIAL BLOOD GAS O2 SAT 99.4 % (95-98); ARTERIAL BLOOD GAS PCO2 31 mm/Hg (35-45); ARTERIAL BLOOD GAS PH 7.45 (7.35-7.45); ARTERIAL BLOOD GAS PO2 106 mm/Hg (80-100); ARTERIAL BLOOD GAS TCO2 22.5 mmol/L (22-28)
[2018-08-15 08:12] LABS: BANDS 4 % (0-2); LYMPHOCYTE 5 % (20-40); MONOCYTE 13 % (0-10); NEUTROPHIL 78 % (50-75); TOTAL CELLS COUNTED 100
[2018-08-15 08:13] LABS: ANISOCYTOSIS MODERATE; HYPOCHROMIC SLIGHT; PLATELET ESTIMATE DECREASED (NORMAL)
[2018-08-15] MEDS: MethylPREDNISolone 40 mg Vial IVP SCH (09:08)
[2018-08-15] MEDS: Multiple Vitamins Oral Solution PO SCH (09:09)
--- NOTE | 2018-08-15 10:39 | CP.PCM.CON ---
<Jose Guadalupe Eduardo - Last Filed: 08/15/18 16:20> History of Present Illness - History of Present Illness History of Present Illness: Nephro Consult Note for Dr. 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 Later became hypotensive and further altered, requiring intubation and ICU placement for close monitoring and care. Nephro was consulted for RAMIREZ/Acute renal failure. HPI limited to prior charting and ROS unobtainable as patient intubated and non- verbal, minimally responsive (currently on Precedex drip). Of note, Cr on arrival was 0.9, but rapidly increased to 1.5, then 2.4 within approx 48 hours; plateaued at 2.8-3 for last 4 days. Continues to have good urine output after gay placed (by Urology due to strictures), approx 1.5L in last 24hr period. No bloody urine noted. After admission, patient noted to be volume depleted, given 3L NS bolus, then developed worsening pulmonary venous congestion +/- pleural effusions on CXR, so underwent diuresis with IV Lasix after. Not currently on active diuresis or standing IVF. Remains intubated, failed prior CPAP trial, on Precedex for agitation/EtOH withdrawal. No currently on any nephrotoxic agents. No prior history of similar renal insult noted in prior ch arting or labs. From prior charting: PMH: as above PSH: None Soc Hx: Extensive hx of ETOH abuse, denied tobacco/illicits in past, recently homeless Fam Hx: unknown PMD: Sonya Dove Review of Systems - Review of Systems Systems not reviewed;Unavailable: Altered Mental Status, Intubated Past Patient History - Infectious Disease Hx of Infectious Diseases: None - Tetanus Immunizations Tetanus Immunization: Unknown - Past Medical History & Family History Past Medical History?: Yes - Past Social History Smoking Status: Never Smoked - CARDIAC Hx Hypertension: Yes - PULMONARY Hx Pneumonia: Yes - NEUROLOGICAL Hx Neurological Disorder: No - HEENT Hx HEENT Problems: No - RENAL Hx Chronic Kidney Disease: No - ENDOCRINE/METABOLIC Hx Endocrine Disorders: No - HEMATOLOGICAL/ONCOLOGICAL Hx Anemia: Yes - INTEGUMENTARY Hx Dermatological Problems: No - MUSCULOSKELETAL/RHEUMATOLOGICAL Hx Musculoskeletal Disorders: Yes Hx Falls: Yes - GASTROINTESTINAL Hx Gastrointestinal Disorders: Yes Hx Liver Failure: Yes - GENITOURINARY/GYNECOLOGICAL Hx Genitourinary Disorders: No - PSYCHIATRIC Hx Substance Use: No - SURGICAL HISTORY Hx Surgeries: No - ANESTHESIA Hx Anesthesia: No Hx Anesthesia Reactions: No Meds Allergies/Adverse Reactions: Allergies Allergy/AdvReac Type Severity Reaction Status Date / Time No Known Allergies Allergy Verified 08/10/18 22:44 - Medications Medications: Current Medications Albuterol/Ipratropium (Duoneb 3 Mg/0.5 Mg (3 Ml) Ud) 3 ml INH RQ4 [facility] Last Admin: 08/15/18 03:08 Dose: 3 ml Famotidine (Pepcid) 20 mg IVP DAILY [facility] Last Admin: 08/15/18 09:08 Dose: 20 mg Heparin Sodium (Porcine) (Heparin) 5,000 units SC Q8 [facility] Last Admin: 08/15/18 05:36 Dose: 5,000 units Dexmedetomidine HCl 200 mcg/ (Sodium Chloride) 50 mls @ 4.07 mls/hr IV TITR PRN; Protocol PRN Reason: Agitation Last Admin: 08/15/18 05:15 Dose: 1.2 mcg/kg/hr, 24.39 mls/hr Piperacillin Sod/Tazobactam (Sod 2.25 gm/ Sodium Chloride) 100 mls @ 200 mls/hr IVPB Q8H [facility]; Protocol Last Admin: 08/15/18 07:01 Dose: 200 mls/hr Insulin Human Regular (Novolin R) 0 unit SC Q6 [facility]; Protocol Last Admin: 08/15/18 05:36 Dose: 2 unit Methylprednisolone (Solu-Medrol) 40 mg IVP DAILY [facility] Last Admin: 08/15/18 09:08 Dose: 40 mg Multivitamins/Vitamin C (Multi-Delyn Liquid) 5 ml PO DAILY [facility] Last Admin: 08/15/18 09:09 Dose: 5 ml Physical Exam - Constitutional Appears: Chronically Ill Additional comments: intubated and sedated with precedex, not acutely distressed/agitated - Head Exam Head Exam: ATRAUMATIC, NORMOCEPHALIC - Eye Exam Eye Exam: Normal appearance. absent: Conjunctival injection, Scleral icterus Pupil Exam: absent: Irregular, Unequal - ENT Exam ENT Exam: Mucous Membranes Moist Additional comments: ETT in place, secured at lips by securement device NGT in place, secured with tegaderm - Neck Exam Neck exam: Negative for: Thyromegaly - Respiratory Exam Additional comments: intubated and ventilated, on 30% FiO2, overbreathing the ventilator, no accessory muscle or abdominal breathing appreciated - Cardiovascular Exam Cardiovascular Exam: REGULAR RHYTHM, RRR. absent: Bradycardia, Tachycardia, Diastolic murmur, Irregular Rhythm, JVD, +S4 - GI/Abdominal Exam GI & Abdominal Exam: Diminished Bowel Sounds. absent: Distended, Firm, Hyperactive Bowel Sounds, Hypoactive Bowel Sounds, Rigid - Extremities Exam Extremities exam: Positive for: pedal edema (trace pedal edema in bilateral ankles), pedal pulses present Additional comments: wearing bilateral hand mitts - Neurological Exam Additional comments: sedated on precedex, arousable but not following commands, non-verbal due to i ntubation spontaneous movement of all extremities after arousal - Psychiatric Exam Additional comments: sedated on precedex, mildly agitated when aroused but rapidly returns to somnolence - Skin Skin Exam: Dry, Intact, Normal Color, Warm Results - Vital Signs Recent Vital Signs: Last Vital Signs Temp 98 F 08/15/18 08:00 Pulse 67 08/15/18 08:27 Resp 18 08/15/18 08:27 BP 154/94 H 08/15/18 08:00 Pulse Ox 100 08/15/18 08:27 - Labs Result Diagrams: 08/15/18 04:42 08/15/18 04:42 Labs: Laboratory Results - last 24 hr 08/15/18 08/15/18 08/15/18 04:42 04:42 05:28 WBC 6.5 RBC 4.03 L Hgb 9.9 L Hct 31.7 L MCV 78.8 L MCH 24.6 L MCHC 31.2 L RDW 21.1 H Plt Count 88 L MPV 9.5 Neut % (Auto) 76.8 H Lymph % (Auto) 6.6 L [place] % (Auto) 16.4 H Eos % (Auto) 0.0 Baso % (Auto) 0.2 Neut # (Auto) 5.0 Lymph # (Auto) 0.4 L [place] # (Auto) 1.1 H Eos # (Auto) 0.0 Baso # (Auto) 0.0 Neutrophils % (Manual) 78 H Band Neutrophils % 4 H Lymphocytes % (Manual) 5 L Monocytes % (Manual) 13 H Platelet Estimate Decreased L Hypochromasia (manual) Slight Anisocytosis (manual) Moderate Puncture Site Rb pCO2 31 L pO2 106 H HCO3 23.5 ABG pH 7.45 ABG Total CO2 22.5 ABG O2 Saturation 99.4 H ABG Base Excess -1.9 ABG Hemoglobin 9.4 L ABG Carboxyhemoglobin 1.9 H POC ABG HHb (Measured) 0.6 ABG Methemoglobin 1.0 Rei Test Na A-a O2 Difference 69.0 Respiratory Index 0.7 Hgb O2 Saturation 96.4 Vent Mode Prvc Mechanical Rate 15 FiO2 30.0 Tidal Volume 500 PEEP 5 Sodium 146 Potassium 3.3 L Chloride 110 H Carbon Dioxide 21 L Anion Gap 18 BUN 65 H Creatinine 2.8 H Est GFR ( Amer) 28 Est GFR (Non-Af Amer) 23 Random Glucose 209 H Calcium 8.2 L Phosphorus 3.1 Magnesium 2.6 H Total Bilirubin 0.8 AST 92 H ALT 52 Alkaline Phosphatase 120 Total Protein 6.5 Albumin 3.1 L Globulin 3.4 Albumin/Globulin Ratio 0.9 L Assessment & Plan - Assessment and Plan (Free Text) Assessment: This is a 57 yo M with PMH of ETOH abuse, Liver Cirrhosis, 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 Later became hypotensive and further altered, requiring intubation and ICU placement for close monitoring and care. Nephro was consulted for RAMIREZ/Acute renal failure. Plan: 1) Acute renal failure 2) Chronic EtOH abuse, undergoing withdrawal 3) Cirrhosis, likely 2/2 EtOH 4) Hypotension - resolved 5) Sepsis (source unclear) on empiric abx 6) Hypoxic respiratory failure requiring intubation -Acute renal failure, Cr maxed at 3, 2.8 today Cr 2.7-3 x4 days, appears to have plateaued Ddx: ATN vs 2/2 substances (high osmolar gap without anion gap) vs sepsis vs hepatorenal Renal/bladder US obtained, negative for hydronephrosis, negative for obstructive pathology May be component (contributory, not causative) due to 3x Vanco 1g q12, trough level 24hr after 19.7, so likely too elevated after 3rd dose Repeat Urine/serum osms, Urine Na/Cr, 24hr Protein, Spot protein, Urine Micro scopy ordered, f/u Continue to monitor daily Cr Maintain gay given hx urethral strictures -CXR appears fluid overloaded, but paO2 on 30% FiO2 wnl, no active need for diuresis, reassess on tomorrow AM CXR -Continue abx as per ID, currently on Zosyn -Avoid nephrotoxic agents as possible Seen, reviewed, and discussed with attending, Dr. Lucas. <Tony Lucas - Last Filed: 08/16/18 06:40> Meds - Medications Medications: Current Medications Albuterol/Ipratropium (Duoneb 3 Mg/0.5 Mg (3 Ml) Ud) 3 ml INH RQ4 [facility] Last Admin: 08/16/18 04:57 Dose: 3 ml Famotidine (Pepcid) 20 mg IVP DAILY [facility] Last Admin: 08/15/18 09:08 Dose: 20 mg Heparin Sodium (Porcine) (Heparin) 5,000 units SC Q8 [facility] Last Admin: 08/16/18 05:30 Dose: 5,000 units Piperacillin Sod/Tazobactam (Sod 2.25 gm/ Sodium Chloride) 100 mls @ 200 mls/hr IVPB Q8H [facility]; Protocol Last Admin: 08/15/18 23:34 Dose: 200 mls/hr Dexmedetomidine HCl 400 mcg/ (Sodium Chloride) 100 mls @ 28.67 mls/hr IV TITR PRN; Protocol Last Titration: 08/16/18 05:00 Dose: 0.5 mcg/kg/hr, 10.24 mls/hr Insulin Human Regular (Novolin R) 0 unit SC Q6 [facility]; Protocol Last Admin: 08/16/18 05:30 Dose: Not Given Methylprednisolone (Solu-Medrol) 40 mg IVP DAILY [facility] Last Admin: 08/15/18 09:08 Dose: 40 mg Multivitamins/Vitamin C (Multi-Delyn Liquid) 5 ml PO DAILY [facility] Last Admin: 08/15/18 09:09 Dose: 5 ml Results - Vital Signs Recent Vital Signs: Last Vital Signs Temp 98.5 F 08/16/18 04:00 Pulse 55 L 08/16/18 06:00 Resp 19 08/16/18 06:00 BP 148/82 08/16/18 05:55 Pulse Ox 100 08/16/18 06:00 - Labs Result Diagrams: 08/16/18 05:41 08/16/18 05:41 Labs: Laboratory Results - last 24 hr 08/13/18 08/13/18 08/13/18 00:36 05:41 11:18 WBC RBC Hgb Hct MCV MCH MCHC RDW Plt Count MPV Neut % (Auto) Lymph % (Auto) [place] % (Auto) Eos % (Auto) Baso % (Auto) Neut # (Auto) Lymph # (Auto) [place] # (Auto) Eos # (Auto) Baso # (Auto) Neutrophils % (Manual) Band Neutrophils % Lymphocytes % (Manual) Monocytes % (Manual) Platelet Estimate Hypochromasia (manual) Anisocytosis (manual) Puncture Site pCO2 pO2 HCO3 ABG pH ABG Total CO2 ABG O2 Saturation ABG Base Excess ABG Hemoglobin ABG Carboxyhemoglobin POC ABG HHb (Measured) ABG Methemoglobin Rei Test A-a O2 Difference Respiratory Index Hgb O2 Saturation Vent Mode Mechanical Rate FiO2 Tidal Volume PEEP Sodium Potassium Chloride Carbon Dioxide Anion Gap BUN Creatinine Est GFR ( Amer) Est GFR (Non-Af Amer) POC Glucose (mg/dL) 196 H 245 H 231 H Random Glucose Serum Osmolality Calcium Phosphorus Magnesium Total Bilirubin AST ALT Alkaline Phosphatase Total Protein Albumin Globulin Albumin/Globulin Ratio Urine Color Urine Clarity Urine pH Ur Specific [place] Urine Protein Urine Glucose (UA) Urine Ketones Urine Blood Urine Nitrate Urine Bilirubin Urine Urobilinogen Ur Leukocyte Esterase Urine WBC (Auto) Urine RBC (Auto) Ur Squamous Epith Cells U Random Total Protein 08/13/18 08/14/18 08/14/18 18:26 00:14 05:55 WBC RBC Hgb Hct MCV MCH MCHC RDW Plt Count MPV Neut % (Auto) Lymph % (Auto) [place] % (Auto) Eos % (Auto) Baso % (Auto) Neut # (Auto) Lymph # (Auto) [place] # (Auto) Eos # (Auto) Baso # (Auto) Neutrophils % (Manual) Band Neutrophils % Lymphocytes % (Manual) Monocytes % (Manual) Platelet Estimate Hypochromasia (manual) Anisocytosis (manual) Puncture Site pCO2 pO2 HCO3 ABG pH ABG Total CO2 ABG O2 Saturation ABG Base Excess ABG Hemoglobin ABG Carboxyhemoglobin POC ABG HHb (Measured) ABG Methemoglobin Rei Test A-a O2 Difference Respiratory Index Hgb O2 Saturation Vent Mode Mechanical Rate FiO2 Tidal Volume PEEP Sodium Potassium Chloride Carbon Dioxide Anion Gap BUN Creatinine Est GFR ( Amer) Est GFR (Non-Af Amer) POC Glucose (mg/dL) 194 H 216 H 266 H Random Glucose Serum Osmolality Calcium Phosphorus Magnesium Total Bilirubin AST ALT Alkaline Phosphatase Total Protein Albumin Globulin Albumin/Globulin Ratio Urine Color Urine Clarity Urine pH Ur Specific [place] Urine Protein Urine Glucose (UA) Urine Ketones Urine Blood Urine Nitrate Urine Bilirubin Urine Urobilinogen Ur Leukocyte Esterase Urine WBC (Auto) Urine RBC (Auto) Ur Squamous Epith Cells U Random Total Protein 08/14/18 08/14/18 08/14/18 11:26 18:17 23:30 WBC RBC Hgb Hct MCV MCH MCHC RDW Plt Count MPV Neut % (Auto) Lymph % (Auto) [place] % (Auto) Eos % (Auto) Baso % (Auto) Neut # (Auto) Lymph # (Auto) [place] # (Auto) Eos # (Auto) Baso # (Auto) Neutrophils % (Manual) Band Neutrophils % Lymphocytes % (Manual) Monocytes % (Manual) Platelet Estimate Hypochromasia (manual) Anisocytosis (manual) Puncture Site pCO2 pO2 HCO3 ABG pH ABG Total CO2 ABG O2 Saturation ABG Base Excess ABG Hemoglobin ABG Carboxyhemoglobin POC ABG HHb (Measured) ABG Methemoglobin Rei Test A-a O2 Difference Respiratory Index Hgb O2 Saturation Vent Mode Mechanical Rate FiO2 Tidal Volume PEEP Sodium Potassium Chloride Carbon Dioxide Anion Gap BUN Creatinine Est GFR ( Amer) Est GFR (Non-Af Amer) POC Glucose (mg/dL) 219 H 271 H 237 H Random Glucose Serum Osmolality Calcium Phosphorus Magnesium Total Bilirubin AST ALT Alkaline Phosphatase Total Protein Albumin Globulin Albumin/Globulin Ratio Urine Color Urine Clarity Urine pH Ur Specific [place] Urine Protein Urine Glucose (UA) Urine Ketones Urine Blood Urine Nitrate Urine Bilirubin Urine Urobilinogen Ur Leukocyte Esterase Urine WBC (Auto) Urine RBC (Auto) Ur Squamous Epith Cells U Random Total Protein 08/15/18 08/15/18 08/15/18 04:42 05:19 11:17 WBC RBC Hgb Hct MCV MCH MCHC RDW Plt Count MPV Neut % (Auto) Lymph % (Auto) [place] % (Auto) Eos % (Auto) Baso % (Auto) Neut # (Auto) Lymph # (Auto) [place] # (Auto) Eos # (Auto) Baso # (Auto) Neutrophils % (Manual) 78 H Band Neutrophils % 4 H Lymphocytes % (Manual) 5 L Monocytes % (Manual) 13 H Platelet Estimate Decreased L Hypochromasia (manual) Slight Anisocytosis (manual) Moderate Puncture Site pCO2 pO2 HCO3 ABG pH ABG Total CO2 ABG O2 Saturation ABG Base Excess ABG Hemoglobin ABG Carboxyhemoglobin POC ABG HHb (Measured) ABG Methemoglobin Rei Test A-a O2 Difference Respiratory Index Hgb O2 Saturation Vent Mode Mechanical Rate FiO2 Tidal Volume PEEP Sodium Potassium Chloride Carbon Dioxide Anion Gap BUN Creatinine Est GFR ( Amer) Est GFR (Non-Af Amer) POC Glucose (mg/dL) 198 H 191 H Random Glucose Serum Osmolality Calcium Phosphorus Magnesium Total Bilirubin AST ALT Alkaline Phosphatase Total Protein Albumin Globulin Albumin/Globulin Ratio Urine Color Urine Clarity Urine pH Ur Specific [place] Urine Protein Urine Glucose (UA) Urine Ketones Urine Blood Urine Nitrate Urine Bilirubin Urine Urobilinogen Ur Leukocyte Esterase Urine WBC (Auto) Urine RBC (Auto) Ur Squamous Epith Cells U Random Total Protein 08/15/18 08/15/18 08/15/18 13:19 13:28 13:53 WBC RBC Hgb Hct MCV MCH MCHC RDW Plt Count MPV Neut % (Auto) Lymph % (Auto) [place] % (Auto) Eos % (Auto) Baso % (Auto) Neut # (Auto) Lymph # (Auto) [place] # (Auto) Eos # (Auto) Baso # (Auto) Neutrophils % (Manual) Band Neutrophils % Lymphocytes % (Manual) Monocytes % (Manual) Platelet Estimate Hypochromasia (manual) Anisocytosis (manual) Puncture Site pCO2 pO2 HCO3 ABG pH ABG Total CO2 ABG O2 Saturation ABG Base Excess ABG Hemoglobin ABG Carboxyhemoglobin POC ABG HHb (Measured) ABG Methemoglobin Rei Test A-a O2 Difference Respiratory Index Hgb O2 Saturation Vent Mode Mechanical Rate FiO2 Tidal Volume PEEP Sodium Potassium Chloride Carbon Dioxide Anion Gap BUN Creatinine Est GFR ( Amer) Est GFR (Non-Af Amer) POC Glucose (mg/dL) Random Glucose Serum Osmolality 334 H Calcium Phosphorus Magnesium Total Bilirubin AST ALT Alkaline Phosphatase Total Protein Albumin Globulin Albumin/Globulin Ratio Urine Color Yellow Urine Clarity Clear Urine pH 6.0 Ur Specific [place] 1.016 Urine Protein Negative Urine Glucose (UA) Normal Urine Ketones Negative Urine Blood 2+ H Urine Nitrate Negative Urine Bilirubin Negative Urine Urobilinogen Normal Ur Leukocyte Esterase Neg Urine WBC (Auto) 4 Urine RBC (Auto) 19 H Ur Squamous Epith Cells < 1 U Random Total Protein 26.0 H 08/15/18 08/16/18 08/16/18 17:50 00:16 05:00 WBC RBC Hgb Hct MCV MCH MCHC RDW Plt Count MPV Neut % (Auto) Lymph % (Auto) [place] % (Auto) Eos % (Auto) Baso % (Auto) Neut # (Auto) Lymph # (Auto) [place] # (Auto) Eos # (Auto) Baso # (Auto) Neutrophils % (Manual) Band Neutrophils % Lymphocytes % (Manual) Monocytes % (Manual) Platelet Estimate Hypochromasia (manual) Anisocytosis (manual) Puncture Site Rb pCO2 31 L pO2 99 HCO3 24.5 ABG pH 7.47 H ABG Total CO2 23.6 ABG O2 Saturation 99.5 H ABG Base Excess -0.6 ABG Hemoglobin 9.2 L ABG Carboxyhemoglobin 2.1 H POC ABG HHb (Measured) 0.5 ABG Methemoglobin 1.2 Rei Test Na A-a O2 Difference 76.0 Respiratory Index 0.8 Hgb O2 Saturation 96.2 Vent Mode Prvc Mechanical Rate 15 FiO2 30.0 Tidal Volume 500 PEEP 5 Sodium Potassium Chloride Carbon Dioxide Anion Gap BUN Creatinine Est GFR ( Amer) Est GFR (Non-Af Amer) POC Glucose (mg/dL) 205 H 146 H Random Glucose Serum Osmolality Calcium Phosphorus Magnesium Total Bilirubin AST ALT Alkaline Phosphatase Total Protein Albumin Globulin Albumin/Globulin Ratio Urine Color Urine Clarity Urine pH Ur Specific [place] Urine Protein Urine Glucose (UA) Urine Ketones Urine Blood Urine Nitrate Urine Bilirubin Urine Urobilinogen Ur Leukocyte Esterase Urine WBC (Auto) Urine RBC (Auto) Ur Squamous Epith Cells U Random Total Protein 08/16/18 08/16/18 08/16/18 05:27 05:41 05:41 WBC 7.4 RBC 3.66 L Hgb 9.1 L Hct 28.8 L MCV 78.6 L MCH 24.8 L MCHC 31.6 L RDW 21.1 H Plt Count 90 L MPV 9.6 Neut % (Auto) 60.6 Lymph % (Auto) 11.9 L [place] % (Auto) 27.4 H Eos % (Auto) 0.0 Baso % (Auto) 0.1 Neut # (Auto) 4.5 Lymph # (Auto) 0.9 L [place] # (Auto) 2.0 H Eos # (Auto) 0.0 Baso # (Auto) 0.0 Neutrophils % (Manual) Band Neutrophils % Lymphocytes % (Manual) Monocytes % (Manual) Platelet Estimate Hypochromasia (manual) Anisocytosis (manual) Puncture Site pCO2 pO2 HCO3 ABG pH ABG Total CO2 ABG O2 Saturation ABG Base Excess ABG Hemoglobin ABG Carboxyhemoglobin POC ABG HHb (Measured) ABG Methemoglobin Rei Test A-a O2 Difference Respiratory Index Hgb O2 Saturation Vent Mode Mechanical Rate FiO2 Tidal Volume PEEP Sodium 149 H Potassium 3.6 Chloride 117 H Carbon Dioxide 21 L Anion Gap 15 BUN 72 H Creatinine 2.4 H Est GFR ( Amer) 34 Est GFR (Non-Af Amer) 28 POC Glucose (mg/dL) 171 H Random Glucose 160 H D Serum Osmolality Calcium 8.1 L Phosphorus 3.2 Magnesium 2.5 H Total Bilirubin 1.0 AST 69 H D ALT 52 Alkaline Phosphatase 92 Total Protein 6.4 Albumin 2.8 L Globulin 3.5 Albumin/Globulin Ratio 0.8 L Urine Color Urine Clarity Urine pH Ur Specific [place] Urine Protein Urine Glucose (UA) Urine Ketones Urine Blood Urine Nitrate Urine Bilirubin Urine Urobilinogen Ur Leukocyte Esterase Urine WBC (Auto) Urine RBC (Auto) Ur Squamous Epith Cells U Random Total Protein Attending/Attestation - Attestation I have personally seen and examined this patient.: Yes I have fully participated in the care of the patient.: Yes I have reviewed all pertinent clinical information: Yes Notes (Text): Patient seen and examined; I agree with the resident's note as above with the following additions/edits: 57 yo M w/ PMH of ETOH abuse, Liver Cirrhosis, Chronic Subdural Hematoma (Feb), urethral strictures, anemia, thrombocytopenia, and HTN, admitted with acute hypoxemic resp failure, PNA, hypotension, and acute renal failure for which nephrology is being consulted; Review of records shows renal function normal on presentation but with increase in serum creatinine several hours later indicating that renal insult had already ensued prior to presentation; ATN most likely in the setting of hypotension/septic shock; high vanco level subsequently may have been contributory in extending ATN; otherwise, non-oliguric renal failure; relatively stable lytes; low FIO2 requirement despite PNA on CXR; Of note, patient did have osmolal gap on presentation (gap of 28) but without concomitant in anion gap suggesting he may have ingested some toxic substance (isopropyl alcohol?); lactic acidosis on presentation resolved, currently with mildly increased anion gap metabolic acidosis likely from renal failure; Serum creatinine currently at plateau, should expect renal recovery soon; -Avoid nephrotoxic agents; -Monitor for polyuric phase of recovery; Thank you for this referral, we will continue to follow closely.
--- NOTE | 2018-08-15 11:19 | RAD ---
Date of service: 08/15/2018 HISTORY: Intubated COMPARISON: 08/14/2018 TECHNIQUE: 1 view obtained. FINDINGS: LUNGS: The bilateral patchy pulmonary infiltrate diffuse in the distribution are hree noted there is interval increased low-density homogeneous coalescence at the right lung base and in the left upper lobe and probably also in the right upper lobe. As before the left hemidiaphragm now the right hemidiaphragm are obscured. A left pleural effusion is likely similar here some CT passive compressive atelectasis and/or concomitant infiltrate are inferred. Interval increase right pleural effusion with probable minimal concomitant right basal compressive atelectasis (and/or concomitant infiltrate) are inferred. The interval homogeneous low-density coalescent airspace opacities are also compatible with superimposed areas of pulmonary edema bilateral patchy infiltrates. The endotracheal tube approximately 2.5 cm cephalad to the sterling. PLEURA: Bilateral pleural effusions as above. Than the right has increased. Pneumothorax seen. CARDIOVASCULAR: No aortic atherosclerotic calcification present. Cardiomegaly-similar. Pulmonary venous congestion interval further increased OSSEOUS STRUCTURES: No significant abnormalities. VISUALIZED UPPER ABDOMEN: Nasogastric tube tip beyond the inferior edge of this image. At least courses along the gastric cardia OTHER FINDINGS: None. IMPRESSION: Worsening bilateral airspace infiltrates. Concomitant worsening pulmonary venous congestion-as detailed above. Similar small left pleural effusion. Interval increase right pleural effusion. Additional findings as above. Endotracheal tube and nasogastric tube courses appear satisfactory.
--- NOTE | 2018-08-15 13:20 | CP.PCM.PN ---
Subjective - Date & Time of Evaluation Date of Evaluation: 08/15/18 Time of Evaluation: 09:00 - Subjective Subjective: intubated sfebrile 'NAD Objective - Vital Signs/Intake and Output Vital Signs (last 24 hours): Temp Pulse Resp BP Pulse Ox 97 F L 64 19 150/91 H 100 08/15/18 12:00 08/15/18 13:00 08/15/18 13:00 08/15/18 13:00 08/15/18 13:00 Intake and Output: 08/15/18 08/15/18 06:59 18:59 Intake Total 895.7 503.6 Output Total 900 Balance -4.3 503.6 - Medications Medications: Current Medications Albuterol/Ipratropium (Duoneb 3 Mg/0.5 Mg (3 Ml) Ud) 3 ml INH RQ4 ASHLEIGH Last Admin: 08/15/18 03:08 Dose: 3 ml Famotidine (Pepcid) 20 mg IVP DAILY ASHLEIGH Last Admin: 08/15/18 09:08 Dose: 20 mg Heparin Sodium (Porcine) (Heparin) 5,000 units SC Q8 ASHLEIGH Last Admin: 08/15/18 05:36 Dose: 5,000 units Dexmedetomidine HCl 200 mcg/ (Sodium Chloride) 50 mls @ 4.07 mls/hr IV TITR PRN ; Protocol PRN Reason: Agitation Last Titration: 08/15/18 12:00 Dose: 0.73 mcg/kg/hr, 15 mls/hr Piperacillin Sod/Tazobactam (Sod 2.25 gm/ Sodium Chloride) 100 mls @ 200 mls/hr IVPB Q8H ASHLEIGH; Protocol Last Admin: 08/15/18 07:01 Dose: 200 mls/hr Insulin Human Regular (Novolin R) 0 unit SC Q6 ASHLEIGH; Protocol Last Admin: 08/15/18 05:36 Dose: 2 unit Methylprednisolone (Solu-Medrol) 40 mg IVP DAILY ASHLEIGH Last Admin: 08/15/18 09:08 Dose: 40 mg Multivitamins/Vitamin C (Multi-Delyn Liquid) 5 ml PO DAILY ASHLEIGH Last Admin: 08/15/18 09:09 Dose: 5 ml - Labs Labs: 08/15/18 04:42 08/15/18 04:42 - Constitutional Appears: Non-toxic, Chronically Ill - Head Exam Head Exam: NORMOCEPHALIC - Eye Exam Eye Exam: absent: Scleral icterus Pupil Exam: NORMAL ACCOMODATION - ENT Exam ENT Exam: Mucous Membranes Dry, Normal External Ear Exam - Neck Exam Neck Exam: absent: Lymphadenopathy - Respiratory Exam Respiratory Exam: Decreased Breath Sounds, Rhonchi - Cardiovascular Exam Cardiovascular Exam: REGULAR RHYTHM, +S1, +S2 - GI/Abdominal Exam GI & Abdominal Exam: Distended, Soft - Rectal Exam Rectal Exam: Deferred - Exam Exam: NORMAL INSPECTION - Extremities Exam Extremities Exam: absent: Pedal Edema - Back Exam Back Exam: absent: CVA tenderness (L), CVA tenderness (R) - Neurological Exam Neurological Exam: Altered - Psychiatric Exam Psychiatric exam: Depressed - Skin Skin Exam: Dry Assessment and Plan (1) Alcohol abuse with intoxication Status: Acute (2) Cirrhosis Status: Acute (3) Hydrocele of testis Status: Acute (4) Pneumonia Status: Acute (5) Sepsis Status: Acute (6) Subdural hemorrhage Status: Acute (7) Alcoholic cirrhosis Status: Chronic - Assessment and Plan (Free Text) Assessment: cont IV antibiotics for sepsis/ bacteremia
[2018-08-15 13:48] LABS: SQUAMOUS EPITHIAL < 1 /hpf (0-5); URINE BILIRUBIN NEGATIVE (NEGATIVE); URINE BLOOD 2+ (NEGATIVE); URINE CLARITY Clear (Clear); URINE COLOR Yellow (YELLOW); URINE GLUCOSE (UA) NORMAL (Normal); URINE LEUKOCYTE ESTERASE NEG Leu/uL (Negative); URINE PROTEIN NEGATIVE (NEGATIVE); URINE UROBILINOGEN NORMAL mg/dL (0.2-1.0)
--- NOTE | 2018-08-15 14:14 | CP.CCUPN ---
<Charbel Steinberg - Last Filed: 08/15/18 14:15> CCU Subjective - Physician Review Subjective (Free Text): 08/14/18 14:46 PGY-1 Critical Care Progress Note for Dr. Shields Patient seen and examined at bedside. No acute events overnight. Add'l ativan given for patient increasingly agitated today and attempting to self-extubate. Will continue to monitor. CCU Objective - Vital Signs / Intake & Output Vital Signs (Last 4 hours): Vital Signs Temp Pulse Resp BP Pulse Ox 08/15/18 14:00 67 20 147/89 100 08/15/18 13:00 58 L 17 150/91 H 100 08/15/18 12:00 97 F L 61 17 152/96 H 100 08/15/18 11:00 60 19 149/87 99 Intake and Output (Last 8hrs): Intake & Output 08/14/18 08/15/18 08/15/18 22:59 06:59 14:59 Intake Total 586.0 620.5 613.6 Output Total 203 900 Balance 383.0 -279.5 613.6 Weight 180 lb 8.937 oz Intake: IV 50 150 50 Intake, IV Amount 216.0 150.5 143.6 Right Forearm 110 Right Hand 106.0 150.5 143.6 Tube Feeding 320 320 320 Other 100 Output: Urine 203 900 Urethral ([place]) 203 900 Other: # Bowel Movements 0 0 - Physical Exam Head: Positive for: Atraumatic, Normocephalic Respiratory/Chest: Positive for: Good Air Exchange, Rales, Rhonchi. Negative for: Respiratory Distress, Accessory Muscle Use Cardiovascular: Positive for: Normal S1, S2, Tachycardic Abdomen: Positive for: Normal Bowel Sounds Lower Extremity: Positive for: Normal Inspection Neurological: Negative for: GCS=15, Speech Normal - Medications Active Medications: Active Medications Generic Name Dose Route Start Last Admin Trade Name Freq PRN Reason Stop Dose Admin Albuterol/Ipratropium 3 ml 08/12/18 20:00 08/15/18 03:08 Duoneb 3 Mg/0.5 Mg (3 Ml) Ud INH 3 ml RQ4 ASHLEIGH Administration Famotidine 20 mg 08/11/18 10:00 08/15/18 09:08 Pepcid IVP 20 mg DAILY ASHLEIGH Administration Heparin Sodium (Porcine) 5,000 units 08/13/18 14:00 08/15/18 13:31 Heparin SC 5,000 units Q8 ASHLEIGH Administration Dexmedetomidine HCl 200 mcg/ 50 mls @ 4.07 mls/hr 08/12/18 14:30 08/15/18 12:00 Sodium Chloride IV 0.73 mcg/kg/hr TITR PRN 14.84 mls/hr Agitation Administration Protocol 0.2 MCG/KG/HR Piperacillin Sod/Tazobactam 100 mls @ 200 mls/hr 08/14/18 08:00 08/15/18 07:01 Sod 2.25 gm/ Sodium Chloride IVPB 200 mls/hr Q8H ASHLEIGH Administration Protocol Insulin Human Regular 0 unit 08/13/18 00:00 08/15/18 12:00 Novolin R SC Not Given Q6 ASHLEIGH Protocol Methylprednisolone 40 mg 08/14/18 10:00 08/15/18 09:08 Solu-Medrol IVP 40 mg DAILY ASHLEIGH Administration Multivitamins/Vitamin C 5 ml 08/11/18 10:00 08/15/18 09:09 Multi-Delyn Liquid PO 5 ml DAILY ASHLEIGH Administration - Patient Studies Lab Studies: Microbiology Studies 08/12/18 20:20 Gram Stain - Final Trachasp Sputum Culture - Final NORMAL ORAL WILSON Lab Studies 08/15/18 08/15/18 08/15/18 Range/Units 13:28 13:19 05:28 WBC (4.8-10.8) K/uL RBC (4.40-5.90) Mil/uL Hgb (12.0-18.0) g/dL Hct (35.0-51.0) % MCV (80.0-94.0) fL MCH (27.0-31.0) pg MCHC (33.0-37.0) g/dL RDW (11.5-14.5) % Plt Count (130-400) K/uL MPV (7.2-11.7) fL Neut % (Auto) (50.0-75.0) % Lymph % (Auto) (20.0-40.0) % [place] % (Auto) (0.0-10.0) % Eos % (Auto) (0.0-4.0) % Baso % (Auto) (0.0-2.0) % Neut # (Auto) (1.8-7.0) K/uL Lymph # (Auto) (1.0-4.3) K/uL [place] # (Auto) (0.0-0.8) K/uL Eos # (Auto) (0.0-0.7) K/uL Baso # (Auto) (0.0-0.2) K/uL Neutrophils % (Manual) (50-75) % Band Neutrophils % (0-2) % Lymphocytes % (Manual) (20-40) % Monocytes % (Manual) (0-10) % Platelet Estimate (NORMAL) Hypochromasia (manual) Anisocytosis (manual) Puncture Site Rb pCO2 31 L (35-45) mm/Hg pO2 106 H (80-100) mm/Hg HCO3 23.5 (21-28) mmol/L ABG pH 7.45 (7.35-7.45) ABG Total CO2 22.5 (22-28) mmol/L ABG O2 Saturation 99.4 H (95-98) % ABG Base Excess -1.9 (-2.0-3.0) mmol/L ABG Hemoglobin 9.4 L (11.7-17.4) g/dL ABG Carboxyhemoglobin 1.9 H (0.5-1.5) % POC ABG HHb (Measured) 0.6 (0.0-5.0) % ABG Methemoglobin 1.0 (0.0-3.0) % Rei Test Na A-a O2 Difference 69.0 mm/Hg Respiratory Index 0.7 Hgb O2 Saturation 96.4 (95.0-98.0) % Vent Mode Prvc Mechanical Rate 15 FiO2 30.0 % Tidal Volume 500 PEEP 5 Sodium (132-148) mmol/L Potassium (3.6-5.2) mmol/L Chloride (98-107) mmol/L Carbon Dioxide (22-30) mmol/L Anion Gap (10-20) BUN (9-20) mg/dL Creatinine (0.8-1.5) mg/dL Est GFR ( Amer) Est GFR (Non-Af Amer) Random Glucose (75-110) mg/dL Serum Osmolality 334 H (272-300) mosm/kg Calcium (8.6-10.4) mg/dl Phosphorus (2.5-4.5) mg/dL Magnesium (1.6-2.3) mg/dL Total Bilirubin (0.2-1.3) mg/dL AST (17-59) U/L ALT (21-72) U/L Alkaline Phosphatase (38-126) U/L Total Protein (6.3-8.3) g/dL Albumin (3.5-5.0) g/dL Globulin (2.2-3.9) gm/dL Albumin/Globulin Ratio (1.0-2.1) Urine Color Yellow (YELLOW) Urine Clarity Clear (Clear) Urine pH 6.0 (5.0-8.0) Ur Specific [place] 1.016 (1.003-1.030) Urine Protein Negative (NEGATIVE) mg/dL Urine Glucose (UA) Normal (Normal) mg/dL Urine Ketones Negative (NEGATIVE) mg/dL Urine Blood 2+ H (NEGATIVE) Urine Nitrate Negative (NEGATIVE) Urine Bilirubin Negative (NEGATIVE) Urine Urobilinogen Normal (0.2-1.0) mg/dL Ur Leukocyte Esterase Neg (Negative) [place]/uL Urine WBC (Auto) 4 (0-5) /hpf Urine RBC (Auto) 19 H (0-3) /hpf Ur Squamous Epith Cells < 1 (0-5) /hpf 08/15/18 08/15/18 Range/Units 04:42 04:42 WBC 6.5 (4.8-10.8) K/uL RBC 4.03 L (4.40-5.90) Mil/uL Hgb 9.9 L (12.0-18.0) g/dL Hct 31.7 L (35.0-51.0) % MCV 78.8 L (80.0-94.0) fL MCH 24.6 L (27.0-31.0) pg MCHC 31.2 L (33.0-37.0) g/dL RDW 21.1 H (11.5-14.5) % Plt Count 88 L (130-400) K/uL MPV 9.5 (7.2-11.7) fL Neut % (Auto) 76.8 H (50.0-75.0) % Lymph % (Auto) 6.6 L (20.0-40.0) % [place] % (Auto) 16.4 H (0.0-10.0) % Eos % (Auto) 0.0 (0.0-4.0) % Baso % (Auto) 0.2 (0.0-2.0) % Neut # (Auto) 5.0 (1.8-7.0) K/uL Lymph # (Auto) 0.4 L (1.0-4.3) K/uL [place] # (Auto) 1.1 H (0.0-0.8) K/uL Eos # (Auto) 0.0 (0.0-0.7) K/uL Baso # (Auto) 0.0 (0.0-0.2) K/uL Neutrophils % (Manual) 78 H (50-75) % Band Neutrophils % 4 H (0-2) % Lymphocytes % (Manual) 5 L (20-40) % Monocytes % (Manual) 13 H (0-10) % Platelet Estimate Decreased L (NORMAL) Hypochromasia (manual) Slight Anisocytosis (manual) Moderate Puncture Site pCO2 (35-45) mm/Hg pO2 (80-100) mm/Hg HCO3 (21-28) mmol/L ABG pH (7.35-7.45) ABG Total CO2 (22-28) mmol/L ABG O2 Saturation (95-98) % ABG Base Excess (-2.0-3.0) mmol/L ABG Hemoglobin (11.7-17.4) g/dL ABG Carboxyhemoglobin (0.5-1.5) % POC ABG HHb (Measured) (0.0-5.0) % ABG Methemoglobin (0.0-3.0) % Rei Test A-a O2 Difference mm/Hg Respiratory Index Hgb O2 Saturation (95.0-98.0) % Vent Mode Mechanical Rate FiO2 % Tidal Volume PEEP Sodium 146 (132-148) mmol/L Potassium 3.3 L (3.6-5.2) mmol/L Chloride 110 H (98-107) mmol/L Carbon Dioxide 21 L (22-30) mmol/L Anion Gap 18 (10-20) BUN 65 H (9-20) mg/dL Creatinine 2.8 H (0.8-1.5) mg/dL Est GFR ( Amer) 28 Est GFR (Non-Af Amer) 23 Random Glucose 209 H (75-110) mg/dL Serum Osmolality (272-300) mosm/kg Calcium 8.2 L (8.6-10.4) mg/dl Phosphorus 3.1 (2.5-4.5) mg/dL Magnesium 2.6 H (1.6-2.3) mg/dL Total Bilirubin 0.8 (0.2-1.3) mg/dL AST 92 H (17-59) U/L ALT 52 (21-72) U/L Alkaline Phosphatase 120 (38-126) U/L Total Protein 6.5 (6.3-8.3) g/dL Albumin 3.1 L (3.5-5.0) g/dL Globulin 3.4 (2.2-3.9) gm/dL Albumin/Globulin Ratio 0.9 L (1.0-2.1) Urine Color (YELLOW) Urine Clarity (Clear) Urine pH (5.0-8.0) Ur Specific [place] (1.003-1.030) Urine Protein (NEGATIVE) mg/dL Urine Glucose (UA) (Normal) mg/dL Urine Ketones (NEGATIVE) mg/dL Urine Blood (NEGATIVE) Urine Nitrate (NEGATIVE) Urine Bilirubin (NEGATIVE) Urine Urobilinogen (0.2-1.0) mg/dL Ur Leukocyte Esterase (Negative) [place]/uL Urine WBC (Auto) (0-5) /hpf Urine RBC (Auto) (0-3) /hpf Ur Squamous Epith Cells (0-5) /hpf Laboratory Results - last 24 hr 08/15/18 08/15/18 08/15/18 04:42 04:42 05:28 WBC 6.5 RBC 4.03 L Hgb 9.9 L Hct 31.7 L MCV 78.8 L MCH 24.6 L MCHC 31.2 L RDW 21.1 H Plt Count 88 L MPV 9.5 Neut % (Auto) 76.8 H Lymph % (Auto) 6.6 L [place] % (Auto) 16.4 H Eos % (Auto) 0.0 Baso % (Auto) 0.2 Neut # (Auto) 5.0 Lymph # (Auto) 0.4 L [place] # (Auto) 1.1 H Eos # (Auto) 0.0 Baso # (Auto) 0.0 Neutrophils % (Manual) 78 H Band Neutrophils % 4 H Lymphocytes % (Manual) 5 L Monocytes % (Manual) 13 H Platelet Estimate Decreased L Hypochromasia (manual) Slight Anisocytosis (manual) Moderate Puncture Site Rb pCO2 31 L pO2 106 H HCO3 23.5 ABG pH 7.45 ABG Total CO2 22.5 ABG O2 Saturation 99.4 H ABG Base Excess -1.9 ABG Hemoglobin 9.4 L ABG Carboxyhemoglobin 1.9 H POC ABG HHb (Measured) 0.6 ABG Methemoglobin 1.0 Rei Test Na A-a O2 Difference 69.0 Respiratory Index 0.7 Hgb O2 Saturation 96.4 Vent Mode Prvc Mechanical Rate 15 FiO2 30.0 Tidal Volume 500 PEEP 5 Sodium 146 Potassium 3.3 L Chloride 110 H Carbon Dioxide 21 L Anion Gap 18 BUN 65 H Creatinine 2.8 H Est GFR ( Amer) 28 Est GFR (Non-Af Amer) 23 Random Glucose 209 H Serum Osmolality Calcium 8.2 L Phosphorus 3.1 Magnesium 2.6 H Total Bilirubin 0.8 AST 92 H ALT 52 Alkaline Phosphatase 120 Total Protein 6.5 Albumin 3.1 L Globulin 3.4 Albumin/Globulin Ratio 0.9 L Urine Color Urine Clarity Urine pH Ur Specific [place] Urine Protein Urine Glucose (UA) Urine Ketones Urine Blood Urine Nitrate Urine Bilirubin Urine Urobilinogen Ur Leukocyte Esterase Urine WBC (Auto) Urine RBC (Auto) Ur Squamous Epith Cells 08/15/18 08/15/18 13:19 13:28 WBC RBC Hgb Hct MCV MCH MCHC RDW Plt Count MPV Neut % (Auto) Lymph % (Auto) [place] % (Auto) Eos % (Auto) Baso % (Auto) Neut # (Auto) Lymph # (Auto) [place] # (Auto) Eos # (Auto) Baso # (Auto) Neutrophils % (Manual) Band Neutrophils % Lymphocytes % (Manual) Monocytes % (Manual) Platelet Estimate Hypochromasia (manual) Anisocytosis (manual) Puncture Site pCO2 pO2 HCO3 ABG pH ABG Total CO2 ABG O2 Saturation ABG Base Excess ABG Hemoglobin ABG Carboxyhemoglobin POC ABG HHb (Measured) ABG Methemoglobin Rei Test A-a O2 Difference Respiratory Index Hgb O2 Saturation Vent Mode Mechanical Rate FiO2 Tidal Volume PEEP Sodium Potassium Chloride Carbon Dioxide Anion Gap BUN Creatinine Est GFR ( Amer) Est GFR (Non-Af Amer) Random Glucose Serum Osmolality 334 H Calcium Phosphorus Magnesium Total Bilirubin AST ALT Alkaline Phosphatase Total Protein Albumin Globulin Albumin/Globulin Ratio Urine Color Yellow Urine Clarity Clear Urine pH 6.0 Ur Specific [place] 1.016 Urine Protein Negative Urine Glucose (UA) Normal Urine Ketones Negative Urine Blood 2+ H Urine Nitrate Negative Urine Bilirubin Negative Urine Urobilinogen Normal Ur Leukocyte Esterase Neg Urine WBC (Auto) 4 Urine RBC (Auto) 19 H Ur Squamous Epith Cells < 1 Radiology Impressions: Radiology Impressions Chest X-Ray 08/15/18 06:00 IMPRESSION: Worsening bilateral airspace infiltrates. Concomitant worsening pulmonary venous congestion-as detailed above. Similar small left pleural effusion. Interval increase right pleural effusion. Additional findings as above. Endotracheal tube and nasogastric tube courses appear satisfactory. Fingerstick Blood Sugar Results: 198 Review of Systems - Review of Systems All systems: reviewed and no additional remarkable complaints except Assessment/Plan - Assessment and Plan (Free Text) Assessment: Pulm Hypoxic respiratory failure, COPD -Intubated 08/12, PRVC. FiO2 30% -Solumedrol 40 mg IV daily -Sputum cx NEGATIVE - final -Zosyn 2.25 daily for renal dosing Cardio -SVT resolved, NSR on monitor HR 80s -D/w patient possible need for ablation outpatient Neuro AMS, DTs -Continue to monitor -Precedex -Monitor -Ativan 1mg IV given once for increased agitation Endo -Anion gap metablic acidosis - DKA vs uremia vs lactic acidosis vs various causes -AG 15 -Continue to monitor ID Sepsis, strep bacteremia -ID consutled, Dr. Moss -Blood cx - Group G strep -cont zosyn -f/u repeat blood cultures -Monitor vitals Ppx -Heparin SCC Q8 -Precedex Assessment and plan d/w Dr. Cornelius Steinberg, PGY-1 <Olvin Shields S - Last Filed: 08/15/18 15:44> CCU Subjective - Physician Review Critical Care Time Spent (in minutes): 40 CCU Objective - Vital Signs / Intake & Output Vital Signs (Last 4 hours): Vital Signs Temp Pulse Resp BP Pulse Ox 08/15/18 15:27 66 14 151/90 H 100 08/15/18 15:00 67 19 151/90 H 100 08/15/18 14:00 67 20 147/89 100 08/15/18 13:00 58 L 17 150/91 H 100 08/15/18 12:00 97 F L 61 17 152/96 H 100 Intake and Output (Last 8hrs): Intake & Output 08/15/18 08/15/18 08/15/18 06:59 14:59 22:59 Intake Total 620.5 613.6 65 Output Total 900 Balance -279.5 613.6 65 Weight 180 lb 8.937 oz Intake: IV 150 50 Intake, IV Amount 150.5 143.6 25 Right Hand 150.5 143.6 25 Tube Feeding 320 320 40 Other 100 Output: Urine 900 Urethral ([place]) 900 Other: # Bowel Movements 0 - Medications Active Medications: Active Medications Generic Name Dose Route Start Last Admin Trade Name Freq PRN Reason Stop Dose Admin Albuterol/Ipratropium 3 ml 08/12/18 20:00 08/15/18 03:08 Duoneb 3 Mg/0.5 Mg (3 Ml) Ud INH 3 ml RQ4 ASHLEIGH Administration Famotidine 20 mg 08/11/18 10:00 08/15/18 09:08 Pepcid IVP 20 mg DAILY ASHLEIGH Administration Heparin Sodium (Porcine) 5,000 units 08/13/18 14:00 08/15/18 13:31 Heparin SC 5,000 units Q8 ASHLEIGH Administration Dexmedetomidine HCl 200 mcg/ 50 mls @ 4.07 mls/hr 08/12/18 14:30 08/15/18 12:00 Sodium Chloride IV 0.73 mcg/kg/hr TITR PRN 14.84 mls/hr Agitation Administration Protocol 0.2 MCG/KG/HR Piperacillin Sod/Tazobactam 100 mls @ 200 mls/hr 08/14/18 08:00 08/15/18 15:36 Sod 2.25 gm/ Sodium Chloride IVPB 200 mls/hr Q8H ASHLEIGH Administration Protocol Insulin Human Regular 0 unit 08/13/18 00:00 08/15/18 12:00 Novolin R SC Not Given Q6 ASHLEIGH Protocol Methylprednisolone 40 mg 08/14/18 10:00 08/15/18 09:08 Solu-Medrol IVP 40 mg DAILY ASHLEIGH Administration Multivitamins/Vitamin C 5 ml 08/11/18 10:00 08/15/18 09:09 Multi-Delyn Liquid PO 5 ml DAILY ASHLEIGH Administration - Patient Studies Lab Studies: Microbiology Studies 08/12/18 20:20 Gram Stain - Final Trachasp Sputum Culture - Final NORMAL ORAL WILSON Lab Studies 08/15/18 08/15/18 08/15/18 Range/Units 13:53 13:28 13:19 WBC (4.8-10.8) K/uL RBC (4.40-5.90) Mil/uL Hgb (12.0-18.0) g/dL Hct (35.0-51.0) % MCV (80.0-94.0) fL MCH (27.0-31.0) pg MCHC (33.0-37.0) g/dL RDW (11.5-14.5) % Plt Count (130-400) K/uL MPV (7.2-11.7) fL Neut % (Auto) (50.0-75.0) % Lymph % (Auto) (20.0-40.0) % [place] % (Auto) (0.0-10.0) % Eos % (Auto) (0.0-4.0) % Baso % (Auto) (0.0-2.0) % Neut # (Auto) (1.8-7.0) K/uL Lymph # (Auto) (1.0-4.3) K/uL [place] # (Auto) (0.0-0.8) K/uL Eos # (Auto) (0.0-0.7) K/uL Baso # (Auto) (0.0-0.2) K/uL Neutrophils % (Manual) (50-75) % Band Neutrophils % (0-2) % Lymphocytes % (Manual) (20-40) % Monocytes % (Manual) (0-10) % Platelet Estimate (NORMAL) Hypochromasia (manual) Anisocytosis (manual) Puncture Site pCO2 (35-45) mm/Hg pO2 (80-100) mm/Hg HCO3 (21-28) mmol/L ABG pH (7.35-7.45) ABG Total CO2 (22-28) mmol/L ABG O2 Saturation (95-98) % ABG Base Excess (-2.0-3.0) mmol/L ABG Hemoglobin (11.7-17.4) g/dL ABG Carboxyhemoglobin (0.5-1.5) % POC ABG HHb (Measured) (0.0-5.0) % ABG Methemoglobin (0.0-3.0) % Rei Test A-a O2 Difference mm/Hg Respiratory Index Hgb O2 Saturation (95.0-98.0) % Vent Mode Mechanical Rate FiO2 % Tidal Volume PEEP Sodium (132-148) mmol/L Potassium (3.6-5.2) mmol/L Chloride (98-107) mmol/L Carbon Dioxide (22-30) mmol/L Anion Gap (10-20) BUN (9-20) mg/dL Creatinine (0.8-1.5) mg/dL Est GFR ( Amer) Est GFR (Non-Af Amer) Random Glucose (75-110) mg/dL Serum Osmolality 334 H (272-300) mosm/kg Calcium (8.6-10.4) mg/dl Phosphorus (2.5-4.5) mg/dL Magnesium (1.6-2.3) mg/dL Total Bilirubin (0.2-1.3) mg/dL AST (17-59) U/L ALT (21-72) U/L Alkaline Phosphatase (38-126) U/L Total Protein (6.3-8.3) g/dL Albumin (3.5-5.0) g/dL Globulin (2.2-3.9) gm/dL Albumin/Globulin Ratio (1.0-2.1) Urine Color Yellow (YELLOW) Urine Clarity Clear (Clear) Urine pH 6.0 (5.0-8.0) Ur Specific [place] 1.016 (1.003-1.030) Urine Protein Negative (NEGATIVE) mg/dL Urine Glucose (UA) Normal (Normal) mg/dL Urine Ketones Negative (NEGATIVE) mg/dL Urine Blood 2+ H (NEGATIVE) Urine Nitrate Negative (NEGATIVE) Urine Bilirubin Negative (NEGATIVE) Urine Urobilinogen Normal (0.2-1.0) mg/dL Ur Leukocyte Esterase Neg (Negative) [place]/uL Urine WBC (Auto) 4 (0-5) /hpf Urine RBC (Auto) 19 H (0-3) /hpf Ur Squamous Epith Cells < 1 (0-5) /hpf U Random Total Protein 26.0 H (0.0-12.0) mg/dL 08/15/18 08/15/18 08/15/18 Range/Units 05:28 04:42 04:42 WBC 6.5 (4.8-10.8) K/uL RBC 4.03 L (4.40-5.90) Mil/uL Hgb 9.9 L (12.0-18.0) g/dL Hct 31.7 L (35.0-51.0) % MCV 78.8 L (80.0-94.0) fL MCH 24.6 L (27.0-31.0) pg MCHC 31.2 L (33.0-37.0) g/dL RDW 21.1 H (11.5-14.5) % Plt Count 88 L (130-400) K/uL MPV 9.5 (7.2-11.7) fL Neut % (Auto) 76.8 H (50.0-75.0) % Lymph % (Auto) 6.6 L (20.0-40.0) % [place] % (Auto) 16.4 H (0.0-10.0) % Eos % (Auto) 0.0 (0.0-4.0) % Baso % (Auto) 0.2 (0.0-2.0) % Neut # (Auto) 5.0 (1.8-7.0) K/uL Lymph # (Auto) 0.4 L (1.0-4.3) K/uL [place] # (Auto) 1.1 H (0.0-0.8) K/uL Eos # (Auto) 0.0 (0.0-0.7) K/uL Baso # (Auto) 0.0 (0.0-0.2) K/uL Neutrophils % (Manual) 78 H (50-75) % Band Neutrophils % 4 H (0-2) % Lymphocytes % (Manual) 5 L (20-40) % Monocytes % (Manual) 13 H (0-10) % Platelet Estimate Decreased L (NORMAL) Hypochromasia (manual) Slight Anisocytosis (manual) Moderate Puncture Site Rb pCO2 31 L (35-45) mm/Hg pO2 106 H (80-100) mm/Hg HCO3 23.5 (21-28) mmol/L ABG pH 7.45 (7.35-7.45) ABG Total CO2 22.5 (22-28) mmol/L ABG O2 Saturation 99.4 H (95-98) % ABG Base Excess -1.9 (-2.0-3.0) mmol/L ABG Hemoglobin 9.4 L (11.7-17.4) g/dL ABG Carboxyhemoglobin 1.9 H (0.5-1.5) % POC ABG HHb (Measured) 0.6 (0.0-5.0) % ABG Methemoglobin 1.0 (0.0-3.0) % Rei Test Na A-a O2 Difference 69.0 mm/Hg Respiratory Index 0.7 Hgb O2 Saturation 96.4 (95.0-98.0) % Vent Mode Prvc Mechanical Rate 15 FiO2 30.0 % Tidal Volume 500 PEEP 5 Sodium 146 (132-148) mmol/L Potassium 3.3 L (3.6-5.2) mmol/L Chloride 110 H (98-107) mmol/L Carbon Dioxide 21 L (22-30) mmol/L Anion Gap 18 (10-20) BUN 65 H (9-20) mg/dL Creatinine 2.8 H (0.8-1.5) mg/dL Est GFR ( Amer) 28 Est GFR (Non-Af Amer) 23 Random Glucose 209 H (75-110) mg/dL Serum Osmolality (272-300) mosm/kg Calcium 8.2 L (8.6-10.4) mg/dl Phosphorus 3.1 (2.5-4.5) mg/dL Magnesium 2.6 H (1.6-2.3) mg/dL Total Bilirubin 0.8 (0.2-1.3) mg/dL AST 92 H (17-59) U/L ALT 52 (21-72) U/L Alkaline Phosphatase 120 (38-126) U/L Total Protein 6.5 (6.3-8.3) g/dL Albumin 3.1 L (3.5-5.0) g/dL Globulin 3.4 (2.2-3.9) gm/dL Albumin/Globulin Ratio 0.9 L (1.0-2.1) Urine Color (YELLOW) Urine Clarity (Clear) Urine pH (5.0-8.0) Ur Specific [place] (1.003-1.030) Urine Protein (NEGATIVE) mg/dL Urine Glucose (UA) (Normal) mg/dL Urine Ketones (NEGATIVE) mg/dL Urine Blood (NEGATIVE) Urine Nitrate (NEGATIVE) Urine Bilirubin (NEGATIVE) Urine Urobilinogen (0.2-1.0) mg/dL Ur Leukocyte Esterase (Negative) [place]/uL Urine WBC (Auto) (0-5) /hpf Urine RBC (Auto) (0-3) /hpf Ur Squamous Epith Cells (0-5) /hpf U Random Total Protein (0.0-12.0) mg/dL Laboratory Results - last 24 hr 08/15/18 08/15/18 08/15/18 04:42 04:42 05:28 WBC 6.5 RBC 4.03 L Hgb 9.9 L Hct 31.7 L MCV 78.8 L MCH 24.6 L MCHC 31.2 L RDW 21.1 H Plt Count 88 L MPV 9.5 Neut % (Auto) 76.8 H Lymph % (Auto) 6.6 L [place] % (Auto) 16.4 H Eos % (Auto) 0.0 Baso % (Auto) 0.2 Neut # (Auto) 5.0 Lymph # (Auto) 0.4 L [place] # (Auto) 1.1 H Eos # (Auto) 0.0 Baso # (Auto) 0.0 Neutrophils % (Manual) 78 H Band Neutrophils % 4 H Lymphocytes % (Manual) 5 L Monocytes % (Manual) 13 H Platelet Estimate Decreased L Hypochromasia (manual) Slight Anisocytosis (manual) Moderate Puncture Site Rb pCO2 31 L pO2 106 H HCO3 23.5 ABG pH 7.45 ABG Total CO2 22.5 ABG O2 Saturation 99.4 H ABG Base Excess -1.9 ABG Hemoglobin 9.4 L ABG Carboxyhemoglobin 1.9 H POC ABG HHb (Measured) 0.6 ABG Methemoglobin 1.0 Rei Test Na A-a O2 Difference 69.0 Respiratory Index 0.7 Hgb O2 Saturation 96.4 Vent Mode Prvc Mechanical Rate 15 FiO2 30.0 Tidal Volume 500 PEEP 5 Sodium 146 Potassium 3.3 L Chloride 110 H Carbon Dioxide 21 L Anion Gap 18 BUN 65 H Creatinine 2.8 H Est GFR ( Amer) 28 Est GFR (Non-Af Amer) 23 Random Glucose 209 H Serum Osmolality Calcium 8.2 L Phosphorus 3.1 Magnesium 2.6 H Total Bilirubin 0.8 AST 92 H ALT 52 Alkaline Phosphatase 120 Total Protein 6.5 Albumin 3.1 L Globulin 3.4 Albumin/Globulin Ratio 0.9 L Urine Color Urine Clarity Urine pH Ur Specific [place] Urine Protein Urine Glucose (UA) Urine Ketones Urine Blood Urine Nitrate Urine Bilirubin Urine Urobilinogen Ur Leukocyte Esterase Urine WBC (Auto) Urine RBC (Auto) Ur Squamous Epith Cells U Random Total Protein 08/15/18 08/15/18 08/15/18 13:19 13:28 13:53 WBC RBC Hgb Hct MCV MCH MCHC RDW Plt Count MPV Neut % (Auto) Lymph % (Auto) [place] % (Auto) Eos % (Auto) Baso % (Auto) Neut # (Auto) Lymph # (Auto) [place] # (Auto) Eos # (Auto) Baso # (Auto) Neutrophils % (Manual) Band Neutrophils % Lymphocytes % (Manual) Monocytes % (Manual) Platelet Estimate Hypochromasia (manual) Anisocytosis (manual) Puncture Site pCO2 pO2 HCO3 ABG pH ABG Total CO2 ABG O2 Saturation ABG Base Excess ABG Hemoglobin ABG Carboxyhemoglobin POC ABG HHb (Measured) ABG Methemoglobin Rei Test A-a O2 Difference Respiratory Index Hgb O2 Saturation Vent Mode Mechanical Rate FiO2 Tidal Volume PEEP Sodium Potassium Chloride Carbon Dioxide Anion Gap BUN Creatinine Est GFR ( Amer) Est GFR (Non-Af Amer) Random Glucose Serum Osmolality 334 H Calcium Phosphorus Magnesium Total Bilirubin AST ALT Alkaline Phosphatase Total Protein Albumin Globulin Albumin/Globulin Ratio Urine Color Yellow Urine Clarity Clear Urine pH 6.0 Ur Specific [place] 1.016 Urine Protein Negative Urine Glucose (UA) Normal Urine Ketones Negative Urine Blood 2+ H Urine Nitrate Negative Urine Bilirubin Negative Urine Urobilinogen Normal Ur Leukocyte Esterase Neg Urine WBC (Auto) 4 Urine RBC (Auto) 19 H Ur Squamous Epith Cells < 1 U Random Total Protein 26.0 H Radiology Impressions: Radiology Impressions Chest X-Ray 08/15/18 06:00 IMPRESSION: Worsening bilateral airspace infiltrates. Concomitant worsening pulmonary venous congestion-as detailed above. Similar small left pleural effusion. Interval increase right pleural effusion. Additional findings as above. Endotracheal tube and nasogastric tube courses appear satisfactory. Attending/Attestation - Attestation I have personally seen and examined this patient.: Yes I have fully participated in the care of the patient.: Yes I have reviewed all pertinent clinical information: Yes Notes (Text): 08/15/18 15:43 Patient seen and examined in the intensive care unit. Case discussed with housestaff in the morning rounds. Remained intubated on ventilatory support Worsening infiltrate/chest congestion noted Continue antibiotics
--- NOTE | 2018-08-15 22:47 | CP.PCM.PN ---
Subjective - Date & Time of Evaluation Date of Evaluation: 08/15/18 Time of Evaluation: 08:20 - Subjective Subjective: dict Objective - Vital Signs/Intake and Output Vital Signs (last 24 hours): Temp Pulse Resp BP Pulse Ox 97.4 F L 78 27 H 131/69 100 08/15/18 20:00 08/15/18 22:00 08/15/18 22:00 08/15/18 21:56 08/15/18 22:00 Intake and Output: 08/15/18 08/16/18 18:59 06:59 Intake Total 923.9 281.6 Output Total 760 200 Balance 163.9 81.6 - Medications Medications: Current Medications Albuterol/Ipratropium (Duoneb 3 Mg/0.5 Mg (3 Ml) Ud) 3 ml INH RQ4 ASHLEIGH Last Admin: 08/15/18 20:01 Dose: 3 ml Famotidine (Pepcid) 20 mg IVP DAILY ASHLEIGH Last Admin: 08/15/18 09:08 Dose: 20 mg Heparin Sodium (Porcine) (Heparin) 5,000 units SC Q8 ASHLEIGH Last Admin: 08/15/18 20:59 Dose: 5,000 units Dexmedetomidine HCl 200 mcg/ (Sodium Chloride) 50 mls @ 4.07 mls/hr IV TITR PRN; Protocol PRN Reason: Agitation Last Admin: 08/15/18 20:41 Dose: 1 mcg/kg/hr, 20.33 mls/hr Piperacillin Sod/Tazobactam (Sod 2.25 gm/ Sodium Chloride) 100 mls @ 200 mls/hr IVPB Q8H ASHLEIGH; Protocol Last Admin: 08/15/18 15:36 Dose: 200 mls/hr Insulin Human Regular (Novolin R) 0 unit SC Q6 ASHLEIGH; Protocol Last Admin: 08/15/18 18:06 Dose: 2 unit Methylprednisolone (Solu-Medrol) 40 mg IVP DAILY ASHLEIGH Last Admin: 08/15/18 09:08 Dose: 40 mg Multivitamins/Vitamin C (Multi-Delyn Liquid) 5 ml PO DAILY ASHLEIGH Last Admin: 08/15/18 09:09 Dose: 5 ml - Labs Labs: 08/15/18 04:42 08/15/18 04:42
[2018-08-15] MEDS: Dexmedetomidine Hydrochloride 400 MCG in Sodium Chloride 0.9% 96 ML IV PRN (23:33)
--- NOTE | 2018-08-15 23:45 | CP.PCM.PN ---
Subjective - Date & Time of Evaluation Date of Evaluation: 08/15/18 Time of Evaluation: 17:25 - Subjective Subjective: Patient seen and examined at bedside. Intubated CCU Objective - Vital Signs / Intake & Output Vital Signs (Last 4 hours): Vital Signs Temp Pulse Resp BP Pulse Ox 08/15/18 14:00 67 20 147/89 100 08/15/18 13:00 58 L 17 150/91 H 100 08/15/18 12:00 97 F L 61 17 152/96 H 100 08/15/18 11:00 60 19 149/87 99 Intake and Output (Last 8hrs): Intake & Output 08/14/18 08/15/18 08/15/18 22:59 06:59 14:59 Intake Total 586.0 620.5 613.6 Output Total 203 900 Balance 383.0 -279.5 613.6 Weight 180 lb 8.937 oz Intake: IV 50 150 50 Intake, IV Amount 216.0 150.5 143.6 Right Forearm 110 Right Hand 106.0 150.5 143.6 Tube Feeding 320 320 320 Other 100 Output: Urine 203 900 Urethral ([place]) 203 900 Other: # Bowel Movements 0 0 - Physical Exam Head: Positive for: Atraumatic, Normocephalic Respiratory/Chest: Positive for: Good Air Exchange, Rales, Rhonchi. Negative fo r: Respiratory Distress, Accessory Muscle Use Cardiovascular: Positive for: Normal S1, S2, Tachycardic Abdomen: Positive for: Normal Bowel Sounds Lower Extremity: Positive for: Normal Inspection Neurological: Negative for: GCS=15, Speech Normal - Medications Active Medications: Active Medications Generic Name Dose Route Start Last Admin Trade Name Freq PRN Reason Stop Dose Admin Albuterol/Ipratropium 3 ml 08/12/18 20:00 08/15/18 03:08 Duoneb 3 Mg/0.5 Mg (3 Ml) Ud INH 3 ml RQ4 [facility] Administration Famotidine 20 mg 08/11/18 10:00 08/15/18 09:08 Pepcid IVP 20 mg DAILY [facility] Administration Heparin Sodium (Porcine) 5,000 units 08/13/18 14:00 08/15/18 13:31 Heparin SC 5,000 units Q8 [facility] Administration Dexmedetomidine HCl 200 mcg/ 50 mls @ 4.07 mls/hr 08/12/18 14:30 08/15/18 12:00 Sodium Chloride IV 0.73 mcg/kg/hr TITR PRN 14.84 mls/hr Agitation Administration Protocol 0.2 MCG/KG/HR Piperacillin Sod/Tazobactam 100 mls @ 200 mls/hr 08/14/18 08:00 08/15/18 07:01 Sod 2.25 gm/ Sodium Chloride IVPB 200 mls/hr Q8H [facility] Administration Protocol Insulin Human Regular 0 unit 08/13/18 00:00 08/15/18 12:00 Novolin R SC Not Given Q6 [facility] Protocol Methylprednisolone 40 mg 08/14/18 10:00 08/15/18 09:08 Solu-Medrol IVP 40 mg DAILY [facility] Administration Multivitamins/Vitamin C 5 ml 08/11/18 10:00 08/15/18 09:09 Multi-Delyn Liquid PO 5 ml DAILY [facility] Administration - Patient Studies Lab Studies: Microbiology Studies 08/12/18 20:20 Gram Stain - Final Trachasp Sputum Culture - Final NORMAL ORAL WILSON Lab Studies 08/15/18 08/15/18 08/15/18 Range/Units 13:28 13:19 05:28 WBC (4.8-10.8) K/uL RBC (4.40-5.90) Mil/uL Hgb (12.0-18.0) g/dL Hct (35.0-51.0) % MCV (80.0-94.0) fL MCH (27.0-31.0) pg MCHC (33.0-37.0) g/dL RDW (11.5-14.5) % Plt Count (130-400) K/uL MPV (7.2-11.7) fL Neut % (Auto) (50.0-75.0) % Lymph % (Auto) (20.0-40.0) % [place] % (Auto) (0.0-10.0) % Eos % (Auto) (0.0-4.0) % Baso % (Auto) (0.0-2.0) % Neut # (Auto) (1.8-7.0) K/uL Lymph # (Auto) (1.0-4.3) K/uL [place] # (Auto) (0.0-0.8) K/uL Eos # (Auto) (0.0-0.7) K/uL Baso # (Auto) (0.0-0.2) K/uL Neutrophils % (Manual) (50-75) % Band Neutrophils % (0-2) % Lymphocytes % (Manual) (20-40) % Monocytes % (Manual) (0-10) % Platelet Estimate (NORMAL) Hypochromasia (manual) Anisocytosis (manual) Puncture Site Rb pCO2 31 L (35-45) mm/Hg pO2 106 H (80-100) mm/Hg HCO3 23.5 (21-28) mmol/L ABG pH 7.45 (7.35-7.45) ABG Total CO2 22.5 (22-28) mmol/L ABG O2 Saturation 99.4 H (95-98) % ABG Base Excess -1.9 (-2.0-3.0) mmol/L ABG Hemoglobin 9.4 L (11.7-17.4) g/dL ABG Carboxyhemoglobin 1.9 H (0.5-1.5) % POC ABG HHb (Measured) 0.6 (0.0-5.0) % ABG Methemoglobin 1.0 (0.0-3.0) % Rei Test Na A-a O2 Difference 69.0 mm/Hg Respiratory Index 0.7 Hgb O2 Saturation 96.4 (95.0-98.0) % Vent Mode Prvc Mechanical Rate 15 FiO2 30.0 % Tidal Volume 500 PEEP 5 Sodium (132-148) mmol/L Potassium (3.6-5.2) mmol/L Chloride (98-107) mmol/L Carbon Dioxide (22-30) mmol/L Anion Gap (10-20) BUN (9-20) mg/dL Creatinine (0.8-1.5) mg/dL Est GFR ( Amer) Est GFR (Non-Af Amer) Random Glucose (75-110) mg/dL Serum Osmolality 334 H (272-300) mosm/kg Calcium (8.6-10.4) mg/dl Phosphorus (2.5-4.5) mg/dL Magnesium (1.6-2.3) mg/dL Total Bilirubin (0.2-1.3) mg/dL AST (17-59) U/L ALT (21-72) U/L Alkaline Phosphatase (38-126) U/L Total Protein (6.3-8.3) g/dL Albumin (3.5-5.0) g/dL Globulin (2.2-3.9) gm/dL Albumin/Globulin Ratio (1.0-2.1) Urine Color Yellow (YELLOW) Urine Clarity Clear (Clear) Urine pH 6.0 (5.0-8.0) Ur Specific [place] 1.016 (1.003-1.030) Urine Protein Negative (NEGATIVE) mg/dL Urine Glucose (UA) Normal (Normal) mg/dL Urine Ketones Negative (NEGATIVE) mg/dL Urine Blood 2+ H (NEGATIVE) Urine Nitrate Negative (NEGATIVE) Urine Bilirubin Negative (NEGATIVE) Urine Urobilinogen Normal (0.2-1.0) mg/dL Ur Leukocyte Esterase Neg (Negative) Marina/uL Urine WBC (Auto) 4 (0-5) /hpf Urine RBC (Auto) 19 H (0-3) /hpf Ur Squamous Epith Cells < 1 (0-5) /hpf 08/15/18 08/15/18 Range/Units 04:42 04:42 WBC 6.5 (4.8-10.8) K/uL RBC 4.03 L (4.40-5.90) Mil/uL Hgb 9.9 L (12.0-18.0) g/dL Hct 31.7 L (35.0-51.0) % MCV 78.8 L (80.0-94.0) fL MCH 24.6 L (27.0-31.0) pg MCHC 31.2 L (33.0-37.0) g/dL RDW 21.1 H (11.5-14.5) % Plt Count 88 L (130-400) K/uL MPV 9.5 (7.2-11.7) fL Neut % (Auto) 76.8 H (50.0-75.0) % Lymph % (Auto) 6.6 L (20.0-40.0) % [place] % (Auto) 16.4 H (0.0-10.0) % Eos % (Auto) 0.0 (0.0-4.0) % Baso % (Auto) 0.2 (0.0-2.0) % Neut # (Auto) 5.0 (1.8-7.0) K/uL Lymph # (Auto) 0.4 L (1.0-4.3) K/uL [place] # (Auto) 1.1 H (0.0-0.8) K/uL Eos # (Auto) 0.0 (0.0-0.7) K/uL Baso # (Auto) 0.0 (0.0-0.2) K/uL Neutrophils % (Manual) 78 H (50-75) % Band Neutrophils % 4 H (0-2) % Lymphocytes % (Manual) 5 L (20-40) % Monocytes % (Manual) 13 H (0-10) % Platelet Estimate Decreased L (NORMAL) Hypochromasia (manual) Slight Anisocytosis (manual) Moderate Puncture Site pCO2 (35-45) mm/Hg pO2 (80-100) mm/Hg HCO3 (21-28) mmol/L ABG pH (7.35-7.45) ABG Total CO2 (22-28) mmol/L ABG O2 Saturation (95-98) % ABG Base Excess (-2.0-3.0) mmol/L ABG Hemoglobin (11.7-17.4) g/dL ABG Carboxyhemoglobin (0.5-1.5) % POC ABG HHb (Measured) (0.0-5.0) % ABG Methemoglobin (0.0-3.0) % Rei Test A-a O2 Difference mm/Hg Respiratory Index Hgb O2 Saturation (95.0-98.0) % Vent Mode Mechanical Rate FiO2 % Tidal Volume PEEP Sodium 146 (132-148) mmol/L Potassium 3.3 L (3.6-5.2) mmol/L Chloride 110 H (98-107) mmol/L Carbon Dioxide 21 L (22-30) mmol/L Anion Gap 18 (10-20) BUN 65 H (9-20) mg/dL Creatinine 2.8 H (0.8-1.5) mg/dL Est GFR ( Amer) 28 Est GFR (Non-Af Amer) 23 Random Glucose 209 H (75-110) mg/dL Serum Osmolality (272-300) mosm/kg Calcium 8.2 L (8.6-10.4) mg/dl Phosphorus 3.1 (2.5-4.5) mg/dL Magnesium 2.6 H (1.6-2.3) mg/dL Total Bilirubin 0.8 (0.2-1.3) mg/dL AST 92 H (17-59) U/L ALT 52 (21-72) U/L Alkaline Phosphatase 120 (38-126) U/L Total Protein 6.5 (6.3-8.3) g/dL Albumin 3.1 L (3.5-5.0) g/dL Globulin 3.4 (2.2-3.9) gm/dL Albumin/Globulin Ratio 0.9 L (1.0-2.1) Urine Color (YELLOW) Urine Clarity (Clear) Urine pH (5.0-8.0) Ur Specific [place] (1.003-1.030) Urine Protein (NEGATIVE) mg/dL Urine Glucose (UA) (Normal) mg/dL Urine Ketones (NEGATIVE) mg/dL Urine Blood (NEGATIVE) Urine Nitrate (NEGATIVE) Urine Bilirubin (NEGATIVE) Urine Urobilinogen (0.2-1.0) mg/dL Ur Leukocyte Esterase (Negative) Marina/uL Urine WBC (Auto) (0-5) /hpf Urine RBC (Auto) (0-3) /hpf Ur Squamous Epith Cells (0-5) /hpf Laboratory Results - last 24 hr 08/15/18 08/15/18 08/15/18 04:42 04:42 05:28 WBC 6.5 RBC 4.03 L Hgb 9.9 L Hct 31.7 L MCV 78.8 L MCH 24.6 L MCHC 31.2 L RDW 21.1 H Plt Count 88 L MPV 9.5 Neut % (Auto) 76.8 H Lymph % (Auto) 6.6 L [place] % (Auto) 16.4 H Eos % (Auto) 0.0 Baso % (Auto) 0.2 Neut # (Auto) 5.0 Lymph # (Auto) 0.4 L [place] # (Auto) 1.1 H Eos # (Auto) 0.0 Baso # (Auto) 0.0 Neutrophils % (Manual) 78 H Band Neutrophils % 4 H Lymphocytes % (Manual) 5 L Monocytes % (Manual) 13 H Platelet Estimate Decreased L Hypochromasia (manual) Slight Anisocytosis (manual) Moderate Puncture Site Rb pCO2 31 L pO2 106 H HCO3 23.5 ABG pH 7.45 ABG Total CO2 22.5 ABG O2 Saturation 99.4 H ABG Base Excess -1.9 ABG Hemoglobin 9.4 L ABG Carboxyhemoglobin 1.9 H POC ABG HHb (Measured) 0.6 ABG Methemoglobin 1.0 Rei Test Na A-a O2 Difference 69.0 Respiratory Index 0.7 Hgb O2 Saturation 96.4 Vent Mode Prvc Mechanical Rate 15 FiO2 30.0 Tidal Volume 500 PEEP 5 Sodium 146 Potassium 3.3 L Chloride 110 H Carbon Dioxide 21 L Anion Gap 18 BUN 65 H Creatinine 2.8 H Est GFR ( Amer) 28 Est GFR (Non-Af Amer) 23 Random Glucose 209 H Serum Osmolality Calcium 8.2 L Phosphorus 3.1 Magnesium 2.6 H Total Bilirubin 0.8 AST 92 H ALT 52 Alkaline Phosphatase 120 Total Protein 6.5 Albumin 3.1 L Globulin 3.4 Albumin/Globulin Ratio 0.9 L Urine Color Urine Clarity Urine pH Ur Specific [place] Urine Protein Urine Glucose (UA) Urine Ketones Urine Blood Urine Nitrate Urine Bilirubin Urine Urobilinogen Ur Leukocyte Esterase Urine WBC (Auto) Urine RBC (Auto) Ur Squamous Epith Cells 08/15/18 08/15/18 13:19 13:28 WBC RBC Hgb Hct MCV MCH MCHC RDW Plt Count MPV Neut % (Auto) Lymph % (Auto) [place] % (Auto) Eos % (Auto) Baso % (Auto) Neut # (Auto) Lymph # (Auto) [place] # (Auto) Eos # (Auto) Baso # (Auto) Neutrophils % (Manual) Band Neutrophils % Lymphocytes % (Manual) Monocytes % (Manual) Platelet Estimate Hypochromasia (manual) Anisocytosis (manual) Puncture Site pCO2 pO2 HCO3 ABG pH ABG Total CO2 ABG O2 Saturation ABG Base Excess ABG Hemoglobin ABG Carboxyhemoglobin POC ABG HHb (Measured) ABG Methemoglobin Rei Test A-a O2 Difference Respiratory Index Hgb O2 Saturation Vent Mode Mechanical Rate FiO2 Tidal Volume PEEP Sodium Potassium Chloride Carbon Dioxide Anion Gap BUN Creatinine Est GFR ( Amer) Est GFR (Non-Af Amer) Random Glucose Serum Osmolality 334 H Calcium Phosphorus Magnesium Total Bilirubin AST ALT Alkaline Phosphatase Total Protein Albumin Globulin Albumin/Globulin Ratio Urine Color Yellow Urine Clarity Clear Urine pH 6.0 Ur Specific [place] 1.016 Urine Protein Negative Urine Glucose (UA) Normal Urine Ketones Negative Urine Blood 2+ H Urine Nitrate Negative Urine Bilirubin Negative Urine Urobilinogen Normal Ur Leukocyte Esterase Neg Urine WBC (Auto) 4 Urine RBC (Auto) 19 H Ur Squamous Epith Cells < 1 Radiology Impressions: Radiology Impressions Chest X-Ray 08/15/18 06:00 IMPRESSION: Worsening bilateral airspace infiltrates. Concomitant worsening pulmonary venous congestion-as detailed above. Similar small left pleural effusion. Interval increase right pleural effusion. Additional findings as above. Endotracheal tube and nasogastric tube courses appear satisfactory. Fingerstick Blood Sugar Results: 198 Review of Systems - Review of Systems All systems: reviewed and no additional remarkable complaints except Assessment/Plan - Assessment and Plan (Free Text) Assessment: Pulm Hypoxic respiratory failure, COPD -Intubated 08/12, PRVC. FiO2 30% -Solumedrol 40 mg IV daily -Sputum cx NEGATIVE - final -Zosyn 2.25 daily for renal dosing Cardio -SVT resolved, NSR on monitor HR 80s -D/w patient possible need for ablation outpatient Neuro AMS, DTs -Continue to monitor -Precedex -Monitor -Ativan 1mg IV given once for increased agitation Endo -Anion gap metablic acidosis - DKA vs uremia vs lactic acidosis vs various causes -AG 15 -Continue to monitor ID Sepsis, strep bacteremia -ID consutled, Dr. Moss -Blood cx - Group G strep -cont zosyn -f/u repeat blood cultures -Monitor vitals Ppx -Heparin SCC Q8 -Precedex Objective - Vital Signs/Intake and Output Vital Signs (last 24 hours): Temp Pulse Resp BP Pulse Ox 97.4 F L 89 31 H 147/86 100 08/15/18 20:00 08/15/18 23:00 08/15/18 23:00 08/15/18 22:56 08/15/18 23:00 Intake and Output: 08/15/18 08/16/18 18:59 06:59 Intake Total 923.9 341.9 Output Total 760 350 Balance 163.9 -8.1 - Medications Medications: Current Medications Albuterol/Ipratropium (Duoneb 3 Mg/0.5 Mg (3 Ml) Ud) 3 ml INH RQ4 [facility] Last Admin: 08/15/18 20:01 Dose: 3 ml Famotidine (Pepcid) 20 mg IVP DAILY [facility] Last Admin: 08/15/18 09:08 Dose: 20 mg Heparin Sodium (Porcine) (Heparin) 5,000 units SC Q8 [facility] Last Admin: 08/15/18 20:59 Dose: 5,000 units Piperacillin Sod/Tazobactam (Sod 2.25 gm/ Sodium Chloride) 100 mls @ 200 mls/hr IVPB Q8H [facility]; Protocol Last Admin: 08/15/18 23:34 Dose: 200 mls/hr Dexmedetomidine HCl 400 mcg/ (Sodium Chloride) 100 mls @ 28.67 mls/hr IV TITR PRN; Protocol Last Admin: 08/15/18 23:33 Dose: 1.2 mcg/kg/hr, 24.57 mls/hr Insulin Human Regular (Novolin R) 0 unit SC Q6 [facility]; Protocol Last Admin: 08/15/18 18:06 Dose: 2 unit Methylprednisolone (Solu-Medrol) 40 mg IVP DAILY [facility] Last Admin: 08/15/18 09:08 Dose: 40 mg Multivitamins/Vitamin C (Multi-Delyn Liquid) 5 ml PO DAILY [facility] Last Admin: 08/15/18 09:09 Dose: 5 ml - Labs Labs: 08/15/18 04:42 08/15/18 04:42
[2018-08-16] MEDS: (Novolin R) Insulin Human Regular 100 units/ml vial SC SCH ×5 (00:16→23:30)
[2018-08-16] MEDS: Albuterol-Ipratrop 3 mg / 0.5 (3 ml) UD INH SCH ×6 (00:45→19:39)
[2018-08-16] MEDS: Dexmedetomidine Hydrochloride 400 MCG in Sodium Chloride 0.9% 96 ML IV PRN ×3 (03:31→20:29)
[2018-08-16 05:22] LABS: ARTERIAL BLOOD GAS HCO3 24.5 mmol/L (21-28); ARTERIAL BLOOD GAS HEMOGLOBIN 9.2 g/dL (11.7-17.4); ARTERIAL BLOOD GAS O2 SAT 99.5 % (95-98); ARTERIAL BLOOD GAS PCO2 31 mm/Hg (35-45); ARTERIAL BLOOD GAS PH 7.47 (7.35-7.45); ARTERIAL BLOOD GAS PO2 99 mm/Hg (80-100); ARTERIAL BLOOD GAS TCO2 23.6 mmol/L (22-28)
[2018-08-16 05:51] LABS: BASO % 0.1 % (0.0-2.0); HEMOGLOBIN 9.1 g/dL (12.0-18.0); LYMPH # 0.9 K/uL (1.0-4.3); LYMPH % 11.9 % (20.0-40.0); MEAN CELL VOLUME 78.6 fL (80.0-94.0); MEAN CORPUSCULAR HEMOGLOBIN 24.8 pg (27.0-31.0); MEAN CORPUSCULAR HGB CONC 31.6 g/dL (33.0-37.0); MEAN PLATELET VOLUME 9.6 fL (7.2-11.7); MONO % 27.4 % (0.0-10.0); NEUT # 4.5 K/uL (1.8-7.0); NEUT % 60.6 % (50.0-75.0); NRBC % 0.3 % (0.0-2.0); PLATELET COUNT 90 K/uL (130-400); RBC 3.66 Mil/uL (4.40-5.90); RED CELL DISTRIBUTION WIDTH 21.1 % (11.5-14.5); WHITE BLOOD COUNT 7.4 K/uL (4.8-10.8)
[2018-08-16 06:09] LABS: ALBUMIN 2.8 g/dL (3.5-5.0); CALCIUM 8.1 mg/dl (8.6-10.4)
[2018-08-16 06:10] LABS: ALB/GLOB RATIO 0.8 (1.0-2.1)
--- NOTE | 2018-08-16 06:15 | PN ---
DATE: 08/16/2018 SUBJECTIVE: The patient is on ventilator and he is less short of breath, less distress, better oxygenation. No arrhythmia. PHYSICAL EXAMINATION: VITAL SIGNS: Blood pressure 147/86, pulse 89, respiratory rate 20, temperature 98. LUNGS: Bilateral rales. CARDIOVASCULAR SYSTEM: S1 and S2, regular. ABDOMEN: Soft. ASSESSMENT: 1. Congestive heart failure. 2. Pneumonia. 3. Alcohol withdrawal, delirium tremens. 4. 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 PLAN: Continue current medications. Attempt weaning once the patient is more stable. Chino Cheung MD
[2018-08-16] MEDS: Piperacillin/Tazobact 2.25 GM in Sodium Chloride 100 ML IVPB SCH ×3 (07:10→23:35)
--- NOTE | 2018-08-16 07:45 | CP.PCM.PN ---
<Jose Guadalupe Eduardo - Last Filed: 08/16/18 14:50> Subjective - Date & Time of Evaluation Date of Evaluation: 08/16/18 Time of Evaluation: 09:00 - Subjective Subjective: Nephro Progress Note for Dr. Lucas Service Jose Guadalupe Eduardo DO, IM PGY-3 Patient seen and examined at bedside in ICU. Remains intubated, on PRVC at 30% FiO2, sedated on precedex drip (but less than before). No acute events reported overnight. Today, Cr improved from 2.8 to 2.4, continues to put out increasing urine via gay (~1.8L yesterday, ~1.6 day days prior). Undergoing 24hr urine collection for urine studies. Objective - Vital Signs/Intake and Output Vital Signs (last 24 hours): Temp Pulse Resp BP Pulse Ox 98.5 F 55 L 19 146/80 100 08/16/18 04:00 08/16/18 07:00 08/16/18 07:00 08/16/18 06:55 08/16/18 07:00 Intake and Output: 08/16/18 08/16/18 06:59 18:59 Intake Total 1061.7 Output Total 1000 Balance 61.7 - Medications Medications: Current Medications Albuterol/Ipratropium (Duoneb 3 Mg/0.5 Mg (3 Ml) Ud) 3 ml INH RQ4 [facility] Last Admin: 08/16/18 04:57 Dose: 3 ml Famotidine (Pepcid) 20 mg IVP DAILY [facility] Last Admin: 08/15/18 09:08 Dose: 20 mg Heparin Sodium (Porcine) (Heparin) 5,000 units SC Q8 [facility] Last Admin: 08/16/18 05:30 Dose: 5,000 units Piperacillin Sod/Tazobactam (Sod 2.25 gm/ Sodium Chloride) 100 mls @ 200 mls/hr IVPB Q8H [facility]; Protocol Last Admin: 08/16/18 07:10 Dose: 200 mls/hr Dexmedetomidine HCl 400 mcg/ (Sodium Chloride) 100 mls @ 28.67 mls/hr IV TITR PRN; Protocol Last Titration: 08/16/18 05:00 Dose: 0.5 mcg/kg/hr, 10.24 mls/hr Insulin Human Regular (Novolin R) 0 unit SC Q6 [facility]; Protocol Last Admin: 08/16/18 05:30 Dose: Not Given Methylprednisolone (Solu-Medrol) 40 mg IVP DAILY [facility] Last Admin: 08/15/18 09:08 Dose: 40 mg Multivitamins/Vitamin C (Multi-Delyn Liquid) 5 ml PO DAILY [facility] Last Admin: 08/15/18 09:09 Dose: 5 ml - Labs Labs: 08/16/18 05:41 08/16/18 05:41 - Additional Findings Additional findings: - Constitutional Appears: Chronically Ill, intubated and sedated with precedex, not acutely distressed/agitated - Head Exam Head Exam: ATRAUMATIC, NORMOCEPHALIC - Eye Exam Eye Exam: Normal appearance. absent: Conjunctival injection, Scleral icterus Pupil Exam: absent: Irregular, Unequal - ENT Exam ENT Exam: Mucous Membranes Moist ETT in place, secured at lips by securement device NGT in place, secured with tegaderm - Neck Exam Neck exam: Negative for: Thyromegaly - Respiratory Exam intubated and ventilated, on 30% FiO2, overbreathing the ventilator, no accessory muscle or abdominal breathing appreciated - Cardiovascular Exam Cardiovascular Exam: RRR, +S1, +S2. absent: Bradycardia, Tachycardia, Diastolic murmur, Irregular Rhythm, JVD, +S4 - GI/Abdominal Exam GI & Abdominal Exam: Diminished Bowel Sounds. absent: Distended, Firm, Hype ractive Bowel Sounds, Hypoactive Bowel Sounds, Rigid - Extremities Exam Extremities exam: Positive for: pedal edema (trace pedal edema in bilateral ankles), pedal pulses present, wearing bilateral hand mitts - Neurological Exam sedated on precedex, arousable but not following commands, non-verbal due to intubation - Psychiatric Exam sedated on precedex, mildly agitated when aroused but rapidly returns to s omnolence - Skin Skin Exam: Dry, Intact, Normal Color, Warm Assessment and Plan - Assessment and Plan (Free Text) Assessment: This is a 57 yo M with PMH of ETOH abuse, Liver Cirrhosis, 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 Later became hypotensive and further altered, requiring intubation and ICU placement for close monitoring and care. Nephro was consulted for RAMIREZ/Acute renal failure. Plan: 1) Acute renal failure 2) Chronic EtOH abuse, undergoing withdrawal 3) Cirrhosis, likely 2/2 EtOH 4) Hypotension - resolved 5) Sepsis (source unclear) on empiric abx 6) Hypoxic respiratory failure requiring intubation 7) Hypernatremia -Acute renal failure, Cr maxed at 3, improved from 2.8 to 2.4 today Ddx: ATN vs 2/2 substances (high osmolar gap without anion gap, isopropyl?) vs sepsis, less likely hepatorenal Renal/bladder US obtained, negative for hydronephrosis, negative for obstructive pathology May be component (contributory, not causative) due to elevated vanco levels after 3x doses, off vanco now Repeat Urine/serum osms, Urine Na/Cr, 24hr Protein, Spot protein, Urine Micro scopy ordered, f/u Continue to monitor daily Cr Maintain gay given hx urethral strictures -Hypernatremic today at 149, was hyponatremic to 127 on arrival but has continuously been increasing since arrival (135 -> 139 -> 146 -> 149) May be due to high salt load from Zosyn vs dehydration (not on IVF x several days, BUN continuously increasing) Can consider starting light hydration and reassessing tomorrow AM -increased bilateral patchy infiltrated on CXR today, but paO2 on abg continues to be > 90, so less likely fluid overload -Continue abx as per ID, currently on Zosyn -Avoid nephrotoxic agents as possible Seen, reviewed, and discussed with attending, Dr. Lucas. <Tony Lucas - Last Filed: 08/17/18 06:18> Objective - Vital Signs/Intake and Output Vital Signs (last 24 hours): Temp Pulse Resp BP Pulse Ox 96.6 F L 56 L 21 141/74 100 08/17/18 04:00 08/17/18 04:08 08/17/18 04:08 08/17/18 04:08 08/17/18 04:08 Intake and Output: 08/16/18 08/17/18 18:59 06:59 Intake Total 1203.9 1538.0 Output Total 1300 1000 Balance -96.1 538.0 - Medications Medications: Current Medications Albuterol/Ipratropium (Duoneb 3 Mg/0.5 Mg (3 Ml) Ud) 3 ml INH RQ4 [facility] Last Admin: 08/17/18 05:10 Dose: 3 ml Famotidine (Pepcid) 20 mg IVP DAILY [facility] Last Admin: 08/16/18 09:10 Dose: 20 mg Heparin Sodium (Porcine) (Heparin) 5,000 units SC Q8 [facility] Last Admin: 08/16/18 21:07 Dose: 5,000 units Dexmedetomidine HCl 400 mcg/ (Sodium Chloride) 100 mls @ 28.67 mls/hr IV TITR PRN; Protocol Last Titration: 08/17/18 04:52 Dose: 1 mcg/kg/hr, 20.48 mls/hr Sodium Chloride (Sodium Chloride 0.45%) 1,000 mls @ 60 mls/hr IV .[id number] [facility] Last Admin: 08/17/18 02:30 Dose: Not Given Ceftriaxone Sodium 1 gm/ (Sodium Chloride) 100 mls @ 100 mls/hr IVPB Q12H [facility]; Protocol Last Admin: 08/17/18 00:40 Dose: 100 mls/hr Insulin Human Regular (Novolin R) 0 unit SC Q6 [facility]; Protocol Last Admin: 08/16/18 23:30 Dose: Not Given Methylprednisolone (Solu-Medrol) 40 mg IVP DAILY [facility] Last Admin: 08/16/18 09:10 Dose: 40 mg Multivitamins/Vitamin C (Multi-Delyn Liquid) 5 ml PO DAILY [facility] Last Admin: 08/16/18 09:10 Dose: 5 ml - Labs Labs: 08/16/18 05:41 08/16/18 18:39 Attending/Attestation - Attestation I have personally seen and examined this patient.: Yes I have fully participated in the care of the patient.: Yes I have reviewed all pertinent clinical information, including history, physical exam and plan: Yes Notes (Text): Patient seen and examined; I agree with the resident's note as above with the following additions/edits: Patient with pmh of ETOH abuse, Liver Cirrhosis, 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
--- NOTE | 2018-08-16 07:57 | RAD ---
Date of service: 08/16/2018 HISTORY: vented COMPARISON: No prior. TECHNIQUE: 1 view obtained. FINDINGS: LUNGS: Endotracheal and orogastric tubes do not appear significantly changed in position. Patchy bilateral infiltrates appears somewhat increased at the bilateral upper lung zones and otherwise appear unchanged. PLEURA: Small left pleural effusion is likely, borderline at the right. No pneumothorax bilaterally. CARDIOVASCULAR: No aortic atherosclerotic calcification present. Stable cardiac size. Pulmonary vascular congestion appears mildly improved. OSSEOUS STRUCTURES: No significant abnormalities. VISUALIZED UPPER ABDOMEN: Normal. OTHER FINDINGS: None. IMPRESSION: Mild improvement in pulmonary vascular congestion. Interval increase in bilateral patchy pulmonary infiltrates, particularly at the bilateral upper lung zones. Continued clinical and radiographic monitoring advised. Tubes and catheters appear stable.
[2018-08-16 08:42] LABS: BANDS 5 % (0-2); LYMPHOCYTE 12 % (20-40); MONOCYTE 24 % (0-10); NEUTROPHIL 57 % (50-75); NUCLEATED RED BLOOD CELL 1 % (0-0); PLATELET ESTIMATE DECREASED (NORMAL); REACTIVE LYMPHOCYTES 2 % (0-0); TOTAL CELLS COUNTED 100
[2018-08-16 08:43] LABS: ANISOCYTOSIS SLIGHT; GIANT PLATELETS PRESENT; HYPOCHROMIC SLIGHT; POIKILOCYTOSIS SLIGHT; TARGET CELLS SLIGHT; TOXIC GRANULATION PRESENT
[2018-08-16] MEDS: Multiple Vitamins Oral Solution PO SCH (09:10)
[2018-08-16] MEDS: MethylPREDNISolone 40 mg Vial IVP SCH (09:10)
[2018-08-16] MEDS: Sodium Chloride 0.45% 1,000 ML IV SCH (09:43)
--- NOTE | 2018-08-16 10:52 | CP.PCM.PN ---
<Anamaria Garza - Last Filed: 08/16/18 16:56> Subjective - Date & Time of Evaluation Date of Evaluation: 08/16/18 Time of Evaluation: 10:30 - Subjective Subjective: Cardiology Progress Note for Dr. Callahan Patient seen and examined at bedside. No overnight events reported. On CPAP trial during exam. Patient denies any chest pain or palpitations with a head nod. He is pointing to his NG tube and ET because he wants it removed. Objective - Vital Signs/Intake and Output Vital Signs (last 24 hours): Temp Pulse Resp BP Pulse Ox 98.3 F 62 15 145/80 100 08/16/18 08:00 08/16/18 10:00 08/16/18 10:00 08/16/18 09:55 08/16/18 10:00 Intake and Output: 08/16/18 08/16/18 06:59 18:59 Intake Total 1061.7 240.6 Output Total 1000 325 Balance 61.7 -84.4 - Medications Medications: Current Medications Albuterol/Ipratropium (Duoneb 3 Mg/0.5 Mg (3 Ml) Ud) 3 ml INH RQ4 [facility] Last Admin: 08/16/18 08:07 Dose: 3 ml Famotidine (Pepcid) 20 mg IVP DAILY [facility] Last Admin: 08/16/18 09:10 Dose: 20 mg Heparin Sodium (Porcine) (Heparin) 5,000 units SC Q8 [facility] Last Admin: 08/16/18 05:30 Dose: 5,000 units Piperacillin Sod/Tazobactam (Sod 2.25 gm/ Sodium Chloride) 100 mls @ 200 mls/hr IVPB Q8H [facility]; Protocol Last Admin: 08/16/18 07:10 Dose: 200 mls/hr Dexmedetomidine HCl 400 mcg/ (Sodium Chloride) 100 mls @ 28.67 mls/hr IV TITR PRN; Protocol Last Titration: 08/16/18 10:20 Dose: 0.4 mcg/kg/hr, 8.19 mls/hr Sodium Chloride (Sodium Chloride 0.45%) 1,000 mls @ 60 mls/hr IV .[id number] [facility] Last Admin: 08/16/18 09:43 Dose: 60 mls/hr Insulin Human Regular (Novolin R) 0 unit SC Q6 [facility]; Protocol Last Admin: 08/16/18 05:30 Dose: Not Given Methylprednisolone (Solu-Medrol) 40 mg IVP DAILY [facility] Last Admin: 08/16/18 09:10 Dose: 40 mg Multivitamins/Vitamin C (Multi-Delyn Liquid) 5 ml PO DAILY [facility] Last Admin: 08/16/18 09:10 Dose: 5 ml - Labs Labs: 08/16/18 05:41 08/16/18 05:41 - Additional Findings Additional findings: - Additional Findings Additional findings: - Constitutional Appears: Chronically Ill, intubated and sedated with precedex, not acutely distressed/agitated - Head Exam Head Exam: ATRAUMATIC, NORMOCEPHALIC - Eye Exam Eye Exam: Normal appearance. absent: Conjunctival injection, Scleral icterus Pupil Exam: absent: Irregular, Unequal - ENT Exam ENT Exam: Mucous Membranes Moist ETT in place, secured at lips by securement device NGT in place, secured with tegaderm - Neck Exam Neck exam: Negative for: Thyromegaly - Respiratory Exam intubated and ventilated, on 30% FiO2, overbreathing the ventilator, no accessory muscle or abdominal breathing appreciated - Cardiovascular Exam Cardiovascular Exam: RRR, +S1, +S2. absent: Bradycardia, Tachycardia, Diastolic murmur, Irregular Rhythm, JVD, +S4 - GI/Abdominal Exam GI & Abdominal Exam: Diminished Bowel Sounds. absent: Distended, Firm, Hyperactive Bowel Sounds, Hypoactive Bowel Sounds, Rigid - Extremities Exam Extremities exam: Positive for: pedal edema (+1), pedal pulses present, wearing bilateral hand mitts - Neurological Exam Awake and Alert, Normal Affect. - Psychiatric Exam Normal Affect, Normal Mood. 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 Later became hypotensive and further altered, requiring intubation and ICU placement for close monitoring and care. Cardiology Consulted for evaluation and treatment of ACS/CHF. Plan: HFpEF (EtoH Cardiomyopathy), ACS SVT Resolved. ECHO (08/11/18): Mildly dilated LV, Grade I diastolic Dysfunction, elevated atrial pressure. Mild - Moderate bi-atrial anlargement, Migral annular calcifications. RVSP=51mmHG, compatible w/ moderate pulm. htn. Labs: BNP(Adm) - 68951 Mgmt: Continue Medical Mgmt. Heparin 5000 Q[address] Patient discussed with Dr[address] [place] Garza, PGY-2 <Pancho Callahan - Last Filed: 08/16/18 23:07> Objective - Vital Signs/Intake and Output Vital Signs (last 24 hours): Temp Pulse Resp BP Pulse Ox 97.7 F 73 24 139/76 100 08/16/18 20:00 08/16/18 22:08 08/16/18 22:08 08/16/18 22:08 08/16/18 22:08 Intake and Output: 08/16/18 08/17/18 18:59 06:59 Intake Total 1203.9 533.3 Output Total 1300 350 Balance -96.1 183.3 - Medications Medications: Current Medications Albuterol/Ipratropium (Duoneb 3 Mg/0.5 Mg (3 Ml) Ud) 3 ml INH RQ4 [facility] Last Admin: 08/16/18 19:39 Dose: 3 ml Famotidine (Pepcid) 20 mg IVP DAILY [facility] Last Admin: 08/16/18 09:10 Dose: 20 mg Heparin Sodium (Porcine) (Heparin) 5,000 units SC Q8 [facility] Last Admin: 08/16/18 21:07 Dose: 5,000 units Piperacillin Sod/Tazobactam (Sod 2.25 gm/ Sodium Chloride) 100 mls @ 200 mls/hr IVPB Q8H [facility]; Protocol Last Admin: 08/16/18 15:45 Dose: 200 mls/hr Dexmedetomidine HCl 400 mcg/ (Sodium Chloride) 100 mls @ 28.67 mls/hr IV TITR PRN; Protocol Last Titration: 08/16/18 22:09 Dose: 1.4 mcg/kg/hr, 28.67 mls/hr Sodium Chloride (Sodium Chloride 0.45%) 1,000 mls @ 60 mls/hr IV .[id number] [facility] Last Admin: 08/16/18 09:43 Dose: 60 mls/hr Insulin Human Regular (Novolin R) 0 unit SC Q6 [facility]; Protocol Last Admin: 08/16/18 17:54 Dose: Not Given Methylprednisolone (Solu-Medrol) 40 mg IVP DAILY [facility] Last Admin: 08/16/18 09:10 Dose: 40 mg Multivitamins/Vitamin C (Multi-Delyn Liquid) 5 ml PO DAILY [facility] Last Admin: 08/16/18 09:10 Dose: 5 ml - Labs Labs: 08/16/18 05:41 08/16/18 18:39 Assessment and Plan - Assessment and Plan (Free Text) Plan: Patient seen and evaluated personally by me. Plan of care d/w the medical sociologist and as documented
[2018-08-16] MEDS ORDERED: Etomidate 20 mg/10ml Inj IV ONE (12:52)
--- NOTE | 2018-08-16 14:26 | CP.CCUPN ---
<Charbel Steinberg - Last Filed: 08/16/18 14:27> CCU Subjective - Physician Review Subjective (Free Text): 08/14/18 14:46 PGY-1 Critical Care Progress Note for Dr. Shields Patient seen and examined at bedside. No acute events overnight. Patient extubated and re-intubated for worsening respiratory distress on vent. CCU Objective - Vital Signs / Intake & Output Vital Signs (Last 4 hours): Vital Signs Temp Pulse Resp BP Pulse Ox 08/16/18 14:00 57 L 23 100 08/16/18 13:08 63 24 148/82 100 08/16/18 13:00 57 L 23 100 08/16/18 12:09 95 H 16 141/88 98 08/16/18 12:00 97 F L 112 H 18 100 08/16/18 11:56 95 H 19 176/89 H 61 L 08/16/18 11:00 74 15 100 08/16/18 10:55 67 21 145/77 100 Intake and Output (Last 8hrs): Intake & Output 08/15/18 08/16/18 08/16/18 22:59 06:59 14:59 Intake Total 591.9 780.1 677.6 Output Total 585 730 875 Balance 6.9 50.1 -197.4 Weight 176 lb Intake: IV 100 140 60 Intake, IV Amount 171.9 280.1 377.6 Left Wrist 100 Right Forearm 300 Right Hand 171.9 180.1 77.6 Tube Feeding 320 360 240 Output: Urine 585 730 875 Urethral ([place]) [phone] Other: # Bowel Movements 1 1 - Physical Exam Head: Positive for: Atraumatic, Normocephalic Respiratory/Chest: Positive for: Good Air Exchange, Other (intubated, on vent). Negative for: Accessory Muscle Use Cardiovascular: Positive for: Normal S1, S2, Tachycardic Abdomen: Positive for: Normal Bowel Sounds Lower Extremity: Positive for: Normal Inspection Neurological: Negative for: GCS=15, Speech Normal - Medications Active Medications: Active Medications Generic Name Dose Route Start Last Admin Trade Name Freq PRN Reason Stop Dose Admin Albuterol/Ipratropium 3 ml 08/12/18 20:00 08/16/18 14:11 Duoneb 3 Mg/0.5 Mg (3 Ml) Ud INH 3 ml RQ4 ASHLEIGH Administration Famotidine 20 mg 08/11/18 10:00 08/16/18 09:10 Pepcid IVP 20 mg DAILY ASHLEIGH Administration Heparin Sodium (Porcine) 5,000 units 08/13/18 14:00 08/16/18 13:52 Heparin SC 5,000 units Q8 ASHLEIGH Administration Piperacillin Sod/Tazobactam 100 mls @ 200 mls/hr 08/14/18 08:00 08/16/18 07:10 Sod 2.25 gm/ Sodium Chloride IVPB 200 mls/hr Q8H ASHLEIGH Administration Protocol Dexmedetomidine HCl 400 mcg/ 100 mls @ 28.67 mls/hr 08/15/18 23:14 08/16/18 14:08 Sodium Chloride IV 0.4 mcg/kg/hr TITR PRN 8.19 mls/hr Administration Protocol 1.4 MCG/KG/HR Sodium Chloride 1,000 mls @ 60 mls/hr 08/16/18 09:45 08/16/18 09:43 Sodium Chloride 0.45% IV 60 mls/hr .[id number] ASHLEIGH Administration Insulin Human Regular 0 unit 08/13/18 00:00 08/16/18 12:41 Novolin R SC Not Given Q6 ASHLEIGH Protocol Methylprednisolone 40 mg 08/14/18 10:00 08/16/18 09:10 Solu-Medrol IVP 40 mg DAILY ASHLEIGH Administration Multivitamins/Vitamin C 5 ml 08/11/18 10:00 08/16/18 09:10 Multi-Delyn Liquid PO 5 ml DAILY ASHLEIGH Administration - Patient Studies Lab Studies: Microbiology Studies 08/15/18 04:42 Blood Culture - Preliminary Blood NO GROWTH AFTER 24 HOURS 08/15/18 04:42 Blood Culture - Preliminary Blood NO GROWTH AFTER 24 HOURS Lab Studies 08/16/18 08/16/18 08/16/18 Range/Units 05:41 05:41 05:27 WBC 7.4 (4.8-10.8) K/uL RBC 3.66 L (4.40-5.90) Mil/uL Hgb 9.1 L (12.0-18.0) g/dL Hct 28.8 L (35.0-51.0) % MCV 78.6 L (80.0-94.0) fL MCH 24.8 L (27.0-31.0) pg MCHC 31.6 L (33.0-37.0) g/dL RDW 21.1 H (11.5-14.5) % Plt Count 90 L (130-400) K/uL MPV 9.6 (7.2-11.7) fL Neut % (Auto) 60.6 (50.0-75.0) % Lymph % (Auto) 11.9 L (20.0-40.0) % [place] % (Auto) 27.4 H (0.0-10.0) % Eos % (Auto) 0.0 (0.0-4.0) % Baso % (Auto) 0.1 (0.0-2.0) % Neut # (Auto) 4.5 (1.8-7.0) K/uL Lymph # (Auto) 0.9 L (1.0-4.3) K/uL [place] # (Auto) 2.0 H (0.0-0.8) K/uL Eos # (Auto) 0.0 (0.0-0.7) K/uL Baso # (Auto) 0.0 (0.0-0.2) K/uL Neutrophils % (Manual) 57 (50-75) % Band Neutrophils % 5 H (0-2) % Lymphocytes % (Manual) 12 L (20-40) % Reactive Lymphs % 2 H (0-0) % Monocytes % (Manual) 24 H (0-10) % Nucleated RBC % 1 H (0-0) % Toxic Granulation Present Platelet Estimate Decreased L (NORMAL) Giant Platelets Present Hypochromasia (manual) Slight Poikilocytosis (manual Slight Anisocytosis (manual) Slight Target Cells Slight Puncture Site pCO2 (35-45) mm/Hg pO2 (80-100) mm/Hg HCO3 (21-28) mmol/L ABG pH (7.35-7.45) ABG Total CO2 (22-28) mmol/L ABG O2 Saturation (95-98) % ABG Base Excess (-2.0-3.0) mmol/L ABG Hemoglobin (11.7-17.4) g/dL ABG Carboxyhemoglobin (0.5-1.5) % POC ABG HHb (Measured) (0.0-5.0) % ABG Methemoglobin (0.0-3.0) % Rei Test A-a O2 Difference mm/Hg Respiratory Index Hgb O2 Saturation (95.0-98.0) % Vent Mode Mechanical Rate FiO2 % Tidal Volume PEEP Sodium 149 H (132-148) mmol/L Potassium 3.6 (3.6-5.2) mmol/L Chloride 117 H (98-107) mmol/L Carbon Dioxide 21 L (22-30) mmol/L Anion Gap 15 (10-20) BUN 72 H (9-20) mg/dL Creatinine 2.4 H (0.8-1.5) mg/dL Est GFR ( Amer) 34 Est GFR (Non-Af Amer) 28 POC Glucose (mg/dL) 171 H (65-110) mg/dL Random Glucose 160 H D (75-110) mg/dL Calcium 8.1 L (8.6-10.4) mg/dl Phosphorus 3.2 (2.5-4.5) mg/dL Magnesium 2.5 H (1.6-2.3) mg/dL Total Bilirubin 1.0 (0.2-1.3) mg/dL AST 69 H D (17-59) U/L ALT 52 (21-72) U/L Alkaline Phosphatase 92 (38-126) U/L Total Protein 6.4 (6.3-8.3) g/dL Albumin 2.8 L (3.5-5.0) g/dL Globulin 3.5 (2.2-3.9) gm/dL Albumin/Globulin Ratio 0.8 L (1.0-2.1) Ethanolamine Toxicology Panel Methyl Alcohol Level Isopropanol Acetone Level 08/16/18 08/16/18 08/15/18 Range/Units 05:00 00:16 17:50 WBC (4.8-10.8) K/uL RBC (4.40-5.90) Mil/uL Hgb (12.0-18.0) g/dL Hct (35.0-51.0) % MCV (80.0-94.0) fL MCH (27.0-31.0) pg MCHC (33.0-37.0) g/dL RDW (11.5-14.5) % Plt Count (130-400) K/uL MPV (7.2-11.7) fL Neut % (Auto) (50.0-75.0) % Lymph % (Auto) (20.0-40.0) % [place] % (Auto) (0.0-10.0) % Eos % (Auto) (0.0-4.0) % Baso % (Auto) (0.0-2.0) % Neut # (Auto) (1.8-7.0) K/uL Lymph # (Auto) (1.0-4.3) K/uL [place] # (Auto) (0.0-0.8) K/uL Eos # (Auto) (0.0-0.7) K/uL Baso # (Auto) (0.0-0.2) K/uL Neutrophils % (Manual) (50-75) % Band Neutrophils % (0-2) % Lymphocytes % (Manual) (20-40) % Reactive Lymphs % (0-0) % Monocytes % (Manual) (0-10) % Nucleated RBC % (0-0) % Toxic Granulation Platelet Estimate (NORMAL) Giant Platelets Hypochromasia (manual) Poikilocytosis (manual Anisocytosis (manual) Target Cells Puncture Site Rb pCO2 31 L (35-45) mm/Hg pO2 99 (80-100) mm/Hg HCO3 24.5 (21-28) mmol/L ABG pH 7.47 H (7.35-7.45) ABG Total CO2 23.6 (22-28) mmol/L ABG O2 Saturation 99.5 H (95-98) % ABG Base Excess -0.6 (-2.0-3.0) mmol/L ABG Hemoglobin 9.2 L (11.7-17.4) g/dL ABG Carboxyhemoglobin 2.1 H (0.5-1.5) % POC ABG HHb (Measured) 0.5 (0.0-5.0) % ABG Methemoglobin 1.2 (0.0-3.0) % Rei Test Na A-a O2 Difference 76.0 mm/Hg Respiratory Index 0.8 Hgb O2 Saturation 96.2 (95.0-98.0) % Vent Mode Prvc Mechanical Rate 15 FiO2 30.0 % Tidal Volume 500 PEEP 5 Sodium (132-148) mmol/L Potassium (3.6-5.2) mmol/L Chloride (98-107) mmol/L Carbon Dioxide (22-30) mmol/L Anion Gap (10-20) BUN (9-20) mg/dL Creatinine (0.8-1.5) mg/dL Est GFR ( Amer) Est GFR (Non-Af Amer) POC Glucose (mg/dL) 146 H 205 H (65-110) mg/dL Random Glucose (75-110) mg/dL Calcium (8.6-10.4) mg/dl Phosphorus (2.5-4.5) mg/dL Magnesium (1.6-2.3) mg/dL Total Bilirubin (0.2-1.3) mg/dL AST (17-59) U/L ALT (21-72) U/L Alkaline Phosphatase (38-126) U/L Total Protein (6.3-8.3) g/dL Albumin (3.5-5.0) g/dL Globulin (2.2-3.9) gm/dL Albumin/Globulin Ratio (1.0-2.1) Ethanolamine Toxicology Panel Methyl Alcohol Level Isopropanol Acetone Level 08/15/18 08/15/18 08/14/18 Range/Units 11:17 05:19 23:30 WBC (4.8-10.8) K/uL RBC (4.40-5.90) Mil/uL Hgb (12.0-18.0) g/dL Hct (35.0-51.0) % MCV (80.0-94.0) fL MCH (27.0-31.0) pg MCHC (33.0-37.0) g/dL RDW (11.5-14.5) % Plt Count (130-400) K/uL MPV (7.2-11.7) fL Neut % (Auto) (50.0-75.0) % Lymph % (Auto) (20.0-40.0) % [place] % (Auto) (0.0-10.0) % Eos % (Auto) (0.0-4.0) % Baso % (Auto) (0.0-2.0) % Neut # (Auto) (1.8-7.0) K/uL Lymph # (Auto) (1.0-4.3) K/uL [place] # (Auto) (0.0-0.8) K/uL Eos # (Auto) (0.0-0.7) K/uL Baso # (Auto) (0.0-0.2) K/uL Neutrophils % (Manual) (50-75) % Band Neutrophils % (0-2) % Lymphocytes % (Manual) (20-40) % Reactive Lymphs % (0-0) % Monocytes % (Manual) (0-10) % Nucleated RBC % (0-0) % Toxic Granulation Platelet Estimate (NORMAL) Giant Platelets Hypochromasia (manual) Poikilocytosis (manual Anisocytosis (manual) Target Cells Puncture Site pCO2 (35-45) mm/Hg pO2 (80-100) mm/Hg HCO3 (21-28) mmol/L ABG pH (7.35-7.45) ABG Total CO2 (22-28) mmol/L ABG O2 Saturation (95-98) % ABG Base Excess (-2.0-3.0) mmol/L ABG Hemoglobin (11.7-17.4) g/dL ABG Carboxyhemoglobin (0.5-1.5) % POC ABG HHb (Measured) (0.0-5.0) % ABG Methemoglobin (0.0-3.0) % Rei Test A-a O2 Difference mm/Hg Respiratory Index Hgb O2 Saturation (95.0-98.0) % Vent Mode Mechanical Rate FiO2 % Tidal Volume PEEP Sodium (132-148) mmol/L Potassium (3.6-5.2) mmol/L Chloride (98-107) mmol/L Carbon Dioxide (22-30) mmol/L Anion Gap (10-20) BUN (9-20) mg/dL Creatinine (0.8-1.5) mg/dL Est GFR ( Amer) Est GFR (Non-Af Amer) POC Glucose (mg/dL) 191 H 198 H 237 H (65-110) mg/dL Random Glucose (75-110) mg/dL Calcium (8.6-10.4) mg/dl Phosphorus (2.5-4.5) mg/dL Magnesium (1.6-2.3) mg/dL Total Bilirubin (0.2-1.3) mg/dL AST (17-59) U/L ALT (21-72) U/L Alkaline Phosphatase (38-126) U/L Total Protein (6.3-8.3) g/dL Albumin (3.5-5.0) g/dL Globulin (2.2-3.9) gm/dL Albumin/Globulin Ratio (1.0-2.1) Ethanolamine Toxicology Panel Methyl Alcohol Level Isopropanol Acetone Level 08/14/18 08/14/18 08/14/18 Range/Units 18:17 11:26 05:55 WBC (4.8-10.8) K/uL RBC (4.40-5.90) Mil/uL Hgb (12.0-18.0) g/dL Hct (35.0-51.0) % MCV (80.0-94.0) fL MCH (27.0-31.0) pg MCHC (33.0-37.0) g/dL RDW (11.5-14.5) % Plt Count (130-400) K/uL MPV (7.2-11.7) fL Neut % (Auto) (50.0-75.0) % Lymph % (Auto) (20.0-40.0) % [place] % (Auto) (0.0-10.0) % Eos % (Auto) (0.0-4.0) % Baso % (Auto) (0.0-2.0) % Neut # (Auto) (1.8-7.0) K/uL Lymph # (Auto) (1.0-4.3) K/uL [place] # (Auto) (0.0-0.8) K/uL Eos # (Auto) (0.0-0.7) K/uL Baso # (Auto) (0.0-0.2) K/uL Neutrophils % (Manual) (50-75) % Band Neutrophils % (0-2) % Lymphocytes % (Manual) (20-40) % Reactive Lymphs % (0-0) % Monocytes % (Manual) (0-10) % Nucleated RBC % (0-0) % Toxic Granulation Platelet Estimate (NORMAL) Giant Platelets Hypochromasia (manual) Poikilocytosis (manual Anisocytosis (manual) Target Cells Puncture Site pCO2 (35-45) mm/Hg pO2 (80-100) mm/Hg HCO3 (21-28) mmol/L ABG pH (7.35-7.45) ABG Total CO2 (22-28) mmol/L ABG O2 Saturation (95-98) % ABG Base Excess (-2.0-3.0) mmol/L ABG Hemoglobin (11.7-17.4) g/dL ABG Carboxyhemoglobin (0.5-1.5) % POC ABG HHb (Measured) (0.0-5.0) % ABG Methemoglobin (0.0-3.0) % Rei Test A-a O2 Difference mm/Hg Respiratory Index Hgb O2 Saturation (95.0-98.0) % Vent Mode Mechanical Rate FiO2 % Tidal Volume PEEP Sodium (132-148) mmol/L Potassium (3.6-5.2) mmol/L Chloride (98-107) mmol/L Carbon Dioxide (22-30) mmol/L Anion Gap (10-20) BUN (9-20) mg/dL Creatinine (0.8-1.5) mg/dL Est GFR ( Amer) Est GFR (Non-Af Amer) POC Glucose (mg/dL) 271 H 219 H 266 H (65-110) mg/dL Random Glucose (75-110) mg/dL Calcium (8.6-10.4) mg/dl Phosphorus (2.5-4.5) mg/dL Magnesium (1.6-2.3) mg/dL Total Bilirubin (0.2-1.3) mg/dL AST (17-59) U/L ALT (21-72) U/L Alkaline Phosphatase (38-126) U/L Total Protein (6.3-8.3) g/dL Albumin (3.5-5.0) g/dL Globulin (2.2-3.9) gm/dL Albumin/Globulin Ratio (1.0-2.1) Ethanolamine Toxicology Panel Methyl Alcohol Level Isopropanol Acetone Level 08/14/18 08/13/18 08/13/18 Range/Units 00:14 18:26 11:18 WBC (4.8-10.8) K/uL RBC (4.40-5.90) Mil/uL Hgb (12.0-18.0) g/dL Hct (35.0-51.0) % MCV (80.0-94.0) fL MCH (27.0-31.0) pg MCHC (33.0-37.0) g/dL RDW (11.5-14.5) % Plt Count (130-400) K/uL MPV (7.2-11.7) fL Neut % (Auto) (50.0-75.0) % Lymph % (Auto) (20.0-40.0) % [place] % (Auto) (0.0-10.0) % Eos % (Auto) (0.0-4.0) % Baso % (Auto) (0.0-2.0) % Neut # (Auto) (1.8-7.0) K/uL Lymph # (Auto) (1.0-4.3) K/uL [place] # (Auto) (0.0-0.8) K/uL Eos # (Auto) (0.0-0.7) K/uL Baso # (Auto) (0.0-0.2) K/uL Neutrophils % (Manual) (50-75) % Band Neutrophils % (0-2) % Lymphocytes % (Manual) (20-40) % Reactive Lymphs % (0-0) % Monocytes % (Manual) (0-10) % Nucleated RBC % (0-0) % Toxic Granulation Platelet Estimate (NORMAL) Giant Platelets Hypochromasia (manual) Poikilocytosis (manual Anisocytosis (manual) Target Cells Puncture Site pCO2 (35-45) mm/Hg pO2 (80-100) mm/Hg HCO3 (21-28) mmol/L ABG pH (7.35-7.45) ABG Total CO2 (22-28) mmol/L ABG O2 Saturation (95-98) % ABG Base Excess (-2.0-3.0) mmol/L ABG Hemoglobin (11.7-17.4) g/dL ABG Carboxyhemoglobin (0.5-1.5) % POC ABG HHb (Measured) (0.0-5.0) % ABG Methemoglobin (0.0-3.0) % Rei Test A-a O2 Difference mm/Hg Respiratory Index Hgb O2 Saturation (95.0-98.0) % Vent Mode Mechanical Rate FiO2 % Tidal Volume PEEP Sodium (132-148) mmol/L Potassium (3.6-5.2) mmol/L Chloride (98-107) mmol/L Carbon Dioxide (22-30) mmol/L Anion Gap (10-20) BUN (9-20) mg/dL Creatinine (0.8-1.5) mg/dL Est GFR ( Amer) Est GFR (Non-Af Amer) POC Glucose (mg/dL) 216 H 194 H 231 H (65-110) mg/dL Random Glucose (75-110) mg/dL Calcium (8.6-10.4) mg/dl Phosphorus (2.5-4.5) mg/dL Magnesium (1.6-2.3) mg/dL Total Bilirubin (0.2-1.3) mg/dL AST (17-59) U/L ALT (21-72) U/L Alkaline Phosphatase (38-126) U/L Total Protein (6.3-8.3) g/dL Albumin (3.5-5.0) g/dL Globulin (2.2-3.9) gm/dL Albumin/Globulin Ratio (1.0-2.1) Ethanolamine Toxicology Panel Methyl Alcohol Level Isopropanol Acetone Level 08/13/18 08/13/18 08/11/18 Range/Units 05:41 00:36 08:57 WBC (4.8-10.8) K/uL RBC (4.40-5.90) Mil/uL Hgb (12.0-18.0) g/dL Hct (35.0-51.0) % MCV (80.0-94.0) fL MCH (27.0-31.0) pg MCHC (33.0-37.0) g/dL RDW (11.5-14.5) % Plt Count (130-400) K/uL MPV (7.2-11.7) fL Neut % (Auto) (50.0-75.0) % Lymph % (Auto) (20.0-40.0) % [place] % (Auto) (0.0-10.0) % Eos % (Auto) (0.0-4.0) % Baso % (Auto) (0.0-2.0) % Neut # (Auto) (1.8-7.0) K/uL Lymph # (Auto) (1.0-4.3) K/uL [place] # (Auto) (0.0-0.8) K/uL Eos # (Auto) (0.0-0.7) K/uL Baso # (Auto) (0.0-0.2) K/uL Neutrophils % (Manual) (50-75) % Band Neutrophils % (0-2) % Lymphocytes % (Manual) (20-40) % Reactive Lymphs % (0-0) % Monocytes % (Manual) (0-10) % Nucleated RBC % (0-0) % Toxic Granulation Platelet Estimate (NORMAL) Giant Platelets Hypochromasia (manual) Poikilocytosis (manual Anisocytosis (manual) Target Cells Puncture Site pCO2 (35-45) mm/Hg pO2 (80-100) mm/Hg HCO3 (21-28) mmol/L ABG pH (7.35-7.45) ABG Total CO2 (22-28) mmol/L ABG O2 Saturation (95-98) % ABG Base Excess (-2.0-3.0) mmol/L ABG Hemoglobin (11.7-17.4) g/dL ABG Carboxyhemoglobin (0.5-1.5) % POC ABG HHb (Measured) (0.0-5.0) % ABG Methemoglobin (0.0-3.0) % Rei Test A-a O2 Difference mm/Hg Respiratory Index Hgb O2 Saturation (95.0-98.0) % Vent Mode Mechanical Rate FiO2 % Tidal Volume PEEP Sodium (132-148) mmol/L Potassium (3.6-5.2) mmol/L Chloride (98-107) mmol/L Carbon Dioxide (22-30) mmol/L Anion Gap (10-20) BUN (9-20) mg/dL Creatinine (0.8-1.5) mg/dL Est GFR ( Amer) Est GFR (Non-Af Amer) POC Glucose (mg/dL) 245 H 196 H (65-110) mg/dL Random Glucose (75-110) mg/dL Calcium (8.6-10.4) mg/dl Phosphorus (2.5-4.5) mg/dL Magnesium (1.6-2.3) mg/dL Total Bilirubin (0.2-1.3) mg/dL AST (17-59) U/L ALT (21-72) U/L Alkaline Phosphatase (38-126) U/L Total Protein (6.3-8.3) g/dL Albumin (3.5-5.0) g/dL Globulin (2.2-3.9) gm/dL Albumin/Globulin Ratio (1.0-2.1) Ethanolamine None detected Toxicology Panel see note Methyl Alcohol Level None detected Isopropanol None detected Acetone Level None detected Laboratory Results - last 24 hr 08/11/18 08/13/18 08/13/18 08:57 00:36 05:41 WBC RBC Hgb Hct MCV MCH MCHC RDW Plt Count MPV Neut % (Auto) Lymph % (Auto) [place] % (Auto) Eos % (Auto) Baso % (Auto) Neut # (Auto) Lymph # (Auto) [place] # (Auto) Eos # (Auto) Baso # (Auto) Neutrophils % (Manual) Band Neutrophils % Lymphocytes % (Manual) Reactive Lymphs % Monocytes % (Manual) Nucleated RBC % Toxic Granulation Platelet Estimate Giant Platelets Hypochromasia (manual) Poikilocytosis (manual Anisocytosis (manual) Target Cells Puncture Site pCO2 pO2 HCO3 ABG pH ABG Total CO2 ABG O2 Saturation ABG Base Excess ABG Hemoglobin ABG Carboxyhemoglobin POC ABG HHb (Measured) ABG Methemoglobin Rei Test A-a O2 Difference Respiratory Index Hgb O2 Saturation Vent Mode Mechanical Rate FiO2 Tidal Volume PEEP Sodium Potassium Chloride Carbon Dioxide Anion Gap BUN Creatinine Est GFR ( Amer) Est GFR (Non-Af Amer) POC Glucose (mg/dL) 196 H 245 H Random Glucose Calcium Phosphorus Magnesium Total Bilirubin AST ALT Alkaline Phosphatase Total Protein Albumin Globulin Albumin/Globulin Ratio Ethanolamine None detected Toxicology Panel see note Methyl Alcohol Level None detected Isopropanol None detected Acetone Level None detected 08/13/18 08/13/18 08/14/18 11:18 18:26 00:14 WBC RBC Hgb Hct MCV MCH MCHC RDW Plt Count MPV Neut % (Auto) Lymph % (Auto) [place] % (Auto) Eos % (Auto) Baso % (Auto) Neut # (Auto) Lymph # (Auto) [place] # (Auto) Eos # (Auto) Baso # (Auto) Neutrophils % (Manual) Band Neutrophils % Lymphocytes % (Manual) Reactive Lymphs % Monocytes % (Manual) Nucleated RBC % Toxic Granulation Platelet Estimate Giant Platelets Hypochromasia (manual) Poikilocytosis (manual Anisocytosis (manual) Target Cells Puncture Site pCO2 pO2 HCO3 ABG pH ABG Total CO2 ABG O2 Saturation ABG Base Excess ABG Hemoglobin ABG Carboxyhemoglobin POC ABG HHb (Measured) ABG Methemoglobin Rei Test A-a O2 Difference Respiratory Index Hgb O2 Saturation Vent Mode Mechanical Rate FiO2 Tidal Volume PEEP Sodium Potassium Chloride Carbon Dioxide Anion Gap BUN Creatinine Est GFR ( Amer) Est GFR (Non-Af Amer) POC Glucose (mg/dL) 231 H 194 H 216 H Random Glucose Calcium Phosphorus Magnesium Total Bilirubin AST ALT Alkaline Phosphatase Total Protein Albumin Globulin Albumin/Globulin Ratio Ethanolamine Toxicology Panel Methyl Alcohol Level Isopropanol Acetone Level 08/14/18 08/14/18 08/14/18 05:55 11:26 18:17 WBC RBC Hgb Hct MCV MCH MCHC RDW Plt Count MPV Neut % (Auto) Lymph % (Auto) [place] % (Auto) Eos % (Auto) Baso % (Auto) Neut # (Auto) Lymph # (Auto) [place] # (Auto) Eos # (Auto) Baso # (Auto) Neutrophils % (Manual) Band Neutrophils % Lymphocytes % (Manual) Reactive Lymphs % Monocytes % (Manual) Nucleated RBC % Toxic Granulation Platelet Estimate Giant Platelets Hypochromasia (manual) Poikilocytosis (manual Anisocytosis (manual) Target Cells Puncture Site pCO2 pO2 HCO3 ABG pH ABG Total CO2 ABG O2 Saturation ABG Base Excess ABG Hemoglobin ABG Carboxyhemoglobin POC ABG HHb (Measured) ABG Methemoglobin Rei Test A-a O2 Difference Respiratory Index Hgb O2 Saturation Vent Mode Mechanical Rate FiO2 Tidal Volume PEEP Sodium Potassium Chloride Carbon Dioxide Anion Gap BUN Creatinine Est GFR ( Amer) Est GFR (Non-Af Amer) POC Glucose (mg/dL) 266 H 219 H 271 H Random Glucose Calcium Phosphorus Magnesium Total Bilirubin AST ALT Alkaline Phosphatase Total Protein Albumin Globulin Albumin/Globulin Ratio Ethanolamine Toxicology Panel Methyl Alcohol Level Isopropanol Acetone Level 08/14/18 08/15/18 08/15/18 23:30 05:19 11:17 WBC RBC Hgb Hct MCV MCH MCHC RDW Plt Count MPV Neut % (Auto) Lymph % (Auto) [place] % (Auto) Eos % (Auto) Baso % (Auto) Neut # (Auto) Lymph # (Auto) [place] # (Auto) Eos # (Auto) Baso # (Auto) Neutrophils % (Manual) Band Neutrophils % Lymphocytes % (Manual) Reactive Lymphs % Monocytes % (Manual) Nucleated RBC % Toxic Granulation Platelet Estimate Giant Platelets Hypochromasia (manual) Poikilocytosis (manual Anisocytosis (manual) Target Cells Puncture Site pCO2 pO2 HCO3 ABG pH ABG Total CO2 ABG O2 Saturation ABG Base Excess ABG Hemoglobin ABG Carboxyhemoglobin POC ABG HHb (Measured) ABG Methemoglobin Rei Test A-a O2 Difference Respiratory Index Hgb O2 Saturation Vent Mode Mechanical Rate FiO2 Tidal Volume PEEP Sodium Potassium Chloride Carbon Dioxide Anion Gap BUN Creatinine Est GFR ( Amer) Est GFR (Non-Af Amer) POC Glucose (mg/dL) 237 H 198 H 191 H Random Glucose Calcium Phosphorus Magnesium Total Bilirubin AST ALT Alkaline Phosphatase Total Protein Albumin Globulin Albumin/Globulin Ratio Ethanolamine Toxicology Panel Methyl Alcohol Level Isopropanol Acetone Level 08/15/18 08/16/18 08/16/18 17:50 00:16 05:00 WBC RBC Hgb Hct MCV MCH MCHC RDW Plt Count MPV Neut % (Auto) Lymph % (Auto) [place] % (Auto) Eos % (Auto) Baso % (Auto) Neut # (Auto) Lymph # (Auto) [place] # (Auto) Eos # (Auto) Baso # (Auto) Neutrophils % (Manual) Band Neutrophils % Lymphocytes % (Manual) Reactive Lymphs % Monocytes % (Manual) Nucleated RBC % Toxic Granulation Platelet Estimate Giant Platelets Hypochromasia (manual) Poikilocytosis (manual Anisocytosis (manual) Target Cells Puncture Site Rb pCO2 31 L pO2 99 HCO3 24.5 ABG pH 7.47 H ABG Total CO2 23.6 ABG O2 Saturation 99.5 H ABG Base Excess -0.6 ABG Hemoglobin 9.2 L ABG Carboxyhemoglobin 2.1 H POC ABG HHb (Measured) 0.5 ABG Methemoglobin 1.2 Rei Test Na A-a O2 Difference 76.0 Respiratory Index 0.8 Hgb O2 Saturation 96.2 Vent Mode Prvc Mechanical Rate 15 FiO2 30.0 Tidal Volume 500 PEEP 5 Sodium Potassium Chloride Carbon Dioxide Anion Gap BUN Creatinine Est GFR ( Amer) Est GFR (Non-Af Amer) POC Glucose (mg/dL) 205 H 146 H Random Glucose Calcium Phosphorus Magnesium Total Bilirubin AST ALT Alkaline Phosphatase Total Protein Albumin Globulin Albumin/Globulin Ratio Ethanolamine Toxicology Panel Methyl Alcohol Level Isopropanol Acetone Level 08/16/18 08/16/18 08/16/18 05:27 05:41 05:41 WBC 7.4 RBC 3.66 L Hgb 9.1 L Hct 28.8 L MCV 78.6 L MCH 24.8 L MCHC 31.6 L RDW 21.1 H Plt Count 90 L MPV 9.6 Neut % (Auto) 60.6 Lymph % (Auto) 11.9 L [place] % (Auto) 27.4 H Eos % (Auto) 0.0 Baso % (Auto) 0.1 Neut # (Auto) 4.5 Lymph # (Auto) 0.9 L [place] # (Auto) 2.0 H Eos # (Auto) 0.0 Baso # (Auto) 0.0 Neutrophils % (Manual) 57 Band Neutrophils % 5 H Lymphocytes % (Manual) 12 L Reactive Lymphs % 2 H Monocytes % (Manual) 24 H Nucleated RBC % 1 H Toxic Granulation Present Platelet Estimate Decreased L Giant Platelets Present Hypochromasia (manual) Slight Poikilocytosis (manual Slight Anisocytosis (manual) Slight Target Cells Slight Puncture Site pCO2 pO2 HCO3 ABG pH ABG Total CO2 ABG O2 Saturation ABG Base Excess ABG Hemoglobin ABG Carboxyhemoglobin POC ABG HHb (Measured) ABG Methemoglobin Rei Test A-a O2 Difference Respiratory Index Hgb O2 Saturation Vent Mode Mechanical Rate FiO2 Tidal Volume PEEP Sodium 149 H Potassium 3.6 Chloride 117 H Carbon Dioxide 21 L Anion Gap 15 BUN 72 H Creatinine 2.4 H Est GFR ( Amer) 34 Est GFR (Non-Af Amer) 28 POC Glucose (mg/dL) 171 H Random Glucose 160 H D Calcium 8.1 L Phosphorus 3.2 Magnesium 2.5 H Total Bilirubin 1.0 AST 69 H D ALT 52 Alkaline Phosphatase 92 Total Protein 6.4 Albumin 2.8 L Globulin 3.5 Albumin/Globulin Ratio 0.8 L Ethanolamine Toxicology Panel Methyl Alcohol Level Isopropanol Acetone Level Radiology Impressions: Radiology Impressions Chest X-Ray 08/16/18 07:00 IMPRESSION: Mild improvement in pulmonary vascular congestion. Interval increase in bilateral patchy pulmonary infiltrates, particularly at the bilateral upper lung zones. Continued clinical and radiographic monitoring advised. Tubes and catheters appear stable. Fingerstick Blood Sugar Results: 194 Review of Systems - Review of Systems Systems not reviewed;Unavailable: Intubated Assessment/Plan - Assessment and Plan (Free Text) Assessment: Pulm Hypoxic respiratory failure, COPD -Intubated 08/12, PRVC. FiO2 30% -Solumedrol 40 mg IV daily -Sputum cx NEGATIVE - final -Zosyn 2.25 daily for renal dosing -Extubated and re-intubated 08/16 for worsening respiratory function on vent - sat improved on re-intubation Cardio -SVT resolved, NSR on monitor HR 80s -D/w patient possible need for ablation outpatient Neuro AMS, DTs -Continue to monitor -Precedex -Monitor -Ativan 1mg IV given once for increased agitation Renal RAMIREZ -Cr improving -Pre-renal --> Mildly-elevated Endo -Anion gap metablic acidosis - DKA vs uremia vs lactic acidosis vs various causes -Resolved ID Sepsis, strep bacteremia -ID consulted, Dr. Moss -Blood cx - Group G strep -cont zosyn -Repeat blood cultures neg x24 hours -Monitor vitals Ppx -Heparin SCC Q8 -Precedex Assessment and plan d/w Dr. Cornelius Steinberg, PGY-1 <Olvin Shields S - Last Filed: 08/16/18 16:10> CCU Subjective - Physician Review Critical Care Time Spent (in minutes): 40 CCU Objective - Vital Signs / Intake & Output Vital Signs (Last 4 hours): Vital Signs Pulse Resp BP Pulse Ox 08/16/18 16:00 67 13 100 08/16/18 15:08 68 15 138/75 100 08/16/18 15:00 58 L 15 100 08/16/18 14:08 55 L 22 135/74 100 08/16/18 14:00 57 L 23 100 08/16/18 13:08 63 24 148/82 100 08/16/18 13:00 57 L 23 100 Intake and Output (Last 8hrs): Intake & Output 08/16/18 08/16/18 08/16/18 06:59 14:59 22:59 Intake Total 780.1 688.6 225.4 Output Total 730 875 175 Balance 50.1 -186.4 50.4 Weight 176 lb Intake: IV 140 71 5 Intake, IV Amount 280.1 377.6 140.4 Left Wrist 100 Right Forearm 300 120 Right Hand 180.1 77.6 20.4 Tube Feeding 360 240 80 Output: Urine 730 875 175 Urethral ([place]) 730 875 175 Other: # Bowel Movements 1 1 - Medications Active Medications: Active Medications Generic Name Dose Route Start Last Admin Trade Name Freq PRN Reason Stop Dose Admin Albuterol/Ipratropium 3 ml 08/12/18 20:00 08/16/18 14:11 Duoneb 3 Mg/0.5 Mg (3 Ml) Ud INH 3 ml RQ4 ASHLEIGH Administration Famotidine 20 mg 08/11/18 10:00 08/16/18 09:10 Pepcid IVP 20 mg DAILY ASHLEIGH Administration Heparin Sodium (Porcine) 5,000 units 08/13/18 14:00 08/16/18 13:52 Heparin SC 5,000 units Q8 ASHLEIGH Administration Piperacillin Sod/Tazobactam 100 mls @ 200 mls/hr 08/14/18 08:00 08/16/18 15:45 Sod 2.25 gm/ Sodium Chloride IVPB 200 mls/hr Q8H ASHLEIGH Administration Protocol Dexmedetomidine HCl 400 mcg/ 100 mls @ 28.67 mls/hr 08/15/18 23:14 08/16/18 15:46 Sodium Chloride IV 0.5 mcg/kg/hr TITR PRN 10.24 mls/hr Titration Protocol 1.4 MCG/KG/HR Sodium Chloride 1,000 mls @ 60 mls/hr 08/16/18 09:45 08/16/18 09:43 Sodium Chloride 0.45% IV 60 mls/hr .[id number] ASHLEIGH Administration Insulin Human Regular 0 unit 08/13/18 00:00 08/16/18 12:41 Novolin R SC Not Given Q6 ASHLEIGH Protocol Methylprednisolone 40 mg 08/14/18 10:00 08/16/18 09:10 Solu-Medrol IVP 40 mg DAILY ASHLEIGH Administration Multivitamins/Vitamin C 5 ml 08/11/18 10:00 08/16/18 09:10 Multi-Delyn Liquid PO 5 ml DAILY ASHLEIGH Administration - Patient Studies Lab Studies: Microbiology Studies 08/15/18 04:42 Blood Culture - Preliminary Blood NO GROWTH AFTER 24 HOURS 04/30/19 04:42 Blood Culture - Preliminary Blood NO GROWTH AFTER 24 HOURS Lab Studies 08/16/18 08/16/18 08/16/18 Range/Units 05:41 05:41 05:27 WBC 7.4 (4.8-10.8) K/uL RBC 3.66 L (4.40-5.90) Mil/uL Hgb 9.1 L (12.0-18.0) g/dL Hct 28.8 L (35.0-51.0) % MCV 78.6 L (80.0-94.0) fL MCH 24.8 L (27.0-31.0) pg MCHC 31.6 L (33.0-37.0) g/dL RDW 21.1 H (11.5-14.5) % Plt Count 90 L (130-400) K/uL MPV 9.6 (7.2-11.7) fL Neut % (Auto) 60.6 (50.0-75.0) % Lymph % (Auto) 11.9 L (20.0-40.0) % [place] % (Auto) 27.4 H (0.0-10.0) % Eos % (Auto) 0.0 (0.0-4.0) % Baso % (Auto) 0.1 (0.0-2.0) % Neut # (Auto) 4.5 (1.8-7.0) K/uL Lymph # (Auto) 0.9 L (1.0-4.3) K/uL [place] # (Auto) 2.0 H (0.0-0.8) K/uL Eos # (Auto) 0.0 (0.0-0.7) K/uL Baso # (Auto) 0.0 (0.0-0.2) K/uL Neutrophils % (Manual) 57 (50-75) % Band Neutrophils % 5 H (0-2) % Lymphocytes % (Manual) 12 L (20-40) % Reactive Lymphs % 2 H (0-0) % Monocytes % (Manual) 24 H (0-10) % Nucleated RBC % 1 H (0-0) % Toxic Granulation Present Platelet Estimate Decreased L (NORMAL) Giant Platelets Present Hypochromasia (manual) Slight Poikilocytosis (manual Slight Anisocytosis (manual) Slight Target Cells Slight Puncture Site pCO2 (35-45) mm/Hg pO2 (80-100) mm/Hg HCO3 (21-28) mmol/L ABG pH (7.35-7.45) ABG Total CO2 (22-28) mmol/L ABG O2 Saturation (95-98) % ABG Base Excess (-2.0-3.0) mmol/L ABG Hemoglobin (11.7-17.4) g/dL ABG Carboxyhemoglobin (0.5-1.5) % POC ABG HHb (Measured) (0.0-5.0) % ABG Methemoglobin (0.0-3.0) % Rei Test A-a O2 Difference mm/Hg Respiratory Index Hgb O2 Saturation (95.0-98.0) % Vent Mode Mechanical Rate FiO2 % Tidal Volume PEEP Sodium 149 H (132-148) mmol/L Potassium 3.6 (3.6-5.2) mmol/L Chloride 117 H (98-107) mmol/L Carbon Dioxide 21 L (22-30) mmol/L Anion Gap 15 (10-20) BUN 72 H (9-20) mg/dL Creatinine 2.4 H (0.8-1.5) mg/dL Est GFR ( Amer) 34 Est GFR (Non-Af Amer) 28 POC Glucose (mg/dL) 171 H (65-110) mg/dL Random Glucose 160 H D (75-110) mg/dL Calcium 8.1 L (8.6-10.4) mg/dl Phosphorus 3.2 (2.5-4.5) mg/dL Magnesium 2.5 H (1.6-2.3) mg/dL Total Bilirubin 1.0 (0.2-1.3) mg/dL AST 69 H D (17-59) U/L ALT 52 (21-72) U/L Alkaline Phosphatase 92 (38-126) U/L Total Protein 6.4 (6.3-8.3) g/dL Albumin 2.8 L (3.5-5.0) g/dL Globulin 3.5 (2.2-3.9) gm/dL Albumin/Globulin Ratio 0.8 L (1.0-2.1) Ethanolamine Toxicology Panel Methyl Alcohol Level Isopropanol Acetone Level 08/16/18 08/16/18 08/15/18 Range/Units 05:00 00:16 17:50 WBC (4.8-10.8) K/uL RBC (4.40-5.90) Mil/uL Hgb (12.0-18.0) g/dL Hct (35.0-51.0) % MCV (80.0-94.0) fL MCH (27.0-31.0) pg MCHC (33.0-37.0) g/dL RDW (11.5-14.5) % Plt Count (130-400) K/uL MPV (7.2-11.7) fL Neut % (Auto) (50.0-75.0) % Lymph % (Auto) (20.0-40.0) % [place] % (Auto) (0.0-10.0) % Eos % (Auto) (0.0-4.0) % Baso % (Auto) (0.0-2.0) % Neut # (Auto) (1.8-7.0) K/uL Lymph # (Auto) (1.0-4.3) K/uL [place] # (Auto) (0.0-0.8) K/uL Eos # (Auto) (0.0-0.7) K/uL Baso # (Auto) (0.0-0.2) K/uL Neutrophils % (Manual) (50-75) % Band Neutrophils % (0-2) % Lymphocytes % (Manual) (20-40) % Reactive Lymphs % (0-0) % Monocytes % (Manual) (0-10) % Nucleated RBC % (0-0) % Toxic Granulation Platelet Estimate (NORMAL) Giant Platelets Hypochromasia (manual) Poikilocytosis (manual Anisocytosis (manual) Target Cells Puncture Site Rb pCO2 31 L (35-45) mm/Hg pO2 99 (80-100) mm/Hg HCO3 24.5 (21-28) mmol/L ABG pH 7.47 H (7.35-7.45) ABG Total CO2 23.6 (22-28) mmol/L ABG O2 Saturation 99.5 H (95-98) % ABG Base Excess -0.6 (-2.0-3.0) mmol/L ABG Hemoglobin 9.2 L (11.7-17.4) g/dL ABG Carboxyhemoglobin 2.1 H (0.5-1.5) % POC ABG HHb (Measured) 0.5 (0.0-5.0) % ABG Methemoglobin 1.2 (0.0-3.0) % Rei Test Na A-a O2 Difference 76.0 mm/Hg Respiratory Index 0.8 Hgb O2 Saturation 96.2 (95.0-98.0) % Vent Mode Prvc Mechanical Rate 15 FiO2 30.0 % Tidal Volume 500 PEEP 5 Sodium (132-148) mmol/L Potassium (3.6-5.2) mmol/L Chloride (98-107) mmol/L Carbon Dioxide (22-30) mmol/L Anion Gap (10-20) BUN (9-20) mg/dL Creatinine (0.8-1.5) mg/dL Est GFR ( Amer) Est GFR (Non-Af Amer) POC Glucose (mg/dL) 146 H 205 H (65-110) mg/dL Random Glucose (75-110) mg/dL Calcium (8.6-10.4) mg/dl Phosphorus (2.5-4.5) mg/dL Magnesium (1.6-2.3) mg/dL Total Bilirubin (0.2-1.3) mg/dL AST (17-59) U/L ALT (21-72) U/L Alkaline Phosphatase (38-126) U/L Total Protein (6.3-8.3) g/dL Albumin (3.5-5.0) g/dL Globulin (2.2-3.9) gm/dL Albumin/Globulin Ratio (1.0-2.1) Ethanolamine Toxicology Panel Methyl Alcohol Level Isopropanol Acetone Level 08/15/18 08/15/18 08/14/18 Range/Units 11:17 05:19 23:30 WBC (4.8-10.8) K/uL RBC (4.40-5.90) Mil/uL Hgb (12.0-18.0) g/dL Hct (35.0-51.0) % MCV (80.0-94.0) fL MCH (27.0-31.0) pg MCHC (33.0-37.0) g/dL RDW (11.5-14.5) % Plt Count (130-400) K/uL MPV (7.2-11.7) fL Neut % (Auto) (50.0-75.0) % Lymph % (Auto) (20.0-40.0) % [place] % (Auto) (0.0-10.0) % Eos % (Auto) (0.0-4.0) % Baso % (Auto) (0.0-2.0) % Neut # (Auto) (1.8-7.0) K/uL Lymph # (Auto) (1.0-4.3) K/uL [place] # (Auto) (0.0-0.8) K/uL Eos # (Auto) (0.0-0.7) K/uL Baso # (Auto) (0.0-0.2) K/uL Neutrophils % (Manual) (50-75) % Band Neutrophils % (0-2) % Lymphocytes % (Manual) (20-40) % Reactive Lymphs % (0-0) % Monocytes % (Manual) (0-10) % Nucleated RBC % (0-0) % Toxic Granulation Platelet Estimate (NORMAL) Giant Platelets Hypochromasia (manual) Poikilocytosis (manual Anisocytosis (manual) Target Cells Puncture Site pCO2 (35-45) mm/Hg pO2 (80-100) mm/Hg HCO3 (21-28) mmol/L ABG pH (7.35-7.45) ABG Total CO2 (22-28) mmol/L ABG O2 Saturation (95-98) % ABG Base Excess (-2.0-3.0) mmol/L ABG Hemoglobin (11.7-17.4) g/dL ABG Carboxyhemoglobin (0.5-1.5) % POC ABG HHb (Measured) (0.0-5.0) % ABG Methemoglobin (0.0-3.0) % Rei Test A-a O2 Difference mm/Hg Respiratory Index Hgb O2 Saturation (95.0-98.0) % Vent Mode Mechanical Rate FiO2 % Tidal Volume PEEP Sodium (132-148) mmol/L Potassium (3.6-5.2) mmol/L Chloride (98-107) mmol/L Carbon Dioxide (22-30) mmol/L Anion Gap (10-20) BUN (9-20) mg/dL Creatinine (0.8-1.5) mg/dL Est GFR ( Amer) Est GFR (Non-Af Amer) POC Glucose (mg/dL) 191 H 198 H 237 H (65-110) mg/dL Random Glucose (75-110) mg/dL Calcium (8.6-10.4) mg/dl Phosphorus (2.5-4.5) mg/dL Magnesium (1.6-2.3) mg/dL Total Bilirubin (0.2-1.3) mg/dL AST (17-59) U/L ALT (21-72) U/L Alkaline Phosphatase (38-126) U/L Total Protein (6.3-8.3) g/dL Albumin (3.5-5.0) g/dL Globulin (2.2-3.9) gm/dL Albumin/Globulin Ratio (1.0-2.1) Ethanolamine Toxicology Panel Methyl Alcohol Level Isopropanol Acetone Level 08/14/18 08/14/18 08/14/18 Range/Units 18:17 11:26 05:55 WBC (4.8-10.8) K/uL RBC (4.40-5.90) Mil/uL Hgb (12.0-18.0) g/dL Hct (35.0-51.0) % MCV (80.0-94.0) fL MCH (27.0-31.0) pg MCHC (33.0-37.0) g/dL RDW (11.5-14.5) % Plt Count (130-400) K/uL MPV (7.2-11.7) fL Neut % (Auto) (50.0-75.0) % Lymph % (Auto) (20.0-40.0) % [place] % (Auto) (0.0-10.0) % Eos % (Auto) (0.0-4.0) % Baso % (Auto) (0.0-2.0) % Neut # (Auto) (1.8-7.0) K/uL Lymph # (Auto) (1.0-4.3) K/uL [place] # (Auto) (0.0-0.8) K/uL Eos # (Auto) (0.0-0.7) K/uL Baso # (Auto) (0.0-0.2) K/uL Neutrophils % (Manual) (50-75) % Band Neutrophils % (0-2) % Lymphocytes % (Manual) (20-40) % Reactive Lymphs % (0-0) % Monocytes % (Manual) (0-10) % Nucleated RBC % (0-0) % Toxic Granulation Platelet Estimate (NORMAL) Giant Platelets Hypochromasia (manual) Poikilocytosis (manual Anisocytosis (manual) Target Cells Puncture Site pCO2 (35-45) mm/Hg pO2 (80-100) mm/Hg HCO3 (21-28) mmol/L ABG pH (7.35-7.45) ABG Total CO2 (22-28) mmol/L ABG O2 Saturation (95-98) % ABG Base Excess (-2.0-3.0) mmol/L ABG Hemoglobin (11.7-17.4) g/dL ABG Carboxyhemoglobin (0.5-1.5) % POC ABG HHb (Measured) (0.0-5.0) % ABG Methemoglobin (0.0-3.0) % Rei Test A-a O2 Difference mm/Hg Respiratory Index Hgb O2 Saturation (95.0-98.0) % Vent Mode Mechanical Rate FiO2 % Tidal Volume PEEP Sodium (132-148) mmol/L Potassium (3.6-5.2) mmol/L Chloride (98-107) mmol/L Carbon Dioxide (22-30) mmol/L Anion Gap (10-20) BUN (9-20) mg/dL Creatinine (0.8-1.5) mg/dL Est GFR ( Amer) Est GFR (Non-Af Amer) POC Glucose (mg/dL) 271 H 219 H 266 H (65-110) mg/dL Random Glucose (75-110) mg/dL Calcium (8.6-10.4) mg/dl Phosphorus (2.5-4.5) mg/dL Magnesium (1.6-2.3) mg/dL Total Bilirubin (0.2-1.3) mg/dL AST (17-59) U/L ALT (21-72) U/L Alkaline Phosphatase (38-126) U/L Total Protein (6.3-8.3) g/dL Albumin (3.5-5.0) g/dL Globulin (2.2-3.9) gm/dL Albumin/Globulin Ratio (1.0-2.1) Ethanolamine Toxicology Panel Methyl Alcohol Level Isopropanol Acetone Level 08/14/18 08/13/18 08/13/18 Range/Units 00:14 18:26 11:18 WBC (4.8-10.8) K/uL RBC (4.40-5.90) Mil/uL Hgb (12.0-18.0) g/dL Hct (35.0-51.0) % MCV (80.0-94.0) fL MCH (27.0-31.0) pg MCHC (33.0-37.0) g/dL RDW (11.5-14.5) % Plt Count (130-400) K/uL MPV (7.2-11.7) fL Neut % (Auto) (50.0-75.0) % Lymph % (Auto) (20.0-40.0) % [place] % (Auto) (0.0-10.0) % Eos % (Auto) (0.0-4.0) % Baso % (Auto) (0.0-2.0) % Neut # (Auto) (1.8-7.0) K/uL Lymph # (Auto) (1.0-4.3) K/uL [place] # (Auto) (0.0-0.8) K/uL Eos # (Auto) (0.0-0.7) K/uL Baso # (Auto) (0.0-0.2) K/uL Neutrophils % (Manual) (50-75) % Band Neutrophils % (0-2) % Lymphocytes % (Manual) (20-40) % Reactive Lymphs % (0-0) % Monocytes % (Manual) (0-10) % Nucleated RBC % (0-0) % Toxic Granulation Platelet Estimate (NORMAL) Giant Platelets Hypochromasia (manual) Poikilocytosis (manual Anisocytosis (manual) Target Cells Puncture Site pCO2 (35-45) mm/Hg pO2 (80-100) mm/Hg HCO3 (21-28) mmol/L ABG pH (7.35-7.45) ABG Total CO2 (22-28) mmol/L ABG O2 Saturation (95-98) % ABG Base Excess (-2.0-3.0) mmol/L ABG Hemoglobin (11.7-17.4) g/dL ABG Carboxyhemoglobin (0.5-1.5) % POC ABG HHb (Measured) (0.0-5.0) % ABG Methemoglobin (0.0-3.0) % Rei Test A-a O2 Difference mm/Hg Respiratory Index Hgb O2 Saturation (95.0-98.0) % Vent Mode Mechanical Rate FiO2 % Tidal Volume PEEP Sodium (132-148) mmol/L Potassium (3.6-5.2) mmol/L Chloride (98-107) mmol/L Carbon Dioxide (22-30) mmol/L Anion Gap (10-20) BUN (9-20) mg/dL Creatinine (0.8-1.5) mg/dL Est GFR ( Amer) Est GFR (Non-Af Amer) POC Glucose (mg/dL) 216 H 194 H 231 H (65-110) mg/dL Random Glucose (75-110) mg/dL Calcium (8.6-10.4) mg/dl Phosphorus (2.5-4.5) mg/dL Magnesium (1.6-2.3) mg/dL Total Bilirubin (0.2-1.3) mg/dL AST (17-59) U/L ALT (21-72) U/L Alkaline Phosphatase (38-126) U/L Total Protein (6.3-8.3) g/dL Albumin (3.5-5.0) g/dL Globulin (2.2-3.9) gm/dL Albumin/Globulin Ratio (1.0-2.1) Ethanolamine Toxicology Panel Methyl Alcohol Level Isopropanol Acetone Level 08/13/18 08/13/18 08/11/18 Range/Units 05:41 00:36 08:57 WBC (4.8-10.8) K/uL RBC (4.40-5.90) Mil/uL Hgb (12.0-18.0) g/dL Hct (35.0-51.0) % MCV (80.0-94.0) fL MCH (27.0-31.0) pg MCHC (33.0-37.0) g/dL RDW (11.5-14.5) % Plt Count (130-400) K/uL MPV (7.2-11.7) fL Neut % (Auto) (50.0-75.0) % Lymph % (Auto) (20.0-40.0) % [place] % (Auto) (0.0-10.0) % Eos % (Auto) (0.0-4.0) % Baso % (Auto) (0.0-2.0) % Neut # (Auto) (1.8-7.0) K/uL Lymph # (Auto) (1.0-4.3) K/uL [place] # (Auto) (0.0-0.8) K/uL Eos # (Auto) (0.0-0.7) K/uL Baso # (Auto) (0.0-0.2) K/uL Neutrophils % (Manual) (50-75) % Band Neutrophils % (0-2) % Lymphocytes % (Manual) (20-40) % Reactive Lymphs % (0-0) % Monocytes % (Manual) (0-10) % Nucleated RBC % (0-0) % Toxic Granulation Platelet Estimate (NORMAL) Giant Platelets Hypochromasia (manual) Poikilocytosis (manual Anisocytosis (manual) Target Cells Puncture Site pCO2 (35-45) mm/Hg pO2 (80-100) mm/Hg HCO3 (21-28) mmol/L ABG pH (7.35-7.45) ABG Total CO2 (22-28) mmol/L ABG O2 Saturation (95-98) % ABG Base Excess (-2.0-3.0) mmol/L ABG Hemoglobin (11.7-17.4) g/dL ABG Carboxyhemoglobin (0.5-1.5) % POC ABG HHb (Measured) (0.0-5.0) % ABG Methemoglobin (0.0-3.0) % Rei Test A-a O2 Difference mm/Hg Respiratory Index Hgb O2 Saturation (95.0-98.0) % Vent Mode Mechanical Rate FiO2 % Tidal Volume PEEP Sodium (132-148) mmol/L Potassium (3.6-5.2) mmol/L Chloride (98-107) mmol/L Carbon Dioxide (22-30) mmol/L Anion Gap (10-20) BUN (9-20) mg/dL Creatinine (0.8-1.5) mg/dL Est GFR ( Amer) Est GFR (Non-Af Amer) POC Glucose (mg/dL) 245 H 196 H (65-110) mg/dL Random Glucose (75-110) mg/dL Calcium (8.6-10.4) mg/dl Phosphorus (2.5-4.5) mg/dL Magnesium (1.6-2.3) mg/dL Total Bilirubin (0.2-1.3) mg/dL AST (17-59) U/L ALT (21-72) U/L Alkaline Phosphatase (38-126) U/L Total Protein (6.3-8.3) g/dL Albumin (3.5-5.0) g/dL Globulin (2.2-3.9) gm/dL Albumin/Globulin Ratio (1.0-2.1) Ethanolamine None detected Toxicology Panel see note Methyl Alcohol Level None detected Isopropanol None detected Acetone Level None detected Laboratory Results - last 24 hr 08/11/18 08/13/18 08/13/18 08:57 00:36 05:41 WBC RBC Hgb Hct MCV MCH MCHC RDW Plt Count MPV Neut % (Auto) Lymph % (Auto) [place] % (Auto) Eos % (Auto) Baso % (Auto) Neut # (Auto) Lymph # (Auto) [place] # (Auto) Eos # (Auto) Baso # (Auto) Neutrophils % (Manual) Band Neutrophils % Lymphocytes % (Manual) Reactive Lymphs % Monocytes % (Manual) Nucleated RBC % Toxic Granulation Platelet Estimate Giant Platelets Hypochromasia (manual) Poikilocytosis (manual Anisocytosis (manual) Target Cells Puncture Site pCO2 pO2 HCO3 ABG pH ABG Total CO2 ABG O2 Saturation ABG Base Excess ABG Hemoglobin ABG Carboxyhemoglobin POC ABG HHb (Measured) ABG Methemoglobin Rei Test A-a O2 Difference Respiratory Index Hgb O2 Saturation Vent Mode Mechanical Rate FiO2 Tidal Volume PEEP Sodium Potassium Chloride Carbon Dioxide Anion Gap BUN Creatinine Est GFR ( Amer) Est GFR (Non-Af Amer) POC Glucose (mg/dL) 196 H 245 H Random Glucose Calcium Phosphorus Magnesium Total Bilirubin AST ALT Alkaline Phosphatase Total Protein Albumin Globulin Albumin/Globulin Ratio Ethanolamine None detected Toxicology Panel see note Methyl Alcohol Level None detected Isopropanol None detected Acetone Level None detected 08/13/18 08/13/18 08/14/18 11:18 18:26 00:14 WBC RBC Hgb Hct MCV MCH MCHC RDW Plt Count MPV Neut % (Auto) Lymph % (Auto) [place] % (Auto) Eos % (Auto) Baso % (Auto) Neut # (Auto) Lymph # (Auto) [place] # (Auto) Eos # (Auto) Baso # (Auto) Neutrophils % (Manual) Band Neutrophils % Lymphocytes % (Manual) Reactive Lymphs % Monocytes % (Manual) Nucleated RBC % Toxic Granulation Platelet Estimate Giant Platelets Hypochromasia (manual) Poikilocytosis (manual Anisocytosis (manual) Target Cells Puncture Site pCO2 pO2 HCO3 ABG pH ABG Total CO2 ABG O2 Saturation ABG Base Excess ABG Hemoglobin ABG Carboxyhemoglobin POC ABG HHb (Measured) ABG Methemoglobin Rei Test A-a O2 Difference Respiratory Index Hgb O2 Saturation Vent Mode Mechanical Rate FiO2 Tidal Volume PEEP Sodium Potassium Chloride Carbon Dioxide Anion Gap BUN Creatinine Est GFR ( Amer) Est GFR (Non-Af Amer) POC Glucose (mg/dL) 231 H 194 H 216 H Random Glucose Calcium Phosphorus Magnesium Total Bilirubin AST ALT Alkaline Phosphatase Total Protein Albumin Globulin Albumin/Globulin Ratio Ethanolamine Toxicology Panel Methyl Alcohol Level Isopropanol Acetone Level 08/14/18 08/14/18 08/14/18 05:55 11:26 18:17 WBC RBC Hgb Hct MCV MCH MCHC RDW Plt Count MPV Neut % (Auto) Lymph % (Auto) [place] % (Auto) Eos % (Auto) Baso % (Auto) Neut # (Auto) Lymph # (Auto) [place] # (Auto) Eos # (Auto) Baso # (Auto) Neutrophils % (Manual) Band Neutrophils % Lymphocytes % (Manual) Reactive Lymphs % Monocytes % (Manual) Nucleated RBC % Toxic Granulation Platelet Estimate Giant Platelets Hypochromasia (manual) Poikilocytosis (manual Anisocytosis (manual) Target Cells Puncture Site pCO2 pO2 HCO3 ABG pH ABG Total CO2 ABG O2 Saturation ABG Base Excess ABG Hemoglobin ABG Carboxyhemoglobin POC ABG HHb (Measured) ABG Methemoglobin Rei Test A-a O2 Difference Respiratory Index Hgb O2 Saturation Vent Mode Mechanical Rate FiO2 Tidal Volume PEEP Sodium Potassium Chloride Carbon Dioxide Anion Gap BUN Creatinine Est GFR ( Amer) Est GFR (Non-Af Amer) POC Glucose (mg/dL) 266 H 219 H 271 H Random Glucose Calcium Phosphorus Magnesium Total Bilirubin AST ALT Alkaline Phosphatase Total Protein Albumin Globulin Albumin/Globulin Ratio Ethanolamine Toxicology Panel Methyl Alcohol Level Isopropanol Acetone Level 08/14/18 08/15/18 08/15/18 23:30 05:19 11:17 WBC RBC Hgb Hct MCV MCH MCHC RDW Plt Count MPV Neut % (Auto) Lymph % (Auto) [place] % (Auto) Eos % (Auto) Baso % (Auto) Neut # (Auto) Lymph # (Auto) [place] # (Auto) Eos # (Auto) Baso # (Auto) Neutrophils % (Manual) Band Neutrophils % Lymphocytes % (Manual) Reactive Lymphs % Monocytes % (Manual) Nucleated RBC % Toxic Granulation Platelet Estimate Giant Platelets Hypochromasia (manual) Poikilocytosis (manual Anisocytosis (manual) Target Cells Puncture Site pCO2 pO2 HCO3 ABG pH ABG Total CO2 ABG O2 Saturation ABG Base Excess ABG Hemoglobin ABG Carboxyhemoglobin POC ABG HHb (Measured) ABG Methemoglobin Rei Test A-a O2 Difference Respiratory Index Hgb O2 Saturation Vent Mode Mechanical Rate FiO2 Tidal Volume PEEP Sodium Potassium Chloride Carbon Dioxide Anion Gap BUN Creatinine Est GFR ( Amer) Est GFR (Non-Af Amer) POC Glucose (mg/dL) 237 H 198 H 191 H Random Glucose Calcium Phosphorus Magnesium Total Bilirubin AST ALT Alkaline Phosphatase Total Protein Albumin Globulin Albumin/Globulin Ratio Ethanolamine Toxicology Panel Methyl Alcohol Level Isopropanol Acetone Level 08/15/18 08/16/18 08/16/18 17:50 00:16 05:00 WBC RBC Hgb Hct MCV MCH MCHC RDW Plt Count MPV Neut % (Auto) Lymph % (Auto) [place] % (Auto) Eos % (Auto) Baso % (Auto) Neut # (Auto) Lymph # (Auto) [place] # (Auto) Eos # (Auto) Baso # (Auto) Neutrophils % (Manual) Band Neutrophils % Lymphocytes % (Manual) Reactive Lymphs % Monocytes % (Manual) Nucleated RBC % Toxic Granulation Platelet Estimate Giant Platelets Hypochromasia (manual) Poikilocytosis (manual Anisocytosis (manual) Target Cells Puncture Site Rb pCO2 31 L pO2 99 HCO3 24.5 ABG pH 7.47 H ABG Total CO2 23.6 ABG O2 Saturation 99.5 H ABG Base Excess -0.6 ABG Hemoglobin 9.2 L ABG Carboxyhemoglobin 2.1 H POC ABG HHb (Measured) 0.5 ABG Methemoglobin 1.2 Rei Test Na A-a O2 Difference 76.0 Respiratory Index 0.8 Hgb O2 Saturation 96.2 Vent Mode Prvc Mechanical Rate 15 FiO2 30.0 Tidal Volume 500 PEEP 5 Sodium Potassium Chloride Carbon Dioxide Anion Gap BUN Creatinine Est GFR ( Amer) Est GFR (Non-Af Amer) POC Glucose (mg/dL) 205 H 146 H Random Glucose Calcium Phosphorus Magnesium Total Bilirubin AST ALT Alkaline Phosphatase Total Protein Albumin Globulin Albumin/Globulin Ratio Ethanolamine Toxicology Panel Methyl Alcohol Level Isopropanol Acetone Level 08/16/18 08/16/18 08/16/18 05:27 05:41 05:41 WBC 7.4 RBC 3.66 L Hgb 9.1 L Hct 28.8 L MCV 78.6 L MCH 24.8 L MCHC 31.6 L RDW 21.1 H Plt Count 90 L MPV 9.6 Neut % (Auto) 60.6 Lymph % (Auto) 11.9 L [place] % (Auto) 27.4 H Eos % (Auto) 0.0 Baso % (Auto) 0.1 Neut # (Auto) 4.5 Lymph # (Auto) 0.9 L [place] # (Auto) 2.0 H Eos # (Auto) 0.0 Baso # (Auto) 0.0 Neutrophils % (Manual) 57 Band Neutrophils % 5 H Lymphocytes % (Manual) 12 L Reactive Lymphs % 2 H Monocytes % (Manual) 24 H Nucleated RBC % 1 H Toxic Granulation Present Platelet Estimate Decreased L Giant Platelets Present Hypochromasia (manual) Slight Poikilocytosis (manual Slight Anisocytosis (manual) Slight Target Cells Slight Puncture Site pCO2 pO2 HCO3 ABG pH ABG Total CO2 ABG O2 Saturation ABG Base Excess ABG Hemoglobin ABG Carboxyhemoglobin POC ABG HHb (Measured) ABG Methemoglobin Rei Test A-a O2 Difference Respiratory Index Hgb O2 Saturation Vent Mode Mechanical Rate FiO2 Tidal Volume PEEP Sodium 149 H Potassium 3.6 Chloride 117 H Carbon Dioxide 21 L Anion Gap 15 BUN 72 H Creatinine 2.4 H Est GFR ( Amer) 34 Est GFR (Non-Af Amer) 28 POC Glucose (mg/dL) 171 H Random Glucose 160 H D Calcium 8.1 L Phosphorus 3.2 Magnesium 2.5 H Total Bilirubin 1.0 AST 69 H D ALT 52 Alkaline Phosphatase 92 Total Protein 6.4 Albumin 2.8 L Globulin 3.5 Albumin/Globulin Ratio 0.8 L Ethanolamine Toxicology Panel Methyl Alcohol Level Isopropanol Acetone Level Radiology Impressions: Radiology Impressions Chest X-Ray 08/16/18 07:00 IMPRESSION: Mild improvement in pulmonary vascular congestion. Interval increase in bilateral patchy pulmonary infiltrates, particularly at the bilateral upper lung zones. Continued clinical and radiographic monitoring advised. Tubes and catheters appear stable. Chest X-Ray 08/16/18 12:01 IMPRESSION: Improving pulmonary edema. Satisfactory position of endotracheal tube and nasogastric tube. Attending/Attestation - Attestation I have personally seen and examined this patient.: Yes I have fully participated in the care of the patient.: Yes I have reviewed all pertinent clinical information: Yes Notes (Text): 08/16/18 16:09 Patient seen and examined in the intensive care unit. Case discussed with housestaff in the morning rounds. Patient not tolerating weaning and was reintubated for ET tube obstruction secondary to blood clot Continue antibiotics Resume sedation Continue NG tube feeding Follow-up ABG and chest x-ray Renal function improving Case discussed with nephrology
--- NOTE | 2018-08-16 15:55 | RAD ---
Date of service: 08/16/2018 HISTORY: eval ett position s/p intubation COMPARISON: Multiple serial examinations preceding the most recent study: August 16, 2018. 07:13. FINDINGS: LUNGS: Improving pulmonary edema. PLEURA: No significant pleural effusion identified, no pneumothorax apparent. CARDIOVASCULAR: No atherosclerotic calcification present OSSEOUS STRUCTURES: No significant abnormalities. VISUALIZED UPPER ABDOMEN: Normal. OTHER FINDINGS: Satisfactory position ventilatory, nasogastric apparatus. IMPRESSION: Improving pulmonary edema. Satisfactory position of endotracheal tube and nasogastric tube.
--- NOTE | 2018-08-16 18:10 | CP.PCM.PN ---
Subjective - Date & Time of Evaluation Date of Evaluation: 08/16/18 Time of Evaluation: 07:00 - Subjective Subjective: seen on rounds remains intubated and alert renal function worse events noted labs and xrays reviewed orders signed Objective - Vital Signs/Intake and Output Vital Signs (last 24 hours): Temp Pulse Resp BP Pulse Ox 98 F 80 15 122/79 100 08/16/18 16:00 08/16/18 17:08 08/16/18 17:08 08/16/18 17:08 08/16/18 17:08 Intake and Output: 08/16/18 08/16/18 06:59 18:59 Intake Total 1061.7 1055.4 Output Total 1000 1225 Balance 61.7 -169.6 - Medications Medications: Current Medications Albuterol/Ipratropium (Duoneb 3 Mg/0.5 Mg (3 Ml) Ud) 3 ml INH RQ4 [facility] Last Admin: 08/16/18 16:48 Dose: 3 ml Famotidine (Pepcid) 20 mg IVP DAILY [facility] Last Admin: 08/16/18 09:10 Dose: 20 mg Heparin Sodium (Porcine) (Heparin) 5,000 units SC Q8 [facility] Last Admin: 08/16/18 13:52 Dose: 5,000 units Piperacillin Sod/Tazobactam (Sod 2.25 gm/ Sodium Chloride) 100 mls @ 200 mls/hr IVPB Q8H [facility]; Protocol Last Admin: 08/16/18 15:45 Dose: 200 mls/hr Dexmedetomidine HCl 400 mcg/ (Sodium Chloride) 100 mls @ 28.67 mls/hr IV TITR PRN; Protocol Last Titration: 08/16/18 17:21 Dose: 1 mcg/kg/hr, 20.48 mls/hr Sodium Chloride (Sodium Chloride 0.45%) 1,000 mls @ 60 mls/hr IV .[id number] [facility] Last Admin: 08/16/18 09:43 Dose: 60 mls/hr Insulin Human Regular (Novolin R) 0 unit SC Q6 [facility]; Protocol Last Admin: 08/16/18 17:54 Dose: Not Given Methylprednisolone (Solu-Medrol) 40 mg IVP DAILY [facility] Last Admin: 08/16/18 09:10 Dose: 40 mg Multivitamins/Vitamin C (Multi-Delyn Liquid) 5 ml PO DAILY [facility] Last Admin: 08/16/18 09:10 Dose: 5 ml - Labs Labs: 08/16/18 05:41 08/16/18 05:41 - Constitutional Appears: Non-toxic, Confused, Cachectic, Chronically Ill - Head Exam Head Exam: ATRAUMATIC, NORMAL INSPECTION, NORMOCEPHALIC - Eye Exam Eye Exam: EOMI, Normal appearance, PERRL Pupil Exam: NORMAL ACCOMODATION, PERRL - ENT Exam ENT Exam: Mucous Membranes Moist Additional comments: ETT + - Neck Exam Neck Exam: Full ROM, Normal Inspection. absent: Lymphadenopathy - Respiratory Exam Respiratory Exam: Clear to Ausculation Bilateral, NORMAL BREATHING PATTERN - Cardiovascular Exam Cardiovascular Exam: REGULAR RHYTHM, +S1, +S2. absent: Murmur - GI/Abdominal Exam GI & Abdominal Exam: Soft, Normal Bowel Sounds. absent: Tenderness - Rectal Exam Rectal Exam: Deferred - Exam Exam: Scrotal Swelling - Extremities Exam Extremities Exam: Full ROM, Normal Capillary Refill, Pedal Edema, Tenderness. absent: Joint Swelling - Back Exam Back Exam: NORMAL INSPECTION - Neurological Exam Neurological Exam: Alert, Awake, CN II-XII Intact. absent: Normal Gait (x), Oriented x3 Neuro motor strength exam: Left Upper Extremity: 3, Right Upper Extremity: 3, Left Lower Extremity: 3, Right Lower Extremity: 3 - Psychiatric Exam Psychiatric exam: Depressed - Skin Skin Exam: Dry, Warm Assessment and Plan (1) Alcohol abuse with intoxication Status: Acute (2) Cirrhosis Status: Acute (3) Hydrocele of testis Status: Acute (4) Pneumonia Status: Acute (5) Sepsis Status: Acute (6) Subdural hemorrhage Status: Acute (7) Alcoholic cirrhosis Status: Chronic - Assessment and Plan (Free Text) Assessment: cont IV antibiotics vent support weaning as tolerated
[2018-08-16 18:57] LABS: CREATININE, RANDOM URINE 47.7 mg/dL; URINE CREATININE 47.7 mg/dL
--- NOTE | 2018-08-16 21:38 | CP.PCM.PN ---
Subjective - Date & Time of Evaluation Date of Evaluation: 08/16/18 Time of Evaluation: 08:40 - Subjective Subjective: dict Objective - Vital Signs/Intake and Output Vital Signs (last 24 hours): Temp Pulse Resp BP Pulse Ox 97.7 F 74 22 148/83 100 08/16/18 20:00 08/16/18 20:09 08/16/18 20:09 08/16/18 20:09 08/16/18 20:09 Intake and Output: 08/16/18 08/17/18 18:59 06:59 Intake Total 1203.9 267.7 Output Total 1300 170 Balance -96.1 97.7 - Medications Medications: Current Medications Albuterol/Ipratropium (Duoneb 3 Mg/0.5 Mg (3 Ml) Ud) 3 ml INH RQ4 [facility] Last Admin: 08/16/18 19:39 Dose: 3 ml Famotidine (Pepcid) 20 mg IVP DAILY [facility] Last Admin: 08/16/18 09:10 Dose: 20 mg Heparin Sodium (Porcine) (Heparin) 5,000 units SC Q8 [facility] Last Admin: 08/16/18 21:07 Dose: 5,000 units Piperacillin Sod/Tazobactam (Sod 2.25 gm/ Sodium Chloride) 100 mls @ 200 mls/hr IVPB Q8H [facility]; Protocol Last Admin: 08/16/18 15:45 Dose: 200 mls/hr Dexmedetomidine HCl 400 mcg/ (Sodium Chloride) 100 mls @ 28.67 mls/hr IV TITR PRN; Protocol Last Titration: 08/16/18 21:17 Dose: 1.2 mcg/kg/hr, 24.57 mls/hr Sodium Chloride (Sodium Chloride 0.45%) 1,000 mls @ 60 mls/hr IV .[id number] [facility] Last Admin: 08/16/18 09:43 Dose: 60 mls/hr Insulin Human Regular (Novolin R) 0 unit SC Q6 [facility]; Protocol Last Admin: 08/16/18 17:54 Dose: Not Given Methylprednisolone (Solu-Medrol) 40 mg IVP DAILY [facility] Last Admin: 08/16/18 09:10 Dose: 40 mg Multivitamins/Vitamin C (Multi-Delyn Liquid) 5 ml PO DAILY [facility] Last Admin: 08/16/18 09:10 Dose: 5 ml - Labs Labs: 08/16/18 05:41 08/16/18 18:39
[2018-08-17] MEDS: Albuterol-Ipratrop 3 mg / 0.5 (3 ml) UD INH SCH ×6 (00:39→20:02)
[2018-08-17] MEDS: Dexmedetomidine Hydrochloride 400 MCG in Sodium Chloride 0.9% 96 ML IV PRN ×4 (00:41→20:20)
[2018-08-17] MEDS: Sodium Chloride 0.45% 1,000 ML IV SCH ×2 (02:30→06:24)
--- NOTE | 2018-08-17 02:42 | PN ---
DATE: 08/16/2018 SUBJECTIVE: The patient is afebrile, less congested, less shortness of breath, on ventilator. No fever. No chills. PHYSICAL EXAMINATION: VITAL SIGNS: Blood pressure /83, pulse 74, respiratory rate 22, temperature 98. LUNGS: Bilateral transmitted breath sounds. Bilateral crackles. Decreased air entry. CARDIOVASCULAR SYSTEM: S1, S2. Regular. ABDOMEN: Soft, nontender. Bowel sounds are positive. ASSESSMENT: 1. Alcoholism, alcohol intoxication and withdrawal. 2. Chronic kidney disease. 3. Alcoholic liver disease. 4. Pneumonia, respiratory failure. PLAN: Mechanical ventilator, attempt to weaning. Monitor the patient. Chino Cheung MD
[2018-08-17 06:01] LABS: BASO % 0.3 % (0.0-2.0); EOS % 0.4 % (0.0-4.0); HEMOGLOBIN 9.1 g/dL (12.0-18.0); LYMPH # 1.1 K/uL (1.0-4.3); LYMPH % 16.3 % (20.0-40.0); MEAN CELL VOLUME 79.2 fL (80.0-94.0); MEAN CORPUSCULAR HEMOGLOBIN 24.9 pg (27.0-31.0); MEAN CORPUSCULAR HGB CONC 31.4 g/dL (33.0-37.0); MONO # 1.6 K/uL (0.0-0.8); MONO % 24.4 % (0.0-10.0); NEUT # 3.9 K/uL (1.8-7.0); NEUT % 58.6 % (50.0-75.0); PLATELET COUNT 87 K/uL (130-400); RBC 3.68 Mil/uL (4.40-5.90); RED CELL DISTRIBUTION WIDTH 21.2 % (11.5-14.5); WHITE BLOOD COUNT 6.7 K/uL (4.8-10.8)
[2018-08-17 06:08] LABS: ABG ALLEN TEST POS; ARTERIAL BLOOD GAS HCO3 23.8 mmol/L (21-28); ARTERIAL BLOOD GAS HEMOGLOBIN 9.2 g/dL (11.7-17.4); ARTERIAL BLOOD GAS O2 SAT 99.4 % (95-98); ARTERIAL BLOOD GAS PCO2 34 mm/Hg (35-45); ARTERIAL BLOOD GAS PH 7.43 (7.35-7.45); ARTERIAL BLOOD GAS PO2 97 mm/Hg (80-100); ARTERIAL BLOOD GAS TCO2 23.6 mmol/L (22-28)
[2018-08-17] MEDS: (Novolin R) Insulin Human Regular 100 units/ml vial SC SCH ×4 (06:21→23:21)
[2018-08-17 06:45] LABS: ALB/GLOB RATIO 0.8 (1.0-2.1); CALCIUM 8.1 mg/dl (8.6-10.4)
--- NOTE | 2018-08-17 06:46 | CP.PCM.PN ---
<Jose Guadalupe Eduardo - Last Filed: 08/17/18 16:48> Subjective - Date & Time of Evaluation Date of Evaluation: 08/17/18 Time of Evaluation: 07:00 - Subjective Subjective: Nephro Progress Note for Dr. Lucas Service Jose Guadalupe Eduardo DO, IM PGY-3 Patient seen and examined at bedside in ICU. Remains intubated, on PRVC at 30% FiO2, sedated on precedex drip (increased from yesterday) due to continuing agitation and attempted line pulling. Today, Cr remains 2.4, continues to put out increasing urine via gay (2.4L yesterday, ~1.8 2 days prior). Objective - Vital Signs/Intake and Output Vital Signs (last 24 hours): Temp Pulse Resp BP Pulse Ox 96.6 F L 56 L 21 141/74 100 08/17/18 04:00 08/17/18 04:08 08/17/18 04:08 08/17/18 04:08 08/17/18 04:08 Intake and Output: 08/16/18 08/17/18 18:59 06:59 Intake Total 1203.9 1567.6 Output Total 1300 1000 Balance -96.1 567.6 - Medications Medications: Current Medications Albuterol/Ipratropium (Duoneb 3 Mg/0.5 Mg (3 Ml) Ud) 3 ml INH RQ4 [facility] Last Admin: 08/17/18 05:10 Dose: 3 ml Famotidine (Pepcid) 20 mg IVP DAILY [facility] Last Admin: 08/16/18 09:10 Dose: 20 mg Heparin Sodium (Porcine) (Heparin) 5,000 units SC Q8 [facility] Last Admin: 08/17/18 06:23 Dose: 5,000 units Dexmedetomidine HCl 400 mcg/ (Sodium Chloride) 100 mls @ 28.67 mls/hr IV TITR PRN; Protocol Last Titration: 08/17/18 06:21 Dose: 0.8 mcg/kg/hr, 16.4 mls/hr Sodium Chloride (Sodium Chloride 0.45%) 1,000 mls @ 60 mls/hr IV .[id number] [facility] Last Admin: 08/17/18 06:24 Dose: 60 mls/hr Ceftriaxone Sodium 1 gm/ (Sodium Chloride) 100 mls @ 100 mls/hr IVPB Q12H [facility]; Protocol Last Admin: 08/17/18 00:40 Dose: 100 mls/hr Insulin Human Regular (Novolin R) 0 unit SC Q6 [facility]; Protocol Last Admin: 08/17/18 06:21 Dose: Not Given Methylprednisolone (Solu-Medrol) 40 mg IVP DAILY [facility] Last Admin: 08/16/18 09:10 Dose: 40 mg Multivitamins/Vitamin C (Multi-Delyn Liquid) 5 ml PO DAILY [facility] Last Admin: 08/16/18 09:10 Dose: 5 ml - Labs Labs: 08/17/18 05:55 08/17/18 05:55 - Additional Findings Additional findings: - Constitutional Appears: Chronically Ill, intubated and sedated with precedex, not acutely distressed/agitated - Head Exam Head Exam: ATRAUMATIC, NORMOCEPHALIC - Eye Exam Eye Exam: Normal appearance. absent: Conjunctival injection, Scleral icterus Pupil Exam: absent: Irregular, Unequal - ENT Exam ENT Exam: Mucous Membranes Moist ETT in place, secured at lips by securement device NGT in place, secured with tegaderm - Neck Exam Neck exam: Negative for: Thyromegaly - Respiratory Exam intubated and ventilated, on 30% FiO2, overbreathing the ventilator, no accessory muscle or abdominal breathing appreciated - Cardiovascular Exam Cardiovascular Exam: RRR, +S1, +S2. absent: Bradycardia, Tachycardia, Diastolic murmur, Irregular Rhythm, JVD, +S4 - GI/Abdominal Exam GI & Abdominal Exam: Diminished Bowel Sounds. 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 Later became hypotensive and further altered, requiring intubation and ICU placement for close monitoring and care. Nephro was consulted for RAMIREZ/Acute renal failure. Plan: 1) Acute renal failure 2) Chronic EtOH abuse, undergoing withdrawal 3) Cirrhosis, likely 2/2 EtOH 4) Hypotension - resolved 5) Sepsis (source unclear) on empiric abx 6) Hypoxic respiratory failure requiring intubation 7) Hypernatremia -Acute renal failure, Cr maxed at 3, remains 2.4 today Ddx: ATN vs 2/2 substances (high osmolar gap without anion gap, isopropyl?) vs sepsis Renal/bladder US obtained, negative for hydronephrosis, negative for obstr uctive pathology May be component (contributory, not causative) due to elevated vanco levels after 3x doses, off vanco now Urine osm 503, serum osm 334, Urine Na 76, Urine Cr 47.7, Random Urine total protein 26, 24-hr Cr clearance 28 Continue to monitor daily Cr Maintain gay given hx urethral strictures -Worsening hypernatrema (149 -> 150), was hyponatremic to 127 on arrival but has continuously been increasing since arrival (135 -> 139 -> 146 -> 149) May be due to high salt load from Zosyn vs dehydration (not on IVF x several days, BUN continuously increasing) Increased despite 1/2 NS at 60cc/hr yesterday, but also putting out more urine yesterday; switch to D5W -CXR today appears to have worsening infiltrate vs effusion at bilateral bases, pending official read continues to oxygenate well on 30% FiO2 on ABG, paO2/FiO2 ratio > 300 -Continue abx as per ID, currently on Zosyn Initial blood cultures positive for Strep G, repeat cultures all negative -Avoid nephrotoxic agents as possible Seen, reviewed, and discussed with attending, Dr. Lucas. <Tony Lucas - Last Filed: 08/18/18 08:18> Objective - Vital Signs/Intake and Output Vital Signs (last 24 hours): Temp Pulse Resp BP Pulse Ox 97.5 F L 68 15 111/64 100 08/18/18 08:00 08/18/18 08:08 08/18/18 08:08 08/18/18 08:09 08/18/18 08:08 Intake and Output: 08/18/18 08/18/18 06:59 18:59 Intake Total 1930.7 341.8 Output Total 2355 275 Balance -424.3 66.8 - Medications Medications: Current Medications Albuterol/Ipratropium (Duoneb 3 Mg/0.5 Mg (3 Ml) Ud) 3 ml INH RQ4 [facility] Last Admin: 08/18/18 07:39 Dose: 3 ml Famotidine (Pepcid) 20 mg IVP DAILY [facility] Last Admin: 08/17/18 09:03 Dose: 20 mg Heparin Sodium (Porcine) (Heparin) 5,000 units SC Q12 [facility] Last Admin: 08/17/18 21:32 Dose: 5,000 units Dexmedetomidine HCl 400 mcg/ (Sodium Chloride) 100 mls @ 28.67 mls/hr IV TITR PRN; Protocol Last Titration: 08/18/18 07:30 Dose: 1.2 mcg/kg/hr, 24.57 mls/hr Ceftriaxone Sodium 1 gm/ (Sodium Chloride) 100 mls @ 100 mls/hr IVPB Q12H [facility]; Protocol Last Admin: 08/17/18 23:33 Dose: 100 mls/hr Dextrose (Dextrose 5% In Water 1000 Ml) 1,000 mls @ 75 mls/hr IV .[id number] [facility] Last Admin: 08/18/18 03:57 Dose: 75 mls/hr Potassium Chloride (Potassium Chloride 20 Meq/100 Ml) 20 meq in 100 mls @ 50 mls/hr IVPB Q2H [facility] Stop: 08/18/18 11:44 Insulin Human Regular (Novolin R) 0 unit SC Q6 [facility]; Protocol Last Admin: 08/18/18 06:15 Dose: Not Given Methylprednisolone (Solu-Medrol) 40 mg IVP DAILY [facility] Last Admin: 08/17/18 09:06 Dose: 40 mg Multivitamins/Vitamin C (Multi-Delyn Liquid) 5 ml PO DAILY [facility] Last Admin: 08/17/18 09:03 Dose: 5 ml - Labs Labs: 08/18/18 06:24 08/18/18 06:24 Attending/Attestation - Attestation I have personally seen and examined this patient.: Yes I have fully participated in the care of the patient.: Yes I have reviewed all pertinent clinical information, including history, physical exam and plan: Yes Notes (Text): Patient seen and examined; I agree with the resident's note as above with the following additions/edits: Acute renal failure, likely due to ATN in the setting of severe sepsis/septic shock; non-oliguric renal failure, serum creatinine at relative plateau after previously showing some improvement; Concern over again worsening CXR findings on R despite low FIO2 requirement on vent; patient was supposed to get chest CT but then got agitated; discussed with radiological defense officer; can given IV lasix but hypernatremia will worsen; will change IVF to D5W at 75 cc/hr to keep up with free water losses; Otherwise, hemodynamically stable with good perfusing BP; need to monitor UO closely to ensure patient doesn't get volume depleted.
[2018-08-17 08:23] LABS: LYMPHOCYTE 23 % (20-40); MONOCYTE 25 % (0-10); NEUTROPHIL 51 % (50-75); PLATELET ESTIMATE DECREASED (NORMAL); REACTIVE LYMPHOCYTES 1 % (0-0); TOTAL CELLS COUNTED 100
[2018-08-17 08:24] LABS: ANISOCYTOSIS SLIGHT; HYPOCHROMIC SLIGHT; LARGE PLATELETS PRESENT; POIKILOCYTOSIS SLIGHT
[2018-08-17 08:25] LABS: OVALOCYTES SLIGHT; TARGET CELLS SLIGHT
[2018-08-17] MEDS: Multiple Vitamins Oral Solution PO SCH (09:03)
[2018-08-17] MEDS: MethylPREDNISolone 40 mg Vial IVP SCH (09:06)
[2018-08-17] MEDS ORDERED: Sodium Chloride 0.45% 1,000 ML IV SCH (09:36)
[2018-08-17] MEDS ORDERED: Dextrose 5%/0.45% NS 1,000 ML IV SCH (10:30)
--- NOTE | 2018-08-17 13:48 | CP.PCM.PN ---
<Anamaria Garza - Last Filed: 08/17/18 13:44> Subjective - Date & Time of Evaluation Date of Evaluation: 08/17/18 Time of Evaluation: 13:44 - Subjective Subjective: Cardiology Progress Note for Dr. Callahan Patient seen and examined at bedside. Currently Intubated. He had to be reintubated yesterday due to respiratory distress. ROS unobtainable due to patient being sedated on precedex. Objective - Vital Signs/Intake and Output Vital Signs (last 24 hours): Temp Pulse Resp BP Pulse Ox 97.2 F L 52 L 21 148/75 100 08/17/18 12:00 08/17/18 13:09 08/17/18 13:09 08/17/18 13:14 08/17/18 13:09 Intake and Output: 08/17/18 08/17/18 06:59 18:59 Intake Total 1804.4 812.0 Output Total 1100 50 Balance 704.4 762.0 - Medications Medications: Current Medications Albuterol/Ipratropium (Duoneb 3 Mg/0.5 Mg (3 Ml) Ud) 3 ml INH RQ4 [facility] Last Admin: 08/17/18 07:55 Dose: 3 ml Famotidine (Pepcid) 20 mg IVP DAILY [facility] Last Admin: 08/17/18 09:03 Dose: 20 mg Heparin Sodium (Porcine) (Heparin) 5,000 units SC Q12 [facility] Dexmedetomidine HCl 400 mcg/ (Sodium Chloride) 100 mls @ 28.67 mls/hr IV TITR PRN; Protocol Last Titration: 08/17/18 06:21 Dose: 0.8 mcg/kg/hr, 16.4 mls/hr Ceftriaxone Sodium 1 gm/ (Sodium Chloride) 100 mls @ 100 mls/hr IVPB Q12H [facility]; Protocol Last Admin: 08/17/18 13:07 Dose: 100 mls/hr Dextrose (Dextrose 5% In Water 1000 Ml) 1,000 mls @ 75 mls/hr IV .[id number] [facility] Last Admin: 08/17/18 13:00 Dose: 75 mls/hr Insulin Human Regular (Novolin R) 0 unit SC Q6 [facility]; Protocol Last Admin: 08/17/18 12:00 Dose: 2 unit Methylprednisolone (Solu-Medrol) 40 mg IVP DAILY [facility] Last Admin: 08/17/18 09:06 Dose: 40 mg Multivitamins/Vitamin C (Multi-Delyn Liquid) 5 ml PO DAILY [facility] Last Admin: 08/17/18 09:03 Dose: 5 ml - Labs Labs: 08/17/18 05:55 08/17/18 05:55 - Additional Findings Additional findings: - Constitutional Appears: Chronically Ill, intubated and sedated with precedex, not acutely distressed/agitated - Head Exam Head Exam: ATRAUMATIC, NORMOCEPHALIC - Eye Exam Eye Exam: Normal appearance. absent: Conjunctival injection, Scleral icterus Pupil Exam: absent: Irregular, Unequal - ENT Exam ENT Exam: Mucous Membranes Moist ETT in place, secured at lips by securement device NGT in place, secured with tegaderm - Neck Exam Neck exam: Negative for: Thyromegaly - Respiratory Exam intubated and ventilated, on 30% FiO2, overbreathing the ventilator, no acc essory muscle or abdominal breathing appreciated - Cardiovascular Exam Cardiovascular Exam: RRR, +S1, +S2. absent: Bradycardia, Tachycardia, Diastolic murmur, Irregular Rhythm, JVD, +S4 - GI/Abdominal Exam GI & Abdominal Exam: Diminished Bowel Sounds. absent: Distended, Firm, Hyperactive Bowel Sounds, Hypoactive Bowel Sounds, Rigid - Extremities Exam Extremities exam: Positive for: pedal edema (Trace in ankles), pedal pulses present, wearing bilateral hand mitts - Neurological Exam Sedated on precedex. Arousable with sounds. 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 Later became hypotensive and further altered, requiring intubation and ICU placement for close monitoring and care. Cardiology Consulted for evaluation and treatment of ACS/CHF. Plan: HFpEF (EtoH Cardiomyopathy), ACS SVT Resolved. ECHO (08/11/18): Mildly dilated LV, Grade I diastolic Dysfunction, elevated atrial pressure. Mild - Moderate bi-atrial anlargement, Migral annular calcifications. RVSP=51mmHG, compatible w/ moderate pulm. htn. Labs: BNP(Adm) - 68640 Mgmt: Continue Medical Mgmt. Heparin 5000 Q12 Patient discussed with Dr. [place] Garza, PGY-2 <Pancho Callahan - Last Filed: 08/17/18 21:53> Objective - Vital Signs/Intake and Output Vital Signs (last 24 hours): Temp Pulse Resp BP Pulse Ox 97.0 F L 60 15 144/71 100 08/17/18 20:00 08/17/18 20:09 08/17/18 20:09 08/17/18 20:09 08/17/18 20:09 Intake and Output: 08/17/18 08/18/18 18:59 06:59 Intake Total 1771.1 477.7 Output Total 3800 825 Balance -2028.9 -347.3 - Medications Medications: Current Medications Albuterol/Ipratropium (Duoneb 3 Mg/0.5 Mg (3 Ml) Ud) 3 ml INH RQ4 [facility] Last Admin: 08/17/18 20:02 Dose: 3 ml Famotidine (Pepcid) 20 mg IVP DAILY [facility] Last Admin: 08/17/18 09:03 Dose: 20 mg Heparin Sodium (Porcine) (Heparin) 5,000 units SC Q12 [facility] Last Admin: 08/17/18 21:32 Dose: 5,000 units Dexmedetomidine HCl 400 mcg/ (Sodium Chloride) 100 mls @ 28.67 mls/hr IV TITR PRN; Protocol Last Titration: 08/17/18 21:50 Dose: 0.7 mcg/kg/hr, 14.33 mls/hr Ceftriaxone Sodium 1 gm/ (Sodium Chloride) 100 mls @ 100 mls/hr IVPB Q12H [facility]; Protocol Last Admin: 08/17/18 13:07 Dose: 100 mls/hr Dextrose (Dextrose 5% In Water 1000 Ml) 1,000 mls @ 75 mls/hr IV .[id number] [facility] Last Admin: 08/17/18 13:00 Dose: 75 mls/hr Insulin Human Regular (Novolin R) 0 unit SC Q6 [facility]; Protocol Last Admin: 08/17/18 18:00 Dose: 2 unit Methylprednisolone (Solu-Medrol) 40 mg IVP DAILY [facility] Last Admin: 08/17/18 09:06 Dose: 40 mg Multivitamins/Vitamin C (Multi-Delyn Liquid) 5 ml PO DAILY [facility] Last Admin: 08/17/18 09:03 Dose: 5 ml - Labs Labs: 08/17/18 05:55 08/17/18 05:55 Assessment and Plan - Assessment and Plan (Free Text) Plan: Patient seen and evaluated personally by me. Plan of care d/w the medical sales associate and as documented
--- NOTE | 2018-08-17 14:45 | RAD ---
Chest x-ray single frontal view HISTORY: Intubated patient. Comparison: 08/16/2018 Findings: Low lying endotracheal tube approximately 1.3 centimeters above the sterling. NG tube extending into the stomach. Prominent diffuse bilateral pleural parenchymal opacities throughout the lungs. More confluent consolidation seen within mid to lower lung zones with bilateral pleural effusions. Mild cardiomegaly. Biapical pleural thickening with upper lobe granulomatous changes. Degenerative changes in the spine. Impression: Low lying endotracheal tube approximately 1.3 centimeters above the sterling. NG tube extending into the stomach. Prominent diffuse bilateral pleural parenchymal opacities throughout the lungs. More confluent consolidation seen within mid to lower lung zones with bilateral pleural effusions. Mild cardiomegaly. Biapical pleural thickening with upper lobe granulomatous changes. Degenerative changes in the spine.
--- NOTE | 2018-08-17 17:14 | CP.PCM.PN ---
Subjective - Date & Time of Evaluation Date of Evaluation: 08/17/18 Time of Evaluation: 09:00 - Subjective Subjective: events noted IV rx to continue Objective - Vital Signs/Intake and Output Vital Signs (last 24 hours): Temp Pulse Resp BP Pulse Ox 99.5 F 59 L 22 137/75 99 08/17/18 16:00 08/17/18 16:09 08/17/18 16:09 08/17/18 16:00 08/17/18 16:09 Intake and Output: 08/17/18 08/17/18 06:59 18:59 Intake Total 1804.4 1261.4 Output Total 1100 2800 Balance 704.4 -1538.6 - Medications Medications: Current Medications Albuterol/Ipratropium (Duoneb 3 Mg/0.5 Mg (3 Ml) Ud) 3 ml INH RQ4 [facility] Last Admin: 08/17/18 16:24 Dose: 3 ml Famotidine (Pepcid) 20 mg IVP DAILY [facility] Last Admin: 08/17/18 09:03 Dose: 20 mg Heparin Sodium (Porcine) (Heparin) 5,000 units SC Q12 [facility] Dexmedetomidine HCl 400 mcg/ (Sodium Chloride) 100 mls @ 28.67 mls/hr IV TITR PRN; Protocol Last Titration: 08/17/18 06:21 Dose: 0.8 mcg/kg/hr, 16.4 mls/hr Ceftriaxone Sodium 1 gm/ (Sodium Chloride) 100 mls @ 100 mls/hr IVPB Q12H [facility]; Protocol Last Admin: 08/17/18 13:07 Dose: 100 mls/hr Dextrose (Dextrose 5% In Water 1000 Ml) 1,000 mls @ 75 mls/hr IV .[id number] [facility] Last Admin: 08/17/18 13:00 Dose: 75 mls/hr Insulin Human Regular (Novolin R) 0 unit SC Q6 [facility]; Protocol Last Admin: 08/17/18 12:00 Dose: 2 unit Methylprednisolone (Solu-Medrol) 40 mg IVP DAILY [facility] Last Admin: 08/17/18 09:06 Dose: 40 mg Multivitamins/Vitamin C (Multi-Delyn Liquid) 5 ml PO DAILY [facility] Last Admin: 08/17/18 09:03 Dose: 5 ml - Labs Labs: 08/17/18 05:55 08/17/18 05:55 - Constitutional Appears: No Acute Distress, Confused, Chronically Ill - Head Exam Head Exam: ATRAUMATIC, NORMAL INSPECTION, NORMOCEPHALIC - Eye Exam Eye Exam: EOMI, Normal appearance, PERRL Pupil Exam: NORMAL ACCOMODATION, PERRL - ENT Exam ENT Exam: Mucous Membranes Moist, Normal Exam - Neck Exam Neck Exam: Full ROM, Normal Inspection. absent: Lymphadenopathy - Respiratory Exam Respiratory Exam: Clear to Ausculation Bilateral, NORMAL BREATHING PATTERN - Cardiovascular Exam Cardiovascular Exam: REGULAR RHYTHM, +S1, +S2. absent: Murmur - GI/Abdominal Exam GI & Abdominal Exam: Soft, Normal Bowel Sounds. absent: Tenderness - Rectal Exam Rectal Exam: Deferred - Exam Exam: Scrotal Swelling - Extremities Exam Extremities Exam: Full ROM, Normal Capillary Refill, Pedal Edema. absent: Calf Tenderness, Joint Swelling, Normal Inspection, Tenderness - Back Exam Back Exam: NORMAL INSPECTION - Neurological Exam Neurological Exam: Alert, Awake, CN II-XII Intact. absent: Normal Gait, Oriented x3 - Psychiatric Exam Psychiatric exam: Normal Affect, Normal Mood - Skin Skin Exam: Dry, Intact, Normal Color, Warm Assessment and Plan (1) Alcohol abuse with intoxication Status: Acute (2) Cirrhosis Status: Acute (3) Hydrocele of testis Status: Acute (4) Pneumonia Status: Acute (5) Sepsis Status: Acute (6) Subdural hemorrhage Status: Acute (7) Alcoholic cirrhosis Status: Chronic - Assessment and Plan (Free Text) Assessment: improving slowly cont supportive care
--- NOTE | 2018-08-17 18:19 | CP.CCUPN ---
<Charbel Steinberg - Last Filed: 08/17/18 18:09> CCU Subjective - Physician Review Subjective (Free Text): 08/14/18 14:46 PGY-1 Critical Care Progress Note for Dr. Shay Patient seen and examined at bedside. No acute events overnight. Patient remains intubated. Attempted CT chest today to better assess pleural effusions - patient did not tolerate CT as he was agitated and combative. ROS unable to be obtained. CCU Objective - Vital Signs / Intake & Output Vital Signs (Last 4 hours): Vital Signs Temp Pulse Resp BP Pulse Ox 08/17/18 17:09 52 L 16 100 08/17/18 17:00 58 L 20 146/74 100 08/17/18 16:09 59 L 22 99 08/17/18 16:00 99.5 F 55 L 18 137/75 100 08/17/18 15:09 57 L 20 100 08/17/18 15:00 57 L 19 149/75 100 Intake and Output (Last 8hrs): Intake & Output 08/17/18 08/17/18 08/17/18 06:59 14:59 22:59 Intake Total 1271.1 970.0 405.7 Output Total 372 04 4965 Balance 521.1 920.0 -2344.3 Weight 174 lb 2.643 oz Intake: IV 201.1 Intake, IV Amount 750.0 650.0 285.7 Right Forearm 560 550 225 Right Hand 190.0 100.0 60.7 Tube Feeding 320 320 120 Output: Urine 112 77 2254 Urethral ([place]) [phone] Other: # Bowel Movements 0 0 - Physical Exam Head: Positive for: Atraumatic, Normocephalic Mouth: Positive for: Drooling Respiratory/Chest: Positive for: Good Air Exchange, Other (intubated, on vent). Negative for: Accessory Muscle Use Cardiovascular: Positive for: Normal S1, S2, Tachycardic Abdomen: Positive for: Normal Bowel Sounds Lower Extremity: Positive for: Normal Inspection Neurological: Negative for: GCS=15, Speech Normal - Medications Active Medications: Active Medications Generic Name Dose Route Start Last Admin Trade Name Freq PRN Reason Stop Dose Admin Albuterol/Ipratropium 3 ml 08/12/18 20:00 08/17/18 16:24 Duoneb 3 Mg/0.5 Mg (3 Ml) Ud INH 3 ml RQ4 ASHLEIGH Administration Famotidine 20 mg 08/11/18 10:00 08/17/18 09:03 Pepcid IVP 20 mg DAILY ASHLEIGH Administration Heparin Sodium (Porcine) 5,000 units 08/17/18 22:00 Heparin SC Q12 ASHLEIGH Dexmedetomidine HCl 400 mcg/ 100 mls @ 28.67 mls/hr 08/15/18 23:14 08/17/18 06:21 Sodium Chloride IV 0.8 mcg/kg/hr TITR PRN 16.4 mls/hr Titration Protocol 1.4 MCG/KG/HR Ceftriaxone Sodium 1 gm/ 100 mls @ 100 mls/hr 08/17/18 00:15 08/17/18 13:07 Sodium Chloride IVPB 100 mls/hr Q12H ASHLEIGH Administration Protocol Dextrose 1,000 mls @ 75 mls/hr 08/17/18 12:15 08/17/18 13:00 Dextrose 5% In Water 1000 Ml IV 75 mls/hr .[id number] ASHLEIGH Administration Insulin Human Regular 0 unit 08/13/18 00:00 08/17/18 18:00 Novolin R SC 2 unit Q6 ASHLEIGH Administration Protocol Methylprednisolone 40 mg 08/14/18 10:00 08/17/18 09:06 Solu-Medrol IVP 40 mg DAILY ASHLEIGH Administration Multivitamins/Vitamin C 5 ml 08/11/18 10:00 08/17/18 09:03 Multi-Delyn Liquid PO 5 ml DAILY ASHLEIGH Administration - Patient Studies Lab Studies: Microbiology Studies 08/15/18 04:42 Blood Culture - Preliminary Blood NO GROWTH AFTER 48 HOURS 08/15/18 04:42 Blood Culture - Preliminary Blood NO GROWTH AFTER 48 HOURS Lab Studies 08/17/18 08/17/18 08/17/18 Range/Units 05:55 05:55 05:10 WBC 6.7 (4.8-10.8) K/uL RBC 3.68 L (4.40-5.90) Mil/uL Hgb 9.1 L (12.0-18.0) g/dL Hct 29.1 L (35.0-51.0) % MCV 79.2 L (80.0-94.0) fL MCH 24.9 L (27.0-31.0) pg MCHC 31.4 L (33.0-37.0) g/dL RDW 21.2 H (11.5-14.5) % Plt Count 87 L (130-400) K/uL MPV 10.0 (7.2-11.7) fL Neut % (Auto) 58.6 (50.0-75.0) % Lymph % (Auto) 16.3 L (20.0-40.0) % [place] % (Auto) 24.4 H (0.0-10.0) % Eos % (Auto) 0.4 (0.0-4.0) % Baso % (Auto) 0.3 (0.0-2.0) % Neut # (Auto) 3.9 (1.8-7.0) K/uL Lymph # (Auto) 1.1 (1.0-4.3) K/uL [place] # (Auto) 1.6 H (0.0-0.8) K/uL Eos # (Auto) 0.0 (0.0-0.7) K/uL Baso # (Auto) 0.0 (0.0-0.2) K/uL Neutrophils % (Manual) 51 (50-75) % Lymphocytes % (Manual) 23 (20-40) % Reactive Lymphs % 1 H (0-0) % Monocytes % (Manual) 25 H (0-10) % Platelet Estimate Decreased L (NORMAL) Large Platelets Present Hypochromasia (manual) Slight Poikilocytosis (manual Slight Anisocytosis (manual) Slight Target Cells Slight Ovalocytes Slight Puncture Site L rad pCO2 34 L (35-45) mm/Hg pO2 97 (80-100) mm/Hg HCO3 23.8 (21-28) mmol/L ABG pH 7.43 (7.35-7.45) ABG Total CO2 23.6 (22-28) mmol/L ABG O2 Saturation 99.4 H (95-98) % ABG Base Excess -1.4 (-2.0-3.0) mmol/L ABG Hemoglobin 9.2 L (11.7-17.4) g/dL ABG Carboxyhemoglobin 2.4 H (0.5-1.5) % POC ABG HHb (Measured) 0.6 (0.0-5.0) % ABG Methemoglobin 1.0 (0.0-3.0) % Rei Test Pos A-a O2 Difference 74.0 mm/Hg Respiratory Index 0.8 Hgb O2 Saturation 96.0 (95.0-98.0) % Vent Mode Prvc Mechanical Rate 15 FiO2 30.0 % Tidal Volume 500 PEEP 5 Sodium 150 H (132-148) mmol/L Potassium 3.8 (3.6-5.2) mmol/L Chloride 116 H (98-107) mmol/L Carbon Dioxide 21 L (22-30) mmol/L Anion Gap 16 (10-20) BUN 76 H (9-20) mg/dL Creatinine 2.4 H (0.8-1.5) mg/dL Est GFR ( Amer) 34 Est GFR (Non-Af Amer) 28 Random Glucose 143 H (75-110) mg/dL Calcium 8.1 L (8.6-10.4) mg/dl Phosphorus 3.3 (2.5-4.5) mg/dL Magnesium 2.3 (1.6-2.3) mg/dL Total Bilirubin 1.0 (0.2-1.3) mg/dL AST 80 H (17-59) U/L ALT 56 (21-72) U/L Alkaline Phosphatase 118 (38-126) U/L Total Protein 6.6 (6.3-8.3) g/dL Albumin 3.0 L (3.5-5.0) g/dL Globulin 3.6 (2.2-3.9) gm/dL Albumin/Globulin Ratio 0.8 L (1.0-2.1) Urine Osmolality (300-1000) mosm/kg Ur Random Creatinine mg/dL Ur Random Sodium mmol/L Urine Collection Time HRS Urine Total Volume mL Creatinine Clearance (107-139) mL/min 08/16/18 Range/Units 18:39 WBC (4.8-10.8) K/uL RBC (4.40-5.90) Mil/uL Hgb (12.0-18.0) g/dL Hct (35.0-51.0) % MCV (80.0-94.0) fL MCH (27.0-31.0) pg MCHC (33.0-37.0) g/dL RDW (11.5-14.5) % Plt Count (130-400) K/uL MPV (7.2-11.7) fL Neut % (Auto) (50.0-75.0) % Lymph % (Auto) (20.0-40.0) % [place] % (Auto) (0.0-10.0) % Eos % (Auto) (0.0-4.0) % Baso % (Auto) (0.0-2.0) % Neut # (Auto) (1.8-7.0) K/uL Lymph # (Auto) (1.0-4.3) K/uL [place] # (Auto) (0.0-0.8) K/uL Eos # (Auto) (0.0-0.7) K/uL Baso # (Auto) (0.0-0.2) K/uL Neutrophils % (Manual) (50-75) % Lymphocytes % (Manual) (20-40) % Reactive Lymphs % (0-0) % Monocytes % (Manual) (0-10) % Platelet Estimate (NORMAL) Large Platelets Hypochromasia (manual) Poikilocytosis (manual Anisocytosis (manual) Target Cells Ovalocytes Puncture Site pCO2 (35-45) mm/Hg pO2 (80-100) mm/Hg HCO3 (21-28) mmol/L ABG pH (7.35-7.45) ABG Total CO2 (22-28) mmol/L ABG O2 Saturation (95-98) % ABG Base Excess (-2.0-3.0) mmol/L ABG Hemoglobin (11.7-17.4) g/dL ABG Carboxyhemoglobin (0.5-1.5) % POC ABG HHb (Measured) (0.0-5.0) % ABG Methemoglobin (0.0-3.0) % Rei Test A-a O2 Difference mm/Hg Respiratory Index Hgb O2 Saturation (95.0-98.0) % Vent Mode Mechanical Rate FiO2 % Tidal Volume PEEP Sodium (132-148) mmol/L Potassium (3.6-5.2) mmol/L Chloride (98-107) mmol/L Carbon Dioxide (22-30) mmol/L Anion Gap (10-20) BUN (9-20) mg/dL Creatinine 2.4 H (0.8-1.5) mg/dL Est GFR ( Amer) Est GFR (Non-Af Amer) Random Glucose (75-110) mg/dL Calcium (8.6-10.4) mg/dl Phosphorus (2.5-4.5) mg/dL Magnesium (1.6-2.3) mg/dL Total Bilirubin (0.2-1.3) mg/dL AST (17-59) U/L ALT (21-72) U/L Alkaline Phosphatase (38-126) U/L Total Protein (6.3-8.3) g/dL Albumin (3.5-5.0) g/dL Globulin (2.2-3.9) gm/dL Albumin/Globulin Ratio (1.0-2.1) Urine Osmolality 503 (300-1000) mosm/kg Ur Random Creatinine 47.7 mg/dL Ur Random Sodium 76 mmol/L Urine Collection Time 24 HRS Urine Total Volume 2125 mL Creatinine Clearance 28.0 L (107-139) mL/min Laboratory Results - last 24 hr 08/16/18 08/17/18 08/17/18 18:39 05:10 05:55 WBC 6.7 RBC 3.68 L Hgb 9.1 L Hct 29.1 L MCV 79.2 L MCH 24.9 L MCHC 31.4 L RDW 21.2 H Plt Count 87 L MPV 10.0 Neut % (Auto) 58.6 Lymph % (Auto) 16.3 L [place] % (Auto) 24.4 H Eos % (Auto) 0.4 Baso % (Auto) 0.3 Neut # (Auto) 3.9 Lymph # (Auto) 1.1 [place] # (Auto) 1.6 H Eos # (Auto) 0.0 Baso # (Auto) 0.0 Neutrophils % (Manual) 51 Lymphocytes % (Manual) 23 Reactive Lymphs % 1 H Monocytes % (Manual) 25 H Platelet Estimate Decreased L Large Platelets Present Hypochromasia (manual) Slight Poikilocytosis (manual Slight Anisocytosis (manual) Slight Target Cells Slight Ovalocytes Slight Puncture Site L rad pCO2 34 L pO2 97 HCO3 23.8 ABG pH 7.43 ABG Total CO2 23.6 ABG O2 Saturation 99.4 H ABG Base Excess -1.4 ABG Hemoglobin 9.2 L ABG Carboxyhemoglobin 2.4 H POC ABG HHb (Measured) 0.6 ABG Methemoglobin 1.0 Rei Test Pos A-a O2 Difference 74.0 Respiratory Index 0.8 Hgb O2 Saturation 96.0 Vent Mode Prvc Mechanical Rate 15 FiO2 30.0 Tidal Volume 500 PEEP 5 Sodium Potassium Chloride Carbon Dioxide Anion Gap BUN Creatinine 2.4 H Est GFR ( Amer) Est GFR (Non-Af Amer) Random Glucose Calcium Phosphorus Magnesium Total Bilirubin AST ALT Alkaline Phosphatase Total Protein Albumin Globulin Albumin/Globulin Ratio Urine Osmolality 503 Ur Random Creatinine 47.7 Ur Random Sodium 76 Urine Collection Time 24 Urine Total Volume 2125 Creatinine Clearance 28.0 L 08/17/18 05:55 WBC RBC Hgb Hct MCV MCH MCHC RDW Plt Count MPV Neut % (Auto) Lymph % (Auto) [place] % (Auto) Eos % (Auto) Baso % (Auto) Neut # (Auto) Lymph # (Auto) [place] # (Auto) Eos # (Auto) Baso # (Auto) Neutrophils % (Manual) Lymphocytes % (Manual) Reactive Lymphs % Monocytes % (Manual) Platelet Estimate Large Platelets Hypochromasia (manual) Poikilocytosis (manual Anisocytosis (manual) Target Cells Ovalocytes Puncture Site pCO2 pO2 HCO3 ABG pH ABG Total CO2 ABG O2 Saturation ABG Base Excess ABG Hemoglobin ABG Carboxyhemoglobin POC ABG HHb (Measured) ABG Methemoglobin Rei Test A-a O2 Difference Respiratory Index Hgb O2 Saturation Vent Mode Mechanical Rate FiO2 Tidal Volume PEEP Sodium 150 H Potassium 3.8 Chloride 116 H Carbon Dioxide 21 L Anion Gap 16 BUN 76 H Creatinine 2.4 H Est GFR ( Amer) 34 Est GFR (Non-Af Amer) 28 Random Glucose 143 H Calcium 8.1 L Phosphorus 3.3 Magnesium 2.3 Total Bilirubin 1.0 AST 80 H ALT 56 Alkaline Phosphatase 118 Total Protein 6.6 Albumin 3.0 L Globulin 3.6 Albumin/Globulin Ratio 0.8 L Urine Osmolality Ur Random Creatinine Ur Random Sodium Urine Collection Time Urine Total Volume Creatinine Clearance Radiology Impressions: Radiology Impressions Chest X-Ray 08/17/18 06:00 Impression: Low lying endotracheal tube approximately 1.3 centimeters above the ster[place]. NG tube extending into the stomach. Prominent diffuse bilateral pleural parenchymal opacities throughout the lungs. More confluent consolidation seen within mid to lower lung zones with bilateral pleural effusions. Mild cardiomegaly. Biapical pleural thickening with upper lobe granulomatous changes. Degenerative changes in the spine. Fingerstick Blood Sugar Results: 145 Review of Systems - Review of Systems Systems not reviewed;Unavailable: Intubated Assessment/Plan - Assessment and Plan (Free Text) Assessment: Pulm Hypoxic respiratory failure, COPD -Intubated 08/12, PRVC. -Solumedrol 40 mg IV daily -Sputum cx NEGATIVE - final -Rocephin 1 gm Q12 for PNA coverage -Extubated and re-intubated 08/16 for worsening respiratory function on vent - sat improved on re-intubation. Remains on vent. -Patient went for CT chest - could not be completed due to patient agitated and restless. Cardio -SVT resolved, NSR on monitor HR 80s -D/w patient possible need for ablation outpatient Neuro AMS, DTs -Continue to monitor -Precedex ggt -Attempted d/c sedation with restraints. Patient continues to be agitated, out of window for withdrawal symptoms. Renal RAMIREZ -Cr improving -Pre-renal --> BUN mildly-elevated Endo -Anion gap metablic acidosis - DKA vs uremia vs lactic acidosis vs various causes -Resolved ID Sepsis, strep bacteremia -ID consulted, Dr. Moss -Blood cx - Group G strep -cont zosyn -Repeat blood cultures neg x48 hours -Monitor vitals Ppx -Heparin SCC Q8 -Precedex Assessment and plan d/w Dr. Jaspal Steinberg, PGY-1 <Jarred Shay - Last Filed: 08/17/18 18:39> CCU Objective - Vital Signs / Intake & Output Vital Signs (Last 4 hours): Vital Signs Temp Pulse Resp BP Pulse Ox 08/17/18 18:09 132/71 08/17/18 18:00 58 L 18 132/71 100 08/17/18 17:09 52 L 16 100 08/17/18 17:00 58 L 20 146/74 100 08/17/18 16:09 59 L 22 99 08/17/18 16:00 99.5 F 55 L 18 137/75 100 08/17/18 15:09 57 L 20 100 08/17/18 15:00 57 L 19 149/75 100 Intake and Output (Last 8hrs): Intake & Output 08/17/18 08/17/18 08/17/18 06:59 14:59 22:59 Intake Total 1271.1 970.0 730.7 Output Total 304 26 3675 Balance 521.1 920.0 -3019.3 Weight 174 lb 2.643 oz Intake: IV 201.1 Intake, IV Amount 750.0 650.0 370.7 Right Forearm 560 550 300 Right Hand 190.0 100.0 70.7 Tube Feeding 320 320 160 Other 200 Output: Urine [phone] Urethral ([place]) [phone] Other: # Bowel Movements 0 0 - Medications Active Medications: Active Medications Generic Name Dose Route Start Last Admin Trade Name Freq PRN Reason Stop Dose Admin Albuterol/Ipratropium 3 ml 08/12/18 20:00 08/17/18 16:24 Duoneb 3 Mg/0.5 Mg (3 Ml) Ud INH 3 ml RQ4 ASHLEIGH Administration Famotidine 20 mg 08/11/18 10:00 08/17/18 09:03 Pepcid IVP 20 mg DAILY ASHLEIGH Administration Heparin Sodium (Porcine) 5,000 units 08/17/18 22:00 Heparin SC Q12 ASHLEIGH Dexmedetomidine HCl 400 mcg/ 100 mls @ 28.67 mls/hr 08/15/18 23:14 08/17/18 06:21 Sodium Chloride IV 0.8 mcg/kg/hr TITR PRN 16.4 mls/hr Titration Protocol 1.4 MCG/KG/HR Ceftriaxone Sodium 1 gm/ 100 mls @ 100 mls/hr 08/17/18 00:15 08/17/18 13:07 Sodium Chloride IVPB 100 mls/hr Q12H ASHLEIGH Administration Protocol Dextrose 1,000 mls @ 75 mls/hr 08/17/18 12:15 08/17/18 13:00 Dextrose 5% In Water 1000 Ml IV 75 mls/hr .[id number] ASHLEIGH Administration Insulin Human Regular 0 unit 08/13/18 00:00 08/17/18 18:00 Novolin R SC 2 unit Q6 ASHLEIGH Administration Protocol Methylprednisolone 40 mg 08/14/18 10:00 08/17/18 09:06 Solu-Medrol IVP 40 mg DAILY ASHLEIGH Administration Multivitamins/Vitamin C 5 ml 08/11/18 10:00 08/17/18 09:03 Multi-Delyn Liquid PO 5 ml DAILY ASHLEIGH Administration - Patient Studies Lab Studies: Microbiology Studies 08/15/18 04:42 Blood Culture - Preliminary Blood NO GROWTH AFTER 48 HOURS 08/15/18 04:42 Blood Culture - Preliminary Blood NO GROWTH AFTER 48 HOURS Lab Studies 08/17/18 08/17/18 08/17/18 Range/Units 05:55 05:55 05:10 WBC 6.7 (4.8-10.8) K/uL RBC 3.68 L (4.40-5.90) Mil/uL Hgb 9.1 L (12.0-18.0) g/dL Hct 29.1 L (35.0-51.0) % MCV 79.2 L (80.0-94.0) fL MCH 24.9 L (27.0-31.0) pg MCHC 31.4 L (33.0-37.0) g/dL RDW 21.2 H (11.5-14.5) % Plt Count 87 L (130-400) K/uL MPV 10.0 (7.2-11.7) fL Neut % (Auto) 58.6 (50.0-75.0) % Lymph % (Auto) 16.3 L (20.0-40.0) % [place] % (Auto) 24.4 H (0.0-10.0) % Eos % (Auto) 0.4 (0.0-4.0) % Baso % (Auto) 0.3 (0.0-2.0) % Neut # (Auto) 3.9 (1.8-7.0) K/uL Lymph # (Auto) 1.1 (1.0-4.3) K/uL [place] # (Auto) 1.6 H (0.0-0.8) K/uL Eos # (Auto) 0.0 (0.0-0.7) K/uL Baso # (Auto) 0.0 (0.0-0.2) K/uL Neutrophils % (Manual) 51 (50-75) % Lymphocytes % (Manual) 23 (20-40) % Reactive Lymphs % 1 H (0-0) % Monocytes % (Manual) 25 H (0-10) % Platelet Estimate Decreased L (NORMAL) Large Platelets Present Hypochromasia (manual) Slight Poikilocytosis (manual Slight Anisocytosis (manual) Slight Target Cells Slight Ovalocytes Slight Puncture Site L rad pCO2 34 L (35-45) mm/Hg pO2 97 (80-100) mm/Hg HCO3 23.8 (21-28) mmol/L ABG pH 7.43 (7.35-7.45) ABG Total CO2 23.6 (22-28) mmol/L ABG O2 Saturation 99.4 H (95-98) % ABG Base Excess -1.4 (-2.0-3.0) mmol/L ABG Hemoglobin 9.2 L (11.7-17.4) g/dL ABG Carboxyhemoglobin 2.4 H (0.5-1.5) % POC ABG HHb (Measured) 0.6 (0.0-5.0) % ABG Methemoglobin 1.0 (0.0-3.0) % Rei Test Pos A-a O2 Difference 74.0 mm/Hg Respiratory Index 0.8 Hgb O2 Saturation 96.0 (95.0-98.0) % Vent Mode Prvc Mechanical Rate 15 FiO2 30.0 % Tidal Volume 500 PEEP 5 Sodium 150 H (132-148) mmol/L Potassium 3.8 (3.6-5.2) mmol/L Chloride 116 H (98-107) mmol/L Carbon Dioxide 21 L (22-30) mmol/L Anion Gap 16 (10-20) BUN 76 H (9-20) mg/dL Creatinine 2.4 H (0.8-1.5) mg/dL Est GFR ( Amer) 34 Est GFR (Non-Af Amer) 28 Random Glucose 143 H (75-110) mg/dL Calcium 8.1 L (8.6-10.4) mg/dl Phosphorus 3.3 (2.5-4.5) mg/dL Magnesium 2.3 (1.6-2.3) mg/dL Total Bilirubin 1.0 (0.2-1.3) mg/dL AST 80 H (17-59) U/L ALT 56 (21-72) U/L Alkaline Phosphatase 118 (38-126) U/L Total Protein 6.6 (6.3-8.3) g/dL Albumin 3.0 L (3.5-5.0) g/dL Globulin 3.6 (2.2-3.9) gm/dL Albumin/Globulin Ratio 0.8 L (1.0-2.1) Urine Osmolality (300-1000) mosm/kg Ur Random Creatinine mg/dL Ur Random Sodium mmol/L Urine Collection Time HRS Urine Total Volume mL Creatinine Clearance (107-139) mL/min 08/16/18 Range/Units 18:39 WBC (4.8-10.8) K/uL RBC (4.40-5.90) Mil/uL Hgb (12.0-18.0) g/dL Hct (35.0-51.0) % MCV (80.0-94.0) fL MCH (27.0-31.0) pg MCHC (33.0-37.0) g/dL RDW (11.5-14.5) % Plt Count (130-400) K/uL MPV (7.2-11.7) fL Neut % (Auto) (50.0-75.0) % Lymph % (Auto) (20.0-40.0) % [place] % (Auto) (0.0-10.0) % Eos % (Auto) (0.0-4.0) % Baso % (Auto) (0.0-2.0) % Neut # (Auto) (1.8-7.0) K/uL Lymph # (Auto) (1.0-4.3) K/uL [place] # (Auto) (0.0-0.8) K/uL Eos # (Auto) (0.0-0.7) K/uL Baso # (Auto) (0.0-0.2) K/uL Neutrophils % (Manual) (50-75) % Lymphocytes % (Manual) (20-40) % Reactive Lymphs % (0-0) % Monocytes % (Manual) (0-10) % Platelet Estimate (NORMAL) Large Platelets Hypochromasia (manual) Poikilocytosis (manual Anisocytosis (manual) Target Cells Ovalocytes Puncture Site pCO2 (35-45) mm/Hg pO2 (80-100) mm/Hg HCO3 (21-28) mmol/L ABG pH (7.35-7.45) ABG Total CO2 (22-28) mmol/L ABG O2 Saturation (95-98) % ABG Base Excess (-2.0-3.0) mmol/L ABG Hemoglobin (11.7-17.4) g/dL ABG Carboxyhemoglobin (0.5-1.5) % POC ABG HHb (Measured) (0.0-5.0) % ABG Methemoglobin (0.0-3.0) % Rei Test A-a O2 Difference mm/Hg Respiratory Index Hgb O2 Saturation (95.0-98.0) % Vent Mode Mechanical Rate FiO2 % Tidal Volume PEEP Sodium (132-148) mmol/L Potassium (3.6-5.2) mmol/L Chloride (98-107) mmol/L Carbon Dioxide (22-30) mmol/L Anion Gap (10-20) BUN (9-20) mg/dL Creatinine 2.4 H (0.8-1.5) mg/dL Est GFR ( Amer) Est GFR (Non-Af Amer) Random Glucose (75-110) mg/dL Calcium (8.6-10.4) mg/dl Phosphorus (2.5-4.5) mg/dL Magnesium (1.6-2.3) mg/dL Total Bilirubin (0.2-1.3) mg/dL AST (17-59) U/L ALT (21-72) U/L Alkaline Phosphatase (38-126) U/L Total Protein (6.3-8.3) g/dL Albumin (3.5-5.0) g/dL Globulin (2.2-3.9) gm/dL Albumin/Globulin Ratio (1.0-2.1) Urine Osmolality 503 (300-1000) mosm/kg Ur Random Creatinine 47.7 mg/dL Ur Random Sodium 76 mmol/L Urine Collection Time 24 HRS Urine Total Volume 2125 mL Creatinine Clearance 28.0 L (107-139) mL/min Laboratory Results - last 24 hr 08/16/18 08/17/18 08/17/18 18:39 05:10 05:55 WBC 6.7 RBC 3.68 L Hgb 9.1 L Hct 29.1 L MCV 79.2 L MCH 24.9 L MCHC 31.4 L RDW 21.2 H Plt Count 87 L MPV 10.0 Neut % (Auto) 58.6 Lymph % (Auto) 16.3 L [place] % (Auto) 24.4 H Eos % (Auto) 0.4 Baso % (Auto) 0.3 Neut # (Auto) 3.9 Lymph # (Auto) 1.1 [place] # (Auto) 1.6 H Eos # (Auto) 0.0 Baso # (Auto) 0.0 Neutrophils % (Manual) 51 Lymphocytes % (Manual) 23 Reactive Lymphs % 1 H Monocytes % (Manual) 25 H Platelet Estimate Decreased L Large Platelets Present Hypochromasia (manual) Slight Poikilocytosis (manual Slight Anisocytosis (manual) Slight Target Cells Slight Ovalocytes Slight Puncture Site L rad pCO2 34 L pO2 97 HCO3 23.8 ABG pH 7.43 ABG Total CO2 23.6 ABG O2 Saturation 99.4 H ABG Base Excess -1.4 ABG Hemoglobin 9.2 L ABG Carboxyhemoglobin 2.4 H POC ABG HHb (Measured) 0.6 ABG Methemoglobin 1.0 Rei Test Pos A-a O2 Difference 74.0 Respiratory Index 0.8 Hgb O2 Saturation 96.0 Vent Mode Prvc Mechanical Rate 15 FiO2 30.0 Tidal Volume 500 PEEP 5 Sodium Potassium Chloride Carbon Dioxide Anion Gap BUN Creatinine 2.4 H Est GFR ( Amer) Est GFR (Non-Af Amer) Random Glucose Calcium Phosphorus Magnesium Total Bilirubin AST ALT Alkaline Phosphatase Total Protein Albumin Globulin Albumin/Globulin Ratio Urine Osmolality 503 Ur Random Creatinine 47.7 Ur Random Sodium 76 Urine Collection Time 24 Urine Total Volume 2125 Creatinine Clearance 28.0 L 08/17/18 05:55 WBC RBC Hgb Hct MCV MCH MCHC RDW Plt Count MPV Neut % (Auto) Lymph % (Auto) [place] % (Auto) Eos % (Auto) Baso % (Auto) Neut # (Auto) Lymph # (Auto) [place] # (Auto) Eos # (Auto) Baso # (Auto) Neutrophils % (Manual) Lymphocytes % (Manual) Reactive Lymphs % Monocytes % (Manual) Platelet Estimate Large Platelets Hypochromasia (manual) Poikilocytosis (manual Anisocytosis (manual) Target Cells Ovalocytes Puncture Site pCO2 pO2 HCO3 ABG pH ABG Total CO2 ABG O2 Saturation ABG Base Excess ABG Hemoglobin ABG Carboxyhemoglobin POC ABG HHb (Measured) ABG Methemoglobin Rei Test A-a O2 Difference Respiratory Index Hgb O2 Saturation Vent Mode Mechanical Rate FiO2 Tidal Volume PEEP Sodium 150 H Potassium 3.8 Chloride 116 H Carbon Dioxide 21 L Anion Gap 16 BUN 76 H Creatinine 2.4 H Est GFR ( Amer) 34 Est GFR (Non-Af Amer) 28 Random Glucose 143 H Calcium 8.1 L Phosphorus 3.3 Magnesium 2.3 Total Bilirubin 1.0 AST 80 H ALT 56 Alkaline Phosphatase 118 Total Protein 6.6 Albumin 3.0 L Globulin 3.6 Albumin/Globulin Ratio 0.8 L Urine Osmolality Ur Random Creatinine Ur Random Sodium Urine Collection Time Urine Total Volume Creatinine Clearance Radiology Impressions: Radiology Impressions Chest X-Ray 08/17/18 06:00 Impression: Low lying endotracheal tube approximately 1.3 centimeters above the sterling. NG tube extending into the stomach. Prominent diffuse bilateral pleural parenchymal opacities throughout the lungs. More confluent consolidation seen within mid to lower lung zones with bilateral pleural effusions. Mild cardiomegaly. Biapical pleural thickening with upper lobe granulomatous changes. Degenerative changes in the spine. Attending/Attestation - Attestation I have personally seen and examined this patient.: Yes I have fully participated in the care of the patient.: Yes I have reviewed all pertinent clinical information: Yes Notes (Text): 08/17/18 18:37 I have seen and examined the patient. Medical records, lab studies, and imaging were reviewed by me and a management plan was formulated on multidisciplinary rounds with resident Dr. Steinberg. I agree with their documented assessment and plan. Patient's sedation lightened. Started on PS trial. possible right pleural effusion, thoracentesis with IR tomorrow. Critical Care Time 35 minutes. Multi-disciplinary rounds were performed with house staff, nursing, speech therapy, respiratory therapy, pharmacy and nutrition with integrated input from the primary team/attending and other consulting services. The documented time is cumulative and includes review of patient data/exams/labs/chart review and examination of the patient on rounds and throughout the day; time is exclusive of any procedures or teaching time.
--- NOTE | 2018-08-17 21:39 | CP.PCM.PN ---
Subjective - Date & Time of Evaluation Date of Evaluation: 08/17/18 Time of Evaluation: 07:40 - Subjective Subjective: dict Objective - Vital Signs/Intake and Output Vital Signs (last 24 hours): Temp Pulse Resp BP Pulse Ox 97.0 F L 60 15 144/71 100 08/17/18 20:00 08/17/18 20:09 08/17/18 20:09 08/17/18 20:09 08/17/18 20:09 Intake and Output: 08/17/18 08/18/18 18:59 06:59 Intake Total 1771.1 350 Output Total 3800 350 Balance -2028.9 0 - Medications Medications: Current Medications Albuterol/Ipratropium (Duoneb 3 Mg/0.5 Mg (3 Ml) Ud) 3 ml INH RQ4 ASHLEIGH Last Admin: 08/17/18 20:02 Dose: 3 ml Famotidine (Pepcid) 20 mg IVP DAILY ASHLEIGH Last Admin: 08/17/18 09:03 Dose: 20 mg Heparin Sodium (Porcine) (Heparin) 5,000 units SC Q12 ASHLEIGH Last Admin: 08/17/18 21:32 Dose: 5,000 units Dexmedetomidine HCl 400 mcg/ (Sodium Chloride) 100 mls @ 28.67 mls/hr IV TITR PRN; Protocol Last Admin: 08/17/18 20:20 Dose: 0.5 mcg/kg/hr, 10.24 mls/hr Ceftriaxone Sodium 1 gm/ (Sodium Chloride) 100 mls @ 100 mls/hr IVPB Q12H ASHLEIGH; Protocol Last Admin: 08/17/18 13:07 Dose: 100 mls/hr Dextrose (Dextrose 5% In Water 1000 Ml) 1,000 mls @ 75 mls/hr IV .[id number] ASHLEIGH Last Admin: 08/17/18 13:00 Dose: 75 mls/hr Insulin Human Regular (Novolin R) 0 unit SC Q6 ASHLEIGH; Protocol Last Admin: 08/17/18 18:00 Dose: 2 unit Methylprednisolone (Solu-Medrol) 40 mg IVP DAILY ASHLEIGH Last Admin: 08/17/18 09:06 Dose: 40 mg Multivitamins/Vitamin C (Multi-Delyn Liquid) 5 ml PO DAILY ASHLEIGH Last Admin: 08/17/18 09:03 Dose: 5 ml - Labs Labs: 08/17/18 05:55 08/17/18 05:55
[2018-08-18] MEDS: Albuterol-Ipratrop 3 mg / 0.5 (3 ml) UD INH SCH ×6 (00:01→19:25)
[2018-08-18] MEDS: Dexmedetomidine Hydrochloride 400 MCG in Sodium Chloride 0.9% 96 ML IV PRN ×3 (02:15→10:43)
[2018-08-18 05:57] LABS: ABG ALLEN TEST POS; ARTERIAL BLOOD GAS HCO3 25.7 mmol/L (21-28); ARTERIAL BLOOD GAS HEMOGLOBIN 9.5 g/dL (11.7-17.4); ARTERIAL BLOOD GAS O2 SAT 99.3 % (95-98); ARTERIAL BLOOD GAS PCO2 37 mm/Hg (35-45); ARTERIAL BLOOD GAS PH 7.44 (7.35-7.45); ARTERIAL BLOOD GAS PO2 98 mm/Hg (80-100); ARTERIAL BLOOD GAS TCO2 26.2 mmol/L (22-28)
[2018-08-18] MEDS: (Novolin R) Insulin Human Regular 100 units/ml vial SC SCH ×3 (06:15→18:23)
[2018-08-18 06:32] LABS: BASO % 0.3 % (0.0-2.0); EOS # 0.1 K/uL (0.0-0.7); EOS % 0.8 % (0.0-4.0); HEMOGLOBIN 9.6 g/dL (12.0-18.0); LYMPH # 1.2 K/uL (1.0-4.3); LYMPH % 15.1 % (20.0-40.0); MEAN CELL VOLUME 79.3 fL (80.0-94.0); MEAN CORPUSCULAR HEMOGLOBIN 25.1 pg (27.0-31.0); MEAN CORPUSCULAR HGB CONC 31.7 g/dL (33.0-37.0); MEAN PLATELET VOLUME 9.3 fL (7.2-11.7); MONO # 0.9 K/uL (0.0-0.8); MONO % 11.8 % (0.0-10.0); NEUT # 5.7 K/uL (1.8-7.0); NRBC % 0.1 % (0.0-2.0); RBC 3.8 Mil/uL (4.40-5.90); RED CELL DISTRIBUTION WIDTH 21.3 % (11.5-14.5); WHITE BLOOD COUNT 7.9 K/uL (4.8-10.8)
[2018-08-18 06:51] LABS: ALB/GLOB RATIO 0.9 (1.0-2.1); CALCIUM 8.5 mg/dl (8.6-10.4)
[2018-08-18] MEDS ORDERED: Potassium Chloride 20 mEq/15 ml LIQ UD PO ONE (07:42)
[2018-08-18] MEDS: Multiple Vitamins Oral Solution PO SCH (09:03)
[2018-08-18] MEDS: MethylPREDNISolone 40 mg Vial IVP SCH (09:03)
--- NOTE | 2018-08-18 10:13 | RAD ---
Date of service: 08/18/2018 HISTORY: intubated COMPARISON: 08/17/2018 TECHNIQUE: 1 view obtained. FINDINGS: LUNGS: Ill-defined bibasilar opacities. Possible bilateral pneumonia versus pulmonary edema. PLEURA: Probable small left pleural effusion. No evidence of right pleural effusion. No pneumothorax. CARDIOVASCULAR: Endotracheal tube, nasogastric tube unchanged. Normal cardiac size. Mild congestive change. No atherosclerotic calcification of the thoracic aorta. OSSEOUS STRUCTURES: No significant abnormalities. VISUALIZED UPPER ABDOMEN: Normal. OTHER FINDINGS: None. IMPRESSION: Bibasilar opacities and probable very small left pleural effusion, grossly unchanged.
--- NOTE | 2018-08-18 10:15 | PN ---
DATE: 08/18/2018 SUBJECTIVE: The patient is on mechanical ventilator. He is comfortable. He is improving. His oxygen level is improving. He is afebrile. He is not in any acute distress. The patient is on NG tube feeds. PHYSICAL EXAMINATION: VITAL SIGNS: Blood pressure 123/68, pulse 87, respiratory rate 16, temperature 99. LUNGS: Bilateral rales. CARDIOVASCULAR: S1 and S2 regular. ABDOMEN: Soft. ASSESSMENT: 1. Pneumonia. 2. Congestive heart failure. 3. Hypokalemia. PLAN: Continue current medication. Monitor the patient. Chino Cheung MD
--- NOTE | 2018-08-18 10:38 | CP.PCM.PN ---
Subjective - Date & Time of Evaluation Date of Evaluation: 08/18/18 Time of Evaluation: 09:00 - Subjective Subjective: Nephro Progress Note for Dr. Shayy Eduardo DO, PGY-3 Patient seen and examined at bedside in ICU. Remains intubated, on PRVC at 30% FiO2, sedated on precedex drip (unchanged from yesterday) due to continuing agitation and attempted line pulling. Cr remains 2.4. Yesterday, put out approx 6L of urine (confirmed with nursing), polyuric phase of ATN vs DI? Continues to have poor appearance on CXR, but oxygenating well on 30% FiO2 as per ABGs. Currently on CPAP trial, pending possible extubation. Objective - Vital Signs/Intake and Output Vital Signs (last 24 hours): Temp Pulse Resp BP Pulse Ox 97.5 F L 71 18 109/59 L 100 08/18/18 08:00 08/18/18 09:09 08/18/18 09:09 08/18/18 09:09 08/18/18 09:09 Intake and Output: 08/18/18 08/18/18 06:59 18:59 Intake Total 1930.7 449.5 Output Total 2355 425 Balance -424.3 24.5 - Medications Medications: Current Medications Albuterol/Ipratropium (Duoneb 3 Mg/0.5 Mg (3 Ml) Ud) 3 ml INH RQ4 A[facility] Last Admin: 08/18/18 07:39 Dose: 3 ml Famotidine (Pepcid) 20 mg IVP DAILY [facility] Last Admin: 08/18/18 09:03 Dose: 20 mg Heparin Sodium (Porcine) (Heparin) 5,000 units SC Q12 [facility] Last Admin: 08/18/18 09:04 Dose: 5,000 units Dexmedetomidine HCl 400 mcg/ (Sodium Chloride) 100 mls @ 28.67 mls/hr IV TITR PRN; Protocol Last Titration: 08/18/18 08:40 Dose: 0.8 mcg/kg/hr, 16.38 mls/hr Ceftriaxone Sodium 1 gm/ (Sodium Chloride) 100 mls @ 100 mls/hr IVPB Q12H [facility]; Protocol Last Admin: 08/17/18 23:33 Dose: 100 mls/hr Potassium Chloride (Potassium Chloride 20 Meq/100 Ml) 20 meq in 100 mls @ 50 ml s/hr IVPB Q2H [facility] Stop: 08/18/18 11:44 Last Admin: 08/18/18 08:21 Dose: 50 mls/hr Dextrose (Dextrose 5% In Water 1000 Ml) 1,000 mls @ 150 mls/hr IV .Q6H40M [facility] Insulin Human Regular (Novolin R) 0 unit SC Q6 ASHLE[facility]; Protocol Last Admin: 08/18/18 06:15 Dose: Not Given Methylprednisolone (Solu-Medrol) 40 mg IVP DAILY [facility] Last Admin: 08/18/18 09:03 Dose: 40 mg Multivitamins/Vitamin C (Multi-Delyn Liquid) 5 ml PO DAILY [facility] Last Admin: 08/18/18 09:03 Dose: 5 ml - Labs Labs: 08/18/18 06:24 08/18/18 06:24 - Additional Findings Additional findings: - Constitutional Appears: Chronically Ill, intubated and sedated with precedex, intermittently agitated - Head Exam Head Exam: ATRAUMATIC, NORMOCEPHALIC - Eye Exam Eye Exam: Normal appearance. absent: Conjunctival injection, Scleral icterus Pupil Exam: absent: Irregular, Unequal - ENT Exam ENT Exam: Mucous Membranes Moist ETT in place, secured at lips by securement device NGT in place, secured with tegaderm - Neck Exam Neck exam: Negative for: Thyromegaly - Respiratory Exam intubated and ventilated, on 30% FiO2, on CPAP trial at time of exam, mildly decreased breath sounds at left lung base otherwise clear to auscultation - Cardiovascular Exam Cardiovascular Exam: RRR, +S1, +S2. absent: Bradycardia, Tachycardia, Diastolic murmur, Irregular Rhythm, JVD, +S4 - GI/Abdominal Exam GI & Abdominal Exam: Diminished Bowel Sounds. absent: Distended, Firm, Hyperactive Bowel Sounds, Hypoactive Bowel Sounds, Rigid - Extremities Exam Extremities exam: Positive for: pedal edema (trace pedal edema in bilateral ankles), pedal pulses present, wearing bilateral hand mitts - Neurological Exam sedated on precedex, briefly arousable but not following commands, non-verbal due to intubation - Psychiatric Exam sedated on precedex, mildly agitated - Skin Skin Exam: Dry, Intact, Normal Color, Warm Assessment and Plan - Assessment and Plan (Free Text) Assessment: This is a 57 yo M with PMH of ETOH abuse, Liver Cirrhosis, 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 Later became hypotensive and further altered, requiring intubation and ICU placement for close monitoring and care. Nephro was consulted for RAMIREZ/Acute renal failure. Plan: 1) Acute renal failure - mild improvement 2) Chronic EtOH abuse, undergoing withdrawal 3) Cirrhosis, likely 2/2 EtOH 4) Hypotension - resolved 5) Sepsis (source unclear) on empiric abx 6) Hypoxic respiratory failure - pending possible extubation 7) Hypernatremia -Acute renal failure, Cr maxed at 3, remains 2.4 today Ddx: ATN vs 2/2 substances (high osmolar gap without anion gap, isopropyl?) vs sepsis Put out ~6L urine out in last 24 hrs, approx 2.5 L previously, polyuric phase of ATN recovery vs DI New urine/serum osms, urine Na, specific gravity, and ADH level ordered Continue to monitor daily Cr Maintain gay given hx urethral strictures -Worsening hypernatrema (149 -> 150 ->152) Likely pre-renal component, despite D5W at 75cc yesterday put out approx 6L urine, so output still exceeds input D5W increased to 150cc/hr, continue to monitor -CXR today read at patchy infiltrates bilaterally and small L base pleural effus ion, unchanged continues to oxygenate well on 30% FiO2 on ABG, paO2/FiO2 ratio > 300 -Continue abx as per ID, currently on Zosyn Initial blood cultures positive for Strep G, repeat cultures all negative -Avoid nephrotoxic agents as possible -Pending possible extubation as per ICU Seen, reviewed, and discussed with attending, Dr. Lucas.
[2018-08-18 12:29] LABS: OSMOLALITY,URINE 450 mosm/kg (300-1000)
--- NOTE | 2018-08-18 14:53 | CP.CCUPN ---
<Charbel Steinberg - Last Filed: 08/18/18 14:47> CCU Subjective - Physician Review Subjective (Free Text): 08/14/18 14:46 PGY-1 Critical Care Progress Note for Dr. Shay Patient seen and examined at bedside. No acute events overnight. Planning to extubate to BIPAP. ROS unable to be obtained. CCU Objective - Vital Signs / Intake & Output Vital Signs (Last 4 hours): Vital Signs Temp Pulse Resp BP Pulse Ox 08/18/18 13:09 76 17 125/69 100 08/18/18 12:09 68 18 118/62 100 08/18/18 12:00 97.7 F 100 08/18/18 11:09 65 16 127/67 100 Intake and Output (Last 8hrs): Intake & Output 08/17/18 08/18/18 08/18/18 22:59 06:59 14:59 Intake Total 1337.7 1323.7 898.3 Output Total 4575 1530 920 Balance -3237.3 -206.3 -21.7 Weight 167 lb 15.876 oz Intake: IV 102.7 197.3 100 Intake, IV Amount 715.0 806.4 598.3 Right Forearm 600 600 500 Right Hand 115.0 206.4 98.3 Tube Feeding 320 320 200 Other 200 Output: Urine 4575 1530 920 Urethral ([place]) 4575 1530 920 Other: # Bowel Movements 0 0 0 - Physical Exam Head: Positive for: Atraumatic, Normocephalic Mouth: Positive for: Drooling Respiratory/Chest: Positive for: Good Air Exchange, Other (intubated, on vent). Negative for: Accessory Muscle Use Cardiovascular: Positive for: Normal S1, S2, Tachycardic Abdomen: Positive for: Normal Bowel Sounds Lower Extremity: Positive for: Normal Inspection Neurological: Negative for: GCS=15, Speech Normal - Medications Active Medications: Active Medications Generic Name Dose Route Start Last Admin Trade Name Freq PRN Reason Stop Dose Admin Albuterol/Ipratropium 3 ml 08/12/18 20:00 08/18/18 11:44 Duoneb 3 Mg/0.5 Mg (3 Ml) Ud INH 3 ml RQ4 ASHLEIGH Administration Famotidine 20 mg 08/11/18 10:00 08/18/18 09:03 Pepcid IVP 20 mg DAILY ASHLEIGH Administration Heparin Sodium (Porcine) 5,000 units 08/17/18 22:00 08/18/18 09:04 Heparin SC 5,000 units Q12 ASHLEIGH Administration Ceftriaxone Sodium 1 gm/ 100 mls @ 100 mls/hr 08/17/18 00:15 08/18/18 12:09 Sodium Chloride IVPB 100 mls/hr Q12H ASHLEIGH Administration Protocol Dextrose 1,000 mls @ 150 mls/hr 08/18/18 10:09 08/18/18 10:44 Dextrose 5% In Water 1000 Ml IV 150 mls/hr .[id number] ASHLEIGH Administration Insulin Human Regular 0 unit 08/13/18 00:00 08/18/18 12:07 Novolin R SC 2 unit Q6 ASHLEIGH Administration Protocol Methylprednisolone 40 mg 08/14/18 10:00 08/18/18 09:03 Solu-Medrol IVP 40 mg DAILY ASHLEIGH Administration Multivitamins/Vitamin C 5 ml 08/11/18 10:00 08/18/18 09:03 Multi-Delyn Liquid PO 5 ml DAILY ASHLEIGH Administration - Patient Studies Lab Studies: Microbiology Studies 08/15/18 04:42 Blood Culture - Preliminary Blood NO GROWTH AFTER 3 DAYS 08/15/18 04:42 Blood Culture - Preliminary Blood NO GROWTH AFTER 3 DAYS Lab Studies 08/18/18 08/18/18 08/18/18 Range/Units 11:52 11:52 11:52 WBC (4.8-10.8) K/uL RBC (4.40-5.90) Mil/uL Hgb (12.0-18.0) g/dL Hct (35.0-51.0) % MCV (80.0-94.0) fL MCH (27.0-31.0) pg MCHC (33.0-37.0) g/dL RDW (11.5-14.5) % Plt Count (130-400) K/uL MPV (7.2-11.7) fL Neut % (Auto) (50.0-75.0) % Lymph % (Auto) (20.0-40.0) % [place] % (Auto) (0.0-10.0) % Eos % (Auto) (0.0-4.0) % Baso % (Auto) (0.0-2.0) % Neut # (Auto) (1.8-7.0) K/uL Lymph # (Auto) (1.0-4.3) K/uL [place] # (Auto) (0.0-0.8) K/uL Eos # (Auto) (0.0-0.7) K/uL Baso # (Auto) (0.0-0.2) K/uL Puncture Site pCO2 (35-45) mm/Hg pO2 (80-100) mm/Hg HCO3 (21-28) mmol/L ABG pH (7.35-7.45) ABG Total CO2 (22-28) mmol/L ABG O2 Saturation (95-98) % ABG Base Excess (-2.0-3.0) mmol/L ABG Hemoglobin (11.7-17.4) g/dL ABG Carboxyhemoglobin (0.5-1.5) % POC ABG HHb (Measured) (0.0-5.0) % ABG Methemoglobin (0.0-3.0) % Rei Test A-a O2 Difference mm/Hg Respiratory Index Hgb O2 Saturation (95.0-98.0) % Vent Mode Mechanical Rate FiO2 % Tidal Volume PEEP Sodium (132-148) mmol/L Potassium (3.6-5.2) mmol/L Chloride (98-107) mmol/L Carbon Dioxide (22-30) mmol/L Anion Gap (10-20) BUN (9-20) mg/dL Creatinine (0.8-1.5) mg/dL Est GFR ( Amer) Est GFR (Non-Af Amer) Random Glucose (75-110) mg/dL Serum Osmolality 317 H (272-300) mosm/kg Calcium (8.6-10.4) mg/dl Phosphorus (2.5-4.5) mg/dL Magnesium (1.6-2.3) mg/dL Total Bilirubin (0.2-1.3) mg/dL AST (17-59) U/L ALT (21-72) U/L Alkaline Phosphatase (38-126) U/L Total Protein (6.3-8.3) g/dL Albumin (3.5-5.0) g/dL Globulin (2.2-3.9) gm/dL Albumin/Globulin Ratio (1.0-2.1) Ur Specific [place] 1.011 (1.003-1.030) Urine Osmolality 450 (300-1000) mosm/kg Ur Random Sodium 91 mmol/L Butalbital Confirm Opiates (GC/MS) Codeine Confirmation Morphine Confirm Hydrocodone Confirm Oxycodone Confirm Methadone (GC/MS) Methadone Confirm Free Hydromorphone Conf Propoxyphenes Norpropoxyphene Barbiturates Phencyclidine (PCP) Phencyclidine (GC/MS) Amphetamines Amphetamines Confirm Methamphetamine Confirm Methylenedioxyamph MDA MDMA Amobarbital Confirm Butabarbital Pentobarbital Confirm Phenobarbital Confirm Secobarbital Confirm Alprazolam Confirm Benzodiazepines Nordiazepam Confirm Desalkylfluraze Cnfrm Lorazepam Confirm ng/mL Oxazepam Confirmation Cocaine & Metabolite Cocaine Confirmation Cocaethylene Confirm Benzoylecgonine Confrm Ecgonine Methyl Sandra Marijuana THC Confirmation Carboxy THC Confirm Drugs of Abuse Comment 08/18/18 08/18/18 08/18/18 Range/Units 06:24 06:24 05:25 WBC 7.9 (4.8-10.8) K/uL RBC 3.80 L (4.40-5.90) Mil/uL Hgb 9.6 L (12.0-18.0) g/dL Hct 30.2 L (35.0-51.0) % MCV 79.3 L (80.0-94.0) fL MCH 25.1 L (27.0-31.0) pg MCHC 31.7 L (33.0-37.0) g/dL RDW 21.3 H (11.5-14.5) % Plt Count 80 L (130-400) K/uL MPV 9.3 (7.2-11.7) fL Neut % (Auto) 72.0 (50.0-75.0) % Lymph % (Auto) 15.1 L (20.0-40.0) % [place] % (Auto) 11.8 H (0.0-10.0) % Eos % (Auto) 0.8 (0.0-4.0) % Baso % (Auto) 0.3 (0.0-2.0) % Neut # (Auto) 5.7 (1.8-7.0) K/uL Lymph # (Auto) 1.2 (1.0-4.3) K/uL [place] # (Auto) 0.9 H (0.0-0.8) K/uL Eos # (Auto) 0.1 (0.0-0.7) K/uL Baso # (Auto) 0.0 (0.0-0.2) K/uL Puncture Site L rad pCO2 37 (35-45) mm/Hg pO2 98 (80-100) mm/Hg HCO3 25.7 (21-28) mmol/L ABG pH 7.44 (7.35-7.45) ABG Total CO2 26.2 (22-28) mmol/L ABG O2 Saturation 99.3 H (95-98) % ABG Base Excess 1.0 (-2.0-3.0) mmol/L ABG Hemoglobin 9.5 L (11.7-17.4) g/dL ABG Carboxyhemoglobin 1.9 H (0.5-1.5) % POC ABG HHb (Measured) 0.7 (0.0-5.0) % ABG Methemoglobin 0.8 (0.0-3.0) % Rei Test Pos A-a O2 Difference 70.0 mm/Hg Respiratory Index 0.7 Hgb O2 Saturation 96.6 (95.0-98.0) % Vent Mode Prvc Mechanical Rate 15 FiO2 30.0 % Tidal Volume 500 PEEP 5 Sodium 152 H (132-148) mmol/L Potassium 2.9 L (3.6-5.2) mmol/L Chloride 113 H (98-107) mmol/L Carbon Dioxide 25 (22-30) mmol/L Anion Gap 17 (10-20) BUN 67 H (9-20) mg/dL Creatinine 2.4 H (0.8-1.5) mg/dL Est GFR ( Amer) 34 Est GFR (Non-Af Amer) 28 Random Glucose 161 H (75-110) mg/dL Serum Osmolality (272-300) mosm/kg Calcium 8.5 L (8.6-10.4) mg/dl Phosphorus 3.7 (2.5-4.5) mg/dL Magnesium 2.0 (1.6-2.3) mg/dL Total Bilirubin 0.7 (0.2-1.3) mg/dL AST 64 H (17-59) U/L ALT 57 (21-72) U/L Alkaline Phosphatase 144 H D (38-126) U/L Total Protein 6.5 (6.3-8.3) g/dL Albumin 3.0 L (3.5-5.0) g/dL Globulin 3.5 (2.2-3.9) gm/dL Albumin/Globulin Ratio 0.9 L (1.0-2.1) Ur Specific [place] (1.003-1.030) Urine Osmolality (300-1000) mosm/kg Ur Random Sodium mmol/L Butalbital Confirm Opiates (GC/MS) Codeine Confirmation Morphine Confirm Hydrocodone Confirm Oxycodone Confirm Methadone (GC/MS) Methadone Confirm Free Hydromorphone Conf Propoxyphenes Norpropoxyphene Barbiturates Phencyclidine (PCP) Phencyclidine (GC/MS) Amphetamines Amphetamines Confirm Methamphetamine Confirm Methylenedioxyamph MDA MDMA Amobarbital Confirm Butabarbital Pentobarbital Confirm Phenobarbital Confirm Secobarbital Confirm Alprazolam Confirm Benzodiazepines Nordiazepam Confirm Desalkylfluraze Cnfrm Lorazepam Confirm ng/mL Oxazepam Confirmation Cocaine & Metabolite Cocaine Confirmation Cocaethylene Confirm Benzoylecgonine Confrm Ecgonine Methyl Sandra Marijuana THC Confirmation Carboxy THC Confirm Drugs of Abuse Comment 08/11/18 Range/Units 08:57 WBC (4.8-10.8) K/uL RBC (4.40-5.90) Mil/uL Hgb (12.0-18.0) g/dL Hct (35.0-51.0) % MCV (80.0-94.0) fL MCH (27.0-31.0) pg MCHC (33.0-37.0) g/dL RDW (11.5-14.5) % Plt Count (130-400) K/uL MPV (7.2-11.7) fL Neut % (Auto) (50.0-75.0) % Lymph % (Auto) (20.0-40.0) % [place] % (Auto) (0.0-10.0) % Eos % (Auto) (0.0-4.0) % Baso % (Auto) (0.0-2.0) % Neut # (Auto) (1.8-7.0) K/uL Lymph # (Auto) (1.0-4.3) K/uL [place] # (Auto) (0.0-0.8) K/uL Eos # (Auto) (0.0-0.7) K/uL Baso # (Auto) (0.0-0.2) K/uL Puncture Site pCO2 (35-45) mm/Hg pO2 (80-100) mm/Hg HCO3 (21-28) mmol/L ABG pH (7.35-7.45) ABG Total CO2 (22-28) mmol/L ABG O2 Saturation (95-98) % ABG Base Excess (-2.0-3.0) mmol/L ABG Hemoglobin (11.7-17.4) g/dL ABG Carboxyhemoglobin (0.5-1.5) % POC ABG HHb (Measured) (0.0-5.0) % ABG Methemoglobin (0.0-3.0) % Rei Test A-a O2 Difference mm/Hg Respiratory Index Hgb O2 Saturation (95.0-98.0) % Vent Mode Mechanical Rate FiO2 % Tidal Volume PEEP Sodium (132-148) mmol/L Potassium (3.6-5.2) mmol/L Chloride (98-107) mmol/L Carbon Dioxide (22-30) mmol/L Anion Gap (10-20) BUN (9-20) mg/dL Creatinine (0.8-1.5) mg/dL Est GFR ( Amer) Est GFR (Non-Af Amer) Random Glucose (75-110) mg/dL Serum Osmolality (272-300) mosm/kg Calcium (8.6-10.4) mg/dl Phosphorus (2.5-4.5) mg/dL Magnesium (1.6-2.3) mg/dL Total Bilirubin (0.2-1.3) mg/dL AST (17-59) U/L ALT (21-72) U/L Alkaline Phosphatase (38-126) U/L Total Protein (6.3-8.3) g/dL Albumin (3.5-5.0) g/dL Globulin (2.2-3.9) gm/dL Albumin/Globulin Ratio (1.0-2.1) Ur Specific [place] (1.003-1.030) Urine Osmolality (300-1000) mosm/kg Ur Random Sodium mmol/L Butalbital Confirm TEST NOT PERFORMED Opiates (GC/MS) negative Codeine Confirmation TEST NOT PERFORMED Morphine Confirm TEST NOT PERFORMED Hydrocodone Confirm TEST NOT PERFORMED Oxycodone Confirm TEST NOT PERFORMED Methadone (GC/MS) negative Methadone Confirm TEST NOT PERFORMED Free Hydromorphone Conf TEST NOT PERFORMED Propoxyphenes negative Norpropoxyphene TEST NOT PERFORMED Barbiturates negative Phencyclidine (PCP) negative Phencyclidine (GC/MS) TEST NOT PERFORMED Amphetamines negative Amphetamines Confirm TEST NOT PERFORMED Methamphetamine Confirm TEST NOT PERFORMED Methylenedioxyamph MDA TEST NOT PERFORMED MDMA TEST NOT PERFORMED Amobarbital Confirm TEST NOT PERFORMED Butabarbital TEST NOT PERFORMED Pentobarbital Confirm TEST NOT PERFORMED Phenobarbital Confirm TEST NOT PERFORMED Secobarbital Confirm TEST NOT PERFORMED Alprazolam Confirm negative Benzodiazepines Positive H Nordiazepam Confirm negative Desalkylfluraze Cnfrm negative Lorazepam Confirm 66 ng/mL Oxazepam Confirmation negative Cocaine & Metabolite negative Cocaine Confirmation TEST NOT PERFORMED Cocaethylene Confirm TEST NOT PERFORMED Benzoylecgonine Confrm TEST NOT PERFORMED Ecgonine Methyl Sandra TEST NOT PERFORMED Marijuana negative THC Confirmation TEST NOT PERFORMED Carboxy THC Confirm TEST NOT PERFORMED Drugs of Abuse Comment See note Laboratory Results - last 24 hr 08/11/18 08/18/18 08/18/18 08:57 05:25 06:24 WBC 7.9 RBC 3.80 L Hgb 9.6 L Hct 30.2 L MCV 79.3 L MCH 25.1 L MCHC 31.7 L RDW 21.3 H Plt Count 80 L MPV 9.3 Neut % (Auto) 72.0 Lymph % (Auto) 15.1 L [place] % (Auto) 11.8 H Eos % (Auto) 0.8 Baso % (Auto) 0.3 Neut # (Auto) 5.7 Lymph # (Auto) 1.2 [place] # (Auto) 0.9 H Eos # (Auto) 0.1 Baso # (Auto) 0.0 Puncture Site L rad pCO2 37 pO2 98 HCO3 25.7 ABG pH 7.44 ABG Total CO2 26.2 ABG O2 Saturation 99.3 H ABG Base Excess 1.0 ABG Hemoglobin 9.5 L ABG Carboxyhemoglobin 1.9 H POC ABG HHb (Measured) 0.7 ABG Methemoglobin 0.8 Rei Test Pos A-a O2 Difference 70.0 Respiratory Index 0.7 Hgb O2 Saturation 96.6 Vent Mode Prvc Mechanical Rate 15 FiO2 30.0 Tidal Volume 500 PEEP 5 Sodium Potassium Chloride Carbon Dioxide Anion Gap BUN Creatinine Est GFR ( Amer) Est GFR (Non-Af Amer) Random Glucose Serum Osmolality Calcium Phosphorus Magnesium Total Bilirubin AST ALT Alkaline Phosphatase Total Protein Albumin Globulin Albumin/Globulin Ratio Ur Specific [place] Urine Osmolality Ur Random Sodium Butalbital Confirm TEST NOT PERFORMED Opiates (GC/MS) negative Codeine Confirmation TEST NOT PERFORMED Morphine Confirm TEST NOT PERFORMED Hydrocodone Confirm TEST NOT PERFORMED Oxycodone Confirm TEST NOT PERFORMED Methadone (GC/MS) negative Methadone Confirm TEST NOT PERFORMED Free Hydromorphone Conf TEST NOT PERFORMED Propoxyphenes negative Norpropoxyphene TEST NOT PERFORMED Barbiturates negative Phencyclidine (PCP) negative Phencyclidine (GC/MS) TEST NOT PERFORMED Amphetamines negative Amphetamines Confirm TEST NOT PERFORMED Methamphetamine Confirm TEST NOT PERFORMED Methylenedioxyamph MDA TEST NOT PERFORMED MDMA TEST NOT PERFORMED Amobarbital Confirm TEST NOT PERFORMED Butabarbital TEST NOT PERFORMED Pentobarbital Confirm TEST NOT PERFORMED Phenobarbital Confirm TEST NOT PERFORMED Secobarbital Confirm TEST NOT PERFORMED Alprazolam Confirm negative Benzodiazepines Positive H Nordiazepam Confirm negative Desalkylfluraze Cnfrm negative Lorazepam Confirm 66 Oxazepam Confirmation negative Cocaine & Metabolite negative Cocaine Confirmation TEST NOT PERFORMED Cocaethylene Confirm TEST NOT PERFORMED Benzoylecgonine Confrm TEST NOT PERFORMED Ecgonine Methyl Sandra TEST NOT PERFORMED Marijuana negative THC Confirmation TEST NOT PERFORMED Carboxy THC Confirm TEST NOT PERFORMED Drugs of Abuse Comment See note 08/18/18 08/18/18 08/18/18 06:24 11:52 11:52 WBC RBC Hgb Hct MCV MCH MCHC RDW Plt Count MPV Neut % (Auto) Lymph % (Auto) [place] % (Auto) Eos % (Auto) Baso % (Auto) Neut # (Auto) Lymph # (Auto) [place] # (Auto) Eos # (Auto) Baso # (Auto) Puncture Site pCO2 pO2 HCO3 ABG pH ABG Total CO2 ABG O2 Saturation ABG Base Excess ABG Hemoglobin ABG Carboxyhemoglobin POC ABG HHb (Measured) ABG Methemoglobin Rei Test A-a O2 Difference Respiratory Index Hgb O2 Saturation Vent Mode Mechanical Rate FiO2 Tidal Volume PEEP Sodium 152 H Potassium 2.9 L Chloride 113 H Carbon Dioxide 25 Anion Gap 17 BUN 67 H Creatinine 2.4 H Est GFR ( Amer) 34 Est GFR (Non-Af Amer) 28 Random Glucose 161 H Serum Osmolality 317 H Calcium 8.5 L Phosphorus 3.7 Magnesium 2.0 Total Bilirubin 0.7 AST 64 H ALT 57 Alkaline Phosphatase 144 H D Total Protein 6.5 Albumin 3.0 L Globulin 3.5 Albumin/Globulin Ratio 0.9 L Ur Specific [place] Urine Osmolality 450 Ur Random Sodium 91 Butalbital Confirm Opiates (GC/MS) Codeine Confirmation Morphine Confirm Hydrocodone Confirm Oxycodone Confirm Methadone (GC/MS) Methadone Confirm Free Hydromorphone Conf Propoxyphenes Norpropoxyphene Barbiturates Phencyclidine (PCP) Phencyclidine (GC/MS) Amphetamines Amphetamines Confirm Methamphetamine Confirm Methylenedioxyamph MDA MDMA Amobarbital Confirm Butabarbital Pentobarbital Confirm Phenobarbital Confirm Secobarbital Confirm Alprazolam Confirm Benzodiazepines Nordiazepam Confirm Desalkylfluraze Cnfrm Lorazepam Confirm Oxazepam Confirmation Cocaine & Metabolite Cocaine Confirmation Cocaethylene Confirm Benzoylecgonine Confrm Ecgonine Methyl Sandra Marijuana THC Confirmation Carboxy THC Confirm Drugs of Abuse Comment 08/18/18 11:52 WBC RBC Hgb Hct MCV MCH MCHC RDW Plt Count MPV Neut % (Auto) Lymph % (Auto) [place] % (Auto) Eos % (Auto) Baso % (Auto) Neut # (Auto) Lymph # (Auto) [place] # (Auto) Eos # (Auto) Baso # (Auto) Puncture Site pCO2 pO2 HCO3 ABG pH ABG Total CO2 ABG O2 Saturation ABG Base Excess ABG Hemoglobin ABG Carboxyhemoglobin POC ABG HHb (Measured) ABG Methemoglobin Rei Test A-a O2 Difference Respiratory Index Hgb O2 Saturation Vent Mode Mechanical Rate FiO2 Tidal Volume PEEP Sodium Potassium Chloride Carbon Dioxide Anion Gap BUN Creatinine Est GFR ( Amer) Est GFR (Non-Af Amer) Random Glucose Serum Osmolality Calcium Phosphorus Magnesium Total Bilirubin AST ALT Alkaline Phosphatase Total Protein Albumin Globulin Albumin/Globulin Ratio Ur Specific [place] 1.011 Urine Osmolality Ur Random Sodium Butalbital Confirm Opiates (GC/MS) Codeine Confirmation Morphine Confirm Hydrocodone Confirm Oxycodone Confirm Methadone (GC/MS) Methadone Confirm Free Hydromorphone Conf Propoxyphenes Norpropoxyphene Barbiturates Phencyclidine (PCP) Phencyclidine (GC/MS) Amphetamines Amphetamines Confirm Methamphetamine Confirm Methylenedioxyamph MDA MDMA Amobarbital Confirm Butabarbital Pentobarbital Confirm Phenobarbital Confirm Secobarbital Confirm Alprazolam Confirm Benzodiazepines Nordiazepam Confirm Desalkylfluraze Cnfrm Lorazepam Confirm Oxazepam Confirmation Cocaine & Metabolite Cocaine Confirmation Cocaethylene Confirm Benzoylecgonine Confrm Ecgonine Methyl Sandra Marijuana THC Confirmation Carboxy THC Confirm Drugs of Abuse Comment Radiology Impressions: Radiology Impressions Chest X-Ray 08/17/18 06:00 Impression: Low lying endotracheal tube approximately 1.3 centimeters above the [place]. NG tube extending into the stomach. Prominent diffuse bilateral pleural parenchymal opacities throughout the lungs. More confluent consolidation seen within mid to lower lung zones with bilateral pleural effusions. Mild cardiomegaly. Biapical pleural thickening with upper lobe granulomatous changes. Degenerative changes in the spine. Chest X-Ray 08/18/18 07:00 IMPRESSION: Bibasilar opacities and probable very small left pleural effusion, grossly unchanged. Fingerstick Blood Sugar Results: 220 Review of Systems - Review of Systems Systems not reviewed;Unavailable: Intubated Assessment/Plan - Assessment and Plan (Free Text) Assessment: Pulm Hypoxic respiratory failure, COPD -Intubated 08/12, PRVC. -Solumedrol 40 mg IV daily -Sputum cx NEGATIVE - final -Rocephin 1 gm Q12 for PNA coverage -Extubated and re-intubated 08/16 for worsening respiratory function on vent - sat improved on re-intubation. Re-extubating to BIPAP today. Cardio -SVT resolved, NSR on monitor HR 80s -D/w patient possible need for ablation outpatient Neuro AMS, DTs -Continue to monitor -Off sedation Renal Nephro, Dr. Lucas RAMIREZ -Cr improving -Pre-renal --> BUN mildly-elevated Hypernatremia -Fluids --> D5 half NS @ 150 Endo -Anion gap metablic acidosis - DKA vs uremia vs lactic acidosis vs various causes -Resolved ID Sepsis, strep bacteremia -ID consulted, Dr. Moss -Blood cx - Group G strep -cont Rocephin -Repeat blood cultures neg x72 hours -Monitor vitals Ppx -Heparin SCC Q8 -Precedex Assessment and plan d/w Dr. Jaspal Steinberg, PGY-1 <Jarred Shay - Last Filed: 08/18/18 16:42> CCU Objective - Vital Signs / Intake & Output Vital Signs (Last 4 hours): Vital Signs Pulse Resp BP Pulse Ox 08/18/18 14:50 80 08/18/18 13:09 76 17 125/69 100 Intake and Output (Last 8hrs): Intake & Output 08/18/18 08/18/18 08/18/18 06:59 14:59 22:59 Intake Total 1323.7 898.3 Output Total 1530 920 Balance -206.3 -21.7 Weight 167 lb 15.876 oz Intake: IV 197.3 100 Intake, IV Amount 806.4 598.3 Right Forearm 600 500 Right Hand 206.4 98.3 Tube Feeding 320 200 Output: Urine 1530 920 Urethral ([place]) 1530 920 Other: # Bowel Movements 0 0 - Medications Active Medications: Active Medications Generic Name Dose Route Start Last Admin Trade Name Freq PRN Reason Stop Dose Admin Albuterol/Ipratropium 3 ml 08/12/18 20:00 08/18/18 16:23 Duoneb 3 Mg/0.5 Mg (3 Ml) Ud INH 3 ml RQ4 ASHLEIGH Administration Famotidine 20 mg 08/11/18 10:00 08/18/18 09:03 Pepcid IVP 20 mg DAILY ASHLEIGH Administration Heparin Sodium (Porcine) 5,000 units 08/17/18 22:00 08/18/18 09:04 Heparin SC 5,000 units Q12 ASHLEIGH Administration Ceftriaxone Sodium 1 gm/ 100 mls @ 100 mls/hr 08/17/18 00:15 08/18/18 12:09 Sodium Chloride IVPB 100 mls/hr Q12H ASHLEIGH Administration Protocol Dextrose 1,000 mls @ 150 mls/hr 08/18/18 10:09 08/18/18 10:44 Dextrose 5% In Water 1000 Ml IV 150 mls/hr .Q6H40M ASHLEIGH Administration Insulin Human Regular 0 unit 08/13/18 00:00 08/18/18 12:07 Novolin R SC 2 unit Q6 ASHLEIGH Administration Protocol Methylprednisolone 40 mg 08/14/18 10:00 08/18/18 09:03 Solu-Medrol IVP 40 mg DAILY ASHLEIGH Administration Multivitamins/Vitamin C 5 ml 08/11/18 10:00 08/18/18 09:03 Multi-Delyn Liquid PO 5 ml DAILY ASHLEIGH Administration - Patient Studies Lab Studies: Microbiology Studies 08/15/18 04:42 Blood Culture - Preliminary Blood NO GROWTH AFTER 3 DAYS 08/15/18 04:42 Blood Culture - Preliminary Blood NO GROWTH AFTER 3 DAYS Lab Studies 08/18/18 08/18/18 08/18/18 Range/Units 11:52 11:52 11:52 WBC (4.8-10.8) K/uL RBC (4.40-5.90) Mil/uL Hgb (12.0-18.0) g/dL Hct (35.0-51.0) % MCV (80.0-94.0) fL MCH (27.0-31.0) pg MCHC (33.0-37.0) g/dL RDW (11.5-14.5) % Plt Count (130-400) K/uL MPV (7.2-11.7) fL Neut % (Auto) (50.0-75.0) % Lymph % (Auto) (20.0-40.0) % [place] % (Auto) (0.0-10.0) % Eos % (Auto) (0.0-4.0) % Baso % (Auto) (0.0-2.0) % Neut # (Auto) (1.8-7.0) K/uL Lymph # (Auto) (1.0-4.3) K/uL [place] # (Auto) (0.0-0.8) K/uL Eos # (Auto) (0.0-0.7) K/uL Baso # (Auto) (0.0-0.2) K/uL Puncture Site pCO2 (35-45) mm/Hg pO2 (80-100) mm/Hg HCO3 (21-28) mmol/L ABG pH (7.35-7.45) ABG Total CO2 (22-28) mmol/L ABG O2 Saturation (95-98) % ABG Base Excess (-2.0-3.0) mmol/L ABG Hemoglobin (11.7-17.4) g/dL ABG Carboxyhemoglobin (0.5-1.5) % POC ABG HHb (Measured) (0.0-5.0) % ABG Methemoglobin (0.0-3.0) % Rei Test A-a O2 Difference mm/Hg Respiratory Index Hgb O2 Saturation (95.0-98.0) % Vent Mode Mechanical Rate FiO2 % Tidal Volume PEEP Sodium (132-148) mmol/L Potassium (3.6-5.2) mmol/L Chloride (98-107) mmol/L Carbon Dioxide (22-30) mmol/L Anion Gap (10-20) BUN (9-20) mg/dL Creatinine (0.8-1.5) mg/dL Est GFR ( Amer) Est GFR (Non-Af Amer) Random Glucose (75-110) mg/dL Serum Osmolality 317 H (272-300) mosm/kg Calcium (8.6-10.4) mg/dl Phosphorus (2.5-4.5) mg/dL Magnesium (1.6-2.3) mg/dL Total Bilirubin (0.2-1.3) mg/dL AST (17-59) U/L ALT (21-72) U/L Alkaline Phosphatase (38-126) U/L Total Protein (6.3-8.3) g/dL Albumin (3.5-5.0) g/dL Globulin (2.2-3.9) gm/dL Albumin/Globulin Ratio (1.0-2.1) Ur Specific [place] 1.011 (1.003-1.030) Urine Osmolality 450 (300-1000) mosm/kg Ur Random Sodium 91 mmol/L Butalbital Confirm Opiates (GC/MS) Codeine Confirmation Morphine Confirm Hydrocodone Confirm Oxycodone Confirm Methadone (GC/MS) Methadone Confirm Free Hydromorphone Conf Propoxyphenes Norpropoxyphene Barbiturates Phencyclidine (PCP) Phencyclidine (GC/MS) Amphetamines Amphetamines Confirm Methamphetamine Confirm Methylenedioxyamph MDA MDMA Amobarbital Confirm Butabarbital Pentobarbital Confirm Phenobarbital Confirm Secobarbital Confirm Alprazolam Confirm Benzodiazepines Nordiazepam Confirm Desalkylfluraze Cnfrm Lorazepam Confirm ng/mL Oxazepam Confirmation Cocaine & Metabolite Cocaine Confirmation Cocaethylene Confirm Benzoylecgonine Confrm Ecgonine Methyl Sandra Marijuana THC Confirmation Carboxy THC Confirm Drugs of Abuse Comment 08/18/18 08/18/18 08/18/18 Range/Units 06:24 06:24 05:25 WBC 7.9 (4.8-10.8) K/uL RBC 3.80 L (4.40-5.90) Mil/uL Hgb 9.6 L (12.0-18.0) g/dL Hct 30.2 L (35.0-51.0) % MCV 79.3 L (80.0-94.0) fL MCH 25.1 L (27.0-31.0) pg MCHC 31.7 L (33.0-37.0) g/dL RDW 21.3 H (11.5-14.5) % Plt Count 80 L (130-400) K/uL MPV 9.3 (7.2-11.7) fL Neut % (Auto) 72.0 (50.0-75.0) % Lymph % (Auto) 15.1 L (20.0-40.0) % [place] % (Auto) 11.8 H (0.0-10.0) % Eos % (Auto) 0.8 (0.0-4.0) % Baso % (Auto) 0.3 (0.0-2.0) % Neut # (Auto) 5.7 (1.8-7.0) K/uL Lymph # (Auto) 1.2 (1.0-4.3) K/uL [place] # (Auto) 0.9 H (0.0-0.8) K/uL Eos # (Auto) 0.1 (0.0-0.7) K/uL Baso # (Auto) 0.0 (0.0-0.2) K/uL Puncture Site L rad pCO2 37 (35-45) mm/Hg pO2 98 (80-100) mm/Hg HCO3 25.7 (21-28) mmol/L ABG pH 7.44 (7.35-7.45) ABG Total CO2 26.2 (22-28) mmol/L ABG O2 Saturation 99.3 H (95-98) % ABG Base Excess 1.0 (-2.0-3.0) mmol/L ABG Hemoglobin 9.5 L (11.7-17.4) g/dL ABG Carboxyhemoglobin 1.9 H (0.5-1.5) % POC ABG HHb (Measured) 0.7 (0.0-5.0) % ABG Methemoglobin 0.8 (0.0-3.0) % Rei Test Pos A-a O2 Difference 70.0 mm/Hg Respiratory Index 0.7 Hgb O2 Saturation 96.6 (95.0-98.0) % Vent Mode Prvc Mechanical Rate 15 FiO2 30.0 % Tidal Volume 500 PEEP 5 Sodium 152 H (132-148) mmol/L Potassium 2.9 L (3.6-5.2) mmol/L Chloride 113 H (98-107) mmol/L Carbon Dioxide 25 (22-30) mmol/L Anion Gap 17 (10-20) BUN 67 H (9-20) mg/dL Creatinine 2.4 H (0.8-1.5) mg/dL Est GFR ( Amer) 34 Est GFR (Non-Af Amer) 28 Random Glucose 161 H (75-110) mg/dL Serum Osmolality (272-300) mosm/kg Calcium 8.5 L (8.6-10.4) mg/dl Phosphorus 3.7 (2.5-4.5) mg/dL Magnesium 2.0 (1.6-2.3) mg/dL Total Bilirubin 0.7 (0.2-1.3) mg/dL AST 64 H (17-59) U/L ALT 57 (21-72) U/L Alkaline Phosphatase 144 H D (38-126) U/L Total Protein 6.5 (6.3-8.3) g/dL Albumin 3.0 L (3.5-5.0) g/dL Globulin 3.5 (2.2-3.9) gm/dL Albumin/Globulin Ratio 0.9 L (1.0-2.1) Ur Specific [place] (1.003-1.030) Urine Osmolality (300-1000) mosm/kg Ur Random Sodium mmol/L Butalbital Confirm Opiates (GC/MS) Codeine Confirmation Morphine Confirm Hydrocodone Confirm Oxycodone Confirm Methadone (GC/MS) Methadone Confirm Free Hydromorphone Conf Propoxyphenes Norpropoxyphene Barbiturates Phencyclidine (PCP) Phencyclidine (GC/MS) Amphetamines Amphetamines Confirm Methamphetamine Confirm Methylenedioxyamph MDA MDMA Amobarbital Confirm Butabarbital Pentobarbital Confirm Phenobarbital Confirm Secobarbital Confirm Alprazolam Confirm Benzodiazepines Nordiazepam Confirm Desalkylfluraze Cnfrm Lorazepam Confirm ng/mL Oxazepam Confirmation Cocaine & Metabolite Cocaine Confirmation Cocaethylene Confirm Benzoylecgonine Confrm Ecgonine Methyl Sandra Marijuana THC Confirmation Carboxy THC Confirm Drugs of Abuse Comment 08/11/18 Range/Units 08:57 WBC (4.8-10.8) K/uL RBC (4.40-5.90) Mil/uL Hgb (12.0-18.0) g/dL Hct (35.0-51.0) % MCV (80.0-94.0) fL MCH (27.0-31.0) pg MCHC (33.0-37.0) g/dL RDW (11.5-14.5) % Plt Count (130-400) K/uL MPV (7.2-11.7) fL Neut % (Auto) (50.0-75.0) % Lymph % (Auto) (20.0-40.0) % [place] % (Auto) (0.0-10.0) % Eos % (Auto) (0.0-4.0) % Baso % (Auto) (0.0-2.0) % Neut # (Auto) (1.8-7.0) K/uL Lymph # (Auto) (1.0-4.3) K/uL [place] # (Auto) (0.0-0.8) K/uL Eos # (Auto) (0.0-0.7) K/uL Baso # (Auto) (0.0-0.2) K/uL Puncture Site pCO2 (35-45) mm/Hg pO2 (80-100) mm/Hg HCO3 (21-28) mmol/L ABG pH (7.35-7.45) ABG Total CO2 (22-28) mmol/L ABG O2 Saturation (95-98) % ABG Base Excess (-2.0-3.0) mmol/L ABG Hemoglobin (11.7-17.4) g/dL ABG Carboxyhemoglobin (0.5-1.5) % POC ABG HHb (Measured) (0.0-5.0) % ABG Methemoglobin (0.0-3.0) % Rei Test A-a O2 Difference mm/Hg Respiratory Index Hgb O2 Saturation (95.0-98.0) % Vent Mode Mechanical Rate FiO2 % Tidal Volume PEEP Sodium (132-148) mmol/L Potassium (3.6-5.2) mmol/L Chloride (98-107) mmol/L Carbon Dioxide (22-30) mmol/L Anion Gap (10-20) BUN (9-20) mg/dL Creatinine (0.8-1.5) mg/dL Est GFR ( Amer) Est GFR (Non-Af Amer) Random Glucose (75-110) mg/dL Serum Osmolality (272-300) mosm/kg Calcium (8.6-10.4) mg/dl Phosphorus (2.5-4.5) mg/dL Magnesium (1.6-2.3) mg/dL Total Bilirubin (0.2-1.3) mg/dL AST (17-59) U/L ALT (21-72) U/L Alkaline Phosphatase (38-126) U/L Total Protein (6.3-8.3) g/dL Albumin (3.5-5.0) g/dL Globulin (2.2-3.9) gm/dL Albumin/Globulin Ratio (1.0-2.1) Ur Specific [place] (1.003-1.030) Urine Osmolality (300-1000) mosm/kg Ur Random Sodium mmol/L Butalbital Confirm TEST NOT PERFORMED Opiates (GC/MS) negative Codeine Confirmation TEST NOT PERFORMED Morphine Confirm TEST NOT PERFORMED Hydrocodone Confirm TEST NOT PERFORMED Oxycodone Confirm TEST NOT PERFORMED Methadone (GC/MS) negative Methadone Confirm TEST NOT PERFORMED Free Hydromorphone Conf TEST NOT PERFORMED Propoxyphenes negative Norpropoxyphene TEST NOT PERFORMED Barbiturates negative Phencyclidine (PCP) negative Phencyclidine (GC/MS) TEST NOT PERFORMED Amphetamines negative Amphetamines Confirm TEST NOT PERFORMED Methamphetamine Confirm TEST NOT PERFORMED Methylenedioxyamph MDA TEST NOT PERFORMED MDMA TEST NOT PERFORMED Amobarbital Confirm TEST NOT PERFORMED Butabarbital TEST NOT PERFORMED Pentobarbital Confirm TEST NOT PERFORMED Phenobarbital Confirm TEST NOT PERFORMED Secobarbital Confirm TEST NOT PERFORMED Alprazolam Confirm negative Benzodiazepines Positive H Nordiazepam Confirm negative Desalkylfluraze Cnfrm negative Lorazepam Confirm 66 ng/mL Oxazepam Confirmation negative Cocaine & Metabolite negative Cocaine Confirmation TEST NOT PERFORMED Cocaethylene Confirm TEST NOT PERFORMED Benzoylecgonine Confrm TEST NOT PERFORMED Ecgonine Methyl Sandra TEST NOT PERFORMED Marijuana negative THC Confirmation TEST NOT PERFORMED Carboxy THC Confirm TEST NOT PERFORMED Drugs of Abuse Comment See note Laboratory Results - last 24 hr 08/11/18 08/18/18 08/18/18 08:57 05:25 06:24 WBC 7.9 RBC 3.80 L Hgb 9.6 L Hct 30.2 L MCV 79.3 L MCH 25.1 L MCHC 31.7 L RDW 21.3 H Plt Count 80 L MPV 9.3 Neut % (Auto) 72.0 Lymph % (Auto) 15.1 L [place] % (Auto) 11.8 H Eos % (Auto) 0.8 Baso % (Auto) 0.3 Neut # (Auto) 5.7 Lymph # (Auto) 1.2 [place] # (Auto) 0.9 H Eos # (Auto) 0.1 Baso # (Auto) 0.0 Puncture Site L rad pCO2 37 pO2 98 HCO3 25.7 ABG pH 7.44 ABG Total CO2 26.2 ABG O2 Saturation 99.3 H ABG Base Excess 1.0 ABG Hemoglobin 9.5 L ABG Carboxyhemoglobin 1.9 H POC ABG HHb (Measured) 0.7 ABG Methemoglobin 0.8 Rei Test Pos A-a O2 Difference 70.0 Respiratory Index 0.7 Hgb O2 Saturation 96.6 Vent Mode Prvc Mechanical Rate 15 FiO2 30.0 Tidal Volume 500 PEEP 5 Sodium Potassium Chloride Carbon Dioxide Anion Gap BUN Creatinine Est GFR ( Amer) Est GFR (Non-Af Amer) Random Glucose Serum Osmolality Calcium Phosphorus Magnesium Total Bilirubin AST ALT Alkaline Phosphatase Total Protein Albumin Globulin Albumin/Globulin Ratio Ur Specific [place] Urine Osmolality Ur Random Sodium Butalbital Confirm TEST NOT PERFORMED Opiates (GC/MS) negative Codeine Confirmation TEST NOT PERFORMED Morphine Confirm TEST NOT PERFORMED Hydrocodone Confirm TEST NOT PERFORMED Oxycodone Confirm TEST NOT PERFORMED Methadone (GC/MS) negative Methadone Confirm TEST NOT PERFORMED Free Hydromorphone Conf TEST NOT PERFORMED Propoxyphenes negative Norpropoxyphene TEST NOT PERFORMED Barbiturates negative Phencyclidine (PCP) negative Phencyclidine (GC/MS) TEST NOT PERFORMED Amphetamines negative Amphetamines Confirm TEST NOT PERFORMED Methamphetamine Confirm TEST NOT PERFORMED Methylenedioxyamph MDA TEST NOT PERFORMED MDMA TEST NOT PERFORMED Amobarbital Confirm TEST NOT PERFORMED Butabarbital TEST NOT PERFORMED Pentobarbital Confirm TEST NOT PERFORMED Phenobarbital Confirm TEST NOT PERFORMED Secobarbital Confirm TEST NOT PERFORMED Alprazolam Confirm negative Benzodiazepines Positive H Nordiazepam Confirm negative Desalkylfluraze Cnfrm negative Lorazepam Confirm 66 Oxazepam Confirmation negative Cocaine & Metabolite negative Cocaine Confirmation TEST NOT PERFORMED Cocaethylene Confirm TEST NOT PERFORMED Benzoylecgonine Confrm TEST NOT PERFORMED Ecgonine Methyl Sandra TEST NOT PERFORMED Marijuana negative THC Confirmation TEST NOT PERFORMED Carboxy THC Confirm TEST NOT PERFORMED Drugs of Abuse Comment See note 08/18/18 08/18/18 08/18/18 06:24 11:52 11:52 WBC RBC Hgb Hct MCV MCH MCHC RDW Plt Count MPV Neut % (Auto) Lymph % (Auto) [place] % (Auto) Eos % (Auto) Baso % (Auto) Neut # (Auto) Lymph # (Auto) [place] # (Auto) Eos # (Auto) Baso # (Auto) Puncture Site pCO2 pO2 HCO3 ABG pH ABG Total CO2 ABG O2 Saturation ABG Base Excess ABG Hemoglobin ABG Carboxyhemoglobin POC ABG HHb (Measured) ABG Methemoglobin Rei Test A-a O2 Difference Respiratory Index Hgb O2 Saturation Vent Mode Mechanical Rate FiO2 Tidal Volume PEEP Sodium 152 H Potassium 2.9 L Chloride 113 H Carbon Dioxide 25 Anion Gap 17 BUN 67 H Creatinine 2.4 H Est GFR ( Amer) 34 Est GFR (Non-Af Amer) 28 Random Glucose 161 H Serum Osmolality 317 H Calcium 8.5 L Phosphorus 3.7 Magnesium 2.0 Total Bilirubin 0.7 AST 64 H ALT 57 Alkaline Phosphatase 144 H D Total Protein 6.5 Albumin 3.0 L Globulin 3.5 Albumin/Globulin Ratio 0.9 L Ur Specific [place] Urine Osmolality 450 Ur Random Sodium 91 Butalbital Confirm Opiates (GC/MS) Codeine Confirmation Morphine Confirm Hydrocodone Confirm Oxycodone Confirm Methadone (GC/MS) Methadone Confirm Free Hydromorphone Conf Propoxyphenes Norpropoxyphene Barbiturates Phencyclidine (PCP) Phencyclidine (GC/MS) Amphetamines Amphetamines Confirm Methamphetamine Confirm Methylenedioxyamph MDA MDMA Amobarbital Confirm Butabarbital Pentobarbital Confirm Phenobarbital Confirm Secobarbital Confirm Alprazolam Confirm Benzodiazepines Nordiazepam Confirm Desalkylfluraze Cnfrm Lorazepam Confirm Oxazepam Confirmation Cocaine & Metabolite Cocaine Confirmation Cocaethylene Confirm Benzoylecgonine Confrm Ecgonine Methyl Sandra Marijuana THC Confirmation Carboxy THC Confirm Drugs of Abuse Comment 08/18/18 11:52 WBC RBC Hgb Hct MCV MCH MCHC RDW Plt Count MPV Neut % (Auto) Lymph % (Auto) [place] % (Auto) Eos % (Auto) Baso % (Auto) Neut # (Auto) Lymph # (Auto) [place] # (Auto) Eos # (Auto) Baso # (Auto) Puncture Site pCO2 pO2 HCO3 ABG pH ABG Total CO2 ABG O2 Saturation ABG Base Excess ABG Hemoglobin ABG Carboxyhemoglobin POC ABG HHb (Measured) ABG Methemoglobin Rei Test A-a O2 Difference Respiratory Index Hgb O2 Saturation Vent Mode Mechanical Rate FiO2 Tidal Volume PEEP Sodium Potassium Chloride Carbon Dioxide Anion Gap BUN Creatinine Est GFR ( Amer) Est GFR (Non-Af Amer) Random Glucose Serum Osmolality Calcium Phosphorus Magnesium Total Bilirubin AST ALT Alkaline Phosphatase Total Protein Albumin Globulin Albumin/Globulin Ratio Ur Specific [place] 1.011 Urine Osmolality Ur Random Sodium Butalbital Confirm Opiates (GC/MS) Codeine Confirmation Morphine Confirm Hydrocodone Confirm Oxycodone Confirm Methadone (GC/MS) Methadone Confirm Free Hydromorphone Conf Propoxyphenes Norpropoxyphene Barbiturates Phencyclidine (PCP) Phencyclidine (GC/MS) Amphetamines Amphetamines Confirm Methamphetamine Confirm Methylenedioxyamph MDA MDMA Amobarbital Confirm Butabarbital Pentobarbital Confirm Phenobarbital Confirm Secobarbital Confirm Alprazolam Confirm Benzodiazepines Nordiazepam Confirm Desalkylfluraze Cnfrm Lorazepam Confirm Oxazepam Confirmation Cocaine & Metabolite Cocaine Confirmation Cocaethylene Confirm Benzoylecgonine Confrm Ecgonine Methyl Sandra Marijuana THC Confirmation Carboxy THC Confirm Drugs of Abuse Comment Radiology Impressions: Radiology Impressions Chest X-Ray 08/18/18 07:00 IMPRESSION: Bibasilar opacities and probable very small left pleural effusion, grossly unchanged. Attending/Attestation - Attestation I have personally seen and examined this patient.: Yes I have fully participated in the care of the patient.: Yes I have reviewed all pertinent clinical information: Yes Notes (Text): 08/18/18 16:34 I have seen and examined the patient. Medical records, lab studies, and imaging were reviewed by me and a management plan was formulated on multidisciplinary rounds with resident Dr. Steinberg. I agree with their documented assessment and plan. Patient tolerating PS trials for 2 days now, extubated to BIPAP today. He is hypernatremic from diuresis, adding back free water D5W@150, will titrate down. Critical Care Time 35 minutes. Multi-disciplinary rounds were performed with house staff, nursing, speech therapy, respiratory therapy, pharmacy and nutrition with integrated input from the primary team/attending and other consulting services. The documented time is cumulative and includes review of patient data/exams/labs/chart review and examination of the patient on rounds and throughout the day; time is exclusive of any procedures or teaching time.
--- NOTE | 2018-08-18 22:16 | CP.PCM.PN ---
Subjective - Date & Time of Evaluation Date of Evaluation: 08/18/18 Time of Evaluation: 18:00 - Subjective Subjective: dict Objective - Vital Signs/Intake and Output Vital Signs (last 24 hours): Temp Pulse Resp BP Pulse Ox 97.3 F L 90 21 151/77 H 100 08/18/18 20:00 08/18/18 21:09 08/18/18 21:09 08/18/18 21:09 08/18/18 21:09 Intake and Output: 08/18/18 08/19/18 18:59 06:59 Intake Total 1548.3 400 Output Total 1130 550 Balance 418.3 -150 - Medications Medications: Current Medications Albuterol/Ipratropium (Duoneb 3 Mg/0.5 Mg (3 Ml) Ud) 3 ml INH RQ4 [facility] Last Admin: 08/18/18 19:25 Dose: 3 ml Famotidine (Pepcid) 20 mg IVP DAILY [facility] Last Admin: 08/18/18 09:03 Dose: 20 mg Heparin Sodium (Porcine) (Heparin) 5,000 units SC Q12 [facility] Last Admin: 08/18/18 21:39 Dose: 5,000 units Ceftriaxone Sodium 1 gm/ (Sodium Chloride) 100 mls @ 100 mls/hr IVPB Q12H [facility]; Protocol Last Admin: 08/18/18 12:09 Dose: 100 mls/hr Dextrose (Dextrose 5% In Water 1000 Ml) 1,000 mls @ 100 mls/hr IV .Q10H [facility] Last Admin: 08/18/18 17:02 Dose: 100 mls/hr Insulin Human Regular (Novolin R) 0 unit SC Q6 [facility]; Protocol Last Admin: 08/18/18 18:23 Dose: Not Given Methylprednisolone (Solu-Medrol) 40 mg IVP DAILY [facility] Last Admin: 08/18/18 09:03 Dose: 40 mg Multivitamins/Vitamin C (Multi-Delyn Liquid) 5 ml PO DAILY [facility] Last Admin: 08/18/18 09:03 Dose: 5 ml - Labs Labs: 08/18/18 06:24 08/18/18 06:24
[2018-08-19] MEDS: (Novolin R) Insulin Human Regular 100 units/ml vial SC SCH ×4 (00:23→21:52)
--- NOTE | 2018-08-19 00:24 | CP.PCM.PN ---
Subjective - Date & Time of Evaluation Date of Evaluation: 08/18/18 Time of Evaluation: 16:20 - Subjective Subjective: Patient seen and evaluated No new cardiac events noted Continue current management Objective - Additional Findings Additional findings: - Constitutional Appears: Chronically Ill, intubated and sedated with precedex, not acutely distressed/agitated - Head Exam Head Exam: ATRAUMATIC, NORMOCEPHALIC - Eye Exam Eye Exam: Normal appearance. absent: Conjunctival injection, Scleral icterus Pupil Exam: absent: Irregular, Unequal - ENT Exam ENT Exam: Mucous Membranes Moist ETT in place, secured at lips by securement device NGT in place, secured with tegaderm - Neck Exam Neck exam: Negative for: Thyromegaly - Respiratory Exam intubated and ventilated, on 30% FiO2, overbreathing the ventilator, no accessory muscle or abdominal breathing appreciated - Cardiovascular Exam Cardiovascular Exam: RRR, +S1, +S2. absent: Bradycardia, Tachycardia, Diastolic murmur, Irregular Rhythm, JVD, +S4 - GI/Abdominal Exam GI & Abdominal Exam: Diminished Bowel Sounds. absent: Distended, Firm, Hyperactive Bowel Sounds, Hypoactive Bowel Sounds, Rigid - Extremities Exam Extremities exam: Positive for: pedal edema (Trace in ankles), pedal pulses present, wearing bilateral hand mitts - Neurological Exam Sedated on precedex. Arousable with sounds. 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 Later became hypotensive and further altered, requiring intubation and ICU placement for close monitoring and care. Cardiology Consulted for evaluation and treatment of ACS/CHF. Plan: HFpEF (EtoH Cardiomyopathy), ACS SVT Resolved. ECHO (08/11/18): Mildly dilated LV, Grade I diastolic Dysfunction, elevated atrial pressure. Mild - Moderate bi-atrial anlargement, Migral annular calcifications. RVSP=51mmHG, compatible w/ moderate pulm. htn. Labs: BNP(Adm) - 81039 Mgmt: Continue Medical Mgmt. Heparin 5000 Q12 Objective - Vital Signs/Intake and Output Vital Signs (last 24 hours): Temp Pulse Resp BP Pulse Ox 97.3 F L 99 H 17 157/71 H 99 08/18/18 20:00 08/18/18 23:09 08/18/18 23:09 08/18/18 23:09 08/18/18 23:09 Intake and Output: 08/18/18 08/19/18 18:59 06:59 Intake Total 1548.3 1000 Output Total 1130 700 Balance 418.3 300 - Medications Medications: Current Medications Albuterol/Ipratropium (Duoneb 3 Mg/0.5 Mg (3 Ml) Ud) 3 ml INH RQ4 [facility] Last Admin: 08/18/18 19:25 Dose: 3 ml Famotidine (Pepcid) 20 mg IVP DAILY [facility] Last Admin: 08/18/18 09:03 Dose: 20 mg Heparin Sodium (Porcine) (Heparin) 5,000 units SC Q12 [facility] Last Admin: 08/18/18 21:39 Dose: 5,000 units Ceftriaxone Sodium 1 gm/ (Sodium Chloride) 100 mls @ 100 mls/hr IVPB Q12H [facility]; Protocol Last Admin: 08/18/18 12:09 Dose: 100 mls/hr Dextrose (Dextrose 5% In Water 1000 Ml) 1,000 mls @ 100 mls/hr IV .Q10H [facility] Last Admin: 08/18/18 17:02 Dose: 100 mls/hr Insulin Human Regular (Novolin R) 0 unit SC Q6 [facility]; Protocol Last Admin: 08/18/18 18:23 Dose: Not Given Methylprednisolone (Solu-Medrol) 40 mg IVP DAILY [facility] Last Admin: 08/18/18 09:03 Dose: 40 mg Multivitamins/Vitamin C (Multi-Delyn Liquid) 5 ml PO DAILY [facility] Last Admin: 08/18/18 09:03 Dose: 5 ml - Labs Labs: 08/18/18 06:24 08/18/18 06:24
[2018-08-19] MEDS: Albuterol-Ipratrop 3 mg / 0.5 (3 ml) UD INH SCH ×4 (00:40→12:34)
--- NOTE | 2018-08-19 02:08 | PN ---
DATE: 08/18/2018 SUBJECTIVE: The patient is on ventilator. He is afebrile, less congested, more alert. Low potassium, high sodium. PHYSICAL EXAMINATION: VITAL SIGNS: Blood pressure 151/77, pulse 94, respiratory rate 24, and temperature 97.3. LUNGS: Bilateral rales. Decreased air entry. CARDIOVASCULAR SYSTEM: S1 and S2 plus S3 positive. ABDOMEN: Soft. ASSESSMENT: 1. Pneumonia, respiratory failure. 2. Congestive heart failure. 3. Hypertension. 4. Alcoholism. PLAN: Monitor the patient. Chino Cheung MD
[2018-08-19 05:54] LABS: BASO % 0.4 % (0.0-2.0); EOS # 0.2 K/uL (0.0-0.7); EOS % 1.7 % (0.0-4.0); HEMOGLOBIN 9.3 g/dL (12.0-18.0); LYMPH # 1.7 K/uL (1.0-4.3); LYMPH % 15.8 % (20.0-40.0); MEAN CELL VOLUME 78.2 fL (80.0-94.0); MEAN CORPUSCULAR HEMOGLOBIN 24.6 pg (27.0-31.0); MEAN CORPUSCULAR HGB CONC 31.4 g/dL (33.0-37.0); MEAN PLATELET VOLUME 10.1 fL (7.2-11.7); MONO # 0.9 K/uL (0.0-0.8); MONO % 8.4 % (0.0-10.0); NEUT # 8.1 K/uL (1.8-7.0); NEUT % 73.7 % (50.0-75.0); RBC 3.8 Mil/uL (4.40-5.90); RED CELL DISTRIBUTION WIDTH 20.9 % (11.5-14.5)
[2018-08-19 06:17] LABS: ALB/GLOB RATIO 0.8 (1.0-2.1); ALBUMIN 2.9 g/dL (3.5-5.0); CALCIUM 8.6 mg/dl (8.6-10.4)
[2018-08-19] MEDS: Multiple Vitamins Oral Solution PO SCH (09:10)
[2018-08-19] MEDS: MethylPREDNISolone 40 mg Vial IVP SCH (09:10)
--- NOTE | 2018-08-19 13:25 | RAD ---
Date of service: 08/19/2018 HISTORY: pna COMPARISON: Comparison is made with TECHNIQUE: 08/18/2018 view obtained. FINDINGS: LUNGS: No significant interval changes noted. Again noted patchy opacities in the lungs more prominent at the mid and lower portions. PLEURA: No significant pleural effusion identified, no pneumothorax apparent. CARDIOVASCULAR: No aortic atherosclerotic calcification present. Normal cardiac size. No pulmonary vascular congestion. OSSEOUS STRUCTURES: No significant abnormalities. VISUALIZED UPPER ABDOMEN: The NG tube is seen extending to the stomach. OTHER FINDINGS: None. IMPRESSION: Patchy opacities at the mid and lower portion of the lungs.
[2018-08-19] MEDS: Ipratropium 0.02% Inhal Soln (0.5 mg/2.5 ml) UD IH SCH ×2 (14:35→20:20)
[2018-08-19] MEDS ORDERED: Albuterol-Ipratrop 3 mg / 0.5 (3 ml) UD INH PRN (14:40)
[2018-08-19] MEDS: Sodium Chloride 0.45% 1,000 ML IV SCH (17:20)
[2018-08-19] MEDS: Budesonide 0.25 mg/2 ml Inhal Susp UD INH SCH (20:20)
--- NOTE | 2018-08-19 21:14 | CP.PCM.PN ---
Subjective - Date & Time of Evaluation Date of Evaluation: 08/18/18 Time of Evaluation: 06:00 - Subjective Subjective: seen on rounds extubated alert afebrile NAD Objective - Vital Signs/Intake and Output Vital Signs (last 24 hours): Temp Pulse Resp BP Pulse Ox 98 F 85 14 133/67 100 08/18/18 16:00 08/18/18 18:09 08/18/18 18:09 08/18/18 18:09 08/18/18 18:09 Intake and Output: 08/18/18 08/18/18 06:59 18:59 Intake Total 1930.7 1548.3 Output Total 2355 1560 Balance -424.3 -11.7 - Medications Medications: Current Medications Albuterol/Ipratropium (Duoneb 3 Mg/0.5 Mg (3 Ml) Ud) 3 ml INH RQ4 [facility] Last Admin: 08/18/18 16:23 Dose: 3 ml Famotidine (Pepcid) 20 mg IVP DAILY [facility] Last Admin: 08/18/18 09:03 Dose: 20 mg Heparin Sodium (Porcine) (Heparin) 5,000 units SC Q12 [facility] Last Admin: 08/18/18 09:04 Dose: 5,000 units Ceftriaxone Sodium 1 gm/ (Sodium Chloride) 100 mls @ 100 mls/hr IVPB Q12H [facility]; Protocol Last Admin: 08/18/18 12:09 Dose: 100 mls/hr Dextrose (Dextrose 5% In Water 1000 Ml) 1,000 mls @ 100 mls/hr IV .Q10H [facility] Last Admin: 08/18/18 17:02 Dose: 100 mls/hr Insulin Human Regular (Novolin R) 0 unit SC Q6 [facility]; Protocol Last Admin: 08/18/18 18:23 Dose: Not Given Methylprednisolone (Solu-Medrol) 40 mg IVP DAILY [facility] Last Admin: 08/18/18 09:03 Dose: 40 mg Multivitamins/Vitamin C (Multi-Delyn Liquid) 5 ml PO DAILY [facility] Last Admin: 08/18/18 09:03 Dose: 5 ml - Labs Labs: 08/18/18 06:24 08/18/18 06:24 - Constitutional Appears: Non-toxic, Chronically Ill - Head Exam Head Exam: NORMOCEPHALIC - Eye Exam Eye Exam: EOMI, Normal appearance, PERRL Pupil Exam: NORMAL ACCOMODATION, PERRL - ENT Exam ENT Exam: Mucous Membranes Moist, Normal Exam - Neck Exam Neck Exam: Full ROM, Normal Inspection. absent: Lymphadenopathy - Respiratory Exam Respiratory Exam: Clear to Ausculation Bilateral, NORMAL BREATHING PATTERN - Cardiovascular Exam Cardiovascular Exam: REGULAR RHYTHM, +S1, +S2. absent: Murmur - GI/Abdominal Exam GI & Abdominal Exam: Soft, Normal Bowel Sounds. absent: Tenderness - Rectal Exam Rectal Exam: Deferred - Extremities Exam Extremities Exam: Full ROM, Normal Capillary Refill, Normal Inspection. absent: Joint Swelling, Pedal Edema - Back Exam Back Exam: NORMAL INSPECTION - Neurological Exam Neurological Exam: Alert, Awake, CN II-XII Intact, Normal Gait, Oriented x3 - Psychiatric Exam Psychiatric exam: Normal Affect, Normal Mood - Skin Skin Exam: Dry, Intact, Normal Color, Warm Assessment and Plan (1) Alcohol abuse with intoxication Status: Acute (2) Cirrhosis Status: Acute (3) Hydrocele of testis Status: Acute (4) Pneumonia Status: Acute (5) Sepsis Status: Acute (6) Subdural hemorrhage Status: Acute (7) Alcoholic cirrhosis Status: Chronic - Assessment and Plan (Free Text) Assessment: cont rx as planned supportive care
[2018-08-19] MEDS ORDERED: Cefepime IV 1 gm in Dextrose 1 GM/50 ML BAG IVPB SCH (21:30)
--- NOTE | 2018-08-19 21:56 | CP.PCM.PN ---
Subjective - Date & Time of Evaluation Date of Evaluation: 08/19/18 Time of Evaluation: 12:00 - Subjective Subjective: Patient extubated yesterday; somewhat confused; is thirsty; tolerating liquids; denies any difficulty breathing; Objective - Vital Signs/Intake and Output Vital Signs (last 24 hours): Temp Pulse Resp BP Pulse Ox 100.2 F H 118 H 17 161/72 H 98 08/19/18 20:00 08/19/18 19:09 08/19/18 19:09 08/19/18 19:09 08/19/18 20:00 Intake and Output: 08/19/18 08/20/18 18:59 06:59 Intake Total 1600 100 Output Total 1830 120 Balance -230 -20 - Medications Medications: Current Medications Albuterol/Ipratropium (Duoneb 3 Mg/0.5 Mg (3 Ml) Ud) 3 ml INH RQ4 PRN PRN Reason: Wheezing Arformoterol Tartrate (Brovana) 15 mcg INH RQ12@1000,2200 [facility] Budesonide (Pulmicort Respules) 0.25 mg INH RQ12 [facility] Last Admin: 08/19/18 20:20 Dose: 0.25 mg Famotidine (Pepcid) 20 mg IVP DAILY [facility] Last Admin: 08/19/18 09:10 Dose: 20 mg Heparin Sodium (Porcine) (Heparin) 5,000 units SC Q12 [facility] Last Admin: 08/19/18 21:12 Dose: 5,000 units Sodium Chloride (Sodium Chloride 0.45%) 1,000 mls @ 100 mls/hr IV .Q10H [facility] Stop: 08/20/18 17:16 Last Admin: 08/19/18 17:20 Dose: 100 mls/hr Cefepime HCl (Maxipime Iv 1 Gm Premix) 1 gm in 50 mls @ 100 mls/hr IVPB Q24H [facility]; Protocol Vancomycin HCl 1 gm/ Sodium (Chloride) 250 mls @ 166.7 mls/hr IVPB STAT STA; Protocol Stop: 08/19/18 22:47 Insulin Human Regular (Novolin R) 0 unit SC ACHS [facility]; Protocol Last Admin: 08/19/18 21:52 Dose: Not Given Ipratropium Milo (Atrovent) 0.5 mg IH RQ6 [facility] Last Admin: 08/19/18 20:20 Dose: 0.5 mg Multivitamins/Vitamin C (Multi-Delyn Liquid) 5 ml PO DAILY [facility] Last Admin: 08/19/18 09:10 Dose: 5 ml - Labs Labs: 08/19/18 05:47 08/19/18 05:47 - Constitutional Appears: Non-toxic, No Acute Distress - Eye Exam Eye Exam: Normal appearance. absent: Scleral icterus - Respiratory Exam Respiratory Exam: absent: Respiratory Distress Additional comments: some decreased breath sounds at bases, otherwise clear; - Cardiovascular Exam Cardiovascular Exam: RRR, +S1, +S2. absent: Gallop, Rubs - GI/Abdominal Exam GI & Abdominal Exam: Soft. absent: Distended, Tenderness - Exam Additional comments: gay draining urine briskly; - Neurological Exam Neurological Exam: Alert, Awake - Psychiatric Exam Psychiatric exam: Normal Mood. absent: Agitated - Skin Skin Exam: Warm. absent: Cyanosis Assessment and Plan (1) Acute renal failure Assessment & Plan: Consistent with ATN; now in polyuric phase of recovery with urine output 180 cc/hr at time of encounter; hypernatremia improved with D5W but may be getting volume depleted (normotensive but tachycardic); -changing IVF to 1/2NS at 100 cc/hr (avoiding higher rate due to pleural effusions); -avoid nephrotoxic agents; Status: Acute (2) Hypernatremia Assessment & Plan: Improving; see above regarding IVF; nursing staff informed to encourage PO fluid intake; Status: Acute (3) Pleural effusion Assessment & Plan: Bilateral effusions on imaging but with no hypoxia; monitor; Status: Acute (4) Sepsis Assessment & Plan: On cefepime 1 g daily, may need to increase dose in the setting of improving renal function; Status: Acute
[2018-08-19] MEDS: Arformoterol 15 mcg/2 ml Inh Sol INH SCH (22:49)
[2018-08-20] MEDS: Ipratropium 0.02% Inhal Soln (0.5 mg/2.5 ml) UD IH SCH ×4 (00:59→20:29)
[2018-08-20] MEDS: Sodium Chloride 0.45% 1,000 ML IV SCH ×2 (05:39→15:20)
[2018-08-20 07:48] LABS: BASO % 0.1 % (0.0-2.0); EOS # 0.1 K/uL (0.0-0.7); EOS % 0.6 % (0.0-4.0); HEMOGLOBIN 8.5 g/dL (12.0-18.0); LYMPH # 1.5 K/uL (1.0-4.3); LYMPH % 10.1 % (20.0-40.0); MEAN CELL VOLUME 77.6 fL (80.0-94.0); MEAN CORPUSCULAR HEMOGLOBIN 25.1 pg (27.0-31.0); MEAN CORPUSCULAR HGB CONC 32.3 g/dL (33.0-37.0); MEAN PLATELET VOLUME 9.9 fL (7.2-11.7); MONO # 0.8 K/uL (0.0-0.8); MONO % 5.5 % (0.0-10.0); NEUT # 12.5 K/uL (1.8-7.0); NEUT % 83.7 % (50.0-75.0); RBC 3.37 Mil/uL (4.40-5.90); RED CELL DISTRIBUTION WIDTH 20.9 % (11.5-14.5); WHITE BLOOD COUNT 14.9 K/uL (4.8-10.8)
[2018-08-20] MEDS: (Novolin R) Insulin Human Regular 100 units/ml vial SC SCH ×4 (07:51→22:00)
[2018-08-20] MEDS: Budesonide 0.25 mg/2 ml Inhal Susp UD INH SCH ×2 (07:52→20:29)
[2018-08-20 08:00] LABS: ALB/GLOB RATIO 0.8 (1.0-2.1); ALBUMIN 2.7 g/dL (3.5-5.0); CALCIUM 8.2 mg/dl (8.6-10.4)
[2018-08-20 08:24] LABS: IRON 62 ug/dL (49-181)
[2018-08-20 08:33] LABS: % IRON SATURATION 23 (20-55); TOTAL IRON BINDING CAPACITY 274 ug/dL (250-450)
[2018-08-20 09:05] LABS: FOLATE 11.5 ng/mL
[2018-08-20] MEDS: Multiple Vitamins Oral Solution PO SCH (09:07)
[2018-08-20] MEDS: Arformoterol 15 mcg/2 ml Inh Sol INH SCH ×2 (10:18→21:04)
--- NOTE | 2018-08-20 18:23 | CP.PCM.PN ---
Subjective - Date & Time of Evaluation Date of Evaluation: 08/20/18 Time of Evaluation: 08:00 - Subjective Subjective: seen on rounds c/o diarrhea c diff prev negative Objective - Vital Signs/Intake and Output Vital Signs (last 24 hours): Temp Pulse Resp BP Pulse Ox 98.7 F 97 H 18 132/65 98 08/20/18 16:00 08/20/18 16:00 08/20/18 16:00 08/20/18 16:00 08/20/18 16:00 Intake and Output: 08/20/18 08/20/18 06:59 18:59 Intake Total 1900 1800 Output Total 1320 1450 Balance 580 350 - Medications Medications: Current Medications Albuterol/Ipratropium (Duoneb 3 Mg/0.5 Mg (3 Ml) Ud) 3 ml INH RQ4 PRN PRN Reason: Wheezing Arformoterol Tartrate (Brovana) 15 mcg INH RQ12@1000,2200 [facility] Last Admin: 08/20/18 10:18 Dose: 15 mcg Budesonide (Pulmicort Respules) 0.25 mg INH RQ12 [facility] Last Admin: 08/20/18 07:52 Dose: 0.25 mg Famotidine (Pepcid) 20 mg IVP DAILY [facility] Last Admin: 08/20/18 09:06 Dose: 20 mg Heparin Sodium (Porcine) (Heparin) 5,000 units SC Q12 [facility] Last Admin: 08/20/18 09:07 Dose: 5,000 units Cefepime HCl (Maxipime Iv 1 Gm Premix) 1 gm in 50 mls @ 100 mls/hr IVPB Q24H [facility]; Protocol Last Admin: 08/19/18 22:00 Dose: 100 mls/hr Insulin Human Regular (Novolin R) 0 unit SC ACHS [facility]; Protocol Last Admin: 08/20/18 16:25 Dose: Not Given Ipratropium [place] (Atrovent) 0.5 mg IH RQ6 [facility] Last Admin: 08/20/18 13:44 Dose: 0.5 mg Multivitamins/Vitamin C (Multi-Delyn Liquid) 5 ml PO DAILY [facility] Last Admin: 08/20/18 09:07 Dose: 5 ml - Labs Labs: 08/20/18 07:41 08/20/18 07:41 - Constitutional Appears: No Acute Distress, Confused, Chronically Ill - Head Exam Head Exam: NORMOCEPHALIC - Eye Exam Eye Exam: absent: Scleral icterus Pupil Exam: NORMAL ACCOMODATION - ENT Exam ENT Exam: Mucous Membranes Dry - Neck Exam Neck Exam: Full ROM, Normal Inspection. absent: Lymphadenopathy - Respiratory Exam Respiratory Exam: Clear to Ausculation Bilateral, NORMAL BREATHING PATTERN - Cardiovascular Exam Cardiovascular Exam: REGULAR RHYTHM, +S1, +S2. absent: Murmur - GI/Abdominal Exam GI & Abdominal Exam: Distended, Soft, Normal Bowel Sounds. absent: Tenderness - Rectal Exam Rectal Exam: Deferred - Extremities Exam Extremities Exam: Pedal Edema. absent: Joint Swelling - Back Exam Back Exam: NORMAL INSPECTION - Neurological Exam Neurological Exam: Alert, Altered, Awake, CN II-XII Intact. absent: Normal Gait, Oriented x3 - Psychiatric Exam Psychiatric exam: Depressed - Skin Skin Exam: Dry, Intact, Normal Color, Warm Assessment and Plan (1) Alcohol abuse with intoxication Status: Acute (2) Cirrhosis Status: Acute (3) Hydrocele of testis Status: Acute (4) Pneumonia Status: Acute (5) Sepsis Status: Acute (6) Subdural hemorrhage Status: Acute (7) Alcoholic cirrhosis Status: Chronic - Assessment and Plan (Free Text) Assessment: c/o diarrhea hold IV Cefepime add flagyl c diff prev negative
[2018-08-20] MEDS: metroNIDAZOLE IV 500 mg/100 ml 500 MG/100 ML BAG IVPB SCH (18:52)
[2018-08-20] MEDS ORDERED: Potassium Chloride 20 mEq/15 ml LIQ UD PO ONE (19:21)
[2018-08-20] MEDS: Sodium Chloride 0.9% 1,000 ML IV SCH (20:20)
--- NOTE | 2018-08-20 20:33 | CP.PCM.PN ---
Subjective - Date & Time of Evaluation Date of Evaluation: 08/19/18 Time of Evaluation: 15:15 - Subjective Subjective: Patient seen and evaluated No new cardiac events noted Objective - Additional Findings Additional findings: - Constitutional Appears: Chronically Ill, intubated and sedated with precedex, not acutely distressed/agitated - Head Exam Head Exam: ATRAUMATIC, NORMOCEPHALIC - Eye Exam Eye Exam: Normal appearance. absent: Conjunctival injection, Scleral icterus Pupil Exam: absent: Irregular, Unequal - ENT Exam ENT Exam: Mucous Membranes Moist ETT in place, secured at lips by securement device NGT in place, secured with tegaderm - Neck Exam Neck exam: Negative for: Thyromegaly - Respiratory Exam intubated and ventilated, on 30% FiO2, overbreathing the ventilator, no accessory muscle or abdominal breathing appreciated - Cardiovascular Exam Cardiovascular Exam: RRR, +S1, +S2. absent: Bradycardia, Tachycardia, Diastolic murmur, Irregular Rhythm, JVD, +S4 - GI/Abdominal Exam GI & Abdominal Exam: Diminished Bowel Sounds. absent: Distended, Firm, Hyperact lisa Bowel Sounds, Hypoactive Bowel Sounds, Rigid - Extremities Exam Extremities exam: Positive for: pedal edema (Trace in ankles), pedal pulses present, wearing bilateral hand mitts - Neurological Exam Sedated on precedex. Arousable with sounds. - Psychiatric Exam sedated on precedex, unable to assess - Skin Skin Exam: Dry, Intact, Normal Color, Warm Assessment and Plan - Assessment and Plan (Free Text) Assessment: This is a 57 yo M with PMH of ETOH abuse, Liver Cirrhosis, Chronic Subdural Flynn lee (Feb), urethral strictures, anemia, thrombocytopenia, and HTN who was brought in by EMS after being found in the field intoxicating, [place] defecation [place] train tracks. Later became hypotensive and further altered, requiring intubation and ICU placement for close monitoring and care. Cardiology Consulted for evaluation and treatment of ACS/CHF. Plan: HFpEF (EtoH Cardiomyopathy), ACS SVT Resolved. ECHO (08/11/18): Mildly dilated LV, Grade I diastolic Dysfunction, elevated atrial pressure. Mild - Moderate bi-atrial anlargement, Migral annular calcifications. RVSP=51mmHG, compatible w/ moderate pulm. htn. Labs: BNP(Adm) - 34435 Mgmt: Continue Medical Mgmt. Heparin 5000 Q12 Objective - Vital Signs/Intake and Output Vital Signs (last 24 hours): Temp Pulse Resp BP Pulse Ox 98.7 F 97 H 18 132/65 98 08/20/18 16:00 08/20/18 16:00 08/20/18 16:00 08/20/18 16:00 08/20/18 16:00 Intake and Output: 08/20/18 08/21/18 18:59 06:59 Intake Total 1800 75 Output Total 1450 Balance 350 75 - Medications Medications: Current Medications Albuterol/Ipratropium (Duoneb 3 Mg/0.5 Mg (3 Ml) Ud) 3 ml INH RQ4 PRN PRN Reason: Wheezing Arformoterol Tartrate (Brovana) 15 mcg INH RQ12@1000,2200 [facility] Last Admin: 08/20/18 10:18 Dose: 15 mcg Budesonide (Pulmicort Respules) 0.25 mg INH RQ12 [facility] Last Admin: 08/20/18 20:29 Dose: 0.25 mg Famotidine (Pepcid) 20 mg IVP DAILY [facility] Last Admin: 08/20/18 09:06 Dose: 20 mg Heparin Sodium (Porcine) (Heparin) 5,000 units SC Q12 [facility] Last Admin: 08/20/18 09:07 Dose: 5,000 units Metronidazole (Flagyl) 500 mg in 100 mls @ 100 mls/hr IVPB Q8H [facility]; Protocol Last Admin: 08/20/18 18:52 Dose: 100 mls/hr Sodium Chloride (Sodium Chloride 0.9%) 1,000 mls @ 75 mls/hr IV .[id number] [facility] Last Admin: 08/20/18 20:20 Dose: 75 mls/hr Insulin Human Regular (Novolin R) 0 unit SC ACHS [facility]; Protocol Last Admin: 08/20/18 16:25 Dose: Not Given Ipratropium [place] (Atrovent) 0.5 mg IH RQ6 [facility] Last Admin: 08/20/18 20:29 Dose: 0.5 mg Multivitamins/Vitamin C (Multi-Delyn Liquid) 5 ml PO DAILY [facility] Last Admin: 08/20/18 09:07 Dose: 5 ml - Labs Labs: 08/20/18 07:41 08/20/18 07:41
--- NOTE | 2018-08-20 20:34 | CP.PCM.PN ---
Subjective - Date & Time of Evaluation Date of Evaluation: 08/20/18 Time of Evaluation: 13:05 - Subjective Subjective: Extubated Patient seen and evaluated No new cardiac events noted Objective - Additional Findings Additional findings: - Constitutional Appears: Chronically Ill, intubated and sedated with precedex, not acutely distressed/agitated - Head Exam Head Exam: ATRAUMATIC, NORMOCEPHALIC - Eye Exam Eye Exam: Normal appearance. absent: Conjunctival injection, Scleral icterus Pupil Exam: absent: Irregular, Unequal - ENT Exam ENT Exam: Mucous Membranes Moist ETT in place, secured at lips by securement device NGT in place, secured with tegaderm - Neck Exam Neck exam: Negative for: Thyromegaly - Respiratory Exam intubated and ventilated, on 30% FiO2, overbreathing the ventilator, no accessory muscle or abdominal breathing appreciated - Cardiovascular Exam Cardiovascular Exam: RRR, +S1, +S2. absent: Bradycardia, Tachycardia, Diastolic murmur, Irregular Rhythm, JVD, +S4 - GI/Abdominal Exam GI & Abdominal Exam: Diminished Bowel Sounds. absent: Distended, Firm, Hyperactive Bowel Sounds, Hypoactive Bowel Sounds, Rigid - Extremities Exam Extremities exam: Positive for: pedal edema (Trace in ankles), pedal pulses present, wearing bilateral hand mitts - Neurological Exam Sedated on precedex. Arousable with sounds. 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 Later became hypotensive and further altered, requiring intubation and ICU placement for close monitoring and care. Cardiology Consulted for evaluation and treatment of ACS/CHF. Plan: HFpEF (EtoH Cardiomyopathy), ACS SVT Resolved. ECHO (08/11/18): Mildly dilated LV, Grade I diastolic Dysfunction, elevated atrial pressure. Mild - Moderate bi-atrial anlargement, Migral annular calcifications. RVSP=51mmHG, compatible w/ moderate pulm. htn. Labs: BNP(Adm) - 14169 Mgmt: Continue Medical Mgmt. Heparin 5000 Q12 Objective - Vital Signs/Intake and Output Vital Signs (last 24 hours): Temp Pulse Resp BP Pulse Ox 98.7 F 97 H 18 132/65 98 08/20/18 16:00 08/20/18 16:00 08/20/18 16:00 08/20/18 16:00 08/20/18 16:00 Intake and Output: 08/20/18 08/21/18 18:59 06:59 Intake Total 1800 75 Output Total 1450 Balance 350 75 - Medications Medications: Current Medications Albuterol/Ipratropium (Duoneb 3 Mg/0.5 Mg (3 Ml) Ud) 3 ml INH RQ4 PRN PRN Reason: Wheezing Arformoterol Tartrate (Brovana) 15 mcg INH RQ12@1000,2200 [facility] Last Admin: 08/20/18 10:18 Dose: 15 mcg Budesonide (Pulmicort Respules) 0.25 mg INH RQ12 [facility] Last Admin: 08/20/18 20:29 Dose: 0.25 mg Famotidine (Pepcid) 20 mg IVP DAILY [facility] Last Admin: 08/20/18 09:06 Dose: 20 mg Heparin Sodium (Porcine) (Heparin) 5,000 units SC Q12 [facility] Last Admin: 08/20/18 09:07 Dose: 5,000 units Metronidazole (Flagyl) 500 mg in 100 mls @ 100 mls/hr IVPB Q8H [facility]; Protocol Last Admin: 08/20/18 18:52 Dose: 100 mls/hr Sodium Chloride (Sodium Chloride 0.9%) 1,000 mls @ 75 mls/hr IV .[id number] [facility] Last Admin: 08/20/18 20:20 Dose: 75 mls/hr Insulin Human Regular (Novolin R) 0 unit SC ACHS [facility]; Protocol Last Admin: 08/20/18 16:25 Dose: Not Given Ipratropium [place] (Atrovent) 0.5 mg IH RQ6 [facility] Last Admin: 08/20/18 20:29 Dose: 0.5 mg Multivitamins/Vitamin C (Multi-Delyn Liquid) 5 ml PO DAILY [facility] Last Admin: 08/20/18 09:07 Dose: 5 ml - Labs Labs: 08/20/18 07:41 08/20/18 07:41
--- NOTE | 2018-08-20 22:23 | CP.PCM.PN ---
Subjective - Date & Time of Evaluation Date of Evaluation: 08/19/18 Time of Evaluation: 07:20 - Subjective Subjective: dict Objective - Vital Signs/Intake and Output Vital Signs (last 24 hours): Temp Pulse Resp BP Pulse Ox 98.3 F 88 26 H 145/72 99 08/20/18 20:00 08/20/18 20:00 08/20/18 20:00 08/20/18 20:00 08/20/18 20:00 Intake and Output: 08/20/18 08/21/18 18:59 06:59 Intake Total 1800 75 Output Total 1450 Balance 350 75 - Medications Medications: Current Medications Albuterol/Ipratropium (Duoneb 3 Mg/0.5 Mg (3 Ml) Ud) 3 ml INH RQ4 PRN PRN Reason: Wheezing Arformoterol Tartrate (Brovana) 15 mcg INH RQ12@1000,2200 [facility] Last Admin: 08/20/18 21:04 Dose: 15 mcg Budesonide (Pulmicort Respules) 0.25 mg INH RQ12 [facility] Last Admin: 08/20/18 20:29 Dose: 0.25 mg Famotidine (Pepcid) 20 mg IVP DAILY [facility] Last Admin: 08/20/18 09:06 Dose: 20 mg Metronidazole (Flagyl) 500 mg in 100 mls @ 100 mls/hr IVPB Q8H [facility]; Protocol Last Admin: 08/20/18 18:52 Dose: 100 mls/hr Sodium Chloride (Sodium Chloride 0.9%) 1,000 mls @ 75 mls/hr IV .[id number] [facility] Last Admin: 08/20/18 20:20 Dose: 75 mls/hr Insulin Human Regular (Novolin R) 0 unit SC ACHS [facility]; Protocol Last Admin: 08/20/18 16:25 Dose: Not Given Ipratropium [place] (Atrovent) 0.[address] [facility] Last Admin: 08/20/18 20:29 Dose: 0.5 mg Multivitamins/Vitamin C (Multi-Delyn Liquid) 5 ml PO DAILY [facility] Last Admin: 08/20/18 09:07 Dose: 5 ml - Labs Labs: 08/20/18 07:41 08/20/18 07:41
--- NOTE | 2018-08-20 22:24 | CP.PCM.PN ---
Subjective - Date & Time of Evaluation Date of Evaluation: 08/20/18 Time of Evaluation: 07:30 - Subjective Subjective: dict Objective - Vital Signs/Intake and Output Vital Signs (last 24 hours): Temp Pulse Resp BP Pulse Ox 98.3 F 88 26 H 145/72 99 08/20/18 20:00 08/20/18 20:00 08/20/18 20:00 08/20/18 20:00 08/20/18 20:00 Intake and Output: 08/20/18 08/21/18 18:59 06:59 Intake Total 1800 75 Output Total 1450 Balance 350 75 - Medications Medications: Current Medications Albuterol/Ipratropium (Duoneb 3 Mg/0.5 Mg (3 Ml) Ud) 3 ml INH RQ4 PRN PRN Reason: Wheezing Arformoterol Tartrate (Brovana) 15 mcg INH RQ12@1000,2200 [facility] Last Admin: 08/20/18 21:04 Dose: 15 mcg Budesonide (Pulmicort Respules) 0.25 mg INH RQ12 [facility] Last Admin: 08/20/18 20:29 Dose: 0.25 mg Famotidine (Pepcid) 20 mg IVP DAILY [facility] Last Admin: 08/20/18 09:06 Dose: 20 mg Metronidazole (Flagyl) 500 mg in 100 mls @ 100 mls/hr IVPB Q8H [facility]; Protocol Last Admin: 08/20/18 18:52 Dose: 100 mls/hr Sodium Chloride (Sodium Chloride 0.9%) 1,000 mls @ 75 mls/hr IV .[id number] [facility] Last Admin: 08/20/18 20:20 Dose: 75 mls/hr Insulin Human Regular (Novolin R) 0 unit SC ACHS [facility]; Protocol Last Admin: 08/20/18 16:25 Dose: Not Given Ipratropium [place] (Atrovent) 0.5 mg IH RQ6 [facility] Last Admin: 08/20/18 20:29 Dose: 0.5 mg Multivitamins/Vitamin C (Multi-Delyn Liquid) 5 ml PO DAILY [facility] Last Admin: 08/20/18 09:07 Dose: 5 ml - Labs Labs: 08/20/18 07:41 08/20/18 07:41
--- NOTE | 2018-08-21 00:40 | PN ---
DATE: 08/20/2018 SUBJECTIVE: The patient is congested, coughing and wheezing, tracheal secretions. PHYSICAL EXAMINATION: VITAL SIGNS: Blood pressure 161/70, pulse 119, respiratory rate 22, and temperature 100.2. LUNGS: Bilateral transmitted breath sounds. Bilateral scattered rales and rhonchi. Decreased air entry. CARDIOVASCULAR SYSTEM: S1 and S2 plus S3 positive. ABDOMEN: Soft, nontender. Bowel sounds are positive. ASSESSMENT AND PLAN: 1. Respiratory failure with congestive heart failure with pneumonia. 2. 3. Hypertension. Continue current medications and antibiotics, , oxygen. Monitor the patient. Chino Cheung MD
[2018-08-21] MEDS: metroNIDAZOLE IV 500 mg/100 ml 500 MG/100 ML BAG IVPB SCH ×3 (01:38→18:09)
--- NOTE | 2018-08-21 01:53 | PN ---
DATE: 08/20/2018 SUBJECTIVE: The patient is unchanged. The patient had been extubated today and no acute cardiac events. He looks sick; and the patient is still agitated, delirious, confused. PHYSICAL EXAMINATION: VITAL SIGNS: Blood pressure 145/72, pulse 88, respiratory rate 26, temperature 98.3. LUNGS: Bilateral scattered rales. No rhonchi. CARDIOVASCULAR: S1 and S2 plus S3 positive. ABDOMEN: Soft. ASSESSMENT: 1. Respiratory failure, resolved. 2. Pneumonia. 3. Congestive heart failure. 4. Hypertension. PLAN: Continue current medications. Monitor the patient. Chino Cheung MD
[2018-08-21 06:07] LABS: BASO % 0.4 % (0.0-2.0); EOS # 0.2 K/uL (0.0-0.7); HEMOGLOBIN 8.1 g/dL (12.0-18.0); LYMPH # 1.5 K/uL (1.0-4.3); LYMPH % 16.1 % (20.0-40.0); MEAN CELL VOLUME 78.6 fL (80.0-94.0); MEAN CORPUSCULAR HEMOGLOBIN 24.9 pg (27.0-31.0); MEAN CORPUSCULAR HGB CONC 31.6 g/dL (33.0-37.0); MEAN PLATELET VOLUME 11.1 fL (7.2-11.7); MONO # 0.8 K/uL (0.0-0.8); MONO % 8.3 % (0.0-10.0); NEUT % 73.2 % (50.0-75.0); RBC 3.27 Mil/uL (4.40-5.90); RED CELL DISTRIBUTION WIDTH 20.9 % (11.5-14.5); WHITE BLOOD COUNT 9.5 K/uL (4.8-10.8)
[2018-08-21 06:11] LABS: INR 1.4; PROTHROMBIN TIME 15.6 SECONDS (9.7-12.2)
[2018-08-21 06:24] LABS: ALB/GLOB RATIO 0.8 (1.0-2.1); ALBUMIN 2.6 g/dL (3.5-5.0); CALCIUM 7.6 mg/dl (8.6-10.4)
[2018-08-21] MEDS: Budesonide 0.25 mg/2 ml Inhal Susp UD INH SCH ×2 (07:36→21:03)
[2018-08-21] MEDS: Ipratropium 0.02% Inhal Soln (0.5 mg/2.5 ml) UD IH SCH ×3 (07:36→21:03)
[2018-08-21] MEDS: (Novolin R) Insulin Human Regular 100 units/ml vial SC SCH ×4 (07:53→21:35)
[2018-08-21] MEDS: Sodium Chloride 0.9% 1,000 ML IV SCH ×2 (09:11→16:00)
[2018-08-21] MEDS: Multiple Vitamins Oral Solution PO SCH (09:13)
[2018-08-21] MEDS: Arformoterol 15 mcg/2 ml Inh Sol INH SCH ×2 (09:51→21:03)
[2018-08-21] MEDS ORDERED: Potassium Chloride 20 mEq/15 ml LIQ UD PO ONE (12:48)
[2018-08-21 13:07] VITALS: RESP 20
--- NOTE | 2018-08-21 19:34 | CP.PCM.PN ---
Subjective - Date & Time of Evaluation Date of Evaluation: 08/21/18 Time of Evaluation: 13:00 - Subjective Subjective: Patient reporting diarrhea since 2 days; no nausea/vomiting; tolerating diet well; breathing well; Objective - Vital Signs/Intake and Output Vital Signs (last 24 hours): Temp Pulse Resp BP Pulse Ox 97.5 F L 99 H 20 146/71 98 08/21/18 15:53 08/21/18 15:53 08/21/18 15:53 08/21/18 15:53 08/21/18 15:53 Intake and Output: 08/21/18 08/22/18 18:59 06:59 Intake Total 700 Output Total 1120 Balance -420 - Medications Medications: Current Medications Albuterol/Ipratropium (Duoneb 3 Mg/0.5 Mg (3 Ml) Ud) 3 ml INH RQ4 PRN PRN Reason: Wheezing Arformoterol Tartrate (Brovana) 15 mcg INH RQ12@1000,2200 [facility] Last Admin: 08/21/18 09:51 Dose: 15 mcg Budesonide (Pulmicort Respules) 0.25 mg INH RQ12 [facility] Last Admin: 08/21/18 07:36 Dose: 0.25 mg Famotidine (Pepcid) 20 mg IVP DAILY [facility] Last Admin: 08/21/18 09:13 Dose: 20 mg Metronidazole (Flagyl) 500 mg in 100 mls @ 100 mls/hr IVPB Q8H [facility]; Protocol Last Admin: 08/21/18 18:09 Dose: 100 mls/hr Sodium Chloride (Sodium Chloride 0.9%) 1,000 mls @ 100 mls/hr IV .Q10H [facility] Insulin Human Regular (Novolin R) 0 unit SC ACHS [facility]; Protocol Last Admin: 08/21/18 16:30 Dose: Not Given Ipratropium [place] (Atrovent) 0.5 mg IH RQ6 [facility] Last Admin: 08/21/18 07:36 Dose: 0.5 mg Multivitamins/Vitamin C (Multi-Delyn Liquid) 5 ml PO DAILY [facility] Last Admin: 08/21/18 09:13 Dose: 5 ml - Labs Labs: 08/21/18 05:59 08/21/18 05:59 PT 15.6 SECONDS (9.7-12.2) H 08/21/18 05:59 INR 1.4 08/21/18 05:59 APTT 27.0 SECONDS (21-34) 08/21/18 05:59 - Constitutional Appears: Non-toxic, No Acute Distress - Eye Exam Eye Exam: Normal appearance. absent: Scleral icterus - Respiratory Exam Respiratory Exam: Clear to Ausculation Bilateral. absent: Respiratory Distress - Cardiovascular Exam Cardiovascular Exam: RRR, +S1, +S2 - GI/Abdominal Exam GI & Abdominal Exam: Soft. absent: Distended, Tenderness - Extremities Exam Additional comments: much improved leg edema; - Neurological Exam Neurological Exam: Alert, Awake - Psychiatric Exam Psychiatric exam: Normal Mood. absent: Agitated - Skin Skin Exam: Warm. absent: Cyanosis Assessment and Plan (1) Acute renal failure Assessment & Plan: ATN, serum creatinine at relative plateau after showing some improvement; volume depletion a concern with polyuria (~160 cc/hr) and diarrhea; mild but persistent hypokalemia; -Increasing NS to 100 cc/hr; -Replenishing with KCl 40 meq PO; -Avoid nephrotoxic agents; Status: Acute (2) Hypernatremia Status: Resolved (3) Pleural effusion Assessment & Plan: Asymptomatic and without need for supplemental O2; monitor; Status: Acute (4) Sepsis Status: Acute
--- NOTE | 2018-08-21 22:34 | CP.PCM.PN ---
Subjective - Date & Time of Evaluation Date of Evaluation: 08/21/18 Time of Evaluation: 07:20 - Subjective Subjective: dict Objective - Vital Signs/Intake and Output Vital Signs (last 24 hours): Temp Pulse Resp BP Pulse Ox 97.5 F L 99 H 20 146/71 98 08/21/18 15:53 08/21/18 15:53 08/21/18 15:53 08/21/18 15:53 08/21/18 15:53 Intake and Output: 08/21/18 08/22/18 18:59 06:59 Intake Total 700 Output Total 1120 Balance -420 - Medications Medications: Current Medications Albuterol/Ipratropium (Duoneb 3 Mg/0.5 Mg (3 Ml) Ud) 3 ml INH RQ4 PRN PRN Reason: Wheezing Arformoterol Tartrate (Brovana) 15 mcg INH RQ12@1000,2200 [facility] Last Admin: 08/21/18 21:03 Dose: Not Given Budesonide (Pulmicort Respules) 0.25 mg INH RQ12 [facility] Last Admin: 08/21/18 21:03 Dose: Not Given Famotidine (Pepcid) 20 mg IVP DAILY [facility] Last Admin: 08/21/18 09:13 Dose: 20 mg Metronidazole (Flagyl) 500 mg in 100 mls @ 100 mls/hr IVPB Q8H [facility]; Protocol Last Admin: 08/21/18 18:09 Dose: 100 mls/hr Sodium Chloride (Sodium Chloride 0.9%) 1,000 mls @ 100 mls/hr IV .Q10H [facility] Last Admin: 08/21/18 16:00 Dose: 100 mls/hr Insulin Human Regular (Novolin R) 0 unit SC ACHS [facility]; Protocol Last Admin: 08/21/18 21:35 Dose: Not Given Ipratropium [place] (Atrovent) 0.5 mg IH RQ6 [facility] Last Admin: 08/21/18 21:03 Dose: Not Given Multivitamins/Vitamin C (Multi-Delyn Liquid) 5 ml PO DAILY [facility] Last Admin: 08/21/18 09:13 Dose: 5 ml - Labs Labs: 08/21/18 05:59 08/21/18 05:59 PT 15.6 SECONDS (9.7-12.2) H 08/21/18 05:59 INR 1.4 08/21/18 05:59 APTT 27.0 SECONDS (21-34) 08/21/18 05:59
--- NOTE | 2018-08-21 22:50 | CP.PCM.PN ---
Subjective - Date & Time of Evaluation Date of Evaluation: 08/21/18 Time of Evaluation: 09:00 - Subjective Subjective: events noted afeb nad Objective - Vital Signs/Intake and Output Vital Signs (last 24 hours): Temp Pulse Resp BP Pulse Ox 97.5 F L 99 H 20 146/71 98 08/21/18 15:53 08/21/18 15:53 08/21/18 15:53 08/21/18 15:53 08/21/18 15:53 Intake and Output: 08/21/18 08/22/18 18:59 06:59 Intake Total 700 1300 Output Total 1120 702 Balance -420 598 - Medications Medications: Current Medications Albuterol/Ipratropium (Duoneb 3 Mg/0.5 Mg (3 Ml) Ud) 3 ml INH RQ4 PRN PRN Reason: Wheezing Arformoterol Tartrate (Brovana) 15 mcg INH RQ12@1000,2200 [facility] Last Admin: 08/21/18 21:03 Dose: Not Given Budesonide (Pulmicort Respules) 0.25 mg INH RQ12 [facility] Last Admin: 08/21/18 21:03 Dose: Not Given Famotidine (Pepcid) 20 mg IVP DAILY [facility] Last Admin: 08/21/18 09:13 Dose: 20 mg Metronidazole (Flagyl) 500 mg in 100 mls @ 100 mls/hr IVPB Q8H [facility]; Protocol Last Admin: 08/21/18 18:09 Dose: 100 mls/hr Sodium Chloride (Sodium Chloride 0.9%) 1,000 mls @ 100 mls/hr IV .Q10H [facility] Last Admin: 08/21/18 16:00 Dose: 100 mls/hr Insulin Human Regular (Novolin R) 0 unit SC ACHS [facility]; Protocol Last Admin: 08/21/18 21:35 Dose: Not Given Ipratropium [place] (Atrovent) 0.5 mg IH RQ6 [facility] Last Admin: 08/21/18 21:03 Dose: Not Given Multivitamins/Vitamin C (Multi-Delyn Liquid) 5 ml PO DAILY [facility] Last Admin: 08/21/18 09:13 Dose: 5 ml - Labs Labs: 08/21/18 05:59 08/21/18 05:59 PT 15.6 SECONDS (9.7-12.2) H 08/21/18 05:59 INR 1.4 08/21/18 05:59 APTT 27.0 SECONDS (21-34) 08/21/18 05:59 - Constitutional Appears: Non-toxic, Chronically Ill - Head Exam Head Exam: NORMOCEPHALIC - Eye Exam Eye Exam: absent: Scleral icterus - ENT Exam ENT Exam: Mucous Membranes Dry - Neck Exam Neck Exam: absent: Lymphadenopathy - Respiratory Exam Respiratory Exam: Decreased Breath Sounds - Cardiovascular Exam Cardiovascular Exam: REGULAR RHYTHM - GI/Abdominal Exam GI & Abdominal Exam: Distended, Soft - Rectal Exam Rectal Exam: Deferred - Exam Exam: NORMAL INSPECTION - Back Exam Back Exam: absent: CVA tenderness (L), CVA tenderness (R) - Neurological Exam Neurological Exam: Alert, Awake Assessment and Plan (1) Alcohol abuse with intoxication Status: Acute (2) Cirrhosis Status: Acute (3) Hydrocele of testis Status: Acute (4) Pneumonia Status: Acute (5) Sepsis Status: Acute (6) Subdural hemorrhage Status: Acute (7) Alcoholic cirrhosis Status: Chronic - Assessment and Plan (Free Text) Assessment: remains weak prognosis guarded
[2018-08-22] MEDS: Ipratropium 0.02% Inhal Soln (0.5 mg/2.5 ml) UD IH SCH ×4 (02:53→20:37)
[2018-08-22] MEDS: metroNIDAZOLE IV 500 mg/100 ml 500 MG/100 ML BAG IVPB SCH ×3 (02:54→18:29)
[2018-08-22] MEDS: Sodium Chloride 0.9% 1,000 ML IV SCH ×2 (02:56→18:16)
--- NOTE | 2018-08-22 04:34 | PN ---
DATE: 08/21/2018 SUBJECTIVE: The patient is less short of breath, less cough, less wheezing. He is more alert. He has a [place] in place. No nausea or vomiting. PHYSICAL EXAMINATION: VITAL SIGNS: Blood pressure is 146/71, pulse 99, respiratory rate 20, temperature 97.5. LUNGS: Bilateral fewer crackles. No rhonchi. Air entry is fair. CARDIOVASCULAR SYSTEM: S1 and S2, regular. No heaves. No thrill. ABDOMEN: Soft and nontender. Bowel sounds are positive. ASSESSMENT: 1. Pneumonia, improving. 2. Fluid overload with congestive heart failure, improving. 3. Alcohol intoxication and alcohol withdrawal. 4. Anemia, most likely due to iron deficiency. PLAN: Continue current medications. Monitor the patient. IV fluids. Iron profile. Chino Cheung MD
[2018-08-22 06:51] LABS: CALCIUM 7.1 mg/dl (8.6-10.4)
[2018-08-22] MEDS: (Novolin R) Insulin Human Regular 100 units/ml vial SC SCH ×3 (07:30→17:09)
[2018-08-22] MEDS ORDERED: Potassium Chloride 20 mEq ER Tab PO ONE (10:00)
--- NOTE | 2018-08-22 13:17 | PCM.FALL ---
Post Fall Progress Note - Post Fall Fall Date: 08/22/18 Fall Time: 12:55 - Post Fall Exam Vital Sign: Temp Pulse Resp BP Pulse Ox 99.1 F 99 H 20 136/65 96 08/22/18 07:15 08/22/18 07:15 08/22/18 07:15 08/22/18 07:15 08/22/18 07:15 Skull Exam: Negative for: Scalp wound, Scalp hematoma, Scalp depression, Ridge in skull Eye Exam: Positive for: Pupils equal, Pupils reactive Nose Exam: Negative for: Discharge Skin Exam: Positive for: Bruising (old bruise to R arm, no new bruises noted). Negative for: Colour, Lacerations, Grazes Mouth Exam: Negative for: Tongue bitten Neck Exam: Negative for: Tenderness Spinal Exam: Negative for: Tenderness Chest Exam: Negative for: Difficulty breathing, Tenderness in collar bones, Tenderness in ribs Abdomen Exam: Negative for: Tenderness Pelvic Exam: Negative for: Tenderness Impression/Plan: House doctor note. Code star called at 12:55. As per covering nurse, patient was found on floor by his roommate who happened to walk out of the bathroom at that time. Patient states he was walking and lost his balance and lowered himself to the ground onto his buttock. Patient denies head trauma, dizziness, loss of consciousness, pain to chest, abdomen, extremities, nausea, vomiting, shaking, tongue biting, loss of bowel or bladder. Patient has no complaints at this time. morning labs reviewed. No further work up ordered.
--- NOTE | 2018-08-22 14:14 | RAD ---
HISTORY: pna COMPARISON: Chest x-ray performed 08/19/18 TECHNIQUE: Chest PA and lateral, 2 views FINDINGS: Interval removal of nasogastric tube. LUNGS: Flattening of the hemidiaphragm may be related to hyperinflation from COPD. Moderate interstitial prominence may reflect infection or edema. Streaky atelectasis/infiltrate within the right upper lobe. Curvilinear opacity in the right upper lobe, possibly related to scarring. Biapical pleural thickening. Please note that chest x-ray has limited sensitivity for the detection of pulmonary masses. PLEURA: No significant pleural effusion identified. No definite pneumothorax . CARDIOVASCULAR: Cardiomegaly. OSSEOUS STRUCTURES: Osseous demineralization. Acromioclavicular arthropathy. Degenerative changes. VISUALIZED UPPER ABDOMEN: Unremarkable. OTHER FINDINGS: None. IMPRESSION: Flattening of the hemidiaphragm may be related to hyperinflation from COPD. Moderate interstitial prominence may reflect infection or edema. Streaky atelectasis/infiltrate within the right upper lobe. Curvilinear opacity in the right upper lobe, possibly related to scarring. Biapical pleural thickening. Cardiomegaly.
[2018-08-22] MEDS: Budesonide 0.25 mg/2 ml Inhal Susp UD INH SCH ×2 (14:42→20:37)
[2018-08-22] MEDS: Arformoterol 15 mcg/2 ml Inh Sol INH SCH ×2 (14:42→21:05)
--- NOTE | 2018-08-22 19:45 | CP.PCM.PN ---
Subjective - Date & Time of Evaluation Date of Evaluation: 08/22/18 Time of Evaluation: 07:00 - Subjective Subjective: dict Objective - Vital Signs/Intake and Output Vital Signs (last 24 hours): Temp Pulse Resp BP Pulse Ox 97.7 F 91 H 20 150/74 97 08/22/18 16:00 08/22/18 16:00 08/22/18 16:00 08/22/18 16:00 08/22/18 16:00 Intake and Output: 08/22/18 08/23/18 18:59 06:59 Intake Total 780 Output Total 400 Balance 380 - Medications Medications: Current Medications Albuterol/Ipratropium (Duoneb 3 Mg/0.5 Mg (3 Ml) Ud) 3 ml INH RQ4 PRN PRN Reason: Wheezing Last Admin: 08/22/18 03:31 Dose: 3 ml Arformoterol Tartrate (Brovana) 15 mcg INH RQ12@1000,2200 [facility] Last Admin: 08/22/18 14:42 Dose: Not Given Budesonide (Pulmicort Respules) 0.25 mg INH RQ12 [facility] Last Admin: 08/22/18 14:42 Dose: Not Given Famotidine (Pepcid) 20 mg IVP DAILY [facility] Last Admin: 08/22/18 10:26 Dose: 20 mg Metronidazole (Flagyl) 500 mg in 100 mls @ 100 mls/hr IVPB Q8H [facility]; Protocol Last Admin: 08/22/18 18:29 Dose: 100 mls/hr Sodium Chloride (Sodium Chloride 0.9%) 1,000 mls @ 100 mls/hr IV .Q10H [facility] Last Admin: 08/22/18 18:16 Dose: Not Given Insulin Human Regular (Novolin R) 0 unit SC ACHS [facility]; Protocol Last Admin: 08/22/18 17:09 Dose: Not Given Ipratropium [place] (Atrovent) 0.5 mg IH RQ6 [facility] Last Admin: 08/22/18 14:42 Dose: Not Given Multivitamins/Vitamin C (Multi-Delyn Liquid) 5 ml PO DAILY [facility] Last Admin: 08/21/18 09:13 Dose: 5 ml - Labs Labs: 08/21/18 05:59 08/22/18 06:32 PT 15.6 SECONDS (9.7-12.2) H 08/21/18 05:59 INR 1.4 08/21/18 05:59 APTT 27.0 SECONDS (21-34) 08/21/18 05:59
--- NOTE | 2018-08-22 21:44 | CP.PCM.PN ---
Subjective - Date & Time of Evaluation Date of Evaluation: 08/22/18 Time of Evaluation: 08:00 - Subjective Subjective: awake alert afebrile in NAD Objective - Vital Signs/Intake and Output Vital Signs (last 24 hours): Temp Pulse Resp BP Pulse Ox 97.7 F 91 H 20 150/74 97 08/22/18 16:00 08/22/18 16:00 08/22/18 16:00 08/22/18 16:00 08/22/18 16:00 Intake and Output: 08/22/18 08/23/18 18:59 06:59 Intake Total 780 Output Total 400 Balance 380 - Medications Medications: Current Medications Albuterol/Ipratropium (Duoneb 3 Mg/0.5 Mg (3 Ml) Ud) 3 ml INH RQ4 PRN PRN Reason: Wheezing Last Admin: 08/22/18 03:31 Dose: 3 ml Arformoterol Tartrate (Brovana) 15 mcg INH RQ12@1000,2200 [facility] Last Admin: 08/22/18 14:42 Dose: Not Given Budesonide (Pulmicort Respules) 0.25 mg INH RQ12 [facility] Last Admin: 08/22/18 20:37 Dose: Not Given Famotidine (Pepcid) 20 mg IVP DAILY [facility] Last Admin: 08/22/18 10:26 Dose: 20 mg Metronidazole (Flagyl) 500 mg in 100 mls @ 100 mls/hr IVPB Q8H [facility]; Protocol Last Admin: 08/22/18 18:29 Dose: 100 mls/hr Sodium Chloride (Sodium Chloride 0.9%) 1,000 mls @ 100 mls/hr IV .Q10H [facility] Last Admin: 08/22/18 18:16 Dose: Not Given Insulin Human Regular (Novolin R) 0 unit SC ACHS [facility]; Protocol Last Admin: 08/22/18 17:09 Dose: Not Given Ipratropium [place] (Atrovent) 0.5 mg IH RQ6 [facility] Last Admin: 08/22/18 20:37 Dose: Not Given Lorazepam (Ativan) 1 mg IVP Q4H PRN PRN Reason: Agitation Multivitamins/Vitamin C (Multi-Delyn Liquid) 5 ml PO DAILY [facility] Last Admin: 08/21/18 09:13 Dose: 5 ml - Labs Labs: 08/21/18 05:59 08/22/18 06:32 PT 15.6 SECONDS (9.7-12.2) H 08/21/18 05:59 INR 1.4 08/21/18 05:59 APTT 27.0 SECONDS (21-34) 08/21/18 05:59 - Constitutional Appears: Non-toxic, No Acute Distress, Chronically Ill - Head Exam Head Exam: ATRAUMATIC, NORMAL INSPECTION, NORMOCEPHALIC - Eye Exam Eye Exam: EOMI, Normal appearance, PERRL Pupil Exam: NORMAL ACCOMODATION, PERRL - ENT Exam ENT Exam: Mucous Membranes Moist, Normal Exam - Neck Exam Neck Exam: Full ROM, Normal Inspection. absent: Lymphadenopathy - Respiratory Exam Respiratory Exam: Clear to Ausculation Bilateral, NORMAL BREATHING PATTERN - Cardiovascular Exam Cardiovascular Exam: REGULAR RHYTHM, +S1, +S2. absent: Murmur - GI/Abdominal Exam GI & Abdominal Exam: Soft, Normal Bowel Sounds. absent: Tenderness - Rectal Exam Rectal Exam: Deferred - Exam Exam: NORMAL INSPECTION - Extremities Exam Extremities Exam: Full ROM, Normal Capillary Refill, Normal Inspection. absent: Joint Swelling, Pedal Edema - Back Exam Back Exam: NORMAL INSPECTION - Neurological Exam Neurological Exam: Alert, Awake, CN II-XII Intact, Normal Gait, Oriented x3 - Psychiatric Exam Psychiatric exam: Normal Affect, Normal Mood - Skin Skin Exam: Dry, Intact, Normal Color, Warm Assessment and Plan (1) Alcohol abuse with intoxication Status: Acute (2) Cirrhosis Status: Acute (3) Hydrocele of testis Status: Acute (4) Pneumonia Status: Acute (5) Sepsis Status: Acute (6) Subdural hemorrhage Status: Acute (7) Alcoholic cirrhosis Status: Chronic - Assessment and Plan (Free Text) Assessment: improving clinically cont supportive care possible LAITH lay
--- NOTE | 2018-08-22 21:45 | CP.PCM.PN ---
Subjective - Date & Time of Evaluation Date of Evaluation: 08/21/18 Time of Evaluation: 18:30 - Subjective Subjective: Patient seen and evaluated No new cardiac events noted Objective - Additional Findings Additional findings: - Constitutional Appears: Chronically Ill, intubated and sedated with precedex, not acutely distressed/agitated - Head Exam Head Exam: ATRAUMATIC, NORMOCEPHALIC - Eye Exam Eye Exam: Normal appearance. absent: Conjunctival injection, Scleral icterus Pupil Exam: absent: Irregular, Unequal - ENT Exam ENT Exam: Mucous Membranes Moist ETT in place, secured at lips by securement device NGT in place, secured with tegaderm - Neck Exam Neck exam: Negative for: Thyromegaly - Respiratory Exam intubated and ventilated, on 30% FiO2, overbreathing the ventilator, no accessory muscle or abdominal breathing appreciated - Cardiovascular Exam Cardiovascular Exam: RRR, +S1, +S2. absent: Bradycardia, Tachycardia, Diastolic murmur, Irregular Rhythm, JVD, +S4 - GI/Abdominal Exam GI & Abdominal Exam: Diminished Bowel Sounds. absent: Distended, Firm, Hyperact lisa Bowel Sounds, Hypoactive Bowel Sounds, Rigid - Extremities Exam Extremities exam: Positive for: pedal edema (Trace in ankles), pedal pulses present, wearing bilateral hand mitts - Neurological Exam Sedated on precedex. Arousable with sounds. - Psychiatric Exam sedated on precedex, unable to assess - Skin Skin Exam: Dry, Intact, Normal Color, Warm Assessment and Plan - Assessment and Plan (Free Text) Assessment: This is a 57 yo M with PMH of ETOH abuse, Liver Cirrhosis, Chronic Subdural Flynn lee (Feb), urethral strictures, anemia, thrombocytopenia, and HTN who was brought in by EMS after being found in the field intoxicating, [place] defecation [place]. Later became hypotensive and further altered, requiring intubation and ICU placement for close monitoring and care. Cardiology Consulted for evaluation and treatment of ACS/CHF. Plan: HFpEF (EtoH Cardiomyopathy), ACS SVT Resolved. ECHO (08/11/18): Mildly dilated LV, Grade I diastolic Dysfunction, elevated atrial pressure. Mild - Moderate bi-atrial anlargement, Migral annular calcifications. RVSP=51mmHG, compatible w/ moderate pulm. htn. Labs: BNP(Adm) - 76362 Mgmt: Continue Medical Mgmt. Heparin 5000 Q12 Objective - Vital Signs/Intake and Output Vital Signs (last 24 hours): Temp Pulse Resp BP Pulse Ox 97.7 F 91 H 20 150/74 97 08/22/18 16:00 08/22/18 16:00 08/22/18 16:00 08/22/18 16:00 08/22/18 16:00 Intake and Output: 08/22/18 08/23/18 18:59 06:59 Intake Total 780 Output Total 400 Balance 380 - Medications Medications: Current Medications Albuterol/Ipratropium (Duoneb 3 Mg/0.5 Mg (3 Ml) Ud) 3 ml INH RQ4 PRN PRN Reason: Wheezing Last Admin: 08/22/18 03:31 Dose: 3 ml Arformoterol Tartrate (Brovana) 15 mcg INH RQ12@1000,2200 [facility] Last Admin: 08/22/18 14:42 Dose: Not Given Budesonide (Pulmicort Respules) 0.25 mg INH RQ12 [facility] Last Admin: 08/22/18 20:37 Dose: Not Given Famotidine (Pepcid) 20 mg IVP DAILY [facility] Last Admin: 08/22/18 10:26 Dose: 20 mg Metronidazole (Flagyl) 500 mg in 100 mls @ 100 mls/hr IVPB Q8H [facility]; Protocol Last Admin: 08/22/18 18:29 Dose: 100 mls/hr Sodium Chloride (Sodium Chloride 0.9%) 1,000 mls @ 100 mls/hr IV .Q10H [facility] Last Admin: 08/22/18 18:16 Dose: Not Given Insulin Human Regular (Novolin R) 0 unit SC ACHS [facility]; Protocol Last Admin: 08/22/18 17:09 Dose: Not Given Ipratropium [place] (Atrovent) 0.5 mg IH RQ6 [facility] Last Admin: 08/22/18 20:37 Dose: Not Given Lorazepam (Ativan) 1 mg IVP Q4H PRN PRN Reason: Agitation Multivitamins/Vitamin C (Multi-Delyn Liquid) 5 ml PO DAILY [facility] Last Admin: 08/21/18 09:13 Dose: 5 ml - Labs Labs: 08/21/18 05:59 08/22/18 06:32 PT 15.6 SECONDS (9.7-12.2) H 08/21/18 05:59 INR 1.4 08/21/18 05:59 APTT 27.0 SECONDS (21-34) 08/21/18 05:59
[2018-08-23] MEDS: Ipratropium 0.02% Inhal Soln (0.5 mg/2.5 ml) UD IH SCH ×4 (01:03→21:03)
[2018-08-23] MEDS: metroNIDAZOLE IV 500 mg/100 ml 500 MG/100 ML BAG IVPB SCH ×3 (02:30→17:38)
[2018-08-23] MEDS: Budesonide 0.25 mg/2 ml Inhal Susp UD INH SCH ×2 (07:30→21:02)
[2018-08-23] MEDS: (Novolin R) Insulin Human Regular 100 units/ml vial SC SCH ×4 (08:20→23:00)
[2018-08-23] MEDS: Arformoterol 15 mcg/2 ml Inh Sol INH SCH ×2 (09:28→21:24)
[2018-08-23] MEDS: Multiple Vitamins Oral Solution PO SCH (09:45)
[2018-08-23] MEDS: Sodium Chloride 0.9% 1,000 ML IV SCH ×3 (09:46→21:35)
[2018-08-23 11:47] LABS: BASO % 0.3 % (0.0-2.0); EOS # 0.2 K/uL (0.0-0.7); EOS % 1.9 % (0.0-4.0); HEMOGLOBIN 7.9 g/dL (12.0-18.0); LYMPH # 1.4 K/uL (1.0-4.3); LYMPH % 17.5 % (20.0-40.0); MEAN CELL VOLUME 78.8 fL (80.0-94.0); MEAN CORPUSCULAR HEMOGLOBIN 25.8 pg (27.0-31.0); MEAN CORPUSCULAR HGB CONC 32.7 g/dL (33.0-37.0); MEAN PLATELET VOLUME 10.3 fL (7.2-11.7); MONO # 0.9 K/uL (0.0-0.8); NEUT # 5.4 K/uL (1.8-7.0); NEUT % 68.3 % (50.0-75.0); NRBC % 0.1 % (0.0-2.0); RBC 3.05 Mil/uL (4.40-5.90); RED CELL DISTRIBUTION WIDTH 21.1 % (11.5-14.5); WHITE BLOOD COUNT 7.9 K/uL (4.8-10.8)
[2018-08-23 12:08] LABS: ALB/GLOB RATIO 0.7 (1.0-2.1); ALBUMIN 2.5 g/dL (3.5-5.0); CALCIUM 7.9 mg/dl (8.6-10.4)
[2018-08-23] MEDS ORDERED: Potassium Chloride 20 mEq/15 ml LIQ UD PO ONE (12:15)
[2018-08-23] MEDS: Potassium Chloride 20 mEq ER Tab PO SCH (14:41)
[2018-08-23 15:31] LABS: URIC ACID 6.7 mg/dL (3.5-8.5)
--- NOTE | 2018-08-23 17:13 | CP.PCM.PN ---
Subjective - Date & Time of Evaluation Date of Evaluation: 08/23/18 Time of Evaluation: 07:20 - Subjective Subjective: dict Objective - Vital Signs/Intake and Output Vital Signs (last 24 hours): Temp Pulse Resp BP Pulse Ox 98.1 F 90 20 145/75 98 08/23/18 15:43 08/23/18 15:43 08/23/18 15:43 08/23/18 15:43 08/23/18 15:43 Intake and Output: 08/23/18 08/23/18 06:59 18:59 Intake Total 2380 Balance 2380 - Medications Medications: Current Medications Albuterol/Ipratropium (Duoneb 3 Mg/0.5 Mg (3 Ml) Ud) 3 ml INH RQ4 PRN PRN Reason: Wheezing Last Admin: 08/22/18 03:31 Dose: 3 ml Arformoterol Tartrate (Brovana) 15 mcg INH RQ12@1000,2200 [facility] Last Admin: 08/23/18 09:28 Dose: 15 mcg Budesonide (Pulmicort Respules) 0.25 mg INH RQ12 [facility] Last Admin: 08/23/18 07:30 Dose: 0.25 mg Famotidine (Pepcid) 20 mg IVP DAILY [facility] Last Admin: 08/23/18 09:45 Dose: 20 mg Metronidazole (Flagyl) 500 mg in 100 mls @ 100 mls/hr IVPB Q8H [facility]; Protocol Last Admin: 08/23/18 09:46 Dose: 100 mls/hr Sodium Chloride (Sodium Chloride 0.9%) 1,000 mls @ 100 mls/hr IV .Q10H [facility] Last Admin: 08/23/18 12:33 Dose: Not Given Insulin Human Regular (Novolin R) 0 unit SC ACHS [facility]; Protocol Last Admin: 08/23/18 12:02 Dose: Not Given Ipratropium [place] (Atrovent) 0.5 mg IH RQ6 [facility] Last Admin: 08/23/18 13:40 Dose: 0.5 mg Lorazepam (Ativan) 1 mg IVP Q4H PRN PRN Reason: Agitation Last Admin: 08/23/18 14:51 Dose: 1 mg Multivitamins/Vitamin C (Multi-Delyn Liquid) 5 ml PO DAILY [facility] Last Admin: 08/23/18 09:45 Dose: 5 ml Potassium Chloride (K-Dur 20 Meq Er Tab) 20 meq PO DAILY [facility] Stop: 08/26/18 14:16 Last Admin: 08/23/18 14:41 Dose: Not Given - Labs Labs: 08/23/18 11:28 08/23/18 11:28 PT 15.6 SECONDS (9.7-12.2) H 08/21/18 05:59 INR 1.4 08/21/18 05:59 APTT 27.0 SECONDS (21-34) 08/21/18 05:59
--- NOTE | 2018-08-23 17:46 | CP.PCM.PN ---
Subjective - Date & Time of Evaluation Date of Evaluation: 08/23/18 Time of Evaluation: 14:30 - Subjective Subjective: Patient moved to monitored room due to agitation; otherwise reports diarrhea improving, tolerating diet; Objective - Vital Signs/Intake and Output Vital Signs (last 24 hours): Temp Pulse Resp BP Pulse Ox 98.1 F 90 20 145/75 98 08/23/18 15:43 08/23/18 15:43 08/23/18 15:43 08/23/18 15:43 08/23/18 15:43 Intake and Output: 08/23/18 08/23/18 06:59 18:59 Intake Total 2380 Balance 2380 - Medications Medications: Current Medications Albuterol/Ipratropium (Duoneb 3 Mg/0.5 Mg (3 Ml) Ud) 3 ml INH RQ4 PRN PRN Reason: Wheezing Last Admin: 08/22/18 03:31 Dose: 3 ml Arformoterol Tartrate (Brovana) 15 mcg INH RQ12@1000,2200 [facility] Last Admin: 08/23/18 09:28 Dose: 15 mcg Budesonide (Pulmicort Respules) 0.25 mg INH RQ12 [facility] Last Admin: 08/23/18 07:30 Dose: 0.25 mg Famotidine (Pepcid) 20 mg IVP DAILY [facility] Last Admin: 08/23/18 09:45 Dose: 20 mg Metronidazole (Flagyl) 500 mg in 100 mls @ 100 mls/hr IVPB Q8H [facility]; Protocol Last Admin: 08/23/18 17:38 Dose: 100 mls/hr Sodium Chloride (Sodium Chloride 0.9%) 1,000 mls @ 100 mls/hr IV .Q10H [facility] Last Admin: 08/23/18 12:33 Dose: Not Given Insulin Human Regular (Novolin R) 0 unit SC ACHS [facility]; Protocol Last Admin: 08/23/18 12:02 Dose: Not Given Ipratropium [place] (Atrovent) 0.5 mg IH RQ6 [facility] Last Admin: 08/23/18 13:40 Dose: 0.5 mg Lorazepam (Ativan) 1 mg IVP Q4H PRN PRN Reason: Agitation Last Admin: 08/23/18 14:51 Dose: 1 mg Multivitamins/Vitamin C (Multi-Delyn Liquid) 5 ml PO DAILY [facility] Last Admin: 08/23/18 09:45 Dose: 5 ml Potassium Chloride (K-Dur 20 Meq Er Tab) 20 meq PO DAILY [facility] Stop: 08/26/18 14:16 Last Admin: 08/23/18 14:41 Dose: Not Given - Labs Labs: 08/23/18 11:28 08/23/18 11:28 PT 15.6 SECONDS (9.7-12.2) H 08/21/18 05:59 INR 1.4 08/21/18 05:59 APTT 27.0 SECONDS (21-34) 08/21/18 05:59 - Constitutional Appears: Non-toxic, No Acute Distress - Eye Exam Eye Exam: Normal appearance. absent: Scleral icterus - Respiratory Exam Respiratory Exam: Clear to Ausculation Bilateral. absent: Respiratory Distress - Cardiovascular Exam Cardiovascular Exam: RRR, +S1, +S2 - GI/Abdominal Exam GI & Abdominal Exam: Soft. absent: Tenderness - Extremities Exam Additional comments: minimal leg edema (improved); - Neurological Exam Neurological Exam: Alert, Awake - Psychiatric Exam Psychiatric exam: Normal Mood. absent: Agitated - Skin Skin Exam: Warm. absent: Cyanosis Assessment and Plan (1) Acute renal failure Assessment & Plan: ATN, polyuric phase appears to be improved (nursing estimating about 600 cc UO for most of day shift); renal function still not back to baseline; will continue IVF w/ NS at 100 cc/hr to correct any pre-renal component in the setting of GI losses; -continue to supplement KCl for persistent hypokalemia; -avoid nephrotoxic agent; Status: Acute (2) Hypernatremia Status: Resolved (3) Pleural effusion Status: Acute (4) Sepsis Status: Acute
--- NOTE | 2018-08-23 21:14 | CP.PCM.PN ---
Subjective - Date & Time of Evaluation Date of Evaluation: 08/23/18 Time of Evaluation: 08:00 - Subjective Subjective: afebrile IN NAD denies chest pain cough or SOB Objective - Vital Signs/Intake and Output Vital Signs (last 24 hours): Temp Pulse Resp BP Pulse Ox 98.1 F 90 20 145/75 98 08/23/18 15:43 08/23/18 15:43 08/23/18 15:43 08/23/18 15:43 08/23/18 15:43 Intake and Output: 08/23/18 08/24/18 18:59 06:59 Intake Total 2380 Balance 2380 - Medications Medications: Current Medications Albuterol/Ipratropium (Duoneb 3 Mg/0.5 Mg (3 Ml) Ud) 3 ml INH RQ4 PRN PRN Reason: Wheezing Last Admin: 08/22/18 03:31 Dose: 3 ml Arformoterol Tartrate (Brovana) 15 mcg INH RQ12@1000,2200 [facility] Last Admin: 08/23/18 09:28 Dose: 15 mcg Budesonide (Pulmicort Respules) 0.25 mg INH RQ12 [facility] Last Admin: 08/23/18 21:02 Dose: 0.25 mg Famotidine (Pepcid) 20 mg IVP DAILY [facility] Last Admin: 08/23/18 09:45 Dose: 20 mg Metronidazole (Flagyl) 500 mg in 100 mls @ 100 mls/hr IVPB Q8H [facility]; Protocol Last Admin: 08/23/18 17:38 Dose: 100 mls/hr Sodium Chloride (Sodium Chloride 0.9%) 1,000 mls @ 100 mls/hr IV .Q10H [facility] Last Admin: 08/23/18 12:33 Dose: Not Given Insulin Human Regular (Novolin R) 0 unit SC ACHS [facility]; Protocol Last Admin: 08/23/18 12:02 Dose: Not Given Ipratropium [place] (Atrovent) 0.5 mg IH RQ6 [facility] Last Admin: 08/23/18 21:03 Dose: 0.5 mg Lorazepam (Ativan) 1 mg IVP Q4H PRN PRN Reason: Agitation Last Admin: 08/23/18 14:51 Dose: 1 mg Multivitamins/Vitamin C (Multi-Delyn Liquid) 5 ml PO DAILY [facility] Last Admin: 08/23/18 09:45 Dose: 5 ml Potassium Chloride (K-Dur 20 Meq Er Tab) 20 meq PO DAILY [facility] Stop: 08/26/18 14:16 Last Admin: 08/23/18 14:41 Dose: Not Given - Labs Labs: 08/23/18 11:28 08/23/18 11:28 PT 15.6 SECONDS (9.7-12.2) H 08/21/18 05:59 INR 1.4 08/21/18 05:59 APTT 27.0 SECONDS (21-34) 08/21/18 05:59 - Constitutional Appears: Non-toxic, No Acute Distress, Chronically Ill - Head Exam Head Exam: ATRAUMATIC, NORMAL INSPECTION, NORMOCEPHALIC - Eye Exam Eye Exam: EOMI, Normal appearance, PERRL Pupil Exam: NORMAL ACCOMODATION, PERRL - ENT Exam ENT Exam: Mucous Membranes Moist, Normal Exam - Neck Exam Neck Exam: Full ROM, Normal Inspection. absent: Lymphadenopathy - Respiratory Exam Respiratory Exam: Clear to Ausculation Bilateral, NORMAL BREATHING PATTERN - Cardiovascular Exam Cardiovascular Exam: REGULAR RHYTHM, +S1, +S2. absent: Murmur - GI/Abdominal Exam GI & Abdominal Exam: Soft, Normal Bowel Sounds. absent: Tenderness - Rectal Exam Rectal Exam: Deferred - Exam Exam: NORMAL INSPECTION - Extremities Exam Extremities Exam: Full ROM, Normal Capillary Refill, Pedal Edema. absent: Joint Swelling, Normal Inspection - Back Exam Back Exam: NORMAL INSPECTION - Neurological Exam Neurological Exam: Alert, Awake, CN II-XII Intact, Normal Gait, Oriented x3 - Psychiatric Exam Psychiatric exam: Normal Affect, Normal Mood - Skin Skin Exam: Dry, Intact, Normal Color, Warm Assessment and Plan (1) Alcohol abuse with intoxication Status: Acute (2) Cirrhosis Status: Acute (3) Hydrocele of testis Status: Acute (4) Pneumonia Status: Acute (5) Sepsis Status: Acute (6) Subdural hemorrhage Status: Acute (7) Alcoholic cirrhosis Status: Chronic - Assessment and Plan (Free Text) Assessment: improving slowly rx renewed
--- NOTE | 2018-08-24 00:08 | PN ---
DATE: 08/23/2018 SUBJECTIVE: The patient is calm. He is less tremulous, less shaken. He is afebrile. No shortness of breath. No chest pain. His [place] is out. PHYSICAL EXAMINATION: VITAL SIGNS: Blood pressure 144/75, pulse 90, respiratory rate 20, temperature 98.1. LUNGS: Bilateral scattered rales. CARDIOVASCULAR SYSTEM: S1, S2. Regular. ABDOMEN: Soft, nontender. Bowel sounds are positive. ASSESSMENT: 1. Anemia, iron deficiency. 2. Septicemia, resolved. 3. Pneumonia. 4. Alcohol withdrawal, delirium tremens. PLAN: Continue DT precaution, iron. Monitor the patient. Chino Cheung MD
[2018-08-24] MEDS: Ipratropium 0.02% Inhal Soln (0.5 mg/2.5 ml) UD IH SCH ×3 (01:02→13:16)
[2018-08-24] MEDS: Sodium Chloride 0.9% 1,000 ML IV SCH ×2 (02:10→09:13)
[2018-08-24] MEDS: metroNIDAZOLE IV 500 mg/100 ml 500 MG/100 ML BAG IVPB SCH ×3 (02:25→18:08)
--- NOTE | 2018-08-24 06:11 | CP.PCM.PN ---
Subjective - Date & Time of Evaluation Date of Evaluation: 08/24/18 Time of Evaluation: 07:00 - Subjective Subjective: idct Objective - Vital Signs/Intake and Output Vital Signs (last 24 hours): Temp Pulse Resp BP Pulse Ox 98.3 F 94 H 20 134/74 97 08/23/18 23:59 08/23/18 23:59 08/23/18 23:59 08/23/18 23:59 08/23/18 23:59 Intake and Output: 08/23/18 08/24/18 18:59 06:59 Intake Total 2380 950 Balance 2380 950 - Medications Medications: Current Medications Albuterol/Ipratropium (Duoneb 3 Mg/0.5 Mg (3 Ml) Ud) 3 ml INH RQ4 PRN PRN Reason: Wheezing Last Admin: 08/22/18 03:31 Dose: 3 ml Arformoterol Tartrate (Brovana) 15 mcg INH RQ12@1000,2200 [facility] Last Admin: 08/23/18 21:24 Dose: 15 mcg Budesonide (Pulmicort Respules) 0.25 mg INH RQ12 [facility] Last Admin: 08/23/18 21:02 Dose: 0.25 mg Famotidine (Pepcid) 20 mg PO BID [facility] Last Admin: 08/23/18 21:49 Dose: 20 mg Ferric Sodium Gluconate Complex (Ferrlecit) 125 mg IVPB DAILY [facility] Stop: 09/01/18 10:01 Metronidazole (Flagyl) 500 mg in 100 mls @ 100 mls/hr IVPB Q8H [facility]; Protocol Last Admin: 08/24/18 02:25 Dose: 100 mls/hr Sodium Chloride (Sodium Chloride 0.9%) 1,000 mls @ 100 mls/hr IV .Q10H [facility] Last Admin: 08/24/18 02:10 Dose: 100 mls/hr Insulin Human Regular (Novolin R) 0 unit SC ACHS [facility]; Protocol Last Admin: 08/23/18 23:00 Dose: Not Given Ipratropium [place] (Atrovent) 0.5 mg IH RQ6 [facility] Last Admin: 08/24/18 01:02 Dose: Not Given Lorazepam (Ativan) 1 mg IVP Q4H PRN PRN Reason: Agitation Last Admin: 08/23/18 21:49 Dose: 1 mg Multivitamins/Vitamin C (Multi-Delyn Liquid) 5 ml PO DAILY [facility] Last Admin: 08/23/18 09:45 Dose: 5 ml Potassium Chloride (K-Dur 20 Meq Er Tab) 20 meq PO DAILY [facility] Stop: 08/26/18 14:16 Last Admin: 08/23/18 14:41 Dose: Not Given - Labs Labs: 08/23/18 11:28 08/23/18 11:28 PT 15.6 SECONDS (9.7-12.2) H 08/21/18 05:59 INR 1.4 08/21/18 05:59 APTT 27.0 SECONDS (21-34) 08/21/18 05:59
[2018-08-24] MEDS ORDERED: Potassium Chloride 20 mEq/15 ml LIQ UD PO STA (06:12)
--- NOTE | 2018-08-24 06:46 | CP.PCM.PN ---
Subjective - Date & Time of Evaluation Date of Evaluation: 08/23/18 Time of Evaluation: 20:20 - Subjective Subjective: Patient seen and evaluated No new cardiac events noted Objective - Additional Findings Additional findings: - Constitutional Appears: Chronically Ill, intubated and sedated with precedex, not acutely distressed/agitated - Head Exam Head Exam: ATRAUMATIC, NORMOCEPHALIC - Eye Exam Eye Exam: Normal appearance. absent: Conjunctival injection, Scleral icterus Pupil Exam: absent: Irregular, Unequal - ENT Exam ENT Exam: Mucous Membranes Moist ETT in place, secured at lips by securement device NGT in place, secured with tegaderm - Neck Exam Neck exam: Negative for: Thyromegaly - Respiratory Exam intubated and ventilated, on 30% FiO2, overbreathing the ventilator, no accessory muscle or abdominal breathing appreciated - Cardiovascular Exam Cardiovascular Exam: RRR, +S1, +S2. absent: Bradycardia, Tachycardia, Diastolic murmur, Irregular Rhythm, JVD, +S4 - GI/Abdominal Exam GI & Abdominal Exam: Diminished Bowel Sounds. absent: Distended, Firm, Hyperact lisa Bowel Sounds, Hypoactive Bowel Sounds, Rigid - Extremities Exam Extremities exam: Positive for: pedal edema (Trace in ankles), pedal pulses present, wearing bilateral hand mitts - Neurological Exam Sedated on precedex. Arousable with sounds. - Psychiatric Exam sedated on precedex, unable to assess - Skin Skin Exam: Dry, Intact, Normal Color, Warm Assessment and Plan - Assessment and Plan (Free Text) Assessment: This is a 57 yo M with PMH of ETOH abuse, Liver Cirrhosis, Chronic Subdural Flynn lee (Feb), urethral strictures, anemia, thrombocytopenia, and HTN who was brought in by EMS after being found in the field intoxicating, [place]cation [place]. Later became hypotensive and further altered, requiring intubation and ICU placement for close monitoring and care. Cardiology Consulted for evaluation and treatment of ACS/CHF. Plan: HFpEF (EtoH Cardiomyopathy), ACS SVT Resolved. ECHO (08/11/18): Mildly dilated LV, Grade I diastolic Dysfunction, elevated atrial pressure. Mild - Moderate bi-atrial anlargement, Migral annular calcifications. RVSP=51mmHG, compatible w/ moderate pulm. htn. Labs: BNP(Adm) - 40191 Mgmt: Continue Medical Mgmt. Heparin 5000 Q12 Objective - Vital Signs/Intake and Output Vital Signs (last 24 hours): Temp Pulse Resp BP Pulse Ox 98.3 F 94 H 20 134/74 97 08/23/18 23:59 08/23/18 23:59 08/23/18 23:59 08/23/18 23:59 08/23/18 23:59 Intake and Output: 08/23/18 08/24/18 18:59 06:59 Intake Total 2380 950 Balance 2380 950 - Medications Medications: Current Medications Albuterol/Ipratropium (Duoneb 3 Mg/0.5 Mg (3 Ml) Ud) 3 ml INH RQ4 PRN PRN Reason: Wheezing Last Admin: 08/22/18 03:31 Dose: 3 ml Arformoterol Tartrate (Brovana) 15 mcg INH RQ12@1000,2200 [facility] Last Admin: 08/23/18 21:24 Dose: 15 mcg Budesonide (Pulmicort Respules) 0.25 mg INH RQ12 [facility] Last Admin: 08/23/18 21:02 Dose: 0.25 mg Famotidine (Pepcid) 20 mg PO BID [facility] Last Admin: 08/23/18 21:49 Dose: 20 mg Ferric Sodium Gluconate Complex (Ferrlecit) 125 mg IVPB DAILY [facility] Stop: 09/01/18 10:01 Metronidazole (Flagyl) 500 mg in 100 mls @ 100 mls/hr IVPB Q8H [facility]; Protocol Last Admin: 08/24/18 02:25 Dose: 100 mls/hr Sodium Chloride (Sodium Chloride 0.9%) 1,000 mls @ 100 mls/hr IV .Q10H [facility] Last Admin: 08/24/18 02:10 Dose: 100 mls/hr Insulin Human Regular (Novolin R) 0 unit SC ACHS [facility]; Protocol Last Admin: 08/23/18 23:00 Dose: Not Given Ipratropium [place] (Atrovent) 0.5 mg IH RQ6 [facility] Last Admin: 08/24/18 01:02 Dose: Not Given Lorazepam (Ativan) 1 mg IVP Q4H PRN PRN Reason: Agitation Last Admin: 08/23/18 21:49 Dose: 1 mg Multivitamins/Vitamin C (Multi-Delyn Liquid) 5 ml PO DAILY [facility] Last Admin: 08/23/18 09:45 Dose: 5 ml Potassium Chloride (K-Dur 20 Meq Er Tab) 20 meq PO DAILY [facility] Stop: 08/26/18 14:16 Last Admin: 08/23/18 14:41 Dose: Not Given - Labs Labs: 08/23/18 11:28 08/23/18 11:28 PT 15.6 SECONDS (9.7-12.2) H 08/21/18 05:59 INR 1.4 08/21/18 05:59 APTT 27.0 SECONDS (21-34) 08/21/18 05:59
[2018-08-24 06:57] LABS: BASO % 0.3 % (0.0-2.0); EOS # 0.1 K/uL (0.0-0.7); EOS % 1.6 % (0.0-4.0); HEMOGLOBIN 7.9 g/dL (12.0-18.0); LYMPH # 1.9 K/uL (1.0-4.3); LYMPH % 22.8 % (20.0-40.0); MEAN CELL VOLUME 78.9 fL (80.0-94.0); MEAN CORPUSCULAR HEMOGLOBIN 25.1 pg (27.0-31.0); MEAN CORPUSCULAR HGB CONC 31.8 g/dL (33.0-37.0); MEAN PLATELET VOLUME 10.3 fL (7.2-11.7); MONO % 12.3 % (0.0-10.0); NEUT # 5.2 K/uL (1.8-7.0); NRBC % 0.1 % (0.0-2.0); RBC 3.16 Mil/uL (4.40-5.90); RED CELL DISTRIBUTION WIDTH 21.5 % (11.5-14.5); WHITE BLOOD COUNT 8.2 K/uL (4.8-10.8)
[2018-08-24 07:36] LABS: CALCIUM 7.5 mg/dl (8.6-10.4)
[2018-08-24] MEDS: Budesonide 0.25 mg/2 ml Inhal Susp UD INH SCH (09:07)
[2018-08-24] MEDS: Arformoterol 15 mcg/2 ml Inh Sol INH SCH (09:07)
[2018-08-24] MEDS: (Novolin R) Insulin Human Regular 100 units/ml vial SC SCH ×3 (09:12→16:30)
[2018-08-24] MEDS: Potassium Chloride 20 mEq ER Tab PO SCH (09:14)
[2018-08-24] MEDS: Multiple Vitamins Oral Solution PO SCH ×2 (09:14→09:23)
[2018-08-24] MEDS ORDERED: Ferric Sodium Gluconat Complex 62.5 mg/5 ml Vial IVPB SCH (10:00)
--- NOTE | 2018-08-24 12:10 | PN ---
DATE: 08/24/2018 SUBJECTIVE: The patient is afebrile. No shortness of breath. He is still . He is more alert. PHYSICAL EXAMINATION: VITAL SIGNS: Blood pressure 134/74, pulse 94, respiratory rate 20, temperature 98.3. LUNGS: Bilateral scattered rales. CARDIOVASCULAR: S1, S2. Regular. ABDOMEN: Soft. ASSESSMENT: 1. Pneumonia. 2. Alcohol withdrawal delirium tremens. 3. Alcoholism. 4. Anemia. PLAN: Continue current medications. Monitor the patient. Chino Cheung MD
[2018-08-24] MEDS ORDERED: guaiFENesin DM 200 mg-20 mg/10 ml UD PO PRN (12:36)
[2018-08-24] MEDS ORDERED: Pneumococcal 23-Valent Vaccine IM ONE (12:39)
[2018-08-24] MEDS ORDERED: Epoetin Alfa 10,000 unit/ml Dialysis SC ONE (15:54)
[2018-08-24 15:59] VITALS: BP 150/82; PULSE 92; TEMP 97.2; O2SAT 100
--- NOTE | 2018-08-24 16:44 | CP.PCM.PN ---
Subjective - Date & Time of Evaluation Date of Evaluation: 08/24/18 Time of Evaluation: 16:44 - Subjective Subjective: alert, awake, denies sob or chest pains, no acute distress. Objective - Vital Signs/Intake and Output Vital Signs (last 24 hours): Temp Pulse Resp BP Pulse Ox 97.2 F L 92 H 20 150/82 100 08/24/18 15:58 08/24/18 15:58 08/24/18 15:58 08/24/18 15:58 08/24/18 15:58 Intake and Output: 08/24/18 08/24/18 06:59 18:59 Intake Total 950 Balance 950 - Medications Medications: Current Medications Arformoterol Tartrate (Brovana) 15 mcg INH RQ12@1000,2200 [facility] Last Admin: 08/24/18 09:07 Dose: 15 mcg Budesonide (Pulmicort Respules) 0.25 mg INH RQ12 [facility] Last Admin: 08/24/18 09:07 Dose: 0.25 mg Famotidine (Pepcid) 20 mg PO BID [facility] Last Admin: 08/24/18 09:14 Dose: 20 mg Ferric Sodium Gluconate Complex (Ferrlecit) 125 mg IVPB DAILY [facility] Stop: 09/01/18 10:01 Last Admin: 08/24/18 09:15 Dose: 125 mg Guaifenesin/Dextromethorphan (Robitussin Dm) 10 ml PO Q4H PRN PRN Reason: Cough and congestion Last Admin: 08/24/18 13:42 Dose: 10 ml Metronidazole (Flagyl) 500 mg in 100 mls @ 100 mls/hr IVPB Q8H [facility]; Protocol Last Admin: 08/24/18 10:56 Dose: 100 mls/hr Insulin Human Regular (Novolin R) 0 unit SC ACHS [facility]; Protocol Last Admin: 08/24/18 12:33 Dose: Not Given Ipratropium [place] (Atrovent) 0.5 mg IH RQ6 [facility] Last Admin: 08/24/18 13:16 Dose: 0.5 mg Lorazepam (Ativan) 1 mg IVP Q4H PRN PRN Reason: Agitation Last Admin: 08/23/18 21:49 Dose: 1 mg Multivitamins/Vitamin C (Multi-Delyn Liquid) 5 ml PO DAILY [facility] Last Admin: 08/24/18 09:23 Dose: 5 ml Potassium Chloride (K-Dur 20 Meq Er Tab) 20 meq PO DAILY [facility] Stop: 08/26/18 14:16 Last Admin: 08/24/18 09:14 Dose: 20 meq - Labs Labs: 08/24/18 06:46 08/24/18 06:46 PT 15.6 SECONDS (9.7-12.2) H 08/21/18 05:59 INR 1.4 08/21/18 05:59 APTT 27.0 SECONDS (21-34) 08/21/18 05:59 Assessment and Plan - Assessment and Plan (Free Text) Assessment: 57 year old male admitted with alcohol withdrawals, diarrhea, seen and examined. Awake, alert, follows commands. No tremors or distress. Discussed with DR Moni Giraldo, plan to discharge to [facility] today to continue with PT/OT as tolerated.
[2018-08-24] MEDS ORDERED: EPOETIN ALFA 10,000 UNIT/ML ML SC ONE (18:04)
--- NOTE | 2018-08-24 18:23 | CP.PCM.PN ---
Objective - Vital Signs/Intake and Output Vital Signs (last 24 hours): Temp Pulse Resp BP Pulse Ox 97.2 F L 92 H 20 150/82 100 08/24/18 15:58 08/24/18 15:58 08/24/18 15:58 08/24/18 15:58 08/24/18 15:58 Intake and Output: 08/24/18 08/24/18 06:59 18:59 Intake Total 950 Balance 950 - Medications Medications: Current Medications Arformoterol Tartrate (Brovana) 15 mcg INH RQ12@1000,2200 [facility] Last Admin: 08/24/18 09:07 Dose: 15 mcg Budesonide (Pulmicort Respules) 0.25 mg INH RQ12 [facility] Last Admin: 08/24/18 09:07 Dose: 0.25 mg Famotidine (Pepcid) 20 mg PO BID [facility] Last Admin: 08/24/18 18:01 Dose: 20 mg Ferric Sodium Gluconate Complex (Ferrlecit) 125 mg IVPB DAILY [facility] Stop: 09/01/18 10:01 Last Admin: 08/24/18 09:15 Dose: 125 mg Guaifenesin/Dextromethorphan (Robitussin Dm) 10 ml PO Q4H PRN PRN Reason: Cough and congestion Last Admin: 08/24/18 13:42 Dose: 10 ml Metronidazole (Flagyl) 500 mg in 100 mls @ 100 mls/hr IVPB Q8H [facility]; Protocol Last Admin: 08/24/18 18:08 Dose: Not Given Insulin Human Regular (Novolin R) 0 unit SC ACHS [facility]; Protocol Last Admin: 08/24/18 16:30 Dose: Not Given Ipratropium [place] (Atrovent) 0.5 mg IH RQ6 [facility] Last Admin: 08/24/18 13:16 Dose: 0.5 mg Lorazepam (Ativan) 1 mg IVP Q4H PRN PRN Reason: Agitation Last Admin: 08/23/18 21:49 Dose: 1 mg Multivitamins/Vitamin C (Multi-Delyn Liquid) 5 ml PO DAILY [facility] Last Admin: 08/24/18 09:23 Dose: 5 ml Potassium Chloride (K-Dur 20 Meq Er Tab) 20 meq PO DAILY [facility] Stop: 08/26/18 14:16 Last Admin: 05/09/19 09:14 Dose: 20 meq - Labs Labs: 08/24/18 06:46 08/24/18 06:46 PT 15.6 SECONDS (9.7-12.2) H 08/21/18 05:59 INR 1.4 08/21/18 05:59 APTT 27.0 SECONDS (21-34) 08/21/18 05:59 Assessment and Plan (1) Acute renal failure Status: Acute (2) Hypernatremia Status: Resolved (3) Pleural effusion Status: Acute (4) Sepsis Status: Acute
--- NOTE | 2018-08-24 19:04 | CP.PCM.PN ---
Subjective - Date & Time of Evaluation Date of Evaluation: 08/24/18 Time of Evaluation: 08:00 Objective - Vital Signs/Intake and Output Vital Signs (last 24 hours): Temp Pulse Resp BP Pulse Ox 97.2 F L 92 H 20 150/82 100 08/24/18 15:58 08/24/18 15:58 08/24/18 15:58 08/24/18 15:58 08/24/18 15:58 - Medications Medications: Current Medications Arformoterol Tartrate (Brovana) 15 mcg INH RQ12@1000,2200 [facility] Last Admin: 08/24/18 09:07 Dose: 15 mcg Budesonide (Pulmicort Respules) 0.25 mg INH RQ12 [facility] Last Admin: 08/24/18 09:07 Dose: 0.25 mg Famotidine (Pepcid) 20 mg PO BID [facility] Last Admin: 08/24/18 18:01 Dose: 20 mg Ferric Sodium Gluconate Complex (Ferrlecit) 125 mg IVPB DAILY [facility] Stop: 09/01/18 10:01 Last Admin: 08/24/18 09:15 Dose: 125 mg Guaifenesin/Dextromethorphan (Robitussin Dm) 10 ml PO Q4H PRN PRN Reason: Cough and congestion Last Admin: 08/24/18 13:42 Dose: 10 ml Metronidazole (Flagyl) 500 mg in 100 mls @ 100 mls/hr IVPB Q8H [facility]; Protocol Last Admin: 08/24/18 18:08 Dose: Not Given Insulin Human Regular (Novolin R) 0 unit SC ACHS [facility]; Protocol Last Admin: 08/24/18 16:30 Dose: Not Given Ipratropium [place] (Atrovent) 0.5 mg IH RQ6 [facility] Last Admin: 08/24/18 13:16 Dose: 0.5 mg Lorazepam (Ativan) 1 mg IVP Q4H PRN PRN Reason: Agitation Last Admin: 08/23/18 21:49 Dose: 1 mg Multivitamins/Vitamin C (Multi-Delyn Liquid) 5 ml PO DAILY [facility] Last Admin: 08/24/18 09:23 Dose: 5 ml Potassium Chloride (K-Dur 20 Meq Er Tab) 20 meq PO DAILY [facility] Stop: 08/26/18 14:16 Last Admin: 08/24/18 09:14 Dose: 20 meq - Labs Labs: 08/24/18 06:46 08/24/18 06:46 PT 15.6 SECONDS (9.7-12.2) H 08/21/18 05:59 INR 1.4 08/21/18 05:59 APTT 27.0 SECONDS (21-34) 08/21/18 05:59 Assessment and Plan (1) Alcohol abuse with intoxication Status: Acute (2) Cirrhosis Status: Acute (3) Hydrocele of testis Status: Acute (4) Pneumonia Status: Acute (5) Sepsis Status: Acute (6) Subdural hemorrhage Status: Acute (7) Alcoholic cirrhosis Status: Chronic
== END 2018-08-24 20:25 | DRG 584 ==
LOC: C.ER 22:31 → C.9I 08-11 00:45 → C.6T 08-21 12:37 → C.3T 08-22 11:46
PROVIDERS: ADMIT Internal Medicine; ATTEND Internal Medicine
PROC: 0BH17EZ Insertion of Endotracheal Airway into Trachea, Via Natural or Artificial Opening (ICD-10-PCS; principal; 2018-08-14)
PROC: 5A1955Z Respiratory Ventilation, Greater than 96 Consecutive Hours (ICD-10-PCS; 2018-08-14)
DX: A40.9 Streptococcal sepsis, unspecified (principal); J18.1 Lobar pneumonia, unspecified organism; J96.91 Respiratory failure, unspecified with hypoxia; N17.0 Acute kidney failure with tubular necrosis; R65.21 Severe sepsis with septic shock; F10.231 Alcohol dependence with withdrawal delirium; I13.0 Hypertensive heart and chronic kidney disease with heart failure and stage 1 through stage 4 chronic kidney disease, or unspecified chronic kidney disease; I50.9 Heart failure, unspecified; E87.6 Hypokalemia; J44.0 Chronic obstructive pulmonary disease with (acute) lower respiratory infection; K70.30 Alcoholic cirrhosis of liver without ascites; N18.9 Chronic kidney disease, unspecified; E87.0 Hyperosmolality and hypernatremia; E87.1 Hypo-osmolality and hyponatremia; L03.116 Cellulitis of left lower limb; L03.115 Cellulitis of right lower limb; E86.0 Dehydration; I47.1 Supraventricular tachycardia; K21.9 Gastro-esophageal reflux disease without esophagitis; N35.919 Unspecified urethral stricture, male, unspecified site; N43.3 Hydrocele, unspecified; Z59.0 Homelessness; D50.9 Iron deficiency anemia, unspecified